=== PATIENT | female | born 1980 | race Caucasian/White ===

== ENCOUNTER → 2016-11-28 | Day surgery (SDC) | payer MEDICARE, MEDICAID ==
[~2016-11-28] VITALS: Ht 165.1 cm; Wt 72.6 kg
[~2016-11-28] MED LIST: /BACL20TA PO; /CARB20TAB PO; /PANT40TA; /PANT40TA PO; ACET500C PO; AMBI12.52 PO; B COTAB3 PO; BACL-67 PO; BUSP10TA78 PO; BUSP30TA PO; BUTA50TA PO; CALCTAB20 PO; CLON0.5T; CLON0.5T PO; COMP1TAB PO; CYCL10TA PO; CYMB60CA3 PO; DEPA500T2 PO; DICL50TA2 PO; DIVA250T PO; DIVA250T7 PO; FE T325T PO; FENT25PA TD; FENT50PA TD; FLEXERIL; FOLI1TAB2 PO; FOLI1TAB86 PO; FOLI5CAP; GABA-283 PO; GABA400C PO; GLYCOPYRROLATE INJ 0.2 MG/ML 2 ML VIAL As Ordered ONE; HYDR-3719 PO; HYDR200T3 PO; HYDR25T PO; HYDROmorphone HCL 2 MG/ML 1ML VIAL (J1170) As Ordered ONE; HYSI1TAB4 PO; IMIT100T PO; IRON65TA PO; KETO10TAB PO; KETOROLAC 30 MG/ML VIAL (J1885) As Ordered ONE; KETOROLAC 30 MG/ML VIAL (J1885) IV PRN; LEVOTAB10 PO; LIDO5DIS; LIDOCAINE 2% INJ 100 MG/5 ML SDV (FOR ANES.) As Ordered ONE; LIDOCAINE 2% W/ EPINEPHRINE 1.7 ML DENTAL INJ As Ordered ONE; LIDOCAINE 2% W/ EPINEPHRINE 1.7 ML DENTAL INJ XX ONE; LR 1,000 ML IV SCH; MAGN500T14 PO; MAXA5TAB10 PO; METH2.5T; METH2.5T PO; METH2.5TA PO; MIDAZOLAM INJ 2 MG/2 ML VIAL (J2250) As Ordered ONE; MIGR4SPR; MONT10TA2 PO; MULT1TAB18 PO; MULTTAB63 PO; NEOSTIGMINE 1MG/ML 5 ML SYRINGE (J2710) As Ordered ONE; NORCOBULK PO; NUCY50TA14 PO; OLAN2.5T PO; ONDA8TAB8 PO; ONDANSETRON 4MG/2ML VIAL (J2405) As Ordered ONE; ONDANSETRON 4MG/2ML VIAL (J2405) IV PRN; OXYC-208 PO; OXYC10TA12; OXYC15TA50; OXYC30TA4 PO; PANT40TA2 PO; PILO5TAB PO; PILO5TAB3 PO; PLAQ200T PO; PROC25SU24 PR; PROPOFOL 200 MG/20 ML VIAL As Ordered ONE; QUET30XR PO; RIZA10TA2 PO; ROBA750T4 PO; ROCURONIUM BROMIDE 50 MG/5 ML VIAL As Ordered ONE; SCOPOLAMINE 1.5 MG TRANSDERMAL As Ordered ONE; SCOPOLAMINE 1.5 MG TRANSDERMAL TOP ONE; SERO400T3 PO; SERT-138 PO; SING10TA31; SING5CHW PO; SUCR1SS PO; SUMA100T2 PO; SUMA5INJ SC; SUMA6INJ16 SC; SUMA6KIT SC; SYMB16INH INH; SYMB80AE; TEMA30CA PO; TIZA6CAP3 PO; TOPA100T PO; TOPA200T PO; TOPI200T4 PO; TOPI50TA4 PO; ULTR50TA PO; VALS40TA; VARE05TA PO; VENTAER; VITA100T PO; VITA100T98 PO; VITA8000 PO; VITAD1000T PO; XOPE1.252; XOPEAER IN; ZANT300T PO; ZOFR20TA PO; ZOFR8TAB PO; ZOLO100T PO; ZOLP12.515 PO; [UNRECOGNIZED DRUG - CODE] PO; [UNRECOGNIZED DRUG - CODE] PO; dexameTHASONE 4 MG/ML 1ML VIAL (J1100) As Ordered ONE; fentaNYL 100 MCG/2 ML INJECTION (J3010) As Ordered ONE; fentaNYL 100 MCG/2 ML INJECTION (J3010) IV PRN; fentaNYL 250 MCG/5 ML INJECTION (J3010) As Ordered ONE; flexeril PO; phenergan PO
[2016-11-28] MEDS: LR 1,000 ML IV SCH ×2 (10:54→12:19)
[2016-11-28] MEDS: fentaNYL 100 MCG/2 ML INJECTION (J3010) IV PRN ×4 (14:20→14:54)
[2016-11-28 16:45] VITALS: BP 140/68
--- NOTE | 2016-12-01 18:56 | RO ---
DATE OF PROCEDURE: 11/28/2016 PREOPERATIVE DIAGNOSIS: Nonrestorable dentition due to caries and periodontal disease of the listed teeth 3, 4, 8, 9, 10, 11, 12, 13, 14, 20, 21, 22, 23, 24, 26, and 27. POSTOPERATIVE DIAGNOSIS: Nonrestorable dentition due to caries and periodontal disease of the listed teeth 3, 4, 8, 9, 10, 11, 12, 13, 14, 20, 21, 22, 23, 24, 26, and 27. PROCEDURE PERFORMED: Surgical removal of the teeth as listed 3, 4, 8, 9, 10, 11, 12, 13, 14, 20, 21, 22, 23, 24, 26, and 27 and alveoloplasty as necessary. SURGEON: Perry Looney DDS DERMATOLOGY SALES REPRESENTATIVE: ANESTHESIA: General endotracheal. INDICATIONS: The patient is an approximately 36-year-old female with multiple medical history including fibromyalgia, back problems, rheumatoid arthritis, lupus, Sjogren's syndrome, past history of gastric bypass, and substance abuse. Patient is on multiple medications and is allergic to multiple medications as well. [place] necessary to have this procedure performed in the operating room under general anesthesia. DESCRIPTION OF PROCEDURE: Narrative summary: Patient was brought to the operating room (OR) per anesthesia and placed supine upon the OR table, wherein general endotracheal anesthesia was undertaken without difficulty. After usual sterile prep and drape for an intraoral procedure was performed, a throat pack was placed. 2% Xylocaine with 1:100,000 epinephrine was injected by way of infiltration fashion along the surgical sites, approximately 6 mL. Attention first turned to the mandible. Full-thickness mucoperiosteal incision carried from the left side to the right side, crossing the midline in the buccal sulcular gingiva. Full-thickness flap was then raised with a periosteal elevator, exposing the broken down and retained teeth (agree). The buccal bone was removed as necessary for access and to mobilize the teeth. Teeth were then elevated and delivered with lower forceps. The buccal alveoloplasty was performed as necessary. These sockets were lightly curetted, irrigated, and then closed #3-0 gut interrupted sutures, multiple. Attention then turned to the maxilla, teeth 3, 4, 8, 9, 10, 11, 12, 13, and 14. Bilateral #15 scalpel blade was used to make full-thickness incisions. With this, the buccal releases forward to the midline. Full-thickness flap was then raised with a periosteal elevator on the left side and in the area of teeth3 and 4 on the right side. Once the bone was exposed, buccal bone support was removed as necessary for access and to mobilize the broken down teeth. The teeth were then elevated and delivered with upper forceps. Buccal alveoloplasty was performed as necessary. The sockets were then lightly curetted. The areas were copiously irrigated with saline and then closed with Gelfoam as well as #3-0 gut continuous interlocking sutures. At the termination of the procedure, the oropharynx was inspected and found to be free of debris. There was no active heme. Throat pack was removed, and patient was awakened per anesthesia. The estimated blood loss (EBL) was approximately 100 mL. Fluids of 1200 mL in crystalloid solution. The teeth were sent for identification only to pathology. DISPOSITION: Patient was extubated in the operating room and taken to recovery room breathing spontaneously in stable condition.
== END | disposition home or self-care (01) ==
LOC: M SDC 10:10
PROVIDERS: ATTEND Dentist Oral and Maxillofacial Surgery
DX: K02.9 Dental caries, unspecified (principal); K06.9 Disorder of gingiva and edentulous alveolar ridge, unspecified; M79.7 Fibromyalgia; M32.10 Systemic lupus erythematosus, organ or system involvement unspecified; M35.00 Sjogren syndrome, unspecified; Z98.84 Bariatric surgery status; F17.210 Nicotine dependence, cigarettes, uncomplicated; K21.9 Gastro-esophageal reflux disease without esophagitis; J45.909 Unspecified asthma, uncomplicated; F41.9 Anxiety disorder, unspecified; F31.9 Bipolar disorder, unspecified
CPT/HCPCS: 88300; D7210; D7311; D9223; J1100; J1885; J2250; J2405; J2710; J3010

== ENCOUNTER 2017-01-19 14:56 | Emergency (ER) | payer MEDICARE, MEDICAID ==
[~2017-01-19] VITALS: Ht 165.1 cm; Wt 66.7 kg
[~2017-01-19 14:56] MED LIST changes: -GLYCOPYRROLATE INJ 0.2 MG/ML 2 ML VIAL As Ordered ONE; -HYDROmorphone HCL 2 MG/ML 1ML VIAL (J1170) As Ordered ONE; -KETOROLAC 30 MG/ML VIAL (J1885) As Ordered ONE; -KETOROLAC 30 MG/ML VIAL (J1885) IV PRN; -LIDOCAINE 2% INJ 100 MG/5 ML SDV (FOR ANES.) As Ordered ONE; -LIDOCAINE 2% W/ EPINEPHRINE 1.7 ML DENTAL INJ As Ordered ONE; -LIDOCAINE 2% W/ EPINEPHRINE 1.7 ML DENTAL INJ XX ONE; -LR 1,000 ML IV SCH; -MIDAZOLAM INJ 2 MG/2 ML VIAL (J2250) As Ordered ONE; -NEOSTIGMINE 1MG/ML 5 ML SYRINGE (J2710) As Ordered ONE; -ONDANSETRON 4MG/2ML VIAL (J2405) As Ordered ONE; -ONDANSETRON 4MG/2ML VIAL (J2405) IV PRN; -PROPOFOL 200 MG/20 ML VIAL As Ordered ONE; -ROCURONIUM BROMIDE 50 MG/5 ML VIAL As Ordered ONE; -SCOPOLAMINE 1.5 MG TRANSDERMAL As Ordered ONE; -SCOPOLAMINE 1.5 MG TRANSDERMAL TOP ONE; -dexameTHASONE 4 MG/ML 1ML VIAL (J1100) As Ordered ONE; -fentaNYL 100 MCG/2 ML INJECTION (J3010) As Ordered ONE; -fentaNYL 100 MCG/2 ML INJECTION (J3010) IV PRN; -fentaNYL 250 MCG/5 ML INJECTION (J3010) As Ordered ONE
[2017-01-19 15:00] VITALS: BP_SYST 121
[2017-01-19] MEDS ORDERED: HYDRO50TAB GT (16:23)
[2017-01-19 17:00] LABS: MEAN CORPUSCULAR HEMOGLOBIN 32.2 pg (27.0-33.0); MEAN CORPUSCULAR HGB CONC 32.8 g/dl (32.0-36.5); MEAN CORPUSCULAR VOLUME 98.1 fl (80.0-96.0); RED CELL DISTRIBUTION WIDTH 14.2 % (11.5-14.5); WHITE BLOOD COUNT 5.8 K/mm3 (4.0-10.0)
[2017-01-19 17:39] LABS: ALBUMIN 2.1 GM/DL (3.2-5.2); ALBUMIN/GLOBULIN RATIO 0.95 (1.00-1.93); ALKALINE PHOSPHATASE 111 U/L (45-117); ALT/SGPT 23 U/L (12-78); ANION GAP 5 MEQ/L (8-16); AST/SGOT 21 U/L (15-37); BILIRUBIN,DIRECT 0.1 MG/DL (0.0-0.2); BILIRUBIN,TOTAL 0.4 MG/DL (0.2-1.0); BLOOD UREA NITROGEN 9 MG/DL (7-18); CALCIUM LEVEL 7.5 MG/DL (8.5-10.1); CARBON DIOXIDE LEVEL 28 MEQ/L (21-32); CHLORIDE LEVEL 108 MEQ/L (98-107); CREATININE FOR GFR 0.78 MG/DL (0.55-1.02); GLOMERULAR FILTRATION RATE > 60.0 (>60); GLUCOSE, FASTING 98 MG/DL (70-105); POTASSIUM SERUM 4.2 MEQ/L (3.5-5.1); SODIUM LEVEL 141 MEQ/L (136-145); TOTAL PROTEIN 4.3 GM/DL (6.4-8.2)
[2017-01-19 18:28] LABS: METHADONE URINE NEGATIVE (NEGATIVE)
== END 2017-01-19 18:27 | disposition home or self-care (01) ==
LOC: M ED 17:51
DX: R44.3 Hallucinations, unspecified (principal); F31.9 Bipolar disorder, unspecified; M32.9 Systemic lupus erythematosus, unspecified; M79.7 Fibromyalgia; M19.90 Unspecified osteoarthritis, unspecified site; Z98.84 Bariatric surgery status; Z79.899 Other long term (current) drug therapy
CPT/HCPCS: 36415; 80048; 80076; 80165; 80183; 80306; 84443; 85027; 99285; G0480

== ENCOUNTER 2017-02-11 17:28 | Inpatient (IN) | payer MEDICARE, MEDICAID ==
[~2017-02-11] VITALS: Ht 165.1 cm; Wt 71.2 kg
[~2017-02-11 17:28] MED LIST changes: +HYDRO50TAB GT
[2017-02-11] MEDS ORDERED: NS 1,000 ML IV ONE (18:15)
[2017-02-11 18:33] LABS: OSMOLALITY SERUM 300 MOSM/KG (275-295)
[2017-02-11 18:41] LABS: MEAN CORPUSCULAR HEMOGLOBIN 31.6 pg (27.0-33.0); MEAN CORPUSCULAR HGB CONC 32.6 g/dl (32.0-36.5); PLATELET COUNT, AUTOMATED 418 k/mm3 (150-450); RED CELL DISTRIBUTION WIDTH 14.4 % (11.5-14.5); WHITE BLOOD COUNT 13.2 K/mm3 (4.0-10.0)
[2017-02-11 18:42] LABS: ALBUMIN 1.7 GM/DL (3.2-5.2); ALBUMIN/GLOBULIN RATIO 0.49 (1.00-1.93); ANION GAP 12 MEQ/L (8-16); BILIRUBIN,DIRECT 0.9 MG/DL (0.0-0.2); BILIRUBIN,TOTAL 1.4 MG/DL (0.2-1.0); BLOOD UREA NITROGEN 17 MG/DL (7-18); CALCIUM LEVEL 7.6 MG/DL (8.5-10.1); CARBON DIOXIDE LEVEL 24 MEQ/L (21-32); CHLORIDE LEVEL 111 MEQ/L (98-107); GLOMERULAR FILTRATION RATE 16.7 (>60); GLUCOSE, FASTING 91 MG/DL (70-105); POTASSIUM SERUM 3.7 MEQ/L (3.5-5.1); SODIUM LEVEL 147 MEQ/L (136-145); TOTAL PROTEIN 5.2 GM/DL (6.4-8.2)
--- NOTE | 2017-02-11 18:44 | REP ---
Clinical: Altered mental status . Comparison: None . Findings: The ventricles, sulci, and cisterns are normal in position and appearance. Gong-white differentiation is maintained. No acute intracranial hemorrhage, mass/mass effect, pathology or trauma/injury. No evidence for acute infarction. No extra-axial fluid collection. Calvarium is intact. Paranasal sinuses and mastoid air cells are clear. Impression: Normal noncontrast head CT. No evidence for acute intracranial pathology or trauma/injury. Signed by Jony Ley MD 02/11/2017 06:36 P
[2017-02-11 18:55] LABS: ALKALINE PHOSPHATASE 301 U/L (45-117); ALT/SGPT 1245 U/L (12-78)
[2017-02-11 18:58] LABS: VENOUS BASE EXCESS -4.2 (-2.0-2.0); VENOUS O2 SATURATION 69.3 % (60.0-80.0); VENOUS PARTIAL PRESSURE CO2 38.2 mmHg (38.0-50.0); VENOUS PARTIAL PRESSURE O2 41.4 mmHg (30.0-50.0); VENOUS STANDARD HCO3 20.5 MEQ/L
[2017-02-11 18:59] LABS: AST/SGOT 2234 U/L (15-37)
--- NOTE | 2017-02-11 19:22 | REP ---
Clinical: Altered mental status . Comparison: None . Findings: The mediastinum and cardiac silhouette are stable and within normal limits for portable technique. The lung rios are clear without acute consolidation, effusion, or pneumothorax. Skeletal structures are intact. Impression: Normal portable chest x-ray Signed by Jony Ley MD 02/11/2017 07:13 P
[2017-02-11 19:29] LABS: EOSINOPHILS 1 % (0-5)
[2017-02-11 19:30] LABS: ANISOCYTOSIS 1+; HYPOCHROMASIA 1+
[2017-02-11 19:31] LABS: TOXIC GRANULATION 1+
[2017-02-11] MEDS ORDERED: LEVOTAB10 PO (23:14)
[2017-02-11] MEDS ORDERED: CYMB60CA3 PO (23:14)
[2017-02-11] MEDS ORDERED: TOPI50TA4 PO (23:14)
[2017-02-11] MEDS ORDERED: NAPR500T2 PO (23:14)
[2017-02-11] MEDS ORDERED: DIVA500T9 PO (23:14)
[2017-02-11] MEDS ORDERED: ONDA1TAB16 PO (23:14)
[2017-02-11] MEDS ORDERED: ZOLP12.515 PO (23:14)
[2017-02-11] MEDS ORDERED: FENT50PA TD (23:14)
[2017-02-11] MEDS ORDERED: PANT40TA2 PO (23:14)
[2017-02-11] MEDS ORDERED: HYDR200T3 PO (23:14)
[2017-02-11] MEDS ORDERED: PROM25TA PO (23:14)
[2017-02-11] MEDS ORDERED: QUET300T49 PO (23:14)
[2017-02-11] MEDS ORDERED: RANI300T PO (23:14)
[2017-02-11] MEDS ORDERED: [UNRECOGNIZED DRUG - CODE] PO (23:14)
[2017-02-11] MEDS ORDERED: MIGR4SPR (23:14)
[2017-02-11] MEDS ORDERED: MONT10TA2 PO (23:14)
[2017-02-11] MEDS ORDERED: METH2.5TA PO (23:14)
[2017-02-11] MEDS ORDERED: GABA-283 PO (23:14)
[2017-02-11] MEDS ORDERED: ROBA750T4 PO (23:14)
[2017-02-11] MEDS ORDERED: HYSI1TAB4 PO (23:14)
[2017-02-11] MEDS ORDERED: HYDROXYZINE PO (23:14)
[2017-02-11] MEDS ORDERED: PILO5TAB3 PO (23:14)
[2017-02-12] VITALS (8 sets, daily range): BP systolic 90–115; BP diastolic 50–66
--- NOTE | 2017-02-12 01:00 | REPUSA ---
CLINICAL HISTORY: Medicare, colic. TECHNIQUE: Multiple axial CT images were obtained through the abdomen and pelvis. Images were obtain ed before and after oral contrast administration. Oral contrast material was not administered COMMENTS: There is diffuse hepatic hypoattenuation compatible with fatty infiltration. The spleen is normal. Status post cholecystectomy. Surgical clips are present in the left upper quadrant and epigastric re gion. The pancreas is of normal contour and attenuation characteristics. There is no evidence of ad renal mass. Both kidneys demonstrate prompt and equal nephrograms. The kidneys are normal in size, shape and con figuration. There is no evidence of renal or ureteral mass. No renal or ureteral calculi are identi fied. There is no hydroureter or hydronephrosis. No evidence for appendicitis. There is circumferential wall thickening noted involving loops of jeju num and the ileum compatible with enteritis. No evidence for small or large bowel obstruction. Ther e is no evidence of abdominal ascites or lymphadenopathy. There is no evidence of intrinsic or extrinsic bladder mass. There is no pelvic ascites or lymphaden opathy. There is patchy ground-glass opacities with mosaic attenuation noted within left and right lower lobe s. This may represent an unspecific pneumonitis versus related to hypersensitivity pneumonitis. Sma ll pericardial effusion is seen. The bony structures are free of lytic or blastic lesions. IMPRESSION: 1. There is diffuse hepatic hypoattenuation compatible with fatty infiltration. 2. Status post cholecystectomy. Surgical clips are present in the left upper quadrant and epigastri c region. 3. There is patchy ground-glass opacities with mosaic attenuation noted within left and right lower lobes. This may represent an unspecific pneumonitis versus related to hypersensitivity pneumonitis. 4. Small pericardial effusion is seen. 5. There is circumferential wall thickening noted involving loops of jejunum and the ileum compatibl e with enteritis. Thank you for your kind referral of this patient. We appreciate the opportunity to participate in th is patient's care.
[2017-02-12] MEDS ORDERED: ALBUTEROL SULFATE 2.5 MG/0.5 ML INH NEB SOLN NEB PRN (02:30)
[2017-02-12] MEDS ORDERED: D5W/0.45% SODIUM CHLORIDE 1,000 ML IV SCH (02:30)
[2017-02-12] MEDS ORDERED: NS 0.45% 1,000 ML IV ONE (02:30)
[2017-02-12] MEDS ORDERED: VANCOMYCIN HCL 750 MG, VIAL MATE ADAPTER 1 EACH in D5W 250 ML IV ONE (02:30)
[2017-02-12] MEDS ORDERED: SALA1TAB PO (02:45)
[2017-02-12] MEDS ORDERED: PROM125TA PO (02:45)
[2017-02-12] MEDS ORDERED: LORA-376 PO (02:45)
[2017-02-12] MEDS ORDERED: SUCR1SS PO (02:45)
[2017-02-12] MEDS ORDERED: NAPR250T2 PO ×2 (02:45)
[2017-02-12] MEDS ORDERED: ZOLP12.515 PO (02:45)
[2017-02-12] MEDS ORDERED: HYDR200T3 PO (02:45)
[2017-02-12] MEDS ORDERED: TOPI50TA4 PO (02:45)
[2017-02-12] MEDS ORDERED: B-2100TA PO (02:45)
[2017-02-12] MEDS ORDERED: PANT40TA2 PO (02:45)
[2017-02-12] MEDS ORDERED: METH75TA PO (02:45)
[2017-02-12] MEDS ORDERED: LEVOTAB10 PO (02:45)
[2017-02-12] MEDS ORDERED: RANI300T PO (02:45)
[2017-02-12] MEDS ORDERED: VITMTA PO (02:45)
[2017-02-12] MEDS ORDERED: HYSI1TAB4 PO (02:45)
[2017-02-12] MEDS ORDERED: QUET300T49 PO (02:45)
[2017-02-12] MEDS ORDERED: GABA-283 PO (02:45)
[2017-02-12] MEDS ORDERED: FOLI1TAB2 PO (02:45)
[2017-02-12] MEDS ORDERED: B-12100T2 PO (02:45)
[2017-02-12] MEDS ORDERED: DULO1CAP3 PO (02:45)
[2017-02-12 03:13] LABS: INR 1.48
--- NOTE | 2017-02-12 03:30 | REPUSA ---
CLINICAL HISTORY: Elevated creatinine. TECHNIQUE: Realtime sonographic images were obtained in multiple projections. COMMENTS: The right kidney measures 11.7x5.5x5.3 cm and the left kidney measures 10.3x5.1x5.5 cm. Both kidneys are free of hydronephrosis. There is no evidence of solid or cystic mass. There is no perinephric flu id. Bilateral tiny non-shadowing echogenic foci in the kidneys. IMPRESSION: Bilateral nonobstructing nephrolithiasis or cysts and calcifications of the renal vessels. No evidence of hydronephrosis. Thank you for your kind referral of this patient.
[2017-02-12 03:45] LABS: ALBUMIN 1.6 GM/DL (3.2-5.2); ALBUMIN/GLOBULIN RATIO 0.59 (1.00-1.93); ALT/SGPT 996 U/L (12-78); ANION GAP 13 MEQ/L (8-16); BILIRUBIN,TOTAL 1.2 MG/DL (0.2-1.0); BLOOD UREA NITROGEN 19 MG/DL (7-18); CARBON DIOXIDE LEVEL 21 MEQ/L (21-32); CHLORIDE LEVEL 115 MEQ/L (98-107); CREATININE FOR GFR 2.68 MG/DL (0.55-1.02); GLOMERULAR FILTRATION RATE 21.2 (>60); GLUCOSE, FASTING 94 MG/DL (70-105); PERCENT SATURATION 96.7 % (13.2-37.4); POTASSIUM SERUM 4.5 MEQ/L (3.5-5.1); SODIUM LEVEL 149 MEQ/L (136-145); TOTAL IRON BINDING CAPACITY 60 UG/DL (250-450); TOTAL PROTEIN 4.3 GM/DL (6.4-8.2)
--- NOTE | 2017-02-12 03:47 | PHACANCOPD ---
PHARMACY VANCOMYCIN DOSING Pt Demographics Demographics Patient Age:36 , Weight:66.670 , Gender: female Adjusted Body Weight Date: 02/12/17, Adjusted Body Weight: [61] Kg Events Past 24 Hours Events Past 24 Hours: NO: Change in CrCl, Dialysis, Diuretic Therapy, Elevation in WBC, Fever, Other, Pending Diagnostics, Pending Procedures Vancomycin Vancomycin Target Ranges: 15-20 mcg/ml Vancomycin Load Y/N: Yes Load Dose Date Time Vancomycin Load Dose: 1000MG Date: 02-12 Time: 0600 Vancomycin Dose Date: 02/12/17. Current Vancomycin Dose: [750MG Q24H] Intermittent Dosing?: No Labs Labs Item Value Date Time White Blood Count 13.2 K/mm3 H 02/11/17 1809 Creatinine 3.30 MG/DL H 02/11/17 1809 Blood Urea Nitrogen 17 MG/DL 02/11/17 1809 Vital Signs Label Value Date Time Patient Temperature 99.1 degrees F 02/12/17 0306 Temperature Source Temporal 02/12/17 0306 Micro Microbiology 02/12/17 Blood Culture, Received Pending 02/12/17 Blood Culture, Received Pending Creatinine Clearance Date:02/12/17. Creatinine Clearance: [22]. Pending Labs Trough 04-01 @0800 Assessment and Plan Maintaining Current Dose?: Yes Reason for dose change: No Dose Change Pharmacist Note Pharmacist Note Date: 02/12/17. Pharmacist note:Patient doses at 750mg q24h with a trough ordered for 04-01 @08. Will continue to monitor and make adjustments as needed. [facility] Feb 12, 2017 03:47
[2017-02-12 03:49] LABS: ALKALINE PHOSPHATASE 260 U/L (45-117); AST/SGOT 1218 U/L (15-37); FERRITIN 1704 NG/ML (8-252)
[2017-02-12] MEDS ORDERED: PIPERACILLIN/TAZOBACTAM SOD 2.25 GM in D5W MINI-BAG PLUS 50 ML IV SCH (04:00)
[2017-02-12] MEDS ORDERED: D5W 1,000 ML IV SCH (05:00)
[2017-02-12 05:25] LABS: INR 1.41
[2017-02-12] MEDS: HEPARIN SOD (PORCINE) 5000 UNITS/ML VIAL SQ SCH ×3 (05:37→21:46)
[2017-02-12 05:38] LABS: ALBUMIN 1.4 GM/DL (3.2-5.2); ALBUMIN/GLOBULIN RATIO 0.41 (1.00-1.93); BILIRUBIN,TOTAL 1.1 MG/DL (0.2-1.0); CALCIUM LEVEL 7.1 MG/DL (8.5-10.1); CREATININE FOR GFR 2.42 MG/DL (0.55-1.02); GLOMERULAR FILTRATION RATE 23.8 (>60); TOTAL PROTEIN 4.8 GM/DL (6.4-8.2)
[2017-02-12] MEDS ORDERED: VANCOMYCIN HCL 1,000 MG, VIAL MATE ADAPTER 1 EACH in D5W 250 ML IV ONE (06:00)
[2017-02-12 06:09] LABS: BASO % 0.2 % (0.0-1.0); EOS # 0.2 K/mm3 (0.0-0.50); EOS % 1.4 % (0.0-3.0); LARGE UNSTAINED CELL # 0.1 K/mm3 (0.0-0.4); LARGE UNSTAINED CELL % 0.9 % (0.0-4.0); LYMPH # 1.7 K/mm3 (1.5-4.5); LYMPH % 10.6 % (24.0-44.0); MEAN CORPUSCULAR HEMOGLOBIN 31.2 pg (27.0-33.0); MEAN CORPUSCULAR HGB CONC 31.7 g/dl (32.0-36.5); MEAN CORPUSCULAR VOLUME 98.3 fl (80.0-96.0); MONO # 0.4 K/mm3 (0.0-0.8); MONO % 2.6 % (0.0-5.0); NEUTROPHILS # 13.3 K/mm3 (1.8-7.7); NEUTROPHILS % 84.3 % (36.0-66.0); PLATELET COUNT, AUTOMATED 337 k/mm3 (150-450); RED CELL DISTRIBUTION WIDTH 14.7 % (11.5-14.5); WHITE BLOOD COUNT 15.8 K/mm3 (4.0-10.0)
--- NOTE | 2017-02-12 07:26 | ECGEPIP ---
Stationary ECG Study [facility] - ED Test Date: 2017-02-11 Pat Name: DESIRAE NAVARRO Department: Room: [place] [address] Gender: F Contact Lens Fitter: NOAH : 1980 Requested By: Ayse Herrera Order Number: [id number] Reading MD: Ayse Herrera Measurements Intervals [place] Rate: 121 P: 62 [place]: 140 QRS: 74 QRSD: 85 T: 57 QT: 338 QTc: 481 Interpretive Statements SINUS TACHYCARDIA NONSPECIFIC ST & T-WAVE ABNORMALITY ABNORMAL RHYTHM ECG NO PRIOR FOR COMPARISON Electronically Signed On 02-12-2017 7:26:09 EDT by Ayse Herrera
[2017-02-12 09:01] LABS: FOLATE 16.6 NG/ML; VITAMIN B12 LEVEL 1562 PG/ML
[2017-02-12] MEDS: MEROPENEM INJ 500 MG in D5W MINI-BAG PLUS 100 ML IV SCH ×2 (09:23→19:31)
--- NOTE | 2017-02-12 09:27 | REP ---
CT NECK WITHOUT CONTRAST: HISTORY: Anterior neck pain. The naso-, kaleigh- and hypopharynx, larynx and subglottic trachea are normal in appearance. The salivary and thyroid glands are normal Small lymph nodes less than 1 cm in size are present in the posterior triangle, submandibular and submental areas. Patchy densities are present in the upper lobes, consistent with atelectasis or infiltrates. The cervical spine is normal in appearance. The visualized sinuses are clear. IMPRESSION: 1. There is no neck mass or adenopathy. 2. There are patchy densities in the upper lobes, consistent with atelectasis or infiltrates. Signed by Alfredo Tamayo MD 02/12/2017 09:33 A
[2017-02-12] MEDS: PANTOPRAZOLE 40MG TAB (PROTONIX) PO SCH ×2 (09:53→21:44)
[2017-02-12 10:38] LABS: BILIRUBIN,DIRECT 0.7 MG/DL (0.0-0.2)
[2017-02-12] MEDS: D5W/0.45% SODIUM CHLORIDE 1,000 ML IV SCH ×2 (14:29→19:31)
--- NOTE | 2017-02-12 19:23 | HPE ---
DATE OF ADMISSION: 02/12/2017 Time patient seen: 2 a.m. PRIMARY CARE PROVIDER: Dr. Luciano Farah, [place]. Orthopedic Rn: [place], telephone [phone]. The patient also sees Dr. Batista at the pain clinic. The patient also sees Dr. Cuello who did the gastric bypass. The patient also saw Dr. Ayala back in 2016 for history of methicillin resistant Staphylococcus aureus (MRSA). CHIEF COMPLAINT: Altered mental status. HISTORY OF PRESENT ILLNESS: 36-year-old female with past medical history of lupus, rheumatoid arthritis, Sjogren's syndrome, asthma, migraine headache, anxiety, depression sees psychiatrist, history of gastric bypass, right hip infection with MRSA, pressure ulcers, fibromyalgia sees the pain clinic, and malnutrition presented with altered mental status. The patient was unable to provide any history due to the patient was very confused and does not follow commands. The patient does; however, know the year and where she is at and her full name. Most of the history was obtained from calling the patient's father. According to the patient's father she was okay until two months ago and she started refusing to eat food and has been more somnolent. She also was talking to an empty room and according to the father the patient slept for the past 3-4 days and she had a similar episode a year ago at [facility]; however, he could not go into details. On questioning the patient was only answering yes to everything. However, the patient was able to state that she has some sore throat and some abdominal pain. ALLERGIES: The patient has multiple allergies including KEFLEX which gives her hives and a rash, ERYTHROMYCIN gives her hives and a rash, BACTRIM hives and a rash, BUPROPION makes her nauseous, uses ESZOPICLONE with no allergy, LATEX gives her hives, VENLAFAXINE gives her hives and a rash, LISINOPRIL gives her a rash and SUMATRIPTAN makes her vomit, so does TRIMETHOPRIM. She also has allergy OMEPRAZOLE and METOCLOPRAMIDE with unknown allergy. HOME MEDICATIONS : - B12 100 mcg by mouth daily - Migranal nasal spray as needed - duloxetine 120 mg by mouth nightly - fentanyl 50 mcg one patch topically every 48 hours as needed - folic acid 2 mg by mouth daily - gabapentin 800 mg by mouth twice a day - hydrocodone 16 mg by mouth nightly - hydroxychloroquine 400 mg by mouth nightly - levocetirizine 5 mg by mouth nightly - lorazepam 0.5 mg by mouth twice a day as needed - methocarbamol 1500 mg by mouth twice a day - methotrexate 2.5 mg three tablets by mouth weekly - misoprostol 100 mcg per tablet by mouth twice a day - montelukast one tablet by mouth daily - multivitamin one tablet by mouth twice a day - Naproxen 250 mg one tablet by mouth daily - Naproxen 500 mg one tablet nightly - pantoprazole sodium 40 mg by mouth twice a day - pilocarpine 5 mg by mouth three times a day - promethazine 12.5 mg one tablet by mouth twice a day - quetiapine 600 mg one tablet by mouth nightly - amantadine one tablet by mouth daily - B2 200 mg one tablet by mouth daily - Carate 10 mL by mouth before meals and after meals - topiramate 50 mg one tablet twice a day - Ambien 12.5 mg by mouth nightly PAST MEDICAL HISTORY: 1. Lupus. 2. Rheumatoid arthritis. 3. Sjogren's syndrome. 4. Asthma. 5. Migraine headaches. 6. Anxiety, depression. 7. History of gastric bypass. 8. History of right hip infection with MRSA. 9. Pressure ulcers. 10. Fibromyalgia. 11. Malnutrition. PAST SURGICAL HISTORY: 1. Gastric bypass in 2011. 2. Tonsillectomy and adenoidectomy when the patient was 9 years old. 3. Hysterectomy 2009. SOCIAL HISTORY: The patient lives at home with her father. According to her father at baseline she was able to ambulate on her own two months ago. However, she has become more somnolent and refuses to eat for the past two months. The patient was unable to answer if she was smoking, drinking or using any recreational drugs. However, according to the chart from [facility], in April 2016 the patient used to be smoking at that time about 11 to 20 cigarettes a day. The patient denies drinking. FAMILY HISTORY: According to the patient's chart from Dr. Ayala's office in April 2016 the patient's father had Grave's disease and thyroid removal. Mother from lung cancer. REVIEW OF SYSTEMS: Could not be done due to the patient was confused and does not answer questions appropriately. PHYSICAL EXAMINATION: VITAL SIGNS: Temperature 99.1, pulse 108, respirations 18, blood pressure 87/53, oxygen saturation 97% on room air. GENERAL: The patient is a cachectic looking young female who looks much older than her age who was confused; however, was awake, alert and oriented to person, place and the year. She was unable to follow commands and was only answering yes to most of the questions. HEENT: Normocephalic atraumatic. Extraocular muscles intact. Moist mucous membranes. NECK: Supple, no lymphadenopathy. The patient does have pain on palpation of the right side of her anterior neck. CARDIOVASCULAR: Regular rate and rhythm, S1,S2, 2/6 systolic heart murmur. LUNGS: Diffuse wheezing bilaterally with some rhonchi. ABDOMEN: Tender to palpation diffusely more in the right lower quadrant; however, no peritoneal signs, no ecchymosis. Positive bowel sounds. EXTREMITIES: No edema, clubbing or cyanosis. SKIN: Warm and dry. NEURO: Cranial nerve II-XII could not be fully assessed due to patient does not follow commands. The rest of the neurological examination could not be performed due to the patient does not follow commands. LAB DATA: WBC 13.2, hemoglobin 9.7, hematocrit 29.7, platelet count of 418, MCV 97, ESR currently pending. Sodium 147, potassium 3.7, chloride 101, bicarbonate 24, anion gap 12, BUN 17, creatinine 3.3, GFR was only 16.7, fasting glucose 91, osmolality of the serum 300 appears to be elevated, lactic acid 1.9, calcium 7.6, phosphorus is pending, magnesium 2. Iron panel, B12 and folate are pending. Total bilirubin 1.4, direct bilirubin 0.9, AST 2,234, ALT 1, 245, alkaline phosphatase 301, ammonia level 24. Total CK elevated at 142, CK MB 12.1, troponin less than 0.02. Total protein 5.2, albumin 1.7 was low, B12 pending, folate pending, TSH 0.877. The patient's toxicology screen shows alcohol less than 0.003. Valproic acid was 4.3, acetaminophen 6.7. The patient had venous blood gas (VBG) in the emergency room shows pH of 7.355, PCO2 38.2, PO2 41.4, oxygen saturation was 69.3% in venous blood with base excess of negative 4.2, appears to be acidotic, PT INR is currently pending. The patient's hepatitis panel is pending. Glucose was 91, blood culture times two is pending. The patient had a CT of the head in the emergency room showing normal noncontrast head CT, no evidence of acute intracranial pathology. The patient also had a portable chest x-ray in the emergency room shows normal portable chest x-ray. The patient also had a CT of the abdomen and pelvis in the emergency department shows diffuse hepatic hypoattentuation compatible with fatty infiltrate, status post cholecystectomy, also patchy ground-glass opacity with mosaic attentuation noted within the left and right lower lobes of the lung may represent as specific pneumonitis versus related to hypersensitivity pneumonitis. Also, the patient has a small pericardial effusion. In addition, there is a circumferential wall thickening noted involving loops of jejunum and also the ileum compatible with enteritis. ASSESSMENT AND PLAN: 36-year-old female with past medical history of lupus, rheumatoid arthritis, Sjogren's syndrome, migraine headaches, asthma, anxiety depression sees a psychiatrist, history of gastric bypass due to obesity, right hip infection with methicillin resistant Staphylococcus aureus (MRSA), pressure ulcers, fibromyalgia follows in the pain clinic, malnutrition, who presented with: 1. Altered mental status, etiology unclear possibly multifactorial. The patient did have a reduced by mouth intake for the past 1-2 months. In addition the patient does appear to be polypharmacy and takes medication for lupus and rheumatoid arthritis including methotrexate and hydroxychloroquine which were both hepatotoxic and nephrotoxic. At this point the patient appears to be having hepatitis of unknown etiology and also acute kidney injury of unknown etiology. Urine toxicology screen has not come back yet. At this point we presume it is secondary to the patient's home medication combined with prerenal azotemia. Will hold the patient's medications for now due to renal and hepatotoxicity and will start the patient on a half normal saline bolus of 1 liter and continue the patient on D5 1/2 normal starting at the rate of 150 mL per hour due to poor by mouth intake for the past two months. At the same time will obtain a renal ultrasound, hepatitis panel and also obtain blood culture. The patient does have a mild leukocytosis with WBC of 13.2. In addition, the patient has mental status change, which gives the patient 2/3 for SOFA score for sepsis. We have started the patient on empiric antibiotics vancomycin and Zosyn which were renally dosed and continue to monitor the patient. Will also obtain an electroencephalogram (EEG) due to altered mental status and the patient was somnolent for 3-4 days straight at home. 2. Hypernatremia with sodium at 147. The patient's osmolality was 300. At this point it is likely secondary to prerenal azotemia. The patient has been given half normal saline 1 liter bolus. Will continue to trend patient's sodium. 3. Acute kidney injury with creatinine of 3.3. The patient's baseline is at 0.7. Therefore, likely represents acute kidney injury. Renal ultrasound has been ordered to rule out obstruction. At this point acute kidney injury is likely secondary to prerenal azotemia due to poor by mouth intake combined with taking her home medications which were renal toxic. At this point will hold all renal toxic agents, continue intravenous (IV) fluid, continue to trend the patient's creatinine and followup with renal ultrasound. 4. Acute hepatitis etiology unclear. The patient's AST is 2234, ALT 1245. Tox screen is currently incomplete; however, the patient does not have elevated alcohol, acetaminophen or valproic acid. At this point will wait for the patient's urine drug screen. Hepatitis panel is also pending. PT INR is also pending. The patient's CT of the abdomen and pelvis however does show fatty infiltrate of the liver. At this point will hold all hepatotoxic agents and continue to monitor, continue empiric antibiotics for sepsis. At this point appears to be possible severe sepsis due to blood pressure has been soft. 5. Abdominal pain. CT of the abdomen and pelvis also shows possible enteritis. At this point will empirically cover the patient with vancomycin and Zosyn due to severe sepsis and continue to monitor patient. 6. Abnormal lung sounds with bilateral wheezing. Also CT finding shows specific pneumonitis versus hypersensitivity pneumonitis. In addition the patient has been coughing. Continue empiric antibiotics. Will also obtain respiratory panel and start the patient on nebulizer due to history of asthma as well and will start oxygen if needed. 7. History of asthma. Continue nebulizer every four hours as needed . 8. History of lupus and rheumatoid arthritis, as well as Sjogren's syndrome. Follows with rheumatology in Dr Itz. Neno. Her phone number is [phone]. Will continue to monitor the patient. The patient's baseline is unclear at this point due to patient is very confused and father cannot provide a complete history. 9. History of migraine headaches. Will continue to hold the patient's medications due to patient is nothing by mouth currently due to altered mental status. 10. Anxiety, depression. Hold home medications due to the patient is nothing by mouth. 11. History of gastric bypass. We will check B12 and folate. Will actually start the patient on supplementation once the patient is able to tolerate by mouth and less confused. 12. History of right hip infection with methicillin resistant Staphylococcus aureus (MRSA). Saw Dr. Ayala back in 2016. At this point will empirically start the patient on vancomycin and Zosyn, also vancomycin was to cover history of MRSA. Continue to monitor the patient, followup with blood culture, respiratory panel, urinalysis and urine culture. 13. History of fibromyalgia. Follows in pain clinic as an outpatient. The patient is nothing by mouth due to altered mental status. Continue to monitor. 14. Malnutrition with a albumin level 1.7. Continue to monitor. Will actually need to start supplementation once the patient is less confused and able to tolerate by mouth. 15. Deep venous thrombosis (DVT): Sequential compression device and thromboembolic deterrent stockings as well as heparin 5000 units subcutaneously every 8 hours. DISPOSITION: The patient has altered mental status with unclear etiology, as well as acute kidney injury and hepatitis. At this point will continue to monitor the patient, start the patient on empiric antibiotics due to severe sepsis. Rule out etiologies for patient's acute kidney injury and acute hepatitis. The patient is likely secondary to patient's home medication methotrexate, as well as hydroxychloroquine. Currently the patient is nothing by mouth, will start the patient on diet once the patient is less confused. The patient has been discussed with attending doctor, Dr. Phillips. My preceptor for this patient encounter was Dr. Gina Phillips. The preceptor was physically present in the building during the encounter and was fully available as needed. All aspects of the patient interview, examination, medical decision making process, and medical care plan development were reviewed and approved by the preceptor. The preceptor is aware and concurs with the plan as stated in the body of this note and will attest to such by his/her co-signature.
[2017-02-12] MEDS: FOLIC ACID 1 MG TAB PO SCH (19:27)
[2017-02-12] MEDS: THIAMINE HCL 200 MG/2 ML VIAL (J3411) IV SCH (19:31)
[2017-02-13] VITALS (7 sets, daily range): BP systolic 80–134; BP diastolic 53–74
[2017-02-13] MEDS: D5W/0.45% SODIUM CHLORIDE 1,000 ML IV SCH ×2 (05:19→11:42)
[2017-02-13 05:22] LABS: BASO % 0.1 % (0.0-1.0); EOS # 0.4 K/mm3 (0.0-0.50); INR 1.15; LARGE UNSTAINED CELL # 0.2 K/mm3 (0.0-0.4); LARGE UNSTAINED CELL % 1.5 % (0.0-4.0); LYMPH # 2.1 K/mm3 (1.5-4.5); MEAN CORPUSCULAR HEMOGLOBIN 31.1 pg (27.0-33.0); MEAN CORPUSCULAR HGB CONC 31.7 g/dl (32.0-36.5); MEAN CORPUSCULAR VOLUME 98.3 fl (80.0-96.0); MONO # 0.4 K/mm3 (0.0-0.8); MONO % 3.5 % (0.0-5.0); NEUTROPHILS % 75.9 % (36.0-66.0); PLATELET COUNT, AUTOMATED 343 k/mm3 (150-450); RED CELL DISTRIBUTION WIDTH 14.5 % (11.5-14.5); WHITE BLOOD COUNT 11.9 K/mm3 (4.0-10.0)
[2017-02-13 05:23] LABS: ALBUMIN 1.5 GM/DL (3.2-5.2); ALBUMIN/GLOBULIN RATIO 0.48 (1.00-1.93); ALKALINE PHOSPHATASE 226 U/L (45-117); ALT/SGPT 576 U/L (12-78); ANION GAP 9 MEQ/L (8-16); AST/SGOT 247 U/L (15-37); BILIRUBIN,TOTAL 0.7 MG/DL (0.2-1.0); BLOOD UREA NITROGEN 13 MG/DL (7-18); CALCIUM LEVEL 7.4 MG/DL (8.5-10.1); CARBON DIOXIDE LEVEL 25 MEQ/L (21-32); CHLORIDE LEVEL 110 MEQ/L (98-107); CREATININE FOR GFR 0.88 MG/DL (0.55-1.02); GLUCOSE, FASTING 107 MG/DL (70-105); POTASSIUM SERUM 3.2 MEQ/L (3.5-5.1); SODIUM LEVEL 144 MEQ/L (136-145); TOTAL PROTEIN 4.6 GM/DL (6.4-8.2)
[2017-02-13 05:37] LABS: GLOMERULAR FILTRATION RATE > 60.0 (>60)
[2017-02-13] MEDS: HEPARIN SOD (PORCINE) 5000 UNITS/ML VIAL SQ SCH ×3 (06:00→21:51)
[2017-02-13] MEDS: MEROPENEM INJ 500 MG in D5W MINI-BAG PLUS 100 ML IV SCH ×2 (08:25→20:10)
--- NOTE | 2017-02-13 08:35 | PHACANCOPD ---
PHARMACY VANCOMYCIN DOSING Pt Demographics Demographics Patient Age:36 , Weight:63.000 , Gender: female Adjusted Body Weight Date: 02/12/17, Adjusted Body Weight: [61] Kg Events Past 24 Hours Events Past 24 Hours: YES: Change in CrCl Vancomycin Vancomycin Target Ranges: 15-20 mcg/ml Vancomycin Load Y/N: Yes Load Dose Date Time Vancomycin Load Dose: 1000MG Date: 02-12 Time: 0600 Vancomycin Dose Date: 02/13/17. Current Vancomycin Dose: [1G Q12H] Date: 02/12/17. Current Vancomycin Dose: [750MG Q24H] Intermittent Dosing?: No Labs Labs Item Value Date Time White Blood Count 15.8 K/mm3 H 02/12/17 0457 White Blood Count 11.9 K/mm3 H 02/13/17 0450 Creatinine 2.68 MG/DL H 02/12/17 0253 Creatinine 2.42 MG/DL H 02/12/17 0457 Creatinine 0.88 MG/DL # 02/13/17 0450 Micro Microbiology 02/12/17 Blood Culture - Preliminary, Resulted No growth after 24 hours . All specim... 02/12/17 Blood Culture - Preliminary, Resulted No growth after 24 hours . All specim... 02/12/17 Group A Streptococcus Screen ([facility]) - Final, Complete 02/12/17 Group A Streptococcus Screen ([facility]) - Final, Complete 02/12/17 MRSA Screen, Received Pending 02/12/17 Respiratory Virus Panel (PCR) ([facility]) - Final, Complete 02/12/17 Urine Culture, Received Pending Creatinine Clearance Date:02/13/17. Creatinine Clearance: [83.5ML/MIN.]. Date:02/12/17. Creatinine Clearance: [22]. Pending Labs Trough 02-14 @0800 Assessment and Plan Maintaining Current Dose?: No Reason for dose change: Change in serum Cr Pharmacist Note Pharmacist Note Date: 02/13/17. Pharmacist note:PT Crcl has improved to 83ml/min which is close to reported baseline. The dose is being changed to 1g q12h to accommodate this and the trough pushed back to 20:00 02/14. We will continue to monitor and adjust dose as needed. Date: 02/12/17. Pharmacist note:Patient doses at 750mg q24h with a trough ordered for 02-14 @08. Will continue to monitor and make adjustments as needed. [facility] Feb 13, 2017 08:35
[2017-02-13] MEDS ORDERED: VANCOMYCIN HCL 750 MG, VIAL MATE ADAPTER 1 EACH in D5W 250 ML IV SCH (09:00)
[2017-02-13] MEDS: FOLIC ACID 1 MG TAB PO SCH (09:00)
[2017-02-13] MEDS: PANTOPRAZOLE 40MG TAB (PROTONIX) PO SCH ×2 (09:00→21:50)
[2017-02-13] MEDS: VANCOMYCIN HCL 1,000 MG, VIAL MATE ADAPTER 1 EACH in D5W 250 ML IV SCH ×2 (10:02→21:51)
[2017-02-13] MEDS: THIAMINE HCL 200 MG/2 ML VIAL (J3411) IV SCH (10:02)
[2017-02-13] MEDS ORDERED: LORazepam 2 MG/ML VIAL (J2060) IV ONE (11:30)
[2017-02-13] MEDS ORDERED: LORazepam 2 MG/ML VIAL (J2060) As Ordered ONE (12:09)
[2017-02-13] MEDS ORDERED: LORazepam 2 MG/ML VIAL (J2060) IV STA (12:22)
[2017-02-13 12:48] LABS: GLUCOSE CSF 65 MG/DL (40-75)
[2017-02-13] MEDS: KCL 40MEQ IN D5/0.45NS 1000ML 1,000 ML IV SCH (13:29)
[2017-02-13 14:06] LABS: RBC CSF AUTO 31 /mm3 (0-0); WBC CSF AUTO 2 /mm3 (0-10)
[2017-02-13 14:07] LABS: RBC CSF AUTO 0 /mm3 (0-0); WBC CSF AUTO 0 /mm3 (0-10)
[2017-02-13 14:08] LABS: APPEARANCE, CSF CLEAR (CLEAR); COLOR, CSF COLORLESS (COLORLESS); CSF TUBE# CELL CNT TUBE 1
[2017-02-13 14:09] LABS: APPEARANCE, CSF CLEAR (CLEAR); COLOR, CSF COLORLESS (COLORLESS); CSF DIFF IF INDICATED? NO (NO); CSF TUBE# CELL CNT TUBE 4
[2017-02-13 14:10] LABS: CSF DILUENT LOT # 6165
[2017-02-13] MEDS ORDERED: FENTANYL REMOVAL DOCUMENTATION MISC XX SCH (14:30)
[2017-02-13] MEDS: fentaNYL 25 MCG/HR PATCH TOP SCH (15:05)
--- NOTE | 2017-02-13 15:46 | IPN ---
DATE: 02/13/2017 Ms. Montalvo is feeling okay this morning. Has no complaints of chest pain. Complaining of headache. No neck pain. No neck stiffness. No nausea. Temperature 99.8, maximal temperature 100.8, pulse 102, respiratory rate 22, blood pressure 107/73, 94% on 2 liters. Intake and output notable for positive fluid balance of 765. No bowel movements. Body mass index 23.1. She is awake, appropriately interactive, somewhat repetitive in her speech. Answering questions, although she is not a fantastic historian. Breathing is symmetrically diminished. Inspiratory to expiratory (I-to-E) ratio is 1:3. No wheezes, rales, or rhonchi. Speaking in complete sentences. No accessory muscle use. Heart is in a regular rate and rhythm. Is borderline tachycardic. Abdomen soft, nontender. No lower extremity edema. White count 11.9, hemoglobin 8.3, and platelets of 343. BUN 13, creatinine 0.8, potassium 3.2. AST 247, trending downward, ALT 576, trending downward, alkaline phosphatase 226, trending downward, albumin 1.5, prealbumin is 5.0. Lumbar puncture was done, which shows no white cell count, no red cell count in tube 4. ASSESSMENT: This is a 36-year-old who presented with altered mental status who now has fever. PLAN: 1. Metabolic encephalopathy. It appears to be somewhat improved, though I do not believe she is back to her baseline. I discussed this case by phone with her father. We did do a lumbar puncture today after receiving informed consent from the father by phone due to the new fever. Will continue with antibiotics at this point. Blood cultures thus far are negative. Respiratory panel negative. Will wait for cerebrospinal fluid (CSF). White cell count is trending downward. 2. Patient had hypernatremia, which is improving. 3. Patient has acute kidney injury, which is improving with intravenous (IV) hydration. Now has hypokalemia. Will be given additional potassium supplement and fluid. 4. Patient has what is most likely protein calorie malnutrition in the setting of previous history of anorexia nervosa status post gastric bypass surgery. Will place a peripherally inserted central catheter (PICC) line today and start the patient on total parenteral nutrition (TPN) given the severity of her malnutrition. She is not currently taking orals and is refusing pills as well. I believe a good portion of her presentation has to due with prolonged period of anorexia. 5. Patient had transaminitis, which is improving, most likely related to low-volume state. 6. Patient has a history of lupus and rheumatoid arthritis. Will attempt to continue some of her oral medications in this regard. 7. Patient has history of migraines. 8. Deep vein thrombosis (DVT) prophylaxis is heparin.
[2017-02-13] MEDS: SODIUM CHLORIDE 0.9% INJ 10 ML SYR IV SCH (17:21)
[2017-02-13] MEDS ORDERED: MULTIVITAMIN -ADULT INJECTION 10 ML, CR/CU/SE/MN/ZN INJ 1 ML in AMINO AC/ELECTROLYTE/DE... IV SCH (18:00)
[2017-02-13] MEDS ORDERED: FAT EMULSION IV 20% 500 ML IV SCH (18:00)
[2017-02-13] MEDS: HumaLOG INSULIN (NovoLOG) PER UNIT SC SCH (18:49)
--- NOTE | 2017-02-13 20:10 | REP ---
Procedure: PICC line insertion with Deandre-Matt The procedure was performed under the direct supervision of Dr. Koch. The risks and benefits of the procedure were explained and informed consent was obtained by the health care proxy. The right basilic vein was localized using ultrasound guidance. The skin was prepped and draped in a sterile fashion. 2% lidocaine was used as a local anesthetic. Using ultrasound guidance the basilic vein was cannulated and a 0.018 guidewire was inserted and advanced to the SVC using fluoroscopic guidance. The needle was removed and a 5.5 Barbadian dilator and peel-away sheath was inserted over the guide wire. A 5.5 Barbadian dual lumen catheter was cut to length of 40 cm. The dilator was removed and the catheter was inserted over the guide wire with the tip ending in the SVC. The peel-away sheath was removed and the catheter was flushed with heparinized saline as per Hospital protocol. The catheter was affixed to the skin and a sterile dressing was applied. The the patient tolerated the procedure well and there were no immediate complications. 0.1 minutes of fluoro time was utilized for this procedure. Reviewed by RACHAEL Aguilar 02/13/2017 04:58 PSigned by Mushtaq Koch MD 02/13/2017 08:01 P
--- NOTE | 2017-02-13 21:25 | RO ---
DATE OF PROCEDURE: 02/13/2017 PREPROCEDURE DIAGNOSIS: Fever and headache. POSTPROCEDURE DIAGNOSIS: Fever and headache. PROCEDURE: Diagnostic lumbar puncture. SURGEON: Dr. Yuki Abdalla AIRCRAFT MAINTENANCE DIRECTOR: Dr. Balwinder Mckeon ANESTHESIA: 1% local lidocaine. ESTIMATED BLOOD LOSS: Minimal. SEDATION: A total of 3 mg of Ativan on three separate occasions was given with about 10 minutes apart IV. DESCRIPTION OF PROCEDURE: The patient was placed in left lateral decubitus position with back arched, chin to the chest and knees to her abdomen. Superior iliac crest was palpated and mid spaces between the spinous process was also palpated as well between L4-L5. 1% local lidocaine was injected first superficially with subcutaneous injection then deep, drawing back to make sure there was no drawback. Subsequently, lumbar puncture needle was inserted, checking for fluid return every 1-2 mm. Fluid return was obtained. Four test tubes of cerebrospinal fluid (CSF) was obtained, clear, yellow, estimated about 8. Needle was removed, dressing was placed. The patient was placed back on her back. Nursing staff instructed to keep the patient on her bed and flat for the next 3-4 hours. The patient tolerated the procedure with no complications. Fluids were sent off for testing.
[2017-02-13] MEDS: HYDROXYCHLOROQUINE 200 MG TAB PO SCH (21:50)
[2017-02-13] MEDS: TOPIRAMATE (TopAMAX) 25 MG TAB PO SCH (21:50)
[2017-02-13] MEDS: GABAPENTIN 400 MG CAP PO SCH (21:50)
[2017-02-13] MEDS: miSOPROStol 200 MCG TAB (S0191) PO SCH (21:50)
[2017-02-14 00:06] LABS: TOPIRAMATE LEVEL 5.2 ug/mL (2.0-25.0)
[2017-02-14] MEDS: KCL 40MEQ IN D5/0.45NS 1000ML 1,000 ML IV SCH ×2 (01:13→13:33)
[2017-02-14] MEDS: HumaLOG INSULIN (NovoLOG) PER UNIT SC SCH ×4 (01:15→17:30)
[2017-02-14 01:23] VITALS: BP 122/77
[2017-02-14] MEDS ORDERED: ACETAMINOPHEN TAB 650MG DOSE (2X325MG) PO PRN (01:30)
[2017-02-14] MEDS: ACETAMINOPHEN 650 MG SUPP PR PRN ×3 (02:26→21:35)
[2017-02-14] MEDS: HEPARIN SOD (PORCINE) 5000 UNITS/ML VIAL SQ SCH ×3 (05:04→22:00)
[2017-02-14] MEDS: SODIUM CHLORIDE 0.9% INJ 10 ML SYR IV SCH ×2 (05:05→17:32)
[2017-02-14 05:27] LABS: INR 1.22
[2017-02-14 05:31] LABS: BASO % 0.2 % (0.0-1.0); EOS # 0.2 K/mm3 (0.0-0.50); EOS % 1.3 % (0.0-3.0); LARGE UNSTAINED CELL # 0.2 K/mm3 (0.0-0.4); LARGE UNSTAINED CELL % 1.9 % (0.0-4.0); LYMPH # 1.6 K/mm3 (1.5-4.5); LYMPH % 13.2 % (24.0-44.0); MEAN CORPUSCULAR HEMOGLOBIN 32.7 pg (27.0-33.0); MEAN CORPUSCULAR HGB CONC 33.9 g/dl (32.0-36.5); MEAN CORPUSCULAR VOLUME 96.2 fl (80.0-96.0); MONO # 0.4 K/mm3 (0.0-0.8); MONO % 3.3 % (0.0-5.0); NEUTROPHILS # 9.5 K/mm3 (1.8-7.7); NEUTROPHILS % 80.1 % (36.0-66.0); PLATELET COUNT, AUTOMATED 261 k/mm3 (150-450); RED CELL DISTRIBUTION WIDTH 14.6 % (11.5-14.5); WHITE BLOOD COUNT 11.9 K/mm3 (4.0-10.0)
[2017-02-14 05:55] LABS: ALBUMIN 1.3 GM/DL (3.2-5.2); ALBUMIN/GLOBULIN RATIO 0.48 (1.00-1.93); ALKALINE PHOSPHATASE 184 U/L (45-117); ALT/SGPT 339 U/L (12-78); ANION GAP 6 MEQ/L (8-16); AST/SGOT 76 U/L (15-37); BILIRUBIN,TOTAL 0.6 MG/DL (0.2-1.0); BLOOD UREA NITROGEN 7 MG/DL (7-18); CALCIUM LEVEL 6.9 MG/DL (8.5-10.1); CARBON DIOXIDE LEVEL 27 MEQ/L (21-32); CHLORIDE LEVEL 113 MEQ/L (98-107); CREATININE FOR GFR 0.49 MG/DL (0.55-1.02); GLOMERULAR FILTRATION RATE > 60.0 (>60); GLUCOSE, FASTING 133 MG/DL (70-105); POTASSIUM SERUM 3.4 MEQ/L (3.5-5.1); SODIUM LEVEL 146 MEQ/L (136-145)
[2017-02-14 06:00] VITALS: BP 114/80
--- NOTE | 2017-02-14 08:57 | REP ---
Clinical: Fever. Comparison: CT of the abdomen dated 02/11/2017. Findings: Marked bilateral ground-glass and alveolar infiltrates are appreciated along with perihilar and basilar atelectasis as well as small right lower lobe consolidation with air bronchograms. Small bilateral pleural effusions are also identified which represents a change from the lung bases on prior CT. Reactive mediastinal and hilar adenopathy noted. Thoracic aorta, heart and pericardium are normal. The surrounding musculoskeletal structures are intact. Impression: Findings suggest diffuse multifocal pneumonia including small bilateral pleural effusions with reactive adenopathy. Signed by Jony Ley MD 02/14/2017 08:48 A
[2017-02-14] MEDS: MEROPENEM INJ 500 MG in D5W MINI-BAG PLUS 100 ML IV SCH ×2 (09:21→19:41)
[2017-02-14] MEDS: miSOPROStol 200 MCG TAB (S0191) PO SCH ×2 (09:22→20:02)
[2017-02-14] MEDS: FOLIC ACID 1 MG TAB PO SCH (09:22)
[2017-02-14] MEDS: PANTOPRAZOLE 40MG TAB (PROTONIX) PO SCH ×2 (09:22→20:02)
[2017-02-14] MEDS: GABAPENTIN 400 MG CAP PO SCH ×2 (09:22→20:01)
[2017-02-14] MEDS: TOPIRAMATE (TopAMAX) 25 MG TAB PO SCH ×2 (09:22→20:02)
[2017-02-14] MEDS: THIAMINE HCL 200 MG/2 ML VIAL (J3411) IV SCH (09:23)
[2017-02-14] MEDS: VANCOMYCIN HCL 1,000 MG, VIAL MATE ADAPTER 1 EACH in D5W 250 ML IV SCH ×2 (10:06→22:00)
[2017-02-14] MEDS ORDERED: KCL 20MEQ IN 100ML SWI (KRUN) 20 MEQ in APPROPRIATE DILUENT 1 EA IV ONE ×2 (11:45)
--- NOTE | 2017-02-14 11:47 | IPN ---
DATE: 02/14/2017 Ms. Montalvo went on to have an elevated temperature last night apparently. Currently she is awake and interactive. She is not complaining of pain, cough or fever, although she is not a fantastic historian. Temperature 92.2, pulse 92, respiratory rate 14, blood pressure 114/80, 94% on 2 liters. Intake and output notable for a negative fluid balance of -305. No bowel movements noted. Weight is 62.3, body mass index (BMI) 22.9. She is awake, following simple commands. In no acute distress. Mucous membranes are tacky. Neck is supple. Breathing is symmetrical. She is not tachypneic. She does have cough with deep breathing. No wheezes. Heart is not tachycardic. Radial pulses are 2+. Capillary refill is less than 2 seconds. Regular rate and rhythm. Abdomen soft, hypoactive, nontender. No significant lower extremity edema. White cell count 11.9, hemoglobin 7.7. BUN 7, creatinine 0.49, sodium 146, potassium 3.4, AST is 76, ALT is 339, alkaline phosphatase is 184, albumin 1.3. Blood cultures are pending. My assessment is as follows: This is a 36-year-old who presented with altered mental status and now has fevers. Plan is as follows: 1. Metabolic encephalopathy. This appears to be waxing and waning, and certainly better than on the first day. Lumbar puncture was unremarkable. The underlying cause of fever is unclear, but repeat blood cultures are pending. Respiratory panel has been negative. Will await for CSF culture results and monitor clinically on broad spectrum antibiotics. Possibility of immunocompromise does occur to me. 2. Patient has hypernatremia. Will need to give some additional free water in the setting of her TPN. 3. The patient has acute kidney injury which is at baseline but does have hypokalemia. 4. The patient has protein calorie malnutrition and history of anorexia nervosa status post gastric bypass surgery. Continuing on TPN for now as her prealbumin is 5. 5. Transaminitis is improving. 6. Patient has a history of lupus and rheumatoid arthritis. May benefit from pulsed steroids, although with elevated temperature I am reticent to consider that at this point. 7. The patient has a history of migraines. 8. The patient has appropriate deep vein thrombosis (DVT) prophylaxis.
[2017-02-14] MEDS: KCL 10MEQ IN STERILE WATER 100ML IV SCH ×2 (12:34→13:32)
[2017-02-14 14:00] VITALS: BP_SYST 115; BP_SYST 116; BP_DIAS 63; BP_DIAS 81
[2017-02-14] MEDS ORDERED: FAT EMULSION IV 20% 500 ML IV SCH ×2 (18:00)
[2017-02-14] MEDS ORDERED: HumaLOG INSULIN (NovoLOG) PER UNIT SC SCH (18:00)
[2017-02-14] MEDS ORDERED: AMINO AC/ELECTROLYTE/DEX/CALC 2,000 ML IV SCH ×2 (18:00)
[2017-02-14] MEDS: HYDROXYCHLOROQUINE 200 MG TAB PO SCH (20:01)
--- NOTE | 2017-02-14 21:36 | PHACANCOPD ---
PHARMACY VANCOMYCIN DOSING Pt Demographics Demographics Patient Age:36 , Weight:62.300 , Gender: female Adjusted Body Weight Date: 02/12/17, Adjusted Body Weight: [61] Kg Events Past 24 Hours Events Past 24 Hours: NO: Change in CrCl, Dialysis, Diuretic Therapy, Elevation in WBC, Fever, Other, Pending Diagnostics, Pending Procedures Vancomycin Vancomycin Target Ranges: 15-20 mcg/ml Vancomycin Load Y/N: Yes Load Dose Date Time Vancomycin Load Dose: 1000MG Date: 02-12 Time: 0600 Vancomycin Dose Date: 02/14/17. Current Vancomycin Dose: 1000MG Q8H Intermittent Dosing?: No Labs Labs Item Value Date Time White Blood Count 11.9 K/mm3 H 02/14/17 0509 Creatinine 0.49 MG/DL L 02/14/17 0509 Vancomycin Level Trough 10.7 UG/ML 02/14/172031 Vital Signs Label Value Date Time Patient Temperature 101.2 degrees F 02/14/17 1400 Temperature Source Core 02/14/17 1400 Micro Microbiology 02/14/17 Blood Culture, Received Pending 02/14/17 Blood Culture, Received Pending 02/12/17 Blood Culture - Preliminary, Resulted No Growth after 48 hours. All Specime... 02/12/17 Blood Culture - Preliminary, Resulted No Growth after 48 hours. All Specime... 02/13/17 Gram Stain - Final, Resulted 02/13/17 CSF Culture, Resulted Pending 02/14/17 Respiratory Virus Panel (PCR) ([facility]) - Final, Complete 02/12/17 Group A Streptococcus Screen ([facility]) - Final, Complete 02/12/17 Group A Streptococcus Screen ([facility]) - Final, Complete 02/12/17 MRSA Screen - Final, Complete 02/12/17 Respiratory Virus Panel (PCR) ([facility]) - Final, Complete 02/12/17 Urine Culture - Final, Complete Creatinine Clearance Date:02/13/17. Creatinine Clearance: [83.5ML/MIN.]. Date:02/12/17. Creatinine Clearance: [22]. Pending Labs Trough 02-15 @1300 Assessment and Plan Maintaining Current Dose?: No Reason for dose change: Trough too low Pharmacist Note Pharmacist Note Date: 02/13/17. Pharmacist note:Trough of 10.7 is below target range. Dose increased to 1000mg q8h with a trough ordered for 02-15 @1300. Will continue to monitor and make adjustments as needed. [facility] Feb 14, 2017 21:36
[2017-02-14 22:00] VITALS: BP 122/66
[2017-02-15] MEDS: HumaLOG INSULIN (NovoLOG) PER UNIT SC SCH ×4 (00:33→18:49)
[2017-02-15] MEDS: KCL 40MEQ IN D5/0.45NS 1000ML 1,000 ML IV SCH ×2 (02:45→15:01)
[2017-02-15] MEDS: ACETAMINOPHEN 650 MG SUPP PR PRN ×3 (03:45→18:48)
[2017-02-15] MEDS: SODIUM CHLORIDE 0.9% INJ 10 ML SYR IV SCH ×2 (05:45→18:00)
[2017-02-15] MEDS: HEPARIN SOD (PORCINE) 5000 UNITS/ML VIAL SQ SCH ×3 (05:45→20:33)
[2017-02-15] MEDS: VANCOMYCIN HCL 1,000 MG, VIAL MATE ADAPTER 1 EACH in D5W 250 ML IV SCH ×3 (05:45→22:16)
[2017-02-15 06:00] VITALS: BP 121/71
[2017-02-15 06:00] LABS: INR 1.2
[2017-02-15 06:01] LABS: BASO % 0.2 % (0.0-1.0); EOS # 0.6 K/mm3 (0.0-0.50); EOS % 3.4 % (0.0-3.0); LARGE UNSTAINED CELL # 0.3 K/mm3 (0.0-0.4); LARGE UNSTAINED CELL % 1.6 % (0.0-4.0); LYMPH # 2.8 K/mm3 (1.5-4.5); LYMPH % 15.3 % (24.0-44.0); MEAN CORPUSCULAR HEMOGLOBIN 31.1 pg (27.0-33.0); MEAN CORPUSCULAR HGB CONC 31.4 g/dl (32.0-36.5); MONO # 0.6 K/mm3 (0.0-0.8); MONO % 3.9 % (0.0-5.0); NEUTROPHILS # 12.3 K/mm3 (1.8-7.7); NEUTROPHILS % 75.6 % (36.0-66.0); PLATELET COUNT, AUTOMATED 219 k/mm3 (150-450); WHITE BLOOD COUNT 16.3 K/mm3 (4.0-10.0)
[2017-02-15 06:24] LABS: ALBUMIN 1.2 GM/DL (3.2-5.2); ALBUMIN/GLOBULIN RATIO 0.44 (1.00-1.93); ALKALINE PHOSPHATASE 165 U/L (45-117); ALT/SGPT 202 U/L (12-78); ANION GAP 6 MEQ/L (8-16); AST/SGOT 66 U/L (15-37); BILIRUBIN,TOTAL 0.5 MG/DL (0.2-1.0); BLOOD UREA NITROGEN 7 MG/DL (7-18); CALCIUM LEVEL 7.2 MG/DL (8.5-10.1); CARBON DIOXIDE LEVEL 26 MEQ/L (21-32); CHLORIDE LEVEL 113 MEQ/L (98-107); CREATININE FOR GFR 0.39 MG/DL (0.55-1.02); GLOMERULAR FILTRATION RATE > 60.0 (>60); GLUCOSE, FASTING 97 MG/DL (70-105); POTASSIUM SERUM 4.1 MEQ/L (3.5-5.1); SODIUM LEVEL 145 MEQ/L (136-145); TOTAL PROTEIN 3.9 GM/DL (6.4-8.2)
[2017-02-15] MEDS: MEROPENEM INJ 500 MG in D5W MINI-BAG PLUS 100 ML IV SCH ×2 (08:56→20:22)
[2017-02-15] MEDS: THIAMINE HCL 200 MG/2 ML VIAL (J3411) IV SCH (08:56)
[2017-02-15] MEDS: TOPIRAMATE (TopAMAX) 25 MG TAB PO SCH ×2 (08:57→20:32)
[2017-02-15] MEDS: FOLIC ACID 1 MG TAB PO SCH (08:57)
[2017-02-15] MEDS: PANTOPRAZOLE 40MG TAB (PROTONIX) PO SCH ×2 (08:57→20:32)
[2017-02-15] MEDS: miSOPROStol 200 MCG TAB (S0191) PO SCH ×2 (08:57→20:32)
[2017-02-15] MEDS: GABAPENTIN 400 MG CAP PO SCH ×2 (08:57→20:32)
--- NOTE | 2017-02-15 09:02 | IPN ---
DATE OF SERVICE: 02/15/2017 Ms. Montalvo is more awake and interactive today. Quite engaged in our conversation. She is not complaining of any pain. She says she is not hungry and would like to go home. Temperature 100.1, maximum temperature (Tmax) yesterday was 101.4, pulse 109, respiratory rate 16, blood pressure 121/71, 95% on 3 liters. Intake and output (I and O) notable for a positive fluid balance of 2814 with two bowel movements noted yesterday. She is awake and appropriately interactive. Appears much more vigorous than the last few days Mucous membranes are tacky. Neck is supple. Breathing is symmetrical. She is taking shallow breaths. She is not coughing. I-to-E ratio is 1:4. Heart is in a regular rate and rhythm. Heart rate is not tachycardic on my examination. Abdomen soft, doughy, nontender. White cell count 16.3, with a hemoglobin of 6.8, and platelets of 219. Potassium is 4.1, AST 66, ALT 202, alkaline phosphatase is 165, which are all improved from previous. My assessment is as follows: This is a 36-year-old who presented with altered mental status and now has fevers. The plan is as follows: 1. Metabolic encephalopathy. This appears to be improving. The patient did have a lumbar puncture during her stay, which was unremarkable. There is concern about a possible underlying infectious etiology at this presentation. Chest CT done yesterday shows diffuse multifocal pneumonia with small bilateral pleural effusions and reactive adenopathy. She is not coughing or producing sputum and appears to be in more reasonable respiratory status. I have added doxycycline for atypical pneumonia, even though respiratory screen has been negative times two. The patient may benefit from a course of steroids if this is related to her underlying autoimmune disorders. C-reactive protein (CRP) at the beginning of her stay was 11.6. Will add on a CRP today. 2. The patient has developing anemia, which appears to be anemia of chronic disease. I have asked for a stool occult blood to be sent. Will transfuse a unit of blood. Informed consent was obtained from her father. Even though her mental status is improving, I do not believe she has a capacity to make that type of decision today. 3. The patient has hypernatremia, which is resolving. 4. The patient has protein-calorie malnutrition. Is on total parenteral nutrition (TPN), which will be continued. 5. The patient's transaminitis is improving. 6. The patient has a history of lupus and rheumatoid arthritis. Again, considering steroids. Will consult pulmonology as infectious etiology seems less likely. 7. The patient has a history of migraines. 8. The patient has deep vein thrombosis (DVT) prophylaxis. [facility]
[2017-02-15] MEDS: DOXYCYCLINE HYCLATE 100 MG in D5W MINI-BAG PLUS 100 ML IV SCH ×2 (09:45→20:18)
[2017-02-15 14:00] VITALS: BP 96/68
[2017-02-15] MEDS ORDERED: FAT EMULSION IV 20% 500 ML IV SCH (18:00)
[2017-02-15] MEDS ORDERED: AMINO AC/ELECTROLYTE/DEX/CALC 2,000 ML IV SCH (18:00)
[2017-02-15] MEDS: HYDROXYCHLOROQUINE 200 MG TAB PO SCH (20:32)
[2017-02-15 22:00] VITALS: BP 132/89
[2017-02-16] MEDS: KCL 40MEQ IN D5/0.45NS 1000ML 1,000 ML IV SCH (03:45)
[2017-02-16 06:00] VITALS: BP 125/89
[2017-02-16] MEDS: SODIUM CHLORIDE 0.9% INJ 10 ML SYR IV SCH ×2 (06:00→17:59)
[2017-02-16] MEDS: HEPARIN SOD (PORCINE) 5000 UNITS/ML VIAL SQ SCH ×3 (06:24→20:56)
[2017-02-16] MEDS: HumaLOG INSULIN (NovoLOG) PER UNIT SC SCH ×4 (06:25→17:59)
[2017-02-16] MEDS: VANCOMYCIN HCL 1,000 MG, VIAL MATE ADAPTER 1 EACH in D5W 250 ML IV SCH ×3 (06:25→22:11)
[2017-02-16 06:53] LABS: INR 1.25
[2017-02-16] MEDS: TOPIRAMATE (TopAMAX) 25 MG TAB PO SCH ×2 (08:28→20:56)
[2017-02-16] MEDS: PANTOPRAZOLE 40MG TAB (PROTONIX) PO SCH ×2 (08:28→20:56)
[2017-02-16] MEDS: miSOPROStol 200 MCG TAB (S0191) PO SCH ×2 (08:28→20:56)
[2017-02-16] MEDS: FOLIC ACID 1 MG TAB PO SCH (08:28)
[2017-02-16] MEDS: GABAPENTIN 400 MG CAP PO SCH ×2 (08:28→20:56)
[2017-02-16] MEDS: MEROPENEM INJ 500 MG in D5W MINI-BAG PLUS 100 ML IV SCH ×2 (08:29→20:55)
--- NOTE | 2017-02-16 09:11 | IPN ---
DATE: 02/16/2017 Ms. Montalvo is much more interactive this morning. She calls me by name when I walk by her room in the hallway. She would really like to go home. She is still not eating very much and she has not really been out of bed moving around. Temperature 99.4, pulse 111, respiratory rate 16, blood pressure 125/89, 95% on room air. Input and output notable for a negative fluid balance of minus 105. She is having multiple bowel movements. She is awake, experiencing some pauses in her speech which could be thought blocking. Patient remains tachy. Neck supple. Breathing is symmetrical, rested. There are no wheezes, rales or rhonchi. Heart: Regular rate and rhythm. Abdomen: Soft, hyperactive bowel sounds. Patient has been incontinent of stool. Labs are still pending this morning. ASSESSMENT: This 36-year-old presented with metabolic encephalopathy with fevers. PLAN: 1. Metabolic encephalopathy. This appears to be improving. Patient had a lumbar puncture during her stay which was unremarkable. Chest CT showed multifocal pneumonia. HIV is negative. Patient has no significant respiratory symptoms. I did add doxycycline. Respiratory sputum has been negative times two. Her presentation would be considered consistent with viral illness given her mental status changes, her change in LFTs and her findings on lung exam. CRP is pending. 2. Patient has worsening anemia, was given a transfusion yesterday, we are awaiting results of repeat CBC today. Hemoccult stool is negative. 3. Patient had hypernatremia. Will continue to follow labs. 4. Patient has protein calorie malnutrition. Has anorexia in the setting of previous gastric bypass surgery. Continue to encourage oral intake. Await nutrition consultation for further input. 5. Patient's transaminase has been improving. Labs are pending. 6. Patient has a history of lupus, rheumatoid arthritis, again may benefit from steroids. 7. Patient is stooling quite a bit which could be antibiotic associated diarrhea. Possibility of Clostridium difficile does occur to me. I will send stool for Clostridium difficile although the patient does not have abdominal discomfort. 8. Patient has a history of migraines. 9. Patient has deep venous thrombosis (DVT) prophylaxis. 10. Based on general debility, patient may require subacute rehabilitation at the time of discharge. [facility]
[2017-02-16 10:02] LABS: MEAN CORPUSCULAR HEMOGLOBIN 30.3 pg (27.0-33.0); MEAN CORPUSCULAR VOLUME 94.7 fl (80.0-96.0); PLATELET COUNT, AUTOMATED 207 k/mm3 (150-450); RED CELL DISTRIBUTION WIDTH 16.8 % (11.5-14.5)
[2017-02-16 10:03] LABS: BASO % 0.6 % (0.0-1.0); EOS % 2.4 % (0.0-3.0); LARGE UNSTAINED CELL % 2.2 % (0.0-4.0); LYMPH # 1.4 K/mm3 (1.5-4.5); LYMPH % 11.2 % (24.0-44.0); MONO % 4.8 % (0.0-5.0); NEUTROPHILS % 78.8 % (36.0-66.0); WHITE BLOOD COUNT 12.5 K/mm3 (4.0-10.0)
[2017-02-16 10:04] LABS: BASO # 0.1 K/mm3 (0.0-0.2); EOS # 0.3 K/mm3 (0.0-0.50); LARGE UNSTAINED CELL # 0.3 K/mm3 (0.0-0.4); MONO # 0.6 K/mm3 (0.0-0.8); NEUTROPHILS # 9.9 K/mm3 (1.8-7.7)
[2017-02-16] MEDS: THIAMINE HCL 200 MG/2 ML VIAL (J3411) IV SCH (10:24)
[2017-02-16] MEDS: DOXYCYCLINE HYCLATE 100 MG in D5W MINI-BAG PLUS 100 ML IV SCH ×2 (10:24→22:11)
[2017-02-16 10:37] LABS: ALBUMIN 1.5 GM/DL (3.2-5.2); ALBUMIN/GLOBULIN RATIO 0.36 (1.00-1.93); ALKALINE PHOSPHATASE 180 U/L (45-117); ALT/SGPT 155 U/L (12-78); ANION GAP 7 MEQ/L (8-16); AST/SGOT 91 U/L (15-37); BILIRUBIN,TOTAL 0.8 MG/DL (0.2-1.0); BLOOD UREA NITROGEN 8 MG/DL (7-18); CALCIUM LEVEL 8.4 MG/DL (8.5-10.1); CARBON DIOXIDE LEVEL 23 MEQ/L (21-32); CHLORIDE LEVEL 110 MEQ/L (98-107); CREATININE FOR GFR 0.45 MG/DL (0.55-1.02); GLOMERULAR FILTRATION RATE > 60.0 (>60); GLUCOSE, FASTING 115 MG/DL (70-105); POTASSIUM SERUM 4.1 MEQ/L (3.5-5.1); SODIUM LEVEL 140 MEQ/L (136-145); TOTAL PROTEIN 5.7 GM/DL (6.4-8.2)
[2017-02-16 11:43] LABS: ERYTHROCYTE SEDIMENTATION RATE 106 mm/hr (0-20)
[2017-02-16] MEDS: HALOPERIDOL 5 MG/ML VIAL (J1630) IV PRN ×2 (12:49→22:14)
[2017-02-16] MEDS: ONDANSETRON 4MG/2ML VIAL (J2405) IV PRN (12:49)
[2017-02-16 13:17] VITALS: BP 105/76
[2017-02-16 14:00] VITALS: BP 123/80
[2017-02-16] MEDS ORDERED: methylPREDNISolone INJ 125 MG/2 ML VIAL (J2930) IV ONE (14:30)
[2017-02-16] MEDS: fentaNYL 25 MCG/HR PATCH TOP SCH (14:30)
[2017-02-16] MEDS: ACETAMINOPHEN TAB 650MG DOSE (2X325MG) PO PRN ×2 (16:02→22:21)
[2017-02-16] MEDS ORDERED: FAT EMULSION IV 20% 500 ML IV SCH (18:00)
[2017-02-16] MEDS ORDERED: MULTIVITAMIN -ADULT INJECTION 10 ML, CR/CU/SE/MN/ZN INJ 1 ML in AMINO AC/ELECTROLYTE/DE... IV SCH (18:00)
[2017-02-16] MEDS: methylPREDNISolone INJ 125 MG/2 ML VIAL (J2930) IV SCH (20:55)
[2017-02-16] MEDS: HYDROXYCHLOROQUINE 200 MG TAB PO SCH (20:56)
[2017-02-16 22:00] VITALS: BP 124/68
[2017-02-17] MEDS: methylPREDNISolone INJ 125 MG/2 ML VIAL (J2930) IV SCH ×4 (02:10→20:00)
[2017-02-17] MEDS: HEPARIN SOD (PORCINE) 5000 UNITS/ML VIAL SQ SCH ×3 (05:45→21:48)
[2017-02-17] MEDS: SODIUM CHLORIDE 0.9% INJ 10 ML SYR IV SCH ×2 (05:45→18:04)
[2017-02-17] MEDS: VANCOMYCIN HCL 1,000 MG, VIAL MATE ADAPTER 1 EACH in D5W 250 ML IV SCH (05:45)
[2017-02-17] MEDS: HumaLOG INSULIN (NovoLOG) PER UNIT SC SCH ×4 (05:54→18:05)
[2017-02-17 06:00] VITALS: BP 119/81
--- NOTE | 2017-02-17 06:39 | EEG ---
DATE OF PROCEDURE: 02/13/2017 REFERRING PHYSICIAN: Dr. Balwinder Mckeon DIAGNOSIS: Altered mental status. EEG NUMBER: [id number]. HISTORY: Patient is a 36-year-old woman who was admitted at [facility] due to altered mental status. She has been refusing to eat food and has been more somnolent. She was also talking to an empty room. She had been sleeping for the last 2 or 3 days. She is currently on vancomycin, meropenem, multivitamin, total parenteral nutrition (TPN), Protonix, folic acid, thiamine, Ativan. TECHNICAL DESCRIPTION: This digital EEG was recorded by 21 scalp, ear and two EKG electrodes and was reviewed in bipolar and referential montages following reformatting in 10-20 international electrode placement system. INTERPRETATION: Patient was noted to be in awake and drowsy states during this EEG. Resting awake background rhythm consisted of 5-6 Hz theta activity measuring 15-50 microvolts in amplitude. Stage I and II sleep were reviewed and were symmetric bilaterally. Hyperventilation could not be performed. Photic stimulation remained unremarkable. EKG revealed normal sinus rhythm. No focal, lateralizing or epileptiform abnormalities were seen. No clinical or electrographic seizures were recorded. CONCLUSION: This EEG in awake, stage I and II sleep is abnormal due to presence of generalized slowing and disorganization of background consistent with nonspecific diffuse cerebral dysfunction such as seen in encephalopathy due to multiple potential causes including toxic, metabolic, medication related, autoimmune, infectious or multifocal structural abnormalities. No epileptiform abnormalities were seen. Clinical correlation is recommended.
[2017-02-17] MEDS: ACETAMINOPHEN TAB 650MG DOSE (2X325MG) PO PRN ×4 (06:41→23:11)
[2017-02-17] MEDS: PANTOPRAZOLE 40MG TAB (PROTONIX) PO SCH ×2 (08:56→21:27)
[2017-02-17] MEDS: THIAMINE HCL 200 MG/2 ML VIAL (J3411) IV SCH (08:57)
[2017-02-17] MEDS: MEROPENEM INJ 500 MG in D5W MINI-BAG PLUS 100 ML IV SCH (08:57)
[2017-02-17] MEDS: TOPIRAMATE (TopAMAX) 25 MG TAB PO SCH ×2 (08:57→21:25)
[2017-02-17] MEDS: GABAPENTIN 400 MG CAP PO SCH ×2 (08:58→21:25)
[2017-02-17] MEDS: miSOPROStol 200 MCG TAB (S0191) PO SCH ×2 (08:58→21:25)
[2017-02-17] MEDS: FOLIC ACID 1 MG TAB PO SCH (08:58)
[2017-02-17] MEDS: SYMBICORT 160/4.5MCG INHALER 6GM INH SCH ×2 (09:00→20:05)
[2017-02-17] MEDS ORDERED: FUROSEMIDE 40 MG/4 ML VIAL (J1940) IV ONE (10:00)
[2017-02-17] MEDS: DOXYCYCLINE HYCLATE 100 MG in D5W MINI-BAG PLUS 100 ML IV SCH ×2 (10:35→21:28)
--- NOTE | 2017-02-17 11:14 | CR ---
DATE OF CONSULTATION: 02/17/2017 ATTENDING PHYSICIAN: Yehuda Pope DO PRIMARY CARE PROVIDER: Dr. Farah HISTORY OF PRESENT ILLNESS: Patient is a 36-year-old female with a past medical history of possible lupus or Sjogren syndrome and rheumatoid arthritis, migraines, reported asthma, anxiety, history of gastric bypass. She presented to the hospital on 02/12/2017 with altered mental status. The patient was unable to provide a history of why she was at the hospital and was not alert and oriented on admission. Today, the patient is alert and oriented to time, place, and person but still has very little memory of coming to the hospital. She complaints consist of some chest tightness on the left side and she describes as feeling different than before. Denies any chest pain or palpitations, shortness of breath or cough. Does report that it does feel tough to breathe in and out, as if the chest was tight. Denies productive cough. Does report having history of migraines that affect her frequently and are affected by light and sound. Denies any migraines today. Has reported a decreased appetite and is not eating or drinking as much as before. She was not eating or drinking much outside of the hospital. Just reports that she does not have an appetite, which is not different than before. She does have a history of gastric bypass and a recent history in the last 4 weeks of dentition removal. ALLERGIES: The patient has reported allergies to KEFLEX, ERYTHROMYCIN, BACTRIM, BUPROPION, LASIX. MEDICATIONS: - acetaminophen - albuterol sulfate inhaler - Symbicort - folic acid - gabapentin - haloperidol - heparin - hydroxychloroquine sulfate - Lispro insulin - Solu-Medrol - misoprostol - Zofran - Protonix - thiamine - Topamax - naproxen - promethazine PAST MEDICAL HISTORY: Reported: 1. Asthma. 2. Migraine headaches. 3. Possible lupus, rheumatoid or Sjogren syndrome. 4. Anxiety and depression. 5. History of gastric bypass. 6. History of right hip infection with methicillin-resistant Staphylococcus aureus (MRSA). PAST SURGICAL HISTORY: 1. Gastric bypass. 2. Tonsillectomy. 3. Hysterectomy. 4. Dental extraction. SOCIAL HISTORY: The patient lives at home with father in [facility]. Former smoker. REVIEW OF SYSTEMS: Were difficult to obtain due to the patient's current mental status and confusion. PHYSICAL EXAMINATION: Vital signs: Temperature 100.9, pulse 111, respiratory rate 18, blood pressure 96/68, pulse oximetry 92% on room air. General appearance: The patient was alert and oriented to person, time, and place. Was unable to remember arriving to the hospital. Was unable to answer some questions on examination. HEENT: Mucous membranes were dry. Extraocular muscles intact. No lymphadenopathy. Pupils dilated 8 mm but reactive Cardiovascular: Regular rate and rhythm. Normal S1 and S2. No murmur, rub, or gallop. No lower extremity edema, no elevated jvp. Lungs: Clear to ausculation anteriorly. Posteriorly there was an expiratory wheeze on the right and bibasilar crackles. Abdomen: Normoactive bowel sounds. Tender to palpation right upper quadrant without rebound or guarding. No mass or hernia. quadrant in epigastric area. No guarding, rebound, or rigidity. Extremities: No edema in upper or lower extremities. No cyanosis or clubbing Skin: Very dry and tight. No rash or juandice. Musculoskeletal: some muscle wasting. no joint effusion or fracture Neuro: no unilateral weakness. no seizure activity. LABORATORY DATA: The patient's C-reactive protein was 10.8, which is up from 9.04. Creatinine was at 0.45 today when it was 3.30 on admission. Albumin was 1.5 and total protein 5.7. Hemoglobin today was 10.7, hematocrit 33.4, platelets 207. White blood cell count 12.5. Erythrocyte sedimentation rate (ESR) was 106. The patient had a negative respiratory virus panel, as well as negative blood cultures after 5 days. Clostridium (C) difficile panel was negative. Stool occult panel negative. Methicillin-resistant Staphylococcus aureus (MRSA) negative. Cerebrospinal fluid (CSF) gram stain was negative, and culture had no growth. IMAGING: Chest CT on 02/14/2017 showed bilateral ground-glass opacities. It showed dependent edema and bilateral pleural effusions. There was a small consolidation in the right lower lobe. ASSESSMENT AND PLAN: At this time, the patient's differential diagnoses includes pulmonary edema secondary to hypoalbuminemia and total parenteral nutrition (TPN ) administration versus an acute inflammatory interstitial lung disease. This is based on the patient's CT of chest on 02/14/2017. Currently, waiting for previous chart from prosecuting attorney to help with acute inflammatory disorder. The current plan is to encourage protein intake orally and not rely on intravenous (IV) fluids. Plan on diuresing the patient one time today with Lasix, as the patient is Lasix naive. While in the hospital, the patient has had an intake total net positive of 6.2 liters. The patient has gained weight from admission. The patient's weight on admission was 66 kg and is now 72 kg. This is all from mostly IV fluids, TPN, and very little oral intake. The patient has a reported history of asthma and will be prescribing the patient Symbicort and a rescue inhaler. Will follow the patient and repeat chest CT in 2 days for resolution of pulmonary edema or interstitial lung disease. Follow the patient as needed. My preceptor for this patient encounter was Yehuda Pope DO. The preceptor was physically present in the room during the encounter and was fully available. As needed, all aspects of the patient interview, examination, medical decision making process, and medical care plan development were reviewed and approved by the preceptor. The preceptor is aware and concurs with the plan as stated in the body of this note and will attest to such by his/her cosignature. I, Yehuda Pope, agree with the assessment and plan as outlined above. The patient has ground glass infiltrate on cxr which could either be ild from her history of connective tissue disease or pulmonary edema from hypoalbuminemia and ivf administration. Plan is to diurese and continue steroids. Patient is not significantly hypoxic at this time. WOuld follow up with repeat imaging and if abnormalities persist may need biopsy. GURJITD
--- NOTE | 2017-02-17 11:24 | IPNPDOC ---
Subjective Date Seen The patient was seen on 02/17/17. Subjective Chief Complaint/HPI The patient is a 36-year-old female admitted with a reason for visit of Ams, Hypotenstion. General: Denies: Chills, Fatigue, Malaise, Night Sweats, Normal Appetite, Other Symptoms, ROS Unobtainable Constitutional: Denies: Chills, Fatigue, Fever, Lethargy, Malaise, Night Sweats , Other, Weakness, Weight Loss Eyes: Denies: Conjunctivae inflammation, Eyelid inflammation, Other, Pain, Redness, Vision change ENT: Denies: Dysphagia, Ear Pain, Epistaxis, Head Aches, Other Symptoms, Post Nasal Drip, Sinus Congestion, Sore Throat Skin: Denies: Breakdown, Bruising, Dry, Itching, Jaundice, Lesions, Nail Changes, Other, Rash Pulmonary: Denies: Cough, Dyspnea, Other Symptoms, Pleuritic Chest Pain Cardiovascular: Denies: Chest Pain, Edema, Lt Headedness, Orthopnea, Other Symptoms, Palpitations, Paroxysmal Noc. Dyspnea Gastrointestinal: Denies: Abdominal Pain, Constipation, Diarrhea, Hematochezia , Melena, Nausea, Other Symptoms, Vomiting Objective Physical Examination General Exam: Positive: Alert, Cooperative, No Acute Distress Eye Exam: Positive: Conjunctiva & lids normal, EOMI, PERRLA (dilated pupils 4- 5mm), Negative: Sclera icteric ENT Exam: Positive: Atraumatic, Mucous membr. moist/pink, Other ENT (edentulous ) Neck Exam: Positive: Supple Chest Exam: Positive: Diminished, Other (bilateral crackles), Negative: Clear to auscultation Heart Exam: Positive: Rate Normal, Regular Rhythm Abdomen Exam: Positive: Normal bowel sounds, Soft, Negative: Tenderness Psych Exam: Positive: Oriented x 3 Assessment /Plan Problems (1) Abnormal CT of the chest Status: Acute Discussed With: Retail Parts Professional, Patient Problem Specific Plan: Consult Specialist, Monitor Clinically, Repeat Labs Problem Text: Appears to be significant amount of pulmonary edema. Will diurese with lasix one time dose today, evaluate response. Likely few more days of lasix. Discussed with pulmo, assistance appreciated. Will de-escalate anti-microbial coverage and follow clinically. Continue doxycycline. (2) Anemia Status: Chronic Discussed With: Patient Problem Specific Plan: Repeat Labs (3) Altered mental state Status: Acute Response to Treatment: Improving Discussed With: Patient Problem Specific Plan: Monitor Clinically Problem Text: Likely TME. EEG noted. (4) Lupus Status: Chronic Discussed With: Patient Problem Text: Continue Plaquenil. (5) Rheumatoid arthritis Status: Chronic Discussed With: Patient Problem Specific Plan: Monitor Clinically Problem Text: MTX on hold. Continue steroids. To obtain records from filter cloth maker. (6) Sjogrens syndrome Status: Chronic Problem Specific Plan: Monitor Clinically (7) Asthma Status: Chronic (8) Migraine Status: Chronic (9) Anxiety and depression Status: Chronic (10) H/O gastric bypass Status: Chronic (11) Fibromyalgia Status: Chronic (12) Hypernatremia Status: Chronic (13) Transaminitis Status: Chronic Response to Treatment: Improving Problem Specific Plan: Repeat Labs (14) Protein calorie malnutrition Status: Chronic Discussed With: Patient Problem Specific Plan: Monitor Clinically, Repeat Labs Problem Text: Receiving TPN. Monitor pre/albumin. (15) Diarrhea Status: Chronic Problem Text: CDiff negative. Diarrhea improving. Likely enteritis. Plan/VTE VTE Prophylaxis Ordered?: Yes (heparin SC) Plan/Urinary Catheter Reason for insertion/continuin: Acute obstruct/retention Plan Diet: Continue Current, Advance Therapy: PT, OT Medications: Taper Antibiotics, Taper Steroids Respiratory: Wean Oxygen Diagnostics: Repeat Labs in AM Anticipated Discharge: Home With Services, Assisted Living Patient persistent regarding discharging home today. States she is able to administer TPN and IV antibiotics at home. VS, I&O, 24H, [facility] Vital Signs/I&O Vital Signs Date Time Temp Pulse Resp B/P Pulse Ox O2 Delivery O2 Flow Rate FiO2 02/17/17 06:00 98.4 102 16 119/81 95 Nasal Cannula 2.0 I&O- Last 24 Hours up to 6 AM 02/17/17 06:00 Intake Total 3470 ml Output Total 2450 ml Balance 1020 ml Laboratory Data 24H LABS Laboratory Tests 2 02/16/17 09:29: Blood Urea Nitrogen 8, Creatinine 0.45L, Sodium Level 140, Potassium Level 4.1, Chloride Level 110H, Carbon Dioxide Level 23, Calcium Level 8.4#L, Aspartate Amino Transf (AST/SGOT) 91H, Alanine Aminotransferase (ALT/SGPT) 155H, Alkaline Phosphatase 180H, Total Bilirubin 0.8#, Total Protein 5.7#L, Albumin 1.5#L, Albumin/Globulin Ratio 0.36L, Anion Gap 7L, White Blood Count 12.5H, Red Blood Count 3.53L, Hemoglobin 10.7#L, Hematocrit 33.4L, Mean Corpuscular Volume 94.7, Mean Corpuscular Hemoglobin 30.3, Mean Corpuscular Hemoglobin Concent 32.0, Red Cell Distribution Width 16.8H, Platelet Count 207, Neutrophils (%) (Auto) 78.8H , Lymphocytes (%) (Auto) 11.2L, Monocytes (%) (Auto) 4.8, Eosinophils (%) (Auto ) 2.4, Basophils (%) (Auto) 0.6, Neutrophils # (Auto) 9.9H, Lymphocytes # (Auto ) 1.4L, Monocytes # (Auto) 0.6, Eosinophils # (Auto) 0.3, Basophils # (Auto) 0.1 , C-Reactive Protein, Quantitative 10.80H, Erythrocyte Sedimentation Rate 106H, Glomerular Filtration Rate > 60.0, Large Unclassified Cells # 0.3, Large Unclassified Cells % 2.2 02/16/17 11:41: Bedside Glucose (Misc Panel) 115H 02/16/17 16:47: Bedside Glucose (Misc Panel) 138H 02/17/17 05:46: Bedside Glucose (Misc Panel) 132H CBC/BMP Laboratory Tests 02/16/17 09:29 Calcium Level 8.4 #L, Aspartate Amino Transf (AST/SGOT) 91 H, Alanine Aminotransferase (ALT/SGPT) 155 H, Alkaline Phosphatase 180 H, Total Bilirubin 0.8 #, Total Protein 5.7 #L, Albumin 1.5 #L, Red Blood Count 3.53 L, Mean Corpuscular Volume 94.7, Mean Corpuscular Hemoglobin 30.3, Mean Corpuscular Hemoglobin Concent 32.0, Red Cell Distribution Width 16.8 H, Neutrophils (%) ( Auto) 78.8 H, Lymphocytes (%) (Auto) 11.2 L, Monocytes (%) (Auto) 4.8, Eosinophils (%) (Auto) 2.4, Basophils (%) (Auto) 0.6, Neutrophils # (Auto) 9.9 H , Lymphocytes # (Auto) 1.4 L, Monocytes # (Auto) 0.6, Eosinophils # (Auto) 0.3, Basophils # (Auto) 0.1 Microbiology Microbiology 02/14/17 Blood Culture - Preliminary, Resulted No Growth after 48 hours. All Specime... 02/14/17 Blood Culture - Preliminary, Resulted No Growth after 72 hours. All specime... 02/12/17 Blood Culture - Final, Complete NO GROWTH AFTER 5 DAYS 02/12/17 Blood Culture - Final, Complete NO GROWTH AFTER 5 DAYS 02/13/17 Gram Stain - Final, Complete 02/13/17 CSF Culture - Final, Complete 02/16/17 Clostridium difficile (PCR) - Final, Complete 02/15/17 Stool Occult Blood (GUNNRE) - Final, Complete 02/14/17 Respiratory Virus Panel (PCR) (GUNNER) - Final, Complete 02/12/17 Group A Streptococcus Screen (GUNNER) - Final, Complete 02/12/17 Group A Streptococcus Screen (GUNNER) - Final, Complete 02/12/17 MRSA Screen - Final, Complete 02/12/17 Respiratory Virus Panel (PCR) (GUNNER) - Final, Complete 02/12/17 Urine Culture - Final, Complete ASTER BALDERRAMA MD Feb 17, 2017 07:43
[2017-02-17 14:00] VITALS: BP 124/87
[2017-02-17] MEDS: SODIUM CHLORIDE 0.9% INJ 10 ML SYR IV PRN (14:01)
[2017-02-17] MEDS ORDERED: FAT EMULSION IV 20% 500 ML IV SCH (18:00)
[2017-02-17] MEDS ORDERED: AMINO AC/ELECTROLYTE/DEX/CALC 2,000 ML IV SCH (18:00)
[2017-02-17] MEDS: HALOPERIDOL 5 MG/ML VIAL (J1630) IV PRN (18:04)
[2017-02-17] MEDS: HYDROXYCHLOROQUINE 200 MG TAB PO SCH (21:26)
[2017-02-17 22:00] VITALS: BP 112/71
[2017-02-18] MEDS: HumaLOG INSULIN (NovoLOG) PER UNIT SC SCH ×2 (00:25→06:30)
[2017-02-18] MEDS: HALOPERIDOL 5 MG/ML VIAL (J1630) IV PRN ×4 (00:26→23:32)
[2017-02-18] MEDS: ALBUTEROL 90 MCG/ACT 8GM HFA INHALER INH PRN ×3 (00:48→23:30)
[2017-02-18] MEDS: methylPREDNISolone INJ 125 MG/2 ML VIAL (J2930) IV SCH (01:11)
[2017-02-18] MEDS: HEPARIN SOD (PORCINE) 5000 UNITS/ML VIAL SQ SCH ×3 (05:02→22:00)
[2017-02-18] MEDS: ACETAMINOPHEN TAB 650MG DOSE (2X325MG) PO PRN ×4 (05:02→21:57)
[2017-02-18 06:00] VITALS: BP 125/97
[2017-02-18] MEDS: SODIUM CHLORIDE 0.9% INJ 10 ML SYR IV SCH ×2 (06:00→16:52)
[2017-02-18 06:03] LABS: MEAN CORPUSCULAR HGB CONC 32.5 g/dl (32.0-36.5); MEAN CORPUSCULAR VOLUME 92.5 fl (80.0-96.0); RED CELL DISTRIBUTION WIDTH 16.4 % (11.5-14.5); WHITE BLOOD COUNT 17.2 K/mm3 (4.0-10.0)
[2017-02-18 06:27] LABS: ALBUMIN 1.6 GM/DL (3.2-5.2); ALBUMIN/GLOBULIN RATIO 0.47 (1.00-1.93); ALKALINE PHOSPHATASE 165 U/L (45-117); ALT/SGPT 150 U/L (12-78); ANION GAP 10 MEQ/L (8-16); AST/SGOT 96 U/L (15-37); BILIRUBIN,TOTAL 0.3 MG/DL (0.2-1.0); CALCIUM LEVEL 7.9 MG/DL (8.5-10.1); CARBON DIOXIDE LEVEL 21 MEQ/L (21-32); CHLORIDE LEVEL 107 MEQ/L (98-107); GLOMERULAR FILTRATION RATE > 60.0 (>60); GLUCOSE, FASTING 112 MG/DL (70-105); SODIUM LEVEL 138 MEQ/L (136-145)
[2017-02-18 06:45] LABS: BLOOD UREA NITROGEN 19 MG/DL (7-18)
[2017-02-18] MEDS: SYMBICORT 160/4.5MCG INHALER 6GM INH SCH ×2 (07:25→20:23)
--- NOTE | 2017-02-18 08:13 | IPNPDOC ---
Subjective Date Seen The patient was seen on 02/18/17. Subjective Chief Complaint/HPI The patient is a 36-year-old female admitted with a reason for visit of Ams, Hypotenstion. General: Denies: Chills, Fatigue, Malaise, Night Sweats, Normal Appetite, Other Symptoms, ROS Unobtainable Constitutional: Denies: Chills, Fatigue, Fever, Lethargy, Malaise, Night Sweats , Other, Weakness, Weight Loss Eyes: Denies: Conjunctivae inflammation, Eyelid inflammation, Other, Pain, Redness, Vision change ENT: Denies: Dysphagia, Ear Pain, Epistaxis, Head Aches, Other Symptoms, Post Nasal Drip, Sinus Congestion, Sore Throat Skin: Denies: Breakdown, Bruising, Dry, Itching, Jaundice, Lesions, Nail Changes, Other, Rash Pulmonary: Reports: Cough, Denies: Dyspnea, Other Symptoms, Pleuritic Chest Pain Cardiovascular: Denies: Chest Pain, Edema, Lt Headedness, Orthopnea, Other Symptoms, Palpitations, Paroxysmal Noc. Dyspnea Gastrointestinal: Denies: Abdominal Pain, Constipation, Diarrhea, Hematochezia , Melena, Nausea, Other Symptoms, Vomiting Genitourinary: Denies: Dysuria, Frequency, Hematuria, Incontinence, Other Symptoms, Retention Hematologic: Denies: Bleeding Excessively, Bruising, Enlarged Lymph Nodes, Other Hematologic, Petecchia, Purpura Endocrine: Denies: Cold Intolerance, Heat Intolerance, Other Endocrine Sx, Polydipsia, Polyphagia, Polyuria Objective Physical Examination General Exam: Positive: Alert, Cooperative, No Acute Distress Eye Exam: Positive: Conjunctiva & lids normal, EOMI, PERRLA, Negative: Sclera icteric ENT Exam: Positive: Atraumatic, Mucous membr. moist/pink, Other ENT (edentulous ) Neck Exam: Positive: Supple Chest Exam: Positive: Diminished, Other (bilateral crackles), Negative: Clear to auscultation Heart Exam: Positive: Rate Normal, Regular Rhythm Abdomen Exam: Positive: Normal bowel sounds, Soft, Negative: Tenderness Psych Exam: Positive: Oriented x 3 Assessment /Plan Problems (1) Abnormal CT of the chest Status: Acute Discussed With: Manager Labor Relations, Patient Problem Specific Plan: Consult Specialist, Monitor Clinically, Repeat Labs Problem Text: Appears to be significant amount of pulmonary edema. Elevated BNP. Started lasix 40IV BID. Discussed with pulmo, assistance appreciated. Continue doxycycline. (2) Anemia Status: Chronic Discussed With: Patient Problem Specific Plan: Repeat Labs (3) Altered mental state Status: Acute Response to Treatment: Improving Discussed With: Patient Problem Specific Plan: Monitor Clinically Problem Text: Likely TME. EEG noted. (4) Lupus Status: Chronic Discussed With: Patient Problem Text: Continue Plaquenil. (5) Rheumatoid arthritis Status: Chronic Discussed With: Patient Problem Specific Plan: Monitor Clinically Problem Text: MTX on hold. Continue steroids. To obtain records from marketing research analyst. (6) Sjogrens syndrome Status: Chronic Problem Specific Plan: Monitor Clinically (7) Asthma Status: Chronic (8) Migraine Status: Chronic (9) Anxiety and depression Status: Chronic (10) H/O gastric bypass Status: Chronic (11) Fibromyalgia Status: Chronic (12) Hypernatremia Status: Chronic (13) Transaminitis Status: Chronic Response to Treatment: Improving Problem Specific Plan: Repeat Labs Problem Text: Improving. (14) Protein calorie malnutrition Status: Chronic Discussed With: Patient Problem Specific Plan: Monitor Clinically, Repeat Labs Problem Text: Receiving TPN. Monitor pre/albumin. (15) Diarrhea Status: Chronic Problem Text: CDiff negative. Diarrhea improving. Likely enteritis. Plan/VTE VTE Prophylaxis Ordered?: Yes (heparin SC) Plan/Urinary Catheter Reason for insertion/continuin: Acute obstruct/retention Plan Diet: Continue Current, Advance Therapy: PT, OT Medications: Taper Antibiotics, Taper Steroids Respiratory: Wean Oxygen Diagnostics: Repeat Labs in AM Anticipated Discharge: Home With Services, Assisted Living Discontinue TPN. Continue doxycycline. IV lasix. PT/OT. PFS. Patient really wants to go home. States she has family for support, and services in place. VS, I&O, 24H, [facility] Vital Signs/I&O Vital Signs Date Time Temp Pulse Resp B/P Pulse Ox O2 Delivery O2 Flow Rate FiO2 02/18/17 06:00 99.0 99 16 125/97 99 Room Air 02/17/17 06:00 2.0 I&O- Last 24 Hours up to 6 AM 02/18/17 06:00 Intake Total 3620 ml Output Total 1300 ml Balance 2320 ml Laboratory Data 24H LABS Laboratory Tests 2 02/17/17 12:01: Bedside Glucose (Misc Panel) 137H 02/17/17 17:05: Bedside Glucose (Misc Panel) 149H 02/18/17 00:18: Bedside Glucose (Misc Panel) 193H 02/18/17 05:52: Blood Urea Nitrogen 19#H, Creatinine 0.40L, Sodium Level 138, Potassium Level 4.0, Chloride Level 107, Carbon Dioxide Level 21, Calcium Level 7.9L, Aspartate Amino Transf (AST/SGOT) 96H, Alanine Aminotransferase (ALT/SGPT) 150H, Alkaline Phosphatase 165H, Total Bilirubin 0.3#, Total Protein 5.0L, Albumin 1.6L, Albumin/Globulin Ratio 0.47L, Anion Gap 10, Glomerular Filtration Rate > 60.0 02/18/17 06:06: Bedside Glucose (Misc Panel) 113H 02/18/17 06:43: B-Type Natriuretic Peptide 2940H CBC/BMP Laboratory Tests 02/18/17 05:52 Calcium Level 7.9 L, Aspartate Amino Transf (AST/SGOT) 96 H, Alanine Aminotransferase (ALT/SGPT) 150 H, Alkaline Phosphatase 165 H, Total Bilirubin 0.3 #, Total Protein 5.0 L, Albumin 1.6 L, Red Blood Count 2.90 L, Mean Corpuscular Volume 92.5, Mean Corpuscular Hemoglobin 30.0, Mean Corpuscular Hemoglobin Concent 32.5, Red Cell Distribution Width 16.4 H Microbiology Microbiology 02/14/17 Blood Culture - Preliminary, Resulted No Growth after 72 hours. All specime... 02/14/17 Blood Culture - Preliminary, Resulted No Growth after 72 hours. All specime... 02/12/17 Blood Culture - Final, Complete NO GROWTH AFTER 5 DAYS 02/12/17 Blood Culture - Final, Complete NO GROWTH AFTER 5 DAYS 02/13/17 Gram Stain - Final, Complete 02/13/17 CSF Culture - Final, Complete 02/16/17 Clostridium difficile (PCR) - Final, Complete 02/15/17 Stool Occult Blood (GUNNER) - Final, Complete 02/14/17 Respiratory Virus Panel (PCR) (GUNNER) - Final, Complete 02/12/17 Group A Streptococcus Screen (GUNNER) - Final, Complete 02/12/17 Group A Streptococcus Screen (GUNNER) - Final, Complete 02/12/17 MRSA Screen - Final, Complete 02/12/17 Respiratory Virus Panel (PCR) (GUNNER) - Final, Complete 02/12/17 Urine Culture - Final, Complete ASTER BALDERRAMA MD Feb 18, 2017 08:13
[2017-02-18] MEDS: THIAMINE HCL 200 MG/2 ML VIAL (J3411) IV SCH (09:00)
[2017-02-18] MEDS: predniSONE 20 MG TAB PO SCH (09:00)
[2017-02-18] MEDS: DOXYCYCLINE HYCLATE 100 MG in D5W MINI-BAG PLUS 100 ML IV SCH ×2 (10:05→22:00)
[2017-02-18] MEDS: FUROSEMIDE 40 MG/4 ML VIAL (J1940) IV SCH ×2 (10:06→17:18)
[2017-02-18] MEDS: FOLIC ACID 1 MG TAB PO SCH (10:07)
[2017-02-18] MEDS: GABAPENTIN 400 MG CAP PO SCH ×2 (10:07→21:56)
[2017-02-18] MEDS: PANTOPRAZOLE 40MG TAB (PROTONIX) PO SCH ×2 (10:07→21:57)
[2017-02-18] MEDS: TOPIRAMATE (TopAMAX) 25 MG TAB PO SCH ×2 (10:07→21:56)
[2017-02-18] MEDS: miSOPROStol 200 MCG TAB (S0191) PO SCH ×2 (10:08→21:57)
[2017-02-18] MEDS: ONDANSETRON 4MG/2ML VIAL (J2405) IV PRN (11:58)
--- NOTE | 2017-02-18 13:45 | REP ---
TWO VIEW CHEST: Two views of the chest are performed and compared to a prior study of 02/11/2017. There is mild left lower lung infiltrate. There is mild right upper lung infiltrate with moderate degree of right lower lung infiltrate. Heart is not enlarged. Right arm PICC line is seen with the tip at the junction of the superior vena cava and right atrium. IMPRESSION: Bilateral infiltrates. Signed by Dawson Gong MD 02/18/2017 05:39 P
[2017-02-18 14:00] VITALS: BP 92/64
[2017-02-18] MEDS: SODIUM CHLORIDE 0.9% INJ 10 ML SYR IV PRN (14:51)
[2017-02-18] MEDS: HYDROXYCHLOROQUINE 200 MG TAB PO SCH (21:56)
[2017-02-18 22:00] VITALS: BP 119/84
[2017-02-19] MEDS: SODIUM CHLORIDE 0.9% INJ 10 ML SYR IV SCH (05:04)
[2017-02-19] MEDS: HEPARIN SOD (PORCINE) 5000 UNITS/ML VIAL SQ SCH (05:04)
[2017-02-19 05:27] LABS: MEAN CORPUSCULAR HEMOGLOBIN 30.3 pg (27.0-33.0); MEAN CORPUSCULAR HGB CONC 32.9 g/dl (32.0-36.5); RED CELL DISTRIBUTION WIDTH 16.4 % (11.5-14.5); WHITE BLOOD COUNT 14.4 K/mm3 (4.0-10.0)
[2017-02-19 05:58] LABS: ALBUMIN 1.6 GM/DL (3.2-5.2); ALKALINE PHOSPHATASE 150 U/L (45-117); ALT/SGPT 138 U/L (12-78); ANION GAP 7 MEQ/L (8-16); AST/SGOT 71 U/L (15-37); BILIRUBIN,TOTAL 0.4 MG/DL (0.2-1.0); BLOOD UREA NITROGEN 19 MG/DL (7-18); CALCIUM LEVEL 7.7 MG/DL (8.5-10.1); CARBON DIOXIDE LEVEL 26 MEQ/L (21-32); CHLORIDE LEVEL 107 MEQ/L (98-107); CREATININE FOR GFR 0.51 MG/DL (0.55-1.02); GLOMERULAR FILTRATION RATE > 60.0 (>60); GLUCOSE, FASTING 65 MG/DL (70-105); POTASSIUM SERUM 3.3 MEQ/L (3.5-5.1); SODIUM LEVEL 140 MEQ/L (136-145); TOTAL PROTEIN 4.8 GM/DL (6.4-8.2)
[2017-02-19 06:00] VITALS: BP 117/74
[2017-02-19] MEDS ORDERED: POTASSIUM CHLORIDE 10 MEQ SR TABLET PO ONE (07:00)
[2017-02-19 07:10] LABS: MAGNESIUM LEVEL 2.1 MG/DL (1.8-2.4)
[2017-02-19] MEDS: SYMBICORT 160/4.5MCG INHALER 6GM INH SCH (07:39)
[2017-02-19] MEDS: DOXYCYCLINE HYCLATE 100 MG in D5W MINI-BAG PLUS 100 ML IV SCH (09:19)
[2017-02-19] MEDS: FUROSEMIDE 40 MG/4 ML VIAL (J1940) IV SCH (09:19)
[2017-02-19] MEDS: THIAMINE HCL 200 MG/2 ML VIAL (J3411) IV SCH (09:19)
[2017-02-19] MEDS: miSOPROStol 200 MCG TAB (S0191) PO SCH (09:20)
[2017-02-19] MEDS: GABAPENTIN 400 MG CAP PO SCH (09:20)
[2017-02-19] MEDS: ACETAMINOPHEN TAB 650MG DOSE (2X325MG) PO PRN (09:20)
[2017-02-19] MEDS: PANTOPRAZOLE 40MG TAB (PROTONIX) PO SCH (09:20)
[2017-02-19] MEDS: predniSONE 20 MG TAB PO SCH (09:20)
[2017-02-19] MEDS: TOPIRAMATE (TopAMAX) 25 MG TAB PO SCH (09:20)
[2017-02-19] MEDS: FOLIC ACID 1 MG TAB PO SCH (09:21)
[2017-02-19] MEDS ORDERED: THIA50CA PO (10:40)
[2017-02-19] MEDS ORDERED: PRED10TA PO (10:40)
[2017-02-19] MEDS ORDERED: PROA1AER INH (10:47)
--- NOTE | 2017-02-20 10:54 | DS.PDOC ---
Discharge Summary General Date of Admission Feb 12, 2017 at 02:14 Date of Discharge Feb 19, 2017 at 13:44 Primary Care Physician: Johnnie Farah Specialist/Consultants Involve: LIBERTAD YOON Specialist/Consultants Involve PCP Dr. Luciano Farah, [place], [place] Discharge Summary PROCEDURES PERFORMED DURING STAY: [None]. DISCHARGE DIAGNOSES: 1. Pulmonary edema 2. Anemia 3. Protein calorie malnutrition 4. AMS - TME 5. Lupus 6. Rheumatoid arthritis 7. Sjogrens 8. Asthma 9. Migraine 10. Anxiety/depression 11. History of gastric bypass 12. Fibromyalgia 13. Hypernatremia - chronic 14. Gastroenteritis COMPLICATIONS/CHIEF COMPLAINT: Ams,Hypotension. HOSPITAL COURSE: 36 yo female with extensive medical history as indicated brought in to hospital by family for altered mental status/lethargy. Patient was admitted for further evaluation and treatment. She was found to be in PARAS with transaminitis on admission. Her PARAS/transaminitis responded well to IV fluids, resolved on discharge. Her AMS also resolved, and was deemed to secondary to toxic metabolic encephalopathy. Her MTX was stopped on admission, resumed on discharge. CT chest showed abnormal findings, initially presumed to be multi-focal pneumonia, and broad spectrum antibiotics were started, and pulmonology was consulted. Her CT chest findings were deemed to be pulmonary edema. As such her antimicrobial therapy was discontinued, and parenteral diuresis was implemented for a short duration. Patient was saturating well on room air. Hospital also significant for protein calorie malnutrition, patient with very poor appetite. TPN was started for a short duration. Patient was encouraged to increase her PO intake. Patient was very eager to return home, stating she does better at home. She did require 2 days of physical therapy for gait dysfunction. Hospital stay was also significant for anemia, requiring PRBC transfusion. Stool for occult blood negative, likely secondary to AOCD. DISCHARGE MEDICATIONS: Please see below. ALLERGIES: Please see below. PHYSICAL EXAMINATION ON DISCHARGE: VITAL SIGNS: Please see below. GENERAL: NAD HEENT: NC/AT, EOMI, PERRL NECK: supple CARDIOVASCULAR EXAMINATION: +S1S2, RRR RESPIRATORY EXAMINATION: minimal bibasilar crackles ABDOMINAL EXAMINATION: soft, NT, +BS EXTREMITIES: no edema PSYCHIATRIC EXAMINATION: AAOx3 LABORATORY DATA: Please see below. IMAGING: EEG CONCLUSION: This EEG in awake, stage I and II sleep is abnormal due to presence of generalized slowing and disorganization of background consistent with nonspecific diffuse cerebral dysfunction such as seen in encephalopathy due to multiple potential causes including toxic, metabolic, medication related, autoimmune, infectious or multifocal structural abnormalities. No epileptiform abnormalities were seen. Clinical correlation is recommended. CT Chest Impression: Findings suggest diffuse multifocal pneumonia including small bilateral pleural effusions with reactive adenopathy. PROGNOSIS: Somewhat guarded given her poor nutritional status and multiple co- morbidities ACTIVITY: [As tolerated]. DIET: Encourage PO intake DISPOSITION: Home Health Service. DISCHARGE INSTRUCTIONS: 1. Follow up PCP as scheduled 2. Follow up pulmonary in 4 weeks. 3. Medications as directed. ITEMS TO FOLLOWUP ON ON OUTPATIENT: 1. Repeat CXR DISCHARGE CONDITION: [Stable]. TIME SPENT ON DISCHARGE: Greater than 30 minutes. Vital Signs/I&Os Vital Signs Date Time Temp Pulse Resp B/P Pulse Ox O2 Delivery O2 Flow Rate FiO2 02/19/17 06:00 98.6 94 18 117/74 92 Room Air 02/17/17 06:00 2.0 I&O- Last 24 Hours up to 6 AM 02/20/17 06:00 Intake Total 600 ml Output Total 200 ml Balance 400 ml Microbiology Microbiology 02/14/17 Blood Culture - Final, Complete NO GROWTH AFTER 5 DAYS 02/14/17 Blood Culture - Final, Complete NO GROWTH AFTER 5 DAYS 02/12/17 Blood Culture - Final, Complete NO GROWTH AFTER 5 DAYS 02/12/17 Blood Culture - Final, Complete NO GROWTH AFTER 5 DAYS 02/13/17 Gram Stain - Final, Complete 02/13/17 CSF Culture - Final, Complete 02/16/17 Clostridium difficile (PCR) - Final, Complete 02/15/17 Stool Occult Blood (GUNNER) - Final, Complete 02/14/17 Respiratory Virus Panel (PCR) (GUNNER) - Final, Complete 02/12/17 Group A Streptococcus Screen (GUNNER) - Final, Complete 02/12/17 Group A Streptococcus Screen (GUNNER) - Final, Complete 02/12/17 MRSA Screen - Final, Complete 02/12/17 Respiratory Virus Panel (PCR) (GUNNER) - Final, Complete 02/12/17 Urine Culture - Final, Complete Discharge Medications Scheduled Cyanocobalamin (B-12) 100 Mcg Tab 100 MCG PO DAILY (Reported) Duloxetine Hcl (Duloxetine HCl) 60 Mg Cap 120 MG PO QHS (Reported) Fentanyl (Fentanyl) 50 Mcg Tdsy 1 PATCH TD Q48HP (Reported) Folic Acid (Folic Acid) 1 Mg Tab 2 MG PO DAILY (Reported) Gabapentin (Gabapentin) 400 Mg Cap 800 MG PO BID (Reported) Hydroxychloroquine Sulfate (Hydroxychloroquine Sulfat) 200 Mg Tab 400 MG PO QHS (Reported) Levocetirizine Hydrochloride (Levocetirizine Dihydrochl) 5 Mg Tab 5 MG PO QHS ( Reported) Methocarbamol (Methocarbamol) 750 Mg Tab 1,500 MG PO BID (Reported) Methotrexate (Methotrexate) 2.5 Mg Tab 3 TAB PO QWEEK (Reported) Misoprostol (Misoprostol) 100 Mcg Tab 2 TABS PO BID (Reported) Montelukast Sodium (Montelukast Sodium) 10 Mg Tab 1 TAB PO DAILY (Reported) Multivitamins *[facility] STOCKED* (Thera M Plus *[facility] STOCKED*) 1 Tab Tab 1 TAB PO BID (Reported) Pantoprazole Sodium (Pantoprazole Sodium) 40 Mg Tab 40 MG PO BID (Reported) Pilocarpine HCl (Salagen) 5 Mg Tab 5 MG PO TID (Reported) Prednisone (Prednisone) 10 Mg Tab 10 MG PO ASDIRECTED Quetiapine Fumarate (Quetiapine Fumarate ER) 300 Mg Tab 600 MG PO QHS (Reported ) Ranitidine HCl (Ranitidine HCl) 300 Mg Tab 1 TAB PO DAILY (Reported) Riboflavin (B-2) 100 Mg Tab 200 MG PO DAILY (Reported) Sucralfate (Carafate) 1 Gm/10 Ml Marlene 10 ML PO ACHS (Reported) 4 times per day on an empty stomach 1 hour before meals and at bedtime Thiamine HCl (Thiamine) 50 Mg Cap 100 MG PO DAILY Topiramate (Topiramate) 50 Mg Tab 50 MG PO BID (Reported) Zolpidem Tartrate (Zolpidem Tartrate ER) 12.5 Mg Tab 12.5 MG PO QHS (Reported) Scheduled PRN Albuterol Sulfate (Proair Hfa) 108 Mcg/Act Aer 1 PUFF INH Q4HP PRN PRN SHORTNESS OF BREATH Dihydroergotamine Mesylate (Migranal) 4 Mg/Ml Spr 1 SPRAY NA ASDIRECTED PRN PRN MIGRAINE (Reported) TAKE ONE SPRAY ONSET OF MIGRANE, CAN REPEAT IN 15 MINUTES, MDD: 4 SPRAYS Lorazepam (Lorazepam) 0.5 Mg Tab 0.5 MG PO BID PRN PRN ANXIETY (Reported) Promethazine HCl (Promethazine HCl) 12.5 Mg Tab 12.5 MG PO BID PRN PRN NAUSEA ( Reported) Allergies Coded Allergies: Cephalexin (Verified Allergy, Intermediate, HIVES AND RASH, 02/11/17) Erythromycin (Verified Allergy, Intermediate, HIVES AND RASH, 02/11/17) Sulfa Drugs (Verified Allergy, Intermediate, RASH AND HIVES, 02/11/17) Sulfamethoxazole w/Trimethoprim (Verified Allergy, Intermediate, RASH AND HIVES, 02/11/17) Bupropion (Verified Allergy, Unknown, nausea, 02/11/17) Eszopiclone (Verified Allergy, Unknown, 02/11/17) Latex (Verified Allergy, Unknown, hives, 02/11/17) Levofloxacin (Verified Allergy, Unknown, HIVES AND RASH, 02/11/17) Lisinopril (Verified Allergy, Unknown, rash, 02/11/17) Metoclopramide (Verified Allergy, Unknown, 02/11/17) Omeprazole (Verified Allergy, Unknown, 02/11/17) Sumatriptan (Verified Allergy, Unknown, vomiting, 02/11/17) Trimethoprim (Verified Allergy, Unknown, vomiting, 02/11/17) ASTER BALDERRAMA MD Feb 20, 2017 10:53
== END 2017-02-19 13:44 | disposition home health service (06) | DRG 545 ==
LOC: M ED 20:47 → M ED INP 02-12 02:14 → M ICU 02-12 03:29 → M MS5PR 02-13 15:10
PROVIDERS: ADMIT Internal Medicine; ATTEND Internal Medicine
PROC: 009U3ZX Drainage of Spinal Canal, Percutaneous Approach, Diagnostic (ICD-10-PCS; principal; 2017-02-13)
PROC: 02HV33Z Insertion of Infusion Device into Superior Vena Cava, Percutaneous Approach (ICD-10-PCS; 2017-02-13)
DX: M32.13 Lung involvement in systemic lupus erythematosus (principal); G93.41 Metabolic encephalopathy; J18.1 Lobar pneumonia, unspecified organism; N17.9 Acute kidney failure, unspecified; B17.9 Acute viral hepatitis, unspecified; E46 Unspecified protein-calorie malnutrition; E87.0 Hyperosmolality and hypernatremia; K52.9 Noninfective gastroenteritis and colitis, unspecified; J45.909 Unspecified asthma, uncomplicated; M79.7 Fibromyalgia; M06.9 Rheumatoid arthritis, unspecified; F41.9 Anxiety disorder, unspecified; F32.9 Major depressive disorder, single episode, unspecified; D64.9 Anemia, unspecified; G43.909 Migraine, unspecified, not intractable, without status migrainosus; R26.89 Other abnormalities of gait and mobility; Z79.899 Other long term (current) drug therapy; Z88.8 Allergy status to other drugs, medicaments and biological substances; Z91.040 Latex allergy status; Z88.2 Allergy status to sulfonamides; E87.6 Hypokalemia; Z88.1 Allergy status to other antibiotic agents

== ENCOUNTER → 2017-03-21 | Outpatient (CLI) | payer MEDICARE, MEDICAID ==
[~2017-03-21] MED LIST changes: +B-12100T2 PO; +B-2100TA PO; +DIVA500T9 PO; +DULO1CAP3 PO; +HYDROXYZINE PO; +LORA-376 PO; +METH75TA PO; +NAPR250T2 PO; +NAPR500T2 PO; +ONDA1TAB16 PO; +PRED10TA PO; +PROA1AER INH; +PROM125TA PO; +PROM25TA PO; +QUET300T49 PO; +QUET50TA PO; +RANI300T PO; +SALA1TAB PO; +THIA50CA PO; +VITMTA PO; +compazine PO
--- NOTE | 2017-03-22 07:37 | REP ---
CHEST, TWO VIEWS: HISTORY: Followup. COMPARISON: 02/18/2017 The PICC line catheter has been removed. The superior mediastinal structures are midline. The cardiac silhouette is unremarkable in size, shape and position. The diaphragmatic surfaces of the lungs are regular and the costophrenic angles are clear. The pulmonary rios are clear. The imaged osseous structures are intact. IMPRESSION: There is no acute cardiopulmonary disease. The abnormal patchy opacities have resolved. Signed by Ishaan Rivera DO 03/22/2017 09:54 A
== END ==
LOC: M LRY 12:36
PROVIDERS: ATTEND Nurse Practitioner Family
DX: R09.89 Other specified symptoms and signs involving the circulatory and respiratory systems (principal)
CPT/HCPCS: 71020; G0463; J2930

== ENCOUNTER 2017-04-20 17:31 | Emergency (ER) | payer MEDICARE, MEDICAID ==
[~2017-04-20] VITALS: Ht 165.1 cm; Wt 50.8 kg
[~2017-04-20 17:31] MED LIST changes: -QUET50TA PO; -compazine PO
[2017-04-20] MEDS ORDERED: compazine PO (18:22)
[2017-04-20] MEDS ORDERED: QUET50TA PO (18:22)
[2017-04-20 20:11] LABS: MEAN CORPUSCULAR HEMOGLOBIN 29.2 pg (27.0-33.0); MEAN CORPUSCULAR HGB CONC 32.4 g/dl (32.0-36.5); MEAN CORPUSCULAR VOLUME 90.2 fl (80.0-96.0); RED CELL DISTRIBUTION WIDTH 16.1 % (11.5-14.5); WHITE BLOOD COUNT 7.4 K/mm3 (4.0-10.0)
[2017-04-20 20:12] LABS: CONTROL LINE HCG INT CTR LINE PRESENT
[2017-04-20 20:27] LABS: ALBUMIN 2.1 GM/DL (3.2-5.2); ALBUMIN/GLOBULIN RATIO 0.75 (1.00-1.93); ALKALINE PHOSPHATASE 186 U/L (45-117); ALT/SGPT 28 U/L (12-78); ANION GAP 7 MEQ/L (8-16); AST/SGOT 51 U/L (15-37); BILIRUBIN,DIRECT 0.3 MG/DL (0.0-0.2); BILIRUBIN,TOTAL 0.7 MG/DL (0.2-1.0); BLOOD UREA NITROGEN 7 MG/DL (7-18); CALCIUM LEVEL 7.5 MG/DL (8.5-10.1); CARBON DIOXIDE LEVEL 25 MEQ/L (21-32); CHLORIDE LEVEL 105 MEQ/L (98-107); CREATININE FOR GFR 0.69 MG/DL (0.55-1.02); GLOMERULAR FILTRATION RATE > 60.0 (>60); GLUCOSE, FASTING 95 MG/DL (70-105); SODIUM LEVEL 137 MEQ/L (136-145); TOTAL PROTEIN 4.9 GM/DL (6.4-8.2)
[2017-04-20 21:51] LABS: METHADONE URINE NEGATIVE (NEGATIVE)
[2017-04-20 22:15] VITALS: BP 108/60
== END 2017-04-20 22:42 | disposition home or self-care (01) ==
LOC: M ED 21:19
DX: F41.9 Anxiety disorder, unspecified (principal); Z71.1 Person with feared health complaint in whom no diagnosis is made; F33.9 Major depressive disorder, recurrent, unspecified; M32.9 Systemic lupus erythematosus, unspecified; M06.9 Rheumatoid arthritis, unspecified; M79.7 Fibromyalgia; G43.909 Migraine, unspecified, not intractable, without status migrainosus; F17.210 Nicotine dependence, cigarettes, uncomplicated; Z88.8 Allergy status to other drugs, medicaments and biological substances; Z88.1 Allergy status to other antibiotic agents; Z88.2 Allergy status to sulfonamides; Z91.040 Latex allergy status; Z79.899 Other long term (current) drug therapy; Z79.52 Long term (current) use of systemic steroids
CPT/HCPCS: 36415; 80048; 80076; 80306; 84443; 84703; 85027; 99284; G0480

== ENCOUNTER 2017-05-12 16:11 | Emergency (ER) | payer MEDICARE, MEDICAID ==
[~2017-05-12] VITALS: Ht 165.1 cm; Wt 52.3 kg
[~2017-05-12 16:11] MED LIST changes: -BACL-67 PO; +BACL1TAB9 PO; -FOLI1TAB2 PO; +FOLI1TAB4 PO; +HYDR-3363 PO; -HYDR25T PO; -LORA-376 PO; +LORA0.5T11 PO; +MISO100T22 PO; -NAPR250T2 PO; +NAPR250T4 PO; -NAPR500T2 PO; +NAPR500T3 PO; -ONDA1TAB16 PO; +ONDA8TAB7 PO; -PRED10TA PO; +PRED10TA2 PO; -PROA1AER INH; +PROAAER10 INH; +PROM12.55 PO; -PROM125TA PO; +QUET50TA PO; -TOPI200T4 PO; +TOPI200T7 PO; -TOPI50TA4 PO; +TOPI50TA9 PO; -VITA8000 PO; +VITA80003 PO; -[UNRECOGNIZED DRUG - CODE] PO; +compazine PO
[2017-05-12] MEDS ORDERED: SODIUM CHLORIDE 0.9% 1000 ML IV ONE (16:30)
[2017-05-12 17:24] LABS: VENOUS BASE EXCESS -3.4 (-2.0-2.0); VENOUS O2 SATURATION 77.1 % (60.0-80.0); VENOUS PARTIAL PRESSURE CO2 44.5 mmHg (38.0-50.0); VENOUS PARTIAL PRESSURE O2 48.2 mmHg (30.0-50.0); VENOUS STANDARD HCO3 21.2 MEQ/L; VENOUS TOTAL CO2 23.9 MEQ/L (24.0-28.0)
[2017-05-12] MEDS ORDERED: ONDANSETRON 4MG/2ML VIAL (J2405) IV ONE (17:30)
[2017-05-12 17:59] LABS: ALBUMIN 1.8 GM/DL (3.2-5.2); ALBUMIN/GLOBULIN RATIO 0.64 (1.00-1.93); ALKALINE PHOSPHATASE 130 U/L (45-117); ALT/SGPT 28 U/L (12-78); ANION GAP 5 MEQ/L (8-16); AST/SGOT 24 U/L (15-37); BILIRUBIN,DIRECT 0.3 MG/DL (0.0-0.2); BILIRUBIN,TOTAL 0.8 MG/DL (0.2-1.0); BLOOD UREA NITROGEN 7 MG/DL (7-18); CALCIUM LEVEL 7.5 MG/DL (8.5-10.1); CARBON DIOXIDE LEVEL 27 MEQ/L (21-32); CHLORIDE LEVEL 107 MEQ/L (98-107); CREATININE FOR GFR 0.62 MG/DL (0.55-1.02); GLOMERULAR FILTRATION RATE > 60.0 (>60); GLUCOSE, FASTING 86 MG/DL (70-105); POTASSIUM SERUM 3.3 MEQ/L (3.5-5.1); SODIUM LEVEL 139 MEQ/L (136-145); TOTAL PROTEIN 4.6 GM/DL (6.4-8.2)
[2017-05-12 18:04] LABS: BASO % 1.2 % (0.0-1.0); EOS % 1.2 % (0.0-3.0); LARGE UNSTAINED CELL # 0.1 K/mm3 (0.0-0.4); LARGE UNSTAINED CELL % 3.2 % (0.0-4.0); LYMPH # 1.8 K/mm3 (1.5-4.5); LYMPH % 46.3 % (24.0-44.0); MEAN CORPUSCULAR HEMOGLOBIN 30.9 pg (27.0-33.0); MEAN CORPUSCULAR HGB CONC 31.6 g/dl (32.0-36.5); MEAN CORPUSCULAR VOLUME 97.8 fl (80.0-96.0); MONO # 0.1 K/mm3 (0.0-0.8); MONO % 2.5 % (0.0-5.0); NEUTROPHILS # 1.8 K/mm3 (1.8-7.7); NEUTROPHILS % 45.5 % (36.0-66.0); PLATELET COUNT, AUTOMATED 267 k/mm3 (150-450); RED CELL DISTRIBUTION WIDTH 18.5 % (11.5-14.5); WHITE BLOOD COUNT 3.9 K/mm3 (4.0-10.0)
[2017-05-12 18:17] LABS: MAGNESIUM LEVEL 2.2 MG/DL (1.8-2.4)
[2017-05-12] MEDS ORDERED: POTASSIUM CHLORIDE 10 MEQ SR TABLET PO ONE (18:30)
[2017-05-12 19:48] VITALS: BP 138/95
--- NOTE | 2017-05-13 07:36 | ECGEPIP ---
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
== END 2017-05-12 20:49 | disposition home or self-care (01) ==
LOC: M ED 16:11
DX: E87.6 Hypokalemia (principal); D64.9 Anemia, unspecified; G43.909 Migraine, unspecified, not intractable, without status migrainosus; M32.9 Systemic lupus erythematosus, unspecified; M35.00 Sjogren syndrome, unspecified; F41.9 Anxiety disorder, unspecified; F33.8 Other recurrent depressive disorders; Z60.2 Problems related to living alone; Z98.84 Bariatric surgery status; Z79.52 Long term (current) use of systemic steroids; Z79.899 Other long term (current) drug therapy; Z88.1 Allergy status to other antibiotic agents; Z88.2 Allergy status to sulfonamides; Z88.8 Allergy status to other drugs, medicaments and biological substances; Z91.040 Latex allergy status
CPT/HCPCS: 36415; 80048; 80076; 82330; 82550; 82553; 82803; 83605; 83735; 83930; 84443; 84484; 85025; 93005; 93041; 96374; 99285; G0480; J2405

== ENCOUNTER 2018-01-03 18:43 | Inpatient (IN) | payer MEDICARE, MEDICAID ==
[2018-01-03] MEDS: NS 1,000 ML IV (20:02)
[2018-01-03 20:21] LABS: BEDSIDE GLUCOSE 245 MG/DL (70-105)
[2018-01-03 20:29] LABS: VENOUS BASE EXCESS -6.9 (-2.0-2.0); VENOUS HCO3 17.4 MEQ/L (23.0-27.0); VENOUS O2 SATURATION 98.4 % (60.0-80.0); VENOUS PARTIAL PRESSURE O2 115.6 mmHg (30.0-50.0); VENOUS PH 7.368 UNITS (7.330-7.430); VENOUS STANDARD HCO3 18.9 MEQ/L; VENOUS TOTAL CO2 18.4 MEQ/L (24.0-28.0)
[2018-01-03 20:30] LABS: HEMATOCRIT 28.9 % (36.0-47.0); MEAN CORPUSCULAR HEMOGLOBIN 30.2 pg (27.0-33.0); MEAN CORPUSCULAR HGB CONC 34.6 g/dl (32.0-36.5); MEAN CORPUSCULAR VOLUME 87.3 fl (80.0-96.0); PLATELET COUNT, AUTOMATED 249 10^3/uL (150-450); RED BLOOD COUNT 3.31 10^6/uL (4.00-5.40); RED CELL DISTRIBUTION WIDTH 16.8 % (11.5-14.5)
[2018-01-03 20:38] LABS: ADD MANUAL DIFFER YES; DIFF SLIDE NUMBER 161; POSITIVE MORPH POS FLAG
[2018-01-03 20:47] LABS: AMMONIA < 10 uMOL/L (<32)
[2018-01-03 20:53] LABS: ACETAMINOPHEN LEVEL 5.7 UG/ML (10.0-30.0); ALBUMIN 2.5 GM/DL (3.2-5.2); ALBUMIN/GLOBULIN RATIO 1.04 (1.00-1.93); ALKALINE PHOSPHATASE 158 U/L (45-117); ALT/SGPT 64 U/L (12-78); ANION GAP 12 MEQ/L (8-16); AST/SGOT 50 U/L (7-37); BILIRUBIN,DIRECT 0.4 MG/DL (0.0-0.2); BILIRUBIN,TOTAL 0.7 MG/DL (0.2-1.0); BLOOD UREA NITROGEN 12 MG/DL (7-18); CALCIUM LEVEL 7.8 MG/DL (8.5-10.1); CARBON DIOXIDE LEVEL 19 MEQ/L (21-32); CHLORIDE LEVEL 110 MEQ/L (98-107); CPK CREATINE PHOSPHOKINASE 243 U/L (26-192); CREATININE FOR GFR 0.99 MG/DL (0.55-1.30); GLOMERULAR FILTRATION RATE > 60.0 (>60); GLUCOSE, FASTING 92 MG/DL (70-100); POTASSIUM SERUM 3.3 MEQ/L (3.5-5.1); SODIUM LEVEL 141 MEQ/L (136-145); TOTAL PROTEIN 4.9 GM/DL (6.4-8.2); TROPONIN I < 0.02 NG/ML (< 0.10)
[2018-01-03 20:56] LABS: ATYPICAL LYMPH 1 % (0-5); EOSINOPHILS 3 % (0-5); LYMPHOCYTES 16 % (16-52); MONOCYTES 5 % (0-8); NEUTROPHILS 75 % (35-75)
[2018-01-03 20:57] LABS: ANISOCYTOSIS 1+; PLATELET ESTIMATE NORMAL (NORMAL)
[2018-01-03 20:59] LABS: CK-MB VALUE MASS 3.7 NG/ML (0.0-3.6); MB/CK RELATIVE INDEX 1.52 (< OR =4); THYROID STIMULATING HORMONE 0.862 uIU/ML (0.358-3.740)
[2018-01-03 21:13] LABS: ETHYL ALCOHOL (ETHANOL) < 0.003 % (0.000-0.010)
[2018-01-03 21:22] LABS: OSMOLALITY SERUM 279 MOSM/KG (275-295)
[2018-01-03 21:29] LABS: CONTROL LINE HCG INT CTR LINE PRESENT; HCG, SERUM QUALITATIVE NEGATIVE (NEGATIVE)
[2018-01-03] MEDS: LORazepam 2 MG/ML VIAL (J2060) IV (22:09)
[2018-01-03] MEDS: LORazepam 2 MG/ML VIAL (J2060) IM (22:33)
[2018-01-03] MEDS: HALOPERIDOL 5 MG/ML VIAL (J1630) IM (22:33)
[2018-01-03] MEDS: diphenhydrAMINE INJ 50MG/ML VIAL (J1200) IM (22:33)
[2018-01-03] MEDS ORDERED: NS 1,000 ML IV (23:05)
[2018-01-03] MEDS: ONDANSETRON 4MG/2ML VIAL (J2405) IV (23:25)
[2018-01-03] MEDS: ATROPINE SULF 0.4 MG/ML 1ML VIAL (J0461) IV (23:25)
[2018-01-03] MEDS: KETAMINE HCL 200 MG/20 ML VIAL IV (23:30)
[2018-01-03] MEDS: PROPOFOL 200 MG/20 ML VIAL IV ×6 (23:32→23:45)
[2018-01-04 00:16] LABS: CSF RBC < 2 10^3/uL (<2)
[2018-01-04 00:17] LABS: CSF RBC < 2 10^3/uL (<2)
[2018-01-04 00:23] LABS: APPEARANCE, CSF CLEAR (CLEAR); COLOR, CSF COLORLESS (COLORLESS); CSF DIFF IF INDICATED? NO (NO); CSF TUBE# CELL CNT TUBE 1; CSF TUBE# CELL CNT TUBE 4; CSF WBC 2 /uL (0-10)
[2018-01-04 00:24] LABS: APPEARANCE, CSF CLEAR (CLEAR); CSF DIFF IF INDICATED? NO (NO)
[2018-01-04 00:30] LABS: KETONE, URINE AUTO RFX NEGATIVE (NEGATIVE); LEUKOCYTE ESTERASE UR AUTO RFX NEGATIVE (NEGATIVE); NITRITE, URINE AUTO RFX NEGATIVE (NEGATIVE); RBC, URINE AUTO RFX 0 /HPF (0-3); SQUAM EPITHELIAL CELL UR AURFX 0 /HPF (0-6); WBC, URINE AUTO RFX 2 /HPF (0-3)
[2018-01-04 01:39] LABS: CSF TUBE# GLU TUBE 3; CSF TUBE# TP TUBE 3; GLUCOSE CSF 61 MG/DL (40-75); TOTAL PROTEIN,CSF 48.1 MG/DL (15-45)
[2018-01-04 01:43] LABS: AMPHETAMINES LEVEL URINE NEGATIVE (NEGATIVE); BARBITURATES URINE NEGATIVE (NEGATIVE); BENZODIAZEPINES URINE NEGATIVE (NEGATIVE); CANNABINOIDS URINE NEGATIVE (NEGATIVE); COCAINE METABOLITE URINE NEGATIVE (NEGATIVE); METHADONE URINE NEGATIVE (NEGATIVE); OPIATES URINE NEGATIVE (NEGATIVE); PHENCYCLIDINE URINE NEGATIVE (NEGATIVE)
[2018-01-04 01:46] LABS: CHLORIDE,RANDOM URINE 21 MEQ/L; CREATININE,RANDOM URINE 62.9 MG/DL; POTASSIUM RANDOM URINE 8.3 MEQ/L; SODIUM,RANDOM URINE 21 MEQ/L
[2018-01-04] MEDS: KCL 10MEQ/100ML SWI (KRUN) 10 MEQ in APPROPRIATE DILUENT 1 EA IV ×2 (02:00→02:59)
[2018-01-04 02:15] LABS: GAMMA GLUTAMYLTRANSPEPTIDASE 223 U/L (5-55)
[2018-01-04] MEDS: NS 1,000 ML IV (02:50)
[2018-01-04 03:05] LABS: CALCIUM,RANDOM URINE < 5.0 MG/DL
[2018-01-04 03:42] LABS: OSMOLALITY URINE 221 MOSM/KG (500-800)
[2018-01-04 05:23] LABS: BASO # 0.1 10^3/uL (0.0-0.2); BASO % 0.6 % (0.0-1.0); HEMATOCRIT 27.1 % (36.0-47.0); HEMOGLOBIN 9.5 g/dl (12.0-16.0); IMMATURE GRANULOCYTE % 0.5 % (0-3.0); LYMPH # 2.1 10^3/uL (1.5-4.5); LYMPH % 14.2 % (24.0-44.0); MEAN CORPUSCULAR HEMOGLOBIN 29.7 pg (27.0-33.0); MEAN CORPUSCULAR HGB CONC 35.1 g/dl (32.0-36.5); MEAN CORPUSCULAR VOLUME 84.7 fl (80.0-96.0); MONO # 0.6 10^3/uL (0.0-0.8); MONO % 4.1 % (0.0-5.0); NEUTROPHILS # 12.1 10^3/uL (1.8-7.7); NEUTROPHILS % 80.6 % (36.0-66.0); PLATELET COUNT, AUTOMATED 281 10^3/uL (150-450); RED CELL DISTRIBUTION WIDTH 16.6 % (11.5-14.5)
[2018-01-04 05:38] LABS: ALBUMIN 2.2 GM/DL (3.2-5.2); ALBUMIN/GLOBULIN RATIO 0.76 (1.00-1.93); ALKALINE PHOSPHATASE 148 U/L (45-117); ALT/SGPT 51 U/L (12-78); ANION GAP 8 MEQ/L (8-16); AST/SGOT 40 U/L (7-37); BILIRUBIN,TOTAL 0.9 MG/DL (0.2-1.0); BLOOD UREA NITROGEN 8 MG/DL (7-18); CALCIUM LEVEL 7.4 MG/DL (8.5-10.1); CARBON DIOXIDE LEVEL 20 MEQ/L (21-32); CHLORIDE LEVEL 119 MEQ/L (98-107); CPK CREATINE PHOSPHOKINASE 171 U/L (26-192); CREATININE FOR GFR 0.75 MG/DL (0.55-1.30); GLOMERULAR FILTRATION RATE > 60.0 (>60); GLUCOSE, FASTING 79 MG/DL (70-100); MAGNESIUM LEVEL 1.9 MG/DL (1.8-2.4); POTASSIUM SERUM 3.1 MEQ/L (3.5-5.1); SODIUM LEVEL 147 MEQ/L (136-145); TOTAL PROTEIN 5.1 GM/DL (6.4-8.2)
[2018-01-04] MEDS: SYMBICORT 160/4.5MCG INHALER 6GM INH ×2 (09:00→22:40)
[2018-01-04] MEDS: MEGESTROL ES SUSP 625 MG/5 ML UDC PO (09:48)
[2018-01-04] MEDS: OLANZapine 2.5MG TABLET PO (09:49)
[2018-01-04] MEDS: METOPROLOL TART 50 MG TAB PO (09:49)
[2018-01-04] MEDS: ENOXAPARIN 40 MG/0.4 ML SYRINGE (J1650) SC (09:49)
[2018-01-04] MEDS: FAMOTIDINE 20 MG TAB PO (09:49)
[2018-01-04] MEDS: MONTELUKAST 10 MG TAB PO (09:49)
[2018-01-04] MEDS: PANTOPRAZOLE 40MG TAB (PROTONIX) PO ×2 (09:49→22:06)
[2018-01-04] MEDS: METHOCARBAMOL 750 MG TAB PO ×2 (09:49→22:07)
[2018-01-04] MEDS: MULTIVITAMINS/MINERALS THERAP 1 TAB PO ×2 (09:49→22:07)
[2018-01-04] MEDS: miSOPROStol 100 MCG TAB (S0191) PO ×2 (09:50→22:07)
[2018-01-04] MEDS: TOPIRAMATE (TopAMAX) 25 MG TAB PO ×2 (09:50→22:08)
[2018-01-04] MEDS: CYCLOBENZAPRINE 5MG TABLET PO ×3 (09:50→22:07)
[2018-01-04] MEDS: POTASSIUM CHLORIDE 10 MEQ SR TABLET PO (09:50)
[2018-01-04] MEDS: GABAPENTIN 400 MG CAP PO ×2 (09:51→22:08)
[2018-01-04] MEDS: NORTRIPTYLINE 10 MG CAP PO ×2 (09:51→22:08)
[2018-01-04] MEDS: FOLIC ACID 1 MG TAB PO (09:51)
[2018-01-04 11:25] LABS: VITAMIN B12 LEVEL 1582 PG/ML
[2018-01-04 11:26] LABS: FOLATE > 24.0 NG/ML
[2018-01-04] MEDS: KCL 20MEQ IN 0.45NS 1000ML 1,000 ML IV (11:40)
[2018-01-04] MEDS: QUEtiapine 300 MG XR TABLET(SEROQUEL XR) PO (22:06)
[2018-01-04] MEDS: HYDROXYCHLOROQUINE 200 MG TAB PO (22:07)
[2018-01-04] MEDS: DULoxetine 30 MG CAP (CYMBALTA) PO (22:08)
[2018-01-04] MEDS: AMITRIPTYLINE 50 MG TAB PO (22:08)
[2018-01-05] MEDS: KCL 20MEQ IN 0.45NS 1000ML 1,000 ML IV ×2 (01:11→13:19)
[2018-01-05 06:15] LABS: BASO # 0.1 10^3/uL (0.0-0.2); BASO % 0.4 % (0.0-1.0); HEMATOCRIT 24.5 % (36.0-47.0); HEMOGLOBIN 8.5 g/dl (12.0-16.0); IMMATURE GRANULOCYTE % 0.6 % (0-3.0); LYMPH # 2.2 10^3/uL (1.5-4.5); LYMPH % 13.1 % (24.0-44.0); MEAN CORPUSCULAR HEMOGLOBIN 30.1 pg (27.0-33.0); MEAN CORPUSCULAR HGB CONC 34.7 g/dl (32.0-36.5); MEAN CORPUSCULAR VOLUME 86.9 fl (80.0-96.0); MONO # 0.6 10^3/uL (0.0-0.8); MONO % 3.9 % (0.0-5.0); NEUTROPHILS # 13.5 10^3/uL (1.8-7.7); PLATELET COUNT, AUTOMATED 264 10^3/uL (150-450); RED BLOOD COUNT 2.82 10^6/uL (4.00-5.40); WHITE BLOOD COUNT 16.5 10^3/uL (4.0-10.0)
[2018-01-05 06:32] LABS: ALBUMIN 1.9 GM/DL (3.2-5.2); ALBUMIN/GLOBULIN RATIO 0.68 (1.00-1.93); ALKALINE PHOSPHATASE 133 U/L (45-117); ALT/SGPT 33 U/L (12-78); ANION GAP 9 MEQ/L (8-16); AST/SGOT 30 U/L (7-37); BILIRUBIN,TOTAL 1.2 MG/DL (0.2-1.0); BLOOD UREA NITROGEN 9 MG/DL (7-18); CALCIUM LEVEL 7.7 MG/DL (8.5-10.1); CARBON DIOXIDE LEVEL 17 MEQ/L (21-32); CHLORIDE LEVEL 119 MEQ/L (98-107); CPK CREATINE PHOSPHOKINASE 75 U/L (26-192); CREATININE FOR GFR 0.78 MG/DL (0.55-1.30); GLOMERULAR FILTRATION RATE > 60.0 (>60); GLUCOSE, FASTING 79 MG/DL (70-100); POTASSIUM SERUM 3.4 MEQ/L (3.5-5.1); SODIUM LEVEL 145 MEQ/L (136-145); TOTAL PROTEIN 4.7 GM/DL (6.4-8.2)
[2018-01-05] MEDS: SYMBICORT 160/4.5MCG INHALER 6GM INH ×2 (07:19→21:00)
[2018-01-05] MEDS: CYCLOBENZAPRINE 5MG TABLET PO ×3 (08:52→21:01)
[2018-01-05] MEDS: MEGESTROL ES SUSP 625 MG/5 ML UDC PO (08:52)
[2018-01-05] MEDS: FAMOTIDINE 20 MG TAB PO (08:52)
[2018-01-05] MEDS: ENOXAPARIN 40 MG/0.4 ML SYRINGE (J1650) SC (08:52)
[2018-01-05] MEDS: miSOPROStol 100 MCG TAB (S0191) PO ×2 (08:53→21:01)
[2018-01-05] MEDS: GABAPENTIN 400 MG CAP PO ×2 (08:53→21:02)
[2018-01-05] MEDS: OLANZapine 2.5MG TABLET PO (08:53)
[2018-01-05] MEDS: POTASSIUM CHLORIDE 10 MEQ SR TABLET PO (08:53)
[2018-01-05] MEDS: METHOCARBAMOL 750 MG TAB PO ×2 (08:54→21:01)
[2018-01-05] MEDS: METOPROLOL TART 50 MG TAB PO (08:54)
[2018-01-05] MEDS: FOLIC ACID 1 MG TAB PO (08:54)
[2018-01-05] MEDS: TOPIRAMATE (TopAMAX) 25 MG TAB PO ×2 (08:55→21:01)
[2018-01-05] MEDS: PANTOPRAZOLE 40MG TAB (PROTONIX) PO ×2 (08:55→21:02)
[2018-01-05] MEDS: MULTIVITAMINS/MINERALS THERAP 1 TAB PO ×2 (08:55→21:01)
[2018-01-05] MEDS: MONTELUKAST 10 MG TAB PO (08:55)
[2018-01-05] MEDS: NORTRIPTYLINE 10 MG CAP PO ×2 (08:55→21:01)
[2018-01-05 11:12] LABS: FERRITIN 511 NG/ML (8-252); GAMMA GLUTAMYLTRANSPEPTIDASE 162 U/L (5-55); IRON (FE) 13 UG/DL (50-170); PERCENT SATURATION 10.7 % (13.2-45.0); TOTAL IRON BINDING CAPACITY 122 UG/DL (250-450)
[2018-01-05 11:19] LABS: RETIC HEMOGLOBIN EQUIVALENT 31.6 pg (24-36); RETICULOCYTE # 61.3 10^9/L (17-77); RETICULOCYTE % 2.2 % (0.5-1.5)
[2018-01-05 14:11] LABS: RNP ANTIBODY 0.2 AI (0.0-0.9); SMITHS ANTIBODY < 0.2 AI (0.0-0.9)
[2018-01-05] MEDS: QUEtiapine 300 MG XR TABLET(SEROQUEL XR) PO (21:00)
[2018-01-05] MEDS: HYDROXYCHLOROQUINE 200 MG TAB PO (21:01)
[2018-01-05] MEDS: DULoxetine 30 MG CAP (CYMBALTA) PO (21:02)
[2018-01-05] MEDS: AMITRIPTYLINE 50 MG TAB PO (21:02)
[2018-01-06] MEDS: KCL 20MEQ IN 0.45NS 1000ML 1,000 ML IV (01:12)
[2018-01-06 06:40] LABS: BASO # 0.1 10^3/uL (0.0-0.2); BASO % 0.3 % (0.0-1.0); HEMATOCRIT 23.4 % (36.0-47.0); HEMOGLOBIN 8.1 g/dl (12.0-16.0); LYMPH # 1.9 10^3/uL (1.5-4.5); LYMPH % 12.2 % (24.0-44.0); MEAN CORPUSCULAR HEMOGLOBIN 30.5 pg (27.0-33.0); MEAN CORPUSCULAR HGB CONC 34.6 g/dl (32.0-36.5); MONO # 0.9 10^3/uL (0.0-0.8); MONO % 6.1 % (0.0-5.0); NEUTROPHILS # 12.4 10^3/uL (1.8-7.7); NEUTROPHILS % 80.4 % (36.0-66.0); PLATELET COUNT, AUTOMATED 245 10^3/uL (150-450); RED BLOOD COUNT 2.66 10^6/uL (4.00-5.40); RED CELL DISTRIBUTION WIDTH 17.2 % (11.5-14.5); WHITE BLOOD COUNT 15.4 10^3/uL (4.0-10.0)
[2018-01-06 07:07] LABS: ALBUMIN 1.9 GM/DL (3.2-5.2); ALBUMIN/GLOBULIN RATIO 0.76 (1.00-1.93); ALKALINE PHOSPHATASE 143 U/L (45-117); ALT/SGPT 29 U/L (12-78); ANION GAP 9 MEQ/L (8-16); AST/SGOT 33 U/L (7-37); BILIRUBIN,TOTAL 1.3 MG/DL (0.2-1.0); BLOOD UREA NITROGEN 8 MG/DL (7-18); CALCIUM LEVEL 7.7 MG/DL (8.5-10.1); CARBON DIOXIDE LEVEL 17 MEQ/L (21-32); CHLORIDE LEVEL 119 MEQ/L (98-107); CPK CREATINE PHOSPHOKINASE 53 U/L (26-192); CREATININE FOR GFR 0.72 MG/DL (0.55-1.30); FERRITIN 587 NG/ML (8-252); GLOMERULAR FILTRATION RATE > 60.0 (>60); GLUCOSE, FASTING 80 MG/DL (70-100); IRON (FE) 10 UG/DL (50-170); PERCENT SATURATION 15.4 % (13.2-45.0); POTASSIUM SERUM 4.3 MEQ/L (3.5-5.1); SODIUM LEVEL 145 MEQ/L (136-145); TOTAL IRON BINDING CAPACITY 65 UG/DL (250-450); TOTAL PROTEIN 4.4 GM/DL (6.4-8.2)
[2018-01-06 08:53] LABS: REASON FOR REVIEW OTHER; SLIDE REVIEW Report; SOURCE PERIPHERAL SMEAR
[2018-01-06] MEDS: ENOXAPARIN 40 MG/0.4 ML SYRINGE (J1650) SC (08:53)
[2018-01-06] MEDS: MONTELUKAST 10 MG TAB PO (08:53)
[2018-01-06] MEDS: MEGESTROL ES SUSP 625 MG/5 ML UDC PO (08:54)
[2018-01-06] MEDS: OLANZapine 2.5MG TABLET PO (08:54)
[2018-01-06] MEDS: FOLIC ACID 1 MG TAB PO (08:54)
[2018-01-06] MEDS: CYCLOBENZAPRINE 5MG TABLET PO ×3 (08:54→21:11)
[2018-01-06] MEDS: TOPIRAMATE (TopAMAX) 25 MG TAB PO ×2 (08:54→21:09)
[2018-01-06] MEDS: NORTRIPTYLINE 10 MG CAP PO ×2 (08:54→21:12)
[2018-01-06] MEDS: FAMOTIDINE 20 MG TAB PO (08:55)
[2018-01-06] MEDS: miSOPROStol 100 MCG TAB (S0191) PO ×2 (08:55→21:11)
[2018-01-06] MEDS: METHOCARBAMOL 750 MG TAB PO ×2 (08:56→21:12)
[2018-01-06] MEDS: GABAPENTIN 400 MG CAP PO ×2 (08:56→21:11)
[2018-01-06] MEDS: PANTOPRAZOLE 40MG TAB (PROTONIX) PO ×2 (08:56→21:11)
[2018-01-06] MEDS: MULTIVITAMINS/MINERALS THERAP 1 TAB PO ×2 (08:56→21:12)
[2018-01-06] MEDS: METOPROLOL TART 50 MG TAB PO (08:56)
[2018-01-06] MEDS: SYMBICORT 160/4.5MCG INHALER 6GM INH ×2 (13:17→21:41)
[2018-01-06] MEDS: LR 1,000 ML IV (15:36)
[2018-01-06 15:45] LABS: LACTIC ACID SEPSIS PROTOCOL 1.2 MMOL/L (0.4-2.0)
[2018-01-06] MEDS ORDERED: ISOVUE-370 76% 100ML VIAL (Q9967) As Ordered (16:04)
[2018-01-06] MEDS: AMITRIPTYLINE 50 MG TAB PO (21:09)
[2018-01-06] MEDS: DULoxetine 30 MG CAP (CYMBALTA) PO (21:10)
[2018-01-06] MEDS: QUEtiapine 300 MG XR TABLET(SEROQUEL XR) PO (21:11)
[2018-01-06] MEDS: HYDROXYCHLOROQUINE 200 MG TAB PO (21:11)
[2018-01-07] MEDS: NS 500 ML IV (02:57)
[2018-01-07] MEDS: LR 1,000 ML IV ×2 (05:41→17:40)
[2018-01-07 06:15] LABS: HEMATOCRIT 22.2 % (36.0-47.0); HEMOGLOBIN 7.8 g/dl (12.0-16.0); MEAN CORPUSCULAR HEMOGLOBIN 30.8 pg (27.0-33.0); MEAN CORPUSCULAR HGB CONC 35.1 g/dl (32.0-36.5); MEAN CORPUSCULAR VOLUME 87.7 fl (80.0-96.0); PLATELET COUNT, AUTOMATED 280 10^3/uL (150-450); RED BLOOD COUNT 2.53 10^6/uL (4.00-5.40); RED CELL DISTRIBUTION WIDTH 16.9 % (11.5-14.5); WHITE BLOOD COUNT 16.9 10^3/uL (4.0-10.0)
[2018-01-07 06:20] LABS: ADD MANUAL DIFFER YES; DIFF SLIDE NUMBER 40; POSITIVE MORPH POS FLAG
[2018-01-07 06:38] LABS: ALBUMIN 1.9 GM/DL (3.2-5.2); ALBUMIN/GLOBULIN RATIO 0.59 (1.00-1.93); ALKALINE PHOSPHATASE 127 U/L (45-117); ALT/SGPT 21 U/L (12-78); ANION GAP 10 MEQ/L (8-16); AST/SGOT 40 U/L (7-37); BILIRUBIN,TOTAL 0.9 MG/DL (0.2-1.0); BLOOD UREA NITROGEN 9 MG/DL (7-18); CARBON DIOXIDE LEVEL 17 MEQ/L (21-32); CHLORIDE LEVEL 118 MEQ/L (98-107); CPK CREATINE PHOSPHOKINASE 39 U/L (26-192); CREATININE FOR GFR 0.77 MG/DL (0.55-1.30); GLOMERULAR FILTRATION RATE > 60.0 (>60); GLUCOSE, FASTING 81 MG/DL (70-100); MAGNESIUM LEVEL 2.2 MG/DL (1.8-2.4); POTASSIUM SERUM 4.1 MEQ/L (3.5-5.1); SODIUM LEVEL 145 MEQ/L (136-145); TOTAL PROTEIN 5.1 GM/DL (6.4-8.2)
[2018-01-07 06:43] LABS: ANISOCYTOSIS 1+; LYMPHOCYTES 14 % (16-52); METAMYELOCYTES 2 % (0-0); MONOCYTES 6 % (0-8); NEUTROPHILS 78 % (35-75); PLATELET ESTIMATE NORMAL (NORMAL)
[2018-01-07 07:39] LABS: HEMATOCRIT 22.9 % (36.0-47.0); HEMOGLOBIN 7.9 g/dl (12.0-16.0)
[2018-01-07] MEDS: SYMBICORT 160/4.5MCG INHALER 6GM INH ×2 (08:02→21:00)
[2018-01-07] MEDS: GABAPENTIN 400 MG CAP PO ×2 (09:12→20:38)
[2018-01-07] MEDS: CYCLOBENZAPRINE 5MG TABLET PO ×3 (09:12→20:39)
[2018-01-07] MEDS: FOLIC ACID 1 MG TAB PO (09:12)
[2018-01-07] MEDS: NORTRIPTYLINE 10 MG CAP PO ×2 (09:12→20:37)
[2018-01-07] MEDS: METHOCARBAMOL 750 MG TAB PO ×2 (09:12→20:38)
[2018-01-07] MEDS: MULTIVITAMINS/MINERALS THERAP 1 TAB PO ×2 (09:12→20:38)
[2018-01-07] MEDS: ENOXAPARIN 40 MG/0.4 ML SYRINGE (J1650) SC (09:12)
[2018-01-07] MEDS: PANTOPRAZOLE 40MG TAB (PROTONIX) PO ×2 (09:12→20:38)
[2018-01-07] MEDS: FAMOTIDINE 20 MG TAB PO (09:12)
[2018-01-07] MEDS: MONTELUKAST 10 MG TAB PO (09:12)
[2018-01-07] MEDS: OLANZapine 2.5MG TABLET PO (09:12)
[2018-01-07] MEDS: TOPIRAMATE (TopAMAX) 25 MG TAB PO ×2 (09:13→20:38)
[2018-01-07] MEDS: miSOPROStol 100 MCG TAB (S0191) PO ×2 (09:13→20:37)
[2018-01-07] MEDS: MEGESTROL ES SUSP 625 MG/5 ML UDC PO (09:13)
[2018-01-07] MEDS: DULoxetine 30 MG CAP (CYMBALTA) PO (20:36)
[2018-01-07] MEDS: QUEtiapine 300 MG XR TABLET(SEROQUEL XR) PO (20:37)
[2018-01-07] MEDS: AMITRIPTYLINE 50 MG TAB PO (20:38)
[2018-01-07] MEDS: HYDROXYCHLOROQUINE 200 MG TAB PO (20:44)
[2018-01-08] MEDS: LR 1,000 ML IV (02:44)
[2018-01-08] MEDS: LORazepam 2 MG/ML VIAL (J2060) IV (03:20)
[2018-01-08 06:33] LABS: BASO # 0.1 10^3/uL (0.0-0.2); BASO % 0.5 % (0.0-1.0); HEMATOCRIT 21.6 % (36.0-47.0); HEMOGLOBIN 7.5 g/dl (12.0-16.0); IMMATURE GRANULOCYTE % 0.8 % (0-3.0); LYMPH # 2.4 10^3/uL (1.5-4.5); LYMPH % 17.7 % (24.0-44.0); MEAN CORPUSCULAR HEMOGLOBIN 29.8 pg (27.0-33.0); MEAN CORPUSCULAR HGB CONC 34.7 g/dl (32.0-36.5); MEAN CORPUSCULAR VOLUME 85.7 fl (80.0-96.0); MONO % 7.7 % (0.0-5.0); NEUTROPHILS # 9.7 10^3/uL (1.8-7.7); NEUTROPHILS % 73.3 % (36.0-66.0); PLATELET COUNT, AUTOMATED 327 10^3/uL (150-450); RED BLOOD COUNT 2.52 10^6/uL (4.00-5.40); RED CELL DISTRIBUTION WIDTH 16.3 % (11.5-14.5); WHITE BLOOD COUNT 13.3 10^3/uL (4.0-10.0)
[2018-01-08 06:45] LABS: ALBUMIN 1.9 GM/DL (3.2-5.2); ALBUMIN/GLOBULIN RATIO 0.54 (1.00-1.93); ALKALINE PHOSPHATASE 123 U/L (45-117); ALT/SGPT 18 U/L (12-78); ANION GAP 9 MEQ/L (8-16); AST/SGOT 44 U/L (7-37); BILIRUBIN,TOTAL 0.8 MG/DL (0.2-1.0); BLOOD UREA NITROGEN 8 MG/DL (7-18); CARBON DIOXIDE LEVEL 20 MEQ/L (21-32); CHLORIDE LEVEL 116 MEQ/L (98-107); CPK CREATINE PHOSPHOKINASE 55 U/L (26-192); CREATININE FOR GFR 0.68 MG/DL (0.55-1.30); GLOMERULAR FILTRATION RATE > 60.0 (>60); GLUCOSE, FASTING 69 MG/DL (70-100); MAGNESIUM LEVEL 1.8 MG/DL (1.8-2.4); POTASSIUM SERUM 3.4 MEQ/L (3.5-5.1); SODIUM LEVEL 145 MEQ/L (136-145); TOTAL PROTEIN 5.4 GM/DL (6.4-8.2)
[2018-01-08] MEDS: SYMBICORT 160/4.5MCG INHALER 6GM INH ×2 (09:03→20:26)
[2018-01-08] MEDS: METHOCARBAMOL 750 MG TAB PO ×2 (09:53→21:58)
[2018-01-08] MEDS: CYCLOBENZAPRINE 5MG TABLET PO ×3 (09:53→21:58)
[2018-01-08] MEDS: FOLIC ACID 1 MG TAB PO (09:54)
[2018-01-08] MEDS: NORTRIPTYLINE 10 MG CAP PO ×2 (09:54→21:58)
[2018-01-08] MEDS: MEGESTROL ES SUSP 625 MG/5 ML UDC PO (09:54)
[2018-01-08] MEDS: MONTELUKAST 10 MG TAB PO (09:54)
[2018-01-08] MEDS: GABAPENTIN 400 MG CAP PO ×2 (09:54→21:58)
[2018-01-08] MEDS: miSOPROStol 100 MCG TAB (S0191) PO ×2 (09:54→21:59)
[2018-01-08] MEDS: PANTOPRAZOLE 40MG TAB (PROTONIX) PO ×2 (09:54→21:59)
[2018-01-08] MEDS: FAMOTIDINE 20 MG TAB PO (09:54)
[2018-01-08] MEDS: OLANZapine 2.5MG TABLET PO (09:54)
[2018-01-08] MEDS: MULTIVITAMINS/MINERALS THERAP 1 TAB PO ×2 (09:54→21:58)
[2018-01-08] MEDS: TOPIRAMATE (TopAMAX) 25 MG TAB PO ×2 (09:54→21:59)
[2018-01-08] MEDS: ENOXAPARIN 40 MG/0.4 ML SYRINGE (J1650) SC (09:55)
[2018-01-08 11:26] LABS: IMMEDIATE SPIN CROSSMATCH 1 2
[2018-01-08 11:35] LABS: COMPLEMENT C3 65.5 MG/DL (90-180); COMPLEMENT C4 25.6 MG/DL (10-40); LDH LACTATE DEHYDROGENASE 689 U/L (84-246)
[2018-01-08 11:37] LABS: ERYTHROCYTE SEDIMENTATION RATE > 140 mm/hr (0-20)
[2018-01-08] MEDS: POTASSIUM CHLORIDE 10 MEQ SR TABLET PO (13:33)
[2018-01-08] MEDS: diphenhydrAMINE 50 MG CAP PO (13:34)
[2018-01-08] MEDS: ACETAMINOPHEN 325 MG TAB PO (13:35)
[2018-01-08] MEDS: predniSONE 20 MG TAB PO (16:52)
[2018-01-08] MEDS: QUEtiapine 300 MG XR TABLET(SEROQUEL XR) PO (21:58)
[2018-01-08] MEDS: DULoxetine 30 MG CAP (CYMBALTA) PO (21:58)
[2018-01-08] MEDS: AMITRIPTYLINE 50 MG TAB PO (21:59)
[2018-01-08] MEDS: HYDROXYCHLOROQUINE 200 MG TAB PO (21:59)
[2018-01-09] MEDS: diphenhydrAMINE INJ 50MG/ML VIAL (J1200) IV (00:22)
[2018-01-09 00:35] LABS: BASO # 0.1 10^3/uL (0.0-0.2); BASO % 0.4 % (0.0-1.0); HEMATOCRIT 32.5 % (36.0-47.0); IMMATURE GRANULOCYTE % 1.2 % (0-3.0); LYMPH # 1.1 10^3/uL (1.5-4.5); LYMPH % 9.4 % (24.0-44.0); MEAN CORPUSCULAR HEMOGLOBIN 29.6 pg (27.0-33.0); MEAN CORPUSCULAR HGB CONC 35.1 g/dl (32.0-36.5); MEAN CORPUSCULAR VOLUME 84.4 fl (80.0-96.0); MONO # 0.3 10^3/uL (0.0-0.8); MONO % 2.8 % (0.0-5.0); NEUTROPHILS # 10.4 10^3/uL (1.8-7.7); NEUTROPHILS % 86.2 % (36.0-66.0); PLATELET COUNT, AUTOMATED 339 10^3/uL (150-450); RED BLOOD COUNT 3.85 10^6/uL (4.00-5.40); RED CELL DISTRIBUTION WIDTH 15.8 % (11.5-14.5); RETIC HEMOGLOBIN EQUIVALENT 29.2 pg (24-36); RETICULOCYTE # 76.2 10^9/L (17-77); WHITE BLOOD COUNT 12.1 10^3/uL (4.0-10.0)
[2018-01-09 00:38] LABS: VENOUS BASE EXCESS -4.9 (-2.0-2.0); VENOUS PARTIAL PRESSURE CO2 25.8 mmHg (38.0-50.0); VENOUS PARTIAL PRESSURE O2 46.5 mmHg (30.0-50.0); VENOUS PH 7.451 UNITS (7.330-7.430); VENOUS TOTAL CO2 18.4 MEQ/L (24.0-28.0)
[2018-01-09 00:39] LABS: VENOUS HCO3 17.6 MEQ/L (23.0-27.0); VENOUS O2 SATURATION 83.3 % (60.0-80.0); VENOUS STANDARD HCO3 20.2 MEQ/L
[2018-01-09 00:42] LABS: HEMOGLOBIN 11.4 g/dl (12.0-16.0)
[2018-01-09 00:54] LABS: LACTIC ACID SEPSIS PROTOCOL 1.4 MMOL/L (0.4-2.0)
[2018-01-09 00:55] LABS: ALBUMIN 2.2 GM/DL (3.2-5.2); ALBUMIN/GLOBULIN RATIO 0.71 (1.00-1.93); ALKALINE PHOSPHATASE 136 U/L (45-117); ALT/SGPT 20 U/L (12-78); ANION GAP 12 MEQ/L (8-16); AST/SGOT 46 U/L (7-37); BILIRUBIN,TOTAL 0.6 MG/DL (0.2-1.0); BLOOD UREA NITROGEN 10 MG/DL (7-18); CALCIUM LEVEL 8.3 MG/DL (8.5-10.1); CARBON DIOXIDE LEVEL 18 MEQ/L (21-32); CHLORIDE LEVEL 114 MEQ/L (98-107); CREATININE FOR GFR 0.76 MG/DL (0.55-1.30); GLOMERULAR FILTRATION RATE > 60.0 (>60); GLUCOSE, FASTING 96 MG/DL (70-100); LDH LACTATE DEHYDROGENASE 828 U/L (84-246); MAGNESIUM LEVEL 2.2 MG/DL (1.8-2.4); POTASSIUM SERUM 4.3 MEQ/L (3.5-5.1); SODIUM LEVEL 144 MEQ/L (136-145); TOTAL PROTEIN 5.3 GM/DL (6.4-8.2)
[2018-01-09 06:29] LABS: HEMATOCRIT 30.3 % (36.0-47.0); HEMOGLOBIN 10.6 g/dl (12.0-16.0); MEAN CORPUSCULAR HEMOGLOBIN 29.8 pg (27.0-33.0); MEAN CORPUSCULAR VOLUME 85.1 fl (80.0-96.0); PLATELET COUNT, AUTOMATED 345 10^3/uL (150-450); RED BLOOD COUNT 3.56 10^6/uL (4.00-5.40); RED CELL DISTRIBUTION WIDTH 15.6 % (11.5-14.5); WHITE BLOOD COUNT 14.6 10^3/uL (4.0-10.0)
[2018-01-09 06:31] LABS: ADD MANUAL DIFFER YES; DIFF SLIDE NUMBER 21; POSITIVE MORPH POS FLAG
[2018-01-09 06:35] LABS: ALBUMIN/GLOBULIN RATIO 0.56 (1.00-1.93); ALKALINE PHOSPHATASE 121 U/L (45-117); ALT/SGPT 18 U/L (12-78); ANION GAP 12 MEQ/L (8-16); AST/SGOT 40 U/L (7-37); BILIRUBIN,TOTAL 0.8 MG/DL (0.2-1.0); BLOOD UREA NITROGEN 10 MG/DL (7-18); CALCIUM LEVEL 8.3 MG/DL (8.5-10.1); CARBON DIOXIDE LEVEL 19 MEQ/L (21-32); CHLORIDE LEVEL 114 MEQ/L (98-107); CREATININE FOR GFR 0.72 MG/DL (0.55-1.30); GLOMERULAR FILTRATION RATE > 60.0 (>60); GLUCOSE, FASTING 69 MG/DL (70-100); MAGNESIUM LEVEL 2.2 MG/DL (1.8-2.4); POTASSIUM SERUM 3.8 MEQ/L (3.5-5.1); SODIUM LEVEL 145 MEQ/L (136-145); TOTAL PROTEIN 5.6 GM/DL (6.4-8.2)
[2018-01-09 07:05] LABS: EOSINOPHILS 1 % (0-5); LYMPHOCYTES 12 % (16-52); MONOCYTES 4 % (0-8); NEUTROPHILS 83 % (35-75)
[2018-01-09 07:06] LABS: PLATELET ESTIMATE NORMAL (NORMAL)
[2018-01-09] MEDS ORDERED: ISOVUE-370 76% 100ML VIAL (Q9967) As Ordered ×2 (07:50→10:12)
[2018-01-09 08:06] LABS: HAPTOGLOBIN 306 mg/dL (34-200)
[2018-01-09] MEDS: SYMBICORT 160/4.5MCG INHALER 6GM INH ×2 (08:16→21:23)
[2018-01-09] MEDS: miSOPROStol 100 MCG TAB (S0191) PO ×2 (10:20→22:13)
[2018-01-09] MEDS: MONTELUKAST 10 MG TAB PO (10:20)
[2018-01-09] MEDS: OLANZapine 2.5MG TABLET PO (10:20)
[2018-01-09] MEDS: TOPIRAMATE (TopAMAX) 25 MG TAB PO ×2 (10:20→22:13)
[2018-01-09] MEDS: MULTIVITAMINS/MINERALS THERAP 1 TAB PO ×2 (10:21→22:14)
[2018-01-09] MEDS: FAMOTIDINE 20 MG TAB PO (10:21)
[2018-01-09] MEDS: PANTOPRAZOLE 40MG TAB (PROTONIX) PO ×2 (10:21→22:14)
[2018-01-09] MEDS: CYCLOBENZAPRINE 5MG TABLET PO ×3 (10:21→22:14)
[2018-01-09] MEDS: predniSONE 20 MG TAB PO (10:21)
[2018-01-09] MEDS: METHOCARBAMOL 750 MG TAB PO ×2 (10:21→22:13)
[2018-01-09] MEDS: GABAPENTIN 400 MG CAP PO ×2 (10:21→22:14)
[2018-01-09] MEDS: NORTRIPTYLINE 10 MG CAP PO ×2 (10:21→22:13)
[2018-01-09] MEDS: FERROUS SULFATE 325MG TAB PO (10:22)
[2018-01-09] MEDS: ENOXAPARIN 40 MG/0.4 ML SYRINGE (J1650) SC (10:22)
[2018-01-09] MEDS: FOLIC ACID 1 MG TAB PO (10:22)
[2018-01-09] MEDS: MEGESTROL ES SUSP 625 MG/5 ML UDC PO (10:23)
[2018-01-09 14:10] LABS: ANTI DOUBLE STRAND-DNA AB 6 IU/mL (0-9)
[2018-01-09] MEDS: NYSTATIN 500,000 U/5 ML SUSP UDC SS ×2 (16:53→22:13)
[2018-01-09] MEDS: HYDROXYCHLOROQUINE 200 MG TAB PO (22:13)
[2018-01-09] MEDS: DULoxetine 30 MG CAP (CYMBALTA) PO (22:14)
[2018-01-09] MEDS: AMITRIPTYLINE 50 MG TAB PO (22:14)
[2018-01-09] MEDS: QUEtiapine 300 MG XR TABLET(SEROQUEL XR) PO (22:14)
[2018-01-10 05:59] LABS: HEMATOCRIT 29.4 % (36.0-47.0); HEMOGLOBIN 10.3 g/dl (12.0-16.0); MEAN CORPUSCULAR HEMOGLOBIN 29.8 pg (27.0-33.0); PLATELET COUNT, AUTOMATED 335 10^3/uL (150-450); RED BLOOD COUNT 3.46 10^6/uL (4.00-5.40); RED CELL DISTRIBUTION WIDTH 15.8 % (11.5-14.5); WHITE BLOOD COUNT 16.3 10^3/uL (4.0-10.0)
[2018-01-10 06:00] LABS: ADD MANUAL DIFFER YES; DIFF SLIDE NUMBER 10; POSITIVE MORPH POS FLAG
[2018-01-10 06:04] LABS: ALBUMIN/GLOBULIN RATIO 0.57 (1.00-1.93); ALKALINE PHOSPHATASE 108 U/L (45-117); ALT/SGPT 20 U/L (12-78); ANION GAP 9 MEQ/L (8-16); AST/SGOT 38 U/L (7-37); BILIRUBIN,TOTAL 0.6 MG/DL (0.2-1.0); BLOOD UREA NITROGEN 12 MG/DL (7-18); CALCIUM LEVEL 7.7 MG/DL (8.5-10.1); CARBON DIOXIDE LEVEL 20 MEQ/L (21-32); CHLORIDE LEVEL 113 MEQ/L (98-107); CREATININE FOR GFR 0.78 MG/DL (0.55-1.30); GLOMERULAR FILTRATION RATE > 60.0 (>60); GLUCOSE, FASTING 71 MG/DL (70-100); MAGNESIUM LEVEL 2.3 MG/DL (1.8-2.4); POTASSIUM SERUM 3.3 MEQ/L (3.5-5.1); SODIUM LEVEL 142 MEQ/L (136-145); TOTAL PROTEIN 5.5 GM/DL (6.4-8.2)
[2018-01-10 06:58] LABS: EOSINOPHILS 8 % (0-5); LYMPHOCYTES 27 % (16-52); MONOCYTES 2 % (0-8); NEUTROPHILS 63 % (35-75)
[2018-01-10 06:59] LABS: PLATELET ESTIMATE NORMAL (NORMAL); TOXIC GRANULATION 1+
[2018-01-10] MEDS: SYMBICORT 160/4.5MCG INHALER 6GM INH ×2 (09:08→20:38)
[2018-01-10 09:47] LABS: HAPTOGLOBIN 378 mg/dL (34-200)
[2018-01-10] MEDS: MEGESTROL ES SUSP 625 MG/5 ML UDC PO (10:07)
[2018-01-10] MEDS: NYSTATIN 500,000 U/5 ML SUSP UDC SS ×3 (10:07→20:58)
[2018-01-10] MEDS: FERROUS SULFATE 325MG TAB PO (10:07)
[2018-01-10] MEDS: METHOCARBAMOL 750 MG TAB PO ×2 (10:08→20:57)
[2018-01-10] MEDS: miSOPROStol 100 MCG TAB (S0191) PO ×2 (10:08→20:58)
[2018-01-10] MEDS: MONTELUKAST 10 MG TAB PO (10:08)
[2018-01-10] MEDS: MULTIVITAMINS/MINERALS THERAP 1 TAB PO ×2 (10:08→20:58)
[2018-01-10] MEDS: GABAPENTIN 400 MG CAP PO ×2 (10:09→20:58)
[2018-01-10] MEDS: predniSONE 20 MG TAB PO (10:10)
[2018-01-10] MEDS: CYCLOBENZAPRINE 5MG TABLET PO ×3 (10:10→20:58)
[2018-01-10] MEDS: FOLIC ACID 1 MG TAB PO (10:10)
[2018-01-10] MEDS: NORTRIPTYLINE 10 MG CAP PO ×2 (10:10→20:57)
[2018-01-10] MEDS: TOPIRAMATE (TopAMAX) 25 MG TAB PO ×2 (10:11→20:59)
[2018-01-10] MEDS: ENOXAPARIN 40 MG/0.4 ML SYRINGE (J1650) SC (10:11)
[2018-01-10] MEDS: FAMOTIDINE 20 MG TAB PO (10:11)
[2018-01-10] MEDS: OLANZapine 2.5MG TABLET PO (10:12)
[2018-01-10] MEDS: PANTOPRAZOLE 40MG TAB (PROTONIX) PO ×2 (10:14→20:57)
[2018-01-10 12:45] LABS: C REACTIVE PROTEIN QUANTITATIV 6.52 MG/DL (0.00-0.30)
[2018-01-10 12:51] LABS: ERYTHROCYTE SEDIMENTATION RATE 65 mm/hr (0-20)
[2018-01-10] MEDS: POTASSIUM CHLORIDE 10 MEQ SR TABLET PO (13:35)
[2018-01-10] MEDS: ONDANSETRON 4 MG ORAL DISINTEGRATING TAB (S0181) PO (13:35)
[2018-01-10] MEDS: AMITRIPTYLINE 50 MG TAB PO (20:57)
[2018-01-10] MEDS: HYDROXYCHLOROQUINE 200 MG TAB PO (20:57)
[2018-01-10] MEDS: QUEtiapine 300 MG XR TABLET(SEROQUEL XR) PO (20:58)
[2018-01-10] MEDS: DULoxetine 30 MG CAP (CYMBALTA) PO (20:58)
[2018-01-11] MEDS: ACETAMINOPHEN TAB 650MG DOSE (2X325MG) PO ×3 (05:18→21:34)
[2018-01-11 06:08] LABS: BASO # 0.1 10^3/uL (0.0-0.2); BASO % 0.5 % (0.0-1.0); HEMATOCRIT 29.4 % (36.0-47.0); HEMOGLOBIN 10.1 g/dl (12.0-16.0); IMMATURE GRANULOCYTE % 0.6 % (0-3.0); LYMPH # 3.8 10^3/uL (1.5-4.5); LYMPH % 21.7 % (24.0-44.0); MEAN CORPUSCULAR HEMOGLOBIN 29.2 pg (27.0-33.0); MEAN CORPUSCULAR HGB CONC 34.4 g/dl (32.0-36.5); MONO # 0.7 10^3/uL (0.0-0.8); NEUTROPHILS % 73.2 % (36.0-66.0); PLATELET COUNT, AUTOMATED 379 10^3/uL (150-450); RED BLOOD COUNT 3.46 10^6/uL (4.00-5.40); RED CELL DISTRIBUTION WIDTH 15.6 % (11.5-14.5); WHITE BLOOD COUNT 17.7 10^3/uL (4.0-10.0)
[2018-01-11 06:34] LABS: ALKALINE PHOSPHATASE 98 U/L (45-117); ALT/SGPT 22 U/L (12-78); ANION GAP 10 MEQ/L (8-16); AST/SGOT 34 U/L (7-37); BILIRUBIN,TOTAL 0.6 MG/DL (0.2-1.0); BLOOD UREA NITROGEN 10 MG/DL (7-18); CALCIUM LEVEL 7.8 MG/DL (8.5-10.1); CARBON DIOXIDE LEVEL 21 MEQ/L (21-32); CHLORIDE LEVEL 113 MEQ/L (98-107); CREATININE FOR GFR 0.78 MG/DL (0.55-1.30); GLOMERULAR FILTRATION RATE > 60.0 (>60); GLUCOSE, FASTING 69 MG/DL (70-100); POTASSIUM SERUM 3.1 MEQ/L (3.5-5.1); SODIUM LEVEL 144 MEQ/L (136-145)
[2018-01-11 06:35] LABS: ALBUMIN 1.9 GM/DL (3.2-5.2); ALBUMIN/GLOBULIN RATIO 0.53 (1.00-1.93); MAGNESIUM LEVEL 2.2 MG/DL (1.8-2.4); TOTAL PROTEIN 5.5 GM/DL (6.4-8.2)
[2018-01-11] MEDS: METHOCARBAMOL 750 MG TAB PO ×2 (09:41→21:33)
[2018-01-11] MEDS: NORTRIPTYLINE 10 MG CAP PO ×2 (09:41→21:32)
[2018-01-11] MEDS: CYCLOBENZAPRINE 5MG TABLET PO ×3 (09:41→21:31)
[2018-01-11] MEDS: FAMOTIDINE 20 MG TAB PO (09:41)
[2018-01-11] MEDS: miSOPROStol 100 MCG TAB (S0191) PO ×2 (09:41→21:33)
[2018-01-11] MEDS: POTASSIUM CHLORIDE 10 MEQ SR TABLET PO (09:41)
[2018-01-11] MEDS: MONTELUKAST 10 MG TAB PO (09:42)
[2018-01-11] MEDS: FERROUS SULFATE 325MG TAB PO (09:42)
[2018-01-11] MEDS: PANTOPRAZOLE 40MG TAB (PROTONIX) PO ×2 (09:42→21:31)
[2018-01-11] MEDS: TOPIRAMATE (TopAMAX) 25 MG TAB PO ×2 (09:42→21:30)
[2018-01-11] MEDS: NYSTATIN 500,000 U/5 ML SUSP UDC SS ×3 (09:42→21:33)
[2018-01-11] MEDS: MULTIVITAMINS/MINERALS THERAP 1 TAB PO ×2 (09:42→21:32)
[2018-01-11] MEDS: MEGESTROL ES SUSP 625 MG/5 ML UDC PO (09:42)
[2018-01-11] MEDS: GABAPENTIN 400 MG CAP PO ×2 (09:42→21:31)
[2018-01-11] MEDS: FOLIC ACID 1 MG TAB PO (09:42)
[2018-01-11] MEDS: ENOXAPARIN 40 MG/0.4 ML SYRINGE (J1650) SC (09:42)
[2018-01-11] MEDS: predniSONE 20 MG TAB PO (09:46)
[2018-01-11] MEDS: OLANZapine 2.5MG TABLET PO (09:47)
[2018-01-11] MEDS: SYMBICORT 160/4.5MCG INHALER 6GM INH ×2 (10:08→21:49)
[2018-01-11] MEDS: LORazepam 1 MG TAB PO ×2 (11:27→21:31)
[2018-01-11] MEDS: IBUPROFEN 400 MG TAB PO (15:53)
[2018-01-11] MEDS: DULoxetine 30 MG CAP (CYMBALTA) PO (21:30)
[2018-01-11] MEDS: AMITRIPTYLINE 50 MG TAB PO (21:31)
[2018-01-11] MEDS: HYDROXYCHLOROQUINE 200 MG TAB PO (21:32)
[2018-01-11] MEDS: QUEtiapine 300 MG XR TABLET(SEROQUEL XR) PO (21:32)
[2018-01-12 07:02] LABS: HEMATOCRIT 31.8 % (36.0-47.0); HEMOGLOBIN 10.7 g/dl (12.0-16.0); MEAN CORPUSCULAR HEMOGLOBIN 29.2 pg (27.0-33.0); MEAN CORPUSCULAR HGB CONC 33.6 g/dl (32.0-36.5); MEAN CORPUSCULAR VOLUME 86.9 fl (80.0-96.0); PLATELET COUNT, AUTOMATED 449 10^3/uL (150-450); RED BLOOD COUNT 3.66 10^6/uL (4.00-5.40); RED CELL DISTRIBUTION WIDTH 15.6 % (11.5-14.5); WHITE BLOOD COUNT 20.9 10^3/uL (4.0-10.0)
[2018-01-12 07:29] LABS: ALBUMIN/GLOBULIN RATIO 0.53 (1.00-1.93); ALKALINE PHOSPHATASE 105 U/L (45-117); ALT/SGPT 23 U/L (12-78); ANION GAP 8 MEQ/L (8-16); AST/SGOT 39 U/L (7-37); BILIRUBIN,TOTAL 0.5 MG/DL (0.2-1.0); BLOOD UREA NITROGEN 11 MG/DL (7-18); CALCIUM LEVEL 8.1 MG/DL (8.5-10.1); CARBON DIOXIDE LEVEL 21 MEQ/L (21-32); CHLORIDE LEVEL 115 MEQ/L (98-107); CREATININE FOR GFR 0.81 MG/DL (0.55-1.30); GLOMERULAR FILTRATION RATE > 60.0 (>60); GLUCOSE, FASTING 69 MG/DL (70-100); POTASSIUM SERUM 3.8 MEQ/L (3.5-5.1); SODIUM LEVEL 144 MEQ/L (136-145); TOTAL PROTEIN 5.8 GM/DL (6.4-8.2)
[2018-01-12] MEDS: MEGESTROL ES SUSP 625 MG/5 ML UDC PO (09:00)
[2018-01-12] MEDS: SYMBICORT 160/4.5MCG INHALER 6GM INH ×2 (09:12→22:16)
[2018-01-12] MEDS: NYSTATIN 500,000 U/5 ML SUSP UDC SS ×3 (09:18→20:24)
[2018-01-12] MEDS: ENOXAPARIN 40 MG/0.4 ML SYRINGE (J1650) SC (09:19)
[2018-01-12] MEDS: OLANZapine 2.5MG TABLET PO (09:19)
[2018-01-12] MEDS: GABAPENTIN 400 MG CAP PO ×2 (09:19→20:27)
[2018-01-12] MEDS: predniSONE 20 MG TAB PO (09:19)
[2018-01-12] MEDS: FERROUS SULFATE 325MG TAB PO (09:20)
[2018-01-12] MEDS: FOLIC ACID 1 MG TAB PO (09:20)
[2018-01-12] MEDS: TOPIRAMATE (TopAMAX) 25 MG TAB PO ×2 (09:20→20:31)
[2018-01-12] MEDS: LORazepam 1 MG TAB PO ×2 (09:20→15:58)
[2018-01-12] MEDS: miSOPROStol 100 MCG TAB (S0191) PO ×2 (09:20→20:30)
[2018-01-12] MEDS: MONTELUKAST 10 MG TAB PO (09:20)
[2018-01-12] MEDS: MULTIVITAMINS/MINERALS THERAP 1 TAB PO ×2 (09:20→20:31)
[2018-01-12] MEDS: FAMOTIDINE 20 MG TAB PO (09:20)
[2018-01-12] MEDS: PANTOPRAZOLE 40MG TAB (PROTONIX) PO ×2 (09:20→20:27)
[2018-01-12] MEDS: NORTRIPTYLINE 10 MG CAP PO ×2 (09:20→20:29)
[2018-01-12] MEDS: CYCLOBENZAPRINE 5MG TABLET PO ×3 (09:20→20:31)
[2018-01-12] MEDS: METHOCARBAMOL 750 MG TAB PO ×2 (09:22→20:31)
[2018-01-12] MEDS: DULoxetine 30 MG CAP (CYMBALTA) PO (20:28)
[2018-01-12] MEDS: AMITRIPTYLINE 50 MG TAB PO (20:29)
[2018-01-12] MEDS: IBUPROFEN 400 MG TAB PO (20:29)
[2018-01-12] MEDS: HYDROXYCHLOROQUINE 200 MG TAB PO (20:30)
[2018-01-12] MEDS: QUEtiapine 300 MG XR TABLET(SEROQUEL XR) PO (20:31)
[2018-01-13 06:57] LABS: HEMATOCRIT 31.9 % (36.0-47.0); HEMOGLOBIN 10.6 g/dl (12.0-16.0); MEAN CORPUSCULAR HEMOGLOBIN 29.3 pg (27.0-33.0); MEAN CORPUSCULAR HGB CONC 33.2 g/dl (32.0-36.5); MEAN CORPUSCULAR VOLUME 88.1 fl (80.0-96.0); PLATELET COUNT, AUTOMATED 480 10^3/uL (150-450); RED BLOOD COUNT 3.62 10^6/uL (4.00-5.40); RED CELL DISTRIBUTION WIDTH 15.5 % (11.5-14.5); WHITE BLOOD COUNT 15.5 10^3/uL (4.0-10.0)
[2018-01-13 07:31] LABS: ALBUMIN 2.2 GM/DL (3.2-5.2); ALBUMIN/GLOBULIN RATIO 0.58 (1.00-1.93); ALKALINE PHOSPHATASE 102 U/L (45-117); ALT/SGPT 17 U/L (12-78); ANION GAP 9 MEQ/L (8-16); AST/SGOT 17 U/L (7-37); BILIRUBIN,TOTAL 0.4 MG/DL (0.2-1.0); BLOOD UREA NITROGEN 15 MG/DL (7-18); C REACTIVE PROTEIN QUANTITATIV 1.82 MG/DL (0.00-0.30); CALCIUM LEVEL 8.3 MG/DL (8.5-10.1); CARBON DIOXIDE LEVEL 21 MEQ/L (21-32); CHLORIDE LEVEL 113 MEQ/L (98-107); CREATININE FOR GFR 0.74 MG/DL (0.55-1.30); GLOMERULAR FILTRATION RATE > 60.0 (>60); GLUCOSE, FASTING 67 MG/DL (70-100); MAGNESIUM LEVEL 2.3 MG/DL (1.8-2.4); POTASSIUM SERUM 3.6 MEQ/L (3.5-5.1); SODIUM LEVEL 143 MEQ/L (136-145)
[2018-01-13 07:58] LABS: ERYTHROCYTE SEDIMENTATION RATE 61 mm/hr (0-20)
[2018-01-13] MEDS: CYCLOBENZAPRINE 5MG TABLET PO ×3 (08:10→20:30)
[2018-01-13] MEDS: predniSONE 20 MG TAB PO (08:10)
[2018-01-13] MEDS: GABAPENTIN 400 MG CAP PO ×2 (08:10→20:29)
[2018-01-13] MEDS: PANTOPRAZOLE 40MG TAB (PROTONIX) PO ×2 (08:10→20:28)
[2018-01-13] MEDS: MULTIVITAMINS/MINERALS THERAP 1 TAB PO ×2 (08:10→20:29)
[2018-01-13] MEDS: MONTELUKAST 10 MG TAB PO (08:10)
[2018-01-13] MEDS: NYSTATIN 500,000 U/5 ML SUSP UDC SS ×3 (08:10→20:30)
[2018-01-13] MEDS: TOPIRAMATE (TopAMAX) 25 MG TAB PO ×2 (08:10→20:30)
[2018-01-13] MEDS: FERROUS SULFATE 325MG TAB PO (08:10)
[2018-01-13] MEDS: FOLIC ACID 1 MG TAB PO (08:10)
[2018-01-13] MEDS: METHOCARBAMOL 750 MG TAB PO ×2 (08:11→20:29)
[2018-01-13] MEDS: LORazepam 1 MG TAB PO ×3 (08:11→22:31)
[2018-01-13] MEDS: FAMOTIDINE 20 MG TAB PO (08:11)
[2018-01-13] MEDS: NORTRIPTYLINE 10 MG CAP PO ×2 (08:11→20:29)
[2018-01-13] MEDS: miSOPROStol 100 MCG TAB (S0191) PO ×2 (08:11→20:30)
[2018-01-13] MEDS: OLANZapine 2.5MG TABLET PO (08:12)
[2018-01-13] MEDS: MEGESTROL ES SUSP 625 MG/5 ML UDC PO (08:12)
[2018-01-13] MEDS: ENOXAPARIN 40 MG/0.4 ML SYRINGE (J1650) SC (08:12)
[2018-01-13] MEDS: SYMBICORT 160/4.5MCG INHALER 6GM INH (09:00)
[2018-01-13] MEDS ORDERED: DIHYDROERGOTAMINE MESYLATE IV (16:00)
[2018-01-13] MEDS ORDERED: [UNRECOGNIZED DRUG - OTHER] IV (16:00)
[2018-01-13 18:31] LABS: TOTAL 25(OH) VITAMIN D 36.4 NG/ML (30.0-100.0)
[2018-01-13 18:32] LABS: VITAMIN B12 LEVEL 775 PG/ML (247-911)
[2018-01-13 18:32] LABS: FOLATE > 24.0 NG/ML (>5.4)
[2018-01-13] MEDS: DULoxetine 30 MG CAP (CYMBALTA) PO (20:28)
[2018-01-13] MEDS: AMITRIPTYLINE 50 MG TAB PO (20:28)
[2018-01-13] MEDS: QUEtiapine 300 MG XR TABLET(SEROQUEL XR) PO (20:28)
[2018-01-13] MEDS: HYDROXYCHLOROQUINE 200 MG TAB PO (20:42)
[2018-01-13] MEDS: [UNRECOGNIZED DRUG - OTHER] IM (20:43)
[2018-01-13] MEDS: DIHYDROERGOTAMINE MESYLATE IM (20:43)
[2018-01-13] MEDS: ONDANSETRON 4 MG ORAL DISINTEGRATING TAB (S0181) PO (22:31)
[2018-01-13] MEDS: IBUPROFEN 400 MG TAB PO (22:31)
[2018-01-14 06:48] LABS: HEMOGLOBIN 11.5 g/dl (12.0-16.0); RED BLOOD COUNT 3.93 10^6/uL (4.00-5.40); WHITE BLOOD COUNT 12.4 10^3/uL (4.0-10.0)
[2018-01-14 06:49] LABS: HEMATOCRIT 34.9 % (36.0-47.0); MEAN CORPUSCULAR HEMOGLOBIN 29.3 pg (27.0-33.0); MEAN CORPUSCULAR VOLUME 88.8 fl (80.0-96.0); PLATELET COUNT, AUTOMATED 567 10^3/uL (150-450); RED CELL DISTRIBUTION WIDTH 15.5 % (11.5-14.5)
[2018-01-14 07:13] LABS: ALBUMIN 2.3 GM/DL (3.2-5.2); ALBUMIN/GLOBULIN RATIO 0.61 (1.00-1.93); ALKALINE PHOSPHATASE 104 U/L (45-117); ALT/SGPT 20 U/L (12-78); ANION GAP 8 MEQ/L (8-16); AST/SGOT 18 U/L (7-37); BILIRUBIN,TOTAL 0.3 MG/DL (0.2-1.0); BLOOD UREA NITROGEN 14 MG/DL (7-18); C REACTIVE PROTEIN QUANTITATIV 1.01 MG/DL (0.00-0.30); CALCIUM LEVEL 8.3 MG/DL (8.5-10.1); CARBON DIOXIDE LEVEL 21 MEQ/L (21-32); CHLORIDE LEVEL 113 MEQ/L (98-107); CREATININE FOR GFR 0.81 MG/DL (0.55-1.30); GLOMERULAR FILTRATION RATE > 60.0 (>60); GLUCOSE, FASTING 73 MG/DL (70-100); MAGNESIUM LEVEL 2.3 MG/DL (1.8-2.4); POTASSIUM SERUM 3.9 MEQ/L (3.5-5.1); SODIUM LEVEL 142 MEQ/L (136-145); TOTAL PROTEIN 6.1 GM/DL (6.4-8.2)
[2018-01-14 07:38] LABS: ERYTHROCYTE SEDIMENTATION RATE 55 mm/hr (0-20)
[2018-01-14] MEDS: SYMBICORT 160/4.5MCG INHALER 6GM INH ×2 (08:32→20:32)
[2018-01-14] MEDS: NYSTATIN 500,000 U/5 ML SUSP UDC SS ×3 (09:34→21:33)
[2018-01-14] MEDS: ENOXAPARIN 40 MG/0.4 ML SYRINGE (J1650) SC (09:34)
[2018-01-14] MEDS: MONTELUKAST 10 MG TAB PO (09:34)
[2018-01-14] MEDS: OLANZapine 2.5MG TABLET PO (09:34)
[2018-01-14] MEDS: predniSONE 20 MG TAB PO (09:34)
[2018-01-14] MEDS: PANTOPRAZOLE 40MG TAB (PROTONIX) PO ×2 (09:34→21:38)
[2018-01-14] MEDS: METHOCARBAMOL 750 MG TAB PO ×2 (09:34→21:33)
[2018-01-14] MEDS: MEGESTROL ES SUSP 625 MG/5 ML UDC PO (09:34)
[2018-01-14] MEDS: NORTRIPTYLINE 10 MG CAP PO ×2 (09:35→21:36)
[2018-01-14] MEDS: FERROUS SULFATE 325MG TAB PO (09:35)
[2018-01-14] MEDS: FOLIC ACID 1 MG TAB PO (09:35)
[2018-01-14] MEDS: FAMOTIDINE 20 MG TAB PO (09:35)
[2018-01-14] MEDS: miSOPROStol 100 MCG TAB (S0191) PO ×2 (09:35→21:34)
[2018-01-14] MEDS: GABAPENTIN 400 MG CAP PO ×2 (09:35→21:37)
[2018-01-14] MEDS: CYCLOBENZAPRINE 5MG TABLET PO ×3 (09:35→21:37)
[2018-01-14] MEDS: TOPIRAMATE (TopAMAX) 25 MG TAB PO ×2 (09:35→21:38)
[2018-01-14] MEDS: MULTIVITAMINS/MINERALS THERAP 1 TAB PO ×2 (09:35→21:34)
[2018-01-14] MEDS: ACETAMINOPHEN TAB 650MG DOSE (2X325MG) PO (09:54)
[2018-01-14] MEDS: oxyCODONE 5MG TAB PO ×2 (12:09→21:40)
[2018-01-14] MEDS: [UNRECOGNIZED DRUG - OTHER] IM ×2 (16:43→23:21)
[2018-01-14] MEDS: DIHYDROERGOTAMINE MESYLATE IM ×2 (16:43→23:21)
[2018-01-14] MEDS: QUEtiapine 300 MG XR TABLET(SEROQUEL XR) PO (21:33)
[2018-01-14] MEDS: HYDROXYCHLOROQUINE 200 MG TAB PO (21:35)
[2018-01-14] MEDS: AMITRIPTYLINE 50 MG TAB PO (21:37)
[2018-01-14] MEDS: DULoxetine 30 MG CAP (CYMBALTA) PO (21:38)
[2018-01-14] MEDS: LORazepam 1 MG TAB PO (21:42)
[2018-01-15] MEDS: oxyCODONE 5MG TAB PO ×2 (03:41→16:31)
[2018-01-15 05:56] LABS: HEMATOCRIT 39.1 % (36.0-47.0); HEMOGLOBIN 12.5 g/dl (12.0-16.0); MEAN CORPUSCULAR HEMOGLOBIN 28.9 pg (27.0-33.0); MEAN CORPUSCULAR VOLUME 90.3 fl (80.0-96.0); PLATELET COUNT, AUTOMATED 583 10^3/uL (150-450); RED BLOOD COUNT 4.33 10^6/uL (4.00-5.40)
[2018-01-15 06:21] LABS: ALBUMIN 2.5 GM/DL (3.2-5.2); ALBUMIN/GLOBULIN RATIO 0.68 (1.00-1.93); ALKALINE PHOSPHATASE 104 U/L (45-117); ALT/SGPT 21 U/L (12-78); ANION GAP 7 MEQ/L (8-16); AST/SGOT 19 U/L (7-37); BILIRUBIN,TOTAL 0.3 MG/DL (0.2-1.0); BLOOD UREA NITROGEN 12 MG/DL (7-18); C REACTIVE PROTEIN QUANTITATIV 0.56 MG/DL (0.00-0.30); CALCIUM LEVEL 8.5 MG/DL (8.5-10.1); CARBON DIOXIDE LEVEL 24 MEQ/L (21-32); CHLORIDE LEVEL 112 MEQ/L (98-107); CREATININE FOR GFR 0.83 MG/DL (0.55-1.30); GLOMERULAR FILTRATION RATE > 60.0 (>60); GLUCOSE, FASTING 73 MG/DL (70-100); MAGNESIUM LEVEL 2.2 MG/DL (1.8-2.4); POTASSIUM SERUM 3.8 MEQ/L (3.5-5.1); SODIUM LEVEL 143 MEQ/L (136-145); TOTAL PROTEIN 6.2 GM/DL (6.4-8.2)
[2018-01-15 06:26] LABS: ERYTHROCYTE SEDIMENTATION RATE 44 mm/hr (0-20)
[2018-01-15] MEDS: SYMBICORT 160/4.5MCG INHALER 6GM INH ×2 (08:06→21:11)
[2018-01-15] MEDS: TOPIRAMATE (TopAMAX) 25 MG TAB PO ×2 (08:43→22:03)
[2018-01-15] MEDS: FOLIC ACID 1 MG TAB PO (08:43)
[2018-01-15] MEDS: OLANZapine 2.5MG TABLET PO (08:43)
[2018-01-15] MEDS: miSOPROStol 100 MCG TAB (S0191) PO ×2 (08:43→22:02)
[2018-01-15] MEDS: predniSONE 50 MG TAB PO (08:43)
[2018-01-15] MEDS: NYSTATIN 500,000 U/5 ML SUSP UDC SS (08:43)
[2018-01-15] MEDS: FERROUS SULFATE 325MG TAB PO (08:43)
[2018-01-15] MEDS: CYCLOBENZAPRINE 5MG TABLET PO ×3 (08:43→22:03)
[2018-01-15] MEDS: METHOCARBAMOL 750 MG TAB PO ×2 (08:44→22:02)
[2018-01-15] MEDS: FAMOTIDINE 20 MG TAB PO (08:44)
[2018-01-15] MEDS: LORazepam 1 MG TAB PO ×3 (08:44→22:17)
[2018-01-15] MEDS: MEGESTROL ES SUSP 625 MG/5 ML UDC PO (08:44)
[2018-01-15] MEDS: NORTRIPTYLINE 10 MG CAP PO ×2 (08:44→22:01)
[2018-01-15] MEDS: GABAPENTIN 400 MG CAP PO ×2 (08:44→22:03)
[2018-01-15] MEDS: PANTOPRAZOLE 40MG TAB (PROTONIX) PO ×2 (08:44→22:03)
[2018-01-15] MEDS: MONTELUKAST 10 MG TAB PO (08:44)
[2018-01-15] MEDS: ENOXAPARIN 40 MG/0.4 ML SYRINGE (J1650) SC (08:45)
[2018-01-15] MEDS: MULTIVITAMINS/MINERALS THERAP 1 TAB PO ×2 (08:47→22:03)
[2018-01-15] MEDS: NICOTINE 14 MG/24 HR TRANSDERMAL TD (17:41)
[2018-01-15] MEDS: HYDROXYCHLOROQUINE 200 MG TAB PO (21:00)
[2018-01-15] MEDS: QUEtiapine 300 MG XR TABLET(SEROQUEL XR) PO (22:02)
[2018-01-15] MEDS: DULoxetine 30 MG CAP (CYMBALTA) PO (22:02)
[2018-01-15] MEDS: AMITRIPTYLINE 50 MG TAB PO (22:04)
[2018-01-15] MEDS: DIHYDROERGOTAMINE MESYLATE IM (22:55)
[2018-01-15] MEDS: [UNRECOGNIZED DRUG - OTHER] IM (22:55)
[2018-01-15] MEDS: PROCHLORPERAZINE 5 MG TAB (S0183) PO (22:55)
[2018-01-16 07:20] LABS: HEMATOCRIT 37.3 % (36.0-47.0); HEMOGLOBIN 12.1 g/dl (12.0-16.0); MEAN CORPUSCULAR HEMOGLOBIN 29.4 pg (27.0-33.0); MEAN CORPUSCULAR HGB CONC 32.4 g/dl (32.0-36.5); MEAN CORPUSCULAR VOLUME 90.8 fl (80.0-96.0); PLATELET COUNT, AUTOMATED 604 10^3/uL (150-450); RED BLOOD COUNT 4.11 10^6/uL (4.00-5.40); RED CELL DISTRIBUTION WIDTH 15.2 % (11.5-14.5); WHITE BLOOD COUNT 12.3 10^3/uL (4.0-10.0)
[2018-01-16 07:45] LABS: ALBUMIN 2.4 GM/DL (3.2-5.2); ALBUMIN/GLOBULIN RATIO 0.67 (1.00-1.93); ALKALINE PHOSPHATASE 112 U/L (45-117); ALT/SGPT 23 U/L (12-78); ANION GAP 9 MEQ/L (8-16); AST/SGOT 16 U/L (7-37); BILIRUBIN,TOTAL 0.3 MG/DL (0.2-1.0); BLOOD UREA NITROGEN 11 MG/DL (7-18); C REACTIVE PROTEIN QUANTITATIV 0.38 MG/DL (0.00-0.30); CALCIUM LEVEL 8.5 MG/DL (8.5-10.1); CARBON DIOXIDE LEVEL 22 MEQ/L (21-32); CHLORIDE LEVEL 111 MEQ/L (98-107); CREATININE FOR GFR 0.79 MG/DL (0.55-1.30); GLOMERULAR FILTRATION RATE > 60.0 (>60); GLUCOSE, FASTING 77 MG/DL (70-100); MAGNESIUM LEVEL 2.1 MG/DL (1.8-2.4); POTASSIUM SERUM 3.5 MEQ/L (3.5-5.1); SODIUM LEVEL 142 MEQ/L (136-145)
[2018-01-16 08:07] LABS: ERYTHROCYTE SEDIMENTATION RATE 46 mm/hr (0-20)
[2018-01-16] MEDS: FAMOTIDINE 20 MG TAB PO ×2 (09:55→16:20)
[2018-01-16] MEDS: MULTIVITAMINS/MINERALS THERAP 1 TAB PO ×2 (09:55→20:52)
[2018-01-16] MEDS: METHOCARBAMOL 750 MG TAB PO ×2 (09:55→20:51)
[2018-01-16] MEDS: CYCLOBENZAPRINE 5MG TABLET PO ×3 (09:55→20:53)
[2018-01-16] MEDS: NORTRIPTYLINE 10 MG CAP PO ×2 (09:56→20:50)
[2018-01-16] MEDS: FERROUS SULFATE 325MG TAB PO (09:56)
[2018-01-16] MEDS: predniSONE 50 MG TAB PO (09:56)
[2018-01-16] MEDS: PANTOPRAZOLE 40MG TAB (PROTONIX) PO ×2 (09:56→20:51)
[2018-01-16] MEDS: miSOPROStol 100 MCG TAB (S0191) PO ×2 (09:56→20:51)
[2018-01-16] MEDS: GABAPENTIN 400 MG CAP PO ×2 (09:56→20:51)
[2018-01-16] MEDS: LORazepam 1 MG TAB PO ×2 (09:56→20:53)
[2018-01-16] MEDS: MONTELUKAST 10 MG TAB PO (09:56)
[2018-01-16] MEDS: TOPIRAMATE (TopAMAX) 25 MG TAB PO ×2 (09:56→20:52)
[2018-01-16] MEDS: FOLIC ACID 1 MG TAB PO (09:57)
[2018-01-16] MEDS: OLANZapine 2.5MG TABLET PO (09:57)
[2018-01-16] MEDS: MEGESTROL ES SUSP 625 MG/5 ML UDC PO (09:57)
[2018-01-16] MEDS: ENOXAPARIN 40 MG/0.4 ML SYRINGE (J1650) SC (09:58)
[2018-01-16] MEDS: SYMBICORT 160/4.5MCG INHALER 6GM INH ×2 (11:52→21:16)
[2018-01-16] MEDS: DIHYDROERGOTAMINE MESYLATE IM (13:05)
[2018-01-16] MEDS: [UNRECOGNIZED DRUG - OTHER] IM (13:05)
[2018-01-16] MEDS: ONDANSETRON 4 MG ORAL DISINTEGRATING TAB (S0181) PO (14:55)
[2018-01-16] MEDS ORDERED: NS 500 ML IV (15:15)
[2018-01-16] MEDS ORDERED: MAG SULF 1GM/100ML (MAG RUN) 1 GM in APPROPRIATE DILUENT 1 EA IV (15:30)
[2018-01-16] MEDS: HYDROXYCHLOROQUINE 200 MG TAB PO (20:50)
[2018-01-16] MEDS: DULoxetine 30 MG CAP (CYMBALTA) PO (20:51)
[2018-01-16] MEDS: AMITRIPTYLINE 50 MG TAB PO (20:51)
[2018-01-16] MEDS: oxyCODONE 5MG TAB PO (20:53)
[2018-01-16] MEDS: QUEtiapine 300 MG XR TABLET(SEROQUEL XR) PO (20:53)
[2018-01-17] MEDS: oxyCODONE 5MG TAB PO ×2 (07:05→18:30)
[2018-01-17 07:19] LABS: HEMATOCRIT 34.8 % (36.0-47.0); HEMOGLOBIN 11.3 g/dl (12.0-16.0); MEAN CORPUSCULAR HEMOGLOBIN 29.4 pg (27.0-33.0); MEAN CORPUSCULAR HGB CONC 32.5 g/dl (32.0-36.5); MEAN CORPUSCULAR VOLUME 90.4 fl (80.0-96.0); PLATELET COUNT, AUTOMATED 611 10^3/uL (150-450); RED BLOOD COUNT 3.85 10^6/uL (4.00-5.40); RED CELL DISTRIBUTION WIDTH 15.1 % (11.5-14.5); WHITE BLOOD COUNT 12.4 10^3/uL (4.0-10.0)
[2018-01-17] MEDS: SYMBICORT 160/4.5MCG INHALER 6GM INH ×2 (07:34→20:51)
[2018-01-17 07:54] LABS: ALBUMIN 2.4 GM/DL (3.2-5.2); ALBUMIN/GLOBULIN RATIO 0.71 (1.00-1.93); ALKALINE PHOSPHATASE 96 U/L (45-117); ALT/SGPT 37 U/L (12-78); ANION GAP 10 MEQ/L (8-16); AST/SGOT 31 U/L (7-37); BILIRUBIN,TOTAL 0.3 MG/DL (0.2-1.0); BLOOD UREA NITROGEN 12 MG/DL (7-18); CALCIUM LEVEL 8.4 MG/DL (8.5-10.1); CARBON DIOXIDE LEVEL 23 MEQ/L (21-32); CHLORIDE LEVEL 109 MEQ/L (98-107); CREATININE FOR GFR 0.81 MG/DL (0.55-1.30); GLOMERULAR FILTRATION RATE > 60.0 (>60); GLUCOSE, FASTING 72 MG/DL (70-100); MAGNESIUM LEVEL 2.2 MG/DL (1.8-2.4); POTASSIUM SERUM 3.8 MEQ/L (3.5-5.1); SODIUM LEVEL 142 MEQ/L (136-145); TOTAL PROTEIN 5.8 GM/DL (6.4-8.2)
[2018-01-17] MEDS: FOLIC ACID 1 MG TAB PO (09:48)
[2018-01-17] MEDS: NORTRIPTYLINE 10 MG CAP PO ×2 (09:48→20:57)
[2018-01-17] MEDS: GABAPENTIN 400 MG CAP PO ×2 (09:48→20:58)
[2018-01-17] MEDS: OLANZapine 2.5MG TABLET PO (09:48)
[2018-01-17] MEDS: PANTOPRAZOLE 40MG TAB (PROTONIX) PO ×2 (09:48→20:59)
[2018-01-17] MEDS: miSOPROStol 100 MCG TAB (S0191) PO ×2 (09:49→20:58)
[2018-01-17] MEDS: MULTIVITAMINS/MINERALS THERAP 1 TAB PO ×2 (09:50→20:58)
[2018-01-17] MEDS: CYCLOBENZAPRINE 5MG TABLET PO ×3 (09:50→20:59)
[2018-01-17] MEDS: predniSONE 50 MG TAB PO (09:51)
[2018-01-17] MEDS: METHOTREXATE 2.5 MG TAB (J8610 PER 2.5MG) PO (09:51)
[2018-01-17] MEDS: FAMOTIDINE 20 MG TAB PO (09:51)
[2018-01-17] MEDS: MONTELUKAST 10 MG TAB PO (09:51)
[2018-01-17] MEDS: TOPIRAMATE (TopAMAX) 25 MG TAB PO ×2 (09:52→20:59)
[2018-01-17] MEDS: METHOCARBAMOL 750 MG TAB PO ×2 (09:52→20:58)
[2018-01-17] MEDS: MEGESTROL ES SUSP 625 MG/5 ML UDC PO (09:52)
[2018-01-17] MEDS: [UNRECOGNIZED DRUG - OTHER] IM (09:53)
[2018-01-17] MEDS: DIHYDROERGOTAMINE MESYLATE IM (09:53)
[2018-01-17] MEDS: NICOTINE 14 MG/24 HR TRANSDERMAL TD (09:53)
[2018-01-17] MEDS: ENOXAPARIN 40 MG/0.4 ML SYRINGE (J1650) SC (09:53)
[2018-01-17] MEDS: LORazepam 1 MG TAB PO ×2 (15:06→20:59)
[2018-01-17] MEDS: EXCEDRIN MIGRAINE TABLET PO (18:29)
[2018-01-17] MEDS: PROCHLORPERAZINE 5 MG TAB (S0183) PO (18:29)
[2018-01-17] MEDS: DULoxetine 30 MG CAP (CYMBALTA) PO (20:57)
[2018-01-17] MEDS: AMITRIPTYLINE 50 MG TAB PO (20:57)
[2018-01-17] MEDS: QUEtiapine 300 MG XR TABLET(SEROQUEL XR) PO (20:58)
[2018-01-17] MEDS: HYDROXYCHLOROQUINE 200 MG TAB PO (21:07)
[2018-01-17] MEDS: ACETAMINOPHEN TAB 650MG DOSE (2X325MG) PO (23:01)
[2018-01-18 00:07] LABS: VITAMIN B1 LEVEL WHOLE BLOOD 230.1 nmol/L (66.5-200.0)
[2018-01-18 05:56] LABS: HEMATOCRIT 35.5 % (36.0-47.0); HEMOGLOBIN 11.4 g/dl (12.0-16.0); MEAN CORPUSCULAR HEMOGLOBIN 29.5 pg (27.0-33.0); MEAN CORPUSCULAR HGB CONC 32.1 g/dl (32.0-36.5); MEAN CORPUSCULAR VOLUME 91.7 fl (80.0-96.0); PLATELET COUNT, AUTOMATED 551 10^3/uL (150-450); RED BLOOD COUNT 3.87 10^6/uL (4.00-5.40); WHITE BLOOD COUNT 13.7 10^3/uL (4.0-10.0)
[2018-01-18 06:10] LABS: ALBUMIN 2.2 GM/DL (3.2-5.2); ALBUMIN/GLOBULIN RATIO 0.69 (1.00-1.93); ALKALINE PHOSPHATASE 82 U/L (45-117); ALT/SGPT 31 U/L (12-78); ANION GAP 7 MEQ/L (8-16); AST/SGOT 12 U/L (7-37); BILIRUBIN,TOTAL 0.2 MG/DL (0.2-1.0); BLOOD UREA NITROGEN 13 MG/DL (7-18); CARBON DIOXIDE LEVEL 22 MEQ/L (21-32); CHLORIDE LEVEL 113 MEQ/L (98-107); CREATININE FOR GFR 0.85 MG/DL (0.55-1.30); GLOMERULAR FILTRATION RATE > 60.0 (>60); GLUCOSE, FASTING 77 MG/DL (70-100); POTASSIUM SERUM 4.2 MEQ/L (3.5-5.1); SODIUM LEVEL 142 MEQ/L (136-145); TOTAL PROTEIN 5.4 GM/DL (6.4-8.2)
[2018-01-18] MEDS: SYMBICORT 160/4.5MCG INHALER 6GM INH (09:01)
[2018-01-18 09:11] LABS: VITAMIN E LEVEL 7.7 mg/L (5.3-16.8)
[2018-01-18] MEDS: GABAPENTIN 400 MG CAP PO ×2 (09:18→21:12)
[2018-01-18] MEDS: TOPIRAMATE (TopAMAX) 25 MG TAB PO ×2 (09:18→21:11)
[2018-01-18] MEDS: miSOPROStol 100 MCG TAB (S0191) PO ×2 (09:18→21:20)
[2018-01-18] MEDS: MEGESTROL ES SUSP 625 MG/5 ML UDC PO (09:18)
[2018-01-18] MEDS: ENOXAPARIN 40 MG/0.4 ML SYRINGE (J1650) SC (09:18)
[2018-01-18] MEDS: NORTRIPTYLINE 10 MG CAP PO ×2 (09:18→21:20)
[2018-01-18] MEDS: MONTELUKAST 10 MG TAB PO (09:18)
[2018-01-18] MEDS: predniSONE 50 MG TAB PO (09:19)
[2018-01-18] MEDS: PANTOPRAZOLE 40MG TAB (PROTONIX) PO ×2 (09:19→21:12)
[2018-01-18] MEDS: OLANZapine 2.5MG TABLET PO (09:19)
[2018-01-18] MEDS: FAMOTIDINE 20 MG TAB PO (09:19)
[2018-01-18] MEDS: FOLIC ACID 1 MG TAB PO (09:19)
[2018-01-18] MEDS: METHOCARBAMOL 750 MG TAB PO ×2 (09:19→21:11)
[2018-01-18] MEDS: MULTIVITAMINS/MINERALS THERAP 1 TAB PO ×2 (09:19→21:12)
[2018-01-18] MEDS: CYCLOBENZAPRINE 5MG TABLET PO ×3 (09:19→21:12)
[2018-01-18] MEDS: PROCHLORPERAZINE 5 MG TAB (S0183) PO (09:34)
[2018-01-18] MEDS: EXCEDRIN MIGRAINE TABLET PO (09:37)
[2018-01-18] MEDS: oxyCODONE 5MG TAB PO ×2 (14:28→22:51)
[2018-01-18] MEDS: AMITRIPTYLINE 50 MG TAB PO (21:11)
[2018-01-18] MEDS: HYDROXYCHLOROQUINE 200 MG TAB PO (21:12)
[2018-01-18] MEDS: QUEtiapine 300 MG XR TABLET(SEROQUEL XR) PO (21:12)
[2018-01-18] MEDS: DULoxetine 30 MG CAP (CYMBALTA) PO (21:12)
[2018-01-18] MEDS: LORazepam 1 MG TAB PO (22:51)
[2018-01-19 06:25] LABS: HEMATOCRIT 36.3 % (36.0-47.0); HEMOGLOBIN 11.8 g/dl (12.0-16.0); MEAN CORPUSCULAR HEMOGLOBIN 29.1 pg (27.0-33.0); MEAN CORPUSCULAR HGB CONC 32.5 g/dl (32.0-36.5); MEAN CORPUSCULAR VOLUME 89.6 fl (80.0-96.0); PLATELET COUNT, AUTOMATED 569 10^3/uL (150-450); RED BLOOD COUNT 4.05 10^6/uL (4.00-5.40); RED CELL DISTRIBUTION WIDTH 14.6 % (11.5-14.5); WHITE BLOOD COUNT 14.6 10^3/uL (4.0-10.0)
[2018-01-19 06:43] LABS: ALBUMIN 2.5 GM/DL (3.2-5.2); ALBUMIN/GLOBULIN RATIO 0.78 (1.00-1.93); ALKALINE PHOSPHATASE 80 U/L (45-117); ALT/SGPT 27 U/L (12-78); ANION GAP 7 MEQ/L (8-16); AST/SGOT 11 U/L (7-37); BILIRUBIN,TOTAL 0.2 MG/DL (0.2-1.0); BLOOD UREA NITROGEN 12 MG/DL (7-18); CALCIUM LEVEL 8.3 MG/DL (8.5-10.1); CARBON DIOXIDE LEVEL 23 MEQ/L (21-32); CHLORIDE LEVEL 111 MEQ/L (98-107); CREATININE FOR GFR 0.75 MG/DL (0.55-1.30); GLOMERULAR FILTRATION RATE > 60.0 (>60); GLUCOSE, FASTING 76 MG/DL (70-100); SODIUM LEVEL 141 MEQ/L (136-145); TOTAL PROTEIN 5.7 GM/DL (6.4-8.2)
[2018-01-19] MEDS: SYMBICORT 160/4.5MCG INHALER 6GM INH ×2 (08:22→21:22)
[2018-01-19] MEDS: MEGESTROL ES SUSP 625 MG/5 ML UDC PO (09:27)
[2018-01-19] MEDS: oxyCODONE 5MG TAB PO ×2 (09:28→21:43)
[2018-01-19] MEDS: ENOXAPARIN 40 MG/0.4 ML SYRINGE (J1650) SC (09:28)
[2018-01-19] MEDS: PANTOPRAZOLE 40MG TAB (PROTONIX) PO ×2 (09:28→21:42)
[2018-01-19] MEDS: FAMOTIDINE 20 MG TAB PO (09:29)
[2018-01-19] MEDS: LORazepam 1 MG TAB PO ×2 (09:29→17:13)
[2018-01-19] MEDS: predniSONE 50 MG TAB PO (09:29)
[2018-01-19] MEDS: MULTIVITAMINS/MINERALS THERAP 1 TAB PO ×2 (09:29→21:43)
[2018-01-19] MEDS: OLANZapine 2.5MG TABLET PO (09:29)
[2018-01-19] MEDS: CYCLOBENZAPRINE 5MG TABLET PO ×3 (09:29→21:42)
[2018-01-19] MEDS: miSOPROStol 100 MCG TAB (S0191) PO ×2 (09:29→21:42)
[2018-01-19] MEDS: METHOCARBAMOL 750 MG TAB PO ×2 (09:30→21:43)
[2018-01-19] MEDS: NORTRIPTYLINE 10 MG CAP PO ×2 (09:30→21:41)
[2018-01-19] MEDS: MONTELUKAST 10 MG TAB PO (09:30)
[2018-01-19] MEDS: TOPIRAMATE (TopAMAX) 25 MG TAB PO ×2 (09:30→21:42)
[2018-01-19] MEDS: FOLIC ACID 1 MG TAB PO (09:31)
[2018-01-19] MEDS: GABAPENTIN 400 MG CAP PO ×2 (09:31→21:43)
[2018-01-19] MEDS: FIORICET TAB PO (12:29)
[2018-01-19] MEDS: EXCEDRIN MIGRAINE TABLET PO (17:13)
[2018-01-19] MEDS: ONDANSETRON 4 MG ORAL DISINTEGRATING TAB (S0181) PO (17:51)
[2018-01-19] MEDS: DULoxetine 30 MG CAP (CYMBALTA) PO (21:41)
[2018-01-19] MEDS: AMITRIPTYLINE 50 MG TAB PO (21:42)
[2018-01-19] MEDS: QUEtiapine 300 MG XR TABLET(SEROQUEL XR) PO (21:42)
[2018-01-19] MEDS: HYDROXYCHLOROQUINE 200 MG TAB PO (21:42)
[2018-01-20 05:53] LABS: HEMATOCRIT 33.2 % (36.0-47.0); HEMOGLOBIN 10.9 g/dl (12.0-16.0); MEAN CORPUSCULAR HEMOGLOBIN 29.3 pg (27.0-33.0); MEAN CORPUSCULAR HGB CONC 32.8 g/dl (32.0-36.5); MEAN CORPUSCULAR VOLUME 89.2 fl (80.0-96.0); PLATELET COUNT, AUTOMATED 531 10^3/uL (150-450); RED BLOOD COUNT 3.72 10^6/uL (4.00-5.40); RED CELL DISTRIBUTION WIDTH 14.4 % (11.5-14.5)
[2018-01-20 06:15] LABS: ALBUMIN 2.5 GM/DL (3.2-5.2); ALBUMIN/GLOBULIN RATIO 0.83 (1.00-1.93); ALKALINE PHOSPHATASE 160 U/L (45-117); ALT/SGPT 279 U/L (12-78); ANION GAP 8 MEQ/L (8-16); AST/SGOT 178 U/L (7-37); BILIRUBIN,TOTAL 0.3 MG/DL (0.2-1.0); BLOOD UREA NITROGEN 12 MG/DL (7-18); CALCIUM LEVEL 8.2 MG/DL (8.5-10.1); CARBON DIOXIDE LEVEL 23 MEQ/L (21-32); CHLORIDE LEVEL 105 MEQ/L (98-107); CREATININE FOR GFR 0.76 MG/DL (0.55-1.30); GLOMERULAR FILTRATION RATE > 60.0 (>60); GLUCOSE, FASTING 75 MG/DL (70-100); POTASSIUM SERUM 3.9 MEQ/L (3.5-5.1); SODIUM LEVEL 136 MEQ/L (136-145); TOTAL PROTEIN 5.5 GM/DL (6.4-8.2)
[2018-01-20] MEDS: MULTIVITAMINS/MINERALS THERAP 1 TAB PO ×2 (09:24→21:49)
[2018-01-20] MEDS: MEGESTROL ES SUSP 625 MG/5 ML UDC PO (09:24)
[2018-01-20] MEDS: ENOXAPARIN 40 MG/0.4 ML SYRINGE (J1650) SC (09:24)
[2018-01-20] MEDS: NORTRIPTYLINE 10 MG CAP PO ×2 (09:24→21:48)
[2018-01-20] MEDS: OLANZapine 2.5MG TABLET PO (09:24)
[2018-01-20] MEDS: METHOCARBAMOL 750 MG TAB PO ×2 (09:25→21:49)
[2018-01-20] MEDS: CYCLOBENZAPRINE 5MG TABLET PO ×3 (09:25→21:49)
[2018-01-20] MEDS: MONTELUKAST 10 MG TAB PO (09:25)
[2018-01-20] MEDS: miSOPROStol 100 MCG TAB (S0191) PO ×2 (09:25→21:48)
[2018-01-20] MEDS: predniSONE 50 MG TAB PO (09:25)
[2018-01-20] MEDS: TOPIRAMATE (TopAMAX) 25 MG TAB PO ×2 (09:25→21:49)
[2018-01-20] MEDS: PANTOPRAZOLE 40MG TAB (PROTONIX) PO ×2 (09:25→21:49)
[2018-01-20] MEDS: FAMOTIDINE 20 MG TAB PO (09:25)
[2018-01-20] MEDS: GABAPENTIN 400 MG CAP PO ×2 (09:25→21:48)
[2018-01-20] MEDS: FOLIC ACID 1 MG TAB PO (09:26)
[2018-01-20] MEDS: SYMBICORT 160/4.5MCG INHALER 6GM INH ×2 (09:38→21:00)
[2018-01-20] MEDS: FIORICET TAB PO (11:06)
[2018-01-20] MEDS: LORazepam 1 MG TAB PO ×2 (15:07→21:50)
[2018-01-20] MEDS: oxyCODONE 5MG TAB PO (17:04)
[2018-01-20] MEDS: SENOKOT S TAB PO (17:49)
[2018-01-20] MEDS: AMITRIPTYLINE 50 MG TAB PO (21:48)
[2018-01-20] MEDS: DULoxetine 30 MG CAP (CYMBALTA) PO (21:49)
[2018-01-20] MEDS: QUEtiapine 300 MG XR TABLET(SEROQUEL XR) PO (21:49)
[2018-01-20] MEDS: HYDROXYCHLOROQUINE 200 MG TAB PO (21:50)
[2018-01-21 07:08] LABS: HEMATOCRIT 34.8 % (36.0-47.0); HEMOGLOBIN 11.4 g/dl (12.0-16.0); MEAN CORPUSCULAR HEMOGLOBIN 28.8 pg (27.0-33.0); MEAN CORPUSCULAR HGB CONC 32.8 g/dl (32.0-36.5); MEAN CORPUSCULAR VOLUME 87.9 fl (80.0-96.0); PLATELET COUNT, AUTOMATED 525 10^3/uL (150-450); RED BLOOD COUNT 3.96 10^6/uL (4.00-5.40); RED CELL DISTRIBUTION WIDTH 14.6 % (11.5-14.5); WHITE BLOOD COUNT 13.7 10^3/uL (4.0-10.0)
[2018-01-21] MEDS: SYMBICORT 160/4.5MCG INHALER 6GM INH ×2 (07:40→21:13)
[2018-01-21] MEDS: OLANZapine 2.5MG TABLET PO (07:48)
[2018-01-21] MEDS: miSOPROStol 100 MCG TAB (S0191) PO ×2 (07:48→20:11)
[2018-01-21] MEDS: METHOCARBAMOL 750 MG TAB PO ×2 (07:48→20:09)
[2018-01-21] MEDS: MULTIVITAMINS/MINERALS THERAP 1 TAB PO ×2 (07:48→20:09)
[2018-01-21] MEDS: GABAPENTIN 400 MG CAP PO ×2 (07:48→20:11)
[2018-01-21] MEDS: CYCLOBENZAPRINE 5MG TABLET PO ×3 (07:49→20:11)
[2018-01-21] MEDS: predniSONE 50 MG TAB PO (07:49)
[2018-01-21] MEDS: FAMOTIDINE 20 MG TAB PO (07:49)
[2018-01-21] MEDS: FOLIC ACID 1 MG TAB PO (07:49)
[2018-01-21] MEDS: LORazepam 1 MG TAB PO ×2 (07:49→16:20)
[2018-01-21] MEDS: MEGESTROL ES SUSP 625 MG/5 ML UDC PO (07:49)
[2018-01-21] MEDS: MONTELUKAST 10 MG TAB PO (07:49)
[2018-01-21] MEDS: PANTOPRAZOLE 40MG TAB (PROTONIX) PO ×2 (07:49→20:11)
[2018-01-21] MEDS: TOPIRAMATE (TopAMAX) 25 MG TAB PO ×2 (07:49→20:09)
[2018-01-21] MEDS: NORTRIPTYLINE 10 MG CAP PO ×2 (07:58→20:10)
[2018-01-21 09:22] LABS: ALBUMIN 2.8 GM/DL (3.2-5.2); ALBUMIN/GLOBULIN RATIO 0.97 (1.00-1.93); ALKALINE PHOSPHATASE 145 U/L (45-117); ALT/SGPT 165 U/L (12-78); ANION GAP 9 MEQ/L (8-16); AST/SGOT 36 U/L (7-37); BILIRUBIN,TOTAL 0.2 MG/DL (0.2-1.0); BLOOD UREA NITROGEN 15 MG/DL (7-18); CALCIUM LEVEL 8.3 MG/DL (8.5-10.1); CARBON DIOXIDE LEVEL 24 MEQ/L (21-32); CHLORIDE LEVEL 107 MEQ/L (98-107); CREATININE FOR GFR 0.83 MG/DL (0.55-1.30); GLOMERULAR FILTRATION RATE > 60.0 (>60); GLUCOSE, FASTING 71 MG/DL (70-100); POTASSIUM SERUM 3.9 MEQ/L (3.5-5.1); SODIUM LEVEL 140 MEQ/L (136-145); TOTAL PROTEIN 5.7 GM/DL (6.4-8.2)
[2018-01-21] MEDS: SENOKOT S TAB PO (09:39)
[2018-01-21] MEDS: FIORICET TAB PO ×2 (10:43→16:20)
[2018-01-21] MEDS: KETOROLAC TROMETHAMINE 10 MG TAB PO (10:43)
[2018-01-21] MEDS: MOM 30ML SUSPENSION UDC PO (18:33)
[2018-01-21] MEDS: DULoxetine 30 MG CAP (CYMBALTA) PO (20:09)
[2018-01-21] MEDS: HYDROXYCHLOROQUINE 200 MG TAB PO (20:09)
[2018-01-21] MEDS: AMITRIPTYLINE 50 MG TAB PO (20:11)
[2018-01-21] MEDS: QUEtiapine 300 MG XR TABLET(SEROQUEL XR) PO (20:11)
[2018-01-22 06:23] LABS: HEMATOCRIT 35.6 % (36.0-47.0); HEMOGLOBIN 11.4 g/dl (12.0-16.0); MEAN CORPUSCULAR VOLUME 90.6 fl (80.0-96.0); PLATELET COUNT, AUTOMATED 456 10^3/uL (150-450); RED BLOOD COUNT 3.93 10^6/uL (4.00-5.40); RED CELL DISTRIBUTION WIDTH 14.7 % (11.5-14.5); WHITE BLOOD COUNT 16.4 10^3/uL (4.0-10.0)
[2018-01-22] MEDS: LORazepam 1 MG TAB PO ×3 (06:31→21:04)
[2018-01-22] MEDS: FIORICET TAB PO (06:31)
[2018-01-22 06:46] LABS: COMPLEMENT C3 88.7 MG/DL (90-180)
[2018-01-22 06:50] LABS: ALBUMIN 2.6 GM/DL (3.2-5.2); ALBUMIN/GLOBULIN RATIO 0.81 (1.00-1.93); ALKALINE PHOSPHATASE 123 U/L (45-117); ALT/SGPT 108 U/L (12-78); ANION GAP 7 MEQ/L (8-16); AST/SGOT 17 U/L (7-37); BILIRUBIN,TOTAL 0.2 MG/DL (0.2-1.0); BLOOD UREA NITROGEN 14 MG/DL (7-18); C REACTIVE PROTEIN QUANTITATIV < 0.30 MG/DL (0.00-0.30); CALCIUM LEVEL 8.3 MG/DL (8.5-10.1); CARBON DIOXIDE LEVEL 25 MEQ/L (21-32); CHLORIDE LEVEL 108 MEQ/L (98-107); GLOMERULAR FILTRATION RATE > 60.0 (>60); GLUCOSE, FASTING 71 MG/DL (70-100); POTASSIUM SERUM 4.3 MEQ/L (3.5-5.1); SODIUM LEVEL 140 MEQ/L (136-145); TOTAL PROTEIN 5.8 GM/DL (6.4-8.2)
[2018-01-22 07:03] LABS: ERYTHROCYTE SEDIMENTATION RATE 16 mm/hr (0-20)
[2018-01-22] MEDS: SYMBICORT 160/4.5MCG INHALER 6GM INH ×2 (08:09→19:31)
[2018-01-22] MEDS: predniSONE 50 MG TAB PO (10:13)
[2018-01-22] MEDS: miSOPROStol 100 MCG TAB (S0191) PO ×2 (10:13→20:52)
[2018-01-22] MEDS: NORTRIPTYLINE 10 MG CAP PO ×2 (10:13→20:51)
[2018-01-22] MEDS: GABAPENTIN 400 MG CAP PO ×2 (10:13→20:51)
[2018-01-22] MEDS: MONTELUKAST 10 MG TAB PO (10:13)
[2018-01-22] MEDS: oxyCODONE 5MG TAB PO (10:13)
[2018-01-22] MEDS: METHOCARBAMOL 750 MG TAB PO ×2 (10:13→20:51)
[2018-01-22] MEDS: FOLIC ACID 1 MG TAB PO (10:13)
[2018-01-22] MEDS: MEGESTROL ES SUSP 625 MG/5 ML UDC PO (10:14)
[2018-01-22] MEDS: MULTIVITAMINS/MINERALS THERAP 1 TAB PO ×2 (10:14→20:51)
[2018-01-22] MEDS: CYCLOBENZAPRINE 5MG TABLET PO ×3 (10:14→20:51)
[2018-01-22] MEDS: OLANZapine 2.5MG TABLET PO (10:14)
[2018-01-22] MEDS: TOPIRAMATE (TopAMAX) 25 MG TAB PO ×2 (10:14→20:52)
[2018-01-22] MEDS: PANTOPRAZOLE 40MG TAB (PROTONIX) PO ×2 (10:14→20:50)
[2018-01-22] MEDS: FAMOTIDINE 20 MG TAB PO (10:14)
[2018-01-22] MEDS: METOCLOPRAMIDE 5 MG TAB PO (14:53)
[2018-01-22] MEDS: NYSTATIN 500,000 U/5 ML SUSP UDC SS (20:49)
[2018-01-22] MEDS: QUEtiapine 300 MG XR TABLET(SEROQUEL XR) PO (20:50)
[2018-01-22] MEDS: DULoxetine 30 MG CAP (CYMBALTA) PO (20:50)
[2018-01-22] MEDS: AMITRIPTYLINE 50 MG TAB PO (20:52)
[2018-01-22] MEDS: HYDROXYCHLOROQUINE 200 MG TAB PO (21:04)
[2018-01-22] MEDS: KETOROLAC TROMETHAMINE 10 MG TAB PO (22:16)
[2018-01-22] MEDS: diphenhydrAMINE 25 MG CAP PO (22:16)
[2018-01-23 05:48] LABS: HEMATOCRIT 31.7 % (36.0-47.0); HEMOGLOBIN 10.5 g/dl (12.0-16.0); MEAN CORPUSCULAR HEMOGLOBIN 29.2 pg (27.0-33.0); MEAN CORPUSCULAR HGB CONC 33.1 g/dl (32.0-36.5); MEAN CORPUSCULAR VOLUME 88.1 fl (80.0-96.0); PLATELET COUNT, AUTOMATED 412 10^3/uL (150-450); RED CELL DISTRIBUTION WIDTH 14.6 % (11.5-14.5); WHITE BLOOD COUNT 16.8 10^3/uL (4.0-10.0)
[2018-01-23 06:08] LABS: ALBUMIN 2.5 GM/DL (3.2-5.2); ALKALINE PHOSPHATASE 96 U/L (45-117); ALT/SGPT 69 U/L (12-78); ANION GAP 6 MEQ/L (8-16); AST/SGOT 10 U/L (7-37); BILIRUBIN,TOTAL 0.2 MG/DL (0.2-1.0); BLOOD UREA NITROGEN 15 MG/DL (7-18); CALCIUM LEVEL 7.7 MG/DL (8.5-10.1); CARBON DIOXIDE LEVEL 24 MEQ/L (21-32); CHLORIDE LEVEL 103 MEQ/L (98-107); CREATININE FOR GFR 0.72 MG/DL (0.55-1.30); GLOMERULAR FILTRATION RATE > 60.0 (>60); GLUCOSE, FASTING 73 MG/DL (70-100); POTASSIUM SERUM 4.3 MEQ/L (3.5-5.1); SODIUM LEVEL 133 MEQ/L (136-145)
[2018-01-23] MEDS: SYMBICORT 160/4.5MCG INHALER 6GM INH ×2 (07:46→18:31)
[2018-01-23] MEDS: PANTOPRAZOLE 40MG TAB (PROTONIX) PO ×2 (08:31→20:50)
[2018-01-23] MEDS: NORTRIPTYLINE 10 MG CAP PO ×2 (08:31→20:52)
[2018-01-23] MEDS: TOPIRAMATE (TopAMAX) 25 MG TAB PO ×2 (08:32→20:51)
[2018-01-23] MEDS: miSOPROStol 100 MCG TAB (S0191) PO ×2 (08:32→20:50)
[2018-01-23] MEDS: FAMOTIDINE 20 MG TAB PO (08:32)
[2018-01-23] MEDS: NYSTATIN 500,000 U/5 ML SUSP UDC SS ×2 (08:32→20:49)
[2018-01-23] MEDS: MULTIVITAMINS/MINERALS THERAP 1 TAB PO ×2 (08:32→20:52)
[2018-01-23] MEDS: CYCLOBENZAPRINE 5MG TABLET PO ×3 (08:32→20:50)
[2018-01-23] MEDS: predniSONE 20 MG TAB PO (08:32)
[2018-01-23] MEDS: GABAPENTIN 400 MG CAP PO ×2 (08:32→20:49)
[2018-01-23] MEDS: METHOCARBAMOL 750 MG TAB PO ×2 (08:32→20:50)
[2018-01-23] MEDS: MONTELUKAST 10 MG TAB PO (08:32)
[2018-01-23] MEDS: FOLIC ACID 1 MG TAB PO (08:32)
[2018-01-23] MEDS: OLANZapine 2.5MG TABLET PO (08:33)
[2018-01-23] MEDS: MEGESTROL ES SUSP 625 MG/5 ML UDC PO (08:33)
[2018-01-23] MEDS: BENZOCAINE 7.5 % LIQ (BABY ORAJEL) MT ×2 (10:58→20:56)
[2018-01-23] MEDS: FIORICET TAB PO ×2 (13:33→20:51)
[2018-01-23] MEDS: ONDANSETRON 4 MG ORAL DISINTEGRATING TAB (S0181) PO (13:33)
[2018-01-23] MEDS: oxyCODONE 5MG TAB PO (15:28)
[2018-01-23] MEDS: HYDROXYCHLOROQUINE 200 MG TAB PO (20:50)
[2018-01-23] MEDS: diphenhydrAMINE 25 MG CAP PO (20:50)
[2018-01-23] MEDS: QUEtiapine 300 MG XR TABLET(SEROQUEL XR) PO (20:50)
[2018-01-23] MEDS: METOCLOPRAMIDE 5 MG TAB PO (20:51)
[2018-01-23] MEDS: DULoxetine 30 MG CAP (CYMBALTA) PO (20:51)
[2018-01-23] MEDS: AMITRIPTYLINE 50 MG TAB PO (20:52)
[2018-01-23] MEDS: SENOKOT S TAB PO (22:11)
[2018-01-23] MEDS: KETOROLAC TROMETHAMINE 10 MG TAB PO (23:12)
[2018-01-24 06:06] LABS: HEMATOCRIT 33.6 % (36.0-47.0); MEAN CORPUSCULAR HEMOGLOBIN 29.2 pg (27.0-33.0); MEAN CORPUSCULAR HGB CONC 32.7 g/dl (32.0-36.5); MEAN CORPUSCULAR VOLUME 89.1 fl (80.0-96.0); PLATELET COUNT, AUTOMATED 366 10^3/uL (150-450); RED BLOOD COUNT 3.77 10^6/uL (4.00-5.40); RED CELL DISTRIBUTION WIDTH 14.6 % (11.5-14.5); WHITE BLOOD COUNT 16.7 10^3/uL (4.0-10.0)
[2018-01-24] MEDS: MOM 30ML SUSPENSION UDC PO (06:27)
[2018-01-24 06:31] LABS: ALBUMIN 2.6 GM/DL (3.2-5.2); ALBUMIN/GLOBULIN RATIO 0.96 (1.00-1.93); ALKALINE PHOSPHATASE 101 U/L (45-117); ALT/SGPT 57 U/L (12-78); ANION GAP 7 MEQ/L (8-16); AST/SGOT 13 U/L (7-37); BILIRUBIN,TOTAL 0.2 MG/DL (0.2-1.0); BLOOD UREA NITROGEN 18 MG/DL (7-18); CALCIUM LEVEL 7.9 MG/DL (8.5-10.1); CARBON DIOXIDE LEVEL 23 MEQ/L (21-32); CHLORIDE LEVEL 103 MEQ/L (98-107); CREATININE FOR GFR 0.79 MG/DL (0.55-1.30); GLOMERULAR FILTRATION RATE > 60.0 (>60); GLUCOSE, FASTING 70 MG/DL (70-100); POTASSIUM SERUM 4.1 MEQ/L (3.5-5.1); SODIUM LEVEL 133 MEQ/L (136-145); TOTAL PROTEIN 5.3 GM/DL (6.4-8.2)
[2018-01-24] MEDS: SYMBICORT 160/4.5MCG INHALER 6GM INH ×2 (07:23→20:23)
[2018-01-24] MEDS: METHOCARBAMOL 750 MG TAB PO ×2 (08:47→20:47)
[2018-01-24] MEDS: NORTRIPTYLINE 10 MG CAP PO ×2 (08:47→20:48)
[2018-01-24] MEDS: CYCLOBENZAPRINE 5MG TABLET PO ×3 (08:47→20:47)
[2018-01-24] MEDS: predniSONE 20 MG TAB PO (08:47)
[2018-01-24] MEDS: NYSTATIN 500,000 U/5 ML SUSP UDC SS ×2 (08:47→20:48)
[2018-01-24] MEDS: MULTIVITAMINS/MINERALS THERAP 1 TAB PO ×2 (08:47→20:48)
[2018-01-24] MEDS: FAMOTIDINE 20 MG TAB PO (08:47)
[2018-01-24] MEDS: PANTOPRAZOLE 40MG TAB (PROTONIX) PO ×2 (08:47→20:46)
[2018-01-24] MEDS: MONTELUKAST 10 MG TAB PO (08:47)
[2018-01-24] MEDS: BENZOCAINE 7.5 % LIQ (BABY ORAJEL) MT ×2 (08:47→20:48)
[2018-01-24] MEDS: TOPIRAMATE (TopAMAX) 25 MG TAB PO ×2 (08:48→20:47)
[2018-01-24] MEDS: OLANZapine 2.5MG TABLET PO (08:48)
[2018-01-24] MEDS: GABAPENTIN 400 MG CAP PO ×2 (08:48→20:48)
[2018-01-24] MEDS: FOLIC ACID 1 MG TAB PO (08:48)
[2018-01-24] MEDS: miSOPROStol 100 MCG TAB (S0191) PO ×2 (08:48→20:47)
[2018-01-24] MEDS: METHOTREXATE 2.5 MG TAB (J8610 PER 2.5MG) PO (08:48)
[2018-01-24] MEDS: MEGESTROL ES SUSP 625 MG/5 ML UDC PO (08:48)
[2018-01-24] MEDS: LORazepam 1 MG TAB PO ×2 (11:02→20:58)
[2018-01-24] MEDS: oxyCODONE 5MG TAB PO (11:02)
[2018-01-24] MEDS: AMITRIPTYLINE 50 MG TAB PO (20:46)
[2018-01-24] MEDS: HYDROXYCHLOROQUINE 200 MG TAB PO (20:46)
[2018-01-24] MEDS: QUEtiapine 300 MG XR TABLET(SEROQUEL XR) PO (20:47)
[2018-01-24] MEDS: DULoxetine 30 MG CAP (CYMBALTA) PO (20:47)
[2018-01-24] MEDS: FIORICET TAB PO (23:04)
[2018-01-25 06:14] LABS: HEMATOCRIT 31.6 % (36.0-47.0); HEMOGLOBIN 10.4 g/dl (12.0-16.0); MEAN CORPUSCULAR HEMOGLOBIN 29.2 pg (27.0-33.0); MEAN CORPUSCULAR HGB CONC 32.9 g/dl (32.0-36.5); MEAN CORPUSCULAR VOLUME 88.8 fl (80.0-96.0); PLATELET COUNT, AUTOMATED 323 10^3/uL (150-450); RED BLOOD COUNT 3.56 10^6/uL (4.00-5.40); RED CELL DISTRIBUTION WIDTH 14.8 % (11.5-14.5); WHITE BLOOD COUNT 16.6 10^3/uL (4.0-10.0)
[2018-01-25 06:34] LABS: ALBUMIN 2.5 GM/DL (3.2-5.2); ALBUMIN/GLOBULIN RATIO 0.96 (1.00-1.93); ALKALINE PHOSPHATASE 95 U/L (45-117); ALT/SGPT 44 U/L (12-78); ANION GAP 8 MEQ/L (8-16); AST/SGOT 13 U/L (7-37); BILIRUBIN,TOTAL 0.2 MG/DL (0.2-1.0); BLOOD UREA NITROGEN 18 MG/DL (7-18); CARBON DIOXIDE LEVEL 24 MEQ/L (21-32); CHLORIDE LEVEL 104 MEQ/L (98-107); CREATININE FOR GFR 0.76 MG/DL (0.55-1.30); GLOMERULAR FILTRATION RATE > 60.0 (>60); GLUCOSE, FASTING 75 MG/DL (70-100); POTASSIUM SERUM 3.9 MEQ/L (3.5-5.1); SODIUM LEVEL 136 MEQ/L (136-145); TOTAL PROTEIN 5.1 GM/DL (6.4-8.2)
[2018-01-25] MEDS: SYMBICORT 160/4.5MCG INHALER 6GM INH ×2 (07:34→19:29)
[2018-01-25] MEDS: GABAPENTIN 400 MG CAP PO ×2 (07:46→20:15)
[2018-01-25] MEDS: FOLIC ACID 1 MG TAB PO (07:46)
[2018-01-25] MEDS: FAMOTIDINE 20 MG TAB PO (07:46)
[2018-01-25] MEDS: predniSONE 20 MG TAB PO (07:46)
[2018-01-25] MEDS: METHOCARBAMOL 750 MG TAB PO ×2 (07:46→20:15)
[2018-01-25] MEDS: TOPIRAMATE (TopAMAX) 25 MG TAB PO ×2 (07:46→20:16)
[2018-01-25] MEDS: NYSTATIN 500,000 U/5 ML SUSP UDC SS ×2 (07:46→20:16)
[2018-01-25] MEDS: NORTRIPTYLINE 10 MG CAP PO ×2 (07:46→20:15)
[2018-01-25] MEDS: OLANZapine 2.5MG TABLET PO (07:46)
[2018-01-25] MEDS: MULTIVITAMINS/MINERALS THERAP 1 TAB PO ×2 (07:47→20:16)
[2018-01-25] MEDS: PANTOPRAZOLE 40MG TAB (PROTONIX) PO ×2 (07:47→20:16)
[2018-01-25] MEDS: MONTELUKAST 10 MG TAB PO (07:47)
[2018-01-25] MEDS: CYCLOBENZAPRINE 5MG TABLET PO ×3 (07:47→20:16)
[2018-01-25] MEDS: miSOPROStol 100 MCG TAB (S0191) PO ×2 (07:47→20:15)
[2018-01-25] MEDS: MEGESTROL ES SUSP 625 MG/5 ML UDC PO (07:47)
[2018-01-25] MEDS: BENZOCAINE 7.5 % LIQ (BABY ORAJEL) MT ×2 (07:47→21:00)
[2018-01-25] MEDS: oxyCODONE 5MG TAB PO ×2 (07:55→18:41)
[2018-01-25] MEDS: METOCLOPRAMIDE 5 MG TAB PO (07:55)
[2018-01-25] MEDS: LORazepam 1 MG TAB PO ×2 (12:47→20:16)
[2018-01-25] MEDS: QUEtiapine 300 MG XR TABLET(SEROQUEL XR) PO (20:15)
[2018-01-25] MEDS: AMITRIPTYLINE 50 MG TAB PO (20:15)
[2018-01-25] MEDS: HYDROXYCHLOROQUINE 200 MG TAB PO (20:16)
[2018-01-25] MEDS: DULoxetine 30 MG CAP (CYMBALTA) PO (20:16)
[2018-01-25] MEDS: diphenhydrAMINE 25 MG CAP PO (22:10)
[2018-01-25] MEDS: FIORICET TAB PO (22:10)
[2018-01-26 06:08] LABS: HEMATOCRIT 33.8 % (36.0-47.0); HEMOGLOBIN 11.1 g/dl (12.0-16.0); MEAN CORPUSCULAR HEMOGLOBIN 29.4 pg (27.0-33.0); MEAN CORPUSCULAR HGB CONC 32.8 g/dl (32.0-36.5); MEAN CORPUSCULAR VOLUME 89.7 fl (80.0-96.0); PLATELET COUNT, AUTOMATED 299 10^3/uL (150-450); RED BLOOD COUNT 3.77 10^6/uL (4.00-5.40); RED CELL DISTRIBUTION WIDTH 14.9 % (11.5-14.5); WHITE BLOOD COUNT 14.3 10^3/uL (4.0-10.0)
[2018-01-26 06:29] LABS: ALBUMIN 2.5 GM/DL (3.2-5.2); ALBUMIN/GLOBULIN RATIO 0.93 (1.00-1.93); ALKALINE PHOSPHATASE 82 U/L (45-117); ALT/SGPT 34 U/L (12-78); ANION GAP 7 MEQ/L (8-16); AST/SGOT 10 U/L (7-37); BILIRUBIN,TOTAL 0.2 MG/DL (0.2-1.0); BLOOD UREA NITROGEN 15 MG/DL (7-18); CALCIUM LEVEL 7.9 MG/DL (8.5-10.1); CARBON DIOXIDE LEVEL 25 MEQ/L (21-32); CHLORIDE LEVEL 105 MEQ/L (98-107); GLOMERULAR FILTRATION RATE > 60.0 (>60); GLUCOSE, FASTING 75 MG/DL (70-100); POTASSIUM SERUM 3.8 MEQ/L (3.5-5.1); SODIUM LEVEL 137 MEQ/L (136-145); TOTAL PROTEIN 5.2 GM/DL (6.4-8.2)
[2018-01-26] MEDS: OLANZapine 2.5MG TABLET PO (08:05)
[2018-01-26] MEDS: PANTOPRAZOLE 40MG TAB (PROTONIX) PO ×2 (08:05→21:38)
[2018-01-26] MEDS: GABAPENTIN 400 MG CAP PO ×3 (08:05→21:39)
[2018-01-26] MEDS: predniSONE 20 MG TAB PO (08:05)
[2018-01-26] MEDS: NYSTATIN 500,000 U/5 ML SUSP UDC SS ×2 (08:05→21:38)
[2018-01-26] MEDS: MEGESTROL ES SUSP 625 MG/5 ML UDC PO (08:05)
[2018-01-26] MEDS: MONTELUKAST 10 MG TAB PO (08:06)
[2018-01-26] MEDS: MULTIVITAMINS/MINERALS THERAP 1 TAB PO ×2 (08:06→21:40)
[2018-01-26] MEDS: TOPIRAMATE (TopAMAX) 25 MG TAB PO ×2 (08:06→21:41)
[2018-01-26] MEDS: FOLIC ACID 1 MG TAB PO (08:06)
[2018-01-26] MEDS: NORTRIPTYLINE 10 MG CAP PO ×2 (08:06→21:40)
[2018-01-26] MEDS: METHOCARBAMOL 750 MG TAB PO ×2 (08:06→21:40)
[2018-01-26] MEDS: CYCLOBENZAPRINE 5MG TABLET PO ×3 (08:06→21:40)
[2018-01-26] MEDS: oxyCODONE 5MG TAB PO ×2 (08:06→21:39)
[2018-01-26] MEDS: miSOPROStol 100 MCG TAB (S0191) PO ×2 (08:06→21:41)
[2018-01-26] MEDS: FAMOTIDINE 20 MG TAB PO (08:06)
[2018-01-26] MEDS: BENZOCAINE 7.5 % LIQ (BABY ORAJEL) MT ×2 (08:07→21:00)
[2018-01-26] MEDS: LORazepam 1 MG TAB PO ×3 (09:18→23:07)
[2018-01-26] MEDS: ALBUTEROL 90 MCG/ACT 8GM HFA INHALER INH ×2 (09:24→20:15)
[2018-01-26] MEDS: SYMBICORT 160/4.5MCG INHALER 6GM INH ×2 (09:24→20:15)
[2018-01-26] MEDS: DIHYDROERGOTAMINE MESYLATE IM (10:56)
[2018-01-26] MEDS: [UNRECOGNIZED DRUG - OTHER] IM (10:56)
[2018-01-26] MEDS: ONDANSETRON 4 MG ORAL DISINTEGRATING TAB (S0181) PO (18:08)
[2018-01-26] MEDS: ACETAMINOPHEN TAB 650MG DOSE (2X325MG) PO (18:46)
[2018-01-26] MEDS: METOCLOPRAMIDE 5 MG TAB PO (18:46)
[2018-01-26] MEDS: HYDROXYCHLOROQUINE 200 MG TAB PO (21:38)
[2018-01-26] MEDS: DULoxetine 30 MG CAP (CYMBALTA) PO (21:39)
[2018-01-26] MEDS: AMITRIPTYLINE 50 MG TAB PO (21:40)
[2018-01-26] MEDS: QUEtiapine 300 MG XR TABLET(SEROQUEL XR) PO (21:41)
[2018-01-26] MEDS: CEPACOL LOZENGE PO (23:07)
[2018-01-26] MEDS: diphenhydrAMINE 25 MG CAP PO (23:07)
[2018-01-27] MEDS: DIHYDROERGOTAMINE ×2 (00:26→22:14)
[2018-01-27] MEDS: METOCLOPRAMIDE 5 MG TAB PO (00:27)
[2018-01-27] MEDS: FIORICET TAB PO (00:27)
[2018-01-27 06:33] LABS: HEMATOCRIT 35.1 % (36.0-47.0); HEMOGLOBIN 11.5 g/dl (12.0-16.0); MEAN CORPUSCULAR HEMOGLOBIN 28.8 pg (27.0-33.0); MEAN CORPUSCULAR HGB CONC 32.8 g/dl (32.0-36.5); MEAN CORPUSCULAR VOLUME 87.8 fl (80.0-96.0); PLATELET COUNT, AUTOMATED 289 10^3/uL (150-450); WHITE BLOOD COUNT 18.2 10^3/uL (4.0-10.0)
[2018-01-27 06:59] LABS: ALBUMIN 2.7 GM/DL (3.2-5.2); ALKALINE PHOSPHATASE 90 U/L (45-117); ALT/SGPT 37 U/L (12-78); ANION GAP 7 MEQ/L (8-16); AST/SGOT 15 U/L (7-37); BILIRUBIN,TOTAL 0.3 MG/DL (0.2-1.0); BLOOD UREA NITROGEN 16 MG/DL (7-18); CALCIUM LEVEL 8.5 MG/DL (8.5-10.1); CARBON DIOXIDE LEVEL 25 MEQ/L (21-32); CHLORIDE LEVEL 107 MEQ/L (98-107); CREATININE FOR GFR 0.83 MG/DL (0.55-1.30); GLOMERULAR FILTRATION RATE > 60.0 (>60); GLUCOSE, FASTING 76 MG/DL (70-100); POTASSIUM SERUM 3.8 MEQ/L (3.5-5.1); SODIUM LEVEL 139 MEQ/L (136-145); TOTAL PROTEIN 5.7 GM/DL (6.4-8.2)
[2018-01-27] MEDS: SYMBICORT 160/4.5MCG INHALER 6GM INH ×2 (07:26→20:30)
[2018-01-27] MEDS: ALBUTEROL 90 MCG/ACT 8GM HFA INHALER INH ×2 (07:29→20:30)
[2018-01-27] MEDS ORDERED: SODIUM CHLORIDE NASAL 0.65% SPRAY BTL (OCEAN) (07:30)
[2018-01-27] MEDS: TOPIRAMATE (TopAMAX) 25 MG TAB PO ×2 (09:50→21:58)
[2018-01-27] MEDS: METHOCARBAMOL 750 MG TAB PO ×2 (09:50→21:58)
[2018-01-27] MEDS: FOLIC ACID 1 MG TAB PO (09:50)
[2018-01-27] MEDS: miSOPROStol 100 MCG TAB (S0191) PO ×2 (09:50→21:57)
[2018-01-27] MEDS: MONTELUKAST 10 MG TAB PO (09:50)
[2018-01-27] MEDS: NORTRIPTYLINE 10 MG CAP PO ×2 (09:50→21:00)
[2018-01-27] MEDS: FAMOTIDINE 20 MG TAB PO (09:51)
[2018-01-27] MEDS: CYCLOBENZAPRINE 5MG TABLET PO ×3 (09:51→21:58)
[2018-01-27] MEDS: predniSONE 10 MG TAB PO (09:51)
[2018-01-27] MEDS: GABAPENTIN 400 MG CAP PO ×3 (09:51→21:58)
[2018-01-27] MEDS: OLANZapine 2.5MG TABLET PO (09:52)
[2018-01-27] MEDS: PANTOPRAZOLE 40MG TAB (PROTONIX) PO ×2 (09:52→21:58)
[2018-01-27] MEDS: NYSTATIN 500,000 U/5 ML SUSP UDC SS ×2 (09:52→21:57)
[2018-01-27] MEDS: MULTIVITAMINS/MINERALS THERAP 1 TAB PO ×2 (09:52→21:57)
[2018-01-27] MEDS: MEGESTROL ES SUSP 625 MG/5 ML UDC PO ×2 (09:52→09:58)
[2018-01-27] MEDS: BENZOCAINE 7.5 % LIQ (BABY ORAJEL) MT ×2 (09:53→21:00)
[2018-01-27] MEDS: LORazepam 1 MG TAB PO ×2 (10:03→14:13)
[2018-01-27] MEDS: oxyCODONE 5MG TAB PO ×2 (10:05→15:54)
[2018-01-27] MEDS: CEPACOL LOZENGE PO (15:54)
[2018-01-27] MEDS: HYDROXYCHLOROQUINE 200 MG TAB PO (21:57)
[2018-01-27] MEDS: DULoxetine 30 MG CAP (CYMBALTA) PO (21:57)
[2018-01-27] MEDS: AMITRIPTYLINE 50 MG TAB PO (21:58)
[2018-01-27] MEDS: QUEtiapine 300 MG XR TABLET(SEROQUEL XR) PO (21:58)
[2018-01-28 06:15] LABS: HEMATOCRIT 32.2 % (36.0-47.0); HEMOGLOBIN 10.4 g/dl (12.0-16.0); MEAN CORPUSCULAR HEMOGLOBIN 29.1 pg (27.0-33.0); MEAN CORPUSCULAR HGB CONC 32.3 g/dl (32.0-36.5); MEAN CORPUSCULAR VOLUME 90.2 fl (80.0-96.0); PLATELET COUNT, AUTOMATED 248 10^3/uL (150-450); RED BLOOD COUNT 3.57 10^6/uL (4.00-5.40); RED CELL DISTRIBUTION WIDTH 15.2 % (11.5-14.5); WHITE BLOOD COUNT 17.4 10^3/uL (4.0-10.0)
[2018-01-28 06:37] LABS: ALBUMIN 2.4 GM/DL (3.2-5.2); ALBUMIN/GLOBULIN RATIO 0.83 (1.00-1.93); ALKALINE PHOSPHATASE 78 U/L (45-117); ALT/SGPT 31 U/L (12-78); ANION GAP 8 MEQ/L (8-16); AST/SGOT 12 U/L (7-37); BILIRUBIN,TOTAL 0.2 MG/DL (0.2-1.0); BLOOD UREA NITROGEN 14 MG/DL (7-18); CALCIUM LEVEL 8.1 MG/DL (8.5-10.1); CARBON DIOXIDE LEVEL 25 MEQ/L (21-32); CHLORIDE LEVEL 109 MEQ/L (98-107); CREATININE FOR GFR 0.71 MG/DL (0.55-1.30); GLOMERULAR FILTRATION RATE > 60.0 (>60); GLUCOSE, FASTING 74 MG/DL (70-100); SODIUM LEVEL 142 MEQ/L (136-145); TOTAL PROTEIN 5.3 GM/DL (6.4-8.2)
[2018-01-28] MEDS: ALBUTEROL 90 MCG/ACT 8GM HFA INHALER INH ×2 (07:49→20:16)
[2018-01-28] MEDS: SYMBICORT 160/4.5MCG INHALER 6GM INH ×2 (07:49→20:16)
[2018-01-28] MEDS: BENZOCAINE 7.5 % LIQ (BABY ORAJEL) MT ×2 (09:00→21:00)
[2018-01-28] MEDS: MEGESTROL ES SUSP 625 MG/5 ML UDC PO ×2 (09:00→09:16)
[2018-01-28] MEDS: OLANZapine 2.5MG TABLET PO (09:14)
[2018-01-28] MEDS: MULTIVITAMINS/MINERALS THERAP 1 TAB PO ×2 (09:14→21:08)
[2018-01-28] MEDS: TOPIRAMATE (TopAMAX) 25 MG TAB PO ×2 (09:14→21:08)
[2018-01-28] MEDS: NORTRIPTYLINE 10 MG CAP PO ×2 (09:14→21:10)
[2018-01-28] MEDS: CYCLOBENZAPRINE 5MG TABLET PO ×3 (09:15→21:09)
[2018-01-28] MEDS: predniSONE 10 MG TAB PO (09:15)
[2018-01-28] MEDS: FAMOTIDINE 20 MG TAB PO (09:15)
[2018-01-28] MEDS: FOLIC ACID 1 MG TAB PO (09:15)
[2018-01-28] MEDS: PANTOPRAZOLE 40MG TAB (PROTONIX) PO ×2 (09:15→21:08)
[2018-01-28] MEDS: GABAPENTIN 400 MG CAP PO ×3 (09:15→21:08)
[2018-01-28] MEDS: MONTELUKAST 10 MG TAB PO (09:15)
[2018-01-28] MEDS: METHOCARBAMOL 750 MG TAB PO ×2 (09:15→21:09)
[2018-01-28] MEDS: NYSTATIN 500,000 U/5 ML SUSP UDC SS ×2 (09:16→21:07)
[2018-01-28] MEDS: LORazepam 1 MG TAB PO ×2 (09:32→21:08)
[2018-01-28] MEDS: CEPACOL LOZENGE PO ×2 (09:32→21:08)
[2018-01-28] MEDS: miSOPROStol 100 MCG TAB (S0191) PO ×2 (09:32→21:08)
[2018-01-28] MEDS: SENOKOT S TAB PO (14:08)
[2018-01-28] MEDS: oxyCODONE 5MG TAB PO (14:09)
[2018-01-28] MEDS: FIORICET TAB PO (15:32)
[2018-01-28] MEDS: DIHYDROERGOTAMINE ×2 (15:33→21:07)
[2018-01-28] MEDS: METOCLOPRAMIDE 5 MG TAB PO (18:12)
[2018-01-28] MEDS: AMITRIPTYLINE 50 MG TAB PO (21:08)
[2018-01-28] MEDS: DULoxetine 30 MG CAP (CYMBALTA) PO (21:08)
[2018-01-28] MEDS: HYDROXYCHLOROQUINE 200 MG TAB PO (21:09)
[2018-01-28] MEDS: diphenhydrAMINE 25 MG CAP PO (21:09)
[2018-01-28] MEDS: QUEtiapine 300 MG XR TABLET(SEROQUEL XR) PO (21:09)
[2018-01-29 06:03] LABS: HEMOGLOBIN 10.8 g/dl (12.0-16.0); MEAN CORPUSCULAR HGB CONC 32.7 g/dl (32.0-36.5); MEAN CORPUSCULAR VOLUME 88.7 fl (80.0-96.0); PLATELET COUNT, AUTOMATED 246 10^3/uL (150-450); RED BLOOD COUNT 3.72 10^6/uL (4.00-5.40); RED CELL DISTRIBUTION WIDTH 15.5 % (11.5-14.5)
[2018-01-29 06:25] LABS: ALBUMIN 2.3 GM/DL (3.2-5.2); ALBUMIN/GLOBULIN RATIO 0.77 (1.00-1.93); ALKALINE PHOSPHATASE 77 U/L (45-117); ALT/SGPT 29 U/L (12-78); ANION GAP 7 MEQ/L (8-16); AST/SGOT 14 U/L (7-37); BILIRUBIN,TOTAL 0.2 MG/DL (0.2-1.0); BLOOD UREA NITROGEN 17 MG/DL (7-18); CALCIUM LEVEL 7.9 MG/DL (8.5-10.1); CARBON DIOXIDE LEVEL 24 MEQ/L (21-32); CHLORIDE LEVEL 110 MEQ/L (98-107); CREATININE FOR GFR 0.68 MG/DL (0.55-1.30); GLOMERULAR FILTRATION RATE > 60.0 (>60); GLUCOSE, FASTING 74 MG/DL (70-100); POTASSIUM SERUM 3.9 MEQ/L (3.5-5.1); SODIUM LEVEL 141 MEQ/L (136-145); TOTAL PROTEIN 5.3 GM/DL (6.4-8.2)
[2018-01-29] MEDS: SYMBICORT 160/4.5MCG INHALER 6GM INH ×2 (08:19→20:25)
[2018-01-29] MEDS: ALBUTEROL 90 MCG/ACT 8GM HFA INHALER INH ×3 (08:19→20:26)
[2018-01-29] MEDS: BENZOCAINE 7.5 % LIQ (BABY ORAJEL) MT ×2 (08:47→20:18)
[2018-01-29] MEDS: NORTRIPTYLINE 10 MG CAP PO ×2 (08:48→20:16)
[2018-01-29] MEDS: CYCLOBENZAPRINE 5MG TABLET PO ×3 (08:48→20:17)
[2018-01-29] MEDS: GABAPENTIN 400 MG CAP PO ×3 (08:48→20:17)
[2018-01-29] MEDS: MONTELUKAST 10 MG TAB PO (08:48)
[2018-01-29] MEDS: OLANZapine 2.5MG TABLET PO (08:48)
[2018-01-29] MEDS: predniSONE 10 MG TAB PO (08:48)
[2018-01-29] MEDS: TOPIRAMATE (TopAMAX) 25 MG TAB PO ×2 (08:48→20:16)
[2018-01-29] MEDS: FAMOTIDINE 20 MG TAB PO (08:48)
[2018-01-29] MEDS: METHOCARBAMOL 750 MG TAB PO ×2 (08:49→20:17)
[2018-01-29] MEDS: MULTIVITAMINS/MINERALS THERAP 1 TAB PO ×2 (08:49→20:16)
[2018-01-29] MEDS: FOLIC ACID 1 MG TAB PO (08:49)
[2018-01-29] MEDS: MEGESTROL ES SUSP 625 MG/5 ML UDC PO (08:49)
[2018-01-29] MEDS: NYSTATIN 500,000 U/5 ML SUSP UDC SS (08:49)
[2018-01-29] MEDS: miSOPROStol 100 MCG TAB (S0191) PO ×2 (08:49→20:16)
[2018-01-29] MEDS: PANTOPRAZOLE 40MG TAB (PROTONIX) PO ×2 (08:49→20:17)
[2018-01-29] MEDS: METOCLOPRAMIDE 5 MG TAB PO (10:40)
[2018-01-29] MEDS: guaiFENesin ER 600 MG TAB PO ×2 (10:40→20:16)
[2018-01-29] MEDS: ACETAMINOPHEN TAB 650MG DOSE (2X325MG) PO ×2 (10:41→18:16)
[2018-01-29] MEDS: LORazepam 1 MG TAB PO (16:07)
[2018-01-29] MEDS: oxyCODONE 5MG TAB PO (16:07)
[2018-01-29] MEDS: AMITRIPTYLINE 50 MG TAB PO (20:16)
[2018-01-29] MEDS: HYDROXYCHLOROQUINE 200 MG TAB PO (20:16)
[2018-01-29] MEDS: DULoxetine 30 MG CAP (CYMBALTA) PO (20:17)
[2018-01-29] MEDS: QUEtiapine 300 MG XR TABLET(SEROQUEL XR) PO (20:17)
[2018-01-30 06:34] LABS: HEMATOCRIT 31.3 % (36.0-47.0); HEMOGLOBIN 10.3 g/dl (12.0-16.0); MEAN CORPUSCULAR HEMOGLOBIN 29.8 pg (27.0-33.0); MEAN CORPUSCULAR HGB CONC 32.9 g/dl (32.0-36.5); MEAN CORPUSCULAR VOLUME 90.5 fl (80.0-96.0); PLATELET COUNT, AUTOMATED 233 10^3/uL (150-450); RED BLOOD COUNT 3.46 10^6/uL (4.00-5.40); RED CELL DISTRIBUTION WIDTH 15.4 % (11.5-14.5)
[2018-01-30] MEDS: CEPACOL LOZENGE PO (06:42)
[2018-01-30] MEDS: oxyCODONE 5MG TAB PO ×2 (06:42→16:12)
[2018-01-30] MEDS: SYMBICORT 160/4.5MCG INHALER 6GM INH ×2 (09:03→21:50)
[2018-01-30] MEDS: ALBUTEROL 90 MCG/ACT 8GM HFA INHALER INH ×2 (09:03→13:54)
[2018-01-30] MEDS: TOPIRAMATE (TopAMAX) 25 MG TAB PO ×2 (09:18→20:19)
[2018-01-30] MEDS: OLANZapine 2.5MG TABLET PO (09:19)
[2018-01-30] MEDS: GABAPENTIN 400 MG CAP PO ×3 (09:19→20:19)
[2018-01-30] MEDS: FOLIC ACID 1 MG TAB PO (09:19)
[2018-01-30] MEDS: FAMOTIDINE 20 MG TAB PO (09:19)
[2018-01-30] MEDS: MONTELUKAST 10 MG TAB PO (09:20)
[2018-01-30] MEDS: METHOCARBAMOL 750 MG TAB PO ×2 (09:20→20:19)
[2018-01-30] MEDS: guaiFENesin ER 600 MG TAB PO ×2 (09:20→20:19)
[2018-01-30] MEDS: predniSONE 20 MG TAB PO (09:20)
[2018-01-30] MEDS: NORTRIPTYLINE 10 MG CAP PO ×2 (09:20→20:20)
[2018-01-30] MEDS: MULTIVITAMINS/MINERALS THERAP 1 TAB PO ×2 (09:20→20:19)
[2018-01-30] MEDS: PANTOPRAZOLE 40MG TAB (PROTONIX) PO ×2 (09:20→20:19)
[2018-01-30] MEDS: miSOPROStol 100 MCG TAB (S0191) PO ×2 (09:20→20:19)
[2018-01-30] MEDS: CYCLOBENZAPRINE 5MG TABLET PO ×3 (09:20→20:19)
[2018-01-30] MEDS: ACETAMINOPHEN TAB 650MG DOSE (2X325MG) PO ×2 (09:21→22:15)
[2018-01-30] MEDS: BENZOCAINE 7.5 % LIQ (BABY ORAJEL) MT ×2 (09:22→20:20)
[2018-01-30] MEDS: DIHYDROERGOTAMINE (13:23)
[2018-01-30] MEDS: LORazepam 1 MG TAB PO ×2 (16:09→22:11)
[2018-01-30] MEDS: METOCLOPRAMIDE 5 MG TAB PO (17:44)
[2018-01-30] MEDS: DULoxetine 30 MG CAP (CYMBALTA) PO (20:19)
[2018-01-30] MEDS: QUEtiapine 300 MG XR TABLET(SEROQUEL XR) PO (20:19)
[2018-01-30] MEDS: AMITRIPTYLINE 50 MG TAB PO (20:19)
[2018-01-30] MEDS: HYDROXYCHLOROQUINE 200 MG TAB PO (20:20)
[2018-01-31] MEDS: PANTOPRAZOLE 40MG TAB (PROTONIX) PO ×2 (08:20→20:09)
[2018-01-31] MEDS: FAMOTIDINE 20 MG TAB PO (08:20)
[2018-01-31] MEDS: NORTRIPTYLINE 10 MG CAP PO ×2 (08:20→20:08)
[2018-01-31] MEDS: METHOTREXATE 2.5 MG TAB (J8610 PER 2.5MG) PO (08:20)
[2018-01-31] MEDS: MULTIVITAMINS/MINERALS THERAP 1 TAB PO ×2 (08:20→20:09)
[2018-01-31] MEDS: MONTELUKAST 10 MG TAB PO (08:20)
[2018-01-31] MEDS: GABAPENTIN 400 MG CAP PO ×3 (08:20→20:09)
[2018-01-31] MEDS: guaiFENesin ER 600 MG TAB PO ×2 (08:20→20:09)
[2018-01-31] MEDS: OLANZapine 2.5MG TABLET PO (08:20)
[2018-01-31] MEDS: METHOCARBAMOL 750 MG TAB PO ×2 (08:20→20:12)
[2018-01-31] MEDS: TOPIRAMATE (TopAMAX) 25 MG TAB PO ×2 (08:20→20:11)
[2018-01-31] MEDS: FOLIC ACID 1 MG TAB PO (08:20)
[2018-01-31] MEDS: predniSONE 20 MG TAB PO (08:20)
[2018-01-31] MEDS: CYCLOBENZAPRINE 5MG TABLET PO ×3 (08:20→20:10)
[2018-01-31] MEDS: miSOPROStol 100 MCG TAB (S0191) PO ×2 (08:20→20:09)
[2018-01-31] MEDS: BENZOCAINE 7.5 % LIQ (BABY ORAJEL) MT ×2 (08:25→17:55)
[2018-01-31] MEDS: SYMBICORT 160/4.5MCG INHALER 6GM INH ×2 (08:50→20:10)
[2018-01-31] MEDS: ALBUTEROL 90 MCG/ACT 8GM HFA INHALER INH (08:50)
[2018-01-31] MEDS: oxyCODONE 5MG TAB PO ×2 (10:53→20:08)
[2018-01-31] MEDS: LORazepam 1 MG TAB PO ×2 (10:53→20:07)
[2018-01-31] MEDS: ACETAMINOPHEN TAB 650MG DOSE (2X325MG) PO (16:49)
[2018-01-31] MEDS: DULoxetine 30 MG CAP (CYMBALTA) PO (20:08)
[2018-01-31] MEDS: QUEtiapine 300 MG XR TABLET(SEROQUEL XR) PO (20:08)
[2018-01-31] MEDS: AMITRIPTYLINE 50 MG TAB PO (20:09)
[2018-01-31] MEDS: HYDROXYCHLOROQUINE 200 MG TAB PO (20:10)
[2018-01-31] MEDS: diphenhydrAMINE 25 MG CAP PO (22:05)
[2018-01-31] MEDS: DIHYDROERGOTAMINE (22:06)
[2018-02-01] MEDS: LORazepam 1 MG TAB PO ×2 (03:49→20:12)
[2018-02-01] MEDS: oxyCODONE 5MG TAB PO ×2 (04:10→20:13)
[2018-02-01] MEDS: SYMBICORT 160/4.5MCG INHALER 6GM INH ×2 (08:29→20:09)
[2018-02-01] MEDS: BENZOCAINE 7.5 % LIQ (BABY ORAJEL) MT ×2 (09:00→20:10)
[2018-02-01] MEDS: FIORICET TAB PO (09:37)
[2018-02-01] MEDS: CYCLOBENZAPRINE 5MG TABLET PO ×3 (09:37→20:12)
[2018-02-01] MEDS: PANTOPRAZOLE 40MG TAB (PROTONIX) PO ×2 (09:37→20:12)
[2018-02-01] MEDS: FOLIC ACID 1 MG TAB PO (09:38)
[2018-02-01] MEDS: MULTIVITAMINS/MINERALS THERAP 1 TAB PO ×2 (09:38→20:12)
[2018-02-01] MEDS: NORTRIPTYLINE 10 MG CAP PO ×2 (09:38→20:11)
[2018-02-01] MEDS: MONTELUKAST 10 MG TAB PO (09:38)
[2018-02-01] MEDS: TOPIRAMATE (TopAMAX) 25 MG TAB PO ×2 (09:38→20:13)
[2018-02-01] MEDS: OLANZapine 2.5MG TABLET PO (09:38)
[2018-02-01] MEDS: guaiFENesin ER 600 MG TAB PO ×2 (09:38→20:11)
[2018-02-01] MEDS: GABAPENTIN 400 MG CAP PO ×3 (09:39→20:11)
[2018-02-01] MEDS: miSOPROStol 100 MCG TAB (S0191) PO ×2 (09:39→20:12)
[2018-02-01] MEDS: FAMOTIDINE 20 MG TAB PO (09:39)
[2018-02-01] MEDS: predniSONE 20 MG TAB PO (09:39)
[2018-02-01] MEDS: METHOCARBAMOL 750 MG TAB PO ×2 (09:40→20:10)
[2018-02-01] MEDS: DIHYDROERGOTAMINE (15:06)
[2018-02-01] MEDS: DULoxetine 30 MG CAP (CYMBALTA) PO (20:10)
[2018-02-01] MEDS: QUEtiapine 300 MG XR TABLET(SEROQUEL XR) PO (20:10)
[2018-02-01] MEDS: HYDROXYCHLOROQUINE 200 MG TAB PO (20:11)
[2018-02-01] MEDS: AMITRIPTYLINE 50 MG TAB PO (20:12)
[2018-02-01] MEDS: diphenhydrAMINE 25 MG CAP PO (22:44)
[2018-02-02] MEDS: LORazepam 1 MG TAB PO ×2 (06:56→20:11)
[2018-02-02] MEDS: oxyCODONE 5MG TAB PO ×2 (06:58→20:12)
[2018-02-02] MEDS: SYMBICORT 160/4.5MCG INHALER 6GM INH ×2 (08:12→19:48)
[2018-02-02] MEDS: miSOPROStol 100 MCG TAB (S0191) PO ×2 (08:20→20:11)
[2018-02-02] MEDS: guaiFENesin ER 600 MG TAB PO ×2 (08:20→20:12)
[2018-02-02] MEDS: GABAPENTIN 400 MG CAP PO ×3 (08:20→20:10)
[2018-02-02] MEDS: TOPIRAMATE (TopAMAX) 25 MG TAB PO ×2 (08:20→20:10)
[2018-02-02] MEDS: FAMOTIDINE 20 MG TAB PO (08:21)
[2018-02-02] MEDS: NORTRIPTYLINE 10 MG CAP PO ×2 (08:21→20:09)
[2018-02-02] MEDS: predniSONE 10 MG TAB PO (08:21)
[2018-02-02] MEDS: CYCLOBENZAPRINE 5MG TABLET PO ×3 (08:21→20:12)
[2018-02-02] MEDS: MULTIVITAMINS/MINERALS THERAP 1 TAB PO ×2 (08:21→20:12)
[2018-02-02] MEDS: FOLIC ACID 1 MG TAB PO (08:21)
[2018-02-02] MEDS: BENZOCAINE 7.5 % LIQ (BABY ORAJEL) MT ×2 (08:22→20:13)
[2018-02-02] MEDS: METHOCARBAMOL 750 MG TAB PO ×2 (08:22→20:10)
[2018-02-02] MEDS: MONTELUKAST 10 MG TAB PO (08:22)
[2018-02-02] MEDS: OLANZapine 2.5MG TABLET PO (08:22)
[2018-02-02] MEDS: PANTOPRAZOLE 40MG TAB (PROTONIX) PO ×2 (08:22→20:12)
[2018-02-02] MEDS: FIORICET TAB PO (18:32)
[2018-02-02] MEDS: DIHYDROERGOTAMINE (18:33)
[2018-02-02] MEDS: diphenhydrAMINE 25 MG CAP PO (18:36)
[2018-02-02] MEDS: METOCLOPRAMIDE 5 MG TAB PO (18:36)
[2018-02-02] MEDS: HYDROXYCHLOROQUINE 200 MG TAB PO (20:09)
[2018-02-02] MEDS: AMITRIPTYLINE 50 MG TAB PO (20:10)
[2018-02-02] MEDS: DULoxetine 30 MG CAP (CYMBALTA) PO (20:10)
[2018-02-02] MEDS: QUEtiapine 300 MG XR TABLET(SEROQUEL XR) PO (20:11)
[2018-02-02] MEDS: ACETAMINOPHEN TAB 650MG DOSE (2X325MG) PO (22:36)
[2018-02-03 07:00] LABS: HEMATOCRIT 33.2 % (36.0-47.0); HEMOGLOBIN 10.7 g/dl (12.0-16.0); MEAN CORPUSCULAR HEMOGLOBIN 29.2 pg (27.0-33.0); MEAN CORPUSCULAR HGB CONC 32.2 g/dl (32.0-36.5); MEAN CORPUSCULAR VOLUME 90.5 fl (80.0-96.0); PLATELET COUNT, AUTOMATED 256 10^3/uL (150-450); RED BLOOD COUNT 3.67 10^6/uL (4.00-5.40); RED CELL DISTRIBUTION WIDTH 15.2 % (11.5-14.5); WHITE BLOOD COUNT 11.5 10^3/uL (4.0-10.0)
[2018-02-03 07:28] LABS: ALBUMIN 2.6 GM/DL (3.2-5.2); ALBUMIN/GLOBULIN RATIO 0.96 (1.00-1.93); ALKALINE PHOSPHATASE 72 U/L (45-117); ALT/SGPT 33 U/L (12-78); ANION GAP 9 MEQ/L (8-16); AST/SGOT 18 U/L (7-37); BILIRUBIN,TOTAL 0.2 MG/DL (0.2-1.0); BLOOD UREA NITROGEN 15 MG/DL (7-18); CALCIUM LEVEL 8.2 MG/DL (8.5-10.1); CARBON DIOXIDE LEVEL 21 MEQ/L (21-32); CHLORIDE LEVEL 111 MEQ/L (98-107); CREATININE FOR GFR 0.74 MG/DL (0.55-1.30); GLOMERULAR FILTRATION RATE > 60.0 (>60); GLUCOSE, FASTING 72 MG/DL (70-100); MAGNESIUM LEVEL 1.9 MG/DL (1.8-2.4); POTASSIUM SERUM 4.4 MEQ/L (3.5-5.1); SODIUM LEVEL 141 MEQ/L (136-145); TOTAL PROTEIN 5.3 GM/DL (6.4-8.2)
[2018-02-03] MEDS: predniSONE 10 MG TAB PO (07:41)
[2018-02-03] MEDS: FAMOTIDINE 20 MG TAB PO (07:41)
[2018-02-03] MEDS: guaiFENesin ER 600 MG TAB PO ×2 (07:41→20:22)
[2018-02-03] MEDS: GABAPENTIN 400 MG CAP PO ×3 (07:41→20:22)
[2018-02-03] MEDS: BENZOCAINE 7.5 % LIQ (BABY ORAJEL) MT ×2 (07:42→20:23)
[2018-02-03] MEDS: SYMBICORT 160/4.5MCG INHALER 6GM INH ×3 (08:36→20:49)
[2018-02-03] MEDS: LORazepam 1 MG TAB PO ×2 (09:51→20:30)
[2018-02-03] MEDS: oxyCODONE 5MG TAB PO ×2 (09:52→19:22)
[2018-02-03] MEDS: CYCLOBENZAPRINE 5MG TABLET PO ×3 (10:24→20:23)
[2018-02-03] MEDS: FOLIC ACID 1 MG TAB PO (10:24)
[2018-02-03] MEDS: MONTELUKAST 10 MG TAB PO (10:24)
[2018-02-03] MEDS: TOPIRAMATE (TopAMAX) 25 MG TAB PO ×2 (10:24→20:22)
[2018-02-03] MEDS: PANTOPRAZOLE 40MG TAB (PROTONIX) PO ×2 (10:24→20:23)
[2018-02-03] MEDS: MULTIVITAMINS/MINERALS THERAP 1 TAB PO ×2 (10:24→20:23)
[2018-02-03] MEDS: OLANZapine 2.5MG TABLET PO (11:49)
[2018-02-03] MEDS: miSOPROStol 100 MCG TAB (S0191) PO ×2 (11:49→20:23)
[2018-02-03] MEDS: NORTRIPTYLINE 10 MG CAP PO ×2 (11:50→20:22)
[2018-02-03] MEDS: METHOCARBAMOL 750 MG TAB PO ×2 (11:50→20:22)
[2018-02-03] MEDS: diphenhydrAMINE 25 MG CAP PO (13:28)
[2018-02-03] MEDS: FIORICET TAB PO (14:08)
[2018-02-03] MEDS: AMITRIPTYLINE 50 MG TAB PO (20:22)
[2018-02-03] MEDS: DULoxetine 30 MG CAP (CYMBALTA) PO (20:22)
[2018-02-03] MEDS: HYDROXYCHLOROQUINE 200 MG TAB PO (20:23)
[2018-02-03] MEDS: QUEtiapine 300 MG XR TABLET(SEROQUEL XR) PO (20:23)
[2018-02-03] MEDS: METOCLOPRAMIDE 5 MG TAB PO (20:56)
[2018-02-04] MEDS: LORazepam 1 MG TAB PO ×2 (08:38→22:22)
[2018-02-04] MEDS: NORTRIPTYLINE 10 MG CAP PO ×2 (08:38→20:11)
[2018-02-04] MEDS: FOLIC ACID 1 MG TAB PO (08:39)
[2018-02-04] MEDS: oxyCODONE 5MG TAB PO ×2 (08:39→22:23)
[2018-02-04] MEDS: OLANZapine 2.5MG TABLET PO (08:39)
[2018-02-04] MEDS: METHOCARBAMOL 750 MG TAB PO (08:39)
[2018-02-04] MEDS: CYCLOBENZAPRINE 5MG TABLET PO ×3 (08:40→20:10)
[2018-02-04] MEDS: TOPIRAMATE (TopAMAX) 25 MG TAB PO ×3 (08:40→20:10)
[2018-02-04] MEDS: PANTOPRAZOLE 40MG TAB (PROTONIX) PO ×2 (08:40→20:10)
[2018-02-04] MEDS: MONTELUKAST 10 MG TAB PO (08:40)
[2018-02-04] MEDS: guaiFENesin ER 600 MG TAB PO ×2 (08:40→20:11)
[2018-02-04] MEDS: predniSONE 10 MG TAB PO (08:40)
[2018-02-04] MEDS: GABAPENTIN 400 MG CAP PO ×2 (08:40→15:24)
[2018-02-04] MEDS: miSOPROStol 100 MCG TAB (S0191) PO ×2 (08:40→20:10)
[2018-02-04] MEDS: FAMOTIDINE 20 MG TAB PO (08:40)
[2018-02-04] MEDS: MULTIVITAMINS/MINERALS THERAP 1 TAB PO ×2 (08:41→20:11)
[2018-02-04] MEDS: BENZOCAINE 7.5 % LIQ (BABY ORAJEL) MT ×2 (08:41→20:12)
[2018-02-04] MEDS: SYMBICORT 160/4.5MCG INHALER 6GM INH ×2 (08:45→20:53)
[2018-02-04] MEDS: OXcarbazepine 150 MG TAB PO (09:00)
[2018-02-04] MEDS: diphenhydrAMINE 25 MG CAP PO (12:50)
[2018-02-04] MEDS: ACETAMINOPHEN TAB 650MG DOSE (2X325MG) PO (15:24)
[2018-02-04] MEDS: AMITRIPTYLINE 25 MG TAB PO (20:10)
[2018-02-04] MEDS: METHOCARBAMOL 500 MG TAB PO (20:10)
[2018-02-04] MEDS: DULoxetine 30 MG CAP (CYMBALTA) PO (20:10)
[2018-02-04] MEDS: GABAPENTIN 300 MG CAP PO (20:10)
[2018-02-04] MEDS: HYDROXYCHLOROQUINE 200 MG TAB PO (20:11)
[2018-02-04] MEDS: QUEtiapine FUMARATE **XR** 200MG TABLET PO (20:11)
[2018-02-04] MEDS: FIORICET TAB PO (22:54)
[2018-02-05] MEDS: SYMBICORT 160/4.5MCG INHALER 6GM INH ×2 (08:25→20:42)
[2018-02-05] MEDS: OLANZapine 2.5MG TABLET PO (09:54)
[2018-02-05] MEDS: GABAPENTIN 300 MG CAP PO ×3 (09:54→20:24)
[2018-02-05] MEDS: FOLIC ACID 1 MG TAB PO (09:55)
[2018-02-05] MEDS: NORTRIPTYLINE 10 MG CAP PO ×2 (09:55→20:22)
[2018-02-05] MEDS: TOPIRAMATE (TopAMAX) 25 MG TAB PO ×3 (09:56→20:23)
[2018-02-05] MEDS: FAMOTIDINE 20 MG TAB PO (09:56)
[2018-02-05] MEDS: PANTOPRAZOLE 40MG TAB (PROTONIX) PO ×2 (09:56→20:24)
[2018-02-05] MEDS: METHOCARBAMOL 500 MG TAB PO ×2 (09:56→20:24)
[2018-02-05] MEDS: MONTELUKAST 10 MG TAB PO (09:56)
[2018-02-05] MEDS: MULTIVITAMINS/MINERALS THERAP 1 TAB PO ×2 (09:56→20:24)
[2018-02-05] MEDS: miSOPROStol 100 MCG TAB (S0191) PO ×2 (09:56→20:23)
[2018-02-05] MEDS: CYCLOBENZAPRINE 5MG TABLET PO ×3 (09:57→20:23)
[2018-02-05] MEDS: guaiFENesin ER 600 MG TAB PO ×2 (09:57→20:23)
[2018-02-05] MEDS: OXcarbazepine 150 MG TAB PO (09:57)
[2018-02-05] MEDS: BENZOCAINE 7.5 % LIQ (BABY ORAJEL) MT ×2 (09:58→21:00)
[2018-02-05] MEDS: LORazepam 1 MG TAB PO ×2 (10:12→20:24)
[2018-02-05] MEDS: oxyCODONE 5MG TAB PO ×2 (11:44→20:25)
[2018-02-05] MEDS: DIHYDROERGOTAMINE (13:52)
[2018-02-05] MEDS: METOCLOPRAMIDE 5 MG TAB PO (16:35)
[2018-02-05] MEDS: HYDROXYCHLOROQUINE 200 MG TAB PO (20:23)
[2018-02-05] MEDS: diphenhydrAMINE 25 MG CAP PO (20:23)
[2018-02-05] MEDS: DULoxetine 30 MG CAP (CYMBALTA) PO (20:23)
[2018-02-05] MEDS: AMITRIPTYLINE 25 MG TAB PO (20:24)
[2018-02-05] MEDS: QUEtiapine FUMARATE **XR** 200MG TABLET PO (20:24)
[2018-02-05] MEDS: MOM 30ML SUSPENSION UDC PO (20:25)
[2018-02-06] MEDS: SYMBICORT 160/4.5MCG INHALER 6GM INH ×2 (08:27→21:04)
[2018-02-06] MEDS: CYCLOBENZAPRINE 5MG TABLET PO ×3 (09:26→21:14)
[2018-02-06] MEDS: MONTELUKAST 10 MG TAB PO (09:26)
[2018-02-06] MEDS: OLANZapine 2.5MG TABLET PO (09:26)
[2018-02-06] MEDS: GABAPENTIN 300 MG CAP PO ×3 (09:26→21:14)
[2018-02-06] MEDS: miSOPROStol 100 MCG TAB (S0191) PO ×2 (09:26→21:15)
[2018-02-06] MEDS: FOLIC ACID 1 MG TAB PO (09:26)
[2018-02-06] MEDS: FAMOTIDINE 20 MG TAB PO (09:27)
[2018-02-06] MEDS: TOPIRAMATE (TopAMAX) 25 MG TAB PO ×3 (09:27→21:16)
[2018-02-06] MEDS: NORTRIPTYLINE 10 MG CAP PO ×2 (09:27→21:16)
[2018-02-06] MEDS: guaiFENesin ER 600 MG TAB PO ×2 (09:27→21:14)
[2018-02-06] MEDS: MULTIVITAMINS/MINERALS THERAP 1 TAB PO ×2 (09:27→21:16)
[2018-02-06] MEDS: OXcarbazepine 150 MG TAB PO (09:28)
[2018-02-06] MEDS: PANTOPRAZOLE 40MG TAB (PROTONIX) PO ×2 (09:28→21:16)
[2018-02-06] MEDS: METHOCARBAMOL 500 MG TAB PO ×2 (09:28→21:16)
[2018-02-06] MEDS: BENZOCAINE 7.5 % LIQ (BABY ORAJEL) MT ×2 (09:36→21:16)
[2018-02-06] MEDS: LORazepam 1 MG TAB PO ×2 (09:46→21:15)
[2018-02-06] MEDS: METOCLOPRAMIDE 5 MG TAB PO ×2 (09:50→18:46)
[2018-02-06] MEDS: DIHYDROERGOTAMINE ×2 (11:26→22:34)
[2018-02-06] MEDS: FIORICET TAB PO ×2 (11:27→18:49)
[2018-02-06] MEDS: oxyCODONE 5MG TAB PO (13:15)
[2018-02-06] MEDS: HYDROXYCHLOROQUINE 200 MG TAB PO (21:14)
[2018-02-06] MEDS: AMITRIPTYLINE 25 MG TAB PO (21:14)
[2018-02-06] MEDS: DULoxetine 30 MG CAP (CYMBALTA) PO (21:15)
[2018-02-06] MEDS: SENOKOT S TAB PO (21:15)
[2018-02-06] MEDS: QUEtiapine FUMARATE **XR** 200MG TABLET PO (21:15)
[2018-02-06] MEDS: diphenhydrAMINE 25 MG CAP PO (21:15)
[2018-02-07] MEDS: SYMBICORT 160/4.5MCG INHALER 6GM INH ×2 (08:02→21:02)
[2018-02-07] MEDS: BENZOCAINE 7.5 % LIQ (BABY ORAJEL) MT ×2 (09:00→21:00)
[2018-02-07] MEDS: OLANZapine 2.5MG TABLET PO (11:02)
[2018-02-07] MEDS: guaiFENesin ER 600 MG TAB PO ×2 (11:02→21:30)
[2018-02-07] MEDS: PANTOPRAZOLE 40MG TAB (PROTONIX) PO ×2 (11:03→21:30)
[2018-02-07] MEDS: CYCLOBENZAPRINE 5MG TABLET PO ×3 (11:03→21:46)
[2018-02-07] MEDS: GABAPENTIN 300 MG CAP PO ×3 (11:03→21:30)
[2018-02-07] MEDS: FAMOTIDINE 20 MG TAB PO (11:03)
[2018-02-07] MEDS: MONTELUKAST 10 MG TAB PO (11:04)
[2018-02-07] MEDS: MULTIVITAMINS/MINERALS THERAP 1 TAB PO ×2 (11:04→21:30)
[2018-02-07] MEDS: METHOTREXATE 2.5 MG TAB (J8610 PER 2.5MG) PO (11:04)
[2018-02-07] MEDS: METHOCARBAMOL 500 MG TAB PO ×2 (11:05→21:30)
[2018-02-07] MEDS: FOLIC ACID 1 MG TAB PO (11:05)
[2018-02-07] MEDS: NORTRIPTYLINE 10 MG CAP PO ×2 (11:05→21:30)
[2018-02-07] MEDS: TOPIRAMATE (TopAMAX) 25 MG TAB PO ×3 (11:05→21:30)
[2018-02-07] MEDS: miSOPROStol 100 MCG TAB (S0191) PO ×2 (11:06→21:31)
[2018-02-07] MEDS: OXcarbazepine 150 MG TAB PO (11:06)
[2018-02-07] MEDS: oxyCODONE 5MG TAB PO ×2 (11:08→21:50)
[2018-02-07] MEDS: diphenhydrAMINE 25 MG CAP PO ×2 (15:18→23:17)
[2018-02-07] MEDS: FIORICET TAB PO (15:55)
[2018-02-07] MEDS: DIHYDROERGOTAMINE (16:07)
[2018-02-07] MEDS: AMITRIPTYLINE 25 MG TAB PO (21:29)
[2018-02-07] MEDS: QUEtiapine FUMARATE **XR** 200MG TABLET PO (21:30)
[2018-02-07] MEDS: DULoxetine 30 MG CAP (CYMBALTA) PO (21:31)
[2018-02-07] MEDS: HYDROXYCHLOROQUINE 200 MG TAB PO (21:46)
[2018-02-07] MEDS: LORazepam 1 MG TAB PO (21:50)
[2018-02-08 07:22] LABS: HEMATOCRIT 33.9 % (36.0-47.0); HEMOGLOBIN 10.8 g/dl (12.0-16.0); MEAN CORPUSCULAR HEMOGLOBIN 29.1 pg (27.0-33.0); MEAN CORPUSCULAR HGB CONC 31.9 g/dl (32.0-36.5); MEAN CORPUSCULAR VOLUME 91.4 fl (80.0-96.0); PLATELET COUNT, AUTOMATED 228 10^3/uL (150-450); RED BLOOD COUNT 3.71 10^6/uL (4.00-5.40); RED CELL DISTRIBUTION WIDTH 15.1 % (11.5-14.5); WHITE BLOOD COUNT 8.6 10^3/uL (4.0-10.0)
[2018-02-08 07:37] LABS: ANION GAP 7 MEQ/L (8-16); BLOOD UREA NITROGEN 15 MG/DL (7-18); CALCIUM LEVEL 8.4 MG/DL (8.5-10.1); CARBON DIOXIDE LEVEL 25 MEQ/L (21-32); CHLORIDE LEVEL 107 MEQ/L (98-107); CREATININE FOR GFR 0.68 MG/DL (0.55-1.30); GLOMERULAR FILTRATION RATE > 60.0 (>60); GLUCOSE, FASTING 76 MG/DL (70-100); MAGNESIUM LEVEL 1.9 MG/DL (1.8-2.4); SODIUM LEVEL 139 MEQ/L (136-145)
[2018-02-08] MEDS: BENZOCAINE 7.5 % LIQ (BABY ORAJEL) MT (07:47)
[2018-02-08] MEDS: SYMBICORT 160/4.5MCG INHALER 6GM INH ×2 (08:32→21:09)
[2018-02-08] MEDS: miSOPROStol 100 MCG TAB (S0191) PO ×2 (09:23→20:25)
[2018-02-08] MEDS: LORazepam 1 MG TAB PO ×2 (09:23→20:27)
[2018-02-08] MEDS: OLANZapine 2.5MG TABLET PO (09:23)
[2018-02-08] MEDS: GABAPENTIN 300 MG CAP PO ×3 (09:23→20:25)
[2018-02-08] MEDS: MULTIVITAMINS/MINERALS THERAP 1 TAB PO ×2 (09:23→20:27)
[2018-02-08] MEDS: TOPIRAMATE (TopAMAX) 25 MG TAB PO ×3 (09:23→20:25)
[2018-02-08] MEDS: OXcarbazepine 150 MG TAB PO (09:24)
[2018-02-08] MEDS: oxyCODONE 5MG TAB PO (09:24)
[2018-02-08] MEDS: FOLIC ACID 1 MG TAB PO (09:24)
[2018-02-08] MEDS: PANTOPRAZOLE 40MG TAB (PROTONIX) PO ×2 (09:25→20:26)
[2018-02-08] MEDS: FAMOTIDINE 20 MG TAB PO (09:25)
[2018-02-08] MEDS: METHOCARBAMOL 500 MG TAB PO (09:25)
[2018-02-08] MEDS: CYCLOBENZAPRINE 5MG TABLET PO ×2 (09:25→15:18)
[2018-02-08] MEDS: guaiFENesin ER 600 MG TAB PO (09:25)
[2018-02-08] MEDS: MONTELUKAST 10 MG TAB PO (09:25)
[2018-02-08] MEDS: NORTRIPTYLINE 10 MG CAP PO ×2 (09:34→20:24)
[2018-02-08] MEDS ORDERED: guaiFENesin ER 600 MG TAB PO (12:00)
[2018-02-08] MEDS: ONDANSETRON 4 MG ORAL DISINTEGRATING TAB (S0181) PO (17:51)
[2018-02-08] MEDS: DULoxetine 30 MG CAP (CYMBALTA) PO (20:24)
[2018-02-08] MEDS: METOCLOPRAMIDE 5 MG TAB PO (20:25)
[2018-02-08] MEDS: HYDROXYCHLOROQUINE 200 MG TAB PO (20:25)
[2018-02-08] MEDS: QUEtiapine FUMARATE **XR** 200MG TABLET PO (20:25)
[2018-02-08] MEDS: diphenhydrAMINE 25 MG CAP PO (20:27)
[2018-02-08] MEDS ORDERED: AMITRIPTYLINE 25 MG TAB PO (21:00)
[2018-02-09] MEDS: SYMBICORT 160/4.5MCG INHALER 6GM INH ×2 (08:30→20:02)
[2018-02-09] MEDS: METHOCARBAMOL 500 MG TAB PO (08:44)
[2018-02-09] MEDS: CYCLOBENZAPRINE 5MG TABLET PO (08:44)
[2018-02-09] MEDS: MULTIVITAMINS/MINERALS THERAP 1 TAB PO ×2 (08:44→20:06)
[2018-02-09] MEDS: TOPIRAMATE (TopAMAX) 25 MG TAB PO ×3 (08:45→20:06)
[2018-02-09] MEDS: OXcarbazepine 150 MG TAB PO (08:45)
[2018-02-09] MEDS: FAMOTIDINE 20 MG TAB PO (08:45)
[2018-02-09] MEDS: PANTOPRAZOLE 40MG TAB (PROTONIX) PO ×2 (08:45→20:05)
[2018-02-09] MEDS: miSOPROStol 100 MCG TAB (S0191) PO ×2 (08:45→20:06)
[2018-02-09] MEDS: FOLIC ACID 1 MG TAB PO (08:45)
[2018-02-09] MEDS: OLANZapine 2.5MG TABLET PO (08:45)
[2018-02-09] MEDS: NORTRIPTYLINE 10 MG CAP PO ×2 (08:45→20:05)
[2018-02-09] MEDS: GABAPENTIN 300 MG CAP PO ×3 (08:45→20:06)
[2018-02-09] MEDS: MONTELUKAST 10 MG TAB PO (08:45)
[2018-02-09] MEDS: ACETAMINOPHEN TAB 650MG DOSE (2X325MG) PO (13:59)
[2018-02-09] MEDS: DIHYDROERGOTAMINE (16:07)
[2018-02-09] MEDS: LORazepam 1 MG TAB PO (20:04)
[2018-02-09] MEDS: FIORICET TAB PO (20:04)
[2018-02-09] MEDS: QUEtiapine FUMARATE **XR** 200MG TABLET PO (20:05)
[2018-02-09] MEDS: HYDROXYCHLOROQUINE 200 MG TAB PO (20:05)
[2018-02-09] MEDS: oxyCODONE 5MG TAB PO (20:05)
[2018-02-09] MEDS: DULoxetine 30 MG CAP (CYMBALTA) PO (20:06)
[2018-02-09] MEDS: diphenhydrAMINE 25 MG CAP PO (20:06)
[2018-02-10] MEDS: SYMBICORT 160/4.5MCG INHALER 6GM INH ×2 (08:20→19:54)
[2018-02-10] MEDS: OXcarbazepine 150 MG TAB PO (10:13)
[2018-02-10] MEDS: METHOCARBAMOL 500 MG TAB PO (10:13)
[2018-02-10] MEDS: TOPIRAMATE (TopAMAX) 25 MG TAB PO ×3 (10:14→20:11)
[2018-02-10] MEDS: CYCLOBENZAPRINE 5MG TABLET PO (10:14)
[2018-02-10] MEDS: GABAPENTIN 300 MG CAP PO ×3 (10:14→20:10)
[2018-02-10] MEDS: OLANZapine 2.5MG TABLET PO (10:15)
[2018-02-10] MEDS: FAMOTIDINE 20 MG TAB PO (10:15)
[2018-02-10] MEDS: MONTELUKAST 10 MG TAB PO (10:15)
[2018-02-10] MEDS: FOLIC ACID 1 MG TAB PO (10:16)
[2018-02-10] MEDS: NORTRIPTYLINE 10 MG CAP PO ×2 (10:16→20:10)
[2018-02-10] MEDS: PANTOPRAZOLE 40MG TAB (PROTONIX) PO ×2 (10:16→20:12)
[2018-02-10] MEDS: miSOPROStol 100 MCG TAB (S0191) PO ×2 (10:16→20:10)
[2018-02-10] MEDS: MULTIVITAMINS/MINERALS THERAP 1 TAB PO ×2 (10:16→20:12)
[2018-02-10] MEDS: LORazepam 1 MG TAB PO ×2 (10:17→20:11)
[2018-02-10] MEDS: oxyCODONE 5MG TAB PO ×2 (10:18→20:12)
[2018-02-10] MEDS: FIORICET TAB PO ×2 (12:44→20:11)
[2018-02-10] MEDS: DIHYDROERGOTAMINE (12:45)
[2018-02-10] MEDS: HYDROXYCHLOROQUINE 200 MG TAB PO (20:10)
[2018-02-10] MEDS: DULoxetine 30 MG CAP (CYMBALTA) PO (20:11)
[2018-02-10] MEDS: diphenhydrAMINE 25 MG CAP PO (20:11)
[2018-02-10] MEDS: QUEtiapine FUMARATE **XR** 200MG TABLET PO (20:12)
[2018-02-10] MEDS: MOM 30ML SUSPENSION UDC PO (21:50)
[2018-02-10] MEDS: SENOKOT S TAB PO (21:50)
[2018-02-11 06:22] LABS: HEMOGLOBIN 11.1 g/dl (12.0-16.0); MEAN CORPUSCULAR HEMOGLOBIN 29.3 pg (27.0-33.0); MEAN CORPUSCULAR HGB CONC 32.6 g/dl (32.0-36.5); MEAN CORPUSCULAR VOLUME 89.7 fl (80.0-96.0); PLATELET COUNT, AUTOMATED 215 10^3/uL (150-450); RED BLOOD COUNT 3.79 10^6/uL (4.00-5.40); RED CELL DISTRIBUTION WIDTH 14.8 % (11.5-14.5); WHITE BLOOD COUNT 6.5 10^3/uL (4.0-10.0)
[2018-02-11 06:36] LABS: ANION GAP 7 MEQ/L (8-16); BLOOD UREA NITROGEN 16 MG/DL (7-18); CALCIUM LEVEL 8.4 MG/DL (8.5-10.1); CARBON DIOXIDE LEVEL 25 MEQ/L (21-32); CHLORIDE LEVEL 109 MEQ/L (98-107); CREATININE FOR GFR 0.75 MG/DL (0.55-1.30); GLOMERULAR FILTRATION RATE > 60.0 (>60); GLUCOSE, FASTING 105 MG/DL (70-100); MAGNESIUM LEVEL 2.5 MG/DL (1.8-2.4); POTASSIUM SERUM 4.1 MEQ/L (3.5-5.1); SODIUM LEVEL 141 MEQ/L (136-145)
[2018-02-11] MEDS: SYMBICORT 160/4.5MCG INHALER 6GM INH ×2 (07:22→19:59)
[2018-02-11] MEDS: oxyCODONE 5MG TAB PO ×2 (08:46→20:22)
[2018-02-11] MEDS: LORazepam 1 MG TAB PO ×2 (08:46→20:22)
[2018-02-11] MEDS: MONTELUKAST 10 MG TAB PO (09:02)
[2018-02-11] MEDS: MULTIVITAMINS/MINERALS THERAP 1 TAB PO ×2 (09:02→20:23)
[2018-02-11] MEDS: GABAPENTIN 300 MG CAP PO ×3 (09:02→20:23)
[2018-02-11] MEDS: NORTRIPTYLINE 10 MG CAP PO ×2 (09:02→20:23)
[2018-02-11] MEDS: OXcarbazepine 150 MG TAB PO (09:03)
[2018-02-11] MEDS: miSOPROStol 100 MCG TAB (S0191) PO ×2 (09:03→20:21)
[2018-02-11] MEDS: CYCLOBENZAPRINE 5MG TABLET PO (09:03)
[2018-02-11] MEDS: FOLIC ACID 1 MG TAB PO (09:03)
[2018-02-11] MEDS: PANTOPRAZOLE 40MG TAB (PROTONIX) PO ×2 (09:03→20:23)
[2018-02-11] MEDS: TOPIRAMATE (TopAMAX) 25 MG TAB PO ×3 (09:03→20:23)
[2018-02-11] MEDS: HYDROCORTISONE 1% CREAM 30 GM TOP ×2 (10:13→20:21)
[2018-02-11] MEDS: OLANZapine 2.5MG TABLET PO (10:13)
[2018-02-11] MEDS: FIORICET TAB PO ×2 (13:44→22:58)
[2018-02-11] MEDS: DIHYDROERGOTAMINE ×2 (13:45→22:08)
[2018-02-11] MEDS: MIRALAX *UNIT DOSE* 17GM PACKET PO (20:21)
[2018-02-11] MEDS: HYDROXYCHLOROQUINE 200 MG TAB PO (20:22)
[2018-02-11] MEDS: DULoxetine 30 MG CAP (CYMBALTA) PO (20:22)
[2018-02-11] MEDS: diphenhydrAMINE 50 MG CAP PO (20:22)
[2018-02-11] MEDS: QUEtiapine FUMARATE **XR** 200MG TABLET PO (20:23)
[2018-02-11] MEDS: SENOKOT S TAB PO (20:23)
[2018-02-11] MEDS: METOCLOPRAMIDE 5 MG TAB PO (20:32)
[2018-02-12] MEDS: SYMBICORT 160/4.5MCG INHALER 6GM INH (07:38)
[2018-02-12] MEDS: HYDROCORTISONE 1% CREAM 30 GM TOP (08:27)
[2018-02-12] MEDS: CYCLOBENZAPRINE 5MG TABLET PO (08:27)
[2018-02-12] MEDS: MULTIVITAMINS/MINERALS THERAP 1 TAB PO (08:27)
[2018-02-12] MEDS: OLANZapine 2.5MG TABLET PO (08:27)
[2018-02-12] MEDS: NORTRIPTYLINE 10 MG CAP PO (08:28)
[2018-02-12] MEDS: miSOPROStol 100 MCG TAB (S0191) PO (08:28)
[2018-02-12] MEDS: OXcarbazepine 150 MG TAB PO (08:28)
[2018-02-12] MEDS: TOPIRAMATE (TopAMAX) 25 MG TAB PO (08:28)
[2018-02-12] MEDS: MONTELUKAST 10 MG TAB PO (08:28)
[2018-02-12] MEDS: LORazepam 1 MG TAB PO (08:28)
[2018-02-12] MEDS: FOLIC ACID 1 MG TAB PO (08:28)
[2018-02-12] MEDS: PANTOPRAZOLE 40MG TAB (PROTONIX) PO (08:28)
[2018-02-12] MEDS: GABAPENTIN 300 MG CAP PO (08:34)
[2018-02-12] MEDS: oxyCODONE 5MG TAB PO (08:46)
[2018-02-12] MEDS: MOM 30ML SUSPENSION UDC PO (09:18)
[2018-02-12] MEDS: FIORICET TAB PO (10:49)
== END 2018-02-12 12:51 | DRG 545 ==
LOC: M ED INP 01-04 01:14 → M MSPAV 01-05 15:26 → M ED 18:43 → M PCU 01-04 02:33
PROVIDERS: Internal Medicine
PROC: 009U3ZX Drainage of Spinal Canal, Percutaneous Approach, Diagnostic (ICD-10-PCS; principal; 2018-01-04)
DX: M32.19 Other organ or system involvement in systemic lupus erythematosus (principal); G93.41 Metabolic encephalopathy; E87.2 Acidosis; E46 Unspecified protein-calorie malnutrition; M06.9 Rheumatoid arthritis, unspecified; M35.00 Sjogren syndrome, unspecified; L89.151 Pressure ulcer of sacral region, stage 1; G04.90 Encephalitis and encephalomyelitis, unspecified; K59.00 Constipation, unspecified; F17.200 Nicotine dependence, unspecified, uncomplicated; K21.9 Gastro-esophageal reflux disease without esophagitis; D72.829 Elevated white blood cell count, unspecified; E87.6 Hypokalemia; F31.9 Bipolar disorder, unspecified; F43.10 Post-traumatic stress disorder, unspecified; J45.909 Unspecified asthma, uncomplicated; G43.909 Migraine, unspecified, not intractable, without status migrainosus; G89.29 Other chronic pain; Z79.899 Other long term (current) drug therapy; Z88.2 Allergy status to sulfonamides; Z88.8 Allergy status to other drugs, medicaments and biological substances; Z88.1 Allergy status to other antibiotic agents; Z91.040 Latex allergy status; M79.7 Fibromyalgia; D50.9 Iron deficiency anemia, unspecified; I95.9 Hypotension, unspecified

== ENCOUNTER 2018-04-18 15:33 | Emergency (ER) | payer MEDICARE, MEDICAID ==
[2018-04-18] MEDS: methylPREDNISolone INJ 125 MG/2 ML VIAL (J2930) IV (16:43)
[2018-04-18] MEDS: METOCLOPRAMIDE INJ 10MG/2ML VIAL (J2765) IV (16:43)
[2018-04-18] MEDS: NS 1,000 ML IV (16:43)
[2018-04-18] MEDS: KETOROLAC 30 MG/ML VIAL (J1885) IV (16:44)
[2018-04-18] MEDS: diphenhydrAMINE INJ 50MG/ML VIAL (J1200) IV (16:44)
[2018-04-18] MEDS: MORPHINE 4 MG/ML 1ML VIAL/SYRINGE (J2270) IV (17:15)
== END 2018-04-18 18:06 | disposition home or self-care (01) ==
LOC: M ED 15:33
DX: M32.9 Systemic lupus erythematosus, unspecified (principal); G43.909 Migraine, unspecified, not intractable, without status migrainosus; K21.9 Gastro-esophageal reflux disease without esophagitis; F31.9 Bipolar disorder, unspecified; Z98.84 Bariatric surgery status; F17.210 Nicotine dependence, cigarettes, uncomplicated; Z88.1 Allergy status to other antibiotic agents; Z88.2 Allergy status to sulfonamides; Z88.8 Allergy status to other drugs, medicaments and biological substances; Z91.040 Latex allergy status; Z79.899 Other long term (current) drug therapy; Z79.51 Long term (current) use of inhaled steroids
CPT/HCPCS: J1200

== ENCOUNTER 2018-04-20 16:26 | Emergency (ER) | payer MEDICARE, MEDICAID | END 2018-04-20 18:37 | disposition home or self-care (01) | LOC: M ED 16:26 | DX: G43.709 Chronic migraine without aura, not intractable, without status migrainosus (principal); J45.909 Unspecified asthma, uncomplicated; E28.2 Polycystic ovarian syndrome; K76.0 Fatty (change of) liver, not elsewhere classified; F17.200 Nicotine dependence, unspecified, uncomplicated; Z98.0 Intestinal bypass and anastomosis status; Z98.890 Other specified postprocedural states; Z88.2 Allergy status to sulfonamides; Z88.8 Allergy status to other drugs, medicaments and biological substances; Z91.040 Latex allergy status; Z88.1 Allergy status to other antibiotic agents; Z79.899 Other long term (current) drug therapy | CPT/HCPCS: 99282 ==

== ENCOUNTER 2018-05-07 14:18 | Emergency (ER) | payer MEDICARE, MEDICAID ==
[2018-05-07] MEDS: METOCLOPRAMIDE INJ 10MG/2ML VIAL (J2765) IV ×2 (15:25)
[2018-05-07] MEDS: diphenhydrAMINE INJ 50MG/ML VIAL (J1200) IV ×2 (15:25)
[2018-05-07] MEDS: KETOROLAC 30 MG/ML VIAL (J1885) IV ×2 (15:25)
[2018-05-07] MEDS: NS 1,000 ML IV ×2 (15:25)
== END 2018-05-07 16:11 | disposition home or self-care (01) ==
LOC: M ED 14:18
DX: G43.909 Migraine, unspecified, not intractable, without status migrainosus (principal); J30.2 Other seasonal allergic rhinitis; Z98.84 Bariatric surgery status; Z72.0 Tobacco use; Z79.899 Other long term (current) drug therapy; Z88.8 Allergy status to other drugs, medicaments and biological substances; Z88.2 Allergy status to sulfonamides; Z88.1 Allergy status to other antibiotic agents; Z91.040 Latex allergy status
CPT/HCPCS: J1200

== ENCOUNTER 2018-05-19 12:44 | Emergency (ER) | payer MEDICARE, MEDICAID ==
[2018-05-19] MEDS: methylPREDNISolone INJ 40 MG/1 ML VIAL (J2920) IM (14:51)
== END 2018-05-19 15:21 | disposition home or self-care (01) ==
LOC: M ED 12:44
DX: M32.9 Systemic lupus erythematosus, unspecified (principal); I10 Essential (primary) hypertension; J45.909 Unspecified asthma, uncomplicated; M06.9 Rheumatoid arthritis, unspecified; M79.7 Fibromyalgia; J44.9 Chronic obstructive pulmonary disease, unspecified; F31.9 Bipolar disorder, unspecified; K76.9 Liver disease, unspecified; G43.909 Migraine, unspecified, not intractable, without status migrainosus; E28.2 Polycystic ovarian syndrome; F17.200 Nicotine dependence, unspecified, uncomplicated; Z88.1 Allergy status to other antibiotic agents; Z88.2 Allergy status to sulfonamides; Z88.8 Allergy status to other drugs, medicaments and biological substances; Z91.040 Latex allergy status; Z79.899 Other long term (current) drug therapy; Z79.51 Long term (current) use of inhaled steroids; Z98.84 Bariatric surgery status
CPT/HCPCS: J2920

== ENCOUNTER 2018-05-21 09:34 | Emergency (ER) | payer MEDICARE, MEDICAID ==
[2018-05-21] MEDS ORDERED: ISOVUE-370 76% 100ML VIAL (Q9967) As Ordered (10:33)
[2018-05-21 10:45] LABS: BASO % 0.3 % (0.0-1.0); EOS % 0.1 % (0.0-3.0); HEMATOCRIT 35.7 % (36.0-47.0); HEMOGLOBIN 12.4 g/dl (12.0-15.5); IMMATURE GRANULOCYTE % 0.5 % (0-3.0); LYMPH # 1.1 10^3/uL (1.5-4.5); LYMPH % 15.2 % (24.0-44.0); MEAN CORPUSCULAR HEMOGLOBIN 29.7 pg (27.0-33.0); MEAN CORPUSCULAR HGB CONC 34.7 g/dl (32.0-36.5); MEAN CORPUSCULAR VOLUME 85.6 fl (80.0-96.0); MONO # 0.2 10^3/uL (0.0-0.8); MONO % 2.1 % (0.0-5.0); NEUTROPHILS % 81.8 % (36.0-66.0); PLATELET COUNT, AUTOMATED 309 10^3/uL (150-450); RED BLOOD COUNT 4.17 10^6/uL (4.00-5.40); RED CELL DISTRIBUTION WIDTH 15.9 % (11.5-14.5); WHITE BLOOD COUNT 7.3 10^3/uL (4.0-10.0)
[2018-05-21] MEDS: ONDANSETRON 4MG/2ML VIAL (J2405) IV (10:58)
[2018-05-21] MEDS: MORPHINE 4 MG/ML 1ML VIAL/SYRINGE (J2270) IV ×2 (10:58→12:20)
[2018-05-21] MEDS: NS 500 ML IV (10:58)
[2018-05-21 11:01] LABS: INR 0.93; PARTIAL THROMBOPLASTIN TIME 25.1 SECONDS (25.4-37.6); PROTHROMBIN TIME 12.6 SECONDS (12.1-14.4)
[2018-05-21 11:13] LABS: LACTIC ACID SEPSIS PROTOCOL 0.9 MMOL/L (0.4-2.0)
[2018-05-21 11:13] LABS: ALBUMIN/GLOBULIN RATIO 1.33 (1.00-1.93); ALKALINE PHOSPHATASE 135 U/L (45-117); ALT/SGPT 21 U/L (12-78); AMYLASE 38 U/L (25-115); ANION GAP 9 MEQ/L (8-16); AST/SGOT 18 U/L (7-37); BILIRUBIN,DIRECT < 0.1 MG/DL (0.0-0.2); BILIRUBIN,TOTAL 0.3 MG/DL (0.2-1.0); BLOOD UREA NITROGEN 6 MG/DL (7-18); CALCIUM LEVEL 8.2 MG/DL (8.5-10.1); CARBON DIOXIDE LEVEL 21 MEQ/L (21-32); CHLORIDE LEVEL 96 MEQ/L (98-107); CK-MB VALUE MASS 3.4 NG/ML (<3.6); CPK CREATINE PHOSPHOKINASE 215 U/L (26-192); ETHYL ALCOHOL (ETHANOL) < 0.003 % (0.000-0.010); GLOMERULAR FILTRATION RATE > 60.0 (>60); GLUCOSE, FASTING 105 MG/DL (70-100); LIPASE 95 U/L (73-393); MB/CK RELATIVE INDEX 1.58 (< OR =4); POTASSIUM SERUM 3.7 MEQ/L (3.5-5.1); SODIUM LEVEL 126 MEQ/L (136-145); TROPONIN I < 0.02 NG/ML (< 0.10)
[2018-05-21 11:17] LABS: BEDSIDE GLUCOSE 111 MG/DL (70-105)
[2018-05-21 13:39] LABS: THYROID STIMULATING HORMONE 0.616 uIU/ML (0.358-3.740)
== END 2018-05-21 14:11 | disposition home or self-care (01) ==
LOC: M ED 09:34
DX: S60.221A Contusion of right hand, initial encounter (principal); S90.31XA Contusion of right foot, initial encounter; S80.02XA Contusion of left knee, initial encounter; E87.1 Hypo-osmolality and hyponatremia; W10.8XXA Fall (on) (from) other stairs and steps, initial encounter; Y92.89 Other specified places as the place of occurrence of the external cause; R42 Dizziness and giddiness; G43.909 Migraine, unspecified, not intractable, without status migrainosus; I10 Essential (primary) hypertension; J45.909 Unspecified asthma, uncomplicated; J44.9 Chronic obstructive pulmonary disease, unspecified; K21.9 Gastro-esophageal reflux disease without esophagitis; K58.9 Irritable bowel syndrome, unspecified; E46 Unspecified protein-calorie malnutrition; M79.7 Fibromyalgia; M32.9 Systemic lupus erythematosus, unspecified; K76.9 Liver disease, unspecified; D64.9 Anemia, unspecified; K75.9 Inflammatory liver disease, unspecified; F31.9 Bipolar disorder, unspecified; F41.9 Anxiety disorder, unspecified; Z79.899 Other long term (current) drug therapy; Z79.51 Long term (current) use of inhaled steroids; Z79.52 Long term (current) use of systemic steroids; Z98.84 Bariatric surgery status
CPT/HCPCS: J2270

== ENCOUNTER 2018-05-30 17:17 | Emergency (ER) | payer MEDICARE, MEDICAID ==
[2018-05-30] MEDS: NORCO, ANEXSIA 5/325MG TABLET (HYDROcodone/ACETAMINOPHEN) PO (18:46)
[2018-05-30 19:00] LABS: HEMATOCRIT 35.7 % (36.0-47.0); MEAN CORPUSCULAR HEMOGLOBIN 29.9 pg (27.0-33.0); MEAN CORPUSCULAR HGB CONC 33.6 g/dl (32.0-36.5); PLATELET COUNT, AUTOMATED 345 10^3/uL (150-450); RED BLOOD COUNT 4.01 10^6/uL (4.00-5.40); RED CELL DISTRIBUTION WIDTH 16.6 % (11.5-14.5); WHITE BLOOD COUNT 12.8 10^3/uL (4.0-10.0)
[2018-05-30 19:19] LABS: ANION GAP 8 MEQ/L (8-16); BLOOD UREA NITROGEN 8 MG/DL (7-18); C REACTIVE PROTEIN QUANTITATIV 0.96 MG/DL (0.00-0.30); CALCIUM LEVEL 8.1 MG/DL (8.5-10.1); CARBON DIOXIDE LEVEL 25 MEQ/L (21-32); CHLORIDE LEVEL 107 MEQ/L (98-107); CREATININE FOR GFR 0.94 MG/DL (0.55-1.30); GLOMERULAR FILTRATION RATE > 60.0 (>60); GLUCOSE, FASTING 104 MG/DL (70-100); POTASSIUM SERUM 4.1 MEQ/L (3.5-5.1); SODIUM LEVEL 140 MEQ/L (136-145)
[2018-05-30] MEDS ORDERED: CEPHALEXIN 500 MG CAP PO (20:30)
[2018-05-30] MEDS: DOXYCYCLINE HYCLATE 100 MG TAB PO (20:42)
== END 2018-05-30 20:48 | disposition home or self-care (01) ==
LOC: M ED 17:17
DX: L03.115 Cellulitis of right lower limb (principal); I10 Essential (primary) hypertension; J45.909 Unspecified asthma, uncomplicated; J44.9 Chronic obstructive pulmonary disease, unspecified; M79.7 Fibromyalgia; M32.9 Systemic lupus erythematosus, unspecified; K76.0 Fatty (change of) liver, not elsewhere classified; G43.909 Migraine, unspecified, not intractable, without status migrainosus; E28.2 Polycystic ovarian syndrome; F17.200 Nicotine dependence, unspecified, uncomplicated; Z88.8 Allergy status to other drugs, medicaments and biological substances; Z88.1 Allergy status to other antibiotic agents; Z88.2 Allergy status to sulfonamides; Z91.040 Latex allergy status; Z79.899 Other long term (current) drug therapy; Z79.51 Long term (current) use of inhaled steroids; Z98.84 Bariatric surgery status
CPT/HCPCS: 93971

== ENCOUNTER 2018-05-31 12:19 | Emergency (ER) | payer MEDICARE, MEDICAID ==
[2018-05-31] MEDS: NORCO, ANEXSIA 5/325MG TABLET (HYDROcodone/ACETAMINOPHEN) PO (14:37)
== END 2018-05-31 14:44 | disposition home or self-care (01) ==
LOC: M ED 12:19
DX: L03.115 Cellulitis of right lower limb (principal); Z76.0 Encounter for issue of repeat prescription; J45.909 Unspecified asthma, uncomplicated; M79.7 Fibromyalgia; M32.9 Systemic lupus erythematosus, unspecified; D64.9 Anemia, unspecified; K58.9 Irritable bowel syndrome, unspecified; F31.9 Bipolar disorder, unspecified; F50.2 Bulimia nervosa; E28.2 Polycystic ovarian syndrome; Z98.84 Bariatric surgery status; Z79.899 Other long term (current) drug therapy; Z88.1 Allergy status to other antibiotic agents; Z88.2 Allergy status to sulfonamides; Z88.8 Allergy status to other drugs, medicaments and biological substances; Z91.040 Latex allergy status; F17.210 Nicotine dependence, cigarettes, uncomplicated
CPT/HCPCS: 99282

== ENCOUNTER 2018-06-03 09:11 | Emergency (ER) | payer MEDICARE, MEDICAID ==
[2018-06-03] MEDS: PERCOCET 5MG/325MG TAB PO (09:50)
[2018-06-03 10:17] LABS: HEMATOCRIT 36.9 % (36.0-47.0); HEMOGLOBIN 12.3 g/dl (12.0-15.5); MEAN CORPUSCULAR HEMOGLOBIN 30.2 pg (27.0-33.0); MEAN CORPUSCULAR HGB CONC 33.3 g/dl (32.0-36.5); MEAN CORPUSCULAR VOLUME 90.7 fl (80.0-96.0); PLATELET COUNT, AUTOMATED 296 10^3/uL (150-450); RED BLOOD COUNT 4.07 10^6/uL (4.00-5.40); RED CELL DISTRIBUTION WIDTH 16.9 % (11.5-14.5); WHITE BLOOD COUNT 8.7 10^3/uL (4.0-10.0)
[2018-06-03 10:19] LABS: ADD MANUAL DIFFER YES; DIFF SLIDE NUMBER 158; POSITIVE MORPH POS FLAG
[2018-06-03 10:41] LABS: ATYPICAL LYMPH 3 % (0-5); EOSINOPHILS 1 % (0-5); LYMPHOCYTES 31 % (16-52); MONOCYTES 1 % (0-8); NEUTROPHILS 64 % (35-75); PLATELET ESTIMATE NORMAL (NORMAL)
[2018-06-03 10:42] LABS: ANISOCYTOSIS 1+
[2018-06-03 10:43] LABS: ERYTHROCYTE SEDIMENTATION RATE 12 mm/hr (0-20)
[2018-06-03 10:52] LABS: LACTIC ACID SEPSIS PROTOCOL 1.2 MMOL/L (0.4-2.0)
[2018-06-03 10:52] LABS: ANION GAP 8 MEQ/L (8-16); BLOOD UREA NITROGEN 10 MG/DL (7-18); CALCIUM LEVEL 8.3 MG/DL (8.5-10.1); CARBON DIOXIDE LEVEL 25 MEQ/L (21-32); CHLORIDE LEVEL 104 MEQ/L (98-107); CREATININE FOR GFR 0.78 MG/DL (0.55-1.30); GLOMERULAR FILTRATION RATE > 60.0 (>60); GLUCOSE, FASTING 79 MG/DL (70-100); POTASSIUM SERUM 4.2 MEQ/L (3.5-5.1); SODIUM LEVEL 137 MEQ/L (136-145)
== END 2018-06-03 11:14 | disposition home or self-care (01) ==
LOC: M ED 09:11
DX: L03.115 Cellulitis of right lower limb (principal); I10 Essential (primary) hypertension; G43.909 Migraine, unspecified, not intractable, without status migrainosus; M32.9 Systemic lupus erythematosus, unspecified; Z98.84 Bariatric surgery status; Z79.899 Other long term (current) drug therapy; Z88.1 Allergy status to other antibiotic agents; Z88.2 Allergy status to sulfonamides; Z88.8 Allergy status to other drugs, medicaments and biological substances; Z91.040 Latex allergy status; F17.210 Nicotine dependence, cigarettes, uncomplicated
CPT/HCPCS: 83605

== ENCOUNTER 2018-06-06 21:12 | Inpatient (IN) | payer MEDICARE, MEDICAID ==
[2018-06-06 21:55] LABS: HEMATOCRIT 36.3 % (36.0-47.0); HEMOGLOBIN 12.2 g/dl (12.0-15.5); MEAN CORPUSCULAR HGB CONC 33.6 g/dl (32.0-36.5); MEAN CORPUSCULAR VOLUME 89.4 fl (80.0-96.0); PLATELET COUNT, AUTOMATED 269 10^3/uL (150-450); RED BLOOD COUNT 4.06 10^6/uL (4.00-5.40); RED CELL DISTRIBUTION WIDTH 16.9 % (11.5-14.5); WHITE BLOOD COUNT 7.7 10^3/uL (4.0-10.0)
[2018-06-06 22:26] LABS: ACETAMINOPHEN LEVEL 11.5 UG/ML (10.0-30.0); ALBUMIN 3.4 GM/DL (3.2-5.2); ALBUMIN/GLOBULIN RATIO 1.21 (1.00-1.93); ALKALINE PHOSPHATASE 171 U/L (45-117); ALT/SGPT 18 U/L (12-78); ANION GAP 8 MEQ/L (8-16); AST/SGOT 9 U/L (7-37); BILIRUBIN,DIRECT < 0.1 MG/DL (0.0-0.2); BILIRUBIN,TOTAL 0.4 MG/DL (0.2-1.0); BLOOD UREA NITROGEN 17 MG/DL (7-18); CALCIUM LEVEL 8.1 MG/DL (8.5-10.1); CARBON DIOXIDE LEVEL 25 MEQ/L (21-32); CHLORIDE LEVEL 110 MEQ/L (98-107); CREATININE FOR GFR 0.84 MG/DL (0.55-1.30); ETHYL ALCOHOL (ETHANOL) < 0.003 % (0.000-0.010); GLOMERULAR FILTRATION RATE > 60.0 (>60); GLUCOSE, FASTING 85 MG/DL (70-100); POTASSIUM SERUM 4.3 MEQ/L (3.5-5.1); SALICYLATE LEVEL 6.2 MG/DL (5.0-30.0); SODIUM LEVEL 143 MEQ/L (136-145); TOTAL PROTEIN 6.2 GM/DL (6.4-8.2)
[2018-06-06 22:50] LABS: AMPHETAMINES LEVEL URINE NEGATIVE (NEGATIVE); BARBITURATES URINE POSITIVE (NEGATIVE); BENZODIAZEPINES URINE NEGATIVE (NEGATIVE); CANNABINOIDS URINE NEGATIVE (NEGATIVE); COCAINE METABOLITE URINE NEGATIVE (NEGATIVE); METHADONE URINE NEGATIVE (NEGATIVE); OPIATES URINE NEGATIVE (NEGATIVE); PHENCYCLIDINE URINE NEGATIVE (NEGATIVE)
[2018-06-07] MEDS ORDERED: MOM 30ML SUSPENSION UDC PO (01:45)
[2018-06-07] MEDS ORDERED: MAALOX 30 ML SUSP *UDC PO (01:45)
[2018-06-07] MEDS: ACETAMINOPHEN TAB 650MG DOSE (2X325MG) PO ×2 (08:41→18:05)
[2018-06-07] MEDS: GABAPENTIN 400 MG CAP PO ×3 (12:52→20:17)
[2018-06-07] MEDS: TOPIRAMATE (TopAMAX) 100 MG TAB PO ×2 (12:52→20:19)
[2018-06-07] MEDS: OXcarbazepine 300 MG TAB PO ×2 (12:52→20:17)
[2018-06-07] MEDS: DULoxetine 30 MG CAP (CYMBALTA) PO ×2 (12:53→20:17)
[2018-06-07] MEDS: NORTRIPTYLINE 10 MG CAP PO (20:17)
[2018-06-07] MEDS: zolPIDEM TARTRATE 5 MG TAB PO (20:17)
[2018-06-07] MEDS: OLANZapine 10 MG TAB PO (20:17)
[2018-06-07] MEDS: diphenhydrAMINE 50 MG CAP PO (21:50)
[2018-06-07] MEDS: NICOTINE 21MG/24HR 1 EA TRANSDERMAL TD (21:51)
[2018-06-08] MEDS: LORazepam 0.5 MG TAB PO ×4 (04:47→20:13)
[2018-06-08] MEDS: ACETAMINOPHEN TAB 650MG DOSE (2X325MG) PO (04:48)
[2018-06-08] MEDS: DULoxetine 30 MG CAP (CYMBALTA) PO ×2 (08:03→20:09)
[2018-06-08] MEDS: TOPIRAMATE (TopAMAX) 100 MG TAB PO ×2 (08:03→20:09)
[2018-06-08] MEDS: OXcarbazepine 300 MG TAB PO ×2 (08:03→20:08)
[2018-06-08] MEDS: GABAPENTIN 400 MG CAP PO ×3 (08:03→20:09)
[2018-06-08] MEDS ORDERED: ALBUTEROL 90 MCG/ACT 8GM HFA INHALER INH (09:30)
[2018-06-08] MEDS ORDERED: LEVALBUTEROL HFA 45MCG/ACT 15 GM INHALER INH (09:30)
[2018-06-08] MEDS: amLODIPine 10 MG TAB PO (10:43)
[2018-06-08] MEDS: PANTOPRAZOLE 40MG TAB (PROTONIX) PO ×2 (10:44→20:09)
[2018-06-08] MEDS: DOXYCYCLINE HYCLATE 100 MG TAB PO ×2 (10:44→20:09)
[2018-06-08] MEDS: MONTELUKAST 10 MG TAB PO (10:44)
[2018-06-08] MEDS: SYMBICORT 160/4.5MCG INHALER 6GM INH ×2 (10:44→20:12)
[2018-06-08] MEDS: PERCOCET 5MG/325MG TAB PO ×2 (11:36→18:09)
[2018-06-08] MEDS: TIOTROPIUM INHALER/CAPSULE (SPIRIVA) INH (12:10)
[2018-06-08] MEDS: diphenhydrAMINE 50 MG CAP PO (20:08)
[2018-06-08] MEDS: NORTRIPTYLINE 10 MG CAP PO (20:08)
[2018-06-08] MEDS: OLANZapine 10 MG TAB PO (20:08)
[2018-06-08] MEDS: zolPIDEM TARTRATE 5 MG TAB PO (20:09)
[2018-06-09] MEDS: traZODone 50 MG TAB PO (00:14)
[2018-06-09] MEDS: LORazepam 0.5 MG TAB PO ×3 (00:14→11:29)
[2018-06-09] MEDS: PERCOCET 5MG/325MG TAB PO ×2 (00:14→06:46)
[2018-06-09] MEDS: ACETAMINOPHEN TAB 650MG DOSE (2X325MG) PO (02:30)
[2018-06-09 08:15] LABS: HEMATOCRIT 37.3 % (36.0-47.0); HEMOGLOBIN 12.2 g/dl (12.0-15.5); MEAN CORPUSCULAR HEMOGLOBIN 29.8 pg (27.0-33.0); MEAN CORPUSCULAR HGB CONC 32.7 g/dl (32.0-36.5); MEAN CORPUSCULAR VOLUME 91.2 fl (80.0-96.0); PLATELET COUNT, AUTOMATED 234 10^3/uL (150-450); RED BLOOD COUNT 4.09 10^6/uL (4.00-5.40); RED CELL DISTRIBUTION WIDTH 16.3 % (11.5-14.5)
[2018-06-09] MEDS: SYMBICORT 160/4.5MCG INHALER 6GM INH (08:16)
[2018-06-09] MEDS: OXcarbazepine 300 MG TAB PO (08:16)
[2018-06-09] MEDS: DULoxetine 30 MG CAP (CYMBALTA) PO (08:16)
[2018-06-09] MEDS: PANTOPRAZOLE 40MG TAB (PROTONIX) PO (08:16)
[2018-06-09] MEDS: GABAPENTIN 400 MG CAP PO (08:16)
[2018-06-09] MEDS: MONTELUKAST 10 MG TAB PO (08:16)
[2018-06-09] MEDS: TOPIRAMATE (TopAMAX) 100 MG TAB PO (08:17)
[2018-06-09] MEDS: PILL CRUSHER/CUTTER 1 EACH XX (08:17)
[2018-06-09] MEDS: TIOTROPIUM INHALER/CAPSULE (SPIRIVA) INH (08:17)
[2018-06-09] MEDS: amLODIPine 10 MG TAB PO (08:17)
[2018-06-09] MEDS: DOXYCYCLINE HYCLATE 100 MG TAB PO (08:17)
[2018-06-09 08:42] LABS: ALBUMIN 3.3 GM/DL (3.2-5.2); ALBUMIN/GLOBULIN RATIO 1.22 (1.00-1.93); ALKALINE PHOSPHATASE 139 U/L (45-117); ALT/SGPT 19 U/L (12-78); ANION GAP 10 MEQ/L (8-16); AST/SGOT 14 U/L (7-37); BILIRUBIN,TOTAL 0.2 MG/DL (0.2-1.0); BLOOD UREA NITROGEN 15 MG/DL (7-18); C REACTIVE PROTEIN QUANTITATIV < 0.30 MG/DL (0.00-0.30); CALCIUM LEVEL 8.3 MG/DL (8.5-10.1); CARBON DIOXIDE LEVEL 22 MEQ/L (21-32); CHLORIDE LEVEL 105 MEQ/L (98-107); GLOMERULAR FILTRATION RATE > 60.0 (>60); GLUCOSE, FASTING 148 MG/DL (70-100); SODIUM LEVEL 137 MEQ/L (136-145)
[2018-06-13] MEDS ORDERED: METHOTREXATE 2.5 MG TAB (J8610 PER 2.5MG) PO (09:00)
== END 2018-06-09 13:02 | disposition home or self-care (01) | DRG 885 ==
LOC: M ED 21:12 → M ED INP 06-07 01:31 → M PSY 06-07 04:33
DX: F31.9 Bipolar disorder, unspecified (principal); F50.2 Bulimia nervosa; R45.851 Suicidal ideations; L03.115 Cellulitis of right lower limb; R41.83 Borderline intellectual functioning; M32.9 Systemic lupus erythematosus, unspecified; M35.00 Sjogren syndrome, unspecified; F17.200 Nicotine dependence, unspecified, uncomplicated; M06.9 Rheumatoid arthritis, unspecified; J45.909 Unspecified asthma, uncomplicated; G43.909 Migraine, unspecified, not intractable, without status migrainosus; M79.7 Fibromyalgia; K21.9 Gastro-esophageal reflux disease without esophagitis; I10 Essential (primary) hypertension; Z79.899 Other long term (current) drug therapy; Z98.84 Bariatric surgery status; Z90.710 Acquired absence of both cervix and uterus; Z91.040 Latex allergy status; Z88.1 Allergy status to other antibiotic agents; Z88.2 Allergy status to sulfonamides; Z88.8 Allergy status to other drugs, medicaments and biological substances

== ENCOUNTER 2018-06-10 00:06 | Emergency (ER) | payer MEDICARE, MEDICAID | END 2018-06-10 02:00 | disposition home or self-care (01) | LOC: M ED 00:06 | DX: F41.9 Anxiety disorder, unspecified (principal); Z76.5 Malingerer [conscious simulation]; F31.9 Bipolar disorder, unspecified; R41.83 Borderline intellectual functioning; I10 Essential (primary) hypertension; K21.9 Gastro-esophageal reflux disease without esophagitis; M06.9 Rheumatoid arthritis, unspecified; M32.9 Systemic lupus erythematosus, unspecified; M35.00 Sjogren syndrome, unspecified; J45.909 Unspecified asthma, uncomplicated; F17.200 Nicotine dependence, unspecified, uncomplicated; Z86.14 Personal history of Methicillin resistant Staphylococcus aureus infection; Z88.1 Allergy status to other antibiotic agents; Z88.2 Allergy status to sulfonamides; Z88.8 Allergy status to other drugs, medicaments and biological substances; Z91.040 Latex allergy status; Z79.899 Other long term (current) drug therapy; Z79.51 Long term (current) use of inhaled steroids; Z79.1 Long term (current) use of non-steroidal anti-inflammatories (NSAID); Z98.84 Bariatric surgery status | CPT/HCPCS: 99284 ==

== ENCOUNTER 2018-07-28 15:35 | Emergency (ER) | payer MEDICARE, MEDICAID ==
[2018-07-28] MEDS: GI COCKTAIL 50ML BTL(HYOSCYAMINE/MAALOX/LIDOCAINE VISCOUS)(1:3:1) PO (17:02)
[2018-07-28] MEDS: GASTROGRAFIN SOLUTION 30ML (Q9963) PO ×4 (17:15→17:45)
[2018-07-28 17:21] LABS: BASO # 0.1 10^3/uL (0.0-0.2); BASO % 0.7 % (0.0-1.0); EOS # 0.3 10^3/uL (0.0-0.50); EOS % 3.3 % (0.0-3.0); HEMATOCRIT 33.7 % (36.0-47.0); HEMOGLOBIN 11.7 g/dl (12.0-15.5); IMMATURE GRANULOCYTE % 0.2 % (0-3.0); LYMPH # 2.7 10^3/uL (1.5-4.5); LYMPH % 33.2 % (24.0-44.0); MEAN CORPUSCULAR HEMOGLOBIN 29.8 pg (27.0-33.0); MEAN CORPUSCULAR HGB CONC 34.7 g/dl (32.0-36.5); MONO # 0.7 10^3/uL (0.0-0.8); MONO % 8.4 % (0.0-5.0); NEUTROPHILS # 4.4 10^3/uL (1.8-7.7); NEUTROPHILS % 54.2 % (36.0-66.0); PLATELET COUNT, AUTOMATED 292 10^3/uL (150-450); RED BLOOD COUNT 3.92 10^6/uL (4.00-5.40); RED CELL DISTRIBUTION WIDTH 14.6 % (11.5-14.5); WHITE BLOOD COUNT 8.1 10^3/uL (4.0-10.0)
[2018-07-28 17:30] LABS: ALBUMIN 3.6 GM/DL (3.2-5.2); ALBUMIN/GLOBULIN RATIO 1.38 (1.00-1.93); ALKALINE PHOSPHATASE 93 U/L (45-117); ALT/SGPT 21 U/L (12-78); ANION GAP 5 MEQ/L (8-16); AST/SGOT 18 U/L (7-37); BILIRUBIN,DIRECT < 0.1 MG/DL (0.0-0.2); BILIRUBIN,TOTAL 0.2 MG/DL (0.2-1.0); BLOOD UREA NITROGEN 7 MG/DL (7-18); CALCIUM LEVEL 8.3 MG/DL (8.5-10.1); CARBON DIOXIDE LEVEL 25 MEQ/L (21-32); CHLORIDE LEVEL 99 MEQ/L (98-107); CPK CREATINE PHOSPHOKINASE 135 U/L (26-192); CREATININE FOR GFR 0.68 MG/DL (0.55-1.30); FREE T4 0.62 NG/DL (0.76-1.46); GLOMERULAR FILTRATION RATE > 60.0 (>58); GLUCOSE, FASTING 76 MG/DL (70-100); LIPASE 175 U/L (73-393); MB/CK RELATIVE INDEX 1.48 (< OR =4); SODIUM LEVEL 129 MEQ/L (136-145); THYROID STIMULATING HORMONE 0.758 uIU/ML (0.358-3.740); TOTAL PROTEIN 6.2 GM/DL (6.4-8.2); TROPONIN I < 0.02 NG/ML (< 0.10)
[2018-07-28 17:35] LABS: INR 0.94; PARTIAL THROMBOPLASTIN TIME 29.1 SECONDS (25.4-37.6); PROTHROMBIN TIME 12.7 SECONDS (12.1-14.4)
[2018-07-28] MEDS ORDERED: ISOVUE-370 76% 100ML VIAL (Q9967) As Ordered (18:21)
[2018-07-28 21:39] LABS: CPK CREATINE PHOSPHOKINASE 125 U/L (26-192); MB/CK RELATIVE INDEX 1.68 (< OR =4); TROPONIN I < 0.02 NG/ML (< 0.10)
== END 2018-07-28 22:52 | disposition home or self-care (01) ==
LOC: M ED 15:35
DX: R10.13 Epigastric pain (principal); I10 Essential (primary) hypertension; K21.9 Gastro-esophageal reflux disease without esophagitis; E28.2 Polycystic ovarian syndrome; M06.9 Rheumatoid arthritis, unspecified; M32.9 Systemic lupus erythematosus, unspecified; M79.7 Fibromyalgia; F31.9 Bipolar disorder, unspecified; F60.3 Borderline personality disorder; K58.9 Irritable bowel syndrome, unspecified; G43.909 Migraine, unspecified, not intractable, without status migrainosus; J45.909 Unspecified asthma, uncomplicated; F79 Unspecified intellectual disabilities; M35.00 Sjogren syndrome, unspecified; Z98.84 Bariatric surgery status; Z72.0 Tobacco use; Z79.899 Other long term (current) drug therapy; Z88.1 Allergy status to other antibiotic agents; Z88.2 Allergy status to sulfonamides; Z88.8 Allergy status to other drugs, medicaments and biological substances; Z91.040 Latex allergy status
CPT/HCPCS: Q9963

== ENCOUNTER 2018-08-03 13:49 | Emergency (ER) | payer MEDICARE, MEDICAID ==
[2018-08-03] MEDS: ONDANSETRON 4MG/2ML VIAL (J2405) IV (16:00)
[2018-08-03] MEDS: GASTROGRAFIN SOLUTION 30ML PO ×2 (16:25→16:44)
[2018-08-03] MEDS: NS 1,000 ML IV (16:43)
[2018-08-03 17:21] LABS: BASO # 0.1 10^3/uL (0.0-0.2); BASO % 1.1 % (0.0-1.0); EOS # 0.2 10^3/uL (0.0-0.50); EOS % 3.7 % (0.0-3.0); HEMOGLOBIN 12.4 g/dl (12.0-15.5); IMMATURE GRANULOCYTE % 0.3 % (0-3.0); LYMPH # 2.7 10^3/uL (1.5-4.5); LYMPH % 40.8 % (24.0-44.0); MEAN CORPUSCULAR HEMOGLOBIN 29.5 pg (27.0-33.0); MEAN CORPUSCULAR HGB CONC 33.5 g/dl (32.0-36.5); MEAN CORPUSCULAR VOLUME 87.9 fl (80.0-96.0); MONO # 0.5 10^3/uL (0.0-0.8); MONO % 7.7 % (0.0-5.0); NEUTROPHILS % 46.4 % (36.0-66.0); PLATELET COUNT, AUTOMATED 259 10^3/uL (150-450); RED BLOOD COUNT 4.21 10^6/uL (4.00-5.40); WHITE BLOOD COUNT 6.5 10^3/uL (4.0-10.0)
[2018-08-03 17:46] LABS: LACTIC ACID SEPSIS PROTOCOL 1.1 MMOL/L (0.4-2.0)
[2018-08-03 17:51] LABS: ALBUMIN 3.9 GM/DL (3.2-5.2); ALKALINE PHOSPHATASE 91 U/L (45-117); ALT/SGPT 20 U/L (12-78); AMYLASE 39 U/L (25-115); ANION GAP 10 MEQ/L (8-16); AST/SGOT 12 U/L (7-37); BILIRUBIN,DIRECT < 0.1 MG/DL (0.0-0.2); BILIRUBIN,TOTAL 0.2 MG/DL (0.2-1.0); BLOOD UREA NITROGEN 13 MG/DL (7-18); CALCIUM LEVEL 8.4 MG/DL (8.5-10.1); CARBON DIOXIDE LEVEL 22 MEQ/L (21-32); CHLORIDE LEVEL 108 MEQ/L (98-107); CPK CREATINE PHOSPHOKINASE 101 U/L (26-192); CREATININE FOR GFR 0.68 MG/DL (0.55-1.30); GLOMERULAR FILTRATION RATE > 60.0 (>58); GLUCOSE, FASTING 80 MG/DL (70-100); LIPASE 130 U/L (73-393); MB/CK RELATIVE INDEX 1.68 (< OR =4); POTASSIUM SERUM 4.4 MEQ/L (3.5-5.1); SODIUM LEVEL 140 MEQ/L (136-145); TOTAL PROTEIN 6.2 GM/DL (6.4-8.2); TROPONIN I < 0.02 NG/ML (< 0.10)
[2018-08-03] MEDS ORDERED: ISOVUE-370 76% 100ML VIAL (Q9967) As Ordered (18:15)
[2018-08-03 18:46] LABS: KETONE, URINE AUTO RFX NEGATIVE (NEGATIVE); MUCUS, URINE RFX SMALL (NEGATIVE); NITRITE, URINE AUTO RFX NEGATIVE (NEGATIVE); RBC, URINE AUTO RFX 1 /HPF (0-3); SPECIFIC GRAVITY UR AUTO RFX 1.015 (1.002-1.035); SQUAM EPITHELIAL CELL UR AURFX 1 /HPF (0-6); WBC, URINE AUTO RFX 3 /HPF (0-3)
[2018-08-03 18:49] LABS: LEUKOCYTE ESTERASE UR AUTO RFX TRACE (NEGATIVE)
== END 2018-08-03 19:24 | disposition home or self-care (01) ==
LOC: M ED 13:49
DX: R10.10 Upper abdominal pain, unspecified (principal); J44.9 Chronic obstructive pulmonary disease, unspecified; F17.200 Nicotine dependence, unspecified, uncomplicated
CPT/HCPCS: Q9963

== ENCOUNTER 2018-08-11 21:28 | Emergency (ER) | payer MEDICARE, MEDICAID ==
[2018-08-11] MEDS: guaiFENesin/CODEINE SYRUP 5 ML UDC PO (23:44)
== END 2018-08-11 23:53 | disposition home or self-care (01) ==
LOC: M ED 21:28
DX: J06.9 Acute upper respiratory infection, unspecified (principal); J44.9 Chronic obstructive pulmonary disease, unspecified; I10 Essential (primary) hypertension; R51 Headache; F17.210 Nicotine dependence, cigarettes, uncomplicated; Z98.84 Bariatric surgery status; Z88.8 Allergy status to other drugs, medicaments and biological substances; Z88.1 Allergy status to other antibiotic agents; Z91.040 Latex allergy status; Z88.2 Allergy status to sulfonamides; Z79.899 Other long term (current) drug therapy; Z79.51 Long term (current) use of inhaled steroids; Z79.1 Long term (current) use of non-steroidal anti-inflammatories (NSAID)
CPT/HCPCS: 99283

== ENCOUNTER → 2018-09-24 | Outpatient (CLI) | payer MEDICARE, MEDICAID ==
[2018-09-24 10:03] LABS: ALBUMIN 3.8 GM/DL (3.2-5.2); ALBUMIN/GLOBULIN RATIO 1.65 (1.00-1.93); ALKALINE PHOSPHATASE 97 U/L (45-117); ALT/SGPT 18 U/L (12-78); ANION GAP 7 MEQ/L (8-16); AST/SGOT 13 U/L (7-37); BILIRUBIN,DIRECT < 0.1 MG/DL (0.0-0.2); BILIRUBIN,TOTAL 0.3 MG/DL (0.2-1.0); CARBON DIOXIDE LEVEL 25 MEQ/L (21-32); CHLORIDE LEVEL 93 MEQ/L (98-107); POTASSIUM SERUM 4.6 MEQ/L (3.5-5.1); SODIUM LEVEL 125 MEQ/L (136-145); TOTAL PROTEIN 6.1 GM/DL (6.4-8.2)
[2018-09-27 00:06] LABS: OXCARBAZEPINE 4 ug/mL (10-35)
== END ==
LOC: M LAB 08:12
DX: F31.9 Bipolar disorder, unspecified (principal)
CPT/HCPCS: 80076

== ENCOUNTER → 2018-09-24 | Outpatient (CLI) | payer MEDICARE, MEDICAID ==
[~2018-09-24] MED LIST changes: -/BACL20TA PO; -/CARB20TAB PO; -/PANT40TA; -/PANT40TA PO; -ACET500C PO; -AMBI12.52 PO; -B COTAB3 PO; -B-12100T2 PO; -B-2100TA PO; -BACL1TAB9 PO; -BUSP10TA78 PO; -BUSP30TA PO; -BUTA50TA PO; -CALCTAB20 PO; -CLON0.5T; -CLON0.5T PO; -COMP1TAB PO; -CYCL10TA PO; -CYMB60CA3 PO; -DEPA500T2 PO; -DICL50TA2 PO; -DIVA250T PO; -DIVA250T7 PO; -DIVA500T9 PO; -DULO1CAP3 PO; +E-Z-GAS II EFFERVESCENT PACKET (SODIUM BICARB./CITRIC ACID/SIMETHICONE) As Ordered; +E-Z-HD 98% w/w 340GM SUSP BTL As Ordered; +E-Z-PAQUE 96% w/w SUSP 176GM BTL As Ordered; -FE T325T PO; -FENT25PA TD; -FENT50PA TD; -FLEXERIL; -FOLI1TAB4 PO; -FOLI1TAB86 PO; -FOLI5CAP; -GABA-283 PO; -GABA400C PO; -HYDR-3363 PO; -HYDR-3719 PO; -HYDR200T3 PO; -HYDRO50TAB GT; -HYDROXYZINE PO; -HYSI1TAB4 PO; -IMIT100T PO; -IRON65TA PO; -KETO10TAB PO; -LEVOTAB10 PO; -LIDO5DIS; -LORA0.5T11 PO; -MAGN500T14 PO; -MAXA5TAB10 PO; -METH2.5T; -METH2.5T PO; -METH2.5TA PO; -METH75TA PO; -MIGR4SPR; -MISO100T22 PO; -MONT10TA2 PO; -MULT1TAB18 PO; -MULTTAB63 PO; -NAPR250T4 PO; -NAPR500T3 PO; -NORCOBULK PO; -NUCY50TA14 PO; -OLAN2.5T PO; -ONDA8TAB7 PO; -ONDA8TAB8 PO; -OXYC-208 PO; -OXYC10TA12; -OXYC15TA50; -OXYC30TA4 PO; -PANT40TA2 PO; -PILO5TAB PO; -PILO5TAB3 PO; -PLAQ200T PO; -PRED10TA2 PO; -PROAAER10 INH; -PROC25SU24 PR; -PROM12.55 PO; -PROM25TA PO; -QUET300T49 PO; -QUET30XR PO; -QUET50TA PO; -RANI300T PO; -RIZA10TA2 PO; -ROBA750T4 PO; -SALA1TAB PO; -SERO400T3 PO; -SERT-138 PO; -SING10TA31; -SING5CHW PO; -SUCR1SS PO; -SUMA100T2 PO; -SUMA5INJ SC; -SUMA6INJ16 SC; -SUMA6KIT SC; -SYMB16INH INH; -SYMB80AE; -TEMA30CA PO; -THIA50CA PO; -TIZA6CAP3 PO; -TOPA100T PO; -TOPA200T PO; -TOPI200T7 PO; -TOPI50TA9 PO; -ULTR50TA PO; -VALS40TA; -VARE05TA PO; -VENTAER; -VITA100T PO; -VITA100T98 PO; -VITA80003 PO; -VITAD1000T PO; -VITMTA PO; -XOPE1.252; -XOPEAER IN; -ZANT300T PO; -ZOFR20TA PO; -ZOFR8TAB PO; -ZOLO100T PO; -ZOLP12.515 PO; -[UNRECOGNIZED DRUG - CODE] PO; -compazine PO; -flexeril PO; -phenergan PO
== END ==
LOC: M RAD 08:15
DX: R10.13 Epigastric pain (principal); Z98.84 Bariatric surgery status; Z53.20 Procedure and treatment not carried out because of patient's decision for unspecified reasons
CPT/HCPCS: 74245

== ENCOUNTER 2018-10-15 08:40 | Day surgery (SDC) | payer MEDICARE, MEDICAID ==
[2018-10-15] MEDS: NS 1,000 ML IV (09:46)
[2018-10-15] MEDS ORDERED: PROPOFOL 200 MG/20 ML VIAL As Ordered ×2 (09:58→12:14)
[2018-10-15] MEDS ORDERED: LIDOCAINE 2% INJ 100 MG/5 ML SDV (FOR ANES.) As Ordered (09:59)
[2018-10-15] MEDS: ALBUTEROL SULFATE 2.5 MG/0.5 ML INH NEB SOLN INH (10:49)
[2018-10-15] MEDS ORDERED: fentaNYL 100 MCG/2 ML INJECTION (J3010) As Ordered (10:55)
[2018-10-15] MEDS ORDERED: MIDAZOLAM INJ 2 MG/2 ML VIAL (J2250) As Ordered (12:00)
== END 2018-10-15 13:08 | disposition home or self-care (01) ==
LOC: M OPP 08:40
DX: K22.8 Other specified diseases of esophagus (principal); K29.70 Gastritis, unspecified, without bleeding; K95.89 Other complications of other bariatric procedure; K31.6 Fistula of stomach and duodenum; J45.909 Unspecified asthma, uncomplicated; J44.9 Chronic obstructive pulmonary disease, unspecified; Z98.0 Intestinal bypass and anastomosis status; I10 Essential (primary) hypertension; M19.90 Unspecified osteoarthritis, unspecified site; M06.00 Rheumatoid arthritis without rheumatoid factor, unspecified site; M79.7 Fibromyalgia; M32.9 Systemic lupus erythematosus, unspecified; M35.00 Sjogren syndrome, unspecified; G93.41 Metabolic encephalopathy; D64.9 Anemia, unspecified; E55.9 Vitamin D deficiency, unspecified; F50.2 Bulimia nervosa; F20.9 Schizophrenia, unspecified; G47.00 Insomnia, unspecified; R25.1 Tremor, unspecified; F41.9 Anxiety disorder, unspecified; F31.9 Bipolar disorder, unspecified; F17.210 Nicotine dependence, cigarettes, uncomplicated; Z98.890 Other specified postprocedural states; Z79.899 Other long term (current) drug therapy; Z88.8 Allergy status to other drugs, medicaments and biological substances; Z88.1 Allergy status to other antibiotic agents; Z91.040 Latex allergy status; Z88.2 Allergy status to sulfonamides
CPT/HCPCS: 43239

== ENCOUNTER → 2018-10-22 | Outpatient (CLI) | payer MEDICARE, MEDICAID ==
[~2018-10-22] MED LIST changes: -E-Z-GAS II EFFERVESCENT PACKET (SODIUM BICARB./CITRIC ACID/SIMETHICONE) As Ordered; -E-Z-HD 98% w/w 340GM SUSP BTL As Ordered; -E-Z-PAQUE 96% w/w SUSP 176GM BTL As Ordered; +GLUCAGON FOR INJ 1 MG VIAL (J1610) As Ordered; +ISOVUE-370 76% 100ML VIAL (Q9967) As Ordered; +VoLumen 0.1% SUSPENSION 450ML BOTTLE As Ordered
== END ==
LOC: M RAD 13:33
DX: K56.1 Intussusception (principal); R11.2 Nausea with vomiting, unspecified; R10.13 Epigastric pain

== ENCOUNTER → 2018-10-28 | Outpatient (CLI) | payer MEDICARE, MEDICAID ==
[~2018-10-28] MED LIST changes: +GASTROGRAFIN SOLUTION 30ML (Q9963) As Ordered; -GLUCAGON FOR INJ 1 MG VIAL (J1610) As Ordered; -VoLumen 0.1% SUSPENSION 450ML BOTTLE As Ordered
== END ==
LOC: M RAD 13:11
DX: R10.9 Unspecified abdominal pain (principal); Z98.84 Bariatric surgery status
CPT/HCPCS: Q9963

== ENCOUNTER → 2019-01-10 | Outpatient (CLI) | payer MEDICARE, MEDICAID ==
[~2019-01-10] MED LIST changes: +/BACL20TA PO; +/CARB20TAB PO; +/PANT40TA; +/PANT40TA PO; +ABIL400I IM; +ACET500C PO; +ACET500T15 PO; +AMBI12.52 PO; +AMBI5TAB PO; +AMIT100TA PO; +AMLO10TA5 PO; +AMLO5TAB6; +ARIP5TA PO; +ATIV1TAB7; +ATIV1TAB7 PO; +B COTAB3 PO; +B-12100T2 PO; +B-2100TA PO; +BACL1TAB9 PO; +BUSP10TA78 PO; +BUSP30TA PO; +BUTA-198 PO; +BUTA1TAB48 PO; +BUTA50TA PO; +CALCTAB20 PO; +CHERSYP3 PO; +CLON0.5T; +CLON0.5T PO; +CLON0.5T8 PO; +COMP1TAB PO; +CYCL10TA PO; +CYCL5TAB PO; +CYMB60CA3 PO; +CYTO100T PO; +DEPA500T2 PO; +DICL50TA2 PO; +DIPH50CA PO; +DIVA250T PO; +DIVA250T7 PO; +DIVA500T9 PO; +DOXE25CA PO; +DOXY100C37 PO; +DULO1CAP3 PO; +DULO30CA PO; +FE T325T PO; +FENT25PA TD; +FENT50PA TD; +FLEXERIL; +FOLI1TAB11 PO; +FOLI1TAB86 PO; +FOLI5CAP; +GABA-843 PO; +GABA-845 PO; +GABA400C PO; -GASTROGRAFIN SOLUTION 30ML (Q9963) As Ordered; +HYDR-3363 PO; +HYDR-3713 PO; +HYDR-3719 PO; +HYDR1CRE TOP; +HYDR200T3; +HYDR200T3 PO; +HYDRO50TAB GT; +HYDROXYZINE PO; +HYSI1TAB4 PO; +IMIT100T PO; +IRON65TA PO; -ISOVUE-370 76% 100ML VIAL (Q9967) As Ordered; +KEFL500C17 PO; +KETO10TAB PO; +LEVAINH INH; +LEVOTAB10 PO; +LIDO5DIS; +LOPR1TAB6 PO; +LORA0.5T11 PO; +LORA1TAB12; +MAGN500T14 PO; +MAXA5TAB10 PO; +MEGE1SUS8 PO; +MELA5TAB20 PO; +METH2.5T; +METH2.5T PO; +METH2.5T48 PO; +METH75TA PO; +METO5TAB2 PO; +MIGR4SPR; +MILK120011 PO; +MISO100T22 PO; +MISO200T56; +MONT10TA2 PO; +MUCI600T37 PO; +MULT1TAB18 PO; +MULTTAB63 PO; +NAPR-885; +NAPR-885 PO; +NAPR250T4 PO; +NICO14PA TD; +NIFE30TA7 PO; +NORC1TAB4 PO; +NORCOBULK PO; +NORCOTAB PO; +NORT10CA2 PO; +NUCY50TA14 PO; +OCEA0.654; +OLAN10TA2 PO; +OLAN2.5T PO; +OLAN20TA14 PO; +OLAN7.5T PO; +ONDA4TAB6 PO; +ONDA8TAB7 PO; +ONDA8TAB8 PO; +OXCA150T21 PO; +OXCA300T14 PO; +OXYC-208 PO; +OXYC10TA12; +OXYC15TA50; +OXYC1TAB23 PO; +OXYC30TA4 PO; +OXYCO5TA PO; +PANT40TA3 PO; +PATIENT COMMENTS; +PEG1POW PO; +PERC5TAB12 PO; +PILO5TAB PO; +PILO5TAB3 PO; +PLAQ200T PO; +POLY33503; +PRED10TA2 PO; +PRED20TA PO; +PROAAER10 INH; +PROC10TA4 PO; +PROC25SU24 PR; +PROM12.56 PO; +PROM25TA12 PO; +QUET300T53 PO; +QUET50TA48 PO; +RANI300T PO; +RIZA10TA2 PO; +ROBA750T4 PO; +SALA1TAB PO; +SENN8.6C PO; +SERO200T43 PO; +SERO300T20 PO; +SERO400T3 PO; +SERT-138 PO; +SING10TA31; +SING5CHW PO; +SUCR1SS PO; +SUMA100T2 PO; +SUMA5INJ SC; +SUMA6INJ16 SC; +SUMA6KIT SC; +SYMB16INH INH; +SYMB80AE; +TEMA30CA PO; +THIA50CA PO; +TIOT18INH INH; +TIZA6CAP PO; +TOPA100T PO; +TOPA1TAB PO; +TOPA200T PO; +TOPI100T9; +TOPI100T9 PO; +TOPI200T7 PO; +TOPI50TA9 PO; +TRAZO50TA PO; +TRIL150T PO; +ULTR50TA PO; +VALS40TA; +VARE05TA PO; +VENTAER; +VENTAER INH; +VITA100T98 PO; +VITA1TAB22 PO; +VITA80003 PO; +VITAD1000T PO; +VITMTA PO; +XOPE1.252; +XOPEAER IN; +ZANT300T9 PO; +ZOFR4TAB14 PO; +ZOFR4TAB16 PO; +ZOFR8TAB PO; +ZOLO100T PO; +ZOLP12.515 PO; +ZYRT10CA5 PO; +[UNRECOGNIZED DRUG - CODE] PO; +compazine PO; +flexeril PO; +phenergan PO
== END ==
LOC: M SLEEP 19:45
PROVIDERS: ATTEND Internal Medicine Pulmonary Disease
DX: G47.30 Sleep apnea, unspecified (principal)

== ENCOUNTER 2019-01-16 17:01 | Emergency (ER) | payer MEDICARE, MEDICAID ==
[~2019-01-16] VITALS: Ht 167.6 cm; Wt 91.8 kg
[~2019-01-16 17:01] MED LIST changes: -HYDR200T3; -LORA1TAB12; +LORA1TAB12 PO
[2019-01-16 17:02] VITALS: BP 152/80
[2019-01-16] MEDS ORDERED: TRAM50TA2 PO (17:12)
[2019-01-16] MEDS ORDERED: SUCR1TAB56 PO (17:12)
[2019-01-16] MEDS ORDERED: NS 1,000 ML IV ONE (17:45)
[2019-01-16] MEDS ORDERED: METOCLOPRAMIDE INJ 10MG/2ML VIAL (J2765) IV ONE (17:45)
[2019-01-16] MEDS ORDERED: PANTOPRAZOLE 40MG INJ (PROTONIX) (C9113) IV ONE (17:45)
--- NOTE | 2019-01-16 18:10 | REP ---
Clinical: Epigastric and abdominal pain. Technique: Upright view of the chest with supine and upright views of the abdomen and pelvis. Findings: Frontal upright view of the chest demonstrates no acute cardiopulmonary process or free air below the diaphragm to suspect pneumoperitoneum. Supine and upright views of the abdomen and pelvis demonstrate nonspecific bowel gas pattern without obstruction or perforation. No organomegaly. No abnormal calcifications. Skeletal structures normal for age. Contrast identified consistent with the given history of prior upper GI examination. Impression: Nonspecific bowel gas pattern. Electronically Signed by Jony Ley MD 01/16/2019 06:01 P
[2019-01-16 18:22] LABS: BASO # 0.1 10^3/uL (0.0-0.2); BASO % 0.8 % (0.0-1.0); EOS # 0.2 10^3/uL (0.0-0.50); EOS % 2.2 % (0.0-3.0); HEMATOCRIT 33.8 % (36.0-47.0); HEMOGLOBIN 11.2 g/dl (12.0-15.5); LYMPH # 2.9 10^3/uL (1.5-4.5); LYMPH % 32.5 % (24.0-44.0); MEAN CORPUSCULAR HEMOGLOBIN 30.3 pg (27.0-33.0); MEAN CORPUSCULAR HGB CONC 33.1 g/dl (32.0-36.5); MEAN CORPUSCULAR VOLUME 91.4 fl (80.0-96.0); MONO # 0.5 10^3/uL (0.0-0.8); MONO % 5.1 % (0.0-5.0); NEUTROPHILS # 5.4 10^3/uL (1.8-7.7); NEUTROPHILS % 59.1 % (36.0-66.0); PLATELET COUNT, AUTOMATED 257 10^3/uL (150-450); WHITE BLOOD COUNT 9.1 10^3/uL (4.0-10.0)
[2019-01-16] MEDS ORDERED: SIMETHICONE 80 MG CHEW TAB PO ONE (18:45)
[2019-01-16 18:57] LABS: ALBUMIN 3.2 GM/DL (3.2-5.2); ALT/SGPT 18 U/L (12-78); AMYLASE 38 U/L (25-115); BILIRUBIN,DIRECT < 0.1 MG/DL (0.0-0.2); BILIRUBIN,TOTAL 0.2 MG/DL (0.2-1.0); BLOOD UREA NITROGEN 9 MG/DL (7-18); CALCIUM LEVEL 8.1 MG/DL (8.5-10.1); CARBON DIOXIDE LEVEL 23 MEQ/L (21-32); CHLORIDE LEVEL 109 MEQ/L (98-107); CREATININE FOR GFR 1.03 MG/DL (0.55-1.30); GLOMERULAR FILTRATION RATE > 60.0 (>58); GLUCOSE, FASTING 82 MG/DL (70-100); LIPASE 139 U/L (73-393); POTASSIUM SERUM 3.6 MEQ/L (3.5-5.1); SODIUM LEVEL 141 MEQ/L (136-145); TOTAL PROTEIN 5.7 GM/DL (6.4-8.2)
[2019-01-16] MEDS ORDERED: ACETAMINOPHEN 325 MG TAB PO ONE (19:00)
[2019-01-16] MEDS ORDERED: GI COCKTAIL 50ML BTL(HYOSCYAMINE/MAALOX/LIDOCAINE VISCOUS)(1:3:1) PO ONE (20:00)
--- NOTE | 2019-01-16 20:03 | REP ---
Clinical: Lower back pain. Technique: AP, lateral, bilateral oblique and coned-down views of the lumbosacral spine. Findings: Alignment and lordosis maintained. Age-related changes are appreciated. No acute fracture / compression injury or subluxation. Impression: Age-related changes are suggested. No obvious acute fracture or subluxation. Electronically Signed by Jony Ley MD 01/16/2019 07:55 P
== END 2019-01-16 20:03 | disposition home or self-care (01) ==
LOC: M ED 17:01
DX: G89.29 Other chronic pain (principal); R10.9 Unspecified abdominal pain; K31.6 Fistula of stomach and duodenum; K27.9 Peptic ulcer, site unspecified, unspecified as acute or chronic, without hemorrhage or perforation; Z79.899 Other long term (current) drug therapy; Z88.1 Allergy status to other antibiotic agents; Z88.2 Allergy status to sulfonamides; Z88.8 Allergy status to other drugs, medicaments and biological substances; Z91.040 Latex allergy status

== ENCOUNTER 2019-02-15 12:48 | Emergency (ER) | payer MEDICARE, MEDICAID ==
[~2019-02-15] VITALS: Ht 165.1 cm; Wt 90.9 kg
[~2019-02-15 12:48] MED LIST changes: -/BACL20TA PO; -/CARB20TAB PO; -/PANT40TA; -/PANT40TA PO; +ARIP1TAB6 PO; -ARIP5TA PO; +CARB1TAB20 PO; -DULO30CA PO; +DULO30CA9 PO; +FENT25DI33 TD; -FENT25PA TD; +FENT50DI33 TD; -FENT50PA TD; +HYDR-3715 PO; -NORC1TAB4 PO; +NORC1TAB7 PO; -NORCOTAB PO; -NUCY50TA14 PO; -OLAN2.5T PO; +OLAN2.5T25 PO; +ONDA-227 PO; +PROT1TAB2; +PROT1TAB2 PO; +SERO300T PO; -SERO300T20 PO; +SUCR1TAB56 PO; +TAPE50TA3 PO; +TRAM50TA2 PO; -ZOFR8TAB PO
[2019-02-15] MEDS ORDERED: NS 1,000 ML IV ONE (13:30)
[2019-02-15] MEDS ORDERED: diphenhydrAMINE INJ 50MG/ML VIAL (J1200) IV ONE (13:30)
[2019-02-15] MEDS ORDERED: ONDANSETRON 4MG/2ML VIAL (J2405) IV ONE (13:30)
[2019-02-15 14:01] LABS: BASO % 0.7 % (0.0-1.0); EOS # 0.1 10^3/uL (0.0-0.50); EOS % 1.6 % (0.0-3.0); HEMATOCRIT 42.7 % (36.0-47.0); HEMOGLOBIN 13.9 g/dl (12.0-15.5); LYMPH # 2.2 10^3/uL (1.5-4.5); LYMPH % 37.8 % (24.0-44.0); MEAN CORPUSCULAR HEMOGLOBIN 30.5 pg (27.0-33.0); MEAN CORPUSCULAR HGB CONC 32.6 g/dl (32.0-36.5); MEAN CORPUSCULAR VOLUME 93.8 fl (80.0-96.0); MONO # 0.4 10^3/uL (0.0-0.8); MONO % 6.1 % (0.0-5.0); NEUTROPHILS # 3.1 10^3/uL (1.8-7.7); NEUTROPHILS % 53.6 % (36.0-66.0); PLATELET COUNT, AUTOMATED 248 10^3/uL (150-450); RED BLOOD COUNT 4.55 10^6/uL (4.00-5.40); WHITE BLOOD COUNT 5.8 10^3/uL (4.0-10.0)
[2019-02-15] MEDS ORDERED: KETOROLAC 30 MG/ML VIAL (J1885) IV ONE (14:15)
[2019-02-15 14:31] LABS: ALBUMIN 3.6 GM/DL (3.2-5.2); ALT/SGPT 17 U/L (12-78); AMYLASE 35 U/L (25-115); BILIRUBIN,TOTAL 0.2 MG/DL (0.2-1.0); BLOOD UREA NITROGEN 7 MG/DL (7-18); CALCIUM LEVEL 8.6 MG/DL (8.5-10.1); CARBON DIOXIDE LEVEL 23 MEQ/L (21-32); CHLORIDE LEVEL 110 MEQ/L (98-107); CREATININE FOR GFR 0.99 MG/DL (0.55-1.30); GLOMERULAR FILTRATION RATE > 60.0 (>58); GLUCOSE, FASTING 91 MG/DL (70-100); LIPASE 150 U/L (73-393); POTASSIUM SERUM 3.9 MEQ/L (3.5-5.1); SODIUM LEVEL 140 MEQ/L (136-145); TOTAL PROTEIN 6.5 GM/DL (6.4-8.2)
[2019-02-15] MEDS ORDERED: METOCLOPRAMIDE INJ 10MG/2ML VIAL (J2765) IV ONE (15:00)
[2019-02-15] MEDS ORDERED: PERCOCET 5MG/325MG TAB PO ONE (16:30)
[2019-02-15] MEDS ORDERED: PERC5TAB12 PO (16:30)
[2019-02-15] MEDS ORDERED: METOCLOPRAMIDE 10 MG TAB PO ONE (16:30)
[2019-02-15 16:39] VITALS: BP 142/83
== END 2019-02-15 16:51 | disposition home or self-care (01) ==
LOC: M ED 12:48
DX: R11.2 Nausea with vomiting, unspecified (principal); R19.7 Diarrhea, unspecified; R51 Headache; Z87.891 Personal history of nicotine dependence; Z98.84 Bariatric surgery status; I10 Essential (primary) hypertension; J45.909 Unspecified asthma, uncomplicated; J44.9 Chronic obstructive pulmonary disease, unspecified; K21.9 Gastro-esophageal reflux disease without esophagitis; K76.0 Fatty (change of) liver, not elsewhere classified; M54.9 Dorsalgia, unspecified; F31.9 Bipolar disorder, unspecified; F41.9 Anxiety disorder, unspecified; F32.9 Major depressive disorder, single episode, unspecified; F20.9 Schizophrenia, unspecified; Z86.14 Personal history of Methicillin resistant Staphylococcus aureus infection; Z79.899 Other long term (current) drug therapy; Z88.2 Allergy status to sulfonamides; Z88.8 Allergy status to other drugs, medicaments and biological substances; Z88.1 Allergy status to other antibiotic agents; Z91.040 Latex allergy status
CPT/HCPCS: 80053; 82150; 83690; 85025; 96374; 96375; 99284; J1200; J1885; J2405; J2765

== ENCOUNTER → 2019-03-07 | Outpatient (REF) | payer MEDICARE, MEDICAID ==
[2019-03-07 17:35] LABS: APPEARANCE, URINE TURBID (CLEAR); BACTERIA, URINE AUTO 2+ (NEGATIVE); BILIRUBIN, URINE AUTO 1+ (NEGATIVE); BLOOD, URINE BLOOD NEGATIVE (NEGATIVE); COLOR, URINE AMBER (YELLOW); GLUCOSE, URINE (UA) AUTO NEGATIVE (NEGATIVE); KETONE, URINE AUTO TRACE mg/dL (NEGATIVE); LEUKOCYTE ESTERASE, URINE AUTO NEGATIVE (NEGATIVE); MUCUS, URINE MODERATE (NEGATIVE); NITRITE, URINE AUTO NEGATIVE (NEGATIVE); PROTEIN, URINE AUTO NEGATIVE (NEGATIVE); RBC, URINE AUTO 1 /HPF (0-3); SPECIFIC GRAVITY URINE AUTO 1.021 (1.002-1.035); SQUAMOUS EPITHELIAL CELL UR AU 4 /HPF (0-6); UROBILINOGEN, URINE AUTO 0.2 mg/dL (0.0-2.0); WBC, URINE AUTO 7 /HPF (0-3)
[2019-03-07 17:46] LABS: BASO # 0.1 10^3/uL (0.0-0.2); BASO % 1.5 % (0.0-1.0); EOS # 0.1 10^3/uL (0.0-0.50); EOS % 2.2 % (0.0-3.0); HEMATOCRIT 41.1 % (36.0-47.0); HEMOGLOBIN 13.7 g/dl (12.0-15.5); LYMPH # 1.8 10^3/uL (1.5-4.5); LYMPH % 33.9 % (24.0-44.0); MEAN CORPUSCULAR HGB CONC 33.3 g/dl (32.0-36.5); MEAN CORPUSCULAR VOLUME 90.1 fl (80.0-96.0); MONO # 0.3 10^3/uL (0.0-0.8); MONO % 5.9 % (0.0-5.0); NEUTROPHILS # 3.1 10^3/uL (1.8-7.7); NEUTROPHILS % 56.3 % (36.0-66.0); PLATELET COUNT, AUTOMATED 247 10^3/uL (150-450); RED BLOOD COUNT 4.56 10^6/uL (4.00-5.40); WHITE BLOOD COUNT 5.4 10^3/uL (4.0-10.0)
[2019-03-07 17:48] LABS: ALBUMIN 3.7 GM/DL (3.2-5.2); ALT/SGPT 13 U/L (12-78); BILIRUBIN,TOTAL 0.3 MG/DL (0.2-1.0); BLOOD UREA NITROGEN 8 MG/DL (7-18); CALCIUM LEVEL 8.5 MG/DL (8.5-10.1); CARBON DIOXIDE LEVEL 23 MEQ/L (21-32); CHLORIDE LEVEL 110 MEQ/L (98-107); GLOMERULAR FILTRATION RATE > 60.0 (>58); GLUCOSE, FASTING 103 MG/DL (70-100); POTASSIUM SERUM 3.7 MEQ/L (3.5-5.1); SODIUM LEVEL 140 MEQ/L (136-145); TOTAL PROTEIN 6.2 GM/DL (6.4-8.2)
== END ==
LOC: M LAB REF 16:41
PROVIDERS: ATTEND Nurse Practitioner Family
DX: Z13.9 Encounter for screening, unspecified (principal)

== ENCOUNTER 2019-04-29 18:17 | Emergency (ER) | payer MEDICARE, MEDICAID ==
[~2019-04-29] VITALS: Ht 170.2 cm; Wt 80.9 kg
[~2019-04-29 18:17] MED LIST changes: +CYAN100T5 PO; +TRAZ1TAB10 PO; -TRAZO50TA PO; -VITA1TAB22 PO
[2019-04-29] MEDS ORDERED: LIDOCAINE 2% 5ML JELLY UROJET TOP ONE (19:30)
[2019-04-29] MEDS ORDERED: NS 1,000 ML IV ONE (19:30)
[2019-04-29 20:10] LABS: BASO # 0.1 10^3/uL (0.0-0.2); BASO % 0.8 % (0.0-1.0); EOS # 0.1 10^3/uL (0.0-0.50); EOS % 1.4 % (0.0-3.0); HEMATOCRIT 36.2 % (36.0-47.0); HEMOGLOBIN 11.9 g/dl (12.0-15.5); LYMPH # 2.9 10^3/uL (1.5-4.5); LYMPH % 30.8 % (24.0-44.0); MEAN CORPUSCULAR HEMOGLOBIN 30.6 pg (27.0-33.0); MEAN CORPUSCULAR HGB CONC 32.9 g/dl (32.0-36.5); MEAN CORPUSCULAR VOLUME 93.1 fl (80.0-96.0); MONO # 0.5 10^3/uL (0.0-0.8); MONO % 5.7 % (0.0-5.0); NEUTROPHILS # 5.8 10^3/uL (1.8-7.7); PLATELET COUNT, AUTOMATED 361 10^3/uL (150-450); RED BLOOD COUNT 3.89 10^6/uL (4.00-5.40); WHITE BLOOD COUNT 9.5 10^3/uL (4.0-10.0)
[2019-04-29 20:40] LABS: BLOOD UREA NITROGEN 7 MG/DL (7-18); CALCIUM LEVEL 7.9 MG/DL (8.5-10.1); CARBON DIOXIDE LEVEL 25 MEQ/L (21-32); CHLORIDE LEVEL 107 MEQ/L (98-107); CREATININE FOR GFR 0.87 MG/DL (0.55-1.30); GLOMERULAR FILTRATION RATE > 60.0 (>58); GLUCOSE, FASTING 101 MG/DL (70-100); POTASSIUM SERUM 4.5 MEQ/L (3.5-5.1); SODIUM LEVEL 137 MEQ/L (136-145)
--- NOTE | 2019-04-29 20:47 | REPVR ---
EXAM: CT Abdomen and Pelvis Without Contrast EXAM DATE/TIME: 04/29/2019 7:36 PM CLINICAL HISTORY: 38 years old, female; Abdominal pain; Generalized; Additional info: Abd pain, unable to urinate TECHNIQUE: Imaging protocol: Axial computed tomography images of the abdomen and pelvis without contrast. Coronal and sagittal reformatted images were created and reviewed. Radiation optimization: All CT scans at this facility use at least one of these dose optimization techniques: automated exposure control; mA and/or kV adjustment per patient size (includes targeted exams where dose is matched to clinical indication); or iterative reconstruction. COMPARISON: CT ABD PELVIS W/O CONTRAST 10/28/2018 2:37 PM FINDINGS: Heart: Small pericardial effusion. Mediastinum: Small hiatal hernia. ABDOMEN: Liver: Mild hepatomegaly. 8 mm fat density lesion in the hepatic dome, likely a lipoma. Gallbladder and bile ducts: Status post cholecystectomy. No biliary ductal dilatation. Pancreas: Unremarkable. Spleen: Unremarkable. Adrenals: Unremarkable. Kidneys and ureters: No mass. No radiodense calculi. No hydronephrosis. Stomach and bowel: Status post gastric bypass surgery. No obstruction. No bowel wall thickening. No pneumatosis. Appendix: Normal. PELVIS: Bladder: Unremarkable. Reproductive: Status post hysterectomy. ABDOMEN and PELVIS: Intraperitoneal space: No free fluid. No organized fluid collection. No free air. Bones/joints: No acute osseous abnormality. Osteopenia. Mild degenerative changes. Soft tissues: Evidence of prior right inguinal herniorrhaphy. Small, fat-containing left inguinal hernia. Vasculature: Unremarkable. No aneurysm. Lymph nodes: No pathologically enlarged lymph nodes. IMPRESSION: 1. Limited noncontrast examination without CT evidence of acute intra-abdominal or pelvic pathology. 2. Additional findings, as above. Electronically signed by: Alex Kay On 04/29/2019 20:46:57 PM
[2019-04-29 21:11] VITALS: BP 137/85
== END 2019-04-29 21:12 | disposition home or self-care (01) ==
LOC: M ED 18:17
DX: R30.0 Dysuria (principal); K44.9 Diaphragmatic hernia without obstruction or gangrene; I10 Essential (primary) hypertension; R51 Headache; J45.909 Unspecified asthma, uncomplicated; J44.9 Chronic obstructive pulmonary disease, unspecified; K21.9 Gastro-esophageal reflux disease without esophagitis; M54.9 Dorsalgia, unspecified; F31.9 Bipolar disorder, unspecified; F41.9 Anxiety disorder, unspecified; Z86.14 Personal history of Methicillin resistant Staphylococcus aureus infection; Z98.84 Bariatric surgery status; Z72.0 Tobacco use; Z79.899 Other long term (current) drug therapy; Z88.2 Allergy status to sulfonamides; Z88.8 Allergy status to other drugs, medicaments and biological substances; Z88.1 Allergy status to other antibiotic agents; Z91.040 Latex allergy status

== ENCOUNTER 2019-05-12 15:50 | Emergency (ER) | payer MEDICARE, MEDICAID ==
[~2019-05-12] VITALS: Ht 165.1 cm; Wt 81.4 kg
[~2019-05-12 15:50] MED LIST changes: -DULO1CAP3 PO; +DULO1CAP6 PO; +METH750T2 PO; -METH75TA PO
[2019-05-12] MEDS ORDERED: MISO200T56 PO (16:18)
[2019-05-12] MEDS ORDERED: REGL10TA6 PO (16:18)
[2019-05-12] MEDS ORDERED: CYCL5TAB PO (16:18)
[2019-05-12] MEDS ORDERED: FIOR1CAP PO (16:18)
[2019-05-12] MEDS ORDERED: diphenhydrAMINE INJ 50MG/ML VIAL (J1200) IV ONE (17:00)
[2019-05-12] MEDS ORDERED: METOCLOPRAMIDE INJ 10MG/2ML VIAL (J2765) IV ONE (17:00)
[2019-05-12] MEDS ORDERED: NS 1,000 ML IV ONE (17:00)
[2019-05-12] MEDS: ACETAMINOPHEN 500 MG TAB PO ONE ×2 (17:01→17:29)
--- NOTE | 2019-05-12 17:08 | REP ---
Clinical: Migraine headaches . Comparison: 05/21/2018 . Findings: The ventricles, sulci, and cisterns are normal in position and appearance. Gong-white differentiation is maintained. No acute intracranial hemorrhage, mass/mass effect, pathology or trauma/injury. No evidence for acute infarction. No extra-axial fluid collection. Calvarium is intact. Paranasal sinuses and mastoid air cells are clear. Impression: Normal noncontrast head CT. No evidence for acute intracranial pathology or trauma/injury. Electronically Signed by Jony Ley MD 05/12/2019 04:59 P
[2019-05-12] MEDS ORDERED: KETOROLAC 30 MG/ML VIAL (J1885) IV ONE (17:30)
[2019-05-12 18:42] VITALS: BP 135/83
== END 2019-05-12 18:47 | disposition home or self-care (01) ==
LOC: M ED 15:50
DX: G43.909 Migraine, unspecified, not intractable, without status migrainosus (principal); I10 Essential (primary) hypertension; J44.9 Chronic obstructive pulmonary disease, unspecified; J45.909 Unspecified asthma, uncomplicated; M06.9 Rheumatoid arthritis, unspecified; M32.9 Systemic lupus erythematosus, unspecified; F33.9 Major depressive disorder, recurrent, unspecified; F41.9 Anxiety disorder, unspecified; M35.00 Sjogren syndrome, unspecified; Z79.899 Other long term (current) drug therapy; Z88.1 Allergy status to other antibiotic agents; Z88.2 Allergy status to sulfonamides; Z88.8 Allergy status to other drugs, medicaments and biological substances; Z91.040 Latex allergy status; F17.210 Nicotine dependence, cigarettes, uncomplicated
CPT/HCPCS: 70450; 96374; 96375; 99284; J1200; J1885; J2765

== ENCOUNTER 2019-06-04 12:47 | Emergency (ER) | payer MEDICARE, MEDICAID ==
[~2019-06-04] VITALS: Ht 167.6 cm; Wt 79.1 kg
[~2019-06-04 12:47] MED LIST changes: +FIOR1CAP PO; +MISO200T56 PO; +REGL10TA6 PO
[2019-06-04 14:49] LABS: BASO # 0.1 10^3/uL (0.0-0.2); BASO % 1.1 % (0.0-1.0); EOS # 0.1 10^3/uL (0.0-0.50); EOS % 1.5 % (0.0-3.0); HEMOGLOBIN 11.5 g/dl (12.0-15.5); LYMPH # 2.3 10^3/uL (1.5-4.5); LYMPH % 42.2 % (24.0-44.0); MEAN CORPUSCULAR HEMOGLOBIN 31.5 pg (27.0-33.0); MEAN CORPUSCULAR HGB CONC 31.9 g/dl (32.0-36.5); MEAN CORPUSCULAR VOLUME 98.6 fl (80.0-96.0); MONO # 0.4 10^3/uL (0.0-0.8); MONO % 6.4 % (0.0-5.0); NEUTROPHILS # 2.7 10^3/uL (1.8-7.7); NEUTROPHILS % 48.6 % (36.0-66.0); PLATELET COUNT, AUTOMATED 200 10^3/uL (150-450); RED BLOOD COUNT 3.65 10^6/uL (4.00-5.40); WHITE BLOOD COUNT 5.5 10^3/uL (4.0-10.0)
[2019-06-04 15:10] LABS: ALBUMIN 2.5 GM/DL (3.2-5.2); ALT/SGPT 22 U/L (12-78); BILIRUBIN,DIRECT < 0.1 MG/DL (0.0-0.2); BILIRUBIN,TOTAL 0.2 MG/DL (0.2-1.0); BLOOD UREA NITROGEN 5 MG/DL (7-18); CALCIUM LEVEL 7.7 MG/DL (8.5-10.1); CARBON DIOXIDE LEVEL 18 MEQ/L (21-32); CHLORIDE LEVEL 111 MEQ/L (98-107); CREATININE FOR GFR 0.94 MG/DL (0.55-1.30); GLOMERULAR FILTRATION RATE > 60.0 (>58); GLUCOSE, FASTING 103 MG/DL (70-100); LIPASE 74 U/L (73-393); POTASSIUM SERUM 3.2 MEQ/L (3.5-5.1); SODIUM LEVEL 142 MEQ/L (136-145); TOTAL PROTEIN 4.9 GM/DL (6.4-8.2)
[2019-06-04] MEDS ORDERED: LIDOCAINE 2% 5ML JELLY UROJET TOP ONE (15:30)
[2019-06-04 17:07] VITALS: BP 149/76
== END 2019-06-04 17:10 | disposition home or self-care (01) ==
LOC: M ED 12:47
DX: R33.9 Retention of urine, unspecified (principal); D53.9 Nutritional anemia, unspecified; G89.29 Other chronic pain; M62.81 Muscle weakness (generalized); G43.909 Migraine, unspecified, not intractable, without status migrainosus; J45.909 Unspecified asthma, uncomplicated; J44.9 Chronic obstructive pulmonary disease, unspecified; K76.0 Fatty (change of) liver, not elsewhere classified; K21.9 Gastro-esophageal reflux disease without esophagitis; M54.9 Dorsalgia, unspecified; D64.9 Anemia, unspecified; F31.9 Bipolar disorder, unspecified; Z98.84 Bariatric surgery status; Z72.0 Tobacco use; Z79.899 Other long term (current) drug therapy; Z88.2 Allergy status to sulfonamides; Z88.8 Allergy status to other drugs, medicaments and biological substances; Z88.1 Allergy status to other antibiotic agents; Z91.040 Latex allergy status

== ENCOUNTER 2019-06-05 12:54 | Emergency (ER) | payer MEDICARE, MEDICAID ==
[~2019-06-05] VITALS: Ht 165.1 cm; Wt 66.8 kg
[2019-06-05] MEDS ORDERED: ACETAMINOPHEN TAB 650MG DOSE (2X325MG) PO ONE (13:30)
[2019-06-05] MEDS ORDERED: METOCLOPRAMIDE 10 MG TAB PO ONE (13:30)
[2019-06-05] MEDS ORDERED: KETOROLAC 30 MG/ML VIAL (J1885) IM ONE (14:30)
[2019-06-05 14:36] VITALS: BP 128/91
== END 2019-06-05 14:44 | disposition home or self-care (01) ==
LOC: M ED 12:54 → EDBD 12:54 → M ED 14:44
DX: R33.9 Retention of urine, unspecified (principal); R51 Headache; J45.909 Unspecified asthma, uncomplicated; J44.9 Chronic obstructive pulmonary disease, unspecified; F17.200 Nicotine dependence, unspecified, uncomplicated
CPT/HCPCS: 51702; 81001; 87088; 87186; 96372; 99284; J1885

== ENCOUNTER 2019-06-29 18:24 | Emergency (ER) | payer MEDICARE, MEDICAID ==
[~2019-06-29 18:24] MED LIST changes: +CLON0.5T2 PO; -CLON0.5T8 PO; +HYDR1TAB33 GT; -HYDRO50TAB GT; -LORA0.5T11 PO; +LORA0.5T5 PO; -LORA1TAB12 PO; +LORA1TAB4 PO; +NIFE1TAB52 PO; -NIFE30TA7 PO; +ONDA8TAB10 PO; -ONDA8TAB7 PO
[2019-06-29 19:36] VITALS: BP 134/90
[2019-06-29] MEDS ORDERED: LORazepam 0.5 MG TAB PO STA (20:36)
[2019-06-29] MEDS ORDERED: traZODone 50 MG TAB PO ONE (20:45)
[2019-08-26] MEDS ORDERED: LORA1TAB4 (12:50)
[2019-08-26] MEDS ORDERED: ONDA-83 (12:50)
[2019-08-26] MEDS ORDERED: TRAZ-257 (12:50)
== END 2019-06-29 21:22 | disposition home or self-care (01) ==
LOC: M ED 18:24
DX: F60.9 Personality disorder, unspecified (principal); F17.210 Nicotine dependence, cigarettes, uncomplicated; F41.9 Anxiety disorder, unspecified; F32.9 Major depressive disorder, single episode, unspecified; Z90.710 Acquired absence of both cervix and uterus; Z79.51 Long term (current) use of inhaled steroids; Z79.899 Other long term (current) drug therapy; Z98.84 Bariatric surgery status

== ENCOUNTER 2019-06-30 23:18 | Emergency (ER) | payer MEDICARE, MEDICAID ==
[~2019-06-30 23:18] MED LIST changes: -CLON0.5T2 PO; +CLON0.5T8 PO; +LORA0.5T11 PO; -LORA0.5T5 PO; +LORA1TAB12 PO; -LORA1TAB4 PO; -NIFE1TAB52 PO; +NIFE30TA7 PO; -ONDA8TAB10 PO; +ONDA8TAB7 PO
[2019-07-01 01:23] VITALS: BP 129/91
== END 2019-07-01 01:25 | disposition home or self-care (01) ==
LOC: M ED 23:18
DX: R44.1 Visual hallucinations (principal); F17.210 Nicotine dependence, cigarettes, uncomplicated; Z79.51 Long term (current) use of inhaled steroids; Z79.899 Other long term (current) drug therapy; Z88.1 Allergy status to other antibiotic agents; Z88.2 Allergy status to sulfonamides; Z88.8 Allergy status to other drugs, medicaments and biological substances; Z91.040 Latex allergy status

== ENCOUNTER → 2019-07-19 | Outpatient (CLI) | payer MEDICARE, MEDICAID ==
[~2019-07-19] MED LIST changes: +METH4PACK; +PROM25TA12; +SUMA50TA2
--- NOTE | 2019-07-19 16:36 | REP ---
MRI brain without contrast: History: The migraine without aura. Dizziness and giddiness. . Comparison study: Comparison study January 04, 2018. Comparison CT exam is from May 12, 2019. Technique: Axial and sagittal imaging planes are utilized for T1 and T2-weighted scans. Sequences include spin-echo, fast spin echo, FLAIR, and diffusion weighted sequences. MRI findings: No bony calvarial lesion is seen. Craniocervical junction and upper cervical cord are normal in appearance. There is no MR evidence of significant paranasal sinus disease. No intraorbital abnormality is seen. The lateral, third, and fourth ventricles are normal in size and position. Gong-white differentiation pattern is intact above and below the tentorium. There is no evidence of intracranial hemorrhage. No mass, infarction, extra-axial fluid collection or midline shift is seen. No abnormal white matter lesion is seen. Impression: Negative noncontrast brain MRI study. Electronically Signed by Cy Hinojosa MD 07/19/2019 04:28 P
== END ==
LOC: M RAD 15:41
PROVIDERS: ATTEND Nurse Practitioner Family
DX: G43.009 Migraine without aura, not intractable, without status migrainosus (principal); R42 Dizziness and giddiness

== ENCOUNTER 2019-07-23 17:03 | Emergency (ER) | payer MEDICARE, MEDICAID ==
[~2019-07-23] VITALS: Ht 167.6 cm; Wt 68.2 kg
[~2019-07-23 17:03] MED LIST changes: +CLON0.5T2 PO; -CLON0.5T8 PO; -LORA0.5T11 PO; +LORA0.5T5 PO; -LORA1TAB12 PO; +LORA1TAB4 PO; -METH4PACK; +NIFE1TAB52 PO; -NIFE30TA7 PO; +ONDA8TAB10 PO; -ONDA8TAB7 PO; -PROM25TA12; -SUMA50TA2
[2019-07-23 17:12] VITALS: BP 148/91
[2019-07-23] MEDS ORDERED: PROM25TA12 (17:29)
[2019-07-23] MEDS ORDERED: METH4PACK (17:29)
[2019-07-23] MEDS ORDERED: SUMA50TA2 (17:29)
[2019-07-23] MEDS ORDERED: KETOROLAC 30 MG/ML VIAL (J1885) IV ONE (19:30)
[2019-07-23] MEDS ORDERED: METOCLOPRAMIDE INJ 10MG/2ML VIAL (J2765) IV ONE (19:30)
[2019-07-23] MEDS ORDERED: NS 500 ML IV ONE (19:30)
--- NOTE | 2019-07-23 19:40 | ECGEPIP ---
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
[2019-08-26] MEDS ORDERED: LORA1TAB4 (12:50)
[2019-08-26] MEDS ORDERED: TRAZ-257 (12:50)
[2019-08-26] MEDS ORDERED: ONDA-83 (12:50)
== END 2019-07-23 21:54 | disposition home or self-care (01) ==
LOC: EDBD 17:03 → M ED 17:03
DX: G43.009 Migraine without aura, not intractable, without status migrainosus (principal); F31.9 Bipolar disorder, unspecified; M32.9 Systemic lupus erythematosus, unspecified; Z98.84 Bariatric surgery status; F17.200 Nicotine dependence, unspecified, uncomplicated; Z88.2 Allergy status to sulfonamides; Z88.1 Allergy status to other antibiotic agents; Z88.8 Allergy status to other drugs, medicaments and biological substances; Z91.040 Latex allergy status; Z79.899 Other long term (current) drug therapy; Z79.51 Long term (current) use of inhaled steroids
CPT/HCPCS: 93005; 93041; 96361; 96374; 96375; 99285; J1885; J2765

== ENCOUNTER 2019-08-12 14:31 | Emergency (ER) | payer MEDICARE, MEDICAID ==
[~2019-08-12] VITALS: Ht 167.6 cm; Wt 72.7 kg
[~2019-08-12 14:31] MED LIST changes: +METH4PACK; +PROM25TA12; +SUMA50TA2
[2019-08-12] MEDS ORDERED: NS 1,000 ML IV SCH (15:46)
[2019-08-12] MEDS ORDERED: KETOROLAC 30 MG/ML VIAL (J1885) IV ONE (16:00)
[2019-08-12] MEDS ORDERED: METOCLOPRAMIDE INJ 10MG/2ML VIAL (J2765) IV ONE (16:00)
[2019-08-12 16:28] LABS: BASO # 0.1 10^3/uL (0.0-0.2); BASO % 1.1 % (0.0-1.0); EOS % 0.6 % (0.0-3.0); HEMATOCRIT 34.9 % (36.0-47.0); HEMOGLOBIN 11.8 g/dl (12.0-15.5); LYMPH # 2.6 10^3/uL (1.5-5.0); LYMPH % 48.5 % (24.0-44.0); MEAN CORPUSCULAR HEMOGLOBIN 29.7 pg (27.0-33.0); MEAN CORPUSCULAR HGB CONC 33.8 g/dl (32.0-36.5); MEAN CORPUSCULAR VOLUME 87.9 fl (80.0-96.0); MONO # 0.4 10^3/uL (0.0-0.8); MONO % 6.5 % (0.0-5.0); NEUTROPHILS # 2.3 10^3/uL (1.5-8.5); NEUTROPHILS % 43.1 % (36.0-66.0); PLATELET COUNT, AUTOMATED 250 10^3/uL (150-450); RED BLOOD COUNT 3.97 10^6/uL (4.00-5.40); WHITE BLOOD COUNT 5.4 10^3/uL (4.0-10.0)
[2019-08-12 16:53] LABS: BLOOD UREA NITROGEN 3 MG/DL (7-18); CALCIUM LEVEL 8.1 MG/DL (8.5-10.1); CARBON DIOXIDE LEVEL 21 MEQ/L (21-32); CHLORIDE LEVEL 105 MEQ/L (98-107); CREATININE FOR GFR 0.79 MG/DL (0.55-1.30); GLOMERULAR FILTRATION RATE > 60.0 (>58); GLUCOSE, FASTING 81 MG/DL (70-100); POTASSIUM SERUM 4.7 MEQ/L (3.5-5.1); SODIUM LEVEL 134 MEQ/L (136-145)
[2019-08-12 18:45] VITALS: BP 128/84
[2019-08-26] MEDS ORDERED: LORA1TAB4 (12:50)
[2019-08-26] MEDS ORDERED: TRAZ-257 (12:50)
[2019-08-26] MEDS ORDERED: ONDA-83 (12:50)
== END 2019-08-12 19:03 | disposition home or self-care (01) ==
LOC: EDBD 14:31 → M ED 14:31
DX: G43.909 Migraine, unspecified, not intractable, without status migrainosus (principal); F79 Unspecified intellectual disabilities; K21.9 Gastro-esophageal reflux disease without esophagitis; I10 Essential (primary) hypertension; F41.9 Anxiety disorder, unspecified; F32.9 Major depressive disorder, single episode, unspecified; Z87.19 Personal history of other diseases of the digestive system; E28.2 Polycystic ovarian syndrome; M32.9 Systemic lupus erythematosus, unspecified; Z90.79 Acquired absence of other genital organ(s); Z98.84 Bariatric surgery status; F17.210 Nicotine dependence, cigarettes, uncomplicated; Z88.2 Allergy status to sulfonamides; Z88.1 Allergy status to other antibiotic agents; Z88.8 Allergy status to other drugs, medicaments and biological substances; Z79.1 Long term (current) use of non-steroidal anti-inflammatories (NSAID); Z79.899 Other long term (current) drug therapy
CPT/HCPCS: 80048; 85025; 93041; 96374; 99284; J2765

== ENCOUNTER 2019-08-26 12:24 | Emergency (ER) | payer MEDICARE, MEDICAID ==
[~2019-08-26] VITALS: Ht 170.2 cm; Wt 69.8 kg
[~2019-08-26 12:24] MED LIST changes: -CLON0.5T2 PO; +CLON0.5T8 PO; +LORA0.5T11 PO; -LORA0.5T5 PO; +LORA1TAB12 PO; -LORA1TAB4 PO; -NIFE1TAB52 PO; +NIFE30TA7 PO; -ONDA8TAB10 PO; +ONDA8TAB7 PO
[2019-08-26] MEDS ORDERED: PANT40TA3 (12:50)
[2019-08-26] MEDS ORDERED: TRAZ-163 (12:50)
[2019-08-26] MEDS ORDERED: DULO1CAP6 PO (12:50)
[2019-08-26] MEDS ORDERED: ONDA4TAB5 (12:50)
[2019-08-26] MEDS ORDERED: LORA1TAB12 (12:50)
[2019-08-26] MEDS ORDERED: NS 1,000 ML IV ONE (13:00)
[2019-08-26 14:09] LABS: BASO # 0.1 10^3/uL (0.0-0.2); BASO % 1.2 % (0.0-1.0); EOS # 0.1 10^3/uL (0.0-0.5); EOS % 1.6 % (0.0-3.0); HEMATOCRIT 34.4 % (36.0-47.0); HEMOGLOBIN 11.7 g/dl (12.0-15.5); LYMPH # 1.9 10^3/uL (1.5-5.0); LYMPH % 38.3 % (24.0-44.0); MEAN CORPUSCULAR HEMOGLOBIN 30.8 pg (27.0-33.0); MEAN CORPUSCULAR VOLUME 90.5 fl (80.0-96.0); MONO # 0.4 10^3/uL (0.0-0.8); MONO % 8.1 % (0.0-5.0); NEUTROPHILS # 2.6 10^3/uL (1.5-8.5); NEUTROPHILS % 50.6 % (36.0-66.0); PLATELET COUNT, AUTOMATED 271 10^3/uL (150-450); WHITE BLOOD COUNT 5.1 10^3/uL (4.0-10.0)
[2019-08-26 15:38] LABS: ALBUMIN 2.2 GM/DL (3.2-5.2); ALT/SGPT 52 U/L (12-78); BILIRUBIN,DIRECT 0.2 MG/DL (0.0-0.2); BILIRUBIN,TOTAL 0.5 MG/DL (0.2-1.0); BLOOD UREA NITROGEN 2 MG/DL (7-18); CALCIUM LEVEL 8.1 MG/DL (8.5-10.1); CARBON DIOXIDE LEVEL 23 MEQ/L (21-32); CHLORIDE LEVEL 106 MEQ/L (98-107); CK-MB VALUE MASS 4.5 NG/ML (<3.6); CPK CREATINE PHOSPHOKINASE 362 U/L (26-192); CREATININE FOR GFR 0.76 MG/DL (0.55-1.30); GLOMERULAR FILTRATION RATE > 60.0 (>58); GLUCOSE, FASTING 86 MG/DL (70-100); LIPASE 63 U/L (73-393); MAGNESIUM LEVEL 1.7 MG/DL (1.8-2.4); MB/CK RELATIVE INDEX 1.24 (< OR =4); POTASSIUM SERUM 3.1 MEQ/L (3.5-5.1); SODIUM LEVEL 139 MEQ/L (136-145); TOTAL PROTEIN 4.5 GM/DL (6.4-8.2); TROPONIN I < 0.02 NG/ML (< 0.10)
--- NOTE | 2019-08-26 19:03 | ECGEPIP ---
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
[2019-08-26] MEDS ORDERED: ISOVUE-370 76% 100ML VIAL (Q9967) As Ordered ONE (19:31)
[2019-08-26] MEDS ORDERED: ONDANSETRON 4MG/2ML VIAL (J2405) IV ONE (20:00)
--- NOTE | 2019-08-26 20:35 | REPVR ---
PROCEDURE INFORMATION: Exam: CT Abdomen And Pelvis With Contrast Exam date and time: 08/26/2019 7:47 PM Clinical history: 39 years old, female; Abdominal pain; Generalized; Additional info: Vomiting TECHNIQUE: Imaging protocol: Computed tomography of the abdomen and pelvis with intravenous contrast. Radiation optimization: All CT scans at this facility use at least one of these dose optimization techniques: automated exposure control; mA and/or kV adjustment per patient size (includes targeted exams where dose is matched to clinical indication); or iterative reconstruction. Contrast material: ISOVUE 370; Contrast volume: 100 ml; Contrast route: IV; COMPARISON: CT ABD PELVIS W/O CONTRAST 04/29/2019 7:28 PM FINDINGS: Lungs: No suspicious mass or airspace process in the visualized lung bases. Liver: Liver appears normal with no focal abnormality. Gallbladder and bile ducts: Gallbladder is either contracted or surgically absent. Pancreas: Pancreas appears normal. No focal mass or peripancreatic inflammation. Spleen: Spleen appears homogeneous without focal mass. Adrenals: Adrenal glands are normal in appearance. Kidneys and ureters: Kidneys appear normal, with no stone, solid mass or hydronephrosis. Stomach and bowel: Gastric diversion procedure changes are present without obstruction or dehiscence. No evidence of small bowel obstruction. No evidence of acute diverticulitis. Mobile cecum lies in the anterior left lower quadrant. Appendix: Normal caliber appendix is identified, with no adjacent inflammation. Intraperitoneal space: No pneumoperitoneum. Vasculature: Main portal and splenic veins enhance normally. No aortic aneurysm. Lymph nodes: No enlarged lymph nodes. Bladder: Urinary bladder appears normal. Reproductive: Uterus is surgically absent. Bones/joints: Bony structures show no acute fracture or destructive process. Soft tissues: Unremarkable. IMPRESSION: No acute surgical or inflammatory intra-abdominal or pelvic process. No explanation for vomiting and abdominal pain Electronically signed by: Shamar Kemp On 08/26/2019 20:34:57 PM
[2019-08-26 20:45] VITALS: BP 136/89
[2019-08-26] MEDS ORDERED: SUCR1SS PO (20:46)
--- NOTE | 2019-08-27 05:38 | ECGEPIP ---
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
--- NOTE | 2019-08-27 09:22 | REP ---
REASON: Abdominal pain . AP and lateral views of the chest were obtained. COMPARISON: The latest prior 01/16/2019, also a frontal view. Comparison supine and upright view of the chest, the same day. FINDINGS: The superior mediastinal structures are midline. The cardiac silhouette is unremarkable in size, shape, and position. The diaphragmatic surfaces of the lungs are regular, and the costophrenic angles are clear. The pulmonary rios are clear. The imaged osseous structures are intact. IMPRESSION: There is no acute cardiopulmonary disease. There has been no significant change compared to the prior exam. Electronically Signed by Ishaan Rivera DO 08/27/2019 09:42 A
== END 2019-08-26 21:14 | disposition home or self-care (01) ==
LOC: M ED 12:24
DX: R10.9 Unspecified abdominal pain (principal); R11.2 Nausea with vomiting, unspecified; F31.9 Bipolar disorder, unspecified; Z98.84 Bariatric surgery status; F17.218 Nicotine dependence, cigarettes, with other nicotine-induced disorders; Z88.2 Allergy status to sulfonamides; Z88.1 Allergy status to other antibiotic agents; Z88.8 Allergy status to other drugs, medicaments and biological substances
CPT/HCPCS: 36415; 71046; 74177; 80048; 80076; 82550; 82553; 83605; 83690; 83735; 84484; 85025; 87040; 93005; 96361; 96374; 99285; J2405; Q9967

== ENCOUNTER 2020-10-18 12:12 | Inpatient (IN) | payer MEDICARE, MEDICAID ==
[~2020-10-18] VITALS: Ht 170.2 cm; Wt 85.0 kg
[~2020-10-18 12:12] MED LIST changes: -AMLO10TA5 PO; +AMLO1TAB24; +AMLO1TAB25 PO; -AMLO5TAB6; +CLON0.5T2 PO; -CLON0.5T8 PO; +CYAN100T4 PO; -CYAN100T5 PO; +CYCL-707 PO; -CYCL10TA PO; -CYTO100T PO; +CYTO1TAB2 PO; -LORA0.5T11 PO; +LORA0.5T5 PO; -LORA1TAB12 PO; +LORA1TAB4; +LORA1TAB4 PO; -MONT10TA2 PO; +MONT5TAB2 PO; +NIFE1TAB52 PO; -NIFE30TA7 PO; +ONDA-83; +ONDA8TAB10 PO; -ONDA8TAB7 PO; +PANT40TA29; +PANT40TA29 PO; -PANT40TA3 PO; +TRAZ-257; -ZOLP12.515 PO; +ZOLP12.518 PO
[2020-10-18 14:57] LABS: HEMATOCRIT 40.6 % (36.0-47.0); HEMOGLOBIN 13.2 g/dl (12.0-15.5); MEAN CORPUSCULAR HEMOGLOBIN 29.9 pg (27.0-33.0); MEAN CORPUSCULAR HGB CONC 32.5 g/dl (32.0-36.5); MEAN CORPUSCULAR VOLUME 91.9 fl (80.0-96.0); PLATELET COUNT, AUTOMATED 282 10^3/uL (150-450); RED BLOOD COUNT 4.42 10^6/uL (4.00-5.40); WHITE BLOOD COUNT 9.7 10^3/uL (4.0-10.0)
[2020-10-18 16:09] LABS: AMPHETAMINES LEVEL URINE NEGATIVE (NEGATIVE); BARBITURATES URINE NEGATIVE (NEGATIVE); BENZODIAZEPINES URINE NEGATIVE (NEGATIVE); CANNABINOIDS URINE NEGATIVE (NEGATIVE); COCAINE METABOLITE URINE NEGATIVE (NEGATIVE); METHADONE URINE NEGATIVE (NEGATIVE); OPIATES URINE NEGATIVE (NEGATIVE); PHENCYCLIDINE URINE NEGATIVE (NEGATIVE)
[2020-10-18 16:28] LABS: ACETAMINOPHEN LEVEL < 2.0 UG/ML (10.0-30.0); ALBUMIN 3.7 GM/DL (3.2-5.2); ALT/SGPT 30 U/L (12-78); BILIRUBIN,DIRECT 0.1 MG/DL (0.0-0.2); BILIRUBIN,TOTAL 0.5 MG/DL (0.2-1.0); BLOOD UREA NITROGEN 10 MG/DL (7-18); CALCIUM LEVEL 8.7 MG/DL (8.5-10.1); CARBON DIOXIDE LEVEL 24 MEQ/L (21-32); CHLORIDE LEVEL 106 MEQ/L (98-107); ETHYL ALCOHOL (ETHANOL) < 0.003 % (0.000-0.010); GLOMERULAR FILTRATION RATE > 60.0 (>58); GLUCOSE, FASTING 100 MG/DL (70-100); POTASSIUM SERUM 4.5 MEQ/L (3.5-5.1); SALICYLATE LEVEL 1.9 MG/DL (5.0-30.0); SODIUM LEVEL 137 MEQ/L (136-145); TOTAL PROTEIN 6.4 GM/DL (6.4-8.2)
[2020-10-18] MEDS ORDERED: MOM 30ML SUSPENSION UDC PO PRN (18:15)
[2020-10-18] MEDS ORDERED: MAALOX 30 ML SUSP *UDC PO PRN (18:15)
--- NOTE | 2020-10-18 18:32 | HPEPDOC ---
[facility] Medical History & Physical Date of Admission Oct 18, 2020 Date of Service: Oct 18, 2020 History and Physical CHIEF COMPLAINT: Homelessness HISTORY OF PRESENT ILLNESS: 40-year-old female presents to the hospital for homelessness. She was a resident at [facility] assisted living for the past 1 year but yesterday she left because she didn't like it there. She went to [facility] who referred her to victims assistance who referred her to the hospital. The hospital geriatric social worker attempted to work with her Renay stephen however she was unable to assist her with placement from the ED. Patient has no active medical problems and is being admitted for homelessness and inability to care for self. This includes cooking at home and finances per patient. Patient has no complaints feels well and just wants help for her homelessness. PAST MEDICAL HISTORY: From chart review as well as from patient: Homelessness Intellectual disability Anxiety and depression History of suicidal ideation Bipolar disorder Bulimia disorder Fibromyalgia Migraine headaches Sjogren syndrome SLE Rheumatoid arthritis Hypertension Allergic rhinitis GERD Fatty liver from CT January 2017 PAST SURGICAL HISTORY: Tonsillectomy Hysterectomy Gastric bypass surgery SOCIAL HISTORY: Denies alcohol use Denies tobacco use over the past 1 year while living at [facility] however endorsed that she has resumed smoking since yesterday 3-4 cigarettes. Denies illicit drug use FAMILY HISTORY: Mother lung cancer 2 brothers alive Father alive she doesn't know much of his healthy lives in [place] ALLERGIES: Please see below. REVIEW OF SYSTEMS: 10 point review of systems complete all negative otherwise stated in HPI HOME MEDICATIONS: Please see below. PHYSICAL EXAMINATION: Constitutional: Awake and alert, in no apparent distress ENT: Sclera are clear. Mucosa is moist. Respiratory: Lungs CTA bilaterally. No respiratory distress. No use of accesso ry muscles. Cardiovascular: RRR S1 and S2 are normal, no murmur Gastrointestinal: Abdomen is soft, non distended, non tender, BS present. Obese Musculoskeletal: No edema. Neurologic: No focal neurological deficit. Mental Status: A&O x3, normal affect answering all questions appropriately Skin: Warm, dry, LABORATORY DATA: See below. IMAGING: None MICROBIOLOGY: Please see below. Assessment 40-year-old female presents to the hospital for homelessness. Social work for placement. No active medical problems. Plan Social work was consulted to help with homelessness. Patient has no active me dical problems and is in ALC status. Psychiatry was consulted to evaluate and manage her psychiatric problems and resume her meds as appropriate. Lovenox will be used for prophylaxis. Blood work on admission reviewed. Daily blood work not necessary. Home meds will be resumed for chronic medical problems. Patient is a recent smoker and I advised her to quit smoking and offered a nicotine patch which she refused. A [facility] Hospitalist Vital Signs Vital Signs Date Time Temp Pulse Resp B/P (MAP) Pulse Ox O2 Delivery O2 Flow Rate FiO2 10/18/20 14:47 Automatic Cuff (NIBP) 10/18/20 12:12 97.1 113 22 99 Room Air Laboratory Data Labs 24H Laboratory Tests 2 10/18/20 12:59: Nucleated Red Blood Cells % (auto) 0.0, Anion Gap 7L, Glomerular Filtration Rate > 60.0, Calcium Level 8.7, Total Bilirubin 0.5, Direct Bilirubin 0.1, Aspartate Amino Transf (AST/SGOT) 21, Alanine Aminotransferase (ALT/SGPT) 30, Alkaline Phosphatase 64, Total Protein 6.4, Albumin 3.7, Albumin/Globulin Ratio 1.4, Thyroid Stimulating Hormone (TSH) 1.060, Salicylates Level 1.9L, Acetaminophen Level < 2.0L, Ethyl Alcohol Level < 0.003 10/18/20 14:34: Urine Opiates Screen NEGATIVE, Urine Methadone Screen NEGATIVE, Urine Barbiturates Screen NEGATIVE, Urine Phencyclidine Screen NEGATIVE, Urine Amphetamines Screen NEGATIVE, Urine Benzodiazepines Screen NEGATIVE, Urine Cocaine Metabolite Screen NEGATIVE, Urine Cannabinoids Screen NEGATIVE CBC/BMP Laboratory Tests 10/18/20 12:59 Home Medications No Active Prescriptions or Reported Meds Allergies Coded Allergies: Sulfa (Sulfonamide Antibiotics) (Verified Allergy, Intermediate, RASH AND HIVES, 10/18/20) cephalexin (Verified Allergy, Intermediate, hives, 10/18/20) erythromycin base (Verified Allergy, Intermediate, hives/rash, 10/18/20) latex (Verified Allergy, Intermediate, hives, 10/18/20) levofloxacin (Verified Allergy, Intermediate, hives/rash, 10/18/20) lisinopril (Verified Allergy, Intermediate, hives/rash, 10/18/20) sulfamethoxazole (Verified Allergy, Intermediate, hives/rash, 10/18/20) eszopiclone (Verified Allergy, Mild, rash, 10/18/20) metoclopramide (Verified Allergy, Unknown, 10/18/20) omeprazole (Verified Allergy, Unknown, 10/18/20) bupropion (Verified Adverse Reaction, Mild, nausea, 10/18/20) trimethoprim (Verified Adverse Reaction, Mild, nausea/vomitting, 10/18/20) A-FIB/CHADSVASC A-FIB History Current/History of A-Fib/PAF?: No YOUSEFCHAPO MD Oct 18, 2020 18:32
[2020-10-18] MEDS: ACETAMINOPHEN TAB 650MG DOSE (2X325MG) PO PRN (20:57)
[2020-10-19 03:13] VITALS: BP 143/91
[2020-10-19 06:00] VITALS: BP 144/91
[2020-10-19] MEDS ORDERED: LEVOTHYROXINE 25MCG TABLET (0.025MG) PO SCH (06:00)
[2020-10-19] MEDS ORDERED: TIOTROPIUM INHALER/CAPSULE (SPIRIVA) INH SCH (08:00)
[2020-10-19] MEDS ORDERED: BACLOFEN 10 MG TAB PO SCH (09:00)
[2020-10-19] MEDS ORDERED: ENOXAPARIN 40MG/0.4ML SYRINGE (J1650 PER 10MG) SC SCH (09:00)
[2020-10-19] MEDS ORDERED: HYDROXYCHLOROQUINE 200 MG TAB PO SCH (09:00)
[2020-10-19] MEDS ORDERED: GABAPENTIN 400 MG CAP PO SCH (09:00)
[2020-10-19] MEDS ORDERED: predniSONE 5 MG TAB PO SCH (09:00)
[2020-10-19] MEDS ORDERED: MULTIVITAMINS/MINERALS THERAP 1 TAB PO SCH (09:00)
[2020-10-19] MEDS ORDERED: SENNA 8.6 MG TAB (SENOKOT) PO SCH (09:00)
[2020-10-19] MEDS ORDERED: levETIRAcetam 250MG TABLET (KEPPRA) PO SCH (09:00)
[2020-10-19] MEDS ORDERED: METOPROLOL TART 50 MG TAB PO SCH (09:00)
[2020-10-19] MEDS: ACETAMINOPHEN TAB 650MG DOSE (2X325MG) PO PRN (09:22)
[2020-10-19] MEDS ORDERED: KEPP1TAB PO (09:46)
[2020-10-19] MEDS ORDERED: DOXE25CA PO (09:46)
[2020-10-19] MEDS ORDERED: MED REC COMMENT (09:46)
[2020-10-19] MEDS ORDERED: CALC1CAP31 PO (09:46)
[2020-10-19] MEDS ORDERED: PENT400T23 PO (09:46)
[2020-10-19] MEDS ORDERED: METO50TA7 PO (09:46)
[2020-10-19] MEDS ORDERED: TRAZ-257 PO (09:46)
[2020-10-19] MEDS ORDERED: DULO30CA9 PO (09:46)
[2020-10-19] MEDS ORDERED: PRED5TA PO (09:46)
[2020-10-19] MEDS ORDERED: GABA-845 PO (09:46)
[2020-10-19] MEDS ORDERED: BUSP10TA PO (09:46)
[2020-10-19] MEDS ORDERED: METH2.5T48 PO (09:46)
[2020-10-19] MEDS ORDERED: LEVO25TA5 PO (09:46)
[2020-10-19] MEDS ORDERED: BACL1TAB8 PO (09:46)
[2020-10-19] MEDS ORDERED: SALA1TAB PO (09:46)
[2020-10-19] MEDS ORDERED: HYDR200T3 PO (09:46)
--- NOTE | 2020-10-19 09:47 | MHCRPDOC ---
[facility] Consultation Consultation DATE OF CONSULTATION: 10/19/20 CONSULTATION REQUESTED BY: Internal medicine REASON FOR CONSULTATION: Medication consult RELEVANT HISTORY: The patient is a 40-year-old woman with a history of reported depression and anxiety was admitted to the medical floor on a social admission as she was homeless after leaving an assisted living facility, she reportedly did not like living there and had presented to the hospital not having anywhere to go. DSS would not help her and she subsequently was admitted as she is not able to care for herself, she requires some assistance. She reports having history of depression anxiety with admissions to inpatient mental health last year, she reports that she is on a combination that are quite helpful for her, in the form of doxepin Cymbalta BuSpar and others. PAST PSYCHIATRIC HISTORY: Reports an admission last year, no suicide attempts, been tried on multiple different medications "cannot remember them all, reports current medications helpful for diagnosis of depression and anxiety PAST MEDICAL HISTORY: COPD and other age-related comorbidities FAMILY HISTORY: Global depression anxiety PERSONAL AND SOCIAL HISTORY: The patient was born and raised in [place]. Recently was living in assisted living facility Resides in: [place] Marital Status: S Single Children: Reports some adult children Employment: Unemployed, disabled SUBSTANCE ABUSE HISTORY: Smoking: Reports daily tobacco smoking ETOH: Denies Illicit Drugs: Denies LEGAL HISTORY: Denies. MENTAL STATUS EXAMINATION: Patient is a 40-year old female, who is fair hygiene Speech is fluid. Language skills are intact. Thought processes including: Linear. Thought content: Logical. Abstract reasoning, and computation: Intact. Description of associations: Intact. Description of abnormal or psychotic thoughts: Denies any suicidal or homicidal ideation. Judgment: Fair. Insight: Fair. Orientation to person place and time. Recent and remote memory: Grossly intact. Attention span and concentration: Grossly intact. Language: Intact. Fund of knowledge: Intact. Mood: "Okay". Affect: Euthymic. DIAGNOSIS: 1. Unspecified depressive disorder PLAN: 1. Recommend continue to home medications for psychiatry 2. Low risk for suicide, no current ideation recent admission last year, but no history of attempts. Does not meet criteria for inpatient psychiatry at this time with no ideation and stable on psychiatric medications at this time. Vital Signs Vital Signs Date Time Temp Pulse Resp B/P (MAP) Pulse Ox O2 Delivery O2 Flow Rate FiO2 10/19/20 06:00 98.6 78 18 144/91 (108) 99 Room Air Laboratory Data 24H Labs Laboratory Tests 2 10/18/20 12:59: Nucleated Red Blood Cells % (auto) 0.0, Anion Gap 7L, Glomerular Filtration Rate > 60.0, Calcium Level 8.7, Total Bilirubin 0.5, Direct Bilirubin 0.1, Aspartate Amino Transf (AST/SGOT) 21, Alanine Aminotransferase (ALT/SGPT) 30, Alkaline Phosphatase 64, Total Protein 6.4, Albumin 3.7, Albumin/Globulin Ratio 1.4, Thyroid Stimulating Hormone (TSH) 1.060, Salicylates Level 1.9L, Acetaminophen Level < 2.0L, Ethyl Alcohol Level < 0.003 10/18/20 14:34: Urine Opiates Screen NEGATIVE, Urine Methadone Screen NEGATIVE, Urine Barbiturates Screen NEGATIVE, Urine Phencyclidine Screen NEGATIVE, Urine Amphetamines Screen NEGATIVE, Urine Benzodiazepines Screen NEGATIVE, Urine Cocaine Metabolite Screen NEGATIVE, Urine Cannabinoids Screen NEGATIVE 10/18/20 21:50: Coronavirus (COVID-19)(PCR) NEGATIVE Home Medications Current Medications Current Medications Medications (Trade) Dose Ordered Sig/Ninfa Route PRN Reason Start Time Stop Time Status Last Admin Dose Admin Acetaminophen (Tylenol Tab) 650 mg Q4H PRN PO PAIN OR FEVER 10/18/20 18:15 10/19/20 09:22 Al Hydrox/Mg Hydrox/Simethicone (Mylanta) 30 ml DAILY PRN PO DYSPEPSIA 10/18/20 18:15 Enoxaparin Sodium (Lovenox) 40 mg DAILY SC 10/19/20 09:00 10/19/20 09:22 Home Med (Med Rec Complete!) ASDIRECTED XX 10/18/20 17:30 10/18/20 17:30 DC Magnesium Hydroxide (Milk Of Magnesia) 30 ml DAILY PRN PO CONSTIPATION 10/18/20 18:15 Scheduled Baclofen (Baclofen) 10 Mg Tablet, 10 MG PO BID, (Reported) Buspirone HCl (Buspirone HCl) 10 Mg Tablet, 10 MG PO BID, (Reported) Calcitriol (Calcitriol) 0.25 Mcg Capsule, 0.25 MCG PO DAILY, (Reported) Cyanocobalamin (Vitamin B-12) (Vitamin B-12) 1,000 Mcg Tablet, 1,000 MCG PO TID, (Reported) Doxepin HCl (Doxepin HCl) 25 Mg Capsule, 25 MG PO BID, (Reported) Duloxetine Hcl (Duloxetine HCl) 30 Mg Capsule.dr, 30 MG PO DAILY, (Reported) Folic Acid (Folic Acid) 1 Mg Tablet, 1 MG PO DAILY, (Reported) Gabapentin (Gabapentin) 400 Mg Capsule, 400 MG PO TID, (Reported) Hydroxychloroquine Sulfate (Hydroxychloroquine Sulfate) 200 Mg Tablet, 200 MG PO BID, (Reported) Levetiracetam (Keppra) 500 Mg Tablet, 500 MG PO BID, (Reported) Levothyroxine Sodium (Levothyroxine Sodium) 25 Mcg Tablet, 12.5 MCG PO DAILY, (Reported) Magnesium Oxide (Magnesium Oxide) 400 Mg Tablet, 400 MG PO DAILY, (Reported) Methotrexate Sodium (Methotrexate) 2.5 Mg Tablet, 7.5 MG PO QWEEK, (Reported) MONDAYS Metoprolol Tartrate (Metoprolol Tartrate) 50 Mg Tablet, 50 MG PO BID, (Reported) Multivitamins (Thera M Plus Tablet) 1 Each Tablet, 1 TAB PO DAILY, (Reported) Pentoxifylline (Pentoxifylline) 400 Mg Tablet.er, 400 MG PO BID, (Reported) Pilocarpine HCl (Salagen) 5 Mg Tablet, 5 MG PO TID, (Reported) Prednisone (Prednisone) 5 Mg Tablet, 5 MG PO DAILY, (Reported) Saccharomyces Boulardii (Florastor) 250 Mg Capsule, 250 MG PO BID, (Reported) Senna (Senna Lax) 8.6 Mg Tablet, 1 TAB PO DAILY, (Reported) Thiamine HCl (Thiamine HCl) 100 Mg Tablet, 100 MG PO DAILY, (Reported) Tiotropium [place] Monohydrate (Spiriva) 18 Mcg Cap.w.dev, 18 MCG INH DAILY, (Reported) Trazodone HCl (Trazodone HCl) 100 Mg Tablet, 100 MG PO QHS, (Reported) Scheduled PRN Acetaminophen (Acetaminophen) 325 Mg Tablet, 650 MG PO Q4H PRN for PAIN, (Reported) Albuterol Sulfate (Ventolin Hfa) 18 Gm Hfa.aer.ad, 2 PUFF INH Q4H PRN for SHORTNESS OF BREATH, (Reported) Bisacodyl (Bisacodyl) 10 Mg Supp.rect, 10 MG NM DAILY PRN for CONSTIPATION, (Reported) Nicotine (Nicotrol) 10 Mg Cartridge, 1 PUFF INH Q2H PRN for NICOTINE WITHDRAWAL, (Reported) Sorbitol Solution (Sorbitol 70%) 1 Ml Solution, 30 ML PO DAILY PRN for CONSTIPATION, (Reported) Sumatriptan Succinate (Sumatriptan Succinate) 25 Mg Tablet, 25 MG PO Q12H PRN for MIGRAINE, (Reported) Allergies Coded Allergies: Sulfa (Sulfonamide Antibiotics) (Verified Allergy, Intermediate, RASH AND HIVES, 10/18/20) cephalexin (Verified Allergy, Intermediate, hives, 10/18/20) erythromycin base (Verified Allergy, Intermediate, hives/rash, 10/18/20) latex (Verified Allergy, Intermediate, hives, 10/18/20) levofloxacin (Verified Allergy, Intermediate, hives/rash, 10/18/20) lisinopril (Verified Allergy, Intermediate, hives/rash, 10/18/20) sulfamethoxazole (Verified Allergy, Intermediate, hives/rash, 10/18/20) eszopiclone (Verified Allergy, Mild, rash, 10/18/20) metoclopramide (Verified Allergy, Unknown, 10/18/20) omeprazole (Verified Allergy, Unknown, 10/18/20) bupropion (Verified Adverse Reaction, Mild, nausea, 10/18/20) trimethoprim (Verified Adverse Reaction, Mild, nausea/vomitting, 10/18/20) NATE ROBLEDO DO Oct 19, 2020 09:47
[2020-10-19] MEDS ORDERED: ONDANSETRON 4 MG TAB PO ONE (10:00)
[2020-10-19 10:54] VITALS: BP 157/98
[2020-10-19] MEDS ORDERED: FLOR250C PO (11:59)
[2020-10-19] MEDS ORDERED: MAGN400T3 PO (11:59)
[2020-10-19] MEDS ORDERED: SUMA25TA3 PO (11:59)
[2020-10-19] MEDS ORDERED: TIOT18INH INH (11:59)
[2020-10-19] MEDS ORDERED: VITMTA PO (11:59)
[2020-10-19] MEDS ORDERED: THIA100T7 PO (11:59)
[2020-10-19] MEDS ORDERED: FOLI1TAB11 PO (11:59)
[2020-10-19] MEDS ORDERED: ACET-908 PO (11:59)
[2020-10-19] MEDS ORDERED: NICOINH INH (11:59)
[2020-10-19] MEDS ORDERED: SORB70SO36 PO (11:59)
[2020-10-19] MEDS ORDERED: VENTAER INH (11:59)
[2020-10-19] MEDS ORDERED: SENN18TA PO (11:59)
[2020-10-19] MEDS ORDERED: BISA10SU4 PR (11:59)
[2020-10-19] MEDS ORDERED: CYAN100050 PO (11:59)
[2020-10-19] MEDS ORDERED: ALBUTEROL 90 MCG/ACT 8GM HFA INHALER INH PRN (12:15)
[2020-10-19] MEDS ORDERED: SUMAtriptan SUCCINATE 25 MG TAB PO PRN (12:15)
--- NOTE | 2020-10-19 13:13 | DS.PDOC ---
Discharge Summary General Date of Admission Oct 18, 2020 at 18:09 Date of Discharge 10/19/2020 Discharge Summary PROCEDURES PERFORMED DURING STAY: [None]. ADMITTING DIAGNOSES: 1. Homelessness DISCHARGE DIAGNOSES: 1. Homelessness COMPLICATIONS/CHIEF COMPLAINT: Homelessness. HISTORY OF PRESENT ILLNESS: From H&P:40-year-old female presents to the hospital for homelessness. She was a resident at [facility] assisted living for the past 1 year but yesterday she left because she didn't like it there. She went to [facility] who referred her to victims assistance who referred her to the hospital. The hospital social media marketer attempted to work with her Renay stephen however she was unable to assist her with placement from the ED. Patient has no active medical problems and is being admitted for homelessness and inability to care for self. This includes cooking at home and finances per patient. Patient has no complaints feels well and just wants help for her homelessness. HOSPITAL COURSE: 40-year-old female presents to the hospital for homelessness. Social work for placement. No active medical problems. Social work was consulted to help with homelessness. Patient has no active medical problems and is in ALC status. Psychiatry was consulted to evaluate and manage her psychiatric problems and resume her meds as appropriate. Daily blood work not necessary. Home meds will be resumed for chronic medical problems. DISCHARGE MEDICATIONS: Please see below. ALLERGIES: Please see below. PHYSICAL EXAMINATION ON DISCHARGE: Constitutional: Awake and alert, in no apparent distress ENT: Sclera are clear. Mucosa is moist. Respiratory: Lungs CTA bilaterally. No respiratory distress. No use of acce ssory muscles. Cardiovascular: RRR S1 and S2 are normal, no murmur Gastrointestinal: Abdomen is soft, non distended, non tender, BS present. Obese Musculoskeletal: No edema. Neurologic: No focal neurological deficit. Mental Status: A&O x3, normal affect answering all questions appropriately Skin: Warm, dry, LABORATORY DATA: Please see below. IMAGING: None PROGNOSIS: Fair ACTIVITY: [As tolerated]. DIET: Low-fat low-cholesterol diet DISCHARGE PLAN: New residence DISCHARGE INSTRUCTIONS: Please follow up with your primary care physician within 1 week from discharge. If you do not have one, please follow up with us to schedule an appointment. Please keep all of your follow up appointments. Please call central to book your appointments with hospital specialists. Please take all your medications as prescribed. Please call/come to Clinic or go to the Emergency Department if - Temp >101, intractable Nausea/Vomiting, Diarrhea, Mouth sores, Headaches, Altered mental status, Seizures, sudden onset of swelling, bleeding, shortness of breath or chest pain. ITEMS TO FOLLOWUP ON ON OUTPATIENT: See her primary care doctor within 1-3 days of discharge DISCHARGE CONDITION: [Stable]. TIME SPENT ON DISCHARGE: 20 minutes. Vital Signs/I&Os Vital Signs Date Time Temp Pulse Resp B/P (MAP) Pulse Ox O2 Delivery O2 Flow Rate FiO2 10/19/20 10:54 97 157/98 10/19/20 06:00 98.6 18 99 Room Air I&O- Last 24 Hours up to 6 AM 10/19/20 06:00 Intake Total 0 ml Output Total 200 ml Balance -200 ml Laboratory Data Labs 24H Laboratory Tests 2 10/18/20 14:34: Urine Opiates Screen NEGATIVE, Urine Methadone Screen NEGATIVE, Urine Bar biturates Screen NEGATIVE, Urine Phencyclidine Screen NEGATIVE, Urine Amphetamines Screen NEGATIVE, Urine Benzodiazepines Screen NEGATIVE, Urine Cocaine Metabolite Screen NEGATIVE, Urine Cannabinoids Screen NEGATIVE 10/18/20 21:50: Coronavirus (COVID-19)(PCR) NEGATIVE 10/19/20 11:34: Discharge Medications Scheduled Baclofen (Baclofen) 10 Mg Tablet, 10 MG PO BID, (Reported) Buspirone HCl (Buspirone HCl) 10 Mg Tablet, 10 MG PO BID, (Reported) Calcitriol (Calcitriol) 0.25 Mcg Capsule, 0.25 MCG PO DAILY, (Reported) Cyanocobalamin (Vitamin B-12) (Vitamin B-12) 1,000 Mcg Tablet, 1,000 MCG PO TID, (Reported) Doxepin HCl (Doxepin HCl) 25 Mg Capsule, 25 MG PO BID, (Reported) Duloxetine Hcl (Duloxetine HCl) 30 Mg Capsule.dr, 30 MG PO DAILY, (Reported) Folic Acid (Folic Acid) 1 Mg Tablet, 1 MG PO DAILY, (Reported) Gabapentin (Gabapentin) 400 Mg Capsule, 400 MG PO TID, (Reported) Hydroxychloroquine Sulfate (Hydroxychloroquine Sulfate) 200 Mg Tablet, 200 MG PO BID, (Reported) Levetiracetam (Keppra) 500 Mg Tablet, 500 MG PO BID, (Reported) Levothyroxine Sodium (Levothyroxine Sodium) 25 Mcg Tablet, 12.5 MCG PO DAILY, (Reported) Magnesium Oxide (Magnesium Oxide) 400 Mg Tablet, 400 MG PO DAILY, (Reported) Methotrexate Sodium (Methotrexate) 2.5 Mg Tablet, 7.5 MG PO QWEEK, (Reported) MONDAYS Metoprolol Tartrate (Metoprolol Tartrate) 50 Mg Tablet, 50 MG PO BID, (Reported) Multivitamins (Thera M Plus Tablet) 1 Each Tablet, 1 TAB PO DAILY, (Reported) Pentoxifylline (Pentoxifylline) 400 Mg Tablet.er, 400 MG PO BID, (Reported) Pilocarpine HCl (Salagen) 5 Mg Tablet, 5 MG PO TID, (Reported) Prednisone (Prednisone) 5 Mg Tablet, 5 MG PO DAILY, (Reported) Saccharomyces Boulardii (Florastor) 250 Mg Capsule, 250 MG PO BID, (Reported) Senna (Senna Lax) 8.6 Mg Tablet, 1 TAB PO DAILY, (Reported) Thiamine HCl (Thiamine HCl) 100 Mg Tablet, 100 MG PO DAILY, (Reported) Tiotropium [place] Monohydrate (Spiriva) 18 Mcg Cap.w.dev, 18 MCG INH DAILY, (Reported) Trazodone HCl (Trazodone HCl) 100 Mg Tablet, 100 MG PO QHS, (Reported) Scheduled PRN Acetaminophen (Acetaminophen) 325 Mg Tablet, 650 MG PO Q4H PRN for PAIN, (Reported) Albuterol Sulfate (Ventolin Hfa) 18 Gm Hfa.aer.ad, 2 PUFF INH Q4H PRN for SHORTNESS OF BREATH, (Reported) Bisacodyl (Bisacodyl) 10 Mg Supp.rect, 10 MG RI DAILY PRN for CONSTIPATION, (Reported) Nicotine (Nicotrol) 10 Mg Cartridge, 1 PUFF INH Q2H PRN for NICOTINE WITHDRAWAL, (Reported) Sorbitol Solution (Sorbitol 70%) 1 Ml Solution, 30 ML PO DAILY PRN for CONSTIPATION, (Reported) Sumatriptan Succinate (Sumatriptan Succinate) 25 Mg Tablet, 25 MG PO Q12H PRN for MIGRAINE, (Reported) Allergies Coded Allergies: Sulfa (Sulfonamide Antibiotics) (Verified Allergy, Intermediate, RASH AND HIVES, 10/18/20) cephalexin (Verified Allergy, Intermediate, hives, 10/18/20) erythromycin base (Verified Allergy, Intermediate, hives/rash, 10/18/20) latex (Verified Allergy, Intermediate, hives, 10/18/20) levofloxacin (Verified Allergy, Intermediate, hives/rash, 10/18/20) lisinopril (Verified Allergy, Intermediate, hives/rash, 10/18/20) sulfamethoxazole (Verified Allergy, Intermediate, hives/rash, 10/18/20) eszopiclone (Verified Allergy, Mild, rash, 10/18/20) metoclopramide (Verified Allergy, Unknown, 10/18/20) omeprazole (Verified Allergy, Unknown, 10/18/20) bupropion (Verified Adverse Reaction, Mild, nausea, 10/18/20) trimethoprim (Verified Adverse Reaction, Mild, nausea/vomitting, 10/18/20) CHAPO ALCALA MD Oct 19, 2020 13:13
[2020-10-19] MEDS ORDERED: SORBITOL 70% 30ML UNIT DOSE CUP PO PRN (13:15)
[2020-10-19] MEDS ORDERED: ACETAMINOPHEN TAB 650MG DOSE (2X325MG) PO PRN (13:15)
[2020-10-19] MEDS ORDERED: BISACODYL 10 MG SUPP PR PRN (13:15)
[2020-10-19 14:00] VITALS: BP 137/87
[2020-10-19] MEDS ORDERED: ALPRAZolam 0.5 MG TAB PO ONE (14:30)
[2020-10-19] MEDS ORDERED: DOXEPIN 25 MG CAP PO SCH (21:00)
[2020-10-19] MEDS ORDERED: PENTOXIFYLLINE 400 MG TAB PO SCH (21:00)
[2020-10-19] MEDS ORDERED: traZODone 100 MG TAB PO SCH (21:00)
[2020-10-19] MEDS ORDERED: busPIRone 10 MG TAB PO SCH (21:00)
[2020-10-20] MEDS ORDERED: LEVOTHYROXINE 12.5MCG PER 1/2 TAB (0.0125MG) PO SCH (06:00)
[2020-10-20] MEDS ORDERED: CALCITRIOL 0.25 MCG CAP (S0169) PO SCH (09:00)
[2020-10-20] MEDS ORDERED: FOLIC ACID 1 MG TAB PO SCH (09:00)
[2020-10-20] MEDS ORDERED: THIAMINE 100 MG TAB PO SCH (09:00)
[2020-10-20] MEDS ORDERED: MAGNESIUM OXIDE 400 MG TAB (MAG-OX) PO SCH (09:00)
[2020-10-23] MEDS ORDERED: METHOTREXATE 2.5 MG TAB (J8610 PER 2.5MG) PO SCH (09:00)
== END 2020-10-19 16:25 | DRG 951 ==
LOC: M ED 12:12 → M ED INP 18:09 → ENRESERV 10-19 00:20 → M MSPAV 10-19 03:13
PROVIDERS: ADMIT Family Medicine; ATTEND Family Medicine
DX: Z59.0 Homelessness (principal); Z79.899 Other long term (current) drug therapy; Z88.2 Allergy status to sulfonamides; Z88.8 Allergy status to other drugs, medicaments and biological substances; Z91.040 Latex allergy status; F79 Unspecified intellectual disabilities; F41.9 Anxiety disorder, unspecified; M79.7 Fibromyalgia; G43.909 Migraine, unspecified, not intractable, without status migrainosus; I10 Essential (primary) hypertension; K21.9 Gastro-esophageal reflux disease without esophagitis; M06.9 Rheumatoid arthritis, unspecified; F31.9 Bipolar disorder, unspecified; M35.00 Sjogren syndrome, unspecified

== ENCOUNTER 2020-12-01 05:08 | Emergency (ER) | payer MEDICARE, MEDICAID ==
[~2020-12-01] VITALS: Ht 170.2 cm; Wt 90.9 kg
[~2020-12-01 05:08] MED LIST changes: +ACET-908 PO; +BACL1TAB8 PO; +BISA10SU4 PR; +BUSP10TA PO; +CALC1CAP31 PO; +CYAN100050 PO; +FLOR250C PO; +GABA-282 PO; -GABA-843 PO; +KEPP1TAB PO; +LEVO25TA5 PO; +MAGN400T3 PO; +MED REC COMMENT; +METH-1165 PO; -METH750T2 PO; +METO50TA7 PO; +MONT10TA10 PO; -MONT5TAB2 PO; +NICOINH INH; +PENT400T23 PO; +PRED5TA PO; +SENN18TA PO; +SORB70SO36 PO; +SUMA25TA3 PO; +THIA100T7 PO; +TRAZ-257 PO
--- OUTSIDE RECORDS SUMMARY | 2020-12-01 05:14 | CCD ---
Author Author Madhavi Rasmussen Organization Unknown Address [address] Phone Unavailable Care Team Providers Care Sales And Leasing Agent Name Role Phone Dr. Bunny Fernandez Unavailable Unavailable Advance directives Directive Description Status Other Directive Refer to [facility] Current and Verified Allergies Type Substance Reaction Status drug intolerance Bupropion Nausea Active drug allergy Erythromycin Active drug allergy Levofloxacin Active drug allergy Lisinopril Active drug allergy Azithromycin Active drug allergy Cephalexin Active propensity to adverse reactions Latex Active drug intolerance Lunesta Active drug allergy Metoclopramide Active drug allergy Omeprazole Active drug allergy Sulfa Antibiotics Active Problems Problem Effective Dates Problem Status Wernicke's disease (disorder) 10/05/2019 Active K58.8 OTHER IRRITABLE BOWEL SYNDROME 10/05/2019 Act adelia F33.9 MAJOR DEPRESSIVE DISORDER, RECURRENT, UNSPECIFIED 09/17 Active 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 10/05/2019 Active N30.90 CYSTITIS, UNSPECIFIED WITHOUT HEMATURIA 04/02/2020 Active I10 ESSENTIAL (PRIMARY) HYPERTENSION 10/05/2019 Act adelia 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 M62.81 MUSCLE WEAKNESS (GENERALIZED) 10/06/2019 Act adelia M79.7 FIBROMYALGIA 10/05/2019 Active M35.00 SICCA SYNDROME, UNSPECIFIED 04/02/2020 Activ e N39.0 URINARY TRACT INFECTION, SITE NOT SPECIFIED 04/02/2020 Active R41.841 COGNITIVE COMMUNICATION DEFICIT 10/07/2019 Active G40.89 OTHER SEIZURES 10/05/2019 Active Anorexia nervosa (disorder) 10/05/2019 Active N13.9 OBSTRUCTIVE AND REFLUX UROPATHY, UNSPECIFIED 0 Active I69.828 OTHER SPEECH AND LANGUAGE DEFICI TS FOLLOWING OTHER CEREBROVASCULAR DISEASE 10/07/2019 Active D64.9 ANEMIA, UNSPECIFIED 10/05/2019 Active J45.998 OTHER ASTHMA 10/05/2019 Active F41.9 ANXIETY DISORDER, UNSPECIFIED 04/02/2020 Acti ve M62.59 MUSCLE WASTING AND ATROPHY, NOT ELSEWHERE CLASS IFIED, MULTIPLE SITES 10/06/2019 Active R26.89 OTHER ABNORMALITIES OF GAIT AND MOBILITY 12/05/2019 Active Procedures No Known Procedures Medications Medication Dose Form Route Sig Text Dates Status Albuterol Sulfate HFA Aerosol Solution 108 (90 Base) MCG/ACT 2 puff Aerosol Solution Inhalation 2 PUFF INHALE ORALLY NEED ED FOR SHORTNESS OF BREATH/ WHEEZING 4 TIMES A DAY 06/12/2020 17:15:00 Zinc-220 Capsule 220 mg Capsule Oral GIVE 1 CAPS ULE BY MOUTH IN THE EVENING FOR SUPPLEMENT 06/13/2020 16:00:00 09/26/2020 12:51:00 Aborted Baclofen Tablet 10 MG 10 mg Tablet Oral GIVE 1 TABLET BY MOUTH TWICE DAILY FOR MUSCLE SPASM 06/13/2020 7:00:00 Keppra Tablet 500 MG 500 mg Tablet Oral GIVE 1 TABLET BY MOUTH TWICE DAILY FOR SEIZURES 06/13/2020 7:00:00 Symbicort Aerosol 160-4.5 MCG/ACT 2 puff Aerosol Inhalat ion INHALE 2 PUFFS BY MOUTH TWICE DAILY FOR COPD 06/13/2020 7:00:00 08/27/2020 11:22:00 Aborted Folic Acid Tablet 1 MG 1 mg Tablet Oral GIVE 1 TABLET BY MOUTH IN THE MORNING FOR SUPPLEMENT 06/13/2020 7:00:00 Thiamine HCl Tablet 100 MG 100 mg Tablet Oral G ADELIA 1 TABLET BY MOUTH IN THE MORNING FOR SUPPLEMENT 06/13/2020 7:00:00 Florastor Capsule 250 MG 250 mg Capsule Oral GIV E 1 CAPSULE BY MOUTH TWICE DAILY FOR PROPHYLAXIS 06/13/2020 7:00:00 Plaquenil Tablet 200 MG 200 mg Tablet Oral GIVE 1 TABLET BY MOUTH ONE TIME A DAY FOR ARTHRITIS 06/13/2020 8:00:00 07/26/2020 14:40:00 Aborted Pentoxifylline ER Tablet Extended Release 400 MG 1 tablet Tablet Extended Release Oral GIVE 1 TABLET BY MOUTH TWICE DAILY FOR BLOOD CIRCULATION 06/13/2020 7:00:00 Lopressor Tablet 50 MG 50 mg Tablet Oral GIVE 1 TABLET BY MOUTH EVERY 12 HOURS FOR HTN 06/12/2020 20:00:00 Calcitriol Capsule 0.25 MCG 0.25 mcg Capsule Oral GIVE 1 CAPSULE BY MOUTH AT BEDTIME FOR SUPPLEMENT 06/12/2020 20:00:00 Spiriva HandiHaler Capsule 18 MCG 1 dose Capsule Inhalat ion INHALE CONTENTS OF 1 CAPSULE BY MOUTH IN THE MORNING FOR COPD 06/13/2020 7:00:00 busPIRone HCl Tablet 10 MG 10 mg Tablet Oral G ADELIA 1 TABLET BY MOUTH TWICE DAILY FOR ANXIETY 06/13/2020 7:00:00 Acetaminophen Tablet 325 MG Tablet Oral Give 650 mg by mouth every 4 hours as needed for Elevated Temperature Do not dispense more than 3 grams in 24 hour AND Give 650 mg by mouth every 4 hours as needed for Pain not to exceed 3 grams with in 24 hours 06/12/2020 16:17:00 traZODone HCl Tablet 100 MG 100 mg Tablet Oral GIVE 1 TABLET BY MOUTH AT BEDTIME FOR DEPRESSION 06/12/2020 20:00:00 Magnesium Oxide Tablet 400 mg Tablet Oral GIVE 1 TABLET BY MOUTH IN THE AFTERNOON FOR SUPPLEMENT 06/13/2020 12:00:00 Sorbitol Solution 70 % 30 cc Solution Oral Give 30 cc by mouth every 24 hours as needed for Constipation 06/12/2020 16:17:00 Cyanocobalamin Tablet 500 MCG 1000 mcg Tablet Oral GIVE 2 TABLETS (1000MCG) BY MOUTH THREE TIMES A DAY FOR SUPPLEMENT 06/12/2020 20:00:00 Doxepin HCl Capsule 25 MG 25 mg Capsule Oral GI VE 1 CAPSULE BY MOUTH TWICE DAILY FOR DEPRESSION 06/13/2020 7:00:00 Multi-Day Plus Minerals Tablet 1 tablet Tablet Oral GIVE 1 TABLET BY MOUTH IN THE MORNING FOR SUPPLEMENT 06/13/2020 7:00:00 Biscolax Suppository 10 MG 10 mg Suppository Rectal I NSERT 10 MG RECTALLY EVERY 24 HOURS NEEDED FOR GIVE IF NO RESULTS FROM SORBITOL 06/19/2020 13:45:00 predniSONE Tablet 5 MG 5 mg Tablet Oral GIVE 1 TABLET BY MOUTH ONE TIME A DAY FOR LUPUS, SJOGRENS 06/27/2020 8:00:00 Nicotine Inhaler 10 MG 2 puff Inhaler Inhalation 2 PUF F INHALE ORALLY EVERY 2 HOURS NEEDED FOR SMOKING CESSATION 06/26/2020 16:15:00 Ondansetron HCl Solution 4 MG/2ML 2 ml Solution Injecti on INJECT 2 ML INTRAMUSCULARLY EVERY 6 HOURS NEEDED FOR NAUSEA/VOMITING 06/28/2020 19:00:00 Levothyroxine Sodium Tablet 12.5 mcg Tablet Oral GIVE ONE HALF TABLET (12.5 MCG) BY MOUTH ONE TIME A DAY FOR HYPOTHYROIDISM 07/17/2020 8:00:00 Pilocarpine HCl Tablet 5 MG 1 tablet Tablet Oral GIVE 1 TABLET BY MOUTH THREE TIMES A DAY FOR PREVENTATIVE 07/26/2020 20:00:00 SUMAtriptan Succinate Tablet 25 mg Tablet Oral GIVE 1 TABLET BY MOUTH EVERY 12 HOURS NEEDED FOR NEEDED HEADACHE 07/26/2020 16:15:00 Methotrexate Sodium Tablet 2.5 MG 3 tablet Tablet Oral GIVE 3 TABLETS BY MOUTH ONE TIME A DAY EVERY MON FOR RHEUMATOID ARTHRITIS 07/30/2020 8:00:00 Gabapentin Capsule 400 MG 1 capsule Capsule Oral GI VE 1 CAPSULE BY MOUTH THREE TIMES A DAY FOR PAIN 07/26/2020 20:00:00 Plaquenil Tablet 200 MG 200 mg Tablet Oral GIVE 1 TABLET BY MOUTH TWICE DAILY FOR ARTHRITIS 07/27/2020 7:00:00 SennaCon Tablet 8.6 mg Tablet Oral GIVE 1 TABLE T BY MOUTH ONE TIME A DAY FOR CONSTIPATION 08/10/2020 8:00:00 DULoxetine HCl Capsule Delayed Release Sprinkle 30 MG 1 caps ule Capsule Delayed Release Sprinkle Oral GIVE 1 CAPSULE BY MOUTH IN THE MORNING F OR DEPRESSION 09/13/2020 7:00:00 Results No Known Results Vital signs Description Observation Date RESPIRATION RATE 18.0 /min 07/19/2020 21:50:53 INTRAVASCULAR SYSTOLIC 116.0 mm[Hg] 07/19/2020 21:50: 53 INTRAVASCULAR DIASTOLIC 66.0 mm[Hg] 07/19/2020 21:50 :53 BODY TEMPERATURE 98.0 [degF] 07/19/2020 21:50:53 HEART BEAT 68.0 {beats}/min 07/19/2020 21:50:53 OXYGEN SATURATION 98.0 % 07/19/2020 21:50:53 BODY TEMPERATURE 99.1 [degF] 07/20/2020 6:24:00 BODY TEMPERATURE 98.2 [degF] 07/20/2020 6:41:00 PAIN LEVEL 2.0 {score} 07/20/2020 7:33:14 PAIN LEVEL 0.0 {score} 07/20/2020 9:39:29 BODY TEMPERATURE 97.8 [degF] 07/20/2020 16:10:00 RESPIRATION RATE 18.0 /min 07/20/2020 16:42:51 INTRAVASCULAR SYSTOLIC 109.0 mm[Hg] 07/20/2020 16:42: 51 INTRAVASCULAR DIASTOLIC 74.0 mm[Hg] 07/20/2020 16:42 :51 BODY TEMPERATURE 97.8 [degF] 07/20/2020 16:42:51 HEART BEAT 72.0 {beats}/min 07/20/2020 16:42:51 OXYGEN SATURATION 98.0 % 07/20/2020 16:42:51 PAIN LEVEL 1.0 {score} 07/20/2020 16:43:57 PAIN LEVEL 0.0 {score} 07/20/2020 20:20:29 BODY TEMPERATURE 98.0 [degF] 07/20/2020 23:54:00 BODY TEMPERATURE 98.7 [degF] 07/21/2020 18:29:00 RESPIRATION RATE 16.0 /min 07/21/2020 19:11:13 INTRAVASCULAR SYSTOLIC 120.0 mm[Hg] 07/21/2020 19:11: 13 INTRAVASCULAR DIASTOLIC 80.0 mm[Hg] 07/21/2020 19:11 :13 BODY TEMPERATURE 98.7 [degF] 07/21/2020 19:11:13 HEART BEAT 66.0 {beats}/min 07/21/2020 19:11:13 OXYGEN SATURATION 99.0 % 07/21/2020 19:11:13 BODY TEMPERATURE 97.0 [degF] 07/22/2020 4:39:00 RESPIRATION RATE 18.0 /min 07/22/2020 17:59:06 INTRAVASCULAR SYSTOLIC 101.0 mm[Hg] 07/22/2020 17:59: 06 INTRAVASCULAR DIASTOLIC 66.0 mm[Hg] 07/22/2020 17:59 :06 BODY TEMPERATURE 98.4 [degF] 07/22/2020 17:59:06 HEART BEAT 62.0 {beats}/min 07/22/2020 17:59:06 OXYGEN SATURATION 97.0 % 07/22/2020 17:59:06 BODY TEMPERATURE 98.4 [degF] 07/22/2020 18:17:00 BODY TEMPERATURE 98.1 [degF] 07/23/2020 2:56:00 BODY WEIGHT (MEASURED) 167.0 [lb_av] 07/23/2020 10:19: 00 BODY TEMPERATURE 98.4 [degF] 07/23/2020 13:34:00 BODY TEMPERATURE 98.6 [degF] 07/23/2020 16:29:00 RESPIRATION RATE 18.0 /min 07/23/2020 16:32:03 INTRAVASCULAR SYSTOLIC 117.0 mm[Hg] 07/23/2020 16:32: 03 INTRAVASCULAR DIASTOLIC 71.0 mm[Hg] 07/23/2020 16:32 :03 BODY TEMPERATURE 98.6 [degF] 07/23/2020 16:32:03 HEART BEAT 71.0 {beats}/min 07/23/2020 16:32:03 OXYGEN SATURATION 98.0 % 07/23/2020 16:32:03 PAIN LEVEL 1.0 {score} 07/23/2020 16:33:48 PAIN LEVEL 1.0 {score} 07/23/2020 19:21:07 BODY TEMPERATURE 98.6 [degF] 07/24/2020 4:44:00 BODY TEMPERATURE 99.2 [degF] 07/24/2020 7:27:00 PAIN LEVEL 2.0 {score} 07/24/2020 9:48:43 PAIN LEVEL 0.0 {score} 07/24/2020 10:25:15 PAIN LEVEL 1.0 {score} 07/24/2020 16:00:15 BODY TEMPERATURE 98.9 [degF] 07/24/2020 16:30:00 RESPIRATION RATE 18.0 /min 07/24/2020 16:46:15 INTRAVASCULAR SYSTOLIC 105.0 mm[Hg] 07/24/2020 16:46: 15 INTRAVASCULAR DIASTOLIC 66.0 mm[Hg] 07/24/2020 16:46 :15 BODY TEMPERATURE 98.9 [degF] 07/24/2020 16:46:15 HEART BEAT 61.0 {beats}/min 07/24/2020 16:46:15 OXYGEN SATURATION 98.0 % 07/24/2020 16:46:15 PAIN LEVEL 1.0 {score} 07/24/2020 20:51:50 BODY TEMPERATURE 98.3 [degF] 07/25/2020 1:08:00 BODY TEMPERATURE 98.8 [degF] 07/25/2020 7:29:00 RESPIRATION RATE 18.0 /min 07/25/2020 14:09:53 INTRAVASCULAR SYSTOLIC 110.0 mm[Hg] 07/25/2020 14:09: 53 INTRAVASCULAR DIASTOLIC 60.0 mm[Hg] 07/25/2020 14:09 :53 BODY TEMPERATURE 98.1 [degF] 07/25/2020 14:09:53 HEART BEAT 60.0 {beats}/min 07/25/2020 14:09:53 OXYGEN SATURATION 97.0 % 07/25/2020 14:09:53 PAIN LEVEL 6.0 {score} 07/25/2020 19:45:48 PAIN LEVEL 2.0 {score} 07/25/2020 22:09:17 BODY TEMPERATURE 98.6 [degF] 07/26/2020 3:34:00 BODY TEMPERATURE 98.4 [degF] 07/26/2020 9:37:00 BODY TEMPERATURE 98.3 [degF] 07/26/2020 16:01:00 PAIN LEVEL 1.0 {score} 07/26/2020 16:11:46 RESPIRATION RATE 18.0 /min 07/26/2020 16:16:42 INTRAVASCULAR SYSTOLIC 115.0 mm[Hg] 07/26/2020 16:16: 42 INTRAVASCULAR DIASTOLIC 73.0 mm[Hg] 07/26/2020 16:16 :42 BODY TEMPERATURE 98.3 [degF] 07/26/2020 16:16:42 HEART BEAT 62.0 {beats}/min 07/26/2020 16:16:42 OXYGEN SATURATION 97.0 % 07/26/2020 16:16:42 PAIN LEVEL 2.0 {score} 07/26/2020 20:19:20 BODY TEMPERATURE 98.8 [degF] 07/27/2020 16:08:00 RESPIRATION RATE 18.0 /min 07/27/2020 16:50:43 INTRAVASCULAR SYSTOLIC 99.0 mm[Hg] 07/27/2020 16:50: 43 INTRAVASCULAR DIASTOLIC 62.0 mm[Hg] 07/27/2020 16:50 :43 BODY TEMPERATURE 98.8 [degF] 07/27/2020 16:50:43 HEART BEAT 72.0 {beats}/min 07/27/2020 16:50:43 OXYGEN SATURATION 97.0 % 07/27/2020 16:50:43 BODY TEMPERATURE 98.8 [degF] 07/28/2020 2:27:00 PAIN LEVEL 3.0 {score} 07/28/2020 6:32:55 PAIN LEVEL 0.0 {score} 07/28/2020 7:00:53 BODY TEMPERATURE 98.8 [degF] 07/28/2020 10:30:00 RESPIRATION RATE 18.0 /min 07/28/2020 14:06:24 INTRAVASCULAR SYSTOLIC 110.0 mm[Hg] 07/28/2020 14:06: 24 INTRAVASCULAR DIASTOLIC 60.0 mm[Hg] 07/28/2020 14:06 :24 BODY TEMPERATURE 98.0 [degF] 07/28/2020 14:06:24 HEART BEAT 60.0 {beats}/min 07/28/2020 14:06:24 OXYGEN SATURATION 97.0 % 07/28/2020 14:06:24 BODY TEMPERATURE 97.6 [degF] 07/29/2020 3:05:00 PAIN LEVEL 2.0 {score} 07/29/2020 7:01:23 PAIN LEVEL 0.0 {score} 07/29/2020 10:06:33 BODY TEMPERATURE 97.9 [degF] 07/29/2020 10:47:00 RESPIRATION RATE 16.0 /min 07/29/2020 17:48:20 INTRAVASCULAR SYSTOLIC 98.0 mm[Hg] 07/29/2020 17:48: 20 INTRAVASCULAR DIASTOLIC 56.0 mm[Hg] 07/29/2020 17:48 :20 BODY TEMPERATURE 98.4 [degF] 07/29/2020 17:48:20 HEART BEAT 83.0 {beats}/min 07/29/2020 17:48:20 OXYGEN SATURATION 99.0 % 07/29/2020 17:48:20 BODY TEMPERATURE 98.4 [degF] 07/29/2020 17:51:00 BODY TEMPERATURE 98.7 [degF] 07/30/2020 0:13:00 PAIN LEVEL 0.0 {score} 07/30/2020 0:29:45 BODY TEMPERATURE 98.1 [degF] 07/30/2020 7:22:00 RESPIRATION RATE 16.0 /min 07/30/2020 14:38:31 INTRAVASCULAR SYSTOLIC 110.0 mm[Hg] 07/30/2020 14:38: 31 INTRAVASCULAR DIASTOLIC 60.0 mm[Hg] 07/30/2020 14:38 :31 HEART BEAT 84.0 {beats}/min 07/30/2020 14:38:31 OXYGEN SATURATION 99.0 % 07/30/2020 14:38:31 BODY TEMPERATURE 98.3 [degF] 07/30/2020 23:58:00 BODY TEMPERATURE 98.6 [degF] 07/31/2020 7:36:00 BODY TEMPERATURE 98.3 [degF] 07/31/2020 15:06:00 RESPIRATION RATE 18.0 /min 07/31/2020 16:13:33 INTRAVASCULAR SYSTOLIC 101.0 mm[Hg] 07/31/2020 16:13: 33 INTRAVASCULAR DIASTOLIC 71.0 mm[Hg] 07/31/2020 16:13 :33 HEART BEAT 81.0 {beats}/min 07/31/2020 16:13:33 OXYGEN SATURATION 98.0 % 07/31/2020 16:13:33 BODY TEMPERATURE 98.3 [degF] 08/01/2020 3:00:00 BODY TEMPERATURE 98.6 [degF] 08/01/2020 4:04:00 BODY TEMPERATURE 98.4 [degF] 08/01/2020 9:45:00 RESPIRATION RATE 18.0 /min 08/01/2020 15:48:16 INTRAVASCULAR SYSTOLIC 112.0 mm[Hg] 08/01/2020 15:48: 16 INTRAVASCULAR DIASTOLIC 71.0 mm[Hg] 08/01/2020 15:48 :16 HEART BEAT 75.0 {beats}/min 08/01/2020 15:48:16 OXYGEN SATURATION 99.0 % 08/01/2020 15:48:16 PAIN LEVEL 10.0 {score} 08/01/2020 20:48:34 PAIN LEVEL 0.0 {score} 08/01/2020 23:12:28 BODY TEMPERATURE 98.6 [degF] 08/02/2020 7:33:00 RESPIRATION RATE 18.0 /min 08/02/2020 14:44:28 INTRAVASCULAR SYSTOLIC 114.0 mm[Hg] 08/02/2020 14:44: 28 INTRAVASCULAR DIASTOLIC 70.0 mm[Hg] 08/02/2020 14:44 :28 HEART BEAT 76.0 {beats}/min 08/02/2020 14:44:28 OXYGEN SATURATION 99.0 % 08/02/2020 14:44:28 PAIN LEVEL 10.0 {score} 08/02/2020 19:37:12 PAIN LEVEL 0.0 {score} 08/02/2020 21:46:45 BODY TEMPERATURE 98.4 [degF] 08/03/2020 1:20:00 BODY TEMPERATURE 98.6 [degF] 08/03/2020 7:29:00 BODY TEMPERATURE 98.6 [degF] 08/03/2020 16:04:00 RESPIRATION RATE 18.0 /min 08/03/2020 16:55:01 INTRAVASCULAR SYSTOLIC 99.0 mm[Hg] 08/03/2020 16:55: 01 INTRAVASCULAR DIASTOLIC 67.0 mm[Hg] 08/03/2020 16:55 :01 HEART BEAT 62.0 {beats}/min 08/03/2020 16:55:01 OXYGEN SATURATION 98.0 % 08/03/2020 16:55:01 BODY TEMPERATURE 98.6 [degF] 08/04/2020 1:50:00 RESPIRATION RATE 16.0 /min 08/04/2020 19:55:41 INTRAVASCULAR SYSTOLIC 103.0 mm[Hg] 08/04/2020 19:55: 41 INTRAVASCULAR DIASTOLIC 67.0 mm[Hg] 08/04/2020 19:55 :41 BODY TEMPERATURE 98.3 [degF] 08/04/2020 19:55:41 HEART BEAT 66.0 {beats}/min 08/04/2020 19:55:41 OXYGEN SATURATION 98.0 % 08/04/2020 19:55:41 PAIN LEVEL 10.0 {score} 08/05/2020 12:15:08 PAIN LEVEL 2.0 {score} 08/05/2020 13:04:50 RESPIRATION RATE 16.0 /min 08/05/2020 15:59:23 INTRAVASCULAR SYSTOLIC 106.0 mm[Hg] 08/05/2020 15:59: 23 INTRAVASCULAR DIASTOLIC 65.0 mm[Hg] 08/05/2020 15:59 :23 BODY TEMPERATURE 97.9 [degF] 08/05/2020 15:59:23 HEART BEAT 68.0 {beats}/min 08/05/2020 15:59:23 OXYGEN SATURATION 98.0 % 08/05/2020 15:59:23 PAIN LEVEL 7.0 {score} 08/05/2020 19:32:43 PAIN LEVEL 0.0 {score} 08/05/2020 23:47:53 BODY TEMPERATURE 98.6 [degF] 08/06/2020 2:04:00 BODY TEMPERATURE 98.2 [degF] 08/06/2020 6:41:00 BODY TEMPERATURE 98.3 [degF] 08/06/2020 7:00:00 BODY TEMPERATURE 98.7 [degF] 08/06/2020 16:00:00 RESPIRATION RATE 18.0 /min 08/06/2020 17:22:44 INTRAVASCULAR SYSTOLIC 107.0 mm[Hg] 08/06/2020 17:22: 44 INTRAVASCULAR DIASTOLIC 73.0 mm[Hg] 08/06/2020 17:22 :44 HEART BEAT 80.0 {beats}/min 08/06/2020 17:22:44 OXYGEN SATURATION 97.0 % 08/06/2020 17:22:44 BODY TEMPERATURE 98.0 [degF] 08/07/2020 3:31:00 PAIN LEVEL 10.0 {score} 08/07/2020 4:50:21 PAIN LEVEL 0.0 {score} 08/07/2020 5:27:54 BODY TEMPERATURE 98.4 [degF] 08/07/2020 6:26:00 BODY TEMPERATURE 98.4 [degF] 08/07/2020 6:28:00 RESPIRATION RATE 16.0 /min 08/07/2020 15:52:11 INTRAVASCULAR SYSTOLIC 112.0 mm[Hg] 08/07/2020 15:52: 11 INTRAVASCULAR DIASTOLIC 70.0 mm[Hg] 08/07/2020 15:52 :11 BODY TEMPERATURE 98.3 [degF] 08/07/2020 15:52:11 HEART BEAT 76.0 {beats}/min 08/07/2020 15:52:11 OXYGEN SATURATION 97.0 % 08/07/2020 15:52:11 BODY TEMPERATURE 97.9 [degF] 08/07/2020 21:20:00 BODY TEMPERATURE 97.9 [degF] 08/08/2020 0:07:00 BODY TEMPERATURE 98.8 [degF] 08/08/2020 6:23:00 PAIN LEVEL 10.0 {score} 08/08/2020 7:55:12 PAIN LEVEL 6.0 {score} 08/08/2020 12:01:46 RESPIRATION RATE 18.0 /min 08/08/2020 19:20:30 INTRAVASCULAR SYSTOLIC 114.0 mm[Hg] 08/08/2020 19:20: 30 INTRAVASCULAR DIASTOLIC 73.0 mm[Hg] 08/08/2020 19:20 :30 BODY TEMPERATURE 98.3 [degF] 08/08/2020 19:20:30 HEART BEAT 78.0 {beats}/min 08/08/2020 19:20:30 OXYGEN SATURATION 99.0 % 08/08/2020 19:20:30 BODY TEMPERATURE 98.3 [degF] 08/08/2020 21:36:00 BODY TEMPERATURE 98.5 [degF] 08/08/2020 23:39:00 BODY TEMPERATURE 97.9 [degF] 08/09/2020 6:36:00 PAIN LEVEL 5.0 {score} 08/09/2020 15:58:30 RESPIRATION RATE 16.0 /min 08/09/2020 18:12:05 INTRAVASCULAR SYSTOLIC 96.0 mm[Hg] 08/09/2020 18:12: 05 INTRAVASCULAR DIASTOLIC 57.0 mm[Hg] 08/09/2020 18:12 :05 BODY TEMPERATURE 97.2 [degF] 08/09/2020 18:12:05 HEART BEAT 76.0 {beats}/min 08/09/2020 18:12:05 OXYGEN SATURATION 100.0 % 08/09/2020 18:12:05 PAIN LEVEL 4.0 {score} 08/09/2020 19:22:02 BODY TEMPERATURE 98.3 [degF] 08/10/2020 4:27:00 BODY TEMPERATURE 98.4 [degF] 08/10/2020 6:34:00 BODY TEMPERATURE 98.4 [degF] 08/10/2020 7:00:00 INTRAVASCULAR SYSTOLIC 107.0 mm[Hg] 08/10/2020 16:45: 58 INTRAVASCULAR DIASTOLIC 69.0 mm[Hg] 08/10/2020 16:45 :58 BODY TEMPERATURE 98.3 [degF] 08/10/2020 16:45:58 HEART BEAT 71.0 {beats}/min 08/10/2020 16:45:58 OXYGEN SATURATION 98.0 % 08/10/2020 16:45:58 BODY TEMPERATURE 98.4 [degF] 08/11/2020 7:00:00 RESPIRATION RATE 15.0 /min 08/11/2020 17:10:50 INTRAVASCULAR SYSTOLIC 92.0 mm[Hg] 08/11/2020 17:10: 50 INTRAVASCULAR DIASTOLIC 55.0 mm[Hg] 08/11/2020 17:10 :50 BODY TEMPERATURE 98.8 [degF] 08/11/2020 17:10:50 HEART BEAT 77.0 {beats}/min 08/11/2020 17:10:50 OXYGEN SATURATION 98.0 % 08/11/2020 17:10:50 BODY TEMPERATURE 98.4 [degF] 08/11/2020 17:15:00 RESPIRATION RATE 16.0 /min 08/12/2020 22:52:17 INTRAVASCULAR SYSTOLIC 102.0 mm[Hg] 08/12/2020 22:52: 17 INTRAVASCULAR DIASTOLIC 58.0 mm[Hg] 08/12/2020 22:52 :17 BODY TEMPERATURE 98.5 [degF] 08/12/2020 22:52:17 HEART BEAT 76.0 {beats}/min 08/12/2020 22:52:17 OXYGEN SATURATION 98.0 % 08/12/2020 22:52:17 BODY TEMPERATURE 98.3 [degF] 08/13/2020 6:30:00 BODY TEMPERATURE 98.6 [degF] 08/13/2020 13:33:00 RESPIRATION RATE 18.0 /min 08/13/2020 18:11:37 INTRAVASCULAR SYSTOLIC 105.0 mm[Hg] 08/13/2020 18:11: 37 INTRAVASCULAR DIASTOLIC 80.0 mm[Hg] 08/13/2020 18:11 :37 BODY TEMPERATURE 98.3 [degF] 08/13/2020 18:11:37 HEART BEAT 78.0 {beats}/min 08/13/2020 18:11:37 OXYGEN SATURATION 96.0 % 08/13/2020 18:11:37 PAIN LEVEL 6.0 {score} 08/13/2020 20:44:41 PAIN LEVEL 1.0 {score} 08/13/2020 23:03:07 BODY TEMPERATURE 97.9 [degF] 08/14/2020 2:27:00 BODY TEMPERATURE 97.4 [degF] 08/14/2020 7:20:00 RESPIRATION RATE 18.0 /min 08/14/2020 22:02:27 INTRAVASCULAR SYSTOLIC 110.0 mm[Hg] 08/14/2020 22:02: 27 INTRAVASCULAR DIASTOLIC 74.0 mm[Hg] 08/14/2020 22:02 :27 BODY TEMPERATURE 97.2 [degF] 08/14/2020 22:02:27 HEART BEAT 82.0 {beats}/min 08/14/2020 22:02:27 OXYGEN SATURATION 95.0 % 08/14/2020 22:02:27 BODY TEMPERATURE 97.4 [degF] 08/14/2020 23:42:00 BODY TEMPERATURE 97.9 [degF] 08/15/2020 6:49:00 RESPIRATION RATE 18.0 /min 08/15/2020 22:32:09 INTRAVASCULAR SYSTOLIC 122.0 mm[Hg] 08/15/2020 22:32: 09 INTRAVASCULAR DIASTOLIC 70.0 mm[Hg] 08/15/2020 22:32 :09 BODY TEMPERATURE 98.1 [degF] 08/15/2020 22:32:09 HEART BEAT 80.0 {beats}/min 08/15/2020 22:32:09 OXYGEN SATURATION 96.0 % 08/15/2020 22:32:09 BODY TEMPERATURE 98.6 [degF] 08/16/2020 2:39:00 BODY TEMPERATURE 98.8 [degF] 08/16/2020 7:25:00 BODY TEMPERATURE 98.8 [degF] 08/16/2020 10:15:00 BODY WEIGHT (MEASURED) 179.6 [lb_av] 08/16/2020 10:51: 00 PAIN LEVEL 5.0 {score} 08/16/2020 15:38:22 RESPIRATION RATE 18.0 /min 08/17/2020 1:12:55 INTRAVASCULAR SYSTOLIC 118.0 mm[Hg] 08/17/2020 1:12:5 5 INTRAVASCULAR DIASTOLIC 70.0 mm[Hg] 08/17/2020 1:12: 55 BODY TEMPERATURE 98.7 [degF] 08/17/2020 1:12:55 HEART BEAT 76.0 {beats}/min 08/17/2020 1:12:55 OXYGEN SATURATION 96.0 % 08/17/2020 1:12:55 PAIN LEVEL 0.0 {score} 08/17/2020 1:19:50 BODY TEMPERATURE 98.7 [degF] 08/17/2020 4:24:00 BODY TEMPERATURE 98.3 [degF] 08/17/2020 7:30:00 PAIN LEVEL 1.0 {score} 08/17/2020 11:52:23 PAIN LEVEL 0.0 {score} 08/17/2020 13:58:22 BODY TEMPERATURE 98.3 [degF] 08/17/2020 14:00:00 BODY TEMPERATURE 98.3 [degF] 08/17/2020 14:03:00 RESPIRATION RATE 20.0 /min 08/17/2020 16:29:31 INTRAVASCULAR SYSTOLIC 110.0 mm[Hg] 08/17/2020 16:29: 31 INTRAVASCULAR DIASTOLIC 71.0 mm[Hg] 08/17/2020 16:29 :31 HEART BEAT 72.0 {beats}/min 08/17/2020 16:29:31 OXYGEN SATURATION 98.0 % 08/17/2020 16:29:31 PAIN LEVEL 6.0 {score} 08/17/2020 20:36:11 BODY TEMPERATURE 98.3 [degF] 08/17/2020 21:49:00 PAIN LEVEL 0.0 {score} 08/17/2020 23:19:41 BODY TEMPERATURE 97.9 [degF] 08/18/2020 2:13:00 BODY TEMPERATURE 98.1 [degF] 08/18/2020 20:42:00 RESPIRATION RATE 16.0 /min 08/18/2020 23:40:28 INTRAVASCULAR SYSTOLIC 130.0 mm[Hg] 08/18/2020 23:40: 28 INTRAVASCULAR DIASTOLIC 70.0 mm[Hg] 08/18/2020 23:40 :28 BODY TEMPERATURE 98.1 [degF] 08/18/2020 23:40:28 HEART BEAT 72.0 {beats}/min 08/18/2020 23:40:28 OXYGEN SATURATION 98.0 % 08/18/2020 23:40:28 BODY TEMPERATURE 98.6 [degF] 08/19/2020 2:10:00 RESPIRATION RATE 16.0 /min 08/19/2020 22:44:43 INTRAVASCULAR SYSTOLIC 143.0 mm[Hg] 08/19/2020 22:44: 43 INTRAVASCULAR DIASTOLIC 69.0 mm[Hg] 08/19/2020 22:44 :43 BODY TEMPERATURE 98.4 [degF] 08/19/2020 22:44:43 HEART BEAT 74.0 {beats}/min 08/19/2020 22:44:43 OXYGEN SATURATION 95.0 % 08/19/2020 22:44:43 BODY TEMPERATURE 98.4 [degF] 08/19/2020 23:41:00 BODY TEMPERATURE 98.0 [degF] 08/20/2020 4:40:00 RESPIRATION RATE 18.0 /min 08/20/2020 16:23:40 INTRAVASCULAR SYSTOLIC 104.0 mm[Hg] 08/20/2020 16:23: 40 INTRAVASCULAR DIASTOLIC 69.0 mm[Hg] 08/20/2020 16:23 :40 HEART BEAT 77.0 {beats}/min 08/20/2020 16:23:40 OXYGEN SATURATION 97.0 % 08/20/2020 16:23:40 BODY TEMPERATURE 98.3 [degF] 08/20/2020 21:56:00 BODY TEMPERATURE 98.5 [degF] 08/21/2020 2:17:00 BODY TEMPERATURE 98.1 [degF] 08/21/2020 10:39:00 BODY TEMPERATURE 98.1 [degF] 08/21/2020 11:09:00 RESPIRATION RATE 16.0 /min 08/21/2020 19:14:39 INTRAVASCULAR SYSTOLIC 119.0 mm[Hg] 08/21/2020 19:14: 39 INTRAVASCULAR DIASTOLIC 81.0 mm[Hg] 08/21/2020 19:14 :39 BODY TEMPERATURE 98.3 [degF] 08/21/2020 19:14:39 HEART BEAT 79.0 {beats}/min 08/21/2020 19:14:39 OXYGEN SATURATION 98.0 % 08/21/2020 19:14:39 BODY TEMPERATURE 98.3 [degF] 08/21/2020 22:25:00 BODY TEMPERATURE 98.5 [degF] 08/22/2020 2:07:00 BODY TEMPERATURE 98.8 [degF] 08/22/2020 7:12:00 RESPIRATION RATE 18.0 /min 08/22/2020 20:31:54 INTRAVASCULAR SYSTOLIC 124.0 mm[Hg] 08/22/2020 20:31: 54 INTRAVASCULAR DIASTOLIC 74.0 mm[Hg] 08/22/2020 20:31 :54 BODY TEMPERATURE 98.8 [degF] 08/22/2020 20:31:54 HEART BEAT 70.0 {beats}/min 08/22/2020 20:31:54 OXYGEN SATURATION 91.0 % 08/22/2020 20:31:54 PAIN LEVEL 5.0 {score} 08/22/2020 20:35:10 PAIN LEVEL 1.0 {score} 08/22/2020 22:54:35 BODY TEMPERATURE 98.1 [degF] 08/23/2020 1:28:00 BODY TEMPERATURE 99.0 [degF] 08/23/2020 10:02:00 BODY TEMPERATURE 97.9 [degF] 08/23/2020 16:18:00 PAIN LEVEL 1.0 {score} 08/23/2020 16:30:11 RESPIRATION RATE 18.0 /min 08/23/2020 16:36:25 INTRAVASCULAR SYSTOLIC 124.0 mm[Hg] 08/23/2020 16:36: 25 INTRAVASCULAR DIASTOLIC 88.0 mm[Hg] 08/23/2020 16:36 :25 HEART BEAT 76.0 {beats}/min 08/23/2020 16:36:25 OXYGEN SATURATION 95.0 % 08/23/2020 16:36:25 PAIN LEVEL 6.0 {score} 08/23/2020 19:45:07 BODY TEMPERATURE 98.5 [degF] 08/24/2020 2:25:00 BODY TEMPERATURE 98.1 [degF] 08/24/2020 7:07:00 BODY TEMPERATURE 98.1 [degF] 08/24/2020 8:45:00 PAIN LEVEL 10.0 {score} 08/24/2020 15:53:44 BODY TEMPERATURE 97.9 [degF] 08/24/2020 17:47:00 RESPIRATION RATE 16.0 /min 08/24/2020 19:50:35 INTRAVASCULAR SYSTOLIC 103.0 mm[Hg] 08/24/2020 19:50: 35 INTRAVASCULAR DIASTOLIC 68.0 mm[Hg] 08/24/2020 19:50 :35 BODY TEMPERATURE 97.9 [degF] 08/24/2020 19:50:35 HEART BEAT 84.0 {beats}/min 08/24/2020 19:50:35 OXYGEN SATURATION 98.0 % 08/24/2020 19:50:35 PAIN LEVEL 0.0 {score} 08/24/2020 19:53:25 BODY TEMPERATURE 98.3 [degF] 08/25/2020 1:13:00 BODY TEMPERATURE 97.9 [degF] 08/25/2020 7:39:00 RESPIRATION RATE 16.0 /min 08/25/2020 16:18:37 INTRAVASCULAR SYSTOLIC 92.0 mm[Hg] 08/25/2020 16:18: 37 INTRAVASCULAR DIASTOLIC 54.0 mm[Hg] 08/25/2020 16:18 :37 HEART BEAT 78.0 {beats}/min 08/25/2020 16:18:37 OXYGEN SATURATION 98.0 % 08/25/2020 16:18:37 BODY TEMPERATURE 97.9 [degF] 08/25/2020 16:32:00 BODY TEMPERATURE 97.9 [degF] 08/26/2020 0:10:00 BODY TEMPERATURE 98.4 [degF] 08/26/2020 7:33:00 RESPIRATION RATE 16.0 /min 08/26/2020 17:08:20 INTRAVASCULAR SYSTOLIC 94.0 mm[Hg] 08/26/2020 17:08: 20 INTRAVASCULAR DIASTOLIC 54.0 mm[Hg] 08/26/2020 17:08 :20 BODY TEMPERATURE 98.4 [degF] 08/26/2020 17:08:20 HEART BEAT 91.0 {beats}/min 08/26/2020 17:08:20 OXYGEN SATURATION 98.0 % 08/26/2020 17:08:20 BODY TEMPERATURE 98.4 [degF] 08/26/2020 21:02:00 BODY TEMPERATURE 98.7 [degF] 08/27/2020 2:25:00 BODY TEMPERATURE 98.8 [degF] 08/27/2020 7:15:00 RESPIRATION RATE 16.0 /min 08/27/2020 17:40:22 INTRAVASCULAR SYSTOLIC 104.0 mm[Hg] 08/27/2020 17:40: 22 INTRAVASCULAR DIASTOLIC 72.0 mm[Hg] 08/27/2020 17:40 :22 BODY TEMPERATURE 98.3 [degF] 08/27/2020 17:40:22 HEART BEAT 69.0 {beats}/min 08/27/2020 17:40:22 OXYGEN SATURATION 98.0 % 08/27/2020 17:40:22 BODY TEMPERATURE 98.3 [degF] 08/27/2020 20:37:00 BODY TEMPERATURE 98.6 [degF] 08/28/2020 BODY TEMPERATURE 98.6 [degF] 08/28/2020 7:29:00 BODY TEMPERATURE 98.6 [degF] 08/28/2020 7:55:00 BODY TEMPERATURE 98.4 [degF] 08/28/2020 15:36:00 RESPIRATION RATE 16.0 /min 08/28/2020 20:27:00 INTRAVASCULAR SYSTOLIC 95.0 mm[Hg] 08/28/2020 20:27: 00 INTRAVASCULAR DIASTOLIC 53.0 mm[Hg] 08/28/2020 20:27 :00 BODY TEMPERATURE 98.4 [degF] 08/28/2020 20:27:00 HEART BEAT 66.0 {beats}/min 08/28/2020 20:27:00 OXYGEN SATURATION 98.0 % 08/28/2020 20:27:00 BODY TEMPERATURE 98.6 [degF] 08/29/2020 1:40:00 BODY TEMPERATURE 97.9 [degF] 08/29/2020 7:22:00 BODY TEMPERATURE 97.9 [degF] 08/29/2020 7:30:00 RESPIRATION RATE 16.0 /min 08/29/2020 22:22:13 INTRAVASCULAR SYSTOLIC 100.0 mm[Hg] 08/29/2020 22:22: 13 INTRAVASCULAR DIASTOLIC 62.0 mm[Hg] 08/29/2020 22:22 :13 BODY TEMPERATURE 98.3 [degF] 08/29/2020 22:22:13 HEART BEAT 62.0 {beats}/min 08/29/2020 22:22:13 OXYGEN SATURATION 98.0 % 08/29/2020 22:22:13 BODY TEMPERATURE 98.0 [degF] 08/30/2020 2:44:00 BODY TEMPERATURE 97.9 [degF] 08/30/2020 7:15:00 PAIN LEVEL 10.0 {score} 08/30/2020 20:01:11 RESPIRATION RATE 16.0 /min 08/30/2020 20:04:02 INTRAVASCULAR SYSTOLIC 102.0 mm[Hg] 08/30/2020 20:04: 02 INTRAVASCULAR DIASTOLIC 66.0 mm[Hg] 08/30/2020 20:04 :02 BODY TEMPERATURE 98.0 [degF] 08/30/2020 20:04:02 HEART BEAT 65.0 {beats}/min 08/30/2020 20:04:02 OXYGEN SATURATION 97.0 % 08/30/2020 20:04:02 PAIN LEVEL 5.0 {score} 08/30/2020 22:28:51 BODY TEMPERATURE 97.1 [degF] 08/31/2020 3:42:00 BODY TEMPERATURE 97.5 [degF] 08/31/2020 7:11:00 BODY TEMPERATURE 98.3 [degF] 08/31/2020 14:11:00 PAIN LEVEL 2.0 {score} 08/31/2020 15:07:07 RESPIRATION RATE 20.0 /min 08/31/2020 15:10:22 INTRAVASCULAR SYSTOLIC 121.0 mm[Hg] 08/31/2020 15:10: 22 INTRAVASCULAR DIASTOLIC 98.0 mm[Hg] 08/31/2020 15:10 :22 HEART BEAT 73.0 {beats}/min 08/31/2020 15:10:22 OXYGEN SATURATION 97.0 % 08/31/2020 15:10:22 PAIN LEVEL 0.0 {score} 08/31/2020 21:36:44 BODY TEMPERATURE 99.0 [degF] 08/31/2020 23:18:00 RESPIRATION RATE 16.0 /min 09/01/2020 22:45:47 INTRAVASCULAR SYSTOLIC 110.0 mm[Hg] 09/01/2020 22:45: 47 INTRAVASCULAR DIASTOLIC 63.0 mm[Hg] 09/01/2020 22:45 :47 BODY TEMPERATURE 98.8 [degF] 09/01/2020 22:45:47 HEART BEAT 62.0 {beats}/min 09/01/2020 22:45:47 OXYGEN SATURATION 98.0 % 09/01/2020 22:45:47 BODY TEMPERATURE 98.8 [degF] 09/02/2020 1:00:00 BODY TEMPERATURE 98.4 [degF] 09/02/2020 2:00:00 BODY TEMPERATURE 98.6 [degF] 09/02/2020 14:44:00 PAIN LEVEL 5.0 {score} 09/02/2020 19:30:35 INTRAVASCULAR SYSTOLIC 114.0 mm[Hg] 09/02/2020 23:44: 16 INTRAVASCULAR DIASTOLIC 72.0 mm[Hg] 09/02/2020 23:44 :16 BODY TEMPERATURE 97.9 [degF] 09/02/2020 23:44:16 HEART BEAT 68.0 {beats}/min 09/02/2020 23:44:16 PAIN LEVEL 0.0 {score} 09/02/2020 23:45:09 BODY TEMPERATURE 97.9 [degF] 09/03/2020 0:10:00 BODY TEMPERATURE 97.9 [degF] 09/03/2020 2:09:00 BODY TEMPERATURE 98.8 [degF] 09/03/2020 7:28:00 PAIN LEVEL 2.0 {score} 09/03/2020 9:12:30 PAIN LEVEL 1.0 {score} 09/03/2020 12:26:42 RESPIRATION RATE 18.0 /min 09/03/2020 17:32:39 INTRAVASCULAR SYSTOLIC 102.0 mm[Hg] 09/03/2020 17:32: 39 INTRAVASCULAR DIASTOLIC 68.0 mm[Hg] 09/03/2020 17:32 :39 BODY TEMPERATURE 98.4 [degF] 09/03/2020 17:32:39 HEART BEAT 61.0 {beats}/min 09/03/2020 17:32:39 OXYGEN SATURATION 98.0 % 09/03/2020 17:32:39 BODY TEMPERATURE 98.4 [degF] 09/03/2020 17:41:00 BODY TEMPERATURE 98.1 [degF] 09/04/2020 5:16:00 BODY TEMPERATURE 96.9 [degF] 09/04/2020 7:16:00 PAIN LEVEL 1.0 {score} 09/04/2020 15:31:50 RESPIRATION RATE 16.0 /min 09/04/2020 15:32:26 INTRAVASCULAR SYSTOLIC 120.0 mm[Hg] 09/04/2020 15:32: 26 INTRAVASCULAR DIASTOLIC 60.0 mm[Hg] 09/04/2020 15:32 :26 HEART BEAT 62.0 {beats}/min 09/04/2020 15:32:26 OXYGEN SATURATION 99.0 % 09/04/2020 15:32:26 BODY TEMPERATURE 97.5 [degF] 09/04/2020 16:14:00 PAIN LEVEL 0.0 {score} 09/04/2020 20:05:29 BODY TEMPERATURE 98.6 [degF] 09/05/2020 2:00:00 BODY TEMPERATURE 98.0 [degF] 09/05/2020 4:02:00 BODY TEMPERATURE 98.4 [degF] 09/05/2020 12:55:00 RESPIRATION RATE 18.0 /min 09/05/2020 14:32:48 INTRAVASCULAR SYSTOLIC 102.0 mm[Hg] 09/05/2020 14:32: 48 INTRAVASCULAR DIASTOLIC 68.0 mm[Hg] 09/05/2020 14:32 :48 HEART BEAT 60.0 {beats}/min 09/05/2020 14:32:48 OXYGEN SATURATION 97.0 % 09/05/2020 14:32:48 PAIN LEVEL 10.0 {score} 09/05/2020 20:46:13 PAIN LEVEL 0.0 {score} 09/05/2020 22:16:50 BODY TEMPERATURE 98.3 [degF] 09/06/2020 5:46:00 BODY TEMPERATURE 98.4 [degF] 09/06/2020 7:12:00 RESPIRATION RATE 18.0 /min 09/06/2020 16:37:21 INTRAVASCULAR SYSTOLIC 110.0 mm[Hg] 09/06/2020 16:37: 21 INTRAVASCULAR DIASTOLIC 72.0 mm[Hg] 09/06/2020 16:37 :21 BODY TEMPERATURE 98.5 [degF] 09/06/2020 16:37:21 HEART BEAT 68.0 {beats}/min 09/06/2020 16:37:21 OXYGEN SATURATION 97.0 % 09/06/2020 16:37:21 PAIN LEVEL 8.0 {score} 09/06/2020 19:34:45 PAIN LEVEL 2.0 {score} 09/06/2020 20:49:31 BODY TEMPERATURE 98.0 [degF] 09/07/2020 2:58:00 BODY TEMPERATURE 97.9 [degF] 09/07/2020 7:34:00 RESPIRATION RATE 16.0 /min 09/07/2020 15:45:25 INTRAVASCULAR SYSTOLIC 102.0 mm[Hg] 09/07/2020 15:45: 25 INTRAVASCULAR DIASTOLIC 68.0 mm[Hg] 09/07/2020 15:45 :25 BODY TEMPERATURE 98.6 [degF] 09/07/2020 15:45:25 HEART BEAT 63.0 {beats}/min 09/07/2020 15:45:25 OXYGEN SATURATION 98.0 % 09/07/2020 15:45:25 BODY TEMPERATURE 98.6 [degF] 09/07/2020 18:04:00 PAIN LEVEL 10.0 {score} 09/07/2020 19:34:11 PAIN LEVEL 2.0 {score} 09/07/2020 22:56:24 BODY TEMPERATURE 98.3 [degF] 09/08/2020 0:19:00 BODY TEMPERATURE 98.3 [degF] 09/08/2020 7:04:00 PAIN LEVEL 1.0 {score} 09/08/2020 7:56:46 PAIN LEVEL 1.0 {score} 09/08/2020 12:15:36 PAIN LEVEL 2.0 {score} 09/08/2020 15:34:33 RESPIRATION RATE 18.0 /min 09/08/2020 15:37:36 INTRAVASCULAR SYSTOLIC 96.0 mm[Hg] 09/08/2020 15:37: 36 INTRAVASCULAR DIASTOLIC 63.0 mm[Hg] 09/08/2020 15:37 :36 HEART BEAT 62.0 {beats}/min 09/08/2020 15:37:36 OXYGEN SATURATION 98.0 % 09/08/2020 15:37:36 PAIN LEVEL 2.0 {score} 09/08/2020 17:42:21 PAIN LEVEL 7.0 {score} 09/08/2020 19:46:32 PAIN LEVEL 2.0 {score} 09/08/2020 21:39:27 BODY TEMPERATURE 98.4 [degF] 09/09/2020 1:51:00 BODY TEMPERATURE 97.9 [degF] 09/09/2020 7:00:00 BODY TEMPERATURE 97.9 [degF] 09/09/2020 9:25:00 RESPIRATION RATE 18.0 /min 09/10/2020 1:22:37 INTRAVASCULAR SYSTOLIC 102.0 mm[Hg] 09/10/2020 1:22:3 7 INTRAVASCULAR DIASTOLIC 58.0 mm[Hg] 09/10/2020 1:22: 37 BODY TEMPERATURE 97.9 [degF] 09/10/2020 1:22:37 HEART BEAT 72.0 {beats}/min 09/10/2020 1:22:37 OXYGEN SATURATION 98.0 % 09/10/2020 1:22:37 BODY TEMPERATURE 97.6 [degF] 09/10/2020 2:00:00 BODY TEMPERATURE 97.9 [degF] 09/10/2020 3:43:00 RESPIRATION RATE 16.0 /min 09/10/2020 19:28:10 INTRAVASCULAR SYSTOLIC 104.0 mm[Hg] 09/10/2020 19:28: 10 INTRAVASCULAR DIASTOLIC 60.0 mm[Hg] 09/10/2020 19:28 :10 BODY TEMPERATURE 98.0 [degF] 09/10/2020 19:28:10 HEART BEAT 74.0 {beats}/min 09/10/2020 19:28:10 OXYGEN SATURATION 98.0 % 09/10/2020 19:28:10 PAIN LEVEL 9.0 {score} 09/10/2020 19:28:52 PAIN LEVEL 2.0 {score} 09/10/2020 21:43:04 BODY TEMPERATURE 98.1 [degF] 09/11/2020 1:21:00 BODY TEMPERATURE 97.9 [degF] 09/11/2020 7:31:00 BODY TEMPERATURE 97.9 [degF] 09/11/2020 23:24:00 RESPIRATION RATE 16.0 /min 09/11/2020 23:30:32 INTRAVASCULAR SYSTOLIC 116.0 mm[Hg] 09/11/2020 23:30: 32 INTRAVASCULAR DIASTOLIC 58.0 mm[Hg] 09/11/2020 23:30 :32 BODY TEMPERATURE 97.8 [degF] 09/11/2020 23:30:32 HEART BEAT 70.0 {beats}/min 09/11/2020 23:30:32 OXYGEN SATURATION 97.0 % 09/11/2020 23:30:32 BODY TEMPERATURE 98.6 [degF] 09/12/2020 8:22:00 RESPIRATION RATE 18.0 /min 09/12/2020 15:46:00 INTRAVASCULAR SYSTOLIC 118.0 mm[Hg] 09/12/2020 15:46: 00 INTRAVASCULAR DIASTOLIC 69.0 mm[Hg] 09/12/2020 15:46 :00 HEART BEAT 70.0 {beats}/min 09/12/2020 15:46:00 OXYGEN SATURATION 99.0 % 09/12/2020 15:46:00 BODY TEMPERATURE 98.1 [degF] 09/12/2020 19:00:00 BODY TEMPERATURE 98.4 [degF] 09/13/2020 3:07:00 BODY TEMPERATURE 98.4 [degF] 09/13/2020 7:33:00 PAIN LEVEL 8.0 {score} 09/13/2020 8:46:06 PAIN LEVEL 7.0 {score} 09/13/2020 9:44:20 BODY TEMPERATURE 98.4 [degF] 09/13/2020 10:33:00 PAIN LEVEL 5.0 {score} 09/13/2020 21:04:21 RESPIRATION RATE 18.0 /min 09/13/2020 23:22:07 INTRAVASCULAR SYSTOLIC 124.0 mm[Hg] 09/13/2020 23:22: 07 INTRAVASCULAR DIASTOLIC 72.0 mm[Hg] 09/13/2020 23:22 :07 BODY TEMPERATURE 98.4 [degF] 09/13/2020 23:22:07 HEART BEAT 76.0 {beats}/min 09/13/2020 23:22:07 OXYGEN SATURATION 98.0 % 09/13/2020 23:22:07 PAIN LEVEL 0.0 {score} 09/13/2020 23:23:44 BODY TEMPERATURE 98.0 [degF] 09/14/2020 1:55:00 BODY TEMPERATURE 98.4 [degF] 09/14/2020 7:31:00 RESPIRATION RATE 18.0 /min 09/14/2020 15:54:50 INTRAVASCULAR SYSTOLIC 118.0 mm[Hg] 09/14/2020 15:54: 50 INTRAVASCULAR DIASTOLIC 72.0 mm[Hg] 09/14/2020 15:54 :50 HEART BEAT 77.0 {beats}/min 09/14/2020 15:54:50 OXYGEN SATURATION 95.0 % 09/14/2020 15:54:50 BODY TEMPERATURE 98.6 [degF] 09/14/2020 16:00:00 BODY TEMPERATURE 98.4 [degF] 09/15/2020 0:54:00 PAIN LEVEL 6.0 {score} 09/15/2020 12:30:23 PAIN LEVEL 0.0 {score} 09/15/2020 14:22:05 INTRAVASCULAR SYSTOLIC 118.0 mm[Hg] 09/15/2020 19:29: 58 INTRAVASCULAR DIASTOLIC 66.0 mm[Hg] 09/15/2020 19:29 :58 BODY TEMPERATURE 98.0 [degF] 09/15/2020 19:29:58 HEART BEAT 72.0 {beats}/min 09/15/2020 19:29:58 OXYGEN SATURATION 97.0 % 09/15/2020 19:29:58 BODY TEMPERATURE 98.1 [degF] 09/16/2020 0:10:00 BODY TEMPERATURE 97.9 [degF] 09/16/2020 17:14:00 INTRAVASCULAR SYSTOLIC 110.0 mm[Hg] 09/16/2020 17:20: 31 INTRAVASCULAR DIASTOLIC 60.0 mm[Hg] 09/16/2020 17:20 :31 BODY TEMPERATURE 97.9 [degF] 09/16/2020 17:20:31 HEART BEAT 71.0 {beats}/min 09/16/2020 17:20:31 OXYGEN SATURATION 100.0 % 09/16/2020 17:20:31 PAIN LEVEL 6.0 {score} 09/16/2020 19:42:29 PAIN LEVEL 0.0 {score} 09/16/2020 22:20:08 BODY TEMPERATURE 97.9 [degF] 09/17/2020 0:29:00 BODY TEMPERATURE 98.4 [degF] 09/17/2020 7:06:00 RESPIRATION RATE 18.0 /min 09/18/2020 1:02:01 INTRAVASCULAR SYSTOLIC 124.0 mm[Hg] 09/18/2020 1:02:0 1 INTRAVASCULAR DIASTOLIC 66.0 mm[Hg] 09/18/2020 1:02: 01 BODY TEMPERATURE 98.4 [degF] 09/18/2020 1:02:01 HEART BEAT 74.0 {beats}/min 09/18/2020 1:02:01 OXYGEN SATURATION 97.0 % 09/18/2020 1:02:01 BODY TEMPERATURE 98.1 [degF] 09/18/2020 9:43:00 RESPIRATION RATE 18.0 /min 09/18/2020 15:09:30 INTRAVASCULAR SYSTOLIC 116.0 mm[Hg] 09/18/2020 15:09: 30 INTRAVASCULAR DIASTOLIC 78.0 mm[Hg] 09/18/2020 15:09 :30 HEART BEAT 60.0 {beats}/min 09/18/2020 15:09:30 OXYGEN SATURATION 98.0 % 09/18/2020 15:09:30 BODY TEMPERATURE 98.3 [degF] 09/18/2020 19:25:00 BODY TEMPERATURE 98.5 [degF] 09/18/2020 23:48:00 BODY TEMPERATURE 97.9 [degF] 09/19/2020 7:20:00 PAIN LEVEL 6.0 {score} 09/19/2020 15:35:47 RESPIRATION RATE 18.0 /min 09/19/2020 17:25:29 INTRAVASCULAR SYSTOLIC 114.0 mm[Hg] 09/19/2020 17:25: 29 INTRAVASCULAR DIASTOLIC 74.0 mm[Hg] 09/19/2020 17:25 :29 BODY TEMPERATURE 98.3 [degF] 09/19/2020 17:25:29 HEART BEAT 64.0 {beats}/min 09/19/2020 17:25:29 OXYGEN SATURATION 98.0 % 09/19/2020 17:25:29 PAIN LEVEL 1.0 {score} 09/19/2020 17:26:24 BODY TEMPERATURE 98.6 [degF] 09/19/2020 18:30:00 BODY TEMPERATURE 98.6 [degF] 09/20/2020 1:18:00 BODY TEMPERATURE 98.4 [degF] 09/20/2020 9:08:00 INTRAVASCULAR SYSTOLIC 118.0 mm[Hg] 09/20/2020 17:55: 43 INTRAVASCULAR DIASTOLIC 76.0 mm[Hg] 09/20/2020 17:55 :43 BODY TEMPERATURE 98.6 [degF] 09/20/2020 17:55:43 HEART BEAT 66.0 {beats}/min 09/20/2020 17:55:43 BODY TEMPERATURE 98.8 [degF] 09/20/2020 23:34:00 BODY TEMPERATURE 98.4 [degF] 09/21/2020 7:14:00 INTRAVASCULAR SYSTOLIC 116.0 mm[Hg] 09/21/2020 15:36: 00 INTRAVASCULAR DIASTOLIC 78.0 mm[Hg] 09/21/2020 15:36 :00 BODY TEMPERATURE 98.2 [degF] 09/21/2020 15:36:00 HEART BEAT 62.0 {beats}/min 09/21/2020 15:36:00 PAIN LEVEL 6.0 {score} 09/21/2020 19:37:47 PAIN LEVEL 2.0 {score} 09/21/2020 21:10:56 BODY TEMPERATURE 98.0 [degF] 09/21/2020 23:57:00 BODY TEMPERATURE 98.8 [degF] 09/22/2020 8:12:00 INTRAVASCULAR SYSTOLIC 114.0 mm[Hg] 09/22/2020 18:29: 53 INTRAVASCULAR DIASTOLIC 72.0 mm[Hg] 09/22/2020 18:29 :53 BODY TEMPERATURE 98.4 [degF] 09/22/2020 18:29:53 HEART BEAT 68.0 {beats}/min 09/22/2020 18:29:53 BODY TEMPERATURE 98.2 [degF] 09/22/2020 23:00:00 BODY TEMPERATURE 98.3 [degF] 09/23/2020 1:51:00 BODY TEMPERATURE 98.3 [degF] 09/23/2020 8:00:00 BODY TEMPERATURE 98.1 [degF] 09/23/2020 14:12:00 RESPIRATION RATE 20.0 /min 09/23/2020 15:29:47 INTRAVASCULAR SYSTOLIC 120.0 mm[Hg] 09/23/2020 15:29: 47 INTRAVASCULAR DIASTOLIC 74.0 mm[Hg] 09/23/2020 15:29 :47 HEART BEAT 68.0 {beats}/min 09/23/2020 15:29:47 OXYGEN SATURATION 98.0 % 09/23/2020 15:29:47 PAIN LEVEL 2.0 {score} 09/23/2020 15:30:29 PAIN LEVEL 0.0 {score} 09/23/2020 18:06:14 BODY TEMPERATURE 98.2 [degF] 09/24/2020 0:22:00 BODY TEMPERATURE 98.8 [degF] 09/24/2020 7:08:00 BODY WEIGHT (MEASURED) 182.2 [lb_av] 09/24/2020 10:53: 00 PAIN LEVEL 10.0 {score} 09/24/2020 15:47:59 PAIN LEVEL 0.0 {score} 09/24/2020 17:30:47 RESPIRATION RATE 20.0 /min 09/24/2020 18:07:50 INTRAVASCULAR SYSTOLIC 107.0 mm[Hg] 09/24/2020 18:07: 50 INTRAVASCULAR DIASTOLIC 63.0 mm[Hg] 09/24/2020 18:07 :50 BODY TEMPERATURE 98.4 [degF] 09/24/2020 18:07:50 HEART BEAT 70.0 {beats}/min 09/24/2020 18:07:50 OXYGEN SATURATION 97.0 % 09/24/2020 18:07:50 BODY TEMPERATURE 98.4 [degF] 09/24/2020 18:14:00 PAIN LEVEL 10.0 {score} 09/24/2020 19:48:24 PAIN LEVEL 0.0 {score} 09/24/2020 20:37:17 BODY TEMPERATURE 98.5 [degF] 09/25/2020 2:37:00 BODY TEMPERATURE 98.4 [degF] 09/25/2020 7:06:00 BODY TEMPERATURE 99.0 [degF] 09/25/2020 14:03:00 PAIN LEVEL 1.0 {score} 09/25/2020 14:57:36 RESPIRATION RATE 20.0 /min 09/25/2020 15:02:52 INTRAVASCULAR SYSTOLIC 118.0 mm[Hg] 09/25/2020 15:02: 52 INTRAVASCULAR DIASTOLIC 68.0 mm[Hg] 09/25/2020 15:02 :52 HEART BEAT 76.0 {beats}/min 09/25/2020 15:02:52 OXYGEN SATURATION 98.0 % 09/25/2020 15:02:52 PAIN LEVEL 1.0 {score} 09/25/2020 17:08:39 PAIN LEVEL 6.0 {score} 09/25/2020 19:32:08 PAIN LEVEL 2.0 {score} 09/25/2020 21:08:57 BODY TEMPERATURE 98.7 [degF] 09/26/2020 1:48:00 BODY TEMPERATURE 98.6 [degF] 09/26/2020 7:03:00 RESPIRATION RATE 16.0 /min 09/26/2020 17:54:10 INTRAVASCULAR SYSTOLIC 100.0 mm[Hg] 09/26/2020 17:54: 10 INTRAVASCULAR DIASTOLIC 67.0 mm[Hg] 09/26/2020 17:54 :10 BODY TEMPERATURE 98.5 [degF] 09/26/2020 17:54:10 HEART BEAT 58.0 {beats}/min 09/26/2020 17:54:10 OXYGEN SATURATION 99.0 % 09/26/2020 17:54:10 BODY TEMPERATURE 98.5 [degF] 09/26/2020 18:00:00 BODY TEMPERATURE 98.0 [degF] 09/26/2020 18:51:00 PAIN LEVEL 10.0 {score} 09/26/2020 20:02:46 PAIN LEVEL 0.0 {score} 09/26/2020 22:33:17 BODY TEMPERATURE 98.6 [degF] 09/26/2020 23:23:00 BODY TEMPERATURE 98.9 [degF] 09/27/2020 8:00:00 RESPIRATION RATE 16.0 /min 09/27/2020 16:27:08 INTRAVASCULAR SYSTOLIC 94.0 mm[Hg] 09/27/2020 16:27: 08 INTRAVASCULAR DIASTOLIC 62.0 mm[Hg] 09/27/2020 16:27 :08 BODY TEMPERATURE 98.7 [degF] 09/27/2020 16:27:08 HEART BEAT 67.0 {beats}/min 09/27/2020 16:27:08 OXYGEN SATURATION 98.0 % 09/27/2020 16:27:08 BODY TEMPERATURE 98.4 [degF] 09/28/2020 1:51:00 BODY TEMPERATURE 98.4 [degF] 09/28/2020 7:00:00 BODY TEMPERATURE 98.6 [degF] 09/28/2020 14:31:00 INTRAVASCULAR SYSTOLIC 106.0 mm[Hg] 09/28/2020 22:40: 00 INTRAVASCULAR DIASTOLIC 68.0 mm[Hg] 09/28/2020 22:40 :00 HEART BEAT 70.0 {beats}/min 09/28/2020 22:41:00 RESPIRATION RATE 18.0 /min 09/28/2020 22:43:00 OXYGEN SATURATION 98.0 % 09/28/2020 22:46:00 BODY TEMPERATURE 98.6 [degF] 09/28/2020 23:49:00 BODY TEMPERATURE 98.6 [degF] 09/29/2020 20:07:00 RESPIRATION RATE 16.0 /min 09/30/2020 0:03:12 INTRAVASCULAR SYSTOLIC 89.0 mm[Hg] 09/30/2020 0:03:1 2 INTRAVASCULAR DIASTOLIC 62.0 mm[Hg] 09/30/2020 0:03: 12 BODY TEMPERATURE 98.6 [degF] 09/30/2020 0:03:12 HEART BEAT 72.0 {beats}/min 09/30/2020 0:03:12 OXYGEN SATURATION 99.0 % 09/30/2020 0:03:12 BODY TEMPERATURE 98.6 [degF] 09/30/2020 1:17:00 BODY TEMPERATURE 97.9 [degF] 09/30/2020 13:25:00 PAIN LEVEL 10.0 {score} 09/30/2020 15:42:48 BODY TEMPERATURE 97.9 [degF] 09/30/2020 17:45:00 RESPIRATION RATE 16.0 /min 09/30/2020 18:21:54 INTRAVASCULAR SYSTOLIC 106.0 mm[Hg] 09/30/2020 18:21: 54 INTRAVASCULAR DIASTOLIC 63.0 mm[Hg] 09/30/2020 18:21 :54 BODY TEMPERATURE 97.9 [degF] 09/30/2020 18:21:54 HEART BEAT 88.0 {beats}/min 09/30/2020 18:21:54 OXYGEN SATURATION 98.0 % 09/30/2020 18:21:54 PAIN LEVEL 0.0 {score} 09/30/2020 18:22:44 PAIN LEVEL 10.0 {score} 09/30/2020 19:51:10 PAIN LEVEL 0.0 {score} 09/30/2020 21:51:54 BODY TEMPERATURE 97.9 [degF] 10/01/2020 2:12:00 BODY TEMPERATURE 98.1 [degF] 10/01/2020 7:10:00 PAIN LEVEL 1.0 {score} 10/01/2020 8:23:25 PAIN LEVEL 0.0 {score} 10/01/2020 12:08:34 PAIN LEVEL 10.0 {score} 10/01/2020 16:25:55 RESPIRATION RATE 20.0 /min 10/01/2020 16:28:25 INTRAVASCULAR SYSTOLIC 118.0 mm[Hg] 10/01/2020 16:28: 25 INTRAVASCULAR DIASTOLIC 70.0 mm[Hg] 10/01/2020 16:28 :25 BODY TEMPERATURE 98.1 [degF] 10/01/2020 16:28:25 HEART BEAT 61.0 {beats}/min 10/01/2020 16:28:25 OXYGEN SATURATION 99.0 % 10/01/2020 16:28:25 PAIN LEVEL 0.0 {score} 10/01/2020 17:50:02 BODY TEMPERATURE 98.1 [degF] 10/01/2020 17:52:00 BODY TEMPERATURE 98.0 [degF] 10/02/2020 0:01:00 BODY TEMPERATURE 98.8 [degF] 10/02/2020 7:12:00 RESPIRATION RATE 12.0 /min 10/02/2020 17:08:58 INTRAVASCULAR SYSTOLIC 112.0 mm[Hg] 10/02/2020 17:08: 58 INTRAVASCULAR DIASTOLIC 67.0 mm[Hg] 10/02/2020 17:08 :58 BODY TEMPERATURE 98.5 [degF] 10/02/2020 17:08:58 HEART BEAT 66.0 {beats}/min 10/02/2020 17:08:58 OXYGEN SATURATION 100.0 % 10/02/2020 17:08:58 BODY TEMPERATURE 98.1 [degF] 10/03/2020 3:08:00 BODY TEMPERATURE 98.4 [degF] 10/03/2020 7:00:00 RESPIRATION RATE 16.0 /min 10/03/2020 16:08:50 INTRAVASCULAR SYSTOLIC 115.0 mm[Hg] 10/03/2020 16:08: 50 INTRAVASCULAR DIASTOLIC 63.0 mm[Hg] 10/03/2020 16:08 :50 BODY TEMPERATURE 98.8 [degF] 10/03/2020 16:08:50 HEART BEAT 78.0 {beats}/min 10/03/2020 16:08:50 OXYGEN SATURATION 98.0 % 10/03/2020 16:08:50 PAIN LEVEL 10.0 {score} 10/03/2020 16:09:47 PAIN LEVEL 0.0 {score} 10/03/2020 17:51:02 BODY TEMPERATURE 98.8 [degF] 10/03/2020 19:47:00 BODY TEMPERATURE 98.6 [degF] 10/04/2020 0:06:00 BODY TEMPERATURE 98.3 [degF] 10/04/2020 6:59:00 BODY TEMPERATURE 98.4 [degF] 10/04/2020 16:19:00 RESPIRATION RATE 18.0 /min 10/04/2020 16:22:20 INTRAVASCULAR SYSTOLIC 122.0 mm[Hg] 10/04/2020 16:22: 20 INTRAVASCULAR DIASTOLIC 64.0 mm[Hg] 10/04/2020 16:22 :20 HEART BEAT 76.0 {beats}/min 10/04/2020 16:22:20 OXYGEN SATURATION 97.0 % 10/04/2020 16:22:20 BODY TEMPERATURE 98.5 [degF] 10/05/2020 0:56:00 BODY TEMPERATURE 97.9 [degF] 10/05/2020 7:21:00 PAIN LEVEL 9.0 {score} 10/05/2020 8:46:54 PAIN LEVEL 1.0 {score} 10/05/2020 12:12:37 PAIN LEVEL 10.0 {score} 10/05/2020 19:55:19 RESPIRATION RATE 16.0 /min 10/05/2020 19:59:17 INTRAVASCULAR SYSTOLIC 114.0 mm[Hg] 10/05/2020 19:59: 17 INTRAVASCULAR DIASTOLIC 72.0 mm[Hg] 10/05/2020 19:59 :17 BODY TEMPERATURE 98.4 [degF] 10/05/2020 19:59:17 HEART BEAT 61.0 {beats}/min 10/05/2020 19:59:17 OXYGEN SATURATION 100.0 % 10/05/2020 19:59:17 BODY TEMPERATURE 98.4 [degF] 10/05/2020 22:17:00 PAIN LEVEL 0.0 {score} 10/05/2020 22:20:16 BODY TEMPERATURE 98.2 [degF] 10/05/2020 23:13:00 BODY TEMPERATURE 98.6 [degF] 10/06/2020 8:00:00 BODY TEMPERATURE 98.5 [degF] 10/06/2020 17:34:00 PAIN LEVEL 6.0 {score} 10/06/2020 19:33:25 RESPIRATION RATE 18.0 /min 10/06/2020 21:39:42 INTRAVASCULAR SYSTOLIC 110.0 mm[Hg] 10/06/2020 21:39: 42 INTRAVASCULAR DIASTOLIC 66.0 mm[Hg] 10/06/2020 21:39 :42 BODY TEMPERATURE 98.5 [degF] 10/06/2020 21:39:42 HEART BEAT 72.0 {beats}/min 10/06/2020 21:39:42 OXYGEN SATURATION 99.0 % 10/06/2020 21:39:42 PAIN LEVEL 0.0 {score} 10/06/2020 21:41:42 PAIN LEVEL 2.0 {score} 10/07/2020 8:41:50 PAIN LEVEL 0.0 {score} 10/07/2020 11:46:18 BODY TEMPERATURE 98.9 [degF] 10/07/2020 13:19:00 BODY TEMPERATURE 98.2 [degF] 10/07/2020 15:17:00 PAIN LEVEL 10.0 {score} 10/07/2020 16:23:49 RESPIRATION RATE 16.0 /min 10/07/2020 16:24:41 INTRAVASCULAR SYSTOLIC 83.0 mm[Hg] 10/07/2020 16:24: 41 INTRAVASCULAR DIASTOLIC 55.0 mm[Hg] 10/07/2020 16:24 :41 BODY TEMPERATURE 98.2 [degF] 10/07/2020 16:24:41 HEART BEAT 80.0 {beats}/min 10/07/2020 16:24:41 OXYGEN SATURATION 97.0 % 10/07/2020 16:24:41 PAIN LEVEL 0.0 {score} 10/07/2020 17:51:44 BODY TEMPERATURE 98.0 [degF] 10/07/2020 23:58:00 BODY TEMPERATURE 98.7 [degF] 10/08/2020 10:15:00 PAIN LEVEL 9.0 {score} 10/08/2020 15:22:21 RESPIRATION RATE 16.0 /min 10/08/2020 17:30:09 INTRAVASCULAR SYSTOLIC 102.0 mm[Hg] 10/08/2020 17:30: 09 INTRAVASCULAR DIASTOLIC 60.0 mm[Hg] 10/08/2020 17:30 :09 HEART BEAT 80.0 {beats}/min 10/08/2020 17:30:09 OXYGEN SATURATION 97.0 % 10/08/2020 17:30:09 PAIN LEVEL 8.0 {score} 10/08/2020 17:30:55 BODY TEMPERATURE 98.6 [degF] 10/09/2020 7:22:00 RESPIRATION RATE 18.0 /min 10/09/2020 18:26:43 INTRAVASCULAR SYSTOLIC 102.0 mm[Hg] 10/09/2020 18:26: 43 INTRAVASCULAR DIASTOLIC 64.0 mm[Hg] 10/09/2020 18:26 :43 HEART BEAT 73.0 {beats}/min 10/09/2020 18:26:43 OXYGEN SATURATION 96.0 % 10/09/2020 18:26:43 BODY TEMPERATURE 98.5 [degF] 10/09/2020 22:17:00 BODY TEMPERATURE 98.9 [degF] 10/10/2020 1:46:00 BODY TEMPERATURE 97.9 [degF] 10/10/2020 7:34:00 RESPIRATION RATE 18.0 /min 10/10/2020 15:29:20 INTRAVASCULAR SYSTOLIC 96.0 mm[Hg] 10/10/2020 15:29: 20 INTRAVASCULAR DIASTOLIC 66.0 mm[Hg] 10/10/2020 15:29 :20 HEART BEAT 67.0 {beats}/min 10/10/2020 15:29:20 OXYGEN SATURATION 96.0 % 10/10/2020 15:29:20 BODY TEMPERATURE 98.2 [degF] 10/10/2020 15:53:00 BODY TEMPERATURE 98.3 [degF] 10/10/2020 23:16:00 BODY TEMPERATURE 99.1 [degF] 10/11/2020 7:00:00 PAIN LEVEL 2.0 {score} 10/11/2020 15:27:27 RESPIRATION RATE 18.0 /min 10/11/2020 15:32:16 INTRAVASCULAR SYSTOLIC 110.0 mm[Hg] 10/11/2020 15:32: 16 INTRAVASCULAR DIASTOLIC 64.0 mm[Hg] 10/11/2020 15:32 :16 HEART BEAT 68.0 {beats}/min 10/11/2020 15:32:16 OXYGEN SATURATION 96.0 % 10/11/2020 15:32:16 PAIN LEVEL 0.0 {score} 10/11/2020 18:00:26 PAIN LEVEL 6.0 {score} 10/11/2020 19:32:39 PAIN LEVEL 0.0 {score} 10/11/2020 21:46:34 BODY TEMPERATURE 98.0 [degF] 10/12/2020 0:44:00 BODY TEMPERATURE 98.7 [degF] 10/12/2020 7:04:00 PAIN LEVEL 5.0 {score} 10/12/2020 8:25:36 PAIN LEVEL 0.0 {score} 10/12/2020 11:32:09 BODY TEMPERATURE 98.7 [degF] 10/12/2020 17:35:00 RESPIRATION RATE 18.0 /min 10/12/2020 19:35:58 INTRAVASCULAR SYSTOLIC 116.0 mm[Hg] 10/12/2020 19:35: 58 INTRAVASCULAR DIASTOLIC 62.0 mm[Hg] 10/12/2020 19:35 :58 HEART BEAT 68.0 {beats}/min 10/12/2020 19:35:58 OXYGEN SATURATION 97.0 % 10/12/2020 19:35:58 BODY TEMPERATURE 98.3 [degF] 10/13/2020 0:33:00 BODY TEMPERATURE 98.5 [degF] 10/13/2020 14:17:00 BODY TEMPERATURE 98.4 [degF] 10/13/2020 17:49:00 RESPIRATION RATE 16.0 /min 10/13/2020 19:35:56 INTRAVASCULAR SYSTOLIC 107.0 mm[Hg] 10/13/2020 19:35: 56 INTRAVASCULAR DIASTOLIC 73.0 mm[Hg] 10/13/2020 19:35 :56 HEART BEAT 69.0 {beats}/min 10/13/2020 19:35:56 OXYGEN SATURATION 97.0 % 10/13/2020 19:35:56 BODY TEMPERATURE 98.5 [degF] 10/14/2020 0:10:00 BODY TEMPERATURE 98.9 [degF] 10/14/2020 12:57:00 BODY TEMPERATURE 98.9 [degF] 10/14/2020 15:17:00 RESPIRATION RATE 16.0 /min 10/14/2020 23:18:49 INTRAVASCULAR SYSTOLIC 110.0 mm[Hg] 10/14/2020 23:18: 49 INTRAVASCULAR DIASTOLIC 66.0 mm[Hg] 10/14/2020 23:18 :49 BODY TEMPERATURE 98.9 [degF] 10/14/2020 23:18:49 HEART BEAT 68.0 {beats}/min 10/14/2020 23:18:49 OXYGEN SATURATION 97.0 % 10/14/2020 23:18:49 BODY TEMPERATURE 98.9 [degF] 10/15/2020 0:20:00 BODY TEMPERATURE 98.6 [degF] 10/15/2020 7:34:00 BODY TEMPERATURE 98.8 [degF] 10/15/2020 16:00:00 RESPIRATION RATE 18.0 /min 10/15/2020 19:51:41 INTRAVASCULAR SYSTOLIC 118.0 mm[Hg] 10/15/2020 19:51: 41 INTRAVASCULAR DIASTOLIC 72.0 mm[Hg] 10/15/2020 19:51 :41 HEART BEAT 68.0 {beats}/min 10/15/2020 19:51:41 OXYGEN SATURATION 98.0 % 10/15/2020 19:51:41 BODY TEMPERATURE 98.8 [degF] 10/15/2020 22:38:00 BODY TEMPERATURE 98.4 [degF] 10/16/2020 6:11:00 RESPIRATION RATE 18.0 /min 10/16/2020 15:35:01 INTRAVASCULAR SYSTOLIC 112.0 mm[Hg] 10/16/2020 15:35: 01 INTRAVASCULAR DIASTOLIC 70.0 mm[Hg] 10/16/2020 15:35 :01 BODY TEMPERATURE 98.4 [degF] 10/16/2020 15:35:01 HEART BEAT 70.0 {beats}/min 10/16/2020 15:35:01 OXYGEN SATURATION 98.0 % 10/16/2020 15:35:01 BODY TEMPERATURE 98.4 [degF] 10/16/2020 17:19:00 BODY TEMPERATURE 98.1 [degF] 10/16/2020 23:08:00 BODY TEMPERATURE 98.4 [degF] 10/17/2020 11:26:00 Immunizations Vaccine Date Status Reason influenza, high dose seasonal, preservative-free 08/15/2020 Refused Resident Refused Social History Smoking Status Start Date End Date Unknown if ever smoked 10/17/2020 13:26:18
--- OUTSIDE RECORDS SUMMARY | 2020-12-01 05:15 | CCD ---
Author Author [facility] Organization [facility] Address [address], [place] [address] Care Team Providers Care Inspection And Testing Supervisor Name Role Phone Jim PEARSON, Bunny Unavailable Felecia Aguilar NP Unavailable Gita Tompkins MA Unavailable ENCOUNTERS Encounter Performer Loca tion Date Insomnia [SNOMED-CT: 605713498] [facility] 10-08-2020 Fibromyalgia [SNOMED-CT: 457752873] Dr[facility] 10-08-2020 Chronic obstructive pulmonary disease [SNOMED-CT: 1364 5005] [facility] 10-08-2020 Sjogren's disease [SNOMED-CT: 02287190] Dr[facility] 10-08-2020 Headache [ICD10: R51.] [facility] 09-27-2020 Chronic pain [SNOMED-CT: 52882242] Radha [facility] 09-27-2020 Insomnia [SNOMED-CT: 269659136] [facility] 09-27-2020 Bipolar disorder [SNOMED-CT: 95714446] Dr[facility] 09-27-2020 Bipolar disorder [SNOMED-CT: 49157764] [facility] 09-12-2020 Chronic obstructive pulmonary disease [SNOMED-CT: 1364 5005] [facility] 09-12-2020 Hypertension [SNOMED-CT: 18596656] Rad[facility] 09-12-2020 Anemia [SNOMED-CT: 744864967] Dr[facility] Patti [facility] 09-12-2020 Bipolar disorder [SNOMED-CT: 37256251] [facility] 09-03-2020 Rhinitis [SNOMED-CT: 49904380] Dr[facility] Aubrey [facility] 09-03-2020 Sjogren's disease [SNOMED-CT: 15512347] Dr[facility] 09-03-2020 Fibromyalgia [SNOMED-CT: 140405735] [facility] 09-03-2020 Chronic kidney disease [SNOMED-CT: 302425522] [facility] 08-23-2020 Hypertension [SNOMED-CT: 64518256] Rad[facility] 08-23-2020 Depression [SNOMED-CT: 56374573] Dr[facility] 08-23-2020 Bipolar disorder [SNOMED-CT: 22302557] Dr[facility] 08-23-2020 Chronic obstructive pulmonary disease [SNOMED-CT: 1364 5005] Dr[facility] B[facility] 08-13-2020 Chronic kidney disease [SNOMED-CT: 982909750] [facility] 08-13-2020 Hypertension [SNOMED-CT: 05910632] [facility] 08-13-2020 Anemia [SNOMED-CT: 608760428] Dr[facility] Patti [facility] 08-13-2020 Dyspepsia [SNOMED-CT: 130665807] Dr[facility] 08-09-2020 Bipolar disorder [SNOMED-CT: 42628606] [facility] 08-09-2020 Hypothyroidism [SNOMED-CT: 77851125] Dr[facility] Bunyn [facility] 08-09-2020 Fibromyalgia [SNOMED-CT: 940825932] [facility] 08-09-2020 Lupus [SNOMED-CT: 391082605] Dr[facility] Dominik [facility] 07-26-2020 Chronic pain [SNOMED-CT: 86582476] [facility] 07-26-2020 Migraine [SNOMED-CT: 34368428] Dr[facility] Aubrey [facility] 07-26-2020 Bipolar disorder [SNOMED-CT: 18049938] Dr[facility] 07-26-2020 Bipolar disorder [SNOMED-CT: 84189738] Dr[facility] 07-18-2020 Hypertension [SNOMED-CT: 00723694] [facility] 07-18-2020 Chronic obstructive pulmonary disease [SNOMED-CT: 1364 5005] [facility] 07-18-2020 Chronic kidney disease [SNOMED-CT: 367458438] Dr[facility] B[facility] 07-18-2020 Chronic pain [SNOMED-CT: 31286321] [facility] 2020 Bipolar disorder [SNOMED-CT: 50243980] [facility] 2020 Hypothyroidism [SNOMED-CT: 85079440] Dr[facility] B[facility] 2020 Hypertension [SNOMED-CT: 41955993] [facility] 2020 Fibromyalgia [SNOMED-CT: 637218438] Dr[facility] 06-21-2020 Lupus [SNOMED-CT: 973876903] Dr[facility] Dominik [facility] 06-21-2020 Bipolar disorder [SNOMED-CT: 94909817] Dr[facility] 06-21-2020 Frailty [SNOMED-CT: 059688307] Dr[facility] Aubrey [facility] 06-21-2020 Chronic pain [SNOMED-CT: 55459260] [facility] 06-18-2020 Hypothyroidism [SNOMED-CT: 55025609] Dr[facility] Bunny [facility] 06-18-2020 Klebsiella cystitis [SNOMED-CT: 74293850] Dr[facility] 06-18-2020 Sjogren's disease [SNOMED-CT: 02679833] Dr[facility] B[facility] 06-18-2020 Suicidal behavior [SNOMED-CT: 930514174] Dr[facility] B[facility] 06-14-2020 Hypertension [SNOMED-CT: 70966649] [facility] 06-14-2020 Chronic kidney disease [SNOMED-CT: 345823563] Dr[facility] B[facility] 06-14-2020 Chronic obstructive pulmonary disease [SNOMED-CT: 1364 5005] Dr[facility] B[facility] 06-14-2020 Chronic pain [SNOMED-CT: 22456248] [facility] 05-31-2020 Chronic obstructive pulmonary disease [SNOMED-CT: 1364 5005] [facility] 05-31-2020 Chronic kidney disease [SNOMED-CT: 936274859] Dr[facility] B[facility] 05-31-2020 Fibromyalgia [SNOMED-CT: 471223841] Dr[facility] B[facility] 05-31-2020 Chronic pain [SNOMED-CT: 35643500] [facility] 05-28-2020 Bipolar disorder [SNOMED-CT: 48593486] Dr[facility] 05-28-2020 Hypertension [SNOMED-CT: 78938393] [facility] 05-28-2020 Sjogren's disease [SNOMED-CT: 58835667] Dr[facility] Bnuny [facility] 05-28-2020 Sjogren's disease [SNOMED-CT: 48427490] Dr[facility] 05-24-2020 Bipolar disorder [SNOMED-CT: 07746342] Dr[facility] B[facility] 05-24-2020 Sjogren's disease [SNOMED-CT: 87133394] Dr[facility] 05-21-2020 Hypertension [SNOMED-CT: 71665494] [facility] 05-21-2020 Migraine [SNOMED-CT: 77557056] Dr[facility] Aubrey [facility] 05-10-2020 Sjogren's disease [SNOMED-CT: 12907328] Dr[facility] Bunny [facility] 05-10-2020 Hypertension [SNOMED-CT: 76640281] [facility] 05-10-2020 Sjogren's disease [SNOMED-CT: 94104433] Dr[facility] 04-30-2020 Hypertension [SNOMED-CT: 59971157] [facility] 04-30-2020 Anemia [SNOMED-CT: 881007239] Dr[facility] Patti [facility] 04-30-2020 Sjogren's disease [SNOMED-CT: 30883688] Dr[facility] 04-18-2020 Hypertension [SNOMED-CT: 91122756] [facility] 04-18-2020 Obstructive uropathy [SNOMED-CT: 5726598] Dr[facility] B[facility] 04-18-2020 Chronic obstructive pulmonary disease [SNOMED-CT: 1364 5005] Dr[facility] B[facility] 04-18-2020 Klebsiella cystitis [SNOMED-CT: 91086846] Dr[facility] B[facility] 04-04-2020 Migraine [SNOMED-CT: 85893570] Dr[facility] Aubrey [facility] 04-04-2020 Sjogren's disease [SNOMED-CT: 39253232] Dr[facility] Bunny [facility] 04-04-2020 Hypertension [SNOMED-CT: 14000457] [facility] 04-04-2020 Depression [SNOMED-CT: 16513892] Dr[facility] B[facility] 03-21-2020 Obstructive uropathy [SNOMED-CT: 9308783] Dr[facility] Bunny [facility] 03-21-2020 Obstructive uropathy [SNOMED-CT: 3978895] Dr[facility] B[facility] 03-19-2020 Depression [SNOMED-CT: 26566405] [facility] B[facility] 03-19-2020 Obstructive uropathy [SNOMED-CT: 1943156] Dr[facility] B[facility] 03-14-2020 Hypertension [SNOMED-CT: 96885084] Radha [facility] 03-14-2020 Hypertension [SNOMED-CT: 33567097] [facility] 03-07-2020 Obstructive uropathy [SNOMED-CT: 0111078] Dr[facility] Bunny [facility] 03-07-2020 Chronic obstructive pulmonary disease [SNOMED-CT: 1364 5005] [facility] B[facility] 02-29-2020 Hypertension [SNOMED-CT: 03792047] [facility] 02-29-2020 Hypertension [SNOMED-CT: 78791061] [facility] 02-27-2020 Chronic obstructive pulmonary disease [SNOMED-CT: 1364 5005] [facility] 02-27-2020 Anemia [SNOMED-CT: 252393985] Dr[facility] Patti [facility] 02-27-2020 Sjogren's disease [SNOMED-CT: 25823874] Dr[facility] Bunny [facility] 02-27-2020 Obstructive uropathy [SNOMED-CT: 3327092] Dr[facility] Bunny [facility] 02-08-2020 Hypertension [SNOMED-CT: 90658191] Rad[facility] 02-08-2020 Obstructive uropathy [SNOMED-CT: 4617100] Dr[facility] Bunny [facility] 01-30-2020 Hypertension [SNOMED-CT: 96719132] [facility]ha [facility] 01-30-2020 Depression [SNOMED-CT: 27537676] Dr[facility] Bunny [facility] 01-23-2020 Obstructive uropathy [SNOMED-CT: 7607639] Dr[facility] B[facility] 01-23-2020 Hypokalemia [SNOMED-CT: 90722047] Dr Pako [facility] 01-23-2020 Hypertension [SNOMED-CT: 24058471] [facility] 01-23-2020 Lupus erythematosus [SNOMED-CT: 859987119] Dr[facility] Bunny [facility] 01-18-2020 Depression [SNOMED-CT: 42377545] Dr[facility] B[facility] 01-18-2020 Lupus erythematosus [SNOMED-CT: 723437279] Dr[facility] B[facility] 01-16-2020 Chronic obstructive pulmonary disease [SNOMED-CT: 1364 5005] Dr[facility] B[facility] 01-16-2020 Lupus erythematosus [SNOMED-CT: 801573775] Dr[facility] B[facility] 01-12-2020 Chronic obstructive pulmonary disease [SNOMED-CT: 1364 5005] Dr[facility] B[facility] 01-12-2020 Folic acid deficiency [SNOMED-CT: 288542157] Fe[facility]cia [facility] 01-12-2020 Hypertension [SNOMED-CT: 09228391] Rad[facility] 01-02-2020 Lupus erythematosus [SNOMED-CT: 490573831] Dr[facility] Bunny [facility] 01-02-2020 Chronic obstructive pulmonary disease [SNOMED-CT: 1364 5005] Dr[facility] Bunny [facility] 01-02-2020 Depression [SNOMED-CT: 81640268] Dr[facility] Bunny [facility] 12-26-2019 Migraine [SNOMED-CT: 66230646] Dr[facility] Aubrey [facility] 12-26-2019 Fibromyalgia [SNOMED-CT: 509140421] Dr[facility] Bunny [facility] 12-26-2019 Hypertension [SNOMED-CT: 50140951] Radha [facility] 12-26-2019 Lupus erythematosus [SNOMED-CT: 188098966] Dr[facility] Bunny [facility] 12-15-2019 Lupus erythematosus [SNOMED-CT: 740401825] Dr[facility] Bunny [facility] 12-05-2019 Chronic obstructive pulmonary disease [SNOMED-CT: 1364 5005] Dr[facility] Bunny [facility] 12-05-2019 Hypertension [SNOMED-CT: 03505102] Radha [facility] 12-05-2019 Anemia [SNOMED-CT: 707164402] Dr[facility] Patti [facility] 12-05-2019 Hypertension [SNOMED-CT: 46062206] Rad[facility] 11-07-2019 Chronic obstructive pulmonary disease [SNOMED-CT: 1364 5005] Dr[facility] Bunny [facility] 11-07-2019 Sepsis [SNOMED-CT: 99246877] Dr[facility] Dominik [facility] 11-03-2019 Sepsis [SNOMED-CT: 78168889] Dr[facility] Dominik [facility] 10-12-2019 Sepsis [SNOMED-CT: 30707085] Dr[facility] Dominik [facility] 10-10-2019 Acute respiratory failure [SNOMED-CT: 67809410] Dr[facility] Bunny [facility] 10-06-2019 Encephalopathy [SNOMED-CT: 62763222] Dr[facility] Bunny [facility] 10-06-2019 Sepsis [SNOMED-CT: 73943883] Dr[facility] Dominik [facility] 10-06-2019 Acute kidney injury [SNOMED-CT: 39653186662736069] Dr[facility] Bunny [facility] 10-06-2019 ALLERGIES AND ADVERSE REACTIONS Substance Reaction Sever ity Status Latex (RxNorm: 4091535) -- -- Active Lunesta (RxNorm: Unknown) -- -- Active sulfa drug (RxNorm: 68683) -- -- Active omeprazole (RxNorm: 7646) -- -- Active metoclopramide (RxNorm: 6915) -- -- Active lisinopril (RxNorm: 44695) -- -- Active erythromycin (RxNorm: 4053) -- -- Active levofloxacin (RxNorm: 07660) -- -- Active cephalexin (RxNorm: 2231) -- -- Active buPROPion (RxNorm: 89298) -- -- Active azithromycin (RxNorm: 82559) -- -- Active FUNCTIONAL STATUS There is no cognitive and functional status saved for this patient. IMMUNIZATIONS No known immunization history MEDICAL EQUIPMENT Patient has no history of implanted devices. MEDICATIONS Medication Generic Name Instructions Dosage Start Date Status senna 8.6 mg oral tablet, [RxNorm: 147131] senna 1 tab PO QD 0 08/10/2020 Active methotrexate 2.5 mg oral tablet, [RxNorm: 827742] methotrexate 3 tabs PO QD on Thursday 0 07/30/2020 Active Plaquenil 200 mg oral tablet, [RxNorm: 282973] hydroxychloroquine 1 tab PO BID 0 07/27/2020 Active gabapentin 400 mg oral capsule, [RxNorm: 921771] gabapentin 1 cap PO TID 0 0 Active pilocarpine 5 mg oral tablet, [RxNorm: 7511613] pilocarpine 1 tab PO TID 0 0 Active SUMAtriptan 25 mg oral tablet, [RxNorm: 918097] SUMAtriptan 1 tab PO Q12H PRN 0 07/26/2020 Active levothyroxine 25 mcg (0.025 mg) oral tablet, [RxNorm: 044096] levothyroxine 1/2 tab PO QD 0 07/17/2020 Active ondansetron 4 mg/5 mL oral solution, [RxNorm: 885689] ondansetron Inject 2 mL IM Q6H PRN 0 06/28/2020 Active Nicotine Inhaler 10 mg Unknown Inhale 2 puffs PO Q2H PRN 0 06/26/2020 Active bisacodyl 10 mg rectal suppository, [RxNorm: 298150] bisacodyl Insert 1 MO QD PRN 0 06/19/2020 Active predniSONE 5 mg oral tablet, [RxNorm: 983309] predniSONE 1 tab PO QD 0 06/19/2020 Active baclofen 10 mg oral tablet, [RxNorm: 378842] baclofen 1 tab PO BID 0 0 Active doxepin 25 mg oral capsule, [RxNorm: 9513965] doxepin 1 tab PO BID 0 0 Active Florastor 250 mg oral capsule, [RxNorm: 319185] saccharomyces boulardii lyo 1 cap PO BID 0 06/13/2020 Active magnesium oxide 400 mg (240 mg elemental magnesium) oral tablet, [RxNorm: 099261] magnesium oxide 1 tab PO QPM 0 06/13/2020 Active pentoxifylline 400 mg oral tablet, exten ded release, [RxNorm: 981309] pentoxifylline 1 tab PO BID 0 06/13/2020 Active Spiriva HandiHaler 18 mcg inhalation cap raquel, [RxNorm: 490359] tiotropium Inhale 1 dose PO QAM 0 06/13/2020 Active calcitriol 0.25 mcg oral capsule, [RxNorm: 031059] calcitriol 1 tab PO QHS 0 0 Active cyanocobalamin 1000 mcg oral tablet, ext ended release, [RxNorm: 107444] cyanocobalamin 1 tab PO TID 0 06/12/2020 Active Lopressor 50 mg oral tablet, [RxNorm: 738570] metoprolol 1 tab PO Q12H 0 06/12/20 20 Active traZODone 100 mg oral tablet, [RxNorm: 426250] traZODone 1 tab PO QHS 0 0 Active folic acid 1 mg oral tablet, [RxNorm: 614647] folic acid 1 tab PO QD 0 04/03/2020 Active Multiple Vitamins oral tablet multivitamin 1 tab PO QAM 0 04/03/2020 Active thiamine 100 mg oral tablet, [RxNorm: 186052] thiamine 1 tab PO QAM 0 0 Active acetaminophen 325 mg oral tablet, [RxNorm: 956856] acetaminophen 2 tabs PO Q4H PRN 0 04/02/2020 Active albuterol 90 mcg/inh inhalation aerosol albuterol Inhale 2 puffs PO QID PRN 0 04/02/2020 Active busPIRone 10 mg oral tablet, [RxNorm: 070934] busPIRone 1 tab PO BID 0 0 Active Keppra 500 mg oral tablet, [RxNorm: 378362] levETIRAcetam 1 tab PO QAM and QHS 0 04/02/2020 Active sorbitol 70% oral liquid, [RxNorm: 715004] sorbitol 30 cc PO QD PRN 0 2019 Active INSURANCE PROVIDERS Payer Name Policy Type P olicy ID Covered Green Party ID Policy [employer] [place] [facility] - J13 Health Insurance [id number] [facility] [place] [employer] [place] /[facility]. [id number] DESIRAE Cummings [facility] ASSESSMENTS # Fibromyalgia (M79.7):# Insomnia (G47.00):# Chronic obstructive pulmonary disease (J44.9):# Sjogren's disease (M35.00): Insomnia: Counseled and advised on sleep hygiene. On Trazodone (for bipolar d/o). As she stated that she was on 300mg of Trazodone in the past, will increase it to 150mgQHS and monitor accordingly. Monitor for any adverse drug effects. Fibromyalgia, Chronic pain, DJD : Remains fairly controlled on APAP, Baclofen and Gabapentin. Advised and encouraged to increase activity and range of motion exercises as tolerated. Monitor for worsening pain and adjust treatment accordingly. On Calcium/Vit DCOPD: Remains controlled on inhaled regimen of Spiriva and PRN Albuterol. Continue pulmonary toilet. Monitor for exacerbation and adjust treatment accordinglySjogren's disease, SLE : Remains controlled on Plaquenil, Pilocarpine, Methotrexate and Gabapentin. Advised and encouraged to increase activity and range of motion exercises as tolerated. Monitor for worsening signs and symptoms and adjust treatment plan accordingly. Continue surveillance. Followed by Rheumatology.Frailty: Advised and encouraged to increase oral intake and increased activity and exercise as tolerated. Continue current supportive care and symptomatic treatment. We will closely monitor and adjust care plan and treatment plan accordingly. PROBLEMS Problem Problem Status D ate Started Date Resolved Date Inactivated Lupus [SNOMED-CT: 653940511] Active 07-26-2020 NA NA Hypothyroidism [SNOMED-CT: 84610777] Activ e 06-18-2020 NA NA Klebsiella cystitis [SNOMED-CT: 48891473] Active 04-04-2020 NA NA Headache [ICD10: R51.] Active 09-27-2020 NA NA Insomnia [SNOMED-CT: 121560994] Active 09-27-2020 NA NA Lupus [SNOMED-CT: 133037995] Active 06-21-2020 NA NA Frailty [SNOMED-CT: 733547368] Active 06-21-2020 NA NA Obstructive uropathy [SNOMED-CT: 8365669] Active 01-23-2020 NA NA Hypokalemia [SNOMED-CT: 28207839] Active 01-23-2020 NA NA Chronic kidney disease [SNOMED-CT: 905780710] Active 05-31-2020 NA NA Sjogren's disease [SNOMED-CT: 87953978] Active 02-27-2020 NA NA Dyspepsia [SNOMED-CT: 062688641] Active 08-09-2020 NA NA Flatulent dyspepsia [SNOMED-CT: 210330157] Active 08-09-2020 NA NA Suicidal behavior [SNOMED-CT: 802067359] Active 06-14-2020 NA NA Acute respiratory failure [SNOMED-CT: 30674984] Active 10-06-2019 NA NA Encephalopathy [SNOMED-CT: 48628897] Activ e 10-06-2019 NA NA Rhinitis [SNOMED-CT: 67604586] Active 09-03-2020 NA NA Sepsis [SNOMED-CT: 63026764] Active 10-06-2019 NA NA Folic acid deficiency [SNOMED-CT: 237498371] Active 01-12-2020 NA NA Acute kidney injury [SNOMED-CT: 76120017133981971] Active 10-06-2019 NA NA Depression [SNOMED-CT: 78844244] Active 12-26-2019 NA NA Migraine [SNOMED-CT: 73539936] Active 12-26-2019 NA NA Fibromyalgia [SNOMED-CT: 817694742] Active 12-26-2019 NA NA Lupus erythematosus [SNOMED-CT: 530744775] Active 12-05-2019 NA NA Chronic obstructive pulmonary disease [SNOMED-CT: 1364 5005] Active 12-05-2019 NA NA Hypertension [SNOMED-CT: 58194926] Active 12-05-2019 NA NA Anemia [SNOMED-CT: 309680284] Active 12-05-2019 NA NA Chronic pain [SNOMED-CT: 75046555] Active 05-24-2020 NA NA Bipolar disorder [SNOMED-CT: 14878007] Active 05-24-2020 NA NA PROCEDURES Procedure Date CPT Code Procedure 10/08/2020 11:55:59 [id number] Subsequent nursing facility care, per day, for the evaluation and management of a patient, which requires at least 2 of these 3 perry components: An expanded problem focused interval history; An expanded problem focused examination; Medical decision making 09/27/2020 13:11:09 02459 Subsequent nursing facility care, per day, for the evaluation and management of a patient, which requires at least 2 of these 3 perry components: A detailed interval history; A detailed examination; Medical decision making of moderate complexity. Counseling 09/12/2020 07:57:11 23924 Subsequent nursing facility care, per day, for the evaluation and management of a patient, which requires at least 2 of these 3 perry components: A detailed interval history; A detailed examination; Medical decision making of moderate complexity. Counseling 09/03/2020 21:24:08 17003 Subsequent nursing facility care, per day, for the evaluation and management of a patient, which requires at least 2 of these 3 perry components: An expanded problem focused interval history; An expanded problem focused examination; Medical decision making 08/23/2020 08:02:15 21917 Subsequent nursing facility care, per day, for the evaluation and management of a patient, which requires at least 2 of these 3 perry components: An expanded problem focused interval history; An expanded problem focused examination; Medical decision making 08/13/2020 15:14:00 95847 Subsequent nursing facility care, per day, for the evaluation and management of a patient, which requires at least 2 of these 3 perry components: A detailed interval history; A detailed examination; Medical decision making of moderate complexity. Counseling 08/09/2020 11:45:03 08626 Subsequent nursing facility care, per day, for the evaluation and management of a patient, which requires at least 2 of these 3 perry components: A detailed interval history; A detailed examination; Medical decision making of moderate complexity. Counseling 07/26/2020 15:58:23 [id number] Subsequent nursing facility care, per day, for the evaluation and management of a patient, which requires at least 2 of these 3 perry components: A detailed interval history; A detailed examination; Medical decision making of moderate complexity. Counseling 07/18/2020 07:39:11 [id number] Subsequent nursing facility care, per day, for the evaluation and management of a patient, which requires at least 2 of these 3 perry components: A detailed interval history; A detailed examination; Medical decision making of moderate complexity. Counseling 2020 11:41:50 [id number] Subsequent nursing facility care, per day, for the evaluation and management of a patient, which requires at least 2 of these 3 perry components: A detailed interval history; A detailed examination; Medical decision making of moderate complexity. Counseling 06/21/2020 15:35:51 [id number] Subsequent nursing facility care, per day, for the evaluation and management of a patient, which requires at least 2 of these 3 perry components: A detailed interval history; A detailed examination; Medical decision making of moderate complexity. Counseling 06/18/2020 12:04:28 [id number] Subsequent nursing facility care, per day, for the evaluation and management of a patient, which requires at least 2 of these 3 perry components: A detailed interval history; A detailed examination; Medical decision making of moderate complexity. Counseling 06/14/2020 22:45:35 [id number] Initial nursing facility care, per day, for the evaluation and management of a patient, which requires these 3 perry components: A comprehensive history; A comprehensive examination; and Medical decision making of high complexity. Counseling and/or coordina 06/14/2020 22:45:35 [id number] Advance care planning including the explanation and discussion of advance directives such as standard forms (with completion of such forms, when performed), by the physician or other qualified health emergency care tech; first 30 minutes, [id number] with the patient, family member(s), and/or surrogate 05/31/2020 22:15:00 [id number] Subsequent nursing facility care, per day, for the evaluation and management of a patient, which requires at least 2 of these 3 perry components: An expanded problem focused interval history; An expanded problem focused examination; Medical decision making 05/28/2020 16:07:10 [id number] Subsequent nursing facility care, per day, for the evaluation and management of a patient, which requires at least 2 of these 3 perry components: A detailed interval history; A detailed examination; Medical decision making of moderate complexity. Counseling 05/24/2020 13:58:32 [id number] Subsequent nursing facility care, per day, for the evaluation and management of a patient, which requires at least 2 of these 3 perry components: An expanded problem focused interval history; An expanded problem focused examination; Medical decision making 05/21/2020 11:28:00 [id number] Subsequent nursing facility care, per day, for the evaluation and management of a patient, which requires at least 2 of these 3 perry components: A detailed interval history; A detailed examination; Medical decision making of moderate complexity. Counseling 05/10/2020 12:20:39 [id number] Subsequent nursing facility care, per day, for the evaluation and management of a patient, which requires at least 2 of these 3 perry components: A detailed interval history; A detailed examination; Medical decision making of moderate complexity. Counseling 04/30/2020 08:05:15 [id number] Subsequent nursing facility care, per day, for the evaluation and management of a patient, which requires at least 2 of these 3 perry components: A detailed interval history; A detailed examination; Medical decision making of moderate complexity. Counseling 04/18/2020 08:11:29 [id number] Subsequent nursing facility care, per day, for the evaluation and management of a patient, which requires at least 2 of these 3 perry components: An expanded problem focused interval history; An expanded problem focused examination; Medical decision making 04/04/2020 21:57:28 [id number] Initial nursing facility care, per day, for the evaluation and management of a patient, which requires these 3 perry components: A comprehensive history; A comprehensive examination; and Medical decision making of high complexity. Counseling and/or coordina 04/04/2020 21:57:28 [id number] Advance care planning including the explanation and discussion of advance directives such as standard forms (with completion of such forms, when performed), by the physician or other qualified health emergency care tech; first 30 minutes, [id number] with the patient, family member(s), and/or surrogate 03/21/2020 15:33:19 [id number] Subsequent nursing facility care, per day, for the evaluation and management of a patient, which requires at least 2 of these 3 perry components: An expanded problem focused interval history; An expanded problem focused examination; Medical decision making 03/19/2020 13:37:38 [id number] Subsequent nursing facility care, per day, for the evaluation and management of a patient, which requires at least 2 of these 3 perry components: A detailed interval history; A detailed examination; Medical decision making of moderate complexity. Counseling 03/14/2020 10:32:08 [id number] Subsequent nursing facility care, per day, for the evaluation and management of a patient, which requires at least 2 of these 3 perry components: An expanded problem focused interval history; An expanded problem focused examination; Medical decision making 03/07/2020 13:03:22 [id number] Subsequent nursing facility care, per day, for the evaluation and management of a patient, which requires at least 2 of these 3 perry components: An expanded problem focused interval history; An expanded problem focused examination; Medical decision making 02/29/2020 15:10:12 [id number] Subsequent nursing facility care, per day, for the evaluation and management of a patient, which requires at least 2 of these 3 perry components: An expanded problem focused interval history; An expanded problem focused examination; Medical decision making 02/27/2020 09:49:26 [id number] Subsequent nursing facility care, per day, for the evaluation and management of a patient, which requires at least 2 of these 3 perry components: A detailed interval history; A detailed examination; Medical decision making of moderate complexity. Counseling 02/08/2020 14:00:33 01546 Subsequent nursing facility care, per day, for the evaluation and management of a patient, which requires at least 2 of these 3 perry components: An expanded problem focused interval history; An expanded problem focused examination; Medical decision making 01/30/2020 10:26:15 53593 Subsequent nursing facility care, per day, for the evaluation and management of a patient, which requires at least 2 of these 3 perry components: An expanded problem focused interval history; An expanded problem focused examination; Medical decision making 01/23/2020 14:46:01 [id number] Subsequent nursing facility care, per day, for the evaluation and management of a patient, which requires at least 2 of these 3 perry components: A detailed interval history; A detailed examination; Medical decision making of moderate complexity. Counseling 01/18/2020 10:46:05 [id number] Subsequent nursing facility care, per day, for the evaluation and management of a patient, which requires at least 2 of these 3 perry components: An expanded problem focused interval history; An expanded problem focused examination; Medical decision making 01/16/2020 11:04:02 52856 Subsequent nursing facility care, per day, for the evaluation and management of a patient, which requires at least 2 of these 3 perry components: An expanded problem focused interval history; An expanded problem focused examination; Medical decision making 01/12/2020 10:04:10 [id number] Subsequent nursing facility care, per day, for the evaluation and management of a patient, which requires at least 2 of these 3 perry components: An expanded problem focused interval history; An expanded problem focused examination; Medical decision making 01/02/2020 09:46:14 [id number] Subsequent nursing facility care, per day, for the evaluation and management of a patient, which requires at least 2 of these 3 perry components: A detailed interval history; A detailed examination; Medical decision making of moderate complexity. Counseling 12/26/2019 11:47:04 [id number] Subsequent nursing facility care, per day, for the evaluation and management of a patient, which requires at least 2 of these 3 perry components: An expanded problem focused interval history; An expanded problem focused examination; Medical decision making 12/15/2019 11:29:15 [id number] Subsequent nursing facility care, per day, for the evaluation and management of a patient, which requires at least 2 of these 3 perry components: An expanded problem focused interval history; An expanded problem focused examination; Medical decision making 12/08/2019 18:08:20 [id number] Brief emotional/behavioral assessment (eg, depression inventory, attention- deficit/hyperactivity disorder [ADHD] scale), with scoring and documentation, per standardized instrument 12/08/2019 18:08:20 [id number] Test Administration and Scoring 12/08/2019 18:08:20 [id number] Post Test Interpretation and Integration of Results 12/05/2019 10:06:18 [id number] Subsequent nursing facility care, per day, for the evaluation and management of a patient, which requires at least 2 of these 3 perry components: A detailed interval history; A detailed examination; Medical decision making of moderate complexity. Counseling 11/07/2019 09:40:44 [id number] Subsequent nursing facility care, per day, for the evaluation and management of a patient, which requires at least 2 of these 3 perry components: A detailed interval history; A detailed examination; Medical decision making of moderate complexity. Counseling 11/03/2019 10:51:44 14100 Subsequent nursing facility care, per day, for the evaluation and management of a patient, which requires at least 2 of these 3 perry components: An expanded problem focused interval history; An expanded problem focused examination; Medical decision making 10/12/2019 09:22:34 [id number] Subsequent nursing facility care, per day, for the evaluation and management of a patient, which requires at least 2 of these 3 perry components: An expanded problem focused interval history; An expanded problem focused examination; Medical decision making 10/10/2019 15:04:34 [id number] Subsequent nursing facility care, per day, for the evaluation and management of a patient, which requires at least 2 of these 3 perry components: An expanded problem focused interval history; An expanded problem focused examination; Medical decision making 10/07/2019 16:28:38 [id number] Prolonged evaluation and management service before and/or after direct patient care; first hour 10/06/2019 19:20:45 [id number] Initial nursing facility care, per day, for the evaluation and management of a patient, which requires these 3 perry components: A comprehensive history; A comprehensive examination; and Medical decision making of high complexity. Counseling and/or coordina REASON FOR REFERRAL No Reason for Referral information available. RESULTS Result Type Result Value Relevant Reference Range Interpretation Date COVID 19 Not Detected N ot Detected No Flag 10/06/2020 22:39:10 COVID 19 Not Detected N ot Detected No Flag 10/01/2020 08:00:57 COVID 19 Not Detected N ot Detected No Flag 09/22/2020 22:12:00 COVID 19 Not Detected N ot Detected No Flag 09/16/2020 20:19:34 COVID 19 Not Detected N ot Detected No Flag 09/13/2020 10:20:00 FREE T4 (FREE THYROXINE) 1.21 NG/DL NG/DL 0.76-1.78 N 08/15/2020 08:46:47 TSH 2.848 uIU/ML uIU/ML 0.470-4.200 N 08/15/2020 08:46:47 FREE T4 (FREE THYROXINE) 0.84 NG/DL NG/DL 0.76-1.78 N 07/31/2020 07:50:03 T3FREE 2.6 PG/ML PG/ML 2 .3-4.2 N 07/31/2020 07:50:03 TSH 0.905 uIU/ML uIU/ML 0.470-4.200 N 07/31/2020 07:50:03 GFR > 90.0 ML/MIN ML/MIN -- No Flag 06/18/2020 08:23:40 SODIUM 136 MEQ/L MEQ/L 1 35-145 N 06/18/2020 08:23:40 POTASSIUM 4.4 MEQ/L MEQ/L 3.5-5.3 N 06/18/2020 08:23:40 CHLORIDE 101 MEQ/L MEQ/L 94-110 N 06/18/2020 08:23:40 CARBON DIOXIDE 25 MEQ/L MEQ/L 22-33 N 06/18/2020 08:23:40 ANION GAP 14 5-16 N 06/18/2020 08:23:40 BLOOD UREA NITRO 9 MG/DL MG/DL 7-25 N 06/18/2020 08:23:40 CREATININE 0.6 MG/DL MG/DL 0.6-1.4 N 06/18/2020 08:23:40 BUN/CREAT RATIO 15 8-36 N 06/18/2020 08:23:40 GLUCOSE 79 MG/DL MG/DL 7 0-100 N 06/18/2020 08:23:40 CA 8.9 MG/DL MG/DL 8.7-1 0.5 N 06/18/2020 08:23:40 BILIRUBIN,TOTAL 0.3 MG/DL MG/DL 0.1-1.3 N 06/18/2020 08:23:40 AST 24 U/L U/L 5-40 N 06/18/2020 08:23:40 ALT 37 U/L U/L 5-48 N 06/18/2020 08:23:40 ALKALINE PHOSPHATASE 86 U/L U/L 40-140 N 06/18/2020 08:23:40 TOTAL PROTEIN 5.2 G/DL G/DL 5.9-8.3 L 06/18/2020 08:23:40 ALBUMIN 3.6 G/DL G/DL 3. 0-5.1 N 06/18/2020 08:23:40 GLOBULIN 1.6 G/DL G/DL 1 .5-3.5 N 06/18/2020 08:23:40 ALB/GLOB RATIO 2.3 G/DL G/DL 1.0-3.0 N 06/18/2020 08:23:40 MAGNESIUM 1.7 mg/dl mg/dl 1.8-2.4 L 06/18/2020 08:23:40 FREE T4 (FREE THYROXINE) 1.02 NG/DL NG/DL 0.76-1.78 N 06/18/2020 08:23:40 T3FREE 3.4 PG/ML PG/ML 2 .3-4.2 N 06/18/2020 08:23:40 TSH 0.843 uIU/ML uIU/ML 0.470-4.200 N 06/18/2020 08:23:40 WHITE BLOOD COUNT 5.31 10 3/uL 10 4.00-10.50 N 06/18/2020 07:55:18 RED BLOOD COUNT 3.87 10 6/uL 10 3.90-5.20 L 06/18/2020 07:55:18 HEMOGLOBIN 11.2 G/DL G/DL 11.5-15.6 L 06/18/2020 07:55:18 HEMATOCRIT 33.0 % % 35.0 -46.0 L 06/18/2020 07:55:18 MCV 85.3 FL FL 80.0-100.0 N 06/18/2020 07:55:18 MCH 28.9 PG PG 27.0-34.0 N 06/18/2020 07:55:18 MCHC 33.9 G/DL G/DL 32-36 N 06/18/2020 07:55:18 RDW 14.4 % % 11.5-14.5 N 06/18/2020 07:55:18 PLATELET COUNT 212 10 3/uL 10 130-400 N 06/18/2020 07:55:18 MPV 11.8 FL FL 8.7-13.2 N 06/18/2020 07:55:18 GRAN % (AUTO) 48.2 % % 4 2.0-75.0 N 06/18/2020 07:55:18 LYMPH % (AUTO) 40.5 % % 20.0-51.0 N 06/18/2020 07:55:18 MONO % (AUTO) 6.8 % % 2. 0-15.0 N 06/18/2020 07:55:18 EOS % (AUTO) 3.0 % % 0.0 -11.0 N 06/18/2020 07:55:18 WHITE BLOOD COUNT 5.31 10^3/uL 10\^3/u 4.00- 10.50 N 06/18/2020 07:55:18 RED BLOOD COUNT 3.87 10^6/uL 10\^6/u 3.90- 5.20 L 06/18/2020 07:55:18 HEMOGLOBIN 11.2 G/DL G/DL 11.5-15.6 L 06/18/2020 07:55:18 HEMATOCRIT 33.0 % % 35.0 -46.0 L 06/18/2020 07:55:18 MCV 85.3 FL FL 80.0-100.0 N 06/18/2020 07:55:18 MCH 28.9 PG PG 27.0-34.0 N 06/18/2020 07:55:18 MCHC 33.9 G/DL G/DL 32-36 N 06/18/2020 07:55:18 RDW 14.4 % % 11.5-14.5 N 06/18/2020 07:55:18 BASO % (AUTO) 1.3 % % 0. 0-2.0 N 06/18/2020 07:55:18 IG % (AUTO) 0.2 % % 1.00 -5.00 No Flag 06/18/2020 07:55:18 IG # (AUTO) 0.0 10 3/uL 10 <0.5 No Flag 06/18/2020 07:55:18 GRAN # (AUTO) 2.56 10 3/uL 10 1.50-6.50 N 06/18/2020 07:55:18 LYMPH # (AUTO) 2.2 k/uL k/uL 1.0-5.0 N 06/18/2020 07:55:18 MONO # (AUTO) 0.36 k/uL k/uL 0.20-1.50 N 06/18/2020 07:55:18 EOS # (AUTO) 0.16 10 3/uL 10 0.00-1.10 N 06/18/2020 07:55:18 BASO # (AUTO) 0.07 10 3/uL 10 0.00-0.20 N 06/18/2020 07:55:18 PLATELET COUNT 212 10^3/uL 10\^3/u 130-400 N 06/18/2020 07:55:18 MPV 11.8 FL FL 8.7-13.2 N 06/18/2020 07:55:18 GRAN % (AUTO) 48.2 % % 4 2.0-75.0 N 06/18/2020 07:55:18 LYMPH % (AUTO) 40.5 % % 20.0-51.0 N 06/18/2020 07:55:18 MONO % (AUTO) 6.8 % % 2. 0-15.0 N 06/18/2020 07:55:18 EOS % (AUTO) 3.0 % % 0.0 -11.0 N 06/18/2020 07:55:18 BASO % (AUTO) 1.3 % % 0. 0-2.0 N 06/18/2020 07:55:18 IG % (AUTO) 0.2 % % 1.00 -5.00 No Flag 06/18/2020 07:55:18 IG # (AUTO) 0.0 10^3/uL 10\^3/u <0.5 No Flag 06/18/2020 07:55:18 GRAN # (AUTO) 2.56 10^3/uL 10\^3/u 1.50-6.50 N 06/18/2020 07:55:18 LYMPH # (AUTO) 2.2 k/uL k/uL 1.0-5.0 N 06/18/2020 07:55:18 MONO # (AUTO) 0.36 k/uL k/uL 0.20-1.50 N 06/18/2020 07:55:18 EOS # (AUTO) 0.16 10^3/uL 10\^3/u 0.00-1.10 N 06/18/2020 07:55:18 BASO # (AUTO) 0.07 10^3/uL 10\^3/u 0.00-0.20 N 06/18/2020 07:55:18 GFR > 90.0 ML/MIN ML/MIN -- No Flag 06/13/2020 07:36:13 SODIUM 135 MEQ/L MEQ/L 1 35-145 N 06/13/2020 07:36:13 POTASSIUM 4.2 MEQ/L MEQ/L 3.5-5.3 N 06/13/2020 07:36:13 CHLORIDE 102 MEQ/L MEQ/L 94-110 N 06/13/2020 07:36:13 CARBON DIOXIDE 27 MEQ/L MEQ/L 22-33 N 06/13/2020 07:36:13 ANION GAP 10 5-16 N 06/13/2020 07:36:13 BLOOD UREA NITRO 14 MG/DL MG/DL 7-25 N 06/13/2020 07:36:13 CREATININE 0.7 MG/DL MG/DL 0.6-1.4 N 06/13/2020 07:36:13 BUN/CREAT RATIO 20 8-36 N 06/13/2020 07:36:13 GLUCOSE 74 MG/DL MG/DL 7 0-100 N 06/13/2020 07:36:13 CA 8.7 MG/DL MG/DL 8.7-1 0.5 N 06/13/2020 07:36:13 BILIRUBIN,TOTAL 0.2 MG/DL MG/DL 0.1-1.3 N 06/13/2020 07:36:13 AST 17 U/L U/L 5-40 N 06/13/2020 07:36:13 ALT 27 U/L U/L 5-48 N 06/13/2020 07:36:13 ALKALINE PHOSPHATASE 89 U/L U/L 40-140 N 06/13/2020 07:36:13 TOTAL PROTEIN 4.9 G/DL G/DL 5.9-8.3 L 06/13/2020 07:36:13 ALBUMIN 3.6 G/DL G/DL 3. 0-5.1 N 06/13/2020 07:36:13 GLOBULIN 1.3 G/DL G/DL 1 .5-3.5 L 06/13/2020 07:36:13 ALB/GLOB RATIO 2.8 G/DL G/DL 1.0-3.0 N 06/13/2020 07:36:13 LYMPH % (AUTO) 43.6 % % 20.0-51.0 N 06/13/2020 07:26:59 MONO % (AUTO) 8.6 % % 2. 0-15.0 N 06/13/2020 07:26:59 EOS % (AUTO) 3.7 % % 0.0 -11.0 N 06/13/2020 07:26:59 BASO % (AUTO) 1.1 % % 0. 0-2.0 N 06/13/2020 07:26:59 IG % (AUTO) 0.3 % % 1.00 -5.00 No Flag 06/13/2020 07:26:59 IG # (AUTO) 0.0 10^3/uL 10\^3/u <0.5 No Flag 06/13/2020 07:26:59 GRAN # (AUTO) 2.67 10^3/uL 10\^3/u 1.50-6.50 N 06/13/2020 07:26:59 LYMPH # (AUTO) 2.7 k/uL k/uL 1.0-5.0 N 06/13/2020 07:26:59 MONO # (AUTO) 0.54 k/uL k/uL 0.20-1.50 N 06/13/2020 07:26:59 EOS # (AUTO) 0.23 10^3/uL 10\^3/u 0.00-1.10 N 06/13/2020 07:26:59 BASO # (AUTO) 0.07 10^3/uL 10\^3/u 0.00-0.20 N 06/13/2020 07:26:59 WHITE BLOOD COUNT 6.26 10 3/uL 10 4.00-10.50 N 06/13/2020 07:26:59 RED BLOOD COUNT 3.53 10 6/uL 10 3.90-5.20 L 06/13/2020 07:26:59 HEMOGLOBIN 10.2 G/DL G/DL 11.5-15.6 L 06/13/2020 07:26:59 HEMATOCRIT 30.1 % % 35.0 -46.0 L 06/13/2020 07:26:59 MCV 85.3 FL FL 80.0-100.0 N 06/13/2020 07:26:59 MCH 28.9 PG PG 27.0-34.0 N 06/13/2020 07:26:59 MCHC 33.9 G/DL G/DL 32-36 N 06/13/2020 07:26:59 RDW 14.4 % % 11.5-14.5 N 06/13/2020 07:26:59 PLATELET COUNT 259 10 3/uL 10 130-400 N 06/13/2020 07:26:59 MPV 11.6 FL FL 8.7-13.2 N 06/13/2020 07:26:59 GRAN % (AUTO) 42.7 % % 4 2.0-75.0 N 06/13/2020 07:26:59 LYMPH % (AUTO) 43.6 % % 20.0-51.0 N 06/13/2020 07:26:59 MONO % (AUTO) 8.6 % % 2. 0-15.0 N 06/13/2020 07:26:59 EOS % (AUTO) 3.7 % % 0.0 -11.0 N 06/13/2020 07:26:59 BASO % (AUTO) 1.1 % % 0. 0-2.0 N 06/13/2020 07:26:59 IG % (AUTO) 0.3 % % 1.00 -5.00 No Flag 06/13/2020 07:26:59 IG # (AUTO) 0.0 10 3/uL 10 <0.5 No Flag 06/13/2020 07:26:59 GRAN # (AUTO) 2.67 10 3/uL 10 1.50-6.50 N 06/13/2020 07:26:59 LYMPH # (AUTO) 2.7 k/uL k/uL 1.0-5.0 N 06/13/2020 07:26:59 MONO # (AUTO) 0.54 k/uL k/uL 0.20-1.50 N 06/13/2020 07:26:59 EOS # (AUTO) 0.23 10 3/uL 10 0.00-1.10 N 06/13/2020 07:26:59 BASO # (AUTO) 0.07 10 3/uL 10 0.00-0.20 N 06/13/2020 07:26:59 WHITE BLOOD COUNT 6.26 10^3/uL 10\^3/u 4.00- 10.50 N 06/13/2020 07:26:59 RED BLOOD COUNT 3.53 10^6/uL 10\^6/u 3.90- 5.20 L 06/13/2020 07:26:59 HEMOGLOBIN 10.2 G/DL G/DL 11.5-15.6 L 06/13/2020 07:26:59 HEMATOCRIT 30.1 % % 35.0 -46.0 L 06/13/2020 07:26:59 MCV 85.3 FL FL 80.0-100.0 N 06/13/2020 07:26:59 MCH 28.9 PG PG 27.0-34.0 N 06/13/2020 07:26:59 MCHC 33.9 G/DL G/DL 32-36 N 06/13/2020 07:26:59 RDW 14.4 % % 11.5-14.5 N 06/13/2020 07:26:59 PLATELET COUNT 259 10^3/uL 10\^3/u 130-400 N 06/13/2020 07:26:59 MPV 11.6 FL FL 8.7-13.2 N 06/13/2020 07:26:59 GRAN % (AUTO) 42.7 % % 4 2.0-75.0 N 06/13/2020 07:26:59 GFR > 90.0 ML/MIN ML/MIN -- No Flag 04/05/2020 08:23:19 SODIUM 145 MEQ/L MEQ/L 1 35-145 N 04/05/2020 08:23:19 POTASSIUM 4.0 MEQ/L MEQ/L 3.5-5.3 N 04/05/2020 08:23:19 CHLORIDE 111 MEQ/L MEQ/L 94-110 H 04/05/2020 08:23:19 CARBON DIOXIDE 27 MEQ/L MEQ/L 22-33 N 04/05/2020 08:23:19 ANION GAP 11 5-16 N 04/05/2020 08:23:19 BLOOD UREA NITRO < 5 MG/DL MG/DL 7-25 L 04/05/2020 08:23:19 CREATININE 0.7 MG/DL MG/DL 0.6-1.4 N 04/05/2020 08:23:19 BUN/CREAT RATIO 7 8-36 L 04/05/2020 08:23:19 GLUCOSE 81 MG/DL MG/DL 7 0-100 N 04/05/2020 08:23:19 CA 8.9 MG/DL MG/DL 8.7-1 0.5 N 04/05/2020 08:23:19 BILIRUBIN,TOTAL 0.2 MG/DL MG/DL 0.1-1.3 N 04/05/2020 08:23:19 AST 14 U/L U/L 5-40 N 04/05/2020 08:23:19 ALT 19 U/L U/L 5-48 N 04/05/2020 08:23:19 ALKALINE PHOSPHATASE 60 U/L U/L 40-140 N 04/05/2020 08:23:19 TOTAL PROTEIN 5.0 G/DL G/DL 5.9-8.3 L 04/05/2020 08:23:19 ALBUMIN 3.5 G/DL G/DL 3. 0-5.1 N 04/05/2020 08:23:19 GLOBULIN 1.5 G/DL G/DL 1 .5-3.5 N 04/05/2020 08:23:19 ALB/GLOB RATIO 2.3 G/DL G/DL 1.0-3.0 N 04/05/2020 08:23:19 WHITE BLOOD COUNT 6.63 10 3/uL 10 4.00-10.50 N 04/05/2020 08:15:36 RED BLOOD COUNT 3.91 10 6/uL 10 3.90-5.20 N 04/05/2020 08:15:36 HEMOGLOBIN 11.4 G/DL G/DL 11.5-15.6 L 04/05/2020 08:15:36 HEMATOCRIT 33.7 % % 35.0 -46.0 L 04/05/2020 08:15:36 MCV 86.2 FL FL 80.0-100.0 N 04/05/2020 08:15:36 MCH 29.2 PG PG 27.0-34.0 N 04/05/2020 08:15:36 MCHC 33.8 G/DL G/DL 32-36 N 04/05/2020 08:15:36 RDW 13.0 % % 11.5-14.5 N 04/05/2020 08:15:36 PLATELET COUNT 213 10 3/uL 10 130-400 No Flag 04/05/2020 08:15:36 MPV 11.0 FL FL 8.7-13.2 N 04/05/2020 08:15:36 GRAN % (AUTO) 35.9 % % 4 2.0-75.0 L 04/05/2020 08:15:36 LYMPH % (AUTO) 53.1 % % 20.0-51.0 H 04/05/2020 08:15:36 MONO % (AUTO) 6.9 % % 2. 0-15.0 N 04/05/2020 08:15:36 EOS % (AUTO) 2.6 % % 0.0 -11.0 N 04/05/2020 08:15:36 BASO % (AUTO) 1.2 % % 0. 0-2.0 N 04/05/2020 08:15:36 IG % (AUTO) 0.3 % % 1.00 -5.00 No Flag 04/05/2020 08:15:36 IG # (AUTO) 0.0 10 3/uL 10 <0.5 No Flag 04/05/2020 08:15:36 GRAN # (AUTO) 2.38 10 3/uL 10 1.50-6.50 N 04/05/2020 08:15:36 LYMPH # (AUTO) 3.5 k/uL k/uL 1.0-5.0 N 04/05/2020 08:15:36 MONO # (AUTO) 0.46 k/uL k/uL 0.20-1.50 N 04/05/2020 08:15:36 EOS # (AUTO) 0.17 10 3/uL 10 0.00-1.10 N 04/05/2020 08:15:36 BASO # (AUTO) 0.08 10 3/uL 10 0.00-0.20 N 04/05/2020 08:15:36 GFR > 90.0 ML/MIN ML/MIN -- No Flag 04/03/2020 08:20:27 SODIUM 144 MEQ/L MEQ/L 1 35-145 N 04/03/2020 08:20:27 POTASSIUM 4.0 MEQ/L MEQ/L 3.5-5.3 N 04/03/2020 08:20:27 CHLORIDE 111 MEQ/L MEQ/L 94-110 H 04/03/2020 08:20:27 CARBON DIOXIDE 26 MEQ/L MEQ/L 22-33 N 04/03/2020 08:20:27 ANION GAP 11 5-16 N 04/03/2020 08:20:27 BLOOD UREA NITRO < 5 MG/DL MG/DL 7-25 L 04/03/2020 08:20:27 CREATININE 0.7 MG/DL MG/DL 0.6-1.4 N 04/03/2020 08:20:27 BUN/CREAT RATIO 7 8-36 L 04/03/2020 08:20:27 GLUCOSE 86 MG/DL MG/DL 7 0-100 N 04/03/2020 08:20:27 CA 8.3 MG/DL MG/DL 8.7-1 0.5 L 04/03/2020 08:20:27 BILIRUBIN,TOTAL 0.2 MG/DL MG/DL 0.1-1.3 N 04/03/2020 08:20:27 AST 17 U/L U/L 5-40 N 04/03/2020 08:20:27 ALT 23 U/L U/L 5-48 N 04/03/2020 08:20:27 ALKALINE PHOSPHATASE 56 U/L U/L 40-140 N 04/03/2020 08:20:27 TOTAL PROTEIN 4.6 G/DL G/DL 5.9-8.3 L 04/03/2020 08:20:27 ALBUMIN 3.1 G/DL G/DL 3. 0-5.1 N 04/03/2020 08:20:27 GLOBULIN 1.5 G/DL G/DL 1 .5-3.5 N 04/03/2020 08:20:27 ALB/GLOB RATIO 2.1 G/DL G/DL 1.0-3.0 N 04/03/2020 08:20:27 WHITE BLOOD COUNT 6.58 10 3/uL 10 4.00-10.50 N 04/03/2020 07:53:22 RED BLOOD COUNT 3.61 10 6/uL 10 3.90-5.20 L 04/03/2020 07:53:22 HEMOGLOBIN 10.7 G/DL G/DL 11.5-15.6 L 04/03/2020 07:53:22 HEMATOCRIT 31.6 % % 35.0 -46.0 L 04/03/2020 07:53:22 MCV 87.5 FL FL 80.0-100.0 N 04/03/2020 07:53:22 MCH 29.6 PG PG 27.0-34.0 N 04/03/2020 07:53:22 MCHC 33.9 G/DL G/DL 32-36 N 04/03/2020 07:53:22 RDW 13.0 % % 11.5-14.5 N 04/03/2020 07:53:22 PLATELET COUNT 181 10 3/uL 10 130-400 N 04/03/2020 07:53:22 MPV 11.2 FL FL 8.7-13.2 N 04/03/2020 07:53:22 GRAN % (AUTO) 44.0 % % 4 2.0-75.0 N 04/03/2020 07:53:22 LYMPH % (AUTO) 44.1 % % 20.0-51.0 N 04/03/2020 07:53:22 MONO % (AUTO) 8.2 % % 2. 0-15.0 N 04/03/2020 07:53:22 EOS % (AUTO) 2.6 % % 0.0 -11.0 N 04/03/2020 07:53:22 WHITE BLOOD COUNT 6.58 10^3/uL 10\^3/u 4.00- 10.50 N 04/03/2020 07:53:22 RED BLOOD COUNT 3.61 10^6/uL 10\^6/u 3.90- 5.20 L 04/03/2020 07:53:22 HEMOGLOBIN 10.7 G/DL G/DL 11.5-15.6 L 04/03/2020 07:53:22 HEMATOCRIT 31.6 % % 35.0 -46.0 L 04/03/2020 07:53:22 MCV 87.5 FL FL 80.0-100.0 N 04/03/2020 07:53:22 MCH 29.6 PG PG 27.0-34.0 N 04/03/2020 07:53:22 MCHC 33.9 G/DL G/DL 32-36 N 04/03/2020 07:53:22 RDW 13.0 % % 11.5-14.5 N 04/03/2020 07:53:22 BASO % (AUTO) 0.9 % % 0. 0-2.0 N 04/03/2020 07:53:22 IG % (AUTO) 0.2 % % 1.00 -5.00 No Flag 04/03/2020 07:53:22 IG # (AUTO) 0.0 10 3/uL 10 <0.5 No Flag 04/03/2020 07:53:22 GRAN # (AUTO) 2.90 10 3/uL 10 1.50-6.50 N 04/03/2020 07:53:22 LYMPH # (AUTO) 2.9 k/uL k/uL 1.0-5.0 N 04/03/2020 07:53:22 MONO # (AUTO) 0.54 k/uL k/uL 0.20-1.50 N 04/03/2020 07:53:22 EOS # (AUTO) 0.17 10 3/uL 10 0.00-1.10 N 04/03/2020 07:53:22 BASO # (AUTO) 0.06 10 3/uL 10 0.00-0.20 N 04/03/2020 07:53:22 PLATELET COUNT 181 10^3/uL 10\^3/u 130-400 N 04/03/2020 07:53:22 MPV 11.2 FL FL 8.7-13.2 N 04/03/2020 07:53:22 GRAN % (AUTO) 44.0 % % 4 2.0-75.0 N 04/03/2020 07:53:22 LYMPH % (AUTO) 44.1 % % 20.0-51.0 N 04/03/2020 07:53:22 MONO % (AUTO) 8.2 % % 2. 0-15.0 N 04/03/2020 07:53:22 EOS % (AUTO) 2.6 % % 0.0 -11.0 N 04/03/2020 07:53:22 BASO % (AUTO) 0.9 % % 0. 0-2.0 N 04/03/2020 07:53:22 IG % (AUTO) 0.2 % % 1.00 -5.00 No Flag 04/03/2020 07:53:22 IG # (AUTO) 0.0 10^3/uL 10\^3/u <0.5 No Flag 04/03/2020 07:53:22 GRAN # (AUTO) 2.90 10^3/uL 10\^3/u 1.50-6.50 N 04/03/2020 07:53:22 LYMPH # (AUTO) 2.9 k/uL k/uL 1.0-5.0 N 04/03/2020 07:53:22 MONO # (AUTO) 0.54 k/uL k/uL 0.20-1.50 N 04/03/2020 07:53:22 EOS # (AUTO) 0.17 10^3/uL 10\^3/u 0.00-1.10 N 04/03/2020 07:53:22 BASO # (AUTO) 0.06 10^3/uL 10\^3/u 0.00-0.20 N 04/03/2020 07:53:22 GFR > 90.0 ML/MIN ML/MIN -- No Flag 03/26/2020 07:52:55 SODIUM 143 MEQ/L MEQ/L 1 35-145 N 03/26/2020 07:52:55 POTASSIUM 4.4 MEQ/L MEQ/L 3.5-5.3 N 03/26/2020 07:52:55 CHLORIDE 108 MEQ/L MEQ/L 94-110 N 03/26/2020 07:52:55 CARBON DIOXIDE 28 MEQ/L MEQ/L 22-33 N 03/26/2020 07:52:55 ANION GAP 11 5-16 N 03/26/2020 07:52:55 BLOOD UREA NITRO 6 MG/DL MG/DL 7-25 L 03/26/2020 07:52:55 CREATININE 0.6 MG/DL MG/DL 0.6-1.4 N 03/26/2020 07:52:55 BUN/CREAT RATIO 10 8-36 N 03/26/2020 07:52:55 GLUCOSE 72 MG/DL MG/DL 7 0-100 N 03/26/2020 07:52:55 CA 9.1 MG/DL MG/DL 8.7-1 0.5 N 03/26/2020 07:52:55 VITAMIN B12 304 PG/ML PG/ML 211-1999 N 01/12/2020 07:42:00 FOLATE > 24.00 NG/ML NG/ML 3.40-24.00 H 01/12/2020 07:42:00 GFR > 90.0 ML/MIN ML/MIN -- No Flag 12/07/2019 07:48:45 SODIUM 143 MEQ/L MEQ/L 1 35-145 N 12/07/2019 07:48:45 POTASSIUM 4.6 MEQ/L MEQ/L 3.5-5.3 N 12/07/2019 07:48:45 CHLORIDE 109 MEQ/L MEQ/L 94-110 N 12/07/2019 07:48:45 CARBON DIOXIDE 29 MEQ/L MEQ/L 22-33 N 12/07/2019 07:48:45 ANION GAP 10 5-16 N 12/07/2019 07:48:45 BLOOD UREA NITRO 15 MG/DL MG/DL 7-25 N 12/07/2019 07:48:45 CREATININE 0.6 MG/DL MG/DL 0.6-1.4 N 12/07/2019 07:48:45 BUN/CREAT RATIO 25 8-36 N 12/07/2019 07:48:45 GLUCOSE 87 MG/DL MG/DL 7 0-100 N 12/07/2019 07:48:45 CA 9.5 MG/DL MG/DL 8.7-1 0.5 N 12/07/2019 07:48:45 TSH 1.627 uIU/ML uIU/ML 0.470-4.200 N 12/07/2019 07:48:45 WHITE BLOOD COUNT 5.31 10^3/uL 10\^3/u 4.00- 10.50 N 12/07/2019 07:33:50 RED BLOOD COUNT 4.05 10^6/uL 10\^6/u 3.90- 5.20 N 12/07/2019 07:33:50 HEMOGLOBIN 11.9 G/DL G/DL 11.5-15.6 N 12/07/2019 07:33:50 HEMATOCRIT 35.6 % % 35.0 -46.0 N 12/07/2019 07:33:50 MCV 87.9 FL FL 80.0-100.0 N 12/07/2019 07:33:50 MCH 29.4 PG PG 27.0-34.0 N 12/07/2019 07:33:50 WHITE BLOOD COUNT 5.31 10^3/uL 10\^3/u 4.00- 10.50 N 12/07/2019 07:33:50 RED BLOOD COUNT 4.05 10^6/uL 10\^6/u 3.90- 5.20 N 12/07/2019 07:33:50 HEMOGLOBIN 11.9 G/DL G/DL 11.5-15.6 N 12/07/2019 07:33:50 HEMATOCRIT 35.6 % % 35.0 -46.0 N 12/07/2019 07:33:50 MCHC 33.4 G/DL G/DL 32-36 N 12/07/2019 07:33:50 RDW 14.2 % % 11.5-14.5 N 12/07/2019 07:33:50 PLATELET COUNT 207 10^3/uL 10\^3/u 130-400 N 12/07/2019 07:33:50 MPV 11.5 FL FL 8.7-13.2 N 12/07/2019 07:33:50 MCV 87.9 FL FL 80.0-100.0 N 12/07/2019 07:33:50 MCH 29.4 PG PG 27.0-34.0 N 12/07/2019 07:33:50 MCHC 33.4 G/DL G/DL 32-36 N 12/07/2019 07:33:50 RDW 14.2 % % 11.5-14.5 N 12/07/2019 07:33:50 PLATELET COUNT 207 10^3/uL 10\^3/u 130-400 N 12/07/2019 07:33:50 MPV 11.5 FL FL 8.7-13.2 N 12/07/2019 07:33:50 GFR > 90.0 ML/MIN ML/MIN -- No Flag 11/07/2019 09:00:32 SODIUM 145 MEQ/L MEQ/L 1 35-145 N 11/07/2019 09:00:32 POTASSIUM 4.5 MEQ/L MEQ/L 3.5-5.3 N 11/07/2019 09:00:32 CHLORIDE 108 MEQ/L MEQ/L 94-110 N 11/07/2019 09:00:32 CARBON DIOXIDE 29 MEQ/L MEQ/L 22-33 N 11/07/2019 09:00:32 ANION GAP 13 5-16 N 11/07/2019 09:00:32 BLOOD UREA NITRO 17 MG/DL MG/DL 7-25 N 11/07/2019 09:00:32 CREATININE 0.7 MG/DL MG/DL 0.6-1.4 N 11/07/2019 09:00:32 BUN/CREAT RATIO 24 8-36 N 11/07/2019 09:00:32 GLUCOSE 81 MG/DL MG/DL 7 0-100 N 11/07/2019 09:00:32 CA 9.9 MG/DL MG/DL 8.7-1 0.5 N 11/07/2019 09:00:32 GFR > 60.0 ML/MIN ML/MIN -- No Flag 10/17/2019 08:24:00 SODIUM 144 MEQ/L MEQ/L 1 35-145 N 10/17/2019 08:24:00 POTASSIUM 5.0 MEQ/L MEQ/L 3.5-5.3 N 10/17/2019 08:24:00 CHLORIDE 109 MEQ/L MEQ/L 94-110 N 10/17/2019 08:24:00 CARBON DIOXIDE 27 MEQ/L MEQ/L 22-33 N 10/17/2019 08:24:00 ANION GAP 13 5-16 N 10/17/2019 08:24:00 BLOOD UREA NITRO 14 MG/DL MG/DL 7-25 N 10/17/2019 08:24:00 CREATININE 0.8 MG/DL MG/DL 0.6-1.4 N 10/17/2019 08:24:00 BUN/CREAT RATIO 17 8-36 N 10/17/2019 08:24:00 GLUCOSE 75 MG/DL MG/DL 7 0-100 N 10/17/2019 08:24:00 CA 9.6 MG/DL MG/DL 8.7-1 0.5 N 10/17/2019 08:24:00 GFR > 60.0 ML/MIN ML/MIN -- No Flag 10/12/2019 07:47:22 SODIUM 148 MEQ/L MEQ/L 1 35-145 H 10/12/2019 07:47:22 POTASSIUM 3.4 MEQ/L MEQ/L 3.5-5.3 L 10/12/2019 07:47:22 CHLORIDE 108 MEQ/L MEQ/L 94-110 N 10/12/2019 07:47:22 CARBON DIOXIDE 31 MEQ/L MEQ/L 22-33 N 10/12/2019 07:47:22 ANION GAP 12 5-16 N 10/12/2019 07:47:22 BLOOD UREA NITRO 11 MG/DL MG/DL 7-25 N 10/12/2019 07:47:22 CREATININE 0.8 MG/DL MG/DL 0.6-1.4 N 10/12/2019 07:47:22 BUN/CREAT RATIO 13 8-36 N 10/12/2019 07:47:22 GLUCOSE 93 MG/DL MG/DL 7 0-100 N 10/12/2019 07:47:22 CA 9.4 MG/DL MG/DL 8.7-1 0.5 N 10/12/2019 07:47:22 MAGNESIUM 1.9 mg/dl mg/dl 1.8-2.4 N 10/12/2019 07:47:22 CHLORIDE 104 MEQ/L MEQ/L 94-110 N 10/10/2019 08:18:24 CARBON DIOXIDE 30 MEQ/L MEQ/L 22-33 N 10/10/2019 08:18:24 ANION GAP 15 5-16 N 10/10/2019 08:18:24 BLOOD UREA NITRO 12 MG/DL MG/DL 7-25 N 10/10/2019 08:18:24 CREATININE 0.7 MG/DL MG/DL 0.6-1.4 N 10/10/2019 08:18:24 BUN/CREAT RATIO 17 8-36 N 10/10/2019 08:18:24 GFR > 60.0 ML/MIN ML/MIN -- No Flag 10/10/2019 08:18:24 SODIUM 146 MEQ/L MEQ/L 1 35-145 H 10/10/2019 08:18:24 POTASSIUM 3.0 MEQ/L MEQ/L 3.5-5.3 L 10/10/2019 08:18:24 GLUCOSE 76 MG/DL MG/DL 7 0-100 N 10/10/2019 08:18:24 CA 9.4 MG/DL MG/DL 8.7-1 0.5 N 10/10/2019 08:18:24 GFR > 60.0 ML/MIN ML/MIN -- No Flag 10/07/2019 07:51:28 SODIUM 150 MEQ/L MEQ/L 1 35-145 H 10/07/2019 07:51:28 POTASSIUM 3.1 MEQ/L MEQ/L 3.5-5.3 L 10/07/2019 07:51:28 CHLORIDE 106 MEQ/L MEQ/L 94-110 N 10/07/2019 07:51:28 CARBON DIOXIDE 30 MEQ/L MEQ/L 22-33 N 10/07/2019 07:51:28 ANION GAP 17 5-16 H 10/07/2019 07:51:28 BLOOD UREA NITRO 16 MG/DL MG/DL 7-25 N 10/07/2019 07:51:28 CREATININE 0.9 MG/DL MG/DL 0.6-1.4 N 10/07/2019 07:51:28 BUN/CREAT RATIO 17 8-36 N 10/07/2019 07:51:28 GLUCOSE 78 MG/DL MG/DL 7 0-100 N 10/07/2019 07:51:28 CA 9.7 MG/DL MG/DL 8.7-1 0.5 N 10/07/2019 07:51:28 BILIRUBIN,TOTAL 0.3 MG/DL MG/DL 0.1-1.3 N 10/07/2019 07:51:28 AST 14 U/L U/L 5-40 N 10/07/2019 07:51:28 ALT 14 U/L U/L 5-48 N 10/07/2019 07:51:28 ALKALINE PHOSPHATASE 83 U/L U/L 40-140 N 10/07/2019 07:51:28 TOTAL PROTEIN 6.3 G/DL G/DL 5.9-8.3 N 10/07/2019 07:51:28 ALBUMIN 4.0 G/DL G/DL 3. 0-5.1 N 10/07/2019 07:51:28 GLOBULIN 2.3 G/DL G/DL 1 .5-3.5 N 10/07/2019 07:51:28 ALB/GLOB RATIO 1.7 G/DL G/DL 1.0-2.7 N 10/07/2019 07:51:28 WHITE BLOOD COUNT 10.12 10^3/uL 10\^3/u 4.00-10.50 N 10/07/2019 07:18:44 RED BLOOD COUNT 3.38 10^6/uL 10\^6/u 3.90- 5.20 L 10/07/2019 07:18:44 HEMOGLOBIN 9.8 G/DL G/DL 11.5-15.6 L 10/07/2019 07:18:44 HEMATOCRIT 31.0 % % 35.0 -46.0 L 10/07/2019 07:18:44 MCV 91.7 FL FL 80.0-100.0 N 10/07/2019 07:18:44 MCH 29.0 PG PG 27.0-34.0 N 10/07/2019 07:18:44 MCHC 31.6 G/DL G/DL 32-36 L 10/07/2019 07:18:44 RDW 14.4 % % 11.5-14.5 N 10/07/2019 07:18:44 PLATELET COUNT 429 10^3/uL 10\^3/u 130-400 H 10/07/2019 07:18:44 MPV 11.2 FL FL 8.7-13.2 N 10/07/2019 07:18:44 GRAN % (AUTO) 64.1 % % 4 2.0-75.0 N 10/07/2019 07:18:44 LYMPH % (AUTO) 24.1 % % 20.0-51.0 N 10/07/2019 07:18:44 MONO % (AUTO) 7.4 % % 2. 0-15.0 N 10/07/2019 07:18:44 EOS % (AUTO) 2.6 % % 0.0 -11.0 N 10/07/2019 07:18:44 BASO % (AUTO) 1.4 % % 0. 0-2.0 N 10/07/2019 07:18:44 IG % (AUTO) 0.4 % % 1.00 -5.00 No Flag 10/07/2019 07:18:44 IG # (AUTO) 0.0 10^3/uL 10\^3/u <0.5 No Flag 10/07/2019 07:18:44 GRAN # (AUTO) 6.49 10^3/uL 10\^3/u 1.50-6.50 N 10/07/2019 07:18:44 LYMPH # (AUTO) 2.4 k/uL k/uL 1.0-5.0 N 10/07/2019 07:18:44 MONO # (AUTO) 0.75 k/uL k/uL 0.20-1.50 N 10/07/2019 07:18:44 EOS # (AUTO) 0.26 10^3/uL 10\^3/u 0.00-1.10 N 10/07/2019 07:18:44 BASO # (AUTO) 0.14 10^3/uL 10\^3/u 0.00-0.20 N 10/07/2019 07:18:44 WHITE BLOOD COUNT 10.12 10^3/uL 10\^3/u 4.00-10.50 N 10/07/2019 07:18:44 RED BLOOD COUNT 3.38 10^6/uL 10\^6/u 3.90- 5.20 L 10/07/2019 07:18:44 HEMOGLOBIN 9.8 G/DL G/DL 11.5-15.6 L 10/07/2019 07:18:44 HEMATOCRIT 31.0 % % 35.0 -46.0 L 10/07/2019 07:18:44 MCV 91.7 FL FL 80.0-100.0 N 10/07/2019 07:18:44 MCH 29.0 PG PG 27.0-34.0 N 10/07/2019 07:18:44 MCHC 31.6 G/DL G/DL 32-36 L 10/07/2019 07:18:44 RDW 14.4 % % 11.5-14.5 N 10/07/2019 07:18:44 PLATELET COUNT 429 10^3/uL 10\^3/u 130-400 H 10/07/2019 07:18:44 MPV 11.2 FL FL 8.7-13.2 N 10/07/2019 07:18:44 GRAN % (AUTO) 64.1 % % 4 2.0-75.0 N 10/07/2019 07:18:44 LYMPH % (AUTO) 24.1 % % 20.0-51.0 N 10/07/2019 07:18:44 MONO % (AUTO) 7.4 % % 2. 0-15.0 N 10/07/2019 07:18:44 EOS % (AUTO) 2.6 % % 0.0 -11.0 N 10/07/2019 07:18:44 BASO % (AUTO) 1.4 % % 0. 0-2.0 N 10/07/2019 07:18:44 IG % (AUTO) 0.4 % % 1.00 -5.00 No Flag 10/07/2019 07:18:44 IG # (AUTO) 0.0 10^3/uL 10\^3/u <0.5 No Flag 10/07/2019 07:18:44 GRAN # (AUTO) 6.49 10^3/uL 10\^3/u 1.50-6.50 N 10/07/2019 07:18:44 LYMPH # (AUTO) 2.4 k/uL k/uL 1.0-5.0 N 10/07/2019 07:18:44 MONO # (AUTO) 0.75 k/uL k/uL 0.20-1.50 N 10/07/2019 07:18:44 EOS # (AUTO) 0.26 10^3/uL 10\^3/u 0.00-1.10 N 10/07/2019 07:18:44 BASO # (AUTO) 0.14 10^3/uL 10\^3/u 0.00-0.20 N 10/07/2019 07:18:44 SOCIAL HISTORY Social History Observation Description Dates Observed Smoking Status Current every day sid davies, [SNOMED-CT: [id number]], 7.50 packs per day 10/06/2019 TREATMENT PLAN Encounter Date Planned Care 10/08/2020 11:55:59 PROVIDED: Patient Education (10/08/2020) 10/08/2020 11:55:59 PROVIDED: Patient Education (10/08/2020) 10/08/2020 11:55:59 PROVIDED: Patient Education (10/08/2020) 09/27/2020 13:11:09 PROVIDED: Patient Education (09/27/2020) 09/27/2020 10:09:52 PROVIDED: Patient Education (09/27/2020) 09/12/2020 07:57:11 PROVIDED: Patient Education (09/12/2020) Physical examination, Chart review, Medication review, Discussion of current condition and plan of care with patient and completion of this note took 50 minutes. Signed by: Felecia Aguilar NP {Reviewed by Bunny Fernandez MD. Signed on 09/12/20 4:00 PM. } 09/03/2020 21:24:08 PROVIDED: Patient Education (09/03/2020) Medication list to be updated next visit. 09/03/2020 21:24:08 PROVIDED: Patient Education (09/03/2020) Medication list to be updated next visit. 09/03/2020 21:24:08 PROVIDED: Patient Education (09/03/20) Medication list to be updated next visit. 08/23/2020 08:02:15 PROVIDED: Patient Education (08/23/2020) Signed by: Felecia Aguilar NP {Reviewed by Bunny Fernandez MD. Signed on 08/23/20 7:12 PM. } 08/13/2020 15:14:00 PROVIDED: Patient Education (08/13/2020) 08/13/2020 07:13:07 rx havs 08/13/2020 07:13:07 rx havs PROVIDED: Patient Education (08/13/2020) 08/13/2020 07:13:07 rx havs PROVIDED: Patient Education (08/13/2020) 08/13/2020 07:13:07 rx havs PROVIDED: Patient Education (08/13/2020) 08/13/2020 07:13:07 rx havs PROVIDED: Patient Education (08/13/2020) 08/09/2020 11:45:03 PROVIDED: Patient Education (08/09/2020) 08/09/2020 10:52:07 PROVIDED: Patient Education (08/09/2020) 07/26/2020 15:58:23 PROVIDED: Patient Education (07/26/2020) 07/26/2020 15:04:58 PROVIDED: Patient Education (07/26/2020) 07/18/2020 07:39:11 PROVIDED: Patient Education (07/18/2020) Physical examination, Chart review, Medication review, Discussion of current condition and plan of care with patient and completion of this note took 50 minutes. Signed by: Felecia Aguilar NP {Reviewed by Bunny Fernandez MD. Signed on 07/18/20 1:28 PM. } 2020 11:41:50 PROVIDED: Patient Education (2020) 06/21/2020 15:35:51 PROVIDED: Patient Education (06/21/2020) Due to current COVID19 pandemic, resident was seen via telemedicine with their consent and with assistance of nursing staff. 06/21/2020 10:55:16 PROVIDED: Patient Education (06/21/2020) 06/18/2020 12:04:28 PROVIDED: Patient Education (06/18/2020) Physical examination, Chart review, Medication review, Discussion of current condition and plan of care with her and the RN and completion of this note took 31 minutes. 06/18/2020 12:04:28 PROVIDED: Patient Education (06/18/2020) 06/14/2020 22:45:35 PROVIDED: Patient Education (06/14/2020) Physical examination,Chart review, Medication review, Discussion of current condition and plan of care with her , the RN and the staff and completion of this note took 58 minutes. Advance Care Planning: Discussed current condition, prognosis and options of treatment with her , in the presence of the CLINICAL EDITOR. She fully understood our discussion and has decision making capacity. She expressed her preferences and wishes and has been documented accordingly. New MOLST Form completed and signed. (such decision making capacity assessment, advance directive discussion and documentation lasted for 17 minutes) 06/14/2020 22:45:35 PROVIDED: Patient Education (06/14/2020) d im Physical examination,Chart review, Medication review, Discussion of current condition and plan of care with her , the RN and the staff and completion of this note took 58 minutes. Advance Care Planning: Discussed current condition, prognosis and options of treatment with her , in the presence of the CLINICAL EDITOR. She fully understood our discussion and has decision making capacity. She expressed her preferences and wishes and has been documented accordingly. New MOLST Form completed and signed. (such decision making capacity assessment, advance directive discussion and documentation lasted for 17 minutes) 06/14/2020 22:45:35 PROVIDED: Patient Education (06/14/2020) d im Physical examination,Chart review, Medication review, Discussion of current condition and plan of care with her , the RN and the staff and completion of this note took 58 minutes. Advance Care Planning: Discussed current condition, prognosis and options of treatment with her , in the presence of the CLINICAL EDITOR. She fully understood our discussion and has decision making capacity. She expressed her preferences and wishes and has been documented accordingly. New MOLST Form completed and signed. (such decision making capacity assessment, advance directive discussion and documentation lasted for 17 minutes) 06/14/2020 09:17:24 PROVIDED: Patient Education (06/14/2020) 06/14/2020 09:17:24 PROVIDED: Patient Education (06/14/2020) 05/31/2020 22:15:00 PROVIDED: Patient Education (05/31/2020) 05/28/2020 16:07:10 PROVIDED: Patient Education (05/28/2020) (Medication list to be updated next visit) 05/24/2020 13:58:32 PROVIDED: Patient Education (05/24/2020) Signed by: Felecia Aguilar NP {Reviewed by Bunny Fernandez MD. Signed on 05/24/20 6:30 PM. } 05/24/2020 08:47:37 PROVIDED: Patient Education (05/24/2020) rx havs 05/24/2020 08:47:37 PROVIDED: Patient Education (05/24/2020) velez 05/24/2020 08:47:37 d 05/24/2020 08:47:37 PROVIDED: Patient Education (05/24/2020) rx havs 05/24/2020 08:47:37 PROVIDED: Patient Education (05/24/2020) velez 05/21/2020 11:28:00 PROVIDED: Patient Education (05/21/2020) Signed by: Felecia Aguilar NP {Reviewed by Bunny Fernandez MD. Signed on 05/21/20 3:39 PM. } 05/10/2020 12:20:39 PROVIDED: Patient Education (05/09/2020) Signed by: Felecia Aguilar NP {Reviewed by Bunny Fernandez MD. Signed on 05/10/20 1:45 PM. } 04/30/2020 08:05:15 PROVIDED: Patient Education (04/30/2020) Due to current COVID19 pandemic, resident was seen via telemedicine with their consent and with assistance of nursing staff. Physical examination, Chart review, Medication review, Discussion of current condition and plan of care with patient and completion of this note took 50 minutes. Signed by: Felecia Aguilar NP {Reviewed by Bunny Fernandez MD. Signed on 04/30/20 1:06 PM. } 04/18/2020 08:11:29 PROVIDED: Patient Education (04/18/2020) Signed by: Felecia Aguilar NP {Reviewed by Bunny Fernandez MD. Signed on 04/18/20 1:46 PM. } 04/04/2020 21:57:28 PROVIDED: Patient Education (04/04/2020) Physical examination, Medication review, Discussion of current condition and plan of care with her and the staff and completion of this note took 58 minutes. Advance Care Planning: Discussed current condition, prognosis and options of treatment with her , in the presence of the RN. She fully understood our discussion and has decision making capacity. She expressed and reiterated her prev known preferences and wishes and has been documented accordingly. MOLST Form reviewed and signed. (such decision making capacity assessment, advance directive discussion and documentation lasted for 16 minutes) 04/04/2020 08:26:50 PROVIDED: Patient Education (04/04/2020) 04/04/2020 08:26:50 PROVIDED: Patient Education (04/04/2020) rx havs Physical examination, Medication review, Discussion of current condition and plan of care with her and the staff and completion of this note took 58 minutes. Advance Care Planning: Discussed current condition, prognosis and options of treatment with her , in the presence of the RN. She fully understood our discussion and has decision making capacity. She expressed and reiterated her prev known preferences and wishes and has been documented accordingly. MOLST Form reviewed and signed. (such decision making capacity assessment, advance directive discussion and documentation lasted for 16 minutes) 04/04/2020 08:26:50 PROVIDED: Patient Education (04/04/2020) 03/21/2020 15:33:19 PROVIDED: Patient Education (03/21/2020) Due to current COVID19 pandemic, resident was seen via telemedicine with their consent and with assistance of nursing staff. Signed by: Felecia Aguilar NP {Reviewed by Bunny Fernandez MD. Signed on 03/21/20 4:27 PM. } 03/19/2020 13:37:38 PROVIDED: Patient Education (03/19/2020) Signed by: Felecia Aguilar NP {Reviewed by Bunny Fernandez MD. Signed on 03/19/20 4:24 PM. } 03/14/2020 10:32:08 PROVIDED: Patient Education (03/14/2020) Due to current Covid 19 pandemic, resident was seen via telemedicine with their consent and with assistance of nursing staff Signed by: Felecia Aguilar NP {Reviewed by Bunny Fernandez MD. Signed on 03/14/20 4:26 PM. } 03/07/2020 13:03:22 Due to current Covid 19 pandemic, resident was seen via telemedicine with their consent and with assistance of nursing staff PROVIDED: Patient Education (03/07/2020) Signed by: Felecia Aguilar NP {Reviewed by Bunny Fernandez MD. Signed on 03/07/20 1:46 PM. } 02/29/2020 15:10:12 PROVIDED: Patient Education (02/29/2020) Due to current Covid 19 pandemic, resident was seen via telemedicine with their consent and with assistance of nursing staff Signed by: Felecia Aguilar NP {Reviewed by Bunny Fernandez MD. Signed on 02/29/20 3:51 PM. } 02/27/2020 09:49:26 PROVIDED: Patient Education (02/27/2020) 02/27/2020 09:49:26 PROVIDED: Patient Education (02/27/2020) havs 02/27/2020 09:49:26 PROVIDED: Patient Education (02/27/2020) 02/27/2020 09:49:26 PROVIDED: Patient Education (02/27/2020) havs 02/27/2020 09:49:26 PROVIDED: Patient Education (02/27/2020) havs 02/27/2020 09:49:26 PROVIDED: Patient Education (02/27/2020) havs 02/08/2020 14:00:33 PROVIDED: Patient Education (02/08/2020) Signed by: Felecia Aguilar NP {Reviewed by Bunny Fernandez MD. Signed on 02/08/20 4:09 PM. } 01/30/2020 10:26:15 PROVIDED: Patient Education (01/30/2020) Signed by: Felecia Aguilar NP {Reviewed by Bunny Fernandez MD. Signed on 01/30/20 3:15 PM. } 01/23/2020 14:46:01 PROVIDED: Patient Education (01/23/2020) 01/23/2020 14:46:01 PROVIDED: Patient Education (01/23/2020) rx havs 01/23/2020 14:46:01 PROVIDED: Patient Education (01/23/2020) rx havs 01/18/2020 10:46:05 PROVIDED: Patient Education (01/18/2020) Signed by: Felecia Aguilar NP {Reviewed by Bunny Fernandez MD. Signed on 01/18/20 1:12 PM. } 01/16/2020 11:04:02 PROVIDED: Patient Education (01/16/2020) Signed by: Felecia Aguilar NP {Reviewed by Bunny Fernandez MD. Signed on 01/16/20 1:27 PM. } 01/12/2020 10:04:10 PROVIDED: Patient Education (01/12/2020) Signed by: Felecia Aguilar NP {Reviewed by Bunny Fernandez MD. Signed on 01/12/20 1:30 PM. } 01/02/2020 09:46:14 PROVIDED: Patient Education (01/02/2020) Physical examination, Chart review, Medication review, Discussion of current condition and plan of care with patient and completion of this note took 50 minutes. Signed by: Felecia Aguilar NP {Reviewed by Bunny Fernandez MD. Signed on 01/02/20 4:14 PM. } 12/26/2019 11:47:04 PROVIDED: Patient Education (12/26/2019) 12/26/2019 11:47:04 PROVIDED: Patient Education (12/26/2019) 12/26/2019 11:47:04 PROVIDED: Patient Education (12/26/2019) 12/26/2019 11:47:04 PROVIDED: Patient Education (12/26/2019) 12/15/2019 11:29:15 PROVIDED: Patient Education (12/15/2019) CLINICAL SUMMARY: Deferred (12/15/2019) Signed by: Felecia Aguilar NP {Reviewed by Bunny Fernandez MD. Signed on 12/15/19 11:36 PM. } 12/05/2019 10:06:18 PROVIDED: Patient Education (12/05/2019) CLINICAL SUMMARY: Deferred (12/05/2019) 12/05/2019 10:06:18 PROVIDED: Patient Education (12/05/2019) rx havs CLINICAL SUMMARY: Deferred (12/05/2019) 12/05/2019 10:06:18 PROVIDED: Patient Education (12/05/2019) rx havs CLINICAL SUMMARY: Deferred (12/05/2019) CLINICAL SUMMARY: Declined by Patient (12/05/2019) 11/07/2019 09:40:44 PROVIDED: Patient Education (11/07/2019) CLINICAL SUMMARY: Deferred (11/07/2019) Physical examination, Chart review, Medication review, Discussion of current condition and plan of care with patient and completion of this note took 50 minutes. Signed by: Felecia Aguilar NP {Reviewed by Bunny Fernandez MD. Signed on 11/07/19 1:57 PM. } 11/03/2019 10:51:44 PROVIDED: Patient Education (11/03/2019) CLINICAL SUMMARY: Deferred (11/03/2019) Signed by: Felecia Aguilar NP {Reviewed by Bunny Fernandez MD. Signed on 11/03/19 1:47 PM. } 10/12/2019 09:22:34 PROVIDED: Patient Education (10/12/2019) CLINICAL SUMMARY: Deferred (10/12/2019) Signed by: Felecia Aguilar NP {Reviewed by Bunny Fernandez MD. Signed on 10/12/19 2:13 PM. } 10/10/2019 15:04:34 PROVIDED: Patient Education (10/10/2019) CLINICAL SUMMARY: Deferred (10/10/2019) Signed by: Felecia Aguilar NP {Reviewed by Bunny Fernandez MD. Signed on 10/10/19 5:01 PM. } 10/06/2019 19:20:45 PROVIDED: Patient Education (10/06/2019) @ CLINICAL SUMMARY: Deferred (10/06/2019) Physical examination, Medication review, Discussion of current condition and plan of care with her and the staff and completion of this note took 71 minutes. Advance Care Planning: Discussed current condition, prognosis and options of treatment with her. She was not able to understand our discussion and lacks decision making capacity. Attempted to contact her daughter but not available. MOLST Form reviewed and signed. 10/06/2019 09:53:56 PROVIDED: Patient Education (10/06/2019) CLINICAL SUMMARY: Deferred (10/06/2019) 10/06/2019 09:53:56 PROVIDED: Patient Education (10/06/2019) CLINICAL SUMMARY: Deferred (10/06/2019) CLINICAL SUMMARY: Declined by Patient (10/06/2019) 10/06/2019 09:53:56 PROVIDED: Patient Education (10/06/2019) CLINICAL SUMMARY: Deferred (10/06/2019) 10/06/2019 09:53:56 PROVIDED: Patient Education (10/06/2019) @d CLINICAL SUMMARY: Deferred (10/06/2019) Physical examination, Medication review, Discussion of current condition and plan of care with her and the staff and completion of this note took 71 minutes. Advance Care Planning: Discussed current condition, prognosis and options of treatment with her. She was not able to understand our discussion and lacks decision making capacity. Attempted to contact her daughter but not available. MOLST Form reviewed and signed. VITAL SIGNS Encounter Height (in) We ight (lb) BMI (kg/m2) BP Sys (mmHg) BP [place] (mmHg) Heart Rate (/min) O2 % BldC Oximetry O2 % BldC Oximetry (on O2) Body Temp erature Respiratory Rate (/min) Head Circumf OFC by Tape measure 10/08/2020 11:55:59 67 1 82.2 28.5 -- -- 80 97 -- 98.7 F 16 -- 09/27/2020 13:11:09 67 1 82.2 28.5 100 67 58 99 -- 98.9 F 16 -- 09/12/2020 07:57:11 67 1 79.6 28.1 116 58 70 97 -- 97.8 F 16 -- 09/03/2020 21:24:08 67 1 79.6 28.1 -- -- 73 -- -- -- 1 7 -- 08/23/2020 08:02:15 67 1 79.6 28.1 124 74 70 91 -- 98.1 F -- 08/13/2020 15:14:00 67 1 67 26.2 102 58 76 98 -- 98.3 F -- 08/09/2020 11:45:03 67 1 67 26.2 114 73 78 99 -- 97.9 F -- 07/26/2020 15:58:23 67 1 67 26.2 110 60 60 97 -- 98.4 F -- 07/18/2020 07:39:11 67 1 66.3 26.0 90 59 60 98 -- 98.2 F -- 2020 11:41:50 67 -- -- 112 66 66 98 -- 97.8 F -- 06/21/2020 15:35:51 67 1 53.6 24.1 136 78 64 93 -- 97.8 F 18 -- 06/18/2020 12:04:28 67 1 53.6 24.1 116 66 72 99 -- 99.1 F -- 06/14/2020 22:45:35 67 1 68.4 26.4 118 76 60 98 -- 98.5 F -- 05/31/2020 22:15:00 67 -- -- -- -- 77 -- -- -- 1 6 -- 05/28/2020 16:07:10 67 1 53.6 24.1 -- -- 71 96 -- 98.5 F 18 -- 05/24/2020 13:58:32 67 1 53.6 24.1 137 64 72 96 -- 98.5 F -- 05/21/2020 11:28:00 67 1 53.6 24.1 137 64 72 96 -- 98.3 F -- 05/10/2020 12:20:39 67 1 50.6 23.6 137 64 72 96 -- 97.8 F 17 -- 04/30/2020 08:05:15 67 1 50.6 23.6 137 64 72 96 -- 97 F 17 -- 04/18/2020 08:11:29 67 1 50.6 23.6 137 64 72 96 -- 98.5 F 17 -- 04/04/2020 21:57:28 67 1 56.6 24.5 137 64 72 96 -- 98.5 F 17 -- 03/21/2020 15:33:19 67 1 55.6 24.4 128 64 62 97 -- 97.2 F 17 -- 03/19/2020 13:37:38 67 1 55.6 24.4 128 64 62 -- -- 97.1 F 17 -- 03/14/2020 10:32:08 67 1 49 23.3 120 62 62 -- -- 97.3 F 18 -- 03/07/2020 13:03:22 67 1 49 23.3 110 68 63 -- -- -- 2 0 -- 02/29/2020 15:10:12 67 1 49 23.3 126 80 90 -- -- -- 1 8 -- 02/27/2020 09:49:26 67 1 49 23.3 109 67 67 -- -- 98.0 F 17 -- 02/08/2020 14:00:33 67 1 53.8 24.1 111 60 68 -- -- -- 6 -- 01/30/2020 10:26:15 67 1 53.8 24.1 108 64 79 -- -- -- 1 8 -- 01/23/2020 14:46:01 67 1 53.8 24.1 110 68 79 -- -- -- 1 8 -- 01/18/2020 10:46:05 67 1 53.8 24.1 111 60 68 -- -- -- 1 6 -- 01/16/2020 11:04:02 67 1 46.7 23.0 111 60 67 -- -- -- 8 -- 01/12/2020 10:04:10 67 1 46.7 23.0 110 66 67 -- -- -- 1 8 -- 01/02/2020 09:46:14 67 1 46.7 23.0 110 66 -- -- -- 97.8 F 18 -- 12/26/2019 11:47:04 67 1 46.7 23.0 110 66 67 -- -- -- 1 8 -- 12/15/2019 11:29:15 67 1 46.4 22.9 116 68 78 -- -- 98.1 18 -- 12/05/2019 10:06:18 67 1 46.4 22.9 116 68 79 95 -- -- 18 -- 11/07/2019 09:40:44 2,637.8 142.4 0.0 126 70 74 -- -- 98.1 -- 11/03/2019 10:51:44 -- 1 43 -- 126 70 74 -- -- 98.1 -- 10/12/2019 09:22:34 -- 1 43 -- 126 70 74 -- -- 98.1 -- 10/10/2019 15:04:34 -- -- -- 130 78 88 -- -- -- 1 8 -- 10/06/2019 19:20:45 -- -- -- 150 78 88 -- -- -- 1 8 -- GOALS No Goals Information. HEALTH CONCERNS No health concerns information is available. MENTAL STATUS No Mental Status information.
--- OUTSIDE RECORDS SUMMARY | 2020-12-01 05:15 | CCD ---
Author Author [facility] Organization [facility] Address [address], [place] [address] Care Team Providers Care Game Moderator Name Role Phone Bunny Fernandez MD Unavailable Felecia Aguilar NP Unavailable Gita Tompkins MA Unavailable ENCOUNTERS Encounter Performer Loca tion Date Headache [ICD10: R51.] [facility] 09-27-2020 Chronic pain [SNOMED-CT: 22283347] Radha [facility] 09-27-2020 Insomnia [SNOMED-CT: 375776249] Dr[facility] B[facility] 09-27-2020 Bipolar disorder [SNOMED-CT: 76342274] Dr[facility] B[facility] 09-27-2020 Bipolar disorder [SNOMED-CT: 25879832] Dr[facility] 09-12-2020 Chronic obstructive pulmonary disease [SNOMED-CT: 1364 5005] Dr[facility] B[facility] 09-12-2020 Hypertension [SNOMED-CT: 82054124] Radha [facility] 09-12-2020 Anemia [SNOMED-CT: 623494472] Dr[facility] Patti [facility] 09-12-2020 Bipolar disorder [SNOMED-CT: 03196164] Dr[facility] B[facility] 09-03-2020 Rhinitis [SNOMED-CT: 06848153] Dr[facility] Aubrey [facility] 09-03-2020 Sjogren's disease [SNOMED-CT: 73992054] Dr[facility] B[facility] 09-03-2020 Fibromyalgia [SNOMED-CT: 702026214] Dr[facility] B[facility] 09-03-2020 Chronic kidney disease [SNOMED-CT: 145795201] Dr[facility] B[facility] 08-23-2020 Hypertension [SNOMED-CT: 18281526] Radha [facility] 08-23-2020 Depression [SNOMED-CT: 30587114] Dr[facility] B[facility] 08-23-2020 Bipolar disorder [SNOMED-CT: 74060608] Dr[facility] B[facility] 08-23-2020 Chronic obstructive pulmonary disease [SNOMED-CT: 1364 5005] Dr[facility] B[facility] 08-13-2020 Chronic kidney disease [SNOMED-CT: 260106078] Dr[facility] B[facility] 08-13-2020 Hypertension [SNOMED-CT: 27742647] Radha [facility] 08-13-2020 Anemia [SNOMED-CT: 785553451] Dr[facility] Patti [facility] 08-13-2020 Dyspepsia [SNOMED-CT: 245266216] Dr[facility] 08-09-2020 Bipolar disorder [SNOMED-CT: 27545554] Dr[facility] B[facility] 08-09-2020 Hypothyroidism [SNOMED-CT: 47318262] Dr[facility] B[facility] 08-09-2020 Fibromyalgia [SNOMED-CT: 931733062] Dr[facility] 08-09-2020 Lupus [SNOMED-CT: 780705648] Dr[facility] Dominik [facility] 07-26-2020 Chronic pain [SNOMED-CT: 16590426] Rad[facility] 07-26-2020 Migraine [SNOMED-CT: 16987860] Dr[facility] Aubrey [facility] 07-26-2020 Bipolar disorder [SNOMED-CT: 83144059] Dr[facility] B[facility] 07-26-2020 Bipolar disorder [SNOMED-CT: 61726722] Dr[facility] B[facility] 07-18-2020 Hypertension [SNOMED-CT: 45211100] Radha [facility] 07-18-2020 Chronic obstructive pulmonary disease [SNOMED-CT: 1364 5005] Dr[facility] 07-18-2020 Chronic kidney disease [SNOMED-CT: 591085405] Dr[facility] B[facility] 07-18-2020 Chronic pain [SNOMED-CT: 39499753] [facility] 2020 Bipolar disorder [SNOMED-CT: 10132411] Dr[facility] 2020 Hypothyroidism [SNOMED-CT: 97363288] Dr[facility] 2020 Hypertension [SNOMED-CT: 34916931] Rad[facility] 2020 Fibromyalgia [SNOMED-CT: 380559864] Dr[facility] 06-21-2020 Lupus [SNOMED-CT: 516583756] Dr[facility] Dominik [facility] 06-21-2020 Bipolar disorder [SNOMED-CT: 31377690] Dr[facility] B[facility] 06-21-2020 Frailty [SNOMED-CT: 119668372] Dr[facility] Aubrey [facility] 06-21-2020 Chronic pain [SNOMED-CT: 93800013] Radha [facility] 06-18-2020 Hypothyroidism [SNOMED-CT: 91108836] Dr[facility] B[facility] 06-18-2020 Klebsiella cystitis [SNOMED-CT: 48838597] Dr[facility] B[facility] 06-18-2020 Sjogren's disease [SNOMED-CT: 12806824] Dr[facility] B[facility] 06-18-2020 Suicidal behavior [SNOMED-CT: 365608317] Dr[facility] B[facility] 06-14-2020 Hypertension [SNOMED-CT: 79074010] Radha [facility] 06-14-2020 Chronic kidney disease [SNOMED-CT: 265274754] Dr[facility] B[facility] 06-14-2020 Chronic obstructive pulmonary disease [SNOMED-CT: 1364 5005] Dr[facility] 06-14-2020 Chronic pain [SNOMED-CT: 07493770] Radha [facility] 05-31-2020 Chronic obstructive pulmonary disease [SNOMED-CT: 1364 5005] Dr[facility] B[facility] 05-31-2020 Chronic kidney disease [SNOMED-CT: 966280538] Dr[facility] B[facility] 05-31-2020 Fibromyalgia [SNOMED-CT: 700851241] Dr[facility] B[facility] 05-31-2020 Chronic pain [SNOMED-CT: 56509953] Rad[facility] 05-28-2020 Bipolar disorder [SNOMED-CT: 61925601] Dr[facility] 05-28-2020 Hypertension [SNOMED-CT: 26359235] Radha [facility] 05-28-2020 Sjogren's disease [SNOMED-CT: 59365201] Dr[facility] B[facility] 05-28-2020 Sjogren's disease [SNOMED-CT: 53298661] Dr[facility] B[facility] 05-24-2020 Bipolar disorder [SNOMED-CT: 39192713] Dr[facility] B[facility] 05-24-2020 Sjogren's disease [SNOMED-CT: 21181928] Dr[facility] B[facility] 05-21-2020 Hypertension [SNOMED-CT: 58809388] Radha [facility] 05-21-2020 Migraine [SNOMED-CT: 88568105] Dr[facility] Aubrey [facility] 05-10-2020 Sjogren's disease [SNOMED-CT: 41041327] Dr[facility] 05-10-2020 Hypertension [SNOMED-CT: 79931533] Radha [facility] 05-10-2020 Sjogren's disease [SNOMED-CT: 62419623] Dr[facility] 04-30-2020 Hypertension [SNOMED-CT: 51310259] Rad[facility] 04-30-2020 Anemia [SNOMED-CT: 500297967] Dr[facility] Patti [facility] 04-30-2020 Sjogren's disease [SNOMED-CT: 27016672] Dr[facility] B[facility] 04-18-2020 Hypertension [SNOMED-CT: 13715160] Rad[facility] 04-18-2020 Obstructive uropathy [SNOMED-CT: 9761472] Dr[facility] B[facility] 04-18-2020 Chronic obstructive pulmonary disease [SNOMED-CT: 1364 5005] Dr[facility] B[facility] 04-18-2020 Klebsiella cystitis [SNOMED-CT: 84827810] Dr[facility] B[facility] 04-04-2020 Migraine [SNOMED-CT: 32442334] Dr[facility] Aubrey [facility] 04-04-2020 Sjogren's disease [SNOMED-CT: 72545852] Dr[facility] 04-04-2020 Hypertension [SNOMED-CT: 88174349] Rad[facility] 04-04-2020 Depression [SNOMED-CT: 10389458] Dr[facility] B[facility] 03-21-2020 Obstructive uropathy [SNOMED-CT: 5398469] Dr[facility] B[facility] 03-21-2020 Obstructive uropathy [SNOMED-CT: 7905832] Dr[facility] B[facility] 03-19-2020 Depression [SNOMED-CT: 10839374] Dr[facility] B[facility] 03-19-2020 Obstructive uropathy [SNOMED-CT: 7579710] Dr[facility] B[facility] 03-14-2020 Hypertension [SNOMED-CT: 20707794] Radha [facility] 03-14-2020 Hypertension [SNOMED-CT: 29529588] Radha [facility] 03-07-2020 Obstructive uropathy [SNOMED-CT: 0378793] Dr[facility] 03-07-2020 Chronic obstructive pulmonary disease [SNOMED-CT: 1364 5005] Dr[facility] B[facility] 02-29-2020 Hypertension [SNOMED-CT: 75466522] Radha [facility] 02-29-2020 Hypertension [SNOMED-CT: 96981130] Radha [facility] 02-27-2020 Chronic obstructive pulmonary disease [SNOMED-CT: 1364 5005] Dr[facility] 02-27-2020 Anemia [SNOMED-CT: 842864940] Dr[facility] Patti [facility] 02-27-2020 Sjogren's disease [SNOMED-CT: 38665241] Dr[facility] Bunny [facility] 02-27-2020 Obstructive uropathy [SNOMED-CT: 6821772] Dr[facility] B[facility] 02-08-2020 Hypertension [SNOMED-CT: 47532371] Radha [facility] 02-08-2020 Obstructive uropathy [SNOMED-CT: 4257882] Dr[facility] Bunny [facility] 01-30-2020 Hypertension [SNOMED-CT: 12801033] Radha [facility] 01-30-2020 Depression [SNOMED-CT: 54005824] Dr[facility] B[facility] 01-23-2020 Obstructive uropathy [SNOMED-CT: 7236351] Dr[facility] B[facility] 01-23-2020 Hypokalemia [SNOMED-CT: 77208041] Dr Pako [facility] 01-23-2020 Hypertension [SNOMED-CT: 87147733] Rad[facility] 01-23-2020 Lupus erythematosus [SNOMED-CT: 767424909] Dr[facility] B[facility] 01-18-2020 Depression [SNOMED-CT: 94526961] Dr[facility] B[facility] 01-18-2020 Lupus erythematosus [SNOMED-CT: 899551880] Dr[facility] Bunny [facility] 01-16-2020 Chronic obstructive pulmonary disease [SNOMED-CT: 1364 5005] Dr[facility] B[facility] 01-16-2020 Lupus erythematosus [SNOMED-CT: 618068863] Dr[facility] B[facility] 01-12-2020 Chronic obstructive pulmonary disease [SNOMED-CT: 1364 5005] Dr[facility] B[facility] 01-12-2020 Folic acid deficiency [SNOMED-CT: 732225455] Felecia Aguilar [facility] 01-12-2020 Hypertension [SNOMED-CT: 19172010] Radha [facility] 01-02-2020 Lupus erythematosus [SNOMED-CT: 485979061] Dr[facility] Bunny [facility] 01-02-2020 Chronic obstructive pulmonary disease [SNOMED-CT: 1364 5005] Dr[facility] B[facility] 01-02-2020 Depression [SNOMED-CT: 84866814] Dr[facility] B[facility] 12-26-2019 Migraine [SNOMED-CT: 27144738] Dr[facility] Aubrey [facility] 12-26-2019 Fibromyalgia [SNOMED-CT: 004665880] Dr[facility] Bunny [facility] 12-26-2019 Hypertension [SNOMED-CT: 58547927] Radha [facility] 12-26-2019 Lupus erythematosus [SNOMED-CT: 532346241] Dr[facility] Bunny [facility] 12-15-2019 Lupus erythematosus [SNOMED-CT: 194454674] Dr[facility] B[facility] 12-05-2019 Chronic obstructive pulmonary disease [SNOMED-CT: 1364 5005] Dr[facility] Bunny [facility] 12-05-2019 Hypertension [SNOMED-CT: 86636997] Radha [facility] 12-05-2019 Anemia [SNOMED-CT: 173075210] Dr[facility] Patti [facility] 12-05-2019 Hypertension [SNOMED-CT: 64998236] Radha [facility] 11-07-2019 Chronic obstructive pulmonary disease [SNOMED-CT: 1364 5005] Dr[facility] Bunny [facility] 11-07-2019 Sepsis [SNOMED-CT: 58020241] Dr[facility] Dominik [facility] 11-03-2019 Sepsis [SNOMED-CT: 36348845] Dr[facility] Dominik [facility] 10-12-2019 Sepsis [SNOMED-CT: 58221266] Dr[facility] Dominik [facility] 10-10-2019 Acute respiratory failure [SNOMED-CT: 44035268] Dr[facility] Bunny [facility] 10-06-2019 Encephalopathy [SNOMED-CT: 38970557] Dr[facility] Bunny [facility] 10-06-2019 Sepsis [SNOMED-CT: 03382027] Dr[facility] Dominik [facility] 10-06-2019 Acute kidney injury [SNOMED-CT: 23174163776678875] Dr[facility] Bunny [facility] 10-06-2019 ALLERGIES AND ADVERSE REACTIONS Substance Reaction Sever ity Status Latex (RxNorm: 3886736) -- -- Active Lunesta (RxNorm: Unknown) -- -- Active sulfa drug (RxNorm: 25309) -- -- Active omeprazole (RxNorm: 7646) -- -- Active metoclopramide (RxNorm: 6915) -- -- Active lisinopril (RxNorm: 65604) -- -- Active erythromycin (RxNorm: 4053) -- -- Active levofloxacin (RxNorm: 22375) -- -- Active cephalexin (RxNorm: 2231) -- -- Active buPROPion (RxNorm: 40031) -- -- Active azithromycin (RxNorm: 76539) -- -- Active FUNCTIONAL STATUS There is no cognitive and functional status saved for this patient. IMMUNIZATIONS No known immunization history MEDICAL EQUIPMENT Patient has no history of implanted devices. MEDICATIONS Medication Generic Name Instructions Dosage Start Date Status senna 8.6 mg oral tablet, [RxNorm: 703774] senna 2 tabs PO QD 0 0 Active methotrexate 2.5 mg oral tablet, [RxNorm: 167609] methotrexate 3 tabs PO QD on Thursday 0 07/30/2020 Active Plaquenil 200 mg oral tablet, [RxNorm: 962447] hydroxychloroquine 1 tab PO BID 0 07/27/2020 Active gabapentin 400 mg oral capsule, [RxNorm: 843533] gabapentin 1 cap PO TID 0 0 Active pilocarpine 5 mg oral tablet, [RxNorm: 9877565] pilocarpine 1 tab PO TID 0 0 Active SUMAtriptan 25 mg oral tablet, [RxNorm: 175280] SUMAtriptan 1 tab PO Q12H PRN 0 07/26/2020 Active levothyroxine 25 mcg (0.025 mg) oral tablet, [RxNorm: 861755] levothyroxine 1/2 tab PO QD 0 07/17/2020 Active ondansetron 4 mg/5 mL oral solution, [RxNorm: 663774] ondansetron Inject 2 mL IM Q6H PRN 0 06/28/2020 Active Nicotine Inhaler 10 mg Unknown Inhale 2 puffs PO Q2H PRN 0 06/26/2020 Active bisacodyl 10 mg rectal suppository, [RxNorm: 096300] bisacodyl Insert 1 RI QD PRN 0 06/19/2020 Active predniSONE 5 mg oral tablet, [RxNorm: 470482] predniSONE 1 tab PO QD 0 06/19/2020 Active baclofen 10 mg oral tablet, [RxNorm: 577181] baclofen 1 tab PO BID 0 0 Active doxepin 25 mg oral capsule, [RxNorm: 2143744] doxepin 1 tab PO BID 0 0 Active Florastor 250 mg oral capsule, [RxNorm: 809609] saccharomyces boulardii lyo 1 cap PO BID 0 06/13/2020 Active magnesium oxide 400 mg (240 mg elemental magnesium) oral tablet, [RxNorm: 259153] magnesium oxide 1 tab PO QPM 0 06/13/2020 Active pentoxifylline 400 mg oral tablet, exten ded release, [RxNorm: 028114] pentoxifylline 1 tab PO BID 0 06/13/2020 Active Spiriva HandiHaler 18 mcg inhalation cap raquel, [RxNorm: 393536] tiotropium Inhale 1 dose PO QAM 0 06/13/2020 Active calcitriol 0.25 mcg oral capsule, [RxNorm: 921545] calcitriol 1 tab PO QHS 0 0 Active cyanocobalamin 1000 mcg oral tablet, ext ended release, [RxNorm: 139501] cyanocobalamin 1 tab PO TID 0 06/12/2020 Active Lopressor 50 mg oral tablet, [RxNorm: 918372] metoprolol 1 tab PO Q12H 0 06/12/20 20 Active traZODone 100 mg oral tablet, [RxNorm: 732064] traZODone 1 tab PO QHS 0 0 Active folic acid 1 mg oral tablet, [RxNorm: 284996] folic acid 1 tab PO QD 0 04/03/2020 Active Multiple Vitamins oral tablet multivitamin 1 tab PO QAM 0 04/03/2020 Active thiamine 100 mg oral tablet, [RxNorm: 028319] thiamine 1 tab PO QAM 0 0 Active acetaminophen 325 mg oral tablet, [RxNorm: 198617] acetaminophen 2 tabs PO Q4H PRN 0 04/02/2020 Active albuterol 90 mcg/inh inhalation aerosol albuterol Inhale 2 puffs PO QID PRN 0 04/02/2020 Active busPIRone 10 mg oral tablet, [RxNorm: 722251] busPIRone 1 tab PO BID 0 0 Active Keppra 500 mg oral tablet, [RxNorm: 856534] levETIRAcetam 1 tab PO QAM and QHS 0 04/02/2020 Active sorbitol 70% oral liquid, [RxNorm: 349152] sorbitol 30 cc PO QD PRN 0 2019 Active INSURANCE PROVIDERS Payer Name Policy Type P olicy ID Covered [employer] ID Policy [employer] [place] [facility] - J13 Health Insurance [id number] HUNTERALEXANDREA Benita SAVAGE [employer] of [place] /[facility] [id number] DESIRAE Emiliano JAEGER ASSESSMENTS # Headache (R51.):# Chronic pain (R52): # Insomnia (G47.00):# Bipolar disorder (F31.9): Migraine Headache : Remains controlled on Keppra and PRN Sumatriptan. . Monitor for worsening signs and symptoms and adjust treatment accordingly. Continue surveillance. Chronic pain, Fibromyalgia, DJD : Remains fairly controlled on APAP and Baclofen. Advised and encouraged to increase activity and range of motion exercises as tolerated. Monitor for worsening pain and adjust treatment accordingly. On Calcium/Vit DInsomnia: Counseled and advised on sleep hygiene. On Trazodone (for bipolar d/o). Consider PRN Ambien if worsening.Bipolar disorder : Remains controlled on Duloxetine (did not do well after attempted GDR) , Trazodone, Doxepin and Buspirone. Consider simplifying regimen if later possible. Monitor for worsening signs and symptoms and adjust treatment plan accordingly. Continue supportive care and reassurance and adjust treatment accordingly. Followed by Psychiatry. Continue surveillance. Frailty: Advised and encouraged to increase oral intake and increased activity and exercise as tolerated. Continue current supportive care and symptomatic treatment. We will closely monitor and adjust care plan and treatment plan accordingly. Polypharmacy: Aim to decrease medications as much as possible and monitor for any adverse drug effects. PROBLEMS Problem Problem Status D ate Started Date Resolved Date Inactivated Lupus [SNOMED-CT: 021419030] Active 07-26-2020 NA NA Hypothyroidism [SNOMED-CT: 51392417] Activ e 06-18-2020 NA NA Klebsiella cystitis [SNOMED-CT: 41014824] Active 04-04-2020 NA NA Headache [ICD10: R51.] Active 09-27-2020 NA NA Insomnia [SNOMED-CT: 081027692] Active 09-27-2020 NA NA Lupus [SNOMED-CT: 835969166] Active 06-21-2020 NA NA Frailty [SNOMED-CT: 793007273] Active 06-21-2020 NA NA Obstructive uropathy [SNOMED-CT: 4767074] Active 01-23-2020 NA NA Hypokalemia [SNOMED-CT: 93707285] Active 01-23-2020 NA NA Chronic kidney disease [SNOMED-CT: 145449235] Active 05-31-2020 NA NA Sjogren's disease [SNOMED-CT: 99304075] Active 02-27-2020 NA NA Dyspepsia [SNOMED-CT: 221429625] Active 08-09-2020 NA NA Flatulent dyspepsia [SNOMED-CT: 591666071] Active 08-09-2020 NA NA Suicidal behavior [SNOMED-CT: 994148135] Active 06-14-2020 NA NA Acute respiratory failure [SNOMED-CT: 53547517] Active 10-06-2019 NA NA Encephalopathy [SNOMED-CT: 00067331] Activ e 10-06-2019 NA NA Rhinitis [SNOMED-CT: 97960295] Active 09-03-2020 NA NA Sepsis [SNOMED-CT: 80203561] Active 10-06-2019 NA NA Folic acid deficiency [SNOMED-CT: 090299979] Active 01-12-2020 NA NA Acute kidney injury [SNOMED-CT: 23989221687836455] Active 10-06-2019 NA NA Depression [SNOMED-CT: 01904197] Active 12-26-2019 NA NA Migraine [SNOMED-CT: 40782818] Active 12-26-2019 NA NA Fibromyalgia [SNOMED-CT: 506521140] Active 12-26-2019 NA NA Lupus erythematosus [SNOMED-CT: 919005678] Active 12-05-2019 NA NA Chronic obstructive pulmonary disease [SNOMED-CT: 1364 5005] Active 12-05-2019 NA NA Hypertension [SNOMED-CT: 34936388] Active 12-05-2019 NA NA Anemia [SNOMED-CT: 525187606] Active 12-05-2019 NA NA Chronic pain [SNOMED-CT: 04748171] Active 05-24-2020 NA NA Bipolar disorder [SNOMED-CT: 99462735] Active 05-24-2020 NA NA PROCEDURES Procedure Date CPT Code Procedure 09/27/2020 13:11:09 [id number] Subsequent nursing facility care, per day, for the evaluation and management of a patient, which requires at least 2 of these 3 perry components: A detailed interval history; A detailed examination; Medical decision making of moderate complexity. Counseling 09/12/2020 07:57:11 85918 Subsequent nursing facility care, per day, for the evaluation and management of a patient, which requires at least 2 of these 3 perry components: A detailed interval history; A detailed examination; Medical decision making of moderate complexity. Counseling 09/03/2020 21:24:08 19979 Subsequent nursing facility care, per day, for the evaluation and management of a patient, which requires at least 2 of these 3 perry components: An expanded problem focused interval history; An expanded problem focused examination; Medical decision making 08/23/2020 08:02:15 66512 Subsequent nursing facility care, per day, for the evaluation and management of a patient, which requires at least 2 of these 3 perry components: An expanded problem focused interval history; An expanded problem focused examination; Medical decision making 08/13/2020 15:14:00 99005 Subsequent nursing facility care, per day, for the evaluation and management of a patient, which requires at least 2 of these 3 perry components: A detailed interval history; A detailed examination; Medical decision making of moderate complexity. Counseling 08/09/2020 11:45:03 38080 Subsequent nursing facility care, per day, for the evaluation and management of a patient, which requires at least 2 of these 3 perry components: A detailed interval history; A detailed examination; Medical decision making of moderate complexity. Counseling 07/26/2020 15:58:23 85728 Subsequent nursing facility care, per day, for the evaluation and management of a patient, which requires at least 2 of these 3 perry components: A detailed interval history; A detailed examination; Medical decision making of moderate complexity. Counseling 07/18/2020 07:39:11 43859 Subsequent nursing facility care, per day, for the evaluation and management of a patient, which requires at least 2 of these 3 perry components: A detailed interval history; A detailed examination; Medical decision making of moderate complexity. Counseling 2020 11:41:50 10519 Subsequent nursing facility care, per day, for the evaluation and management of a patient, which requires at least 2 of these 3 perry components: A detailed interval history; A detailed examination; Medical decision making of moderate complexity. Counseling 06/21/2020 15:35:51 26499 Subsequent nursing facility care, per day, for the evaluation and management of a patient, which requires at least 2 of these 3 perry components: A detailed interval history; A detailed examination; Medical decision making of moderate complexity. Counseling 06/18/2020 12:04:28 [id number] Subsequent nursing facility care, per day, for the evaluation and management of a patient, which requires at least 2 of these 3 perry components: A detailed interval history; A detailed examination; Medical decision making of moderate complexity. Counseling 06/14/2020 22:45:35 [id number] Initial nursing facility care, per day, for the evaluation and management of a patient, which requires these 3 perry components: A comprehensive history; A comprehensive examination; and Medical decision making of high complexity. Counseling and/or coordina 06/14/2020 22:45:35 [id number] Advance care planning including the explanation and discussion of advance directives such as standard forms (with completion of such forms, when performed), by the physician or other qualified health acute care nurse; first 30 minutes, [id number] with the patient, family member(s), and/or surrogate 05/31/2020 22:15:00 [id number] Subsequent nursing facility care, per day, for the evaluation and management of a patient, which requires at least 2 of these 3 perry components: An expanded problem focused interval history; An expanded problem focused examination; Medical decision making 05/28/2020 16:07:10 [id number] Subsequent nursing facility care, per day, for the evaluation and management of a patient, which requires at least 2 of these 3 perry components: A detailed interval history; A detailed examination; Medical decision making of moderate complexity. Counseling 05/24/2020 13:58:32 [id number] Subsequent nursing facility care, per day, for the evaluation and management of a patient, which requires at least 2 of these 3 perry components: An expanded problem focused interval history; An expanded problem focused examination; Medical decision making 05/21/2020 11:28:00 [id number] Subsequent nursing facility care, per day, for the evaluation and management of a patient, which requires at least 2 of these 3 perry components: A detailed interval history; A detailed examination; Medical decision making of moderate complexity. Counseling 05/10/2020 12:20:39 [id number] Subsequent nursing facility care, per day, for the evaluation and management of a patient, which requires at least 2 of these 3 perry components: A detailed interval history; A detailed examination; Medical decision making of moderate complexity. Counseling 04/30/2020 08:05:15 [id number] Subsequent nursing facility care, per day, for the evaluation and management of a patient, which requires at least 2 of these 3 perry components: A detailed interval history; A detailed examination; Medical decision making of moderate complexity. Counseling 04/18/2020 08:11:29 [id number] Subsequent nursing facility care, per day, for the evaluation and management of a patient, which requires at least 2 of these 3 perry components: An expanded problem focused interval history; An expanded problem focused examination; Medical decision making 04/04/2020 21:57:28 [id number] Initial nursing facility care, per day, for the evaluation and management of a patient, which requires these 3 perry components: A comprehensive history; A comprehensive examination; and Medical decision making of high complexity. Counseling and/or coordina 04/04/2020 21:57:28 [id number] Advance care planning including the explanation and discussion of advance directives such as standard forms (with completion of such forms, when performed), by the physician or other qualified health acute care nurse; first 30 minutes, [id number] with the patient, family member(s), and/or surrogate 03/21/2020 15:33:19 [id number] Subsequent nursing facility care, per day, for the evaluation and management of a patient, which requires at least 2 of these 3 perry components: An expanded problem focused interval history; An expanded problem focused examination; Medical decision making 03/19/2020 13:37:38 [id number] Subsequent nursing facility care, per day, for the evaluation and management of a patient, which requires at least 2 of these 3 perry components: A detailed interval history; A detailed examination; Medical decision making of moderate complexity. Counseling 03/14/2020 10:32:08 [id number] Subsequent nursing facility care, per day, for the evaluation and management of a patient, which requires at least 2 of these 3 perry components: An expanded problem focused interval history; An expanded problem focused examination; Medical decision making 03/07/2020 13:03:22 [id number] Subsequent nursing facility care, per day, for the evaluation and management of a patient, which requires at least 2 of these 3 perry components: An expanded problem focused interval history; An expanded problem focused examination; Medical decision making 02/29/2020 15:10:12 [id number] Subsequent nursing facility care, per day, for the evaluation and management of a patient, which requires at least 2 of these 3 perry components: An expanded problem focused interval history; An expanded problem focused examination; Medical decision making 02/27/2020 09:49:26 [id number] Subsequent nursing facility care, per day, for the evaluation and management of a patient, which requires at least 2 of these 3 perry components: A detailed interval history; A detailed examination; Medical decision making of moderate complexity. Counseling 02/08/2020 14:00:33 [id number] Subsequent nursing facility care, per day, for the evaluation and management of a patient, which requires at least 2 of these 3 perry components: An expanded problem focused interval history; An expanded problem focused examination; Medical decision making 01/30/2020 10:26:15 [id number] Subsequent nursing facility care, per day, for the evaluation and management of a patient, which requires at least 2 of these 3 perry components: An expanded problem focused interval history; An expanded problem focused examination; Medical decision making 01/23/2020 14:46:01 [id number] Subsequent nursing facility care, per day, for the evaluation and management of a patient, which requires at least 2 of these 3 perry components: A detailed interval history; A detailed examination; Medical decision making of moderate complexity. Counseling 01/18/2020 10:46:05 [id number] Subsequent nursing facility care, per day, for the evaluation and management of a patient, which requires at least 2 of these 3 perry components: An expanded problem focused interval history; An expanded problem focused examination; Medical decision making 01/16/2020 11:04:02 [id number] Subsequent nursing facility care, per day, for the evaluation and management of a patient, which requires at least 2 of these 3 perry components: An expanded problem focused interval history; An expanded problem focused examination; Medical decision making 01/12/2020 10:04:10 [id number] Subsequent nursing facility care, per day, for the evaluation and management of a patient, which requires at least 2 of these 3 perry components: An expanded problem focused interval history; An expanded problem focused examination; Medical decision making 01/02/2020 09:46:14 [id number] Subsequent nursing facility care, per day, for the evaluation and management of a patient, which requires at least 2 of these 3 perry components: A detailed interval history; A detailed examination; Medical decision making of moderate complexity. Counseling 12/26/2019 11:47:04 [id number] Subsequent nursing facility care, per day, for the evaluation and management of a patient, which requires at least 2 of these 3 perry components: An expanded problem focused interval history; An expanded problem focused examination; Medical decision making 12/15/2019 11:29:15 [id number] Subsequent nursing facility care, per day, for the evaluation and management of a patient, which requires at least 2 of these 3 perry components: An expanded problem focused interval history; An expanded problem focused examination; Medical decision making 12/08/2019 18:08:20 [id number] Brief emotional/behavioral assessment (eg, depression inventory, attention- deficit/hyperactivity disorder [ADHD] scale), with scoring and documentation, per standardized instrument 12/08/2019 18:08:20 13379 Test Administration and Scoring 12/08/2019 18:08:20 [id number] Post Test Interpretation and Integration of Results 12/05/2019 10:06:18 [id number] Subsequent nursing facility care, per day, for the evaluation and management of a patient, which requires at least 2 of these 3 perry components: A detailed interval history; A detailed examination; Medical decision making of moderate complexity. Counseling 11/07/2019 09:40:44 [id number] Subsequent nursing facility care, per day, for the evaluation and management of a patient, which requires at least 2 of these 3 perry components: A detailed interval history; A detailed examination; Medical decision making of moderate complexity. Counseling 11/03/2019 10:51:44 [id number] Subsequent nursing facility care, per day, for the evaluation and management of a patient, which requires at least 2 of these 3 perry components: An expanded problem focused interval history; An expanded problem focused examination; Medical decision making 10/12/2019 09:22:34 [id number] Subsequent nursing facility care, per day, for the evaluation and management of a patient, which requires at least 2 of these 3 perry components: An expanded problem focused interval history; An expanded problem focused examination; Medical decision making 10/10/2019 15:04:34 [id number] Subsequent nursing facility care, per day, for the evaluation and management of a patient, which requires at least 2 of these 3 perry components: An expanded problem focused interval history; An expanded problem focused examination; Medical decision making 10/07/2019 16:28:38 [id number] Prolonged evaluation and management service before and/or after direct patient care; first hour 10/06/2019 19:20:45 [id number] Initial nursing facility care, per day, for [...] 03/26/2020 07:52:55 VITAMIN B12 304 PG/ML PG/ML -1999 N 01/12/2020 07:42:00 FOLATE > 24.00 NG/ML [...] Status Current every day sid davies, [SNOMED-CT: [id number]], 7.50 packs per day 10/06/2019 TREATMENT PLAN Encounter Date Planned Care 09/27/2020 13:11:09 PROVIDED: Patient Education (09/27/2020) 09/27/2020 [...] her , in the presence of the MOTOR VEHICLE TECHNICIAN. She fully understood our discussion and has [...] her , in the presence of the MOTOR VEHICLE TECHNICIAN. She fully understood our discussion and has [...] her , in the presence of the MOTOR VEHICLE TECHNICIAN. She fully understood our discussion and has [...] (/min) Head Circumf OFC by Tape measure 09/27/2020 13:11:09 67 1 82.2 28.5 100 67 58 99 -- 98.9 F -- 09/12/2020 07:57:11 67 1 79.6 28.1 116 58 70 97 -- 97.8 F -- 09/03/2020 21:24:08 67 1 79.6 28.1 -- -- 73 -- -- -- 1 08/23/2020 08:02:15 67 1 79.6 28.1 124 74 70 91 -- 98.1 F 08/13/2020 15:14:00 67 1 67 26.2 102 58 76 98 -- 98.3 F 08/09/2020 11:45:03 67 1 67 26.2 114 73 78 99 -- 97.9 F -- 07/26/2020 15:58:23 67 1 67 26.2 110 60 60 97 -- 98.4 F 07/18/2020 07:39:11 67 1 66.3 26.0 90 59 60 98 -- 98.2 F - 2020 11:41:50 67 -- -- 112 66 66 98 -- 97.8 F - 06/21/2020 15:35:51 67 1 53.6 24.1 136 78 64 93 -- 97.8 F -- 06/18/2020 12:04:28 67 1 53.6 24.1 116 66 72 99 -- 99.1 F - 06/14/2020 22:45:35 67 1 68.4 26.4 118 76 60 98 -- 98.5 F 18 -- 05/31/2020 22:15:00 67 -- -- -- [...] 137 64 72 96 -- 97.8 F -- 04/30/2020 08:05:15 67 1 50.6 23.6 137 64 72 96 -- 97 F -- 04/18/2020 08:11:29 67 1 50.6 23.6 137 64 72 96 -- 98.5 -- 04/04/2020 21:57:28 67 1 56.6 24.5 137 64 72 96 -- 98.5 -- 03/21/2020 15:33:19 67 1 55.6 24.4 128 64 62 97 -- 97.2 -- 03/19/2020 13:37:38 67 1 55.6 24.4 128 64 62 -- -- 97.1 -- 03/14/2020 10:32:08 67 1 49 23.3 120 62 62 -- -- 97.3 -- 03/07/2020 13:03:22 67 1 49 23.3 110 68 63 -- -- -- 2 0 -- 02/29/2020 15:10:12 67 1 49 23.3 126 80 90 -- -- -- 1 8 -- 02/27/2020 09:49:26 67 1 49 23.3 109 67 67 -- -- 98.0 F -- 02/08/2020 14:00:33 67 1 53.8 24.1 111 60 68 -- -- -- 1 6 -- 01/30/2020 10:26:15 67 1 53.8 24.1 108 64 79 -- -- -- 1 8 -- 01/23/2020 14:46:01 67 1 53.8 24.1 110 68 79 -- -- -- 1 8 -- 01/18/2020 10:46:05 67 1 53.8 24.1 111 60 68 -- -- -- 6 -- 01/16/2020 11:04:02 67 1 46.7 23.0 111 60 67 -- -- -- 1 8 -- 01/12/2020 10:04:10 67 1 46.7 23.0 110 66 67 -- -- -- 8 -- 01/02/2020 09:46:14 67 1 46.7 [...] 0.0 126 70 74 -- -- 98.1 18 -- 11/03/2019 10:51:44 -- 1 43 -- 126 70 74 -- -- 98.1 18 -- 10/12/2019 09:22:34 -- 1 43 -- [...]
--- OUTSIDE RECORDS SUMMARY | 2020-12-01 05:16 | CCD ---
Author Author [facility] Organization [facility] Address [address], [place] [address] Care Team Providers Care Lath Tier Name Role Phone Jim PEARSON, Bunny Unavailable Felecia Aguilar NP Unavailable Gita Tompkins MA Unavailable ENCOUNTERS Encounter Performer Loca tion Date Bipolar disorder [SNOMED-CT: 71469508] [facility] 09-12-2020 Chronic obstructive pulmonary disease [SNOMED-CT: 1364 5005] [facility] 09-12-2020 Hypertension [SNOMED-CT: 19241367] [facility] 09-12-2020 Anemia [SNOMED-CT: 212976574] Dr[facility] Patti [facility] 09-12-2020 Bipolar disorder [SNOMED-CT: 51385554] [facility] 09-03-2020 Rhinitis [SNOMED-CT: 17116471] Dr[facility] Aubrey [facility] 09-03-2020 Sjogren's disease [SNOMED-CT: 06032525] Dr[facility] 09-03-2020 Fibromyalgia [SNOMED-CT: 473221039] [facility] 09-03-2020 Chronic kidney disease [SNOMED-CT: 865704994] [facility] 08-23-2020 Hypertension [SNOMED-CT: 98693355] [facility] 08-23-2020 Depression [SNOMED-CT: 66006012] Dr[facility] 08-23-2020 Bipolar disorder [SNOMED-CT: 40558593] Dr[facility] 08-23-2020 Chronic obstructive pulmonary disease [SNOMED-CT: 1364 5005] [facility] 08-13-2020 Chronic kidney disease [SNOMED-CT: 480536244] [facility] 08-13-2020 Hypertension [SNOMED-CT: 53191074] [facility] 08-13-2020 Anemia [SNOMED-CT: 165465124] Dr[facility] Patti [facility] 08-13-2020 Dyspepsia [SNOMED-CT: 964988204] Dr[facility] 08-09-2020 Bipolar disorder [SNOMED-CT: 23119241] [facility] 08-09-2020 Hypothyroidism [SNOMED-CT: 14942162] [facility] 08-09-2020 Fibromyalgia [SNOMED-CT: 626768985] [facility] 08-09-2020 Lupus [SNOMED-CT: 995282897] Dr[facility] Dominik [facility] 07-26-2020 Chronic pain [SNOMED-CT: 23943691] [facility] 07-26-2020 Migraine [SNOMED-CT: 29696806] Dr[facility] Aubrey [facility] 07-26-2020 Bipolar disorder [SNOMED-CT: 44477646] [facility] 07-26-2020 Bipolar disorder [SNOMED-CT: 85905253] Dr[facility] 07-18-2020 Hypertension [SNOMED-CT: 37070892] [facility] 07-18-2020 Chronic obstructive pulmonary disease [SNOMED-CT: 1364 5005] [facility] 07-18-2020 Chronic kidney disease [SNOMED-CT: 169194811] [facility] B[facility] 07-18-2020 Chronic pain [SNOMED-CT: 49587860] [facility] 2020 Bipolar disorder [SNOMED-CT: 10929793] Dr[facility] 2020 Hypothyroidism [SNOMED-CT: 32251581] Dr[facility] 2020 Hypertension [SNOMED-CT: 42031601] [facility] 2020 Fibromyalgia [SNOMED-CT: 416377913] Dr[facility] 06-21-2020 Lupus [SNOMED-CT: 062917925] Dr[facility] Dominik [facility] 06-21-2020 Bipolar disorder [SNOMED-CT: 54907760] Dr[facility] 06-21-2020 Frailty [SNOMED-CT: 287673234] Dr[facility] Aubrey [facility] 06-21-2020 Chronic pain [SNOMED-CT: 57073184] [facility] 06-18-2020 Hypothyroidism [SNOMED-CT: 43602048] Dr[facility] B[facility] 06-18-2020 Klebsiella cystitis [SNOMED-CT: 58344138] Dr[facility] B[facility] 06-18-2020 Sjogren's disease [SNOMED-CT: 98021304] Dr[facility] B[facility] 06-18-2020 Suicidal behavior [SNOMED-CT: 173576635] Dr[facility] B[facility] 06-14-2020 Hypertension [SNOMED-CT: 22548247] [facility] 06-14-2020 Chronic kidney disease [SNOMED-CT: 538483991] [facility] B[facility] 06-14-2020 Chronic obstructive pulmonary disease [SNOMED-CT: 1364 5005] [facility] 06-14-2020 Chronic pain [SNOMED-CT: 26834027] [facility] 05-31-2020 Chronic obstructive pulmonary disease [SNOMED-CT: 1364 5005] [facility] 05-31-2020 Chronic kidney disease [SNOMED-CT: 402962282] Dr[facility] B[facility] 05-31-2020 Fibromyalgia [SNOMED-CT: 761229688] [facility] 05-31-2020 Chronic pain [SNOMED-CT: 85511130] [facility] 05-28-2020 Bipolar disorder [SNOMED-CT: 70828887] [facility] 05-28-2020 Hypertension [SNOMED-CT: 55233521] [facility] 05-28-2020 Sjogren's disease [SNOMED-CT: 50444850] Dr[facility] 05-28-2020 Sjogren's disease [SNOMED-CT: 63409892] Dr[facility] B[facility] 05-24-2020 Bipolar disorder [SNOMED-CT: 76779070] Dr[facility] B[facility] 05-24-2020 Sjogren's disease [SNOMED-CT: 09150102] Dr[facility] B[facility] 05-21-2020 Hypertension [SNOMED-CT: 80284546] [facility] 05-21-2020 Migraine [SNOMED-CT: 42434016] Dr[facility]rey [facility] 05-10-2020 Sjogren's disease [SNOMED-CT: 73268768] Dr[facility] 05-10-2020 Hypertension [SNOMED-CT: 03085975] [facility] 05-10-2020 Sjogren's disease [SNOMED-CT: 29283476] Dr[facility] 04-30-2020 Hypertension [SNOMED-CT: 25747892] [facility] 04-30-2020 Anemia [SNOMED-CT: 032233914] Dr[facility] Patti [facility] 04-30-2020 Sjogren's disease [SNOMED-CT: 86676071] Dr[facility] 04-18-2020 Hypertension [SNOMED-CT: 55001694] [facility] 04-18-2020 Obstructive uropathy [SNOMED-CT: 0201521] Dr[facility] 04-18-2020 Chronic obstructive pulmonary disease [SNOMED-CT: 1364 5005] [facility] B[facility] 04-18-2020 Klebsiella cystitis [SNOMED-CT: 21263450] Dr[facility] B[facility] 04-04-2020 Migraine [SNOMED-CT: 67436207] Dr[facility] Aubrey [facility] 04-04-2020 Sjogren's disease [SNOMED-CT: 13893621] Dr[facility] B[facility] 04-04-2020 Hypertension [SNOMED-CT: 14040009] [facility] 04-04-2020 Depression [SNOMED-CT: 15455887] [facility] 03-21-2020 Obstructive uropathy [SNOMED-CT: 6186137] Dr[facility] B[facility] 03-21-2020 Obstructive uropathy [SNOMED-CT: 5273545] Dr[facility] B[facility] 03-19-2020 Depression [SNOMED-CT: 62339320] [facility] B[facility] 03-19-2020 Obstructive uropathy [SNOMED-CT: 2673555] Dr[facility] B[facility] 03-14-2020 Hypertension [SNOMED-CT: 69082169] [facility] 03-14-2020 Hypertension [SNOMED-CT: 24521687] [facility] 03-07-2020 Obstructive uropathy [SNOMED-CT: 8340645] Dr[facility] B[facility] 03-07-2020 Chronic obstructive pulmonary disease [SNOMED-CT: 1364 5005] [facility] B[facility] 02-29-2020 Hypertension [SNOMED-CT: 92622278] [facility] 02-29-2020 Hypertension [SNOMED-CT: 27176800] [facility] 02-27-2020 Chronic obstructive pulmonary disease [SNOMED-CT: 1364 5005] [facility] 02-27-2020 Anemia [SNOMED-CT: 518176451] Dr[facility] Patti [facility] 02-27-2020 Sjogren's disease [SNOMED-CT: 95087632] Dr[facility] Bunny [facility] 02-27-2020 Obstructive uropathy [SNOMED-CT: 7267529] Dr[facility] B[facility] 02-08-2020 Hypertension [SNOMED-CT: 44986348] [facility] 02-08-2020 Obstructive uropathy [SNOMED-CT: 6329790] Dr[facility] B[facility] 01-30-2020 Hypertension [SNOMED-CT: 85596563] [facility] 01-30-2020 Depression [SNOMED-CT: 58546854] [facility] B[facility] 01-23-2020 Obstructive uropathy [SNOMED-CT: 7897391] Dr[facility] B[facility] 01-23-2020 Hypokalemia [SNOMED-CT: 21526176] Dr Pako [facility] 01-23-2020 Hypertension [SNOMED-CT: 55245206] [facility] 01-23-2020 Lupus erythematosus [SNOMED-CT: 321382635] Dr[facility] 01-18-2020 Depression [SNOMED-CT: 49084067] [facility] B[facility] 01-18-2020 Lupus erythematosus [SNOMED-CT: 317182697] Dr[facility] B[facility] 01-16-2020 Chronic obstructive pulmonary disease [SNOMED-CT: 1364 5005] [facility] B[facility] 01-16-2020 Lupus erythematosus [SNOMED-CT: 420006560] Dr[facility] B[facility] 01-12-2020 Chronic obstructive pulmonary disease [SNOMED-CT: 1364 5005] [facility] B[facility] 01-12-2020 Folic acid deficiency [SNOMED-CT: 623283003] Fe[facility]cia [facility] 01-12-2020 Hypertension [SNOMED-CT: 10269632] [facility] 01-02-2020 Lupus erythematosus [SNOMED-CT: 177345704] Dr[facility] Bunny [facility] 01-02-2020 Chronic obstructive pulmonary disease [SNOMED-CT: 1364 5005] [facility] B[facility] 01-02-2020 Depression [SNOMED-CT: 42024503] [facility] B[facility] 12-26-2019 Migraine [SNOMED-CT: 38289045] Dr[facility] Aubrey [facility] 12-26-2019 Fibromyalgia [SNOMED-CT: 557183343] [facility] B[facility] 12-26-2019 Hypertension [SNOMED-CT: 73587598] Rad[facility] 12-26-2019 Lupus erythematosus [SNOMED-CT: 815917489] Dr[facility] Bunny [facility] 12-15-2019 Lupus erythematosus [SNOMED-CT: 890305909] [facility] B[facility] 12-05-2019 Chronic obstructive pulmonary disease [SNOMED-CT: 1364 5005] [facility] B[facility] 12-05-2019 Hypertension [SNOMED-CT: 41148959] [facility] 12-05-2019 Anemia [SNOMED-CT: 028996561] Dr[facility] Patti [facility] 12-05-2019 Hypertension [SNOMED-CT: 25969806] [facility] 11-07-2019 Chronic obstructive pulmonary disease [SNOMED-CT: 1364 5005] [facility] B[facility] 11-07-2019 Sepsis [SNOMED-CT: 97694138] Dr[facility] Dominik [facility] 11-03-2019 Sepsis [SNOMED-CT: 44419660] Dr[facility] Dominik [facility] 10-12-2019 Sepsis [SNOMED-CT: 17426611] Dr[facility] Dominik [facility] 10-10-2019 Acute respiratory failure [SNOMED-CT: 09073408] [facility] Bunny [facility] 10-06-2019 Encephalopathy [SNOMED-CT: 54883728] Dr[facility] B[facility] 10-06-2019 Sepsis [SNOMED-CT: 04689544] Dr[facility] Dominki [facility] 10-06-2019 Acute kidney injury [SNOMED-CT: 03476232242609649] Dr[facility] B[facility] 10-06-2019 ALLERGIES AND ADVERSE REACTIONS Substance Reaction Sever ity Status Latex (RxNorm: 8051953) -- -- Active Lunesta (RxNorm: Unknown) -- -- Active sulfa drug (RxNorm: 41925) -- -- Active omeprazole (RxNorm: 7646) -- -- Active metoclopramide (RxNorm: 6915) -- -- Active lisinopril (RxNorm: 02067) -- -- Active erythromycin (RxNorm: 4053) -- -- Active levofloxacin (RxNorm: 41415) -- -- Active cephalexin (RxNorm: 2231) -- -- Active buPROPion (RxNorm: 08581) -- -- Active azithromycin (RxNorm: 32542) -- -- Active FUNCTIONAL STATUS There is no cognitive and functional status saved for this patient. IMMUNIZATIONS No known immunization history MEDICAL EQUIPMENT Patient has no history of implanted devices. MEDICATIONS Medication Generic Name Instructions Dosage Start Date Status senna 8.6 mg oral tablet, [RxNorm: 422316] senna 2 tabs PO QD 0 0 Active methotrexate 2.5 mg oral tablet, [RxNorm: 022377] methotrexate 3 tabs PO QD on Thursday 0 07/30/2020 Active Plaquenil 200 mg oral tablet, [RxNorm: 776111] hydroxychloroquine 1 tab PO BID 0 07/27/2020 Active gabapentin 400 mg oral capsule, [RxNorm: 835601] gabapentin 1 cap PO TID 0 0 Active pilocarpine 5 mg oral tablet, [RxNorm: 0051360] pilocarpine 1 tab PO TID 0 0 Active SUMAtriptan 25 mg oral tablet, [RxNorm: 390992] SUMAtriptan 1 tab PO Q12H PRN 0 07/26/2020 Active levothyroxine 25 mcg (0.025 mg) oral tablet, [RxNorm: 782969] levothyroxine 1/2 tab PO QD 0 07/17/2020 Active ondansetron 4 mg/5 mL oral solution, [RxNorm: 527534] ondansetron Inject 2 mL IM Q6H PRN 0 06/28/2020 Active Nicotine Inhaler 10 mg Unknown Inhale 2 puffs PO Q2H PRN 0 06/26/2020 Active bisacodyl 10 mg rectal suppository, [RxNorm: 709763] bisacodyl Insert [address] QD PRN 0 06/19/2020 Active predniSONE 5 mg oral tablet, [RxNorm: 488809] predniSONE 1 tab PO QD 0 06/19/2020 Active baclofen 10 mg oral tablet, [RxNorm: 708517] baclofen 1 tab PO BID 0 0 Active doxepin 25 mg oral capsule, [RxNorm: 6219160] doxepin 1 tab PO BID 0 0 Active Florastor 250 mg oral capsule, [RxNorm: 231617] saccharomyces boulardii lyo 1 cap PO BID 0 06/13/2020 Active magnesium oxide 400 mg (240 mg elemental magnesium) oral tablet, [RxNorm: 086363] magnesium oxide 1 tab PO QPM 0 06/13/2020 Active pentoxifylline 400 mg oral tablet, exten ded release, [RxNorm: 509811] pentoxifylline 1 tab PO BID 0 06/13/2020 Active Spiriva HandiHaler 18 mcg inhalation cap raquel, [RxNorm: 339011] tiotropium Inhale 1 dose PO QAM 0 06/13/2020 Active Zinc-220 oral capsule, [RxNorm: 001333] zinc sulfate 1 tab PO QPM 0 0 Active calcitriol 0.25 mcg oral capsule, [RxNorm: 770536] calcitriol 1 tab PO QHS 0 0 Active cyanocobalamin 1000 mcg oral tablet, ext ended release, [RxNorm: 021029] cyanocobalamin 1 tab PO TID 0 06/12/2020 Active Lopressor 50 mg oral tablet, [RxNorm: 949237] metoprolol 1 tab PO Q12H 0 06/12/20 20 Active traZODone 100 mg oral tablet, [RxNorm: 291692] traZODone 1 tab PO QHS 0 0 Active folic acid 1 mg oral tablet, [RxNorm: 102490] folic acid 1 tab PO QD 0 04/03/2020 Active Multiple Vitamins oral tablet multivitamin 1 tab PO QAM 0 04/03/2020 Active thiamine 100 mg oral tablet, [RxNorm: 857539] thiamine 1 tab PO QAM 0 0 Active acetaminophen 325 mg oral tablet, [RxNorm: 294434] acetaminophen 2 tabs PO Q4H PRN 0 04/02/2020 Active albuterol 90 mcg/inh inhalation aerosol albuterol Inhale 2 puffs PO QID PRN 0 04/02/2020 Active busPIRone 10 mg oral tablet, [RxNorm: 561956] busPIRone 1 tab PO BID 0 0 Active Keppra 500 mg oral tablet, [RxNorm: 858789] levETIRAcetam 1 tab PO QAM and QHS 0 04/02/2020 Active sorbitol 70% oral liquid, [RxNorm: 301804] sorbitol 30 cc PO QD PRN 0 2019 Active Symbicort 160 mcg-4.5 mcg/inh inhalation aerosol, [RxNorm: 6087245] budesonide-formoterol Inhale 2 puffs PO BID 0 04/02/2020 Active INSURANCE PROVIDERS Payer Name Policy Type P olicy ID Covered Republican ID Policy [employer] [place] ([facility]) - J13 Health Insurance [id number] NEERU NAVARRO [employer] [place] /[employer]. [id number] DESIRAE Cummings MIL ASSESSMENTS # Bipolar Disorder (F31.9):# Chronic obstructive pulmonary disease (J44.9): # Hypertension (I10): # Anemia (D64.9):Bipolar disorder : Remains controlled on Trazodone, Doxepin and Buspirone. Denies further suicidal ideation. Will restart Duloxetine at 30mg daily as resident is c/o increased depression. Was previously on 60mg daily. Monitor for worsening signs and symptoms and adjust treatment plan accordingly. Continue supportive care and reassurance and adjust treatment accordingly. Followed by Psychiatry. Continue surveillance. COPD: Remains controlled on inhaled regimen of Spiriva, Symbicort and PRN Albuterol. Continue pulmonary toilet. Monitor for exacerbation and adjust treatment accordinglyHypertension: Remains controlled on Metoprolol . Monitor blood pressure and adjust treatment accordingly. Anemia : Currently asymptomatic. Monitor hemogram and consider further workup if there is any any worsening signs or symptoms. Hypothyroidism: Remains clinically euthyroid on both Levothyroxine. Follow TFT's and adjust treatment accordingly. Sjogren's disease, SLE : Remains controlled on Plaquenil, Methotrexate and Gabapentin. Advised and encouraged to increase activity and range of motion exercises as tolerated. Monitor for worsening signs and symptoms and adjust treatment plan accordingly. Continue surveillanc e.Fibromyalgia, Chronic pain, DJD : Remains fairly controlled on APAP and Bacl ofen. Advised and encouraged to increase activity and range of motion exerc ises as tolerated. Monitor for worsening pain and adjust treatment accordin gly. On Calcium/Vit D.Migraine Headache : Remains controlled on Keppra. Monito r for worsening signs and symptoms and adjust treatment accordingly. Continue zuniga rveillance. Neurogenic Bladder (failed trial of ang catheter removal) : Kayla nues to require Ang catheterization. Continue catheter care. Monitor for wors ening signs and symptoms and adjust treatment plan accordingly. Continue survei llance. Hypomagnasemia: most likely iatrogenic. Currently asymptomatic. Continue s to be on Magnesium oxide supplement. Frailty: Advised and encouraged to incr ease oral intake and increased activity and exercise as tolerated. Continue c urrent supportive care and symptomatic treatment. We will closely monitor and ad just care plan and treatment plan accordingly. Polypharmacy: Aim to decrease medications as much as possible and monitor for any adverse drug effects.Vitami n B12 deficiency: Continues to be on Vitamin B12 supplement. GERD: Currently asymptomatic on proton pump inhibitor use. Consider weaning off proton pump in hibitor if at all possible to prevent long- term adverse effects.Constipation: Advised to increase fiber and fluid intake. Will continue to monitor and adj ust laxative dose accordingly. PROBLEMS Problem Problem Status D ate Started Date Resolved Date Inactivated Lupus [SNOMED-CT: 659567331] Active 07-26-2020 NA NA Hypothyroidism [SNOMED-CT: 60289944] Activ e 06-18-2020 NA NA Klebsiella cystitis [SNOMED-CT: 38444717] Active 04-04-2020 NA NA Lupus [SNOMED-CT: 201135028] Active 06-21-2020 NA NA Frailty [SNOMED-CT: 965984721] Active 06-21-2020 NA NA Obstructive uropathy [SNOMED-CT: 7412456] Active 01-23-2020 NA NA Hypokalemia [SNOMED-CT: 72133379] Active 01-23-2020 NA NA Chronic kidney disease [SNOMED-CT: 730765383] Active 05-31-2020 NA NA Sjogren's disease [SNOMED-CT: 65265162] Active 02-27-2020 NA NA Dyspepsia [SNOMED-CT: 034059398] Active 08-09-2020 NA NA Flatulent dyspepsia [SNOMED-CT: 860675013] Active 08-09-2020 NA NA Suicidal behavior [SNOMED-CT: 642688063] Active 06-14-2020 NA NA Acute respiratory failure [SNOMED-CT: 84787835] Active 10-06-2019 NA NA Encephalopathy [SNOMED-CT: 20068881] Activ e 10-06-2019 NA NA Rhinitis [SNOMED-CT: 06317221] Active 09-03-2020 NA NA Sepsis [SNOMED-CT: 61810409] Active 10-06-2019 NA NA Folic acid deficiency [SNOMED-CT: 823759940] Active 01-12-2020 NA NA Acute kidney injury [SNOMED-CT: 67799485380667854] Active 10-06-2019 NA NA Depression [SNOMED-CT: 82323371] Active 12-26-2019 NA NA Migraine [SNOMED-CT: 91424041] Active 12-26-2019 NA NA Fibromyalgia [SNOMED-CT: 838107989] Active 12-26-2019 NA NA Lupus erythematosus [SNOMED-CT: 462132445] Active 12-05-2019 NA NA Chronic obstructive pulmonary disease [SNOMED-CT: 1364 5005] Active 12-05-2019 NA NA Hypertension [SNOMED-CT: 63210313] Active 12-05-2019 NA NA Anemia [SNOMED-CT: 378033359] Active 12-05-2019 NA NA Chronic pain [SNOMED-CT: 63924351] Active 05-24-2020 NA NA Bipolar disorder [SNOMED-CT: 88623752] Active 05-24-2020 NA NA PROCEDURES Procedure Date CPT Code Procedure 09/12/2020 07:57:11 [id number] Subsequent nursing facility care, per day, for the evaluation and management of a patient, which requires at least 2 of these 3 perry components: A detailed interval history; A detailed examination; Medical decision making of moderate complexity. Counseling 09/03/2020 21:24:08 [id number] Subsequent nursing facility care, per day, for the evaluation and management of a patient, which requires at least 2 of these 3 perry components: An expanded problem focused interval history; An expanded problem focused examination; Medical decision making 08/23/2020 08:02:15 [id number] Subsequent nursing facility care, per day, for the evaluation and management of a patient, which requires at least 2 of these 3 perry components: An expanded problem focused interval history; An expanded problem focused examination; Medical decision making 08/13/2020 15:14:00 [id number] Subsequent nursing facility care, per day, for the evaluation and management of a patient, which requires at least 2 of these 3 perry components: A detailed interval history; A detailed examination; Medical decision making of moderate complexity. Counseling 08/09/2020 11:45:03 [id number] Subsequent nursing facility care, per day, for the evaluation and management of a patient, which requires at least 2 of these 3 perry components: A detailed interval history; A detailed examination; Medical decision making of moderate complexity. Counseling 07/26/2020 15:58:23 [id number] Subsequent nursing facility care, per day, for the evaluation and management of a patient, which requires at least 2 of these 3 perry components: A detailed interval history; A detailed examination; Medical decision making of moderate complexity. Counseling 07/18/2020 07:39:11 [id number] Subsequent nursing facility care, per day, for the evaluation and management of a patient, which requires at least 2 of these 3 perry components: A detailed interval history; A detailed examination; Medical decision making of moderate complexity. Counseling 2020 11:41:50 [id number] Subsequent nursing facility care, per day, for the evaluation and management of a patient, which requires at least 2 of these 3 perry components: A detailed interval history; A detailed examination; Medical decision making of moderate complexity. Counseling 06/21/2020 15:35:51 [id number] Subsequent nursing facility care, per day, for the evaluation and management of a patient, which requires at least 2 of these 3 perry components: A detailed interval history; A detailed examination; Medical decision making of moderate complexity. Counseling 06/18/2020 12:04:28 [id number] Subsequent nursing facility care, per day, for the evaluation and management of a patient, which requires at least 2 of these 3 perry components: A detailed interval history; A detailed examination; Medical decision making of moderate complexity. Counseling 06/14/2020 22:45:35 [id number] Initial nursing facility care, per day, for the evaluation and management of a patient, which requires these 3 perry components: A comprehensive history; A comprehensive examination; and Medical decision making of high complexity. Counseling and/or coordina 06/14/2020 22:45:35 [id number] Advance care planning including the explanation and discussion of advance directives such as standard forms (with completion of such forms, when performed), by the physician or other qualified health manager intensive care; first 30 minutes, [id number] with the patient, family member(s), and/or surrogate 05/31/2020 22:15:00 [id number] Subsequent nursing facility care, per day, for the evaluation and management of a patient, which requires at least 2 of these 3 perry components: An expanded problem focused interval history; An expanded problem focused examination; Medical decision making 05/28/2020 16:07:10 [id number] Subsequent nursing facility care, per day, for the evaluation and management of a patient, which requires at least 2 of these 3 perry components: A detailed interval history; A detailed examination; Medical decision making of moderate complexity. Counseling 05/24/2020 13:58:32 [id number] Subsequent nursing facility care, per day, for the evaluation and management of a patient, which requires at least 2 of these 3 perry components: An expanded problem focused interval history; An expanded problem focused examination; Medical decision making 05/21/2020 11:28:00 [id number] Subsequent nursing facility care, per day, for the evaluation and management of a patient, which requires at least 2 of these 3 perry components: A detailed interval history; A detailed examination; Medical decision making of moderate complexity. Counseling 05/10/2020 12:20:39 [id number] Subsequent nursing facility care, per day, for the evaluation and management of a patient, which requires at least 2 of these 3 perry components: A detailed interval history; A detailed examination; Medical decision making of moderate complexity. Counseling 04/30/2020 08:05:15 [id number] Subsequent nursing facility care, per day, for the evaluation and management of a patient, which requires at least 2 of these 3 perry components: A detailed interval history; A detailed examination; Medical decision making of moderate complexity. Counseling 04/18/2020 08:11:29 [id number] Subsequent nursing facility care, per day, for the evaluation and management of a patient, which requires at least 2 of these 3 perry components: An expanded problem focused interval history; An expanded problem focused examination; Medical decision making 04/04/2020 21:57:28 [id number] Initial nursing facility care, per day, for the evaluation and management of a patient, which requires these 3 perry components: A comprehensive history; A comprehensive examination; and Medical decision making of high complexity. Counseling and/or coordina 04/04/2020 21:57:28 [id number] Advance care planning including the explanation and discussion of advance directives such as standard forms (with completion of such forms, when performed), by the physician or other qualified health manager intensive care; first 30 minutes, [id number] with the patient, family member(s), and/or surrogate 03/21/2020 15:33:19 [id number] Subsequent nursing facility care, per day, for the evaluation and management of a patient, which requires at least 2 of these 3 perry components: An expanded problem focused interval history; An expanded problem focused examination; Medical decision making 03/19/2020 13:37:38 [id number] Subsequent nursing facility care, per day, for the evaluation and management of a patient, which requires at least 2 of these 3 perry components: A detailed interval history; A detailed examination; Medical decision making of moderate complexity. Counseling 03/14/2020 10:32:08 [id number] Subsequent nursing facility care, per day, for the evaluation and management of a patient, which requires at least 2 of these 3 perry components: An expanded problem focused interval history; An expanded problem focused examination; Medical decision making 03/07/2020 13:03:22 [id number] Subsequent nursing facility care, per day, for the evaluation and management of a patient, which requires at least 2 of these 3 perry components: An expanded problem focused interval history; An expanded problem focused examination; Medical decision making 02/29/2020 15:10:12 [id number] Subsequent nursing facility care, per day, for the evaluation and management of a patient, which requires at least 2 of these 3 perry components: An expanded problem focused interval history; An expanded problem focused examination; Medical decision making 02/27/2020 09:49:26 [id number] Subsequent nursing facility care, per day, for the evaluation and management of a patient, which requires at least 2 of these 3 perry components: A detailed interval history; A detailed examination; Medical decision making of moderate complexity. Counseling 02/08/2020 14:00:33 [id number] Subsequent nursing facility care, per day, for the evaluation and management of a patient, which requires at least 2 of these 3 perry components: An expanded problem focused interval history; An expanded problem focused examination; Medical decision making 01/30/2020 10:26:15 [id number] Subsequent nursing facility care, per day, for the evaluation and management of a patient, which requires at least 2 of these 3 perry components: An expanded problem focused interval history; An expanded problem focused examination; Medical decision making 01/23/2020 14:46:01 [id number] Subsequent nursing facility care, per day, for the evaluation and management of a patient, which requires at least 2 of these 3 perry components: A detailed interval history; A detailed examination; Medical decision making of moderate complexity. Counseling 01/18/2020 10:46:05 [id number] Subsequent nursing facility care, per day, for the evaluation and management of a patient, which requires at least 2 of these 3 perry components: An expanded problem focused interval history; An expanded problem focused examination; Medical decision making 01/16/2020 11:04:02 [id number] Subsequent nursing facility care, per day, for the evaluation and management of a patient, which requires at least 2 of these 3 perry components: An expanded problem focused interval history; An expanded problem focused examination; Medical decision making 01/12/2020 10:04:10 [id number] Subsequent nursing facility care, per day, for the evaluation and management of a patient, which requires at least 2 of these 3 perry components: An expanded problem focused interval history; An expanded problem focused examination; Medical decision making 01/02/2020 09:46:14 [id number] Subsequent nursing facility care, per day, for the evaluation and management of a patient, which requires at least 2 of these 3 perry components: A detailed interval history; A detailed examination; Medical decision making of moderate complexity. Counseling 12/26/2019 11:47:04 [id number] Subsequent nursing facility care, per day, for the evaluation and management of a patient, which requires at least 2 of these 3 perry components: An expanded problem focused interval history; An expanded problem focused examination; Medical decision making 12/15/2019 11:29:15 [id number] Subsequent nursing facility care, per day, for the evaluation and management of a patient, which requires at least 2 of these 3 perry components: An expanded problem focused interval history; An expanded problem focused examination; Medical decision making 12/08/2019 18:08:20 [id number] Brief emotional/behavioral assessment (eg, depression inventory, attention- deficit/hyperactivity disorder [ADHD] scale), with scoring and documentation, per standardized instrument 12/08/2019 18:08:20 [id number] Test Administration and Scoring 12/08/2019 18:08:20 [id number] Post Test Interpretation and Integration of Results 12/05/2019 10:06:18 [id number] Subsequent nursing facility care, per day, for the evaluation and management of a patient, which requires at least 2 of these 3 perry components: A detailed interval history; A detailed examination; Medical decision making of moderate complexity. Counseling 11/07/2019 09:40:44 [id number] Subsequent nursing facility care, per day, for the evaluation and management of a patient, which requires at least 2 of these 3 perry components: A detailed interval history; A detailed examination; Medical decision making of moderate complexity. Counseling 11/03/2019 10:51:44 [id number] Subsequent nursing facility care, per day, for the evaluation and management of a patient, which requires at least 2 of these 3 perry components: An expanded problem focused interval history; An expanded problem focused examination; Medical decision making 10/12/2019 09:22:34 [id number] Subsequent nursing facility care, per day, for the evaluation and management of a patient, which requires at least 2 of these 3 perry components: An expanded problem focused interval history; An expanded problem focused examination; Medical decision making 10/10/2019 15:04:34 [id number] Subsequent nursing facility care, per day, for the evaluation and management of a patient, which requires at least 2 of these 3 perry components: An expanded problem focused interval history; An expanded problem focused examination; Medical decision making 10/07/2019 16:28:38 [id number] Prolonged evaluation and management service before and/or after direct patient care; first hour 10/06/2019 19:20:45 [id number] Initial nursing facility care, per day, for the evaluation and management of a patient, which requires these 3 perry components: A comprehensive history; A comprehensive examination; and Medical decision making of high complexity. Counseling and/or coordina REASON FOR REFERRAL No Reason for Referral information available. RESULTS Result Type Result Value Relevant Reference Range Interpretation Date FREE T4 (FREE THYROXINE) 1.21 NG/DL NG/DL [...] 07:47:22 BLOOD UREA NITRO 11 MG/DL MG/DL 7- N 10/12/2019 07:47:22 CREATININE 0.8 MG/DL MG/DL [...] Status Current every day sid davies, [SNOMED-CT: [id number]], 7.50 packs per day 10/06/2019 TREATMENT PLAN Encounter Date Planned Care 09/12/2020 07:57:11 PROVIDED: Patient Education (09/12/2020) Physical examination, Chart review, Medication review, Discussion of current condition and plan of care with patient and completion of this note took 50 minutes. Signed by: Felecia Aguilar NP 09/12/2020 07:57:11 PROVIDED: Patient Education (09/12/2020) 09/03/2020 21:24:08 PROVIDED: Patient Education (09/03/2020) Medication list to be updated next visit. 09/03/2020 21:24:08 PROVIDED: Patient Education (09/03/2020) Medication list to be updated next visit. 09/03/2020 21:24:08 PROVIDED: Patient Education (09/03/20) Medication list to be updated next visit. 08/23/2020 08:02:15 PROVIDED: Patient Education (08/23/2020) Signed by: Felecia Aguilar NP {Reviewed by Bunny Fernandez MD. Signed on 08/23/20 7:12 PM. } 08/23/2020 08:02:15 PROVIDED: Patient Education (08/23/2020) 08/13/2020 15:14:00 PROVIDED: Patient Education (08/13/2020) 08/13/2020 [...] her , in the presence of the MATERIAL PLANNING ANALYST. She fully understood our discussion and has [...] her , in the presence of the MATERIAL PLANNING ANALYST. She fully understood our discussion and has [...] her , in the presence of the MATERIAL PLANNING ANALYST. She fully understood our discussion and has [...] (/min) Head Circumf OFC by Tape measure 09/12/2020 07:57:11 67 1 79.6 28.1 116 58 70 97 -- 97.8 F 16 -- 09/03/2020 21:24:08 67 1 79.6 28.1 -- -- 73 -- -- -- 1 7 -08/23/2020 08:02:15 67 1 79.6 28.1 124 74 [...] 90 59 60 98 -- 98.2 F 20 -- 2020 11:41:50 67 -- -- 112 66 66 98 -- 97.8 F -- 06/21/2020 15:35:51 67 1 53.6 24.1 136 78 64 93 -- 97.8 F -- 06/18/2020 12:04:28 67 1 53.6 24.1 116 66 72 99 -- 99.1 F 16 -- 06/14/2020 22:45:35 67 1 68.4 26.4 118 76 60 98 -- 98.5 F 18 -- 05/31/2020 22:15:00 67 -- -- -- -- 77 -- -- -- 1 6 -- 05/28/2020 16:07:10 67 1 53.6 24.1 -- -- 71 96 -- 98.5 F -- 05/24/2020 13:58:32 67 1 53.6 24.1 [...] 64 72 96 -- 98.5 F -- 04/04/2020 21:57:28 67 1 56.6 24.5 137 64 72 96 -- 98.5 F -- 03/21/2020 15:33:19 67 1 55.6 24.4 128 64 62 97 -- 97.2 -- 03/19/2020 13:37:38 67 1 55.6 24.4 128 64 62 -- -- 97.1 -- 03/14/2020 10:32:08 67 1 49 23.3 120 62 62 -- -- 97.3 F -- 03/07/2020 13:03:22 67 1 49 23.3 [...] 23.0 110 66 -- -- -- 97.8 18 -- 12/26/2019 11:47:04 67 1 46.7 [...]
--- OUTSIDE RECORDS SUMMARY | 2020-12-01 05:17 | CCD ---
Author Author [facility] Organization [facility] Address [address] [place], [place] [address] Care Team Providers Care Industrial Accountant Name Role Phone Jim PEARSON, Bunny Unavailable Felecia Aguilar NP Unavailable Gita Tompkins MA Unavailable ENCOUNTERS Encounter Performer Loca tion Date Bipolar disorder [SNOMED-CT: 51936800] [facility] 09-03-2020 Rhinitis [SNOMED-CT: 38065845] Dr[facility] Aubrey [facility] 09-03-2020 Sjogren's disease [SNOMED-CT: 09182294] Dr[facility] 09-03-2020 Fibromyalgia [SNOMED-CT: 836872978] Dr[facility] 09-03-2020 Chronic kidney disease [SNOMED-CT: 400946972] [facility] 08-23-2020 Hypertension [SNOMED-CT: 83390098] Rad[facility] 08-23-2020 Depression [SNOMED-CT: 88863186] Dr[facility] 08-23-2020 Bipolar disorder [SNOMED-CT: 89847633] [facility] 08-23-2020 Chronic obstructive pulmonary disease [SNOMED-CT: 1364 5005] [facility] 08-13-2020 Chronic kidney disease [SNOMED-CT: 330203511] [facility] 08-13-2020 Hypertension [SNOMED-CT: 59354610] [facility] 08-13-2020 Anemia [SNOMED-CT: 988095936] Dr[facility] Patti [facility] 08-13-2020 Dyspepsia [SNOMED-CT: 998142680] Dr[facility] 08-09-2020 Bipolar disorder [SNOMED-CT: 20518167] [facility] B[facility] 08-09-2020 Hypothyroidism [SNOMED-CT: 13386848] [facility] 08-09-2020 Fibromyalgia [SNOMED-CT: 188526402] [facility] 08-09-2020 Lupus [SNOMED-CT: 142369246] Dr[facility] Dominik [facility] 07-26-2020 Chronic pain [SNOMED-CT: 61716553] [facility] 07-26-2020 Migraine [SNOMED-CT: 90410301] Dr[facility] Aubrey [facility] 07-26-2020 Bipolar disorder [SNOMED-CT: 49765659] [facility] 07-26-2020 Bipolar disorder [SNOMED-CT: 61726725] Dr[facility] B[facility] 07-18-2020 Hypertension [SNOMED-CT: 65699823] Rad[facility] 07-18-2020 Chronic obstructive pulmonary disease [SNOMED-CT: 1364 5005] Dr[facility] 07-18-2020 Chronic kidney disease [SNOMED-CT: 561471473] Dr[facility] B[facility] 07-18-2020 Chronic pain [SNOMED-CT: 19652434] [facility] 2020 Bipolar disorder [SNOMED-CT: 09194917] [facility] 2020 Hypothyroidism [SNOMED-CT: 61580812] [facility] 2020 Hypertension [SNOMED-CT: 62817458] Rad[facility] 2020 Fibromyalgia [SNOMED-CT: 184156159] [facility] 06-21-2020 Lupus [SNOMED-CT: 929479901] Dr[facility] Dominik [facility] 06-21-2020 Bipolar disorder [SNOMED-CT: 48777772] [facility] 06-21-2020 Frailty [SNOMED-CT: 837961899] Dr[facility] Aubrey [facility] 06-21-2020 Chronic pain [SNOMED-CT: 88315976] [facility] 06-18-2020 Hypothyroidism [SNOMED-CT: 33839248] [facility] 06-18-2020 Klebsiella cystitis [SNOMED-CT: 50279222] Dr[facility] 06-18-2020 Sjogren's disease [SNOMED-CT: 42048849] Dr[facility] 06-18-2020 Suicidal behavior [SNOMED-CT: 266765624] Dr[facility] 06-14-2020 Hypertension [SNOMED-CT: 97046029] [facility] 06-14-2020 Chronic kidney disease [SNOMED-CT: 375679635] [facility] 06-14-2020 Chronic obstructive pulmonary disease [SNOMED-CT: 1364 5005] Dr[facility] B[facility] 06-14-2020 Chronic pain [SNOMED-CT: 38969391] Rad[facility] 05-31-2020 Chronic obstructive pulmonary disease [SNOMED-CT: 1364 5005] [facility] 05-31-2020 Chronic kidney disease [SNOMED-CT: 951746755] [facility] B[facility] 05-31-2020 Fibromyalgia [SNOMED-CT: 830893194] [facility] 05-31-2020 Chronic pain [SNOMED-CT: 51157329] [facility] 05-28-2020 Bipolar disorder [SNOMED-CT: 92887798] Dr[facility] 05-28-2020 Hypertension [SNOMED-CT: 81799157] [facility] 05-28-2020 Sjogren's disease [SNOMED-CT: 48460660] [facility] 05-28-2020 Sjogren's disease [SNOMED-CT: 99731366] Dr[facility] 05-24-2020 Bipolar disorder [SNOMED-CT: 75273034] [facility] 05-24-2020 Sjogren's disease [SNOMED-CT: 93759029] Dr[facility] 05-21-2020 Hypertension [SNOMED-CT: 78264865] [facility] 05-21-2020 Migraine [SNOMED-CT: 22988449] Dr[facility]rey [facility] 05-10-2020 Sjogren's disease [SNOMED-CT: 35007427] Dr[facility] 05-10-2020 Hypertension [SNOMED-CT: 85129354] [facility] 05-10-2020 Sjogren's disease [SNOMED-CT: 08238064] Dr[facility] 04-30-2020 Hypertension [SNOMED-CT: 75322805] [facility] 04-30-2020 Anemia [SNOMED-CT: 904754557] Dr[facility] Patti [facility] 04-30-2020 Sjogren's disease [SNOMED-CT: 66994569] Dr[facility] 04-18-2020 Hypertension [SNOMED-CT: 12636969] [facility] 04-18-2020 Obstructive uropathy [SNOMED-CT: 5615872] [facility] 04-18-2020 Chronic obstructive pulmonary disease [SNOMED-CT: 1364 5005] [facility] 04-18-2020 Klebsiella cystitis [SNOMED-CT: 86196969] [facility] 04-04-2020 Migraine [SNOMED-CT: 65635502] [facility] 04-04-2020 Sjogren's disease [SNOMED-CT: 62352369] Dr[facility] 04-04-2020 Hypertension [SNOMED-CT: 01985319] [facility] 04-04-2020 Depression [SNOMED-CT: 14050813] [facility] 03-21-2020 Obstructive uropathy [SNOMED-CT: 2172453] [facility] 03-21-2020 Obstructive uropathy [SNOMED-CT: 8519018] Dr[facility] B[facility] 03-19-2020 Depression [SNOMED-CT: 94945301] [facility] 03-19-2020 Obstructive uropathy [SNOMED-CT: 4045347] [facility] 03-14-2020 Hypertension [SNOMED-CT: 80628485] [facility] 03-14-2020 Hypertension [SNOMED-CT: 36380036] [facility] 03-07-2020 Obstructive uropathy [SNOMED-CT: 8587116] [facility] 03-07-2020 Chronic obstructive pulmonary disease [SNOMED-CT: 1364 5005] [facility] 02-29-2020 Hypertension [SNOMED-CT: 56861824] [facility] 02-29-2020 Hypertension [SNOMED-CT: 51907817] [facility] 02-27-2020 Chronic obstructive pulmonary disease [SNOMED-CT: 1364 5005] [facility] 02-27-2020 Anemia [SNOMED-CT: 257776935] Dr[facility] Patti [facility] 02-27-2020 Sjogren's disease [SNOMED-CT: 16712496] Dr[facility] Bunny [facility] 02-27-2020 Obstructive uropathy [SNOMED-CT: 0868058] Dr[facility] B[facility] 02-08-2020 Hypertension [SNOMED-CT: 92036758] [facility] 02-08-2020 Obstructive uropathy [SNOMED-CT: 2312887] Dr[facility] B[facility] 01-30-2020 Hypertension [SNOMED-CT: 93970476] [facility] 01-30-2020 Depression [SNOMED-CT: 20123530] [facility] B[facility] 01-23-2020 Obstructive uropathy [SNOMED-CT: 3525515] Dr[facility] Bunyn [facility] 01-23-2020 Hypokalemia [SNOMED-CT: 16547542] Dr Pako [facility] 01-23-2020 Hypertension [SNOMED-CT: 41020963] [facility] 01-23-2020 Lupus erythematosus [SNOMED-CT: 902721951] Dr[facility] 01-18-2020 Depression [SNOMED-CT: 61695043] Dr[facility] B[facility] 01-18-2020 Lupus erythematosus [SNOMED-CT: 515203827] Dr[facility] B[facility] 01-16-2020 Chronic obstructive pulmonary disease [SNOMED-CT: 1364 5005] [facility] B[facility] 01-16-2020 Lupus erythematosus [SNOMED-CT: 799191985] [facility] B[facility] 01-12-2020 Chronic obstructive pulmonary disease [SNOMED-CT: 1364 5005] [facility] B[facility] 01-12-2020 Folic acid deficiency [SNOMED-CT: 071252353] Fe[facility]cia [facility] 01-12-2020 Hypertension [SNOMED-CT: 54214542] [facility] 01-02-2020 Lupus erythematosus [SNOMED-CT: 640103886] Dr[facility] Bunny [facility] 01-02-2020 Chronic obstructive pulmonary disease [SNOMED-CT: 1364 5005] [facility] B[facility] 01-02-2020 Depression [SNOMED-CT: 46208277] [facility] B[facility] 12-26-2019 Migraine [SNOMED-CT: 04299979] Dr[facility] Aubrey [facility] 12-26-2019 Fibromyalgia [SNOMED-CT: 184773195] [facility] B[facility] 12-26-2019 Hypertension [SNOMED-CT: 61019087] Radha [facility] 12-26-2019 Lupus erythematosus [SNOMED-CT: 242659470] Dr[facility] Bunny [facility] 12-15-2019 Lupus erythematosus [SNOMED-CT: 113544674] [facility] B[facility] 12-05-2019 Chronic obstructive pulmonary disease [SNOMED-CT: 1364 5005] [facility] B[facility] 12-05-2019 Hypertension [SNOMED-CT: 86924621] [facility] 12-05-2019 Anemia [SNOMED-CT: 575323278] Dr[facility] Patti [facility] 12-05-2019 Hypertension [SNOMED-CT: 50159145] Radha [facility] 11-07-2019 Chronic obstructive pulmonary disease [SNOMED-CT: 1364 5005] [facility] Bunny [facility] 11-07-2019 Sepsis [SNOMED-CT: 53663423] Dr[facility] Dominik [facility] 11-03-2019 Sepsis [SNOMED-CT: 91469030] Dr[facility] Dominik [facility] 10-12-2019 Sepsis [SNOMED-CT: 47793822] Dr[facility] Dominik [facility] 10-10-2019 Acute respiratory failure [SNOMED-CT: 27188444] [facility] Bunny [facility] 10-06-2019 Encephalopathy [SNOMED-CT: 62341877] [facility] B[facility] 10-06-2019 Sepsis [SNOMED-CT: 94777209] Dr[facility] Dominik [facility] 10-06-2019 Acute kidney injury [SNOMED-CT: 03706030818386719] Dr[facility] B[facility] 10-06-2019 ALLERGIES AND ADVERSE REACTIONS Substance Reaction Sever ity Status Latex (RxNorm: 7645808) -- -- Active Lunesta (RxNorm: Unknown) -- -- Active sulfa drug (RxNorm: 96842) -- -- Active omeprazole (RxNorm: 7646) -- -- Active metoclopramide (RxNorm: 6915) -- -- Active lisinopril (RxNorm: 78148) -- -- Active erythromycin (RxNorm: 4053) -- -- Active levofloxacin (RxNorm: 68070) -- -- Active cephalexin (RxNorm: 2231) -- -- Active buPROPion (RxNorm: 10326) -- -- Active azithromycin (RxNorm: 13732) -- -- Active FUNCTIONAL STATUS There is no cognitive and functional status saved for this patient. IMMUNIZATIONS No known immunization history MEDICAL EQUIPMENT Patient has no history of implanted devices. MEDICATIONS Medication Generic Name Instructions Dosage Start Date Status senna 8.6 mg oral tablet, [RxNorm: 923529] senna 2 tabs PO QD 0 0 Active methotrexate 2.5 mg oral tablet, [RxNorm: 161209] methotrexate 3 tabs PO QD on Thursday 0 07/30/2020 Active Plaquenil 200 mg oral tablet, [RxNorm: 436946] hydroxychloroquine 1 tab PO BID 0 07/27/2020 Active gabapentin 400 mg oral capsule, [RxNorm: 050656] gabapentin 1 cap PO TID 0 0 Active pilocarpine 5 mg oral tablet, [RxNorm: 6162983] pilocarpine 1 tab PO TID 0 0 Active SUMAtriptan 25 mg oral tablet, [RxNorm: 276157] SUMAtriptan 1 tab PO Q12H PRN 0 07/26/2020 Active levothyroxine 25 mcg (0.025 mg) oral tablet, [RxNorm: 821160] levothyroxine 1/2 tab PO QD 0 07/17/2020 Active ondansetron 4 mg/5 mL oral solution, [RxNorm: 490693] ondansetron Inject 2 mL IM Q6H PRN 0 06/28/2020 Active Nicotine Inhaler 10 mg Unknown Inhale 2 puffs PO Q2H PRN 0 06/26/2020 Active bisacodyl 10 mg rectal suppository, [RxNorm: 577762] bisacodyl Insert 1 MT QD PRN 0 06/19/2020 Active predniSONE 5 mg oral tablet, [RxNorm: 916766] predniSONE 1 tab PO QD 0 06/19/2020 Active baclofen 10 mg oral tablet, [RxNorm: 739819] baclofen 1 tab PO BID 0 0 Active doxepin 25 mg oral capsule, [RxNorm: 1680089] doxepin 1 tab PO BID 0 0 Active Florastor 250 mg oral capsule, [RxNorm: 181280] saccharomyces boulardii lyo 1 cap PO BID 0 06/13/2020 Active magnesium oxide 400 mg (240 mg elemental magnesium) oral tablet, [RxNorm: 587761] magnesium oxide 1 tab PO QPM 0 06/13/2020 Active pentoxifylline 400 mg oral tablet, exten ded release, [RxNorm: 807949] pentoxifylline 1 tab PO BID 0 06/13/2020 Active Spiriva HandiHaler 18 mcg inhalation cap raquel, [RxNorm: 922315] tiotropium Inhale 1 dose PO QAM 0 06/13/2020 Active Zinc-220 oral capsule, [RxNorm: 320089] zinc sulfate 1 tab PO QPM 0 0 Active calcitriol 0.25 mcg oral capsule, [RxNorm: 107381] calcitriol 1 tab PO QHS 0 0 Active cyanocobalamin 1000 mcg oral tablet, ext ended release, [RxNorm: 030029] cyanocobalamin 1 tab PO TID 0 06/12/2020 Active Lopressor 50 mg oral tablet, [RxNorm: 106995] metoprolol 1 tab PO Q12H 0 06/12/20 20 Active traZODone 100 mg oral tablet, [RxNorm: 660176] traZODone 1 tab PO QHS 0 0 Active folic acid 1 mg oral tablet, [RxNorm: 605339] folic acid 1 tab PO QD 0 04/03/2020 Active Multiple Vitamins oral tablet multivitamin 1 tab PO QAM 0 04/03/2020 Active thiamine 100 mg oral tablet, [RxNorm: 914023] thiamine 1 tab PO QAM 0 0 Active acetaminophen 325 mg oral tablet, [RxNorm: 127878] acetaminophen 2 tabs PO Q4H PRN 0 04/02/2020 Active albuterol 90 mcg/inh inhalation aerosol albuterol Inhale 2 puffs PO QID PRN 0 04/02/2020 Active busPIRone 10 mg oral tablet, [RxNorm: 149832] busPIRone 1 tab PO BID 0 0 Active Keppra 500 mg oral tablet, [RxNorm: 551879] levETIRAcetam 1 tab PO QAM and QHS 0 04/02/2020 Active sorbitol 70% oral liquid, [RxNorm: 109004] sorbitol 30 cc PO QD PRN 0 2019 Active Symbicort 160 mcg-4.5 mcg/inh inhalation aerosol, [RxNorm: 0721356] budesonide-formoterol Inhale 2 puffs PO BID 0 04/02/2020 Active INSURANCE PROVIDERS Payer Name Policy Type P olicy ID Covered Libertarian ID Policy [employer] [place] ([facility]) - J13 Health Insurance [id number] NEERU EUBANKSAGE [employer] [place] /[employer]. [id number] DESIRAE JAEGER ASSESSMENTS # Rhinitis (J31.0):# Sjogren's disease (M35.00): # Fibromyalgia (M79.7): # Bipolar disorder (F31.9): Rhinitis: Most likely secondary to humidity. Advised and encouraged increased fluid intake. Monitor for worsening signs and symptoms and consider further work-up if any further worsening. Continue surveillance. Sjogren's disease, SLE : Remains controlled on Plaquenil, Methotrexate and Gabapentin. Advised and encouraged to increase activity and range of motion exercises as tolerated. Monitor for worsening signs and symptoms and adjust treatment accordingly. Continue surveillance.Fibromyalgia, Chronic pain, DJD : Remains fairly controlled on APAP and Baclofen. Advised and encouraged to increase activity and range of motion exercises as tolerated. Monitor for worsening pain and adjust treatment accordingly. On Calcium/Vit D.Bipolar disorder: Remains controlled on Trazodone, Doxepin and Buspirone. Monitor for any signs and symptoms and adjust treatment accordingly. Continue current supportive care, reassurance, and redirection.Hypertension: Remains controlled on beta emelia. Monitor BP and adjust treatment accordingly. PROBLEMS Problem Problem Status D ate Started Date Resolved Date Inactivated Lupus [SNOMED-CT: 956922683] Active 07-26-2020 NA NA Hypothyroidism [SNOMED-CT: 33746004] Activ e 06-18-2020 NA NA Klebsiella cystitis [SNOMED-CT: 71087548] Active 04-04-2020 NA NA Lupus [SNOMED-CT: 791199926] Active 06-21-2020 NA NA Frailty [SNOMED-CT: 473404885] Active 06-21-2020 NA NA Obstructive uropathy [SNOMED-CT: 7674503] Active 01-23-2020 NA NA Hypokalemia [SNOMED-CT: 20511004] Active 01-23-2020 NA NA Chronic kidney disease [SNOMED-CT: 166729006] Active 05-31-2020 NA NA Sjogren's disease [SNOMED-CT: 57764631] Active 02-27-2020 NA NA Dyspepsia [SNOMED-CT: 272385027] Active 08-09-2020 NA NA Flatulent dyspepsia [SNOMED-CT: 320090713] Active 08-09-2020 NA NA Suicidal behavior [SNOMED-CT: 686258483] Active 06-14-2020 NA NA Acute respiratory failure [SNOMED-CT: 36157461] Active 10-06-2019 NA NA Encephalopathy [SNOMED-CT: 33642753] Activ e 10-06-2019 NA NA Rhinitis [SNOMED-CT: 12075948] Active 09-03-2020 NA NA Sepsis [SNOMED-CT: 56870737] Active 10-06-2019 NA NA Folic acid deficiency [SNOMED-CT: 025327598] Active 01-12-2020 NA NA Acute kidney injury [SNOMED-CT: 64971611379393800] Active 10-06-2019 NA NA Depression [SNOMED-CT: 26442222] Active 12-26-2019 NA NA Migraine [SNOMED-CT: 70381481] Active 12-26-2019 NA NA Fibromyalgia [SNOMED-CT: 800945955] Active 12-26-2019 NA NA Lupus erythematosus [SNOMED-CT: 157294459] Active 12-05-2019 NA NA Chronic obstructive pulmonary disease [SNOMED-CT: 1364 5005] Active 12-05-2019 NA NA Hypertension [SNOMED-CT: 96258155] Active 12-05-2019 NA NA Anemia [SNOMED-CT: 131995452] Active 12-05-2019 NA NA Chronic pain [SNOMED-CT: 49472098] Active 05-24-2020 NA NA Bipolar disorder [SNOMED-CT: 68682967] Active 05-24-2020 NA NA PROCEDURES Procedure Date CPT Code Procedure 09/03/2020 21:24:08 [id number] Subsequent nursing facility care, per day, for the evaluation and management of a patient, which requires at least 2 of these 3 perry components: An expanded problem focused interval history; An expanded problem focused examination; Medical decision making 08/23/2020 08:02:15 [id number] Subsequent nursing facility care, per day, for the evaluation and management of a patient, which requires at least 2 of these 3 perry components: An expanded problem focused interval history; An expanded problem focused examination; Medical decision making 08/13/2020 15:14:00 [id number] Subsequent nursing facility care, per day, for the evaluation and management of a patient, which requires at least 2 of these 3 perry components: A detailed interval history; A detailed examination; Medical decision making of moderate complexity. Counseling 08/09/2020 11:45:03 00787 Subsequent nursing facility care, per day, for the evaluation and management of a patient, which requires at least 2 of these 3 perry components: A detailed interval history; A detailed examination; Medical decision making of moderate complexity. Counseling 07/26/2020 15:58:23 55352 Subsequent nursing facility care, per day, for the evaluation and management of a patient, which requires at least 2 of these 3 perry components: A detailed interval history; A detailed examination; Medical decision making of moderate complexity. Counseling 07/18/2020 07:39:11 48363 Subsequent nursing facility care, per day, for the evaluation and management of a patient, which requires at least 2 of these 3 perry components: A detailed interval history; A detailed examination; Medical decision making of moderate complexity. Counseling 2020 11:41:50 18097 Subsequent nursing facility care, per day, for the evaluation and management of a patient, which requires at least 2 of these 3 perry components: A detailed interval history; A detailed examination; Medical decision making of moderate complexity. Counseling 06/21/2020 15:35:51 85251 Subsequent nursing facility care, per day, for the evaluation and management of a patient, which requires at least 2 of these 3 perry components: A detailed interval history; A detailed examination; Medical decision making of moderate complexity. Counseling 06/18/2020 12:04:28 07881 Subsequent nursing facility care, per day, for the evaluation and management of a patient, which requires at least 2 of these 3 perry components: A detailed interval history; A detailed examination; Medical decision making of moderate complexity. Counseling 06/14/2020 22:45:35 [id number] Initial nursing facility care, per day, for the evaluation and management of a patient, which requires these 3 perry components: A comprehensive history; A comprehensive examination; and Medical decision making of high complexity. Counseling and/or coordina 06/14/2020 22:45:35 42148 Advance care planning including the explanation and discussion of advance directives such as standard forms (with completion of such forms, when performed), by the physician or other qualified health day care attendant; first 30 minutes, [id number] with the patient, family member(s), and/or surrogate 05/31/2020 22:15:00 [id number] Subsequent nursing facility care, per day, for the evaluation and management of a patient, which requires at least 2 of these 3 perry components: An expanded problem focused interval history; An expanded problem focused examination; Medical decision making 05/28/2020 16:07:10 45158 Subsequent nursing facility care, per day, for the evaluation and management of a patient, which requires at least 2 of these 3 perry components: A detailed interval history; A detailed examination; Medical decision making of moderate complexity. Counseling 05/24/2020 13:58:32 [id number] Subsequent nursing facility care, per day, for the evaluation and management of a patient, which requires at least 2 of these 3 perry components: An expanded problem focused interval history; An expanded problem focused examination; Medical decision making 05/21/2020 11:28:00 [id number] Subsequent nursing facility care, per day, for the evaluation and management of a patient, which requires at least 2 of these 3 perry components: A detailed interval history; A detailed examination; Medical decision making of moderate complexity. Counseling 05/10/2020 12:20:39 [id number] Subsequent nursing facility care, per day, for the evaluation and management of a patient, which requires at least 2 of these 3 perry components: A detailed interval history; A detailed examination; Medical decision making of moderate complexity. Counseling 04/30/2020 08:05:15 [id number] Subsequent nursing facility care, per day, for the evaluation and management of a patient, which requires at least 2 of these 3 perry components: A detailed interval history; A detailed examination; Medical decision making of moderate complexity. Counseling 04/18/2020 08:11:29 [id number] Subsequent nursing facility care, per day, for the evaluation and management of a patient, which requires at least 2 of these 3 perry components: An expanded problem focused interval history; An expanded problem focused examination; Medical decision making 04/04/2020 21:57:28 [id number] Initial nursing facility care, per day, for the evaluation and management of a patient, which requires these 3 perry components: A comprehensive history; A comprehensive examination; and Medical decision making of high complexity. Counseling and/or coordina 04/04/2020 21:57:28 [id number] Advance care planning including the explanation and discussion of advance directives such as standard forms (with completion of such forms, when performed), by the physician or other qualified health day care attendant; first 30 minutes, [id number] with the patient, family member(s), and/or surrogate 03/21/2020 15:33:19 [id number] Subsequent nursing facility care, per day, for the evaluation and management of a patient, which requires at least 2 of these 3 perry components: An expanded problem focused interval history; An expanded problem focused examination; Medical decision making 03/19/2020 13:37:38 [id number] Subsequent nursing facility care, per day, for the evaluation and management of a patient, which requires at least 2 of these 3 perry components: A detailed interval history; A detailed examination; Medical decision making of moderate complexity. Counseling 03/14/2020 10:32:08 [id number] Subsequent nursing facility care, per day, for the evaluation and management of a patient, which requires at least 2 of these 3 perry components: An expanded problem focused interval history; An expanded problem focused examination; Medical decision making 03/07/2020 13:03:22 [id number] Subsequent nursing facility care, per day, for the evaluation and management of a patient, which requires at least 2 of these 3 perry components: An expanded problem focused interval history; An expanded problem focused examination; Medical decision making 02/29/2020 15:10:12 [id number] Subsequent nursing facility care, per day, for the evaluation and management of a patient, which requires at least 2 of these 3 peryr components: An expanded problem focused interval history; An expanded problem focused examination; Medical decision making 02/27/2020 09:49:26 [id number] Subsequent nursing facility care, per day, for the evaluation and management of a patient, which requires at least 2 of these 3 perry components: A detailed interval history; A detailed examination; Medical decision making of moderate complexity. Counseling 02/08/2020 14:00:33 [id number] Subsequent nursing facility care, per day, for the evaluation and management of a patient, which requires at least 2 of these 3 perry components: An expanded problem focused interval history; An expanded problem focused examination; Medical decision making 01/30/2020 10:26:15 [id number] Subsequent nursing facility care, per day, for the evaluation and management of a patient, which requires at least 2 of these 3 perry components: An expanded problem focused interval history; An expanded problem focused examination; Medical decision making 01/23/2020 14:46:01 [id number] Subsequent nursing facility care, per day, for the evaluation and management of a patient, which requires at least 2 of these 3 perry components: A detailed interval history; A detailed examination; Medical decision making of moderate complexity. Counseling 01/18/2020 10:46:05 [id number] Subsequent nursing facility care, per day, for the evaluation and management of a patient, which requires at least 2 of these 3 perry components: An expanded problem focused interval history; An expanded problem focused examination; Medical decision making 01/16/2020 11:04:02 [id number] Subsequent nursing facility care, per day, for the evaluation and management of a patient, which requires at least 2 of these 3 perry components: An expanded problem focused interval history; An expanded problem focused examination; Medical decision making 01/12/2020 10:04:10 [id number] Subsequent nursing facility care, per day, for the evaluation and management of a patient, which requires at least 2 of these 3 perry components: An expanded problem focused interval history; An expanded problem focused examination; Medical decision making 01/02/2020 09:46:14 [id number] Subsequent nursing facility care, per day, for the evaluation and management of a patient, which requires at least 2 of these 3 perry components: A detailed interval history; A detailed examination; Medical decision making of moderate complexity. Counseling 12/26/2019 11:47:04 [id number] Subsequent nursing facility care, per day, for the evaluation and management of a patient, which requires at least 2 of these 3 perry components: An expanded problem focused interval history; An expanded problem focused examination; Medical decision making 12/15/2019 11:29:15 [id number] Subsequent nursing facility care, per day, for the evaluation and management of a patient, which requires at least 2 of these 3 perry components: An expanded problem focused interval history; An expanded problem focused examination; Medical decision making 12/08/2019 18:08:20 [id number] Brief emotional/behavioral assessment (eg, depression inventory, attention- deficit/hyperactivity disorder [ADHD] scale), with scoring and documentation, per standardized instrument 12/08/2019 18:08:20 [id number] Test Administration and Scoring 12/08/2019 18:08:20 [id number] Post Test Interpretation and Integration of Results 12/05/2019 10:06:18 [id number] Subsequent nursing facility care, per day, for the evaluation and management of a patient, which requires at least 2 of these 3 perry components: A detailed interval history; A detailed examination; Medical decision making of moderate complexity. Counseling 11/07/2019 09:40:44 [id number] Subsequent nursing facility care, per day, for the evaluation and management of a patient, which requires at least 2 of these 3 perry components: A detailed interval history; A detailed examination; Medical decision making of moderate complexity. Counseling 11/03/2019 10:51:44 [id number] Subsequent nursing facility care, per day, for the evaluation and management of a patient, which requires at least 2 of these 3 perry components: An expanded problem focused interval history; An expanded problem focused examination; Medical decision making 10/12/2019 09:22:34 [id number] Subsequent nursing facility care, per day, for the evaluation and management of a patient, which requires at least 2 of these 3 perry components: An expanded problem focused interval history; An expanded problem focused examination; Medical decision making 10/10/2019 15:04:34 [id number] Subsequent nursing facility care, per day, for the evaluation and management of a patient, which requires at least 2 of these 3 perry components: An expanded problem focused interval history; An expanded problem focused examination; Medical decision making 10/07/2019 16:28:38 [id number] Prolonged evaluation and management service before and/or after direct patient care; first hour 10/06/2019 19:20:45 [id number] Initial nursing facility care, per day, for [...] 03/26/2020 07:52:55 VITAMIN B12 304 PG/ML PG/ML 211-2000 N 01/12/2020 07:42:00 FOLATE > 24.00 NG/ML [...] Dates Observed Smoking Status Current every day smo ker, [SNOMED-CT: [id number]], 7.50 packs per day 10/06/2019 TREATMENT PLAN Encounter Date Planned Care 09/03/2020 21:24:08 PROVIDED: Patient Education (09/03/2020) Medication [...] her , 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 She fully understood our discussion and has [...] PROVIDED: Patient Education (05/24/2020) velez 05/24/2020 08:47:37 PROVIDED: Patient Education (05/24/2020) rx havs 05/24/2020 08:47:37 PROVIDED: Patient Education (05/24/2020) velez 05/24/2020 08:47:37 d 05/21/2020 11:28:00 PROVIDED: Patient Education (05/21/2020) Signed [...] (/min) Head Circumf OFC by Tape measure 09/03/2020 21:24:08 67 1 79.6 28.1 -- -- 73 -- -- -- 1 7 -- 08/23/2020 08:02:15 67 1 79.6 28.1 124 74 70 91 -- 98.1 F 18 -- 08/13/2020 15:14:00 67 1 67 26.2 102 58 76 98 -- 98.3 F 16 -- 08/09/2020 11:45:03 67 1 67 26.2 114 73 78 99 -- 97.9 F 18 -- 07/26/2020 15:58:23 67 1 67 26.2 110 60 60 97 -- 98.4 F 18 -- 07/18/2020 07:39:11 67 1 66.3 26.0 90 59 60 98 -- 98.2 F 20 -- 2020 11:41:50 67 -- -- 112 66 66 98 -- 97.8 F 18 -- 06/21/2020 15:35:51 67 1 53.6 24.1 [...] 72 96 -- 98.5 F 17 -- 05/21/2020 11:28:00 67 1 53.6 24.1 137 64 72 96 -- 98.3 F 17 -- 05/10/2020 12:20:39 67 1 50.6 23.6 [...] 24.4 128 64 62 97 -- 97.2 17 -- 03/19/2020 13:37:38 67 1 55.6 [...]
--- OUTSIDE RECORDS SUMMARY | 2020-12-01 05:19 | CCD ---
Author Author [facility] Address Unknown Phone Unavailable Support Name Relationship Address Phone CONTACT, UNKNOWN Next Of Kin Unknown Sadie [place] [address] Sadie Niño (Cousin/Healt Next Of Kin Unknown U [facility] Carmen Tirado Next Of Kin [address] [place] [address] UN Next Of Kin Unknown Unavailable KATIE NIÑO Next Of Kin Unknown D Next Of Kin Unknown Unavailable Shaniqua George Next Of Kin [address] [place] [address] FIDELIA ROMAN Next Of Kin [address] [place] [address] [place] [address] SADIE NIÑO Next Of Kin Unknown Elaine Arnold Next Of Kin [address] [place] [address] SADIE MATTSON Next Of Kin Unknown SADIE [place] [address] Osiris Ceja Next Of Kin [address] [place] [phone] Benita [place] [address] CELL UE Next Of Kin Unknown Unavailable ALEXANDRO DE ANDA Next Of Kin [place], [place] ALEXANDRO EWING Next Of Kin [place], [place] SRINIVAS MONTALVO Next Of Kin Unknown DISABLED Next Of Kin Unknown Unavailable LES MONTALVO Next Of Kin [phone] [place], [place] [id number] PORFIRIO MEHTA Next Of Kin [id number] [place] [address] FIDELIA ROMAN ECON [address] [place] [address] Unavailable Constantin Niño ECON Unknown NIÑOSADIE LANDIN ECON [address] [place] [address] [phone] Care Team 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 Name Role Phone SUSANA K MT PEARSON Unavailable Unavailable GANGIREDDY, K MT PEARSON Unavailable Unavailable GANGIREDDY, K MT PEARSON Unavailable Unavailable GANGIREDDY, K MT PEARSON Unavailable Unavailable GANGIREDDY, K MT PEARSON Unavailable Unavailable GANGIREDDY, K MT PEARSON Unavailable Unavailable GANGIREDDY, K MT PEARSON Unavailable Unavailable GANGIREDDY, K MT PEARSON Unavailable Unavailable GANGIREDDY, K MT PEARSON Unavailable Unavailable GANGIREDDY, K MT PEARSON Unavailable Unavailable GANGIREDDY, K MT PEARSON Unavailable Unavailable GANGIREDDY, K MT PEARSON Unavailable Unavailable GANGIREDDY, K MT PEARSON Unavailable Unavailable GANGIREDDY, K MT PEARSON Unavailable Unavailable GANGIREDDY, K MT PEARSON Unavailable Unavailable GANGIREDDY, K MT PEARSON Unavailable Unavailable GANGIREDDY, K MT PEARSON Unavailable Unavailable GANGIREDDY, K MT PEARSON Unavailable Unavailable GANGIREDDY, K MT PEARSON Unavailable Unavailable GANGIREDDY, K MT PEARSON Unavailable Unavailable GANGIREDDY, K MT PEARSON Unavailable Unavailable GANGIREDDY, K MT PEARSON Unavailable Unavailable GANGIREDDY, K MT PEARSON Unavailable Unavailable IAN, JOSUE PA Unavailable Unavailable IAN, JOSUE PA Unavailable Unavailable IAN, JOSUE PA Unavailable Unavailable IAN, JOSUE PA Unavailable Unavailable IAN, JOSUE PA Unavailable Unavailable IAN, JOSUE PA Unavailable Unavailable IAN, JOSUE PA Unavailable Unavailable IAN, JOSUE PA Unavailable Unavailable IAN, JOSUE PA Unavailable Unavailable IAN, JOSUE PA Unavailable Unavailable IAN, JOSUE PA Unavailable Unavailable IAN, JOSUE PA Unavailable Unavailable IAN, JOSUE PA Unavailable Unavailable IAN, JOSUE PA Unavailable Unavailable IAN, JOSUE PA Unavailable Unavailable Ioana Roland MD Unavailable Unavailable Ioana Roland MD Unavailable Unavailable Ioana Roland MD Unavailable Unavailable Ioana Roland MD Unavailable Unavailable Ioana Roland MD Unavailable Unavailable Ioana Roland MD Unavailable Unavailable Ioana Roland MD Unavailable Unavailable Ioana Roland MD Unavailable Unavailable Ioana Roland MD Unavailable Unavailable Ioana Roland MD Unavailable Unavailable Ioana Roland MD Unavailable Unavailable Ioana Roland MD Unavailable Unavailable Ioana Roland MD Unavailable Unavailable Ioana Roland MD Unavailable Unavailable Ioana Roland MD Unavailable Unavailable Ioana Roland MD Unavailable Unavailable Ioana Roland MD Unavailable Unavailable Ioana Roland MD Unavailable Unavailable Ioana Roland MD Unavailable Unavailable Ioana Roland MD Unavailable Unavailable Ioana Roland MD Unavailable Unavailable Ioana Roland MD Unavailable Unavailable Ioana Roland MD Unavailable Unavailable Ioana Roland MD Unavailable Unavailable Ioana Roland MD Unavailable Unavailable Ioana Roland MD Unavailable Unavailable Ioana Roland MD Unavailable Unavailable Ioana Roland MD Unavailable Unavailable Ioana Roland MD Unavailable Unavailable Ioana Roland MD Unavailable Unavailable Ioana Roland MD Unavailable Unavailable Ioana Roland MD Unavailable Unavailable Ioana Roland MD Unavailable Unavailable Ioana Roland MD Unavailable Unavailable Ioana Roland MD Unavailable Unavailable Benita CUETO MD Unavailable Unavailable Benita CUETO MD Unavailable Unavailable Benita CUETO MD Unavailable Unavailable Benita CUETO MD Unavailable Unavailable Benita CUETO MD Unavailable Unavailable Benita CUETO MD Unavailable Unavailable Benita CUETO MD Unavailable Unavailable Benita CUETO MD Unavailable Unavailable Benita CUETO MD Unavailable Unavailable Benita CUETO MD Unavailable Unavailable Benita CUETO MD Unavailable Unavailable Benita CUETO MD Unavailable Unavailable Benita CUETO MD Unavailable Unavailable Benita CUETO MD Unavailable Unavailable Benita CUETO MD Unavailable Unavailable Benita CUETO MD Unavailable Unavailable Benita CUETO MD Unavailable Unavailable Benita CUETO MD Unavailable Unavailable Benita CUETO MD Unavailable Unavailable Benita CUETO MD Unavailable Unavailable DARNELL, EMILY PEARSON Unavailable Unavailable SUNGLJ DO Unavailable Unavailable Dator SR, Sonia Anderson MD Unavailable Unavailable Dator SR, Sonia Anderson MD Unavailable Unavailable Dator SR, Sonia Anderson MD Unavailable Unavailable Dator SR, Sonia Anderson MD Unavailable Unavailable Dator SR, Sonia Anderson MD Unavailable Unavailable Dator SR, Sonia Anderson MD Unavailable Unavailable Dator SR, Sonia Anderson MD Unavailable Unavailable Dator SR, Sonai Anderson MD Unavailable Unavailable Dator SR, Sonia Anderson MD Unavailable Unavailable Dator SR, Sonia Anderson MD Unavailable Unavailable Dator SR, Sonia Anderson MD Unavailable Unavailable Dator SR, Sonia Anderson MD Unavailable Unavailable Dator SR, Sonia Anderson MD Unavailable Unavailable Dator SR, Sonia Anderson MD Unavailable Unavailable Dator SR, Sonia Anderson MD Unavailable Unavailable Dator SR, Sonia Anderson MD Unavailable Unavailable Dator SR, Sonia Anderson MD Unavailable Unavailable Dator SR, Sonia Anderson MD Unavailable Unavailable Dator SR, Sonia Anderson MD Unavailable Unavailable Dator SR, Sonia Anderson MD Unavailable Unavailable Dator SR, Sonia Anderson MD Unavailable Unavailable Dator SR, Sonia Anderson MD Unavailable Unavailable Dator SR, Sonia Anderson MD Unavailable Unavailable Dator SR, Sonia Anderson MD Unavailable Unavailable Dator SR, Sonia Anderson MD Unavailable Unavailable Dator SR, Sonia Anderson MD Unavailable Unavailable Dator SR, Sonia Anderson MD Unavailable Unavailable Dator SR, Sonia Anderson MD Unavailable Unavailable Dator SR, Sonia Anderson MD Unavailable Unavailable Dator SR, Sonia Anderson MD Unavailable Unavailable Dator SR, Sonia Anderson MD Unavailable Unavailable Dator SR, Sonia Anderson MD Unavailable Unavailable Dator SR, Sonia Anderson MD Unavailable Unavailable Dator SR, Sonia Anderson MD Unavailable Unavailable Dator SR, Sonia Anderson MD Unavailable Unavailable Dator SR, Sonia Anderson MD Unavailable Unavailable Dator SR, Sonia Anderson MD Unavailable Unavailable Dator SR, Sonia Anderson MD Unavailable Unavailable Dator SR, Sonia Anderson MD Unavailable Unavailable Dator SR, Sonia Anderson MD Unavailable Unavailable Dator SR, Sonia Anderson MD Unavailable Unavailable Dator SR, Sonia Anderson MD Unavailable Unavailable Dator SR, Sonia Anderson MD Unavailable Unavailable Dator SR, Sonia Anderson MD Unavailable Unavailable Dator SR, Sonia Anderson MD Unavailable Unavailable Dator SR, Sonia Anderson MD Unavailable Unavailable Dator SR, Sonia Anderson MD Unavailable Unavailable Dator SR, Sonia Anderson MD Unavailable Unavailable Dator SR, Sonia Anderson MD Unavailable Unavailable Dator SR, Sonia Anderson MD Unavailable Unavailable Dator SR, Sonia Anderson MD Unavailable Unavailable Dator SR, Sonia Anderson MD Unavailable Unavailable Dator SR, Sonia Anderson MD Unavailable Unavailable Dator SR, Sonia Anderson MD Unavailable Unavailable Res. CC COVID 19, Morningstr null Unavailable Unava ilable OLIVER, SALVADOR MARYA PA Unavailable Unavailable OLIVER, SALVADOR MARYA PA Unavailable Unavailable OLIVER, SALVADOR MARYA PA Unavailable Unavailable OLIVER, SALVADOR MARYA PA Unavailable Unavailable OLIVER, SALVADOR MARYA PA Unavailable Unavailable OLIVER, SALVADOR MARYA PA Unavailable Unavailable OLIVER, SALVADOR MARYA PA Unavailable Unavailable OLIVER, SALVADOR MARYA PA Unavailable Unavailable OLIVER, SALVADOR MARYA PA Unavailable Unavailable OLIVER, SALVADOR MARYA PA Unavailable Unavailable OLIVER, SALVADOR MARYA PA Unavailable Unavailable OLIVER, SALVADOR MARYA PA Unavailable Unavailable OLIVER, SALVADOR MARYA PA Unavailable Unavailable OLIVER, SALVADOR MARYA PA Unavailable Unavailable OLIVER, SALVADOR MARYA PA Unavailable Unavailable OLIVER, SALVADOR MARYA PA Unavailable Unavailable OLIVER, SALVADOR MARYA PA Unavailable Unavailable OLIVER, SALVADOR MARYA PA Unavailable Unavailable OLIVER, SALVADOR MARYA PA Unavailable Unavailable OLIVER, SALVADOR MARYA PA Unavailable Unavailable OLIVER, SALVADOR MARYA PA Unavailable Unavailable VIOLA SUAREZ MD Unavailable Unavailable VIOLA SUAREZ MD Unavailable Unavailable VIOLA SUAREZ MD Unavailable Unavailable VIOLA SUAREZ MD Unavailable Unavailable VIOLA SUAREZ MD Unavailable Unavailable VIOLA SUAREZ MD Unavailable Unavailable VIOLA SUAREZ MD Unavailable Unavailable VIOLA SUAREZ MD Unavailable Unavailable VIOLA SUAREZ MD Unavailable Unavailable VIOLA SUAREZ MD Unavailable Unavailable Ian, A Elaine TRAINING AND DEVELOPMENT MANAGER Unavailable Unavailable Ian, A Elaine TRAINING AND DEVELOPMENT MANAGER Unavailable Unavailable Ian, A Elaine TRAINING AND DEVELOPMENT MANAGER Unavailable Unavailable Ian, A Elaine TRAINING AND DEVELOPMENT MANAGER Unavailable Unavailable Ian, A Elaine TRAINING AND DEVELOPMENT MANAGER Unavailable Unavailable Ian, A Elaine TRAINING AND DEVELOPMENT MANAGER Unavailable Unavailable Ian, A Elaine TRAINING AND DEVELOPMENT MANAGER Unavailable Unavailable Ian, A Elaine TRAINING AND DEVELOPMENT MANAGER Unavailable Unavailable Ian, A Elaine TRAINING AND DEVELOPMENT MANAGER Unavailable Unavailable Ian, A Elaine TRAINING AND DEVELOPMENT MANAGER Unavailable Unavailable Ian, A Elaine TRAINING AND DEVELOPMENT MANAGER Unavailable Unavailable Ian, A Elaine TRAINING AND DEVELOPMENT MANAGER Unavailable Unavailable Ian, A Elaine TRAINING AND DEVELOPMENT MANAGER Unavailable Unavailable Ian, A Elaine TRAINING AND DEVELOPMENT MANAGER Unavailable Unavailable Ian, A Elaine TRAINING AND DEVELOPMENT MANAGER Unavailable Unavailable Ian, A Elaine TRAINING AND DEVELOPMENT MANAGER Unavailable Unavailable Ian, A Elaine TRAINING AND DEVELOPMENT MANAGER Unavailable Unavailable Ian, A Elaine TRAINING AND DEVELOPMENT MANAGER Unavailable Unavailable Ian, A Elaine TRAINING AND DEVELOPMENT MANAGER Unavailable Unavailable Ian, A Elaine TRAINING AND DEVELOPMENT MANAGER Unavailable Unavailable Ian, A Elaine TRAINING AND DEVELOPMENT MANAGER Unavailable Unavailable Ian, A Elaine TRAINING AND DEVELOPMENT MANAGER Unavailable Unavailable Ian, A Elaine TRAINING AND DEVELOPMENT MANAGER Unavailable Unavailable Ian, A Elaine TRAINING AND DEVELOPMENT MANAGER Unavailable Unavailable Ian, A Elaine TRAINING AND DEVELOPMENT MANAGER Unavailable Unavailable Ian, A Elaine TRAINING AND DEVELOPMENT MANAGER Unavailable Unavailable Ian, A Elaine TRAINING AND DEVELOPMENT MANAGER Unavailable Unavailable GANGIREDDY, K MT PEARSON Unavailable Unavailable GANGIREDDY, K MT PEARSON Unavailable Unavailable GANGIREDDY, K MT PEARSON Unavailable Unavailable GANGIREDDY, K MT PEARSON Unavailable Unavailable GANGIREDDY, Tera AMOR MD Unavailable Unavailable GANGIREDDY, K MT PEARSON Unavailable Unavailable GANGIREDDY, K MT PEARSON Unavailable Unavailable GANGIREDDY, Tera AMOR MD Unavailable Unavailable GANGIREDDY, K MT PEARSON Unavailable Unavailable GANGIREDDY, K MT PEARSON Unavailable Unavailable GANGIREDDY, K MT PEARSON Unavailable Unavailable GANGIREDDY, K MT PEARSON Unavailable Unavailable GANGIREDDY, K MT PEARSON Unavailable Unavailable GANGIREDDY, Tera AMOR MD Unavailable Unavailable GANGIREDDY, K MT PEARSON Unavailable Unavailable GANGIREDDY, K MT PEARSON Unavailable Unavailable GANGIREDDY, K MT PEARSON Unavailable Unavailable GANGIREDDY, K MT PEARSON Unavailable Unavailable GANGIREDDY, K MT PEARSON Unavailable Unavailable GANGIREDDY, K MT PEARSON Unavailable Unavailable GANGIREDDY, K MT PEARSON Unavailable Unavailable GANGIREDDY, Tera AMOR MD Unavailable Unavailable GANGIREDDY, K MT PEARSON Unavailable Unavailable VIOLA SUAREZ MD Unavailable Unavailable VIOLA SUAREZ MD Unavailable Unavailable VIOLA SUAREZ MD Unavailable Unavailable VIOLA SUAREZ MD Unavailable Unavailable VIOLA SUAREZ MD Unavailable Unavailable VIOLA SUAREZ MD Unavailable Unavailable VIOLA SUAREZ MD Unavailable Unavailable VIOLA SUAREZ MD Unavailable Unavailable VIOLA SUAREZ MD Unavailable Unavailable VIOLA SUAREZ MD Unavailable Unavailable Dominic PEARSON, Dylan Yañez Unavailable [phone] SAADA, Benita FAMARY MD Unavailable Unavailable SAADA, Benita FAHED MD Unavailable Unavailable SAADA, A FAHED MD Unavailable Unavailable SAADA, A FAHED MD Unavailable Unavailable SAADA, A FAHED MD Unavailable Unavailable SAADA, A BECKAHED MD Unavailable Unavailable SAADA, Benita JOVELHED MD Unavailable Unavailable SAADA, Benita JOVELHED MD Unavailable Unavailable SAADA, Benita CHENG MD Unavailable Unavailable SAADA, A BECKAHED MD Unavailable Unavailable SAADA, Benita JOVELHED MD Unavailable Unavailable SAADA, Benita JOVELHED MD Unavailable Unavailable SAADA, Benita CHENG MD Unavailable Unavailable SAADA, Benita CHENG MD Unavailable Unavailable SAADA, Benita CHENG MD Unavailable Unavailable SAADA, Benita CHENG MD Unavailable Unavailable SAADA, A BECKAHED MD Unavailable Unavailable SAADA, Benita JOVELHED MD Unavailable Unavailable SAADA, A BECKAHED MD Unavailable Unavailable SAADA, A BECKAHED MD Unavailable Unavailable Mitchel, Benita Ignacio MD Unavailable Unavailable Mitchel, Benita Ignacio MD Unavailable Unavailable Mitchel, Benita Ignacio MD Unavailable Unavailable Mitchel, Benita Ignacio MD Unavailable Unavailable Mitchel, Benita Ignacio MD Unavailable Unavailable Mitchel, Benita Ignacio MD Unavailable Unavailable Mitchel, Benita Ignacio MD Unavailable Unavailable Mitchel, Benita Ignacio MD Unavailable Unavailable Mitchel, Benita Ignacio MD Unavailable Unavailable Mitchel, Benita Ignacio MD Unavailable Unavailable Mitchel, Benita Ignacio MD Unavailable Unavailable Mitchel, Benita Ignacio MD Unavailable Unavailable Mitchel, Benita Ignacio MD Unavailable Unavailable Mitchel, Benita Ignacio MD Unavailable Unavailable Mitchel, Benita Ignacio MD Unavailable Unavailable Mitchel, Benita Ignacio MD Unavailable Unavailable Mitchel, Benita Ignacio MD Unavailable Unavailable Mitchel, Benita Ignacio MD Unavailable Unavailable Mitchel, Benita Ignacio MD Unavailable Unavailable Mitchel, Benita Ignacio MD Unavailable Unavailable Mitchel, Benita Ignacio MD Unavailable Unavailable Mitchel, Benita Ignacio MD Unavailable Unavailable SHARI RAMOS MD Unavailable Unavailable SHARI RAMOS MD Unavailable Unavailable SHARI RAMOS MD Unavailable Unavailable SHARI RAMOS MD Unavailable Unavailable SHARI RAMOS MD Unavailable Unavailable PANTSHARI MD Unavailable Unavailable SHARI RAMOS MD Unavailable Unavailable SHARI RAMOS MD Unavailable Unavailable Dmitriy PATRICK MD Unavailable Unavailable Dmitriy PATRICK MD Unavailable Unavailable Dmitriy PATRICK MD Unavailable Unavailable Key Scott MD Unavailable Unavailable Key Scott MD Unavailable Unavailable Key Scott MD Unavailable Unavailable Key Scott MD Unavailable Unavailable Key Scott MD Unavailable Unavailable Key Scott MD Unavailable Unavailable Key Scott MD Unavailable Unavailable Key Scott MD Unavailable Unavailable Key Scott MD Unavailable Unavailable Key Scott MD Unavailable Unavailable Key Scott MD Unavailable Unavailable Key Scott MD Unavailable Unavailable Key Scott MD Unavailable Unavailable Key Scott MD Unavailable Unavailable Key Scott MD Unavailable Unavailable Key Scott MD Unavailable Unavailable Key Scott MD Unavailable Unavailable Key Scott MD Unavailable Unavailable Key Scott MD Unavailable Unavailable Key Scott MD Unavailable Unavailable Key Scott MD Unavailable Unavailable Key Scott MD Unavailable Unavailable Key Scott MD Unavailable Unavailable Key Scott MD Unavailable Unavailable Key Scott MD Unavailable Unavailable Key Scott MD Unavailable Unavailable Key Scott MD Unavailable Unavailable Key Scott MD Unavailable Unavailable Key Scott MD Unavailable Unavailable Key Scott MD Unavailable Unavailable Key Scott MD Unavailable Unavailable Key Scott MD Unavailable Unavailable Key Scott MD Unavailable Unavailable Key Scott MD Unavailable Unavailable Key Scott MD Unavailable Unavailable Key Scott MD Unavailable Unavailable Key Scott MD Unavailable Unavailable Key Scott MD Unavailable Unavailable Key Scott MD Unavailable Unavailable Key Scott MD Unavailable Unavailable Key Scott MD Unavailable Unavailable Key Scott MD Unavailable Unavailable Key Scott MD Unavailable Unavailable Key Scott MD Unavailable Unavailable Key Scott MD Unavailable Unavailable Key Scott MD Unavailable Unavailable Key Scott MD Unavailable Unavailable Key Scott MD Unavailable Unavailable Key Scott MD Unavailable Unavailable Key Scott MD Unavailable Unavailable Key Scott MD Unavailable Unavailable Zack, M Samina ADMINISTRATIVE SUPPORT TECHNICIAN Unavailable Unavailable Zack, M Samina ADMINISTRATIVE SUPPORT TECHNICIAN Unavailable Unavailable Zack, M Samina ADMINISTRATIVE SUPPORT TECHNICIAN Unavailable Unavailable Zack, M Samina ADMINISTRATIVE SUPPORT TECHNICIAN Unavailable Unavailable Zack, M Samina ADMINISTRATIVE SUPPORT TECHNICIAN Unavailable Unavailable Zack, M Samina ADMINISTRATIVE SUPPORT TECHNICIAN Unavailable Unavailable Zack, M Samina ADMINISTRATIVE SUPPORT TECHNICIAN Unavailable Unavailable Zack, M Samina ADMINISTRATIVE SUPPORT TECHNICIAN Unavailable Unavailable Zack, M Samina ADMINISTRATIVE SUPPORT TECHNICIAN Unavailable Unavailable Zack, M Samina ADMINISTRATIVE SUPPORT TECHNICIAN Unavailable Unavailable Zack, M Samina ADMINISTRATIVE SUPPORT TECHNICIAN Unavailable Unavailable Zack, M Samina ADMINISTRATIVE SUPPORT TECHNICIAN Unavailable Unavailable Zack, M Samina ADMINISTRATIVE SUPPORT TECHNICIAN Unavailable Unavailable Kostas PRAJAPATI Unavailable Unavailable KATHERINE REAVES MD Unavailable Unavailable KATHERINE REAVES MD Unavailable Unavailable KATHERINE REAVES MD Unavailable Unavailable JEAN PAULKATHERINE NEVES MD Unavailable Unavailable JEAN PAULKATHERINE NEVES MD Unavailable Unavailable JEAN PAULKATHERINE NEVES MD Unavailable Unavailable JEAN PAULKATHERINE NEVES MD Unavailable Unavailable JEAN PAULKATHERINE NEVES MD Unavailable Unavailable JEAN PAULKATHERINE NEVES MD Unavailable Unavailable KATHERINE REAVES MD Unavailable Unavailable JEAN PAULKATHERINE NEVES MD Unavailable Unavailable JEAN PAULKATHERINE NEVES MD Unavailable Unavailable JEAN PAULKATHERINE NEVES MD Unavailable Unavailable JEAN PAULKATHERINE NEVES MD Unavailable Unavailable JEAN PAULKATHERINE NEVES MD Unavailable Unavailable JEAN PAULKATHERINE NEVES MD Unavailable Unavailable JEAN PAULKATHERINE NEVES MD Unavailable Unavailable JEAN PAULKATHERINE NEVES MD Unavailable Unavailable JEAN PAULKATHERINE NEVES MD Unavailable Unavailable JEAN PAULKATHERINE Joy MD Unavailable Unavailable JEAN PAULKATHERINE Joy MD Unavailable Unavailable JEAN PAULKATHERINE Joy MD Unavailable Unavailable JEAN PAULKATHERINE NEVES MD Unavailable Unavailable JEAN PAULKATHERINE Joy MD Unavailable Unavailable JEAN PAUL, KATHERINE MD Unavailable Unavailable JEAN PAUL, KATHERINE MD Unavailable Unavailable JEAN PAUL, KATHERINE MD Unavailable Unavailable JEAN PAUL, KATHERINE MD Unavailable Unavailable JEAN PAUL, KATHERINE MD Unavailable Unavailable JEAN PAUL, KATHERINE MD Unavailable Unavailable JEAN PAUL, KATHERINE MD Unavailable Unavailable JEAN PAUL, KATHERINE MD Unavailable Unavailable JEAN PAUL, KATHERINE MD Unavailable Unavailable JEAN PAUL, KATHERINE MD Unavailable Unavailable JEAN PAUL, KATHERINE MD Unavailable Unavailable JEAN PAUL, KATHERINE MD Unavailable Unavailable JEAN PAUL, KATHERINE MD Unavailable Unavailable JEAN PAUL, KATHERINE MD Unavailable Unavailable JEAN PAUL, KATHERINE MD Unavailable Unavailable JEAN PAUL, KATHERINE MD Unavailable Unavailable JEAN PAUL, KATHERINE MD Unavailable Unavailable JEAN PAUL, KATHERINE MD Unavailable Unavailable JEAN PAUL, KATHERINE MD Unavailable Unavailable JEAN PAUL, KATHERINE MD Unavailable Unavailable JEAN PAUL, KATHERINE MD Unavailable Unavailable JEAN PAUL, KATHERINE MD Unavailable Unavailable JEAN PAUL, KATHERINE MD Unavailable Unavailable JEAN PAUL, KATHERINE MD Unavailable Unavailable JEAN PAUL, KATHERINE MD Unavailable Unavailable JEAN PAUL, AKTHERINE MD Unavailable Unavailable CLAYTON PARSONS MD Unavailable Unavailable CLAYTON PARSONS MD Unavailable Unavailable CLAYTON PARSONS MD Unavailable Unavailable CLAYTON PARSONS MD Unavailable Unavailable CLAYTON PARSONS MD Unavailable Unavailable CLAYTON PARSONS MD Unavailable Unavailable CLAYTON PARSONS MD Unavailable Unavailable CLAYTON PARSONS MD Unavailable Unavailable CLAYTON PARSONS MD Unavailable Unavailable CLAYTON PARSONS MD Unavailable Unavailable CLAYTON PARSONS MD Unavailable Unavailable CLAYTON PARSONS MD Unavailable Unavailable CLAYTON PARSONS MD Unavailable Unavailable CLAYTON PARSONS MD Unavailable Unavailable CLAYTON PARSONS MD Unavailable Unavailable Soto, M Yen ADMINISTRATIVE SUPPORT TECHNICIAN Unavailable Unavailable Soto, M Yen ADMINISTRATIVE SUPPORT TECHNICIAN Unavailable Unavailable Soto, M Yen ADMINISTRATIVE SUPPORT TECHNICIAN Unavailable Unavailable Soto, M Yen ADMINISTRATIVE SUPPORT TECHNICIAN Unavailable Unavailable Soto, M Yen ADMINISTRATIVE SUPPORT TECHNICIAN Unavailable Unavailable Soto, M Yen ADMINISTRATIVE SUPPORT TECHNICIAN Unavailable Unavailable Soto, M Yen ADMINISTRATIVE SUPPORT TECHNICIAN Unavailable Unavailable Soto, M Yen ADMINISTRATIVE SUPPORT TECHNICIAN Unavailable Unavailable Soto, M Yen ADMINISTRATIVE SUPPORT TECHNICIAN Unavailable Unavailable Soto, M Yen ADMINISTRATIVE SUPPORT TECHNICIAN Unavailable Unavailable Soto, M Yen ADMINISTRATIVE SUPPORT TECHNICIAN Unavailable Unavailable Soto, M Yen ADMINISTRATIVE SUPPORT TECHNICIAN Unavailable Unavailable Soto, M Yen ADMINISTRATIVE SUPPORT TECHNICIAN Unavailable Unavailable Soto, M Yen ADMINISTRATIVE SUPPORT TECHNICIAN Unavailable Unavailable Soto, M Yen ADMINISTRATIVE SUPPORT TECHNICIAN Unavailable Unavailable Soto, M Yen ADMINISTRATIVE SUPPORT TECHNICIAN Unavailable Unavailable Soto, M Yen ADMINISTRATIVE SUPPORT TECHNICIAN Unavailable Unavailable Soto, M Yen ADMINISTRATIVE SUPPORT TECHNICIAN Unavailable Unavailable Soto, M Yen ADMINISTRATIVE SUPPORT TECHNICIAN Unavailable Unavailable Soto, M Yen ADMINISTRATIVE SUPPORT TECHNICIAN Unavailable Unavailable Soto, M Yen ADMINISTRATIVE SUPPORT TECHNICIAN Unavailable Unavailable Soto, M Yen ADMINISTRATIVE SUPPORT TECHNICIAN Unavailable Unavailable Soto, M Yen ADMINISTRATIVE SUPPORT TECHNICIAN Unavailable Unavailable Soto, M Yen ADMINISTRATIVE SUPPORT TECHNICIAN Unavailable Unavailable Soto, M Yen ADMINISTRATIVE SUPPORT TECHNICIAN Unavailable Unavailable Soto, M Yen ADMINISTRATIVE SUPPORT TECHNICIAN Unavailable Unavailable Soto, M Yen ADMINISTRATIVE SUPPORT TECHNICIAN Unavailable Unavailable Soto, M Yen ADMINISTRATIVE SUPPORT TECHNICIAN Unavailable Unavailable Soto, M Yen ADMINISTRATIVE SUPPORT TECHNICIAN Unavailable Unavailable Soto, M Yen ADMINISTRATIVE SUPPORT TECHNICIAN Unavailable Unavailable Soto, M Yen ADMINISTRATIVE SUPPORT TECHNICIAN Unavailable Unavailable Soto, M Yen ADMINISTRATIVE SUPPORT TECHNICIAN Unavailable Unavailable Soto, M Yen ADMINISTRATIVE SUPPORT TECHNICIAN Unavailable Unavailable Soto, M Yen ADMINISTRATIVE SUPPORT TECHNICIAN Unavailable Unavailable Soto, M Yen ADMINISTRATIVE SUPPORT TECHNICIAN Unavailable Unavailable Soto, M Yen ADMINISTRATIVE SUPPORT TECHNICIAN Unavailable Unavailable Soto, M Yen ADMINISTRATIVE SUPPORT TECHNICIAN Unavailable Unavailable Soto, M Yen ADMINISTRATIVE SUPPORT TECHNICIAN Unavailable Unavailable Jose Shukla MD Unavailable Unavailable Catalina, Larry Unavailable Unavailable Catalina, Larry Unavailable Unavailable Catalina, Larry Unavailable Unavailable Catalina, Larry Unavailable Unavailable Catalina, Larry Unavailable Unavailable Ian, A Elaine TRAINING AND DEVELOPMENT MANAGER Unavailable Unavailable Ian, A Elaine TRAINING AND DEVELOPMENT MANAGER Unavailable Unavailable Ian, A Elaine TRAINING AND DEVELOPMENT MANAGER Unavailable Unavailable Ian, A Elaine TRAINING AND DEVELOPMENT MANAGER Unavailable Unavailable Ian, A Elaine TRAINING AND DEVELOPMENT MANAGER Unavailable Unavailable Ian, A Elaine TRAINING AND DEVELOPMENT MANAGER Unavailable Unavailable Ian, A Elaine TRAINING AND DEVELOPMENT MANAGER Unavailable Unavailable Ian, A Elaine TRAINING AND DEVELOPMENT MANAGER Unavailable Unavailable Ian, A Elaine TRAINING AND DEVELOPMENT MANAGER Unavailable Unavailable Ian, A Elaine TRAINING AND DEVELOPMENT MANAGER Unavailable Unavailable Ian, A Elaine TRAINING AND DEVELOPMENT MANAGER Unavailable Unavailable Ian, A Elaine TRAINING AND DEVELOPMENT MANAGER Unavailable Unavailable Ian, A Elaine TRAINING AND DEVELOPMENT MANAGER Unavailable Unavailable Ian, A Elaine TRAINING AND DEVELOPMENT MANAGER Unavailable Unavailable Ian, A Elaine TRAINING AND DEVELOPMENT MANAGER Unavailable Unavailable Ian, A Elaine TRAINING AND DEVELOPMENT MANAGER Unavailable Unavailable Ian, A Elaine TRAINING AND DEVELOPMENT MANAGER Unavailable Unavailable Ian, A Elaine TRAINING AND DEVELOPMENT MANAGER Unavailable Unavailable Ian, A Elaine TRAINING AND DEVELOPMENT MANAGER Unavailable Unavailable Ian, A Elaine TRAINING AND DEVELOPMENT MANAGER Unavailable Unavailable Ian, A Elaine TRAINING AND DEVELOPMENT MANAGER Unavailable Unavailable Ian, A Elaine TRAINING AND DEVELOPMENT MANAGER Unavailable Unavailable Ian, A Elaine TRAINING AND DEVELOPMENT MANAGER Unavailable Unavailable Ian, A Elaine TRAINING AND DEVELOPMENT MANAGER Unavailable Unavailable Ian, A Elaine TRAINING AND DEVELOPMENT MANAGER Unavailable Unavailable Ian, A Elaine TRAINING AND DEVELOPMENT MANAGER Unavailable Unavailable Ian, A Elaine TRAINING AND DEVELOPMENT MANAGER Unavailable Unavailable MOCK, L VON ADMINISTRATIVE SUPPORT TECHNICIAN Unavailable Unavailable MOCK, L VON ADMINISTRATIVE SUPPORT TECHNICIAN Unavailable Unavailable MOCK, L VON ADMINISTRATIVE SUPPORT TECHNICIAN Unavailable Unavailable MOCK, L VON ADMINISTRATIVE SUPPORT TECHNICIAN Unavailable Unavailable MOCK, L VON ADMINISTRATIVE SUPPORT TECHNICIAN Unavailable Unavailable MOCK, L VON ADMINISTRATIVE SUPPORT TECHNICIAN Unavailable Unavailable AMIDON, D TRIPP DO Unavailable Unavailable AMIDON, D TRIPP DO Unavailable Unavailable AMIDON, D TRIPP DO Unavailable Unavailable AMIDON, D TRIPP DO Unavailable Unavailable AMIDON, D TRIPP DO Unavailable Unavailable AMIDON, D TRIPP DO Unavailable Unavailable AMIDON, D TRIPP DO Unavailable Unavailable AMIDON, D TRIPP DO Unavailable Unavailable AMIDON, D TRIPP DO Unavailable Unavailable AMIDON, D TRIPP DO Unavailable Unavailable AMIDON, D TRIPP DO Unavailable Unavailable AMIDON, D TRIPP DO Unavailable Unavailable AMIDON, D TRIPP DO Unavailable Unavailable AMIDON, D TRIPP DO Unavailable Unavailable AMIDON, D TRIPP DO Unavailable Unavailable AMIDON, D TRIPP DO Unavailable Unavailable AMIDON, D TRIPP DO Unavailable Unavailable AMIDON, D TRIPP DO Unavailable Unavailable AMIDON, D TRIPP DO Unavailable Unavailable AMIDON, D TRIPP DO Unavailable Unavailable AMIDON, D TRIPP DO Unavailable Unavailable AMIDON, D TRIPP DO Unavailable Unavailable AMIDON, D TRIPP DO Unavailable Unavailable AMIDON, D TRIPP DO Unavailable Unavailable AMIDON, D TRIPP DO Unavailable Unavailable AMIDON, D TRIPP DO Unavailable Unavailable AMIDON, D TRIPP DO Unavailable Unavailable AMIDON, D TRIPP DO Unavailable Unavailable AMIDON, D TRIPP DO Unavailable Unavailable AMIDON, D TRIPP DO Unavailable Unavailable AMIDON, D TRIPP DO Unavailable Unavailable AMIDON, D TRIPP DO Unavailable Unavailable AMIDON, D TRIPP DO Unavailable Unavailable AMIDON, D TRIPP DO Unavailable Unavailable AMIDON, D TRIPP DO Unavailable Unavailable AMIDON, D TRIPP DO Unavailable Unavailable AMIDON, D TRIPP DO Unavailable Unavailable AMIDON, D TRIPP DO Unavailable Unavailable AMIDON, D TRIPP DO Unavailable Unavailable AMIDON, D TRIPP DO Unavailable Unavailable AMIDON, D TRIPP DO Unavailable Unavailable AMIDON, D TRIPP DO Unavailable Unavailable AMIDON, D TRIPP DO Unavailable Unavailable AMIDON, D TRIPP DO Unavailable Unavailable AMIDON, D TRIPP DO Unavailable Unavailable AMIDON, D TRIPP DO Unavailable Unavailable AMIDON, D TRIPP DO Unavailable Unavailable AMIDON, D TRIPP DO Unavailable Unavailable AMIDON, D TRIPP DO Unavailable Unavailable AMIDON, D TRIPP DO Unavailable Unavailable AMIDON, D TRIPP DO Unavailable Unavailable AMIDON, D TRIPP DO Unavailable Unavailable AMIDON, D TRIPP DO Unavailable Unavailable AMIDON, D TRIPP DO Unavailable Unavailable AMIDON, D TRIPP DO Unavailable Unavailable AMIDON, D TRIPP DO Unavailable Unavailable AMIDON, D TRIPP DO Unavailable Unavailable AMIDON, D TRIPP DO Unavailable Unavailable AMIDON, D TRIPP DO Unavailable Unavailable AMIDON, D TRIPP DO Unavailable Unavailable AMIDON, D TRIPP DO Unavailable Unavailable AMIDON, D TRIPP DO Unavailable Unavailable AMIDON, D TRIPP DO Unavailable Unavailable AMIDON, D TRIPP DO Unavailable Unavailable AMIDON, D TRIPP DO Unavailable Unavailable AMIDON, D TRIPP DO Unavailable Unavailable AMIDON, D TRIPP DO Unavailable Unavailable SUNG, CALHOUN DO Unavailable +011 SUNG, CALHOUN DO Unavailable +011 SUNG, CALHOUN DO Unavailable +011 SUNG, CALHOUN DO Unavailable +011 SUNG, CALHOUN DO Unavailable +011 SUNG, CALHOUN DO Unavailable +011 SUNG, CALHOUN DO Unavailable +011 SUNG, CALHOUN DO Unavailable +011 SUNG, CALHOUN DO Unavailable +011 SUNG, CALHOUN DO Unavailable +011 SUNG, CALHOUN DO Unavailable +011 SUNG, CALHOUN DO Unavailable +011 SUNG, CALHOUN DO Unavailable +011 Bunny Fernandez MD Unavailable Unavailable Bunny Fernandez MD Unavailable Unavailable Bunny Fernandez MD Unavailable Unavailable Bunny Fernandez MD Unavailable Unavailable Bunny Fernandez MD Unavailable Unavailable Bunny Fernandez MD Unavailable Unavailable Bunny Fernandez MD Unavailable Unavailable Bunny Fernandez MD Unavailable Unavailable Bunny Fernandez MD Unavailable Unavailable Bunny Fernandez MD Unavailable Unavailable Bunny Fernandez MD Unavailable Unavailable Bunny Fernandez MD Unavailable Unavailable Don, Renante MD Unavailable Unavailable Don, Renante MD Unavailable Unavailable Don, Renante MD Unavailable Unavailable Don, Renante MD Unavailable Unavailable Don, Renante MD Unavailable Unavailable Don, Renante MD Unavailable Unavailable Don, Renante MD Unavailable Unavailable Don, Renante MD Unavailable Unavailable Don, Renante MD Unavailable Unavailable Don, Renante MD Unavailable Unavailable Don, Renante MD Unavailable Unavailable Don, Renante MD Unavailable Unavailable Don, Renante MD Unavailable Unavailable Don, Renante MD Unavailable Unavailable Don, Renante MD Unavailable Unavailable Don, Renante MD Unavailable Unavailable Don, Renante MD Unavailable Unavailable Hamad, Dyllan MD Unavailable Unavailable Hamjordan Dyllan MD Unavailable Unavailable Hamjordan Dyllan MD Unavailable Unavailable Hamad Dyllan MD Unavailable Unavailable Hamad, Dyllan MD Unavailable Unavailable Hamad, Dyllan MD Unavailable Unavailable Hamad, Dyllan MD Unavailable Unavailable Hamad Dyllan MD Unavailable Unavailable Hamad Dyllan MD Unavailable Unavailable Hamad Dyllan MD Unavailable Unavailable Hamad Dyllan MD Unavailable Unavailable Hamad, Dyllan MD Unavailable Unavailable Hamad Dyllan MD Unavailable Unavailable Eron Zhong MD Unavailable Unavailable Eron Zhong MD Unavailable Unavailable Eron Zhong MD Unavailable Unavailable Eron Zhong MD Unavailable Unavailable Eron Zhong MD Unavailable Unavailable Eron Zhong MD Unavailable Unavailable Eron Zhogn MD Unavailable Unavailable Eron Zhong MD Unavailable Unavailable Eron Zhong MD Unavailable Unavailable Gil Kiser MD Unavailable Unavailable Tan Pulido MD Unavailable Unavailable Tan Pulido MD Unavailable Unavailable Tan Pulido MD Unavailable Unavailable Tan Pulido MD Unavailable Unavailable Tan Pulido MD Unavailable Unavailable Tan Pulido MD Unavailable Unavailable Tan Pulido MD Unavailable Unavailable Tan Pulido MD Unavailable Unavailable Tan Pulido MD Unavailable Unavailable Tan Pulido MD Unavailable Unavailable Tan Pulido MD Unavailable Unavailable Tan Pulido MD Unavailable Unavailable Tan Pulido MD Unavailable Unavailable Tan Pulido MD Unavailable Unavailable Tan Pulido MD Unavailable Unavailable Tan Pulido MD Unavailable Unavailable Tan Pulido MD Unavailable Unavailable Tan Pulido MD Unavailable Unavailable Tan Pulido MD Unavailable Unavailable Tan Pulido MD Unavailable Unavailable Tan Pulido MD Unavailable Unavailable Tan Pulido MD Unavailable Unavailable Tan Pulido MD Unavailable Unavailable Tan Pulido MD Unavailable Unavailable Elaine, Wajeeh MD Unavailable Unavailable Elaine, Wajeeh MD Unavailable Unavailable Elaine, Wajeeh MD Unavailable Unavailable Elaine, Wajeeh MD Unavailable Unavailable Elaine, Wajeeh MD Unavailable Unavailable Elaine, Wajeeh MD Unavailable Unavailable Elaine, Wajeeh MD Unavailable Unavailable Elaine, Wajeeh MD Unavailable Unavailable Elaine, Wajeeh MD Unavailable Unavailable Elaine, Wajeeh MD Unavailable Unavailable Elaine, Wajeeh MD Unavailable Unavailable Elaine, Wajeeh MD Unavailable Unavailable Elaine, Wajeeh MD Unavailable Unavailable Elaine, Wajeeh MD Unavailable Unavailable Elaine, Wajeeh MD Unavailable Unavailable Elaine, Wajeeh MD Unavailable Unavailable Elaine, Wajeeh MD Unavailable Unavailable Elaine, Wajeeh MD Unavailable Unavailable Elaine, Wajeeh MD Unavailable Unavailable Elaine Sosa TRAINING AND DEVELOPMENT MANAGER TRAINING AND DEVELOPMENT MANAGER Unavailable Unavailable Re-disclosure Warning The records that you are about to access may contain information from federally-assisted alcohol or drug abuse programs. If such information is present, then the following federally mandated warning applies: This information has been disclosed to you from records protected by federal confidentiality rules (42 CFR part 2). The federal rules prohibit you from making any further disclosure of this information unless further disclosure is expressly permitted by the written consent of the person to whom it pertains or as otherwise permitted by 42 CFR part 2. A general authorization for the release of medical or other information is NOT sufficient for this purpose. The Federal rules restrict any use of the information to criminally investigate or prosecute any alcohol or drug abuse patient.The records that you are about to access may contain highly sensitive health information, the redisclosure of which is protected by Article 27-F of the [facility] Public Health law. If you continue you may have access to information: Regarding HIV / AIDS; Provided by facilities licensed or operated by the [facility] Office of Mental Health; or Provided by the [facility] Office for People With Developmental Disabilities. If such information is present, then the following [facility] mandated warning applies: This information has been disclosed to you from confidential records which are protected by state law. State law prohibits you from making any further disclosure of this information without the specific written consent of the person to whom it pertains, or as otherwise permitted by law. Any unauthorized further disclosure in violation of state law may result in a fine or custodial sentence or both. A general authorization for the release of medical or other information is NOT sufficient authorization for further disc losure. Allergies and Adverse Reactions Type Description Substance Reaction Status Data Source(s ) SYSTEMIC NO ALLERGIES ON FILE NO ALLERGIES ON FILE [facility] Drug allergy ESCITALOPRAM OXALATE ESCITALOPRAM OXALATE [facility] oranges oranges [facility] Drug allergy [facility]ion [facility] cephalexin [facility]exin [facility] l[facility] Latex, Natural Rubber Latex, Natural Rubber [facility] Drug allergy Fish Containing Products Fish Containing Products [facility] Drug allergy Sulfa (Sulfonamide Antibiotics) Sulfa (Sulfonamide Ant ibiotics) [facility] Drug allergy NSAIDS (Non-Steroidal Anti-Inflamma NSAI DS (Non-Steroidal Anti-Inflamma [facility] Miscellaneous allergy Latex Latex [facility] ([facility]) Drug allergy Sulfa Antibiotics Sulfa Antibiotics [facility] ([facility]) Drug allergy Lunesta Lunesta [facility] Drug allergy Omeprazole Omeprazole [facility]) Drug allergy Metoclopramide Metoclopramide [facility] ([facility]) Drug allergy Lisinopril Lisinopril [facility] ([facility]) Drug allergy Levofloxacin Levofloxacin [facility] Drug allergy Erythromycin Erythromycin [facility] ([facility]) Drug allergy Cephalexin Cephalexin [facility] ([facility]) Drug allergy Bupropion Bupropion [facility] ([facility]) Drug allergy Azithromycin Azithromycin [facility] ([facility]) To Be Determined To Be Determined PC C ([facility]) Family History Family Member Name Family Member Gender Family Member Status Date o f Status Description Data Source(s) Unknown Condition [facility] Unknown Condition [facility] Unknown [facility] Unknown Condition [facility] Unknown Condition [facility] Encounters Encounter Providers Location Date Indications Data Source(s ) Outpatient Attender: Yen Soto NP 12/26/2020 12:00:00 A M [facility] SPECIMEN Attender: TRIPP NGUYENeferrer: TRIPP MILES DO [id number] 11/21/2020 05:06:00 PM EST - 11/21/2020 11:59:00 PM [facility] Patient discharged. SPECIMEN Attender: TRIPP Mauroerrer: TRIPP MILES DO [id number] 11/14/2020 06:11:00 PM EST - 11/14/2020 11:59:00 PM [facility] Patient discharged. SPECIMEN Attender: TRIPP NGUYENeferrer: TRIPP MILES [id number] 11/07/2020 05:16:00 AM EST - 11/07/2020 11:59:00 PM [facility] Patient discharged. SPECIMEN Attender: VON MOCK NPReferrer: VON FIGUEROA ADMINISTRATIVE SUPPORT TECHNICIAN 2E-EEH 10/26/2020 10:53:00 AM EST - 10/26/2020 11:59:00 PM [facility] Patient discharged. SPECIMEN Attender: TRIPP Mauroerrer: TRIPP EDY MILES 2E-HL 10/24/2020 05:17:00 PM EST - 10/24/2020 11:59:00 PM [facility] Patient discharged. Outpatient Attender: Bunny Fernandez MD 11/2019 08:25:00 AM EST - 11/15/2020 11:59:00 PM EST [facility] covid Patient discharged. Outpatient Attender: Bunny Fernandez MD 10/09/2020 11:42:0 0 AM EST [facility] covid Outpatient Attender: Bunny Fernandez MD 10/05/2020 12:00:0 0 AM EST [facility] covid Outpatient Attender: Bunny Fernandez MD 09/28/2020 12:00:0 0 AM EST [facility] COVID Outpatient Attender: Bunny Fernandez MD 09/21/2020 02:36:0 0 PM EST [facility] covid Outpatient Attender: Bunny Fernandez MD 09/14/2020 12:00:0 0 AM EDT [facility] covid Outpatient Attender: Bunny Fernandez MD 09/10/2020 11:25:0 0 AM EDT [facility] covid Outpatient Attender: Bunny Fernandez MD 07:00:00 AM EDT - 08/15/2020 11:59:00 PM EDT [facility] Patient discharged. Recurring Patient Referrer: Yen Soto NP 08/02/2020 08: 52:44 AM EDT [facility] Recurring Patient Referrer: Yen Soto NP 08/02/2020 08: 52:18 AM EDT [facility] Outpatient Attender: Yen Soto NP [id number] 07/26/2020 12:0 0:00 AM EDT Other organ or system involvement in systemic lupus erythematosus [facility] Other organ or system involvement in sys temic lupus erythematosus Outpatient Attender: Eron Zhong MDReferrer: [facility] COVID 19 null 07/17/2020 03:21:00 PM EDT resident covid screen /[facility] resident covid screen /[facility] Attender: Larry Arnold 0 07:50:00 PM EDT - 06/21/2020 12:34:00 AM EDT [facility] Patient discharged. Outpatient Attender: Bunny Fernandez MD 01/2020 12:00:00 AM EDT - 2020 11:59:00 PM EDT [facility] Patient discharged. Outpatient Attender: Bunny Fernandez MD 07:35:00 AM EDT - 06/15/2020 11:59:00 PM EDT [facility] Patient discharged. Inpatient Attender: Bunny Fernandez MD 04:00:00 PM EDT - 10/17/2020 12:00:00 PM EST [facility] ([facility]) Patient discharged. Outpatient Attender: Justin Bone SR 06/07/2020 11:10:00 P M EDT Mh Eval [facility] Mh Eval Outpatient Attender: Brendan Meneses mitter: Brendan Kiser MDConsultant: Brendan Kiser MD 06/07/2020 09:10:00 PM EDT Depression, Suicidal Ideation [facility] Depression, Suicidal Ideation Outpatient Attender: Brendan Meneses mitter: Brendan Kiser MDConsultant: Brendan Kiser MD 06/07/2020 09:10:00 PM EDT Depression, Suicidal Ideation [facility] Depression, Suicidal Ideation Outpatient Attender: Brendan Meneses mitter: Brendan Kiser MDConsultant: Brendan Kiser MD 06/07/2020 09:10:00 PM EDT Depression, Suicidal Ideation [facility] Depression, Suicidal Ideation Inpatient Attender: Brendan Flores tender: Larry ArnoldAdmitter: Brendan Kiser MD 06/07/2020 09:10:00 PM EDT - 06/12/2020 03:20:00 PM EDT Depression, Suicidal Ideation [facility] Depression, Suicidal Ideation Patient discharged. Outpatient Attender: Brendan Meneses mitter: Brendan Kiser MDConsultant: Brendan Kiser MD 06/07/2020 09:10:00 PM EDT Depression, Suicidal Ideation [facility] Depression, Suicidal Ideation Outpatient Attender: Jose Marte ter: Brendan Kiser MDConsultant: Brendan Kiser MD 06/07/2020 09:10:00 PM EDT Depression, Suicidal Ideation [facility] Depression, Suicidal Ideation Outpatient Attender: Jose Marte ter: Brendan Kiser MDConsultant: Brendan Kiser MD 06/07/2020 09:10:00 PM EDT Depression, Suicidal Ideation [facility] Depression, Suicidal Ideation Outpatient Attender: RADHA JIN 05/23/2020 04:33:00 P M EDT [facility] Emergency Attender: Larry Arnold 0 02:21:00 AM EDT - 05/09/2020 08:45:00 AM EDT Pain Managment [facility] Pain Managment Patient discharged. 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 Outpatient Attender: Elaine GARCIA FP 04/03/2020 09:0 1:01 AM EDT [facility] Inpatient Attender: Bunny Fernandez MD 03:10:00 PM EDT - 06/07/2020 08:00:00 PM EDT [facility] ([facility]) Patient discharged. Outpatient Attender: Tan Meneses mitter: Tan Pulido MDConsultant: Tan Pulido MD 03/28/2020 03:07:00 PM EDT Intractable Headache , R/O COVID [facility] Intractable Headache, R/O COVID Inpatient Attender: Samina Dixon NPSkip tender: Sandee Grullon MDAttender: Tan Pulido MDAttender: Mirtha Henry MDAdmitter: Tan Pulido MD 03/28/2020 02:08:00 PM EDT - 04/02/2020 02:55:00 PM EDT Intractable Headache, R/O COVID [facility] Intractable Headache, R/O COVID Patient discharged. Outpatient Attender: Sandee Meneses mitter: Tan Pulido MDConsultant: Samina Dixon NP 03/28/2020 02:08:00 PM EDT Intractable Headache , R/O COVID [facility] Intractable Headache, R/O COVID Outpatient Attender: Samina Chaney mitter: Tan Pulido MDConsultant: Samina Dixon NP 03/28/2020 02:08:00 PM EDT Intractable Headache , R/O COVID [facility] Intractable Headache, R/O COVID Outpatient Attender: Samina Chaney mitter: Tan Pulido MDConsultant: Samina Dixon NP 03/28/2020 02:08:00 PM EDT Intractable Headache , R/O COVID [facility] Intractable Headache, R/O COVID Outpatient Attender: Samina Chaney mitter: Tanelder Pulido MDConsultant: Samina Dixon NP 03/28/2020 02:08:00 PM EDT Intractable Headache , R/O COVID [facility] Intractable Headache, R/O COVID Outpatient Attender: Bunny Fernandez MD 09/2020 12:00:00 AM EDT - 04/15/2020 11:59:00 PM EDT [facility] Patient discharged. [facility] [address] [address] 03/22/2020 12:00:00 AM EDT [id number] ([facility]) Outpatient Attender: Bunny Fernandez MD 12:00:00 AM EST - 01/14/2020 11:59:00 PM EST lab [facility] Patient discharged. Outpatient Attender: RADHA JIN 12/13/2019 03:40:00 P M [facility] Outpatient Attender: Bunny Fernandez MD 12:00:00 AM EST - 12/16/2019 11:59:00 PM EST [facility] Patient discharged. Outpatient Attender: RADHA JIN 11/14/2019 09:01:14 P M [facility] Outpatient Attender: Bunny Fernandez MD 08:40:00 AM EST - 11/15/2019 11:59:00 PM EST lab [facility] Patient discharged. Outpatient Attender: RADHA JIN 11/04/2019 08:03:34 P M [facility] Outpatient Attender: Elaine JIN 10/28/2019 10:0 3:00 AM [facility] Outpatient Attender: Yen Soto NP 10/24/2019 12:00:00 A M [facility] Outpatient Attender: Elaine JIN 10/15/2019 03:1 4:59 PM [facility] Outpatient Attender: Bunny Fernandez MD 06:43:00 AM EST - 10/15/2019 11:59:00 PM EST [facility] Patient discharged. Inpatient Attender: Bunny Fernandez MD 03:10:00 PM EST - 03/28/2020 01:51:00 PM EDT [facility] ([facility]) Patient discharged. Inpatient Attender: VIOLA Triplett DAdmitter: MT ROSENBAUM MDConsultant: SKYLAR CUETO MD 10/04/2019 10:20:57 AM EST [facility] Inpatient Attender: VIOLA Triplett DAdmitter: MT ROSENBAUM MDConsultant: SKYLAR CUETO MD 10/04/2019 10:20:52 AM EST [facility] Inpatient Attender: VIOLA Triplett DAdmitter: MT ROSENBAUM MDConsultant: SKYLAR CUETO MD 10/04/2019 08:49:44 AM EST [facility] Inpatient Attender: VIOLA Triplett DAdmitter: MT ROSENBAUM MDConsultant: SKYLAR CUETO MD 10/04/2019 06:53:38 AM EST [facility] Inpatient Attender: VIOLA Triplett DAdmitter: MT ROSENBAUM MDConsultant: SKYLAR CUETO MD 10/04/2019 04:46:59 AM EST [facility] Inpatient Attender: VIOLA Triplett DAdmitter: KATHERINE REAVES MDConsultant: SKYLAR CUETO MD 10/04/2019 03:52:28 AM EST [facility] Inpatient Attender: VIOLA Triplett DAdmitter: KATHERINE REAVES MDConsultant: SKYLAR CUETO MD 10/03/2019 08:24:30 PM EST Lab [facility] [facility] Attender: VIOLA Duquemitter: KATHERINE REAVES MDConsultant: SKYLAR CUETO MD 10/03/2019 05:25:15 PM EST [facility]: VIOLA Triplett DAdmitter: KATHERINE REAVES MDConsultant: SKYLAR CUETO MD 10/03/2019 12:57:06 PM EST [facility]ender: VIOLA Triplett DAdmitter: KATHERINE REAVES MDConsultant: SKYLAR CUETO MD 10/03/2019 07:56:01 AM EST [facility]: VIOLA Triplett DAdmitter: KATHERINE REAVES MDConsultant: SKYLAR CUETO MD 10/03/2019 06:56:40 AM EST [facility]: VIOLA Triplett DAdmitter: KATHERINE REAVES MDConsultant: SKYLAR CUETO MD 10/03/2019 06:30:12 AM EST [facility]: VIOLA Triplett DAdmitter: KATHERINE REAVES MDConsultant: SKYLAR CUETO MD 10/03/2019 04:24:26 AM EST [facility]: VIOLA Triplett DAdmitter: KATHERINE REAVES MDConsultant: SKYLAR CUETO MD 10/02/2019 11:59:51 PM EST [facility]: VIOLA Triplett DAdmitter: KATHERINE REAVES MDConsultant: SKYLAR CUETO MD 10/02/2019 07:55:06 PM EST [facility]: VIOLA Triplett DAdmitter: KATHERINE REAVES MDConsultant: SKYLAR CUETO MD 10/02/2019 04:43:32 PM EST [facility]: VIOLA Triplett DAdmitter: KATHERINE REAVES MDConsultant: SKYLAR CUETO MD 10/02/2019 11:48:32 AM EST [facility]: VIOLA Triplett DAdmitter: KATHERINE REAVES MDConsultant: SKYLAR CUETO MD 10/02/2019 10:36:33 AM EST [facility]: VIOLA Triplett DAdmitter: KATHERINE REAVES MDConsultant: SKYLAR CUETO MD 10/02/2019 08:18:53 AM EST [facility]: VIOLA Triplett DAdmitter: KATHERINE REAVES MDConsultant: SKYLAR CUETO MD 10/02/2019 06:25:35 AM EST [facility]: VIOLA DANIELA Triplett DAdmitter: KATHERINE REAVES MDConsultant: SKYLAR CUETO MD 10/02/2019 05:26:08 AM EST [facility] Attender: Dyllan Moorejordan MDAtt live: MT ROSENBAUM MDAttender: KATHERINE REAVES MDAttender: Teodoro Roland MDAttender: SULMA PRAJAPATIAttender: VIOLA SUAREZ MDAttender: Pari Alfaro MDAdmitter: VIOLA SUAREZ MDConsultant: SKYLAR CUETO MD [id number] 09/23/2019 01:50:35 PM EST - 10/05/2019 02:39:[address] [facility] Patient discharged. Outpatient 09/23/2019 10:09:00 AM EST severe ma lnutrition, intubated [facility] severe malnutrition, intubated Inpatient Attender: LJ RODRIGUEZ DOAttender : LJ RODRIGUEZ DOAttender: SHARI RAMOS MDAttender: EMILY PATRICK MDAttender: EMIYL PATRICK MDAdmitter: EMILY PATRICK MD ER-ICU 09/08/2019 11:21:00 PM EDT - 09/23/2019 12:30:00 PM EST [facility] Patient discharged. Emergency Attender: JOSUE Harriserrer: Shira Sosa [facility] EMERGENCY ROOM-ER 09/08/2019 05:20:00 PM EDT - 09/08/2019 10:36:00 PM [facility] Patient discharged. Emergency Attender: MARYA Harriserrer: Elaine Sosa [facility] 08/29/2019 04:30:00 PM EDT - 08/29/2019 06:21:00 PM [facility] Patient discharged. Outpatient Attender: CLAYTON PARSONS MD [email or web address] 12/03/2016 12:52:0 0 PM EST [facility]. Functional Status Medications Medication Brand Name Start Date Product Form Dose Route Admi nistrative Instructions Pharmacy Instructions Status Indications Reaction Description Data Source(s) Hydroxychloroquine Sulfate 200 MG Oral T ablet Hydroxychloroquine Sulfate 200 MG Oral Tablet (PLAQUENIL) Hydroxychloroquine Sulfate 200 MG Oral T ablet (PLAQUENIL) 07/26/2020 12:00:00 AM EDT 200 mg Oral a ctive Long-term use of PlaquenilOther systemic lupus erythematosus with other organ involvementSjogren's syndrome with keratoconjunctivitis sicca Take 1 tablet by mouth Two Times Daily [facility] Long-term use of Plaquenil Other systemic lupus erythematosus with other organ involvement Sjogren's syndrome with keratoconjunctiv itis sicca Naproxen 500 MG Oral Tablet Naproxen 500 MG Oral Table t (NAPROSYN) Naproxen 500 MG Oral Tablet (NAPROSYN) 07/26/2020 12:00:00 AM EDT 500 mg Oral active Polyarthralgia Take 1 tablet by mouth Two times daily w ith meals [facility] Polyarthralgia Pilocarpine Hydrochloride 5 MG Oral Tabl et Pilocarpine HCl 5 MG Oral Tablet (SALAGEN) Pilocarpine HCl 5 MG Oral Tablet (SALAGEN) 07/26/2020 12:00: 00 AM EDT 5 mg Oral active High risk medication use Take 1 tablet by mouth Three times daily [facility] High risk medication use Folic Acid 1 MG Oral Tablet Folic Acid 1 MG Oral Table t (FOLVITE) Folic Acid 1 MG Oral Tablet (FOLVITE) 07/26/2020 12:00:00 AM EDT active High risk medication use TAKE TWO TABLETS BY MOUTH @8AM [facility] High risk medication use Methotrexate 2.5 MG Oral Tablet Methotrexate 2.5 MG Oral Tab let 07/26/2020 12:00:00 AM EDT 7.5 mg Oral active Take 3 tablets by mouth every 7 (seven) days [facility] gabapentin 400 MG Oral Capsule Gabapentin 400 MG Oral Capsule (NEURONTIN) Gabapentin 400 MG Oral Capsule (NEURONTIN) 07/26/2020 12:00:00 AM EDT 400 mg Oral active Take 1 capsule by mo ut Three times daily [facility] Doxycycline Monohydrate 100 MG Oral Tablet Doxycycline Monoh ydrate 04/29/2020 12:00:00 AM EDT ORAL active M EDERIN ([employer] [facility] [place]) Saccharomyces boulardii 250 MG Oral Capsule Saccharomy bjorn Boulardii Saccharomyces Boulardii 04/02/2020 12:17:03 PM EDT CAPSULE 250 MG ORAL active [facility] Saccharomyces boulardii 250 MG Oral Capsule Saccharomy bjorn Boulardii Saccharomyces Boulardii 04/02/2020 12:17:03 PM EDT CAPSULE 250 MG ORAL active [facility] Saccharomyces boulardii 250 MG Oral Capsule Saccharomy bjorn Boulardii Saccharomyces Boulardii 04/02/2020 12:17:03 PM EDT CAPSULE 250 MG ORAL active [facility] Acetaminophen 325 MG / Hydrocodone Enrike trate 5 MG Oral Tablet Hydrocodone-Acetaminophen Hydrocodone-Acetaminophen 04/02/2020 12:17:03 PM EDT TABLET 1 TAB ORAL active [facility] Amoxicillin 875 MG / Clavulanate 125 MG Oral Tablet Am oxicillin-Pot Clavulanate Amoxicillin-Pot Clavulanate 04/02/2020 12:17:03 PM EDT TABLET 1 TAB ORAL active [facility] Acetaminophen 325 MG / Hydrocodone Enrike trate 5 MG Oral Tablet Hydrocodone-Acetaminophen Hydrocodone-Acetaminophen 04/02/2020 12:17:03 PM EDT TABLET 1 TAB ORAL active [facility] Amoxicillin 875 MG / Clavulanate 125 MG Oral Tablet Am oxicillin-Pot Clavulanate Amoxicillin-Pot Clavulanate 04/02/2020 12:17:03 PM EDT TABLET 1 TAB ORAL active [facility] Saccharomyces boulardii 250 MG Oral Capsule Saccharomy bjorn Boulardii Saccharomyces Boulardii 04/02/2020 12:17:03 PM EDT CAPSULE 250 MG ORAL active [facility] Acetaminophen 325 MG / Hydrocodone Enrike trate 5 MG Oral Tablet Hydrocodone-Acetaminophen Hydrocodone-Acetaminophen 04/02/2020 12:17:03 PM EDT TABLET 1 TAB ORAL active [facility] Amoxicillin 875 MG / Clavulanate 125 MG Oral Tablet Am oxicillin-Pot Clavulanate Amoxicillin-Pot Clavulanate 04/02/2020 12:17:03 PM EDT TABLET 1 TAB ORAL active [facility] Amoxicillin 875 MG / Clavulanate 125 MG Oral Tablet Am oxicillin-Pot Clavulanate Amoxicillin-Pot Clavulanate 04/02/2020 12:17:03 PM EDT TABLET 1 TAB ORAL active [facility] Acetaminophen 325 MG / Hydrocodone Enrike trate 5 MG Oral Tablet Hydrocodone-Acetaminophen Hydrocodone-Acetaminophen 04/02/2020 12:17:03 PM EDT TABLET 1 TAB ORAL active [facility] pantoprazole 40 MG Delayed Release Oral Tablet [Proton ix] Pantoprazole Pantoprazole 03/28/2020 10:02:59 AM EDT UNASSIGNED 40 MG ORAL activ e [facility] 120 ACTUAT Budesonide 0.16 MG/ACTUAT / f ormoterol fumarate 0.0045 MG/ACTUAT Metered Dose Inhaler Budesonide-Formoterol Budesonide-Formoterol 03/28/2020 10:02:59 AM EDT UNASSIGNED 2 PUFF INHALATION active [facility] Ecrgwztgkdsy-Xds-Qejg-Fa-Vit K 03/28/2020 10:02:59 AM EDT TABLET 1 TAB ORAL active [facility] gabapentin 100 MG Oral Capsule [Neurontin] Gabapentin Gabape ntin 03/28/2020 10:02:59 AM EDT CAPSULE 200 MG ORAL active [facility] Methotrexate 7.5 MG Oral Tablet Methotrexate Sodium Methotre xate Sodium 03/28/2020 10:02:59 AM EDT TABLET 7.5 MG ORAL active [facility] Bisacodyl 10 MG Rectal Suppository Bisacodyl 03/28/2020 10 :02:59 AM EDT UNASSIGNED 10 MG RECTAL [facility] Sumatriptan 50 MG Oral Tablet [Imitrex] Sumatriptan Lind ccinate Sumatriptan Succinate 03/28/2020 10:02:59 AM EDT TABLET 0 Route active [facility] duloxetine 60 MG Delayed Release Oral Capsule Duloxetine Dul oxetine 03/28/2020 10:02:59 AM EDT UNASSIGNED 60 MG ORAL active [facility] Tmpxemhqfcyx-Qpf-Dhdr-Fa-Vit K 03/28/2020 10:02:59 AM EDT TABLET 1 TAB ORAL active [facility] sennosides, HALF-WAY 8.6 MG Oral Tablet Sennosides Sennosides 03/28/2020 10:02:59 AM EDT TABLET 17.2 MG ORAL [facility] Budesonide 0.16 MG/ACTUAT / f ormoterol fumarate 0.0045 MG/ACTUAT Metered Dose Inhaler Budesonide-Formoterol Budesonide-Formoterol 03/28/2020 10:02:59 AM EDT UNASSIGNED 2 PUFF INHALATION [facility] Levetiracetam 500 MG Oral Tablet [Keppra] Levetiracetam 03/28/2020 10:02:59 AM EDT TABLET 500 MG ORAL active [facility] Hydroxychloroquine Sulfate 200 MG Oral Tablet Hydroxychloroq uine 03/28/2020 10:02:59 AM EDT TABLET 200 MG ORAL active [facility] buspirone hydrochloride 10 MG Oral Tablet Buspirone Buspiron e 03/28/2020 10:02:59 AM EDT TABLET 10 MG ORAL active [facility] Hydroxychloroquine Sulfate 200 MG Oral Tablet Hydroxychloroq uine 03/28/2020 10:02:59 AM EDT TABLET 200 MG ORAL active [facility] Docusate Sodium 100 MG Oral Capsule Docusate Sodium 03/28/2020 1 0:02:59 AM EDT CAPSULE 100 MG ORAL active [facility] Calcium Carbonate 1250 MG / Cholecalcife rol 0.01 MG Oral Tablet Calcium Carbonate-Vitamin D3 Calcium Carbonate-Vitamin D3 03/28/2020 10:02:59 AM EDT TABLET 1 TAB ORAL active [facility] Calcium Carbonate 1250 MG / Cholecalcife rol 0.01 MG Oral Tablet Calcium Carbonate-Vitamin D3 Calcium Carbonate-Vitamin D3 03/28/2020 10:02:59 AM EDT TABLET 1 TAB ORAL active [facility] Sumatriptan 50 MG Oral Tablet [Imitrex] Sumatriptan Lind ccinate Sumatriptan Succinate 03/28/2020 10:02:59 AM EDT TABLET 0 Route active [facility] Levetiracetam 500 MG Oral Tablet [Keppra] Levetiracetam 03/28/2020 10:02:59 AM EDT TABLET 500 MG ORAL active [facility] Trazodone Hydrochloride 50 MG Oral Tablet Trazodone 2019 10:02:59 AM EDT TABLET 50 MG ORAL active [facility] duloxetine 60 MG Delayed Release Oral Capsule Duloxetine Dul oxetine 03/28/2020 10:02:59 AM EDT UNASSIGNED 60 MG ORAL [facility] Escitalopram 5 MG Oral Tablet Escitalopram Oxalate Escitalop [place] Oxalate 03/28/2020 10:02:59 AM EDT TABLET 5 MG ORAL active [facility] sennosides, HALF-WAY 8.6 MG Oral Tablet Sennosides Sennosides 03/28/2020 10:02:59 AM EDT TABLET 17.2 MG ORAL [facility] Docusate Sodium 100 MG Oral Capsule Docusate Sodium 03/28/2020 1 0:02:59 AM EDT CAPSULE 100 MG ORAL active [facility] Hydroxychloroquine Sulfate 200 MG Oral Tablet Hydroxychloroq uine 03/28/2020 10:02:59 AM EDT TABLET 200 MG ORAL active [facility] Docusate Sodium 100 MG Oral Capsule Docusate Sodium 03/28/2020 1 0:02:59 AM EDT CAPSULE 100 MG ORAL active [facility] Sumatriptan 50 MG Oral Tablet [Imitrex] Sumatriptan Lind ccinate Sumatriptan Succinate 03/28/2020 10:02:59 AM EDT TABLET 0 Route active [facility] tiotropium 0.018 MG/ACTUAT Inhalant Powder Tiotropium [place] Tiotropium [place] 03/28/2020 10:02:59 AM EDT UNASSIGNED 1 CAP INHALATION active [facility] Bisacodyl 10 MG Rectal Suppository Bisacodyl 03/28/2020 10 :02:59 AM EDT UNASSIGNED 10 MG RECTAL active [facility] buspirone hydrochloride 10 MG Oral Tablet Buspirone Buspiron e 03/28/2020 10:02:59 AM EDT TABLET 10 MG ORAL active [facility] Trazodone Hydrochloride 50 MG Oral Tablet Trazodone 2019 10:02:59 AM EDT TABLET 50 MG ORAL active [facility] duloxetine 60 MG Delayed Release Oral Capsule Duloxetine Dul oxetine 03/28/2020 10:02:59 AM EDT UNASSIGNED 60 MG ORAL active [facility] Trazodone Hydrochloride 50 MG Oral Tablet Trazodone 2019 10:02:59 AM EDT TABLET 50 MG ORAL active [facility] Escitalopram 5 MG Oral Tablet Escitalopram Oxalate Escitalop [place] Oxalate 03/28/2020 10:02:59 AM EDT TABLET 5 MG ORAL active [facility] Metoprolol Tartrate 50 MG Oral Tablet Metoprolol Tartrate 10:02:59 AM EDT TABLET 50 MG ORAL active [facility] tiotropium 0.018 MG/ACTUAT Inhalant Powder Tiotropium [place] Tiotropium [place] 03/28/2020 10:02:59 AM EDT UNASSIGNED 1 CAP INHALATION active [facility] buspirone hydrochloride 10 MG Oral Tablet Buspirone Buspiron e 03/28/2020 10:02:59 AM EDT TABLET 10 MG ORAL active [facility] [employer] [facility] Folic Acid 1 MG Oral Tablet Folic Acid 03/28/2020 10:02:59 AM EDT TAB LET 1 MG ORAL [facility] Bisacodyl 10 MG Rectal Suppository Bisacodyl 03/28/2020 10 :02:59 AM EDT UNASSIGNED 10 MG RECTAL active [facility] Cerebrex Docusate Sodium 100 MG Oral Capsule Docusate Sodium 03/28/2020 1 0:02:59 AM EDT CAPSULE 100 MG ORAL active [facility] Folic Acid 1 MG Oral Tablet Folic Acid 03/28/2020 10:02:59 AM EDT TAB LET 1 MG ORAL [facility] Levetiracetam 500 MG Oral Tablet [Keppra] Levetiracetam 03/28/2020 10:02:59 AM EDT TABLET 500 MG ORAL active [facility] Sumatriptan 50 MG Oral Tablet [Imitrex] Sumatriptan Lind ccinate Sumatriptan Succinate 03/28/2020 10:02:59 AM EDT TABLET 0 Route active [facility] Hydroxychloroquine Sulfate 200 MG Oral Tablet Hydroxychloroq uine 03/28/2020 10:02:59 AM EDT TABLET 200 MG ORAL active [facility] [employer] [facility] Docusate Sodium 100 MG Oral Capsule Docusate Sodium 03/28/2020 1 0:02:59 AM EDT CAPSULE 100 MG ORAL active [facility] Bisacodyl 10 MG Rectal Suppository Bisacodyl 03/28/2020 10 :02:59 AM EDT UNASSIGNED 10 MG RECTAL active [facility] Metoprolol Tartrate 50 MG Oral Tablet Metoprolol Tartrate 10:02:59 AM EDT TABLET 50 MG ORAL active [facility] 120 ACTUAT Budesonide 0.16 MG/ACTUAT / f ormoterol fumarate 0.0045 MG/ACTUAT Metered Dose Inhaler Budesonide-Formoterol Budesonide-Formoterol 03/28/2020 10:02:59 AM EDT UNASSIGNED 2 PUFF INHALATION active [facility] Sorbitol 700 MG/ML Rectal Solution Sorbitol 03/28/2020 10:02:59 AM EDT SOLUTION 30 ML ORAL active [facility] Sumatriptan 50 MG Oral Tablet [Imitrex] Sumatriptan Lind ccinate Sumatriptan Succinate 03/28/2020 10:02:59 AM EDT TABLET 0 Route active [facility] Calcium Carbonate 1250 MG / Cholecalcife rol 0.01 MG Oral Tablet Calcium Carbonate-Vitamin D3 Calcium Carbonate-Vitamin D3 03/28/2020 10:02:59 AM EDT TABLET 1 TAB ORAL active [facility] pantoprazole 40 MG Delayed Release Oral Tablet [Proton ix] Pantoprazole Pantoprazole 03/28/2020 10:02:59 AM EDT UNASSIGNED 40 MG ORAL activ e [facility] Coqbhasckujg-Lys-Cmmo-Fa-Vit K 03/28/2020 10:02:59 AM EDT TABLET 1 TAB ORAL active [facility] Escitalopram 5 MG Oral Tablet Escitalopram Oxalate Escitalop [place] Oxalate 03/28/2020 10:02:59 AM EDT TABLET 5 MG ORAL active [facility] gabapentin 100 MG Oral Capsule [Neurontin] Gabapentin Gabape ntin 03/28/2020 10:02:59 AM EDT CAPSULE 200 MG ORAL active [facility] sennosides, HALF-WAY 8.6 MG Oral Tablet Sennosides Sennosides 03/28/2020 10:02:59 AM EDT TABLET 17.2 MG ORAL active [facility] duloxetine 60 MG Delayed Release Oral Capsule Duloxetine Dul oxetine 03/28/2020 10:02:59 AM EDT UNASSIGNED 60 MG ORAL active [employer] sennosides, HALF-WAY 8.6 MG Oral Tablet Sennosides Sennosides 03/28/2020 10:02:59 AM EDT TABLET 17.2 MG ORAL active [facility] gabapentin 100 MG Oral Capsule [Neurontin] Gabapentin Gabape ntin 03/28/2020 10:02:59 AM EDT CAPSULE 200 MG ORAL active [facility] Levetiracetam 500 MG Oral Tablet [Keppra] Levetiracetam 03/28/2020 10:02:59 AM EDT TABLET 500 MG ORAL active [facility] Trazodone Hydrochloride 50 MG Oral Tablet Trazodone 2019 10:02:59 AM EDT TABLET 50 MG ORAL active [facility] tiotropium 0.018 MG/ACTUAT Inhalant Powder Tiotropium [place] Tiotropium [place] 03/28/2020 10:02:59 AM EDT UNASSIGNED 1 CAP INHALATION active [facility] Calcium Carbonate 1250 MG / Cholecalcife rol 0.01 MG Oral Tablet Calcium Carbonate-Vitamin D3 Calcium Carbonate-Vitamin D3 03/28/2020 10:02:59 AM EDT TABLET 1 TAB ORAL active [facility] duloxetine 60 MG Delayed Release Oral Capsule Duloxetine Dul oxetine 03/28/2020 10:02:59 AM EDT UNASSIGNED 60 MG ORAL active [facility] Trazodone Hydrochloride 50 MG Oral Tablet Trazodone 2019 10:02:59 AM EDT TABLET 50 MG ORAL active [facility] 120 ACTUAT Budesonide 0.16 MG/ACTUAT / f ormoterol fumarate 0.0045 MG/ACTUAT Metered Dose Inhaler Budesonide-Formoterol Budesonide-Formoterol 03/28/2020 10:02:59 AM EDT UNASSIGNED 2 PUFF INHALATION active [facility] Thiamine 100 MG Oral Tablet Thiamine Hcl (Vitamin B1) Thiami ne Hcl (Vitamin B1) 03/28/2020 10:02:59 AM EDT TABLET 100 MG ORAL active [facility] Sorbitol 700 MG/ML Rectal Solution Sorbitol 03/28/2020 10:02:59 AM EDT SOLUTION 30 ML ORAL active [facility] pantoprazole 40 MG Delayed Release Oral Tablet [Proton ix] Pantoprazole Pantoprazole 03/28/2020 10:02:59 AM EDT UNASSIGNED 40 MG ORAL activ e [facility] tiotropium 0.018 MG/ACTUAT Inhalant Powder Tiotropium [place] Tiotropium [place] 03/28/2020 10:02:59 AM EDT UNASSIGNED 1 CAP INHALATION active [facility] Methotrexate 7.5 MG Oral Tablet Methotrexate Sodium Methotre xate Sodium 03/28/2020 10:02:59 AM EDT TABLET 7.5 MG ORAL active [facility] Metoprolol Tartrate 50 MG Oral Tablet Metoprolol Tartrate 10:02:59 AM EDT TABLET 50 MG ORAL active [facility] tiotropium 0.018 MG/ACTUAT Inhalant Powder Tiotropium [place] Tiotropium [place] 03/28/2020 10:02:59 AM EDT UNASSIGNED 1 CAP INHALATION active [facility] Folic Acid 1 MG Oral Tablet Folic Acid 03/28/2020 10:02:59 AM EDT TAB LET 1 MG ORAL active [facility] Thiamine 100 MG Oral Tablet Thiamine Hcl (Vitamin B1) Thiami ne Hcl (Vitamin B1) 03/28/2020 10:02:59 AM EDT TABLET 100 MG ORAL active [facility] Methotrexate 7.5 MG Oral Tablet Methotrexate Sodium Methotre xate Sodium 03/28/2020 10:02:59 AM EDT TABLET 7.5 MG ORAL active [facility] buspirone hydrochloride 10 MG Oral Tablet Buspirone Buspiron e 03/28/2020 10:02:59 AM EDT TABLET 10 MG ORAL active [facility] Thiamine 100 MG Oral Tablet Thiamine Hcl (Vitamin B1) Thiami ne Hcl (Vitamin B1) 03/28/2020 10:02:59 AM EDT TABLET 100 MG ORAL active [facility] Sorbitol 700 MG/ML Rectal Solution Sorbitol 03/28/2020 10:02:59 AM EDT SOLUTION 30 ML ORAL active [facility] buspirone hydrochloride 10 MG Oral Tablet Buspirone Buspiron e 03/28/2020 10:02:59 AM EDT TABLET 10 MG ORAL active [facility] Thiamine 100 MG Oral Tablet Thiamine Hcl (Vitamin B1) Thiami ne Hcl (Vitamin B1) 03/28/2020 10:02:59 AM EDT TABLET 100 MG ORAL active [facility] Escitalopram 5 MG Oral Tablet Escitalopram Oxalate Escitalop [place] Oxalate 03/28/2020 10:02:59 AM EDT TABLET 5 MG ORAL active [facility] Folic Acid 1 MG Oral Tablet Folic Acid 03/28/2020 10:02:59 AM EDT TAB LET 1 MG ORAL active [facility] Folic Acid 1 MG Oral Tablet Folic Acid 03/28/2020 10:02:59 AM EDT TAB LET 1 MG ORAL active [facility] pantoprazole 40 MG Delayed Release Oral Tablet [Proton ix] Pantoprazole Pantoprazole 03/28/2020 10:02:59 AM EDT UNASSIGNED 40 MG ORAL activ e [facility] gabapentin 100 MG Oral Capsule [Neurontin] Gabapentin Gabape ntin 03/28/2020 10:02:59 AM EDT CAPSULE 200 MG ORAL active [facility] Sorbitol 700 MG/ML Rectal Solution Sorbitol 03/28/2020 10:02:59 AM EDT SOLUTION 30 ML ORAL active [facility] Vafzajfzqxqj-Fyk-Xvvp-Fa-Vit K 03/28/2020 10:02:59 AM EDT TABLET 1 TAB ORAL active [facility] 120 ACTUAT Budesonide 0.16 MG/ACTUAT / f ormoterol fumarate 0.0045 MG/ACTUAT Metered Dose Inhaler Budesonide-Formoterol Budesonide-Formoterol 03/28/2020 10:02:59 AM EDT UNASSIGNED 2 PUFF INHALATION active [facility] gabapentin 100 MG Oral Capsule [Neurontin] Gabapentin Gabape ntin 03/28/2020 10:02:59 AM EDT CAPSULE 200 MG ORAL active [facility] Dfjpbgwrhjxe-Gje-Jwsk-Fa-Vit K 03/28/2020 10:02:59 AM EDT TABLET 1 TAB ORAL active [facility] Methotrexate 7.5 MG Oral Tablet Methotrexate Sodium Methotre xate Sodium 03/28/2020 10:02:59 AM EDT TABLET 7.5 MG ORAL active [facility] Metoprolol Tartrate 50 MG Oral Tablet Metoprolol Tartrate 10:02:59 AM EDT TABLET 50 MG ORAL active [facility] Sorbitol 700 MG/ML Rectal Solution Sorbitol 03/28/2020 10:02:59 AM EDT SOLUTION 30 ML ORAL active [facility] sennosides, HALF-WAY 8.6 MG Oral Tablet Sennosides Sennosides 03/28/2020 10:02:59 AM EDT TABLET 17.2 MG ORAL active [facility] Methotrexate 7.5 MG Oral Tablet Methotrexate Sodium Methotre xate Sodium 03/28/2020 10:02:59 AM EDT TABLET 7.5 MG ORAL active [facility] Escitalopram 5 MG Oral Tablet Escitalopram Oxalate Escitalop [place] Oxalate 03/28/2020 10:02:59 AM EDT TABLET 5 MG ORAL active [facility] pantoprazole 40 MG Delayed Release Oral Tablet [Proton ix] Pantoprazole Pantoprazole 03/28/2020 10:02:59 AM EDT UNASSIGNED 40 MG ORAL activ e [facility] Levetiracetam 500 MG Oral Tablet [Keppra] Levetiracetam 03/28/2020 10:02:59 AM EDT TABLET 500 MG ORAL active [facility] Hydroxychloroquine Sulfate 200 MG Oral Tablet Hydroxychloroq uine 03/28/2020 10:02:59 AM EDT TABLET 200 MG ORAL active [facility] Calcium Carbonate 1250 MG / Cholecalcife rol 0.01 MG Oral Tablet Calcium Carbonate-Vitamin D3 Calcium Carbonate-Vitamin D3 03/28/2020 10:02:59 AM EDT TABLET 1 TAB ORAL active [facility] Metoprolol Tartrate 50 MG Oral Tablet Metoprolol Tartrate 10:02:59 AM EDT TABLET 50 MG [facility]AL [facility] Bis[facility] MG Rectal Suppository Bisacodyl 03/28/2020 10 :02:59 AM EDT UNASSIGNED 10 MG RECTAL [facility] Thiamine 100 MG Oral Tablet Thiamine Hcl (Vitamin B1) Thiami ne Hcl (Vitamin B1) 03/28/2020 10:02:59 AM EDT TABLET 100 MG ORAL active [facility] Baclofen 5 MG Oral Tablet Baclofen 03/28/2020 10:01:16 AM EDT TABLET 5 MG ORAL active [facility] Baclofen 5 MG Oral Tablet Baclofen 03/28/2020 10:01:16 AM EDT TABLET 5 MG ORAL active [facility] Baclofen 5 MG Oral Tablet Baclofen 03/28/2020 10:01:16 AM EDT TABLET 5 MG ORAL active [facility] Baclofen 5 MG Oral Tablet Baclofen 03/28/2020 10:01:16 AM EDT TABLET 5 MG ORAL active [facility] Baclofen 5 MG Oral Tablet Baclofen 03/28/2020 10:01:16 AM EDT TABLET 5 MG ORAL active [facility] Albuterol Sulfate 03/28/2020 09:56:32 AM EDT UNASSIGNED 2 PUFF INHALATION active [facility] Albuterol Sulfate 03/28/2020 09:56:32 AM EDT UNASSIGNED 2 PUFF INHALATION active [facility] Albuterol Sulfate 03/28/2020 09:56:32 AM EDT UNASSIGNED 2 PUFF INHALATION active [facility] Albuterol Sulfate 03/28/2020 09:56:32 AM EDT UNASSIGNED 2 PUFF INHALATION active [facility] Albuterol Sulfate 03/28/2020 09:56:32 AM EDT UNASSIGNED 2 PUFF INHALATION active [facility] Acetaminophen 325 MG Oral Tablet Acetaminophen 03/28/2020 09:5 0:19 AM EDT TABLET 325 MG ORAL completed [facility] Acetaminophen 325 MG Oral Tablet Acetaminophen 03/28/2020 09:5 0:19 AM EDT TABLET 325 MG ORAL completed [facility] Acetaminophen 325 MG Oral Tablet Acetaminophen 03/28/2020 09:5 0:19 AM EDT TABLET 325 MG ORAL completed [facility] Acetaminophen 325 MG Oral Tablet Acetaminophen 03/28/2020 09:5 0:19 AM EDT TABLET 325 MG ORAL completed [facility] Acetaminophen 325 MG Oral Tablet Acetaminophen 03/28/2020 09:5 0:19 AM EDT TABLET 325 MG ORAL completed [facility] Acetaminophen 325 MG Oral Tablet [Tylenol] Acetaminophen 03/28/2020 09:42:28 AM EDT TABLET 650 MG ORAL active [facility] Acetaminophen 325 MG Oral Tablet [Tylenol] Acetaminophen 03/28/2020 09:42:28 AM EDT TABLET 650 MG ORAL active [facility] Acetaminophen 325 MG Oral Tablet [Tylenol] Acetaminophen 03/28/2020 09:42:28 AM EDT TABLET 650 MG ORAL active [facility] Acetaminophen 325 MG Oral Tablet [Tylenol] Acetaminophen 03/28/2020 09:42:28 AM EDT TABLET 650 MG ORAL active [facility] Acetaminophen 325 MG Oral Tablet [Tylenol] Acetaminophen 03/28/2020 09:42:28 AM EDT TABLET 650 MG [facility] Thiamine 100 MG Oral Tablet thiamine 100 MG tablet thiamine 100 MG tablet 10/06/2019 12:00:00 AM EST 100 mg Oral active Take 1 tablet (100 mg total) by mouth daily [facility] Levetiracetam 100 MG/ML Oral Solution le vETIRAcetam (KEPPRA) 100 MG/ML solution 500 mg levETIRAcetam (KEPPRA) 100 MG/ML solution 500 mg 10/05 12:00:00 AM EST 500 mg Oral active 500 mg, Oral, 2 times daily, First dose on Thu10/05/[address] [facility] Medication administered onsite Docusate Sodium 10 MG/ML Oral Suspension docusate (COL REAGAN) 50 MG/5ML liquid docusate (COLACE) 50 MG/5ML liquid 10/05/2019 12:00:00 AM EST 100 mg active 10 mL (100 mg total) by Per G Tu be route 2 (two) times a day [facility] Metoprolol Tartrate 50 MG Oral Tablet me toprolol tartrate (LOPRESSOR) 50 MG tablet metoprolol tartrate (LOPRESSOR) 50 MG tablet 10/05/2019 12:0 0:00 AM EST 50 mg Oral active Take 1 tablet (5 0 mg total) by mouth 2 (two) times a day [facility] Levetiracetam 100 MG/ML Oral Solution levETIRAcetam (K EPPRA) 100 MG/ML solution levETIRAcetam (KEPPRA) 100 MG/ML solution 10/05/2019 12:00:00 AM EST 500 mg Oral active Take 5 mL (500 mg to forest) by mouth 2 (two) times a day [facility] Bisacodyl 10 MG Rectal Suppository bisacodyl (DULCOLAX ) 10 MG suppository bisacodyl (DULCOLAX) 10 MG suppository 10/05/2019 12:00:00 AM EST 10 mg Rectal active Insert 1 suppo sitory (10 mg total) into the rectum daily as needed [facility] gabapentin 100 MG Oral Capsule gabapentin (NEURONTIN) 100 MG capsule gabapentin (NEURONTIN) 100 MG capsule 10/05/2019 12:00:00 AM EST 200 mg Oral active Take 2 capsules (200 mg total) by mouth 3 (three) times a day [facility] Metoprolol Tartrate 50 MG Oral Tablet me toprolol tartrate (LOPRESSOR) tablet 50 mg metoprolol tartrate (LOPRESSOR) tablet 50 mg 10/02/2019 10:00:00 AM EST 50 mg active 50 mg, Per NG tube, 2 times daily, First dose on 10/02/[address] [facility] Medication administered onsite Thiamine 100 MG Oral Tablet thiamine tablet 100 mg thiamine tablet 100 mg 10/02/2019 09:00:00 AM EST 100 mg Oral active 100 mg, Oral, Daily, First dose on 10/02/[address] [facility] Medication administered onsite dextrose 10 % infusion [id number] 10/01/2019 10:27:43 AM EST Intravenous aborted 1-150 mL/hr, In travenous, at 1-150 mL/hr, Continuous PRN, For interruption of enteral feeding, Starting 10/01/19 at 1027
Nutrition Interrupted Orders1. Notify provider and start D10W at tube feeding infusion rate2. Check bedside blood glucose every hour for three hours once [id number] begins:a. If any glucose is under 70, follow hypoglycemia protocol, increase D10W infusion rate by 50%, and call providerb. If any glucose is under 80, increase D10W infusion rate by 50% and call providerc. If any glucose is over 200, decrease D10W infusion rate by 50% and call providerd. If three consecutive Q1 hour bedside glucoseare:i. between 80- 200, reduce bedside blood glucose frequency to every 6 hoursii. not within 80-200, defer to Provider for insulin/bedside blood glucose/IV orders
[facility] Medication administered onsite Metoprolol Tartrate 1 MG/ML Injectable S olution metoprolol tartrate (LOPRESSOR) injection 5 mg metoprolol tartrate (LOPRESSOR) injection 5 mg 019 12:00:00 PM EST 5 mg Intravenous aborted 5 mg, Intravenous, Every 6 hours (scheduled), First dose on Thu09/30/19 at 1200
infuse over 1 hour via infusion pump.Mix in 100 mLs normal saline for IVMB on non-ICU unitsHold for HR <80bpm
[facility] Medication administered onsite dextrose 5 % infusion [id number] 09/30/2019 11:00:00 AM EST Intravenous aborted at 75 mL/hr, Int ravenous, Continuous, Starting Thu09/30/[address] [facility] Medication administered onsite levETIRAcetam (KEPPRA) 500 mg in sodium chloride (NS) 0.9 % 100 mL IVPB pigtail 09/23/2019 09:00:00 PM EST 500 mg Intravenous aborte d 500 mg, Intravenous, Administer over 15 Minutes, Every 12 hours (relative), First dose on Thu09/23/[address] [facility] Medication administered onsite olanzapine 20 MG Oral Tablet [Zyprexa] Zyprexa 08/31/2019 12:0 0:00 AM EDT 20 mg by mouth completed [id number] Zyprexa by mouth [id number] 08/31/2019 10/30/2019 at bedtime 30 20 mg tablet [id number] Corrine luiz Solomon [id number] Psychiatric/Mental Health [facility] Methotrexate 2.5 MG Oral Tablet methotrexate 2.5 MG ta blet methotrexate 2.5 MG tablet 08/30/2019 12:00:00 AM EDT aborted TAKE THREE TABLETS BY MOUTH Every Thursday @8AM [facility] Pilocarpine Hydrochloride 5 MG Oral Tablet pilocarpine (SALAGEN) 5 MG tablet pilocarpine (SALAGEN) 5 MG tablet 08/30/2019 12:00:00 AM EDT aborted High risk medication use TAKE ONE TABLET BY MOUTH @8A M and TAKE ONE TABLET @12PM and TAKE ONE TABLET @8PM [facility] High risk medication use Folic Acid 1 MG Oral Tablet folic acid (FOLVITE) 1 MG tablet folic acid (FOLVITE) 1 MG tablet 06/24/2019 12:00:00 AM EDT aborted High risk medication use TAKE TWO TABLETS BY MOUTH @8AM [facility] High risk medication use gabapentin 400 MG Oral Capsule gabapentin (NEURONTIN) 400 MG capsule gabapentin (NEURONTIN) 400 MG capsule 06/24/2019 12:00:00 AM EDT 400 mg Oral aborted Take 1 capsule by mouth Three times gustavo [facility] Hydroxychloroquine Sulfate 200 MG Oral T ablet hydroxychloroquine (PLAQUENIL) 200 MG tablet hydroxychloroquine (PLAQUENIL) 200 MG tablet 9 12:00:00 AM EDT 200 mg Oral aborted Long-term use of PlaquenilOther systemic lupus erythematosus with other organ involvementSjogren's syndrome with keratoconjunctivitis sicca Take 1 tablet by mouth Two Times Daily [facility] Long-term use of Plaquenil Other systemic lupus erythematosus with other organ involvement Sjogren's syndrome with keratoconjunctiv itis sicca Cyclobenzaprine hydrochloride 5 MG Oral Tablet cyclobenzaprine (FLEXERIL) 5 MG tablet cyclobenzaprine (FLEXERIL) 5 MG tablet 09/03/2017 12:00:00 AM EDT 5 mg Oral aborted Take 5 mg by m outh 3 (three) times a day as needed for muscle spasms [facility] Sucralfate 1000 MG Oral Tablet sucralfate (CARAFATE) 1 g tablet sucralfate (CARAFATE) 1 g tablet 1 g Oral aborted Take 1 g by mouth 4 (four) times a day [facility] Trazodone Hydrochloride 100 MG Oral Tablet traZODone ( DESYREL) 100 MG tablet traZODone (DESYREL) 100 MG tablet 200 mg Oral abor teresa Take 200 mg by mouth nightly [facility] topiramate 100 MG Oral Tablet topiramate (TOPAMAX) 100 MG tablet topiramate (TOPAMAX) 100 MG tablet 150 mg Oral aborted Take 150 mg by mouth 2 (two) times a day [facility] Metoclopramide 10 MG Oral Tablet metoclopramide (JOSE ROBERTO N) 10 MG tablet metoclopramide (REGLAN) 10 MG tablet 10 mg Oral a borted Take 10 mg by mouth 3 (three) times a day [facility] Lorazepam 1 MG Oral Tablet LORazepam (ATIVAN) 1 MG tab let LORazepam (ATIVAN) 1 MG tablet 1.5 mg Oral aborted Take 1.5 mg b y mouth nightly [facility] Acetaminophen 325 MG / butalbital 50 MG / Caffeine 40 MG Oral Tablet khkzwnorxi-lwviyhmlvgsue-fnmqdamn (FIORICET, ESGIC) 50-325-40 MG per tablet usbyzcuqhq-cpgjtgfxlwsfv-juwliboc (FIORICET, ESGIC) 50-325-40 MG per tablet Oral aborted Take 1-2 t ablets by mouth every 8 (eight) hours as needed for pain or headaches [facility] olanzapine 20 MG Oral Tablet OLANZapine (ZYPREXA) 20 M G tablet OLANZapine (ZYPREXA) 20 MG tablet 20 mg Oral aborted Take 20 mg by mouth nightly [facility] 24 HR Nifedipine 60 MG Extended Release Oral Tablet NIFEdipine ER (ADALAT CC) 60 MG 24 hr tablet NIFEdipine ER (ADALAT CC) 60 MG 24 hr tablet 60 mg Oral aborted Take 60 mg by mouth daily [facility] Naproxen 500 MG Oral Tablet naproxen (NAPROSYN) 500 MG tablet naproxen (NAPROSYN) 500 MG tablet 500 mg Oral aborted Take 500 mg by mouth Two times daily as needed [facility] Pilocarpine Hydrochloride 5 MG Oral Tablet pilocarpine (SALAGEN) 5 MG tablet pilocarpine (SALAGEN) 5 MG tablet 5 mg Oral abor teresa Take 5 mg by mouth 3 (three) times a day [facility] gabapentin 400 MG Oral Capsule gabapentin (NEURONTIN) 400 MG capsule gabapentin (NEURONTIN) 400 MG capsule 400 mg Oral aborted Take 400 mg by mouth 3 (three) times a day [facility] Diphenhydramine Hydrochloride 25 MG Oral Tablet diphenhydrAMINE (BENADRYL) 25 MG tablet diphenhydrAMINE (BENADRYL) 25 MG tablet 100 mg Oral aborted Take 100 mg by mouth nightly [facility] Misoprostol 0.2 MG Oral Tablet misoprostol (CYTOTEC) 2 00 MCG tablet misoprostol (CYTOTEC) 200 MCG tablet 200 ug Oral aborted Take 200 mcg by mouth 4 (four) times a day [facility] Ondansetron 4 MG Disintegrating Oral Tab let ondansetron (ZOFRAN-ODT) 4 MG disintegrating tablet ondansetron (ZOFRAN-ODT) 4 MG disintegrating tablet 8 mg Oral aborted Take 8 mg by mouth 4 (four) times a day as needed for nausea [facility] Hydroxyzine Pamoate 50 MG Oral Capsule hydrOXYzine ( STARIL) 50 MG capsule hydrOXYzine (VISTARIL) 50 MG capsule 100 mg Oral a borted Take 100 mg by mouth nightly [facility] Insurance Providers Payer name Policy type / Coverage type Policy ID Covered alliance party ID Covered alliance party's relationship to baer Policy Baer Plan Information EMEDNY [id number] SP [id number] MEDICARE [id number] SP [id number] [place] [id number] MEDICARE Medicare [id number] [place] [id number] Self [id number] MEDICARE Med [id number] Self [id number] D95 SELF PAY MEDICAID [facility] [id number] SP BG [id number] MEDICARE [id number] SP [id number] D95 SELF PAY MEDICAID [facility] [id number] SP BG [id number] MEDICARE [id number] SP [id number] D95 SELF PAY MEDICAID [facility] [id number] SP BG [id number] MEDICARE [id number] SP [id number] D95 SELF PAY MEDICAID [facility] [id number] SP BG [id number] MEDICARE [id number] SP [id number] D95 SELF PAY MEDICAID [facility] [id number] SP BG [id number] MEDICARE [id number] SP [id number] D95 SELF PAY MEDICAID [facility] [id number] SP BG [id number] MEDICARE [id number] SP [id number] D95 SELF PAY MEDICAID [facility] [id number] SP BG [id number] MEDICARE [id number] SP [id number] D95 MEDICARE A [id number] Self [id number] D95 MEDICAID [id number] Self [id number] SELF PAY MEDICAID [facility] [id number] SP BG [id number] MEDICARE [id number] SP [id number] D95 SELF PAY MEDICAID [facility] [id number] SP BG [id number] MEDICARE [id number] SP [id number] D95 SELF PAY MEDICARE [id number] SP [id number] D95 MEDICAID [facility] [id number] SP BG [id number] SELF PAY SELF PAY SELF PAY MEDICAID [facility] [id number] SP BG [id number] MEDICARE [id number] SP [id number] D95 MEDICAID [facility] [id number] SP BG [id number] MEDICARE [id number] SP [id number] D95 MEDICAID [facility] [id number] SP BG [id number] MEDICARE [id number] SP [id number] D95 "" PRV None Medicaid CHELLE [id number] None [id number] Medicare MDA [id number] Self [id number] D95 Medicare MDB None Medicaid S [id number] S [id number] Medicare P [id number] S [id number] D95 SELF PAY MEDICAID [facility] [id number] SP BG [id number] MEDICARE [id number] SP [id number] D95 SELF PAY SELF PAY MEDICAID [facility] [id number] SP BG [id number] MEDICARE [id number] SP [id number] D95 SELF PAY MEDICAID [facility] [id number] SP BG [id number] MEDICARE [id number] SP [id number] D95 MEDICAID [facility] [id number] SP BG [id number] MEDICARE [id number] SP [id number] D95 SELF PAY MEDICAID [facility] [id number] SP BG [id number] MEDICARE [id number] SP [id number] D95 MCRB [id number] S [id number] D95 MEDICARE [id number] S [id number] D95 MEDICAID PROF FEES [id number] MEDICAID [id number] S [id number] MEDICAID [facility] SCIENCE RADHA. 2 [id number] 1 [id number] MEDICARE [facility] ([facility]) - [id number] 1 [id number] SELF PAY SELF PAY MEDICAID [id number] S [id number] [facility] MEDICARE DIVISION [id number] S [id number] [place]IC[place] [id number] S [id number] SELF PAY MEDICARE [id number] Sandra [id number] D95 MEDICAID [id number] Sandra [id number] SELF PAY MEDICAID [facility] [id number] SP BG [id number] MEDICARE [id number] SP [id number] D95 MEDICAID [id number] MEDICARE [id number] MEDICAID [id number] SP [id number] MEDICARE C [id number] S [id number] D95 MEDICAID M [id number] S [id number] NORIDIAN PART B C [id number] S [id number] MCRB [id number] S [id number] MEDICARE [id number] S [id number] 095 MEDICAID [id number] S [id number] BCBS EXCELLUS [id number] SPO DCI [id number] MEDICAID [id number] S [id number] MEDICAID [id number] S [id number] [place] [id number] S [id number] [place]IC[place] [id number] S [id number] DME Jurisdiction A NHIC C [id number] SELF [id number] Medicare C [id number] SELF [id number] D95 DME Jurisdiction A NHIC C [id number] SELF [id number] Medicare C [id number] SELF [id number] D95 Medicaid [facility] S D [id number] SELF [id number] MEDICARE A [id number] Self [id number] A ANSI-Medicaid [id number] ANSI-Medicare Part B [id number] ANSI-Medicaid [id number] ANSI-Medicare Part B [id number] ANSI-Medicare Part B [id number] ANSI-Medicaid [id number] MEDICAID [id number] SP [id number] MEDICARE [id number] SP [id number] D95 ANSI-Medicaid [id number] ANSI-Medicare Part B [id number] ANSI-Medicaid [id number] ANSI-Medicare Part B [id number] ANSI-Medicaid [id number] ANSI-Medicare Part B [id number] ANSI-Medicare Part B [id number] ANSI-Medicaid [id number] ANSI-Medicaid [id number] ANSI-Medicare Part B [id number] ANSI-Medicare Part B [id number] ANSI-Medicaid [id number] ANSI-Medicare Part B [id number] ANSI-Medicaid [id number] ANSI-Medicaid [id number] ANSI-Medicare Part B [id number] ANSI-Medicaid [id number] ANSI-Medicare Part B [id number] MEDICAID [id number] S [id number] MEDICAID PI PI MEDICARE PI PI MEDICARE [id number] Sandra [id number] A Medicaid [place] Medigap Part B [id number] Self [id number] Medicare [place] Medicare Primary [id number] Self [id number] MEDICAID [id number] SP [id number] [facility] MEDICARE DIVISION [id number] S [id number] [place]ICARE [place] [id number] S [id number] [facility] MEDICARE DIVISION [id number] S [id number] [place]ICARE [place] [id number] S [id number] MEDICAID [id number] SP [id number] MEDICARE [id number] SP [id number] A Medicaid S [id number] S [id number] ASSIGNED MEDICARE (81) [id number] 1 [id number] MEDICAID (101) [id number] Medicaid [place] Medigap Part B [id number] Self [id number] Medicare [place] Medicare Primary [id number] Self [id number] MEDICARE [id number] SP [id number] A MEDICAID [id number] S [id number] MEDICARE C [id number] S [id number] A Medicare S [id number] S [id number] A Medicare P [id number] S [id number] MEDICAID -O/P [id number] MEDICARE PART A -O/P [id number] [place] MEDICARE PART B C [id number] S [id number] [facility] MEDICAID [id number] SP [id number] S MEDICARE B [place] [id number] SP [id number] MEDICARE/NATIONAL GOVT SVCS [id number] SP [id number] [facility]CS MEDICAID [id number] SP [id number] S MEDICARE B [place] [id number] SP [id number] MEDICARE/NATIONAL GOVT SV[place] [id number] SP [id number] MEDICAID [id number] SP [id number] Medicare Part B [facility] [id number] MEDICAID [place] [id number] MEDICAID - CLINIC [id number] BG [id number] MEDICARE PART A-CLINIC [id number] SELF PAY UNAVAILABLE [place] BLE Medicare C [id number] SELF [id number] A MEDICARE [id number] S [id number] A MCRB [id number] S [id number] A BLUE CROSS BLUE SHIELD-CLINIC [id number] SELF PAY SP UNAVAILABLE S UNA[place] BLE BC BLUE CARD 1 [id number] MEDICAID W [id number] S [id number] MEDICARE OUTPATIENT M [id number] S [id number] SELF PAY 2 UNAVAILABLE 1 [place] 3 [id number] S [employer] [place] 010/510 [id number] [facility]/MEDICAID [id number] Medicare Part B [facility] [id number] [place] [id number] DCI [id number] MEDICAID S UNAVAILABLE P [place] BLE BC BS [place] O [id number] [employer] 12 [id number] [place] O [id number] MEDICARE PART A-CLINIC [id number] Problems, Conditions, and Diagnoses Code Display Name Description Problem Type Effective Dates Data Source(s) 961461786 Retention of urine Retention of urine Problem 11/2019 12:00:00 AM EDT [facility] ([facility] [place]) 37017019 Acute cystitis Acute cystitis Problem 04/16/2020 12:00: 00 AM EDT [facility] ([facility] [place]) Z87.898 History of seizure History of seizure [id number] 12:00:00 AM [facility] Z11.59 Encounter for screening for other viral diseases Z11.59 - Encounter for screening for other viral diseases Diagnosis 10/09/2020 11:42:00 AM ES T [facility] U07.1 U07.1 - COVID-19 U07.1 - COVID-19 Diagnosis 10/05/2020 10 :44:00 AM EST [facility] Z20.828 Contact with and (suspected) exposure to other viral communicable diseases Z20.828 - Contact with and (suspected) e xposure to other viral communicable diseases Diagnosis 09/21/2020 02:36:00 PM EST [facility] th Z01.84 Encounter for antibody response examinat ion Z01.84 - Encounter for antibody response examination Diagnosis 09/10/2020 11:25:00 AM EDT [facility] R94.6 Abnormal results of thyroid function kristan dies R94.6 - Abnormal results of thyroid function studies Diagnosis 08/15/2020 07:00:00 AM EDT [facility] ealt M25.50 Pain in unspecified joint Pain in unspecified joint Di agnosis 07/26/2020 09:28:45 AM [facility] G89.29 Other chronic pain Other chronic pain Diagnosis 08/2020 09:28:45 AM [facility] M79.10 M79.10 - Myalgia, unspecified site M79.10 - Myal devon, unspecified site Diagnosis 06/20/2020 07:50:00 PM EDT [facility] D64.9 Anemia, unspecified D64.9 - Anemia, unspecified Diagno sis 06/18/2020 10:52:00 AM EDT [facility] M32.10 Systemic lupus erythematosus, organ or s ystem involvement unspecified M32.10 - Systemic lupus erythematosus, organ or system involvement unspecified Diagnosis 06/07/2020 09:10:00 PM EDT [facility] G93.1 Anoxic brain damage, not elsewhere class ified G93.1 - Anoxic brain damage, not elsewhere classified Diagnosis 06/07/2020 09:10:00 PM EDT [facility] 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 I69.914 - Frontal lobe and executive fun ction deficit following unspecified cerebrovascular disease Diagnosis 06/07/20 20 09:10:00 PM EDT [facility] J41.0 Simple chronic bronchitis J41.0 - Simple chronic bronc hitis Diagnosis 06/07/2020 09:10:00 PM EDT [facility] I10 Essential (primary) hypertension I10 - Essential (primary) hypertension Diagnosis 06/07/2020 09:10:00 PM EDT [facility] 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 F32.9 Major depressive disorder, single episod e, unspecified F32.9 - Major depressive disorder, single episode, unspecified Diagnosis 06/07 09:10:00 PM EDT [facility] H53.149 Visual discomfort, unspecified H53.149 - Visual discomfort, unspecified Diagnosis 05/09/2020 02:21:00 AM EDT [facility] R11.0 Nausea R11.0 - Nausea Diagnosis 05/09/2020 02:21:00 A M [facility] R51 Headache R51 - Headache Diagnosis 05/09/2020 02:21:00 A M EDT [facility] N30.00 Acute cystitis without hematuria N30.00 - Acute cystitis without hematuria Diagnosis 04/16/2020 11:00:00 PM EDT [facility] R41.81 Age-related cognitive decline R41.81 - Age-relat ed cognitive decline Diagnosis 04/05/2020 07:40:00 [facility] F41.9 Anxiety disorder, unspecified ANXIETY DISORDER, UNSPEC IFIED Diagnosis 04/02/2020 12:00:00 AM EDT [facility] ([facility] ) N39.0 Urinary tract infection, site not specif ied URINARY TRACT INFECTION, SITE NOT SPECIFIED Diagnosis 04/02/2020 12:00:00 AM EDT [facility] ([facility]) N30.90 Cystitis, unspecified without hematuria CYSTITIS, UNSPECIFIED WITHOUT HEMATURIA Diagnosis 04/02/2020 12:00:00 AM EDT P[facility] ([facility]) M35.00 Sicca syndrome, unspecified SICCA SYNDROME, UNSPECIFIE D Diagnosis 04/02/2020 12:00:00 AM EDT [facility] ([facility] ) T50.905A Adverse effect of unspecifie d drugs, medicaments and biological substances, initial encounter T50.905A - Adverse effect of unspecified drugs, medicaments and biological substances, initial encounter Diagnosis 03/28/2020 02:08:00 PM EDT [facility] K58.0 Irritable bowel syndrome with diarrhea K 58.0 - Irritable bowel syndrome with diarrhea Diagnosis 03/28/2020 02:08:00 PM EDT [facility] R00.1 Bradycardia, unspecified R00.1 - Bradycardia, unspecif ied Diagnosis 03/28/2020 02:08:00 PM EDT [facility] E51.2 Wernicke's encephalopathy E51.2 - Wernicke's encephalo jonny Diagnosis 03/28/2020 02:08:00 PM EDT [facility] J45.909 Unspecified asthma, uncomplicated J45.90 9 - Unspecified asthma, uncomplicated Diagnosis 03/28/2020 02:08:00 PM EDT [facility] R63.0 Anorexia R63.0 - Anorexia Diagnosis 03/28/2020 02:08:00 PM EDT [facility] R06.02 Shortness of breath R06.02 - Shortness of breath Diagn osis 03/28/2020 02:08:00 PM EDT [facility] K58.9 Irritable bowel syndrome without diarrhe a K58.9 - Irritable bowel syndrome without diarrhea Diagnosis 03/28/2020 02:08:00 PM EDT [facility] N13.9 Obstructive and reflux uropathy, unspeci fied N13.9 - Obstructive and reflux uropathy, unspecified Diagnosis 03/28/2020 02:08:00 PM EDT [facility] R26.89 Other abnormalities of gait and mobility R26.89 - Other abnormalities of gait and mobility Diagnosis 03/28/2020 02:08:00 PM EDT [facility] M62.81 Muscle weakness (generalized) M62.81 - Muscle we akness (generalized) Diagnosis 03/28/2020 02:08:00 PM EDT [facility] M79.7 Fibromyalgia M79.7 - Fibromyalgia Diagnosis 03/28/2020 02 :08:00 PM EDT [facility] Z96.0 Presence of urogenital implants Z96.0 - Presence of urogenital implants Diagnosis 03/28/2020 02:08:00 PM EDT [facility] Z98.84 Bariatric surgery status Z98.84 - Bariatric surgery st atus Diagnosis 03/28/2020 02:08:00 PM EDT [facility] N13.9 Obstructive and reflux uropathy, unspeci fied OBSTRUCTIVE AND REFLUX UROPATHY, UNSPECIFIED Diagnosis 01/12/2020 12:00:00 AM EST [facility] ([facility]) R26.89 Other abnormalities of gait and mobility OTHER ABNORMALITIES OF GAIT AND MOBILITY Diagnosis 12/05/2019 12:00:00 AM EST [facility] ([facility]) R41.841 Cognitive communication deficit COGNITIVE COMMUN ICATION DEFICIT Diagnosis 10/07/2019 12:00:00 AM EST [facility] ([facility]) I69.828 Other speech and language de ficits following other cerebrovascular disease OTHER SPEECH AND LANGUAGE DEFICITS FOLLO WING OTHER CEREBROVASCULAR DISEASE Diagnosis 10/07/2019 12:00:00 AM EST [facility] ([facility]) 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 DYSPHAGIA FOLLOWING OTHER CEREBROVASCULAR DISEASE Diagnosis 10/07/2019 12:00:00 AM EST [facility] ([facility]) M62.81 Muscle weakness (generalized) MUSCLE WEAKNESS (GENERAL IZED) Diagnosis 10/06/2019 12:00:00 AM EST [facility] ([facility] ) M62.59 Muscle wasting and atrophy, not elsewher e classified, multiple sites MUSCLE WASTING AND ATROPHY, NOT ELSEWHERE CLASSIFIED, MULTIPLE SITES Diagnosis 10/06/2019 12:00:00 AM EST [facility] ([facility] ) E46 Unspecified protein-calorie malnutrition UNSPECIFIED PROTEIN-CALORIE MALNUTRITION Diagnosis 10/05/2019 12:00:00 AM EST [facility] ([facility]) M79.7 Fibromyalgia FIBROMYALGIA Diagnosis 10/05/2019 12:00:00 A M EST [facility] ([facility]) I10 Essential (primary) hypertension ESSENTIAL (PRIMARY) H YPERTENSION Diagnosis 10/05/2019 12:00:00 AM EST [facility] ([facility] ) E51.2 Wernicke's encephalopathy WERNICKE'S ENCEPHALOPATHY Di agnosis 10/05/2019 12:00:00 AM EST [facility] ([facility] ) N31.8 Other neuromuscular dysfunction of bladd er OTHER NEUROMUSCULAR DYSFUNCTION OF BLADDER Diagnosis 10/05/2019 12:00:00 AM EST [facility] ([facility]) M32.8 Other forms of systemic lupus erythemato angel OTHER FORMS OF SYSTEMIC LUPUS ERYTHEMATOSUS Diagnosis 10/05/2019 12:00:00 AM EST [facility] ([facility]) G40.89 Other seizures OTHER SEIZURES Diagnosis 10/05/2019 12:00: 00 AM EST [facility] ([facility]) K58.8 Other irritable bowel syndrome OTHER IRRITABLE BOWEL S YNDROME Diagnosis 10/05/2019 12:00:00 AM EST [facility] ([facility] ) F33.9 Major depressive disorder, recurrent, un specified MAJOR DEPRESSIVE DISORDER, RECURRENT, UNSPECIFIED Diagnosis 10/05/2019 12:00:00 AM EST [facility] ([facility]) F50.00 Anorexia nervosa, unspecified ANOREXIA NERVOSA, UNSPEC IFIED Diagnosis 10/05/2019 12:00:00 AM EST [facility] ([facility] ) D64.9 Anemia, unspecified ANEMIA, UNSPECIFIED Diagnosis 1 12/05/2018 12:00:00 AM EST [facility] ([facility] ) J45.998 Other asthma OTHER ASTHMA Diagnosis 10/05/2019 12:00:00 A M EST [facility] ([facility]) J96.00 Acute respiratory failure, u nspecified whether with hypoxia or hypercapnia ACUTE RESPIRATORY FAILURE, UNSPECIFIED W HETHER WITH HYPOXIA OR HYPERCAPNIA Diagnosis 10/05/2019 12:00:00 AM EST [facility] ([facility]) Surgeries/Procedures Procedure Description Date Indications Data Source(s) CBC AND DIFFERENTIAL CBC AND DIFFERENTIAL Routine 10/24/2020 9:40 AM EST 10/24/2020 09:40:00 AM [facility] THYROID STIMULATING HORMONE TSH TSH Routine 10/24/2020 9:40 AM EST 10/24/2020 09:40:00 AM [facility] FOLIC ACID SERUM FOLATE Routine 10/24/2020 9:40 AM EST 10/24/2020 09:40:00 AM EST [facility] CYANOCOBALAMIN VITAMIN B-12 VITAMIN B12 Routine 10/24/2020 9:40 AM EST 10/24/2020 09:40:00 AM EST [facility] COMPREHENSIVE METABOLIC PANEL COMPREHENSIVE METABOLIC PANEL Rou ruthann 10/24/2020 9:40 AM EST 10/24/2020 09:40:00 AM [facility] Urine culture (procedure) 04/16/2020 12:00:00 AM EDT [facility] Monocyte percent differential count (procedure) 2019 12:00:00 AM EDT [facility] MR SPINE CERVICAL WO CONT 03/31/2020 02:44:00 PM EDT [facility] MR SPINE CERVICAL WO CONT 03/31/2020 02:44:00 PM EDT [facility] MR SPINE CERVICAL WO CONT 03/31/2020 02:44:00 PM EDT [facility] MR BRAIN WO CONTRAST 03/31/2020 08:27:00 AM EDT [facility] MR BRAIN WO CONTRAST 03/31/2020 08:27:00 AM EDT [facility] MR BRAIN WO CONTRAST 03/31/2020 08:27:00 AM EDT [facility] Urine culture (procedure) 03/30/2020 12:00:00 AM EDT [facility] Monocyte percent differential count (procedure) 2019 12:00:00 AM EDT [facility] Urine culture (procedure) 03/30/2020 12:00:00 AM EDT [facility] Monocyte percent differential count (procedure) 2019 12:00:00 AM EDT [facility] Urine culture (procedure) 03/30/2020 12:00:00 AM EDT [facility] Monocyte percent differential count (procedure) 2019 12:00:00 AM EDT [facility] Plain chest X-ray (procedure) 03/28/2020 09:49:00 AM E DT [facility] CT BRAIN HEAD WO CONTRAST 03/28/2020 09:49:00 AM EDT [facility] Plain chest X-ray (procedure) 03/28/2020 09:49:00 AM E [facility] CT BRAIN HEAD WO CONTRAST 03/28/2020 09:49:00 AM EDT [facility] Plain chest X-ray (procedure) 03/28/2020 09:49:00 AM E DT [facility] BRAIN HEAD WO CONTRAST 03/28/2020 09:49:00 AM EDT [facility] Plain chest X-ray (procedure) 03/28/2020 09:49:00 AM E DT [facility] CT BRAIN HEAD WO CONTRAST 03/28/2020 09:49:00 AM EDT [facility] Blood culture for bacteria, including anaerobic screen (proc edure) 03/28/2020 12:00:00 AM EDT [facility] Blood culture for bacteria, including anaerobic screen (proc edure) 03/28/2020 12:00:00 AM EDT [facility] Blood culture for bacteria, including anaerobic screen (proc edure) 03/28/2020 12:00:00 AM EDT [facility] Blood Culture 03/28/2020 12:00:00 AM EDT [facility] Urine Culture 03/28/2020 12:00:00 AM EDT [facility] [place] Count 03/28/2020 12:00:00 AM EDT [facility] GLUC BLD GLUC MNTR DEV CLEARED FDA SPEC HOME USE POCT GLUCOSE Routine 10/04/2019 8:48 AM EST 10/04/2019 01:48:00 PM [facility] GLUC BLD GLUC MNTR DEV CLEARED FDA SPEC HOME USE POCT GLUCOSE Routine 10/04/2019 6:51 AM EST 10/04/2019 11:51:00 AM [facility] GLUC BLD GLUC MNTR DEV CLEARED FDA SPEC HOME USE POCT GLUCOSE Routine 10/04/2019 4:45 AM EST 10/04/2019 09:45:00 AM [facility] GLUC BLD GLUC MNTR DEV CLEARED FDA SPEC HOME USE POCT GLUCOSE Routine 10/04/2019 3:50 AM EST 10/04/2019 08:50:00 AM [facility] GLUC BLD GLUC MNTR DEV CLEARED FDA SPEC HOME USE POCT GLUCOSE Routine 10/03/2019 8:21 PM EST 10/04/2019 01:21:00 AM [facility] GLUC BLD GLUC MNTR DEV CLEARED FDA SPEC HOME USE POCT GLUCOSE Routine 10/03/2019 5:22 PM EST 10/03/2019 10:22:00 PM [facility] GLUC BLD GLUC MNTR DEV CLEARED FDA SPEC HOME USE POCT GLUCOSE Routine 10/03/2019 12:51 PM EST 10/03/2019 05:51:00 PM [facility] GLUC BLD GLUC MNTR DEV CLEARED FDA SPEC HOME USE POCT GLUCOSE Routine 10/03/2019 7:52 AM EST 10/03/2019 12:52:00 PM [facility] BLOOD COUNT COMPLETE AUTOMATED CBC STAT 10/03/2019 6:06 A M EST 10/03/2019 11:06:00 AM [facility] BASIC METABOLIC PANEL CALCIUM TOTAL BASIC METABOLIC PANEL STAT 10/03/2019 6:06 AM EST 10/03/2019 11:06:00 AM [facility] GLUC BLD GLUC MNTR DEV CLEARED FDA SPEC HOME USE POCT GLUCOSE Routine 10/03/2019 4:21 AM EST 10/03/2019 09:21:00 AM [facility] GLUC BLD GLUC MNTR DEV CLEARED FDA SPEC HOME USE POCT GLUCOSE Routine 10/02/2019 11:57 PM EST 10/03/2019 04:57:00 AM [facility] GLUC BLD GLUC MNTR DEV CLEARED FDA SPEC HOME USE POCT GLUCOSE Routine 10/02/2019 7:52 PM EST 10/03/2019 12:52:00 AM [facility] GLUC BLD GLUC MNTR DEV CLEARED FDA SPEC HOME USE POCT GLUCOSE Routine 10/02/2019 4:39 PM EST 10/02/2019 09:39:00 PM [facility] GLUC BLD GLUC MNTR DEV CLEARED FDA SPEC HOME USE POCT GLUCOSE Routine 10/02/2019 11:44 AM EST 10/02/2019 04:44:00 PM [facility] GLUC BLD GLUC MNTR DEV CLEARED FDA SPEC HOME USE POCT GLUCOSE Routine 10/02/2019 8:15 AM EST 10/02/2019 01:15:00 PM [facility] BLOOD COUNT COMPLETE AUTOMATED CBC Timed 10/02/2019 5:12 A M EST 10/02/2019 10:12:00 AM [facility] MAGNESIUM MAGNESIUM Add-On 10/02/2019 5:12 AM EST 10/02/2019 10:12:[address] [facility] BASIC METABOLIC PANEL CALCIUM TOTAL BASIC METABOLIC PANEL Timed 10/02/2019 5:12 AM EST 10/02/2019 10:12:00 AM EST [facility] GLUC BLD GLUC MNTR DEV CLEARED FDA SPEC HOME USE POCT GLUCOSE Routine 10/02/2019 4:01 AM EST 10/02/2019 09:01:[address] [facility] Results ID Date Data Source [id number] 11/25/2020 03:26:00 AM EST [facility] Name Value Range Interpretation Code Description Data Elizabeth rce(s) Supporting Document(s) SARS-CoV-2 & Flu A/B Specimen Source: Nasopharynx [facility] Patient Ethnicity: Unknown [facility] ADDITIONAL INFORMATIO N This PCR test is performed using the tremaine SARS-CoV-2 andInfluenza A/B assay ([employer] on [employer] / [employer], and it has received EmergencyUse Authorization (EUA) by the U.S. Food and DrugAdministration.Fact sheets for this Emergency Use Authorization (EUA)assay can be found at the following links:https://www.fda.gov/media/339266/download for HealthcareProvidershttps://www.fda.gov/media/701437/download for PatientsTest Performed by:[facility] [place] [facility] [place] [place] [id number] Director: Salvador Owens M.D. Ph.D.; CLIA# [id number] Patient Race: Unknown [facility] SARS CoV-2 RNA PCR Undetected Undetected Normal (appli es to non-numeric results) [facility] SARS-CoV-2 RNA absent. This result does not rule outCOVID-19 in the patient, as the sensitivity of the testdepends on the timing of the specimen collection and thequality of the specimen. Result should be correlated withpatient's history and clinical presentation. Influenza A RNA PCR Undetected Undetected Normal (appl ies to non-numeric results) [facility] Influenza A RNA absent. Influenza B RNA PCR Undetected Undetected Normal (appl ies to non-numeric results) [facility] Influenza B RNA absent.The above 6 shahbaz luigi were performed by [facility] ([id number]) ID Date Data Source [id number] 11/16/2020 07:53:00 PM EST [facility] Name Value Range Interpretation Code Description Data Elizabeth rce(s) Supporting Document(s) SARS coronavirus 2 RNA [facility] This lab was ordered by [facility] (ER) and reported by [facility]. ID Date Data Source [id number] 11/14/2020 09:40:00 AM EST [facility] Name Value Range Interpretation Code Description Data Elizabeth rce(s) Supporting Document(s) :PrThr:Pt:Respiratory:Ord:Probe.amp.tar [facility] This lab was ordered by [facility] in Lab Site and reported by [facility]. ID Date Data Source [id number] 11/15/2020 03:11:00 PM EST [facility] Name Value Range Interpretation Code Description Data Elizabeth rce(s) Supporting Document(s) [facility] SARS-CoV-2 (RT)-PCR Assay Negative Negative N ormal (applies to non-numeric results) [facility] The [place] (U.S[place] FDA has made th is test available under anemergency access mechanism called Emergency Use Authorization (EUA). TheEUA is supported by the gyn of Health and Human Services (HHSs)declaration that circumstances exist to justify the emergency use of invitro diagnostics (IVDs) for the detection and/or diagnosis of the virusthat causes COVID-19.Test performed at [facility] located at [facility], [address] [place] [address]. First Test No [facility] Employed in healthcare No [facility] Symptomatic as defined by CDC No [facility] Hospitalized No [facility] Resident in a congregate care setting Yes [facility] No [facility] Intensive Care No [facility] The above 8 [place] [address] ID Date Data Source [id number] 11/07/2020 12:00:00 PM EST [facility] Name Value Range Interpretation Code Description Data Elizabeth rce(s) Supporting Document(s) :PrThr:Pt:Respiratory:Ord:Probe.amp.tar [facility] This lab was ordered by [facility] in [facility] and reported by [facility]. ID Date Data Source [id number] 11/12/2020 12:31:00 PM EST [facility] Name Value Range Interpretation Code Description Data Elizabeth rce(s) Supporting Document(s) CRSP SARS-CoV-2 (RT)-PCR Assay Negative Negative N ormal (applies to non-numeric results) [facility] The [place] ([place] FDA has made th is test available under anemergency access mechanism called Emergency Use Authorization (EUA). TheEUA is supported by the gyn of Health and Human Services (HHSs)declaration that circumstances exist to justify the emergency use of invitro diagnostics (IVDs) for the detection and/or diagnosis of the virusthat causes COVID-19.Test performed at [facility] [place] [address]. First Test No [facility] Employed in healthcare No [facility] Symptomatic as defined by CDC No [facility] Hospitalized No [facility] Resident in a congregate care setting Yes [facility] No [facility] Intensive Care No [facility] The above 8 [place] [address] ID Date Data Source [id number] 10/26/2020 07:00:00 AM EST [facility] Name Value Range Interpretation Code Description Data Elizabeth rce(s) Supporting Document(s) :PrThr:Pt:Respiratory:Ord:Probe.amp.tar [facility] This lab was ordered by [facility] in [facility] and reported by [facility]. ID Date Data Source [id number] 10/29/2020 05:51:00 PM EST [facility] Name Value Range Interpretation Code Description Data Elizabeth rce(s) Supporting Document(s) [facility] SARS-CoV-2 (RT)-PCR Assay Negative Negative N ormal (applies to non-numeric results) [facility] The [place] (U.S[place] FDA has made th is test available under anemergency access mechanism called Emergency Use Authorization (EUA). TheEUA is supported by the gyn of Health and Human Services (HHSs)declaration that circumstances exist to justify the emergency use of invitro diagnostics (IVDs) for the detection and/or diagnosis of the virusthat causes COVID-19.Test performed at [facility] [place] [address]. First Test No [facility] Employed in healthcare No [facility] Symptomatic as defined by CDC Yes [facility] Resident in a congregate care setting Yes [facility] No [facility] Intensive Care No [facility] System The above 8 [place] [address] ID Date Data Source [id number] 10/27/2020 10:50:00 AM EST [facility] Name Value Range Interpretation Code Description Data Elizabeth rce(s) Supporting Document(s) Levetiracetam, S 9.7 mcg/mL 12.0 - 46.0 Below low normal [facility] ADDITIONAL INFORMATIO N This test was developed and its performance characteristicsdetermined by [facility] in a manner consistent with CLIArequirements. This test has not been cleared or approved bythe U.S. Food and Drug Administration.Test Performed by:[facility] [place] [id number] Director: Salvador Owens M.D. Ph.D.; CLIA# [id number] above 1 analytes were performed by [facility] ([id number]) ID Date Data Source [id number] 10/24/2020 06:45:00 PM [facility] Name Value Range Interpretation Code Description Data Elizabeth rce(s) Supporting Document(s) Folate 21.61 ng/ml 5.39-9999.00 Normal (applies to non-numeric re sults) [facility] -----Interpretive Information-----Folate Deficiency: 0.35-3.37 ng/mL.Intermediate: 3.35-5.38 ng/mLNormal: >5.38 ng/mLPatients routinely receiving high-dose biotin therapy may show falselyelevated results. Additional information may be required for diagonsis.The above 1 analytes were performed by [facility] [id number] [place] [address], ,[place] [address] ID Date Data Source [id number] 10/24/2020 06:45:00 PM [facility] Name Value Range Interpretation Code Description Data Elizabeth rce(s) Supporting Document(s) Vitamin B12 >2000 pg/ml 211-911 Above high normal [facility] The above 1 analytes were performed by [facility] [id number] [place] [address], ,[place] [address] ID Date Data Source [id number] 10/24/2020 06:41:00 PM [facility] Name Value Range Interpretation Code Description Data Elizabeth rce(s) Supporting Document(s) AST 13 IU/L 15-37 Below low normal [facility] Sulfasalazine and sulfapyridine have the potential to falsely depressAspartate Aminotransferase results. Baseline values before medication administration are recommended. ALT 21 IU/L 13-56 Normal (applies to non-numeric resul ts) [facility] Sulfasalazine and sulfapyridine have the potential to falsely depressAlanine Aminotransferase results. Baseline values before medication administration are recommended. Alkaline Phosphatase 54 mIU/ml 50-136 Normal (applies to non-num marya results) [facility] Total Bilirubin 0.30 mg/dl 0.20-1.00 Normal (applies to non-numeric results) [facility] Blood Urea Nitrogen 9 mg/dl 7-18 Normal (applies to non-nume deepti results) [facility] Creatinine 0.78 mg/dl 0.51-0.95 Normal (applies to non-numeric resul ts) [facility] N-Acetylcysteine (NAC) and Metamizole velez ve the potential to falselydepress Creatinine results. Baseline values before medication adminstration are recommended. Patients undergoing treatment with phenindione will have falselydepressed results. Patients on phenindione therapy should be tested with an alternativeCREA method.Toxic levels of acetaminophen may lead to falsely depressed results forpatient samples. Glomerular Filtration Rate 81.00 mL/min/1.73m2 [facility] GFR Reference Ranges:Normal Function or Mild Renal Disease,if clinically at risk:>or= 60Moderately decreased:30 - 59Severely decreased:15 - 29Renal Failure:<15 Please note that the MDRD equation requires an additional adjustment forAfrican-Americans (multiply the GFR result by 1.210).Glomarular Filtration Rate (GFR) is estimated based on the MDRDequation, which assumes a steady state for creatinine ([place] Int Med 139/2 137-149, 2003), as recommended by the NationalKidney Disease Education Program in conjunction with the National Institutes of Health and the National KidneyFoundation. The [place] method used in calculating this result is traceable to IDMS standards. Glucose 74 mg/dl 70-110 Normal (applies to non-numeric resul ts) [facility] Sulfasalazine has the potential to false ly depress Glucose results. Sulfapyridine has the potential to falsely elevate Glucose results. Baseline values before medication administration are recommended. Calcium 8.5 mg/dl 8.5-10.1 Normal (applies to non-numeric resul ts) [facility] Total Protein 5.3 g/dl 6.4-8.2 Below low normal [facility] Albumin 3.0 g/dl 3.4-5.0 Below low normal [facility] Sodium 141 mEq/L 136-145 Normal (applies to non-numeric resul ts) [facility] Potassium 4.6 mEq/L 3.5-5.1 Normal (applies to non-numeric resul ts) [facility] Chloride 110.0 mEq/L 98.0-107.0 Above high normal [facility] Carbon Dioxide 25.4 mMol/L 21.0-32.0 Normal (applies to non-numeric results) [facility] Anion Gap 10.2 7.0-15.0 Normal (applies to non-numeric resul ts) [facility] The above 16 analytes were performed by [facility] [id number] [facility], ,[place] [address] ID Date Data Source [id number] 10/24/2020 06:41:00 PM EST [facility] Name Value Range Interpretation Code Description Data Elizabeth rce(s) Supporting Document(s) TSH 0.10 uIU/ml 0.36-3.74 Below low normal [facility] Concentrations of Biotin above 100 ng/mL can potentially result ininterference.The above 1 analytes were performed by [facility] [id number] [facility], ,[place] [address] ID Date Data Source [id number] 10/24/2020 05:42:00 PM [facility] Name Value Range Interpretation Code Description Data Elizabeth rce(s) Supporting Document(s) WBC 4.69 x1000/ul 4.80-10.00 Below low normal [facility] RBC 3.74 x1Mil/ul 4.20-5.40 Below low normal [facility] Hemoglobin 11.5 g/dl 12.0-16.0 Below low normal [facility] Hematocrit 35.3 % 37.0-47.0 Below low normal [facility] MCV 94.4 fL 81.0-99.0 Normal (applies to non-numeric resul ts) [facility] MCH 30.7 pg 27.0-31.0 Normal (applies to non-numeric resul ts) [facility] MCHC 32.6 g/dl 32.2-37.0 Normal (applies to non-numeric resul ts) [facility] RDW 13.4 % 11.5-14.5 Normal (applies to non-numeric resul ts) [facility] Platelet Count 259 x1000/ul 130-400 Normal (applies to non-numeric results) [facility] MPV 11.1 fL 9.4-12.4 Normal (applies to non-numeric resul ts) [facility] Neutrophils 40.7 % 40.0-74.0 Normal (applies to non-numeric resu lts) [facility] Lymphocytes 48.0 % 19.0-48.0 Normal (applies to non-numeric resu lts) [facility] Monocytes 6.8 % 3.4-9.0 Normal (applies to non-numeric resul ts) [facility] Eosinophils 3.0 % 0.0-7.0 Normal (applies to non-numeric resu lts) [facility] Basophils 1.3 % 0.0-2.0 Normal (applies to non-numeric resul ts) [facility] Immature Granulocytes 0.2 % 0.0-0.5 Normal (applies to non-nu meric results) [facility] Nucleated RBCs 0.00 % 0.00-0.20 Normal (applies to non-numeric r esults) [facility] Abs. Neutrophils 1.91 x1000/ul 1.92-8.31 Below low normal [facility] Abs. Lymphocyte 2.25 x1000/ul 1.20-3.70 Normal (applies to non-n umeric results) [facility] Abs. Monocytes 0.32 x1000/ul 0.14-0.97 Normal (applies to non-nu meric results) [facility] Abs. Eosinophils 0.14 x1000/ul 0.00-0.76 Normal (applie s to non-numeric results) [facility] Abs. Basophils 0.06 x1000/ul 0.00-0.22 Normal (applies to non-n umeric results) [facility] Abs. Immature Gran. 0.01 x1000/ul 0.00-0.02 Normal (appl ies to non-numeric results) [facility] Abs. Nucleated RBCs 0.00 x1000/ul 0.00-0.02 Normal (appl ies to non-numeric results) [facility] The above 24 analytes were performed by [facility] [id number] [place] [address], ,[place] [address] ID Date Data Source [id number] 10/18/2020 09:50:00 PM EST [facility] Name Value Range Interpretation Code Description Data Elizabeth rce(s) Supporting Document(s) SARS coronavirus 2 RNA [Presence] in Res piratory specimen by MARIAN with probe detection [facility] This lab was ordered by [facility] a nd reported by [facility]. ID Date Data Source [id number] 10/16/2020 06:05:00 PM EST [facility] Name Value Range Interpretation Code Description Data Elizabeth rce(s) Supporting Document(s) SARS coronavirus 2 RNA [facility] This lab was ordered by [facility] and reported by [facility]. ID Date Data Source [id number] 10/19/2020 08:41:00 AM EST [facility] Name Value Range Interpretation Code Description Data Elizabeth rce(s) Supporting Document(s) COVID 19 Not Detected Not Detected [facility] This nucleic acid amplification test wa s developed and its performance characteristics determined by [employer]. Nucleic acid amplification tests include PCR and TMA. This test has not been FDA cleared or approved. This test has been authorized by FDA under an Emergency Use Authorization (EUA). This test is only authorized for the duration of time the declaration that circumstances exist justifying the authorization of the emergency use of in vitro diagnostic tests for detection of SARS-CoV-2 virus and/or diagnosis of COVID-19 infection under section 564(b)(1) of the Act, 21 U.S.C. 360bbb-3(b) (1), unless the authorization is terminated or revoked sooner. When diagnostic testing is negative, the possibility of a false negative result should be considered in the context of a patient's recent exposures and the presence of clinical signs and symptoms consistent with COVID-19. An individual without symptoms of COVID-19 and who is not shedding SARS-CoV-2 virus would expect to have a negative (not detected) result in this assay. Performed at: [place] [id number] Distribution Driver: Gabriela Mckinley PhD, Phone: [phone] ID Date Data Source [id number] 10/09/2020 12:19:00 PM EST [facility] Name Value Range Interpretation Code Description Data Elizabeth rce(s) Supporting Document(s) SARS coronavirus 2 RNA [facility] This lab was ordered by [facility] and reported by [facility]. ID Date Data Source [id number] 10/12/2020 06:57:00 AM EST [facility] Name Value Range Interpretation Code Description Data Elizabeth rce(s) Supporting Document(s) COVID 19 Not Detected Not Detected [facility] This nucleic acid amplification test wa s developed and its performance characteristics determined by [facility]. Nucleic acid amplification tests include PCR and TMA. This test has not been FDA cleared or approved. This test has been authorized by FDA under an Emergency Use Authorization (EUA). This test is only authorized for the duration of time the declaration that circumstances exist justifying the authorization of the emergency use of in vitro diagnostic tests for detection of SARS-CoV-2 virus and/or diagnosis of COVID-19 infection under section 564(b)(1) of the Act, 21 U.S.C. 360bbb-3(b) (1), unless the authorization is terminated or revoked sooner. When diagnostic testing is negative, the possibility of a false negative result should be considered in the context of a patient's recent exposures and the presence of clinical signs and symptoms consistent with COVID-19. An individual without symptoms of COVID-19 and who is not shedding SARS-CoV-2 virus would expect to have a negative (not detected) result in this assay. Performed at: [facility] [place], [place] [id number] Distribution Driver: Gabriela Mckinley PhD, Phone: [phone] ID Date Data Source [id number] 10/05/2020 02:00:00 PM EST [facility] Name Value Range Interpretation Code Description Data Elizabeth rce(s) Supporting Document(s) SARS coronavirus 2 RNA [facility] This lab was ordered by [facility] and reported by [facility]. ID Date Data Source [id number] 10/06/2020 10:39:00 PM EST [facility] Name Value Range Interpretation Code Description Data Elizabeth rce(s) Supporting Document(s) COVID 19 Not Detected Not Detected [facility] This nucleic acid amplification test wa s developed and its performance characteristics determined by [facility]. Nucleic acid amplification tests include PCR and TMA. This test has not been FDA cleared or approved. This test has been authorized by FDA under an Emergency Use Authorization (EUA). This test is only authorized for the duration of time the declaration that circumstances exist justifying the authorization of the emergency use of in vitro diagnostic tests for detection of SARS-CoV-2 virus and/or diagnosis of COVID-19 infection under section 564(b)(1) of the Act, 21 U.S.C. 360bbb-3(b) (1), unless the authorization is terminated or revoked sooner. When diagnostic testing is negative, the possibility of a false negative result should be considered in the context of a patient's recent exposures and the presence of clinical signs and symptoms consistent with COVID-19. An individual without symptoms of COVID-19 and who is not shedding SARS-CoV-2 virus would expect to have a negative (not detected) result in this assay. Performed at: [facility] [address] [facility], [place], [place] [id number] Distribution Driver: Gabriela Mckinley PhD, Phone: [phone] ID Date Data Source [id number] 09/28/2020 12:00:00 AM EST [facility] Name Value Range Interpretation Code Description Data Elizabeth rce(s) Supporting Document(s) SARS coronavirus 2 RNA [facility] This lab was ordered by [facility] and reported by [facility]. ID Date Data Source [id number] 10/01/2020 08:00:00 AM EST [facility] Name Value Range Interpretation Code Description Data Elizabeth rce(s) Supporting Document(s) COVID 19 Not Detected Not Detected [facility] This nucleic acid amplification test wa s developed and its performance characteristics determined by [facility]. Nucleic acid amplification tests include PCR and TMA. This test has not been FDA cleared or approved. This test has been authorized by FDA under an Emergency Use Authorization (EUA). This test is only authorized for the duration of time the declaration that circumstances exist justifying the authorization of the emergency use of in vitro diagnostic tests for detection of SARS-CoV-2 virus and/or diagnosis of COVID-19 infection under section 564(b)(1) of the Act, 21 U.S.C. 360bbb-3(b) (1), unless the authorization is terminated or revoked sooner. When diagnostic testing is negative, the possibility of a false negative result should be considered in the context of a patient's recent exposures and the presence of clinical signs and symptoms consistent with COVID-19. An individual without symptoms of COVID-19 and who is not shedding SARS-CoV-2 virus would expect to have a negative (not detected) result in this assay. Performed at: [facility] [address], [place], [place] [id number] Distribution Driver: Gabriela Mckinley PhD, Phone: [phone] ID Date Data Source [id number] 09/21/2020 12:35:00 PM EST [facility] Name Value Range Interpretation Code Description Data Elizabeth rce(s) Supporting Document(s) SARS coronavirus 2 RNA [facility] This lab was ordered by [facility] and reported by [facility]. ID Date Data Source [id number] 09/22/2020 10:11:00 PM EST [facility] Name Value Range Interpretation Code Description Data Elizabeth rce(s) Supporting Document(s) COVID 19 Not Detected Not Detected [facility] This nucleic acid amplification test wa s developed and its performance characteristics determined by [facility]. Nucleic acid amplification tests include PCR and TMA. This test has not been FDA cleared or approved. This test has been authorized by FDA under an Emergency Use Authorization (EUA). This test is only authorized for the duration of time the declaration that circumstances exist justifying the authorization of the emergency use of in vitro diagnostic tests for detection of SARS-CoV-2 virus and/or diagnosis of COVID-19 infection under section 564(b)(1) of the Act, 21 U.S.C. 360bbb-3(b) (1), unless the authorization is terminated or revoked sooner. When diagnostic testing is negative, the possibility of a false negative result should be considered in the context of a patient's recent exposures and the presence of clinical signs and symptoms consistent with COVID-19. An individual without symptoms of COVID-19 and who is not shedding SARS-CoV-2 virus would expect to have a negative (not detected) result in this assay. Performed at: [facility] [address] [id number] Distribution Driver: Criss Gil MD, Phone: [phone] ID Date Data Source [id number] 09/14/2020 12:17:00 PM EDT [facility] Name Value Range Interpretation Code Description Data Elizabeth rce(s) Supporting Document(s) SARS coronavirus 2 RNA [facility] This lab was ordered by [facility] and reported by [facility]. ID Date Data Source [id number] 09/16/2020 08:19:00 PM EST [facility] Name Value Range Interpretation Code Description Data Elizabeth rce(s) Supporting Document(s) COVID 19 Not Detected Not Detected [facility] Testing was performed using the tremaine(R ) SARS-CoV-2 test. This nucleic acid amplification test was developed and its performance characteristics determined by [facility]. Nucleic acid amplification tests include PCR and TMA. This test has not been FDA cleared or approved. This test has been authorized by FDA under an Emergency Use Authorization (EUA). This test is only authorized for the duration of time the declaration that circumstances exist justifying the authorization of the emergency use of in vitro diagnostic tests for detection of SARS-CoV-2 virus and/or diagnosis of COVID-19 infection under section 564(b)(1) of the Act, 21 U.S.C. 360bbb-3(b) (1), unless the authorization is terminated or revoked sooner. When diagnostic testing is negative, the possibility of a false negative result should be considered in the context of a patient's recent exposures and the presence of clinical signs and symptoms consistent with COVID-19. An individual without symptoms of COVID-19 and who is not shedding SARS-CoV-2 virus would expect to have a negative (not detected) result in this assay. Performed at: [address] [id number] Distribution Driver: Criss Gil MD, Phone: [phone] ID Date Data Source [id number] 09/10/2020 07:50:00 AM EDT [facility] Name Value Range Interpretation Code Description Data Elizabeth rce(s) Supporting Document(s) SARS coronavirus 2 RNA [facility] This lab was ordered by [facility] and reported by [facility]. ID Date Data Source [id number] 09/13/2020 10:19:00 AM EDT [facility] Name Value Range Interpretation Code Description Data Elizabeth rce(s) Supporting Document(s) COVID 19 Not Detected Not Detected [facility] Testing was performed using the tremaine(R ) SARS-CoV-2 test. This nucleic acid amplification test was developed and its performance characteristics determined by [employer] [facility]. Nucleic acid amplification tests include PCR and TMA. This test has not been FDA cleared or approved. This test has been authorized by FDA under an Emergency Use Authorization (EUA). This test is only authorized for the duration of time the declaration that circumstances exist justifying the authorization of the emergency use of in vitro diagnostic tests for detection of SARS-CoV-2 virus and/or diagnosis of COVID-19 infection under section 564(b)(1) of the Act, 21 U.S.C. 360bbb-3(b) (1), unless the authorization is terminated or revoked sooner. When diagnostic testing is negative, the possibility of a false negative result should be considered in the context of a patient's recent exposures and the presence of clinical signs and symptoms consistent with COVID-19. An individual without symptoms of COVID-19 and who is not shedding SARS-CoV-2 virus would expect to have a negative (not detected) result in this assay. Performed at: [address] [id number] Distribution Driver: Criss Gil MD, Phone: [phone] ID Date Data Source [id number] 08/15/2020 08:46:00 AM EDT [facility] Name Value Range Interpretation Code Description Data Elizabeth rce(s) Supporting Document(s) FREE T4 (FREE THYROXINE) 1.21 NG/DL 0.76-1.78 [facility] ID Date Data Source [id number] 08/15/2020 08:46:00 AM EDT [facility] Name Value Range Interpretation Code Description Data Elizabeth rce(s) Supporting Document(s) TSH 2.848 uIU/ML 0.470-4.200 N [facility] Patients should not be tested for 72 ho urs post fluorescein dye angiography. A false depression of result may occur. ID Date Data Source [id number] 07/31/2020 07:49:00 AM EDT [facility] Name Value Range Interpretation Code Description Data Elizabeth rce(s) Supporting Document(s) FREE T4 (FREE THYROXINE) 0.84 NG/DL 0.76-1.78 [facility] ID Date Data Source [id number] 07/31/2020 07:49:00 AM T [facility] Value Range Interpretation Code Description Data Elizabeth rce(s) Supporting Document(s) T3FREE 2.6 PG/ML 2.3-4.2 N [facility] ID Date Data Source [id number] 07/31/2020 07:49:00 AM EDT [facility] Value Range Interpretation Code Description Data Elizabeth rce(s) Supporting Document(s) TSH 0.905 uIU/ML 0.470-4.200 [facility] Patients should not be tested for 72 ho urs post fluorescein dye angiography. A false depression of result may occur. ID Date Data Source [id number] 07/26/2020 10:25:38 AM EDT [facility] Name Value Range Interpretation Code Description Data Elizabeth rce(s) Supporting Document(s) Progress Note [facility] GYXVQu3lOzRTYlEx04/BHUcfCVBsm0ZtETonXSf2XWnzUOBhA4GdIMJ1uJ4aTYZ5KIhOEoUyZhBcKOIw [facility] [file] AgICAgICAgICAgICAgICAgICAgICAgICAgICAgICAg GOMbZWWdOHSoETNqKJZyAHLaMSBkXHOiRBUpXXQnYQQaUQErWFMfPDTeXVMsIUPwQTYmJKLuVE9DDBDw ICAgICAgICAgICAgICAgICAgICAgICAgICAgICAgICAgICAgICAgICAgICAgICAgICAgICAgICAgICAg ICAgICAgICAgICAgICAgICAgICAgICAgICAgICAgIC TzBEVaPV2NQHQvFNQpPBTcZUElKXCbXMUwORFtPZSqGNWiVDMbHCJdSVNlNYWuYPPoWRGyZCGgZFWbGA VgJAPsENNvDFDvYYWdCSObZNIdFJPpQTXlRUUyYLEjCUPmWTLqBSPuRIWlWIPlIK9AHHQzQCRwZVOoNG AgICAgICAgICAgICAgICAgICAgICAgICAgICAgICAg CVBbTXOsNTUqBNMsYXRkPEQbVKYmJBZnRGMiJQUlPQMqQZMxMUEjSCIvSLXwOTJdQUAfODUoRZPsIM4A ICAgICAgICAgICAgICAgICAgICAgICAgICAgICAgICAgICAgICAgICAgICAgICAgICAgICAgICAgICAg ICAgICAgICAgICAgICAgICAgICAgICAgICAgICAgIC DwBBWaNCOcPB2IDAVaKFQoGXNmQOYqZQSsJCMzKJQgAXVnKTPqHHLuGKShBQIpPNYxBOVdQCAjXDLsBZ DvQQGtEFLvDJJmZQWyWDOcCXGmRUPcUTCrRRIdNUFyHSEhZHSeHGUzLDZzZKSiTDKuOR3NEZJbBCWcGH AgICAgICAgICAgICAgICAgICAgICAgICAgICAgICAg ICAgICAgICAgICAgICAgICAgICAgICAgICAgICAgICAgICAgICAgICAgICAgICAgICAgICAgICAgICAg SM7YGVCcOSKwGRJhDJMpKETrORDfJPCjAXJfFJWxKORjSWGaLAYcNEFmSOBcDRQbQYIaVENjCTVmNZPo ICAgICAgICAgICAgICAgICAgICAgICAgICAgICAgIC CuYEPdVTAbOQAgBY5PEHMaRRGjQHWhQUMyDKGhHMUbTEDhXOSvGVHwSBHwXFTrEZKzKAHwOXEwPLOaRH AvRRMmWYNrJATdODWmBSNmTUSoYVSxUJJvGRWoGKYfZPThYKQlYLKxALHkJZVfMBAqTEYsHU1BPX42aQ Col8M5ZIBhJP8sein/Jb8GZYqutoBpfQQuPF8FFoHd UE1iap4BRdRnDB7jrt0KAFiPWnNvQ7U3nMKzFEGsOCYKFeOwE99yZBrcFf83MVhsLATtSnXtFPp6Mh9F PbWcO8zeLPJcRoW5XBJnMxK3IUChYkP1JRWnCqBcKBDbYFQvLJJtKQXBZWJ8FMStHkEyDjKrSSDpWKub CTCBLHQbRYYlOuWiJfItKLCfWjImRBFHCA9PMxSrL1 UznJ49TIOyYXb+Lf4WJP0xk9WnTXw2KmLeZC1hco4IFJjCRxUfK0IcohX0KBJtNMXcIr4KGAVyJZXogP C8VqIsFDGWTjXqY4EruV54EKDUQx9+SVjeruUqYhcOTxLbUPGyl0TaUUa7TP4FKKOxNQq0bIWjRHCxU2 Qkn9QrOb19FIItVvraOjReeiVjRULOa0UqqRVnSG5V UEW1LRuvQVHdOfPlKYSiMUpeZNOASVcECcQdA1Rax3CrNoH3HIVaYgLlJTlpUCWySsK1CL37nRniQK5A HOYzGROgNF82RBBgLGZcYs8LTc1RIrWyVU2wnj8JETLpJQJsKhnSZqs2IPfwPO9BhIZrP2EcjVPod1aE QoRvZ2XIPJUwLDEhMw7OFGRuPbHpKTHxQEcfFL2dVO CuYJDHyJcisxR2RD6AXA5xplMsCW3MZvOzLu4fJe2RQaLpV1JiS3ClARSwNQNFNFthRY9ADDipGN8mVE 4Np0GNhVYwhZ6ein6VLKAgEKMqClxjvg8WTtifO0M5kJnyRKLxMRTuLZFKUVilCP3BYTDbSYU6VYR6SC VsKDUBOzSwR85hQH2JK3Ndy81oDtZ1DGFuWeGuOSbr KI44iXirvsMevFZvcSdmAP4WXg6+FUssddDvLzvYUbvhPHUZYuRtQNZPSoUoHOPoDLHcLDGmBvH7EqUt Um3MXZFpTXSrOWQmMlKwTSPgHCOhSHarYUHhQWB6TdO6HHTwWCSsAO7SClFbTSBwRRxdJDYfPZPoHZLn cx5PSHHxLNFbCPG2NhHaMGEwVJFoDIjsEETwIWT4IH Y5QUEmKKSrDM6OCcVhJMMqPGM8HLklVOTdURZbto1QKBJjCONlFyM6TIMsNLDjWUAbAIdnPSYzTXN4Vu q2JMXsPOBaEV2PBlDzJGLxGKV8GNCqNSWiSGQjqc5CHZEfSCFoTOA2TMXpGDUeSEXrGThtOGZhFBO3Vg B6GHZqWRLbHG2ABzIcMDNgEKL4YPDkSXSmSLGpxx1K HJSqURLiDkD7QQQpIWXcAXMjAGjqAXDdPEA1XUH0RXEdLASmXY8CAnXrPWClVDd3WKzkLLJkJVWksc2P NJHgNKAqGVQqYeRjOSPpXSYtPThvYOHhIALiFwZ9EHWuOFKlPM8PTaWhXPZsWwN0VwHeZLMiYEKfra6V LWGfNNWeIcygMKIjLUQcPLIoYZlcVUOcWGF5SZW8WE PzZNWeZL1OMtBsWLAuSymnNkZwWACgQKTxlm4IZENpTLUdQbRsSNBgHFPoSCHnJGmqDSHiPLU8Izh2TE HaBRNcVH4WHjAbBVCgFgz8RODdYYBwYHNakw9KNGDnUNOpGRh6VHGxIQKmBFOyZFazRVWpDNQpBWt3IX VcHKLzDR3ZIjPwYVTwBmW2SzYtGGFzLGWryf8YZZUq XQOzFeZhDnYbTJKnJBDwBVkpVRCeAHVsMgA4DYNuHZLpGZ4WUqHfJPQzOqUkTrRaXUWiYTVrwr2AMMKa MYHpExZ8DtYyKXZtEHTtHEbeBGQyOSPeFfZ6IRQkEOAcMB4DLzWrFOUnRQKcVHJmLXRdHMErvt3GEWNy TXI4KGVjIRHyEEJvSNDaEMjoBHIvRWD4BnU1SBLpKW UoBK8PAeWgCATfHKM4UpthCCJcFLYsae3JNMNbRSW0OyNuFWXePBVdHAImLFvnPGFfREZ4WRX6PSYrWR PuNW4AHzJmVRWsHVayLCjjQYHtUNNsvp8FZWDdGSP0KcIlTYSuLNVgFHBjKBydQUCdATO9JhGoJCWcHF PiTC3VJbLnAQJtQLvdEBmkTSFwQFBxpc9SQIBlSGK7 OBGkBLMoTYBzSNAsGQqfUJIyAKZ6YGh4MBRrBOIuMX5LEoWkUWmqCYUDSts6GTdsI5y8UUW0UZ3JI3Wp r7HvIOTqJKIOXAbdRY1csqPdJFYvRb7UN7fKJsykQZAdPqkfAUX4EFX5WGQ9DBWtDgCkClLuOnX6PROv Ji5wGCX4EJHwPKU3WZEzOllzCUV3DQRdKSHeZvBuQy mrDKTfYsFjND2GGh7UPuD9CWH3gBXwMp8UBGy1RoDHMiRuLC7ZUQf= ID Date Data Source [id number] 07/17/2020 06:24:00 PM EDT [facility] Name Value Range Interpretation Code Description Data Elizabeth rce(s) Supporting Document(s) SARS coronavirus 2 RNA [facility] This lab was ordered by [facility] and reported by [facility]. ID Date Data Source [id number] 07/19/2020 06:11:00 PM EDT [facility] Name Value Range Interpretation Code Description Data Elizabeth rce(s) Supporting Document(s) COVID 19 Not Detected Not Detected [facility] This nucleic acid amplification test wa s developed and its performance characteristics determined by [facility]. Nucleic acid amplification tests include PCR and TMA. This test has not been FDA cleared or approved. This test has been authorized by FDA under an Emergency Use Authorization (EUA). This test is only authorized for the duration of time the declaration that circumstances exist justifying the authorization of the emergency use of in vitro diagnostic tests for detection of SARS-CoV-2 virus and/or diagnosis of COVID-19 infection under section 564(b)(1) of the Act, 21 U.S.C. 360bbb-3(b) (1), unless the authorization is terminated or revoked sooner. When diagnostic testing is negative, the possibility of a false negative result should be considered in the context of a patient's recent exposures and the presence of clinical signs and symptoms consistent with COVID-19. An individual without symptoms of COVID-19 and who is not shedding SARS-CoV-2 virus would expect to have a negative (not detected) result in this assay. Performed at: RN [facility] [address] [id number] Distribution Driver: Criss Gil MD, Phone: [phone] ID Date Data Source [id number] 06/20/2020 11:38:00 [place] [address] HEALTH INFORMATION MANAGEMENT ED/UC Physician Report : [id number] Signed Patient: Madhavi Montalvo Acct:[id number] Unit: [id number] : 1980 Arrival Date: 06/20/20 Age/Sex: 39 / F Arrival Time: 1951 Copies to: PCP,No General Adult HPI/ROS General Chief Complaint: Physical Examination Stated Complaint: All Over Body Pain Stated Complaint: All Over Body Pain Source: Patient, EMS, Old records reviewed, RN/, RN notes reviewed and I have reviewed available A ncillary/nursing staff documentation Mode of arrival: Ambulatory Limitations: Reports No limitations History of Present Illness Initial Comments: 39-year-old female here complaining of entire body pain. She he is requesting narcotics for her pain patient has a longstanding history of narcotic abuse. Time interval: Unknown Location: Reports Other (Generalized body pain) Radiation: Reports Non-radiation Quality: Reports Aching Consistency: Reports Constant Improves with: Reports None Worsens with: Reports None Associated symptoms: Reports Denies other symptoms Related Data LMP (females 10-50): Unknown Home Medications Medication Instructions Recorded Multi-Day Plus Minerals 1 tab PO DAILY 03/28/20 Spiriva with HandiHaler 1 cap INHALATION DAILY 03/28/20 albuterol sulfate 2 puff INHALATION QID PRN 03/28/20 budesonide-formoterol [Symbicort] 2 puff INHALATION BID 03/28/20 buspirone 10 mg PO BID 03/28/20 folic acid 1 mg PO DAILY 03/28/20 hydroxychloroquine [Plaquenil] 200 mg PO DAILY 03/28/20 levetiracetam [Keppra] 500 mg PO BID 03/28/20 metoprolol tartrate [Lopressor] 50 mg PO Q12H 03/28/20 thiamine HCl (vitamin B1) 100 mg PO DAILY 03/28/20 Saccharomyces boulardii [Florastor] 250 mg PO BID #20 cap 04/02/20 baclofen 10 mg PO BID 30 Days #60 tab 06/12/20 calcitriol 0.25 mcg PO HS 30 Days #30 cap 06/12/20 cyanocobalamin (vitamin B-12) 1,000 mcg PO TID 30 Days #180 tab 06/12/20 [Vitamin B-12] doxepin 25 mg PO BID 30 Days #60 cap 06/12/20 levothyroxine 25 mcg PO HS 30 Days #30 tab 06/12/20 liothyronine 5 mcg PO HS 30 Days #30 tab 06/12/20 magnesium oxide 400 mg PO PC LUNCH 30 Days #30 tab 06/12/20 pentoxifylline 400 mg PO PC BREAKFAST SUPPER 30 06/12/20 Days #60 tab trazodone 100 mg PO HS 30 Days #30 tab 06/12/20 zinc sulfate [Zinc-220] 220 mg PO PC SUPPER 30 Days #30 cap 06/12/20 Allergies azithromycin Allergy (Verified 06/20/20 20:08) bupropion Allergy (Verified 06/20/20 20:08) cephalexin Allergy (Verified 06/20/20 20:08) erythromycin base Allergy (Verified 06/20/20 20:08) eszopiclone [From Lunesta] Allergy (Verified 06/20/20 20:08) Fish Containing Products Allergy (Verified 06/20/20 20:08) Latex, Natural Rubber Allergy (Verified 06/20/20 20:08) levofloxacin Allergy (Verified 06/20/20 20:08) lisinopril Allergy (Verified 06/20/20 20:08) metoclopramide Allergy (Verified 06/20/20 20:08) omeprazole Allergy (Verified 06/20/20 20:08) Sulfa (Sulfonamide Antibiotics) Allergy (Verified 06/20/20 20:08) NSAIDS (Non-Steroidal Anti-Inflamma Adverse Reaction (Verified 06/20/20 20:08) history gastric bypass oranges Adverse Reaction (Uncoded 06/20/20 20:08) Review of Systems Review of Systems All systems: Reviewed and negative except as stated in HPI. Immunizations Tetanus Status: Unknown Social History Social History Other: currently living at a fdc following 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, Marijuana and Methamphetamine Occupation: disabled Lives with: Reports Half-Way PMH/PSH PMH/PSH Medical History Acute respiratory failure with hypoxia Adverse reaction to drug Anemia Anorexia Asthma Chronic headaches Chronic indwelling Martínez catheter Fibromyalgia HTN (hypertension) IBS (irritable bowel syndrome) Major depressive disorder Muscle wasting Muscle weakness Obstructive and reflux uropathy Other abnormalities of gait and mobility Pseudoseizures Speech and language deficits Systemic lupus Wernicke encephalopathy Surgical History Gastric bypass status for obesity (Surgical) Family History Other Unknown family medical history Physical Exam Physical Exam General appearance: Alert and In no apparent distress Head Head Exam: Atraumatic and Normcephalic Eye Eye Exam: Conjunctiva normal and Sclera normal ENT ENT Exam: External ear normal and Nose normal Mouth/Throat Exam: Normal inspection Dental Exam: Normal inspection Cardiac Cardiac: Present: Regular rate and rhythm Murmur: Present: None Lung/Chest Lung/Chest Exam: Clear and Normal Exchange Abdomen Abdominal Exam: Bowel sounds normal, Soft and Nondistended Back Back Exam: No Deformity and Skin Normal Upper Extremity Shoulder Exam: normal inspection (bilat) ARM Exam: normal inspection (bilat) Lower Extremity Lower Extremity Location: Ankle, Femur, Hip and Knee Lower Extermity Normal: Full ROM (bilat) Neuro Neuro Normal: Alert, Oriented x 3 and Gait normal Psych Psych Normal: Normal Affect Skin Skin exam: Dry, Intact and Warm Distribution: generalized Course Course Course Narrative: Exam. Long discussion with patient regarding pain management. Advised will not prescribe narcotics. Will give short course of steroids to see if that helps her pain. Advised cricket discussed with her PCP perhaps seen pain management if her symptoms persist. Vital Signs Vital Signs status: Stable Vital signs: Vital Signs 06/20/20 20:02 06/20/20 22:45 Temperature 98.4 F Pulse Rate 85 68 Respiratory Rate 18 16 Blood Pressure 135/88 111/72 O2 Sat by Pulse Oximetry 95 98 Medical Decision Making/CCT EKG Interpretation Complete If EKG was done has it been read?: N/A Lab Data Lab Data Labs reviewed: No Hyperglycemia Identified Hyperglycemia identified in patient?: No Medication/Allergies Review Medication/Allergies Review Home Medication and Allergy review: I reviewed patients allergies, home medications, and new prescriptions Blood Pressure Blo od pressure: Pt BP not elevated Critical Care Time Critical Care Time: No Discharge Plan Disposition Clinical Impression: Chronic pain disorder Provider stated Dispo: Discharged Condition: Stable Instructions: Chronic Pain (ED) Activity Restrictions/Additional Instructions: You will need to see pain management for further evaluation and management of your chronic pain. Prescriptions: No Action albuterol sulfate 90 mcg/actuation Hfa Aerosol Inhaler 2 puff INHALATION QID PRN (Reason: Wheezing) RF: 0 levetiracetam [Keppra] 500 mg Tablet 500 mg PO BID RF: 0 thiamine HCl (vitamin B1) 100 mg Tablet 100 mg PO DAILY RF: 0 buspirone 10 mg Tablet 10 mg PO BID RF: 0 metoprolol tartrate [Lopressor] 50 mg Tablet 50 mg PO Q12H RF: 0 folic acid 1 mg Tablet 1 mg PO DAILY RF: 0 hydroxychloroquine [Plaquenil] 200 mg Tablet 200 mg PO DAILY RF: 0 Spiriva with HandiHaler 18 mcg Capsule, W/Inhalation Device 1 cap INHALATIO N DAILY RF: 0 budesonide-formoterol [Symbicort] 160-4.5 mcg/actuation Hfa Aerosol Inhaler 2 puff INHALATION BID RF: 0 Multi-Day Plus Minerals 18 mg iron-400 mcg-25 mcg Tablet 1 tab PO DAILY RF: 0 Saccharomyces boulardii [Florastor] 250 mg Capsule 250 mg PO BID Qty: 20 RF: 0 doxepin 25 mg Capsule 25 mg PO BID 30 Days Qty: 60 RF: 0 liothyronine 5 mcg Tablet 5 mcg PO HS 30 Days Qty: 30 RF: 0 pentoxifylline 400 mg Tablet Extended Release 400 mg PO PC BREAKFAST SUPPER 30 Days Qty: 60 RF: 0 levothyroxine 25 mcg Tablet 25 mcg PO HS 30 Days Qty: 30 RF: 0 magnesium oxide 400 mg (241.3 mg magnesium) Tablet 400 mg PO PC LUNCH 30 Days Qty: 30 RF: 0 cyanocobalamin (vitamin B-12) [Vitamin B-12] 500 mcg Tablet 1,000 mcg PO TID 30 Days Qty: 180 RF: 0 trazodone 100 mg Tablet 100 mg PO HS 30 Days Qty: 30 RF: 0 baclofen 10 mg Tablet 10 mg PO BID 30 Days Qty: 60 RF: 0 calcitriol 0.25 mcg Capsule 0.25 mcg PO HS 30 Days Qty: 30 RF: 0 zinc sulfate [Zinc-220] 220 (50) mg Capsule 220 mg PO PC SUPPER 30 Days Qty: 30 RF: 0 Referrals: PCP,No [Primary Care Provider] - Patient agreeable to discharge: Patient/Guardian understands and is agreeable to discharge plan Provider in triage note Vital Signs Vital Signs: I O (Last 24 Hours) 06/18/20 06/19/20 06/20/20 23:59 23:59 23:59 Other: Weight 75 kg Vital Signs (Last 8 Hours) Temp Pulse Resp BP Pulse Ox 06/20/20 22:45 68 16 111/72 98 06/20/20 20:02 98.4 F 85 18 135/88 95 Date/Time <<Signature on File>> Initializing User: Radha Malin NP 06/20/20 5913 Signed by: Radha Malin NP 06/26/20 2763 Larry Arnold MD 06/26/20 8108 Name Value Range Interpretation Code Description Data Elizabeth rce(s) Supporting Document(s) ID Date Data Source [id number] 06/18/2020 07:55:00 AM [facility] Name Value Range Interpretation Code Description Data Elizabeth rce(s) Supporting Document(s) WHITE BLOOD COUNT 5.31 10^3/uL 4.00-10.50 N [facility] RED BLOOD COUNT 3.87 10^6/uL 3.90-5.20 L [facility] HEMOGLOBIN 11.2 G/DL 11.5-15.6 L [facility] HEMATOCRIT 33.0 % 35.0-46.0 L [facility] MCV 85.3 FL 80.0-100.0 N [facility] MCH 28.9 PG 27.0-34.0 N [facility] MCHC 33.9 G/DL 32-36 N [facility] RDW 14.4 % 11.5-14.5 N [facility] PLATELET COUNT 212 10^3/uL 130-400 N [facility] MPV 11.8 FL 8.7-13.2 N [facility] GRAN % (AUTO) 48.2 % 42.0-75.0 N [facility] LYMPH % (AUTO) 40.5 % 20.0-51.0 N [facility] MONO % (AUTO) 6.8 % 2.0-15.0 N [facility] EOS % (AUTO) 3.0 % 0.0-11.0 N [facility] BASO % (AUTO) 1.3 % 0.0-2.0 N [facility] IG % (AUTO) 0.2 % 1.00-5.00 [facility] IG # (AUTO) 0.0 10^3/uL <0.5 [facility] GRAN # (AUTO) 2.56 10^3/uL 1.50-6.50 N [facility] LYMPH # (AUTO) 2.2 k/uL 1.0-5.0 N [facility] MONO # (AUTO) 0.36 k/uL 0.20-1.50 N [facility] EOS # (AUTO) 0.16 10^3/uL 0.00-1.10 N [facility] BASO # (AUTO) 0.07 10^3/uL 0.00-0.20 N [facility] ID Date Data Source [id number] 06/18/2020 08:23:00 AM EDT [facility] Name Value Range Interpretation Code Description Data Elizabeth rce(s) Supporting Document(s) SODIUM 136 MEQ/L 135-145 N [facility] POTASSIUM 4.4 MEQ/L 3.5-5.3 N [facility] CHLORIDE 101 MEQ/L 94-110 N [facility] CARBON DIOXIDE 25 MEQ/L 22-33 N [facility] ANION GAP 14 5-16 [facility] BLOOD UREA NITRO 9 MG/DL 7-25 N [facility] CREATININE 0.6 MG/DL 0.6-1.4 [facility] GFR > 90.0 ML/MIN [facility] Stage G1 - Normal or high kidney functi on The GFR is an estimate of the Glomerular Filtration Rate. It is an aid to assess a patient's renal function. It is not a conclusive diagnosis of kidney disease. GFR normal is >=90 The MDRD GFR calculation is considered valid between the ages of 18 and 75 years only. BUN/CREAT RATIO 15 8-36 N [facility] GLUCOSE 79 MG/DL 70-100 [facility] CA 8.9 MG/DL 8.7-10.5 [facility] BILIRUBIN,TOTAL 0.3 MG/DL 0.1-1.3 [facility] AST 24 U/L 5-40 [facility] ALT 37 U/L 5-48 [facility] ALKALINE PHOSPHATASE 86 U/L 40-140 [facility] alth TOTAL PROTEIN 5.2 G/DL 5.9-8.3 L [facility] ALBUMIN 3.6 G/DL 3.0-5.1 [facility] GLOBULIN 1.6 G/DL 1.5-3.5 [facility] ALB/GLOB RATIO 2.3 G/DL 1.0-3.0 [facility] ID Date Data Source [id number] 06/18/2020 08:23:00 AM [facility] Name Value Range Interpretation Code Description Data Elizabeth rce(s) Supporting Document(s) MAGNESIUM 1.7 mg/dl 1.8-2.4 L [facility] ID Date Data Source [id number] 06/18/2020 08:23:00 AM [facility] Name Value Range Interpretation Code Description Data Elizabeth rce(s) Supporting Document(s) FREE T4 (FREE THYROXINE) 1.02 NG/DL 0.76-1.78 N [facility] ID Date Data Source [id number] 06/18/2020 08:23:00 AM [facility] Name Value Range Interpretation Code Description Data Elizabeth rce(s) Supporting Document(s) T3FREE 3.4 PG/ML 2.3-4.2 N [facility] ID Date Data Source [id number] 06/18/2020 08:23:00 AM EDT [facility] Name Value Range Interpretation Code Description Data Elizabeth rce(s) Supporting Document(s) TSH 0.843 uIU/ML 0.470-4.200 N [facility] Patients should not be tested for 72 ho urs post fluorescein dye angiography. A false depression of result may occur. ID Date Data Source [id number] 06/13/2020 07:26:00 AM EDT [facility] Name Value Range Interpretation Code Description Data Elizabeth rce(s) Supporting Document(s) WHITE BLOOD COUNT 6.26 10^3/uL 4.00-10.50 N [facility] ealth RED BLOOD COUNT 3.53 10^6/uL 3.90-5.20 L [facility] th HEMOGLOBIN 10.2 G/DL 11.5-15.6 L [facility] HEMATOCRIT 30.1 % 35.0-46.0 L [facility] MCV 85.3 FL 80.0-100.0 N [facility] MCH 28.9 PG 27.0-34.0 N [facility] MCHC 33.9 G/DL 32-36 N [facility] RDW 14.4 % 11.5-14.5 N [facility] PLATELET COUNT 259 10^3/uL 130-400 N [facility] MPV 11.6 FL 8.7-13.2 N [facility] GRAN % (AUTO) 42.7 % 42.0-75.0 N [facility] LYMPH % (AUTO) 43.6 % 20.0-51.0 N [facility] MONO % (AUTO) 8.6 % 2.0-15.0 N [facility] EOS % (AUTO) 3.7 % 0.0-11.0 N [facility] BASO % (AUTO) 1.1 % 0.0-2.0 N [facility] IG % (AUTO) 0.3 % 1.00-5.00 [facility] IG # (AUTO) 0.0 10^3/uL <0.5 [facility] GRAN # (AUTO) 2.67 10^3/uL 1.50-6.50 N [facility] LYMPH # (AUTO) 2.7 k/uL 1.0-5.0 N [facility] MONO # (AUTO) 0.54 k/uL 0.20-1.50 N [facility] EOS # (AUTO) 0.23 10^3/uL 0.00-1.10 N [facility] BASO # (AUTO) 0.07 10^3/uL 0.00-0.20 N [facility] ID Date Data Source [id number] 06/13/2020 07:36:00 AM EDT [facility] Name Value Range Interpretation Code Description Data Elizabeth rce(s) Supporting Document(s) SODIUM 135 MEQ/L 135-145 N [facility] POTASSIUM 4.2 MEQ/L 3.5-5.3 N [facility] CHLORIDE 102 MEQ/L 94-110 N [facility] CARBON DIOXIDE 27 MEQ/L 22-33 N [facility] ANION GAP 10 5-16 N [facility] BLOOD UREA NITRO 14 MG/DL 7-25 N [facility] CREATININE 0.7 MG/DL 0.6-1.4 [facility] GFR > 90.0 ML/MIN [facility] Stage G1 - Normal or high kidney functi on The GFR is an estimate of the Glomerular Filtration Rate. It is an aid to assess a patient's renal function. It is not a conclusive diagnosis of kidney disease. GFR normal is >=90 The MDRD GFR calculation is considered valid between the ages of 18 and 75 years only. BUN/CREAT RATIO 20 8-36 N [facility] GLUCOSE 74 MG/DL 70-100 [facility] CA 8.7 MG/DL 8.7-10.5 [facility] BILIRUBIN,TOTAL 0.2 MG/DL 0.1-1.3 N [facility] AST 17 U/L 5-40 N [facility] ALT 27 U/L 5-48 N [facility] ALKALINE PHOSPHATASE 89 U/L 40-140 [facility] alth TOTAL PROTEIN 4.9 G/DL 5.9-8.3 L [facility] ALBUMIN 3.6 G/DL 3.0-5.1 N [facility] GLOBULIN 1.3 G/DL 1.5-3.5 L [facility] ALB/GLOB RATIO 2.8 G/DL 1.0-3.0 N [facility] ID Date Data Source [id number] 06/07/2020 11:19:00 PM EDT [facility] Name Value Range Interpretation Code Description Data Elizabeth rce(s) Supporting Document(s) SARS-CoV-2 (COVID-19) N gene [Presence] in Nasopharynx by MARIAN with probe detection [facility] This lab was ordered by [facility] and reported by [facility]. ID Date Data Source [id number] 06/08/2020 02:24:00 PM EDT [facility] COVID Reason [place] Admission Priority #4 Name Value Range Interpretation Code Description Data Elizabeth rce(s) Supporting Document(s) COVID 19 (RHEONIX) NOT-DETECTED NOTDETECTED [facility] The COVID testing using the Rheonix manuel lyzer was developed for the purpose of diagnostic testing during a declared public health emergency and has Emergency Use Authorization (EUA) from the FDA. The possibility of a false negative result should be considered if the patient's recent exposures or clinical presentation indicate that COVID-19 is likely, and diagnostic tests for other causes of illness (e.g., other respiratory illness) are negative. If COVID-19 is still suspected based on exposure history together with other clinical findings, re-testing should be considered by healthcare providers in consultation with public health authorities. ID Date Data Source [id number] 06/07/2020 11:10:00 [place] [address] HEALTH INFORMATION MANAGEMENT Consultation : [phone] Signed Patient: Madhavi Montalvo Acct:[id number] it: [id number] : 1980 Loc: ED Room/Bed: Age/Sex: 39 / F ADM Date: 06/07/20 cc: Justin Bone Jr, MD PCM Consult Date of Consult: 06/07/20 Reason for Consult: Inpatient behavioral health H P /medical clearance Attending requesting consult: Colon Hospitalist attending in charge: Smitha Lino History of Present Illness: 39-year-old female past medical history of asthma, chronic headache, lupus, IBS, fibromyalgia, anoxic brain injury here for psych eval. Please refer to ED provider notes for full details of HPI. Hospital Service called for consult for transition to inpatient Behavioral Health for further management. Allergies azithromycin Allergy (Verified 05/09/20 02:34) bupropion Allergy (Verified 05/09/20 02:34) cephalexin Allergy (Verified 05/09/20 02:34) erythromycin base Allergy (Verified 05/09/20 02:34) eszopiclone [From Lunesta] Allergy (Verified 05/09/20 02:34) Fish Containing Products Allergy (Verified 05/09/20 02:34) Latex, Natural Rubber Allergy (Verified 05/09/20 02:34) levofloxacin Allergy (Verified 05/09/20 02:34) lisinopril Allergy (Verified 05/09/20 02:34) metoclopramide Allergy (Verified 05/09/20 02:34) omeprazole Allergy (Verified 05/09/20 02:34) Sulfa (Sulfonamide Antibiotics) Allergy (Verified 05/09/20 02:34) NSAIDS (Non-Steroidal Anti-Inflamma Adverse Reaction (Verified 05/09/20 02:34) history gastric bypass oranges Adverse Reaction (Uncoded 05/09/20 02:34) Home Medications Medication Instructions Recorded Multi-Day Plus Minerals 1 tab PO DAILY 03/28/20 Spiriva with HandiHaler 1 cap INHALATION DAILY 03/28/20 Trexall 7.5 mg PO Q7DAYS 03/28/20 acetaminophen [Tylenol] 650 mg PO Q6H PRN MDD 3 Grams 03/28/20 albuterol sulfate 2 puff INHALATION QID PRN 03/28/20 baclofen 5 mg PO BID PRN 03/28/20 bisacodyl 10 mg PA DAILY PRN 03/28/20 budesonide-formoterol [Symbicort] 2 puff INHALATION BID 03/28/20 buspirone 10 mg PO BID 03/28/20 calcium carbonate-vitamin D3 1 tab PO DAILY 03/28/20 [Calcium 500 With D] docusate sodium [Docusil] 100 mg PO DAILY 03/28/20 duloxetine [Cymbalta] 60 mg PO DAILY 03/28/20 escitalopram oxalate [Lexapro] 5 mg PO DAILY 03/28/20 folic acid 1 mg PO DAILY 03/28/20 gabapentin [Neurontin] 200 mg PO TID 03/28/20 hydroxychloroquine [Plaquenil] 200 mg PO DAILY 03/28/20 levetiracetam [Keppra] 500 mg PO BID 03/28/20 metoprolol tartrate [Lopressor] 50 mg PO Q12H 03/28/20 pantoprazole [Protonix] 40 mg PO DAILY 03/28/20 sennosides [Senna Lax] 17.2 mg PO BID 03/28/20 sorbitol 30 ml PO ONCE 03/28/20 sumatriptan succinate [Imitrex] See Rx Instructions .ROUTE 03/28/20 .COMPLEX PRN thiamine HCl (vitamin B1) 100 mg PO DAILY 03/28/20 trazodone 50 mg PO HS 03/28/20 Saccharomyces boulardii [Florastor] 250 mg PO BID #20 cap 04/02/20 amoxicillin-pot clavulanate 1 tab PO BID #12 tab 04/02/20 hydrocodone- acetaminophen 1 tab PO Q6HPRN PRN #1 tab MDD 4 04/02/20 Social History Other: currently living at a fdc following 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 Occupation: disabled Lives with: Reports Half-Way PMH/PSH PMH/PSH Medical History Acute respiratory failure with hypoxia Adverse reaction to drug Anemia Anorexia Asthma Chronic headaches Chronic indwelling Martínez catheter Fibromyalgia HTN (hypertension) IBS (irritable bowel syndrome) Major depressive disorder Muscle wasting Muscle weakness Obstructive and reflux uropathy Other abnormalities of gait and mobility Pseudoseizures Speech and language deficits Systemic lupus Wernicke encephalopathy Surgical History Gastric bypass status for obesity (Surgical) Family History Other Unknown family medical history Subjective-consult Review of Systems: All other review of systems were negative except for those mentioned in above HPI. Objective Vitals and I O: I O (Last 24 Hours) 06/05/20 06/06/20 06/07/20 23:59 23:59 23:59 Other: Weight 71 kg Vital Signs (Last 8 Hours) Temp Pulse Resp BP Pulse Ox 06/07/20 20:22 98.1 F 65 18 106/66 98 General: Alert, Cooperative and Oriented x3 HEENT: Atraumatic, EOMI, Normocephalic and MARIO Neck: Supple; negative Stiffness, JVD, Thyromegaly and Adenopathy Lungs: Clear to auscultation and Normal Air Movement; negative Crackles, Rhonchi and Wheezing Cardiovascular: Capillary refill<2 second, Normal Rate, Normal S1, Normal S2 and Regular rhythm; negative Lower extremity edema and Murmurs Abdomen: Normal Active Bowel Sound and Soft; negative Distended, Tenderness, Guarding and Rebound CVA tenderness Extremities: negative Edema and Tenderness Extremities: negative Edema and Tenderness Skin: gas meter mechanic reviewed and agreed with; negative Lesions and Rashes Neurological: Awake/Oriented, Cranial nerves 3-12 NL, Sensation intact and Strength at 5/5 X4 ext; negative Drowsy, Lethargic and Romberg Psych/Mental Status: Alert, Oriented x 3 and Depressed; negative Agitation Result Diagrams: 06/07/20 20:29 06/07/20 20:29 Lab Results: Laboratory (Last 12 hours Results) 06/07/20 06/07/20 06/07/20 20:42 20:42 20:42 WBC RBC Hgb Hct MCV MCH MCHC RDW Plt Count MPV Gran % (Auto) Lymph % (Auto) [place] % (Auto) Eos % (Auto) Baso % (Auto) Nucleat RBC Rel Count Gran # Lymph # (Auto) [place] # (Auto) Eos # (Auto) Baso # (Auto) Immature Gran # (Auto) Absolute Nucleated RBC Immature Gran % Sodium Potassium Chloride Carbon Dioxide Anion Gap BUN Creatinine Estimated GFR (MDRD) BUN/Creatinine Ratio Glucose Calcium Total Bilirubin AST ALT Alkaline Phosphatase Total Protein Albumin Globulin Albumin/Globulin Ratio Beta HCG Screen NEGATIVE Urine Color YELLOW Urine Appearance CLEAR Urine pH 6.0 Specific [place] (Man) 1.004 Urine Protein NEGATIVE Urine Glucose (UA) NEGATIVE Urine Ketones NEGATIVE Urine Occult Blood NEGATIVE Urine Nitrate NEGATIVE Urine Bilirubin NEGATIVE Urine Urobilinogen 0.2-1.0 Ur Leukocyte Esterase NEGATIVE Salicylates Urine Opiates Screen POS Ur Heroin Screen NEG Acetaminophen Ur Barbiturates Screen NEG Ur Phencyclidine Scrn NEG Ur Amphetamines Screen NEG U Benzodiazepines Scrn NEG Urine Cocaine Screen NEG U Marijuana (THC) Screen NEG Plasma/Serum Alcohol Type SERUM 06/07/20 06/07/20 20:29 20:29 WBC 6.54 RBC 3.52 L Hgb 10.2 L Hct 30.1 L MCV 85.5 MCH 29.0 MCHC 33.9 RDW 14.4 Plt Count 287 MPV 10.8 Gran % (Auto) 46.6 Lymph % (Auto) 43.3 [place] % (Auto) 5.8 Eos % (Auto) 2.9 Baso % (Auto) 1.2 Nucleat RBC Rel Count N ot Reportable Gran # 3.05 Lymph # (Auto) 2.8 [place] # (Auto) 0.38 Eos # (Auto) 0.19 Baso # (Auto) 0.08 Immature Gran # (Auto) 0.0 Absolute Nucleated RBC Not Reportable Immature Gran % 0.2 Sodium 135 Potassium 4.5 Chloride 104 Carbon Dioxide 25 Anion Gap 11 BUN 12 Creatinine 0.7 Estimated GFR (MDRD) > 90.0 BUN/Creatinine Ratio 17 Glucose 89 Calcium 8.4 L Total Bilirubin < 0.2 AST 20 ALT 28 Alkaline Phosphatase 95 Total Protein 5.0 L Albumin 3.4 Globulin 1.6 Albumin/Globulin Ratio 2.1 Beta HCG Screen Urine Color Urine Appearance Urine pH Specific [place] (Man) Urine Protein Urine Glucose (UA) Urine Ketones Urine Occult Blood Urine Nitrate Urine Bilirubin Urine Urobilinogen Ur Leukocyte Esterase Salicylates < 3.0 Urine Opiates Screen Ur Heroin Screen Acetaminophen 5.2 L Ur Barbiturates Screen Ur Phencyclidine Scrn Ur Amphetamines Screen U Benzodiazepines Scrn Urine Cocaine Screen U Marijuana (THC) Screen Plasma/Serum Alcohol 0.00 Type Consult Assessment/Plan (1) Depression with suicidal ideation: Code(s): F32.9 - Major depressive disorder, single episode, unspecified; R45.851 - Suicidal ideations Status: Acute Present on Admission: Yes Plan: Plan as per psych. Neuro exam is benign including cranial nerves 2-12 grossly intact. No focal deficits. Cerebellar testing within normal limits. Patient deemed medically cleared to transfer for inpatient management of above problems. 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 b.i.d. (5) COPD (chronic obstructive pulmonary disease): Code(s): J44.9 - Chronic obstructive pulmonary disease, unspecified Qualifiers: COPD type: chronic bronchitis Chronic bronchitis type: simple Qualified Code(s): J41.0 - Simple chronic bronchitis Status: Chronic Present on Admission: Yes Plan: chronic, stable No signs of acute exacerbation Recommend continue patient's home dose Symbicort, albuterol p.r.n., Spiriva MIPS MIPS REVIEWED Did you review MIPS this visit?: Yes Tobacco Use:Preventative Care/Screening Performance Met:: 1036F: P t screened for tobacco use, identified as non-user of tobacco Current Medications in Medical Record Performance Met:: G8427: Current Medications Documented Care Plan Performance Met:: 1123F:Adv Care plan discussed and surrogate decision maker documented. Hospitalist Charges Worksheet Subject to change for billing criteria Did you complete your Hospitalist charges for this visit?: Yes Inpt Consult [id number] Cons Level 4: Yes Signed By:Justin Bone Jr, MD <<Signature on File>> Signed Date/Time: 06/07/202317 Co-Signer: Co-Signed Date/Time: Initializing User: Justin Bone Jr, MD 0 06/07/202309 09 09 Name Value Range Interpretation Code Description Data Elizabeth rce(s) Supporting Document(s) ID Date Data Source [id number] 06/07/2020 09:24:00 PM EDT [facility] Name Value Range Interpretation Code Description Data Elizabeth rce(s) Supporting Document(s) COLOR,UR YELLOW YELLOW [facility] APPEARANCE,UR CLEAR CLEAR [facility] PH,UR 6.0 5.0-8.0 [facility] SPECIFIC GRAVITY,UR 1.004 1.002-1.035 N [facility] PROTEIN,UR NEGATIVE MG/DL NEGATIVE [facility] GLUCOSE, UR NEGATIVE MG/DL NEGATIVE [facility] KETONES,UR NEGATIVE MG/DL NEGATIVE [facility] OCCULT BLOOD,UR NEGATIVE NEGATIVE [facility] NITRATE,UR NEGATIVE NEGATIVE [facility] LEUKOCYTE ESTERASE ,UR NEGATIVE NEGATIVE [facility] BILIRUBIN,UR NEGATIVE NEGATIVE [facility] UROBILINOGEN,UR 0.2-1.0 EU MG/DL NEG-0-1.0 [facility] ID Date Data Source [id number] 06/07/2020 09:30:00 PM EDT [facility] Name Value Range Interpretation Code Description Data Elizabeth rce(s) Supporting Document(s) OPIATE SCREEN POS NEGATIVE [facility] Minimum Detectable Limit is 300 ng/mL. BARBITURATE SCREEN NEG NEGATIVE [facility] Minimum Detectable Limit is 300 ng/mL. PHENCYCLIDINE SCREEN NEG NEGATIVE [facility] Minimum Detectable Limit is 25 ng/mL. AMPHETAMINE SCREEN NEG NEGATIVE [facility] Minimum Detectable Limit is 1000 mg/mL. BENZODIAZEPINE SCREEN NEG NEGATIVE [facility] Mininum Detectable Limit is 300 ng/mL. COCAINE SCREEN NEG NEGATIVE [facility] Minimum Detectable Limit is 300 ng/mL. CANNABINOID SCREEN NEG NEGATIVE [facility] Minimum Detectable limit is 50 ng/dL. HEROIN SCREEN NEG NEGATIVE [facility] Minimum Detectable limit is 10 ng/dL. A ll POSITIVE or BORDER results are unconfirmed. Please contact the laboratory if a reference testing confirmation is needed. ID Date Data Source [id number] 06/07/2020 09:32:00 PM EDT [facility] Has Patient Fasted For The Past 12 Hour s? N Has Patient Fasted For The Past 12 Hour s? N Has Patient Fasted For The Past 12 Hour s? N Has Patient Fasted For The Past 12 Hour s? N Has Patient Fasted For The Past 12 Hour s? N Has Patient Fasted For The Past 12 Hour s? N Has Patient Fasted For The Past 12 Hour s? N Has Patient Fasted For The Past 12 Hour s? N Has Patient Fasted For The Past 12 Hour s? N Name Value Range Interpretation Code Description Data Elizabeth rce(s) Supporting Document(s) HCG QUALITATIVE SPECIMEN SERUM [facility] ID Date Data Source [id number] 06/07/2020 09:32:00 PM [facility] Has Patient Fasted For The Past 12 Hour s? N Has Patient Fasted For The Past 12 Hour s? N Has Patient Fasted For The Past 12 Hour s? N Has Patient Fasted For The Past 12 Hour s? N Has Patient Fasted For The Past 12 Hour s? N Has Patient Fasted For The Past 12 Hour s? N Has Patient Fasted For The Past 12 Hour s? N Has Patient Fasted For The Past 12 Hour s? N Has Patient Fasted For The Past 12 Hour s? N Name Value Range Interpretation Code Description Data Elizabeth rce(s) Supporting Document(s) HCG RESULT,S NEGATIVE [facility] Reference range is Negative "Extreme" early may have low levels of HCG present. If is suspected, repeat testing with a new specimen in 48-72 hours ID Date Data Source [id number] 06/07/2020 09:19:00 PM T [facility] Has Patient Fasted For The Past 12 Hour s? N Has Patient Fasted For The Past 12 Hour s? N Has Patient Fasted For The Past 12 Hour s? N Has Patient Fasted For The Past 12 Hour s? N Has Patient Fasted For The Past 12 Hour s? N Has Patient Fasted For The Past 12 Hour s? N Has Patient Fasted For The Past 12 Hour s? N Has Patient Fasted For The Past 12 Hour s? N Has Patient Fasted For The Past 12 Hour s? N Name Value Range Interpretation Code Description Data Elizabeth rce(s) Supporting Document(s) WHITE BLOOD COUNT 6.54 10^3/uL 4.00-10.50 N [facility] ealt RED BLOOD COUNT 3.52 10^6/uL 3.90-5.20 L [facility] th HEMOGLOBIN 10.2 G/DL 11.5-15.6 L [facility] HEMATOCRIT 30.1 % 35.0-46.0 L [facility] MCV 85.5 FL 80.0-100.0 N [facility] MCH 29.0 PG 27.0-34.0 N [facility] MCHC 33.9 G/DL 32-36 N [facility] RDW 14.4 % 11.5-14.5 [facility] PLATELET COUNT 287 10^3/uL 130-400 N [facility] MPV 10.8 FL 8.7-13.2 N [facility] GRAN % (AUTO) 46.6 % 42.0-75.0 N [facility] LYMPH % (AUTO) 43.3 % 20.0-51.0 N [facility] MONO % (AUTO) 5.8 % 2.0-15.0 N [facility] EOS % (AUTO) 2.9 % 0.0-11.0 N [facility] BASO % (AUTO) 1.2 % 0.0-2.0 N [facility] IG % (AUTO) 0.2 % 1.00-5.00 [facility] IG # (AUTO) 0.0 10^3/uL <0.5 [facility] GRAN # (AUTO) 3.05 10^3/uL 1.50-6.50 N [facility] LYMPH # (AUTO) 2.8 k/uL 1.0-5.0 N [facility] MONO # (AUTO) 0.38 k/uL 0.20-1.50 N [facility] EOS # (AUTO) 0.19 10^3/uL 0.00-1.10 N [facility] BASO # (AUTO) 0.08 10^3/uL 0.00-0.20 N [facility] ID Date Data Source [id number] 06/08/2020 09:14:00 AM EDT [facility] Has Patient Fasted For The Past 12 Hour s? N Has Patient Fasted For The Past 12 Hour s? N Has Patient Fasted For The Past 12 Hour s? N Has Patient Fasted For The Past 12 Hour s? N Has Patient Fasted For The Past 12 Hour s? N Has Patient Fasted For The Past 12 Hour s? N Has Patient Fasted For The Past 12 Hour s? N Has Patient Fasted For The Past 12 Hour s? N Has Patient Fasted For The Past 12 Hour s? N Name Value Range Interpretation Code Description Data Elizabeth rce(s) Supporting Document(s) SODIUM 135 MEQ/L 135-145 N [facility] POTASSIUM 4.5 MEQ/L 3.5-5.3 N [facility] CHLORIDE 104 MEQ/L 94-110 N [facility] CARBON DIOXIDE 25 MEQ/L 22-33 N [facility] ANION GAP 11 5-16 N [facility] BLOOD UREA NITRO 12 MG/DL 7-25 N [facility] CREATININE 0.7 MG/DL 0.6-1.4 N [facility] GFR > 90.0 ML/MIN [facility] Stage G1 - Normal or high kidney functi on The GFR is an estimate of the Glomerular Filtration Rate. It is an aid to assess a patient's renal function. It is not a conclusive diagnosis of kidney disease. GFR normal is >=90 The MDRD GFR calculation is considered valid between the ages of 18 and 75 years only. BUN/CREAT RATIO 17 8-36 N [facility] GLUCOSE 89 MG/DL 70-100 N [facility] CA 8.4 MG/DL 8.7-10.5 L [facility] BILIRUBIN,TOTAL < 0.2 MG/DL 0.1-1.3 N [facility] h AST 20 U/L 5-40 N [facility] ALT 28 U/L 5-48 [facility] ALKALINE PHOSPHATASE 95 U/L 40-140 [facility] alth TOTAL PROTEIN 5.0 G/DL 5.9-8.3 L [facility] ALBUMIN 3.4 G/DL 3.0-5.1 [facility] GLOBULIN 1.6 G/DL 1.5-3.5 [facility] ALB/GLOB RATIO 2.1 G/DL 1.0-3.0 [facility] ID Date Data Source [id number] 06/08/2020 09:14:00 AM EDT [facility] Has Patient Fasted For The Past 12 Hour s? N Has Patient Fasted For The Past 12 Hour s? N Has Patient Fasted For The Past 12 Hour s? N Has Patient Fasted For The Past 12 Hour s? N Has Patient Fasted For The Past 12 Hour s? N Has Patient Fasted For The Past 12 Hour s? N Has Patient Fasted For The Past 12 Hour s? N Has Patient Fasted For The Past 12 Hour s? N Has Patient Fasted For The Past 12 Hour s? N Name Value Range Interpretation Code Description Data Elizabeth rce(s) Supporting Document(s) IRON 72 UG/DL 35-150 N [facility] TIBC 262 UG/DL 260-400 [facility] % IRON SATURATION 27.0 % 20-50 N [facility] ID Date Data Source [id number] 06/08/2020 09:14:00 AM [facility] Has Patient Fasted For The Past 12 Hour s? N Has Patient Fasted For The Past 12 Hour s? N Has Patient Fasted For The Past 12 Hour s? N Has Patient Fasted For The Past 12 Hour s? N Has Patient Fasted For The Past 12 Hour s? N Has Patient Fasted For The Past 12 Hour s? N Has Patient Fasted For The Past 12 Hour s? N Has Patient Fasted For The Past 12 Hour s? N Has Patient Fasted For The Past 12 Hour s? N Name Value Range Interpretation Code Description Data Elizabeth rce(s) Supporting Document(s) Vitamin D,25-HYDROXY 27.9 ng/ml 30-100 L [facility] Vitamin D Status Range De ficiency <20 ng/ml Insufficiency 20-29.9 ng/ml Sufficiency 30-100 ng/ml Toxicity >100 ng/ml Patients should not be tested for 72 hours post fluorescein dye angiography. A false elevation of result may occur. ID Date Data Source [id number] 06/08/2020 09:14:00 AM [facility] Has Patient Fasted For The Past 12 Hour s? N Has Patient Fasted For The Past 12 Hour s? N Has Patient Fasted For The Past 12 Hour s? N Has Patient Fasted For The Past 12 Hour s? N Has Patient Fasted For The Past 12 Hour s? N Has Patient Fasted For The Past 12 Hour s? N Has Patient Fasted For The Past 12 Hour s? N Has Patient Fasted For The Past 12 Hour s? N Has Patient Fasted For The Past 12 Hour s? N Name Value Range Interpretation Code Description Data Elizabeth rce(s) Supporting Document(s) FREE T4 (FREE THYROXINE) 0.75 NG/DL 0.76-1.78 L [facility] ID Date Data Source [id number] 06/08/2020 09:14:00 AM [facility] Has Patient Fasted For The Past 12 Hour s? N Has Patient Fasted For The Past 12 Hour s? N Has Patient Fasted For The Past 12 Hour s? N Has Patient Fasted For The Past 12 Hour s? N Has Patient Fasted For The Past 12 Hour s? N Has Patient Fasted For The Past 12 Hour s? N Has Patient Fasted For The Past 12 Hour s? N Has Patient Fasted For The Past 12 Hour s? N Has Patient Fasted For The Past 12 Hour s? N Name Value Range Interpretation Code Description Data Elizabeth rce(s) Supporting Document(s) T3FREE 2.1 PG/ML 2.3-4.2 L [facility] ID Date Data Source [id number] 06/08/2020 09:14:00 AM T [facility] Has Patient Fasted For The Past 12 Hour s? N Has Patient Fasted For The Past 12 Hour s? N Has Patient Fasted For The Past 12 Hour s? N Has Patient Fasted For The Past 12 Hour s? N Has Patient Fasted For The Past 12 Hour s? N Has Patient Fasted For The Past 12 Hour s? N Has Patient Fasted For The Past 12 Hour s? N Has Patient Fasted For The Past 12 Hour s? N Has Patient Fasted For The Past 12 Hour s? N Name Value Range Interpretation Code Description Data Elizabeth rce(s) Supporting Document(s) TSH 2.950 uIU/ML 0.470-4.200 N [facility] Patients should not be tested for 72 ho urs post fluorescein dye angiography. A false depression of result may occur. ID Date Data Source [id number] 06/08/2020 09:14:00 AM [facility] Has Patient Fasted For The Past 12 Hour s? N Has Patient Fasted For The Past 12 Hour s? N Has Patient Fasted For The Past 12 Hour s? N Has Patient Fasted For The Past 12 Hour s? N Has Patient Fasted For The Past 12 Hour s? N Has Patient Fasted For The Past 12 Hour s? N Has Patient Fasted For The Past 12 Hour s? N Has Patient Fasted For The Past 12 Hour s? N Has Patient Fasted For The Past 12 Hour s? N Name Value Range Interpretation Code Description Data Elizabeth rce(s) Supporting Document(s) SALICYLATE < 3.0 MG/DL 2.8-20.0 N [facility] ID Date Data Source [id number] 06/08/2020 09:14:00 AM [facility] Has Patient Fasted For The Past 12 Hour s? N Has Patient Fasted For The Past 12 Hour s? N Has Patient Fasted For The Past 12 Hour s? N Has Patient Fasted For The Past 12 Hour s? N Has Patient Fasted For The Past 12 Hour s? N Has Patient Fasted For The Past 12 Hour s? N Has Patient Fasted For The Past 12 Hour s? N Has Patient Fasted For The Past 12 Hour s? N Has Patient Fasted For The Past 12 Hour s? N Name Value Range Interpretation Code Description Data Elizabeth rce(s) Supporting Document(s) ACETAMINOPHEN 5.2 UG/ML 10-30 L [facility] High levels of N-acetylcysteine (used t o treat Acetaminophen overdose) may cause interference and cause a negative bias in the Acetaminophen result. ID Date Data Source [id number] 06/08/2020 09:14:00 AM EDT [facility] Has Patient Fasted For The Past 12 Hour s? N Has Patient Fasted For The Past 12 Hour s? N Has Patient Fasted For The Past 12 Hour s? N Has Patient Fasted For The Past 12 Hour s? N Has Patient Fasted For The Past 12 Hour s? N Has Patient Fasted For The Past 12 Hour s? N Has Patient Fasted For The Past 12 Hour s? N Has Patient Fasted For The Past 12 Hour s? N Has Patient Fasted For The Past 12 Hour s? N Name Value Range Interpretation Code Description Data Elizabeth rce(s) Supporting Document(s) BLOOD ALCOHOL 0.00 % <0.03 [facility] ID Date Data Source [id number] 05/09/2020 03:34:00 [place] [address] HEALTH INFORMATION MANAGEMENT ED/ Physician Report : [id number] Signed Patient: Madhavi Montalvo Acct:[id number] Unit: [id number] : 1980 Arrival Date: 05/09/20 Age/Sex: 39 / F Arrival Time: 220 Copies to: PCP,No Headache HPI/ROS General Chief Complaint: Headache Stated Complaint: Pain Managment Stated Complaint: Pain Managment Source: Patient and I have reviewed available Ancillary/nursing staff documentation Mode of arrival: EMS Limitations: Reports No limitations History of Present Illness Initial Comments: This 39-year-old female patient with history of lupus, fibromyalgia, gastric bypass surgery and irritable bowel syndrome has a history of 2 months of intermittent global like pressure headaches that can last many hours per day. She gets a little bit nauseated with this headache and also notes photophobia. This headache started 4 hours ago. She has history of migraineheadaches but she says this headache is little bit different. She has not been vomiting and she denies fever and stiff neck. She was admitted here to the hospital March 28 through April 02 and had MRI of brain and neck with that was normal and she also had brain CT that was normal. [facility] the headache continued so she was brought to the ER. She is not weak or numb in her arms legs. Severity scale (1-10): 9 Quality: Reports Aching, Constant and Similar to previous headaches Consistency: Reports Constant Improves With: Reports Nothing Related Data Home Medications Medication Instructions Recorded Multi-Day Plus Minerals 1 tab PO DAILY 03/28/20 Spiriva with HandiHaler 1 cap INHALATION DAILY 03/28/20 Trexall 7.5 mg PO Q7DAYS 03/28/20 acetaminophen [Tylenol] 650 mg PO Q6H PRN MDD 3 Grams 03/28/20 albuterol sulfate 2 puff INHALATION QID PRN 03/28/20 baclofen 5 mg PO BID PRN 03/28/20 bisacodyl 10 mg PA DAILY PRN 03/28/20 budesonide-formoterol [Symbicort] 2 puff INHALATION BID 03/28/20 buspirone 10 mg PO BID 03/28/20 calcium carbonate-vitamin D3 1 tab PO DAILY 03/28/20 [Calcium 500 With D] docusate sodium [Docusil] 100 mg PO DAILY 03/28/20 duloxetine [Cymbalta] 60 mg PO DAILY 03/28/20 escitalopram oxalate [Claudio apro] 5 mg PO DAILY 03/28/20 folic acid 1 mg PO DAILY 03/28/20 gabapentin [Neurontin] 200 mg PO TID 03/28/20 hydroxychloroquine [Plaquenil] 200 mg PO DAILY 03/28/20 levetiracetam [Keppra] 500 mg PO BID 03/28/20 metoprolol tartrate [Lopressor] 50 mg PO Q12H 03/28/20 pantoprazole [Protonix] 40 mg PO DAILY 03/28/20 sennosides [Senna Lax] 17.2 mg PO BID 03/28/20 sorbitol 30 ml PO ONCE 03/28/20 sumatriptan succinate [Imitrex] See Rx Instructions .ROUTE 03/28/20 .COMPLEX PRN thiamine HCl (vitamin B1) 100 mg PO DAILY 03/28/20 trazodone 50 mg PO HS 03/28/20 Saccharomyces boulardii [Florastor] 250 mg PO BID #20 cap 04/02/20 amoxicillin-pot clavulanate 1 tab PO BID #12 tab 04/02/20 hydrocodone- acetaminophen 1 tab PO Q6HPRN PRN #1 tab MDD 4 04/02/20 Allergies azithromycin Allergy (Verified 05/09/20 02:34) bupropion Allergy (Verified 05/09/20 02:34) cephalexin Allergy (Verified 05/09/20 02:34) erythromycin base Allergy (Verified 05/09/20 02:34) eszopiclone [From Lunesta] Allergy (Verified 05/09/20 02:34) Fish Containing Products Allergy (Verified 05/09/20 02:34) Latex, Natural Rubber Allergy (Verified 05/09/20 02:34) levofloxacin Allergy (Verified 05/09/20 02:34) lisinopril Allergy (Verified 05/09/20 02:34) metoclopramide Allergy (Verified 05/09/20 02:34) omeprazole Allergy (Verified 05/09/20 02:34) Sulfa (Sulfonamide Antibiotics) Allergy (Verified 05/09/20 02:34) NSAIDS (Non-Steroidal Anti-Inflamma Adverse Reaction (Verified 05/09/20 02:34) history gastric bypass oranges Adverse Reaction (Uncoded 05/09/20 02:34) Social History Social History Other: currently living at a fdc following 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 Waiting for placement current History of Smoking/Tobacco Use: Former Smoker Alcohol use: Reports History of use Drug use: Reports History of use Occupation: disabled Lives with: Reports Half-Way PMH/PSH PMH/PSH Medical History Acute respiratory failure with hypoxia (Acute) Adverse reaction to drug (Resolved) Anemia (Acute) Anorexia (Acute) Asthma (Chronic) Chronic headaches (Acute) Chronic indwelling Martínez catheter (Chronic) Fibromyalgia (Chronic) HTN (hypertension) (Chronic) IBS (irritable bowel syndrome) (Chronic) Major depressive disorder (Chronic) Muscle wasting (Acute) Muscle weakness (Acute) Obstructive and reflux uropathy (Acute) Other abnormalities of gait and mobility (Acute) Pseudoseizures (Acute) Speech and language deficits (Acute) Systemic lupus (Chronic) Wernicke encephalopathy (Acute) Surgical History Gastric bypass status for obesity (Acute Surgical) Family History Other Unknown family medical history Physical Exam Physical Exam General appearance: Alert and In distress moderate Head Head Exam: Atraumatic and Normcephalic Eye Eye Exam: EOMI, Conjunctiva normal and GWYN Neck Neck Exam: Full ROM and Supple Cardiac Cardiac: Present: Regular rate and rhythm Murmur: Present: None Heart Sounds: Present: S1 and S2; Absent: Gallops and Rubs Lung/Chest Lung/Chest Exam: Clear and Normal Exchange Abdomen Abdominal Exam: Soft, Nondistended and Nontender Neuro Neuro Normal: Alert, Oriented x 3, Sensory normal and Strength 5/5 all extremities Psych Psych Normal: Normal Affect Skin Skin exam: Dry, Intact, [place] and Warm Course Course Course Narrative: For this headache which sounds like a tension migraine, we will give her [id number] mg added to 1 bag of saline and run that over 1 hour by IV. 0551 says she feels better in the headache is slightly improved. Will give her some Toradol. She is not actually allergic to stress that she had a gastric bypass and can not take oral anti- inflammatories because of her gastric pouch 0640 patient says her headache is gone after receiving the Thorazine and Toradol It is felt that she experienced a tension migraine type headache. Vital Signs Vital signs: Vital Signs 05/09/20 02:25 Temperature 98 F Pulse Rate 84 Respiratory Rate 16 Blood Pressure 138/84 O2 Sat by Pulse Oximetry 98 Discharge Plan Disposition Clinical Impression: Headache Qualifiers: Headache type: other headache syndrome Qualified Code(s): G44.89 - Other headache syndrome Provider stated Dispo: Discharged Condition: Stable Instructions: Acute Headache (ED) Activity Restrictions/Additional Instructions: You received IV Thorazine and a 1L bag of saline + Toradol for your headache Prescriptions: No Action acetaminophen [Tylenol] 325 mg Tablet 650 mg PO Q6H MDD 3 Grams PRN (Reason: Fever) RF: 0 albuterol sulfate 90 mcg/actuation Hfa Aerosol Inhaler 2 puff INHALATION QID PRN (Reason: Wheezing) RF: 0 baclofen 5 mg Tablet 5 mg PO BID PRN (Reason: Muscle Spasm) RF: 0 sennosides [Senna Lax] 8.6 mg Tablet 17.2 mg PO BID RF: 0 trazodone 50 mg Tablet 50 mg PO HS RF: 0 levetiracetam [Keppra] 500 mg Tablet 500 mg PO BID RF: 0 sumatriptan succinate [Imitrex] 50 mg Tablet See Rx Instructions .ROUTE .COMPLEX PRN (Reason: Migraine Headache) RF: 0 thiamine HCl (vitamin B1) 100 mg Tablet 100 mg PO DAILY RF: 0 bisacodyl 10 mg Suppository 10 mg PA DAILY PRN (Reason: Constipation) RF: 0 pantoprazole [Protonix] 40 mg Tablet,Delayed Release (Dr/Ec) 40 mg PO DAILY RF: 0 buspirone 10 mg Tablet 10 mg PO BID RF: 0 Trexall 7.5 mg Tablet 7.5 mg PO Q7DAYS RF: 0 metoprolol tartrate [Lopressor] 50 mg Tablet 50 mg PO Q12H RF: 0 docusate sodium [Docusil] 100 mg Capsule 100 mg PO DAILY RF: 0 folic acid 1 mg Tablet 1 mg PO DAILY RF: 0 gabapentin [Neurontin] 100 mg Capsule 200 mg PO T ID RF: 0 hydroxychloroquine [Plaquenil] 200 mg Tablet 200 mg PO DAILY RF: 0 sorbitol 70 % Solution 30 ml PO ONCE RF: 0 escitalopram oxalate [Lexapro] 5 mg Tablet 5 mg PO DAILY RF: 0 Spiriva with HandiHaler 18 mcg Capsule, W/Inhalation Device 1 cap INHALATION DAILY RF: 0 duloxetine [Cymbalta] 60 mg Capsule,Delayed Release(Dr/Ec) 60 mg PO DAILY RF: 0 calcium carbonate-vitamin D3 [Calcium 500 With D] 500 mg(1,250mg) -400 unit Tablet 1 tab PO DAILY RF: 0 budesonide-formoterol [Symbicort] 160-4.5 mcg/actuation Hfa Aerosol Inhaler 2 puff INHALATION BID RF: 0 Multi-Day Plus Minerals 18 mg iron-400 mcg-25 mcg Tablet 1 tab PO DAILY RF: 0 hydrocodone-acetaminophen 5-325 mg Tablet 1 tab PO Q6HPRN MDD 4 PRN (Reason: Unbearable Pain Level 10) Qty: 1 RF: 0 amoxicillin-pot clavulanate 875-125 mg Tablet 1 tab PO BID Qty: 12 RF: 0 Saccharomyces boulardii [Florastor] 250 mg Capsule 250 mg PO BID Qty: 20 RF: 0 Referrals: P CP,No [Primary Care Provider] - Patient agreeable to discharge: Patient/Guardian understands and is agreeable to discharge plan Provider in triage note Vital Signs Vital Signs: I O (Last 24 Hours) 05/07/20 05/08/20 05/09/20 23:59 23:59 23:59 Other: Weight 70 kg Vital Signs (Last 8 Hours) Temp Pulse Resp BP Pulse Ox 05/09/20 02:25 98 F 84 16 138/84 98 Date/Time <<Signature on File>> Initializing User: Larry Arnold MD 05/09/20 0334 Signed by: Larry Arnold MD 05/09/20 2347 Name Value Range Interpretation Code Description Data Elizabeth rce(s) Supporting Document(s) ID Date Data Source [id number] 04/18/2020 10:31:00 AM [facility] Run: 04/18/20 1031 INTERFACED REPORT Name: Madhavi Montalvo Age/Sex: 39/F Location: [facility] Acct: [id number] Unit: [id number] Status: REG REF Room/Bed: Re04/16/20 Disch: Att Dr: Key Scott MD Specimen #: [id number] Ordered : 04/16/2012/05/2053 Collected : 04/16/2012/05/2053 By: OFFICE Received: 04/16/2012/05/2053 By: ALBERTO Source: URINE CATH Specimen Description: Comments: UCATH Has been collected UCC Procedure Result COLONY COUNT Final COLONY COUNT GREATER THAN 100,000 CFU/ML URINE CULTURE Final COLIFORMS MANY Organism 1 ENTEROBACTER AEROGENES 1. ENTEROBACTER AEROGENES GUNNER Int --------- --- AMIKACIN <=16 S AMPICILLIN >16 R AMPICILLIN/SULBACTAM 16/8 R AZTREONAM <=4 S CEFAZOLIN >16 R CEFEPIME <=2 S CEFTAZIDIME <=1 S CEFTRIAXONE <=1 S CIPROFLOXACIN <=1 S GENTAMICIN <=4 S IMIPENEM <=1 S LEVOFLOXACIN <=2 S MEROPENEM <=1 S NITROFURANTOIN 64 I TETRACYCLINE <=4 S TOBRAMYCIN <=4 S TRIMETHOPRIM/SULFAMETHOXAZOLE <=2/38 S PIPERACILLIN/TAZOBACTAM <=16 S S = Susceptible MS = Moderately Susceptible I = Intermediate R = Resistant SOBEIDA = Beta Lactamase Positive GUNNER = MCG/mL BLANK = Not Tested or Advisable URINE CULTURE Preliminary (Corrected) COLIFORMS MANY END OF REPORT Name Value Range Interpretation Code Description Data Elizabeth rce(s) Supporting Document(s) ID Date Data Source [id number] 04/16/2020 03:33:00 PM EDT [facility] Name Value Range Interpretation Code Description Data Elizabeth rce(s) Supporting Document(s) Bacteria identified in Urine by Culture Laboratory test result [facility] ([facility]) <content> --------</content>
<content>Run: 04/18/20 1031 INTERFACED REPORT</content>
<content> </content>
<content>Name: Madhavi Montalvo Age/Sex: 39/F Location: [facility]</content>
<content>Acct: [id number] Unit: [id number] Status: REG REF Room/Bed:</content>
<content>Re04/16/20 Disch: Glenn Dr: Key Scott MD</content>
<content> </content>
<content></content>
<content>Specimen #: [id number] Ordered : 04/16/2012/05/2053</content>
<content>Collected : 04/16/2012/05/2053 By: STEPHANIE Received: 04/16/2012/05/2053 By: ALBERTO</content>
<content>Source: URINE CATH Specimen Description:</content>
<content>Comments: UCATH</content>
<content>Has been collected</content>
<content>UCC</content>
<content></content>
<content> </content>
<content>Procedure Result</content>
<content> </content>
<content>COLONY COUNT Final</content>
<content>COLONY COUNT GREATER THAN 100,000 CFU/ML</content>
<content></content>
<content>URINE CULTURE Final</content>
<content>COLIFORMS MANY</content>
<content></content>
<content></content>
<content> Organism 1 ENTEROBACTER AEROGENES</content>
<content></content>
<content>1. ENTEROBACTER AEROGENES</content>
<content>GUNNER Int</content>
<content>--------- ---</content>
<content>AMIKACIN <=16 S</content>
<content>AMPICILLIN >16 R</content>
<content>AMPICILLIN/SULBACTAM 16/8 R</content>
<content>AZTREONAM <=4 S</content>
<content>CEFAZOLIN >16 R</content>
<content>CEFEPIME <=2 S</content>
<content>CEFTAZIDIME <=1 S</content>
<content>CEFTRIAXONE <=1 S</content>
<content>CIPROFLOXACIN <=1 S</content>
<content>GENTAMICIN <=4 S</content>
<content>IMIPENEM <=1 S</content>
<content>LEVOFLOXACIN <=2 S</content>
<content>MEROPENEM <=1 S</content>
<content>NITROFURANTOIN 64 I</content>
<content>TETRACYCLINE <=4 S</content>
<content>TOBRAMYCIN <=4 S</content>
<content>TRIMETHOPRIM/SULFAMETHOXAZOLE <=2/38 S</content>
<content>PIPERACILLIN/TAZOBACTAM <=16 S</content>
<content></content>
<content>S = Susceptible</content>
<content>MS = Moderately Susceptible</content>
<content>I = Intermediate</content>
<content>R = Resistant</content>
<content>SOBEIDA = Beta Lactamase Positive</content>
<content>GUNNER = MCG/mL</content>
<content>BLANK = Not Tested or Advisable</content>
<content></content>
<content>URINE CULTURE Preliminary (Corrected)</content>
<content>COLIFORMS MANY</content>
<content> </content>
<content></content>
<content> </content>
<cont ent></content>
<content> END OF REPORT </content>
<content></content> ID Date Data Source [id number] 04/16/2020 02:13:00 PM EDT [facility] ([facility] [place] Name Value Range Interpretation Code Description Data Elizabeth rce(s) Supporting Document(s) Glucose [Presence] in Urine Laboratory test result [facility] ([facility] [place]) Protein [Presence] in Urine by Test strip Laboratory test result [facility] ([facility] [place]) Ua Nitrite Laboratory test result [facility] ([facility] [place]) Ua Leuko Laboratory test result [facility] ([facility] [place]) Ketones [Presence] in Urine by Test strip Laboratory test result [facility] ([facility] [place]) Color of Urine Laboratory test result [facility] ([facility] [place]) Blood [Presence] in Urine by Visual Laboratory test result [facility] ([facility] [place]) Clarity of Urine Laboratory test result [facility] ([facility] [place]) pH of Urine by Test strip 6.0 5.0-7.5 [facility] ([facility] [place]) Ua Specific [place] 1.010 1.003-1.030 [facility] NT ([facility] [place]) Urobilinogen [Mass/volume] in Urine by Test strip 0.2 E.U./dL 0.0-1.0 [facility] ([facility] [place]) Bilirubin.total [Presence] in Urine by Test strip Laboratory test res ult [facility] ([facility] [place]) ID Date Data Source [id number] 04/08/2020 09:00:00 AM EDT [facility] Name Value Range Interpretation Code Description Data Elizabeth rce(s) Supporting Document(s) SARS-CoV-2 RNA Resp Ql MARIAN+probe [facility] This lab was ordered by [facility] and reported by MARICEL. ID Date Data Source [id number] 04/05/2020 08:15:00 AM EDT [facility] Name Value Range Interpretation Code Description Data Elizabeth rce(s) Supporting Document(s) WHITE BLOOD COUNT 6.63 10^3/uL 4.00-10.50 [facility] RED BLOOD COUNT 3.91 10^6/uL 3.90-5.20 [facility] HEMOGLOBIN 11.4 G/DL 11.5-15.6 L [facility] HEMATOCRIT 33.7 % 35.0-46.0 L [facility] MCV 86.2 FL 80.0-100.0 N [facility] MCH 29.2 PG 27.0-34.0 N [facility] MCHC 33.8 G/DL 32-36 N [facility] RDW 13.0 % 11.5-14.5 N [facility] PLATELET COUNT 213 10^3/uL 130-400 [facility] MPV 11.0 FL 8.7-13.2 N [facility] GRAN % (AUTO) 35.9 % 42.0-75.0 L [facility] LYMPH % (AUTO) 53.1 % 20.0-51.0 H [facility] MONO % (AUTO) 6.9 % 2.0-15.0 N [facility] EOS % (AUTO) 2.6 % 0.0-11.0 N [facility] BASO % (AUTO) 1.2 % 0.0-2.0 [facility] IG % (AUTO) 0.3 % 1.00-5.00 [facility] IG # (AUTO) 0.0 10^3/uL <0.5 [facility] GRAN # (AUTO) 2.38 10^3/uL 1.50-6.50 N [facility] LYMPH # (AUTO) 3.5 k/uL 1.0-5.0 N [facility] MONO # (AUTO) 0.46 k/uL 0.20-1.50 N [facility] EOS # (AUTO) 0.17 10^3/uL 0.00-1.10 N [facility] BASO # (AUTO) 0.08 10^3/uL 0.00-0.20 N [facility] ID Date Data Source [id number] 04/05/2020 08:23:00 AM EDT [facility] Name Value Range Interpretation Code Description Data Elizabeth rce(s) Supporting Document(s) SODIUM 145 MEQ/L 135-145 N [facility] POTASSIUM 4.0 MEQ/L 3.5-5.3 N [facility] CHLORIDE 111 MEQ/L 94-110 H [facility] CARBON DIOXIDE 27 MEQ/L 22-33 N [facility] ANION GAP 11 5-16 N [facility] BLOOD UREA NITRO < 5 MG/DL 7-25 L [facility] CREATININE 0.7 MG/DL 0.6-1.4 N [facility] GFR > 90.0 ML/MIN [facility] Stage G1 - Normal or high kidney functi on The GFR is an estimate of the Glomerular Filtration Rate. It is an aid to assess a patient's renal function. It is not a conclusive diagnosis of kidney disease. GFR normal is >=90 The MDRD GFR calculation is considered valid between the ages of 18 and 75 years only. BUN/CREAT RATIO 7 8-36 L [facility] GLUCOSE 81 MG/DL 70-100 N [facility] CA 8.9 MG/DL 8.7-10.5 N [facility] BILIRUBIN,TOTAL 0.2 MG/DL 0.1-1.3 N [facility] AST 14 U/L 5-40 N [facility] ALT 19 U/L 5-48 N [facility] ALKALINE PHOSPHATASE 60 U/L 40-140 [facility] alth TOTAL PROTEIN 5.0 G/DL 5.9-8.3 L [facility] ALBUMIN 3.5 G/DL 3.0-5.1 N [facility] GLOBULIN 1.5 G/DL 1.5-3.5 N [facility] ALB/GLOB RATIO 2.3 G/DL 1.0-3.0 [facility] ID Date Data Source [id number] 04/03/2020 07:53:00 AM EDT [facility] Name Value Range Interpretation Code Description Data Elizabeth rce(s) Supporting Document(s) WHITE BLOOD COUNT 6.58 10^3/uL 4.00-10.50 N [facility] ealth RED BLOOD COUNT 3.61 10^6/uL 3.90-5.20 L [facility] HEMOGLOBIN 10.7 G/DL 11.5-15.6 L [facility] HEMATOCRIT 31.6 % 35.0-46.0 L [facility] MCV 87.5 FL 80.0-100.0 N [facility] MCH 29.6 PG 27.0-34.0 [facility] MCHC 33.9 G/DL 32-36 N [facility] RDW 13.0 % 11.5-14.5 [facility] PLATELET COUNT 181 10^3/uL 130-400 N [facility] MPV 11.2 FL 8.7-13.2 [facility] GRAN % (AUTO) 44.0 % 42.0-75.0 [facility] LYMPH % (AUTO) 44.1 % 20.0-51.0 [facility] MONO % (AUTO) 8.2 % 2.0-15.0 N [facility] EOS % (AUTO) 2.6 % 0.0-11.0 N [facility] BASO % (AUTO) 0.9 % 0.0-2.0 N [facility] IG % (AUTO) 0.2 % 1.00-5.00 [facility] IG # (AUTO) 0.0 10^3/uL <0.5 [facility] GRAN # (AUTO) 2.90 10^3/uL 1.50-6.50 N [facility] LYMPH # (AUTO) 2.9 k/uL 1.0-5.0 N [facility] MONO # (AUTO) 0.54 k/uL 0.20-1.50 N [facility] EOS # (AUTO) 0.17 10^3/uL 0.00-1.10 N [facility] BASO # (AUTO) 0.06 10^3/uL 0.00-0.20 N [facility] ID Date Data Source [id number] 04/03/2020 08:20:00 AM EDT [facility] Name Value Range Interpretation Code Description Data Elizabeth rce(s) Supporting Document(s) SODIUM 144 MEQ/L 135-145 N [facility] POTASSIUM 4.0 MEQ/L 3.5-5.3 N [facility] CHLORIDE 111 MEQ/L 94-110 [facility] CARBON DIOXIDE 26 MEQ/L 22-33 N [facility] ANION GAP 11 5-16 N [facility] BLOOD UREA NITRO < 5 MG/DL 7-25 L [facility] CREATININE 0.7 MG/DL 0.6-1.4 N [facility] GFR > 90.0 ML/MIN [facility] Stage G1 - Normal or high kidney functi on The GFR is an estimate of the Glomerular Filtration Rate. It is an aid to assess a patient's renal function. It is not a conclusive diagnosis of kidney disease. GFR normal is >=90 The MDRD GFR calculation is considered valid between the ages of 18 and 75 years only. BUN/CREAT RATIO 7 8-36 L [facility] GLUCOSE 86 MG/DL 70-100 N [facility] CA 8.3 MG/DL 8.7-10.5 L [facility] BILIRUBIN,TOTAL 0.2 MG/DL 0.1-1.3 N [facility] AST 17 U/L 5-40 N [facility] ALT 23 U/L 5-48 N [facility] ALKALINE PHOSPHATASE 56 U/L 40-140 N [facility] alth TOTAL PROTEIN 4.6 G/DL 5.9-8.3 L [facility] ALBUMIN 3.1 G/DL 3.0-5.1 N [facility] GLOBULIN 1.5 G/DL 1.5-3.5 [facility] ALB/GLOB RATIO 2.1 G/DL 1.0-3.0 [facility] ID Date Data Source [id number] 04/02/2020 12:24:00 PM EDT [address] [address] HEALTH INFORMATION MANAGEMENT Discharge Summary : [id number] Signed Patient: Madhavi Montalvo Acct:[id number] it: [id number] : 1980 Loc: [facility] Room/Bed: 311-A Age/Sex: 39 / F ADM Date: 03/28/20 cc: *[facility] PCP,No Discharge Summary/Exam Discharge Date: 04/02/20 Discharge/Final Diagnosis: Intractable acute on chronic headache Rule out COVID-19 History of lupus History of fibromyalgia Chronic indwelling martínez catheter History of asthma History IBS History of depression Discharge Summary: Ms Montalvo is a 39 year old female with significant past medical history for asthma, chronic headaches, lupus, irritable bowel syndrome, fibromyalgia, and history of anoxic brain injury sent to the emergency room for acute on chronic headache on March 28, 2020. Patient reported that over a week's time she has been suffering from a worsening headache from baseline. Patient states he came on suddenly. She rates the headache anywhere from 10-14/10. The headache isdiffuse and preventing her from sleeping at night. Headaches seem to worse from loud noises and bright lights. She denied any vision or neurological deficits. She was able to tolerate oral intake.She denied any fever or chills. Facility was reporting change in personality from baseline as well. In the emergency room she had received acetaminophen, diphenhydramine, ketorolac, prochlorperazine, and one liter normal saline bolus. Head CT was unremarkable for any acute pathology. Chest x-ray was negative. Urinalysis was obtained from an existing Martínez catheter. Prior to discharge from [facility] she had complained of cough and shortness of breath. The facility was requesting COVID-19 testing prior to patient arrival back to the facility. She was referred to the hospitalist service for further evaluation. She had no cough or shortness of breath noted. She has a longstanding history of irritable bowel syndrome and diarrhea that is unchanged. She has had no fever. Myalgias at her baseline. No change in sense of smell or taste. Hospital Course: (1) Adverse reaction to drug: Code(s): T50.905A - Adverse effect of unspecified drugs, medicaments and biological substances, initial encounter Qualifiers: Encounter type: initial encounter Qualified Code(s): T50.905A - Adverse effect of unspecified drugs, medicaments and biological substances, initial encounter Status: Resolved Present on Admission: No Plan: Patient reported swelling of the lips with use of Primaxin Reports that this is the usual reaction with other antibiotics No respiratory compromise noted Quickly resolved after antibiotics discontinued Patient refused any further dosing Resolved Discontinued Primaxin Continue Augmentin as patient has tolerated this in the past (2) Head ache: Code(s): R51 - Headache Qualifiers: Headache chronicity pattern: chronic headache Headache type: unspecified Intractability: not intractable Qualified Code(s): R51 - Headache Status: Acute Present on Admission: Yes Plan: Acute on chronic headache of unclear etiology No nuchal rigidity, neck pain, recent trauma, recent change in medications CT the brain unremarkable No significant leukocytosis Suffers from chronic headaches/worse than baseline/ associated with light sensitivity and noise sensitivity Patient was trialed on multiple medication regimens including Toradol, Phenergan, Imitrex Headaches did not respond any conservative management/ trialed on hydrocodone with moderate relief Continue current regimen including sumatriptan as needed/ Continue hydrocodone 5/325 1 tablet every 6 hours for unbearable pain. Patient encouraged to try the other regimens prior to hydrocodone administration. MRI of the brain and cervical spine within normal limits Outpatient follow-up with Neurology advised (3) Suspected 2019 novel coronavirus infection: Code(s): Z20.828 - Contact with and (suspected) exposure to other viral communicable diseases Status: Acute Present on Admission: Yes Plan: Patient considered low suspicion Screening completed per [facility] [employer] care request prior to return Negative 03/30/2020 (4) Systemic lupus: Code(s): M32.9 - Systemic lupus erythematosus, unspecified Qualifiers: Systemic lupus erythematosus type: unspecified Systemic lupus erythematosus organ involvement: unspecified Qualified Code(s): M32.9 - Systemic lupus erythematosus, unspecified Status: Chronic Present on Admission: Yes Plan: Chronic. Stable. Continued home medications (5) Fibromyalgia: Code(s): M79.7 - Fibromyalgia Status: Chronic Present on Admission: Yes Plan: Chronic. Stable. Continued current home medications (6) Chronic indwelling Martínez catheter: Code(s): Z96.0 - Presence of urogenital implants Status: Chronic Present on Admission: Yes Plan: Chronic. Most likely secondary to neurogenic bladder in the setting of anoxic brain injury. Denies any urinary symptoms Initial urinalysis contaminated Repeat urinalysis suggestive of urinary tract infection No significant leukocytosis Multiple drug allergies Urine colony count >100,000 coliforms/ Ecoli Catheter changed on March 30, 2020 Discontinued Primaxin due to swelling of the lips Continue Augmentin as patient has tolerated in past. Will need 6 days treatment (7) IBS (irritable bowel syndrome): Code(s): K58.9 - Irritable bowel syndrome without diarrhea Qualifiers: Irritable bowel syndrome type: with diarrhea Qualified Code(s): K58.0 - Irritable bowel syndrome with diarrhea Status: Chronic Present on Admission: Yes Plan: Patient with chronic irritable bowel syndrome. Mostly diarrhea. Stable. No exacerbation. Kayla nue probiotics due to initiation of antibiotics (8) Major depressive disorder: Code(s): F32.9 - Major depressive disorder, single episode, unspecified Qualifiers: Major depression recurrence: unspecified whether recurrent Active/Remission status: remission status unspecified Qualified Code(s): F32.9 - Major depressive disorder, single episode, unspecified Status: Chronic Present on Admission: Yes Plan: Chronic. Stable. No signs of acute decompensation Continued home medications (9) Asthma: Code(s): J45.909 - Unspecified asthma, uncomp licated Qualifiers: Asthma severity: unspecified severity Asthma persistence: unspecified Asthma complication type: unspecified Qualified Code(s): J45.909 - Unspecified asthma, uncomplicated Status: Chronic Present on Admission: Yes Plan: Chronic. Stable. No signs of acute decompensation Continued home medications Physical Exam: General: Alert, Cooperative (answer questions appropriately but will not elaborate) and Oriented x3 HEENT: Atraumatic and Normocephalic Neck: Supple; negative JVD Lungs: Clear to auscultation, Normal Air Movement and Chest rises and falls symmetrically; negative Crackles and Wheezing Cardiovascular: Lower extremity pulse 2+, Normal Rate, Normal S1, Normal S2 and Regular rhythm Abdomen: Normal Active Bowel Sound, Soft and Other (indwelling martínez catheter with dark, cloudy urine); negative Distended and Tenderness Extremities: negative Clubbing and Edema Skin: [place] and Warm Neurological: Awake/Oriented, Cranial nerves 3-12 NL and Sensation intact; negative Strength at 5/5 X4 ext Psych/Mental Status: Alert, Oriented x 3 and Blunt Affect Vital Signs: Temp Pulse Resp BP Pulse Ox 98.4 F 60 16 125/74 100 04/02/20 07:50 04/02/20 09:18 04/02/20 07:50 04/02/20 09:18 04/02/20 07:50 Result Diagrams: 04/02/20 06:41 04/02/20 06:41 Discharge Plan Reason For Visit: Intractable Headache, R/O COVID Discharge Diagnosis: Intractable acute on chronic headache Rule out COVID-19 History of lupus History of fibromyalgia Chronic indwelling martínez catheter History of asthma History IBS History of depression Condition at Discharge: Stable Health Concerns: Patient with chronic headaches. Reports that the facility does not discuss medication changes with her. I have asked at the facility please discuss medication changes with her or her family. She needs to follow-up with her neurologist. I was unable to find any reason for the acute headaches. I am concerned that this may be withdrawal from Fioricet however I am not able to confirm with the Fioricet was discontinued. Cognitive/Behavioral Status at Discharge: Alert and oriented times 3 Mood variable Functional Status at discharge: Independent ambulation Prescriptions: New hydrocodone- acetaminophen 5-325 mg Tablet 1 tab PO Q6HPRN MDD 4 PRN (Reason: Unbearable Pain Level 10) Qty: 1 RF: 0 amoxicillin-pot clavulanate 875-125 mg Tablet 1 tab PO BID Qty: 12 RF: 0 Saccharomyces boulardii [Florastor] 250 mg Capsule 250 mg PO BID Qty: 20 RF: 0 Continued acetaminophen [Tylenol] 325 mg Tablet 650 mg PO Q6H MDD 3 Grams PRN (Reason: Fever) RF: 0 albuterol sulfate 90 mcg/actuation Hfa Aerosol Inhaler 2 puff INHALATION QID PRN (Reason: Wheezing) RF: 0 baclofen 5 mg Tablet 5 mg PO BID PRN (Reason: Muscle Spasm) RF: 0 sennosides [Senna Lax] 8.6 mg Tablet 17.2 mg PO BID RF: 0 trazodone 50 mg Tablet 50 mg PO HS RF: 0 levetiracetam [Keppra] 500 mg Tablet 500 mg PO BID RF: 0 sumatriptan succinate [Imitrex] 50 mg Tablet See Rx Instructions .ROUTE .COMPLEX PRN (Reason: Migraine Headache) RF: 0 thiamine HCl (vitamin B1) 100 mg Tablet 100 mg PO DAILY RF: 0 bisacodyl 10 mg Suppository 10 mg PA DAILY PRN (Reason: Constipation) RF: 0 pantoprazole [Protonix] 40 mg Tablet,Delayed Release (Dr/Ec) 40 mg PO DAILY RF: 0 buspirone 10 mg Tablet 10 mg PO BID RF: 0 Trexall 7.5 mg Tablet 7.5 mg PO Q7DAYS RF: 0 metoprolol tartrate [Lopressor] 50 mg Tablet 50 mg PO Q12H RF: 0 docusate sodium [Docusil] 100 mg Capsule 100 mg PO DAILY RF: 0 folic acid 1 mg Tablet 1 mg PO DAILY RF: 0 gabapentin [Neurontin] 100 mg Capsule 200 mg PO TID RF: 0 hydroxychloroquine [Plaquenil] 200 mg Tablet 200 mg PO DAILY RF: 0 sorbitol 70 % Solution 30 ml PO ONCE RF: 0 escitalopram oxalate [Lexapro] 5 mg Tablet 5 mg PO DAILY RF: 0 Spiriva with HandiHaler 18 mcg Capsule, W/Inhalation Device 1 cap INHALATION DAILY RF: 0 duloxetine [Cymbalta] 60 mg Capsule,Delayed Release(Dr/Ec) 60 mg PO DAILY RF: 0 calcium carbonate-vitamin D3 [Calcium 500 With D] 500 mg(1,250mg) -400 unit Tablet 1 tab PO DAILY RF: 0 budesonide-formoterol [Symbicort] 160-4.5 mcg/actuation Hfa Aerosol Inhaler 2 puff INHALATION BID RF: 0 Multi-Day Plus Minerals 18 mg iron-400 mcg-25 mcg Tablet 1 tab PO DAILY RF: 0 Did you check I-Stop?: No Referrals: Bunny Fernandez MD [Active Staff] - Patient Education to Print: Hydrocodone/Acetaminophen (By mouth), Amoxicillin/Clavulanate Potassium(By mouth), Acute Headache (DC) Additional Instruction/Plan of Treatment: Half-Way Transfer Facility Name Transferring to: [facility] Date of Admission: 03/28/20 Date of Discharge: 04-02-2020 Advanced Directives: FULL code Risk for readmission: Date of Last Pneumonia Vaccine: Influenza Vaccine: Physical Examination: General: Alert, Cooperative (answer questions appropriately but will not elaborate) and Oriented x3 HEENT: Atraumatic and Normocephalic Neck: Supple; negative JVD Lungs: Clear to auscultation, Normal Air Movement and Chest rises and falls symmetrically; negative Crackles and Wheezing Cardiovascular: Lower extremity pulse 2+, Normal Rate, Normal S1, Normal S2 and Regular rhythm Abdomen: Normal Active Bowel Sound, Soft and Other (indwelling martínez catheter with dark, cloudy urine); negative Distended and Tenderness Extremities: negative Clubbing and Edema Skin: [place] and Warm Neurological: Awake/Oriented, Cranial nerves 3-12 NL and Sensation intact; negative Strength at 5/5 X4 ext Psych/Mental Status: Alert, Oriented x 3 and Blunt Affect Employment Related: [ ]Yes [x ]No MD Orders: Diet: Regular diet Consistency: Regular with thin liquids Activity: Activity as tolerated Please encourage social activities Swallowing Difficulties: [x ]No [ ]Yes Tube Fed: [x]No [ ]Yes Type of Formula/Amount: O2: [x ]No [ ]Yes Method/L: Respiratory/Nebulizer tx: [x ]No [ ]Yes Skin Dressing: None Other: 1. Please continue Augmentin for additional 6 days 2. Martínez catheter changed on 03/30/2020 3. Please discuss all medication changes with patient and/or family member Follow Up MD Appointments: 1. Please have facility provided see the patient upon admission 2. Advise outpatient follow up with her neurologist. Normal MRI of head and neck. Home Care/Rehab Options: LTC Return Discussed discharge and the following provider is in agreement to plan of care:: Dr Nichols Time spent with Patient on Discharge: More than 30 minutes Discharge Orders: Discharge Patient (Routine); Ordered 04/02/20 Ordered By: Samina Dixon [facility] MIPS REVIEWED Did you review MIPS this visit?: Yes Tobacco Use:Preventative Care/Screening Performance Met:: 1036F: Pt screened for tobacco use, identified as non-user of tobacco Current Medications in Medical Record Performance Met:: G8427: Current Medications Documented Care Plan Performance Met:: 1123F:Adv Care plan discussed and surrogate decision maker documented. Heart Failure: REAGAN or ARB Therapy- LVSD LVEF less than 40% or moderate/severely depressed left ventricular systolic function?: No Heart Failure:Beta-Terrell Therapy- LVSD LVEF less than 40% or moderate/severely depressed left ventricular systolic function?: No Discharge Lab Section Lab Data Lab - All tests, entire visit: Microbiology Entire visit 03/28/20 09:59 Blood - Left Antecubital Vein Blood Culture - Final NO GROWTH AFTER 24 HOURS NO GROWTH AFTER 48 HOURS NO GROWTH AFTER 5 DAYS 03/28/20 09:47 Blood - Right Antecubital Vein Blood Culture - Final NO GROWTH AFTER 24 HOURS NO GROWTH AFTER 48 HOURS NO GROWTH AFTER 5 DAYS 03/30/20 09:00 Urine,Catheterized [place] Count - Final 03/30/20 09:00 Urine,Catheterized Urine Culture - Final Escherichia Coli Klebsiella Pneumoniae 03/28/20 09:47 Urine,Clean Catch [place] Count - Final 03/28/20 09:47 Urine,Clean Catch Urine Culture - Final Lab Results Entire visit 04/02/20 04/02/20 04/01/20 06:41 06:41 07:15 WBC 6.04 RBC 3.49 L Hgb 10.5 L Hct 31.2 L MCV 89.4 MCH 30.1 MCHC 33.7 RDW 13.2 Plt Count 185 MPV 10.9 Gran % (Auto) 41.7 L Lymph % (Auto) 47.0 [place] % (Auto) 7.1 Eos % (Auto) 3.0 Baso % (Auto) 1.0 Nucleat RBC Rel Count Not Reportable Gran # 2.52 Lymph # (Auto) 2.8 [place] # (Auto) 0.43 Eos # (Auto) 0.18 Baso # (Auto) 0.06 Immature Gran # (Auto) 0.0 Absolute Nucleated RBC Not Reportable Immature Gran % 0.2 PT INR APTT Sodium 143 143 Potassium 3.9 4.0 Chloride 110 112 H Carbon Dioxide 27 26 Anion Gap 10 9 BUN 6 L 7 Creatinine 0.7 0.6 Estimated GFR (MDRD) > 90.0 > 90.0 BUN/Creatinine Ratio 8 11 Glucose 88 94 Lactic Acid Calcium 8.4 L 8.5 L Total Bilirubin AST ALT Alkaline Phosphatase Troponin I Total Protein Albumin Globulin Albumin/Globulin Ratio Urine Color Urine Appearance Urine pH Specific [place] (Man) Urine Protein Urine Glucose (UA) Urine Ketones Urine Occult Blood Urine Nitrate Urine Bilirubin Urine Urobilinogen Ur Leukocyte Esterase Urine WBC (Auto) Urine RBC (Auto) Urine Bacteria (Auto) Ur Epithelial Cells Urine Mucus COVID-19 PCR 04/01/20 03/31/20 03/31/20 07:15 06:27 06:27 WBC 5.50 5.66 RBC 3.58 L 3.69 L Hgb 10.6 L 10.8 L Hct 31.5 L 31.6 L MCV 88.0 85.6 MCH 29.6 29.3 MCHC 33.7 34.2 RDW 13.2 13.2 Plt Count 180 165 MPV 10.9 11.3 Gran % (Auto) 41.6 L 37.1 L Lymph % (Auto) 47.1 52.1 H [place] % (Auto) 7.3 7.4 Eos % (Auto) 3.1 2.3 Baso % (Auto) 0.5 0.9 Nucleat RBC Rel Count Not Reportable Not Reportable Gran # 2.29 2.10 Lymph # (Auto) 2.6 3.0 [place] # (Auto) 0.40 0.42 Eos # (Auto) 0.17 0.13 Baso # (Auto) 0.03 0.05 Immature Gran # (Auto) 0.0 0.0 Absolute Nucleated RBC Not Reportable Not Reportable Immature Gran % 0.4 0.2 PT INR APTT Sodium 143 Potassium 4.3 Chloride 111 H Carbon Dioxide 25 Anion Gap 11 BUN 7 Creatinine 0.7 Estimated GFR (MDRD) > 90.0 BUN/Creatinine Ratio 10 Glucose 79 Lactic Acid Calcium 8.6 L Total Bilirubin AST ALT Alkaline Phosphatase Troponin I Total Protein Albumin Globulin Albumin/Globulin Ratio Urine Color Urine Appearance Urine pH Specific [place] (Man) Urine Protein Urine Glucose (UA) Urine Ketones Urine Occult Blood Urine Nitrate Urine Bilirubin Urine Urobilinogen Ur Leukocyte Esterase Urine WBC (Auto) Urine RBC (Auto) Urine Bacteria (Auto) Ur Epithelial Cells Urine Mucus COVID-19 PCR 03/30/20 03/29/20 03/29/20 09:00 06:56 06:56 WBC 5.34 RBC 3.97 Hgb 11.7 D Hct 34.4 L MCV 86.6 MCH 29.5 MCHC 34.0 RDW 13.2 Plt Count 193 D MPV 10.6 Gran % (Auto) 36.7 L Lymph % (Auto) 51.7 H [place] % (Auto) 7.5 Eos % (Auto) 2.4 Baso % (Auto) 1.5 Nucleat RBC Rel Count Not Reportable Gran # 1.96 Lymph # (Auto) 2.8 [place] # (Auto) 0.40 Eos # (Auto) 0.13 Baso # (Auto) 0.08 Immature Gran # (Auto) 0.0 Absolute Nucleated RBC Not Reportable Immature Gran % 0.2 PT INR APTT Sodium 143 Potassium 4.1 Chloride 111 H Carbon Dioxide 26 Anion Gap 10 BUN 9 Creatinine 0.7 Estimated GFR (MDRD) > 90.0 BUN/Creatinine Ratio 12 Glucose 86 Lactic Acid Calcium 8.5 L Total Bilirubin AST ALT Alkaline Phosphatase Troponin I Total Protein Albumin Globulin Albumin/Globulin Ratio Urine Color STRAW Urine Appearance CLEAR Urine pH 6.5 Specific [place] (Man) 1.005 Urine Protein NEGATIVE Urine Glucose (UA) NEGATIVE Urine Ketones NEGATIVE Urine Occult Blood TRACE H Urine Nitrate POSITIVE H Urine Bilirubin NEGATIVE Urine Urobilinogen 0.2-1.0 Ur Leukocyte Esterase MODERATE H Urine WBC (Auto) 5-9 H Urine RBC (Auto) 1-2 Urine Bacteria (Auto) FEW Ur Epithelial Cells RARE Urine Mucus COVID-19 PCR 03/28/20 03/28/20 03/28/20 09:47 09:47 09:47 WBC RBC Hgb Hct MCV MCH MCHC RDW Plt Count MPV Gran % (Auto) Lymph % (Auto) [place] % (Auto) Eos % (Auto) Baso % (Auto) Nucleat RBC Rel Count Gran # Lymph # (Auto) [place] # (Auto) Eos # (Auto) Baso # (Auto) Immature Gran # (Auto) Absolute Nucleated RBC Immature Gran % PT INR APTT Sodium Potassium Chloride Carbon Dioxide Anion Gap BUN Creatinine Estimated GFR (MDRD) BUN/Creatinine Ratio Glucose Lactic Acid 0.8 Calcium Total Bilirubin AST ALT Alkaline Phosphatase Troponin I Total Protein Albumin Globulin Albumin/Globulin Ratio Urine Color AARON H Urine Appearance CLOUDY H Urine pH 6.0 Specific [place] (Man) 1.006 Urine Protein NEGATIVE Urine Glucose (UA) NEGATIVE Urine Ketones NEGATIVE Urine Occult Blood NEGATIVE Urine Nitrate NEGATIVE Urine Bilirubin NEGATIVE Urine Urobilinogen 0.2-1.0 Ur Leukocyte Esterase SMALL H Urine WBC (Auto) 25- 49 H Urine RBC (Auto) 1-2 Urine Bacteria (Auto) MODERATE H Ur Epithelial Cells MODERATE Urine Mucus RARE COVID-19 PCR 03/28/20 03/28/20 03/28/20 09:47 09:47 09:47 WBC 6.76 RBC 4.54 Hgb 13.4 Hct 40.0 MCV 88.1 MCH 29.5 MCHC 33.5 RDW 13.2 Plt Count 231 MPV 10.9 Gran % (Auto) 50.4 Lymph % (Auto) 38.6 [place] % (Auto) 7.8 Eos % (Auto) 1.9 Baso % (Auto) 1.0 Nucleat RBC Rel Count Not Reportable Gran # 3.40 Lymph # (Auto) 2.6 [place] # (Auto) 0.53 Eos # (Auto) 0.13 Baso # (Auto) 0.07 Immature Gran # (Auto) 0.0 Absolute Nucleated RBC Not Reportable Immature Gran % 0.3 PT 10.7 INR 1.0 APTT 32.3 Sodium 141 Potassium 4.7 Chloride 108 Carbon Dioxide 27 Anion Gap 11 BUN 6 L Creatinine 0.8 Estimated GFR (MDRD) 79.0 BUN/Creatinine Ratio 7 L Glucose 85 Lactic Acid Calcium 9.2 Total Bilirubin 0.4 AST 35 ALT 30 Alkaline Phosphatase 67 Troponin I < 0.006 Total Protein 5.9 Albumin 4.1 Globulin 1.8 Albumin/Globulin Ratio 2.3 Urine Color Urine Appearance Urine pH Specific [place] (Man) Urine Protein Urine Glucose (UA) Urine Ketones Urine Occult Blood Urine Nitrate Urine Bilirubin Urine Urobilinogen Ur Leukocyte Esterase Urine WBC (Auto) Urine RBC (Auto) Urine Bacteria (Auto) Ur Epithelial Cells Urine Mucus COVID-19 PCR Hospitalist Charges Worksheet Subject to change for billing criteria Did you complete your Hospitalist charges for this visit?: Yes Inpatient [address] Hosp Discharge Day-greater than 30 minutes: Yes Signed By:Samina GARCIA <<Signature on File>> Signed Date/Time: 04/02/20 1254 Co-Signer: Marlon Nichols MD Co-Signed Date/Time: 04/02/20 8452 Initializing User: Samina GARCIA 04/02/20 1224 1224 1224 Name Value Range Interpretation Code Description Data Elizabeth rce(s) Supporting Document(s) ID Date Data Source [id number] 04/02/2020 12:24:00 PM EDT [address] [address] HEALTH INFORMATION MANAGEMENT Discharge Plan : [id number] Signed Patient: Madhavi Montalvo Acct:[id number] Un it: [id number] : 1980 Loc: [facility] Room/Bed: 311-A Age/Sex: 39 / F ADM Date: 03/28/20 cc: Discharge Plan Reason For Visit: Intractable Headache, R/O COVID Discharge Diagnosis: Intractable acute on chronic headache Rule out COVID-19 History of lupus History of fibromyalgia Chronic indwelling martínez catheter History of asthma History IBS History of depression Condition at Discharge: Stable Health Concerns: Patient with chronic headaches. Reports that the facility does not discuss medication changes with her. I have asked at the facility please discuss medication changes with her or her family. She needs to follow-up with her neurologist. I was unable to find any reason for the acute headaches. I am concerned that this may be withdrawal from Fioricet however I am not able to confirm with the Fioricet was discontinued. Cognitive/Behavioral Status at Discharge: Alert and oriented times 3 Mood variable Functional Status at discharge: Independent ambulation Prescriptions: New hydrocodone-acetaminophen 5-325 mg Tablet 1 tab PO Q6HPRN MDD 4 PRN (Reason: Unbearable Pain Level 10) Qty: 1 RF: 0 amoxicillin-pot clavulanate 875-125 mg Tablet 1 tab PO BID Qty: 12 RF: 0 Saccharomyces boulardii [Florastor] 250 mg Capsule 250 mg PO BID Qty: 20 RF: 0 Continued acetaminophen [Tylenol] 325 mg Tablet 650 mg PO Q6H MDD 3 Grams PRN (Reason: Fever) RF: 0 albuterol sulfate 90 mcg/actuation Hfa Aerosol Inhaler 2 puff INHALATION QID PRN (Reason: Wheezing) RF: 0 baclofen 5 mg Tablet 5 mg PO BID PRN (Reason: Muscle Spasm) RF: 0 sennosides [Senna Lax] 8.6 mg Tablet 17.2 mg PO BID RF: 0 trazodone 50 mg Tablet 50 mg PO HS RF: 0 levetiracetam [Keppra] 500 mg Tablet 5 00 mg PO BID RF: 0 sumatriptan succinate [Imitrex] 50 mg Tablet See Rx Instructions .ROUTE .COMPLEX PRN (Reason: Migraine Headache) RF: 0 thiamine HCl (vitamin B1) 100 mg Tablet 100 mg PO DAILY RF: 0 bisacodyl 10 mg Suppository 10 mg PA DAILY PRN (Reason: Constipation) RF: 0 pantoprazole [Protonix] 40 mg Tablet,Delayed Release (Dr/Ec) 40 mg PO DAILY RF: 0 buspirone 10 mg Tablet 10 mg PO BID RF: 0 Trexall 7.5 mg Tablet 7.5 mg PO Q7DAYS RF: 0 metoprolol tartrate [Lopressor] 50 mg Tablet 50 mg PO Q12H RF: 0 docusate sodium [Docusil] 100 mg Capsule 100 mg PO DAILY RF: 0 folic acid 1 mg Tablet 1 mg PO DAILY RF: 0 gabapentin [Neurontin] 100 mg Capsule 200 mg PO TID RF: 0 hydroxychloroquine [Plaquenil] 200 mg Tablet 200 mg PO DAILY RF: 0 sorbitol 70 % Solution 30 ml PO ONCE RF: 0 escitalopram oxalate [Lexapro] 5 mg Tablet 5 mg PO DAILY RF: 0 Spiriva with HandiHaler 18 mcg Capsule, W/Inhalation Device 1 cap INHALATION DAILY RF: 0 duloxetine [Cymbalta] 60 mg Capsule,Delayed Release(Dr/Ec) 60 mg PO DAILY RF: 0 calcium carbonate-vitamin D3 [Calcium 500 With D] 500 mg(1,250mg) -400 unit Tablet 1 tab PO DAILY RF: 0 budesonide-formoterol [Symbicort] 160-4.5 mcg/actuation Hfa Aerosol Inhaler 2 puff INHALATION BID RF: 0 Multi-Day Plus Minerals 18 mg iron-400 mcg-25 mcg Tablet 1 tab PO DAILY RF: 0 Did you check I-Stop?: No Referrals: Bunny Fernandez MD [Active Staff] - Patient Education to Print: Acute Headache (DC) Additional Instruction/Plan of Treatment: Half-Way Transfer Facility Name Transferring to: [facility] Date of Admission: 03/28/20 Date of Discharge: 04-02-2020 Advanced Directives: FULL code Risk for readmission: Date of Last Pneumonia Vaccine: Influenza Vaccine: Physical Examination: General: Alert, Cooperative (answer questions appropriately but will not elaborate) and Oriented x3 HEENT: Atraumatic and Normocephalic Neck: Supple; negative JVD Lungs: Clear to auscultation, Normal Air Movement and Chest rises and falls symmetrically; negative Crackles and Wheezing Cardiovascular: Lower extremity pulse 2+, Normal Rate, Normal S1, Normal S2 and Regular rhythm Abdomen: Normal Active Bowel Sound, Soft and Other (indwelling martínez catheter with dark, cloudy urine); negative Distended and Tenderness Extremities: negative Clubbing and Edema Skin: [place] and Warm Neurological: Awake/Oriented, Cranial nerves 3-12 NL and Sensation intact; negative Strength at 5/5 X4 ext Psych/Mental Status: Alert, Oriented x 3 and Blunt Affect Employment Related: [ ]Yes [x ]No MD Orders: Diet: Regular diet Consistency: Regular with thin liquids Activity: Activity as tolerated Please encourage social activities Swallowing Difficulties: [x ]No [ ]Yes Tube Fed: [x]No [ ]Yes Type of Formula/Amount: O2: [x ]No [ ]Yes Method/L: Respiratory/Nebulizer tx: [x ]No [ ]Yes Skin Dressing: None Other: 1. Please continue Augmentin for additional 6 days 2. Martínez catheter changed on 03/30/2020 3. Please discuss all medication changes with patient and/or family member Follow Up MD Appointments: 1. Please have facility provided see the patient upon admission 2. Advise outpatient follow up with her neurologist. Normal MRI of head and neck. Home Care/Rehab Options: LTC Return Discussed discharge and the following provider is in agreement to plan of care:: Dr Nichols Time spent with Patient on Discharge: More than 30 minutes Discharge Orders: Discharge Patient (Routine); Ordered 04/02/20 Ordered By: Samina Dixon Signed By:Samina GARCIA <<Signature on File>> Signed Date/Time: 04/02/20 1249 Co-Signer: Co-Signed Date/Time: Initializing User: Samina GARCIA 04/02/20 1224 1224 1224 Name Value Range Interpretation Code Description Data Elizabeth rce(s) Supporting Document(s) ID Date Data Source [id number] 04/02/2020 07:33:00 AM EDT [facility] Name Value Range Interpretation Code Description Data Elizabeth rce(s) Supporting Document(s) WHITE BLOOD COUNT 6.04 10^3/uL 4.00-10.50 [facility] RED BLOOD COUNT 3.49 10^6/uL 3.90-5.20 [facility]IN 10.5 G/DL 11.5-15.6 [facility] HEMATOCRIT 31.2 % 35.0-46.0 L [facility] MCV 89.4 FL 80.0-100.0 [facility] M[facility] 30.1 PG 27.0-34.0 [facility] MCHC 33.7 G/DL 32-36 [facility] RDW 13.2 % 11.5-14.5 N [facility] PLATELET COUNT 185 10^3/uL 130-400 [facility] MPV 10.9 FL 8.7-13.2 [facility] GRAN % (AUTO) 41.7 % 42.0-75.0 L [facility] LYMPH % (AUTO) 47.0 % 20.0-51.0 [facility] MONO % (AUTO) 7.1 % 2.0-15.0 [facility] EOS % (AUTO) 3.0 % 0.0-11.0 [facility] BASO % (AUTO) 1.0 % 0.0-2.0 [facility] IG % (AUTO) 0.2 % 1.00-5.00 [facility] IG # (AUTO) 0.0 10^3/uL <0.5 [facility] GRAN # (AUTO) 2.52 10^3/uL 1.50-6.50 [facility] LYMPH # (AUTO) 2.8 k/uL 1.0-5.0 [facility] [facility] MONO # (AUTO) 0.43 k/uL 0.20-1.50 [facility] EOS # (AUTO) 0.18 10^3/uL 0.00-1.10 [facility] [place] [facility] BASO # (AUTO) 0.06 10^3/uL 0.00-0.20 [facility] ID Date Data Source [id number] 04/02/2020 07:58:00 AM EDT [facility] Name Value Range Interpretation Code Description Data Elizabeth rce(s) Supporting Document(s) SODIUM 143 MEQ/L 135-145 [facility] POTASSIUM 3.9 MEQ/L 3.5-5.3 N [facility] CHLORIDE 110 MEQ/L 94-110 N [facility] CARBON DIOXIDE 27 MEQ/L 22-33 N [facility] ANION GAP 10 5-16 N [facility] BLOOD UREA NITRO 6 MG/DL 7-25 L [facility] CREATININE 0.7 MG/DL 0.6-1.4 N [facility] GFR > 90.0 ML/MIN [facility] Stage G1 - Normal or high kidney functi on The GFR is an estimate of the Glomerular Filtration Rate. It is an aid to assess a patient's renal function. It is not a conclusive diagnosis of kidney disease. GFR normal is >=90 The MDRD GFR calculation is considered valid between the ages of 18 and 75 years only. BUN/CREAT RATIO 8 8-36 N [facility] GLUCOSE 88 MG/DL 70-100 N [facility] CA 8.4 MG/DL 8.7-10.5 L [facility] ID Date Data Source [id number] 04/01/2020 10:12:00 [place] [address] HEALTH INFORMATION MANAGEMENT PCM-Progress Note : [id number] Signed Patient: Madhavi Montalvo Acct:[id number] it: [id number] : 1980 Loc: [facility] Room/Bed: 311-A Age/Sex: 39 / F ADM Date: 03/28/20 cc: Subjective Date of Service: 04/01/20 Subjective: Ms Montalvo is a 39 year old female with significant past medical history for asthma, chronic headaches, lupus, irritable bowel syndrome, fibromyalgia, and history of anoxic brain injurysent to the emergency room for acute on chronic headache on March 28, 2020. Patient reported that overa week's time she has been suffering from a worsening headache from baseline. Patient states he came on suddenly. She rates the headache anywhere from 10-14/10. The headache is diffuse and preventing her from sleeping at night. Headaches seem to worse from loud noises and bright lights. She denied any vision or neurological deficits. She was able to tolerate oral intake. She denied anyfever or chills. Facility was reporting change in personality from baseline as well. In the emergency room she had received acetaminophen, diphenhydramine, ketorolac, prochlorperazine, and one liter normal saline bolus. Head CT was unremarkable for any acute pathology. Chest x-ray was negative. Urinalysis was obtained from an existing Martínez catheter. Prior to discharge from [facility] she had complained of cough and shortness of breath. The facility was requesting COVID-19 testing prior to patient arrival back to the facility. She was referred to the hospitalist service for further evaluation. She had no cough or shortness of breath noted. She has a longstanding history of irritable bowel syndrome and diarrhea that is unchanged. She has had no fever. Myalgias at her baseline. No change in sense of smell or taste. Reason for Visit: Follow up on Intractable acute on chronic headache Rule out COVID-19 History of lupus History of fibromyalgia Chronic indwelling martínez catheter History of asthma History IBS History of depression Interval History: Patient admitted to hospitalist service. Chart, nurses notes, laboratory Interval History: Patient admitted to hospitalist service. Chart, nurses notes, laboratory findings, and radiology reports reviewed. VS noted. Patient was seen and examined at bedside. She is sleeping upon entering the room. She will answer questions appropriately but does not elaborate. Sumatriptan was added for better management for headaches. However patient states that they are the same. She did have an episode of nausea yesterday but this has resolved. She was able to tolerate her breakfast. COVID testing is negative at this time. However urinalysis showed presence of 3 or more organisms suggesting contamination. The initial urine was taken off an existing Martínez catheter. Because the patient continues to have symptoms of headache and malaise, I asked for the catheter to be changed. Repeat urinalysis does show probable UTI. Case was discussed with pharmacydue to multiple drug allergies. Will start the patient on Primaxin 500 mg every 6 hours and follow- up on urinary cultures prior to discharge from the hospital to ensure patient is treated accordingly. Blood cultures preliminary show no growth after 48 hours. No leukocytosis, nuchal rigidity, or other signs of meningitis. 03/31/2020: Patient seen and examined at bedside this morning. She continues to complain of head pain which is different from her chronic migraines. She received Toradol and Phenergan overnight with some relief. Patient does have a history gastric bypass and oral NSAIDs are contraindicated for this patient. Therefore ibuprofen is not an option for this patient. I discussed with her the option oftramadol and/or hydrocodone in small doses to help try to control her pain at this time. She reports that she used tramadol in the past with no significant relief. She was trialed on hydrocodone which did help control her pain better. She would like to have an MRI as was discussed with the overnight doctor as she feels there is something causing these headaches. Patient reports lip swelling with the Primaxin and continued to refuse IV antibiotics. She reports that she was Augmentin the past and she was transitioned to this. She remains afebrile. Urine cultures reveal colony count >100,000 coliforms. 04/01/2020: Headache is persistent. Improved with hydrocodone. Only required one dose overnight. Urine culture shows e-coli. Tolerating Augmentin without adverse effects. Plan for MRI head and cervical spine tomorrow. If unremarkable, plan to discharge back to [facility] anticipated. Review of Systems: General: Positive Fatigue and Malaise; Denies Chills HEENT: Positive Headache and Other (bright lights bother her); Denies Dysphagia Pulmonary: Denies Chest Pain, Cough and Shortness of Breath Cardiovascular: Denies Chest Pain and Dyspnea on Exertion Gastrointestinal: Positive Diarrhea (chronic/intermittent); Denies Abdominal Pain, Constipation, Melena and Nausea Genitourinary: Positive Retention and Other (chronic indwelling catheter); Denies Hesitancy Musculoskeletal: Positive Joint stiffness/swelling and Other ("pain all over") Neurological: Positive Headaches and Weakness; Denies Change in Mental Status, Change in Speech and Confusion Skin Problem: Denies Rash Objective Vitals and I O: I O (Last 24 Hours) 03/30/20 03/31/20 04/01/20 23:59 23:59 23:59 Intake Total 2260 / 2260 1680 / 1680 480 / 480 Output Total 2200 / 2200 2650 / 2650 1250 / 1250 Balance 60 / 60 -970 / -970 -770 / -770 Intake: IV 300 / 300 100 / 100 Imipenem/Cilastatin 500 mg In 300 / 300 100 / 100 Sodium Chloride 0.9% 100 ml @ 200 mls/hr IV Q6H [facility] Rx#: [id number] Oral [birth year] 1580 / 1580 480 / 480 Output: Output, Indwelling Catheter 2200 / 2200 2650 / 2650 1250 / 1250 Amount Other: Total, Intake Amount 100 500 480 Date of Last Bowel Movement 03/30/20 03/30/20 Bowel Movement Amount Medium Total, Output Amount [id number] Voiding Method Indwelling Catheter Indwelling Catheter # Bowel Movements 1 Vital Signs (Last 8 Hours) Temp Pulse Res p BP Pulse Ox 04/01/20 09:24 73 129/81 04/01/20 09:22 99.1 F 79 16 129/81 99 04/01/20 07:34 68 16 99 Exam: General: Alert, Cooperative (answer questions appropriately but will not elaborate) and Oriented x3 HEENT: Atraumatic and Normocephalic Neck: Supple; negative JVD Lungs: Clear to auscultation, Normal Air Movement and Chest rises and falls symmetrically; negative Crackles and Wheezing Cardiovascular: Lower extremity pulse 2+, Normal Rate, Normal S1, Normal S2 and Regular rhythm Abdomen: Normal Active Bowel Sound, Soft and Other (indwelling martínez catheter with dark, cloudy urine); negative Distended and Tenderness Extremities: negative Clubbing and Edema Skin: [place] and Warm Neurological: Awake/Oriented, Cranial nerves 3-12 NL and Sensation intact; negative Strength at 5/5 X4 ext Psych/Mental Status: Alert, Oriented x 3 and Blunt Affect Active Medications: Active Medications Acetaminophen (Tylenol Suppository) 650 mg RECTAL Q4HPRN PRN PRN Reason: HEADACHE Acetaminophen (Tylenol Tablet) 650 mg PO Q4HPRN PRN PRN Reason: HEADACHE Last Admin: 03/30/20 11:33 Dose: 650 mg Documented by: Hydrocodone Bitart/Acetaminophen (Lortab 5/325 Tablet (Vicodin, [place])) 1 tab PO Q6HPRN PRN PRN Reason: UNBEARABLE PAIN LEVEL 10 Last Admin: 04/01/20 09:20 Dose: 1 tab Documented by: Al Hydroxide/Mg [place] xide (Maalox Plus Susp (Liquid Antacid)) 15 ml PO Q4HPRN PRN PRN Reason: Indigestion Albuterol Sulfate (Ventolin Aerosol) 2.5 mg INHALATION QIDPRN PRN PRN Reason: Wheezing Amoxicillin/Clavulanate Potassium (Augmentin 875 Mg Tablet) 1 tab PO BID PATY; Protocol Last Admin: 04/01/20 09:29 Dose: 1 tab Documented by: Bisacodyl (Dulcolax Suppository) 10 mg RECTAL BIDPRN PRN PRN Reason: constipation Last Admin: 04/01/20 09:23 Dose: 10 mg Documented by: Buspirone HCl (Buspar Tablet) 10 mg PO BID [facility] Last Admin: 04/01/20 09:20 Dose: 10 mg Documented by: Duloxetine HCl (Cymbalta Capsule) 60 mg PO DAILY [facility] Last Admin: 04/01/20 09:20 Dose: 60 mg Documented by: Enoxaparin Sodium (Lovenox Inj) 40 mg SUBCUTAN Q24H [facility] Last Admin: 03/31/20 18:51 Dose: 40 mg Documented by: Escitalopram Oxalate (Lexapro Tablet) 5 mg PO DAILY [facility] Last Admin: 04/01/20 09:22 Dose: 5 mg Documented by: Folic Acid (Folic Acid Tablet) 1 mg PO DAILY [facility] Last Admin: 04/01/20 09:22 Dose: 1 mg Documented by: Gabapentin (Neurontin Capsule) 200 mg PO TID [facility] Last Admin: 04/01/20 09:19 Dose: 200 mg Documented by: Guaifenesin (Robitussin Plain Syrup Ud Cup) 200 mg PO Q4HPRN PRN PRN Reason: COUGH Hydroxychloroquine Sulfate (Plaquenil Tablet) 200 mg PO DAILY [facility] Last Admin: 04/01/20 09:20 Dose: 200 mg Documented by: Ketorolac Tromethamine (Toradol Injection) 30 mg IV Q6H PRN PRN Reason: MODERATE PAIN LEVEL 4-6 Stop: 04/05/20 14:48 Levetiracetam (Keppra Tablet) 500 mg PO BID [facility] Last Admin: 04/01/20 09:21 Dose: 500 mg Documented by: Loperamide HCl (Imodium Capsule) 2 mg PO Q6HPRN PRN PRN Reason: DIARRHEA Magnesium Hydroxide (Milk Of Magnesia Susp Ud-Cup) 30 ml PO DAILYPRN PRN PRN Reason: CONSTIPATION Metoprolol Tartrate (Lopressor Tablet) 50 mg PO BID [facility] Last Admin: 04/01/20 09:24 Dose: 50 mg Documented by: Ondansetron HCl (Zofran Injection) 4 mg IV PUSH Q4HPRN PRN PRN Reason: NAUSEA / VOMITING Pantoprazole Sodium (Protonix Tablet) 40 mg PO DAILY@0600-EMPTYSTOM [facility] Last Admin: 04/01/20 05:46 Dose: 40 mg Documented by: Promethazine HCl (Phenergan Injection) 25 mg IM Q6HPRN PRN PRN Reason: HEADACHE Last Admin: 03/31/20 02:43 Dose: 25 mg Documented by: Saccharomyces Boulardii (Florastor Cap) 250 mg PO BID [facility] Last Admin: 04/01/20 09:21 Dose: 250 mg Documented by: Senna (Senokot (Senna) 8.6 Mg Tablet) 2 tab PO BID [facility] Last Admin: 04/01/20 09:23 Dose: 2 tab Documented by: Sodium Chloride (Saline Lock Flush Protocol) 1 each IV FLUSH QSHIFT [facility] Last Admin: 04/01/20 09:29 Dose: 1 each Documented by: Sumatriptan Succinate (Imitrex Tablet) 50 mg PO Q2HPRN PRN PRN Reason: Migraine Headache Last Admin: 03/31/20 01:49 Dose: 50 mg Documented by: Thiamine HCl (Vitamin B-1 Tablet) 100 mg PO DAILY [facility] Last Admin: 04/01/20 09:20 Dose: 100 mg Documented by: Throat Lozenges (Chloraseptic Throat [place]) 1 applic MUC MEMB Q2HPRN PRN PRN Reason: SORE THROAT Tiotropium [place] (Spiriva Inhaler) 1 inhalation INHALATION RT-DAILY [facility] Last Admin: 04/01/20 07:36 Dose: Not Given Documented by: Trazodone HCl (Desyrel Tablet) 50 mg PO HS [facility] Last Admin: 03/31/20 21:24 Dose: 50 mg Documented by: Result Diagrams: 04/01/20 07:15 04/01/20 07:15 Lab Results: Microbiology (Last 12 Hour Results- Final) 03/30/20 09:00 Urine,Catheterized [place] Count - Final Laboratory (Last 12 hours Results) 04/01/20 04/01/20 07:15 07:15 WBC 5.50 RBC 3.58 L Hgb 10.6 L Hct 31.5 L MCV 88.0 MCH 29.6 MCHC 33.7 RDW 13.2 Plt Count 180 MPV 10.9 Gran % (Auto) 41.6 L Lymph % (Auto) 47.1 [place] % (Auto) 7.3 Eos % (Auto) 3.1 Baso % (Auto) 0.5 Nucleat RBC Rel Count Not Reportable Gran # 2.29 Lymph # (Auto) 2.6 [place] # (Au to) 0.40 Eos # (Auto) 0.17 Baso # (Auto) 0.03 Immature Gran # (Auto) 0.0 Absolute Nucleated RBC Not Reportable Immature Gran % 0.4 Sodium 143 Potassium 4.0 Chloride 112 H Carbon Dioxide 26 Anion Gap 9 BUN 7 Creatinine 0.6 Estimated GFR (MDRD) > 90.0 BUN/Creatinine Ratio 11 Glucose 94 Calcium 8.5 L Assessment/Plan Assessment/Plan DVT Prophylaxis Pharmacologic: Lovenox (1) Adverse reaction to drug: Code(s): T50.905A - Adverse effect of unspecified drugs, medicaments and biological substances, initial encounter Qualifiers: Encounter type: initial encounter Qualified Code(s): T50.905A - Adverse effect of unspecified drugs, medicaments and biological substances, initial encounter Status: Resolved Present on Admission: No Plan: Patient reported swelling of the lips with use of Primaxin Reports that this is the usual reaction with other antibiotics No respiratory compromise noted Quickly resolved after antibiotics discontinued Patient refused any further dosing Resolved Discontinued Primaxin Continue Augmentin as patient has tolerated this in the past (2) Head ache: Code(s): R51 - Headache Qualifiers: Headache chronicity pattern: chronic headache Headache type: unspecified Intractability: not intractable Qualified Code(s): R51 - Headache Status: Acute Present on Admission: Yes Plan: Acute on chronic headache of unclear etiology No nuchal rigidity, neck pain, recent trauma, recent change in medications CT the brain unremarkable No significant leukocytosis Suffers from chronic headaches/worse than baseline/ associated with light sensitivity and noise sensitivity Continue current regimen including sumatriptan as needed Treat underlying UTI Continue Toradol for now Continue hydrocodone 5/325 1 tablet every 6 hours for unbearable pain. Patient encouraged to try the other regimens prior to hydrocodone administration. Continue antiemetics MRI of the brain and cervical spine on Thursday (3) Suspected 2019 novel coronavirus infection: Code(s): Z20.828 - Contact with and (suspected) exposure to other viral communicable diseases Status: Acute Present on Admission: Yes Plan: Patient considered low suspicion Screening completed per [employer] driver care request prior to return Negative 03/30/2020 (4) Systemic lupus: Code(s): M32.9 - Systemic lupus erythematosus, unspecified Qualifiers: Systemic lupus erythematosus type: unspecified Systemic lupus erythematosus organ involvement: unspecified Qualified Code(s): M32.9 - Systemic lupus erythematosus, unspecified Status: Chronic Present on Admission: Yes Plan: Chronic. Stable. Continue home medications (5) Fibromyalgia: Code(s): M79.7 - Fibromyalgia Status: Chronic Present on Admission: Yes Plan: Chronic. Stable. Continue current home medications (6) Chronic indwelling Martínez catheter: Code(s): Z96.0 - Presence of urogenital implants Status: Chronic Present on Admission: Yes Plan: Chronic. Most likely secondary to neurogenic bladder in the setting of anoxic brain injury. Denies any urinary symptoms Initial urinalysis contaminated Repeat urinalysis suggestive of urinary tract infection No significant leukocytosis Multiple drug allergies Urine colony count >100,000 coliforms/ Ecoli Discontinued Primaxin due to swelling of the lips Continue Augmentin as patient has tolerated in past (7) IBS (irritable bowel syndrome): Code(s): K58.9 - Irritable bowel syndrome without diarrhea Qualifiers: Irritable bowel syndrome type: with d iarrhea Qualified Code(s): K58.0 - Irritable bowel syndrome with diarrhea Status: Chronic Present on Admission: Yes Plan: Patient with chronic irritable bowel syndrome. Mostly diarrhea. Stable. No exacerbation. Monitor for now Continue probiotics due to initiation of antibiotics (8) Major depressive disorder: Code(s): F32.9 - Major depressive disorder, single episode, unspecified Qualifiers: Major depression recurrence: unspecified whether recurrent Active/Remission status: remission status unspecified Qualified Code(s): F32.9 - Major depressive disorder, single episode, unspecified Status: Chronic Present on Admission: Yes Plan: Chronic. Stable. No signs of acute decompensation Continue home medications (9) Asthma: Code(s): J45.909 - Unspecified asthma, uncomplicated Qualifiers: Asthma severity: unspecified severity Asthma persistence: unspecified Asthma complication type: unspecified Qualified Code(s): J45.909 - Unspecified asthma, uncomplicated Status: Chronic Present on Admission: Yes Plan: Chronic. Stable. No signs of acute decompensation Continue home medications Code Status Resuscitation Status (Nurse/Provider Doc-Not Order): Full Code MIPS MIPS REVIEWED Did you review MIPS this visit?: Yes Tobacco Use:Preventative Care/Screening Performance Met:: 1036F: Pt screened for tobacco use, identified as non-user of tobacco Current Medications in Medical Record Performance Met:: G8427: Current Medications Documented Care Plan Performance Met:: 1123F:Adv Care plan discussed and surrogate decision maker documented. Heart Failure: REAGAN or ARB Therapy- LVSD LVEF less than 40% or moderate/severely depressed left ventricular systolic function?: No Heart Failure:Beta-Terrell Therapy- LVSD LVEF less than 40% or moderate/severely depressed left ventricular systolic function?: No Hospitalist Charges Worksheet Subject to change for billing criteria Did you complete your Hospitalist charges for this visit?: Yes Inpatient 46125 Subsequent INpt-Mod (less than/equal 25 minutes): Yes Signed By:Samina GARCIA <<Signature on File>> Signed Date/Time: 04/01/20 1021 Co-Signer: Co-Signed Date/Time: Initializing User: Samina GARCIA 04/01/20 1012 1012 1012 Name Value Range Interpretation Code Description Data Elizabeth rce(s) Supporting Document(s) ID Date Data Source [id number] 04/01/2020 07:58:00 AM EDT [facility] Name Value Range Interpretation Code Description Data Elizabeth rce(s) Supporting Document(s) WHITE BLOOD COUNT 5.50 10^3/uL 4.00-10.50 N [facility] ealth RED BLOOD COUNT 3.58 10^6/uL 3.90-5.20 L [facility] th HEMOGLOBIN 10.6 G/DL 11.5-15.6 L [facility] HEMATOCRIT 31.5 % 35.0-46.0 L [facility] MCV 88.0 FL 80.0-100.0 N [facility] MCH 29.6 PG 27.0-34.0 N [facility] MCHC 33.7 G/DL 32-36 N [facility] RDW 13.2 % 11.5-14.5 [facility] PLATELET COUNT 180 10^3/uL 130-400 N [facility] MPV 10.9 FL 8.7-13.2 N [facility] GRAN % (AUTO) 41.6 % 42.0-75.0 L [facility] LYMPH % (AUTO) 47.1 % 20.0-51.0 N [facility] MONO % (AUTO) 7.3 % 2.0-15.0 N [facility] EOS % (AUTO) 3.1 % 0.0-11.0 N [facility] BASO % (AUTO) 0.5 % 0.0-2.0 N [facility] IG % (AUTO) 0.4 % 1.00-5.00 [facility] IG # (AUTO) 0.0 10^3/uL <0.5 [facility] GRAN # (AUTO) 2.29 10^3/uL 1.50-6.50 N [facility] LYMPH # (AUTO) 2.6 k/uL 1.0-5.0 N [facility] MONO # (AUTO) 0.40 k/uL 0.20-1.50 N [facility] EOS # (AUTO) 0.17 10^3/uL 0.00-1.10 N [facility] BASO # (AUTO) 0.03 10^3/uL 0.00-0.20 N [facility] ID Date Data Source [id number] 04/01/2020 08:20:00 AM EDT [facility] Name Value Range Interpretation Code Description Data Elizabeth rce(s) Supporting Document(s) SODIUM 143 MEQ/L 135-145 N [facility] POTASSIUM 4.0 MEQ/L 3.5-5.3 N [facility] CHLORIDE 112 MEQ/L 94-110 H [facility] CARBON DIOXIDE 26 MEQ/L 22-33 N [facility] ANION GAP 9 5-16 N [facility] BLOOD UREA NITRO 7 MG/DL 7-25 N [facility] CREATININE 0.6 MG/DL 0.6-1.4 N [facility] GFR > 90.0 ML/MIN [facility] Stage G1 - Normal or high kidney functi on The GFR is an estimate of the Glomerular Filtration Rate. It is an aid to assess a patient's renal function. It is not a conclusive diagnosis of kidney disease. GFR normal is >=90 The MDRD GFR calculation is considered valid between the ages of 18 and 75 years only. BUN/CREAT RATIO 11 8-36 N [facility] GLUCOSE 94 MG/DL 70-100 N [facility] CA 8.5 MG/DL 8.7-10.5 L [facility] ID Date Data Source [id number] 03/31/2020 02:35:00 PM EDT [facility] [address] [address] HEALTH INFORMATION MANAGEMENT PCM-Progress Note : [id number] Signed Patient: Madhavi Montalvo Acct:[id number] it: [id number] : 1980 Loc: [facility] Room/Bed: 311-A Age/Sex: 39 / F ADM Date: 03/28/20 cc: Subjective Date of Service: 03/31/20 Subjective: Ms Montalvo is a 39 year old female with significant past medical history for asthma, chronic headaches, lupus, irritable bowel syndrome, fibromyalgia, and history of anoxic brain injurysent to the emergency room for acute on chronic headache on March 28, 2020. Patient reported that overa week's time she has been suffering from a worsening headache from baseline. Patient states he came on suddenly. She rates the headache anywhere from 10-14/10. The headache is diffuse and preventing her from sleeping at night. Headaches seem to worse from loud noises and bright lights. She denied any vision or neurological deficits. She was able to tolerate oral intake. She denied anyfever or chills. Facility was reporting change in personality from baseline as well. In the emergency room she had received acetaminophen, diphenhydramine, ketorolac, prochlorperazine, and one liter normal saline bolus. Head CT was unremarkable for any acute pathology. Chest x-ray was negative. Urinalysis was obtained from an existing Martínez catheter. Prior to discharge from [facility] she had complained of cough and shortness of breath. The facility was requesting COVID-19 testing prior to patient arrival back to the facility. She was referred to the hospitalist service for further evaluation. She had no cough or shortness of breath noted. She has a longstanding history of irritable bowel syndrome and diarrhea that is unchanged. She has had no fever. Myalgias at her baseline. No change in sense of smell or taste. Reason for Visit: Follow up on Intractable acute on chronic headache Rule out COVID-19 History of lupus History of fibromyalgia Chronic indwelling martínez catheter History of asthma History IBS History of depression Interval History: Patient admitted to hospitalist service. Chart, nurses notes, laboratory Interval History: Patient admitted to hospitalist service. Chart, nurses notes, laboratory findings, and radiology reports reviewed. VS noted. Patient was seen and examined at bedside. She is sleeping upon entering the room. She will answer questions appropriately but does not elaborate. Sumatriptan was added for better management for headaches. However patient states that they are the same. She did have an episode of nausea yesterday but this has resolved. She was able to tolerate her breakfast. COVID testing is negative at this time. However urinalysis showed presence of 3 or more organisms suggesting contamination. The initial urine was taken off an existing Martínez catheter. Because the patient continues to have symptoms of headache and malaise, I asked for the catheter to be changed. Repeat urinalysis does show probable UTI. Case was discussed with pharmacydue to multiple drug allergies. Will start the patient on Primaxin 500 mg every 6 hours and follow- up on urinary cultures prior to discharge from the hospital to ensure patient is treated accordingly. Blood cultures preliminary show no growth after 48 hours. No leukocytosis, nuchal rigidity, or other signs of meningitis. 03/31/2020: Patient seen and examined at bedside this morning. She continues to complain of head pain which is different from her chronic migraines. She received Toradol and Phenergan overnight with some relief. Patient does have a history gastric bypass and oral NSAIDs are contraindicated for this patient. Therefore ibuprofen is not an option for this patient. I discussed with her the option o ftramadol and/or hydrocodone in small doses to help try to control her pain at this time. She reports that she used tramadol in the past with no significant relief. She was trialed on hydrocodone which did help control her pain better. She would like to have an MRI as was discussed with theovernight doctor as she feels there is something causing these headaches. Patient reports lip swelling with the Primaxin and continued to refuse IV antibiotics. She reports that she was Augmentin the past and she was transitioned to this. She remains afebrile. Urine cultures reveal colony count >100,000 coliforms. Review of Systems: General: Positive Fatigue and Malaise; Denies Chills HEENT: Positive Headache and Other (bright lights bother her); Denies Dysphagia Pulmonary: Denies Chest Pain, Cough and Shortness of Breath Cardiovascular: Denies Chest Pain and Dyspnea on Exertion Gastrointestinal: Positive Diarrhea (chronic/intermittent); Denies Abdominal Pain, Constipation, Melena and Nausea Genitourinary: Positive Retention and Other (chronic indwelling catheter); Denies Hesitancy Musculoskeletal: Positive Joint stiffness/swelling and Other ("pain all over") Neurological: Positive Headaches and Weakness; Denies Change in Mental Status, Change in Speech and Confusion Skin Problem: Denies Rash Objective Vitals and I O: I O (Last 24 Hours) 03/29/20 03/30/20 03/31/20 23:59 23:59 23:59 Intake Total 600 / 600 2260 / 2260 580 / 580 Output Total 900 / 900 2200 / 2200 1200 / 1200 Balance -300 / -300 60 / 60 -620 / -620 Intake: IV 300 / 300 100 / 100 Imipenem/Cilastatin 500 mg In 300 / 300 100 / 100 Sodium Chloride 0.9% 100 ml @ 200 mls/hr IV Q6H [facility] Rx#: [id number] Oral 600 / 600 1960 / 1960 480 / 480 Output: Urine 750 / 750 Output, Indwelling Catheter 150 / 150 2200 / 2200 1200 / 1200 Amount Other: Total, Intake Amount 480 100 100 Date of Last Bowel Movement 03/27/20 03/30/20 03/30/20 Bowel Movement Amount Medium Total, Output Amount 150 1150 1200 Voiding Method Indwelling Catheter Indw elling Catheter Indwelling Catheter # Bowel Movements 1 Vital Signs (Last 8 Hours) Temp Pulse Resp BP Pulse Ox 03/31/20 09:29 71 128/73 03/31/20 08:15 98.5 F 71 19 128/83 98 Exam: General: Alert, Cooperative (answer questions appropriately but will not elaborate) and Oriented x3 HEENT: Atraumatic and Normocephalic Neck: Supple; negative JVD Lungs: Clear to auscultation, Normal Air Movement and Chest rises and falls symmetrically; negative Crackles and Wheezing Cardiovascular: Lower extremity pulse 2+, Normal Rate, Normal S1, Normal S2 and Regular rhythm Abdomen: Normal Active Bowel Sound, Soft and Other (indwelling martínez catheter with dark, cloudy urine); negative Distended and Tenderness Extremities: negative Clubbing and Edema Skin: [place] and Warm Neurological: Awake/Oriented, Cranial nerves 3-12 NL and Sensation intact; negative Strength at 5/5 X4 ext Psych/Mental Status: Alert, Oriented x 3 and Bl unt Affect Active Medications: Active Medications Acetaminophen (Tylenol Suppository) 650 mg RECTAL Q4HPRN PRN PRN Reason: HEADACHE Acetaminophen (Tylenol Tablet) 650 mg PO Q4HPRN PRN PRN Reason: HEADACHE Last Admin: 03/30/20 11:33 Dose: 650 mg Documented by: Hydrocodone Bitart/Acetaminophen (Lortab 5/325 Tablet (Vicodin, [place])) 1 tab PO Q6HPRN PRN PRN Reason: UNBEARABLE PAIN LEVEL 10 Last Admin: 03/31/20 09:52 Dose: 1 tab Documented by: Al Hydroxide/Mg Hydroxide (Maalox Plus Susp (Liquid Antacid)) 15 ml PO Q4HPRN PRN PRN Reason: Indigestion Albuterol Sulfate (Ventolin Aerosol) 2.5 mg INHALATION QIDPRN PRN PRN Reason: Wheezing Amoxicillin/Clavulanate Potassium (Augmentin 875 Mg Tablet) 1 tab PO BID [facility]; Protocol Last Admin: 03/31/20 09:47 Dose: 1 tab Documented by: Buspirone HCl (Buspar Tablet) 10 mg PO BID [facility] Last Admin: 03/31/20 09:28 Dose: 10 mg Documented by: Duloxetine HCl (Cymbalta Capsu le) 60 mg PO DAILY [facility] Last Admin: 03/31/20 09:48 Dose: 60 mg Documented by: Enoxaparin Sodium (Lovenox Inj) 40 mg SUBCUTAN Q24H [facility] Last Admin: 03/30/20 18:05 Dose: 40 mg Documented by: Escitalopram Oxalate (Lexapro Tablet) 5 mg PO DAILY [facility] Last Admin: 03/31/20 09:30 Dose: 5 mg Documented by: Folic Acid (Folic Acid Tablet) 1 mg PO DAILY [facility] Last Admin: 03/31/20 09:29 Dose: 1 mg Documented by: Gabapentin (Neurontin Capsule) 200 mg PO TID [facility] Last Admin: 03/31/20 09:30 Dose: 200 mg Documented by: Guaifenesin (Robitussin Plain Syrup Ud Cup) 200 mg PO Q4HPRN PRN PRN Reason: COUGH Hydroxychloroquine Sulfate (Plaquenil Tablet) 200 mg PO DAILY [facility] Last Admin: 03/31/20 09:47 Dose: 200 mg Documented by: Levetiracetam (Keppra Tablet) 500 mg PO BID [facility] Last Admin: 03/31/20 09:28 Dose: 500 mg Documented by: Loperamide HCl (Imodium Capsule) 2 mg PO Q6HPRN PRN PRN Reason: DIARRHEA Magnesium Hydroxide (Milk Of Magnesia Susp Ud-Cup) 30 ml PO DAILYPRN PRN PRN Reason: CONSTIPATION Metoprolol Tartrate (Lopressor Tablet) 50 mg PO BID [facility] Last Admin: 03/31/20 09:29 Dose: 50 mg Documented by: Ondansetron HCl (Zofran Injection) 4 mg IV PUSH Q4HPRN PRN PRN Reason: NAUSEA / VOMITING Pantoprazole Sodium (Protonix Tablet) 40 mg PO DAILY@0600-EMPTYSTOM [facility] Last Admin: 03/31/20 05:38 Dose: 40 mg Documented by: Promethazine HCl (Phenergan Injection) 25 mg IM Q6HPRN PRN PRN Reason: HEADACHE Last Admin: 03/31/20 02:43 Dose: 25 mg Documented by: Saccharomyces Boulardii (Florastor Cap) 250 mg PO BID [facility] Last Admin: 03/31/20 09:31 Dose: 250 mg Documented by: Senna (Senokot (Senna) 8.6 Mg Tablet) 2 tab PO BID [facility] Last Admin: 03/31/20 09:27 Dose: 2 tab Documented by: Sodium Chloride (Saline Lock Flush Protocol) 1 each IV FLUSH QSHIFT [facility] Last Admin: 03/31/20 09:48 Dose: 1 each Documented by: Sumatriptan Succinate (Imitrex Tablet) 50 mg PO Q2HPRN PRN PRN Reason: Migraine Headache Last Admin: 03/31/20 01:49 Dose: 50 mg Documented by: Thiamine HCl (Vitamin B-1 Tablet) 100 mg PO DAILY [facility] Last Admin: 03/31/20 09:27 Dose: 100 mg Documented by: Throat Lozenges (Chloraseptic Throat [place]) 1 applic MUC MEMB Q2HPRN PRN PRN Reason: SORE THROAT Tiotropium [place] (Spiriva Inhaler) 1 inhalation INHALATION RT-DAILY [facility] Last Admin: 03/31/20 09:33 Dose: Not Given Documented by: Trazodone HCl (Desyrel Tablet) 50 mg PO HS [facility] Last Admin: 03/30/20 20:35 Dose: 50 mg Documented by: Result Diagrams: 03/31/20 06:27 03/31/20 06:27 Lab Results: Microbiology (Last 12 Hour Results- Final) 03/30/20 09:00 Urine,Catheterized [place] Count - Final Laboratory (Last 12 hours Results) 03/31/20 03/31/20 06:27 06:27 WBC 5.66 RBC 3.69 L Hgb 10.8 L Hct 31.6 L MCV 85.6 MCH 29.3 MCHC 34.2 RDW 13.2 Plt Count 165 MPV 11.3 Gran % (Auto) 37.1 L Lymph % (Auto) 52.1 H [place] % (Auto) 7.4 Eos % (Auto) 2.3 Baso % (Auto) 0.9 Nucleat RBC Rel Count Not Reportable Gran # 2.10 Lymph # (Auto) 3.0 [place] # (Auto) 0.42 Eos # (Auto) 0.13 Baso # (Auto) 0.05 Immature Gran # (Auto) 0.0 Absolute Nucleated RBC Not Reportable Immature Gran % 0.2 Sodium 143 Potassium 4.3 Chloride 111 H Carbon Dioxide 25 Anion Gap 11 BUN 7 Creatinine 0.7 Estimated GFR (MDRD) > 90.0 BUN/Creatinine Ratio 10 Glucose 79 Calcium 8.6 L Assessment/Plan Assessment/Plan DVT Prophylaxis Pharmacologic: Lovenox (1) Adverse reaction to drug: Code(s): T50.905A - Adverse effect of unspecified drugs, medicaments and biological substances, initial encounter Qualifiers: Encounter type: initial encounter Qualified Code(s): T50.905A - Adverse effect of unspecified drugs, medicaments and biological substances, initial encounter Status: Acute Present on Admission: No Plan: Patient reported swelling of the lips with use of Primaxin Reports that this is the usual reaction with other antibiotics No respiratory compromise noted Quickly resolved after antibiotics discontinued Patient refused any further dosing Discontinue Primaxin Start Augmentin as patient has tolerated this in the past (2) Head ache: Code(s): R51 - Headache Qualifiers: Headache chronicity pattern: chronic heada stephen Headache type: unspecified Intractability: not intractable Qualified Code(s): R51 - Headache Status: Acute Present on Admission: Yes Plan: Acute on chronic headache of unclear etiology No nuchal rigidity, neck pain, recent trauma, recent change in medications CT the brain unremarkable No significant leukocytosis Suffers from chronic headaches/worse than baseline/ associated with light sensitivity and noise sensitivity Continue current regimen including sumatriptan as needed Treat underlying UTI Continue Toradol for now Start hydrocodone 5/325 1 tablet every 6 hours for unbearable pain. Patient encouraged to try the other regimens prior to hydrocodone administration. Continue antiemetics MRI of the brain and cervical spine on Thursday (3) Suspected 2019 novel coronavirus infection: Code(s): Z20.828 - Contact with and (suspected) exposure to other viral communicable diseases Status: Acute Present on Admission: Yes Plan: Patient considered low suspicion Screening completed per assisted care request prior to return Negative 03/30/2020 (4) Systemic lupus: Code(s): M32.9 - Systemic lupus erythematosus, unspecified Qualifiers: Systemic lupus erythematosus organ involvement: unspecified Systemic lupus erythematosus type: unspecified Qualified Code(s): M32.9 - Systemic lupus erythematosus, unspecified Status: Chronic Present on Admission: Yes Plan: Chronic. Stable. Continue home medications (5) Fibromyalgia: Code(s): M79.7 - Fibromyalgia Status: Chronic Present on Admission: Yes Plan: Chronic. Stable. Continue current home medications (6) Chronic indwelling Martínez catheter: Code(s): Z96.0 - Presence of urogenital implants Status: Chronic Present on Admission: Yes Plan: Chronic. Most likely secondary to neurogenic bladder in the setting of anoxic brain injury. Denies any urinary symptoms Initial urinalysis contaminated Repeat urinalysis suggestive of urinary tract infection No significant leukocytosis Multiple drug allergies Urine colony count >100,000 coliforms Discontinue Primaxin due to swelling of the lips Start Augmentin as patient has tolerated in past Follow-up on urinary cultures and adjust therapy accordingly (7) IBS (irritable bowel syndrome): Code(s): K58.9 - Irritable bowel syndrome without diarrhea Qualifiers: Irritable bowel syndrome type: with diarrhea Qualified Code(s): K58.0 - Irritable bowel syndrome with diarrhea Status: Chronic Present on Admission: Yes Plan: Patient with chronic irritable bowel syndrome. Mostly diarrhea. Stable. No exacerbation. Monitor for now Continue probiotics due to initiation of antibiotics (8) Major depressive disorder: Code(s): F32.9 - Major depressive disorder, single episode, unspecified Qualifiers: Active/Remission status: remission status unspecified Major depression recurrence: unspecified whether recurrent Qualified Code(s): F32.9 - Major depressive disorder, single episode,unspecified Status: Chronic Present on Admission: Yes Plan: Chronic. Stable. No signs of acute decompensation Continue home medications (9) Asthma: Code(s): J45.909 - Unspecified asthma, uncomplicated Qualifiers: Asthma complication type: unspecified Asthma persistence: unspecified Asthma severity: unspecified severity Qualified Code(s): J45.909 - Unspecified asthma, uncomplicated Status: Chronic Present on Admission: Yes Plan: Chronic. Stable. No signs of acute decompensation Continue home medications Code Status Resuscitation Status (Nurse/Provider Doc-Not Order): Full Code MIPS MIPS REVIEWED Did you review MIPS this visit?: Yes Tobacco Use:Preventative Care/Screening Performance Met:: 1036F: Pt screened for tobacco use, identified as non-user of tobacco Current Medications in Medical Record Performance Met:: G8427: Current Medications Documented Care Plan Performance Met:: 1123F:Adv Care plan discussed and surrogate decision maker documented. Heart Failure: REAGAN or ARB Therapy- LVSD LVEF less than 40% or moderate/severely depressed left ventricular systolic function?: No Heart Failure:Beta-Terrell Therapy- LVSD LVEF less than 40% or moderate/severely depressed left ventricular systolic function?: No Hospitalist Charges Worksheet Subject to change for billing criteria Did you complete your Hospitalist charges for this visit?: Yes Inpatient 02599 Subsequent INpt-Mod (less than/equal 25 minutes): Yes Signed By:Samina GARCIA <<Signature on File>> Signed Date/Time: 03/31/20 1454 Co-Signer: Co-Signed Date/Time: Initializing User: Samina GARCIA [id number] 143 Name Value Range Interpretation Code Description Data Eilzabeth rce(s) Supporting Document(s) ID Date Data Source [id number] 03/31/2020 11:59:00 [place] [address] Patient Name: Madhavi Montalvo Exam Date: 03/31/20 : 1980 Ordering Doctor: Samina GARCIA Attending Doctor: Samina GARCIA CC: [facility] MRI CERVICAL SPINE WITHOUT CONTRAST CLINICAL STATEMENT: Neck pain. TECHNIQUE: MRI of the cervical spine was obtained without contrast, utilizing multiplanar sequences. COMPARISON: None. FINDINGS: There is normal cervical lordosis. The cervical spine demonstrates normal marrow signal. Normal vertebral body heights and alignment are maintained. There is no epidural or paravertebral disease. The spinal cord is normal in signal, size and morphology. There is no significant disc herniation, spinal canal stenosis or neural foraminal narrowing. IMPRESSION: Normal cervical spine MRI. Professional interpretation performed at [facility] . End of diagnostic report: [id number] Signed: Callum Jackson MD 04/02/20 1203 Interpreted by: Denice Jacksonranscribed by: Callum Jackson Name Value Range Interpretation Code Description Data Elizabeth rce(s) Supporting Document(s) ID Date Data Source [id number] 03/31/2020 11:59:00 [place] [address] Patient Name: Madhavi Montalvo Exam Date: 03/31/20 : 1980 Ordering Doctor: Samina GARCIA Attending Doctor: Samina GARCIA CC: [facility] MRI BRAIN WITHOUT CONTRAST CLINICAL STATEMENT: Headaches. TECHNIQUE: MRI of the brain was performed without gadolinium. The following pulse sequences were performed: Sagittal T1 and axial T2, FLAIR, GRE, axial and coronal DWI. COMPARISON: None. FINDINGS: There is no acute parenchymal hemorrhage, extra-axial fluid collection, mass, mass-effect or midline shift. There is no evidence of restricted diffusion to suggest acute infarction. The ventricles are normal in size and configuration. Normal intracranial arterial flow-voids are present. The visualized paranasal sinuses and orbits appear unremarkable. IMPRESSION: Normal brain MRI. Professional interpretation performed at [facility] . End of diagnostic report: [id number] Signed: Callum Jackson MD 04/02/20 1202 Interpreted by: Delores Jacksonribed by: Callum Jackson Name Value Range Interpretation Code Description Data Elizabeth rce(s) Supporting Document(s) ID Date Data Source [id number] 03/31/2020 07:35:00 AM [facility] Name Value Range Interpretation Code Description Data Elizabeth rce(s) Supporting Document(s) WHITE BLOOD COUNT 5.66 10^3/uL 4.00-10.50 [facility] RED BLOOD COUNT 3.69 10^6/uL 3.90-5.20 [facility] HEMOGLOBIN 10.8 G/DL 11.5-15.6 L [facility] HEMATOCRIT 31.6 % 35.0-46.0 L [facility] MCV 85.6 FL 80.0-100.0 N [facility] MCH 29.3 PG 27.0-34.0 N [facility] MCHC 34.2 G/DL 32-36 N [facility] RDW 13.2 % 11.5-14.5 N [facility] PLATELET COUNT 165 10^3/uL 130-400 N [facility] MPV 11.3 FL 8.7-13.2 N [facility] GRAN % (AUTO) 37.1 % 42.0-75.0 L [facility] LYMPH % (AUTO) 52.1 % 20.0-51.0 H [facility] MONO % (AUTO) 7.4 % 2.0-15.0 N [facility] EOS % (AUTO) 2.3 % 0.0-11.0 N [facility] BASO % (AUTO) 0.9 % 0.0-2.0 N [facility] IG % (AUTO) 0.2 % 1.00-5.00 [facility] IG # (AUTO) 0.0 10^3/uL <0.5 [facility] GRAN # (AUTO) 2.10 10^3/uL 1.50-6.50 N [facility] LYMPH # (AUTO) 3.0 k/uL 1.0-5.0 N [facility] MONO # (AUTO) 0.42 k/uL 0.20-1.50 N [facility] EOS # (AUTO) 0.13 10^3/uL 0.00-1.10 N [facility] BASO # (AUTO) 0.05 10^3/uL 0.00-0.20 N [facility] ID Date Data Source [id number] 03/31/2020 07:59:00 AM EDT [facility] Name Value Range Interpretation Code Description Data Elizabeth rce(s) Supporting Document(s) SODIUM 143 MEQ/L 135-145 N [facility] POTASSIUM 4.3 MEQ/L 3.5-5.3 N [facility] CHLORIDE 111 MEQ/L 94-110 H [facility] CARBON DIOXIDE 25 MEQ/L 22-33 N [facility] ANION GAP 11 5-16 N [facility] BLOOD UREA NITRO 7 MG/DL 7-25 N [facility] CREATININE 0.7 MG/DL 0.6-1.4 [facility] GFR > 90.0 ML/MIN [facility] Stage G1 - Normal or high kidney functi on The GFR is an estimate of the Glomerular Filtration Rate. It is an aid to assess a patient's renal function. It is not a conclusive diagnosis of kidney disease. GFR normal is >=90 The MDRD GFR calculation is considered valid between the ages of 18 and 75 years only. BUN/CREAT RATIO 10 8-36 N [facility] GLUCOSE 79 MG/DL 70-100 N [facility] CA 8.6 MG/DL 8.7-10.5 L [facility] ID Date Data Source [id number] 03/30/2020 12:54:00 [place] [address] HEALTH INFORMATION MANAGEMENT PCM-Progress Note : [id number] Signed Patient: Madhavi Montalvo Acct:[id number] Un it: [id number] : 1980 Loc: ICU Room/Bed: ICU7-A Age/Sex: 39 / F ADM Date: 03/28/20 cc: Subjective Date of Service: 03/30/20 Subjective: Ms Montalvo is a 39 year old female with significant past medical history for asthma, chronic headaches, lupus, irritable bowel syndrome, fibromyalgia, and history of anoxic brain injurysent to the emergency room for acute on chronic headache on March 28, 2020. Patient reported that overa week's time she has been suffering from a worsening headache from baseline. Patient states he came on suddenly. She rates the headache anywhere from 10-14/10. The headache is diffuse and preventing her from sleeping at night. Headaches seem to worse from loud noises and bright lights. She denied any vision or neurological deficits. She was able to tolerate oral intake. She denied anyfever or chills. Facility was reporting change in personality from baseline as well. In the emergency room she had received acetaminophen, diphenhydramine, ketorolac, prochlorperazine, and one liter normal saline bolus. Head CT was unremarkable for any acute pathology. Chest x-ray was negative. Urinalysis was obtained from an existing Martínez catheter. Prior to discharge from [facility] she had complained of cough and shortness of breath. The facility was requesting COVID-19 testing prior to patient arrival back to the facility. She was referred to the hospitalist service for further evaluation. She had no cough or shortness of breath noted. She has a longstanding history of irritable bowel syndrome and diarrhea that is unchanged. She has had no fever. Myalgias at her baseline. No change in sense of smell or taste. Reason for Visit: Follow up on Intractable acute on chronic headache Rule out COVID-19 History of lupus History of fibromyalgia Chronic indwelling martínez catheter History of asthma History IBS History of depression Interval History: Patient admitted to hospitalist service. Chart, nurses notes, laboratory Interval History: Patient admitted to hospitalist service. Chart, nurses notes, laboratory findings, and radiology reports reviewed. VS noted. Patient was seen and examined at bedside. She is sleeping upon entering the room. She will answer questions appropriately but does not elaborate. Sumatriptan was added for better management for headaches. However patient states that they are the same. She did have an episode of nausea yesterday but this has resolved. She was able to tolerate her breakfast. COVID testing is negative at this time. However urinalysis showed presence of 3 or more organisms suggesting contamination. The initial urine was taken off an existing Martínez catheter. Because the patient continues to have symptoms of headache and malaise, I asked for the catheter to be changed. Repeat urinalysis does show probable UTI. Case was discussed with bethany to multiple drug allergies. Will start the patient on Primaxin 500 mg every 6 hours and follow- up on urinary cultures prior to discharge from the hospital to ensure patient is treated accordingly. Blood cultures preliminary show no growth after 48 hours. No leukocytosis, nuchal rigidity, or other signs of meningitis. General: Positive Fatigue and Malaise; Denies Chills HEENT: Positive Headache and Other (bright lights bother her); Denies Dysphagia Pulmonary: Denies Chest Pain, Cough and Shortness of Breath Cardiovascular: Denies Chest Pain and Dyspnea on Exertion Gastrointestinal: Positive Diarrhea (chronic/intermittent); Denies Abdominal Pain, Constipation, Melena and Nausea Genitourinary: Positive Rete ntion and Other (chronic indwelling catheter); Denies Hesitancy Musculoskeletal: Positive Joint stiffness/swelling and Other ("pain all over") Neurological: Positive Headaches and Weakness; Denies Change in Mental Status, Change in Speech and Confusion Skin Problem: Denies Rash Objective Vitals and I O: I O (Last 24 Hours) 03/28/20 03/29/20 03/30/20 23:59 23:59 23:59 Intake Total 1220 / 1220 600 / 600 880 / 880 Output Total 850 / 850 900 / 900 1050 / 1050 Balance 370 / 370 -300 / - 300 -170 / -170 Intake: IV 1100 / 1100 Acetaminophen Inj 1,000 mg In 100 / 100 100 ml @ 400 mls/hr IV ONCE ONE Rx#:[id number] Sodium Chloride 0.9% Infusion 1 1000 / 1000 ,000 ml @ 999 mls/hr IV ONCE ONE Rx#:[id number] Oral 120 / 120 600 / 600 880 / 880 Output: Urine 750 / 750 Output, Indwelling Catheter 850 / 850 150 / 150 1050 / 1050 Amount Other: Total, Intake Amount 120 480 400 Date of Last Bowel Movement 03/27/20 03/27/20 Total, Output Amount 058 384 5711 Voiding Method Indwelling Catheter Indwelling Catheter Weight 71.2 kg Vital Signs (Last 8 Hours) Temp Pulse BP Pulse Ox 03/30/20 11:33 98.6 F 03/30/20 08:54 75 98 03/30/20 08 :53 103/68 03/30/20 08:00 103/62 03/30/20 07:00 110/57 03/30/20 06:41 85 99 03/30/20 06:40 83 97 03/30/20 06:00 119/70 03/30/20 05:00 115/74 General: Alert, Cooperative (answer questions appropriately but will not elaborate) and Oriented x3 HEENT: Atraumatic and Normocephalic Neck: Supple; negative JVD Lungs: Clear to auscultation, Normal Air Movement and Chest rises and falls symmetrically; negative Crackles and Wheezing Cardiovascular: Lower extremity pulse 2+, Normal Rate, Normal S1, Normal S2 and Regular rhythm Abdomen: Normal Active Bowel Sound, Soft and Other (indwelling martínez catheter with dark, cloudy urine); negative Distended and Tenderness Extremities: negative Clubbing and Edema Skin: [place] and Warm Neurological: Awake/Oriented, Cranial nerves 3-12 NL and Sensation intact; negative Strength at 5/5 X4 ext Psych/Mental Status: Alert, Oriented x 3 and Blunt Affect Active Medications: Active Medications Acetaminophen (Tylenol Suppository) 650 mg RECTAL Q4HPRN PRN PRN Reason: HEADACHE Acetaminophen (Tylenol Tablet) 650 mg PO Q4HPRN PRN PRN Reason: HEADACHE Last Admin: 03/30/20 11:33 Dose: 650 mg Documented by: Al Hydroxide/Mg Hydroxide (Maalox Plus Susp (Liquid Antacid)) 15 ml PO Q4HPRN PRN PRN Reason: Indigestion Albuterol Sulfate (Ventolin Aerosol) 2.5 mg INHALATION QIDPRN PRN PRN Reason: Wheezing Buspirone HCl (Buspar Tablet) 10 mg PO BID [facility] Last Admin: 03/30/20 08:49 Dose: 10 mg Documented by: Duloxetine HCl (Cymbalta Capsule) 60 mg PO DAILY [facility] Last Admin: 03/30/20 08:49 Dose: 60 mg Documented by: Enoxaparin Sodium (Lovenox Inj) 40 mg SUBCUTAN Q24H [facility] Last Admin: 03/29/20 17:32 Dose: 40 mg Documented by: Escitalopram Oxalate (Lexapro Tablet) 5 mg PO DAILY [facility] Last Admin: 03/30/20 08:50 Dose: 5 mg Documented by: Folic Acid (Folic Acid Tablet) 1 mg PO DAILY [facility] Last Admin: 03/30/20 08:51 Dose: 1 mg Documented by: Gabapentin (Neurontin Capsule) 200 mg PO TID [facility] Last Admin: 03/30/20 08:48 Dose: 200 mg Documented by: Guaifenesin (Robitussin Plain Syrup Ud Cup) 200 mg PO Q4HPRN PRN PRN Reason: COUGH Hydroxychloroquine Sulfate (Plaquenil Tablet) 200 mg PO DAILY [facility] Last Admin: 03/30/20 08:48 Dose: 200 mg Documented by: Imipenem/Cilastatin Sodium 500 (mg/ Sodium Chloride) 100 mls @ 200 mls/hr IV Q6H [facility] Last Admin: 03/30/20 12:15 Dose: 200 mls/hr Documented by: Ketorolac Tromethamine (Toradol Injection) 30 mg IV Q6H PRN PRN Reason: SEVERE PAIN LEVEL 7-9 Stop: 04/03/20 13:37 Last Admin: 03/30/20 06:37 Dose: 30 mg Documented by: Levetiracetam (Keppra Tablet) 500 mg PO BID [facility] Last Admin: 03/30/20 08:49 Dose: 500 mg Documented by: Loperamide HCl (Imodium Capsule) 2 mg PO Q6HPRN PRN PRN Reason: DIARRHEA Magnesium Hydroxide (Milk Of Magnesia Susp Ud-Cup) 30 ml PO DAILYPRN PRN PRN Reason: CONSTIPATION M etoprolol Tartrate (Lopressor Tablet) 50 mg PO BID [facility] Miscellaneous Medication (Methotrexate Sodium [Trexall]) 7.5 mg PO Q7DAYS [facility] Ondansetron HCl (Zofran Injection) 4 mg IV PUSH Q4HPRN PRN PRN Reason: NAUSEA / VOMITING Pantoprazole Sodium (Protonix Tablet) 40 mg PO DAILY@0600-EMPTYSTOM [facility] Last Admin: 03/30/20 06:37 Dose: 40 mg Documented by: Senna (Senokot (Senna) 8.6 Mg Tablet) 2 tab PO BID [facility] Last Admin: 03/30/20 08:50 Dose: 2 tab Documented by: Sodium Chloride (Saline Lock Flush Protocol) 1 each IV FLUSH QSHIFT [facility] Last Admin: 03/30/20 08:51 Dose: 1 each Documented by: Sumatriptan Succinate (Imitrex Tablet) 50 mg PO Q2HPRN PRN PRN Reason: Migraine Headache Last Admin: 03/30/20 12:14 Dose: 50 mg Documented by: Thiamine HCl (Vitamin B-1 Tablet) 100 mg PO DAILY [facility] Last Admin: 03/30/20 08:50 Dose: 100 mg Documented by: Throat Lozenges (Chloraseptic Throat [place]) 1 applic MUC MEMB Q2HPRN PRN PRN Reason: SORE THROAT Tiotropium [place] (Spiriva Inhaler) 1 inhalation INHALATION RT-DAILY [facility] Last Admin: 03/30/20 07:05 Dose: Not Given Documented by: Trazodone HCl (Desyrel Tablet) 50 mg PO HS [facility] Result Diagrams: 03/29/20 06:56 03/29/20 06:56 Lab Results: Laboratory (Last 12 hours Results) 03/30/20 09:00 Urine Color STRAW Urine Appearance CLEAR Urine pH 6.5 Specific [place] (Man) 1.005 Urine Protein NEGATIVE Urine Glucose (UA) NEGATIVE Urine Ketones NEGATIVE Urine Occult Blood TRACE H Urine Nitrate POSITIVE H Urine Bilirubin NEGATIVE Urine Urobilinogen 0.2-1.0 Ur Leukocyte Esterase MODERATE H Urine WBC (Auto) 5-9 H Urine RBC (Auto) 1-2 Urine Bacteria (Auto) FEW Ur Epithelial Cells RARE Severe Sepsis Re-eval for PCM Severe Sepsis Re-evaluation Lungs: Present: Clear to auscultation, Normal Air Movement and Chest rises and falls symmetrically; Absent: Crackles and Wheezing Cardiovascular: Present: Lower extremity pulse 2+, Normal Rate, Normal S1, Normal S2 and Regular rhythm Assessment/Plan Assessment/Plan DVT Prophylaxis Pharmacologic: Lovenox (1) Head ache: Code(s): R51 - Headache Qualifiers: Headache chronicity pattern: chronic headache Headache type: unspecified Intractability: not intractable Qualified Code(s): R51 - Headache Status: Acute Present on Admission: Yes Plan: Acute on chronic headache of unclear etiology No nuchal rigidity, neck pain, recent trauma, recent change in medications CT the brain unremarkable No significant leukocytosis Suffers from chronic headaches/worse than baseline/ associated with light sensitivity and noise sensitivity Continue current regimen including sumatriptan as needed Treat underlying UTI Continue Toradol 30 mg IV every 6 hours as needed for severe pain Continue antiemetics (2) Suspected 2019 novel coronavirus infection: Code(s): Z20.828 - Contact with and (suspected) exposure to other viral communicable diseases Status: Acute Present on Admission: Yes Plan: Patient considered low suspicion Screening completed per [employer] driver care request prior to return Negative 03/30/2020 (3) Systemic lupus: Code(s): M32.9 - Systemic lupus erythematosus, unspecified Qualifiers: Systemic lupus erythematosus type: unspecified Systemic lupus erythematosus organ involvement: unspecified Qualified Code(s): M32.9 - Systemic lupus erythematosus, unspecified Status: Chronic Present on Admission: Yes Plan: Chronic. Stable. Continue home medications (4) Fibromyalgia: Code(s): M79.7 - Fibromyalgia Status: Chronic Present on Admission: Yes Plan: Chronic. Stable. Continue current home medications (5) Chronic indwelling Martínez catheter: Code(s): Z96.0 - Presence of urogenital implants Status: Chronic Present on Admission: Yes Plan: Chronic. Most likely secondary to neurogenic bladder in the setting of anoxic brain injury. Denies any urinary symptoms Initial urinalysis contaminated Repeat urinalysis suggestive of urinary tract infection No significant leukocytosis Multiple drug allergies Start Primaxin 500 mg every 6 hours Follow-up on urinary cultures and adjust therapy accordingly (6) IBS (irritable bowel syndrome): Code(s): K58.9 - Irritable bowel syndrome without diarrhea Qualifiers: Irritable bowel syndrome type: with diarrhea Qualified Code(s): K58.0 - Irritable bowel syndrome with diarrhea Status: Chronic Present on Admission: Yes Plan: Patient with chronic irritable bowel syndrome. Mostly diarrhea. Stable. No exacerbation. Monitor for now Start probiotics due to initiation of antibiotics (7) Major depressive disorder: Code(s): F32.9 - Major depressive disorder, single episode, unspecified Qualifiers: Major depression recurrence: unspecified whether recurrent Active/Remission status: remission status unspecified Qualified Code(s): F32.9 - Major depressive disorder, single episode, unspecified Status: Chronic Present on Admission: Yes Plan: Chronic. Stable. No signs of acute decompensation Continue home medications (8) Asthma: Code(s): J45.909 - Unspecified asthma, uncomplicated Qualifiers: Asthma severity: unspecified severity Asthma persistence: unspecified Asthma complication type: unspecified Qualified Code(s): J45.909 - Unspecified asthma, uncomplicated Status: Chronic Present on Admission: Yes Plan: Chronic. Stable. No signs of acute decompensation Continue home medications Code Status Resuscitation Status (Nurse/Provider Doc-Not Order): Full Code MIPS MIPS REVIEWED Did you review MIPS this visit?: Yes Tobacco Use:Preventative Care/Screening Performance Met:: 1036F: Pt screened for tobacco use, identified as non-user of tobacco Current Medications in Medical Record Performance Met:: G8427: Current Medications Documented Care Plan Performance Met:: 1123F:Adv Care plan discussed and surrogate decision maker documented. Heart Failure: REAGAN or ARB Therapy- LVSD LVEF less than 40% or moderate/severely depressed left ventricular systolic function?: No Heart Failure:Beta-Terrell Therapy- LVSD LVEF less than 40% or moderate/severely depressed left ventricular systolic function?: No Hospitalist Charges Worksheet Subject to change for billing criteria Did you complete your Hospitalist charges for this visit?: Yes Inpatient 79941 Subsequent INpt-Mod (less than/equal 25 minutes): Yes Signed By:Samnia GARCIA <<Signature on File>> Signed Date/Time: 03/30/20 1326 Co-Signer: Co-Signed Date/Time: Initializing User: Samina GARCIA 03/30/20 1254 1254 1254 Name Value Range Interpretation Code Description Data Elizabeth rce(s) Supporting Document(s) ID Date Data Source [id number] 03/30/2020 12:14:00 [place] [address] HEALTH INFORMATION MANAGEMENT Nutritional Care Progress Note : [id number] Signed Patient: Madhavi Montalvo Acct:[id number] Un it: [id number] : 1980 Loc: ICU Room/Bed: [facility] Age/Sex: 39 / F ADM Date: 03/28/20 cc: Nutrition Considerations - Considerations Assessment/PMH: Chief Complaint:[Headache with shortness of breath ] PMH:[Asthma, Chronic headache, Lupus, IBS, Fibromyalgia, and anoxic brain injury] Skin Status: Intact: Yes Eating Difficulties: No Problem Other Nu tritionally Related Considerations: Nausea Blood Pressure WNL: WNL 90/50- 139/89mmHg Herbal Supplement: No Catholic or Cultural Food Restrictions: No - Initial Average Food Intake Diet Before Admission: Regular Average Intake Before Admission: 75% - Labs/Meds Reviewed Current Labs: 03/29/20 06:56 03/29/20 06:56 Labs Reviewed: Yes Current Medications: Generic Name Dose Route Start Last Admin Trade Name Freq PRN Reason Stop Dose Admin Acetaminophen 650 mg 03/28/20 15:23 Tylenol Suppository RECTAL Q4HPRN PRN HEADACHE Acetaminophen 650 mg 03/28/20 15:23 03/30/20 11:33 Tylenol Tablet PO 650 mg Q4HPRN PRN Administration HEADACHE Al Hydroxide/Mg Hydroxide 15 ml 03/28/20 15:23 Maalox Plus Susp (Liquid Antacid) PO Q4HPRN PRN Indigestion Albuterol Sulfate 2.5 mg 03/28/20 15:23 Ventolin Aerosol INHALATION QIDPRN PRN Wheezing Buspirone HCl 10 mg 03/28/20 21:00 03/30/20 08:49 Buspar Tablet PO 10 mg BID [facility] Administration Duloxetine HCl 60 mg 03/29/20 09:00 03/30/20 08:49 Cymbalta Capsule PO 60 mg DAILY [facility] Administration Enoxaparin Sodium 40 mg 03/28/20 18:00 03/29/20 17:32 Lovenox Inj SUBCUTAN 40 mg Q24H [facility] Administration Escitalopram Oxalate 5 mg 03/29/20 09:00 03/30/20 08:50 Lexapro Tablet PO 5 mg DAILY [facility] Administration Folic Acid 1 mg 03/29/20 09:00 03/30/20 08:51 Folic Acid Tablet PO 1 mg DAILY [facility] Administration Gabapentin 200 mg 03/28/20 21:00 03/30/20 08:48 Neurontin Capsule PO 200 mg TID [facility] Administration Guaifenesin 200 mg 03/28/20 15:23 Robitussin Plain Syrup Ud Cup PO Q4HPRN PRN COUGH Hydroxychloroquine Sulfate 200 mg 03/29/20 09:00 03/30/20 08:48 Plaquenil Tablet PO 200 mg DAILY [facility] Administration Imipenem/Cilastatin Sodium 500 100 mls @ 200 mls/hr 03/30/20 12:00 mg/ Sodium Chloride IV Q6H [facility] Ketorolac Tromethamine 30 mg 03/29/20 13:40 03/30/20 06:37 Toradol Injection IV 04/03/20 13:37 30 mg Q6H PRN Administration SEVERE PAIN LEVEL 7-9 Levetiracetam 500 mg 03/28/20 21:00 03/30/20 08:49 Keppra Tablet PO 500 mg BID [facility] Administration Loperamide HCl 2 mg 03/28/20 15:23 Imodium Capsule PO Q6HPRN PRN DIARRHEA Magnesium Hydroxide 30 ml 03/28/20 15:23 Milk Of Magnesia Susp Ud-Cup PO DAILYPRN PRN CONSTIPATION Metoprolol Tartrate 50 mg 03/28/20 21:00 Lopressor Tablet PO BID [facility] Miscellaneous Medication 7.5 mg 04/04/20 09:00 Methotrexate Sodium [Trexall] PO Q7DAYS PATY Ondansetron HCl 4 mg 03/28/20 15:23 Zofran Injection IV PUSH Q4HPRN PRN NAUSEA / VOMITING Pantoprazole Sodium 40 mg 03/29/20 06:00 03/30/20 06:37 Protonix Tablet PO 40 mg DAILY@0600-EMPTYSTOM PATY Administration Senna 2 tab 03/28/20 21:00 03/30/20 08:50 Senokot (Senna) 8.6 Mg Tablet PO 2 tab BID [facility] Administration Sodium Chloride 1 each 03/28/20 16:00 03/30/20 08:51 Saline Lock Flush Protocol IV FLUSH 1 each QSHIFT PATY Administration Sumatriptan Succinate 50 mg 03/28/20 15:23 03/30/20 00:37 Imitrex Tablet PO 50 mg Q2HPRN PRN Administration Migraine Headache Thiamine HCl 100 mg 03/29/20 09:00 03/30/20 08:50 Vitamin B-1 Tablet PO 100 mg DAILY PATY Administration Throat Lozenges 1 applic 03/28/20 15:23 Chloras eptic Throat [place] MUC MEMB Q2HPRN PRN SORE THROAT Tiotropium [place] 1 inhalation 03/29/20 07:00 03/30/20 07:05 Spiriva Inhaler INHALATION Not Given RT-DAILY PATY Trazodone HCl 50 mg 03/30/20 21:00 Desyrel Tablet PO HS PATY Discontinued Medications Generic Name Dose Route Start Last Admin Trade Name Freq PRN Reason Stop Dose Admin Diphenhydramine HCl 50 mg 03/28/20 09:48 03/28/20 10:22 Benadryl Injection IV PUSH 03/28/20 09:49 50 mg ONCE ONE Administration Sodium Chloride 1,000 mls @ 999 mls/hr 03/28/20 09:48 03/28/20 11:10 Sodium Chloride 0.9% Plain IV 03/28/20 10:48 Infused ONCE ONE Infusion Acetaminophen 1,000 mg in 100 mls @ 400 mls/hr 03/28/20 09:51 03/28/20 10:30 Ofirmev 1000 Mg In 100 Ml IV 03/28/20 10:05 Infused ONCE ONE Infusion Ketorolac Tromethamine 30 mg 03/28/20 09:48 03/28/20 10:22 Toradol Injection IV 03/28/20 09:49 30 mg ONCE ONE Administration Ketorolac Tromethamine 30 mg 03/29/20 13:35 Toradol Injection IV 04/03/20 13:37 Q6H PRN MODERATE PAIN LEVEL 4-6 Prochlorperazine Edisylate 5 mg 03/28/20 09:48 03/28/20 10:22 Compazine Injection IV PUSH 03/28/20 09:49 5 mg ONCE ONE Administration Trazodone HCl 50 mg 03/29/20 09:00 03/29/20 08:29 Desyrel Tablet PO 03/30/20 00:02 Not Given DAILY PATY Trazodone HCl 50 mg 03/29/20 23:59 03/30/20 00:24 Desyrel Tablet PO 03/30/20 00:00 50 mg NOW ONE Administration Medications Reviewed: Yes Basic Energy Expenditure - Height/Weight Current Weight:: 71.2 kg Height: 1.65 m - BEE Basal Energy Expenditure (BEE): 1377.25 Total Energy Needs:: 1500 kcals Protein Needs:: 50-60 gms Fluid Needs:: 1800 cc - IBW Calculated [place] Body Weight (IBW): 124.80 Adjusted Body Weight (ABW): 132.84 % [place] Body Weight (%IBW): 126 Body Mass Index (BMI): 26.1 Recent Weight Change: None Reported Nutritional Care Priority Stat - - Malnutrition Nutritional Status: Not Malnurished - - Weight Loss ASPEN/Academy Consensus Statement:: Although malnutrition can occur at any BMI. Individuals at either extreme of BMI. May be at increased risk of poor nutritional status. Priority Points: 0: BMI 18.6-39.9 - - Diagnosis/Condition ASPEN/[place] Consensus Statement:: History and Clinical Diagnosis: The Chief Complaint and Past Medical History. Can be Helpful in Raising Suspicion for. Increased Risk of Malnutrition and. The Presence or Absence of Inflammation. Priority Points: 3: Anorexia/Bulimia - Total Points Total Points: 3 Interventions/Recommendations Interventions/Recommendations: no nutrition related interventions suggested at this time Monitor and Evaluation Comment: weights and labs as available Nutrition Level of Care - Status Classifications No Nutritional Risk Level: Follow up PRN Signed By:Brendan Prieto <<Signature on File>> Signed Date/Time: 03/30/201216 Co-Signer: Co-Signed Date/Time: Initializing User: Brendan Prieto 03/16 13 13 Name Value Range Interpretation Code Description Data Elizabeth rce(s) Supporting Document(s) ID Date Data Source [id number] 03/30/2020 10:45:00 AM EDT [facility] Run: 04/02/20 0811 INTERFACED REPORT Name: Madhavi Montalvo Age/Sex: 39/F Location: [facility] Acct: [id number] Unit: [id number] Status: ADM IN Room/Bed: 311-A Re03/28/20 Disch: Att Dr: Samina GARCIA Specimen #: [id number] Ordered : 03/30/20 Collected : 03/30/20 By: CHANDNI Received: 03/30/20 By: ALICJA Source: URINE CATH Specimen Description: Comments: Recent Antibiotic Therapy N Procedure Result COLONY COUNT Final COLONY COUNT GREATER THAN 100,000 CFU/ML URINE CULTURE Final COLIFORMS MANY Organism 1 ESCHERICHIA COLI Organism 2 KLEBSIELLA PNEUMONIAE ESCHERICHIA COLI KLEBSIELLA PNEUMONIAE GUNNER Int GUNNER Int ------ --- ------ --- AMIKACIN <=16 S <=16 S AMPICILLIN >16 R >16 R AMPICILLIN/SULBACTAM 16/8 I <=8/4 S AZTREONAM 16 I <=4 S CEFAZOLIN >16 R <=2 S CEFEPIME <=2 S <=2 S CEFTAZIDIME 4 S <=1 S CEFTRIAXONE <=1 S <=1 S CIPROFLOXACIN <=1 S <=1 S GENTAMICIN <=4 S <=4 S IMIPENEM <=1 S <=1 S LEVOFLOXACIN <=2 S <=2 S MEROPENEM <=1 S <=1 S NITROFURANTOIN 64 I <=32 S TETRACYCLINE <=4 S <=4 S TOBRAMYCIN <=4 S <=4 S TRIMETHOPRIM/SULFAMETHOXAZOLE <=2/38 S <=2/38 S PIPERACILLIN/TAZOBACTAM <=16 S <=16 S 1. ESCHERICHIA COLI GUNNER Int --------- --- AMIKACIN <=16 S AMPICILLIN >16 R AMPICILLIN/SULBACTAM 16/8 I AZTREONAM 16 I CEFAZOLIN >16 R CEFEPIME <=2 S CEFTAZIDIME 4 S CEFTRIAXONE <=1 S CIPROFLOXACIN <=1 S GENTAMICIN <=4 S Run: 04/02/20 0811 INTERFACED REPORT ------- ----- Specimen #: [id number] (Continued) Ordered : 03/30/20 Collected : 03/30/20 By: CHANDNI Received: 03/30/20 By: KHOPPER Procedure Result URINE CULTURE Final (continued) 1. ESCHERICHIA COLI (continued) GUNNER Int --------- --- IMIPENEM <=1 S LEVOFLOXACIN <=2 S MEROPENEM <=1 S NITROFURANTOIN 64 I TETRACYCLINE <=4 S TOBRAMYCIN <=4 S TRIMETHOPRIM/SULFAMETHOXAZOLE <=2/38 S PIPERACILLIN/TAZOBACTAM <=16 S 2. KLEBSIELLA PNEUMONIAE GUNNER Int --------- --- AMIKACIN <=16 S AMPICILLIN >16 R AMPICILLIN/SULBACTAM <=8/4 S AZTREONAM <=4 S CEFAZOLIN <=2 S CEFEPIME <=2 S CEFTAZIDIME <=1 S CEFTRIAXONE <=1 S CIPROFLOXACIN <=1 S GENTAMICIN <=4 S IMIPENEM <=1 S LEVOFLOXACIN <=2 S MEROPENEM <=1 S NITROFURANTOIN <=32 S TETRACYCLINE <=4 S TOBRAMYCIN <=4 S TRIMETHOPRIM/SULFAMETHOXAZOLE <=2/38 S PIPERACILLIN/TAZOBACTAM <=16 S S = Susceptible MS = Moderately Susceptible I = Intermediate R = Resistant SOBEIDA = Beta Lactamase Positive GUNNER = MCG/mL BLANK = Not Tested or Advisable URINE CULTURE Preliminary (Corrected) COLIFORMS MANY Organism 1 ESCHERICHIA COLI Run: 04/02/20810 INTERFACED REPORT Specimen #: [id number] (Continued) Ordered : 03/30/20 Collected : 03/30/20 By: CHANDNI Received: 03/30/20 By: ALICJA Procedure Result URINE CULTURE Preliminary (Corrected) (continued) 1. ESCHERICHIA COLI GUNNER Int --------- --- AMIKACIN <=16 S AMPICILLIN >16 R AMPICILLIN/SULBACTAM 16/8 I AZTREONAM 16 I CEFAZOLIN >16 R CEFEPIME <=2 S CEFTAZIDIME 4 S CEFTRIAXONE <=1 S CIPROFLOXACIN <=1 S GENTAMICIN <=4 S IMIPENEM <=1 S LEVOFLOXACIN <=2 S MEROPENEM <=1 S NITROFURANTOIN 64 I TETRACYCLINE <=4 S TOBRAMYCIN <=4 S TRIMETHOPRIM/SULFAMETHOXAZOLE <=2/38 S PIPERACILLIN/TAZOBACTAM <=16 S S = Susceptible MS = Moderately Susceptible I = Intermediate R = Resistant SOBEIDA = Beta Lactamase Positive GUNNER = MCG/mL BLANK = Not Tested or Advisable URINE CULTURE Preliminary (Corrected) COLIFORMS MANY END OF REPORT Name Value Range Interpretation Code Description Data Elizabeth rce(s) Supporting Document(s) COLOR,UR STRAW YELLOW [facility] APPEARANCE,UR CLEAR CLEAR [facility] PH,UR 6.5 5.0-8.0 [facility] SPECIFIC GRAVITY,UR 1.005 1.002-1.035 N [facility] PROTEIN,UR NEGATIVE MG/DL NEGATIVE [facility] GLUCOSE, UR NEGATIVE MG/DL NEGATIVE [facility] KETONES,UR NEGATIVE MG/DL NEGATIVE [facility] OCCULT BLOOD,UR TRACE NEGATIVE A [facility] NITRATE,UR POSITIVE NEGATIVE A [facility] LEUKOCYTE ESTERASE ,UR MODERATE NEGATIVE A [facility] BILIRUBIN,UR NEGATIVE NEGATIVE [facility] UROBILINOGEN,UR 0.2-1.0 EU MG/DL NEG-0-1.0 [facility] RBC,UR 1-2 PER HPF 0-2 [facility] WBC,UR 5-9 PER HPF <5 A [facility] URINE EPITH RARE PER/LPF FEW-MOD [facility] BACTERIA,UR FEW PER HPF NONE [facility] ID Date Data Source [id number] 04/02/2020 08:10:00 AM EDT [facility] Run: 04/02/20 0811 INTERFACED REPORT Name: Madhavi Montalvo Age/Sex: 39/F Location: [facility] Acct: [id number] Unit: [id number] Status: ADM IN Room/Bed: 311-A Re03/28/20 Disch: Glenn Dr: Samina GARCIA Specimen #: [id number] Ordered : 03/30/20 Collected : 03/30/20 By: CHANDNI Received: 03/30/20 By: ALICJA Source: URINE CATH Specimen Description: Comments: Recent Antibiotic Therapy N Procedure Result COLONY COUNT Final COLONY COUNT GREATER THAN 100,000 CFU/ML URINE CULTURE Final COLIFORMS MANY Organism 1 ESCHERICHIA COLI Organism 2 KLEBSIELLA PNEUMONIAE ESCHERICHIA COLI KLEBSIELLA PNEUMONIAE GUNNER Int GUNNER Int ------ --- ------ --- AMIKACIN <=16 S <=16 S AMPICILLIN >16 R >16 R AMPICILLIN/SULBACTAM 16/8 I <=8/4 S AZTREONAM 16 I <=4 S CEFAZOLIN >16 R <=2 S CEFEPIME <=2 S <=2 S CEFTAZIDIME 4 S <=1 S CEFTRIAXONE <=1 S <=1 S CIPROFLOXACIN <=1 S <=1 S GENTAMICIN <=4 S <=4 S IMIPENEM <=1 S <=1 S LEVOFLOXACIN <=2 S <=2 S MEROPENEM <=1 S <=1 S NITROFURANTOIN 64 I <=32 S TETRACYCLINE <=4 S <=4 S TOBRAMYCIN <=4 S <=4 S TRIMETHOPRIM/SULFAMETHOXAZOLE <=2/38 S <=2/38 S PIPERACILLIN/TAZOBACTAM <=16 S <=16 S 1. ESCHERICHIA COLI GUNNER Int --------- --- AMIKACIN <=16 S AMPICILLIN >16 R AMPICILLIN/SULBACTAM 16/8 I AZTREONAM 16 I CEFAZOLIN >16 R CEFEPIME <=2 S CEFTAZIDIME 4 S CEFTRIAXONE <=1 S CIPROFLOXACIN <=1 S GENTAMICIN <=4 S Run: 04/02/20 0811 INTERFACED REPORT ------- ----- Specimen #: [id number] (Continued) Ordered : 03/30/20 Collected : 03/30/20 By: CHANDNI Received: 03/30/20 By: ALICJA Procedure Result URINE CULTURE Final (continued) 1. ESCHERICHIA COLI (continued) GUNNER Int --------- --- IMIPENEM <=1 S LEVOFLOXACIN <=2 S MEROPENEM <=1 S NITROFURANTOIN 64 I TETRACYCLINE <=4 S TOBRAMYCIN <=4 S TRIMETHOPRIM/SULFAMETHOXAZOLE <=2/38 S PIPERACILLIN/TAZOBACTAM <=16 S 2. KLEBSIELLA PNEUMONIAE GUNNER Int --------- --- AMIKACIN <=16 S AMPICILLIN >16 R AMPICILLIN/SULBACTAM <=8/4 S AZTREONAM <=4 S CEFAZOLIN <=2 S CEFEPIME <=2 S CEFTAZIDIME <=1 S CEFTRIAXONE <=1 S CIPROFLOXACIN <=1 S GENTAMICIN <=4 S IMIPENEM <=1 S LEVOFLOXACIN <=2 S MEROPENEM <=1 S NITROFURANTOIN <=32 S TETRACYCLINE <=4 S TOBRAMYCIN <=4 S TRIMETHOPRIM/SULFAMETHOXAZOLE <=2/38 S PIPERACILLIN/TAZOBACTAM <=16 S S = Susceptible MS = Moderately Susceptible I = Intermediate R = Resistant SOBEIDA = Beta Lactamase Positive GUNNER = MCG/mL BLANK = Not Tested or Advisable URINE CULTURE Preliminary (Corrected) COLIFORMS MANY Organism 1 ESCHERICHIA COLI Run: 04/02/20810 INTERFACED REPORT Specimen #: [id number] (Continued) Ordered : 03/30/20 Collected : 03/30/20 By: CHANDNI Received: 03/30/20 By: ALICJA Procedure Result URINE CULTURE Preliminary (Corrected) (continued) 1. ESCHERICHIA COLI GUNNER Int --------- --- AMIKACIN <=16 S AMPICILLIN >16 R AMPICILLIN/SULBACTAM 16/8 I AZTREONAM 16 I CEFAZOLIN >16 R CEFEPIME <=2 S CEFTAZIDIME 4 S CEFTRIAXONE <=1 S CIPROFLOXACIN <=1 S GENTAMICIN <=4 S IMIPENEM <=1 S LEVOFLOXACIN <=2 S MEROPENEM <=1 S NITROFURANTOIN 64 I TETRACYCLINE <=4 S TOBRAMYCIN <=4 S TRIMETHOPRIM/SULFAMETHOXAZOLE <=2/38 S PIPERACILLIN/TAZOBACTAM <=16 S S = Susceptible MS = Moderately Susceptible I = Intermediate R = Resistant SOBEIDA = Beta Lactamase Positive GUNNER = MCG/mL BLANK = Not Tested or Advisable URINE CULTURE Preliminary (Corrected) COLIFORMS MANY END OF REPORT Name Value Range Interpretation Code Description Data Elizabeth rce(s) Supporting Document(s) ID Date Data Source [id number] 03/29/2020 01:13:00 PM EDT [address] [address] HEALTH INFORMATION MANAGEMENT PCM-Progress Note : [id number] Signed Patient: Madhavi Montalvo Acct:[id number] it: [id number] : 1980 Loc: [facility] Room/Bed: 412-A Age/Sex: 39 / F ADM Date: 03/28/20 cc: Subjective Date of Service: 03/29/20 Subjective: This patient is a 39 yo F with a past medical history of Asthma, Chronic headache, Lupus, IBS, Fibromyalgia, and anoxic brain injury that was sent to the ER this morning from her [place] ([place]) for complaints of a headache. She states she has had the headache for over a week. Came on suddenly. She rates the headache anywhere between a 10/10 to a 14/10. She has nausea with vomiting, but states this is no different from her usual symptoms from Bulimia. The headache is diffuse. Prevents her from sleeping at night. Worsened by loud sounds and bright lights. She says sometimes it improves but there is nothing she can do to make it b cecilia. She denies visual changes or other focal deficits. She has a history of chronic headache and migraines but states this is more painful. Still tolerating PO. Denies fever orchills. Denies changes in medicines. In the ED she received tylenol, dyphenhydramine, ketorolac, prochlorperazine, and a 1L NS bolus. Head CT was negative for acute disease and Chest Xray was negative for acute pathology. Before discharge she complained for shortness of breath and cough at the [place]. Because of this they tested for COVID before the patient could return. When evaluated by hospitalist staff in the ED she was on RA. Not coughing, and not currently complaining of any SOB. She says she doesn't know when it started but it had been a while. She has long standing history of IBS and diarrhea that is unchanged. Denies fever. Myalgias are at her baseline and unchanged. No change in sense of smell or taste Interval History: Patient did receive 1 dose of ketorolac 30 mg IV in ER. Sumatriptan also been added on. This morning she states that her headache is just about the same. It is not really much better. She states that she still is slightly nauseated but she is tolerating p.o. Without any issues. She has been up walking around. Currently waiting on COVID-19 test to come back. This morning she is denying any shortness of breath, or cough. She has a Martínez in. She denies any current dizziness or weakness. General: Denies Chills and Fatigue HEENT: Positive Headache; Denies Lightheaded/Dizziness Pulmonary: Denies Chest Pain, Cough and Shortness of Breath Cardiovascular: Denies Chest Pain and Leg Swelling Gastrointestinal: Positive Nausea; Denies Abdominal Pain and Vomiting Musculoskeletal: Denies Neck Pain and Back Pain Neurological: Positive Headaches; Denies Change in Mental Status, Change in Speech, Confusion, Numbness and Weakness Skin Problem: Denies Rash Objective Vitals and I O: I O (Last 24 Hours) 03/27/20 03/28/20 03/29/20 23:59 23:59 23:59 Intake Total 1220 / 1220 120 / 120 Output Total 850 / 850 750 / 750 Balance 370 / 370 -630 / -630 Intake: IV 1100 / 1100 Acetaminophen Inj 1,000 mg In 100 / 100 100 ml @ 400 mls/hr IV ONCE ONE Rx#:[id number] Sodium Chloride 0.9% Infusion 1 1000 / 1000 ,000 ml @ 999 mls/hr IV ONCE ONE Rx#:[id number] Oral 120 / 120 120 / 120 Output: Urine 750 / 750 Output, Indwelling Catheter 850 / 850 Amount Other: Total, Intake Amount 120 120 Date of Last Bowel Movement 03/27/20 03/27/20 Total, Output Amount 850 750 Voiding Method Indwelling Catheter Indwelling Catheter Weight 71.2 kg Vital Signs (Last 8 Hours) Temp Pulse Resp BP Pulse Ox 03/29/20 09:18 98.4 F 03/29/20 08:20 70 16 98 03/29/20 08:16 70 16 98 03/29/20 08:01 99.0 F 64 18 113/66 97 General: Alert and Cooperative HEENT: Atraumatic, EOMI and Normocephalic Neck: Supple; negative JVD Lungs: Clear to auscultation, Normal Air Movement and Chest rises and falls symmetrically Cardiovascular: Lower extremity pulse 2+, Normal Rate, Normal S1, Normal S2 and Regular rhythm; negative Lower extremity edema and Murmurs Abdomen: Normal Active Bowel Sound, Soft and Flat; negative Distended, Rigid, Tenderness, Guarding and Masses Extremities: negative Edema Skin: negative Lesions Neurological: Awake/Oriented and Drowsy Psych/Mental Status: Alert and Proper Affect; negative Agitation and Blunt Affect Active Medications: Active Medications Acetaminophen (Tylenol Suppository) 650 mg RECTAL Q4HPRN PRN PRN Reason: HEADACHE Acetaminophen (Tylenol Tablet) 650 mg PO Q4HPRN PRN PRN Reason: HEADACHE Last Admin: 03/29/20 09:18 Dose: 650 mg Documented by: Al Hydroxide/Mg Hydroxide (Maalox Plus Susp (Liquid Antacid)) 15 ml PO Q4HPRN PRN PRN Reason: Indigestion Albuterol Sulfate (Ventolin Aerosol) 2.5 mg INHALATION QIDPRN PRN PRN Reason: Wheezing Buspirone HCl (Buspar Tablet) 10 mg PO BID [facility] Last Admin: 03/29/20 08:22 Dose: 10 mg Documented by: Duloxetine HCl (Cymbalta Capsule) 60 mg PO DAILY [facility] Last Admin: 03/29/20 08:22 Dose: 60 mg Documented by: Enoxaparin Sodium (Lovenox Inj) 40 mg SUBCUTAN Q24H [facility] Last Admin: 03/28/20 18:05 Dose: 40 mg Documented by: Escitalopram Oxalate (Lexapro Tablet) 5 mg PO DAILY [facility] Last Admin: 03/29/20 08:23 Dose: 5 mg Documented by: Folic Acid (Folic Acid Tablet) 1 mg PO DAILY [facility] Last Admin: 03/29/20 08:24 Dose: 1 mg Documented by: Gabapentin (Neurontin Capsule) 200 mg PO TID [facility] Last Admin: 03/29/20 08:22 Dose: 200 mg Documented by: Guaifenesin (Robitussin Plain Syrup Ud Cup) 200 mg PO Q4HPRN PRN PRN Reason: COUGH Hydroxychloroquine Sulfate (Plaquenil Tablet) 200 mg PO DAILY [facility] Last Admin: 03/29/20 09:19 Dose: 200 mg Documented by: Levetiracetam (Keppra Tablet) 500 mg PO BID [facility] Last Admin: 03/29/20 08:24 Dose: 500 mg Documented by: Loperamide HCl (Imodium Capsule) 2 mg PO Q6HPRN PRN PRN Reason: DIARRHEA Magnesium Hydroxide (Milk Of Magnesia Susp Ud-Cup) 30 ml PO DAILYPRN PRN PRN Reason: CONSTIPATION Metoprolol Tartrate (Lopressor Tablet) 50 mg PO BID [facility] Miscellaneous Medication (Methotrexate Sodium [Trexall]) 7.5 mg PO Q7DAYS [facility] Ondansetron HCl (Zofran Injection) 4 mg IV PUSH Q4HPRN PRN PRN Reason: NAUSEA / VOMITING Pantoprazole Sodium (Protonix Tablet) 40 mg PO DAILY@0600- EMPTYSTOM [facility] Last Admin: 03/29/20 05:09 Dose: 40 mg Documented by: Senna (Senokot (Senna) 8.6 Mg Tablet) 2 tab PO BID [facility] Last Admin: 03/29/20 08:25 Dose: Not Given Documented by: Sodium Chloride (Saline Lock Flush Protocol) 1 each IV FLUSH QSHIFT [facility] Last Admin: 03/29/20 08:29 Dose: 1 each Documented by: Sumatriptan Succinate (Imitrex Tablet) 50 mg PO Q2HPRN PRN PRN Reason: Migraine Headache Last Admin: 03/29/20 08:23 Dose: 50 mg Documented by: Thiamine HCl (Vitamin B-1 Tablet) 100 mg PO DAILY [facility] Last Admin: 03/29/20 08:25 Dose: 100 mg Documented by: Throat Lozenges (Chloraseptic Throat [place]) 1 applic MUC MEMB Q2HPRN PRN PRN Reason: SORE THROAT Tiotropium [place] (Spiriva Inhaler) 1 inhalation INHALATION RT-DAILY [facility] Last Admin: 03/29/20 08:20 Dose: 1 inhalation Documented by: Trazodone HCl (Desyrel Tablet) 50 mg PO DAILY [facility] Last Admin: 03/29/20 08:29 Dose: Not Given Documented by: Result Diagrams: 03/29/20 06:56 03/29/20 06:56 Lab Results: Microbiology (Last 12 Hour Results- Final) 03/28/20 09:47 Urine,Clean Catch [place] Count - Final 03/28/20 09:47 Urine,Clean Catch Urine Culture - Final Laboratory (Last 12 hours Results) 03/29/20 03/29/20 06:56 06:56 WBC 5.34 RBC 3.97 Hgb 11.7 D Hct 34.4 L MCV 86.6 MCH 29.5 MCHC 34.0 RDW 13.2 Plt Count 193 D MPV 10.6 Gran % (Auto) 36.7 L Lymph % (Auto) 51.7 H [place] % (Auto) 7.5 Eos % (Auto) 2.4 Baso % (Auto) 1.5 Nucleat RBC Rel Count Not Reportable Gran # 1.96 Lymph # (Auto) 2.8 [place] # (Auto) 0.40 Eos # (Auto) 0.13 Baso # (Auto) 0.08 Immature Gran # (Auto) 0.0 Absolute Nucleated RBC Not Reportable Immature Gran % 0.2 Sodium 143 Potassium 4.1 Chloride 111 H Carbon Dioxide 26 Anion Gap 10 BUN 9 Creatinine 0.7 Estimated GFR (MDRD) > 90.0 BUN/Creatinine Ratio 12 Glucose 86 Calcium 8.5 L Severe Sepsis Re-eval for PCM Severe Sepsis Re-evaluation Lungs: Present: Clear to auscultation, Normal Air Movement and Chest rises and falls symmetrically Cardiovascular: Present: Lower extremity pulse 2+, Normal Rate, Normal S1, Normal S2 and Regular rhythm; Absent: Lower extremity edema and Murmurs Assessment/Plan Assessment/Plan Assessment/Plan: 1. Headache CT scan negative Chronic VELEZ that is worse than normal. No focal deficits. Toraldol not helping much, per pt VELEZ is still the same as on admit Received 30 mg IV on admit, added on PRN for severe pain Not able to tolerate reglan, on zofran for nausea dihydroergotamine has drug reactions with current medication Sumatriptan added on at admit 2. Rule out COVID Low suspicion but will need to be negative before returning to [facility] -not back yet 3. Lupus Continue home meds 4. Fibromyalgia - home medication 5. Indwelling martínez -currently not having any urinary symptoms, dirty urine, afebrile and no elevated WBC 6. Chronic VELEZ 7. Asthma Home meds 8. IBS - Stable 9. Major depression - continue home meds. DVT Prophylaxis Pharmacologic: Lovenox (1) Head ache: Code(s): R51 - Headache Qualifiers: Headache chronicity pattern: chronic headache Headache type: unspecified Intractability: not intractable Qualified Code(s): R51 - Headache Status: Acute (2) Suspected 2019 novel coronavirus infection: Code(s): Z20.828 - Contact with and (suspected) exposure to other viral communicable diseases Status: Acute (3) Gastric bypass status for obesity: Code(s): Z98.84 - Bariatric surgery status Status: Acute (4) Chronic headaches: Code(s): R51 - Headache Status: Acute (5) Chronic indwelling Martínez catheter: Code(s): Z96.0 - Presence of urogenital implants Status: Acute (6) Fibromyalgia: Code(s): M79.7 - Fi bromyalgia Status: Acute (7) HTN (hypertension): Code(s): I10 - Essential (primary) hypertension Status: Chronic (8) Muscle weakness: Code(s): M62.81 - Muscle weakness (generalized) Status: Acute (9) Other abnormalities of gait and mobility: Code(s): R26.89 - Other abnormalities of gait and mobility Status: Acute (10) Obstructive and reflux uropathy: Code(s): N13.9 - Obstructive and reflux uropathy, unspecified Status: Acute (11) Systemic lupus: Code(s): M32.9 - Systemic lupus erythematosus, unspecified Status: Acute (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 Status: Acute (13) IBS (irritable bowel syndrome): Code(s): K58.9 - Irritable bowel syndrome without diarrhea Status: Acute (14) Major depressive disorder: Code(s): F32.9 - Major depressive disorder, single episode, unspecified Status: Acute (15) Anorexia: Code(s): R63.0 - Anorexia Status: Acute (16) Asthma: Code(s): J45.909 - Unspecified asthma, uncomplicated Status: Acute (17) Wernicke encephalopathy: Code(s): E51.2 - Wernicke's encephalopathy Status: Acute (18) Bradycardia: Code(s): R00.1 - Bradycardia, unspecified Status: Acute MIPS MIPS REVIEWED Did you review MIPS this visit?: Yes Tobacco Use:Preventative Care/Screening Performance Met:: 1036F: Pt screened for tobacco use, identified as non-user of tobacco Current Medications in Medical Record Performance Met:: G8427: Current Medications Documented Care Plan Performance Met:: 1123F:Adv Care plan discussed and surrogate decision maker documented. Heart Failure: REAGAN or ARB Therapy- LVSD LVEF less than 40% or moderate/severely depressed left ventricular systolic function?: No Heart Failure:Beta-Terrell Therapy- LVSD LVEF less than 40% or moderate/severely depressed left ventricular systolic function?: No Hosp italist Charges Worksheet Subject to change for billing criteria Did you complete your Hospitalist charges for this visit?: Yes Inpatient 70541 Subsequent INpt-Complex (less than/equal 35 minutes): Yes Signed By:Sandee Grullon MD <<Signature on File>> Signed Date/Time: 03/29/20 1357 Co-Signer: Isidro Sun MD Co-Signed Date/Time: 03/29/20 9376 Initializing User: Sandee Grullon MD 0 03/29/20 1313 1313 1313 Name Value Range Interpretation Code Description Data Elizabeth rce(s) Supporting Document(s) ID Date Data Source [id number] 03/29/2020 07:28:00 AM [facility] Name Value Range Interpretation Code Description Data Elizabeth rce(s) Supporting Document(s) SODIUM 143 MEQ/L 135-145 N [facility] POTASSIUM 4.1 MEQ/L 3.5-5.3 [facility] CHLORIDE 111 MEQ/L 94-110 H [facility] CARBON DIOXIDE 26 MEQ/L 22-33 N [facility] ANION GAP 10 5-16 N [facility] BLOOD UREA NITRO 9 MG/DL 7-25 N [facility] CREATININE 0.7 MG/DL 0.6-1.4 N [facility] GFR > 90.0 ML/MIN [facility] Stage G1 - Normal or high kidney functi on The GFR is an estimate of the Glomerular Filtration Rate. It is an aid to assess a patient's renal function. It is not a conclusive diagnosis of kidney disease. GFR normal is >=90 The MDRD GFR calculation is considered valid between the ages of 18 and 75 years only. BUN/CREAT RATIO 12 8-36 N [facility] GLUCOSE 86 MG/DL 70-100 N [facility] CA 8.5 MG/DL 8.7-10.5 L [facility] ID Date Data Source [id number] 03/29/2020 07:23:00 AM [facility] [place] [facility] Name Value Range Interpretation Code Description Data Elizabeth rce(s) Supporting Document(s) WHITE BLOOD COUNT 5.34 10^3/uL 4.00-10.50 N [facility] ealth RED BLOOD COUNT 3.97 10^6/uL 3.90-5.20 N [facility] th HEMOGLOBIN 11.7 G/DL 11.5-15.6 [facility] HEMATOCRIT 34.4 % 35.0-46.0 L [facility] MCV 86.6 FL 80.0-100.0 [facility] MCH 29.5 PG 27.0-34.0 [facility] MCHC 34.0 G/DL 32-36 [facility] RDW 13.2 % 11.5-14.5 [facility] PLATELET COUNT 193 10^3/uL 130-400 [facility] MPV 10.6 FL 8.7-13.2 N [facility] GRAN % (AUTO) 36.7 % 42.0-75.0 L [facility] LYMPH % (AUTO) 51.7 % 20.0-51.0 H [facility] MONO % (AUTO) 7.5 % 2.0-15.0 N [facility] EOS % (AUTO) 2.4 % 0.0-11.0 N [facility] BASO % (AUTO) 1.5 % 0.0-2.0 N [facility] IG % (AUTO) 0.2 % 1.00-5.00 [facility] IG # (AUTO) 0.0 10^3/uL <0.5 [facility] GRAN # (AUTO) 1.96 10^3/uL 1.50-6.50 N [facility] LYMPH # (AUTO) 2.8 k/uL 1.0-5.0 N [facility] MONO # (AUTO) 0.40 k/uL 0.20-1.50 N [facility] EOS # (AUTO) 0.13 10^3/uL 0.00-1.10 N [facility] BASO # (AUTO) 0.08 10^3/uL 0.00-0.20 N [facility] ID Date Data Source [id number] 03/28/2020 02:36:00 [place] [address] HEALTH INFORMATION MANAGEMENT History and Physical Report : [id number] Signed Patient: Madhavi Montalvo Acct:[id number] Un it: [id number] : 1980 Loc: [facility] Age[facility]Sex: 39 / F ADM Date: 03/28/20 cc: History Physical Date of Service (Initial Exam): 03/28/20 Chief Complaint: Headache with shortness of breath History of Present Illness: This patient is a 39 yo F with a past medical history of Asthma, Chronicheadache, Lupus, IBS, Fibromyalgia, and anoxic brain injury that was sent to the ER this morning from her [place] ([place]) for complaints of a headache. She states she has had the headache for over a week. Came on suddenly. She rates the headache anywhere between a 10/10 to a 14/10. She has nausea with vomiting, but states this is no different from her usual symptoms from Bulimia. The headache is diffuse. Prevents her from sleeping at night. Worsened by loud s ounds and bright lights. She says sometimes it improves but there is nothing she clint to make it better. She denies visual changes or other focal deficits. She has a history of chronic headache and migraines but states this is more painful. Still tolerating PO. Denies fever or chills. Denies changes in medicines. In the ED she received tylenol, dyphenhydramine, ketorolac, prochlorperazine, and a 1L NS bolus. Head CT was negative for acute disease and Chest Xray was negative for acute pathology. Before discharge she complained for shortness of breath and cough at the [place]. Because of this they tested for COVID before the patient could return. When evaluated by hospitalist staff in the ED she was on RA. Not coughing, and not currently complaining of any SOB. She says she doesn't know when it started but it had been a while. She has long standing history of IBS and diarrhea that is unchanged. Denies fever. Myalgias are at her baseline and unchanged. No change in sense of smell or taste Primary Care Physician: DON Allergies azithromycin Allergy (Verified 03/28/20 18:22) bupropion Allergy (Verified 03/28/20 18:22) cephalexin Allergy (Verified 03/28/20 18:22) erythromycin base Allergy (Verified 03/28/20 18:22) eszopiclone [From Lunesta] Allergy (Verified 03/28/20 18:22) Fish Containing Products Allergy (Verified 03/28/20 18:12) Latex, Natural Rubber Allergy (Verified 03/28/20 18:10) levofloxacin Allergy (Verified 03/28/20 18:22) lisinopril Allergy (Verified 03/28/20 18:22) m etoclopramide Allergy (Verified 03/28/20 17:32) omeprazole Allergy (Verified 03/28/20 18:22) Sulfa (Sulfonamide Antibiotics) Allergy (Verified 03/28/20 18:22) NSAIDS (Non-Steroidal Anti-Inflamma Adverse Reaction (Verified 03/28/20 17:32) history gastric bypass oranges Adverse Reaction (Uncoded 03/28/20 18:12) Home Medications Medication Instructions Recorded acetaminophen [Tylenol] 650 mg PO Q6H PRN MDD 3 Grams 03/28/20 albuterol sulfate 2 puff INHALATION QID PRN 03/28/20 baclofen 5 mg PO BID PRN 03/28/20 bisacodyl 10 mg PA DAILY PRN 03/28/20 budesonide-formoterol [Symbicort] 2 puff INHALATION BID 03/28/20 buspirone 10 mg PO BID 03/28/20 calcium carbonate-vitamin D3 1 tab PO DAILY 03/28/20 [Calcium 500 With D] docusate sodium [Docusil] 100 mg PO DAILY 03/28/20 duloxetine [Cymbalta] 60 mg PO DAILY 03/28/20 escitalopram oxalate [Lexapro] 5 mg PO DAILY 03/28/20 folic acid 1 mg PO DAILY 03/28/20 gabapentin [Neurontin] 200 mg PO TID 03/28/20 hydroxychloroquine [Plaquenil] 200 mg PO DAILY 03/28/20 levetiracetam [Keppra] 500 mg PO BID 03/28/20 methotrexate sodium [Trexall] 7.5 mg PO Q7DAYS 03/28/20 metoprolol tartrate [Lopressor] 50 mg PO Q12H 03/28/20 hnottzssrffr-mwq-bcwx-FA-vit K 1 tab PO DAILY 03/28/20 [Multi- Day Plus Minerals] pantoprazole [Protonix] 40 mg PO DAILY 03/28/20 sennosides [Senna Lax] 17.2 mg PO BID 03/28/20 sorbitol 30 ml PO ONCE 03/28/20 sumatriptan succinate [Imitrex] See Rx Instructions .ROUTE 03/28/20 .COMPLEX PRN thiamine HCl (vitamin B1) 100 mg PO DAILY 03/28/20 tiotropium bromide [Spiriva with 1 cap INHALATION DAILY 03/28/20 HandiHaler] trazodone 50 mg PO DAILY 03/28/20 Social History History of Smoking/Tobacco Use: Former Smoker Alcohol use: Reports History of use Drug use: Reports History of use Occupation: disabled Lives with: Reports Half-Way PMH/PSH PMH/PSH Surgical History Gastric bypass status for obesity (Acute Surgical) Family History Other Unknown family medical history Review of Systems Constitutional: Reports Weakness (At baseline ); Denies Chills, Fever, Malaise and Sweats Eyes: Reports Other (photophobia ); Denies Conjunctivae Inflammation, Eyelid Inflammation, Pain, Redness and Vision Change ENT: Denies Ear Discharge, Ear Pain, Mouth Swelling, Nose Congestion, Sinus Pain, Throat Swelling and Trouble Swallowing Respiratory: Reports Cough, Dry and Shortness of Breath; Denies Hemoptysis, Pleuritic Pain, SOB withExcertion, Sputum and Wheezing Cardiovascular: Denies Chest Pain, Dyspnea on Exertion, Leg Swelling and Orthopnea Gastrointestinal: Reports Last Bowel movement (yesterday ), Diarrhea (at baseline ), Nausea and Vomiting (at baseline ); Denies Abdominal Pain, Hematemesis and Stool Changes Musculoskeletal: Denies Neck Pain, Arm Pain, Back Pain and Leg Pain Skin: Denies Bruising and Rash Neurological: Reports Headaches and Weakness (baseline unchanged ); Denies Change in Mental Status, Change in Speech, Confusion, Numbness and Seizures Hematology: Reports Hx of Anemia Endocrine: Denies Excessive Thirst and Polyuria Exam Vital Signs: Temp Pulse Resp BP Pulse Ox 99.7 F H 46 L 12 166/75 H 100 03/28/20 09:19 03/28/20 11:51 03/28/20 11:51 03/28/20 11:51 03/28/20 11:51 General: Present: Alert, Cooperative and Oriented x3 HEENT: Present: Atraumatic, EOMI, Normocephalic, MARIO and Sclera anicteric; Absent: Conjuctival Palor Neck: Present: Supple; Absent: Stiffness and Thyromegaly Lungs: Present: Clear to auscultation, Normal Air Movement and Chest rises and falls symmetrically; Absent: Crackles, Rhonchi and Wheezing Cardiovascular: Present: Normal Rate, Normal S1, Normal S2 and Regular rhythm; Absent: Bradycardia and Lower extremity edema Abdomen: Present: Normal Active Bowel Sound and Soft; Absent: Distended, Tenderness, Guarding and Hepatospenomegaly Breast: Present: Not Indicated Genital/Rectal: Present: Other (Chronic indwelling martínez ) Extremities: Absent: Clubbing, Cyanosis and Edema Skin: Absent: Lesions Neurological: Present: Awake/Oriented, Reflexes 2+/symmetric, Sensation intact, Strength at 5/5 X4 ext and Other (CN normal as tested. No focal deficits observed ); Absent: Drowsy and Lethargic Psych/Mental Status: Present: Alert, Oriented x 3 and Proper Affect Psych/Mental Status: Pr esent: Alert, Oriented x 3 and Proper Affect Current Lab Values Reviewed: Yes Result Diagrams: 03/28/20 09:47 03/28/20 09:47 Laboratory Data: Laboratory-Results Last 24 hours 03/28/20 03/28/20 03/28/20 09:47 09:47 09:47 WBC RBC Hgb Hct MCV MCH MCHC RDW Plt Count MPV Gran % (Auto) Lymph % (Auto) [place] % (Auto) Eos % (Auto) Baso % (Auto) Nucleat RBC Rel Count Gran # Lymph # (Auto) [place] # (Auto) Eos # (Auto) Baso # (Auto) Immature Gran # (Auto) Absolute Nucleated RBC Immature Gran % PT INR APTT Sodium 141 Potassium 4.7 Chloride 108 Carbon Dioxide 27 Anion Gap 11 BUN 6 L Creatinine 0.8 Estimated GFR (MDRD) 79.0 BUN/Creatinine Ratio 7 L Glucose 85 Lactic Acid 0.8 Calcium 9.2 Total Bilirubin 0.4 AST 35 ALT 30 Alkaline Phosphatase 67 Troponin I < 0.006 Total Protein 5.9 Albumin 4.1 Globulin 1.8 Albumin/Globulin Ratio 2.3 Urine Color AARON H Urine Appearance CLOUDY H Urine pH 6.0 Specific [place] (Man) 1.006 Urine Protein NEGATIVE Urine Glucose (UA) NEGATIVE Urine Ketones NEGATIVE Urine Occult Blood NEGATIVE Urine Nitrate NEGATIVE Urine Bilirubin NEGATIVE Urine Urobilinogen 0.2-1.0 Ur Leukocyte Esterase SMALL H Urine WBC (Auto) 25-49 H Urine RBC (Auto) 1-2 Urine Bacteria (Auto) MODERATE H Ur Epithelial Cells MODERATE Urine Mucus RARE 03/28/20 03/28/20 09:47 09:47 WBC 6.76 RBC 4.54 Hgb 13.4 Hct 40.0 MCV 88.1 MCH 29.5 MCHC 33.5 RDW 13.2 Plt Count 231 MPV 10.9 Gran % (Auto) 50.4 Lymph % (Auto) 38.6 [place] % (Auto) 7.8 Eos % (Auto) 1.9 Baso % (Auto) 1.0 Nucleat RBC Rel Count Not Reportable Gran # 3.40 Lymph # (Auto) 2.6 [place] # (Auto) 0.53 Eos # (Auto) 0.13 Baso # (Auto) 0.07 Immature Gran # (Auto) 0.0 Absolute Nucleated RBC Not Reportable Immature Gran % 0.3 PT 10.7 INR 1.0 APTT 32.3 Sodium Potassium Chloride Carbon Dioxide Anion Gap BUN Creatinine Estimated GFR (MDRD) BUN/Creatinine Ratio Glucose Lactic Acid Calcium Total Bilirubin AST ALT Alkaline Phosphatase Troponin I Total Protein Albumin Globulin Albumin/Globulin Ratio Urine Color Urine Appearance Urine pH Specific [place] (Man) Urine Protein Urine Glucose (UA) Urine Ketones Urine Occult Blood Urine Nitrate Urine Bilirubin Urine Urobilinogen Ur Leukocyte Esterase Urine WBC (Auto) Urine RBC (Auto) Urine Bacteria (Auto) Ur Epithelial Cells Urine Mucus Assessment/Plan Assessment: 1. Headache CT scan negative Chronic VELEZ that is worse than normal. No focal deficits. Will monitor response from toradol. We can put her on PRN toradol. Allergic to reglan which would have been helpful With all her behavioural health meds I think we should avoid dihydroergotamine Sumatriptan can be used as well. 2. Rule out COVID Low suspicion but will need to be negative before returning to [facility] 3. Lupus Continue home meds 4. Fibromyalgia 5. Indwelling martínez 6. Chronic VELEZ 7. Asthma Home meds 8. IBS 9. Major depression - continue home meds. Resuscitation Status (Nurse/Provider Doc-Not Order): Full Code Does the Patient have a MOLST form completed?: Yes Does the Patient have a MOLST form completed?: Yes MOLST form reviewed and updated?: Yes Health Care proxy Phone Number:: Sadie Tirado [phone] DVT Prophylaxis Pharmacologic: Lovenox Problems (1) Head ache: Code(s): R51 - Headache Qualifiers: Headache chronicity pattern: chronic headache Headache type: unspecified Intractability: not intractable Qualified Code(s): R51 - Headache Status: Acute (2) Suspected 2019 novel coronavirus infection: Code(s): Z20.828 - Contact with and (suspected) exposure to other viral communicable diseases Status: Acute (3) Gastric bypass status for obesity: Code(s): Z98.84 - Bariatric surgery status Status: Acute (4) Chronic headaches: Code(s): R51 - Headache Status: Acute (5) Chronic indwelling Martínez catheter: Code(s): Z96.0 - Presence of urogenital implants Status: Acute (6) Fibromyalgia: Code(s): M79.7 - Fibromyalgia Status: Acute (7) HTN (hypertension): Code(s): I10 - Essential (primary) hypertension Status: Chronic (8) Muscle weakness: Code(s): M62.81 - Muscle weakness (generalized) Status: Acute (9) Other abnormalities of gait and mobility: Code(s): R26.89 - Other abnormalities of gait and mobility Status: Acute (10) Obstructive and reflux uropathy: Code(s): N13.9 - Obstructive and reflux uropathy, unspecified Status: Acute (11) Systemic lupus: Code(s): M32.9 - Systemic lupus erythematosus, unspecified Status: Acute (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 Status: Acute (13) IBS (irritable bowel syndrome): Code(s): K58.9 - Irritable bowel syndrome without diarrhea Status: Acute (14) Major depressive disorder: Code(s): F32.9 - Major depressive disorder, single episode, unspecified Status: Acute (15) Anorexia: Code(s): R63.0 - Anorexia Status: Acute (16) Asthma: Code(s): J45.909 - Unspecified asthma, uncomplicated Status: Acute (17) Wernicke encephalopathy: Code(s): E51.2 - Wernicke's encephalopathy Status: Acute (18) Bradycardia: Code(s): R00.1 - Bradycardia, unspecified Status: Acute MIPS MIPS REVIEWED Did you review MIPS this visit?: Yes Tobacco Use:Preventative Care/Screening Performance Met:: 1036F: Pt screened for tobacco use, identified as non-user of tobacco Current Medications in Medical Record Performance Met:: G8427: Current Medications Documented Care Plan Performance Met:: 1123F:Adv Care plan discussed and surrogate decision maker documented. Heart Failure: REAGAN or ARB Therapy- LVSD LVEF less than 40% or moderate/severely depressed left ventricular systolic function?: No Heart Failure:Beta-Terrell Therapy- LVSD LVEF less than 40% or moderate/severely depressed left ventricular systolic function?: No Hospitalist Charges Worksheet Subject to change for billing criteria Did you complete your Hospitalist charges for this visit?: Yes Total time spent w/pt/family was more than 50% counseling:: Yes Inpatient 54945 Initial INpt-Mod (less than/equal 50 minutes): Yes Signed By:Tan Pulido MD <<Signature on File>> Signed Date/Time: 03/28/201852 Co-Signer: Isidro Sun MD Co-Signed Date/Time: 03/28/201852 Initializing User: Tan Pulido MD 143 [id number] Name Value Range Interpretation Code Description Data Elizabeth rce(s) Supporting Document(s) ID Date Data Source [id number] 03/28/2020 10:32:00 [place] [address] Patient Name: Madhavi Montalvo Exam Date: 03/28/20 : 1980 Ordering Doctor: Julito Cameron NP Attending Doctor: Mirtha Henry MD CC: EXAM: CT Head without contrast INDICATION: Severe headache TECHNIQUE: 5mm Multidetector axial slices were obtained from the skull base to the vertex without contrast. COMPARISON: None available. FINDINGS: No intracranial hemorrhage is identified. There is no mass, mass- effect or shift of the midline structures. The ventricles, cerebral sulci and cisterns are age appropriate. No fracture of the calvarium is identified. The visualized paranasal sinuses and the mastoid air cells are clear. IMPRESSION: No evidence for acute intracranial disease. Professional interpretation performed at [facility] . End of diagnostic report: [id number] Signed: Savanah Smith MD 03/28/20 1039 Interpreted by: Savanah Smithnscribed by: Savanah Smith Name Value Range Interpretation Code Description Data Elizabeth rce(s) Supporting Document(s) ID Date Data Source [id number] 03/28/2020 10:08:00 [place] [address] Patient Name: Madhavi Montalvo Exam Date: 03/28/20 : 1980 Ordering Doctor: Julito Cameron NP Attending Doctor: Mirtha Henry MD CC: AP CHEST INDICATION: Cough and shortness of breath. COMPARISON: None TECHNIQUE: A single AP film of the chest was obtained. FINDINGS: No significant soft tissue or bony abnormalities are noted. The cardiac and mediastinal contours appear normal. The lungs are clear without evidence of pneumonia or failure. IMPRESSION: Negative chest. Professional interpretation performed at [facility] Id[facility] . End of diagnostic report: [id number] Signed: Red Hamilton MD 03/28/20 1014 Interpreted by: Red HamiltonTranscribed by: Red Hamilton Name Value Range Interpretation Code Description Data Elizabeth rce(s) Supporting Document(s) ID Date Data Source [id number] 04/02/2020 11:12:00 AM EDT [facility] Run: 04/02/20 1112 INTERFACED REPORT Name: Madhavi Montalvo Age/Sex: 39/F Location: [facility] Acct: [id number] Unit: [id number] Status: ADM IN Room/Bed: 311-A Re03/28/20 Disch: Att Dr: Samina GARCIA Specimen #: [id number] Ordered : 03/28/20 Collected : 03/28/20 By: [email or web address] Received: 03/28/20 By: ALICJA Source: BLOOD Specimen Description: LAURA Comments: Recent Antibiotic Therapy N Procedure Result BLOOD CULTURE Final NO GROWTH AFTER 24 HOURS NO GROWTH AFTER 48 HOURS NO GROWTH AFTER 5 DAYS BLOOD CULTURE Preliminary (Corrected) NO GROWTH AFTER 24 HOURS AND NO GROWTH AFTER 48 HOURS BLOOD CULTURE Preliminary (Corrected) NO GROWTH AFTER 24 HOURS END OF REPORT Name Value Range Interpretation Code Description Data Elizabeth rce(s) Supporting Document(s) ID Date Data Source [id number] 03/28/2020 10:04:00 AM EDT [facility] Run: 04/02/20 1112 INTERFACED REPORT Name: Madhavi Montalvo Age/Sex: 39/F Location: [facility] Acct: [id number] Unit: [id number] Status: ADM IN Room/Bed: 311-A Re03/28/20 Disch: Att Dr: Samina GONZALEZP Specimen #: [id number] Ordered : 03/28/20 Collected : 03/28/20 By: [id number] Received: 03/28/20 By: ALICJA Source: BLOOD Specimen Description: LAURA Comments: Recent Antibiotic Therapy N Procedure Result BLOOD CULTURE Final NO GROWTH AFTER 24 HOURS NO GROWTH AFTER 48 HOURS NO GROWTH AFTER 5 DAYS BLOOD CULTURE Preliminary (Corrected) NO GROWTH AFTER 24 HOURS AND NO GROWTH AFTER 48 HOURS BLOOD CULTURE Preliminary (Corrected) NO GROWTH AFTER 24 HOURS END OF REPORT Name Value Range Interpretation Code Description Data Elizabeth rce(s) Supporting Document(s) WHITE BLOOD COUNT 6.76 10^3/uL 4.00-10.50 N [facility] RED BLOOD COUNT 4.54 10^6/uL 3.90-5.20 N [facility] HEMOGLOBIN 13.4 G/DL 11.5-15.6 N [facility] HEMATOCRIT 40.0 % 35.0-46.0 N [facility] MCV 88.1 FL 80.0-100.0 N [facility] MCH 29.5 PG 27.0-34.0 N [facility] MCHC 33.5 G/DL 32-36 N [facility] RDW 13.2 % 11.5-14.5 N [facility] PLATELET COUNT 231 10^3/uL 130-400 N [facility] MPV 10.9 FL 8.7-13.2 N [facility] GRAN % (AUTO) 50.4 % 42.0-75.0 N [facility] LYMPH % (AUTO) 38.6 % 20.0-51.0 N [facility] MONO % (AUTO) 7.8 % 2.0-15.0 N [facility] EOS % (AUTO) 1.9 % 0.0-11.0 N [facility] BASO % (AUTO) 1.0 % 0.0-2.0 N [facility] IG % (AUTO) 0.3 % 1.00-5.00 [facility] IG # (AUTO) 0.0 10^3/uL <0.5 [facility] GRAN # (AUTO) 3.40 10^3/uL 1.50-6.50 N [facility] LYMPH # (AUTO) 2.6 k/uL 1.0-5.0 N [facility] MONO # (AUTO) 0.53 k/uL 0.20-1.50 N [facility] EOS # (AUTO) 0.13 10^3/uL 0.00-1.10 N [facility] BASO # (AUTO) 0.07 10^3/uL 0.00-0.20 N [facility] ID Date Data Source [id number] 03/28/2020 10:13:00 AM EDT [facility] Run: 04/02/20 1112 INTERFACED REPORT Name: Madhavi Montalvo Age/Sex: 39/F Location: [facility] Acct: [id number] Unit: [id number] Status: ADM IN Room/Bed: 311-A Re03/28/20 Disch: Att Dr: Samina Dixon TRAINING AND DEVELOPMENT MANAGER Specimen #: [id number] Ordered : 03/28/20 Collected : 03/28/20 By: [id number] Received: 03/28/20 By: ALICJA Source: BLOOD Specimen Description: LAC Comments: Recent Antibiotic Therapy N Procedure Result BLOOD CULTURE Final NO GROWTH AFTER 24 HOURS NO GROWTH AFTER 48 HOURS NO GROWTH AFTER 5 DAYS BLOOD CULTURE Preliminary (Corrected) NO GROWTH AFTER 24 HOURS AND NO GROWTH AFTER 48 HOURS BLOOD CULTURE Preliminary (Corrected) NO GROWTH AFTER 24 HOURS END OF REPORT Name Value Range Interpretation Code Description Data Elizabeth rce(s) Supporting Document(s) PROTHROMBIN TIME 10.7 SEC 8.9-13.3 N [facility] INR 1.0 0.0-3.6 N [facility] Therapeutic Values of INR are generally between 2.0-3.0 except for Prosthetic Valves (High Risk 2.5-3.5) The use of INR is restricted to patient on stable oral anticoagulant therapy. ID Date Data Source [id number] 03/28/2020 10:23:00 AM EDT [facility] Run: 04/02/20 1112 INTERFACED REPORT Name: Madhavi Montalvo Age/Sex: 39/F Location: [facility] Acct: [id number] Unit: [id number] Status: ADM IN Room/Bed: 311-A Re03/28/20 Disch: Glenn Dr: Samina GARCIA Specimen #: [id number] Ordered : 03/28/20 Collected : 03/28/20 By: [id number] Received: 03/28/20 By: ALICJA Source: BLOOD Specimen Description: LAC Comments: Recent Antibiotic Therapy N Procedure Result BLOOD CULTURE Final NO GROWTH AFTER 24 HOURS NO GROWTH AFTER 48 HOURS NO GROWTH AFTER 5 DAYS BLOOD CULTURE Preliminary (Corrected) NO GROWTH AFTER 24 HOURS AND NO GROWTH AFTER 48 HOURS BLOOD CULTURE Preliminary (Corrected) NO GROWTH AFTER 24 HOURS END OF REPORT Name Value Range Interpretation Code Description Data Elizabeth rce(s) Supporting Document(s) SODIUM 141 MEQ/L 135-145 N [facility] POTASSIUM 4.7 MEQ/L 3.5-5.3 N [facility] CHLORIDE 108 MEQ/L 94-110 N [facility] CARBON DIOXIDE 27 MEQ/L 22-33 N [facility] ANION GAP 11 5-16 N [facility] BLOOD UREA NITRO 6 MG/DL 7-25 [facility] CREATININE 0.8 MG/DL 0.6-1.4 N [facility] GFR 79.0 ML/MIN [facility] Stage G2 - Mildly decreased kidney func tion The GFR is an estimate of the Glomerular Filtration Rate. It is an aid to assess a patient's renal function. It is not a conclusive diagnosis of kidney disease. GFR normal is >=90 The MDRD GFR calculation is considered valid between the ages of 18 and 75 years only. BUN/CREAT RATIO 7 8-36 L [facility] GLUCOSE 85 MG/DL 70-100 N [facility] CA 9.2 MG/DL 8.7-10.5 N [facility] BILIRUBIN,TOTAL 0.4 MG/DL 0.1-1.3 N [facility] AST 35 U/L 5-40 N [facility] ALT 30 U/L 5-48 N [facility] ALKALINE PHOSPHATASE 67 U/L 40-140 N [facility] TOTAL PROTEIN 5.9 G/DL 5.9-8.3 N [facility] ALBUMIN 4.1 G/DL 3.0-5.1 N [facility] GLOBULIN 1.8 G/DL 1.5-3.5 N [facility] ALB/GLOB RATIO 2.3 G/DL 1.0-3.0 N [facility] ID Date Data Source [id number] 03/28/2020 10:13:00 AM EDT [facility] Run: 04/02/20 1112 INTERFACED REPORT Name: Madhavi Montalvo Age/Sex: 39/F Location: [facility] Acct: [id number] Unit: [id number] Status: ADM IN Room/Bed: 311-A Re03/28/20 Disch: Att Dr: Samina Dixon TRAINING AND DEVELOPMENT MANAGER Specimen #: [id number] Ordered : 03/28/20 Collected : 03/28/20 By: [id number] Received: 03/28/20 By: ALICJA Source: BLOOD Specimen Description: LAC Comments: Recent Antibiotic Therapy N Procedure Result BLOOD CULTURE Final NO GROWTH AFTER 24 HOURS NO GROWTH AFTER 48 HOURS NO GROWTH AFTER 5 DAYS BLOOD CULTURE Preliminary (Corrected) NO GROWTH AFTER 24 HOURS AND NO GROWTH AFTER 48 HOURS BLOOD CULTURE Preliminary (Corrected) NO GROWTH AFTER 24 HOURS END OF REPORT Name Value Range Interpretation Code Description Data Elizabeth rce(s) Supporting Document(s) PTT 32.3 SEC 22.2-34.9 N [facility] ID Date Data Source [id number] 03/28/2020 10:23:00 AM EDT [facility] Run: 04/02/20 1112 INTERFACED REPORT Name: Madhavi Montalvo Age/Sex: 39/F Location: [facility] Acct: [id number] Unit: [id number] Status: ADM IN Room/Bed: 311-A Re03/28/20 Disch: Att Dr: Samina GARCIA Specimen #: [id number] Ordered : 03/28/20 Collected : 03/28/20 By: [id number] Received: 03/28/20 By: ALICJA Source: BLOOD Specimen Description: LAURA Comments: Recent Antibiotic Therapy N Procedure Result BLOOD CULTURE Final NO GROWTH AFTER 24 HOURS NO GROWTH AFTER 48 HOURS NO GROWTH AFTER 5 DAYS BLOOD CULTURE Preliminary (Corrected) NO GROWTH AFTER 24 HOURS AND NO GROWTH AFTER 48 HOURS BLOOD CULTURE Preliminary (Corrected) NO GROWTH AFTER 24 HOURS END OF REPORT Name Value Range Interpretation Code Description Data Elizabeth rce(s) Supporting Document(s) TROPONIN I < 0.006 NG/ML 0.000-0.040 N [facility] 0.000 - 0.040 Normal. 0.041 - 0.779 S uspect myocardial injury. Repeat testing recommended. >= 0.780 Meets WHO criteria cutoff for AMI. ID Date Data Source [id number] 03/28/2020 09:52:00 [place] [address] HEALTH INFORMATION MANAGEMENT ED/ Physician Report : [id number] Signed Patient: Madhavi Montalvo Acct:[id number] Unit: [id number] : 1980 Arrival Date: 03/28/20 Age/Sex: 39 / F Arrival Time: 918 Copies to: PCP,No General Adult HPI/ROS General Chief Complaint: Complex/Multi-System Present Stated Complaint: Headache Stated Complaint: Headache Source: Patient, RN notes reviewed and I have reviewed available Ancillary/nursing staff documentation ( fdc) Mode of arrival: EMS Limitations: Reports No limitations History of Present Illness Initial Comments: 39-year-old female presents today with complaints a with and shortness of breath. Patient reports that the headache started about 1 week previously. Patient reports the headache has been increasing in severity since onset. Patient reports a past history of migraines with a similar presentation. Patient rates her current pain is a 14/10 throbbing all over. Patient reports movement and light increases the pain. Patient reports that she has been skin sparing seen associated photophobia and nausea. Patient denies any interventions have improved the pain. Patient denies any new numbness or weakness to any of her extremities. the patient reports that shehas been experiencing chills denies any documented fevers. Patient reports that the nonproductive cough has been present for a couple weeks. She reports however that the increased shortness of breath has been also over the past week. Patient denies any known exposures however she is a fdc resident. Patient denies any other associated symptoms at this time. Related Data Home Medications Medication Instructions Recorded acetaminophen [Tylenol] 650 mg PO Q6H PRN MDD 3 Grams 03/28/20 albuterol sulfate 2 puff INHALATION QID PRN 03/28/20 baclofen 5 mg PO BID PRN 03/28/20 bisacodyl 10 mg PA DAILY PRN 03/28/20 budesonide-formoterol [Symbicort] 2 puff INHALATION BID 03/28/20 buspirone 10 mg PO BID 03/28/20 calcium carbonate-vitamin D3 1 tab PO DAILY 03/28/20 [Calcium 500 With D] docusate sodium [Docusil] 100 mg PO DAILY 03/28/20 duloxetine [Cymbalta] 60 mg PO DAILY 03/28/20 escitalopram oxalate [Lexapro] 5 mg PO DAILY 03/28/20 folic acid 1 mg PO DAILY 03/28/20 gabapentin [Neurontin] 200 mg PO TID 03/28/20 hydroxychloroquine [Plaquenil] 200 mg PO DAILY 03/28/20 levetiracetam [Keppra] 500 mg PO BID 03/28/20 methotrexate sodium [Trexall] 7.5 mg PO Q7DAYS 03/28/20 metoprolol tartrate [Lopressor] 50 mg PO Q12H 03/28/20 rjfwomhhjdow-equ-wxbc-FA-vit K 1 tab PO DAILY 03/28/20 [Multi-Day Plus Minerals] pantoprazole [Protonix] 40 mg PO DAILY 03/28/20 sennosides [Senna Lax] 17.2 mg PO BID 03/28/20 sorbitol 30 ml PO ONCE 03/28/20 sumatriptan succinate [Imitrex] See Rx Instructions .ROUTE 03/28/20 .COMPLEX PRN thiamine HCl (vitamin B1) 100 mg PO DAILY 03/28/20 tiotropium bromide [Spiriva with 1 cap INHALATION DAILY 03/28/20 HandiHaler] trazodone 50 mg PO DAILY 03/28/20 Allergies metoclopramide Allergy (Verified 03/28/20 09:48) NSAIDS (Non-Steroidal Anti-Inflamma Adverse Reaction (Verified 03/28/20 09:49) history gastric bypass Review of Systems General: Reports Chills and Significant weight change; Denies Fever Eye: Reports Other ( photophobia) ENT: Denies Ear ache, Nasal congestion, Sinus congestion and Sore throat Cardiac: Reports Chest pain; Denies Palpitations Respiratory: Reports Cough, Shortness of Breath and Dyspnea on exertion; Denies Orthopnea GI: Reports Nausea and Diarrhea; Denies Pain, Vomiting, Hematemesis, Hematochezia and Melena : Reports Other ( chronic Martínez catheter) Neuro: Reports Headache, Tingling ( chronic) and Weakness ( baseline); Denies Dizziness and Numbness Musculoskeletal: Reports Neck Pain ( chronic) and Back Pain ( chronic) Skin: Denies Bruising and Rash Social History Social History Other: currently living at a fdc following 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 Waiting for placement current History of Smoking/Tobacco Use: Former Smoker Alcohol use: Reports History of use Drug use: Reports History of use Occupation: disabled Lives with: Reports Half-Way PMH/PSH PMH/PSH Surgical History Gastric bypass status for obesity (Acute Surgical) Family History Other Unknown family medical history Physical Exam Physical Exam General appearance: Alert and In distress moderate due to: Pain Head Head Exam: Atraumatic, Normcephalic and Abnormal Findings: negative Hematoma, Deformity, Tenderness,Laceration, Abrasion, Contusion, [place] eyes, Calvert's sign, Tenderness of temporal artery, CSF rhinorrhea and CSF otorrhea Eye Eye Exam: EOMI, Conjunctiva normal, Sclera normal and GWYN Neck Neck Exam: Full ROM, Supple, Trachea Midline and Abnormal Paraspinal tenderness; negative Lymphadenopathy, Meningismus, Stepoff, Tenderness and Midline tenderness Cardiac Cardiac: Present: Regular rate and rhythm, Dorsalis pulses normal equal and Radial pulses normal equal Cardiac Abnormal: Present: Bradycardia; Absent: Peripheral edema Murmur: Present: None Heart Sounds: Present: S1 and S2 Lung/Chest Lung/Chest Exam: Normal Exchange, No chest wall tenderness and Abnormal Findings: negative Reproducible Chest Wall Pain; negative Clear Lung Sounds: Wheezes: Bilateral Abdomen Abdominal Exam: Bowel sounds normal, Soft, Nondistended, Nontender, No guarding and No hepatosplenomegaly Back Back Exam: Full ROM, No Deformity and Skin Normal Location of Back Tenderness: CVA: Neg Upper Extremity Upper Extremity Exam: Full range of motion equal strength and sensation bilaterally. Lower Extremity Lower Extremity: full range of motion equal strength and sensation bilaterally. Patient's right foot with foot drop noted. Neuro Neuro Normal: Alert, Oriented x 3, CN 2-12 normal, Fluent speech, Sensory normal and Strength 5/5 all extremities; negative Gait normal ( unable to assess) Psych Psych Normal: Normal Affect Skin Skin exam: Dry, Intact and Warm; negative [place] ( pale) Course Reevaluation(s) Reevaluation #1: patient does reports some improvement after medications. patient remains without any focal neurological deficits. Patient is alert and oriented x3. Patient is in agreement with discharge back to the fdc. Did discuss extensively with patient the need to find differentplacement as this does not appear appropriate for her. Patient is in agreement with this. Patient is in no acute distress in agreement with discharge. Time: 11:29 Reevaluation #2: Adilene bedside RN Attempted to give report to the fdc. Patient unable toreturn until her COVID testing has resulted. Time: 11:52 Consultations Consultation #1: Spoke with admitting hospitalist he will be down to see the patient for admission. Time: 11:59 Medical Decision Making/CCT EKG Interpretation Complete If EKG was done has it been read?: Yes Lab Data Result diagrams: 03/28/20 09:47 03/28/20 09:47 Labs reviewed: No Hyperglycemia Identified Hyperglycemia identified in patient?: No Medication/Allergies Review Medication/Allergies Review Home Medication and Allergy review: I reviewed patients allergies, home medications, and new prescriptions Blood Pressure Blood pressure: Pt's blood pressure is elevated but pt has history of hypertension. Radiology Data Radiology Data Radiology results: report reviewed and image reviewed Radiology impressions: AP CHESTINDICATION: Cough and shortness of breath.COMPARISON: None TECHNIQUE: A single AP film of the chest was obtained. FINDINGS: No significant soft tissue or bony abnormalities are noted. The cardiac and mediastinal contours appear normal. The lungs are clear without evidence of pneumonia or failure. IMPRESSION: Negative chest. Medical Decision Making Medical Decision Making: Patient presents with a week-long headache. Patient reports past historyof migraines. Patient reports that her upper Imitrex at the fdc which was not working. Patient is also complaining of cough shortness of breath and chills. Patient is currently a [facility] resident. COVID precautions were initiated a order was placed as patient presented with symptoms. Patient did have a head CT which showed no acute abnormalities. Patient was medicated and did have relief of symptoms. Patient is in agreement with discharge. Discharge Plan Disposition Clinical Impression: Suspected 2019 novel coronavirus infection Head ache Qualifiers: Headache type: unspecified Headache chronicity pattern: chronic headache Intractability: not intractable Qualified Code(s): R51 - Headache Provider stated Dispo: Admitted Condition: Stable Patient agreeable to discharge: Patient/Guardian understands and is agreeable to discharge plan Date/Time <<Signature on File>> Initializing User: Julito Cameron NP 03/28/20 0952 Signed by: Julito Cameron NP 03/28/20 1535 Mirtha Henry MD 03/28/20 1729 Name Value Range Interpretation Code Description Data Elizabeth rce(s) Supporting Document(s) ID Date Data Source [id number] 03/28/2020 09:47:00 AM EDT [facility] Name Value Range Interpretation Code Description Data Elizabeth rce(s) Supporting Document(s) 2019-nCoV N XXX Ql MARIAN N2 [facility] [place] This lab was ordered by [facility] and reported by MARICEL. ID Date Data Source [id number] 03/30/2020 01:20:00 PM EDT [facility] Name Value Range Interpretation Code Description Data Elizabeth rce(s) Supporting Document(s) COVID 19 See Notes [facility] Virology Laboratory Phone: Testing performed at [facility]# [id number] Specimen Id: [id number] Specimen Type: Nasopharyngeal Swab 2019 nCoV Real-Time RT-PCR: Not Detected 03/30/2020 NOTE: The [facility] is approved by the Centers for Disease Control and Prevention (CDC) to test for 2019 novel coronavirus (2019_nCoV). The real-time RT-PCR assay for 2019_nCoV was developed by the [facility] for the purpose of diagnostic testing to allow for rapid response during a declared public health emergency and has Emergency Use Authorization (EUA) from the FDA. Negative 2019_nCoV RT-PCR results do not preclude 2019_nCoV infection and should not be used as the sole basis for patient management decisions. Additional information is available on the following FDA websites for health care providers and patients. https://www.fda.gov/media/531549/download https://www.fda.gov/media/506583/download This reportable disease test result has been posted on [employer], the [facility] Electronic Clinical Laboratory Reporting System, in accordance with [facility] Public Health Law, and is available to local and/or state health officials [place] [address] CLIA# [id number] [address] [address] CLIA# [id number] [place] [address] CLIA# [id number] ID Date Data Source [id number] 03/28/2020 11:12:00 AM EDT [facility] Run: 03/29/20 0822 INTERFACED REPORT Name: Madhavi Montalvo Age/Sex: 39/F Location: [facility] Acct: [id number] Unit: [id number] Status: ADM IN Room/Bed: 412-A Re03/28/20 Disch: Att Dr: Sandee Grullon MD Specimen #: [id number] Ordered : 03/28/20 Collected : 03/28/20 By: LAURO Received: 03/28/20 By: BERONICA Source: URINE CC Specimen Description: Procedure Result - COLONY COUNT Final COLONY COUNT GREATER THAN 100,000 CFU/ML URINE CULTURE Final PRESENCE OF 3 OR MORE ORGANISMS-SPECIMEN MAY BE CONTAMINATED SUGGEST REPEAT END OF REPORT Name Value Range Interpretation Code Description Data Elizabeth rce(s) Supporting Document(s) COLOR,UR AARON YELLOW A [facility] APPEARANCE,UR CLOUDY CLEAR A [facility] PH,UR 6.0 5.0-8.0 [facility] SPECIFIC GRAVITY,UR 1.006 1.002-1.035 N [facility] PROTEIN,UR NEGATIVE MG/DL NEGATIVE [facility] GLUCOSE, UR NEGATIVE MG/DL NEGATIVE [facility] KETONES,UR NEGATIVE MG/DL NEGATIVE [facility] OCCULT BLOOD,UR NEGATIVE NEGATIVE [facility] NITRATE,UR NEGATIVE NEGATIVE [facility] LEUKOCYTE ESTERASE ,UR SMALL NEGATIVE A [facility] BILIRUBIN,UR NEGATIVE NEGATIVE [facility] UROBILINOGEN,UR 0.2-1.0 EU MG/DL NEG-0-1.0 [facility] RBC,UR 1-2 PER HPF 0-2 [facility] WBC,UR 25-49 PER HPF <5 A [facility] URINE EPITH MODERATE PER/LPF FEW-MOD [facility] BACTERIA,UR MODERATE PER HPF NONE A [facility] MUCUS,UR RARE PER HPF NONE SEEN [facility] ID Date Data Source [id number] 03/29/2020 08:22:00 AM EDT [facility] Run: 03/29/20 0822 INTERFACED REPORT Name: Madhavi Montalvo Age/Sex: 39/F Location: [facility] Acct: [id number] Unit: [id number] Status: ADM IN Room/Bed: 412-A Re03/28/20 Disch: Glenn Dr: Sandee Grullon MD Specimen #: [id number] Ordered : 03/28/20 Collected : 03/28/20 By: LAUOR Received: 03/28/20 By: BERONICA Source: URINE CC Specimen Description: Procedure Result - COLONY COUNT Final COLONY COUNT GREATER THAN 100,000 CFU/ML URINE CULTURE Final PRESENCE OF 3 OR MORE ORGANISMS-SPECIMEN MAY BE CONTAMINATED SUGGEST REPEAT END OF REPORT Name Value Range Interpretation Code Description Data Elizabeth rce(s) Supporting Document(s) ID Date Data Source [id number] 03/28/2020 10:08:00 AM EDT [facility] Name Value Range Interpretation Code Description Data Elizabeth rce(s) Supporting Document(s) Lactic Acid,P 0.8 mmol/L 0.5-2.0 N [facility] ID Date Data Source [id number] 03/28/2020 09:37:27 AM T [facility] Name Value Range Interpretation Code Description Data Elizabeth rce(s) Supporting Document(s) EKG/ECG IN ED [facility] [file] [id number]IJYTCUTLPLBMMHNLLKRUlE/D/XQpA7VehUj3ZqCowXoPu ytIsiI5+8yRtHHsBPHlrndiuurxDQv+Eh/4SDTPM/4 WL/cc9iZ1i1t1j7Nle64+04/s7kU3mlk06wuaVDx31CHJKOJQVTPx/8Axd//AKkb/tHt49sknl4rKiKn FbBgiwtJJhwLR26BhnisSqUFJ4uVmGRC1PeLRuG4893StGywO49V+Lb+2bHC4FrMqGM3lvt7fYrbpQZz uKeZUXMSXN6rqLQP3r/8IjY/2p9u+8ozWg1hdsyAt+ Y3k+fs18fd0y7qmPxv6WiEXMTJTHBFUWPNLgpiZhZwqY4t7d1dqzbeMwKaGkYxqVWaA5B9J1+Hep+Jose Alberto [file] n9QUsU78z22lv14oVMXpJW+V+2oNH04pe044CSV6n6 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 Apprentice/Pfau8Mxk6PF7IDCVkb4LuUHUtH/PPStwxM1lSkiu11crQ7AO+e02csqBEh58+0VG4pW3CBRj9plRE [file] ooqDEKKKKACiiigAooooAKKKKACiiigAooooAKKKKACiiigAooooAKKKKACiiigAooooAKKKKACiiigA ooooAKKKKACiiigDm/E/37b/AIF/XrJzntWldirt8oVtytcBbhst09/6nRfrN/2JBJVq5Nr/8NnjtLRR NT2nJoWEKt9H0Gt7i8Se+vYf+wJfe7AA8mtsrm/gQU UUVRuFeTfG/wD1Oi/Wb/5NppbmhQ8/9rNXsJCCmXYDtwxyO0E0Qg9KRn5X/r2H/rWx3iofaC7Ra9a0WH GNDOgwLa0wz/1Oi/Wb/wBkooqZbGNf+Wjg0jpzjW8bLIbqbV0U2Vf2p2Rq+vYf+xJxf1CA2bmhci/gQU UUVRuFeTfG/wD1Oi/Wb/9WupjwxN3/4bPHaWiiszyw pKKKAPUPgp/yHdR/69h/2SO5zqgbMYw0yL+ONAFDRH9O3R4g/iBB0R5Iq/ZKKKmWxjX/AIbPHaWiiszz ApKKKBHqHwU/5Duo/bJKqR6P5MK2EKCRkcn82U1BEpsgvusbQ6y+N/8AqdF+s3/slFFTLYxr/wANnjtF LXRbbbYWSJZ7z8NB+Q7qP/XsP/ZgRpcXWdJ2AMa/wI QSDWr5Mgnd1/yEn/65H+YooqXsY1/4cjrKKKKzPKCiiigAooooAKKKKACiiigAooooAKKKKACiiigAoo ooAKKKKACiiigAooooAKKKKACiiigAooooAKKKKACiiigD/6dRXhXvTBD7wlOscZ3NSE3xr5SsIFzwAr OpCV9xtm8LHIibPGwtLW4CEviCaV9hGtL7Q1HhqeQ6 UDX8L9YpuXFlgx8UfRX9BUZpU44tGK0MXA7osZmzKVvyJd9DNkL8wqZjwF3ZyDpxgAQZsuCBsTxV/3Bj M3XVWdsU3FBYNeuuvACWkbWFpJLqo3+VZoX3H9B03166DjwgMExbBiPITndBtvoFuKfjKONitmqdnNhE uuEsvBWXAhfPyZlkivDXGWe6irwjgJ2CUAw/gGOyzP e+L9GDvXSZufRQaLvWcIxsDTFMQC3/paBQJssszNYkwUGv3LLCultkLO9Epk4hGT0HaGbxb+IZ9ObheY uziEmgFF8ifUG7E7a5L/Qy5PBH778BPJ4XMSatxgZxsWOcCC1CKhYfOA1gvz0KJXrbHJAmPvwWDjp4R5 Bkq5A9B9HjGP9/PJ9TtGBoAUKOpwNlAC0CVuS8WP2V WGLNQNUZCoSoDFOCUMLrBXnIzkLqUIIUKCCxQVOPOPL3HO6GrtYfdM3zKG5/WX1YeJGtCWOZscMfTA5R SmX5BR8JRQSOQYTAKkQbPMFZCUMeVLmZujHeAIQABABuYAJXLDK3KI4OilZkxGyxxvSdbCCuXAlhUKHo RUBfBwDtQlv8XqlaH95oLNPwkVSbJAzzJIZxEIKaTt ZnMqm7InowKl6CNfOjVE4rbp6VJScwIIVsWafAPtiiJuDxLOWPAfDvMF9bmo1GHqGaPXAgXsvGLpnqYv UeEOXHSvQzBY3bgh9SWpBmLNHoOidUVpt9J6M8tCAeDFPcVl6XgIjvNFEhN1wsVGXbUFOtUYKsUu4kgM McXFMrPw4NxzYzXCV4VNGmQi5WPDc7FAH1MQO8MSG2 LsB0Fkk7KPnUR7VKINU4ZYvkKCJ6IFA+PGMGDESvIGVoCaDvZTB5YGV3F8BKOaETJVP1NTO7UjLkKa7n Z0ZqgMXwzc9KtEO3NUDvI41pBH0BAE4edBpcELo+Vz2Lo9ItCUGlCKu7sKMtKJJ//zwTmTJBZ0nruTMo iOHjYUGIlK4FFP7UKeiPCGeQJ5dwyTXqgNoKGNisKF aADwXGQECRvgCRwLQNJKALMfAjAJ2YszZGDTMurxWGMUo3QDBIEqPoXWF8seEetS8XZF2qu3LcTWn0vs JmBXjqPNAoYSguZLQrIGLtSYKsAGF7UYJ9WDFDEbEyKCOtZVMxFSiaOARtGHHxha5AIVAkDXYmDTNwOU IzZSTkVLIeBNhkOBTlIRGkTDuqNARkPPVkZN0AEcCu GVJaRHM0OAHtKBUcXUHttr0XREQyKDHkQTyxXSOwRDYeLFVsLQqlJDTlAGZfQFOqRDDrALXqMF1CBuBa NSBqZJJqXEHbKEUoDPCxez7WFZNlIQEgYQOsHiRcQDKtAVCzDWjrXEAnPYGlVOP6OLDhTGNyLZ9SHqKd ENZgEWRsYVPgBbP7XpGcRz0LDHXxDMDrCJDxPkB9QO SqYODjYMbhMGMzIHLrEMNfNFU6OSW9ZMSTPyEoQRSoZPYkVRFfGpL2ShTuWg0FAQMiHKOuXPQhGMK0EH XwFXIdIFiuQJPxLNPqLFU7WED8HZC9HOMIFsLpEKOsAHPkLJkrAaE9VrTmPr3RVBAtUHOgBRIlQUP7VW ZwSTYmHSdeAUSgNiOfNUP7VVVtABQmNK8EUwRaIGSr SUClJxDbSJTqKRTbtc1RBRRjUUBuZqA8MSQcGNItDDXrONvqEVQfDzYcZcU6SHZlAPAdKX8OEtTaOQau TGUNQgw5N6YyjiCuGkWiDr7stPLvTMCzVw1XocGyWNJ6XRWcCa0GYBw0POC8OWR0XFD8TlE7Win3LIiD P1RUKCT0SHezYMU3IRK+WVVKHUHhYYNjCgOjUEX1VB U1A5RFWdVEAWC1DTB2JdJhSu1uEh3BHeR7NOL2tXOkMm8EUuHkRvUjWGboOLEFMj7SpUUoTj8EVKEdCH u8etHznMOjRBu3YS2SqQhlSSUwL4Jxw0AnXHKgLSLmEC0yiwHsSDIpBBCtYCBgHWBCVTVlTTHzVyDdEE V2ARU3U0CIDpADTUM0YBS1MpEnPwm5LZH6MGQWSAd4 JqIiLyZpYEBELbK8DZvOSSPOTCW2FR4rYF8AtkQ4JZFcUtIeHa6XSaKrS3GaAKQhQuWpNm5+DQpzdGFy zOheGKMHUaKfEhYlYJ5HGGBCU4T= ID Date Data Source [id number] 03/26/2020 07:52:00 AM EDT [facility] Name Value Range Interpretation Code Description Data Elizabeth rce(s) Supporting Document(s) SODIUM 143 MEQ/L 135-145 N [facility] POTASSIUM 4.4 MEQ/L 3.5-5.3 N [facility] CHLORIDE 108 MEQ/L 94-110 N [facility] CARBON DIOXIDE 28 MEQ/L 22-33 N [facility] ANION GAP 11 5-16 N [facility] BLOOD UREA NITRO 6 MG/DL 7-25 L [facility] CREATININE 0.6 MG/DL 0.6-1.4 N [facility] GFR > 90.0 ML/MIN [facility] Stage G1 - Normal or high kidney functi on The GFR is an estimate of the Glomerular Filtration Rate. It is an aid to assess a patient's renal function. It is not a conclusive diagnosis of kidney disease. GFR normal is >=90 The MDRD GFR calculation is considered valid between the ages of 18 and 75 years only. BUN/CREAT RATIO 10 8-36 N [facility] GLUCOSE 72 MG/DL 70-100 N [facility] CA 9.1 MG/DL 8.7-10.5 N [facility] ID Date Data Source [id number] 02/29/2020 11:07:26 AM EDT [employer] HISTORY: 2 view chest for shortness of b reathComparison studies: NoneFINDINGS: There is normal size and configuration of thecardiomediastinal silhouette and pulmonary vascular shadows. The lungsare clear.IMPRESSION: No intrathoracic abnormality.THIS IS AN ELECTRONICALLY SIGNED REPORT IN [employer] BY:Mathieu Patel M.D. 02/29/2020 11:04The results were provided by [facility], to the facility. Name Value Range Interpretation Code Description Data Elizabeth rce(s) Supporting Document(s) ID Date Data Source [id number] 02/25/2020 06:03:11 PM EDT [employer] [employer] [facility], [facility] Exam: Abdominal radiographsHISTORY: pain , nauseaCOMPARISON: 01/16/2020TECHNIQUE: Supine and upright images of the abdomen and pelvis.FINDINGS:The bowel gas pattern is non-obstructive.There is no evidence of intraabdominal free air.There is a small amount of fecal material.The lung bases are unremarkable.The osseous structures and soft tissues are unremarkable.IMPRESSION: Non-obstructive bowel gas pattern. Small amount of fecalmaterial.THIS IS AN ELECTRONICALLY SIGNED REPORT IN [employer] BY:Karan Dinh M.D. 02/25/2020 18:00The results were provided by [facility], to the facility. Name Value Range Interpretation Code Description Data Elizabeth rce(s) Supporting Document(s) ID Date Data Source [id number] 01/16/2020 05:00:14 PM EST [employer] HISTORY: Abdominal painTechnique: 2 imag es of the abdomen are submitted.COMPARISON: NoneFINDINGS: Moderate gas throughout the large and small bowel in anonobstructive pattern. Gas and stool in the descending colon. Minimalstool in the rectum.No free intraperitoneal air.There are no diagnostic calcifications, organomegaly, nor masses seen.The bony structure is intact.IMPRESSION: Radiographic features suggest generalized ileus.THIS IS AN ELECTRONICALLY SIGNED REPORT IN [employer] BY:Augie Ny M.D. 01/16/2020 16:57The results were provided by [facility], to the facility. Name Value Range Interpretation Code Description Data Elizabeth rce(s) Supporting Document(s) ID Date Data Source [id number] 01/12/2020 07:41:00 AM [facility] Name Value Range Interpretation Code Description Data Elizabeth rce(s) Supporting Document(s) VITAMIN B12 304 PG/ML 211-2000 N [facility] ID Date Data Source [id number] 01/12/2020 07:41:00 AM [facility] Name Value Range Interpretation Code Description Data Elizabeth rce(s) Supporting Document(s) FOLATE > 24.00 NG/ML 3.40-24.00 H [facility] ID Date Data Source [id number] 12/07/2019 07:33:00 AM [facility] Name Value Range Interpretation Code Description Data Elizabeth rce(s) Supporting Document(s) WHITE BLOOD COUNT 5.31 10^3/uL 4.00-10.50 N [facility] ealth RED BLOOD COUNT 4.05 10^6/uL 3.90-5.20 N [facility] th HEMOGLOBIN 11.9 G/DL 11.5-15.6 N [facility] HEMATOCRIT 35.6 % 35.0-46.0 N [facility] MCV 87.9 FL 80.0-100.0 N [facility] MCH 29.4 PG 27.0-34.0 N [facility] MCHC 33.4 G/DL 32-36 N [facility] RDW 14.2 % 11.5-14.5 N [facility] PLATELET COUNT 207 10^3/uL 130-400 N [facility] MPV 11.5 FL 8.7-13.2 N [facility] ID Date Data Source [id number] 12/07/2019 07:48:00 AM [facility] Name Value Range Interpretation Code Description Data Elizabeth rce(s) Supporting Document(s) SODIUM 143 MEQ/L 135-145 N [facility] POTASSIUM 4.6 MEQ/L 3.5-5.3 N [facility] CHLORIDE 109 MEQ/L 94-110 N [facility] CARBON DIOXIDE 29 MEQ/L 22-33 N [facility] ANION GAP 10 5-16 N [facility] BLOOD UREA NITRO 15 MG/DL 7-25 N [facility] CREATININE 0.6 MG/DL 0.6-1.4 N [facility] GFR > 90.0 ML/MIN [facility] Stage G1 - Normal or high kidney functi on GFR normal is >=90 The MDRD GFR calculation is considered valid between the ages of 18 and 75 years only. The GFR is an estimate of the Glomerular Filtration Rate. It is considered accurate in evaluating patients with Chronic Kidney Disease,but may underestimate kidney function in Healthy Patients. BUN/CREAT RATIO 25 8-36 N [facility] [facility] GLUCOSE 87 MG/DL 70-100 [facility] [place] [facility] CA 9.5 MG/DL 8.7-10.5 N [facility] ID Date Data Source [id number] 12/07/2019 07:48:00 AM [facility] Name Value Range Interpretation Code Description Data Elizabeth rce(s) Supporting Document(s) TSH 1.627 uIU/ML 0.470-4.200 N [facility] Patients should not be tested for 70 ho urs post fluorescein dye angiography. A false depression of result may occur. ID Date Data Source [id number] 11/07/2019 09:00:00 AM [facility] Name Value Range Interpretation Code Description Data Elizabeth rce(s) Supporting Document(s) SODIUM 145 MEQ/L 135-145 [facility] POTASSIUM 4.5 MEQ/L 3.5-5.3 [facility] CHLORIDE 108 MEQ/L 94-110 [facility] CARBON DIOXIDE 29 MEQ/L 22-33 [facility] [place] [facility] ANION GAP 13 5-16 N [facility] BLOOD UREA NITRO 17 MG/DL 7-25 N [facility] CREATININE 0.7 MG/DL 0.6-1.4 [facility] GFR > 90.0 ML/MIN [facility] Stage G1 - Normal or high kidney functi on GFR normal is >=90 The MDRD GFR calculation is considered valid between the ages of 18 and 75 years only. The GFR is an estimate of the Glomerular Filtration Rate. It is considered accurate in evaluating patients with Chronic Kidney Disease,but may underestimate kidney function in Healthy Patients. BUN/CREAT RATIO 24 8-36 [facility] [place] [facility] GLUCOSE 81 MG/DL 70-100 N [facility] CA 9.9 MG/DL 8.7-10.5 [facility] ID Date Data Source [id number] 10/17/2019 08:23:00 AM [facility] Name Value Range Interpretation Code Description Data Elizabeth rce(s) Supporting Document(s) SODIUM 144 MEQ/L 135-145 [facility] POTASSIUM 5.0 MEQ/L 3.5-5.3 [facility] CHLORIDE 109 MEQ/L 94-110 [facility] CARBON DIOXIDE 27 MEQ/L 22-33 [facility] ANION GAP 13 5-16 [facility] BLOOD UREA NITRO 14 MG/DL 7-25 [facility] CREATININE 0.8 MG/DL 0.6-1.4 [facility] GFR > 60.0 ML/MIN [place] [facility] GFR normal is >60 The MDRD GFR calculat ion is considered valid between the ages of 18 and 75 years only. The GFR is an estimate of the Glomerular Filtration Rate. It is considered accurate in evaluating patients with Chronic Kidney Disease,but may underestimate kidney function in Healthy Patients. BUN/CREAT RATIO 17 8-36 [facility] GLUCOSE 75 MG/DL 70-100 N [facility] CA 9.6 MG/DL 8.7-10.5 [facility] ID Date Data Source [id number] 10/12/2019 07:47:00 AM [facility] Name Value Range Interpretation Code Description Data Elizabeth rce(s) Supporting Document(s) SODIUM 148 MEQ/L 135-145 [facility] POTASSIUM 3.4 MEQ/L 3.5-5.3 L [facility] CHLORIDE 108 MEQ/L 94-110 [facility] CARBON DIOXIDE 31 MEQ/L 22-33 N [facility] ANION GAP 12 5-16 N [facility] BLOOD UREA NITRO 11 MG/DL 7-25 [facility] CREATININE 0.8 MG/DL 0.6-1.4 [facility] GFR > 60.0 ML/MIN [facility] GFR normal is >60 The MDRD GFR calculat ion is considered valid between the ages of 18 and 75 years only. The GFR is an estimate of the Glomerular Filtration Rate. It is considered accurate in evaluating patients with Chronic Kidney Disease,but may underestimate kidney function in Healthy Patients. BUN/CREAT RATIO 13 8-36 [facility] GLUCOSE 93 MG/DL 70-100 [facility] CA 9.4 MG/DL 8.7-10.5 [facility] ID Date Data Source [id number] 10/12/2019 07:47:00 AM EST [facility] Name Value Range Interpretation Code Description Data Elizabeth rce(s) Supporting Document(s) MAGNESIUM 1.9 mg/dl 1.8-2.4 N [facility] ID Date Data Source [id number] 10/10/2019 11:30:02 AM EST [facility] ClinicPATIE NT INFORMATIONPatient MRN Name Date of Age Gend*PT [id number] Madhavi Montalvo Nany 1980 39 years F IPPT Location Admission Date/Time Visit ID Attending [id number] 09/23/19 1350 --- --- EPI ID CSN Admitting Provider [id number] Viola Suarez MD([id number]) Attestation signed by Mt Rosenbaum MD at 10/10/2019 11:30 AMPatient seen and examined independently, I agree with plan outlined by ARIANE Alexandre. [facility] DISCHARGE SUMMARYPatient Name: Madhavi Montalvo of : 1980 Age 39 yearsPrimary Physician: RADHA Romeo PCP Khzjbawsx Date: 09/23/2019 Discharge Date: 10/05/2019Antonia will be discharged from [facility] to STR/SNF.Discharge Diagnoses:Principal Problem: Wernicke's encephalopathyActive Problems: Asthma Hypertension Fibromyalgia Altered mental status Anemia History of seizure Anxiety and depression Anorexia nervosa with bulimiaResolved Problems: Acute respiratory failure with hypoxia PARAS (acute kidney injury) Hypokalemia E. coli UTI (urinary tract infection) HypernatremiaDischarge Medications:Current Discharge Medication ListSTART taking these medications Detailsbisacodyl (DULCOLAX) 10 MG suppository Insert 1 suppository (10 mg total) intothe rectum daily as neededdocusate (COLACE) 50 MG/5ML liquid 10 mL (100 mg total) by Per G Tube route 2(two) times a daylevETIRAcetam (KEPPRA) 100 MG/ML solution Take 5 mL (500 mg total) by mouth 2(two) times a daymetoprolol tartrate (LOPRESSOR) 50 MG tablet Take 1 tablet (50 mg total) bymouth 2 (two) times a daythiamine 100 MG tablet Take 1 tablet (100 mg total) by mouth dailyCONTINUE these medications which have CHANGED Detailsgabapentin (NEURONTIN) 100 MG capsule Take 2 capsules (200 mg total) by mouth 3(three) times a dayCONTINUE these medications which have NOT CHANGED Detailsacetaminophen (TYLENOL) 325 MG tablet Take 650 mg by mouth 2 (two) times a dayalbuterol (PROVENTIL HFA;VENTOLIN HFA) 108 (90 Base) MC G/ACT inhaler Inhale 2puffs every 4 (four) hours as needed for wheezingbudesonide-formoterol (SYMBICORT) 160-4.5 MCG/ACT inhaler Inhale 2 puffs 2 (two)times a dayDULoxetine (CYMBALTA) 60 MG capsule Take 60 mg by mouth dailyfolic acid (FOLVITE) 1 MG tablet Take 2 mg by mouth dailyhydroxychloroquine (PLAQUENIL) 200 MG tablet Take 1 tablet (200 mg total) bymouth nightlymethotrexate 2.5 MG tablet Take 3 tablets (7.5 mg total) by mouth once a week OnSundayQty: 12 tablet, Refills: 0montelukast (SINGULAIR) 10 MG tablet Take 10 mg by mouth nightlypantoprazole (PROTONIX) 40 MG tablet Take 40 mg by mouth dailySUMAtriptan (IMITREX) 50 MG tablet Take 50 mg by mouth every 6 (six) hours asneeded for migraine Take one by mouth at onset of headache. May repeat onceafter 2 hours if needed.tiotropium (SPIRIVA HANDIHALER) [address] 1 capsule intoinhaler and inhale dailySTOP taking these medications drdfelbxhw-afaokyqhupszc-gmffrzvk (FIORICET, ESGIC) 50-325-40 MG per tablet cyclobenzaprine (FLEXERIL) 5 MG tablet diphenhydrAMINE (BENADRYL) 25 MG tablet hydrOXYzine (VISTARIL) 50 MG capsule LORazepam (ATIVAN) 1 MG tablet metoclopramide (REGLAN) 10 MG tablet misoprostol (CYTOTEC) 200 MCG tablet NIFEdipine ER (ADALAT CC) 60 MG 24 hr tablet OLANZapine (ZYPREXA) 20 MG tablet ondansetron (ZOFRAN-ODT) 4 MG disintegrating tablet pilocarpine (SALAGEN) 5 MG tablet sucralfate (CARAFATE) 1 g tablet topiramate (TOPAMAX) 100 MG tablet traZODone (DESYREL) 100 MG tabletFollow Up Instructions:The patient was given an after visit summary.Follow up with MD/ADMINISTRATIVE SUPPORT TECHNICIAN/PA at [facility]/STR.Repeat BMP/CBC weekly for the first 2 weeks.Brief Hospital Course: This is a 39-year-old white female with a past medical historysignificant for Sjogren's disease, hypertension, PCOS, lupus, fibromyalgia,anxiety/depression, migraines, IBS, and a status post gastric bypass withmarginal ulcer who initially presented [facility] ER after her son foundher unresponsive on unknown date and was then transferred to [facility] on 09/08/2019. At [facility], her U tox is positive for metabolites ofamphetamines, cannabinoids, and tricyclic antidepressants. She was alsodetected to have a UTI and was treated with ant ibiotics. Labs there alsorevealed an acute kidney injury, metabolic acidosis, and abnormal electrolytes.Echocardiogram 09/13/2019 revealed LVEF 66%, mild TR, and mild PAH. CT head09/18/2019 and 09/23/2019 revealed no evidence of intracranial pathology. CTchest without contrast on 09/23/2019 demonstrated volume loss of entire rightlower lobe with opacification of bronchus intermedius may be secondary toendobronchial tumor or aspiration. Diffuse alveolar parenchymal diseaseinvolving the anterior aspect of both lobes suspicious for pulmonary edema wassuspected. She underwent an EEG on 09/12/2019 which was abnormal due to grosslydisorganized slow activity indicating diffuse cerebral dysfunction. A KUB on09/21/2019 demonstrated moderately distended loops of bowel suspicious for SBO.On 09/20/2019 and EEG was repeated and was abnormal due to grossly disorganized,slow activity indicating diffuse cerebral dysfunction. There were visibleportions of the record, suggesting seizure activity predominantly in the leftcerebral hemisphere. She was started on IV Keppra. She was evaluated byneurology at [facility] and they opined that her presentation was mostly related totoxic exposure to substances including amphetamine, cannabinoids, andanticholinergic agents. Ultimate working diagnosis at [facility] was that the patienthad toxic-metabolic encephalopathy. She was started on IV thiamine on09/13/2019. While at [facility], from 09/22/2019 to 09/23/2019 she was noted to haveprogressive deterioration in sensorium with acute hypoxic respiratory failurenecessitating intubation following which she was transferred to [facility] on 09/23/2019 for higher level of care. On 09/23/2019, a chest x- rayconfirmed right middle lobe and right lower lobe collapse. Labs revealedleukocytosis, normocytic anemia, acute kidney injury, hyponatremia, hypokalemia,hyperphosphatemia, and had an elevated procalcitonin of 6.56. Mechanicalventilation was continued upon transfer and patient was managed with empiric IVantibiotics, appropriate fluid therapy and supportive measures. Bronchoscopywas performed in ICU on 09/23/2019 which revealed evidence of mucous pluggingcausing the collapse of right middle and lower lobes. MRI brain on 11/23/2018report no acute intracranial changes. Neurology consultation was obtained hereon 09/23/2019, who opined that on clinical grounds, and based on the clinicalprogression, the diagnosis here is likely a severe case of Wernicke'sencephalopathy in a patient with malnourishment, neuropathy, and nearly comatosestate. She has shown some stability after IV thiamine was started 1 week ago.Recommendations included were to continue high-dose IV thiamine, continueKeppra, continue supportive care. Her acute kidney injury subsequentlyimproved, she was extubated on 09/29/2019 and she was subsequently wastransferred out to the PCU on 09/30/2019. She was evaluated by psychiatry on09/30/2019 who opined that the current clinical scenario was neurologic innature, Wernicke's encephalopathy, as outlined by neurology and recommendedcontinuation of thiamine and supportive measures. Post extubation she wasdetected to have profound oral pharyngeal dysphasia. An NG tube was placed atbedside on 10/01/2019 and tube feeding was initiated. Since then, she removedher own NG tube. On 10/04/2019, she was seen by MATERIAL STRESS TESTER, a bedside swallowevaluation was completed and her diet has been advanced to pur ed solids honeythickened liquids, medications crushed in applesauce. Wernicke's encephalopathy--Continue thiamine supplementation. Continue supportive care measures.Re-orient as needed. Avoid deleriogenic medications. OP dysphagia--Status post MATERIAL STRESS TESTER bedside evaluation, diet advance to pur ed solids with honeythickened liquids. Crush medications in pur e. Encourage PO intake, she is atotal feed. Anxiety/depression/fibromyalgia--Continue Cymbalta and Neurontin. History of seizures--Continue Keppra. Hypertension--Continue Metoprolol. Will d/c lasix as she appears euvolemic.PT evaluation recommended STR. She is medically ready for discharge today.Family is in agreement. No further concerns.Discharge Exam:Blood Pressure: BP: (!) 162/99 Pulse: Heart Rate: 97Temperature: Temp: 97.9 F Respirations: Resp: 14Admission Weight: Weight: 76.5 kg (168 lb 10.4 oz) O2 Saturation: SpO2: 97 %Discharge Weight: Weight: 85 kg (187 lb 6.3 oz) BMI: Body mass index is 31.18kg/m .Physical Exam General in no apparent distress HEENT Normal Lungs normal and clear to auscultation Heart regular rate and rhythm Abdomen soft, non-tender, non-distended, no organomegaly or masses Musculoskeletal negative Neuro MARIO and reflexes normal and symmetricDiagnostics:Imaging:Mri Brain Without ContrastResult Date: 09/25/2019[place] [address] Patient Name: RIKY MONTALVO : 1980 Sex: F Ordering Provider: JUANJO VERDUGO AuthorizingProv: JUANJO VERDUGO Referring Provider: Procedure Performed: MRI BRAIN WOCONTRAST Exam Date: 09/23/2019 19:25 Patient Class: Inpatient Reason for Exam:Altered mental status, coma. Found unresponsive 09/08 with little improvementsince. ? seizure activity since. ? Hypoxic event Technique: MRI images obtainedon a 1.5 phyllis scanner. Comparison: None Findings: Motion noted on multiplesequences. There is no extra-axial collection, mass, acute intracranialhemorrhage or large vessel infarction seen. Ventricles and other CSF spaces havean unremarkable appearance. The zendejas-white junction is maintained. The cervicalmedullary junction demonstrates no significant abnormality. Visualized orbits,paranasal sinuses and mastoid air cells are normal. Partially visualizedendotracheal tube and ET tube with mucous secretions noted in the nasopharyngealand oropharyngeal region.IMPRESSION: No acute intracranial changes are seen. The above findings werereported on a stat basis with a preliminary report typed and fax at the time ofthe examination by Dr. Yuki Xiong. Report electronically signed by:BRANDI GODOY On 09/25/2019 8:10 AM Workstation ID: [id number] Chest PortableResult Date: 10/01/2019[place] [address] Patient Name: RIKY MONTALVO : 1980 Sex: F Ordering Provider: KATHERINE REAVES AuthorizingProv: KATHERINE REAVES Referring Provider: Procedure Performed: XR CHESTPORTABLE Exam Date: 10/01/2019 10:57 Patient Class: Inpatient Reason for Exam:confirm NGT placement Technique: AP portable view obtained. Comparison:09/28/2019. Findings: The ET tube has been removed. The distal NG tube is in thestomach. There is mild interstitial pulmonary edema. There is a probable smallright pleural effusion. There is no pneumothorax. The cardiomediastinalsilhouette is unremarkable.IMPRESSION: 1. NG tube in stomach. 2. Mild interstitial pulmonary edema andprobable small right pleural effusion. Report electronically signed by: VIVIANA On 10/01/2019 11:02 AM Workstation ID: [id number] Chest PortableResult Date: 09/28/2019[place] [address] Patient Name: RIKY MONTALVO : 1980 Sex: F Ordering Provider: TEODORO ROLAND AuthorizingProv: TEODORO ROLAND Referring Provider: Procedure Performed: XR CHESTPORTABLE Exam Date: 09/28/2019 13:03 Patient Class: Inpatient Reason for Exam:Respiratory Failure. ? pneumonia Technique: AP portable view obtained.Comparison: 09/17/2019 09/23/2019. Findings: The cardiac mediastinal silhouette isunchanged. Trach tube, NG tube and right-sided PICC catheter unchanged. Smalleffusions and bibasilar atelectasis/pneumonia unchanged.IMPRESSION: No change small effusions and bibasilar atelectasis/pneumonia.Report electronically signed by: BRANDI GODOY On 09/28/2019 1:15 PM WorkstationID: [id number] Chest PortableResult Date: 09/25/2019[place] [address] Patient Name: RIKY MONTALVO : 1980 Sex: F Ordering Provider: SULMA PRAJAPATI AuthorizingProv: SULMA PRAJAPATI Referring Provider: Procedure Pe rformed: XR CHESTPORTABLE Exam Date: 09/25/2019 14:23 Patient Class: Inpatient Reason for Exam:increased respiratory secretions/fever Technique: AP portable view obtained.Comparison: September 23, 2019. Findings: The heart is large. There is muchimproved aeration in the right middle and right lower lobe but there ispersistent bilateral diffuse increased lung markings and bronchial wallthickening. The minor fissure is thicker. The right peripherally insertedcentral venous catheter terminates in the superior vena cava. Endotracheal tubeand the nasogastric tube are in good position.IMPRESSION: Cardiomegaly and congestive heart failure. Much better aerationright middle lobe and right lower lobe. Pneumonia not excluded. Follow-up isrecommended after treatment. Report electronically signed by: ASTER MATUTE On09/25/2019 2:35 PM Workstation ID: [id number] Chest PortableResult Date: 09/23/2019[place] [address] Patient Name: RIKY MONTALVO : 1980 Sex: F Ordering Provider: JUANJO VERDUGO AuthorizingProv: JUANJO VERDUGO Referring Provider: Procedure Performed: XR CHESTPORTABLE Exam Date: 09/23/2019 17:08 Patient Class: Inpatient Reason for Exam:post-bronchoscopy, OGT advanced Technique: AP portable view obtaine d.Comparison: 09/23/2019 Findings: Endotracheal tube is 3 to 4 cm from the karime.Central line tip is in the cavoatrial junction. Gastric tube tip is in thestomach. There is a small left pleural effusion. Right lower lobe atelectasis isseen. Opacities in the right lower lung are seen. Coronary vasculature may becephalized.IMPRESSION: Gastric tube tip is in the stomach. Lungs and mediastinum appearstable. Report electronically signed by: MATTHIAS FLEMING On 09/23/2019 5:29 PMWorkstation ID: [id number] Chest PortableResult Date: 09/23/2019[place] [address] Patient Name: RIKY MONTALVO : 1980 Sex: F Ordering Provider: JUANJO VERDUGO AuthorizingProv: JUANJO VERDUGO Referring Provider: Procedure Performed: XR CHESTPORTABLE Exam Date: 09/23/2019 14:40 Patient Class: Inpatient Reason for Exam: ETTand OGT placement Technique: AP portable view obtained. Comparison: January Findings: There is collapse of the right middle and right lower lobe.Endotracheal tube is in satisfactory position. The nasogastric tube terminatesat the esophagogastric junction and should be advanced about 8 to 10 cm. Theright internal jugular central venous catheter is in satisfactory position.Increased interstitial density is seen in the lung fieldsIMPRESSION: Right middle and right lower lobe collapse. Endotracheal tube tip isin the distal esophagus and should be advanced approximately 8 to 10 cm. Suspectmild pulmonary edema. Small left pleural effusion. Report electronically signedby: CALLUM LOIS On 09/23/2019 2:50 PM Workstation ID: [id number] Lower Extremity Venous Doppler BilateralResult Date: 09/23/2019[place] [address] Patient Name: RIKY MONTALVO : 1980 Sex: F Ordering Provider: JUANJO VERDUGO AuthorizingProv: JUANJO VERDUGO Referring Provider: Procedure Performed: US LOWEREXTREMITY VENOUS BILATERAL Exam Date: 09/23/2019 20:20 AccessionNumber: [id number] Patient Class: Inpatient Reason forExam: hypoxia Technique: Duplex sonography was performed. Comparison: NoneFindings: Bilateral common femoral, superficial femoral, and popliteal veins arecompressible. Flow was documented with color and spectral Doppler.IMPRESSION: No evidence of deep venous thrombosis. Report electronically signedby: MATTHIAS FLEMING On 09/23/2019 8:56 PM Workstation ID: [id number] REPORT Name: Madhavi MontalvoMRN: [id number]: September 23, 2019 EEG # [id number] SEX: female [facility]: [facility] REF: [place] Medications: Levetiracetam, fentanyl, Propofol Date of tracing: September 23, 2019 Time of tracin:09-15:30 Indication: Madhavi Montalvois a 39-year-old female who was found unresponsiveand has been hospitalized in critical condition for almost two weeks. This EEGwas requested to evaluate for epileptiform abnormalities. Clinical state: coma The EEG background was characterized by continuous, diffuse, low amplitude 2- 5Hz theta and delta range slowing. There was no discernible backgroundorganization or voltage and frequency gradients. There was no posteriordominant rhythm. With tactile or noise stimulation, there was no change in theEEG background Response to hyperventilation: not performedResponse to photic stimulation: u nremarkable Single electrode EKG: NSR Throughout the recording, there were no epileptiform discharges. IMPRESSION:This is an abnormal EEG due to the presence of persistent, diffuse mixedfrequency slowing of the background rhythm and loss of the usual organizationand gradients. There are no epileptiform abnormalities or electrographicseizures. These findings are suggestive of a moderate-severe, diffuse, nonspecificencephalopathy which can be seen in the setting of sedation. Signature: Skylar Cueto, MDDate: September 23, 2019Time: 5:24 PMSwallow Treatment Patient Name:Madhavi Montalvo Date of : 1980 Length of MATERIAL STRESS TESTER TreatmentLength of Treatment: 30 ImpressionsImpressions: Oral Dysphagia, Pharyngeal DysphagiaDiet Solids R ecommendation: PureedDiet Liquids Recommendations: Honey thick onlyDiet Liquids Delivery Recommendations: Cup, No strawsPosition : 90 degreesRecommended Form of Medications: With puree, Crushed Patient HistoryReviewed: PMHx, PSHx, Social Hx, Hospital CourseComplaints: NoneAgreeable: WillingCurrent Intake DataSolids: NPOPain EvaluationPain Evaluation: No/denies pain Baseline AssessmentRespiratory Status: Room airBehavior/Cognition: AlertPatient Positioning: Upright in bed Consistencies AssessedConsistencies Assessed: YesThinPresentation: CupOral: Suspected Decrease Bolus ControlPharyngeal: Decreased control coordinated swallow, Cough - afterHoneyPresentation: CupOral: Within functional limitsPharyngeal: Within Functional LimitsPureePresentation: Self FedOral: Within functional limitsPharyngeal: Within Functional Limits NG tube removed. Overt coughing with thin liquids. Pt clinically appeared to tolerating puree,honey thick liquids.Will initiate diet of puree, honey thick liquids. Will monitor diet tolerance.Educated pt/family with results and recommendations. PrognosisPrognosis : FairIndividuals ConsultedConsulted and Agree with Results and Recommendations: Patient, PA, Family member Treatment RecommendationsTherapy: IndicatedGoalsGoals: Least restrictive diet as tolerated, Patient will tolerate recommendeddiet without observed clinical signs of aspiration, Patient/family educationRehabilitation AssessmentRehab Potential: FairRehabilitation Assessment: PerformedRehabilitation Assessment: Seen by Speech and Language Therapy SafetyPatient Location Upon Arrival: In bedPatient Location After Tx: In bedSafety Measures: Maintained Signature: ASHLEY CONROYDate: October 04, 2019Time: 11:08 AMConsultants:Psych: Dr. JeanNeurology: Dr. Peacock Labs:BMP:Lab ResultsComponent Value Date NA 145 10/03/2019 K 3.7 10/03/2019 CL 106 10/03/2019 CO2 32 (H) 10/03/2019 ANIONGAP 7 10/03/2019 CALCIUM 8.8 10/03/2019 GLU 104 (H) 10/03/2019 BUN 14 10/03/2019 CREATININE 0.99 10/03/2019 CREATININE 0.9 02/04/2019 GFRAA >60 10/03/2019 GFRNONAA >60 10/03/2019CBC without Diff:Lab ResultsComponent Value Date WBC 8.9 10/03/2019 RBC 3.22 (L) 10/03/2019 HGB 9.4 (L) 10/03/2019 HCT 29.0 (L) 10/03/2019 MCV 90.0 10/03/2019 MCH 29.1 10/03/2019 MCHC 32.4 10/03/2019 RDW 15.4 (H) 10/03/2019 PLT 305 10/03/2019 MPV 8.8 10/03/2019Allan Ardon, NP10:49 AMTotal time spent for discharge on date of discharge: 40 minutes Name Value Range Interpretation Code Description Data Elizabeth rce(s) Supporting Document(s) ID Date Data Source [id number] 10/10/2019 08:18:00 AM [facility] Name Value Range Interpretation Code Description Data Elizabeth rce(s) Supporting Document(s) SODIUM 146 MEQ/L 135-145 [facility] POTASSIUM 3.0 MEQ/L 3.5-5.3 L [facility] CHL[facility] 104 MEQ/L 94-110 [facility] [facility] DIOXIDE 30 MEQ/L 22-33 [facility] ANION GAP 15 5-16 [facility] BLOOD UREA NITRO 12 MG/DL 7-25 [facility] CREATININE 0.7 MG/DL 0.6-1.4 [facility] GFR > 60.0 ML[facility] GFR normal is >60 The MDRD GFR calculat ion is considered valid between the ages of 18 and 75 years only. The GFR is an estimate of the Glomerular Filtration Rate. It is considered accurate in evaluating patients with Chronic Kidney Disease,but may underestimate kidney function in Healthy Patients. BUN/CREAT RATIO 17 8-36 [facility] [place] GLUCOSE 76 MG/DL 70-100 [facility] [place] [facility] CA 9.4 MG/DL 8.7-10.5 N [facility] ID Date Data Source [id number] 10/07/2019 07:18:00 AM EST [facility] Name Value Range Interpretation Code Description Data Elizabeth rce(s) Supporting Document(s) WHITE BLOOD COUNT 10.12 10^3/uL 4.00-10.50 N [facility] RED BLOOD COUNT 3.38 10^6/uL 3.90-5.20 L [facility] th HEMOGLOBIN 9.8 G/DL 11.5-15.6 L [place] HEMATOCRIT 31.0 % 35.0-46.0 [facility] MCV 91.7 FL 80.0-100.0 N [facility] MCH 29.0 PG 27.0-34.0 [facility] MCHC 31.6 G/DL 32-36 [facility] RDW 14.4 % 11.5-14.5 N [facility] PLATELET COUNT 429 10^3/uL 130-400 H [place] [facility] MPV 11.2 FL 8.7-13.2 N [facility] GRAN % (AUTO) 64.1 % 42.0-75.0 N [place] [facility] LYMPH % (AUTO) 24.1 % 20.0-51.0 N [place] [facility] MONO % (AUTO) 7.4 % 2.0-15.0 N [place] [facility] EOS % (AUTO) 2.6 % 0.0-11.0 N [place] [facility] BASO % (AUTO) 1.4 % 0.0-2.0 N [place] [facility] IG % (AUTO) 0.4 % 1.00-5.00 [facility] IG # (AUTO) 0.0 10^3/uL <0.5 [facility] GRAN # (AUTO) 6.49 10^3/uL 1.50-6.50 [facility] LYMPH # (AUTO) 2.4 k/uL 1.0-5.0 [facility] MONO # (AUTO) 0.75 k/uL 0.20-1.50 N [facility] EOS # (AUTO) 0.26 10^3/uL 0.00-1.10 [facility] BASO # (AUTO) 0.14 10^3/uL 0.00-0.20 [facility] ID Date Data Source [id number] 10/07/2019 07:51:00 AM EST [facility] Name Value Range Interpretation Code Description Data Elizabeth rce(s) Supporting Document(s) SODIUM 150 MEQ/L 135-145 [facility] POTASSIUM 3.1 MEQ/L 3.5-5.3 L [facility] CHLORIDE 106 MEQ/L 94-110 [facility] CARBON DIOXIDE 30 MEQ/L 22-33 [facility] ANION GAP 17 5-16 H [facility] BLOOD UREA NITRO 16 MG/DL 7-25 N [facility] CREATININE 0.9 MG/DL 0.6-1.4 N [facility] GFR > 60.0 ML/MIN [facility] GFR normal is >60 The MDRD GFR calculat ion is considered valid between the ages of 18 and 75 years only. The GFR is an estimate of the Glomerular Filtration Rate. It is considered accurate in evaluating patients with Chronic Kidney Disease,but may underestimate kidney function in Healthy Patients. BUN/CREAT RATIO 17 8-36 N [facility] GLUCOSE 78 MG/DL 70-100 [facility] CA 9.7 MG/DL 8.7-10.5 [facility] BILIRUBIN,TOTAL 0.3 MG/DL 0.1-1.3 N [facility] AST 14 U/L 5-40 N [facility] ALT 14 U/L 5-48 [facility] ALKALINE PHOSPHATASE 83 U/L 40-140 N [facility]th TOTAL PROTEIN 6.3 G/DL 5.9-8.3 N [facility] ALBUMIN 4.0 G/DL 3.0-5.1 [facility] GLOBULIN 2.3 G/DL 1.5-3.5 [facility] ALB/GLOB RATIO 1.7 G/DL 1.0-2.7 [facility] ID Date Data Source [id number] 10/04/2019 08:49:43 AM EST [facility] Name Value Range Interpretation Code Description Data Elizabeth rce(s) Supporting Document(s) POC NOVA GLU 100 mg/dL (70-99) H [facility] STA[facility] ID Date Data Source [id number] 10/04/2019 06:53:38 AM EST [facility] Name Value Range Interpretation Code Description Data Elizabeth rce(s) Supporting Document(s) POC NOVA GLU 100 mg/dL (70-99) H [facility] ID Date Data Source [id number] 10/04/2019 04:46:59 AM EST [facility] Name Value Range Interpretation Code Description Data Elizabeth rce(s) Supporting Document(s) POC NOVA GLU 96 mg/dL (70-99) [facility] ID Date Data Source [id number] 10/04/2019 03:52:27 AM EST [facility] Name Value Range Interpretation Code Description Data Elizabeth rce(s) Supporting Document(s) POC NOVA GLU 98 mg/dL (70-99) [facility] ID Date Data Source [id number] 10/03/2019 08:24:29 PM EST [facility] Name Value Range Interpretation Code Description Data Elizabeth rce(s) Supporting Document(s) POC NOVA GLU 108 mg/dL (70-99) H [facility] ID Date Data Source [id number] 10/03/2019 05:25:15 PM EST [facility] Name Value Range Interpretation Code Description Data Elizabeth rce(s) Supporting Document(s) POC NOVA GLU 92 mg/dL (70-99) [facility] ID Date Data Source [id number] 10/03/2019 03:27:37 PM EST [employer] [facility] ClinicPATIE NT INFORMATIONPatient MRN Name Date of Age Gend*PT [id number] Madhavi Montalvo 1980 39 years F IPPT Location Admission Date/Time Visit ID Attending [id number] 09/23/19 1060 --- Katherine Reaves MD([id number]) EPI ID CSN Admitting Provider [id number] Viola Suarez MD([id number])ConsultsPatient seen briefly this morning in follow-up. She has continued relativelyunchanged. Swallow evaluation reveals rather extensive dysphagia.On MSE, the patient was reasonably alert. She was fairly withdrawn, offering nospontaneous speech. When asked if she had met the interviewer before, she saidno. When asked if she has used a lot of drugs, she replied affirmatively. Whenasked why she had done so, she looked somewhat distraught, but said nothing.Impressions:1 I agree that the patient will need a correction facility, and hopefullywill have rehabilitative services as part of her care plan. In the meantime, Iencourage continuation of treatment with high dose, parenteral thiamine. 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 Even if she is beyond the window of complete reversibility, shemight have the potential for partial improvement. Because she may well havemalabsorption of thiamine as a result of gastric bypass surgery or otherfactors, including possible alcohol use, the parenteral route for administrationof thiamine is preferable. Name Value Range Interpretation Code Description Data Elizabeth rce(s) Supporting Document(s) ID Date Data Source [id number] 10/03/2019 12:57:05 PM EST [facility] Name Value Range Interpretation Code Description Data Elizabeth rce(s) Supporting Document(s) POC NOVA GLU 110 mg/dL (70-99) H [facility] ID Date Data Source [id number] 10/03/2019 07:56:01 AM EST [facility] Name Value Range Interpretation Code Description Data Elizabeth rce(s) Supporting Document(s) POC NOVA GLU 100 mg/dL (70-99) [facility] ID Date Data Source [id number] 10/03/2019 06:56:39 AM EST [facility] Name Value Range Interpretation Code Description Data Elizabeth rce(s) Supporting Document(s) SODIUM 145 mmol/L (136-145) [facility] POTASSIUM 3.7 mmol/L (3.6-5.2) [facility] CHLORIDE 106 mmol/L (100-108) [facility] CO2 32 mmol/L (22-31) H [facility] ANION GAP 7 mmol/L (7-16) [facility] UREA NITROGEN 14 mg/dL (7-24) [facility] CREATININE 0.99 mg/dL (0.60-1.00) [facility] BUN/CREAT RATIO 14.1 RATIO (10.0-20.0) [facility] GLUCOSE 104 mg/dL (70-99) H [facility] CALCIUM 8.8 mg/dL (8.4-10.2) [facility] GFR >60 ml/min/1.73m2 (>59) [facility] GFR ( AMER) >60 ml/min/1.73m2 (>59) [facility] GFR INTERPRETATION [facility] --NORMAL KIDNEY FUNCTION OR MILD DISEASE - GFR >OR= 60CHRONIC KIDNEY DISEASE - GFR 15 - 59RENAL FAILURE - GFR <15 Est. GFR calculation based on the MDRDstudy equation, which assumes a steadystate for creatinine. Est. GFR should notbe used for medication dosing. ID Date Data Source [id number] 10/03/2019 06:30:11 AM EST [facility] Name Value Range Interpretation Code Description Data Elizabeth rce(s) Supporting Document(s) WBC 8.9 10*3/uL (4.1-11.0) [facility] RBC 3.22 10*6/uL (4.00-5.40) L [facility] HGB 9.4 g/dL (12.0-16.0) L [facility] HCT 29.0 % (36.0-47.0) L [facility] MCV 90.0 fL (80.0-95.0) [facility] MCH 29.1 pg (27.0-32.0) [facility] MCHC 32.4 g/dL (32.0-36.0) [facility] RDW 15.4 % (10.5-14.5) H [facility] PLT 305 10*3/uL (150-450) [facility] MPV 8.8 fL (7.1-10.7) [facility] ID Date Data Source [id number] 10/03/2019 04:24:25 AM EST [facility] Name Value Range Interpretation Code Description Data Elizabeth rce(s) Supporting Document(s) POC NOVA GLU 102 mg/dL (70-99) H [facility] ID Date Data Source [id number] 10/02/2019 11:59:51 PM EST [facility] Name Value Range Interpretation Code Description Data Elizabeth rce(s) Supporting Document(s) POC NOVA GLU 94 mg/dL (70-99) [facility] ID Date Data Source [id number] 10/02/2019 07:55:05 PM EST [facility] Name Value Range Interpretation Code Description Data Elizabeth rce(s) Supporting Document(s) POC NOVA GLU 103 mg/dL (70-99) H [facility] ID Date Data Source [id number] 10/02/2019 04:43:30 PM EST [facility] Name Value Range Interpretation Code Description Data Elizabeth rce(s) Supporting Document(s) POC NOVA GLU 108 mg/dL (70-99) H [facility] ID Date Data Source [id number] 10/02/2019 11:48:32 AM EST [facility] Name Value Range Interpretation Code Description Data Elizabeth rce(s) Supporting Document(s) POC NOVA GLU 125 mg/dL (70-99) H [facility] ID Date Data Source [id number] 10/02/2019 08:18:51 AM EST [facility] Name Value Range Interpretation Code Description Data Elizabeth rce(s) Supporting Document(s) POC NOVA GLU 118 mg/dL (70-99) H [facility] ID Date Data Source [id number] 10/02/2019 10:36:33 AM EST [facility] Name Value Range Interpretation Code Description Data Elizabeth rce(s) Supporting Document(s) MAGNESIUM 2.2 mg/dL (1.7-2.4) [facility] ID Date Data Source [id number] 10/02/2019 06:25:34 AM EST [facility] Name Value Range Interpretation Code Description Data Elizabeth rce(s) Supporting Document(s) SODIUM 143 mmol/L (136-145) [facility] POTASSIUM 3.7 mmol/L (3.6-5.2) [facility] CHLORIDE 105 mmol/L (100-108) [facility] CO2 28 mmol/L (22-31) [facility] ANION GAP 10 mmol/L (7-16) [facility] UREA NITROGEN 10 mg/dL (7-24) [facility] CREATININE 1.08 mg/dL (0.60-1.00) H [facility] BUN/CREAT RATIO 9.3 RATIO (10.0-20.0) L [facility] GLUCOSE 109 mg/dL (70-99) H [facility] CALCIUM 8.6 mg/dL (8.4-10.2) [facility] GFR 56 ml/min/1.73m2 (>59) L [facility] GFR ( AMER) >60 ml/min/1.73m2 (>59) [facility] GFR INTERPRETATION [facility] --NORMAL KIDNEY FUNCTION OR MILD DISEASE - GFR >OR= 60CHRONIC KIDNEY DISEASE - GFR 15 - 59RENAL FAILURE - GFR <15 Est. GFR calculation based on the MDRDstudy equation, which assumes a steadystate for creatinine. Est. GFR should notbe used for medication dosing. ID Date Data Source [id number] 10/02/2019 05:26:07 AM EST [facility] Name Value Range Interpretation Code Description Data Elizabeth rce(s) Supporting Document(s) WBC 9.7 10*3/uL (4.1-11.0) [facility] RBC 3.27 10*6/uL (4.00-5.40) L [facility] HGB 9.7 g/dL (12.0-16.0) L [facility] HCT 29.4 % (36.0-47.0) L [facility] MCV 90.0 fL (80.0-95.0) [facility] MCH 29.7 pg (27.0-32.0) [facility] MCHC 33.0 g/dL (32.0-36.0) [facility] RDW 15.7 % (10.5-14.5) H [facility] PLT 320 10*3/uL (150-450) [facility] MPV 8.6 fL (7.1-10.7) [facility] Procedure Social History Code Duration Value Status Description Data Source(s ) 05/09/2020 03:54:00 AM EDT Former Smoker completed Former Smoker [employer] Smoking 05/09/2020 03:54:00 AM EDT Ex-smoker (finding) complet ed Ex-smoker (finding) [facility] 04/16/2020 12:00:00 AM EDT Current Cigarette Smoker 1 Pack Daily completed Current Cigarette Smoker 1 Pack Daily [facility] ([facility] [place]) 03/28/2020 05:53:00 PM EDT Former Smoker completed Former Smoker [facility] Smoking 03/28/2020 05:53:00 PM EDT Ex-smoker (finding) complet ed Ex-smoker (finding) [facility] 03/28/2020 05:53:00 PM EDT Former Smoker completed Former Smoker [facility] Smoking 03/28/2020 05:53:00 PM EDT Ex-smoker (finding) complet ed Ex-smoker (finding) [facility] 03/28/2020 05:53:00 PM EDT Former Smoker completed Former Smoker [facility] Smoking 03/28/2020 05:53:00 PM EDT Ex-smoker (finding) complet ed Ex-smoker (finding) [facility] 03/28/2020 02:41:29 PM EDT Former Smoker completed Former Smoker [facility] Smoking 03/28/2020 02:41:00 PM EDT Ex-smoker (finding) complet ed Ex-smoker (finding) [facility] Vital Signs ID Date Data Source UNK Name Value Range Interpretation Code Description Data Source(s) Diastolic blood pressure 77 mm[Hg] 77 mm[Hg] [facility] Systolic blood pressure 112 mm[Hg] 112 mm[Hg] [facility] Oxygen saturation in Arterial blood by Pulse oximetry 98 % 98 % [facility] Respiratory rate 16 /min 16 /min [facility] Heart rate 68 /min 68 /min [facility] Body temperature 98.3 [degF] 98.3 [degF] [facility] Body weight 70.00 kg 70.00 kg [facility] Body mass index (BMI) [Ratio] 25.1 kg/m2 25.1 k g/m2 [facility] ([facility] [place] Body weight 70.478 kg 70.478 kg [facility] ([facility] [place] Body weight 155.38 [lb_av] 155.38 [lb_av] [facility] ([facility] [place]) Body height 66 [in_i] 66 [in_i] [facility] ([facility] [place]) 5'6" Diastolic blood pressure 74 mm[Hg] 74 mm[Hg] [facility] Systolic blood pressure 125 mm[Hg] 125 mm[Hg] [facility] Heart rate 60 /min 60 /min [facility] Diastolic blood pressure 74 mm[Hg] 74 mm[Hg] [facility] Systolic blood pressure 125 mm[Hg] 125 mm[Hg] [facility] Heart rate 60 /min 60 /min [facility] Diastolic blood pressure 74 mm[Hg] 74 mm[Hg] [facility] Systolic blood pressure 125 mm[Hg] 125 mm[Hg] [facility] Heart rate 60 /min 60 /min [facility] Oxygen saturation in Arterial blood by Pulse oximetry 100 % 100 % [facility] Respiratory rate 16 /min 16 /min [facility] Body temperature 98.4 [degF] 98.4 [degF] [facility] Oxygen saturation in Arterial blood by Pulse oximetry 100 % 100 % [facility] Respiratory rate 16 /min 16 /min [facility] Body temperature 98.4 [degF] 98.4 [degF] [facility] Oxygen saturation in Arterial blood by Pulse oximetry 100 % 100 % [facility] Respiratory rate 16 /min 16 /min [facility] Body temperature 98.4 [degF] 98.4 [degF] [facility] Body mass index (BMI) [Ratio] 26.1 kg/m2 26.1 k g/m2 [facility] Body height 165.00 cm 165.00 cm [facility] Body mass index (BMI) [Ratio] 26.1 kg/m2 26.1 k g/m2 [facility] Body height 165.00 cm 165.00 cm [facility] Body mass index (BMI) [Ratio] 26.1 kg/m2 26.1 k g/m2 [facility] Body height 165.00 cm 165.00 cm [facility] Body weight 71.20 kg 71.20 kg [facility] Body weight 71.20 kg 71.20 kg [facility] Body weight 71.20 kg 71.20 kg [facility] Diastolic blood pressure 75 mm[Hg] 75 mm[Hg] [facility] Systolic blood pressure 130 mm[Hg] 130 mm[Hg] [facility] Oxygen saturation in Arterial blood by Pulse oximetry 100 % 100 % [facility] Respiratory rate 18 /min 18 /min [facility] Heart rate 53 /min 53 /min [facility] Body temperature 98.2 [degF] 98.2 [degF] [facility] Body weight 70.00 kg 70.00 kg [facility] Body height 165.1 cm 165.1 cm [facility] Heart rate 79 /min 79 /min [facility] Diastolic blood pressure 86 mm[Hg] 86 mm[Hg] [facility] Systolic blood pressure 147 mm[Hg] 147 mm[Hg] [facility] Body temperature 36.61 Karri 36.61 Karri [facility] Oxygen saturation in Arterial blood by Pulse oximetry 97 % 97 % [facility] Respiratory rate 14 /min 14 /min [facility] ID Date Data Source [id number] 03/06/2020 02:08:00 PM EDT [facility] Name Value Range Interpretation Code Description Data Source(s) WEIGHT 81.5 kilos 81.5 kilos [facility] HEIGHT 167.64 centimeters 167.64 centimeter s [facility] WEIGHT 85 kilos 85 kilos [facility] HEIGHT 167.64 centimeters 167.64 centimeter s [facility] WEIGHT 83 kilos [facility] kilos [facility] HEIGHT 167.64 centimeters 167.64 centimeter s [facility] WEIGHT 86 kilos [facility] kilos [facility] HEIGHT 167.64 centimeters 167.64 centimeter s [facility] WEIGHT 84.9 kilos 84.9 kilos [facility] HEIGHT 167.64 centimeters 167.64 centimeter s [facility] WEIGHT 88 kilos 88 kilos [facility] HEIGHT 167.64 centimeters 167.64 centimeter s [facility] WEIGHT 84 kilos 84 kilos [facility] HEIGHT 167.64 centimeters 167.64 centimeter s [facility] WEIGHT 79.4 kilos 79.4 kilos [facility] HEIGHT 167.64 centimeters 167.64 centimeter s [facility] WEIGHT 75.6 kilos 75.6 kilos [facility] HEIGHT 167.64 centimeters 167.64 centimeter s [facility] WEIGHT 75.3 kilos 75.3 kilos [facility] HEIGHT 167.64 centimeters 167.64 centimeter s [facility] WEIGHT 67.7 kilos 67.7 kilos [facility] HEIGHT 167.64 centimeters 167.64 centimeter s [facility] Patient Treatment Plan of Care Planned Activity Planned Date Details Description Data Source (s) Naproxen 500 MG Oral Tablet 07/26/2020 12:00:00 AM [facility] Folic Acid 1 MG Oral Tablet 07/26/2020 12:00:00 AM [facility] Pilocarpine Hydrochloride 5 MG Oral Tablet 07/26/2020 12:00:00 AM E [facility] Hydroxychloroquine Sulfate 200 MG Oral Tablet 07/26/2020 12:00:00 A M [facility] Methotrexate 2.5 MG Oral Tablet 07/26/2020 12:00:00 AM [facility] gabapentin 400 MG Oral Capsule 07/26/2020 12:00:00 AM [facility] Thiamine 100 MG Oral Tablet 10/06/2019 12:00:00 AM [facility] Docusate Sodium 10 MG/ML Oral Suspension 10/05/2019 12:00:00 AM [facility] Metoprolol Tartrate 50 MG Oral Tablet 10/05/2019 12:00:00 AM [facility] Levetiracetam 100 MG/ML Oral Solution 10/05/2019 12:00:00 AM [facility] Bisacodyl 10 MG Rectal Suppository 10/05/2019 12:00:00 AM [facility] gabapentin 100 MG Oral Capsule 10/05/2019 12:00:00 AM [facility] [place] Hydrochloride 5 MG Oral Tablet 08/30/2019 12:00:00 AM [facility] Methotrexate 2.5 MG Oral Tablet 08/30/2019 12:00:00 AM [facility] Hydroxychloroquine Sulfate 200 MG Oral Tablet 06/24/2019 12:00:00 A M [facility] Folic Acid 1 MG Oral Tablet 06/24/2019 12:00:00 AM [facility] gabapentin 400 MG Oral Capsule 06/24/2019 12:00:00 AM [facility] Cyclobenzaprine hydrochloride 5 MG Oral Tablet 09/03/2017 12:00:00 AM [facility] Trazodone Hydrochloride [address] [facility] topiramate [address] [facility] Sucralfate [address] [facility] Hydroxyzine Pamoate [address] [facility] Metoclopramide [address] [facility] Lorazepam 1 MG Oral Tablet [facility] 24 HR Nifedipine 60 MG Extended Release Oral Tablet [facility] olanzapine [address] [facility] Acetaminophen 325 MG / butalbital 50 MG / Caffeine 40 MG Oral Table t [facility] Diphenhydramine Hydrochloride [address] [facility] Ondansetron 4 MG Disintegrating Oral Tablet [facility] Misoprostol 0.[address] [facility] [place] Hydrochloride [address] [facility] gabapentin [address] [facility] Naproxen 500 MG Oral Tablet [facility]
[2020-12-01] MEDS ORDERED: KETOROLAC 30 MG/ML 1ML VIAL IM ONE (05:30)
[2020-12-01] MEDS ORDERED: PERCOCET 5MG/325MG TAB PO ONE (05:30)
[2020-12-01] MEDS ORDERED: ZYPR5TAB2 PO (05:30)
--- OUTSIDE RECORDS SUMMARY | 2020-12-01 06:12 | CCD ---
Author Author [facility] Organization [facility] Address Unknown Phone Unavailable Support Name Relationship Address Phone CONTACT, UNKNOWN Next Of Kin Unknown Sadie [place] [address] Sadie Niño (Cousin/Healt Next Of Kin Unknown U [facility] [place] [facility] [place] [facility] Carmen Tirado Next Of Kin [address] [place] [address] [place] Next Of Kin Unknown Unavailable KATIE NIÑO Next Of Kin Unknown D Next Of Kin Unknown Unavailable Shaniqua George Next Of Kin [address] [place] [address] FIDELIA ROMAN Next Of Kin [address] [place] [address] [place] [address] SADIE NIÑO Next Of Kin Unknown Elaine Arnold Next Of Kin [address] [place] [address] SADIE MATTSON Next Of Kin Unknown SADIE [place] [address] Osiris Ceja Next Of Kin [address] [place] [id number] [place] [address] CELL UE Next Of Kin Unknown Unavailable ALEXANDRO DE ANDA Next Of Kin [place], [place] ALEXANDRO EWING Next Of Kin [place], [place] SRINIVAS MONTALVO Next Of Kin Unknown DISABLED Next Of Kin Unknown Unavailable LES MONTALVO Next Of Kin [phone] [place], [place] [id number] PORFIRIO MEHTA Next Of Kin [id number] [place] [address] FIDELIA ROMAN ECON [address] [place] [address] Unavailable Constantin Niño ECON Unknown NIÑOSADIE LANDIN ECON [address] [place] [address] [phone] Care Team Providers Care Framing 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 Operator Name Role Phone SUSANA K MT [...] Unavailable Ioana Roland MD Unavailable Unavailable Ioana Roladn MD Unavailable Unavailable Ioana Roland MD Unavailable Unavailable Ioana Roland MD Unavailable Unavailable Ioana Roland MD Unavailable Unavailable Ioana Roland MD Unavailable Unavailable Ioana Roland MD Unavailable Unavailable Ioana Roland MD Unavailable Unavailable Ioana Roland MD Unavailable Unavailable Ioana Roland MD Unavailable Unavailable Ioana Roland MD Unavailable Unavailable Ioana Rolnad MD Unavailable Unavailable Ioana Roland MD Unavailable [...] SUAREZ MD Unavailable Unavailable Ian, A Elaine CASE AIDE Unavailable Unavailable Ian, A Elaine CASE AIDE Unavailable Unavailable Ian, A Elaine CASE AIDE Unavailable Unavailable Ian, A Elaine CASE AIDE Unavailable Unavailable Ian, A Elaine CASE AIDE Unavailable Unavailable Ian, A Elaine CASE AIDE Unavailable Unavailable Ian, A Elaine CASE AIDE Unavailable Unavailable Ian, A Elaine CASE AIDE Unavailable Unavailable Ian, A Elaine CASE AIDE Unavailable Unavailable Ian, A Elaine CASE AIDE Unavailable Unavailable Ian, A Elaine CASE AIDE Unavailable Unavailable Ian, A Elaine CASE AIDE Unavailable Unavailable Ian, A Elaine CASE AIDE Unavailable Unavailable Ian, A Elaine CASE AIDE Unavailable Unavailable Ian, A Elaine CASE AIDE Unavailable Unavailable Ian, A Elaine CASE AIDE Unavailable Unavailable Ian, A Elaine CASE AIDE Unavailable Unavailable Ian, A Elaine CASE AIDE Unavailable Unavailable Ian, A Elaine CASE AIDE Unavailable Unavailable Ian, A Elaine CASE AIDE Unavailable Unavailable Ian, A Elaine CASE AIDE Unavailable Unavailable Ian, A Elaine CASE AIDE Unavailable Unavailable Ian, A Elaine CASE AIDE Unavailable Unavailable Ian, A Elaine CASE AIDE Unavailable Unavailable Ian, A Elaine CASE AIDE Unavailable Unavailable Ian, A Elaine CASE AIDE Unavailable Unavailable Ian, A Elaine CASE AIDE Unavailable Unavailable GANGIREDDY, K MT PEARSON Unavailable [...] Unavailable Unavailable Dominic PEARSON, Dylan Yañez Unavailable [phone] SAADA, Benita FAMARY MD Unavailable Unavailable [...] Unavailable Mitchel, Benita Ignacio MD Unavailable Unavailable Mtichel, Benita Ignacio MD Unavailable Unavailable Mitchel, Benita [...] Unavailable Unavailable PANTSHARI MD Unavailable Unavailable SHARI ARMOS MD Unavailable Unavailable SHARI RAMOS MD Unavailable [...] Scott MD Unavailable Unavailable Zack, M Samina DECK CADET Unavailable Unavailable Zack, M Samina DECK CADET Unavailable Unavailable Zack, M Samina DECK CADET Unavailable Unavailable Zack, M Samina DECK CADET Unavailable Unavailable Zack, M Samina DECK CADET Unavailable Unavailable Zack, M Samina DECK CADET Unavailable Unavailable Zack, M Samina DECK CADET Unavailable Unavailable Zack, M Samina DECK CADET Unavailable Unavailable Zack, M Samina DECK CADET Unavailable Unavailable Zack, M Samina DECK CADET Unavailable Unavailable Zack, M Samina DECK CADET Unavailable Unavailable Zack, M Samina DECK CADET Unavailable Unavailable Zack, M Samina DECK CADET Unavailable Unavailable Kostas PRAJAPATI Unavailable Unavailable KATHERINE [...] Unavailable JEAN PAUL, KATHERINE MD Unavailable Unavailable CLAYTON PARSONS MD Unavailable [...] PARSONS MD Unavailable Unavailable Soto, M Yen DECK CADET Unavailable Unavailable Soto, M Yen DECK CADET Unavailable Unavailable Soto, M Yen DECK CADET Unavailable Unavailable Soto, M Yen DECK CADET Unavailable Unavailable Soto, M Yen DECK CADET Unavailable Unavailable Soto, M Yen DECK CADET Unavailable Unavailable Soto, M Yen DECK CADET Unavailable Unavailable Soto, M Yen DECK CADET Unavailable Unavailable Soto, M Yen DECK CADET Unavailable Unavailable Soto, M Yen DECK CADET Unavailable Unavailable Soto, M Yen DECK CADET Unavailable Unavailable Soto, M Yen DECK CADET Unavailable Unavailable Soto, M Yen DECK CADET Unavailable Unavailable Soto, M Yen DECK CADET Unavailable Unavailable Soto, M Yen DECK CADET Unavailable Unavailable Soto, M Yen DECK CADET Unavailable Unavailable Soto, M Yen DECK CADET Unavailable Unavailable Soto, M Yen DECK CADET Unavailable Unavailable Soto, M Yen DECK CADET Unavailable Unavailable Soto, M Yen DECK CADET Unavailable Unavailable Soto, M Yen DECK CADET Unavailable Unavailable Soto, M Yen DECK CADET Unavailable Unavailable Soto, M Yen DECK CADET Unavailable Unavailable Soto, M Yen DECK CADET Unavailable Unavailable Soto, M Yen DECK CADET Unavailable Unavailable Soto, M Yen DECK CADET Unavailable Unavailable Soto, M Yen DECK CADET Unavailable Unavailable Soto, M Yen DECK CADET Unavailable Unavailable Soto, M Yen DECK CADET Unavailable Unavailable Soto, M Yen DECK CADET Unavailable Unavailable Soto, M Yen DECK CADET Unavailable Unavailable Soto, M Yen DECK CADET Unavailable Unavailable Soto, M Yen DECK CADET Unavailable Unavailable Soto, M Yen DECK CADET Unavailable Unavailable Soto, M Yen DECK CADET Unavailable Unavailable Soto, M Yen DECK CADET Unavailable Unavailable Soto, M Yen DECK CADET Unavailable Unavailable Soto, M Yen DECK CADET Unavailable Unavailable Jose Shukla MD Unavailable Unavailable Catalina, Larry Unavailable Unavailable Catalina, Larry Unavailable Unavailable Catalina, Larry Unavailable Unavailable Catalina, Larry Unavailable Unavailable Catalina, Larry Unavailable Unavailable Ian, A Elaine CASE AIDE Unavailable Unavailable Ian, A Elaine CASE AIDE Unavailable Unavailable Ian, A Elaine CASE AIDE Unavailable Unavailable Ian, A Elaine CASE AIDE Unavailable Unavailable Ian, A Elaine CASE AIDE Unavailable Unavailable Ian, A Elaine CASE AIDE Unavailable Unavailable Ian, A Elaine CASE AIDE Unavailable Unavailable Ian, A Elaine CASE AIDE Unavailable Unavailable Ian, A Elaine CASE AIDE Unavailable Unavailable Ian, A Elaine CASE AIDE Unavailable Unavailable Ian, A Elaine CASE AIDE Unavailable Unavailable Ian, A Elaine CASE AIDE Unavailable Unavailable Ian, A Elaine CASE AIDE Unavailable Unavailable Ian, A Elaine CASE AIDE Unavailable Unavailable Ian, A Elaine CASE AIDE Unavailable Unavailable Ian, A Elaine CASE AIDE Unavailable Unavailable Ian, A Elaine CASE AIDE Unavailable Unavailable Ian, A Elaine CASE AIDE Unavailable Unavailable Ian, A Elaine CASE AIDE Unavailable Unavailable Ian, A Elaine CASE AIDE Unavailable Unavailable Ian, A Elaine CASE AIDE Unavailable Unavailable Ian, A Elaine CASE AIDE Unavailable Unavailable Ian, A Elaine CASE AIDE Unavailable Unavailable Ian, A Elaine CASE AIDE Unavailable Unavailable Ian, A Elaine CASE AIDE Unavailable Unavailable Ian, A Elaine CASE AIDE Unavailable Unavailable Ian, A Elaine CASE AIDE Unavailable Unavailable MOCK, L VON DECK CADET Unavailable Unavailable MOCK, L VON DECK CADET Unavailable Unavailable MOCK, L VON DECK CADET Unavailable Unavailable MOCK, L VON DECK CADET Unavailable Unavailable MOCK, L VON DECK CADET Unavailable Unavailable MOCK, L VON DECK CADET Unavailable Unavailable AMIDON, D TRIPP DO Unavailable [...] Unavailable Unavailable Elaine, Wajeeh MD Unavailable Unavailable Leaine, Wajeeh MD Unavailable Unavailable Elaine, Wajeeh MD Unavailable Unavailable Elaine, Wajeeh MD Unavailable Unavailable Elaine, Wajeeh MD Unavailable Unavailable Elaine, Wajeeh MD Unavailable Unavailable Elaine, Wajeeh MD Unavailable Unavailable Elaine, Wajeeh MD Unavailable Unavailable Elaine Sosa CASE AIDE CASE AIDE Unavailable Unavailable Re-disclosure Warning The records that [...] is protected by Article 27-F of the [facility] Public Health law. If you continue you may have access to information: Regarding HIV / AIDS; Provided by facilities licensed or operated by the [facility] Office of Mental Health; or Provided by the [facility] Office for People With Developmental Disabilities. If such information is present, then the following [facility] mandated warning applies: This information has been [...] law may result in a fine or half-way sentence or both. A general authorization for the release of medical or other information is NOT sufficient authorization for further disc losure. Allergies and Adverse Reactions Type Description Substance Reaction Status Data Source(s ) SYSTEMIC NO ALLERGIES ON FILE NO ALLERGIES ON FILE [facility] Drug allergy ESCITALOPRAM OXALATE ESCITALOPRAM OXALATE [facility] oranges oranges [facility] Drug allergy [facility] Drug allergy [facility]ofl[facility]ofl[facility] allergy azithromycin Azithromycin [facility] Drug allergy erythromycin base erythromycin base [facility] Drug allergy cephalexin cephalexin [facility] Drug allergy lisinopril Lisinopril [facility] Drug allergy Latex, Natural Rubber Latex, Natural Rubber [facility] Drug allergy Fish Containing Products Fish Containing Products [facility] Drug allergy Sulfa (Sulfonamide Antibiotics) Sulfa (Sulfonamide Ant ibiotics) [facility] Drug allergy NSAIDS (Non-Steroidal Anti-Inflamma NSAI DS (Non-Steroidal Anti-Inflamma [facility] Miscellaneous allergy Latex Latex [facility] ([facility]) Drug allergy Sulfa Antibiotics Sulfa Antibiotics [facility] ([facility]) Drug allergy Lunesta Lunesta [facility] ([facility]) Drug allergy Omeprazole Omeprazole [facility] ([facility]) Drug allergy Metoclopramide Metoclopramide [facility] ([facility]) Drug allergy Lisinopril Lisinopril [facility] ([facility]) Drug allergy Levofloxacin Levofloxacin [facility] ([facility]) Drug allergy Erythromycin Erythromycin [facility] ([facility]) Drug allergy Cephalexin Cephalexin [facility] ([facility]) Drug allergy Bupropion Bupropion [facility] ([facility]) Drug allergy Azithromycin Azithromycin [facility] ([facility]) To Be Determined To Be Determined PC C ([facility]) Family History Family Member Name Family Member Gender Family Member Status Date o f Status Description Data Source(s) Unknown Condition [facility] Unknown Condition [facility] Unknown Condition [facility] Unknown Condition [facility] Unknown Condition [facility] Encounters Encounter Providers Location Date Indications Data Source(s ) Outpatient Attender: Yen Soto NP 12/26/2020 12:00:00 A M [facility] SPECIMEN Attender: TRIPP NGUYENeferrer: TRIPP MILES DO [id number] 11/21/2020 05:06:00 PM EST - 11/21/2020 11:59:00 PM [facility] Patient discharged. SPECIMEN Attender: TRIPP Mauroerrer: TRIPP MILES DO [id number]-S53 11/14/2020 06:11:00 PM EST - 11/14/2020 11:59:00 PM [facility] Patient discharged. SPECIMEN Attender: TRIPP NGUYENeferrer: TRIPP MILES [id number]-[id number] 11/07/2020 05:16:00 AM EST - 11/07/2020 11:59:00 PM [facility] Patient discharged. SPECIMEN Attender: VON MOCK NPReferrer: VON FIGUEROA DECK CADET 2E-EEH 10/26/2020 10:53:00 AM EST - 10/26/2020 11:59:00 PM [facility] Patient discharged. SPECIMEN Attender: TRIPP Mauroerrer: TRIPP EDY MILES 2E-HL 10/24/2020 05:17:00 PM EST - 10/24/2020 11:59:00 PM [facility] Patient discharged. Outpatient Attender: Bunny Fernandez MD 11/2019 08:25:00 AM EST - 11/15/2020 11:59:00 PM EST [facility] covid Patient discharged. Outpatient Attender: Bunny Fernandez MD 10/09/2020 11:42:0 0 AM EST [facility] covid Outpatient Attender: Bunny Fernandez MD 10/05/2020 12:00:0 0 AM EST [facility] covid Outpatient Attender: Bunny Fernandez MD 09/28/2020 12:00:0 0 AM EST [facility] COVID Outpatient Attender: Bunny Fernandez MD 09/21/2020 02:36:0 0 PM EST [facility] covid Outpatient Attender: Bunny Fernandez MD 09/14/2020 12:00:0 0 AM EDT [facility] covid Outpatient Attender: Bunny Fernandez MD 09/10/2020 11:25:0 0 AM EDT [facility] covid Outpatient Attender: Bunny Fernandez MD 07:00:00 AM EDT - 08/15/2020 11:59:00 PM EDT [facility] Patient discharged. Recurring Patient Referrer: Yen Soto NP 08/02/2020 08: 52:44 AM EDT [facility] Recurring Patient Referrer: Yen Soto NP 08/02/2020 08: 52:18 AM EDT [facility] Outpatient Attender: Yen Soto NP [id number] 07/26/2020 12:0 0:00 AM EDT Other organ or system involvement in systemic lupus erythematosus [facility] Other organ or system involvement in sys temic lupus erythematosus Outpatient Attender: Eron Zhong MDReferrer: Morningstr Res. CC COVID 19 null 07/17/2020 03:21:00 PM EDT resident covid screen /[facility] resident covid screen /[facility] Emergency Attender: Larry Arnold 0 07:50:00 PM EDT - 06/21/2020 12:34:00 AM EDT [facility] Patient discharged. Outpatient Attender: Bunny Fernandez MD 01/2020 12:00:00 AM EDT - 2020 11:59:00 PM EDT [facility] Patient discharged. Outpatient Attender: Bunny Fernandez MD 07:35:00 AM EDT - 06/15/2020 11:59:00 PM EDT [facility] Patient discharged. Inpatient Attender: Bunny Fernandez MD 04:00:00 PM EDT - 10/17/2020 12:00:00 PM EST [facility] ([facility]) Patient discharged. Outpatient Attender: Justin Bone SR 06/07/2020 11:10:00 P M EDT Mh Eval [facility] Mh Eval Outpatient Attender: Brendan Meneses mitter: Brendan Kiser MDConsultant: Brendan Kiser MD 06/07/2020 09:10:00 PM EDT Depression, Suicidal Ideation [facility] Depression, Suicidal Ideation Outpatient Attender: Brendan Meneses mitter: Brendan Kiser MDConsultant: Brendan Kiser MD 06/07/2020 09:10:00 PM EDT Depression, Suicidal Ideation [facility] Depression, Suicidal Ideation Outpatient Attender: Brendan Meneses mitter: Brendan Kiser MDConsultant: Brendan Kiser MD 06/07/2020 09:10:00 PM EDT Depression, Suicidal Ideation [facility] Depression, Suicidal Ideation Inpatient Attender: Brendan Flores tender: Larry ArnoldAdmitter: Brendan Kiser MD 06/07/2020 09:10:00 PM EDT - 06/12/2020 03:20:00 PM EDT Depression, Suicidal Ideation [facility] Depression, Suicidal Ideation Patient discharged. Outpatient Attender: Brendan Meneses mitter: Brendan Kiser MDConsultant: Brendan Kiser MD 06/07/2020 09:10:00 PM EDT Depression, Suicidal Ideation [facility] Depression, Suicidal Ideation Outpatient Attender: Jose Marte ter: Brendan Kiser MDConsultant: Brendan Kiser MD 06/07/2020 09:10:00 PM EDT Depression, Suicidal Ideation [facility] Depression, Suicidal Ideation Outpatient Attender: Jose Marte ter: Brendan Kiser MDConsultant: Brendan Kiser MD 06/07/2020 09:10:00 PM EDT Depression, Suicidal Ideation [facility] Depression, Suicidal Ideation Outpatient Attender: RADHA JIN 05/23/2020 04:33:00 P M EDT [facility] Emergency Attender: Larry Arnold 0 02:21:00 AM EDT - 05/09/2020 08:45:00 AM EDT Pain Managment [facility] Pain Managment Patient discharged. Outpatient Attender: Key Scott MD 04/16/2020 11:00:00 PM EDT Replenishment Analyst [facility] Replenishment Analyst Outpatient Attender: Key Zepeda/ Derrell Wang ology 04/16/2020 01:45:00 PM EDT [facility] ([facility]) Outpatient Attender: Elaine GARCIA FP 04/11/2020 11:0 4:03 AM EDT [facility] Outpatient Attender: Bunny Fernandez MD 07:40:00 AM EDT - 04/15/2020 11:59:00 PM EDT [facility] Patient discharged. Outpatient Attender: Elaine GARCIA FP 04/03/2020 09:0 1:01 AM EDT [facility] Inpatient Attender: Bunny Fernandez MD 03:10:00 PM EDT - 06/07/2020 08:00:00 PM EDT PCC ([facility]) Patient discharged. Outpatient Attender: Tan Meneses mitter: Tan Pulido MDConsultant: Tan Pulido MD 03/28/2020 03:07:00 PM EDT Intractable Headache , R/O COVID [facility] Intractable Headache, R/O COVID Inpatient Attender: Samina Dixon NPSkip tender: Sandee Grullon MDAttender: Tan Pulido MDAttender: Mirtha Henry MDAdmitter: Tan Pulido MD 03/28/2020 02:08:00 PM EDT - 04/02/2020 02:55:00 PM EDT Intractable Headache, R/O COVID [facility] Intractable Headache, R/O COVID Patient discharged. Outpatient Attender: Sandee Meneses mitter: Tan Pulido MDConsultant: Samina Dixon NP 03/28/2020 02:08:00 PM EDT Intractable Headache , R/O COVID [facility] Intractable Headache, R/O COVID Outpatient Attender: Samina Chaney mitter: Tan Pulido MDConsultant: Samina Dixon NP 03/28/2020 02:08:00 PM EDT Intractable Headache , R/O COVID [facility] Intractable Headache, R/O COVID Outpatient Attender: Samina Chaney mitter: Tan Pulido MDConsultant: Samina Dixon NP 03/28/2020 02:08:00 PM EDT Intractable Headache , R/O COVID [facility] Intractable Headache, R/O COVID Outpatient Attender: Samina Chaney mitter: Tanelder Pulido MDConsultant: Samina Dixon NP 03/28/2020 02:08:00 PM EDT Intractable Headache , R/O COVID [facility] Intractable Headache, R/O COVID Outpatient Attender: Bunny Fernandez MD 09/2020 12:00:00 AM EDT - 04/15/2020 11:59:00 PM EDT [facility] Patient discharged. [facility] [address] [address] 03/22/2020 12:00:00 AM EDT eCW1 ([facility]) Outpatient Attender: Bunny Fernandez MD 12:00:00 AM EST - 01/14/2020 11:59:00 PM EST lab [facility] lab Patient discharged. Outpatient Attender: RADHA JIN 12/13/2019 03:40:00 P M [facility] Outpatient Attender: Bunny Fernandez MD 12:00:00 AM EST - 12/16/2019 11:59:00 PM EST [facility] Patient discharged. Outpatient Attender: RADHA JIN 11/14/2019 09:01:14 P M [facility] Outpatient Attender: Bunny Fernandez MD 08:40:00 AM EST - 11/15/2019 11:59:00 PM EST lab [facility] lab Patient discharged. Outpatient Attender: RADHA JIN 11/04/2019 08:03:34 P M [facility] Outpatient Attender: Elaine JIN 10/28/2019 10:0 3:00 AM [facility] Outpatient Attender: Yen Soto NP 10/24/2019 12:00:00 A M [facility] Outpatient Attender: Elaine JIN 10/15/2019 03:1 4:59 PM [facility] Outpatient Attender: Bunny Fernandez MD 06:43:00 AM EST - 10/15/2019 11:59:00 PM EST [facility] Patient discharged. Inpatient Attender: Bunny Fernandez MD 03:10:00 PM EST - 03/28/2020 01:51:00 PM EDT [facility] ([facility]) Patient discharged. Inpatient Attender: VIOLA Triplett DAdmitter: [...] Attender: VIOLA Triplett DAdmitter: KATHERINE REAVES MDConsultant: SYKLAR CUETO MD 10/02/2019 11:59:51 PM EST Lab [...] [facility] Inpatient Attender: Dyllan Cavazos MDAtt live: [place] CRAVENSHERDOREEN MDAttender: KATHERINE REAVES MDAttender: Teodoro Roland MDAttender: SULMA PRAJAPATIAttender: VIOLA SUAREZ MDAttender: Pari Alfaro MDAdmitter: VIOLA SUAREZ MDConsultant: SKYLAR UCETO MD [id number] 09/23/2019 01:50:35 PM EST - 10/05/2019 02:39:00 PM EST [facility] Patient discharged. Outpatient 09/23/2019 10:09:00 AM EST severe ma lnutrition, intubated [facility] severe malnutrition, intubated Inpatient Attender: LJ RODRIGUEZ DOAttender : LJ RODRIGUEZ DOAttender: SHARI RAMOS MDAttender: EMILY PATRICK MDAttender: EMILY PATRICK MDAdmitter: EMILY PATRICK MD ER-ICU 09/08/2019 11:21:00 PM EDT - 09/23/2019 12:[facility] Emergency Attender: JOSUE Harriser: Shira Sosa [facility] EMERGENCY [facility]-ER 09/08/2019 05:20:00 PM EDT - 09/08/2019 10:36:00 PM [facility] Patient discharged. Emergency Attender: MARYA Harriserrer: Elaine Sosa [facility] 08/29/2019 04:30:00 PM EDT - 08/29/2019 06:21:00 PM [facility] Patient discharged. Outpatient Attender: CLAYTON PARSONS MD [facility] 12/03/2016 12:52:0 0 PM EST [facility]. Functional Status Medications Medication Brand Name Start [...] 1 tablet by mouth Two Times Daily [facility] Long-term use of Plaquenil Other systemic lupus erythematosus with other organ involvement Sjogren's syndrome with keratoconjunctiv itis sicca Naproxen 500 MG Oral Tablet Naproxen 500 MG Oral Table t (NAPROSYN) Naproxen 500 MG Oral Tablet (NAPROSYN) 07/26/2020 12:00:00 AM EDT 500 mg Oral active Polyarthralgia Take 1 tablet by mouth Two times daily w ith meals [facility] Polyarthralgia Pilocarpine Hydrochloride 5 MG Oral Tabl et Pilocarpine HCl 5 MG Oral Tablet (SALAGEN) Pilocarpine HCl 5 MG Oral Tablet (SALAGEN) 07/26/2020 12:00: 00 AM EDT 5 mg Oral active High risk medication use Take 1 tablet by mouth Three times daily [facility] High risk medication use Folic Acid 1 MG Oral Tablet Folic Acid 1 MG Oral Table t (FOLVITE) Folic Acid 1 MG Oral Tablet (FOLVITE) 07/26/2020 12:00:00 AM EDT active High risk medication use TAKE TWO TABLETS BY MOUTH @8AM [facility] High risk medication use Methotrexate 2.5 MG Oral Tablet Methotrexate 2.5 MG Oral Tab let 07/26/2020 12:00:00 AM EDT 7.5 mg Oral active Take 3 tablets by mouth every 7 (seven) days [facility] gabapentin 400 MG Oral Capsule Gabapentin 400 MG Oral Capsule (NEURONTIN) Gabapentin 400 MG Oral Capsule (NEURONTIN) 07/26/2020 12:00:00 AM EDT 400 mg Oral active Take 1 capsule by mo uth Three times daily [facility] Doxycycline Monohydrate 100 MG Oral Tablet Doxycycline Monoh ydrate 04/29/2020 12:00:00 AM EDT ORAL active M J[facility] ([employer] [place]) Saccharomyces boulardii 250 MG Oral Capsule Saccharomy bjorn Boulardii Saccharomyces Boulardii 04/02/2020 12:17:03 PM EDT CAPSULE 250 MG ORAL active [facility] Saccharomyces boulardii 250 MG Oral Capsule Saccharomy bjorn Boulardii Saccharomyces Boulardii 04/02/2020 12:17:03 PM EDT CAPSULE 250 MG ORAL active [facility] Saccharomyces boulardii 250 MG Oral Capsule Saccharomy bjorn Boulardii Saccharomyces Boulardii 04/02/2020 12:17:03 PM EDT CAPSULE 250 MG ORAL active [facility] Acetaminophen 325 MG / Hydrocodone Enrike trate 5 MG Oral Tablet Hydrocodone-Acetaminophen Hydrocodone-Acetaminophen 04/02/2020 12:17:03 PM EDT TABLET 1 TAB ORAL active [facility] Amoxicillin 875 MG / Clavulanate 125 MG Oral Tablet Am oxicillin-Pot Clavulanate Amoxicillin-Pot Clavulanate 04/02/2020 12:17:03 PM EDT TABLET 1 TAB ORAL active [facility] Acetaminophen 325 MG / Hydrocodone Enrike trate 5 MG Oral Tablet Hydrocodone-Acetaminophen Hydrocodone-Acetaminophen 04/02/2020 12:17:03 PM EDT TABLET 1 TAB ORAL active [facility] Amoxicillin 875 MG / Clavulanate 125 MG Oral Tablet Am oxicillin-Pot Clavulanate Amoxicillin-Pot Clavulanate 04/02/2020 12:17:03 PM EDT TABLET 1 TAB ORAL active [facility] Saccharomyces boulardii 250 MG Oral Capsule Saccharomy bjorn Boulardii Saccharomyces Boulardii 04/02/2020 12:17:03 PM EDT CAPSULE 250 MG ORAL active [facility] Acetaminophen 325 MG / Hydrocodone Enrike trate 5 MG Oral Tablet Hydrocodone-Acetaminophen Hydrocodone-Acetaminophen 04/02/2020 12:17:03 PM EDT TABLET 1 TAB ORAL active [facility] Amoxicillin 875 MG / Clavulanate 125 MG Oral Tablet Am oxicillin-Pot Clavulanate Amoxicillin-Pot Clavulanate 04/02/2020 12:17:03 PM EDT TABLET 1 TAB ORAL active [facility] Amoxicillin 875 MG / Clavulanate 125 MG Oral Tablet Am oxicillin-Pot Clavulanate Amoxicillin-Pot Clavulanate 04/02/2020 12:17:03 PM EDT TABLET 1 TAB ORAL active [facility] Acetaminophen 325 MG / Hydrocodone Enrike trate 5 MG Oral Tablet Hydrocodone-Acetaminophen Hydrocodone-Acetaminophen 04/02/2020 12:17:03 PM EDT TABLET 1 TAB ORAL active [facility] pantoprazole 40 MG Delayed Release Oral Tablet [Proton ix] Pantoprazole Pantoprazole 03/28/2020 10:02:59 AM EDT UNASSIGNED 40 MG ORAL activ e [facility] 120 ACTUAT Budesonide 0.16 MG/ACTUAT / f ormoterol fumarate 0.0045 MG/ACTUAT Metered Dose Inhaler Budesonide-Formoterol Budesonide-Formoterol 03/28/2020 10:02:59 AM EDT UNASSIGNED 2 PUFF INHALATION [facility] Kwgpaopvmdql-Dnh-Ezng-Fa-Vit K 03/28/2020 10:02:59 AM EDT TABLET 1 TAB ORAL [facility] gabap[facility] 100 MG Oral Capsule [Neurontin] Gabapentin Gabape ntin 03/28/2020 10:02:59 AM EDT CAPSULE 200 MG ORAL active [facility] Methotrexate 7.5 MG Oral Tablet Methotrexate Sodium Methotre xate Sodium 03/28/2020 10:02:59 AM EDT TABLET 7.5 MG ORAL active [facility] Bisacodyl 10 MG Rectal Suppository Bisacodyl 03/28/2020 10 :02:59 AM EDT UNASSIGNED 10 MG RECTAL active [facility] Sumatriptan 50 MG Oral Tablet [Imitrex] Sumatriptan Lind ccinate Sumatriptan Succinate 03/28/2020 10:02:59 AM EDT TABLET 0 Route active [facility] duloxetine 60 MG Delayed Release Oral Capsule Duloxetine Dul oxetine 03/28/2020 10:02:59 AM EDT UNASSIGNED 60 MG ORAL active [facility] Eyncboulnyei-Kbe-Ysti-Fa-Vit K 03/28/2020 10:02:59 AM EDT TABLET 1 TAB ORAL active [facility] sennosides, SHELTER 8.6 MG Oral Tablet Sennosides Sennosides 03/28/2020 10:02:59 AM EDT TABLET 17.2 MG [facility] Budesonide 0.16 MG/ACTUAT / f ormoterol fumarate 0.0045 MG/ACTUAT Metered Dose Inhaler Budesonide-Formoterol Budesonide-Formoterol 03/28/2020 10:02:59 AM EDT UNASSIGNED 2 PUFF INHALATION active [facility] Levetiracetam 500 MG Oral Tablet [Keppra] Levetiracetam 03/28/2020 10:02:59 AM EDT TABLET 500 MG ORAL active [facility] Hydroxychloroquine Sulfate 200 MG Oral Tablet Hydroxychloroq uine 03/28/2020 10:02:59 AM EDT TABLET 200 MG ORAL active [facility] buspirone hydrochloride 10 MG Oral Tablet Buspirone Buspiron e 03/28/2020 10:02:59 AM EDT TABLET 10 MG ORAL active [facility] Hydroxychloroquine Sulfate 200 MG Oral Tablet Hydroxychloroq uine 03/28/2020 10:02:59 AM EDT TABLET 200 MG ORAL active [facility] Docusate Sodium 100 MG Oral Capsule Docusate Sodium 03/28/2020 1 0:02:59 AM EDT CAPSULE 100 MG ORAL active [facility] Calcium Carbonate 1250 MG / Cholecalcife rol 0.01 MG Oral Tablet Calcium Carbonate-Vitamin D3 Calcium Carbonate-Vitamin D3 03/28/2020 10:02:59 AM EDT TABLET 1 TAB ORAL active [facility] Calcium Carbonate 1250 MG / Cholecalcife rol 0.01 MG Oral Tablet Calcium Carbonate-Vitamin D3 Calcium Carbonate-Vitamin D3 03/28/2020 10:02:59 AM EDT TABLET 1 TAB ORAL active [facility] Sumatriptan 50 MG Oral Tablet [Imitrex] Sumatriptan Lind ccinate Sumatriptan Succinate 03/28/2020 10:02:59 AM EDT TABLET 0 Route active [facility] Levetiracetam 500 MG Oral Tablet [Keppra] Levetiracetam 03/28/2020 10:02:59 AM EDT TABLET 500 MG ORAL active [facility] Trazodone Hydrochloride 50 MG Oral Tablet Trazodone 2019 10:02:59 AM EDT TABLET 50 MG ORAL active [facility] duloxetine 60 MG Delayed Release Oral Capsule Duloxetine Dul oxetine 03/28/2020 10:02:59 AM EDT UNASSIGNED 60 MG ORAL active [facility] Escitalopram 5 MG Oral Tablet Escitalopram Oxalate Escitalop [place] Oxalate 03/28/2020 10:02:59 AM EDT TABLET 5 MG ORAL active [facility] sennosides, SHELTER 8.6 MG Oral Tablet Sennosides Sennosides 03/28/2020 10:02:59 AM EDT TABLET 17.2 MG ORAL [facility] Docus[facility] Sodium 100 MG Oral Capsule Docusate Sodium 03/28/2020 1 0:02:59 AM EDT CAPSULE 100 MG ORAL active [facility] Hydroxychloroquine Sulfate 200 MG Oral Tablet Hydroxychloroq uine 03/28/2020 10:02:59 AM EDT TABLET 200 MG ORAL active [facility] Docusate Sodium 100 MG Oral Capsule Docusate Sodium 03/28/2020 1 0:02:59 AM EDT CAPSULE 100 MG ORAL active [facility] Sumatriptan 50 MG Oral Tablet [Imitrex] Sumatriptan Lind ccinate Sumatriptan Succinate 03/28/2020 10:02:59 AM EDT TABLET 0 Route active [facility] tiotropium 0.018 MG/ACTUAT Inhalant Powder Tiotropium Luning Tiotropium Luning 03/28/2020 10:02:59 AM EDT UNASSIGNED 1 CAP INHALATION active [facility] Bisacodyl 10 MG Rectal Suppository Bisacodyl 03/28/2020 10 :02:59 AM EDT UNASSIGNED 10 MG RECTAL active [facility] buspirone hydrochloride 10 MG Oral Tablet Buspirone Buspiron e 03/28/2020 10:02:59 AM EDT TABLET 10 MG ORAL active [facility] Trazodone Hydrochloride 50 MG Oral Tablet Trazodone 2019 10:02:59 AM EDT TABLET 50 MG ORAL active [facility] duloxetine 60 MG Delayed Release Oral Capsule Duloxetine Dul oxetine 03/28/2020 10:02:59 AM EDT UNASSIGNED 60 MG ORAL active [facility] Trazodone Hydrochloride 50 MG Oral Tablet Trazodone 2019 10:02:59 AM EDT TABLET 50 MG ORAL active [facility] Escitalopram 5 MG Oral Tablet Escitalopram Oxalate Escitalop [place] Oxalate 03/28/2020 10:02:59 AM EDT TABLET 5 MG ORAL active [facility] Metoprolol Tartrate 50 MG Oral Tablet Metoprolol Tartrate 10:02:59 AM EDT TABLET 50 MG [facility] tiotrop[facility] 0.018 MG/ACTUAT Inhalant Powder Tiotropium [place] Tiotropium Luning 03/28/2020 10:02:59 AM EDT UNASSIGNED 1 CAP INHALATION active [facility] buspirone hydrochloride 10 MG Oral Tablet Buspirone Buspiron e 03/28/2020 10:02:59 AM EDT TABLET 10 MG [facility] Folic Acid 1 MG Oral Tablet Folic Acid 03/28/2020 10:02:59 AM EDT TAB LET 1 MG [facility] Bis[facility] MG Rectal Suppository Bisacodyl 03/28/2020 10 :02:59 AM EDT UNASSIGNED 10 MG RECTAL active [facility] Docusate Sodium 100 MG Oral Capsule Docusate Sodium 03/28/2020 1 0:02:59 AM EDT CAPSULE 100 MG ORAL active [facility] Folic Acid 1 MG Oral Tablet Folic Acid 03/28/2020 10:02:59 AM EDT TAB LET 1 MG [facility] Levetiracetam 500 MG Oral Tablet [Keppra] Levetiracetam 03/28/2020 10:02:59 AM EDT TABLET 500 MG ORAL active [facility] Sumatriptan 50 MG Oral Tablet [Imitrex] Sumatriptan Lind ccinate Sumatriptan Succinate 03/28/2020 10:02:59 AM EDT TABLET 0 Route active [facility] Hydroxychloroquine Sulfate 200 MG Oral Tablet Hydroxychloroq uine 03/28/2020 10:02:59 AM EDT TABLET 200 MG ORAL [facility] Docusate Sodium 100 MG Oral Capsule Docusate Sodium 03/28/2020 1 0:02:59 AM EDT CAPSULE 100 MG ORAL active [facility] Bisacodyl 10 MG Rectal Suppository Bisacodyl 03/28/2020 10 :02:59 AM EDT UNASSIGNED 10 MG RECTAL active [facility] Metoprolol Tartrate 50 MG Oral Tablet Metoprolol Tartrate 10:02:59 AM EDT TABLET 50 MG ORAL active [facility] 120 ACTUAT Budesonide 0.16 MG/ACTUAT / f ormoterol fumarate 0.0045 MG/ACTUAT Metered Dose Inhaler Budesonide-Formoterol Budesonide-Formoterol 03/28/2020 10:02:59 AM EDT UNASSIGNED 2 PUFF INHALATION active [facility] Sorbitol 700 MG/ML Rectal Solution Sorbitol 03/28/2020 10:02:59 AM EDT SOLUTION 30 ML ORAL active [facility] Sumatriptan 50 MG Oral Tablet [Imitrex] Sumatriptan Lind ccinate Sumatriptan Succinate 03/28/2020 10:02:59 AM EDT TABLET 0 Route active [facility] Calcium Carbonate 1250 MG / Cholecalcife rol 0.01 MG Oral Tablet Calcium Carbonate-Vitamin D3 Calcium Carbonate-Vitamin D3 03/28/2020 10:02:59 AM EDT TABLET 1 TAB ORAL active [facility] pantoprazole 40 MG Delayed Release Oral Tablet [Proton ix] Pantoprazole Pantoprazole 03/28/2020 10:02:59 AM EDT UNASSIGNED 40 MG ORAL activ e [facility] Fpumzzemdxnf-Mge-Kewm-Fa-Vit K 03/28/2020 10:02:59 AM EDT TABLET 1 [facility] Escital[facility] 5 MG Oral Tablet Escitalopram Oxalate Escitalop [place] Oxalate 03/28/2020 10:02:59 AM EDT TABLET 5 MG ORAL active [facility] gabapentin 100 MG Oral Capsule [Neurontin] Gabapentin Gabape ntin 03/28/2020 10:02:59 AM EDT CAPSULE 200 MG ORAL active [facility] sennosides, SHELTER 8.6 MG Oral Tablet Sennosides Sennosides 03/28/2020 10:02:59 AM EDT TABLET 17.2 MG ORAL active [facility] duloxetine 60 MG Delayed Release Oral Capsule Duloxetine Dul oxetine 03/28/2020 10:02:59 AM EDT UNASSIGNED 60 MG ORAL active [facility] sennosides, SHELTER 8.6 MG Oral Tablet Sennosides Sennosides 03/28/2020 10:02:59 AM EDT TABLET 17.2 MG ORAL active [facility] gabapentin 100 MG Oral Capsule [Neurontin] Gabapentin Gabape ntin 03/28/2020 10:02:59 AM EDT CAPSULE 200 MG ORAL active [facility] Levetiracetam 500 MG Oral Tablet [Keppra] Levetiracetam 03/28/2020 10:02:59 AM EDT TABLET 500 MG ORAL active [facility] Trazodone Hydrochloride 50 MG Oral Tablet Trazodone 2019 10:02:59 AM EDT TABLET 50 MG ORAL active [facility] tiotropium 0.018 MG/ACTUAT Inhalant Powder Tiotropium [place] Tiotropium Luning 03/28/2020 10:02:59 AM EDT UNASSIGNED 1 CAP INHALATION active [facility] Calcium Carbonate 1250 MG / Cholecalcife rol 0.01 MG Oral Tablet Calcium Carbonate-Vitamin D3 Calcium Carbonate-Vitamin D3 03/28/2020 10:02:59 AM EDT TABLET 1 TAB ORAL active [facility] duloxetine 60 MG Delayed Release Oral Capsule Duloxetine Dul oxetine 03/28/2020 10:02:59 AM EDT UNASSIGNED 60 MG ORAL active [facility] Trazodone Hydrochloride 50 MG Oral Tablet Trazodone 2019 10:02:59 AM EDT TABLET 50 MG ORAL active [facility] 120 ACTUAT Budesonide 0.16 MG/ACTUAT / f ormoterol fumarate 0.0045 MG/ACTUAT Metered Dose Inhaler Budesonide-Formoterol Budesonide-Formoterol 03/28/2020 10:02:59 AM EDT UNASSIGNED 2 PUFF INHALATION active [facility] Thiamine 100 MG Oral Tablet Thiamine Hcl (Vitamin B1) Thiami ne Hcl (Vitamin B1) 03/28/2020 10:02:59 AM EDT TABLET 100 MG ORAL active [facility] Sorbitol 700 MG/ML Rectal Solution Sorbitol 03/28/2020 10:02:59 AM EDT SOLUTION 30 ML ORAL active [facility] pantoprazole 40 MG Delayed Release Oral Tablet [Proton ix] Pantoprazole Pantoprazole 03/28/2020 10:02:59 AM EDT UNASSIGNED 40 MG ORAL activ e [facility] tiotropium 0.018 MG/ACTUAT Inhalant Powder Tiotropium [place] Tiotropium Luning 03/28/2020 10:02:59 AM EDT UNASSIGNED 1 CAP INHALATION active [facility] Methotrexate 7.5 MG Oral Tablet Methotrexate Sodium Methotre xate Sodium 03/28/2020 10:02:59 AM EDT TABLET 7.5 MG ORAL active [facility] Metoprolol Tartrate 50 MG Oral Tablet Metoprolol Tartrate 10:02:59 AM EDT TABLET 50 MG ORAL active [facility] tiotropium 0.018 MG/ACTUAT Inhalant Powder Tiotropium [place] Tiotropium [place]uning 03/28/2020 10:02:59 AM EDT UNASSIGNED 1 CAP INHALATION active [facility] Folic Acid 1 MG Oral Tablet Folic Acid 03/28/2020 10:02:59 AM EDT TAB LET 1 [facility] Th[facility] MG Oral Tablet Thiamine Hcl (Vitamin B1) Thiami ne Hcl (Vitamin B1) 03/28/2020 10:02:59 AM EDT TABLET 100 MG ORAL active [facility] Methotrexate 7.5 MG Oral Tablet Methotrexate Sodium Methotre xate Sodium 03/28/2020 10:02:59 AM EDT TABLET 7.5 MG ORAL active [facility] buspirone hydrochloride 10 MG Oral Tablet Buspirone Buspiron e 03/28/2020 10:02:59 AM EDT TABLET 10 MG ORAL active [facility] Thiamine 100 MG Oral Tablet Thiamine Hcl (Vitamin B1) Thiami ne Hcl (Vitamin B1) 03/28/2020 10:02:59 AM EDT TABLET 100 MG ORAL active [facility] Sorbitol 700 MG/ML Rectal Solution Sorbitol 03/28/2020 10:02:59 AM EDT SOLUTION 30 ML ORAL active [facility] buspirone hydrochloride 10 MG Oral Tablet Buspirone Buspiron e 03/28/2020 10:02:59 AM EDT TABLET 10 MG ORAL active [facility] Thiamine 100 MG Oral Tablet Thiamine Hcl (Vitamin B1) Thiami ne Hcl (Vitamin B1) 03/28/2020 10:02:59 AM EDT TABLET 100 MG ORAL active [facility] Escitalopram 5 MG Oral Tablet Escitalopram Oxalate Escitalop [place] Oxalate 03/28/2020 10:02:59 AM EDT TABLET 5 MG ORAL active [facility] Folic Acid 1 MG Oral Tablet Folic Acid 03/28/2020 10:02:59 AM EDT TAB LET 1 MG [facility] Folic Acid 1 MG Oral Tablet Folic Acid 03/28/2020 10:02:59 AM EDT TAB LET 1 MG ORAL active [facility] pantoprazole 40 MG Delayed Release Oral Tablet [Proton ix] Pantoprazole Pantoprazole 03/28/2020 10:02:59 AM EDT UNASSIGNED 40 MG ORAL activ e [facility] gabapentin 100 MG Oral Capsule [Neurontin] Gabapentin Gabape ntin 03/28/2020 10:02:59 AM EDT CAPSULE 200 MG ORAL active [facility] Sorbitol 700 MG/ML Rectal Solution Sorbitol 03/28/2020 10:02:59 AM EDT SOLUTION 30 ML ORAL active [facility] Xdbszbizvjer-Bxp-Cdoa-Fa-Vit K 03/28/2020 10:02:59 AM EDT TABLET 1 TAB ORAL active [facility] 120 ACTUAT Budesonide 0.16 MG/ACTUAT / f ormoterol fumarate 0.0045 MG/ACTUAT Metered Dose Inhaler Budesonide-Formoterol Budesonide-Formoterol 03/28/2020 10:02:59 AM EDT UNASSIGNED 2 PUFF INHALATION active [facility] gabapentin 100 MG Oral Capsule [Neurontin] Gabapentin Gabape ntin 03/28/2020 10:02:59 AM EDT CAPSULE 200 MG ORAL active [facility] Uhzyriwyoruq-Tuu-Gspg-Fa-Vit K 03/28/2020 10:02:59 AM EDT TABLET 1 TAB ORAL active [facility] Methotrexate 7.5 MG Oral Tablet Methotrexate Sodium Methotre xate Sodium 03/28/2020 10:02:59 AM EDT TABLET 7.5 MG ORAL active [facility] Metoprolol Tartrate 50 MG Oral Tablet Metoprolol Tartrate 10:02:59 AM EDT TABLET 50 MG ORAL active [facility] Sorbitol 700 MG/ML Rectal Solution Sorbitol 03/28/2020 10:02:59 AM EDT SOLUTION 30 ML ORAL active [facility] sennosides, SHELTER 8.6 MG Oral Tablet Sennosides Sennosides 03/28/2020 10:02:59 AM EDT TABLET 17.2 MG ORAL active [facility] Methotrexate 7.5 MG Oral Tablet Methotrexate Sodium Methotre xate Sodium 03/28/2020 10:02:59 AM EDT TABLET 7.5 MG ORAL active [facility] Escitalopram 5 MG Oral Tablet Escitalopram Oxalate Escitalop [place] Oxalate 03/28/2020 10:02:59 AM EDT TABLET 5 [facility] pant[facility] 40 MG Delayed Release Oral Tablet [Proton ix] Pantoprazole Pantoprazole 03/28/2020 10:02:59 AM EDT UNASSIGNED 40 MG ORAL activ e [facility] Levetiracetam 500 MG Oral Tablet [Keppra] Levetiracetam 03/28/2020 10:02:59 AM EDT TABLET 500 MG ORAL active [facility] Hydroxychloroquine Sulfate 200 MG Oral Tablet Hydroxychloroq uine 03/28/2020 10:02:59 AM EDT TABLET 200 MG ORAL active [facility] Calcium Carbonate 1250 MG / Cholecalcife rol 0.01 MG Oral Tablet Calcium Carbonate-Vitamin D3 Calcium Carbonate-Vitamin D3 03/28/2020 10:02:59 AM EDT TABLET 1 TAB ORAL active [facility] Metoprolol Tartrate 50 MG Oral Tablet Metoprolol Tartrate 10:02:59 AM EDT TABLET 50 MG [facility] Bisacodyl 10 MG Rectal Suppository Bisacodyl 03/28/2020 10 :02:59 AM EDT UNASSIGNED 10 MG RECTAL active [facility] Thiamine 100 MG Oral Tablet Thiamine Hcl (Vitamin B1) Thiami ne Hcl (Vitamin B1) 03/28/2020 10:02:59 AM EDT TABLET 100 MG ORAL active [facility] Baclofen 5 MG Oral Tablet Baclofen 03/28/2020 10:01:16 AM EDT TABLET 5 MG ORAL active [facility] Baclofen 5 MG Oral Tablet Baclofen 03/28/2020 10:01:16 AM EDT TABLET 5 MG ORAL active [facility] Baclofen 5 MG Oral Tablet Baclofen 03/28/2020 10:01:16 AM EDT TABLET 5 MG ORAL active [facility] Baclofen 5 MG Oral Tablet Baclofen 03/28/2020 10:01:16 AM EDT TABLET 5 MG ORAL active [facility] Baclofen 5 MG Oral Tablet Baclofen 03/28/2020 10:01:16 AM EDT TABLET 5 MG ORAL active [facility] Albuterol Sulfate 03/28/2020 09:56:32 AM EDT UNASSIGNED 2 PUFF INHALATION active [facility] Albuterol Sulfate 03/28/2020 09:56:32 AM EDT UNASSIGNED 2 PUFF INHALATION active [facility] Albuterol Sulfate 03/28/2020 09:56:32 AM EDT UNASSIGNED 2 PUFF INHALATION active [facility] Albuterol Sulfate 03/28/2020 09:56:32 AM EDT UNASSIGNED 2 PUFF INHALATION active [facility] Albuterol Sulfate 03/28/2020 09:56:32 AM EDT UNASSIGNED 2 PUFF INHALATION active [facility] Acetaminophen 325 MG Oral Tablet Acetaminophen 03/28/2020 09:5 0:19 AM EDT TABLET 325 MG ORAL completed [facility] Acetaminophen 325 MG Oral Tablet Acetaminophen 03/28/2020 09:5 0:19 AM EDT TABLET 325 MG ORAL completed [facility] Acetaminophen 325 MG Oral Tablet Acetaminophen 03/28/2020 09:5 0:19 AM EDT TABLET 325 MG ORAL completed [facility] Acetaminophen 325 MG Oral Tablet Acetaminophen 03/28/2020 09:5 0:19 AM EDT TABLET 325 MG ORAL completed [facility] Acetaminophen 325 MG Oral Tablet Acetaminophen 03/28/2020 09:5 0:19 AM EDT TABLET 325 MG ORAL completed [facility] Acetaminophen 325 MG Oral Tablet [Tylenol] Acetaminophen 03/28/2020 09:42:28 AM EDT TABLET 650 MG ORAL active [facility] Acetaminophen 325 MG Oral Tablet [Tylenol] Acetaminophen 03/28/2020 09:42:28 AM EDT TABLET 650 MG ORAL active [facility] Acetaminophen 325 MG Oral Tablet [Tylenol] Acetaminophen 03/28/2020 09:42:28 AM EDT TABLET 650 MG ORAL active [facility] Acetaminophen 325 MG Oral Tablet [Tylenol] Acetaminophen 03/28/2020 09:42:28 AM EDT TABLET 650 MG ORAL active [facility] Acetaminophen 325 MG Oral Tablet [Tylenol] Acetaminophen 03/28/2020 09:42:28 AM EDT TABLET 650 MG [facility]AL [facility] Thiamine 100 MG Oral Tablet thiamine 100 MG tablet thiamine 100 MG tablet 10/06/2019 12:00:00 AM EST 100 mg Oral active Take 1 tablet (100 mg total) by mouth daily [facility] Levetiracetam 100 MG/ML Oral Solution le vETIRAcetam (KEPPRA) 100 MG/ML solution 500 mg levETIRAcetam (KEPPRA) 100 MG/ML solution 500 mg 10/05 12:00:00 AM EST 500 mg Oral active 500 mg, Oral, 2 times daily, First dose on Thu10/05/19 at 0000 [facility] Medication administered onsite Docusate Sodium 10 MG/ML Oral Suspension docusate (COL REAGAN) 50 MG/5ML liquid docusate (COLACE) 50 MG/5ML liquid 10/05/2019 12:00:00 AM EST 100 mg active 10 mL (100 mg total) by Per G Tu be route 2 (two) times a day [facility] Metoprolol Tartrate 50 MG Oral Tablet me toprolol tartrate (LOPRESSOR) 50 MG tablet metoprolol tartrate (LOPRESSOR) 50 MG tablet 10/05/2019 12:0 0:00 AM EST 50 mg Oral active Take 1 tablet (5 0 mg total) by mouth 2 (two) times a day [facility] Levetiracetam 100 MG/ML Oral Solution levETIRAcetam (K EPPRA) 100 MG/ML solution levETIRAcetam (KEPPRA) 100 MG/ML solution 10/05/2019 12:00:00 AM EST 500 mg Oral active Take 5 mL (500 mg to forest) by mouth 2 (two) times a day [facility] Bisacodyl 10 MG Rectal Suppository bisacodyl (DULCOLAX ) 10 MG suppository bisacodyl (DULCOLAX) 10 MG suppository 10/05/2019 12:00:00 AM EST 10 mg Rectal active Insert 1 suppo sitory (10 mg total) into the rectum daily as needed [facility] gabapentin 100 MG Oral Capsule gabapentin (NEURONTIN) 100 MG capsule gabapentin (NEURONTIN) 100 MG capsule 10/05/2019 12:00:00 AM EST 200 mg Oral active Take 2 capsules (200 mg total) by mouth 3 (three) times a day [facility] Metoprolol Tartrate 50 MG Oral Tablet me toprolol tartrate (LOPRESSOR) tablet 50 mg metoprolol tartrate (LOPRESSOR) tablet 50 mg 10/02/2019 10:00:00 AM EST 50 mg active 50 mg, Per NG tube, 2 times daily, First dose on Thu10/02/19 at 1000 [facility] Medication administered onsite Thiamine 100 MG Oral Tablet thiamine tablet 100 mg thiamine tablet 100 mg 10/02/2019 09:00:00 AM EST 100 mg Oral active 100 mg, Oral, Daily, First dose on Thu10/02/19 at 0900 [facility] Medication administered onsite dextrose 10 % infusion [id number] 10/01/2019 10:27:43 AM EST Intravenous aborted 1-150 mL/hr, In travenous, at 1-150 mL/hr, Continuous PRN, For interruption of enteral feeding, Starting 10/01/19 at 1027
Nutrition Interrupted Orders1. Notify provider and start D10W at tube feeding infusion rate2. Check bedside blood glucose every hour for three hours once [id number] begins:a. If any glucose is under 70, [...] to Provider for insulin/bedside blood glucose/IV orders
[facility] Medication administered onsite Metoprolol Tartrate 1 MG/ML Injectable S olution metoprolol tartrate (LOPRESSOR) injection 5 mg metoprolol tartrate (LOPRESSOR) injection 5 mg 019 12:00:00 PM EST 5 mg Intravenous aborted 5 mg, Intravenous, Every 6 hours (scheduled), First dose on Thu09/30/19 at 1200
infuse over 1 hour via infusion pump.Mix in 100 mLs normal saline for IVMB on non-ICU unitsHold for HR <80bpm
[facility] Medication administered onsite dextrose 5 % infusion [id number] 09/30/2019 11:00:00 AM EST Intravenous aborted at 75 mL/hr, Int ravenous, Continuous, Starting Thu09/30/19 at 1100 [facility] Medication administered onsite levETIRAcetam (KEPPRA) 500 mg in sodium chloride (NS) 0.9 % 100 mL IVPB pigtail 09/23/2019 09:00:00 PM EST 500 mg Intravenous aborte d 500 mg, Intravenous, Administer over 15 Minutes, Every 12 hours (relative), First dose on Thu09/23/19 at 2100 [facility] Medication administered onsite olanzapine 20 MG Oral Tablet [Zyprexa] Zyprexa 08/31/2019 12:0 0:00 AM EDT 20 mg by mouth completed [id number] Zyprexa by mouth [id number] 08/31/2019 10/30/2019 at bedtime 30 20 mg tablet [id number] Corrine Solomon [id number] [facility] Methotrexate 2.5 MG Oral Tablet methotrexate 2.5 MG ta blet methotrexate 2.5 MG tablet 08/30/2019 12:00:00 AM EDT aborted TAKE THREE TABLETS BY MOUTH Every Thursday @8AM [facility] Pilocarpine Hydrochloride 5 MG Oral Tablet pilocarpine (SALAGEN) 5 MG tablet pilocarpine (SALAGEN) 5 MG tablet 08/30/2019 12:00:00 AM EDT aborted High risk medication use TAKE ONE TABLET BY MOUTH @8A M and TAKE ONE TABLET @12PM and TAKE ONE TABLET @8PM [facility] High risk medication use Folic Acid 1 MG Oral Tablet folic acid (FOLVITE) 1 MG tablet folic acid (FOLVITE) 1 MG tablet 06/24/2019 12:00:00 AM EDT aborted High risk medication use TAKE TWO TABLETS BY MOUTH @8AM [facility] High risk medication use gabapentin 400 MG Oral Capsule gabapentin (NEURONTIN) 400 MG capsule gabapentin (NEURONTIN) 400 MG capsule 06/24/2019 12:00:00 AM EDT 400 mg Oral aborted Take 1 capsule by mouth Three times [facility] Hydroxychloroquine Sulfate 200 MG Oral T ablet hydroxychloroquine (PLAQUENIL) 200 MG tablet hydroxychloroquine (PLAQUENIL) 200 MG tablet 08/09/201 9 12:00:00 AM EDT 200 mg Oral aborted Long-term use of PlaquenilOther systemic lupus erythematosus with other organ involvementSjogren's syndrome with keratoconjunctivitis sicca Take 1 tablet by mouth Two Times Daily [facility] Long-term use of Plaquenil Other systemic lupus erythematosus with other organ involvement Sjogren's syndrome with keratoconjunctiv itis sicca Cyclobenzaprine hydrochloride 5 MG Oral Tablet cyclobenzaprine (FLEXERIL) 5 MG tablet cyclobenzaprine (FLEXERIL) 5 MG tablet 09/03/2017 12:00:00 AM EDT 5 mg Oral aborted Take 5 mg by m outh 3 (three) times a day as needed for muscle spasms [facility] Sucralfate 1000 MG Oral Tablet sucralfate (CARAFATE) 1 g tablet sucralfate (CARAFATE) 1 g tablet 1 g Oral aborted Take 1 g by mouth 4 (four) times a day [facility] Trazodone Hydrochloride 100 MG Oral Tablet traZODone ( DESYREL) 100 MG tablet traZODone (DESYREL) 100 MG tablet 200 mg Oral abor teresa Take 200 mg by mouth nightly [facility] topiramate 100 MG Oral Tablet topiramate (TOPAMAX) 100 MG tablet topiramate (TOPAMAX) 100 MG tablet 150 mg Oral aborted Take 150 mg by mouth 2 (two) times a day [facility] Metoclopramide 10 MG Oral Tablet metoclopramide (JOSE ROBERTO N) 10 MG tablet metoclopramide (REGLAN) 10 MG tablet 10 mg Oral a borted Take 10 mg by mouth 3 (three) times a day [facility] Lorazepam 1 MG Oral Tablet LORazepam (ATIVAN) 1 MG tab let LORazepam (ATIVAN) 1 MG tablet 1.5 mg Oral aborted Take 1.5 mg b y mouth nightly [facility] Acetaminophen 325 MG / butalbital 50 MG / Caffeine 40 MG Oral Tablet tgzhgzthhs-jypmolboiuqwi-xhcuqhwz (FIORICET, ESGIC) 50-325-40 MG per tablet tiwdmtjurf-ahrnqzjqhqzlm-jhwpzgwr (FIORICET, ESGIC) 50-325-40 MG per tablet Oral aborted Take 1-2 t ablets by mouth every 8 (eight) hours as needed for pain or headaches [facility] olanzapine 20 MG Oral Tablet OLANZapine (ZYPREXA) 20 M G tablet OLANZapine (ZYPREXA) 20 MG tablet 20 mg Oral aborted Take 20 mg by mouth nightly [facility] 24 HR Nifedipine 60 MG Extended Release Oral Tablet NIFEdipine ER (ADALAT CC) 60 MG 24 hr tablet NIFEdipine ER (ADALAT CC) 60 MG 24 hr tablet 60 mg Oral aborted Take 60 mg by mouth daily [facility] Naproxen 500 MG Oral Tablet naproxen (NAPROSYN) 500 MG tablet naproxen (NAPROSYN) 500 MG tablet 500 mg Oral aborted Take 500 mg by mouth Two times daily as needed [facility] Pilocarpine Hydrochloride 5 MG Oral Tablet pilocarpine (SALAGEN) 5 MG tablet pilocarpine (SALAGEN) 5 MG tablet 5 mg Oral abor teresa Take 5 mg by mouth 3 (three) times a day [facility] gabapentin 400 MG Oral Capsule gabapentin (NEURONTIN) 400 MG capsule gabapentin (NEURONTIN) 400 MG capsule 400 mg Oral aborted Take 400 mg by mouth 3 (three) times a day [facility] Diphenhydramine Hydrochloride 25 MG Oral Tablet diphenhydrAMINE (BENADRYL) 25 MG tablet diphenhydrAMINE (BENADRYL) 25 MG tablet 100 mg Oral aborted Take 100 mg by mouth nightly [facility] Misoprostol 0.2 MG Oral Tablet misoprostol (CYTOTEC) 2 00 MCG tablet misoprostol (CYTOTEC) 200 MCG tablet 200 ug Oral aborted Take 200 mcg by mouth 4 (four) times a day [facility] Ondansetron 4 MG Disintegrating Oral Tab let ondansetron (ZOFRAN-ODT) 4 MG disintegrating tablet ondansetron (ZOFRAN-ODT) 4 MG disintegrating tablet 8 mg Oral aborted Take 8 mg by mouth 4 (four) times a day as needed for nausea [facility] Hydroxyzine Pamoate 50 MG Oral Capsule hydrOXYzine ( STARIL) 50 MG capsule hydrOXYzine (VISTARIL) 50 MG capsule 100 mg Oral a borted Take 100 mg by mouth nightly [facility] Insurance Providers Payer name Policy type / Coverage type Policy ID Covered libertarian ID Covered libertarian's relationship to baer Policy Baer Plan Information JAMSHID [id number] SP [id number] MEDICARE [id number] SP [id number] [place] [id number] MEDICARE Medicare [id number] [place] [id number] Self [id number] MEDICARE Med [id number] Self [id number] D95 SELF PAY MEDICAID [facility] [id number] SP [id number] MEDICARE [id number] SP [id number] SELF PAY MEDICAID [facility] [id number] SP [id number] MEDICARE [id number] SP [id number] D95 SELF PAY MEDICAID [facility] [id number] SP [id number] MEDICARE [id number] SP [id number] D95 SELF PAY MEDICAID [facility] [id number] SP [id number] MEDICARE [id number] SP [id number] D95 SELF PAY MEDICAID [facility] [id number] SP [id number] MEDICARE [id number] SP [id number] D95 SELF PAY MEDICAID [facility] [id number] SP [id number] MEDICARE [id number] SP [id number] D95 SELF PAY MEDICAID [facility] [id number] SP [id number] MEDICARE [id number] SP [id number] D95 MEDICARE A [id number] Self [id number] D95 MEDICAID M [id number] Self [id number] SELF PAY MEDICAID [facility] [id number] SP [id number] MEDICARE [id number] SP [id number] D95 SELF PAY MEDICAID [facility] [id number] SP [id number] MEDICARE [id number] SP [id number] D95 SELF PAY MEDICARE [id number] SP [id number] D95 MEDICAID [facility] [id number] SP [id number] SELF PAY SELF PAY SELF PAY MEDICAID [facility] [id number] SP BG [id number] MEDICARE [id number] SP [id number] D95 MEDICAID [facility] [id number] SP BG [id number] MEDICARE [id number] SP [id number] D95 MEDICAID [facility] [id number] SP BG [id number] MEDICARE [id number] SP [id number] D95 "" PRV None Medicaid CHELLE [id number] None [id number] Medicare MDA [id number] Self [id number] D95 Medicare MDB None Medicaid S [id number] S [id number] Medicare P [id number] S [id number] D95 SELF PAY MEDICAID [facility] [id number] SP [id number] MEDICARE [id number] SP [id number] D95 SELF PAY SELF PAY MEDICAID [facility] [id number] SP BG [id number] MEDICARE [id number] SP [id number] D95 SELF PAY MEDICAID [facility] [id number] SP BG [id number] MEDICARE [id number] SP [id number] D95 MEDICAID [facility] [id number] SP [id number] MEDICARE [id number] SP [id number] D95 SELF PAY MEDICAID [facility] [id number] SP BG [id number] MEDICARE [id number] SP [id number] D95 MCRB [id number] S [id number] D95 MEDICARE [id number] S [id number] D95 MEDICAID PROF FEES [id number] MEDICAID [id number] S [id number] MEDICAID [id number] RADHA. 2 [id number] 1 [id number] [place] ([facility]) - [id number] 1 [id number] SELF PAY SELF PAY MEDICAID [id number] S [id number] [facility] MEDICARE DIVISION [id number] S [id number] [place]IC[place] [id number] S [id number] SELF PAY MEDICARE [id number] Sandra [id number] D95 MEDICAID [id number] Sandra [id number] SELF PAY MEDICAID [facility] [id number] SP [id number] MEDICARE [id number] SP [id number] D95 MEDICAID [id number] MEDICARE [id number] MEDICAID [id number] SP [id number] MEDICARE C [id number] S [id number] D95 MEDICAID M [id number] S [id number] NORIDIAN JE PART B C [id number] S [id number] MCRB [id number] S [id number] MEDICARE [id number] S [id number] MEDICAID [id number] S [id number] BCBS EXCELLUS [id number] SPO DCI [id number] MEDICAID [id number] S [id number] MEDICA[place] [id number] S [id number] [id number] S [id number] [place]IC[place] [id number] S [id number] DME Jurisdiction A NHIC C [id number] SELF [id number] Medicare C [id number] SELF [id number] D95 DME Jurisdiction A MOIC C [id number] SELF [id number] Medicare C [id number] SELF [id number] D95 Medicaid [facility] S D [id number] SELF [id number] MEDICARE A [id number] Self [id number] A ANSI-Medicaid [id number] ANSI-Medicare Part B [id number] ANSI-Medicaid [id number] ANSI-Medicare Part B [id number] ANSI-Medicare Part B [id number] ANSI-Medicaid [id number] MEDICAID [id number] SP [id number] MEDICARE [id number] SP [id number] D95 ANSI-Medicaid [id number] ANSI-Medicare Part B [id number] ANSI-Medicaid [id number] ANSI-Medicare Part B [id number] ANSI-Medicaid [id number] ANSI-Medicare Part B [id number] ANSI-Medicare Part B [id number] ANSI-Medicaid [id number] ANSI-Medicaid [id number] ANSI-Medicare Part B [id number] ANSI-Medicare Part B [id number] ANSI-Medicaid [id number] ANSI-Medicare Part B [id number] ANSI-Medicaid [id number] ANSI-Medicaid [id number] ANSI-Medicare Part B [id number] ANSI-Medicaid [id number] ANSI-Medicare Part B [id number] MEDICAID [id number] S [id number] MEDICAID PI PI MEDICARE PI PI MEDICARE [id number] Sandra [id number] Medicaid [place] Medigap Part B [id number] Self [id number] Medicare [place] Medicare Primary [id number] Self [id number] MEDICAID [id number] SP [id number] [facility] MEDICARE DIVISION [id number] S [id number] [place]ICARE [place] [id number] S [id number] [facility] MEDICARE DIVISION [id number] S [id number] [place]ICARE [place] [id number] S [id number] MEDICAID [id number] SP [id number] MEDICARE [id number] SP [id number] A Medicaid S [id number] S [id number] ASSIGNED MEDICARE (81) [id number] 1 [id number] MEDICAID (101) [id number] Medicaid [place] Medigap Part B [id number] Self [id number] Medicare [place] Medicare Primary [id number] Self [id number] MEDICARE [id number] SP [id number] MEDICAID [id number] S [id number] MEDICARE C [id number] S [id number] Medicare S [id number] S [id number] Medicare P [id number] S [id number] MEDICAID -O/P [id number] MEDICARE PART A -O/P [id number] 18 [id number] [facility] B C [id number] S [id number] [facility] MEDICAID [id number] SP [id number] [facility]IC[facility] B [facility] [id number] SP [id number] MEDICARE/NATIONAL GOVT SVCS [id number] SP [id number] CCS MEDICAID [id number] SP [id number] S MEDICARE B [facility] [id number] SP [id number] MEDICARE/NATIONAL GOVT [facility]CS [id number] SP [id number] MEDICAID [id number] SP [id number] Medicare Part B [facility] [id number] MEDICAID [facility] [place] [id number] MEDICAID - CLINIC [id number] MEDICARE PART A-CLINIC [id number] 18 [id number] SELF PAY UNAVAILABLE UNA[place]A BLE Medicare C [id number] SELF [id number] A MEDICARE [id number] S [id number] A MCRB [id number] S [id number] A BLUE CROSS BLUE [facility] [id number] SELF PAY SP UNAVAILABLE S UNA[place]ILA BLE BC BLUE CARD 1 [id number] MEDICAID W [id number] S [id number] MEDICARE OUTPATIENT M [id number] S [id number] SELF PAY 2 UNAVAILABLE 1 [place] 3 [id number] [place] 010/510 [id number] POTOMAC/MEDICAID [id number] Medicare Part B [facility] [id number] BCBS OF [place] [id number] DCI [id number] MEDICAID S UNAVAILABLE P [place] BLE BC BS [place] O 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 [id number] [place] O [id number] MEDICARE PART A-CLINIC [id number] Problems, Conditions, and Diagnoses Code Display Name Description Problem Type Effective Dates Data Source(s) 200273385 Retention of urine Retention of urine Problem 11/2019 12:00:00 AM EDT [facility] ([facility] [place]) 49363537 Acute cystitis Acute cystitis Problem 04/16/2020 12:00: 00 AM EDT [facility] ([facility] [place]) Z87.898 History of seizure History of seizure [id number] 12:00:00 AM [facility] Z11.59 Encounter for screening for other viral diseases Z11.59 - Encounter for screening for other viral diseases Diagnosis 10/09/2020 11:42:00 AM [employer] U07.1 U07.1 - COVID-19 U07.1 - COVID-19 Diagnosis 10/05/2020 10 :44:[address] [facility] Z20.828 Contact with and (suspected) exposure to other viral communicable diseases Z20.828 - Contact with and (suspected) e xposure to other viral communicable diseases Diagnosis 09/21/2020 02:36:[address] [facility] th Z01.84 Encounter for antibody response examinat ion Z01.84 - Encounter for antibody response examination Diagnosis 09/10/2020 11:25:00 AM EDT [facility] R94.6 Abnormal results of thyroid function kristan dies R94.6 - Abnormal results of thyroid function studies Diagnosis 08/15/2020 07:00:00 AM EDT [facility]alth M25.50 Pain in unspecified joint Pain in unspecified joint Di agnosis 07/26/2020 09:28:45 AM T [facility] G89.29 Other chronic pain Other chronic pain Diagnosis 08/2020 09:28:45 AM [facility] M79.10 M79.10 - Myalgia, unspecified site M79.10 - Myal devon, unspecified site Diagnosis 06/20/2020 07:50:[facility] D64.9 Anemia, unspecified D64.9 - Anemia, unspecified Diagno sis 06/18/2020 10:52:00 [facility] M32.10 Systemic lupus erythematosus, organ or s ystem involvement unspecified M32.10 - Systemic lupus erythematosus, organ or system involvement unspecified Diagnosis 06/07/2020 09:10:00 PM EDT [facility] G93.1 Anoxic brain damage, not elsewhere class ified G93.1 - Anoxic brain damage, not elsewhere classified Diagnosis 06/07/2020 09:10:00 PM [facility] 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 I69.914 - Frontal lobe and executive fun ction deficit following unspecified cerebrovascular disease Diagnosis 06/07/20 20 09:10:00 PM EDT [facility] J41.0 Simple chronic bronchitis J41.0 - Simple chronic bronc hitis Diagnosis 06/07/2020 09:10:00 [facility] I10 Essential (primary) hypertension I10 - Essential (primary) hypertension Diagnosis 06/07/2020 09:10:00 [facility] 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 F44.5 - Conversion disorder with seizures or convulsions Diagnosis 06/07/2020 09:10:00 PM EDT [facility] M32.9 Systemic lupus erythematosus, unspecifie d M32.9 - Systemic lupus erythematosus, unspecified Diagnosis 06/07/2020 09:10:00 PM EDT [facility] R45.851 Suicidal ideations R45.851 - Suicidal ideations Diagno sis 06/07/2020 09:10:00 PM EDT [facility] F32.9 Major depressive disorder, single episod e, unspecified F32.9 - Major depressive disorder, single episode, unspecified Diagnosis 06/07 09:10:00 PM EDT [facility] H53.149 Visual discomfort, unspecified H53.149 - Visual discomfort, unspecified Diagnosis 05/09/2020 02:21:00 AM EDT [facility] R11.0 Nausea R11.0 - Nausea Diagnosis 05/09/2020 02:21:00 A M EDT [facility] R51 Headache R51 - Headache Diagnosis 05/09/2020 02:21:00 A M EDT [facility] N30.00 Acute cystitis without hematuria N30.00 - Acute cystitis without hematuria Diagnosis 04/16/2020 11:00:00 PM EDT [facility] R41.81 Age-related cognitive decline R41.81 - Age-relat ed cognitive decline Diagnosis 04/05/2020 07:40:00 AM EDT [facility] F41.9 Anxiety disorder, unspecified ANXIETY DISORDER, UNSPEC IFIED Diagnosis 04/02/2020 12:00:00 AM EDT [facility] ([facility] ) N39.0 Urinary tract infection, site not specif ied URINARY TRACT INFECTION, SITE NOT SPECIFIED Diagnosis 04/02/2020 12:00:00 AM EDT [facility] ([facility]) N30.90 Cystitis, unspecified without hematuria CYSTITIS, UNSPECIFIED WITHOUT HEMATURIA Diagnosis 04/02/2020 12:00:00 AM EDT [facility] ([facility]) M35.00 Sicca syndrome, unspecified SICCA SYNDROME, UNSPECIFIE D Diagnosis 04/02/2020 12:00:00 AM EDT [facility] ([facility] ) T50.905A Adverse effect of unspecifie d drugs, medicaments and biological substances, initial encounter T50.905A - Adverse effect of unspecified drugs, medicaments and biological substances, initial encounter Diagnosis 03/28/2020 02:08:00 PM EDT [facility] K58.0 Irritable bowel syndrome with diarrhea K 58.0 - Irritable bowel syndrome with diarrhea Diagnosis 03/28/2020 02:08:00 PM EDT [facility] R00.1 Bradycardia, unspecified R00.1 - Bradycardia, unspecif ied Diagnosis 03/28/2020 02:08:00 PM EDT [facility] E51.2 Wernicke's encephalopathy E51.2 - Wernicke's encephalo jonny Diagnosis 03/28/2020 02:08:00 PM EDT [facility] J45.909 Unspecified asthma, uncomplicated J45.90 9 - Unspecified asthma, uncomplicated Diagnosis 03/28/2020 02:08:00 PM EDT [facility] R63.0 Anorexia R63.0 - Anorexia Diagnosis 03/28/2020 02:08:00 PM EDT [facility] R06.02 Shortness of breath R06.02 - Shortness of breath Diagn osis 03/28/2020 02:08:00 PM EDT [facility] K58.9 Irritable bowel syndrome without diarrhe a K58.9 - Irritable bowel syndrome without diarrhea Diagnosis 03/28/2020 02:08:00 PM EDT [facility] N13.9 Obstructive and reflux uropathy, unspeci fied N13.9 - Obstructive and reflux uropathy, unspecified Diagnosis 03/28/2020 02:08:[address] [facility] R26.89 Other abnormalities of gait and mobility R26.89 - Other abnormalities of gait and mobility Diagnosis 03/28/2020 02:08:00 PM EDT [facility] M62.81 Muscle weakness (generalized) M62.81 - Muscle we akness (generalized) Diagnosis 03/28/2020 02:08:00 PM EDT [facility] M79.7 Fibromyalgia M79.7 - Fibromyalgia Diagnosis 03/28/2020 02 :08:00 PM EDT [facility] Z96.0 Presence of urogenital implants Z96.0 - Presence of urogenital implants Diagnosis 03/28/2020 02:08:00 PM EDT [facility] Z98.84 Bariatric surgery status Z98.84 - Bariatric surgery [facility] Diagnosis 03/28/2020 02:08:00 PM EDT [facility] N13.9 Obstructive and reflux uropathy, unspeci fied OBSTRUCTIVE AND REFLUX UROPATHY, UNSPECIFIED Diagnosis 01/12/2020 12:00:00 AM EST [facility] ([facility]) R26.89 Other abnormalities of gait and mobility OTHER ABNORMALITIES OF GAIT AND MOBILITY Diagnosis 12/05/2019 12:00:00 AM EST [facility] ([facility]) R41.841 Cognitive communication deficit COGNITIVE COMMUN ICATION DEFICIT Diagnosis 10/07/2019 12:00:00 AM EST [facility] ([facility]) I69.828 Other speech and language de ficits following other cerebrovascular disease OTHER SPEECH AND LANGUAGE DEFICITS FOLLO WING OTHER CEREBROVASCULAR DISEASE Diagnosis 10/07/2019 12:00:00 AM EST [facility] ([facility]) 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 DYSPHAGIA FOLLOWING OTHER CEREBROVASCULAR DISEASE Diagnosis 10/07/2019 12:00:00 AM EST [facility] ([facility]) M62.81 Muscle weakness (generalized) MUSCLE WEAKNESS (GENERAL IZED) Diagnosis 10/06/2019 12:00:00 AM EST [facility] ([facility] ) M62.59 Muscle wasting and atrophy, not elsewher e classified, multiple sites MUSCLE WASTING AND ATROPHY, NOT ELSEWHERE CLASSIFIED, MULTIPLE SITES Diagnosis 10/06/2019 12:00:00 AM EST [facility] ([facility] ) E46 Unspecified protein-calorie malnutrition UNSPECIFIED PROTEIN-CALORIE MALNUTRITION Diagnosis 10/05/2019 12:00:00 AM EST [facility] ([facility]) M79.7 Fibromyalgia FIBROMYALGIA Diagnosis 10/05/2019 12:00:00 A M EST [facility] ([facility]) I10 Essential (primary) hypertension ESSENTIAL (PRIMARY) H YPERTENSION Diagnosis 10/05/2019 12:00:00 AM EST [facility] ([facility] ) E51.2 Wernicke's encephalopathy WERNICKE'S ENCEPHALOPATHY Di agnosis 10/05/2019 12:00:00 AM EST [facility] ([facility] ) N31.8 Other neuromuscular dysfunction of bladd er OTHER NEUROMUSCULAR DYSFUNCTION OF BLADDER Diagnosis 10/05/2019 12:00:00 AM EST [facility] ([facility]) M32.8 Other forms of systemic lupus erythemato angel OTHER FORMS OF SYSTEMIC LUPUS ERYTHEMATOSUS Diagnosis 10/05/2019 12:00:00 AM [facility] ([facility]) G40.89 Other seizures OTHER SEIZURES Diagnosis 10/05/2019 12:00: 00 AM [facility] ([facility]) K58.8 Other irritable bowel syndrome OTHER IRRITABLE BOWEL S YNDROME Diagnosis 10/05/2019 12:00:00 AM [facility] ([facility] ) F33.9 Major depressive disorder, recurrent, un specified MAJOR DEPRESSIVE DISORDER, RECURRENT, UNSPECIFIED Diagnosis 10/05/2019 12:00:00 AM [facility] ([facility]) F50.00 Anorexia nervosa, unspecified ANOREXIA NERVOSA, UNSPEC IFIED Diagnosis 10/05/2019 12:00:00 AM [facility] ([facility] ) D64.9 Anemia, unspecified ANEMIA, UNSPECIFIED Diagnosis 1 12/05/2018 12:00:00 AM [facility] ([facility] ) J45.998 Other asthma OTHER ASTHMA Diagnosis 10/05/2019 12:00:00 A M [facility] ([facility]) J96.00 Acute respiratory failure, u nspecified whether with hypoxia or hypercapnia ACUTE RESPIRATORY FAILURE, UNSPECIFIED W HETHER WITH HYPOXIA OR HYPERCAPNIA Diagnosis 10/05/2019 12:00:00 AM [facility] ([facility]) Surgeries/Procedures Procedure Description Date Indications Data Source(s) CBC AND DIFFERENTIAL CBC AND DIFFERENTIAL Routine 10/24/2020 9:40 AM EST 10/24/2020 09:40:00 AM [facility] THYROID STIMULATING HORMONE TSH TSH Routine 10/24/2020 9:40 AM EST 10/24/2020 09:40:00 AM [facility] FOLIC ACID SERUM FOLATE Routine 10/24/2020 9:40 AM EST 10/24/2020 09:40:00 AM [facility] CYANOCOBALAMIN VITAMIN B-12 VITAMIN B12 Routine 10/24/2020 9:40 AM EST 10/24/2020 09:40:00 AM [facility] COMPREHENSIVE METABOLIC PANEL COMPREHENSIVE METABOLIC PANEL Rou ruthann 10/24/2020 9:40 AM EST 10/24/2020 09:40:00 AM SHAUN good [facility] Urine culture (procedure) 04/16/2020 12:00:00 AM [facility] (procedure) 2019 12:00:00 AM EDT [facility] SPINE CERVICAL WO CONT 03/31/2020 02:44:[facility] 03/31/2020 02:44[facility] CONT 03/31/2020 02:44:00 PM [facility] BRAIN WO CONTRAST 03/31/2020 08:27:00 AM EDT [facility] BRAIN [facility] CONTRAST 03/31/2020 08:27:[facility] 03/31/2020 08:27:00 AM EDT [facility] Urine culture (procedure) 03/30/2020 12:00:00 AM [facility] Mon[facility] percent [facility] count (procedure) 2019 [facility]:00:[facility] 03/30/2020 12:00:00 AM EDT [facility] Monocyte percent differential count (procedure) 2019 12:00:00 AM [facility] 03/30/2020 12:00:[facility] (procedure[facility] 2019 12:00:[facility] chest [facility] (procedure) 03/28/2020 09:49:00 AM E [facility] B[facility]IN HEAD WO CONTRAST 03/28/2020 09:49:00 AM EDT [facility] [place] chest [facility] (procedure) 03/28/2020 09:49:00 AM E [facility] WO CONTRAST 03/28/2020 09:49:[facility] 03/28/2020 09:49:00 AM E [facility] WO CONTRAST 03/28/2020 09:49:00 AM ED[facility] [place] [facility] (procedure) 03/28/2020 09:49:00 AM E [facility] WO CONTRAST 03/28/2020 09:49:00 AM EDT [facility] Blood culture for bacteria, including anaerobic screen (proc edure) 03/28/2020 12:00:00 AM EDT [facility] Blood culture for bacteria, including anaerobic screen (proc edure) 03/28/2020 12:00:00 AM EDT [facility] Blood culture for bacteria, including anaerobic screen (proc edure) 03/28/2020 12:00:00 AM EDT [facility] Blood Culture 03/28/2020 12:00:00 AM EDT [facility] Urine Culture 03/28/2020 12:00:00 AM ED[facility] [place] Count 03/28/2020 12:00:00 AM EDT [facility] GLUC BLD GLUC MNTR DEV CLEARED FDA [...] 10/03/2019 6:06 AM EST 10/03/2019 11:06:00 AM [facility] GLUC BLD GLUC MNTR DEV CLEARED [...] 10/02/2019 5:12 AM EST 10/02/2019 10:12:00 AM [facility] BASIC METABOLIC PANEL CALCIUM TOTAL BASIC METABOLIC PANEL Timed 10/02/2019 5:12 AM EST 10/02/2019 10:12:00 AM EST [facility] GLUC BLD GLUC MNTR DEV CLEARED FDA SPEC HOME USE POCT GLUCOSE Routine 10/02/2019 4:01 AM EST 10/02/2019 09:01:00 AM EST [facility] Results ID Date Data Source [id number] 11/25/2020 03:26:00 AM [facility] Name Value Range Interpretation Code Description Data Elizabeth rce(s) Supporting Document(s) SARS-CoV-2 & Flu A/B Specimen Source: Nasopharynx [facility] Patient Ethnicity: Unknown [facility] ADDITIONAL INFORMATIO N This PCR test is performed using the tremaine SARS-CoV-2 andInfluenza A/B assay ([employer] on [employer] / [address] [employer], and it has received EmergencyUse Authorization (EUA) by the U.S. Food and DrugAdministration.Fact sheets for this Emergency Use Authorization (EUA)assay can be found at the following links:https://www.fda.gov/media/200072/download for HealthcareProvidershttps://www.fda.gov/media/682217/download for PatientsTest Performed by:[address] [id number] Director: Salvador Owens M.D. Ph.D.; CLIA# [id number] Patient Race: Unknown [facility] SARS CoV-2 RNA PCR Undetected Undetected Normal (appli es to non-numeric results) [facility] SARS-CoV-2 RNA absent. This result does not rule outCOVID-19 in the patient, as the sensitivity of the testdepends on the timing of the specimen collection and thequality of the specimen. Result should be correlated withpatient's history and clinical presentation. Influenza A RNA PCR Undetected Undetected Normal (appl ies to non-numeric results) [facility] Influenza A RNA absent. Influenza B RNA PCR Undetected Undetected Normal (appl ies to non-numeric results) [facility] Influenza B RNA absent.The above 6 shahbaz luigi were performed by [employer] [facility] ([id number]) ID Date Data Source [id number] 11/16/2020 07:53:00 PM EST [facility] Name Value Range Interpretation Code Description Data Elizabeth rce(s) Supporting Document(s) SARS coronavirus 2 RNA [facility] This lab was ordered by [facility] (ER) and reported by [facility]. ID Date Data Source [id number] 11/14/2020 09:40:00 AM EST [facility] Name Value Range Interpretation Code Description Data Elizabeth rce(s) Supporting Document(s) :PrThr:Pt:Respiratory:Ord:Probe.amp.tar [facility] This lab was ordered by [facility] Lab [facility] and reported by [facility]. ID Date Data Source [id number] 11/15/2020 03:11:00 PM EST [facility] Name Value Range Interpretation Code Description Data Elizabeth rce(s) Supporting Document(s) CRSP SARS-CoV-2 (RT)-PCR Assay Negative Negative N ormal (applies to non-numeric results) [facility] The [place] (U.S[place] FDA has made th is test available under anemergency access mechanism called Emergency Use Authorization (EUA). TheEUA is supported by the field secretary of Health and Human Services (HHSs)declaration that circumstances exist to justify the emergency use of invitro diagnostics (IVDs) for the detection and/or diagnosis of the virusthat causes COVID-19.Test performed at [facility] located at [facility], [address] [place] [address]. First Test No [facility] System Employed in healthcare No [facility] Symptomatic as defined by CDC No [facility] Hospitalized [facility] Resident in a congregate care setting Yes [facility] No [facility] Intensive Care No [facility] ealt System The above 8 analytes were [place] [address] ID Date Data Source [id number] 11/07/2020 12:00:00 PM EST [facility] Name Value Range Interpretation Code Description Data Elizabeth rce(s) Supporting Document(s) :PrThr:Pt:Respiratory:Ord:Probe.amp.tar [facility] This lab was ordered by [facility] and reported by [facility]. ID Date Data Source [id number] 11/12/2020 12:31:00 PM EST [facility] Name Value Range Interpretation Code Description Data Elizabeth rce(s) Supporting Document(s) CRSP SARS-CoV-2 (RT)-PCR Assay Negative Negative N ormal (applies to non-numeric results) [facility] The [place] (U.S[place] FDA has made th is test available under anemergency access mechanism called Emergency Use Authorization (EUA). TheEUA is supported by the field secretary of Health and Human Services (HHSs)declaration that circumstances exist to justify the emergency use of invitro diagnostics (IVDs) for the detection and/or diagnosis of the virusthat causes COVID-19.Test performed at [facility] [place] [address]. First Test No [facility] System Employed in healthcare No [facility] Symptomatic as defined by CDC No [facility] Hospitalized No [facility] lt System Resident in a congregate care setting Yes [facility] No [facility] Intensive Care No [facility] ealt System The above 8 analytes were [place] [address] ID Date Data Source [id number] 10/26/2020 07:00:00 AM EST [facility] Name Value Range Interpretation Code Description Data Elizabeth rce(s) Supporting Document(s) :PrThr:Pt:Respiratory:Ord:Probe.amp.tar [facility] This lab was ordered by [facility] and reported by [facility]. ID Date Data Source [id number] 10/29/2020 05:51:00 PM EST [facility] Name Value Range Interpretation Code Description Data Elizabeth rce(s) Supporting Document(s) CRSP SARS-CoV-2 (RT)-PCR Assay Negative Negative N ormal (applies to non-numeric results) [facility] The [place] (U.S[place] FDA has made th is test available under anemergency access mechanism called Emergency Use Authorization (EUA). TheEUA is supported by the field secretary of Health and Human Services (HHSs)declaration that circumstances exist to justify the emergency use of invitro diagnostics (IVDs) for the detection and/or diagnosis of the virusthat causes COVID-19.Test performed at [facility] located at [facility], [address] [place] [address]. First Test No [facility] System Employed in healthcare No [facility] Symptomatic as defined by CDC Yes [facility] Hospitalized No [facility] Resident in a congregate care setting Yes [facility] No [facility] Intensive Care No [facility] ealth System The above 8 analytes were performed by [facility] [place] [address] ID Date Data Source [id number] 10/27/2020 10:50:00 AM [facility] Name Value Range Interpretation Code Description Data Elizabeth rce(s) Supporting Document(s) Levetiracetam, S 9.7 mcg/mL 12.0 - 46.0 Below low normal [facility] ADDITIONAL INFORMATIO N This test was developed and its performance characteristicsdetermined by [facility] in a manner consistent with CLIArequirements. This test has not been cleared or approved bythe U.S. Food and Drug Administration.Test Performed by:[facility] [place] [id number] Director: Salvador Owens M.D. Ph.D.; CLIA# [id number] above 1 analytes were performed by [employer] [facility] ([id number]) ID Date Data Source [id number] 10/24/2020 06:45:00 PM EST [facility] Name Value Range Interpretation Code Description Data Elizabeth rce(s) Supporting Document(s) Folate 21.61 ng/ml 5.39-9999.00 Normal (applies to non-numeric re sults) [facility] -----Interpretive Information-----Folate Deficiency: 0.35-3.37 ng/mL.Intermediate: 3.35-5.38 ng/mLNormal: >5.38 ng/mLPatients routinely receiving high-dose biotin therapy may show falselyelevated results. Additional information may be required for diagonsis.The above 1 analytes were performed by [place] [facility] [address] [place] [address], ,[place] [address] ID Date Data Source [id number] 10/24/2020 06:45:00 PM [facility] Name Value Range Interpretation Code Description Data [facility] rce(s) Supporting Document(s) Vitamin B12 >2000 pg/ml 211-911 Above high normal [facility] The above 1 analytes were performed by [facility] [address] [place] [address], ,[place] [address] ID Date Data Source [id number] 10/24/2020 06:41:00 PM [facility] Name Value Range Interpretation Code Description Data [facility] rce(s) Supporting Document(s) AST 13 IU/L 15-37 Below low normal [facility] Sulfasalazine and sulfapyridine have the potential to falsely depressAspartate Aminotransferase results. Baseline values before medication administration are recommended. ALT 21 IU/L 13-56 Normal (applies to non-numeric resul ts) [facility] Sulfasalazine and sulfapyridine have the potential to falsely depressAlanine Aminotransferase results. Baseline values before medication administration are recommended. Alkaline Phosphatase 54 mIU/ml 50-136 Normal (applies to non-num marya results) [facility] Total Bilirubin 0.30 mg/dl 0.20-1.00 Normal (applies to non-numeric results) [facility] Blood Urea Nitrogen 9 mg/dl 7-18 Normal (applies to non-nume deepti results) [facility] Creatinine 0.78 mg/dl 0.51-0.95 Normal (applies to non-numeric resul ts) [facility] N-Acetylcysteine (NAC) and Metamizole velez ve the potential to falselydepress Creatinine results. Baseline values before medication adminstration are recommended. Patients undergoing treatment with phenindione will have falselydepressed results. Patients on phenindione therapy should be tested with an alternativeCREA method.Toxic levels of acetaminophen may lead to falsely depressed results forpatient samples. Glomerular Filtration Rate 81.00 mL/min/1.73m2 [facility] GFR Reference Ranges:Normal Function or Mild Renal [...] of Health and the National KidneyFoundation. The [place] method used in calculating this result is traceable to IDMS standards. Glucose 74 mg/dl 70-110 Normal (applies to non-numeric resul ts) [facility] Sulfasalazine has the potential to false ly depress Glucose results. Sulfapyridine has the potential to falsely elevate Glucose results. Baseline values before medication administration are recommended. Calcium 8.5 mg/dl 8.5-10.1 Normal (applies to non-numeric resul ts) [facility] Total Protein 5.3 g/dl 6.4-8.2 Below low normal [facility] Albumin 3.0 g/dl 3.4-5.0 Below low normal [facility] Sodium 141 mEq/L 136-145 Normal (applies to non-numeric resul ts) [facility] Potassium 4.6 mEq/L 3.5-5.1 Normal (applies to non-numeric resul ts) [facility] Chloride 110.0 mEq/L 98.0-107.0 Above high normal [facility] Carbon Dioxide 25.4 mMol/L 21.0-32.0 Normal (applies to non-numeric results) [facility] Anion Gap 10.2 7.0-15.0 Normal (applies to non-numeric resul ts) [facility] The above 16 analytes were performed by [facility] [address] [place] [address],[facility] [id number],[place] [address] ID Date Data Source [id number] 10/24/2020 06:41:00 PM EST [facility] Name Value Range Interpretation Code Description Data Elizabeth rce(s) Supporting Document(s) TSH 0.10 uIU/ml 0.36-3.74 Below low normal [facility] Concentrations of Biotin above 100 ng/mL can potentially result ininterference.The above 1 analytes were performed by [facility] [address] [place] [address],[facility] [id number],[place] [address] ID Date Data Source [id number] 10/24/2020 05:42:00 PM EST [facility] Name Value Range Interpretation Code Description Data Elizabeth rce(s) Supporting Document(s) WBC 4.69 x1000/ul 4.80-10.00 Below low normal [facility] RBC 3.74 x1Mil/ul 4.20-5.40 Below low normal [facility] Hemoglobin 11.5 g/dl 12.0-16.0 Below low normal [facility] Hematocrit 35.3 % 37.0-47.0 Below low normal [facility] MCV 94.4 fL 81.0-99.0 Normal (applies to non-numeric resul ts) [facility] MCH 30.7 pg 27.0-31.0 Normal (applies to non-numeric resul ts) [facility] MCHC 32.6 g/dl 32.2-37.0 Normal (applies to non-numeric resul ts) [facility] RDW 13.4 % 11.5-14.5 Normal (applies to non-numeric resul ts) [facility] Platelet Count 259 x1000/ul 130-400 Normal (applies to non-numeric results) [facility] MPV 11.1 fL 9.4-12.4 Normal (applies to non-numeric resul ts) [facility] Neutrophils 40.7 % 40.0-74.0 Normal (applies to non-numeric resu lts) [facility] Lymphocytes 48.0 % 19.0-48.0 Normal (applies to non-numeric resu lts) [facility] Monocytes 6.8 % 3.4-9.0 Normal (applies to non-numeric resul ts) [facility] Eosinophils 3.0 % 0.0-7.0 Normal (applies to non-numeric resu lts) [facility] Basophils 1.3 % 0.0-2.0 Normal (applies to non-numeric resul ts) [facility] Immature Granulocytes 0.2 % 0.0-0.5 Normal (applies to non-nu meric results) [facility] Nucleated RBCs 0.00 % 0.00-0.20 Normal (applies to non-numeric r esults) [facility] Abs. Neutrophils 1.91 x1000/ul 1.92-8.31 Below low normal [facility] Abs. Lymphocyte 2.25 x1000/ul 1.20-3.70 Normal (applies to non-n umeric results) [facility] Abs. Monocytes 0.32 x1000/ul 0.14-0.97 Normal (applies to non-nu meric results) [facility] Abs. Eosinophils 0.14 x1000/ul 0.00-0.76 Normal (applie s to non-numeric results) [facility] Abs. Basophils 0.06 x1000/ul 0.00-0.22 Normal (applies to non-n umeric results) [facility] Abs. Immature Gran. 0.01 x1000/ul 0.00-0.02 Normal (appl ies to non-numeric results) [facility] Abs. Nucleated RBCs 0.00 x1000/ul 0.00-0.02 Normal (appl ies to non-numeric results) [facility] The above 24 analytes were performed by [facility] [id number] [facility] [id number],[place] [address] ID Date Data Source [id number] 10/18/2020 09:50:00 PM EST [facility] Name Value Range Interpretation Code Description Data Elizabeth rce(s) Supporting Document(s) SARS coronavirus 2 RNA [Presence] in Res piratory specimen by MARIAN with probe detection [facility] This lab was ordered by [facility] a nd reported by [facility]. ID Date Data Source [id number] 10/16/2020 06:05:00 PM EST [facility] Name Value Range Interpretation Code Description Data Elizabeth rce(s) Supporting Document(s) SARS [facility] This lab was ordered by [facility] and reported by [facility]. ID Date Data Source [id number] 10/19/2020 08:41:00 AM EST [facility] Name Value Range Interpretation Code Description Data Elizabeth rce(s) Supporting Document(s) COVID 19 Not Detected Not Detected [facility] This nucleic acid amplification test wa s developed and its performance characteristics determined by [facility]. Nucleic acid amplification tests include PCR [...] detected) result in this assay. Performed at: [facility] [place], [place] [id number] Brim Molder: Gabriela Mckinley PhD, Phone: [phone] ID Date Data Source [id number] 10/09/2020 12:19:00 PM EST [facility] Name Value Range Interpretation Code Description Data Elizabeth rce(s) Supporting Document(s) SARS coronavirus 2 RNA [facility] This lab was ordered by [facility] and reported by [facility]. ID Date Data Source [id number] 10/12/2020 06:57:00 AM EST [facility] Name Value Range Interpretation Code Description Data Elizabeth rce(s) Supporting Document(s) COVID 19 Not Detected Not Detected [facility] This nucleic acid amplification test wa s developed and its performance characteristics determined by [employer]. Nucleic acid amplification tests include PCR and [...] detected) result in this assay. Performed at: [facility] [place], [place] [id number] Brim Molder: Gabriela Mckinley PhD, Phone: [phone] ID Date Data Source [id number] 10/05/2020 02:00:00 PM EST [facility] Name Value Range Interpretation Code Description Data Elizabeth rce(s) Supporting Document(s) SARS coronavirus 2 RNA [facility] This lab was ordered by [facility] and reported by [facility]. ID Date Data Source [id number] 10/06/2020 10:39:00 PM EST [facility] Name Value Range Interpretation Code Description Data Elizabeth rce(s) Supporting Document(s) COVID 19 Not Detected Not Detected [facility] This nucleic acid amplification test wa s developed and its performance characteristics determined by [facility]. Nucleic acid amplification tests include PCR [...] detected) result in this assay. Performed at: [facility] [address] [facility], [place], [place] [id number] Brim Molder: Gabriela Mckinley PhD, Phone: [phone] ID Date Data Source [id number] 09/28/2020 12:00:00 AM EST [facility] Name Value Range Interpretation Code Description Data Elizabeth rce(s) Supporting Document(s) SARS coronavirus 2 RNA [facility] This lab was ordered by [facility] and reported by [facility]. ID Date Data Source [id number] 10/01/2020 08:00:00 AM EST [facility] Name Value Range Interpretation Code Description Data Elizabeth rce(s) Supporting Document(s) COVID 19 Not Detected Not Detected [facility] This nucleic acid amplification test wa s developed and its performance characteristics determined by [employer]. Nucleic acid amplification tests include PCR and [...] detected) result in this assay. Performed at: [facility], [place], [place] [id number] Brim Molder: Gabriela Mckinley PhD, Phone: [phone] ID Date Data Source [id number] 09/21/2020 12:35:00 PM EST [facility] Name Value Range Interpretation Code Description Data Elizabeth rce(s) Supporting Document(s) SARS coronavirus 2 RNA [facility] This lab was ordered by [facility] and reported by [facility]. ID Date Data Source [id number] 09/22/2020 10:11:00 PM EST [facility] Name Value Range Interpretation Code Description Data Elizabeth rce(s) Supporting Document(s) COVID 19 Not Detected Not Detected [facility] This nucleic acid amplification test wa s developed and its performance characteristics determined by [employer]. Nucleic acid amplification tests include PCR and [...] detected) result in this assay. Performed at: [address] [id number] Brim Molder: Criss Gil MD, Phone: [phone] ID Date Data Source [id number] 09/14/2020 12:17:00 PM EDT [facility] Name Value Range Interpretation Code Description Data Elizabeth rce(s) Supporting Document(s) SARS coronavirus 2 RNA [facility] This lab was ordered by [facility] and reported by [facility]. ID Date Data Source [id number] 09/16/2020 08:19:00 PM EST [facility] Name Value Range Interpretation Code Description Data Elizabeth rce(s) Supporting Document(s) COVID 19 Not Detected Not Detected [facility] Testing was performed using the tremaine(R ) SARS-CoV-2 test. This nucleic acid amplification test was developed and its performance characteristics determined by [employer]. Nucleic acid amplification tests include PCR and [...] detected) result in this assay. Performed at: [address] [id number] Brim Molder: Criss Gil MD, Phone: [phone] ID Date Data Source [id number] 09/10/2020 07:50:00 AM EDT [facility] Name Value Range Interpretation Code Description Data Elizabeth rce(s) Supporting Document(s) SARS coronavirus 2 RNA [facility] This lab was ordered by [facility] and reported by [facility]. ID Date Data Source [id number] 09/13/2020 10:19:00 AM EDT [facility] Name Value Range Interpretation Code Description Data Elizabeth rce(s) Supporting Document(s) COVID 19 Not Detected Not Detected [facility] Testing was performed using the tremaine(R ) SARS-CoV-2 test. This nucleic acid amplification test was developed and its performance characteristics determined by [facility]. Nucleic acid amplification tests include PCR and [...] detected) result in this assay. Performed at: [address] [id number] Brim Molder: Criss Gil MD, Phone: [phone] ID Date Data Source [id number] 08/15/2020 08:46:00 AM EDT [facility] Name Value Range Interpretation Code Description Data Elizabeth rce(s) Supporting Document(s) FREE T4 (FREE THYROXINE) 1.21 NG/DL 0.76-1.78 [facility] ID Date Data Source [id number] 08/15/2020 08:46:00 AM EDT [facility] Name Value Range Interpretation Code Description Data Elizabeth rce(s) Supporting Document(s) TSH 2.848 uIU/ML 0.470-4.200 [facility] Patients should not be tested for 70 ho urs post fluorescein dye angiography. A false depression of result may occur. ID Date Data Source [id number] 07/31/2020 07:49:00 AM EDT [facility] Name Value Range Interpretation Code Description Data Elizabeth rce(s) Supporting Document(s) FREE T4 (FREE THYROXINE) 0.84 NG/DL 0.76-1.[address] [facility] ID Date Data Source [id number] 07/31/2020 07:49:00 AM EDT [facility] Name Value Range Interpretation Code Description Data Elizabeth rce(s) Supporting Document(s) T3FREE 2.6 PG/ML 2.3-4.2 [facility] ID Date Data Source [id number] 07/31/2020 07:49:00 AM EDT [facility] Name Value Range Interpretation Code Description Data Elizabeth rce(s) Supporting Document(s) TSH 0.905 uIU/ML 0.470-4.200 [facility] Patients should not be tested for 72 ho urs post fluorescein dye angiography. A false depression of result may occur. ID Date Data Source [id number] 07/26/2020 10:25:38 AM EDT [facility] Name Value Range Interpretation Code Description Data Elizabeth rce(s) Supporting Document(s) Progress Note [facility] JDMUPk4gZzJSFoWk67/USPmeAFMzn1CcNJvsWUe4SQcfCECaL3NgTCJ0kP9cXRF9MAgWUaJlGmYwRUE[facility] [file] senior care+nVznJOHyBMXAf49AsgfZFTR2bINBrnFqCM3AV2 [file] AgICAgICAgICAgICAgICAgICAgICAgICAgICAgICAg WIDaHBDxDIVeVIFnCBAjEKXsGYFeBHZmPBOwJVHrLFJtYBRdCYKzJKQqFCExQWEgCISgKJVqHX3TMSXp ICAgICAgICAgICAgICAgICAgICAgICAgICAgICAgICAgICAgICAgICAgICAgICAgICAgICAgICAgICAg ICAgICAgICAgICAgICAgICAgICAgICAgICAgICAgIC ZyJRGhLN3YEKQbKEYvPMAyFINsYXRvTRKcZQVhLPXxIWUwMILpVXDxFSMkILGkKAYyUZIfFVEwHDIdVM SxNIYlSZDtSSCcBWSlUVBvEXZgVNMfUGYoTEPaBZSuXOAqQPAjXSBnHQFkSJClBD9REUCaNILaQNRnRZ AgICAgICAgICAgICAgICAgICAgICAgICAgICAgICAg OPFnCGTnYBHrUAYlVWDmYRFmWLDeNKZiZEQvCRGtFQIeNMJgCPSnDRZhKUXvAFRdLPDrMJXlZJIsCS2B ICAgICAgICAgICAgICAgICAgICAgICAgICAgICAgICAgICAgICAgICAgICAgICAgICAgICAgICAgICAg ICAgICAgICAgICAgICAgICAgICAgICAgICAgICAgIC BsQXFbTLLrBN1PTKSpGYDyRRSvYWTaWVFqTWOjOSYhQSWuGKDeCJXqNIExULXiCFXzZRYeJJGgASXwNT PtYYVrOPGfZNQxNALlSUGfLQKqCIZiQCHcOIGtMRBtWVHeEYGqTDSfESLzPMZvLZYcQB0WSBLqBXSbRW AgICAgICAgICAgICAgICAgICAgICAgICAgICAgICAg ICAgICAgICAgICAgICAgICAgICAgICAgICAgICAgICAgICAgICAgICAgICAgICAgICAgICAgICAgICAg PU1QTESqZXHuBKVlMANlBWDcLVJsRZXgJSOyGNElQMMsAHPfOYXoWHPlTJZfULKwWKZmIPQbXYCbGMHz ICAgICAgICAgICAgICAgICAgICAgICAgICAgICAgIC QkFKEtTUNwWMVwAW4BLVLgABIuKEEbYCIlXKVsAZDtQPAcWJDaIITzNKLhCMDhJBLpKFVzOPKuXOXdUG JrVVEcMLXsPGLdWQXmCCSzZTCrMBCbPREzUZNpERZrIWNxMRRaJOPlJXDmOVTdVDOeHTFgUV6FLN28tK Rvd5J1BQPpKC9zatn/It8WPOpuqhPukWUgTN8GZqKt PJ0rpt8NLrPwFH3yjt3BCBiYCaXvV5K7aMYdKWYiKVLJFvXjY84rEVbyOb95GBsnSJHfLdZoIYu5Us8S McBtD4ntRNBfXpL6AQRmJlX1PKBgShH5NIHrYkLwWVVsRPNeHUUjNSKWPPG7GXIiPhQlOsJjYZJeTWta UERAJNZnOPDqCvTpXcEhJCZsIqZkSOBOHP6YTwCjE3 RxsV17TWSlSAo+Mp3PNP7dz0TvALz2JsZfHQ3uie0BKQoWFrKdC9XaazB1CVUkMJTxKq4UVYOcHESfhO Z2MbPoPDHGMdQhA7GncT34XZFFTu0+ERqoucMcIwjPOiFvQWMrj0FyDJx0OY6ZABKlTFh7eMInYDEpT3 Xum6DvOh40EWGcLijcMeSfkqWcSGAHm9CmrDDpTY7Y EXW6TVxfDMQeOaIvKFVsSEinRKNMXXhAEtTjH1Yuu6MoPaZ4TRXiDcGvQUxyBBFgYcK5TV15lRxoOG4I BOCdNQWgVG32YQXgQPCwDx1YKs7KOrNgEZ4yrn0NQAKqVAYmSyhERwh8ETotJP0NwPPgA5IupNJsj3jJ PgDpS3SSBFJxVIYrNz5GXWCsOeOnFGIaCUdtYC4bAN SnCAGBpRgowxP9KD2MEV6oxuJsZL8VOnCrTs8qSs2UNsSaZ4IgX5OoWXXjNIPDMGylRO8DXWapKH4pFS 7Wz0WHxTLcjU5rvw5FVNQpDEFxDygkzm6UIollZ6E6uCceXBIfKTFeMFCZSOsvUZ4HWXEyZWT8THC7DH MmFTHIGiYyT43xGM2TB6Bdh21fPuC7LJQeKaBrLDnp EB71hOqekkRwxNRfhAfhDY6NGw1+BVmtbyUwUflLUeybVSOCJoQcHNWIEiPgAUIlTGCiFDNvPgE6PzEg Ss1SZGHmCUEdUBDuUsWsJDDaYLCzPYjlYHFfQMF9KrU7IJJoUNWmQE0LIaReLUHnJXyoXCIcZFDvGSZe cs0ZXENtCOPnJNX5QmMhTCLcBQJvIWmzTNKeVWF4DH Y8TYObBZHgMQ4DWpNpQRBqFPI4RLlkEOMeNYGvca2XEAEyMOKdGpU6WCAkYYNiCQBbKVniIWXiMKV9Ds j0TGHoYMEfPZ6QApMsKZWxTCR5JEDpLRBkEQDecl8BZLEhOFVzRFH0MGVyKOOqUHGiBVbxNAQyAJE2Cy T4QVXuRJSlOV0MYmIeMCUqFOK7AVFwANAyMAJlhb0Z IFQrIQAgJlK9AHNpIQFaREJkYCabAJEuGZF8NVC3SODnUXKlHB0UDtWkMJUjKOa0FLciGHWlZAZcau2L YCTxVSKbKUFcSoSgREToYMMnVPueLNJlGHZdPpI1ISGeZRWwKT9NXoNeNFGtOlX0RmLyNBXxNPTpch5I RWEhQTDgXmarJCWsLYGlGLRkQOawHVCdVDJ2AMS1OQ YiHGZnLI4LWhJlONMpTydjKeKpFLNlVHKhlq5NWNUfMYOxSfMsLMAoBCAmSIVtTFvtSSRzSCD2Rhi6WQ SvJQXxGU6BNaAfSBDnNuu9BTDsRQWzNEKsyb7FRJQzOHTqSPf7ZOAmPEZiJEFiWYjqPPFyRUWyHHr9TV WqMAUlUB1LGcJnBMYmHwZ6AzGzNYDlEAVbhq5AYZRl ERLxFnBtWwJlWLIkONYnTOogBUZlVFMzVhH7UBChRFLgQJ4EJwJdXSOvGsUoEeVlZVDoTOSxyd0OMNFq ISXlViI2PdEcONJaWNDcSGksWWMcHZGuXkX3JKLkECXwTO7BFhCySDIzHERfEZAtBSEcAEBtrv1YGFPf CGF9LWYuZAImXRBfUUVmTDguNHUmIBF1UwN7ZVXwVI OvKG8YHnEiTPZgXBR8DwyaZPSzJPMnmj4XWGEtDNH3OaUoCADqVIGeCHCxIBspZNGnMNP6QTI0QVXxSQ CiAZ2KNqKrQSJzKDeqCPzbHTXeDRBdeh9EYJHdOSX9ArOaGLVlKQAfNQXhKWjzTNOfWBU8GoKvVJIbPB LbIE3ZMlQkFSAgAAswSQtkFWWpHYMsfp1FXTCkUPE5 UAKrCWWsGJAiMLXjMUumFNEkEJZ3GEz3XKGeFEPxMD8THpPeWUivDSFSMbm9QUcwJ0x5GMY2DL0WY6Tk b7GuUHStRHLAXZjcOS2icpZgECWgXt6DH8vHObbxKPKmNtudEWM0VWY8VUM9WCYbMcFkCpLeJcN0AJKt Yg5uEBT1LWMeGTT3ZURjSxfvYTI2UAZhAQPrMnZzKi egWZOqMkFtNZ3FJt1NVmB5QKC6mAWpTf7VUEx3TaUYUgIhLO3QNFn= ID Date Data Source [id number] 07/17/2020 06:24:00 PM EDT [facility] Name Value Range Interpretation Code Description Data Elizabeth rce(s) Supporting Document(s) SARS coronavirus 2 RNA [facility] This lab was ordered by [facility] and reported by [facility]. ID Date Data Source [id number] 07/19/2020 06:11:00 PM EDT [facility] Name Value Range Interpretation Code Description Data Elizabeth rce(s) Supporting Document(s) COVID 19 Not Detected Not Detected [facility] This nucleic acid amplification test wa s developed and its performance characteristics determined by [facility]. Nucleic acid amplification tests include PCR [...] this assay. 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 Advised shemust discussed with her PCP perhaps seen pain [...] File>> Initializing User: Radha Malin NP 06/20/20 8710 Signed by: Radha Malin NP 06/26/20 1996 Larry Arnold MD 06/26/20 7112 Name Value Range Interpretation Code Description Data Elizabeth rce(s) Supporting Document(s) ID Date Data Source [id number] 06/18/2020 07:55:00 AM EDT [facility] Name Value Range Interpretation Code Description Data Eilzabeth rce(s) Supporting Document(s) WHITE BLOOD COUNT 5.31 10^3/uL 4.00-10.50 N [facility] RED BLOOD COUNT 3.87 10^6/uL 3.90-5.20 [facility] HEMOGLOBIN 11.2 G/DL 11.5-15.6 [facility] HEMAT[facility]IT 33.0 % 35.0-46.0 [facility] MCV 85.3 FL 80.0-100.0 N [facility] MCH 28.9 PG 27.0-34.0 N [facility] MCHC 33.9 G/DL 32-36 N [facility] RDW 14.4 % 11.5-14.5 N [facility] PLATELET COUNT 212 10^3/uL 130-400 N [facility] MPV 11.8 FL 8.7-13.2 N [facility] GRAN % (AUTO) 48.2 % 42.0-75.0 N [facility] LYMPH % (AUTO) 40.5 % 20.0-51.0 N [facility] MONO % (AUTO) 6.8 % 2.0-15.0 N [facility] EOS % (AUTO) 3.0 % 0.0-11.0 N [facility] BASO % (AUTO) 1.3 % 0.0-2.0 N [facility] IG % (AUTO) 0.2 % 1.00-5.00 [facility] IG # (AUTO) 0.0 10^3/uL <0.5 [facility] GRAN # (AUTO) 2.56 10^3/uL 1.50-6.50 N [facility] LYMPH # (AUTO) 2.2 k/uL 1.0-5.0 N [facility] MONO # (AUTO) 0.36 k/uL 0.20-1.50 N [facility] EOS # (AUTO) 0.16 10^3/uL 0.00-1.10 N [facility] BASO # (AUTO) 0.07 10^3/uL 0.00-0.20 N [facility] ID Date Data Source [id number] 06/18/2020 08:23:00 AM EDT [facility] Name Value Range Interpretation Code Description Data Elizabeth rce(s) Supporting Document(s) SODIUM 136 MEQ/L 135-145 N [facility] POTASSIUM 4.4 MEQ/L 3.5-5.3 N [facility] CHLORIDE 101 MEQ/L 94-110 N [facility] CARBON DIOXIDE 25 MEQ/L 22-33 N [facility] ANION GAP 14 5-16 N [facility] BLOOD UREA NITRO 9 MG/DL 7-25 N [facility] CREATININE 0.6 MG/DL 0.6-1.4 N [facility] GFR > 90.0 ML/MIN [facility] Stage G1 - Normal or high kidney functi on The GFR is an estimate of the Glomerular Filtration Rate. It is an aid to assess a patient's renal function. It is not a conclusive diagnosis of kidney disease. GFR normal is >=90 The MDRD GFR calculation is considered valid between the ages of 18 and 75 years only. BUN/CREAT RATIO 15 8-36 N [facility] GLUCOSE 79 MG/DL 70-100 N [facility] CA 8.9 MG/DL 8.7-10.5 N [facility] BILIRUBIN,TOTAL 0.3 MG/DL 0.1-1.3 N [facility] AST 24 U/L 5-40 N [facility] ALT 37 U/L 5-48 [facility] ALKALINE PHOSPHATASE 86 U/L 40-140 [facility] alth TOTAL PROTEIN 5.2 G/DL 5.9-8.3 L [facility] ALBUMIN 3.6 G/DL 3.0-5.1 N [facility] GLOBULIN 1.6 G/DL 1.5-3.5 [facility] ALB/GLOB RATIO 2.3 G/DL 1.0-3.0 N [facility] ID Date Data Source [id number]/18/2020 08:23:00 AM [facility] Name Value Range Interpretation Code Description Data Elizabeth rce(s) Supporting Document(s) MAGNESIUM 1.7 mg/dl 1.8-2.4 L [facility] ID Date Data Source [id number]/18/2020 08:23:00 AM [facility] Value Range Interpretation Code Description Data Elizabeth rce(s) Supporting Document(s) FREE T4 (FREE THYROXINE) 1.02 NG/DL 0.76-1.[address] [facility] ID Date Data Source [id number]/18/2020 08:23:00 AM [facility] Value Range Interpretation Code Description Data Elizabeth rce(s) Supporting Document(s) T3FREE 3.4 PG/ML 2.3-4.2 N [facility] ID Date Data Source [id number]/18/2020 08:23:00 AM [facility] Value Range Interpretation Code Description Data Elizabeth rce(s) Supporting Document(s) TSH 0.843 uIU/ML 0.470-4.200 N [facility] Patients should not be tested for 72 ho urs post fluorescein dye angiography. A false depression of result may occur. ID Date Data Source [id number] 06/13/2020 07:26:00 AM EDT [facility] Name Value Range Interpretation Code Description Data Elizabeth rce(s) Supporting Document(s) WHITE BLOOD COUNT 6.26 10^3/uL 4.00-10.50 [facility] RED BLOOD COUNT 3.53 10^6/uL 3.90-5.20 [facility] HEMOGLOBIN 10.2 G/DL 11.5-15.6 [facility] HEMATOCRIT 30.1 % 35.0-46.0 [facility] MCV 85.3 FL 80.0-100.0 N [facility] MCH 28.9 PG 27.0-34.0 N [facility] MCHC 33.9 G/DL 32-36 N [facility] RDW 14.4 % 11.5-14.5 [facility] PLATELET COUNT 259 10^3/uL 130-400 N [facility] MPV 11.6 FL 8.7-13.2 N [facility] GRAN % (AUTO) 42.7 % 42.0-75.0 [facility] LYMPH % (AUTO) 43.6 % 20.0-51.0 [facility] MONO % (AUTO) 8.6 % 2.0-15.0 [facility] EOS % (AUTO) 3.7 % 0.0-11.0 [facility] BASO % (AUTO) 1.1 % 0.0-2.0 [facility] IG % (AUTO) 0.3 % 1.00-5.00 [facility] IG # (AUTO) 0.0 10^3/uL <0.5 [facility] GRAN # (AUTO) 2.67 10^3/uL 1.50-6.50 [facility] LYMPH # (AUTO) 2.7 k/uL 1.0-5.0 [facility] MONO # (AUTO) 0.54 k/uL 0.20-1.50 N [facility] EOS # (AUTO) 0.23 10^3/uL 0.00-1.10 N [facility] BASO # (AUTO) 0.07 10^3/uL 0.00-0.20 N [facility] ID Date Data Source [id number] 06/13/2020 07:36:00 AM EDT [facility] Name Value Range Interpretation Code Description Data Elizabeth rce(s) Supporting Document(s) SODIUM 135 MEQ/L 135-145 N [facility] POTASSIUM 4.2 MEQ/L 3.5-5.3 N [facility] CHLORIDE 102 MEQ/L 94-110 N [facility] CARBON DIOXIDE 27 MEQ/L 22-33 N [facility] ANION GAP 10 5-16 N [facility] BLOOD UREA NITRO 14 MG/DL 7-25 N [facility] CREATININE 0.7 MG/DL 0.6-1.4 N [facility] GFR > 90.0 ML/MIN [facility] Stage G1 - Normal or high kidney functi on The GFR is an estimate of the Glomerular Filtration Rate. It is an aid to assess a patient's renal function. It is not a conclusive diagnosis of kidney disease. GFR normal is >=90 The MDRD GFR calculation is considered valid between the ages of 18 and 75 years only. BUN/CREAT RATIO 20 8-36 N [facility] GLUCOSE 74 MG/DL 70-100 N [facility] CA 8.7 MG/DL 8.7-10.5 N [facility] BILIRUBIN,TOTAL 0.2 MG/DL 0.1-1.3 N [facility] AST 17 U/L 5-40 N [facility] ALT 27 U/L 5-48 N [facility] ALKALINE PHOSPHATASE 89 U/L 40-140 N [facility] alth TOTAL PROTEIN 4.9 G/DL 5.9-8.3 L [facility] ALBUMIN 3.6 G/DL 3.0-5.1 N [facility] GLOBULIN 1.3 G/DL 1.5-3.5 L [facility] ALB/GLOB RATIO 2.8 G/DL 1.0-3.0 N [facility] ID Date Data Source [id number] 06/07/2020 11:19:00 PM EDT [facility] Name Value Range Interpretation Code Description Data Elizabeth rce(s) Supporting Document(s) SARS-CoV-2 (COVID-19) N gene [Presence] in Nasopharynx by MARIAN with probe detection [facility] This lab was ordered by [facility] and reported by [facility]. ID Date Data Source [id number] 06/08/2020 02:24:00 PM EDT [facility] COVID Reason [place] Admission Priority #4 Name Value Range Interpretation Code Description Data Elizabeth rce(s) Supporting Document(s) COVID 19 (RHEONIX) NOT-DETECTED NOTDETECTED [facility] The COVID testing using the Rheonix manuel [...] public health authorities. 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 Occupation: disabled Lives with: Reports [facility] PMH/PSH PMH/PSH Medical History Acute respiratory failure [...] Tenderness Extremities: negative Edema and Tenderness Skin: crime laboratory analyst reviewed and agreed with; negative Lesions and [...] MPV Gran % (Auto) Lymph % (Auto) [place] % (Auto) Eos % (Auto) Baso % (Auto) Nucleat RBC Rel Count Gran # Lymph # (Auto) [place] # (Auto) Eos # (Auto) Baso # (Auto) Immature Gran # (Auto) Absolute Nucleated RBC Immature Gran % Sodium Potassium Chloride Carbon Dioxide Anion Gap BUN Creatinine Estimated GFR (MDRD) BUN/Creatinine Ratio Glucose Calcium Total Bilirubin AST ALT Alkaline Phosphatase Total Protein Albumin Globulin Albumin/Globulin Ratio Beta HCG Screen NEGATIVE Urine Color YELLOW Urine Appearance CLEAR Urine pH 6.0 Specific [place] (Man) 1.004 Urine Protein NEGATIVE Urine Glucose [...] % (Auto) 46.6 Lymph % (Auto) 43.3 [place] % (Auto) 5.8 Eos % (Auto) 2.9 Baso % (Auto) 1.2 Nucleat RBC Rel Count N ot Reportable Gran # 3.05 Lymph # (Auto) 2.8 [place] # (Auto) 0.38 Eos # (Auto) 0.19 [...] Urine Color Urine Appearance Urine pH Specific [place] (Man) Urine Protein Urine Glucose (UA) Urine [...] charges for this visit?: Yes Inpt Consult [id number] Cons Level 4: Yes Signed By:Justin Bone Jr, MD <<Signature on File>> Signed Date/Time: 06/07/202317 Co-Signer: Co-Signed Date/Time: Initializing User: Justin Bone Jr, MD 0 06/07/202309 09 09 Name Value Range Interpretation Code Description Data Elizabeth rce(s) Supporting Document(s) ID Date Data Source [id number] 06/07/2020 09:24:00 PM [facility]T [facility] Name Value Range Interpretation Code Description Data Elizabeth rce(s) Supporting Document(s) COLOR,UR YELLOW YELLOW [facility] APPEARANCE,UR CLEAR CLEAR [facility] PH,UR 6.0 5.0-8.0 [facility] SPECIFIC GRAVITY,UR 1.004 1.002-1.035 [facility] PROTEIN,UR NEGATIVE MG/DL NEGATIVE [facility] GLUCOSE, UR NEGATIVE MG/DL NEGATIVE [facility] KETONES,UR NEGATIVE MG/DL NEGATIVE [facility] OCCULT BLOOD,UR NEGATIVE NEGATIVE [facility] NITRATE,UR NEGATIVE NEGATIVE [facility] LEUKOCYTE ESTERASE ,UR NEGATIVE NEGATIVE [facility] BILIRUBIN,UR NEGATIVE NEGATIVE [facility] UROBILINOGEN,UR 0.2-1.0 EU MG/DL NEG-0-1.0 [facility] ID Date Data Source [id number] 06/07/2020 09:30:00 PM EDT [facility] Name Value Range Interpretation Code Description Data Elizabeth rce(s) Supporting Document(s) OPIATE SCREEN POS NEGATIVE [facility] Minimum Detectable Limit is 300 ng/mL. BARBITURATE SCREEN NEG NEGATIVE [facility] Minimum Detectable Limit is 300 ng/mL. PHENCYCLIDINE SCREEN NEG NEGATIVE [facility] Minimum Detectable Limit is 25 ng/mL. AMPHETAMINE SCREEN NEG NEGATIVE [facility] Minimum Detectable Limit is 1000 mg/mL. BENZODIAZEPINE SCREEN NEG NEGATIVE [facility] Mininum Detectable Limit is 300 ng/mL. COCAINE SCREEN NEG NEGATIVE [facility] Minimum Detectable Limit is 300 ng/mL. CANNABINOID SCREEN NEG NEGATIVE [facility] Minimum Detectable limit is 50 ng/dL. HEROIN SCREEN NEG NEGATIVE [facility] Minimum Detectable limit is 10 ng/dL. A ll POSITIVE or BORDER results are unconfirmed. Please contact the laboratory if a reference testing confirmation is needed. ID Date Data Source [id number] 06/07/2020 09:32:00 PM EDT [facility] Has Patient Fasted For The Past [...] rce(s) Supporting Document(s) HCG QUALITATIVE SPECIMEN [facility] ID Date Data Source [id number] 06/07/2020 09:32:00 PM [facility]T [facility] The Past [...] Elizabeth rce(s) Supporting Document(s) HCG RESULT,S NEGATIVE [facility] Reference range is Negative "Extreme" early may have low levels of HCG present. If is suspected, repeat testing with a new specimen in 48-72 hours ID Date Data Source [id number] 06/07/2020 09:19:00 PM [facility] Has Patient Fasted For The Past [...] WHITE BLOOD COUNT 6.54 10^3/uL 4.00-10.50 N [facility] ealt RED BLOOD COUNT 3.52 10^6/uL 3.90-5.20 L [facility] th HEMOGLOBIN 10.2 G/DL 11.5-15.6 L [facility] HEMATOCRIT 30.1 % 35.0-46.0 L [facility] MCV 85.5 FL 80.0-100.0 N [facility] MCH 29.0 PG 27.0-34.0 [facility] MCHC 33.9 G/DL 32-36 N [facility] RDW 14.4 % 11.5-14.5 [facility] PLATELET COUNT 287 10^3/uL 130-400 N [facility] MPV 10.8 FL 8.7-13.2 [facility] GRAN % (AUTO) 46.6 % 42.0-75.0 N [facility] LYMPH % (AUTO) 43.3 % 20.0-51.0 N [facility] MONO % (AUTO) 5.8 % 2.0-15.0 N [facility] EOS % (AUTO) 2.9 % 0.0-11.0 N [facility] BASO % (AUTO) 1.2 % 0.0-2.0 N [facility] IG % (AUTO) 0.2 % 1.00-5.00 [facility] IG # (AUTO) 0.0 10^3/uL <0.5 [facility] GRAN # (AUTO) 3.05 10^3/uL 1.50-6.50 N [facility] LYMPH # (AUTO) 2.8 k/uL 1.0-5.0 N [facility] MONO # (AUTO) 0.38 k/uL 0.20-1.50 N [facility] EOS # (AUTO) 0.19 10^3/uL 0.00-1.10 N [facility] BASO # (AUTO) 0.08 10^3/uL 0.00-0.20 N [facility] ID Date Data Source [id number] 06/08/2020 09:14:00 AM EDT [facility] Has Patient Fasted For The Past 12 [...] Supporting Document(s) SODIUM 135 MEQ/L 135-145 N [facility] POTASSIUM 4.5 MEQ/L 3.5-5.3 N [facility] CHLORIDE 104 MEQ/L 94-110 N [facility] CARBON DIOXIDE 25 MEQ/L 22-33 N [facility] ANION GAP 11 5-16 N [facility] BLOOD UREA NITRO 12 MG/DL 7-25 N [facility] CREATININE 0.7 MG/DL 0.6-1.4 N [facility] GFR > 90.0 ML/MIN [facility] Stage G1 - Normal or high kidney functi on The GFR is an estimate of the Glomerular Filtration Rate. It is an aid to assess a patient's renal function. It is not a conclusive diagnosis of kidney disease. GFR normal is >=90 The MDRD GFR calculation is considered valid between the ages of 18 and 75 years only. BUN/CREAT RATIO 17 8-36 N [facility] GLUCOSE 89 MG/DL 70-100 N [facility] CA 8.4 MG/DL 8.7-10.5 L [facility] BILIRUBIN,TOTAL < 0.2 MG/DL 0.1-1.3 N [facility] AST 20 U/L 5-40 N [facility] ALT 28 U/L 5-48 [facility] ALKALINE PHOSPHATASE 95 U/L 40-140 [facility]th TOTAL PROTEIN 5.0 G/DL 5.9-8.3 L [facility] ALBUMIN 3.4 G/DL 3.0-5.1 N [facility] GLOBULIN 1.6 G/DL 1.5-3.5 N [facility] ALB/GLOB RATIO 2.1 G/DL 1.0-3.0 N [facility] ID Date Data Source [id number] 06/08/2020 09:14:00 AM [facility] Has Patient Fasted For The Past [...] Supporting Document(s) IRON 72 UG/DL 35-150 N [facility] TIBC 262 UG/DL 260-400 [facility] % IRON SATURATION 27.0 % 20-50 N [facility] ID Date Data Source [id number] 06/08/2020 09:14:00 AM [facility] Has Patient Fasted For The Past [...] Document(s) Vitamin D,25-HYDROXY 27.9 ng/ml 30-100 L [facility] Vitamin D Status Range De ficiency <20 ng/ml Insufficiency 20-29.9 ng/ml Sufficiency 30-100 ng/ml Toxicity >100 ng/ml Patients should not be tested for 72 hours post fluorescein dye angiography. A false elevation of result may occur. ID Date Data Source [id number] 06/08/2020 09:14:00 AM [facility] Has Patient Fasted For The Past [...] T4 (FREE THYROXINE) 0.75 NG/DL 0.76-1.[address] [facility] ID Date Data Source [id number] 06/08/2020 09:14:00 AM [facility] Has Patient Fasted For The Past [...] Supporting Document(s) T3FREE 2.1 PG/ML 2.3-4.2 L [facility] ID Date Data Source [id number] 06/08/2020 09:14:00 AM [facility] Has Patient Fasted For The Past [...] Supporting Document(s) TSH 2.950 uIU/ML 0.470-4.200 [facility] Patients should not be tested for 72 ho urs post fluorescein dye angiography. A false depression of result may occur. ID Date Data Source [id number] 06/08/2020 09:14:00 AM [facility] Has Patient Fasted For The Past [...] Document(s) SALICYLATE < 3.0 MG/DL 2.8-20.0 N [facility] ID Date Data Source [id number] 06/08/2020 09:14:00 AM [facility] Has Patient Fasted For The Past [...] Supporting Document(s) ACETAMINOPHEN 5.2 UG/ML 10-30 L [facility] High levels of N-acetylcysteine (used t o treat Acetaminophen overdose) may cause interference and cause a negative bias in the Acetaminophen result. ID Date Data Source [id number] 06/08/2020 09:14:00 AM EDT [facility] Has Patient Fasted For The Past 12 [...] Supporting Document(s) BLOOD ALCOHOL 0.00 % <0.03 [facility] ID Date Data Source [id number] 05/09/2020 03:34:00 [place] [address] HEALTH INFORMATION MANAGEMENT ED/UC Physician Report : [id number] Signed Patient: Madhavi Montalvo Acct:[id number] Unit: [id number] : 1980 Arrival Date: 05/09/20 Age/Sex: 39 [...] CT that was normal. 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 Waiting for placement current History of Smoking/Tobacco Use: Former Smoker Alcohol use: Reports History of use Drug use: Reports History of use Occupation: disabled Lives with: Reports [facility] PMH/PSH PMH/PSH Medical History Acute respiratory failure [...] Normal Affect Skin Skin exam: Dry, Intact, [place] and Warm Course Course Course Narrative: For this headache which sounds like a tension migraine, we will give her [id number] mg added to 1 bag of saline [...] 0 bisacodyl 10 mg Suppository 10 mg [place] DAILY PRN (Reason: Constipation) RF: 0 pantoprazole [...] rce(s) Supporting Document(s) ID Date Data Source [id number] 04/18/2020 10:31:00 AM EDT [facility] Run: 04/18/20 1031 INTERFACED REPORT Name: Madhavi Montalvo Age/Sex: 39/F Location: [facility] Acct: [id number] Unit: [id number] Status: REG REF Room/Bed: Re04/16/20 Disch: Att Dr: Key Scott MD Specimen #: [id number] Ordered : 04/16/2012/05/2053 Collected : 04/16/2012/05/2053 By: [...] rce(s) Supporting Document(s) ID Date Data Source [id number] 04/16/2020 03:33:00 PM EDT [facility] Name Value Range Interpretation Code Description Data Elizabeth rce(s) Supporting Document(s) Bacteria identified in Urine by Culture Laboratory test result [facility]) <content> --------</content>
<content>Run: 04/18/20 1031 INTERFACED REPORT</content>
<content> </content>
<content>Name: Madhavi Montalvo Age/Sex: 39/F Location: [facility]</content>
<content>Acct: [id number] Unit: [id number] Status: REG REF Room/Bed:</content>
<content>Re04/16/20 Disch: Att Dr: Key Scott MD</content>
<content> </content>
<content></content>
<content>Specimen #: [id number] Ordered : 04/16/2012/05/2053</content>
<content>Collected : 04/16/2012/05/2053 By: STEPHANIE Received: 04/16/2012/05/2053 By: ALBERTO</content>
<content>Source: URINE CATH Specimen Description:</content>
<content>Comments: DARENATH</content>
<content>Has been collected</content>
<content>UCC</content>
<content></content>
<content> </content>
[...] REPORT </content>
<content></content> ID Date Data Source [id number] 04/16/2020 02:13:00 PM EDT [facility] [place] Name Value Range Interpretation Code Description Data Elizabeth rce(s) Supporting Document(s) Glucose [Presence] in Urine Laboratory test result [facility] ([facility] [place]) Protein [Presence] in Urine by Test strip Laboratory test result [facility] [employer] [facility] [place]) Ua Nitrite Laboratory test result [facility] ([facility]) Ua Leuko Laboratory test result [facility] ([facility] [employer] [employer] [place]) Ketones [Presence] in Urine by Test strip Laboratory test result [facility] ([facility] [employer] [employer] [place]) Color of Urine Laboratory test result [facility] ([facility] [employer] [facility] [employer] [place]) Blood [Presence] in Urine by Visual Laboratory test result [facility] ([facility] [employer] [employer] [place]) Clarity of Urine Laboratory test result [facility] ([facility] [employer] [employer] [place]) pH of Urine by Test strip 6.0 5.0-7.5 [facility] ([facility] [place]) Ua Specific [place] 1.010 1.003-1.030 [facility] ([facility] [place]) Urobilinogen [Mass/volume] in Urine by Test strip 0.2 E.U./dL 0.0-1.0 [facility] ([facility] [employer] [facility] [employer] [place]) Bilirubin.total [Presence] in Urine by Test strip Laboratory test res ult [facility] ([facility] [place]) ID Date Data Source [id number] 04/08/2020 09:00:00 AM EDT [facility] Name Value Range Interpretation Code Description Data Elizabeth rce(s) Supporting Document(s) SARS-CoV-2 RNA Resp Ql MARIAN+probe [facility] This lab was ordered by [facility] and reported by MARICEL. ID Date Data Source [id number] 04/05/2020 08:15:00 AM EDT [facility] Name Value Range Interpretation Code Description Data Elizabeth rce(s) Supporting Document(s) WHITE BLOOD COUNT 6.63 10^3/uL 4.00-10.50 [facility] RED BLOOD COUNT 3.91 10^6/uL 3.90-5.20 N [facility] th HEMOGLOBIN 11.4 G/DL 11.5-15.6 L [facility] HEMATOCRIT 33.7 % 35.0-46.0 L [facility] MCV 86.2 FL 80.0-100.0 N [facility] MCH 29.2 PG 27.0-34.0 N [facility] MCHC 33.8 G/DL 32-36 N [facility] RDW 13.0 % 11.5-14.5 N [facility] PLATELET COUNT 213 10^3/uL 130-400 [facility] MPV 11.0 FL 8.7-13.2 N [facility] GRAN % (AUTO) 35.9 % 42.0-75.0 L [facility] LYMPH % (AUTO) 53.1 % 20.0-51.0 H [facility] MONO % (AUTO) 6.9 % 2.0-15.0 N [facility] EOS % (AUTO) 2.6 % 0.0-11.0 N [facility] BASO % (AUTO) 1.2 % 0.0-2.0 N [facility] IG % (AUTO) 0.3 % 1.00-5.00 [facility] IG # (AUTO) 0.0 10^3/uL <0.5 [facility] GRAN # (AUTO) 2.38 10^3/uL 1.50-6.50 N [facility] LYMPH # (AUTO) 3.5 k/uL 1.0-5.0 N [facility] MONO # (AUTO) 0.46 k/uL 0.20-1.50 N [facility] EOS # (AUTO) 0.17 10^3/uL 0.00-1.10 N [facility] BASO # (AUTO) 0.08 10^3/uL 0.00-0.20 N [facility] ID Date Data Source [id number] 04/05/2020 08:23:00 AM EDT [facility] Name Value Range Interpretation Code Description Data Elizabeth rce(s) Supporting Document(s) SODIUM 145 MEQ/L 135-145 N [facility] POTASSIUM 4.0 MEQ/L 3.5-5.3 N [facility] CHLORIDE 111 MEQ/L 94-110 [facility] CARBON DIOXIDE 27 MEQ/L 22-33 N [facility] ANION GAP 11 5-16 N [facility] BLOOD UREA NITRO < 5 MG/DL 7-25 L [facility] CREATININE 0.7 MG/DL 0.6-1.4 N [facility] GFR > 90.0 ML/MIN [facility] Stage G1 - Normal or high kidney functi on The GFR is an estimate of the Glomerular Filtration Rate. It is an aid to assess a patient's renal function. It is not a conclusive diagnosis of kidney disease. GFR normal is >=90 The MDRD GFR calculation is considered valid between the ages of 18 and 75 years only. BUN/CREAT RATIO 7 8-36 L [facility] GLUCOSE 81 MG/DL 70-100 N [facility] CA 8.9 MG/DL 8.7-10.5 N [facility] BILIRUBIN,TOTAL 0.2 MG/DL 0.1-1.3 N [facility] AST 14 U/L 5-40 N [facility] ALT 19 U/L 5-48 N [facility] ALKALINE PHOSPHATASE 60 U/L 40-140 N [facility] alth TOTAL PROTEIN 5.0 G/DL 5.9-8.3 [facility] ALBUMIN 3.5 G/DL 3.0-5.1 [facility] GLOBULIN 1.5 G/DL 1.5-3.5 N [facility] ALB/GLOB RATIO 2.3 G/DL 1.0-3.0 [facility] ID Date Data Source [id number] 04/03/2020 07:53:00 AM EDT [facility] Name Value Range Interpretation Code Description Data Elizabeth rce(s) Supporting Document(s) WHITE BLOOD COUNT 6.58 10^3/uL 4.00-10.50 [facility] RED BLOOD COUNT 3.61 10^6/uL 3.90-5.20 L [facility] th HEMOGLOBIN 10.7 G/DL 11.5-15.6 [facility] HEMATOCRIT 31.6 % 35.0-46.0 [facility] MCV 87.5 FL 80.0-100.0 N [facility] MCH 29.6 PG 27.0-34.0 N [facility] MCHC 33.9 G/DL 32-36 N [facility] RDW 13.0 % 11.5-14.5 [facility] PLATELET COUNT 181 10^3/uL 130-400 N [facility] MPV 11.2 FL 8.7-13.2 N [facility] GRAN % (AUTO) 44.0 % 42.0-75.0 [facility] LYMPH % (AUTO) 44.1 % 20.0-51.0 N [facility] MONO % (AUTO) 8.2 % 2.0-15.0 [facility] EOS % (AUTO) 2.6 % 0.0-11.0 [facility] BASO % (AUTO) 0.9 % 0.0-2.0 [facility] IG % (AUTO) 0.2 % 1.00-5.00 [facility] IG # (AUTO) 0.0 10^3/uL <0.5 [facility] GRAN # (AUTO) 2.90 10^3/uL 1.50-6.50 [facility] LYMPH # (AUTO) 2.9 k/uL 1.0-5.0 N [facility] MONO # (AUTO) 0.54 k/uL 0.20-1.50 N [facility] EOS # (AUTO) 0.17 10^3/uL 0.00-1.10 N [facility] BASO # (AUTO) 0.06 10^3/uL 0.00-0.20 N [facility] ID Date Data Source [id number] 04/03/2020 08:20:00 AM EDT [facility] Name Value Range Interpretation Code Description Data Elizabeth rce(s) Supporting Document(s) SODIUM 144 MEQ/L 135-145 N [facility] POTASSIUM 4.0 MEQ/L 3.5-5.3 N [facility] CHLORIDE 111 MEQ/L 94-110 H [facility] CARBON DIOXIDE 26 MEQ/L 22-33 N [facility] ANION GAP 11 5-16 N [facility] BLOOD UREA NITRO < 5 MG/DL 7-25 L [facility] CREATININE 0.7 MG/DL 0.6-1.4 N [facility] GFR > 90.0 ML/MIN [facility] Stage G1 - Normal or high kidney functi on The GFR is an estimate of the Glomerular Filtration Rate. It is an aid to assess a patient's renal function. It is not a conclusive diagnosis of kidney disease. GFR normal is >=90 The MDRD GFR calculation is considered valid between the ages of 18 and 75 years only. BUN/CREAT RATIO 7 8-36 L [facility] GLUCOSE 86 MG/DL 70-100 N [facility] CA 8.3 MG/DL 8.7-10.5 L [facility] BILIRUBIN,TOTAL 0.2 MG/DL 0.1-1.3 N [facility] AST 17 U/L 5-40 N [facility] ALT 23 U/L 5-48 N [facility] ALKALINE PHOSPHATASE 56 U/L 40-140 N [facility] alth TOTAL PROTEIN 4.6 G/DL 5.9-8.3 L [facility] ALBUMIN 3.1 G/DL 3.0-5.1 N [facility] GLOBULIN 1.5 G/DL 1.5-3.5 N [facility] ALB/GLOB RATIO 2.1 G/DL 1.0-3.0 N [facility] ID Date Data Source [id number] 04/02/2020 12:24:00 PM EDT [facility] [address] [place] [address] HEALTH INFORMATION MANAGEMENT Discharge Summary : [id number] Signed Patient: Madhavi Montalvo Acct:[id number] Un it: [id number] : 1980 Loc: [facility] Room/Bed: 311-A Age/Sex: 39 / F ADM Date: 03/28/20 cc: *[facility] PCP,No Discharge Summary/Exam Discharge Date: [...] existing Martínez catheter. [facility] to [facility] from [facility] she had complained of cough and shortness [...] Patient considered low suspicion Screening completed per terminal carman care request prior to return Negative 03/30/2020 [...] Tenderness Extremities: negative Clubbing and Edema Skin: [place] and Warm Neurological: Awake/Oriented, Cranial nerves 3-12 [...] 0 bisacodyl 10 mg Suppository 10 mg [place] DAILY PRN (Reason: Constipation) RF: 0 pantoprazole [...] Acute Headache (DC) Additional Instruction/Plan of Treatment: [facility] Transfer Facility Name Transferring to: [facility] Date of Admission: 03/28/20 Date of Discharge: [...] Tenderness Extremities: negative Clubbing and Edema Skin: [place] and Warm Neurological: Awake/Oriented, Cranial nerves 3-12 [...] (Routine); Ordered 04/02/20 Ordered By: Samina Dixon [facility] REVIEWED Did you review [facility] this visit?: Yes Tobacco Use:Preventative Care/Screening Performance [...] GROWTH AFTER 5 DAYS 03/30/20 09:00 Urine,Catheterized [place] Count - Final 03/30/20 09:00 Urine,Catheterized Urine Culture - Final Escherichia Coli Klebsiella Pneumoniae 03/28/20 09:47 Urine,Clean Catch [place] Count - Final 03/28/20 09:47 Urine,Clean Catch Urine Culture - Final Lab Results Entire visit 04/02/20 04/02/20 04/01/20 06:41 06:41 07:15 WBC 6.04 RBC 3.49 L Hgb 10.5 L Hct 31.2 L MCV 89.4 MCH 30.1 MCHC 33.7 RDW 13.2 Plt Count 185 MPV 10.9 Gran % (Auto) 41.7 L Lymph % (Auto) 47.0 [place] % (Auto) 7.1 Eos % (Auto) 3.0 Baso % (Auto) 1.0 Nucleat RBC Rel Count Not Reportable Gran # 2.52 Lymph # (Auto) 2.8 [place] # (Auto) 0.43 Eos # (Auto) 0.18 [...] Urine Color Urine Appearance Urine pH Specific [place] (Man) Urine Protein Urine Glucose (UA) Urine [...] L Lymph % (Auto) 47.1 52.1 H [place] % (Auto) 7.3 7.4 Eos % (Auto) 3.1 2.3 Baso % (Auto) 0.5 0.9 Nucleat RBC Rel Count Not Reportable Not Reportable Gran # 2.29 2.10 Lymph # (Auto) 2.6 3.0 [place] # (Auto) 0.40 0.42 Eos # (Auto) [...] Urine Color Urine Appearance Urine pH Specific [place] (Man) Urine Protein Urine Glucose (UA) Urine [...] 36.7 L Lymph % (Auto) 51.7 H [place] % (Auto) 7.5 Eos % (Auto) 2.4 Baso % (Auto) 1.5 Nucleat RBC Rel Count Not Reportable Gran # 1.96 Lymph # (Auto) 2.8 [place] # (Auto) 0.40 Eos # (Auto) 0.13 [...] Urine Appearance CLEAR Urine pH 6.5 Specific [place] (Man) 1.005 Urine Protein NEGATIVE Urine Glucose (UA) NEGATIVE Urine Ketones NEGATIVE Urine Occult Blood TRACE H Urine Nitrate POSITIVE H Urine Bilirubin NEGATIVE Urine Urobilinogen 0.2-1.0 Ur Leukocyte Esterase MODERATE H Urine WBC (Auto) 5-9 H Urine RBC (Auto) 1-2 Urine Bacteria (Auto) FEW Ur Epithelial Cells RARE Urine Mucus COVID-03/28/20 03/28/20 03/28/20 09:47 09:47 09:47 WBC RBC Hgb Hct MCV MCH MCHC RDW Plt Count MPV Gran % (Auto) Lymph % (Auto) [place] % (Auto) Eos % (Auto) Baso % (Auto) Nucleat RBC Rel Count Gran # Lymph # (Auto) [place] # (Auto) Eos # (Auto) Baso # [...] Appearance CLOUDY H Urine pH 6.0 Specific [place] (Man) 1.006 Urine Protein NEGATIVE Urine Glucose (UA) NEGATIVE Urine Ketones NEGATIVE Urine Occult Blood NEGATIVE Urine Nitrate NEGATIVE Urine Bilirubin NEGATIVE Urine Urobilinogen 0.2-1.0 Ur Leukocyte Esterase SMALL H Urine WBC (Auto) 25- 49 H Urine RBC (Auto) 1-2 Urine Bacteria (Auto) MODERATE H Ur Epithelial Cells MODERATE Urine Mucus RARE COVID-03/28/20 03/28/20 03/28/20 09:47 09:47 09:47 WBC 6.76 RBC 4.54 Hgb 13.4 Hct 40.0 MCV 88.1 MCH 29.5 MCHC 33.5 RDW 13.2 Plt Count 231 MPV 10.9 Gran % (Auto) 50.4 Lymph % (Auto) 38.6 [place] % (Auto) 7.8 Eos % (Auto) 1.9 Baso % (Auto) 1.0 Nucleat RBC Rel Count Not Reportable Gran # 3.40 Lymph # (Auto) 2.6 [place] # (Auto) 0.53 Eos # (Auto) 0.13 [...] Urine Color Urine Appearance Urine pH Specific [place] (Man) Urine Protein Urine Glucose (UA) Urine Ketones Urine Occult Blood Urine Nitrate Urine Bilirubin Urine Urobilinogen Ur Leukocyte Esterase Urine WBC (Auto) Urine RBC (Auto) Urine Bacteria (Auto) Ur Epithelial Cells Urine Mucus COVID-19 PCR Hospitalist Charges Worksheet Subject to change for billing criteria Did you complete your Hospitalist charges for this visit?: Yes Inpatient [address] Hosp Discharge Day-greater than 30 minutes: Yes Signed By:Samina GARCIA <<Signature on File>> Signed Date/Time: 04/02/20 1254 Co-Signer: Marlon Nichols MD Co-Signed Date/Time: 04/02/20 1542 Initializing User: Samina GARCIA 04/02/20 1224 1224 1224 Name Value Range Interpretation Code Description Data Elizabeth rce(s) Supporting Document(s) ID Date Data Source [id number] 04/02/2020 12:24:00 [place] [address] HEALTH INFORMATION MANAGEMENT Discharge Plan : [id number] Signed Patient: Madhavi Montalvo Acct:[id number] Un it: [id number] : 1980 Loc: [facility] Room/Bed: 311-A Age/Sex: 39 / F ADM [...] 0 bisacodyl 10 mg Suppository 10 mg [place] DAILY PRN (Reason: Constipation) RF: 0 pantoprazole [...] Acute Headache (DC) Additional Instruction/Plan of Treatment: [facility] Transfer Facility Name Transferring to: [facility] Date of Admission: 03/28/20 Date of Discharge: [...] Tenderness Extremities: negative Clubbing and Edema Skin: [place] and Warm Neurological: Awake/Oriented, Cranial nerves 3-12 [...] rce(s) Supporting Document(s) ID Date Data Source [id number] 04/02/2020 07:33:00 AM EDT [facility] Name Value Range Interpretation Code Description Data Elizabeth rce(s) Supporting Document(s) WHITE BLOOD COUNT 6.04 10^3/uL 4.00-10.50 N [facility] RED BLOOD COUNT 3.49 10^6/uL 3.90-5.20 L [facility] HEMOGLOBIN 10.5 G/DL 11.5-15.6 [facility] HEMATOCRIT 31.2 % 35.0-46.0 L [facility] MCV 89.4 FL 80.0-100.0 N [facility] MCH 30.1 PG 27.0-34.0 N [facility] MCHC 33.7 G/DL 32-36 [facility] RDW 13.2 % 11.5-14.5 [facility] PLATELET COUNT 185 10^3/uL 130-400 [facility] MPV 10.9 FL 8.7-13.2 N [facility] GRAN % (AUTO) 41.7 % 42.0-75.0 L [facility] LYMPH % (AUTO) 47.0 % 20.0-51.0 N [facility] MONO % (AUTO) 7.1 % 2.0-15.0 [facility] EOS % (AUTO) 3.0 % 0.0-11.0 N [facility] BASO % (AUTO) 1.0 % 0.0-2.0 [facility] IG % (AUTO) 0.2 % 1.00-5.00 [facility] IG # (AUTO) 0.0 10^3/uL <0.5 [facility] GRAN # (AUTO) 2.52 10^3/uL 1.50-6.50 N [facility] LYMPH # (AUTO) 2.8 k/uL 1.0-5.0 N [facility] MONO # (AUTO) 0.43 k/uL 0.20-1.50 N [facility] EOS # (AUTO) 0.18 10^3/uL 0.00-1.10 N [facility] BASO # (AUTO) 0.06 10^3/uL 0.00-0.20 N [facility] ID Date Data Source [id number] 04/02/2020 07:58:00 AM EDT [facility] Name Value Range Interpretation Code Description Data Elizabeth rce(s) Supporting Document(s) SODIUM 143 MEQ/L 135-145 N [facility] POTASSIUM 3.9 MEQ/L 3.5-5.3 [facility] CHLORIDE 110 MEQ/L 94-110 [facility] CARBON DIOXIDE 27 MEQ/L 22-33 N [facility] ANION GAP 10 5-16 [facility] BLOOD UREA NITRO 6 MG/DL 7-25 L [facility] CREATININE 0.7 MG/DL 0.6-1.4 N [facility] GFR > 90.0 ML/MIN [facility] Stage G1 - Normal or high kidney functi on The GFR is an estimate of the Glomerular Filtration Rate. It is an aid to assess a patient's renal function. It is not a conclusive diagnosis of kidney disease. GFR normal is >=90 The MDRD GFR calculation is considered valid between the ages of 18 and 75 years only. BUN/CREAT RATIO 8 8-36 N [facility] GLUCOSE 88 MG/DL 70-100 N [facility] CA 8.4 MG/DL 8.7-10.5 L [facility] ID Date Data Source [id number] 04/01/2020 10:12:00 AM EDT [address] [address] HEALTH INFORMATION MANAGEMENT PCM-Progress Note : [id number] Signed Patient: Madhavi Montalvo Acct:[id number] it: [id number] : 1980 Loc: [facility] Room/Bed: 311-A Age/Sex: 39 / F ADM [...] existing Martínez catheter. Prior to discharge from [facility] she had complained of cough and shortness [...] If unremarkable, plan to discharge back to [facility] anticipated. Review of Systems: General: Positive Fatigue [...] 100 ml @ 200 mls/hr IV Q6H [facility] Rx#: [id number] Oral [birth year] 1580 / 1580 480 / 480 Output: Output, Indwelling Catheter 2200 / 2200 2650 / 2650 1250 / 1250 Amount Other: Total, Intake Amount 100 500 480 Date of Last Bowel Movement 03/30/20 03/30/20 Bowel Movement Amount Medium Total, Output Amount [id number] Voiding Method Indwelling Catheter Indwelling Catheter # [...] Tenderness Extremities: negative Clubbing and Edema Skin: [place] and Warm Neurological: Awake/Oriented, Cranial nerves 3-12 [...] by: Hydrocodone Bitart/Acetaminophen (Lortab 5/325 Tablet (Vicodin, Gerber)) 1 tab PO Q6HPRN PRN PRN Reason: UNBEARABLE PAIN LEVEL 10 Last Admin: 04/01/20 09:20 Dose: 1 tab Documented by: Al Hydroxide/Mg [place] xide (Maalox Plus Susp (Liquid Antacid)) 15 [...] HCl (Buspar Tablet) 10 mg PO BID [facility] Last Admin: 04/01/20 09:20 Dose: 10 mg Documented by: Duloxetine HCl (Cymbalta Capsule) 60 mg PO DAILY [facility] Last Admin: 04/01/20 09:20 Dose: 60 mg Documented by: Enoxaparin Sodium (Lovenox Inj) 40 mg SUBCUTAN Q24H [facility] Last Admin: 03/31/20 18:51 Dose: 40 mg Documented by: Escitalopram Oxalate (Lexapro Tablet) 5 mg PO DAILY [facility] Last Admin: 04/01/20 09:22 Dose: 5 mg Documented by: Folic Acid (Folic Acid Tablet) 1 mg PO DAILY [facility] Last Admin: 04/01/20 09:22 Dose: 1 mg Documented by: Gabapentin (Neurontin Capsule) 200 mg PO TID [facility] Last Admin: 04/01/20 09:19 Dose: 200 mg Documented by: Guaifenesin (Robitussin Plain Syrup Ud Cup) 200 mg PO Q4HPRN PRN PRN Reason: COUGH Hydroxychloroquine Sulfate (Plaquenil Tablet) 200 mg PO DAILY [facility] Last Admin: 04/01/20 09:20 Dose: 200 mg Documented by: Ketorolac Tromethamine (Toradol Injection) 30 mg IV Q6H PRN PRN Reason: MODERATE PAIN LEVEL 4-6 Stop: 04/05/20 14:48 Levetiracetam (Keppra Tablet) 500 mg PO BID [facility] Last Admin: 04/01/20 09:21 Dose: 500 mg Documented by: Loperamide HCl (Imodium Capsule) 2 mg PO Q6HPRN PRN PRN Reason: DIARRHEA Magnesium Hydroxide (Milk Of Magnesia Susp Ud-Cup) 30 ml PO DAILYPRN PRN PRN Reason: CONSTIPATION Metoprolol Tartrate (Lopressor Tablet) 50 mg PO BID [facility] Last Admin: 04/01/20 09:24 Dose: 50 mg Documented by: Ondansetron HCl (Zofran Injection) 4 mg IV PUSH Q4HPRN PRN PRN Reason: NAUSEA / VOMITING Pantoprazole Sodium (Protonix Tablet) 40 mg PO DAILY@0600-EMPTYSTOM [facility] Last Admin: 04/01/20 05:46 Dose: 40 mg Documented by: Promethazine HCl (Phenergan Injection) 25 mg IM Q6HPRN PRN PRN Reason: HEADACHE Last Admin: 03/31/20 02:43 Dose: 25 mg Documented by: Saccharomyces Boulardii (Florastor Cap) 250 mg PO BID [facility] Last Admin: 04/01/20 09:21 Dose: 250 mg Documented by: Senna (Senokot (Senna) 8.6 Mg Tablet) 2 tab PO BID [facility] Last Admin: 04/01/20 09:23 Dose: 2 tab Documented by: Sodium Chloride (Saline Lock Flush Protocol) 1 each IV FLUSH QSHIFT [facility] Last Admin: 04/01/20 09:29 Dose: 1 each Documented by: Sumatriptan Succinate (Imitrex Tablet) 50 mg PO Q2HPRN PRN PRN Reason: Migraine Headache Last Admin: 03/31/20 01:49 Dose: 50 mg Documented by: Thiamine HCl (Vitamin B-1 Tablet) 100 mg PO DAILY [facility] Last Admin: 04/01/20 09:20 Dose: 100 mg Documented by: Throat Lozenges (Chloraseptic Throat Pierson) 1 applic MUC MEMB Q2HPRN PRN PRN Reason: SORE THROAT Tiotropium [place] (Spiriva Inhaler) 1 inhalation INHALATION RT-DAILY [facility] Last Admin: 04/01/20 07:36 Dose: Not Given Documented by: Trazodone HCl (Desyrel Tablet) 50 mg PO HS [facility] Last Admin: 03/31/20 21:24 Dose: 50 mg Documented by: Result Diagrams: 04/01/20 07:15 04/01/20 07:15 Lab Results: Microbiology (Last 12 Hour Results- Final) 03/30/20 09:00 Urine,Catheterized [place] Count - Final Laboratory (Last 12 hours Results) 04/01/20 04/01/20 07:15 07:15 WBC 5.50 RBC 3.58 L Hgb 10.6 L Hct 31.5 L MCV 88.0 MCH 29.6 MCHC 33.7 RDW 13.2 Plt Count 180 MPV 10.9 Gran % (Auto) 41.6 L Lymph % (Auto) 47.1 [place] % (Auto) 7.3 Eos % (Auto) 3.1 Baso % (Auto) 0.5 Nucleat RBC Rel Count Not Reportable Gran # 2.29 Lymph # (Auto) 2.6 [place] # (Au to) 0.40 Eos # (Auto) [...] Patient considered low suspicion Screening completed per senior care care request prior to return Negative 03/30/2020 [...] Hospitalist charges for this visit?: Yes Inpatient [id number] Subsequent INpt-Mod (less than/equal 25 minutes): Yes Signed By:Samina GARCIA <<Signature on File>> Signed Date/Time: 04/01/20 1021 Co-Signer: Co-Signed Date/Time: Initializing User: Samina GARCIA 04/01/20 1012 1012 1012 Name Value Range Interpretation Code Description Data Elizabeth rce(s) Supporting Document(s) ID Date Data Source [id number] 04/01/2020 07:58:00 AM EDT [facility] Name Value Range Interpretation Code Description Data Elizabeth rce(s) Supporting Document(s) WHITE BLOOD COUNT 5.50 10^3/uL 4.00-10.50 N [facility] RED BLOOD COUNT 3.58 10^6/uL 3.90-5.20 L [facility] th HEMOGLOBIN 10.6 G/DL 11.5-15.6 L [facility] HEMATOCRIT 31.5 % 35.0-46.0 L [facility] MCV 88.0 FL 80.0-100.0 [facility] MCH 29.6 PG 27.0-34.0 [facility] MCHC 33.7 G/DL 32-36 N [facility] RDW 13.2 % 11.5-14.5 N [facility] PLATELET COUNT 180 10^3/uL 130-400 N [facility] MPV 10.9 FL 8.7-13.2 N [facility] GRAN % (AUTO) 41.6 % 42.0-75.0 L [facility] LYMPH % (AUTO) 47.1 % 20.0-51.0 N [facility] MONO % (AUTO) 7.3 % 2.0-15.0 N [facility] EOS % (AUTO) 3.1 % 0.0-11.0 N [facility] BASO % (AUTO) 0.5 % 0.0-2.0 N [facility] IG % (AUTO) 0.4 % 1.00-5.00 [facility] IG # (AUTO) 0.0 10^3/uL <0.5 [facility] GRAN # (AUTO) 2.29 10^3/uL 1.50-6.50 N [facility] LYMPH # (AUTO) 2.6 k/uL 1.0-5.0 N [facility] MONO # (AUTO) 0.40 k/uL 0.20-1.50 N [facility] EOS # (AUTO) 0.17 10^3/uL 0.00-1.10 N [facility] BASO # (AUTO) 0.03 10^3/uL 0.00-0.20 N [facility] ID Date Data Source [id number] 04/01/2020 08:20:00 AM EDT [facility] Name Value Range Interpretation Code Description Data Elizabeth rce(s) Supporting Document(s) SODIUM 143 MEQ/L 135-145 N [facility] POTASSIUM 4.0 MEQ/L 3.5-5.3 N [facility] CHLORIDE 112 MEQ/L 94-110 H [facility] CARBON DIOXIDE 26 MEQ/L 22-33 N [facility] ANION GAP 9 5-16 N [facility] BLOOD UREA NITRO 7 MG/DL 7-25 N [facility] CREATININE 0.6 MG/DL 0.6-1.4 N [facility] GFR > 90.0 ML/MIN [facility] Stage G1 - Normal or high kidney functi on The GFR is an estimate of the Glomerular Filtration Rate. It is an aid to assess a patient's renal function. It is not a conclusive diagnosis of kidney disease. GFR normal is >=90 The MDRD GFR calculation is considered valid between the ages of 18 and 75 years only. BUN/CREAT RATIO 11 8-36 N [facility] GLUCOSE 94 MG/DL 70-100 N [facility] CA 8.5 MG/DL 8.7-10.5 L [facility] ID Date Data Source [id number] 03/31/2020 02:35:00 PM EDT [facility] [address] [address] HEALTH INFORMATION MANAGEMENT PCM-Progress Note : [id number] Signed Patient: Madhavi Montalvo Acct:[id number] Un it: [id number] : 1980 Loc: [facility] Room/Bed: 311-A Age/Sex: 39 / F ADM [...] existing Martínez catheter. [facility] had complained of cough and shortness [...] 100 ml @ 200 mls/hr IV Q6H [facility] Rx#: [id number] Oral 600 / 600 1960 / 1962 [...] Tenderness Extremities: negative Clubbing and Edema Skin: [place] and Warm Neurological: Awake/Oriented, Cranial nerves 3-12 [...] by: Hydrocodone Bitart/Acetaminophen (Lortab 5/325 Tablet (Vicodin, Gerber)) 1 tab PO Q6HPRN PRN PRN Reason: UNBEARABLE PAIN LEVEL 10 Last Admin: 03/31/20 09:52 Dose: 1 tab Documented by: Al Hydroxide/Mg Hydroxide (Maalox Plus Susp (Liquid Antacid)) 15 ml PO Q4HPRN PRN PRN Reason: Indigestion Albuterol Sulfate (Ventolin Aerosol) 2.5 mg INHALATION QIDPRN PRN PRN Reason: Wheezing Amoxicillin/Clavulanate Potassium (Augmentin 875 Mg Tablet) 1 tab PO BID [facility]; Protocol Last Admin: 03/31/20 09:47 Dose: 1 tab Documented by: Buspirone HCl (Buspar Tablet) 10 mg PO BID [facility] Last Admin: 03/31/20 09:28 Dose: 10 mg Documented by: Duloxetine HCl (Cymbalta Capsu le) 60 mg PO DAILY [facility] Last Admin: 03/31/20 09:48 Dose: 60 mg Documented by: Enoxaparin Sodium (Lovenox Inj) 40 mg SUBCUTAN Q24H [facility] Last Admin: 03/30/20 18:05 Dose: 40 mg Documented by: Escitalopram Oxalate (Lexapro Tablet) 5 mg PO DAILY [facility] Last Admin: 03/31/20 09:30 Dose: 5 mg Documented by: Folic Acid (Folic Acid Tablet) 1 mg PO DAILY [facility] Last Admin: 03/31/20 09:29 Dose: 1 mg Documented by: Gabapentin (Neurontin Capsule) 200 mg PO TID [facility] Last Admin: 03/31/20 09:30 Dose: 200 mg Documented by: Guaifenesin (Robitussin Plain Syrup Ud Cup) 200 mg PO Q4HPRN PRN PRN Reason: COUGH Hydroxychloroquine Sulfate (Plaquenil Tablet) 200 mg PO DAILY [facility] Last Admin: 03/31/20 09:47 Dose: 200 mg Documented by: Levetiracetam (Keppra Tablet) 500 mg PO BID [facility] Last Admin: 03/31/20 09:28 Dose: 500 mg Documented by: Loperamide HCl (Imodium Capsule) 2 mg PO Q6HPRN PRN PRN Reason: DIARRHEA Magnesium Hydroxide (Milk Of Magnesia Susp Ud-Cup) 30 ml PO DAILYPRN PRN PRN Reason: CONSTIPATION Metoprolol Tartrate (Lopressor Tablet) 50 mg PO BID [facility] Last Admin: 03/31/20 09:29 Dose: 50 mg Documented by: Ondansetron HCl (Zofran Injection) 4 mg IV PUSH Q4HPRN PRN PRN Reason: NAUSEA / VOMITING Pantoprazole Sodium (Protonix Tablet) 40 mg PO DAILY@0600-EMPTYSTOM [facility] Last Admin: 03/31/20 05:38 Dose: 40 mg Documented by: Promethazine HCl (Phenergan Injection) 25 mg IM Q6HPRN PRN PRN Reason: HEADACHE Last Admin: 03/31/20 02:43 Dose: 25 mg Documented by: Saccharomyces Boulardii (Florastor Cap) 250 mg PO BID [facility] Last Admin: 03/31/20 09:31 Dose: 250 mg Documented by: Senna (Senokot (Senna) 8.6 Mg Tablet) 2 tab PO BID [facility] Last Admin: 03/31/20 09:27 Dose: 2 tab Documented by: Sodium Chloride (Saline Lock Flush Protocol) 1 each IV FLUSH QSHIFT [facility] Last Admin: 03/31/20 09:48 Dose: 1 each Documented by: Sumatriptan Succinate (Imitrex Tablet) 50 mg PO Q2HPRN PRN PRN Reason: Migraine Headache Last Admin: 03/31/20 01:49 Dose: 50 mg Documented by: Thiamine HCl (Vitamin B-1 Tablet) 100 mg PO DAILY [facility] Last Admin: 03/31/20 09:27 Dose: 100 mg Documented by: Throat Lozenges (Chloraseptic Throat Pierson) 1 applic MUC MEMB Q2HPRN PRN PRN Reason: SORE THROAT Tiotropium Luning (Spiriva Inhaler) 1 inhalation INHALATION RT-DAILY [facility] Last Admin: 03/31/20 09:33 Dose: Not Given Documented by: Trazodone HCl (Desyrel Tablet) 50 mg PO HS [facility] Last Admin: 03/30/20 20:35 Dose: 50 mg Documented by: Result Diagrams: 03/31/20 06:27 05/16/20 06:27 Lab Results: Microbiology (Last 12 Hour Results- Final) 03/30/20 09:00 Urine,Catheterized [place] Count - Final Laboratory (Last 12 hours Results) 03/31/20 03/31/20 06:27 06:27 WBC 5.66 RBC 3.69 L Hgb 10.8 L Hct 31.6 L MCV 85.6 MCH 29.3 MCHC 34.2 RDW 13.2 Plt Count 165 MPV 11.3 Gran % (Auto) 37.1 L Lymph % (Auto) 52.1 H [place] % (Auto) 7.4 Eos % (Auto) 2.3 Baso % (Auto) 0.9 Nucleat RBC Rel Count Not Reportable Gran # 2.10 Lymph # (Auto) 3.0 [place] # (Auto) 0.42 Eos # (Auto) 0.13 [...] and cervical spine on Thursday (3) Suspected 2018 novel coronavirus infection: Code(s): Z20.828 - Contact with and (suspected) exposure to other viral communicable diseases Status: Acute Present on Admission: Yes Plan: Patient considered low suspicion Screening completed per terminal carman care request prior to return Negative 03/30/2020 [...] Hospitalist charges for this visit?: Yes Inpatient 46730 Subsequent INpt-Mod (less than/equal 25 minutes): Yes Signed By:Samina GARCIA <<Signature on File>> Signed Date/Time: 03/31/20 1454 Co-Signer: Co-Signed Date/Time: Initializing User: Samina GARCIA [id number] 143 Name Value Range Interpretation Code Description Data Elizabeth rce(s) Supporting Document(s) ID Date Data Source [id number] 03/31/2020 11:59:00 AM EDT [address] [address] Patient Name: Madhavi Montalvo Exam Date: 03/31/20 : 1980 Ordering Doctor: Samina GARCIA Attending Doctor: Samina GARCIA CC[facility] CERVICAL SPINE WITHOUT CONTRAST CLINICAL [...] cervical spine MRI. Professional interpretation performed at [facility] . End of diagnostic report: [id number] Signed: Callum Jackson MD 04/02/20 1203 Interpreted by: Marilyn Jacksonbed by: Callum Jackson Name Value Range Interpretation Code Description Data Elizabeth rce(s) Supporting Document(s) ID Date Data Source [id number] 03/31/2020 11:59:00 [place] [address] Patient Name: Madhavi Montalvo Exam Date: 03/31/20 : 1980 Ordering Doctor: Samina GARCIA Attending Doctor: Samina GARCIA CC: [facility] BRAIN WITHOUT CONTRAST CLINICAL STATEMENT: [...] Normal brain MRI. Professional interpretation performed at [facility] . End of diagnostic report: [id number] Signed: Callum Jackson MD 04/02/20 1202 Interpreted by: Dez Jackson by: Renetta, Callum Name Value Range Interpretation Code Description Data Elizabeth rce(s) Supporting Document(s) ID Date Data Source [id number] 03/31/2020 07:35:00 AM EDT [facility] Name Value Range Interpretation Code Description Data Elizabteh rce(s) Supporting Document(s) WHITE BLOOD COUNT 5.66 10^3/uL 4.00-10.50 N [facility] RED BLOOD COUNT 3.69 10^6/uL 3.90-5.20 [facility] HEMOGLOBIN 10.8 G/DL 11.5-15.6 L [facility] HEMATOCRIT 31.6 % 35.0-46.0 L [facility] MCV 85.6 FL 80.0-100.0 N [facility] MCH 29.3 PG 27.0-34.0 N [facility] MCHC 34.2 G/DL 32-36 N [facility] RDW 13.2 % 11.5-14.5 N [facility] PLATELET COUNT 165 10^3/uL 130-400 N [facility] MPV 11.3 FL 8.7-13.2 N [facility] GRAN % (AUTO) 37.1 % 42.0-75.0 L [facility] LYMPH % (AUTO) 52.1 % 20.0-51.0 H [facility] MONO % (AUTO) 7.4 % 2.0-15.0 N [facility] EOS % (AUTO) 2.3 % 0.0-11.0 N [facility] BASO % (AUTO) 0.9 % 0.0-2.0 N [facility] IG % (AUTO) 0.2 % 1.00-5.00 [facility] IG # (AUTO) 0.0 10^3/uL <0.5 [facility] GRAN # (AUTO) 2.10 10^3/uL 1.50-6.50 N [facility] LYMPH # (AUTO) 3.0 k/uL 1.0-5.0 N [facility] MONO # (AUTO) 0.42 k/uL 0.20-1.50 N [facility] EOS # (AUTO) 0.13 10^3/uL 0.00-1.10 N [facility] BASO # (AUTO) 0.05 10^3/uL 0.00-0.20 N [facility] ID Date Data Source [id number] 03/31/2020 07:59:00 AM EDT [facility] Name Value Range Interpretation Code Description Data Elizabeth rce(s) Supporting Document(s) SODIUM 143 MEQ/L 135-145 N [facility] POTASSIUM 4.3 MEQ/L 3.5-5.3 N [facility] CHLORIDE 111 MEQ/L 94-110 [facility] CARBON DIOXIDE 25 MEQ/L 22-33 N [facility] ANION GAP 11 5-16 N [facility] BLOOD UREA NITRO 7 MG/DL 7-25 N [facility] CREATININE 0.7 MG/DL 0.6-1.4 N [facility] GFR > 90.0 ML/MIN [facility] Stage G1 - Normal or high kidney functi on The GFR is an estimate of the Glomerular Filtration Rate. It is an aid to assess a patient's renal function. It is not a conclusive diagnosis of kidney disease. GFR normal is >=90 The MDRD GFR calculation is considered valid between the ages of 18 and 75 years only. BUN/CREAT RATIO 10 8-36 N [facility] GLUCOSE 79 MG/DL 70-100 N [facility] CA 8.6 MG/DL 8.7-10.5 L [facility] ID Date Data Source [id number] 03/30/2020 12:54:00 PM EDT [address] [address] HEALTH INFORMATION MANAGEMENT PCM-Progress Note : [id number] Signed Patient: Madhavi Montalvo Acct:[id number] it: [id number] : 1980 Loc: ICU Room/Bed: ICU7-A Age/Sex: [...] existing Martínez catheter. Prior to discharge from [facility] she had complained of cough and shortness [...] ml @ 400 mls/hr IV ONCE ONE Rx#:[id number] Sodium Chloride 0.9% Infusion 1 1000 / 1000 ,000 ml @ 999 mls/hr IV ONCE ONE Rx#:[id number] Oral 120 / 120 600 / 600 880 / 880 Output: Urine 750 / 750 Output, Indwelling Catheter 850 / 850 150 / 150 1050 / 1050 Amount Other: Total, Intake Amount 120 480 400 Date of Last Bowel Movement 03/27/20 03/27/20 Total, Output Amount [phone] Voiding Method Indwelling Catheter Indwelling Catheter Weight [...] Tenderness Extremities: negative Clubbing and Edema Skin: [place] and Warm Neurological: Awake/Oriented, Cranial nerves 3-12 [...] HCl (Buspar Tablet) 10 mg PO BID [facility] Last Admin: 03/30/20 08:49 Dose: 10 mg Documented by: Duloxetine HCl (Cymbalta Capsule) 60 mg PO DAILY [facility] Last Admin: 03/30/20 08:49 Dose: 60 mg Documented by: Enoxaparin Sodium (Lovenox Inj) 40 mg SUBCUTAN Q24H [facility] Last Admin: 03/29/20 17:32 Dose: 40 mg Documented by: Escitalopram Oxalate (Lexapro Tablet) 5 mg PO DAILY [facility] Last Admin: 03/30/20 08:50 Dose: 5 mg Documented by: Folic Acid (Folic Acid Tablet) 1 mg PO DAILY [facility] Last Admin: 03/30/20 08:51 Dose: 1 mg Documented by: Gabapentin (Neurontin Capsule) 200 mg PO TID [facility] Last Admin: 03/30/20 08:48 Dose: 200 mg Documented by: Guaifenesin (Robitussin Plain Syrup Ud Cup) 200 mg PO Q4HPRN PRN PRN Reason: COUGH Hydroxychloroquine Sulfate (Plaquenil Tablet) 200 mg PO DAILY [facility] Last Admin: 03/30/20 08:48 Dose: 200 mg Documented by: Imipenem/Cilastatin Sodium 500 (mg/ Sodium Chloride) 100 mls @ 200 mls/hr IV Q6H [facility] Last Admin: 03/30/20 12:15 Dose: 200 mls/hr Documented by: Ketorolac Tromethamine (Toradol Injection) 30 mg IV Q6H PRN PRN Reason: SEVERE PAIN LEVEL 7-9 Stop: 04/03/20 13:37 Last Admin: 03/30/20 06:37 Dose: 30 mg Documented by: Levetiracetam (Keppra Tablet) 500 mg PO BID [facility] Last Admin: 03/30/20 08:49 Dose: 500 mg Documented by: Loperamide HCl (Imodium Capsule) 2 mg PO Q6HPRN PRN PRN Reason: DIARRHEA Magnesium Hydroxide (Milk Of Magnesia Susp Ud-Cup) 30 ml PO DAILYPRN PRN PRN Reason: CONSTIPATION M etoprolol Tartrate (Lopressor Tablet) 50 mg PO BID [facility] Miscellaneous Medication (Methotrexate Sodium [Trexall]) 7.5 mg PO Q7DAYS [facility] Ondansetron HCl (Zofran Injection) 4 mg IV PUSH Q4HPRN PRN PRN Reason: NAUSEA / VOMITING Pantoprazole Sodium (Protonix Tablet) 40 mg PO DAILY@0600-EMPTYSTOM [facility] Last Admin: 03/30/20 06:37 Dose: 40 mg Documented by: Senna (Senokot (Senna) 8.6 Mg Tablet) 2 tab PO BID [facility] Last Admin: 03/30/20 08:50 Dose: 2 tab Documented by: Sodium Chloride (Saline Lock Flush Protocol) 1 each IV FLUSH QSHIFT [facility] Last Admin: 03/30/20 08:51 Dose: 1 each Documented by: Sumatriptan Succinate (Imitrex Tablet) 50 mg PO Q2HPRN PRN PRN Reason: Migraine Headache Last Admin: 03/30/20 12:14 Dose: 50 mg Documented by: Thiamine HCl (Vitamin B-1 Tablet) 100 mg PO DAILY [facility] Last Admin: 03/30/20 08:50 Dose: 100 mg Documented by: Throat Lozenges (Chloraseptic Throat Pierson) 1 applic MUC MEMB Q2HPRN PRN PRN Reason: SORE THROAT Tiotropium [place] (Spiriva Inhaler) 1 inhalation INHALATION RT-DAILY [facility] Last Admin: 03/30/20 07:05 Dose: Not Given Documented by: Trazodone HCl (Desyrel Tablet) 50 mg PO HS [facility] Result Diagrams: 03/29/20 06:56 03/29/20 06:56 Lab Results: Laboratory (Last 12 hours Results) 03/30/20 09:00 Urine Color STRAW Urine Appearance CLEAR Urine pH 6.5 Specific [place] (Man) 1.005 Urine Protein NEGATIVE Urine Glucose [...] Patient considered low suspicion Screening completed per senior care care request prior to return Negative 03/30/2020 [...] Hospitalist charges for this visit?: Yes Inpatient 58051 Subsequent INpt-Mod (less than/equal 25 minutes): Yes Signed By:Samina GARCIA <<Signature on File>> Signed Date/Time: 03/30/20 1326 Co-Signer: Co-Signed Date/Time: Initializing User: Samina GARCIA 03/30/20 1254 1254 53 Name Value Range Interpretation Code Description Data Elizabeth rce(s) Supporting Document(s) ID Date Data Source [id number] 03/30/2020 12:14:00 [place] [address] HEALTH INFORMATION MANAGEMENT Nutritional Care Progress Note : [id number] Signed Patient: Madhavi Montalvo Acct:[id number] Un it: [id number] : 1980 Loc: ICU Room/Bed: [facility] Age/Sex: 39 / F ADM [...] 08:49 Buspar Tablet PO 10 mg BID [facility] Administration Duloxetine HCl 60 mg 03/29/20 09:00 03/30/20 08:49 Cymbalta Capsule PO 60 mg DAILY [facility] Administration Enoxaparin Sodium 40 mg 03/28/20 18:00 03/29/20 17:32 Lovenox Inj SUBCUTAN 40 mg Q24H [facility] Administration Escitalopram Oxalate 5 mg 03/29/20 09:00 03/30/20 08:50 Lexapro Tablet PO 5 mg DAILY [facility] Administration Folic Acid 1 mg 03/29/20 09:00 03/30/20 08:51 Folic Acid Tablet PO 1 mg DAILY [facility] Administration Gabapentin 200 mg 03/28/20 21:00 03/30/20 08:48 Neurontin Capsule PO 200 mg TID [facility] Administration Guaifenesin 200 mg 03/28/20 15:23 Robitussin Plain Syrup Ud Cup PO Q4HPRN PRN COUGH Hydroxychloroquine Sulfate 200 mg 03/29/20 09:00 03/30/20 08:48 Plaquenil Tablet PO 200 mg DAILY [facility] Administration Imipenem/Cilastatin Sodium 500 100 mls @ 200 mls/hr 03/30/20 12:00 mg/ Sodium Chloride IV Q6H [facility] Ketorolac Tromethamine 30 mg 03/29/20 13:40 03/30/20 06:37 Toradol Injection IV 04/03/20 13:37 30 mg Q6H PRN Administration SEVERE PAIN LEVEL 7-9 Levetiracetam 500 mg 03/28/20 21:00 03/30/20 08:49 Keppra Tablet PO 500 mg BID [facility] Administration Loperamide HCl 2 mg 03/28/20 15:23 [...] 8.6 Mg Tablet PO 2 tab BID [facility] Administration Sodium Chloride 1 each 03/28/20 16:00 03/30/20 08:51 Saline Lock Flush Protocol IV FLUSH 1 each QSHIFT [facility] Administration Sumatriptan Succinate 50 mg 03/28/20 15:23 03/30/20 00:37 Imitrex Tablet PO 50 mg Q2HPRN PRN Administration Migraine Headache Thiamine HCl 100 mg 03/29/20 09:00 03/30/20 08:50 Vitamin B-1 Tablet PO 100 mg DAILY [facility] Administration Throat Lozenges 1 applic 03/28/20 15:23 Chloras eptic Throat Pierson MUC MEMB Q2HPRN PRN SORE THROAT Tiotropium Luning 1 inhalation 03/29/20 07:00 03/30/20 07:05 Spiriva Inhaler INHALATION Not Given RT-DAILY [facility] Trazodone HCl 50 mg 03/30/20 21:00 Desyrel [...] Fluid Needs:: 1800 cc - IBW Calculated [place] Body Weight (IBW): 124.80 Adjusted Body Weight (ABW): 132.84 % [place] Body Weight (%IBW): 126 Body Mass Index (BMI): 26.1 Recent Weight Change: None Reported Nutritional Care Priority Stat - - Malnutrition Nutritional Status: Not Malnurished - - Weight Loss ASPEN/Academy Consensus Statement:: Although malnutrition can occur at any BMI. Individuals at either extreme of BMI. May be at increased risk of poor nutritional status. Priority Points: 0: BMI 18.6-39.9 - - Diagnosis/Condition ASPEN/[employer] Consensus Statement:: History and Clinical Diagnosis: The [...] rce(s) Supporting Document(s) ID Date Data Source [id number] 03/30/2020 10:45:00 AM EDT [facility] Run: 04/02/20 0811 INTERFACED REPORT Name: Madhavi Montalvo Nnay Age/Sex: 39/F Location: [facility] Acct: [id number] Unit: [id number] Status: ADM IN Room/Bed: 311-A Re03/28/20 Disch: Att Dr: Samina Dixon CASE AIDE Specimen #: [id number] Ordered : 03/30/20 Collected : 03/30/20 By: [...] 0811 INTERFACED REPORT ------- ----- Specimen #: [id number] (Continued) Ordered : 03/30/20 Collected : 03/30/20 [...] COLI Run: 04/02/20810 INTERFACED REPORT Specimen #: [id number] (Continued) Ordered : 03/30/20 Collected : 03/30/20 [...] Elizabeth rce(s) Supporting Document(s) COLOR,UR STRAW YELLOW [facility] APPEARANCE,UR CLEAR CLEAR [facility] PH,UR 6.5 5.0-8.0 [facility] SPECIFIC GRAVITY,UR 1.005 1.002-1.035 N [facility] PROTEIN,UR NEGATIVE MG/DL NEGATIVE [facility] GLUCOSE, UR NEGATIVE MG/DL NEGATIVE [facility] KETONES,UR NEGATIVE MG/DL NEGATIVE [facility] OCCULT BLOOD,UR TRACE NEGATIVE A [facility] NITRATE,UR POSITIVE NEGATIVE A [facility] LEUKOCYTE ESTERASE ,UR MODERATE NEGATIVE A [facility] BILIRUBIN,UR NEGATIVE NEGATIVE [facility] UROBILINOGEN,UR 0.2-1.0 EU MG/DL NEG-0-1.0 [facility] RBC,UR 1-2 PER HPF 0-2 [facility] WBC,UR 5-9 PER HPF <5 A [facility] URINE EPITH RARE PER/LPF FEW-MOD [facility] BACTERIA,UR FEW PER HPF NONE [facility] ID Date Data Source [id number] 04/02/2020 08:10:00 AM EDT [facility] Run: 04/02/20 0811 INTERFACED REPORT Name: MontalvoMadhavi farris Age/Sex: 39/F Location: [facility] Acct: [id number] Unit: [id number] Status: ADM IN Room/Bed: 311-A Re03/28/20 Disch: Glenn Dr: Samina Dixon CASE AIDE Specimen #: [id number] Ordered : 03/30/20 Collected : 03/30/20 By: [...] 0811 INTERFACED REPORT ------- ----- Specimen #: [id number] (Continued) Ordered : 03/30/20 Collected : 03/30/20 [...] COLIFORMS MANY Organism 1 ESCHERICHIA COLI Run: 04/02/20 0811 INTERFACED REPORT Specimen #: [id number] (Continued) Ordered : 03/30/20 Collected : 03/30/20 [...] rce(s) Supporting Document(s) ID Date Data Source [id number] 03/29/2020 01:13:00 [place] [address] HEALTH INFORMATION MANAGEMENT PCM-Progress Note : [id number] Signed Patient: Madhavi Montalvo Acct:[id number] Un it: [id number] : 1980 [facility]Sex[facility] 39 / F ADM Date: 03/28/20 cc: Subjective Date of Service: 03/29/20 Subjective: This patient is a 39 yo F with a past medical history of Asthma, Chronic headache, Lupus, IBS, Fibromyalgia, and anoxic brain injury that was sent to the ER this morning from her [place] ([facility]) for complaints of a headache. She states [...] shortness of breath and cough at the [place]. Because of this they tested for COVID [...] ml @ 400 mls/hr IV ONCE ONE Rx#:[id number] Sodium Chloride 0.9% Infusion 1 1000 / 1000 ,000 ml @ 999 mls/hr IV ONCE ONE Rx#:[id number] Oral 120 / 120 120 / 120 [...] HCl (Buspar Tablet) 10 mg PO BID [facility] Last Admin: 03/29/20 08:22 Dose: 10 mg Documented by: Duloxetine HCl (Cymbalta Capsule) 60 mg PO DAILY [facility] Last Admin: 03/29/20 08:22 Dose: 60 mg Documented by: Enoxaparin Sodium (Lovenox Inj) 40 mg SUBCUTAN Q24H [facility] Last Admin: 03/28/20 18:05 Dose: 40 mg Documented by: Escitalopram Oxalate (Lexapro Tablet) 5 mg PO DAILY [facility] Last Admin: 03/29/20 08:23 Dose: 5 mg Documented by: Folic Acid (Folic Acid Tablet) 1 mg PO DAILY [facility] Last Admin: 03/29/20 08:24 Dose: 1 mg Documented by: Gabapentin (Neurontin Capsule) 200 mg PO TID [facility] Last Admin: 03/29/20 08:22 Dose: 200 mg Documented by: Guaifenesin (Robitussin Plain Syrup Ud Cup) 200 mg PO Q4HPRN PRN PRN Reason: COUGH Hydroxychloroquine Sulfate (Plaquenil Tablet) 200 mg PO DAILY [facility] Last Admin: 03/29/20 09:19 Dose: 200 mg Documented by: Levetiracetam (Keppra Tablet) 500 mg PO BID [facility] Last Admin: 03/29/20 08:24 Dose: 500 mg Documented by: Loperamide HCl (Imodium Capsule) 2 mg PO Q6HPRN PRN PRN Reason: DIARRHEA Magnesium Hydroxide (Milk Of Magnesia Susp Ud-Cup) 30 ml PO DAILYPRN PRN PRN Reason: CONSTIPATION Metoprolol Tartrate (Lopressor Tablet) 50 mg PO BID [facility] Miscellaneous Medication (Methotrexate Sodium [Trexall]) 7.5 mg PO Q7DAYS [facility] Ondansetron HCl (Zofran Injection) 4 mg IV PUSH Q4HPRN PRN PRN Reason: NAUSEA / VOMITING Pantoprazole Sodium (Protonix Tablet) 40 mg PO DAILY@0600- EMPTYSTOM [facility] Last Admin: 03/29/20 05:09 Dose: 40 mg Documented by: Senna (Senokot (Senna) 8.6 Mg Tablet) 2 tab PO BID [facility] Last Admin: 03/29/20 08:25 Dose: Not Given Documented by: Sodium Chloride (Saline Lock Flush Protocol) 1 each IV FLUSH QSHIFT [facility] Last Admin: 03/29/20 08:29 Dose: 1 each Documented by: Sumatriptan Succinate (Imitrex Tablet) 50 mg PO Q2HPRN PRN PRN Reason: Migraine Headache Last Admin: 03/29/20 08:23 Dose: 50 mg Documented by: Thiamine HCl (Vitamin B-1 Tablet) 100 mg PO DAILY [facility] Last Admin: 03/29/20 08:25 Dose: 100 mg Documented by: Throat Lozenges (Chloraseptic Throat Pierson) 1 applic MUC MEMB Q2HPRN PRN PRN Reason: SORE THROAT Tiotropium Luning (Spiriva Inhaler) 1 inhalation INHALATION RT-DAILY [facility] Last Admin: 03/29/20 08:20 Dose: 1 inhalation Documented by: Trazodone HCl (Desyrel Tablet) 50 mg PO DAILY [facility] Last Admin: 03/29/20 08:29 Dose: Not Given Documented by: Result Diagrams: 03/29/20 06:56 03/29/20 06:56 Lab Results: Microbiology (Last 12 Hour Results- Final) 03/28/20 09:47 Urine,Clean Catch [place] Count - Final 03/28/20 09:47 Urine,Clean Catch Urine Culture - Final Laboratory (Last 12 hours Results) 03/29/20 03/29/20 06:56 06:56 WBC 5.34 RBC 3.97 Hgb 11.7 D Hct 34.4 L MCV 86.6 MCH 29.5 MCHC 34.0 RDW 13.2 Plt Count 193 D MPV 10.6 Gran % (Auto) 36.7 L Lymph % (Auto) 51.7 H [place] % (Auto) 7.5 Eos % (Auto) 2.4 Baso % (Auto) 1.5 Nucleat RBC Rel Count Not Reportable Gran # 1.96 Lymph # (Auto) 2.8 [place] # (Auto) 0.40 Eos # (Auto) 0.13 [...] need to be negative before returning to [facility] -not back yet 3. Lupus Continue [...] Hospitalist charges for this visit?: Yes Inpatient 30814 Subsequent INpt-Complex (less than/equal 35 minutes): Yes Signed By:Sandee Grullon MD <<Signature on File>> Signed Date/Time: 03/29/20 1357 Co-Signer: Isidro Sun MD Co-Signed Date/Time: 03/29/20 1424 Initializing User: Sandee Grullno MD 0 03/29/20 1313 1313 1313 Name Value Range Interpretation Code Description Data Elizabeth rce(s) Supporting Document(s) ID Date Data Source [id number] 03/29/2020 07:28:00 AM [facility]T [facility] Name Value Range Interpretation Code Description Data Elizabeth rce(s) Supporting Document(s) SODIUM 143 MEQ/L 135-145 [facility] POTASSIUM 4.1 MEQ/L 3.5-5.3 N [facility] CHLORIDE 111 MEQ/L 94-110 H [facility] CARBON DIOXIDE 26 MEQ/L 22-33 N [facility] ANION GAP 10 5-16 N [facility] BLOOD UREA NITRO 9 MG/DL 7-25 N [facility] CREATININE 0.7 MG/DL 0.6-1.4 N [facility] GFR > 90.0 ML/MIN [facility] Stage G1 - Normal or high kidney functi on The GFR is an estimate of the Glomerular Filtration Rate. It is an aid to assess a patient's renal function. It is not a conclusive diagnosis of kidney disease. GFR normal is >=90 The MDRD GFR calculation is considered valid between the ages of 18 and 75 years only. BUN/CREAT RATIO 12 8-36 N [facility] GLUCOSE 86 MG/DL 70-100 N [facility] CA 8.5 MG/DL 8.7-10.5 L [facility] ID Date Data Source [id number] 03/29/2020 07:23:00 AM EDT [facility] Name Value Range Interpretation Code Description Data Elizabeth rce(s) Supporting Document(s) WHITE BLOOD COUNT 5.34 10^3/uL 4.00-10.50 N [facility]alth RED BLOOD COUNT 3.97 10^6/uL 3.90-5.20 N [facility] th HEMOGLOBIN 11.7 G/DL 11.5-15.6 [facility] HEMATOCRIT 34.4 % 35.0-46.0 L [facility] MCV 86.6 FL 80.0-100.0 N [facility] MCH 29.5 PG 27.0-34.0 N [facility] MCHC 34.0 G/DL 32-36 N [facility] RDW 13.2 % 11.5-14.5 N [facility] PLATELET COUNT 193 10^3/uL 130-400 [facility] MPV 10.6 FL 8.7-13.2 N [facility] GRAN % (AUTO) 36.7 % 42.0-75.0 L [facility] LYMPH % (AUTO) 51.7 % 20.0-51.0 H [facility] MONO % (AUTO) 7.5 % 2.0-15.0 N [facility] EOS % (AUTO) 2.4 % 0.0-11.0 N [facility] BASO % (AUTO) 1.5 % 0.0-2.0 N [facility] IG % (AUTO) 0.2 % 1.00-5.00 [facility] IG # (AUTO) 0.0 10^3/uL <0.5 [facility] GRAN # (AUTO) 1.96 10^3/uL 1.50-6.50 N [facility] LYMPH # (AUTO) 2.8 k/uL 1.0-5.0 N [facility] MONO # (AUTO) 0.40 k/uL 0.20-1.50 N [facility] EOS # (AUTO) 0.13 10^3/uL 0.00-1.10 N [facility] BASO # (AUTO) 0.08 10^3/uL 0.00-0.20 N [facility] ID Date Data Source [id number] 03/28/2020 02:36:00 [place] [address] HEALTH INFORMATION MANAGEMENT History and Physical Report : [id number] Signed Patient: Madhavi Montalvo Acct:[id number] it: [id number] : 1980 Loc: [facility] Room/Bed: [facility]-A Age/Sex: 39 / F ADM Date: 03/28/20 cc: History Physical Date of Service (Initial Exam): 03/28/20 Chief Complaint: Headache with shortness of breath History of Present Illness: This patient is a 39 yo F with a past medical history of Asthma, Chronicheadache, Lupus, IBS, Fibromyalgia, and anoxic brain injury that was sent to the ER this morning from her [place] ([facility]) for complaints of a headache. She states [...] shortness of breath and cough at the [place]. Because of this they tested for COVID [...] PO BID PRN 03/28/20 bisacodyl 10 mg [place] DAILY PRN 03/28/20 budesonide-formoterol [Symbicort] 2 puff [...] tartrate [Lopressor] 50 mg PO Q12H 03/28/20 fgedrwnyhgoq-ycd-ssbo-FA-vit K 1 tab PO DAILY 03/28/20 [Multi- [...] of use Occupation: disabled Lives with: Reports [facility] PMH/PSH PMH/PS Surgical History Gastric bypass status for obesity [...] MPV Gran % (Auto) Lymph % (Auto) [place] % (Auto) Eos % (Auto) Baso % (Auto) Nucleat RBC Rel Count Gran # Lymph # (Auto) [place] # (Auto) Eos # (Auto) Baso # [...] Appearance CLOUDY H Urine pH 6.0 Specific [place] (Man) 1.006 Urine Protein NEGATIVE Urine Glucose [...] % (Auto) 50.4 Lymph % (Auto) 38.6 [place] % (Auto) 7.8 Eos % (Auto) 1.9 Baso % (Auto) 1.0 Nucleat RBC Rel Count Not Reportable Gran # 3.40 Lymph # (Auto) 2.6 [place] # (Auto) 0.53 Eos # (Auto) 0.13 [...] Urine Color Urine Appearance Urine pH Specific [place] (Man) Urine Protein Urine Glucose (UA) Urine [...] need to be negative before returning to [facility] 3. Lupus Continue home meds 4. [...] Health Care proxy Phone Number:: Sadie Tirado [phone] DVT Prophylaxis Pharmacologic: Lovenox Problems (1) Head [...] was more than 50% counseling:: Yes Inpatient 51284 Initial INpt-Mod (less than/equal 50 minutes): Yes Signed By:Tan Pulido MD <<Signature on File>> Signed Date/Time: 03/28/201852 Co-Signer: Isidro Sun MD Co-Signed Date/Time: 03/28/201852 Initializing User: Tan Pulido MD 143 35 35 Name Value Range Interpretation Code Description Data Elizabeth rce(s) Supporting Document(s) ID Date Data Source [id number] 03/28/2020 10:32:00 [place] [address] Patient Name: Madhavi Montalvo Exam Date: 03/28/20 [...] acute intracranial disease. Professional interpretation performed at [facility] . End of diagnostic report: [id number] Signed: Savanah Smith MD 03/28/20 1039 Interpreted by: Savanah Smithnscribed by: Savanah Smith Name Value Range Interpretation Code Description Data Elizabeth rce(s) Supporting Document(s) ID Date Data Source [id number] 03/28/2020 10:08:00 [place] [address] Patient Name: Madhavi Montalvo Exam Date: 03/28/20 [...] chest. Professional interpretation performed at Dr. Idris Lebron [facility] . End of diagnostic report: [id number] Signed: Red Hamilton MD 03/28/20 1014 Interpreted by: Red HamiltonTranscribed by: Red Hamilton Name Value Range Interpretation Code Description Data Elizabeth rce(s) Supporting Document(s) ID Date Data Source [id number] 04/02/2020 11:12:00 AM EDT [facility]: 04/02/20 1112 INTERFACED REPORT Name: Madhavi Montalvo Age/Sex: 39/F Location: [facility] Acct: [id number] Unit: [id number] Status: ADM IN Room/Bed: 311-A Re03/28/20 Disch: Att Dr: Samina GARCIA Specimen #: [id number] Ordered : 03/28/20 Collected : 03/28/20 By: [...] rce(s) Supporting Document(s) ID Date Data Source [id number] 03/28/2020 10:04:00 AM EDT [facility]: 04/02/20 1112 INTERFACED REPORT Name: Madhavi Montalvo Nany Age/Sex: 39/F Location: [facility] Acct: [id number] Unit: [id number] Status: ADM IN Room/Bed: 311-A Re03/28/20 Disch: Glenn Dr: Samina GONZALEZP Specimen #: [id number] Ordered : 03/28/20 Collected : 03/28/20 By: [...] WHITE BLOOD COUNT 6.76 10^3/uL 4.00-10.50 N [facility] RED BLOOD COUNT 4.54 10^6/uL 3.90-5.20 N [facility] HEMOGLOBIN 13.4 G/DL 11.5-15.6 N [facility] HEMATOCRIT 40.0 % 35.0-46.0 N [facility] MCV 88.1 FL 80.0-100.0 N [facility] MCH 29.5 PG 27.0-34.0 N [facility] MCHC 33.5 G/DL 32-36 N [facility] RDW 13.2 % 11.5-14.5 N [facility] PLATELET COUNT 231 10^3/uL 130-400 [facility] MPV 10.9 FL 8.7-13.2 N [facility] GRAN % (AUTO) 50.4 % 42.0-75.0 N [facility] LYMPH % (AUTO) 38.6 % 20.0-51.0 N [facility] MONO % (AUTO) 7.8 % 2.0-15.0 N [facility] EOS % (AUTO) 1.9 % 0.0-11.0 N [facility] BASO % (AUTO) 1.0 % 0.0-2.0 N [facility] IG % (AUTO) 0.3 % 1.00-5.00 [facility] IG # (AUTO) 0.0 10^3/uL <0.5 [facility] GRAN # (AUTO) 3.40 10^3/uL 1.50-6.50 N [facility] LYMPH # (AUTO) 2.6 k/uL 1.0-5.0 N [facility] MONO # (AUTO) 0.53 k/uL 0.20-1.50 N [facility] EOS # (AUTO) 0.13 10^3/uL 0.00-1.10 N [facility] BASO # (AUTO) 0.07 10^3/uL 0.00-0.20 N [facility] ID Date Data Source [id number] 03/28/2020 10:13:00 AM EDT [facility] Run: 04/02/20 1112 INTERFACED REPORT Name: Madhavi Montalvo Age/Sex: 39/F Location: [facility] Acct: [id number] Unit: [id number] Status: ADM IN Room/Bed: 311-A Re03/28/20 Disch: Glenn Dr: Samina Dixon CASE AIDE Specimen #: [id number] Ordered : 03/28/20 Collected : 03/28/20 By: [...] Document(s) PROTHROMBIN TIME 10.7 SEC 8.9-13.3 N [facility] INR 1.0 0.0-3.6 N [facility] Therapeutic Values of INR are generally between 2.0-3.0 except for Prosthetic Valves (High Risk 2.5-3.5) The use of INR is restricted to patient on stable oral anticoagulant therapy. ID Date Data Source [id number] 03/28/2020 10:23:00 AM EDT [facility] Run: 04/02/20 1112 INTERFACED REPORT Name: Madhavi Montalvo Age/Sex: 39/F Location: [facility] Acct: [id number] Unit: [id number] Status: ADM IN Room/Bed: 311-A Re03/28/20 Disch: Glenn Dr: Samina GARCIA Specimen #: [id number] Ordered : 03/28/20 Collected : 03/28/20 By: [...] Supporting Document(s) SODIUM 141 MEQ/L 135-145 N [facility] POTASSIUM 4.7 MEQ/L 3.5-5.3 N [facility] CHLORIDE 108 MEQ/L 94-110 N [facility] CARBON DIOXIDE 27 MEQ/L 22-33 N [facility] ANION GAP 11 5-16 N [facility] BLOOD UREA NITRO 6 MG/DL 7-25 L [facility] CREATININE 0.8 MG/DL 0.6-1.4 N [facility] GFR 79.0 ML/MIN [facility] Stage G2 - Mildly decreased kidney func tion The GFR is an estimate of the Glomerular Filtration Rate. It is an aid to assess a patient's renal function. It is not a conclusive diagnosis of kidney disease. GFR normal is >=90 The MDRD GFR calculation is considered valid between the ages of 18 and 75 years only. BUN/CREAT RATIO 7 8-36 L [facility] GLUCOSE 85 MG/DL 70-100 N [facility] CA 9.2 MG/DL 8.7-10.5 N [facility] BILIRUBIN,TOTAL 0.4 MG/DL 0.1-1.3 [facility] AST 35 U/L 5-40 N [facility] ALT 30 U/L 5-48 [facility] ALKALINE PHOSPHATASE 67 U/L 40-[address] [facility] TOTAL PROTEIN 5.9 G/DL 5.9-8.3 [facility] ALBUMIN 4.1 G/DL 3.0-5.1 [facility] GLOBULIN 1.8 G/DL 1.5-3.5 [facility] ALB/GLOB RATIO 2.3 G/DL 1.0-3.0 [facility] ID Date Data Source [id number] 03/28/2020 10:13:00 AM EDT [facility] Run: 04/02/20 1112 INTERFACED REPORT Name: Madhavi Montalvo Age/Sex: 39/F Location: [facility] Acct: [id number] Unit: [id number] Status: ADM IN Room/Bed: 311-A Re03/28/20 Disch: Glenn Dr: Samina GARCIA Specimen #: [id number] Ordered : 03/28/20 Collected : 03/28/20 By: [...] Supporting Document(s) PTT 32.3 SEC 22.2-34.9 N [facility] ID Date Data Source [id number] 03/28/2020 10:23:00 AM EDT [facility] Run: 04/02/20 1112 INTERFACED REPORT Name: MontalvoMadhavi farris Age/Sex: 39/F Location: [facility] Acct: [id number] Unit: [id number] Status: ADM IN Room/Bed: 311-A Re03/28/20 Disch: Glenn Dr: Samina GONZALEZP Specimen #: [id number] Ordered : 03/28/20 Collected : 03/28/20 By: [...] TROPONIN I < 0.006 NG/ML 0.000-0.040 N [facility] 0.000 - 0.040 Normal. 0.041 - 0.779 S uspect myocardial injury. Repeat testing recommended. >= 0.780 Meets WHO criteria cutoff for AMI. ID Date Data Source [id number] 03/28/2020 09:52:00 [place] [address] HEALTH INFORMATION MANAGEMENT ED/ Physician Report : [id number] Signed Patient: Madhavi Montalov Acct:[id number] Unit: [id number] : 1980 Arrival Date: 03/28/20 Age/Sex: 39 / F Arrival Time: 918 Copies to: PCP,No General Adult HPI/ROS General Chief Complaint: Complex/Multi-System Present Stated Complaint: Headache Stated Complaint: Headache Source: Patient, RN notes reviewed and I have reviewed available Ancillary/nursing staff documentation ( [facility]p) Mode of arrival: EMS Limitations: Reports No [...] any known exposures however she is a [facility]p resident. Patient denies any other associated symptoms at this time. Related Data Home Medications Medication Instructions Recorded acetaminophen [Tylenol] 650 mg PO Q6H PRN MDD 3 Grams 03/28/20 albuterol sulfate 2 puff INHALATION QID PRN 03/28/20 baclofen 5 mg PO BID PRN 03/28/20 bisacodyl 10 mg [place] DAILY PRN 03/28/20 budesonide-formoterol [Symbicort] 2 puff [...] tartrate [Lopressor] 50 mg PO Q12H 03/28/20 pahuilbmpqqz-iwb-kyai-FA-vit K 1 tab PO DAILY 03/28/20 [Multi-Day [...] Social History Other: currently living at a [facility] following 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 Waiting for placement current History of Smoking/Tobacco Use: Former Smoker Alcohol use: Reports History of use Drug use: Reports History of use Occupation: disabled Lives with: Reports [facility] PMH/PSH PMH/PSH Surgical History Gastric bypass status [...] Skin exam: Dry, Intact and Warm; negative [place] ( pale) Course Reevaluation(s) Reevaluation #1: patient does reports some improvement after medications. patient remains without any focal neurological deficits. Patient is alert and oriented x3. Patient is in agreement with discharge back to the usp. Did discuss extensively with patient the need to find differentplacement as this does not appear appropriate for her. Patient is in agreement with this. Patient is in no acute distress in agreement with discharge. Time: 11:29 Reevaluation #2: Adilene bedside RN Attempted to give report to the usp. Patient unable toreturn until her COVID testing [...] reports that her upper Imitrex at the [facility]p which was not working. Patient is also complaining of cough shortness of breath and chills. Patient is [facility]. COVID precautions were initiated a order [...] rce(s) Supporting Document(s) ID Date Data Source [id number] 03/28/2020 09:47:00 AM EDT [facility] Name Value Range Interpretation Code Description Data Elizabeth rce(s) Supporting Document(s) 2019-nCoV N XXX Ql MARIAN N2 [facility] [place] This lab was ordered by [facility] and reported by MARICEL. ID Date Data Source [id number] 03/30/2020 01:20:00 PM EDT [facility] Name Value Range Interpretation Code Description Data Elizabeth rce(s) Supporting Document(s) COVID 19 See Notes [facility] Virology Laboratory Phone: Testing performed at [facility]# [id number] Specimen Id: [id number] Specimen Type: Nasopharyngeal Swab 2019 nCoV Real-Time RT-PCR: Not Detected 03/30/2020 NOTE: The [facility] is approved by the Centers for Disease Control and Prevention (CDC) to test for 2019 novel coronavirus (2019_nCoV). The real-time RT-PCR assay for 2019_nCoV was developed by the [facility] for the purpose of diagnostic testing to allow for rapid response during a declared public health emergency and has Emergency Use Authorization (EUA) from the FDA. Negative 2019_nCoV RT-PCR results do not preclude 2019_nCoV infection and should not be used as the sole basis for patient management decisions. Additional information is available on the following FDA websites for health care providers and patients. https://www.fda.gov/media/266284/download https://www.fda.gov/media/688555/download This reportable disease test result has been posted on [employer], the [facility] Electronic Clinical Laboratory Reporting System, in accordance with [facility] Public Health Law, and is available to local and/or state health officials as [place]. [place] [address] CLIA# [id number] [address] [address] CLIA# [id number] [address] [address] CLIA# [id number] ID Date Data Source [id number] 03/28/2020 11:12:00 AM [facility] Run: 03/29/20 0822 INTERFACED REPORT Name: Madhavi Montalvo Age/Sex: 39/F Location: [facility] Acct: [id number] Unit: [id number] Status: ADM IN Room/Bed: 412-A Re03/28/20 Disch: Glenn Dr: Sandee Grullon MD Specimen #: [id number] Ordered : 03/28/20 Collected : 03/28/20 By: LAURO Received: 03/28/20 By: BERONICA Source: URINE CC Specimen Description: Procedure Result - COLONY COUNT Final COLONY COUNT GREATER THAN 100,000 CFU/ML URINE CULTURE Final PRESENCE OF 3 OR MORE ORGANISMS-SPECIMEN MAY BE CONTAMINATED SUGGEST REPEAT END OF REPORT Name Value Range Interpretation Code Description Data Elizabeth rce(s) Supporting Document(s) COLOR,UR AARON YELLOW A [facility] APPEARANCE,UR CLOUDY CLEAR A [facility] PH,UR 6.0 5.0-8.0 [facility] SPECIFIC GRAVITY,UR 1.006 1.002-1.035 N [facility] PROTEIN,UR NEGATIVE MG/DL NEGATIVE [facility] GLUCOSE, UR NEGATIVE MG/DL NEGATIVE [facility] KETONES,UR NEGATIVE MG/DL NEGATIVE [facility] OCCULT BLOOD,UR NEGATIVE NEGATIVE [facility] NITRATE,UR NEGATIVE NEGATIVE [facility] LEUKOCYTE ESTERASE ,UR SMALL NEGATIVE A [facility] BILIRUBIN,UR NEGATIVE NEGATIVE [facility] UROBILINOGEN,UR 0.2-1.0 EU MG/DL NEG-0-1.0 [facility] RBC,UR 1-2 PER HPF 0-2 [facility] WBC,UR 25-49 PER HPF <5 A [facility] URINE EPITH MODERATE PER/LPF FEW-MOD [facility] BACTERIA,UR MODERATE PER HPF NONE [facility] MUCUS,UR RARE PER HPF NONE SEEN [facility] ID Date Data Source [id number] 03/29/2020 08:22:00 AM EDT [facility] Run: 03/29/20 0822 INTERFACED REPORT Name: Madhavi Montalvo Age/Sex: 39/F Location: [facility] Acct: [id number] Unit: [id number] Status: ADM IN Room/Bed: 412-A Re03/28/20 Disch: Att Dr: Sandee Grullon MD Specimen #: [id number] Ordered : 03/28/20 Collected : 03/28/20 By: LAURO Received: 03/28/20 By: BERONICA Source: URINE CC Specimen Description: Procedure Result - COLONY COUNT Final COLONY COUNT GREATER THAN 100,000 CFU/ML URINE CULTURE Final PRESENCE OF 3 OR MORE ORGANISMS-SPECIMEN MAY BE CONTAMINATED SUGGEST REPEAT END OF REPORT Name Value Range Interpretation Code Description Data Elizabeth rce(s) Supporting Document(s) ID Date Data Source [id number] 03/28/2020 10:08:00 AM EDT [facility] Name Value Range Interpretation Code Description Data Elizabeth rce(s) Supporting Document(s) Lactic Acid,P 0.8 mmol/L 0.5-2.0 N [facility] ID Date Data Source [id number] 03/28/2020 09:37:27 AM EDT [facility] Name Value Range Interpretation Code Description Data Elizabeth rce(s) Supporting Document(s) EKG/ECG IN ED [facility] [file] VlIc78MY2qwHLvTQUGGIVCTQYZMETWHTKNVLTVYAWVVRBQJOJVEFIDTgA/D/MHyW4QpvUy6AiOxtXySa ytIsiI5+8yRtHHsBPHlrndiuurxDQv+Eh/4SDTPM/4 WL/cs0cM6i1w0s8Mou37+04/f0mF8cal42grjYTk41KSIWMKTDDVu/8Axd//AKkb/vZp70bkbi5pXoLr QbHstldQWtzKN90QqqvcPmCBJ0mDaKVL5NeLZuU3615MdEipJ05B+Lb+4jQF2PxXbBY5dsj6lMrvkFUc cJrRDIBLZA3pwECY1i/8IjY/2p9u+9jnLt8lkufLz+ Y3k+za53qc0n4eqSkp6CsVQRXCLFMJJGEFTaokXuOqmP4q3w6prhffNrHxMjLqpPQsF4N8M1+Hep+Jose Alberto [file] m1JEgT65t73gj49pYUFqJI+V+1oHE50py024HSC1o6 [employer] Coach/Gcdb3Vrb0YL9CSQBbk5VdTNYeV/IDHkixQ5sYydc09llU9TD+y55qvqPTh67+2GR0eV8ORKv8guCD [file] ooqDEKKKKACiiigAooooAKKKKACiiigAooooAKKKKACiiigAooooAKKKKACiiigAooooAKKKKACiiigA ooooAKKKKACiiigDm/E/37b/AIF/MiVcxkLbqltt0iJxfyzCiurv56/6nRfrN/8JQZOp4Jl/8NnjtLRR RV9rHmJGLu6Z9Sv1e5Nz+vYf+mKtn5QA3lfmmf/gQU UUVRuFeTfG/wD1Oi/Wb/0XathcbX4/9uSNwQCDcCFNrxhlK1D1Vu4QRo6X/r2H/bUf7ysauD6Kq9o6YE VNWFhxAf0lr/1Oi/Wb/wBkooqZbGNf+Qct4sctyC9cZIwlpD8E1Uz9a6Rw+vYf+wDnn6ET8ljiyu/gQU UUVRuFeTfG/wD1Oi/Wb/4TdorooV4/4bPHaWiiszyw pKKKAPUPgp/yHdR/69h/0FV0aclzIQs1iQ+SEVPSUB4P3F3z/nHA7S6Et/ZKKKmWxjX/AIbPHaWiiszz ApKKKBHqHwU/5Duo/kSSqA5T7IT5ALODyut40O3ADjeowehfP0b+N/8AqdF+s3/slFFTLYxr/wANnjtF IRIprtZLYOW0u7JZ+Q7qP/XsP/PkOyoDLpG3MKc/wI JTLCa1Sccl6/yEn/65H+YooqXsY1/4cjrKKKKzPKCiiigAooooAKKKKACiiigAooooAKKKKACiiigAoo ooAKKKKACiiigAooooAKKKKACiiigAooooAKKKKACiiigD/9oNTlPlSNZ9qwCpfJ1EQG9dw1UsUMxbJs MaJT1umz6ODCasHJviAZ0RZaxPqD4wUuK0N8MvdqN2 JAH4M2WufBBxhc4AwUO7IBTiJ63aQQ8HSC6xbLtmRWxcTc3BZwE5ybSvbO2CbPjczDMOdmLHnAiN/3Bj F1CHOipF9BFIKqthvYEWdcZBdRNcq2+EHzW3R3C80734DhlhFBlxOyOCGmzNrzyHyLldFIGtkufzzMhN vmKykRIZXxsEbMgeinTRDXu5luufmG5GVTh/gGOyzP e+B0EOdNKNmsYBbSkYwMvjFALAZM6/htVTPekryTBdfQWl7SRWwuunJS1Wrh1nCJ6InCrep+WL6HekiY tnnHxwVK5klOE1W2b0V/Bg6QGG770JSW0LGRccadQuzTYrJA8JSsXtCP0mjr4EPNiiSZYrUrvPTuk4E4 Cvy8P6Y9PiWU0/ML5FkXMyVHKIvfNyAZ3AHfC7LP3S WTWNTIHXUqWfQNCKZFZbMBkNwoHcYCGJQZXnXOZHMGD3PA0NneGluX0vYI8/JT0KnIClLHORnqUiOR3D BcD9SY0GPJCJVWAFWmYtHEPMXYVnYTmVxiJxUFZMHAAnQCKBNJI5RW9QkiQcuIpxmuOcyLJhKPyiSUTk TWFdBjXgGsw1ZcbcS09uYJUppHJzRSgxLUBkVGMiZx IbFpl5QrxhZg9WCuAnLA7mdi3GXKdmKHRpAvqUBsxeXbOjRZVHGrHeBL1jmz7YLaTzUTHtHrxYVjyuQo FoKTEBQuLnTL6zbk5LYlTlDBOrFijHFpm4N7E6lPYpCZKvUj3PnOtrINApF4jtSVYlWJXmYNXkUw6adC XbZNHgZu4LdfXqSVG4KTFcWy7BYPz0ZOT2WKD6KPP7 ItT6Nan4RFcYN9EZJKQ6QInqYVJ1XHW+EZZLFTHiZPZjLeRdULE5LVF7T6ULAtAPWAQ9RWB7OsWbCz7v H1RfrCPyeb3XcSW5PEUnJ47bGL2MOP3rnUowCUt+Vb5Iw7CdIBNbYRo5iUAkDJX//waBqSOKB3iuhWIh uDDrBXOSuI7RCE7RVqeIAZjBD3arvKTivTmNBVlnBC gQSjQPHVJTqmRRiJUMOBNUTjOwOM7WveMSDSImzqVRPFp4IPVQPyFkTLV2txVzwR4DLI0jd7DqVOa9xw EyUJrmCENyGVkfUGVuKXBvPBNmSRS6WUG1GDXBRcVeWQYhXZRzGWqfEOXvWJQejm7ILCDzBCEyALAwVU XkMAXzQDXpWPocBRGoQWKkAFjySZRtXDCtBU3UQuDn FXGyTDY9XCTtBXOxHVAssq2POKAdIXWoDClwNKJjLPYrUJSlLKkvTAAuPLJkOFTaMXOqEIDeFZ6UXlPe EHZvHKOjAQAxMGZlAIDwsv2JMJLaTKHsFYDeQuYzQBSsNDUpWWbdAIAlDHCrHJC9XHQmHTGsNM0MLdCh QGBdQCEtXJMmKdL1IgFjCx0BYYXmWKJmXRKzBaK2DI VyOJIhBCqtMFFqDQEkUQMsOSH5EVC7LAQLKoReXVDpHXJrLLJpMoN3WdUdEi8PDEVwLUHzUGHqOTG7RP DnLFZyQEsgULVtFIQrAYE7IRP1GCG7UFIFBiXdFFVrXVJmLObwLuF3LwVuJq0BCYTgZYBdWTTtHIA4SZ ZpTUPrFLvfUCTiZcSvFHA8OLGeLHRxWC4OQjDrBRNo DQNuVvIrGGSoXRJiwx7LDEWnGOLlNzP8SEUtDNDbLUHlHBlnXDLfCqBeScX3WKWlJKGfKW4IUuZtNAxw WOQQSdm0E2UfdiPzYzQvBl4ekHLtIJCqXa3FfnEtRPN1WBAhTj6REHb2IRJ1WYK5RXV8IxP8Ety1QLlV I6WLPLN2LBbiBJH5FHW+MQFZMYLlZXIkWkXeOBP5BZ J9K2ZAIqVGDDD3XGI1IwAaJi8zYo6EDlW6SPS7kSJlFy7IGsVlMgIhPHueXKGYKu1SaQUqHf3ZEJYoGV q4tsHlsXSyNVc2TN9YiOzzRWVuS7Gde4MaXHClDMLxNS9wtdPjJSSmEHZqHBTyANVFMBNiAMQdDxFhEU M4CMF3Q7ANFoXFNQK1JWU8PwAcHmm5PCI5HHQMMMq4 UdDnEtGxHDNYDeN9BHwTCDXHSJJ4MS7pXO7JnbO9HFVgGqMzZq4JOtDoM8RnLUKdWjGsNb2+DQpzdGFy oHdtJQJULzAmOeQpPU3WXTVLH4T= ID Date Data Source [id number] 03/26/2020 07:52:00 AM EDT [facility] Name Value Range Interpretation Code Description Data Elizabeth rce(s) Supporting Document(s) SODIUM 143 MEQ/L 135-145 N [facility] POTASSIUM 4.4 MEQ/L 3.5-5.3 N [facility] CHLORIDE 108 MEQ/L 94-110 N [facility] CARBON DIOXIDE 28 MEQ/L 22-33 N [facility] ANION GAP 11 5-16 N [facility] BLOOD UREA NITRO 6 MG/DL 7-25 L [facility] CREATININE 0.6 MG/DL 0.6-1.4 N [facility] GFR > 90.0 ML/MIN [facility] Stage G1 - Normal or high kidney functi on The GFR is an estimate of the Glomerular Filtration Rate. It is an aid to assess a patient's renal function. It is not a conclusive diagnosis of kidney disease. GFR normal is >=90 The MDRD GFR calculation is considered valid between the ages of 18 and 75 years only. BUN/CREAT RATIO 10 8-36 N [facility] GLUCOSE 72 MG/DL 70-100 N [facility] CA 9.1 MG/DL 8.7-10.5 N [facility] ID Date Data Source [id number] 02/29/2020 11:07:26 AM EDT [facility] [employer] HISTORY: 2 view chest for shortness of b reathComparison studies: NoneFINDINGS: There is normal size and configuration of thecardiomediastinal silhouette and pulmonary vascular shadows. The lungsare clear.IMPRESSION: No intrathoracic abnormality.THIS IS AN ELECTRONICALLY SIGNED REPORT IN etaskr BY:Mathieu Patel M.D. 02/29/2020 11:04The results were provided by [facility], to the facility. Name Value Range Interpretation Code Description Data Elizabeth rce(s) Supporting Document(s) ID Date Data Source [id number] 02/25/2020 06:03:11 PM EDT [facility] [employer] [facility] [employer] Exam: Abdominal radiographsHISTORY: pain , nauseaCOMPARISON: 01/16/2020TECHNIQUE: Supine and upright images of the abdomen and pelvis.FINDINGS:The bowel gas pattern is non-obstructive.There is no evidence of intraabdominal free air.There is a small amount of fecal material.The lung bases are unremarkable.The osseous structures and soft tissues are unremarkable.IMPRESSION: Non-obstructive bowel gas pattern. Small amount of fecalmaterial.THIS IS AN ELECTRONICALLY SIGNED REPORT IN etaskr BY:Karan Dinh M.D. 02/25/2020 18:00The results were provided by [facility], to the facility. Name Value Range Interpretation Code Description Data Elizabeth rce(s) Supporting Document(s) ID Date Data Source [id number] 01/16/2020 05:00:14 PM EST [facility] [employer] [facility] [employer] HISTORY: Abdominal painTechnique: 2 imag es of the abdomen are submitted.COMPARISON: NoneFINDINGS: Moderate gas throughout the large and small bowel in anonobstructive pattern. Gas and stool in the descending colon. Minimalstool in the rectum.No free intraperitoneal air.There are no diagnostic calcifications, organomegaly, nor masses seen.The bony structure is intact.IMPRESSION: Radiographic features suggest generalized ileus.THIS IS AN ELECTRONICALLY SIGNED REPORT IN [id number] BY:Augie Ny M.D. 01/16/2020 16:57The results were provided by [facility], to the facility. Name Value Range Interpretation Code Description Data Elizabeth rce(s) Supporting Document(s) ID Date Data Source [id number] 01/12/2020 07:41:[address] [facility] Name Value Range Interpretation Code Description Data Elizabeth rce(s) Supporting Document(s) VITAMIN B12 304 PG/ML 211-2000 N [facility] ID Date Data Source [id number] 01/12/2020 07:41:[address] [facility] Name Value Range Interpretation Code Description Data Elizabeth rce(s) Supporting Document(s) FOLATE > 24.00 NG/ML 3.40-24.00 H [facility] ID Date Data Source [id number] 12/07/2019 07:33:[address] [facility] Name Value Range Interpretation Code Description Data Elizabeth rce(s) Supporting Document(s) WHITE BLOOD COUNT 5.31 10^3/uL 4.00-10.50 N [facility] RED BLOOD COUNT 4.05 10^6/uL 3.90-5.20 N [facility] th HEMOGLOBIN 11.9 G/DL 11.5-15.6 N [facility] HEMATOCRIT 35.6 % 35.0-46.0 [facility] MCV 87.9 FL 80.0-100.0 N [facility] MCH 29.4 PG 27.0-34.0 [facility] MCHC 33.4 G/DL 32-36 N [facility] RDW 14.2 % 11.5-14.5 [facility] PLATELET COUNT 207 10^3/uL 130-400 N [facility] MPV 11.5 FL 8.7-13.2 N [facility] ID Date Data Source [id number] 12/07/2019 07:48:[address] [facility] Name Value Range Interpretation Code Description Data Elizabeth rce(s) Supporting Document(s) SODIUM 143 MEQ/L 135-145 N [facility] POTASSIUM 4.6 MEQ/L 3.5-5.3 N [facility] CHLORIDE 109 MEQ/L 94-110 [facility] CARBON DIOXIDE 29 MEQ/L 22-33 N [facility] ANION GAP 10 5-16 N [facility] BLOOD UREA NITRO 15 MG/DL 7-25 N [facility] CREATININE 0.6 MG/DL 0.6-1.4 N [facility] GFR > 90.0 ML/MIN [facility] Stage G1 - Normal or high kidney functi on GFR normal is >=90 The MDRD GFR calculation is considered valid between the ages of 18 and 75 years only. The GFR is an estimate of the Glomerular Filtration Rate. It is considered accurate in evaluating patients with Chronic Kidney Disease,but may underestimate kidney function in Healthy Patients. BUN/CREAT RATIO 25 8-36 N [facility] GLUCOSE 87 MG/DL 70-100 N [facility] CA 9.5 MG/DL 8.7-10.5 N [facility] ID Date Data Source [id number] 12/07/2019 07:48:00 AM [facility] Name Value Range Interpretation Code Description Data Elizabeth rce(s) Supporting Document(s) TSH 1.627 uIU/ML 0.470-4.200 N [facility] Patients should not be tested for 70 ho urs post fluorescein dye angiography. A false depression of result may occur. ID Date Data Source [id number] 11/07/2019 09:00:00 AM [facility] Name Value Range Interpretation Code Description Data Elizabeth rce(s) Supporting Document(s) SODIUM 145 MEQ/L 135-145 N [facility] POTASSIUM 4.5 MEQ/L 3.5-5.3 N [facility] CHLORIDE 108 MEQ/L 94-110 N [facility] CARBON DIOXIDE 29 MEQ/L 22-33 N [facility] ANION GAP 13 5-16 N [facility] BLOOD UREA NITRO 17 MG/DL 7-25 N [facility] CREATININE 0.7 MG/DL 0.6-1.4 N [facility] GFR > 90.0 ML/MIN [facility] Stage G1 - Normal or high kidney functi on GFR normal is >=90 The MDRD GFR calculation is considered valid between the ages of 18 and 75 years only. The GFR is an estimate of the Glomerular Filtration Rate. It is considered accurate in evaluating patients with Chronic Kidney Disease,but may underestimate kidney function in Healthy Patients. BUN/CREAT RATIO 24 8-36 N [facility] GLUCOSE 81 MG/DL 70-100 N [facility] CA 9.9 MG/DL 8.7-10.5 N [facility] ID Date Data Source [id number] 10/17/2019 08:23:00 AM [facility] Name Value Range Interpretation Code Description Data Elizabeth rce(s) Supporting Document(s) SODIUM 144 MEQ/L 135-145 N [facility] POTASSIUM 5.0 MEQ/L 3.5-5.3 N [facility] CHLORIDE 109 MEQ/L 94-110 N [facility] CARBON DIOXIDE 27 MEQ/L 22-33 N [facility] ANION GAP 13 5-16 N [facility] BLOOD UREA NITRO 14 MG/DL 7-25 N [facility] CREATININE 0.8 MG/DL 0.6-1.4 N [facility] GFR > 60.0 ML/MIN [facility] GFR normal is >60 The MDRD GFR calculat ion is considered valid between the ages of 18 and 75 years only. The GFR is an estimate of the Glomerular Filtration Rate. It is considered accurate in evaluating patients with Chronic Kidney Disease,but may underestimate kidney function in Healthy Patients. BUN/CREAT RATIO 17 8-36 N [facility] GLUCOSE 75 MG/DL 70-100 N [facility] CA 9.6 MG/DL 8.7-10.5 N [place] ID Date Data Source [id number] 10/12/2019 07:47:00 AM [employer] Name Value Range Interpretation Code Description Data Elizabeth rce(s) Supporting Document(s) SODIUM 148 MEQ/L 135-145 H [facility] POTASSIUM 3.4 MEQ/L 3.5-5.3 L [facility] CHLORIDE 108 MEQ/L 94-110 N [facility] CARBON DIOXIDE 31 MEQ/L 22-33 N [facility] ANION GAP 12 5-16 N [facility] BLOOD UREA NITRO 11 MG/DL 7-25 N [facility] CREATININE 0.8 MG/DL 0.6-1.4 N [facility] GFR > 60.0 ML/MIN [facility] GFR normal is >60 The MDRD GFR calculat ion is considered valid between the ages of 18 and 75 years only. The GFR is an estimate of the Glomerular Filtration Rate. It is considered accurate in evaluating patients with Chronic Kidney Disease,but may underestimate kidney function in Healthy Patients. BUN/CREAT RATIO 13 8-36 N [place] GLUCOSE 93 MG/DL 70-100 N [facility] CA 9.4 MG/DL 8.7-10.5 N [place] ID Date Data Source [id number] 10/12/2019 07:47:00 AM EST [facility] Name Value Range Interpretation Code Description Data Elizabeth rce(s) Supporting Document(s) MAGNESIUM 1.9 mg/dl 1.8-2.4 N [facility] ID Date Data Source [id number] 10/10/2019 11:30:02 AM EST [facility] NT INFORMATIONPatient MRN Name Date of Age Gend*PT [id number] Madhavi Montalvo 1980 39 years F IPPT Location Admission Date/Time Visit ID Attending [id number] 09/23/19 1350 --- --- EPI ID CSN Admitting Provider [id number] Viola Suarez MD([id number]) Attestation signed by Mt Rosenbaum MD at 10/10/2019 11:30 AMPatient seen and examined independently, I agree with plan outlined by ARIANE Alexandre. [facility] DISCHARGE SUMMARYPatient Name: Madhavi Montalvo of : 1980 Age 39 yearsPrimary Physician: RADHA Romeo PCP Fjmurkisz Date: 09/23/2019 Discharge Date: 10/05/2019She will be discharged from [facility] to STR/SNF.Discharge Diagnoses:Principal Problem: Wernicke's encephalopathyActive Problems: [...] intoinhaler and inhale dailySTOP taking these medications xwjnernqtr-adphiuirfjcjr-invuerrd (FIORICET, ESGIC) 50-325-40 MG per tablet cyclobenzaprine [...] given an after visit summary.Follow up with MD/DECK CADET/PA at SNF/STR.Repeat BMP/CBC weekly for the first 2 weeks.Brief Hospital Course: This is a 39-year-old white female with a past medical historysignificant for Sjogren's disease, hypertension, PCOS, lupus, fibromyalgia,anxiety/depression, migraines, IBS, and a status post gastric bypass withmarginal ulcer who initially presented to [facility] ER after her son foundher unresponsive on unknown date and was then transferred to [facility] on 09/08/2019. At [facility], her U tox is positive for metabolites [...] IV Keppra. She was evaluated byneurology at [facility] and they opined that her presentation was mostly related totoxic exposure to substances including amphetamine, cannabinoids, andanticholinergic agents. Ultimate working diagnosis at [facility] was that the patienthad toxic-metabolic encephalopathy. She was started on IV thiamine on09/13/2019. While at [facility], from 09/22/2019 to 09/23/2019 she was noted to haveprogressive deterioration in sensorium with acute hypoxic respiratory failurenecessitating intubation following which she was transferred to [facility] on 09/23/2019 for higher level of care. [...] tube. On 10/04/2019, she was seen by [facility]SE [facility], a bedside swallowevaluation was completed and her diet has been advanced to pur ed solids honeythickened liquids, medications crushed in applesauce. Wernicke's encephalopathy--Continue thiamine supplementation. Continue supportive care measures.Re-orient as needed. Avoid deleriogenic medications. OP dysphagia--Status post [facility]PER bedside evaluation, diet advance to pur ed [...] normal and symmetricDiagnostics:Imaging:Mri Brain Without ContrastResult Date: 09/25/2019. [place] [address] Patient Name: RIKY MONTALVO : 1980 Sex: [...] GODOY On 09/25/2019 8:10 AM Workstation ID: [id number] - [id number] Chest PortableResult Date: 10/01/2019[place] [address] Patient Name: RIKY MONTALVO : 1980 Sex: [...] VIVIANA On 10/01/2019 11:02 AM Workstation ID: [id number] - [id number] Chest PortableResult Date: 09/28/2019[place] [address] Patient Name: RIKY MONTALVO : 1980 Sex: [...] BRANDI GODOY On 09/28/2019 1:15 PM WorkstationID: [id number] - [id number] Chest PortableResult Date: 09/25/2019[place] [address] Patient Name: RIKY MONTALVO : 1980 Sex: [...] ASTER MATUTE On09/25/2019 2:35 PM Workstation ID: [id number] - [id number] Chest PortableResult Date: 09/23/2019[place] [address] Patient Name: RIKY MONTALVO : 1980 Sex: [...] MATTHIAS FLEMING On 09/23/2019 5:29 PMWorkstation ID: [id number] - [id number] Chest PortableResult Date: 09/23/2019[place] [address] Patient Name: RIKY MONTALVO : 1980 Sex: [...] left pleural effusion. Report electronically signedby: CALLUM ABREU On 09/23/2019 2:50 PM Workstation ID: [id number] - [id number] Lower Extremity Venous Doppler BilateralResult Date: 09/23/2019[place] [address] Patient Name: RIKY MONTALVO : 1980 Sex: F Ordering Provider: JUANJO VERDUGO AuthorizingProv: JUANJO VERDUGO Referring Provider: Procedure Performed: US LOWEREXTREMITY VENOUS BILATERAL Exam Date: 09/23/2019 20:20 AccessionNumber: [id number] Patient Class: Inpatient Reason forExam: hypoxia Technique: Duplex sonography was performed. Comparison: NoneFindings: Bilateral common femoral, superficial femoral, and popliteal veins arecompressible. Flow was documented with color and spectral Doppler.IMPRESSION: No evidence of deep venous thrombosis. Report electronically signedby: MATTHIAS FLEMING On 09/23/2019 8:56 PM Workstation ID: [id number]:EEG REPORT Name: Madhavi MontalvoMRN: [id number]: September 23, 2019 EEG # [id number] SEX: female ROOM: [place] [address] REF: [place] Medications: Levetiracetam, fentanyl, Propofol Date [...] in the setting of sedation. Signature: Skylar Cueto MDDate: September 23, 2019Time: 5:24 PMSwallow Treatment Patient Name:Madhavi Montalvo Date of : 1980 Length of POWERHOUSE HELPER TreatmentLength of Treatment: 30 ImpressionsImpressions: Oral Dysphagia, [...] (H) 10/03/2019 PLT 305 10/03/2019 MPV 8.8 10/03/2019Joeusebia Ardon, NP10:49 AMTotal time spent for discharge on date of discharge: 40 minutes Name Value Range Interpretation Code Description Data Elizabeth rce(s) Supporting Document(s) ID Date Data Source [id number] 10/10/2019 08:18:00 AM EST [facility] Name Value Range Interpretation Code Description Data Elizabeth rce(s) Supporting Document(s) SODIUM 146 MEQ/L 135-145 [facility] POTASSIUM 3.0 MEQ/L 3.5-5.3 L [facility] CHLORIDE 104 MEQ/L 94-110 [facility] CARBON DIOXIDE 30 [facility]Q/L 22-[facility] 15 5-[facility] BLOOD UREA NITRO 12 MG/DL 7-25 [facility] CREATININE 0.7 MG/DL 0.6-1.4 [facility] GFR > 60.0 ML/MIN [facility] GFR normal is >60 The MDRD GFR calculat ion is considered valid between the ages of 18 and 75 years only. The GFR is an estimate of the Glomerular Filtration Rate. It is considered accurate in evaluating patients with Chronic Kidney Disease,but may underestimate kidney function in Healthy Patients. BUN/CREAT RATIO 17 8-36 N [facility] GLUCOSE 76 MG/DL 70-[facility] CA 9.4 MG/DL 8.7-10.5 N [facility] ID Date Data Source [id number] 10/07/2019 07:18:00 AM [facility] Name Value Range Interpretation Code Description Data Elizabeth rce(s) Supporting Document(s) WHITE BLOOD COUNT 10.12 10^3/uL 4.00-10.50 [facility] RED BLOOD COUNT 3.38 10^6/uL 3.90-5.20 [facility] HEMOGLOBIN 9.8 G/DL 11.5-15.6 L [facility] HEMATOCRIT 31.0 % 35.0-46.0 [facility] MCV 91.7 FL 80.0-100.0 N [facility] MCH 29.0 PG 27.0-34.0 N [facility] MCHC 31.6 G/DL 32-36 [facility] RDW 14.4 % 11.5-14.5 [facility] PLATELET COUNT 429 10^3/uL 130-400 H [facility] MPV 11.2 FL 8.7-13.2 N [facility] GRAN % (AUTO) 64.1 % 42.0-75.0 N [facility] LYMPH % (AUTO) 24.1 % 20.0-51.0 N [facility] MONO % (AUTO) 7.4 % 2.0-15.0 N [facility] EOS % (AUTO) 2.6 % 0.0-11.0 N [facility] BASO % (AUTO) 1.4 % 0.0-2.0 N [facility] IG % (AUTO) 0.4 % 1.00-5.00 [facility] IG # (AUTO) 0.0 10^3/uL <0.5 [facility] GRAN # (AUTO) 6.49 10^3/uL 1.50-6.50 [facility] LYMPH # (AUTO) 2.4 k/uL 1.0-5.0 N [facility] MONO # (AUTO) 0.75 k/uL 0.20-1.50 [facility] EOS # (AUTO) 0.26 10^3/uL 0.00-1.10 [facility] BASO # (AUTO) 0.14 10^3/uL 0.00-0.20 [facility] ID Date Data Source [id number] 10/07/2019 07:51:00 AM EST [facility] Name Value Range Interpretation Code Description Data Elizabeth rce(s) Supporting Document(s) SODIUM 150 MEQ/L 135-145 [facility] POTASSIUM 3.1 MEQ/L 3.5-5.3 L [facility] CHLORIDE 106 MEQ/L 94-110 [facility] CARBON DIOXIDE 30 MEQ/L 22-33 [facility] ANION GAP 17 5-16 [facility] BLOOD UREA NITRO 16 MG/DL 7-25 [facility] CREATININE 0.9 MG/DL 0.6-1.4 [facility] GFR > 60.0 ML/MIN [facility] GFR normal is >60 The MDRD GFR calculat ion is considered valid between the ages of 18 and 75 years only. The GFR is an estimate of the Glomerular Filtration Rate. It is considered accurate in evaluating patients with Chronic Kidney Disease,but may underestimate kidney function in Healthy Patients. BUN/CREAT RATIO 17 8-36 N [facility] GLUCOSE 78 MG/DL 70-100 N [facility] CA 9.7 MG/DL 8.7-10.5 N [facility] BILIRUBIN,TOTAL 0.3 MG/DL 0.1-1.3 N [facility] AST 14 U/L 5-40 [facility] ALT 14 U/L 5-48 [facility] ALKALINE PHOSPHATASE 83 U/L 40-140 N [facility] alth TOTAL PROTEIN 6.3 G/DL 5.9-8.3 N [facility] ALBUMIN 4.0 G/DL 3.0-5.1 [facility] GLOBULIN 2.3 G/DL 1.5-3.5 [facility] ALB/GLOB RATIO 1.7 G/DL 1.0-2.7 N [facility] ID Date Data Source [id number] 10/04/2019 08:49:43 AM EST [facility] Name Value Range Interpretation Code Description Data Elizabeth rce(s) Supporting Document(s) POC NOVA GLU 100 mg/dL (70-99) H [facility] [place] [facility] CLINICAL STAFF ID Date Data Source [id number] 10/04/2019 06:53:38 AM EST [facility] Name Value Range Interpretation Code Description Data Elizabeth rce(s) Supporting Document(s) POC NOVA GLU 100 mg/dL (70-99) [facility] [place] [facility] ID Date Data Source [id number] 10/04/2019 04:46:59 AM EST [facility] Name Value Range Interpretation Code Description Data Elizabeth rce(s) Supporting Document(s) POC NOVA GLU 96 mg/dL (70-99) [facility] [place] [facility] ID Date Data Source [id number] 10/04/2019 03:52:27 AM EST [facility] Name Value Range Interpretation Code Description Data Elizabeth rce(s) Supporting Document(s) POC NOVA GLU 98 mg/dL (70-99) [facility] [place] [facility] ID Date Data Source [id number] 10/03/2019 08:24:29 PM EST [facility] Name Value Range Interpretation Code Description Data Elizabeth rce(s) Supporting Document(s) POC NOVA GLU 108 mg/dL (70-99) [facility] [place] [facility] ID Date Data Source [id number] 10/03/2019 05:25:15 PM EST [facility] Name Value Range Interpretation Code Description Data Elizabeth rce(s) Supporting Document(s) POC NOVA GLU 92 mg/dL (70-99) [facility] [place] [facility]IN[facility] STA[facility] ID Date Data Source [id number] 10/03/2019 03:27:37 PM EST [facility] INFORMATIONPatient MRN Name Date of Age Gend*PT [id number] Madhavi Montalvo 1980 39 years F IPPT Location Admission Date/Time Visit ID Attending [id number] 09/23/19 1350 --- Katherine Reaves MD([id number]) EPI ID CSN Admitting Provider [id number] Viola Suarez MD([id number])ConsultsPatient seen briefly this morning in follow-up. She [...] agree that the patient will need a half-way facility, and hopefullywill have rehabilitative services as [...] rce(s) Supporting Document(s) ID Date Data Source [id number] 10/03/2019 12:57:05 PM EST [facility] Name Value Range Interpretation Code Description Data Elizabeth rce(s) Supporting Document(s) POC NOVA GLU 110 mg/dL (70-99) [facility] [place] [facility] ID Date Data Source [id number] 10/03/2019 07:56:01 AM EST [facility] Name Value Range Interpretation Code Description Data Elizabeth rce(s) Supporting Document(s) POC NOVA GLU 100 mg/dL (70-99) [facility] [place] [facility] ID Date Data Source [id number] 10/03/2019 06:56:39 AM EST [facility] Name Value Range Interpretation Code Description Data Elizabeth rce(s) Supporting Document(s) SODIUM 145 mmol/L (136-145) [facility] POTASSIUM 3.7 mmol/L (3.6-5.2) [facility] CHLORIDE 106 mmol/L (100-108) [facility] CO2 32 mmol/L (22-31) [facility] ANION GAP 7 mmol/L (7-16) [facility] UREA NITROGEN 14 mg/dL (7-24) [facility] CREATININE 0.99 mg/dL (0.60-1.00) [facility] BUN/CREAT RATIO 14.1 RATIO (10.0-20.0) [facility] GLUCOSE 104 mg/dL (70-99) [facility] CALCIUM 8.8 mg/dL (8.4-10.2) [facility] GFR >60 ml/min/1.73m2 (>59) [facility] GFR ( AM) >60 ml/min/1.73m2 (>59) [facility] GFR INTERPRETATION [facility] --NORMAL KIDNEY FUNCTION OR MILD DISEASE - GFR >OR= 60CHRONIC KIDNEY DISEASE - GFR 15 - 59RENAL FAILURE - GFR <15 Est. GFR calculation based on the MDRDstudy equation, which assumes a steadystate for creatinine. Est. GFR should notbe used for medication dosing. ID Date Data Source [id number] 10/03/2019 06:30:11 AM EST [facility] Name Value Range Interpretation Code Description Data Elizabeth rce(s) Supporting Document(s) WBC 8.9 10*3/uL (4.1-11.0) [facility] [place] RBC 3.22 10*6/uL (4.00-5.40) L [facility] HGB 9.4 g/dL (12.0-16.0) [facility] HCT 29.0 % (36.0-47.0) [facility] MCV 90.0 fL (80.0-95.0) [facility] MCH 29.1 pg (27.0-32.0) [facility] MCHC 32.4 g/dL (32.0-36.0) [facility] RDW 15.4 % (10.5-14.5) [facility] PLT 305 10*3/uL (150-450) [facility] MPV 8.8 fL (7.1-10.7) Lab [facility] ID Date Data Source [id number] 10/03/2019 04:24:25 AM EST [facility] Name Value Range Interpretation Code Description Data Elizabeth rce(s) Supporting Document(s) POC NOVA GLU 102 mg/dL (70-99) H [facility]FOR[facility] ID Date Data Source [id number] 10/02/2019 11:59:51 PM EST [facility] Name Value Range Interpretation Code Description Data Elizabeth rce(s) Supporting Document(s) POC NOVA GLU 94 mg/dL (70-99) [facility] ID Date Data Source [id number] 10/02/2019 07:55:05 PM EST [facility] Name Value Range Interpretation Code Description Data Elizabeth rce(s) Supporting Document(s) POC NOVA GLU 103 mg/dL (70-99) [facility] ID Date Data Source [id number] 10/02/2019 04:43:30 PM EST [facility] Name Value Range Interpretation Code Description Data Elizabeth rce(s) Supporting Document(s) POC NOVA GLU 108 mg/dL (70-99) [facility] ID Date Data Source [id number] 10/02/2019 11:48:32 AM EST [facility] Name Value Range Interpretation Code Description Data Elizabeth rce(s) Supporting Document(s) POC NOVA GLU 125 mg/dL (70-99) [facility] ID Date Data Source [id number] 10/02/2019 08:18:51 AM EST [facility] Name Value Range Interpretation Code Description Data Elizabeth rce(s) Supporting Document(s) POC NOVA GLU 118 mg/dL (70-99) H [facility] Procedure Social History Code Duration Value Status Description Data Source(s ) 05/09/2020 03:54:00 AM EDT Former Smoker completed Former Smoker [facility] Smoking 05/09/2020 03:54:00 AM EDT Ex-smoker (finding) complet ed Ex-smoker (finding) [facility] 04/16/2020 12:00:00 AM EDT Current Cigarette Smoker 1 Pack Daily completed Current Cigarette Smoker 1 Pack Daily [facility] [employer] [facility] [place] 03/28/2020 05:53:00 PM EDT Former Smoker completed Former Smoker [facility] 03/28/2020 05:53:00 PM EDT Ex-smoker (finding) complet ed Ex-smoker (finding) [facility] 03/28/2020 05:53:00 PM EDT Former Smoker completed Former Smoker [facility] Smoking 03/28/2020 05:53:00 PM EDT Ex-smoker (finding) complet ed Ex-smoker (finding) [facility] 03/28/2020 05:53:00 PM EDT Former Smoker completed Former Smoker [facility] Smoking 03/28/2020 05:53:00 PM EDT Ex-smoker (finding) complet ed Ex-smoker (finding) [facility] 03/28/2020 02:41:29 PM EDT Former Smoker completed Former Smoker [facility] Smoking 03/28/2020 02:41:00 PM EDT Ex-smoker (finding) complet ed Ex-smoker (finding) [facility] Vital Signs ID Date Data Source UNK Name Value Range Interpretation Code Description Data Source(s) Diastolic blood pressure 77 mm[Hg] 77 mm[Hg] [facility] Systolic blood pressure 112 mm[Hg] 112 mm[Hg] [facility] [employer] Oxygen saturation in Arterial blood by Pulse oximetry 98 % 98 % [facility] Respiratory rate 16 /min 16 /min [facility] Heart rate 68 /min 68 /min [facility] Body temperature 98.3 [degF] 98.3 [degF] [facility] Body weight 70.00 kg 70.00 kg [facility] Body mass index (BMI) [Ratio] 25.1 kg/m2 25.1 k g/m2 [facility] ([facility] [employer] [place] Body weight 70.478 kg 70.478 kg [facility] ([facility] [employer] [facility] [place] Body weight 155.38 [lb_av] 155.38 [lb_av] [facility] ([employer] [place]) Body height 66 [in_i] 66 [in_i] [facility] ([facility] [employer] [facility] [place]) 5'6" Diastolic blood pressure 74 mm[Hg] 74 mm[Hg] [facility] Systolic blood pressure 125 mm[Hg] 125 mm[Hg] [facility] Heart rate 60 /min 60 /min [facility] Diastolic blood pressure 74 mm[Hg] 74 mm[Hg] [facility] Systolic blood pressure 125 mm[Hg] 125 mm[Hg] [facility] Heart rate 60 /min 60 /min [facility] Diastolic blood pressure 74 mm[Hg] 74 mm[Hg] [facility] Systolic blood pressure 125 mm[Hg] 125 mm[Hg] [facility] Heart rate 60 /min 60 /min [facility] Oxygen saturation in Arterial blood by Pulse oximetry 100 % 100 % [facility] 16 /min 16 /[facility] Body temperature 98.4 [degF] 98.4 [degF] [facility] Oxygen saturation in Arterial blood by Pulse oximetry 100 % 100 % [facility] Respiratory rate 16 /min 16 /min [facility] Body temperature 98.4 [degF] 98.4 [degF] [facility] Oxygen saturation in Arterial blood by Pulse oximetry 100 % 100 % [facility] Respiratory rate 16 /min 16 /min [facility] Body temperature 98.4 [degF] 98.4 [degF] [facility] Body mass index (BMI) [Ratio] 26.1 kg/m2 26.1 k g/m2 [facility] Body height 165.00 cm 165.00 cm [facility] Body mass index (BMI) [Ratio] 26.1 kg/m2 26.1 k g/m2 [facility] Body height 165.00 cm 165.00 cm [facility] Body mass index (BMI) [Ratio] 26.1 kg/m2 26.1 k g/m2 [facility] Body height 165.00 cm 165.00 cm [facility] Body weight 71.20 kg 71.20 kg [facility] Body weight 71.20 kg 71.20 kg [facility] Body weight 71.20 kg 71.20 kg [facility] Diastolic blood pressure 75 mm[Hg] 75 mm[Hg] [facility] Systolic blood pressure 130 mm[Hg] 130 mm[Hg] [facility] Oxygen saturation in Arterial blood by Pulse oximetry 100 % 100 % [facility] Respiratory rate 18 /min 18 /min [facility] Heart rate 53 /min 53 /min [facility] Body temperature 98.2 [degF] 98.2 [degF] [facility] Body weight 70.00 kg 70.00 kg [facility] Body height 165.1 cm 165.1 cm [facility] Heart rate 79 /min 79 /min [facility] Diastolic blood pressure 86 mm[Hg] 86 mm[Hg] [facility] Systolic blood pressure 147 mm[Hg] 147 mm[Hg] [facility] Body temperature 36.61 Karri 36.61 Karri [facility] Oxygen saturation in Arterial blood by Pulse oximetry 97 % 97 % [facility] Respiratory rate 14 /min 14 /min [facility] ID Date Data Source [id number] 03/06/2020 02:08:00 PM EDT [facility] Name Value Range Interpretation Code Description Data Source(s) WEIGHT 81.5 kilos 81.5 kilos [facility] HEIGHT 167.64 centimeters 167.64 centimeter s [facility] WEIGHT 85 kilos 85 kilos [facility] HEIGHT 167.64 centimeters 167.64 centimeter s [facility] WEIGHT 83 kilos 83 kilos [facility] HEIGHT 167.64 centimeters 167.64 centimeter s [facility] WEIGHT 86 kilos 86 kilos [facility] HEIGHT 167.64 centimeters 167.64 centimeter s [facility] WEIGHT 84.9 kilos 84.9 kilos [facility] HEIGHT 167.64 centimeters 167.64 centimeter s [facility] WEIGHT 88 kilos 88 kilos [facility] HEIGHT 167.64 centimeters 167.64 centimeter s [facility] WEIGHT 84 kilos 84 kilos [facility] HEIGHT 167.64 centimeters 167.64 centimeter s [facility] WEIGHT 79.4 kilos 79.4 kilos [facility] HEIGHT 167.64 centimeters 167.64 centimeter [facility] WEIGHT 75.6 kilos 75.6 kilos [facility] HEIGHT 167.64 centimeters 167.64 centimeter [facility] WEIGHT 75.3 kilos 75.3 kilos [facility] HEIGHT 167.64 centimeters 167.64 centimeter [facility] WEIGHT 67.7 kilos 67.7 kilos [facility] HEIGHT 167.64 centimeters 167.64 centimeter [facility] Patient Treatment Plan of Care Planned Activity Planned Date Details Description Data Source (s) Naproxen 500 MG Oral Tablet 07/26/2020 12:00:00 AM [facility] Folic Acid 1 MG Oral Tablet 07/26/2020 12:00:00 AM [facility] [place]ine Hydrochloride 5 MG Oral Tablet 07/26/2020 12:00:00 AM [facility] Hydroxychloroquine Sulfate 200 MG Oral Tablet 07/26/2020 12:00:00 A M [facility] Methotrexate 2.5 MG Oral Tablet 07/26/2020 12:00:00 AM [facility] gabapentin 400 MG Oral Capsule 07/26/2020 12:00:00 AM [facility] Thiamine 100 MG Oral Tablet 10/06/2019 12:00:00 [...] 5 MG Oral Tablet 08/30/2019 12:00:00 AM [facility] Methotrexate 2.5 MG Oral Tablet 08/30/2019 12:00:00 AM [facility] Hydroxychloroquine Sulfate 200 MG Oral Tablet 06/24/2019 12:00:00 A M EDT [facility] Folic Acid 1 MG Oral Tablet 06/24/2019 12:00:00 AM [facility] gabapentin 400 MG Oral Capsule 06/24/2019 12:00:00 AM [facility] Cyclobenzaprine hydrochloride 5 MG Oral Tablet 09/03/2017 12:00:00 AM EDT [facility] Trazodone Hydrochloride 100 MG Oral Tablet [facility] topiramate 100 MG Oral Tablet [facility] Sucralfate 1000 MG Oral Tablet [facility] Hydroxyzine Pamoate 50 MG Oral Capsule [facility] Metoclopramide 10 MG Oral Tablet [facility] Lorazepam 1 MG Oral Tablet S [facility] 24 HR Nifedipine 60 MG Extended Release Oral Tablet [facility] olanzapine 20 MG Oral Tablet [facility] Acetaminophen 325 MG / butalbital 50 MG / Caffeine 40 MG Oral Table t [facility] Diphenhydramine Hydrochloride 25 MG Oral Tablet [facility] Ondansetron 4 MG Disintegrating Oral Tablet [facility] Misoprostol 0.2 MG Oral Tablet [facility] Pilocarpine Hydrochloride 5 MG Oral Tablet [facility] gabapentin 400 MG Oral Capsule [facility] Naproxen 500 MG Oral Tablet [facility]
[2020-12-01 06:31] VITALS: BP 120/78
== END 2020-12-01 06:45 | disposition home or self-care (01) ==
LOC: M ED 05:08
DX: G89.29 Other chronic pain (principal); Z79.899 Other long term (current) drug therapy; Z79.890 Hormone replacement therapy; Z88.1 Allergy status to other antibiotic agents; Z88.2 Allergy status to sulfonamides; Z88.8 Allergy status to other drugs, medicaments and biological substances; Z91.040 Latex allergy status
CPT/HCPCS: 96372; 99284; J1885

== ENCOUNTER 2020-12-08 05:14 | Emergency (ER) | payer MEDICARE, MEDICAID ==
[~2020-12-08] VITALS: Ht 170.2 cm; Wt 90.9 kg
[~2020-12-08 05:14] MED LIST changes: +ZYPR5TAB2 PO
[2020-12-08 05:27] VITALS: BP 147/75
[2020-12-08] MEDS ORDERED: KETOROLAC 30 MG/ML 1ML VIAL IM ONE (05:30)
== END 2020-12-08 05:54 | disposition home or self-care (01) ==
LOC: M ED 05:14
DX: G89.29 Other chronic pain (principal); M54.6 Pain in thoracic spine; Z88.1 Allergy status to other antibiotic agents; Z88.2 Allergy status to sulfonamides; Z88.6 Allergy status to analgesic agent; Z88.8 Allergy status to other drugs, medicaments and biological substances; Z79.899 Other long term (current) drug therapy
CPT/HCPCS: 96372; 99283; J1885

== ENCOUNTER 2020-12-09 11:51 | Emergency (ER) | payer MEDICARE, MEDICAID ==
[~2020-12-09] VITALS: Ht 170.2 cm; Wt 92.7 kg
[2020-12-09 12:55] LABS: HEMATOCRIT 38.2 % (36.0-47.0); HEMOGLOBIN 12.1 g/dl (12.0-15.5); MEAN CORPUSCULAR HEMOGLOBIN 30.3 pg (27.0-33.0); MEAN CORPUSCULAR HGB CONC 31.7 g/dl (32.0-36.5); MEAN CORPUSCULAR VOLUME 95.5 fl (80.0-96.0); PLATELET COUNT, AUTOMATED 296 10^3/uL (150-450); WHITE BLOOD COUNT 12.1 10^3/uL (4.0-10.0)
[2020-12-09 13:11] VITALS: BP 161/100
[2020-12-09 13:15] LABS: AMPHETAMINES LEVEL URINE NEGATIVE (NEGATIVE); BARBITURATES URINE POSITIVE (NEGATIVE); BENZODIAZEPINES URINE NEGATIVE (NEGATIVE); CANNABINOIDS URINE NEGATIVE (NEGATIVE); COCAINE METABOLITE URINE NEGATIVE (NEGATIVE); METHADONE URINE NEGATIVE (NEGATIVE); OPIATES URINE NEGATIVE (NEGATIVE); PHENCYCLIDINE URINE NEGATIVE (NEGATIVE)
[2020-12-09 13:23] LABS: ACETAMINOPHEN LEVEL < 2.0 UG/ML (10.0-30.0); ALBUMIN 3.1 GM/DL (3.2-5.2); ALT/SGPT 15 U/L (12-78); BILIRUBIN,DIRECT < 0.1 MG/DL (0.0-0.2); BILIRUBIN,TOTAL 0.2 MG/DL (0.2-1.0); BLOOD UREA NITROGEN 7 MG/DL (7-18); CARBON DIOXIDE LEVEL 27 MEQ/L (21-32); CHLORIDE LEVEL 107 MEQ/L (98-107); CREATININE FOR GFR 0.85 MG/DL (0.55-1.30); ETHYL ALCOHOL (ETHANOL) < 0.003 % (0.000-0.010); GLOMERULAR FILTRATION RATE > 60.0 (>58); GLUCOSE, FASTING 55 MG/DL (70-100); POTASSIUM SERUM 4.2 MEQ/L (3.5-5.1); SALICYLATE LEVEL 5.1 MG/DL (5.0-30.0); SODIUM LEVEL 139 MEQ/L (136-145); TOTAL PROTEIN 5.5 GM/DL (6.4-8.2)
== END 2020-12-09 13:56 | disposition home or self-care (01) ==
LOC: M ED 11:51
DX: F33.9 Major depressive disorder, recurrent, unspecified (principal); R45.851 Suicidal ideations; I10 Essential (primary) hypertension; J44.9 Chronic obstructive pulmonary disease, unspecified; M79.7 Fibromyalgia; F79 Unspecified intellectual disabilities; Z98.84 Bariatric surgery status; F17.200 Nicotine dependence, unspecified, uncomplicated; Z88.2 Allergy status to sulfonamides; Z88.8 Allergy status to other drugs, medicaments and biological substances; Z91.040 Latex allergy status; Z79.899 Other long term (current) drug therapy
CPT/HCPCS: 36415; 80048; 80076; 80307; 84443; 85027; 99284; G0480

== ENCOUNTER → 2020-12-17 | Outpatient (REF) | payer MEDICARE, MEDICAID ==
[~2020-12-17] MED LIST changes: -METH-1165 PO; +METH750T2 PO; -MONT10TA10 PO; +MONT5TAB2 PO
[2020-12-17 17:55] LABS: ALBUMIN 3.6 GM/DL (3.2-5.2); ALT/SGPT 13 U/L (12-78); BILIRUBIN,TOTAL 0.2 MG/DL (0.2-1.0); BLOOD UREA NITROGEN 13 MG/DL (7-18); CALCIUM LEVEL 9.3 MG/DL (8.5-10.1); CARBON DIOXIDE LEVEL 23 MEQ/L (21-32); CHLORIDE LEVEL 106 MEQ/L (98-107); CREATININE FOR GFR 1.04 MG/DL (0.55-1.30); GLOMERULAR FILTRATION RATE > 60.0 (>58); GLUCOSE, FASTING 61 MG/DL (70-100); SODIUM LEVEL 137 MEQ/L (136-145)
== END ==
LOC: M LAB REF 16:30
PROVIDERS: ATTEND Physician Assistant
DX: K76.0 Fatty (change of) liver, not elsewhere classified (principal); E03.9 Hypothyroidism, unspecified

== ENCOUNTER 2020-12-25 11:40 | Emergency (ER) | payer MEDICARE, MEDICAID ==
[~2020-12-25] VITALS: Ht 170.2 cm; Wt 91.0 kg
[~2020-12-25 11:40] MED LIST changes: +METH-1165 PO; -METH750T2 PO; +MONT10TA10 PO; -MONT5TAB2 PO
[2020-12-25] MEDS ORDERED: HYDR-3363 PO (14:11)
[2020-12-25 14:21] VITALS: BP 135/77
== END 2020-12-25 14:28 | disposition home or self-care (01) ==
LOC: M ED 11:40
DX: F41.1 Generalized anxiety disorder (principal); I10 Essential (primary) hypertension; K21.9 Gastro-esophageal reflux disease without esophagitis; F31.9 Bipolar disorder, unspecified; F50.2 Bulimia nervosa; F71 Moderate intellectual disabilities; M32.9 Systemic lupus erythematosus, unspecified; Z98.84 Bariatric surgery status; Z79.899 Other long term (current) drug therapy; Z88.1 Allergy status to other antibiotic agents; Z88.2 Allergy status to sulfonamides; Z88.8 Allergy status to other drugs, medicaments and biological substances; Z91.040 Latex allergy status

== ENCOUNTER 2021-01-02 13:33 | Emergency (ER) | payer MEDICARE, MEDICAID ==
[~2021-01-02] VITALS: Ht 170.2 cm; Wt 89.1 kg
[2021-01-02 14:22] LABS: HEMATOCRIT 39.9 % (36.0-47.0); HEMOGLOBIN 12.9 g/dl (12.0-15.5); MEAN CORPUSCULAR HEMOGLOBIN 30.1 pg (27.0-33.0); MEAN CORPUSCULAR HGB CONC 32.3 g/dl (32.0-36.5); PLATELET COUNT, AUTOMATED 261 10^3/uL (150-450); RED BLOOD COUNT 4.29 10^6/uL (4.00-5.40); WHITE BLOOD COUNT 4.9 10^3/uL (4.0-10.0)
--- OUTSIDE RECORDS SUMMARY | 2021-01-02 14:29 | CCD ---
Author Organization Unknown Address [address] [place] [address] Phone [phone] Care Team Providers Care [facility] [employer] Name Role Phone [facility] 3 [phone] PATI RIVERA [facility] 3 [phone] Allergies Code Code System Name Reaction Severity Status Onset 28790 RxNorm Bupropion Hives Moderate to Severe Active 2231 RxNorm Cephalexin Hives Moderate to Severe Active 4053 RxNorm Erythromycin Base Hives Moderate to Severe Active 6605528 RxNorm Latex Hives Moderate to Severe Active 10747 RxNorm Levofloxacin Hives Moderate to Severe Active 507352 RxNorm Lexapro Hives Moderate to Severe Active 15395 RxNorm Lisinopril Hives Moderate to Severe Active 7646 RxNorm Omeprazole Hives Moderate to Severe Active [id number] RxNorm Sulfur Dioxide Hives Moderate to Severe Active 96039 RxNorm Trimethoprim Hives Moderate to Severe Active Notes: patient states all her allergies are the same reaction she gets hives and her tongue will swell and she has a hard time breating. Medications Name Status Start Date Stop Date acetaminophen 500 mg tablet TAKE TWO TABLETS BY MOUTH EVERY 6 HOURS NEEDED FOR PAIN FOR UP TO 10 DAYS, DO NOT EXCEED SIX TABLETS IN a 24 HOUR PERIOD Active Not available albuterol sulfate HFA 90 mcg/actuation aerosol inhaler Active Not available alprazolam 0.25 mg tablet Completed 2020 baclofen 10 mg tablet three times daily Active Not available baclofen 5 mg tablet Completed 12/18/2020 budesonide-formoterol HFA 160 mcg-4.5 mc g/actuation aerosol inhaler as directed Active Not available buspirone 10 mg tablet Completed buspirone 15 mg tablet Completed buspirone 5 mg tablet Completed 12/18/2020 [id number] 50 mg- 300 mg-40 mg capsule onset of migraines Active Not available calcitriol 0.25 mcg capsule once daily Active Not available cyclobenzaprine 10 mg tablet TAKE ONE TABLET BY MOUTH THREE TIMES DAILY NEEDED FOR MUSCLE SPASMS FOR UP TO 10 DAYS Active Not available doxepin 25 mg capsule oce daily Active Not available duloxetine 30 mg capsule,delayed release three times daily Active Not available duloxetine 60 mg capsule,delayed release Completed 12/18/2020 escitalopram 5 mg tablet Completed gabapentin 100 mg capsule Completed 2020 gabapentin 300 mg capsule Completed 2020 gabapentin 400 mg capsule Completed 2020 gabapentin 600 mg tablet three times daily Active Not available hydrocodone 5 mg-acetaminophen 325 mg tablet Completed 12/18/2020 hydroxychloroquine 200 mg tablet TAKE ONE TABLET BY MOUTH TWICE DAILY Active 12/18/2020 No t available Incruse Ellipta 62.5 mcg/actuation powder for inhalation Complet ed 12/18/2020 levetiracetam 500 mg tablet as directed Active Not available levothyroxine 25 mcg tablet once daily Active Not available methotrexate sodium 2.5 mg tablet once weekly Active Not available metoprolol tartrate 50 mg tablet once daily Active Not available montelukast 10 mg tablet TAKE ONE TABLET BY MOUTH @8PM Active Not avail able naproxen 500 mg tablet TAKE ONE TABLET BY MOUTH TWICE DAILY with meals Active Not available olanzapine 5 mg tablet one daily Active Not available ondansetron 4 mg disintegrating tablet Completed 12/18/2020 pantoprazole 40 mg tablet,delayed releas e once daily Active Not available pentoxifylline ER 400 mg tablet,extended release Active Not available pilocarpine 5 mg tablet Active Not avai lable potassium chloride ER 20 mEq tablet,extended release(part/cryst) Active Not available prednisone 5 mg tablet Completed Spiriva with HandiHaler 18 mcg and inhalation capsules Completed 12/18/2020 sumatriptan 25 mg tablet Completed sumatriptan 50 mg tablet TAKE ONE TABLET BY MOUTH NEEDED Active Not available topiramate 25 mg tablet TAKE ONE TABLET BY MOUTH TWICE DAILY Active No t available tramadol 50 mg tablet Take 1 tablet by mouth every eight hours as needed for pain MDD 150 mg Completed 12/18/2020 trazodone 100 mg tablet Active Not avai lable trazodone 50 mg tablet Completed zolpidem ER 6.25 mg tablet,extended rele ase,multiphase TAKE ONE TABLET BY MOUTH EVERY EVENING NEEDED FOR SLEEP FOR UP TO SEVEN DAYS, MAX DAILY DOSE ONE TABLET Active Not avai lable Problems None recorded. Procedures Date Name Performed by 03/15/2012 Gastric Bypass for Obesity Information n ot available Cholecystectomy Information not avai lable Remove Tonsils and Adenoids Information not available Hysterectomy Information not avai lable Notes: D&C x 10 before hysterectomy Results Lab Results None recorded. Past Encounters 12/18/2020 Lumbar Radiculopathy; Cervical Radiculopathy; Spondylosis without Myelopathy; Cervical Spondylosis without Myelopathy Demarcus Monsivais MD: [id number] [facility] [address], [place] [address], Ph. Social History Tobacco Smoking Status Heavy Tobacco Smoker (1 PPD) Vaccine List None recorded. Plan of Care Reminders Provider Appointments None recorded. Lab None recorded. Referral None recorded. Procedures None recorded. Surgeries None recorded. Imaging None recorded. Vitals Height Weight BMI Blood Pressure 5 ft 7 in 198 lbs 31 kg/m2 107/74 mm[Hg]
--- OUTSIDE RECORDS SUMMARY | 2021-01-02 14:29 | CCD ---
Author Organization Unknown Address [address] [place] [address] Phone [phone] Care Team Providers Care Bulk Pallet Builder Name Role Phone PATI SOSA WOOD HEEL ATTACHER 3 [phone] [facility] 113 [phone] MARÍA CUELLO 2 [phone] CRISTINA JOSUE 2 [phone] Allergies Code Code System Name Reaction Severity Status Onset Bupropion Active 04/13/2018 2231 RxNorm Cephalexin Active 04/13/2018 Erythromycin Active 04/13/2018 9168033 RxNorm Latex Active 04/13/2018 41229 RxNorm Levofloxacin Active 04/13/20 18 77240 RxNorm Lisinopril Active 04/13/2018 7646 RxNorm Omeprazole Active 04/13/2018 1827 RxNorm Buspirone Active 141954 RxNorm Lexapro Active Sulfa (Sulfonamide Antibiotics) Active 50494 RxNorm Trimethoprim Active Medications Name Status Start Date Stop Date albuterol sulfate HFA 90 mcg/actuation a erosol inhaler Inhale 2 puffs 4 times a day by inhalation route. Active Not available baclofen 10 mg tablet Active Not availa ble baclofen 5 mg tablet Completed 11/30/2020 buspirone 10 mg tablet Completed buspirone 15 mg tablet Completed buspirone 5 mg tablet Completed 11/30/2020 [id number]-[id number] 50 mg-300 mg-40 mg capsule Act ibrahima Not available calcitriol 0.25 mcg capsule Active Not available cyclobenzaprine 10 mg tablet TAKE ONE TABLET BY MOUTH THREE TIMES DAILY NEEDED FOR MUSCLE SPASMS FOR UP TO 10 DAYS Active Not available Daily Multivitamin-Minerals tablet Take 1 tablet by oral route. Active Not availa ble doxepin 25 mg capsule Active Not availa ble duloxetine 30 mg capsule,delayed release Active Not available duloxetine 60 mg capsule,delayed release Completed 11/30/2020 escitalopram 5 mg tablet Completed folic acid 1 mg tablet Take 1 tablet every day by oral route. Active Not available gabapentin 100 mg capsule Completed 2020 gabapentin 300 mg capsule Completed 2020 gabapentin 400 mg capsule Completed 2020 gabapentin 600 mg tablet Active Not corinne ilable hydroxychloroquine 200 mg tablet Active Not available Incruse Ellipta 62.5 mcg/actuation powder for inhalation Complet ed 12/17/2020 levetiracetam 500 mg tablet Active Not available levothyroxine 25 mcg tablet Active Not available methotrexate sodium 2.5 mg tablet Active Not available metoprolol tartrate 50 mg tablet Active Not available montelukast 10 mg tablet TAKE ONE TABLET BY MOUTH @8PM Active Not avail able naproxen 500 mg tablet TAKE ONE TABLET BY MOUTH TWICE DAILY with meals Active Not available olanzapine 5 mg tablet Take 1 tablet by oral route in the morning. Active Not available pantoprazole 40 mg tablet,delayed release Completed 11/30/2020 pentoxifylline ER 400 mg tablet,extended release Active Not available pilocarpine 5 mg tablet Active Not avai lable prednisone 5 mg tablet Completed sumatriptan 25 mg tablet Active Not corinne ilable sumatriptan 50 mg tablet TAKE ONE TABLET BY MOUTH NEEDED Active Not available Symbicort 160 mcg-4.5 mcg/actuation HFA aerosol inhaler Inhale 2 puffs twice a day by inhalation route. Active Not available topiramate 25 mg tablet TAKE ONE TABLET BY MOUTH TWICE DAILY Active No t available tramadol 50 mg tablet Take 1 tablet by mouth every eight hours as needed for pain MDD 150 mg Active Not available trazodone 100 mg tablet Take 1 tablet by oral route at bedtime. Active Not available trazodone 50 mg tablet Completed Xiidra 5 % eye drops in a dropperette INSTILL 1 DROP INTO BOTH EYES BY OPHTHALMIC ROUTE 2 TIMES PER DAY APPROXIMATELY 12 HOURS APART Active Not available Notes: Pt states she is allergic to busp iron and need it taken off her list. Pt states levetriacetam makes her angry and gives her insomnia. Pt does not know current dosage of sumatriptan. Problems Name Status Onset Date Source Overweight Unknown 04/13/2018 History Body Mass Index 25-29 - Overweight Active 04/13/2018 History Mental Disorder Unknown 04/13/2018 History Opioid Dependence in Remission Active 04/13/2018 H istory Chronic Pain Syndrome Active 04/13/2018 History Migraine Active 04/13/2018 History Rheumatoid Arthritis Active 04/13/2018 History Hypertensive Disorder Unknown 04/19/2018 History Systemic Lupus Erythematosus Active 04/19/2018 His tory Finding Related to Sleep Unknown 04/27/2018 History Chronic Gastric Ulcer without Hemorrhage and without Perfora tion Active 05/10/2018 History Foreign Body Unknown 05/10/2018 History Chronic Obstructive Lung Disease Active 05/18/2018 History Polyalgia Unknown 05/18/2018 History Tobacco Dependence Caused by Cigarettes Active 05/20/20 History Finding of Defecation Unknown 08/02/2018 History Tobacco Use and Exposure - Finding Unknown 09/13/2018 History Disorder of Skin Unknown 09/13/2018 History Hypersomnia Unknown 09/17/2018 History Pain Unknown 02/02/2019 History Bulimia Nervosa Active 02/15/2019 History Gastric Fistula Active 03/07/2019 History Clinical Finding Unknown 03/07/2019 History Breast Neoplasm Screening Status Unknown 03/30/2019 History Lower Urinary Tract Finding Unknown 05/26/2019 Hist ory Emotional State Finding Unknown 07/06/2019 History Abnormal Weight Loss Unknown 08/26/2019 History Nausea and Vomiting Unknown 08/26/2019 History Eating Disorder Unknown 08/26/2019 History Toxic Metabolic Encephalopathy Active 09/16/2019 Mixed Anxiety and Depressive Disorder Active 12/04/2020 Essential Hypertension Active 12/14/2020 Steatosis of Liver Active 12/14/2020 Hypothyroidism Active 12/17/2020 Wernicke's Disease Active 12/17/2020 Borderline Personality Disorder Active 12/17/2020 Oropharyngeal Dysphagia Active 12/17/2020 Drug Overdose Active 12/17/2020 Drug Seeking Behavior Active 12/17/2020 Procedures Date Name Performed by 11/16/2013 Cholecystectomy Information not avai lable Revision of Gastric Anastomosis with Jej unal Interposition Information not available Gastric Bypass Information not avai lable Total Hysterectomy Information not avai lable Notes: hysterectomy 2009, gall bladder r emoved 2013- , gastric bypass 2012-Dr. Cuello's office, Ulcer Sx , , Results Lab Results None recorded. Past Encounters 12/17/2020 Wernicke's Disease; SjGren's Syndrome; Mixed Anxiety and Depressive Disorder; Rheumatoid Arthritis; Chronic Obstructive Lung Disease; Tobacco Dependence Caused by Cigarettes; Essential Hypertension; Moderate Persistent Asthma; Steatosis of Liver; Hypothyroidism Kalani Agrawal MD: [address] [place] [address], Ph. 12/04/2020 Migraine; Mixed Anxiety and Depressive Disorder; Chronic Pain Pati Sosa [facility]: [address] [place] [address], Ph. 11/30/2020 Nicotine Dependence with Current Use; Mixed Anxiety and Depressive Disorder Pati Sosa [facility]: [address] [place] [address], Ph. Social History Tobacco Smoking Status Heavy Tobacco Smoker (1/2 PPD) Vaccine List Vaccine Type COVID-19 vaccine, vector-nr, rS-ChAdOx1, PF, 0.5 mL 11/23/2020 Plan of Care Patient Goals Improved mental status. Patient Instructions Referral made to psychiatry and behavior al health for you. Your psych meds will be adjusted by your mental health specialist. Please keep appointment with neurologist as scheduled. Referral made to pain management for you today. Please try to maintain good nutrition, adequate rest and adequate fluid intake. Please continue medications as prescribed. Please return to clinic with all medicat ions that you are presently taking. We have made a referral for you today, We will contact you to set this up. Please continue to monitor report and avoid triggers causing increased anxiety and or depression. Please let us know if you need additional assistance. If increased symptoms of anxiety or depression. Please go to the hospital for eval. Reminders Provider Appointments None recorded. Lab None recorded. Referral None recorded. Procedures None recorded. Surgeries None recorded. Imaging None recorded. Vitals 12/17/2020 01:00PM ESTABLISHED [id number] Height Weight BMI Blood Pressure 67 in 198 lbs 11.2 oz 31.1 kg/m2 125/91 mm[H g] 12/04/2020 01:20PM ESTABLISHED [id number] Height Weight BMI Blood Pressure 67 in 208 lbs 6 oz 32.6 kg/m2 141/83 mm[Hg] 11/30/2020 05:00PM ESTABLISHED [id number] Height Weight BMI Blood Pressure 67 in 202 lbs 3.2 oz 31.7 kg/m2 114/77 mm[Hg ] 08/26/2019 Height Weight Blood Pressure 65 in 151 lbs 6.4 oz 119/82 mm[Hg] 07/06/2019 Height Weight Blood Pressure 65 in 160 lbs 2.08 oz 135/100 mm[Hg] 05/26/2019 Height Weight Blood Pressure 65 in 178 lbs 4 oz 106/73 mm[Hg] 05/12/2019 Height Weight Blood Pressure 65 in 179 lbs 109/81 mm[Hg] 03/30/2019 Height Weight Blood Pressure 65 in 186 lbs 4 oz 115/83 mm[Hg] 03/07/2019 Height Weight Blood Pressure 65 in 196 lbs 6.08 oz 124/88 mm[Hg] 02/15/2019 Weight Blood Pressure 200 lbs 120/78 mm[Hg] 02/02/2019 Height Weight Blood Pressure 65 in 182 lbs 106/79 mm[Hg] 12/14/2018 Height Weight Blood Pressure 65 in 198 lbs 93/68 mm[Hg]
--- OUTSIDE RECORDS SUMMARY | 2021-01-02 14:29 | CCD ---
Author Organization Unknown Address [address] [place] [address] Phone [phone] Care Team Providers Care Physical Medicine Teacher Name Role Phone Elaine Sosa Unavailable Unavailable Allergies Code Code System Name Reaction Severity Status Onset Bupropion Active 04/13/2018 2231 RxNorm Cephalexin Active 8 Erythromycin Active 531 [id number] RxNorm Latex Active 04/13/2018 05656 RxNorm Levofloxacin Active 018 89228 RxNorm Lisinopril Active 8 7646 RxNorm Omeprazole Active 8 953728 RxNorm Lexapro Active Sulfa (Sulfonamide Antibiotics) Active 81675 RxNorm Trimethoprim Active Medications Name Status Start Date Stop Date albuterol sulfate HFA 90 mcg/actuation aerosol inhaler Active Not available baclofen 10 mg tablet Active Not availa ble baclofen 5 mg tablet Completed 11/30/2020 budesonide-formoterol HFA 160 mcg-4.5 mcg/actuation aerosol inha ler Completed 12/04/2020 buspirone 10 mg tablet Completed buspirone 15 mg tablet Active Not avail able buspirone 5 mg tablet Completed 11/30/2020 [id number]-mltqzkvzzygjt-wzypxhpr 50 mg-300 mg-40 mg capsule Act ibrahima Not available calcitriol 0.25 mcg capsule Active Not available doxepin 25 mg capsule Active Not availa ble duloxetine 30 mg capsule,delayed release Active Not available duloxetine 60 mg capsule,delayed release Completed 11/30/2020 escitalopram 5 mg tablet Completed 021 gabapentin 100 mg capsule Completed 2020 gabapentin 300 mg capsule Completed 2020 gabapentin 400 mg capsule Completed 2020 gabapentin 600 mg tablet Active Not corinne ilable hydroxychloroquine 200 mg tablet Active Not available Incruse Ellipta 62.5 mcg/actuation powder for inhalation Active Not available levetiracetam 500 mg tablet Active Not available [...] Active Not available olanzapine 5 mg tablet Active Not avail able pantoprazole 40 mg tablet,delayed release Completed 11/30/2020 pentoxifylline ER 400 mg tablet,extended release Active Not available pilocarpine 5 mg tablet Active Not avai lable prednisone 5 mg tablet Active Not avail able sumatriptan 25 mg tablet Active Not corinne ilable sumatriptan 50 mg tablet Take 1 tablet as needed by oral route as directed. Take one tablet by mouth as needed on onset of headache. May repeat in two hours x 1 if ineffective. Active Not available tramadol 50 mg tablet Take 1 tablet by mouth every eight hours as needed for pain MDD 150 mg Active Not available trazodone 100 mg tablet Active Not avai lable trazodone 50 mg tablet Completed Problems Name Status Onset Date Source Overweight Active 04/13/2018 History Body Mass Index 25-29 - Overweight Active 04/13/2018 History Mental Disorder Active 04/13/2018 History Opioid Dependence in Remission Active 04/13/2018 H istory Chronic Pain Syndrome Active 04/13/2018 History Migraine Active 04/13/2018 History Clinical Finding Active 04/13/2018 History Hypertensive Disorder Active 04/19/2018 History Systemic Lupus Erythematosus Active 04/19/2018 His tory Finding Related to Sleep Active 04/27/2018 History Chronic Gastric Ulcer without Hemorrhage and without Perfora tion Active 05/10/2018 History Foreign Body Active 05/10/2018 History Chronic Obstructive Lung Disease Active 05/18/2018 History Polyalgia Active 05/18/2018 History Tobacco Dependence Caused by Cigarettes Active 05/20/20 18 History Finding of Defecation Active 08/02/2018 History Tobacco Use and Exposure - Finding Active 09/13/2018 History Disorder of Skin Active 09/13/2018 History Hypersomnia Active 09/17/2018 History Pain Active 02/02/2019 History Bulimia Nervosa Active 02/15/2019 History Gastric Fistula Active 03/07/2019 History Clinical Finding Active 03/07/2019 History Breast Neoplasm Screening Status Active 03/30/2019 History Lower Urinary Tract Finding Active 05/26/2019 Hist ory Emotional State Finding Active 07/06/2019 History Abnormal Weight Loss Active 08/26/2019 History Nausea and Vomiting Active 08/26/2019 History Eating Disorder Active 08/26/2019 History Mixed Anxiety and Depressive Disorder Active 12/04/2020 Procedures Notes: hysterectomy 2009, gall bladder r emoved 2013- , gastric bypass 2012-Dr. Cuello's office, Ulcer Sx , , Results Lab Results None recorded. Past Encounters 12/04/2020 Migraine; Mixed Anxiety and Depressive Disorder; Chronic Pain [facility]: [address] [place] [address], Ph. 11/30/2020 Nicotine Dependence with Current Use; Mixed Anxiety and Depressive Disorder [facility] Allred-: [address] [place] [address], Ph. Social History Tobacco Smoking Status Heavy [...] Surgeries None recorded. Imaging None recorded. Vitals 12/04/2020 01:20PM ESTABLISHED [id number] Height Weight BMI Blood Pressure 67 in 208 lbs 6 oz 32.6 kg/m2 141/83 mm[Hg] 11/30/2020 05:00PM ESTABLISHED [id number] Height Weight BMI Blood Pressure 67 in [...]
--- OUTSIDE RECORDS SUMMARY | 2021-01-02 14:29 | CCD | Summary of Care ---
Author Author [facility] Address Unknown Phone Unavailable Care Team Providers Care Binder Folder Operator Name Role Phone Osiris Melton SURVEY PARTY CHIEF PCP Reason for Visit * Reason Comments Follow-up Encounter Details Care Team Description Date Type Department Yen Soto SURVEY PARTY CHIEF [address] [facility] 2nd Floor [address] [place] [id number] Other systemic lupus erythematosus with other organ involvement (Primary Dx); High risk medication use; Sjogren's syndrome with keratoconjunctivitis sicca; Fibromyalgia; Vitamin D deficiency; Long-term use of Plaquenil; Muscle spasm; Insomnia, unspecified type 01/01/2021 Telemedicine [facility] Rheumatolog at [facility] [address] [facility] 2nd Floor, [address] [place] [phone] Allergies Comments Active Allergy Reactions Severity Noted Date Amoxicillin 04/11/2016 Azithromycin 05/23/2013 Bactrim Hives 06/04/2012 Cefuroxime Axetil Hives 06/04/2012 Reaction: HIVES Cephalexin 11/30/2015 Erythromycin Hives 11/30/2015 Face swells Eszopiclone Swelling 11/30/2015 Sumatriptan 03/25/2017 Lamotrigine Swelling 11/30/2015 Latex Hives 06/04/2012 Levofloxacin Hives 06/04/2012 Thoughts of suicide Escitalopram Oxalate 07/26/2020 Lisinopril Hives 06/04/2012 Skin rash and diffuse edema Metoclopramide 11/30/2015 Omeprazole Hives 08/08/2016 Sulfa Antibiotics Hives 03/31/2012 Reaction: HIVES Sulfamethoxazole-Trimetho 11/30/2015 prim documented as of this encounter (statuses as of 01/01/2021) Medications End Date Status Medication Sig Dispensed Refills Start Date Active montelukast (SINGULAIR) Take 10 mg by 0 10 MG tablet mouth nightly. Active Budesonide-Formoterol Inhale 2 0 Fumarate (SYMBICORT IN) puffs into the lungs 2 (two) times daily. Active topiramate (TOPAMAX) 50 Take 50 mg by 0 MG tablet mouth Two Times Daily. Active pantoprazole (PROTONIX) Take 40 mg by 0 40 MG tablet mouth Two 3 Times Daily. Active methocarbamol (ROBAXIN) Take 750 mg 0 750 MG tablet by mouth Four times daily Active ARIPiprazole ER (ABILIFY Inject 400 mg 0 MAINTENA) into the extended-release muscle every injectable suspension 30 (thirty) days Active amlodipine (NORVASC) 5 MG Take 5 mg by 0 tablet mouth Active albuterol (PROVENTIL Inhale 1 puff 0 HFA;VENTOLIN HFA) 108 (90 into the Base) MCG/ACT inhaler lungs every 4 (four) hours as needed for Wheezing Active OLANZapine (ZYPREXA) 10 Take 10 mg by 0 MG tablet mouth nightly Active diphenhydrAMINE Take 100 mg 0 (BENADRYL) 25 mg capsule by mouth nightly as needed for Itching1-2 tabs Three times a day Active Sennosides (SENNA) 8.6 MG Take 2 0 TABS tablet tablets by mouth Two Times Daily Active butalbital-acetaminophen- Take 1 tablet 0 caffeine (FIORICET, by mouth ESGIC) 50-325-40 MG per every 4 tablet (four) hours as needed for Pain4 x a day . 1-2 tabs every 4-6 hours Active trazodone (DESYREL) 50 MG Take 50 mg by 0 tablet mouth nightly Active doxycycline (VIBRAMYCIN) Take 100 mg 0 100 MG capsule by mouth Two Times Daily Active levalbuterol (XOPENEX Inhale 1-2 0 HFA) 45 MCG/ACT inhaler puffs into the lungs every 4 (four) hours as needed for Wheezing Active Multiple Take by mouth 0 Vitamins-Minerals (MULTIVITAMIN PO) Active NIFEdipine (PROCARDIA XL) Take 60 mg by 0 30 MG 24 hr tablet mouth daily Active oxcarbazepine (TRILEPTAL) Take 600 mg 0 600 MG tablet by mouth nightly Active oxycodone-acetaminophen Take 1 tablet 0 (PERCOCET) 5-325 MG per by mouth tablet every 4 (four) hours as needed for Pain Active prochlorperazine Take 10 mg by 0 (COMPAZINE) 10 MG tablet mouth every 6 (six) hours as needed Active tiotropium (SPIRIVA Inhale 2 0 RESPIMAT) 2.5 MCG/ACT puffs into AERS inhalation spray the lungs daily Active doxepin (SINEQUAN) 25 MG Take 25 mg by 0 capsule mouth nightly Active methocarbamol (ROBAXIN) Take 750 mg 0 750 MG tablet by mouth 4 Active cetirizine (ZYRTEC) 10 MG TAKE ONE 0 04/17 tablet TABLET (10MG) 8 BY MOUTH ONCE DAILY Active olanzapine (ZYPREXA) 20 TAKE ONE 2 MG tablet TABLET BY 8 MOUTH ONCE DAILY AT BEDTIME Active hydrOXYzine (VISTARIL) 50 Take 100 mg 0 MG capsule by mouth Active LORazepam (ATIVAN) 1 MG Take 1.5 mg 0 tablet by mouth Active ondansetron (ZOFRAN-ODT) DISSOLVE ONE 0 05/20 8 MG disintegrating TABLET ON 9 tablet TONGUE EVERY 6 HOURS NEEDED FOR NAUSEA Active triamcinolone (KENALOG) Apply 30 g 0 0.025 % topically 9 ointmentIndications: Three times Dermatitis daily Active Naproxen 500 MG Oral Take 1 tablet 30 tablet 1 Tablet by mouth Two 0 (NAPROSYN)Indications: times daily Polyarthralgia with meals Active Gabapentin 400 MG Oral Take 1 90 capsule 5 Capsule capsule by 1 (NEURONTIN)Indications: mouth Three Fibromyalgia times daily 01/31/2021 Active Methotrexate 2.5 MG Oral Take 3 12 tablet 3 0 TabletIndications: tablets by 1 Sjogren's syndrome with mouth every 7 keratoconjunctivitis (seven) days sicca, Other systemic lupus erythematosus with other organ involvement 01/31/2021 Active Folic Acid 1 MG Oral Take 1 tablet 30 tablet 3 Tablet by mouth 1 (FOLVITE)Indications: daily High risk medication use Active Pilocarpine HCl 5 MG Oral Take 1 tablet 90 tablet 5 02/16/202 Tablet by mouth 1 (SALAGEN)Indications: Three times High risk medication use daily 01/31/2021 Active DULoxetine HCl 60 MG Oral Take 2 60 capsule 1 Capsule Delayed Release capsules by 1 Particles mouth nightly (CYMBALTA)Indications: Fibromyalgia Active Hydroxychloroquine Take 1 tablet 60 tablet 5 01/01 Sulfate 200 MG Oral by mouth Two 1 Tablet Times Daily (PLAQUENIL)Indications: Sjogren's syndrome with keratoconjunctivitis sicca, Other systemic lupus erythematosus with other organ involvement, Long-term use of Plaquenil 12/31/2021 Active tiZANidine HCl 4 MG Oral Take 1 90 capsule 3 0 Capsule capsule by 1 (ZANAFLEX)Indications: mouth Three Muscle spasm times daily as needed for Muscle spasms 01/08/2021 Active Zolpidem Tartrate 10 MG Take 1 tablet 7 tablet 0 Oral Tablet by mouth 1 (AMBIEN)Indications: nightly as Insomnia, unspecified needed for type Sleep for up to 7 days, Max Daily Dose: 10 mg 01/01/2021 Discontinued (Reorder) duloxetine (CYMBALTA) 60 Take 120 mg 0 MG capsule by mouth nightly. 01/01/2021 Discontinued (Reorder) methotrexate 2.5 MG Take 3 12 tablet 0 tabletIndications: tablets by 9 Sjogren's syndrome with mouth every 7 keratoconjunctivitis (seven) days sicca, Other systemic lupus erythematosus with other organ involvement 01/01/2021 Discontinued (Reorder) Gabapentin 400 MG Oral Take 1 90 capsule 5 Capsule (NEURONTIN) capsule by 0 mouth Three times daily 01/01/2021 Discontinued (Reorder) Pilocarpine HCl 5 MG Oral Take 1 tablet 90 tablet 5 Tablet by mouth 0 (SALAGEN)Indications: Three times High risk medication use daily 01/01/2021 Discontinued (Reorder) Folic Acid 1 MG Oral TAKE TWO 60 tablet 5 07/26 Tablet TABLETS BY 0 (FOLVITE)Indications: MOUTH @8AM High risk medication use 01/01/2021 Discontinued (Reorder) Hydroxychloroquine Take 1 tablet 60 tablet 5 12/02 Sulfate 200 MG Oral by mouth Two 1 Tablet Times Daily (PLAQUENIL)Indications: Sjogren's syndrome with keratoconjunctivitis sicca, Other systemic lupus erythematosus with other organ involvement, Long-term use of Plaquenil 01/01/2021 Discontinued Cyclobenzaprine HCl 5 MG Take 1 tablet 30 tablet 2 Oral Tablet by mouth 1 (FLEXERIL)Indications: Three times Fibromyalgia daily as needed for Muscle spasms for up to 10 days documented as of this encounter (statuses as of 01/01/2021) Active Problems Problem Noted Date Sjogren's syndrome with keratoconjunctivitis sicca 0 06/07/2012 High risk medication use 06/07/2012 Lupus (systemic lupus erythematosus) 06/07/2012 Fibromyalgia 03/31/2012 Depression 03/31/2012 Asthma 03/31/2012 documented as of this encounter (statuses as of 01/01/2021) Resolved Problems Problem Noted Date Resolved Date Sjogren's syndrome 03/31/2012 06/07/2012 Overview: ICD10 Replacement code documented as of this encounter (statuses as of 01/01/2021) Social History Date Tobacco Use Types Packs/Day Years Used Current Every Day Smoker Cigarettes 0.5 9 Smokeless Tobacco: Never Used Drinks/Week oz/Week Comments Alcohol Use 0 Standard drinks or equivalent 0.0 No Sex Assigned at Date Recorded Not on file Date Recorded COVID-19 Exposure Response 12/31/2020 3:49 PM EST In the last month, have you been in contact with No / Unsure someone who was confirmed or suspected to have Coronavirus / COVID-19? documented as of this encounter Last Filed Vital Signs Not on filedocumented in this encounter Progress Notes * Yen Soto NP - 01/01/2021 1:30 PM EST No chief complaint on file. PCP: Osiris Melton NP History of Present Illness Ms. Madhavi Montalvo is a 40 y.o. female with a past medical history as mentione d below and most significant for Sjogren syndrome, systemic lupus erythematosus, fibromyalgia, and depression. She has been admitted in to the hospital in the [facility] for psychiatric breakdown. She presents today for follow up. Patient of Dr. Lazcano. 06/24/2019 Office visit: She ran out of Methotrexate and Plaquenil 3 weeks ago. Iza can is here for follow up and refill. She was previously taking methotrexate 7.5 m g weekly, folic acid 1 mg once daily, and Plaquenil 200 mg twice a day. She also takes Gabapentin 400 mg 3 times a day. She takes prednisone as needed. She needs refill of Gabapentin as well. She reports generalized joint pain since running out of Methotrexate and Plaquenil. Morning stiffness normally lasts all day with no improvement with activity. She takes tylenol as needed with good effect. She can't take NSAIDs as she has history of gastric bypass. History photosensitivi ty, dry mouth, raynaud's and recent rash to right lower extremity with itching. Denies oral/nasal ulcers, alopecia, dry eyes, skin psoriasis, gout, stroke, DVT/ PE. 07/26/2020 Telemedicine follow up visit: "This is a tele-medical visit. The patie nt was informed of the risks including security breech, technological failure, i nability to perform a comprehensive physical exam which could delay or prevent a n accurate diagnosis, and potential complications from treatment decisions komal christianson over a telemedical platform. The patient understands and consented to the e of tele-health services." Patient tells me her psychiatrist took her off all of her medications approximat kleber one month ago including Methotrexate 7.5 mg once weekly, folic acid 1 mg on ce daily, Plaquenil 200 mg twice a day, Pilocarpine and Gabapentin 400 mg 3 time s a day. She has also been without prednisone as needed. Patient currently in [facility] for rehab as patient stopped eating for 3 month period due to symptom s of increased depression. Patient has been in Rehabilitation since September of 2019. Patient tells me approximately one month ago she had thoughts of suicide w ithout plan. No attempts of suicide. At time of thoughts of suicide the patient was taking Lexapro which worsened symptoms. Patient not taking any medications a t this time for depression. Patient tells me she is not seeing psychiatry or cou nselor at rehab center. Patient tells me she has been cleared for discharge; how ever needs to find housing first. Patient is at [facility] in [facility]. Patient requesting to restart Pilocarpine, Methotrexate, and Plaqu enil due symptom of increased joint pain, stiffness, and swelling to hands witho ut disease modifying agents. 01/01/2021 Telemedicine follow up visit: "This is a tele-medical visit. The brendan ent was informed of the risks including security breech, technological failure, inability to perform a comprehensive physical exam which could delay or prevent an accurate diagnosis, and potential complications from treatment decisions rend ered over a telemedical platform. The patient understands and consented to the u se of tele-health services." On last visit patient restarted on Methotrexate 7.5 mg once weekly, folic acid 1 mg once daily, Neurontin 400 mg TID, and Pilocarpine 5 mg TID. Patient has been without Plaquenil since last visit. Patient has been without Neurontin for past 2 weeks as she requires refills. Patient living in hotel in [facility] as she has been without a home for past month. Patient working with social services coordinator to obtain housing. Patient is currently located at [place] [address] [address] [facility] [address] in [place] [address]. Patient with joint pain and stiffness with aggravation in symptoms with cold weather. Morning stiffness gradually imp roves with activity. Patient last received Cymbalta 120 mg by provider in [facility]. Patient no longer in [facility] and unable to receive from that provider any galen kimberly. Patient has also been without Flexeril 5 mg TID. Patient feels Flexeril is not as effective as it once was. Past Medical History reviewed including ADR and meds. ALLERGIES: Allergies Allergen Reactions Amoxicillin Azithromycin Bactrim Hives Cefuroxime Axetil Hives Cephalexin Reaction: HIVES Erythromycin Hives Eszopiclone Swelling Face swells Imitrex [Sumatriptan] Lamotrigine Swelling Latex Hives Levofloxacin Hives Lexapro [Escitalopram Oxalate] Thoughts of suicide Lisinopril Hives Metoclopramide Skin rash and diffuse edema Omeprazole Hives Sulfa Antibiotics Hives Sulfamethoxazole-Trimethoprim Reaction: HIVES Patient Active Problem List Diagnosis Fibromyalgia Depression Asthma Sjogren's syndrome with keratoconjunctivitis sicca High risk medication use Lupus (systemic lupus erythematosus) MEDICATIONS: Current Outpatient Medications on File Prior to Visit Medication Sig Dispense Refill albuterol (PROVENTIL HFA;VENTOLIN HFA) 108 (90 Base) MCG/ACT inhaler Inha le 1 puff into the lungs every 4 (four) hours as needed for Wheezing amlodipine (NORVASC) 5 MG tablet Take 5 mg by mouth ARIPiprazole ER (ABILIFDeirdre MAINTENA) extended-release injectable suspension Inject 400 mg into the muscle every 30 (thirty) days Budesonide-Formoterol Fumarate (SYMBICORT IN) Inhale 2 puffs into the milvia gs 2 (two) times daily. rngudtglho-aonyzsuuhrpdz-rvcnxpyq (FIORICET, ESGIC) 50-325-40 MG per tabl et Take 1 tablet by mouth every 4 (four) hours as needed for Pain4 x a day . 1- 2 tabs every 4-6 hours cetirizine (ZYRTEC) 10 MG tablet TAKE ONE TABLET (10MG) BY MOUTH ONCE RADHA LY 0 diphenhydrAMINE (BENADRYL) 25 mg capsule Take 100 mg by mouth nightly as needed for Itching1-2 tabs Three times a day doxepin (SINEQUAN) 25 MG capsule Take 25 mg by mouth nightly doxycycline (VIBRAMYCIN) 100 MG capsule Take 100 mg by mouth Two Times Da mima duloxetine (CYMBALTA) 60 MG capsule Take 120 mg by mouth nightly. Folic Acid 1 MG Oral Tablet (FOLVITE) TAKE TWO TABLETS BY MOUTH @8AM 60 t ablet 5 Gabapentin 400 MG Oral Capsule (NEURONTIN) Take 1 capsule by mouth Three times daily 90 capsule 5 Hydroxychloroquine Sulfate 200 MG Oral Tablet (PLAQUENIL) Take 1 tablet b y mouth Two Times Daily 60 tablet 5 hydrOXYzine (VISTARIL) 50 MG capsule Take 100 mg by mouth levalbuterol (XOPENEX HFA) 45 MCG/ACT inhaler Inhale 1-2 puffs into the l ungs every 4 (four) hours as needed for Wheezing LORazepam (ATIVAN) 1 MG tablet Take 1.5 mg by mouth methocarbamol (ROBAXIN) 750 MG tablet Take 750 mg by mouth Four times radha ly methocarbamol (ROBAXIN) 750 MG tablet Take 750 mg by mouth methotrexate 2.5 MG tablet Take 3 tablets by mouth every 7 (seven) days 1 2 tablet 0 montelukast (SINGULAIR) 10 MG tablet Take 10 mg by mouth nightly. Multiple Vitamins-Minerals (MULTIVITAMIN PO) Take by mouth Naproxen 500 MG Oral Tablet (NAPROSYN) Take 1 tablet by mouth Two times d aily with meals 30 tablet 1 NIFEdipine (PROCARDIA XL) 30 MG 24 hr tablet Take 60 mg by mouth daily OLANZapine (ZYPREXA) 10 MG tablet Take 10 mg by mouth nightly olanzapine (ZYPREXA) 20 MG tablet TAKE ONE TABLET BY MOUTH ONCE DAILY AT BEDTIME 2 ondansetron (ZOFRAN-ODT) 8 MG disintegrating tablet DISSOLVE ONE TABLET O N TONGUE EVERY 6 HOURS NEEDED FOR NAUSEA 0 oxcarbazepine (TRILEPTAL) 600 MG tablet Take 600 mg by mouth nightly oxycodone-acetaminophen (PERCOCET) 5-325 MG per tablet Take 1 tablet by m outh every 4 (four) hours as needed for Pain pantoprazole (PROTONIX) 40 MG tablet Take 40 mg by mouth Two Times Daily. Pilocarpine HCl 5 MG Oral Tablet (SALAGEN) Take 1 tablet by mouth Three t imes daily 90 tablet 5 prochlorperazine (COMPAZINE) 10 MG tablet Take 10 mg by mouth every 6 (si x) hours as needed Sennosides (SENNA) 8.6 MG TABS tablet Take 2 tablets by mouth Two Times D aily tiotropium (SPIRIVA RESPIMAT) 2.5 MCG/ACT AERS inhalation spray Inhale 2 puffs into the lungs daily topiramate (TOPAMAX) 50 MG tablet Take 50 mg by mouth Two Times Daily. trazodone (DESYREL) 50 MG tablet Take 50 mg by mouth nightly triamcinolone (KENALOG) 0.025 % ointment Apply topically Three times gustavo y 30 g 0 No current facility-administered medications on file prior to visit. PMH: Past Medical History: Diagnosis Date Anxiety Arthritis Asthma Depression Anila Gonsalez virus positive mononucleosis syndrome 1991 Headache(784.0) Low back pain Past Surgical History: Procedure Laterality Date HERNIA REPAIR HYSTERECTOMY TONJA-EN-Y PROCEDURE SOCIAL AND FAMILY HISTORY: Social History Socioeconomic History Marital status: Spouse name: Not on file Number of children: Not on file Years of education: Not on file Highest education level: Not on file Occupational History Not on file Social Needs Financial resource strain: Not on file Food insecurity Worry: Not on file Inability: Not on file Transportation needs Medical: Not on file Non-medical: Not on file Tobacco Use Smoking status: Current Every Day Smoker Packs/day: 0.50 Years: 9.00 Pack years: 4.50 Types: Cigarettes Smokeless tobacco: Never Used Substance and Sexual Activity Alcohol use: No Alcohol/week: 0.0 standard drinks Drug use: No Sexual activity: Yes Lifestyle Physical activity Days per week: Not on file Minutes per session: Not on file Stress: Not on file Relationships Social connections Talks on phone: Not on file Gets together: Not on file Attends yarsanism service: Not on file Active member of club or organization: Not on file Attends meetings of clubs or organizations: Not on file Relationship status: Not on file Intimate partner violence Fear of current or ex partner: Not on file Emotionally abused: Not on file Physically abused: Not on file Forced sexual activity: Not on file Other Topics Concern Not on file Social History Narrative Disabled due to lupus, back pain and fibromyalgia. She lives with her dad and s on. family history includes Cancer in her father and mother. ROS: The following systems were reviewed: Review of Systems Constitutional: Positive for malaise/fatigue. Negative for chills and fever. HENT: Negative for congestion, sinus pain and sore throat. Eyes: Negative for blurred vision, double vision, photophobia and pain. Respiratory: Negative for cough and shortness of breath. Cardiovascular: Negative for chest pain and palpitations. Gastrointestinal: Negative for abdominal pain, constipation, diarrhea, nausea an d vomiting. Genitourinary: Negative for dysuria. Musculoskeletal: Positive for joint pain. Skin: Negative for itching and rash. Neurological: Negative for dizziness and headaches. Physical Exam: The following systems were examined: PHYSICAL EXAM (visual only) The patient is not in acute distress. Constitutional: The patient is oriented to person, place, and time. The patient appears well-developed and well-nourished. No acute distress. HENT: The patient is not cushingoid. No facial redness. The patient is not in acute distress. No facial droop. Head: Normal looking, no alopecia. Right Ear: External ear normal. Left Ear: External ear normal. Nose: Nose normal. Mouth: no obvious swelling, can open normally. Eyes: The patient can close normally. Right eye exhibits no discharge. Left eye exhibits no discharge Neck: Normal range of motion. Neck supple. Cardiovascular: no cyanosis, not in distress while lying down. Pulmonary/Chest: Effort is not labored. Abdominal: The patient exhibits no distension. Musculoskeletal: The patient exhibits no swelling in upper and lower extremity j oints. Neurological: The patient is alert and oriented to person, place, and time. No facial droop. Exhibits normal muscle bulk. Coordination normal. Skin: No rash noted. No erythema. Psychiatric: The patient is anxious. Judgment and thought content normal. There were no vitals filed for this visit. Unable to obtain vital signs in offic e. Data review: Chart review Assessment and Plan: Ms. Madhavi Montalvo is a 38 y.o. female with a past medical history of Sjogren syndrome, systemic lupus erythematosus, fibromyalgia, and depression, seen today for follow up visit. She has been admitted in to the hospital in the past for p sychiatric breakdown. Diagnoses and all orders for this visit: Other systemic lupus erythematosus with other organ involvement - ALT; Future - AST; Future - C3 complement; Future - C4 complement; Future - CBC and Differential; Future - Creatinine with GFR; Future - Sedimentation rate, automated; Future - Urinalysis with microscopic; Future - Urine Random Total Protein Creatinine Ratio; Future - Methotrexate 2.5 MG Oral Tablet; Take 3 tablets by mouth every 7 (seven) d ays - Hydroxychloroquine Sulfate 200 MG Oral Tablet (PLAQUENIL); Take 1 tablet b y mouth Two Times Daily High risk medication use - ALT; Future - AST; Future - C3 complement; Future - C4 complement; Future - CBC and Differential; Future - Creatinine with GFR; Future - Sedimentation rate, automated; Future - Urinalysis with microscopic; Future - Urine Random Total Protein Creatinine Ratio; Future - Folic Acid 1 MG Oral Tablet (FOLVITE); Take 1 tablet by mouth daily - Pilocarpine HCl 5 MG Oral Tablet (SALAGEN); Take 1 tablet by mouth Three t imes daily Sjogren's syndrome with keratoconjunctivitis sicca - ALT; Future - AST; Future - C3 complement; Future - C4 complement; Future - CBC and Differential; Future - Creatinine with GFR; Future - Sedimentation rate, automated; Future - Urinalysis with microscopic; Future - Urine Random Total Protein Creatinine Ratio; Future - Methotrexate 2.5 MG Oral Tablet; Take 3 tablets by mouth every 7 (seven) d ays - Hydroxychloroquine Sulfate 200 MG Oral Tablet (PLAQUENIL); Take 1 tablet b y mouth Two Times Daily Fibromyalgia - Gabapentin 400 MG Oral Capsule (NEURONTIN); Take 1 capsule by mouth Three times daily - DULoxetine HCl 60 MG Oral Capsule Delayed Release Particles (CYMBALTA); Ta ke 2 capsules by mouth nightly - Discontinue: Cyclobenzaprine HCl 5 MG Oral Tablet (FLEXERIL); Take 1 table t by mouth Three times daily as needed for Muscle spasms for up to 10 days Vitamin D deficiency - Vitamin D 25 Hydroxy, Total; Future Long-term use of Plaquenil - Hydroxychloroquine Sulfate 200 MG Oral Tablet (PLAQUENIL); Take 1 tablet b y mouth Two Times Daily Muscle spasm - tiZANidine HCl 4 MG Oral Capsule (ZANAFLEX); Take 1 capsule by mouth Three times daily as needed for Muscle spasms #Fibromyalgia, active. #Systemic lupus erythematosus, intermittent flare without Methotrexate and Plaqu enil. #Sjogren's syndrome with keratoconjunctivitis sicca. #Difficult sleeping, no improvement with Trazodone, Benadryl, and Tylenol PM. Telemedicine [employer] follow up - 25 minutes. Plan: 1. Routine labs today. 2. E-prescribed Ambien 10 mg once nightly as needed for insomnia. Dispensed 7 ta blets. Patient understands medication is controlled substance and to not take an d operate motorized vehicle while taking. 3. Continue Methotrexate 7.5 mg once weekly and folic acid 1 mg once daily. Refi lled today. 4. Continue Plaquenil 200 mg twice daily and yearly ophthalmology exam. Refilled today. 5. Continue Neurontin 400 mg 3 times a day. Refilled. 6. Continue Pilocarpine HCl 5 MG Oral Tablet (SALAGEN); Take 1 tablet by mouth T hree times daily. Refilled. 7. Discontinued Flexeril as medication is no longer effective. 8. E-prescribed Tizanidine 4 mg TID as needed. Instructed patient to not take an d operate motorized vehicle as medication may cause fatigue. 9. Refilled Cymbalta 120 mg once nightly. 10. Follow up 4 months. Patient verbalized understanding and in agreement with plan. 1. Daily exercise: Low impact aerobic or water exercises as tolerated. Regular exercises may help reduce the pain, improve circulation to the tight mus cles, prevent de-coditioning, maintain range of motion and enhance better sleep. Avoid high impact and lot of weight bearing exercises. 2. Sleep hygiene: -Early to bed at night, preferably at the same time. -Avoid sweets, caffenated beverages in the afternoon. -Do not exercise late at night and take nap during the day. 3. Dietary instructions: -Try to eat healthy: low carbohydrate and low sugar -Avoid high sugar containing food, greasy and high fat food, large meals and lat e night snacks. Results for orders placed or performed during the hospital encounter of 12/03/20 CBC and Differential Result Value Ref Range White Blood Cell 12.1 (H) 4 - 10 10*3/uL Red Blood Cell 4.16 4.1 - 5.3 10*6/uL Hemoglobin 12.9 11.5 - 15.5 g/dL Hematocrit 37.7 36 - 45 % Mean Cell Volume 90.7 80 - 96 fL Mean Cell Hemoglobin 31.0 27 - 33 pg Mean Cell Hgb Conc 34.2 32.0 - 36.0 g/dL Red Cell Dist Width 14.4 11.5 - 14.5 % Platelet Count 321 150 - 400 10*3/uL Differential Type Automated Diff Neutrophil 66 % Lymphocyte 24 % Monocyte 7 % Eosinophil 2 % Basophil 1 % Abs Neutrophil 8.09 (H) 1.8 - 7.0 10*3/uL Abs Lymphocyte 2.93 1.2 - 4.0 10*3/uL Abs Monocyte 0.81 (H) 0 - 0.8 10*3/uL Abs Eosinophil 0.21 0 - 0.5 10*3/uL Abs Basophil 0.10 0 - 0.2 10*3/uL Nucleated Red Blood Cells 0 0 - 0 /100 Basic Metabolic Panel Result Value Ref Range Bicarbonate 22 22 - 29 mmol/L Chloride 100 98 - 107 mmol/L Creatinine 0.89 0.50 - 0.90 mg/dL Glucose 59 (L) 70 - 140 mg/dL Potassium 3.9 3.4 - 5.1 mmol/L Sodium 129 (L) 136 - 145 mmol/L Blood Urea Nitrogen 5 (L) 6 - 20 mg/dL Anion Gap 7 (L) 8 - 15 mmol/L Osmolality, Link 263 (L) 275 - 300 mosm/kg BUN/Cre Ratio 6 Calcium 8.2 (L) 8.6 - 10.0 mg/dL GFR Non 2008 CDK-EPI 79 >60 mL/min/1.73m2 GFR 2009 CKD-EPI >90 >60 mL/min/1.73m2 Protime-INR Result Value Ref Range PT Patient 12.3 (L) 12.5 - 14.9 s Int'l Normalized Ratio 0.91 Urinalysis with microscopic Result Value Ref Range Color Colorless Clarity Clear Specific [place] 1.031 (H) 1.003 - 1.030 PH Urine 6.0 5.0 - 8.0 Total Protein UA Negative Negative mg/dL Glucose UA Negative Negative mg/dL Ketone Urine Negative Negative mg/dL Bilirubin Negative Negative Hemoglobin, Urine Negative Negative Leukocyte Esterase Negative Negative Gisella/uL Nitrite Negative Negative WBC 0 0 - 5 /HPF RBC 0 0 - 3 /HPF Sedimentation rate, automated Result Value Ref Range Sed Rate - ESR 5 <20 mm/hr POCT i-STAT VBG Lactic Acid Result Value Ref Range i-STAT Venous pH 7.30 (L) 7.36 - 7.41 i-STAT Venous PCO2 46 (H) 40 - 45 mmHg i-STAT Venous PO2 22 mmHg i-STAT Venous Base Excess NEG 4 mmol/L i-STAT Venous SO2 31 (L) 60 - 85 % i-STAT Venous Lactic Acid 0.8 0.5 - 2.2 mmol/L i-STAT Venous Total CO2 24 mmol/L POCT i-STAT Chem 8 Result Value Ref Range i-STAT Sodium 132 (L) 136 - 145 mmol/L i-STAT Potassium 3.7 3.4 - 5.1 mmol/L i-STAT Chloride 99 98 - 107 mmol/L i-STAT TCO2 23 22 - 29 mmol/L i-STAT Ionized Calcium 1.18 1.13 - 1.32 mmol/L i-STAT Glucose 65 (L) 70 - 140 mg/dL i-STAT BUN 4 (L) 6 - 20 mg/dL i-STAT Creatinine 1.0 (H) 0.50 - 0.90 mg/dL i-STAT Hematocrit 39 36 - 45 % i-STAT Hemoglobin 13.3 11.5 - 15.5 g/dL POCT i-STAT BHCG Result Value Ref Range i-STAT BHCG <5 <5 [IU]/L documented in this encounter Plan of Treatment Order Schedule Name Type Priority Associated Diag noses 1 Occurrences starting 01/01/2021 until 06/30/2021 ALT Lab Routine Other systemic lupus erythematosus with other organ involvement High risk medication use Sjogren's syndrome with keratoconjunctivitis sicca 1 Occurrences starting 01/01/2021 until 06/30/2021 AST Lab Routine Other systemic lupus erythematosus with other organ involvement High risk medication use Sjogren's syndrome with keratoconjunctivitis sicca 1 Occurrences starting 01/01/2021 until 06/30/2021 C3 complement Lab Routine Other systemic lupus erythematosus with other organ involvement High risk medication use Sjogren's syndrome with keratoconjunctivitis sicca 1 Occurrences starting 01/01/2021 until 06/30/2021 C4 complement Lab Routine Other systemic lupus erythematosus with other organ involvement High risk medication use Sjogren's syndrome with keratoconjunctivitis sicca Expected: 01/01/2021, Expires: CBC and Differential Lab Routine Other sys temic lupus erythematosus with other organ involvement High risk medication use Sjogren's syndrome with keratoconjunctivitis sicca 1 Occurrences starting 01/01/2021 until 06/30/2021 Creatinine with GFR Lab Routine Other syst emic lupus erythematosus with other organ involvement High risk medication use Sjogren's syndrome with keratoconjunctivitis sicca Expected: 01/01/2021, Expires: 1 Sedimentation rate, Lab Routine Other syst emic lupus automated erythematosus with other organ involvement High risk medication use Sjogren's syndrome with keratoconjunctivitis sicca Expected: 01/01/2021, Expires: 1 Urinalysis with Lab Routine Other systemic lupus microscopic erythematosus with other organ involvement High risk medication use Sjogren's syndrome with keratoconjunctivitis sicca 1 Occurrences starting 01/01/2021 until 06/30/2021 Urine Random Total Lab Routine Other syste maria t lupus Protein Creatinine Ratio erythematosus with other organ involvement High risk medication use Sjogren's syndrome with keratoconjunctivitis sicca Expected: 01/01/2021, Expires: Vitamin D 25 Hydroxy, Lab Routine Vitamin D deficiency Total Health Maintenance Due Date Last Done Comments MMR Vaccines ( - 1979 Standard series) Varicella Vaccines (1979 2 - 2-dose childhood series) Pneumococcal Vaccine: 1984 Pediatrics (0 to 5 Years) and At-Risk Patients (6 to 64 Years) (1 of 1 - PPSV23) DTaP,Tdap,and Td Vaccines 1985 (1 - Tdap) HIV Screening 1991 Cervical Cancer Screening 1999 5 years Influenza Vaccine 08/16/2020 Pneumococcal Vaccine: 65+ 2043 Years (1 of 1 - PPSV23) HIB Vaccines Aged Out No longer eligible based on patient's age to complete this topic Hepatitis A Vaccines Aged Out No longer eligibl e based on patient's age to complete this topic Hepatitis B Vaccines Aged Out No longer eligibl e based on patient's age to complete this topic IPV Vaccines Aged Out No longer eligible based on patient's age to complete this topic documented as of this encounter Results Not on filedocumented in this encounter Visit Diagnoses Diagnosis Other systemic lupus erythematosus with other organ involvement - Primary High risk medication use Encounter for long-term (current) use o f other medications Sjogren's syndrome with keratoconjuncti vitis sicca Fibromyalgia Mylagia and myositis, unspecified Vitamin D deficiency Unspecified vitamin D deficiency Long-term use of Plaquenil Muscle spasm Spasm of muscle Insomnia, unspecified type documented in this encounter
--- OUTSIDE RECORDS SUMMARY | 2021-01-02 14:29 | CCD ---
Author Organization Unknown Address [address] [place] [address] Phone [phone] Care Team Providers Care Workers' Compensation Claims Examiner Name Role Phone Elaine Sosa Unavailable Unavailable Allergies Code Code System Name Reaction Severity Status Onset Bupropion Active 04/13/2018 2231 RxNorm Cephalexin Active 04/13/2018 Erythromycin Active 04/13/2018 3474728 RxNorm Latex Active 04/13/2018 60220 RxNorm Levofloxacin Active 04/13/20 18 27499 RxNorm Lisinopril Active 04/13/2018 7646 RxNorm Omeprazole Active 04/13/2018 405051 RxNorm Lexapro Active Notes: TRIMETHOPRIN | SULFA Medications Name Status Start Date Stop Date albuterol sulfate HFA 90 mcg/actuation aerosol inhaler Active Not available baclofen 10 mg tablet Active Not availa ble baclofen 5 mg tablet Completed 11/30/2020 budesonide-formoterol HFA 160 mcg-4.5 mcg/actuation aerosol inha ler Active Not available buspirone 10 mg tablet Completed buspirone 15 mg tablet Active Not avail able buspirone 5 mg tablet Completed 11/30/2020 diskaertcf-hiczlzzwfcsjc-wgihohai 50 mg-300 mg-40 mg capsule Act ibrahima Not available calcitriol 0.25 mcg capsule Active Not available doxepin 25 mg capsule Active Not availa ble duloxetine 30 mg capsule,delayed release Active Not available duloxetine 60 mg capsule,delayed release Completed 11/30/2020 escitalopram 5 mg tablet Completed 021 gabapentin 100 mg capsule Active Not av ailable gabapentin 300 mg capsule Completed 2020 gabapentin [...] tartrate 50 mg tablet Active Not available olanzapine 5 mg tablet Active Not avail able pantoprazole 40 mg tablet,delayed release Completed 11/30/2020 pentoxifylline ER 400 mg tablet,extended release Active Not available pilocarpine 5 mg tablet Active Not avai lable prednisone 5 mg tablet Active Not avail able sumatriptan 25 mg tablet Active Not corinne ilable sumatriptan 50 mg tablet Completed 021 trazodone 100 mg tablet Active Not avai [...] 08/26/2019 History Eating Disorder Active 08/26/2019 History Procedures Notes: hysterectomy 2009, gall bladder r emoved 2013- , gastric bypass 2012-Dr. Cuello's office, Ulcer Sx , , Results Lab Results None recorded. Past Encounters 11/30/2020 Nicotine Dependence with Current Use; Mixed Anxiety and Depressive Disorder Elaine Sosa, [facility]: [address] [place] [address], Ph. Social History Tobacco Smoking Status Heavy Tobacco Smoker (1/2 PPD) Vaccine List Vaccine Type COVID-19 vaccine, vector-nr, [id number], PF, 0.5 mL 11/23/2020 Plan of Care Patient Instructions Please return to clinic with all medicat [...] Surgeries None recorded. Imaging None recorded. Vitals 11/30/2020 05:00PM ESTABLISHED [id number] Height Weight BMI Blood Pressure 67 in [...] Blood Pressure 65 in 198 lbs 93/68 mm[Hg]"
--- OUTSIDE RECORDS SUMMARY | 2021-01-02 14:29 | CCD | Summary of Care ---
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 Name Role Phone Osiris Melton LUMBER CARRIER OPERATOR PCP Reason for Visit * Reason Comments Eye Problem Cerebrovascular Accident Encounter Details Care Team Description Date Type Department Immanuel Ni MD [address] [place] [address] [phone] Larry Mahajan MD [address] [place] [address] [phone] Migraine without status migrainosus, not intractable, unspecified migraine type (Primary Dx) 12/03/2020 Emergency [facility] T [address] [place] [address] Allergies Comments Active Allergy Reactions Severity Noted [...] as of this encounter (statuses as of 12/03/2020) Medications End Date Status Medication Sig Dispensed Refills Start Date Active montelukast (SINGULAIR) Take 10 mg by 0 10 MG tablet mouth nightly. Active Budesonide-Formoterol Inhale 2 0 Fumarate (SYMBICORT IN) puffs into the lungs 2 (two) times daily. Active topiramate (TOPAMAX) 50 Take 50 mg by 0 MG tablet mouth Two Times Daily. Active duloxetine (CYMBALTA) 60 Take 120 mg 0 MG capsule by mouth nightly. Active pantoprazole (PROTONIX) Take 40 mg by 0 40 MG tablet mouth Two 3 Times Daily. Active methocarbamol (ROBAXIN) Take 750 mg 0 750 MG tablet by mouth Four times daily Active acetaminophen (TYLENOL) Take 650 mg 0 325 MG tablet by mouth every 6 (six) hours as needed for Pain. Active ARIPiprazole ER (ABILIFY Inject 400 mg [...] 9 ointmentIndications: Three times Dermatitis daily Active methotrexate 2.5 MG Take 3 12 tablet 0 tabletIndications: tablets by 9 Sjogren's syndrome with mouth every 7 keratoconjunctivitis (seven) days sicca, Other systemic lupus erythematosus with other organ involvement Active Gabapentin 400 MG Oral Take 1 90 capsule Capsule (NEURONTIN) capsule by 0 mouth Three times daily Active Pilocarpine HCl 5 MG Oral Take 1 tablet 90 tablet Tablet by mouth 0 (SALAGEN)Indications: Three times High risk medication use daily Active Folic Acid 1 MG Oral TAKE TWO 60 tablet 07/26 Tablet TABLETS BY 0 (FOLVITE)Indications: MOUTH @8AM High risk medication use Active Naproxen 500 MG Oral Take 1 tablet 30 tablet 1 Tablet by mouth Two 0 (NAPROSYN)Indications: times daily Polyarthralgia with meals Active Hydroxychloroquine Take 1 tablet 60 tablet 5 12/02 Sulfate 200 MG Oral by mouth Two 1 Tablet Times Daily (PLAQUENIL)Indications: Sjogren's syndrome with keratoconjunctivitis sicca, Other systemic lupus erythematosus with other organ involvement, Long-term use of Plaquenil 12/09/2020 Active Zolpidem Tartrate ER 6.25 Take 1 tablet 7 tablet 0 MG Oral Tablet Extended by mouth 1 Release (Ambien nightly as CR)Indications: Primary needed for insomnia Sleep for up to 7 days, Max Daily Dose: 6.25 mg 12/13/2020 Active Acetaminophen 325 MG Oral Take 2 30 tablet 0 Tablet tablets by 1 mouth every 6 (six) hours as needed for Pain (acute) for up to 10 days documented as of this encounter (statuses as of 12/03/2020) Active Problems Problem Noted Date Sjogren's syndrome with keratoconjunctivitis sicca 0 06/07/2012 High risk medication use 06/07/2012 Lupus (systemic lupus erythematosus) 06/07/2012 Fibromyalgia 03/31/2012 Depression 03/31/2012 Asthma 03/31/2012 documented as of this encounter (statuses as of 12/03/2020) Resolved Problems Problem Noted Date Resolved Date Sjogren's syndrome 03/31/2012 06/07/2012 Overview: ICD10 Replacement code documented as of this encounter (statuses as of 12/03/2020) Social History Date Tobacco Use Types Packs/Day Years Used Current Every Day Smoker Cigarettes 0.5 9 Smokeless Tobacco: Never Used Drinks/Week oz/Week Comments Alcohol Use 0 Standard drinks or equivalent 0.0 No Sex Assigned at Date Recorded Not on file Date Recorded COVID-19 Exposure Response 12/03/2020 2:14 PM EST In the last month, have you been in contact with No / Unsure someone who was confirmed or suspected to have Coronavirus / COVID-19? documented as of this encounter Last Filed Vital Signs Reading Time Taken Comments Vital Sign 131/79 12/03/2020 6:15 PM EST Blood Pressure 59 12/03/2020 6:15 PM EST Pulse 36.7 C (98.1 F) 12/03/2020 6:15 PM EST Temperature 12 12/03/2020 6:15 PM EST Respiratory Rate 98% 12/03/2020 6:15 PM EST Oxygen Saturation - - Inhaled Oxygen Concentration 93.9 kg (207 lb 0.2 oz) 12/03/2020 2:36 PM EST Weight - - Height 33.67 06/14/2018 1:47 PM EDT Body Mass Index documented in this encounter Discharge Instructions * Attachments The following attachments cannot be sent through Care Everywhere.* Headache, Migraine: Stages and Treatment (Danish) documented in this encounter Procedure Notes * Immanuel Ni MD - 12/03/2020 3:51 PM EST Associated Order(s): 1ED EKG Interpretation 1ED EKG Interpretation Date/Time: 12/03/2020 3:51 PM Performed by: Immanuel Ni MD Authorized by: Immanuel Ni MD ECG reviewed by ED Physician in the absence of a supervisor unloading: yes Previous ECG: Previous ECG: Unavailable Interpretation: Interpretation: normal Rate: ECG rate assessment: normal Rhythm: Rhythm: sinus rhythm Ectopy: Ectopy: none QRS: QRS axis: Normal Conduction: Conduction: normal ST segments: ST segments: Normal T waves: T waves: normal documented in this encounter ED Notes * Brendan Chacko RN - 12/03/2020 2:35 PM EST Patient presents to the ER with complaint of sudden onset of headache and vision loss to left eye starting at 1345 documented in this encounter Plan of Treatment Care Team Description Date Type Specialty Yen Soto NP [address] [facility] 2nd Floor [address] [place] [id number] 12/26/2020 Office Visit Rheumatology Date/Time Name Type Priority Associated Diag noses 12/03/2020 2:41 PM EST EKG 12 Lead (Unsolicited ECG Routine Computer Order) 12/03/2020 2:55 PM EST EKG order subsequent to ECG STAT procedure (Acknowledge Only) Order Schedule Name Type Priority Associated Diag noses Daily for 30 Days starting 12/03/2020 un til 01/01/2021 EKG order subsequent to ECG STAT procedure (Acknowledge Only) Health Maintenance Due Date Last Done Comments MMR Vaccines (1 of 1 - 1979 Standard series) Varicella Vaccines (1 of 1979 2 - 2-dose childhood series) Pneumococcal Vaccine: [...] this topic documented as of this encounter Procedures Comments Procedure Name Priority Date/Time Associated Diag nosis URINALYSIS WITH STAT 12/03/2020 MICROSCOPIC 6:19 PM EST EKG ED PHYSICIAN Routine 12/03/2020 INTERPRETATION 3:[address] ANGIOGRAPHY NECK 12235 STAT 12/03/2020 3:[address] ANGIOGRAPHY HEAD [id number] STAT 12/03/2020 3:44 PM EST POCT ISTAT BHCG Routine 12/03/2020 3:05 PM EST POCT ISTAT CHEM8 Routine 12/03/2020 3:01 PM EST POCT ISTAT VBG/LAC Routine 12/03/2020 2:55 PM EST SEDIMENTATION RATE, Routine 12/03/2020 AUTOMATED 2:53 PM EST PROTIME INR STAT 12/03/2020 2:53 PM EST CBC AND DIFFERENTIAL Routine 12/03/2020 2:53 PM EST BASIC METABOLIC PANEL STAT 12/03/2020 2:53 PM EST EKG 12 LEAD (UNSOLICITED Routine 12/03/2020 COMPUTER ORDER) 2:41 PM EST Procedure Note - Interface, Received Via Department [employer] - 12/03/2020 2:38 PM EST Ventricula r Rate: 62 BPM Atrial Rate: 62 BPM P-R Interval: 154 ms QRS Duration: 90 ms Q-T Interval: 410 ms QTC Calculatio n(Bazett): 416 ms P Broadbent: 60 degrees R Broadbent: 66 degrees T Broadbent: 79 degrees : SINUS RHYTHM : NORMAL ECG : NO PREVIOUS ECGS AVAILABLE : THIS IS A PRELIMINAR Y RESULT. EKG 12-LEAD - CMAXX 12/03/2020 REPORT 2:[address] HEAD WITHOUT CONTRAST CODE 12/03/2020 [id number] 2:30 PM EST documented in this encounter Results * Urinalysis with microscopic (12/03/2020 6:19 PM EST) Color Colorless [facility] Clin Pathology Clarity Clear [facility] Clin Pathology Specific 1.031 (H) 1.003 - 1.030 [facility] Clin Pathology PH Urine 6.0 5.0 - 8.0 [facility] Clin Pathology Total Protein Negative Negative mg/dL [facility] Clin Pathology Glucose UA Negative Negative mg/dL [facility] Clin Pathology Ketone Urine Negative Negative mg/dL [facility] Clin Pathology Bilirubin Negative Negative [facility] Clin Pathology Hemoglobin, Negative Negative [facility] Urine Med [facility] Clin Pathology Leukocyte Negative Negative Gisella/uL [facility] Esterase [facility] Clin Pathology Nitrite Negative Negative [facility] Clin Pathology WBC 0 0 - 5 /HPF [facility] Clin Pathology RBC 0 0 - 3 /HPF [facility] Clin Pathology Specimen Urine Performing Organization Address City/State/[facility] Ph one Number [facility] [address] [place], [place] [address] PATHOLOGY [facility] [address] [place], [place] [address] Clin Pathology * 1ED EKG Interpretation (12/03/2020 3:51 PM EST) Narrative Performed At Immanuel Ni MD EXTERNAL NON-INTERFACED LAB 12/03/2020 3:51 PM 1ED EKG Interpretation Date/Time: 12/03/2020 3:51 PM Performed by: Immanuel Ni MD Authorized by: Immaneul Ni MD ECG reviewed by ED Physician in the abs ence of a supervisor unloading: yes Previous ECG: Previous ECG: Unavailable Interpretation: Interpretation: normal Rate: ECG rate assessment: normal Rhythm: Rhythm: sinus rhythm Ectopy: Ectopy: none QRS: QRS axis: Normal Conduction: Conduction: normal ST segments: ST segments: Normal T waves: T waves: normal Performing Organization Address City/State/Zipcode Ph one Number EXTERNAL NON-INTERFACED LAB * CT Angiography Neck ; Emergent exam: waive labs (12/03/2020 3:44 PM EST) Specimen Impressions Performed At IMPRESSION: [facility] 1. Normal CTA head. 2. Normal CTA neck. 3. No acute intracranial hemorrhage or ev idence of acute infarction. Assessment of stenosis of the internal carotid arteries is based on NASCET criteria. Addendum by Dr Maya: There is limite d evaluation of the intracranial major arterial tree due to motion in particul ar the right M1 and the bilateral geometry tutor.. The major arterial tree within the neck is patent. Narrative Performed At INDICATION: 40-year-old female, monocular vision loss and migraines. [facility] TECHNIQUE: Contiguous axial CT images o f the head were acquired from the base of the skull to the vertex without intrave nous contrast administration. CT angiography of the head and neck was performed following intravenous administration of 75 mL of Omnipaque 35 0. Multiple MIP images in axial, coronal, and sagittal planes were then acquired using the source data. 3-D volume rendered images were not av ailable at the time of this dictation. Automated dose lowering techniques and/ or adjustment according to patient size were utilized for this examination. COMPARISON: CT [facility] FINDINGS: Non-enhanced CT head: There is no evidence of acute intracran ial hemorrhage or large territorial infarct. There are no extraaxial fluid collecti ons, mass effect or midline shift. The ventricles and basal cisterns appea r normal. The imaged paranasal sinuses and mastoi d air cells are clear. There are no depressed calvarial fractures. CTA Neck: GREAT VESSELS: The imaged three vessel aortic arch is patent. RIGHT INTERNAL CAROTID ARTERY: No hemodynamically significant diamete r stenosis or dissection. LEFT INTERNAL CAROTID ARTERY: No hemodynamically significant diamete r stenosis or dissection. VERTEBRAL ARTERIES: Patent extracranial segments without s ignificant stenosis. No dissection. The vertebral arteries are codominant. OTHER: Respiratory motion limits evaluation o f the lungs. No neck mass or suspicious lymph nodes. The visualized osseous structures are unremarkable. CTA Head: No large vessel occlusion or hemodynam ically significant stenosis, aneurysm, dissection, or arteriovenous malformati on. There is persistent origin of the left posterior cerebral artery. Procedure Note Interface, Received Via [employer] - 12/03/2020 4:59 PM EST INDICATION: 40-year-old female, monocular vision loss and migraines. TECHNIQUE: Contiguous axial CT images of the head were acquired from the base of the skull to the vertex without intravenous contrast administration. CT angiography of the head and neck was performed following intravenous administration of 75 mL of Omnipaque 350. Multiple MIP images in axial, coronal, and sagittal planes were then acquired using the source data. 3-D volume rendered images were not available at the time of this dictation. Automated dose lowering techniques and/or adjustment according to patient size were utilized for this examination. COMPARISON: CT head noncontrast from same date. FINDINGS: Non-enhanced CT head: There is no evidence of acute intracranial hemorrhage or large territorial infarct. There are no extraaxial fluid collections, mass effect or midline shift. The ventricles and basal cisterns appear normal. The imaged paranasal sinuses and mastoid air cells are clear. There are no depressed calvarial fractures. CTA Neck: GREAT VESSELS: The imaged three vessel aortic arch is patent. RIGHT INTERNAL CAROTID ARTERY: No hemodynamically significant diameter stenosis or dissection. LEFT INTERNAL CAROTID ARTERY: No hemodynamically significant diameter stenosis or dissection. VERTEBRAL ARTERIES: Patent extracranial segments without significant stenosis. No dissection. The vertebral arteries are codominant. OTHER: Respiratory motion limits evaluation of the lungs. No neck mass or suspicious lymph nodes. The visualized osseous structures are unremarkable. CTA Head: No large vessel occlusion or hemodynamically significant stenosis, aneurysm, dissection, or arteriovenous malformation. There is persistent origin of the left posterior cerebral artery. IMPRESSION: 1. Normal CTA head. 2. Normal CTA neck. 3. No acute intracranial hemorrhage or evidence of acute infarction. Assessment of stenosis of the internal carotid arteries is based on NASCET criteria. Addendum by Dr Maya: There is limited evaluation of the intracranial major arterial tree due to motion in particular the right M1 and the bilateral geometry tutor.. The major arterial tree within the neck is patent. Performing Organization Address City/State/Zipcode Ph one Number [facility] [address] [place] [address] * CT Angiography Head ; Emergent exam: waive labs (12/03/2020 3:44 PM EST) Specimen Impressions Performed At IMPRESSION: [facility] 1. Normal CTA head. 2. Normal CTA neck. 3. No acute intracranial hemorrhage or ev idence of acute infarction. Assessment of stenosis of the internal carotid arteries is based on NASCET criteria. Addendum by Dr Maya: There is limite d evaluation of the intracranial major arterial tree due to motion in particul ar the right M1 and the bilateral geometry tutor.. The major arterial tree within the neck is patent. Narrative Performed At INDICATION: 40-year-old female, monocular vision loss and migraines. [facility] TECHNIQUE: Contiguous axial CT images o f the head were acquired from the base of the skull to the vertex without intrave nous contrast administration. CT angiography of the head and neck was performed following intravenous administration of 75 mL of Omnipaque 35 0. Multiple MIP images in axial, coronal, and sagittal planes were then acquired using the source data. 3-D volume rendered images were not av ailable at the time of this dictation. Automated dose lowering techniques and/ or adjustment according to patient size were utilized for this examination. COMPARISON: CT head noncontrast from me date. FINDINGS: Non-enhanced CT head: There is no evidence of acute intracran ial hemorrhage or large territorial infarct. There are no extraaxial fluid collecti ons, mass effect or midline shift. The ventricles and basal cisterns appea r normal. The imaged paranasal sinuses and mastoi d air cells are clear. There are no depressed calvarial fractures. CTA Neck: GREAT VESSELS: The imaged three vessel aortic arch is patent. RIGHT INTERNAL CAROTID ARTERY: No hemodynamically significant diamete r stenosis or dissection. LEFT INTERNAL CAROTID ARTERY: No hemodynamically significant diamete r stenosis or dissection. VERTEBRAL ARTERIES: Patent extracranial segments without s ignificant stenosis. No dissection. The vertebral arteries are codominant. OTHER: Respiratory motion limits evaluation o f the lungs. No neck mass or suspicious lymph nodes. The visualized osseous structures are unremarkable. CTA Head: No large vessel occlusion or hemodynam ically significant stenosis, aneurysm, dissection, or arteriovenous malformati on. There is persistent origin of the left posterior cerebral artery. Procedure Note Interface, Received Via [employer] - 12/03/2020 4:59 PM EST INDICATION: 40-year-old female, monocular vision loss and migraines. TECHNIQUE: Contiguous axial CT images of the head were acquired from the base of the skull to the vertex without intravenous contrast administration. CT angiography of the head and neck was performed following intravenous administration of 75 mL of Omnipaque 350. Multiple MIP images in axial, coronal, and sagittal planes were then acquired using the source data. 3-D volume rendered images were not available at the time of this dictation. Automated dose lowering techniques and/or adjustment according to patient size were utilized for this examination. COMPARISON: CT head noncontrast from same date. FINDINGS: Non-enhanced CT head: There is no evidence of acute intracranial hemorrhage or large territorial infarct. There are no extraaxial fluid collections, mass effect or midline shift. The ventricles and basal cisterns appear normal. The imaged paranasal sinuses and mastoid air cells are clear. There are no depressed calvarial fractures. CTA Neck: GREAT VESSELS: The imaged three vessel aortic arch is patent. RIGHT INTERNAL CAROTID ARTERY: No hemodynamically significant diameter stenosis or dissection. LEFT INTERNAL CAROTID ARTERY: No hemodynamically significant diameter stenosis or dissection. VERTEBRAL ARTERIES: Patent extracranial segments without significant stenosis. No dissection. The vertebral arteries are codominant. OTHER: Respiratory motion limits evaluation of the lungs. No neck mass or suspicious lymph nodes. The visualized osseous structures are unremarkable. CTA Head: No large vessel occlusion or hemodynamically significant stenosis, aneurysm, dissection, or arteriovenous malformation. There is persistent origin of the left posterior cerebral artery. IMPRESSION: 1. Normal CTA head. 2. Normal CTA neck. 3. No acute intracranial hemorrhage or evidence of acute infarction. Assessment of stenosis of the internal carotid arteries is based on NASCET criteria. Addendum by Dr Maya: There is limited evaluation of the intracranial major arterial tree due to motion in particular the right M1 and the bilateral geometry tutor.. The major arterial tree within the neck is patent. Performing Organization Address [facility] one Number [facility] [address] [place] [address] * POCT i-STAT BHCG (12/03/2020 3:05 PM EST) i-STAT BHCG <5 <5 [IU]/L [facility] Comment: Hospital POC (NOTE) Levels between 5 and 25 [IU]/L may indicate early and should be repeated after 48 hours. Specimen Whole Blood Performing Organization Address [facility] one Number POINT OF CARE TEST [address] [place] [address] [facility] POC [address] [place] [address] * POCT i-STAT Chem 8 (12/03/2020 3:01 PM EST) i-STAT Sodium 132 (L) 136 - 145 mmol/L [facility] POC i-STAT 3.7 3.4 - 5.1 mmol/L [facility] Potassium [facility] POC i-STAT Chloride 99 98 - 107 mmol/L [facility] POC i-STAT TCO2 23 22 - 29 mmol/L [facility] POC i-STAT Ionized 1.18 1.13 - 1.32 mmol/L [facility] v Calcium [facility] POC i-STAT Glucose 65 (L) 70 - 140 mg/dL [facility] POC i-STAT BUN 4 (L) 6 - 20 mg/dL [facility] POC i-STAT 1.0 (H) 0.50 - 0.90 mg/dL [facility] Creatinine [facility] POC i-STAT 39 36 - 45 % [facility] Hematocrit [facility] POC i-STAT 13.3 11.5 - 15.5 g/dL [facility] Hemoglobin Hospital POC Specimen Whole Blood Performing Organization Address [facility] one Number POINT OF CARE TEST [address] [place] [address] [facility]OC [address] [place] [address] * POCT i-STAT VBG Lactic Acid (12/03/2020 2:55 PM EST) i-STAT Venous 7.30 (L) 7.36 - 7.41 [facility] pH [facility] POC i-STAT Venous 46 (H) 40 - 45 mmHg [facility] PCO2 [facility] POC i-STAT Venous 22 mmHg [facility] PO2 Hospital POC i-STAT Venous NEG 4 mmol/L [facility] Base Excess Hospital POC i-STAT Venous 31 (L) 60 - 85 % [facility] SO2 Hospital POC i-STAT Venous 0.8 0.5 - 2.2 mmol/L [facility] Lactic Acid Hospital POC i-STAT Venous 24 mmol/L [facility] Total CO2 Hospital POC Specimen Whole Blood Performing Organization Address [facility] one Number POINT OF CARE TEST [address] [place] [address] [facility] POC [address] [place] [address] * Sedimentation rate, automated (12/03/2020 2:53 PM EST) Sed Rate - ESR 5 <20 mm/hr [facility] Clin Pathology Specimen EDTA Whole Blood Performing Organization Address [facility] one Number [facility] [address] [place], [place] [address] [address] Clin Pathology * Protime-INR (12/03/2020 2:53 PM EST) Pathologist [facility] PT Patient 12.3 (L) 12.5 - 14.9 s [facility] Clin Pathology Int'l 0.91Comment: Routine intensity [facility] Normalized oral anticoagulation INR is Med Univ Clin Ratio typically 2.0-3.0. Target INR Patholo gy must be clinically individualized. Specimen Plasma Performing Organization Address [facility] one Number [facility] [address] [place], [place] [address] [address] Clin Pathology * Basic Metabolic Panel (12/03/2020 2:53 PM EST) Bicarbonate 22 22 - 29 mmol/L [facility] Pathology Chloride 100 98 - 107 mmol/L [facility] Pathology Creatinine 0.89 0.50 - 0.90 mg/dL [facility] Pathology Glucose 59 (L) 70 - 140 mg/dL [facility] Pathology Potassium 3.9Comment: Hemolyzed 3.4 - 5.1 mmol/L [facility] Clin Pathology Sodium 129 (L) 136 - 145 mmol/L [facility] Clin Pathology Blood Urea 5 (L) 6 - 20 mg/dL [facility] Nitrogen [facility] Clin Pathology Anion Gap 7 (L) 8 - 15 mmol/L [facility] Pathology Osmolality, Link 263 (L) 275 - 300 mosm/kg [facility] Clin Pathology BUN/Cre Ratio 6 [facility] Clin Pathology Calcium 8.2 (L) 8.6 - 10.0 mg/dL [facility] Clin Pathology GFR Non 79 >60 mL/min/1.73m2 [facility] 2008 Med [facility] Clin CDK-EPI Pathology GFR >90 >60 mL/min/1.73m2 [facility] [address] [facility] CKD-EPI Pathology Specimen Plasma Performing Organization Address City/State/[facility] Ph one Number [facility] [address] [place], [place] [address] PATHOLOGY [facility] [address] [place], [place] [address] Clin Pathology * CBC and Differential (12/03/2020 2:53 PM EST) White Blood 12.1 (H) 4 - 10 10*3/uL [facility] Cell [facility] Clin Pathology Red Blood Cell 4.16 4.1 - 5.3 10*6/uL [facility] Clin Pathology Hemoglobin 12.9 11.5 - 15.5 g/dL [facility] Clin Pathology Hematocrit 37.7 36 - 45 % [facility] Clin Pathology Mean Cell 90.7 80 - [address] [facility] Volume [facility] Clin Pathology Mean Cell 31.0 27 - 33 pg [facility] Clin Pathology Mean Cell Hgb 34.2 32.0 - 36.0 g/dL [facility] Clin Pathology Red Cell Dist 14.4 11.5 - 14.5 % [facility] Width [facility] Clin Pathology Platelet Count 321 150 - 400 10*3/uL [facility] Clin Pathology Differential Automated Diff [facility] Type [facility] Clin Pathology Neutrophil 66 % [facility] Clin Pathology Lymphocyte 24 % [facility] Clin Pathology Monocyte 7 % [facility] Clin Pathology Eosinophil 2 % [facility] Clin Pathology Basophil 1 % [facility] Clin Pathology Abs Neutrophil 8.09 (H) 1.8 - 7.0 10*3/uL [facility] Clin Pathology Abs Lymphocyte 2.93 1.2 - 4.0 10*3/uL [facility] Clin Pathology Abs Monocyte 0.81 (H) 0 - 0.8 10*3/uL [facility] Clin Pathology Abs Eosinophil 0.21 0 - 0.5 10*3/uL [facility] Clin Pathology Abs Basophil 0.10 0 - 0.2 10*3/uL [facility] Clin Pathology Nucleated Red 0 0 - 0 /100{WBCs} [facility] Blood Cells [facility] Clin Pathology Specimen EDTA Whole Blood Performing Organization Address City/State/Zipcode Ph one Number [facility] [address] [place], [place] [address] PATHOLOGY [facility] [address] [place], [place] [address] Clin Pathology * EKG 12-LEAD - CMAXX REPORT (12/03/2020 2:41 PM EST) Narrative Performed At This result has an attachment that is n ot available. * CT Head without Contrast (12/03/2020 2:30 PM EST) Specimen Impressions Performed At IMPRESSION: [facility] No evidence of acute intracranial patho logy Preliminary findings were discussed wit h Dr. Dumont at 2:34 PM on 12/03/2020 Narrative Performed At CLINICAL INDICATION: 40-year-old female, assess for s troke, left extremity [facility] weakness and headache. TECHNIQUE: Contiguous axial CT images o f the head were acquired in 5 and reconstructed in 1.25mm slices from the base of the skull to the vertex without intravenous contrast administration. Im ages were viewed in brain, subdural and bone windows. Automated dose lowering t echniques and/or adjustment according to patient size were utilized for this exa m. COMPARISON: CT head dated 09/23/2019. FINDINGS: There is no evidence of acute intracran ial hemorrhage or large territorial infarct. There are no extraaxial fluid collecti ons, mass effect or midline shift. The ventricles and basal cisterns appea r normal.. The imaged paranasal sinuses and mastoi d air cells are clear. There are no depressed calvarial fractures. Procedure Note Interface, Received Via Radiant System - 12/03/2020 4:39 PM EST CLINICAL INDICATION: 40-year-old female, assess for stroke, left extremity weakness and headache. TECHNIQUE: Contiguous axial CT images of the head were acquired in 5 and reconstructed in 1.25mm slices from the base of the skull to the vertex without intravenous contrast administration. Images were viewed in brain, subdural and bone windows. Automated dose lowering techniques and/or adjustment according to patient size were utilized for this exam. COMPARISON: CT head dated 09/23/2019. FINDINGS: There is no evidence of acute intracranial hemorrhage or large territorial infarct. There are no extraaxial fluid collections, mass effect or midline shift. The ventricles and basal cisterns appear normal.. The imaged paranasal sinuses and mastoid air cells are clear. There are no depressed calvarial fractures. IMPRESSION: No evidence of acute intracranial pathology Preliminary findings were discussed with Dr. Dumont at 2:34 PM on 12/03/2020 Performing Organization Address City/State/Zipcode Ph one Number [facility] [address] [place] [address] documented in this encounter Visit Diagnoses Diagnosis Migraine without status migrainosus, no t intractable, unspecified migraine type - Primary documented in this encounter Administered Medications Action Date Dose Rate Site Medication Order [facility] Action prochlorperazine (COMPAZINE) injection 10 mg 10 mg, Intravenous, Every 6 hours PRN , Nausea, Vomiting, Starting 12/03/20 at 1430, For 30 days, For IV use: Prepare in 50 mL NS and infuse over 15 minutes., Action Date Dose Rate Site Medication Order [facility] Action 12/03/2020 2:56 PM EST 50 mg diphenhydrAMINE (BENADRYL) injection 50 New Bag mg 50 mg, Intravenous, Once, Thu12/03/20 a t 1445, For 1 dose 12/03/2020 3:48 PM EST 75 mLs iohexol (OMNIPAQUE) 350 MG/ML contrast Given injection 75 mL 75 mL, Given by IV, 1 TIME IMAGING, 12/03/20 at 1545, For 1 dose 12/03/2020 2:55 PM EST 15 mg ketorolac (TORADOL) 30 MG/ML injection New Bag 15 mg 15 mg, Intravenous, Once, 12/03/20 a t 1445, For 1 dose 12/03/2020 2:56 PM EST 1,000 mLs 999 mL/hr lactated ringers bolus 1,000 mL New Bag 1,000 mL, Intravenous, Once, Mon 1 at 1445, For 1 dose 12/03/2020 2:56 PM EST 1 g 400 mL/hr magnesium sulfate in dextrose 5 % New Bag infusion (premix) 1 g 1 g, Intravenous, Administer over 15 Minutes, Once, Thu12/03/20 at 1445, For 1 dose documented in this encounter
--- OUTSIDE RECORDS SUMMARY | 2021-01-02 14:29 | CCD ---
Author Author Madhavi Eddy Organization Unknown Address [address] [place] [address] Phone Care Team Providers Care [place] Folder Name Role Phone Zoe Eddy PCP Chief Complaint and Reason for Visit Chief Complaint Allergies, Adverse Reactions, Alerts Concept Allergy Name Reaction Severity Onset Date Status Documentation Date Phone Number Npid Taxonomy Code Taxonomy Desc Author Last Name Author Fi rst Name Concept Type 782218 Abilify (aripiprazole) Anxiety 09/22/2019 Active 2018 [id number] Nurse Practitioner Juanito Fuentes RXNORM 396342 oxcarbazepine hyponatremia 01/06/2019 Active 01/06/2019 [id number] Psychiatry [facility] RXNORM 225225 omeprazole rash 10/30/2017 Active 10/30/2017 [id number] 1 [id number] Psychiatry [facility] RXNORM 994106 levofloxacin rash 10/30/2017 Active 10/30/2017 [id number] Psychiatry [facility] RXNORM 079434 Imitrex (sumatriptan succinate) rash 10/30/2017 Activ e 10/30/2017 [id number] Psychiatry [facility] RXNORM 399463 amoxicillin rash 10/30/2017 Active 10/30/2017 [id number] Psychiatry [facility] RXNORM 438130 lisinopril difficulty breathing hives Active 04/16/20 18 [id number] Psychiatry Raquel Cardona RXNORM 491 Sulfa (Sulfonamide Antibiotics) Group difficulty breathing h donis Active 04/16/2018 [id number] Psychiatry [facility] Brendan FDDC [id number] Lunesta (eszopiclone) difficulty breathing hives Activ e 04/16/2018 [id number] Psychiatry Raquel Cardona RXNORM 972250 cephalexin difficulty breathing hives Active 04/16/20 18 [id number] [facility] 600270 bupropion hcl difficulty breathing hives Active 04/16 [id number] [facility] Problem List Concept Problem Description Status Start Date Created Date Resolv ed Date Snomed Code F32.9 Unspecified depressive Disorder Active 12/21/19 21 F17.200 Tobacco Use Disorder, Moderate Active Medications Rx Norm Medication Route Route Concept Start Date Stop Date Dosage Jose Alberto quency Duration Formula Strength Dosage Form Dosage Form Code Dosage Description Medication Id Account Npid Author First Name Author Last Name Taxonomy Code Taxonomy Desc Phone Number [phone] lorazepam by mouth [id number] 05/18/2018 at bedtime 1 [place] [id number] Gina Solomon [id number] Nurse Practitioner [phone] [id number] Benadryl Allergy by mouth [id number] 05/18/2018 at bedtime 25 mg tablet as needed [id number] Gina Juanito [id number] Nurse P tatianatitioner [phone] Social History Social History Element Description Concept Effective Date Smoking Status Unknown if ever smoked [id number] Immunizations No Data in Section Vital Signs No Data in Section Procedures Date Concept Id Description Targeted Site Concept Targeted Site Concept Type 12/21/2020 42418 Extended Individual Psychotherapy - 45 min CPT Patient has no history of implantable de vices Encounters Encounter Start Date End Date Encounter Type Description Diagnosis Di agnosis Desc Location Author First Name Author Last Name Npid Taxonomy Cod e Taxonomy Desc Phone Number Location Addr1 Location Addr2 Location [facility] Location Sta te Location Zip [address] 12/21/2020 12/21/2020 84268 Extended Individual Psych otherapy - 45 min F32.9 Major depressive disorder, single episode, unspecified [facility] [phone] Slasher Tender Helper [id number] [address] Plan of Treatment No Data in Section Lab Results No Data in Section Instructions No Data in Section Insurance Providers Insurance Id Policy Effective Date Policy Thru Date Company [employer] [id number] 2013 MEDICARE [id number] 2017 MEDICAID
--- OUTSIDE RECORDS SUMMARY | 2021-01-02 14:30 | CCD ---
Author Author Reji ALVAREZ (6.0)DESIRAE [facility] Address Unknown Phone Unavailable Care Team Providers Care Health And Safety Specialist Name Role Phone NGOZI, VIDAL Unavailable Unavailable UNKNOWN, UNKNOWN Unavailable Unavailable Key Morrison Unavailable Allergies and Adverse Reactions Allergen Qualifier Severity Reaction(s) Comments Bupropion Keflex Latex Levaquin Lisinopril Lunesta Omeprazole Sulfa Antibiotics Trimethoprim Problems Problem Onset Date Resolved Date Status Comments Anxiety Reaction Active Arthritis Active Bulimia Active Chronic Headache Active Depression Active Fibromyalgia Active Hypertension Active Hyperthyroidism Active Intellectual functioning disability Activ e Migraine Headache Active Hospital Admission Diagnosis Admission Diagnosis Onset Date Resolved Date Status Comment s No information available Medications Home Medications Details No information available Medications Administered Medication Orders Details diphenhydrAMINE HCl Injection 50 mg (NOW x1) Ketorolac Tromethamine Intravenous 30 mg (NOW x1) Reglan Injection 10 mg (NOW x1) Saline Solution : Bolus 1000 mL, then TKO - Fioricet Oral 1 tab (NOW x1) Administered Medications Route Dose Bolus/Duration Rate/Du ration Additive/Diluents/Constituents Location Comments Date/Time diphenhydrAMINE HCl Injection IVP 50 mg #1 left forearm Given: 11/16/2020 20:50 Ketorolac Tromethamine Intravenous IVP 30 mg #1 left forearm Given: 11/16/2020 22:13 Reglan Injection IVP 10 mg #1 left forearm Given: 11/16/2020 23:45 Saline Solution IV Fluids 1000 mL/hr #1 left for earm Start: 11/16/2020 23:40 Stop: 11/17/2020 01:12 Fioricet Oral PO 1 tab Gi chirag: 11/16/2020 23:45 Hospital Discharge Medications Hospital Discharge Prescribed Medication None Procedures Procedure Date Performed Comments IV Hydration Nov 16, 2020 IV Hydration Nov 16, 2020 IV Push Diphenhydramine [IVP] Nov 16, 2020 IV Push Ketorolac [IVP] Nov 16, 2020 IV Push Reglan [IVP] Nov 16, 2020 Functional Status Functional and Cognitive Assessment Documentation Date Cond ition Status No information available Immunizations Medication Dose/Units Lot# Exp. Date Turning Lathe Tender Name Given No information available Results ACCULA SARS-COV-2 (BALAJI: 11/16/2020 19:53) (MsgRcvd 11/16/2020 21:20) Final Results Test Result Flag Reference Range ACCULA SARS-COV-2 NEGATIVE Testing performed by nucleic acid amplification. This test has not been FDA cleared or approved. This test has been authorized by FDA under an Emergency Use Authorization (EUA). This test is only authorized for the duration of the declaration that circumstances exist justifying the authorization of emergency use of in vitro diagnostic tests for detection and/or diagnosis of COVID-19 under Section 564(b)(1) of the Act, 21 U.S.C. 360bbb-3(b)(1), unless the authorization is terminated or revoked sooner. Positive results are indicative of the presence of SARS-CoV-2 nucleic acid; clinical correlation with patient history and other diagnostic information is necessary to determine patient infection status. Positive results do not rule out bacterial infection or co-infection with other viruses. NEGATIVE CT HEAD W/O IV CONTRAST (MsgRcvd 11/16/2020 21:45) Final Results Test Result Flag Reference Range CT brain Clinical History: Headache Technique: Axial CT images of the brain were obtained. Multiplanar including sagittal and coronal reformatted images are presented. CT imaging was performed utilizing dose reduction techniques including automated exposure control and iterative reconstruction technique. Comparison: No relevant previous exams are available for comparison. Contrast: No intravenous contrast was administered for the exam. Findings: Brain and Ventricles: There is no acute intracranial hemorrhage. Cortical sulcal pattern is symmetric and in the range of normal. There is normal zendejas-white matter differentiation. There is no infarct noted. There is no mass. There is no mass effect. There is no midline shift. The ventricles are normal in shape and size for patient age. No cerebellopontine angle lesion is seen. The IACs are symmetric. There is no significant intracranial vascular calcification. Extra-Axial Spaces: No subdural or epidural collections are noted. Sella/Craniocervical Junction: There is no sellar or suprasellar lesion. Craniocervical junction is in the range of normal. Visualized Paranasal Sinuses and Orbits: The included paranasal sinuses and mastoid air cells are well-aerated. No gross bulbar or retrobulbar pathology is noted. Calvarium: No gross osseous pathology is seen. There is no scalp hematoma or foreign body. Impression: There is no acute intracranial pathology. There is no hemorrhage. There is no mass or mass effect. There is no territorial infarct seen. Other findings as above. As appropriate, post contrast CT of the brain or MRI would provide a more sensitive neural imaging assessment in the appropriate clinical setting. Electronically Signed By: DHARMESH ACOSTA MD Date: 11/16/2020 21:43 CBC (BALAJI: 11/16/2020 20:50) (MsgRcvd 11/16/2020 20:53) Final Results Test Result Flag Reference Range WBC 8.4 4.3-10.9 x10E3/u L RBC 4.12 3.80-5.30 x10E6/ uL HEMOGLOBIN 12.6 11.8-15.8 g/dl HEMATOCRIT 38.3 35.0-47.0 % MCV 93.0 82.0-98.0 fl MCH 30.6 27.5-33.5 pg MCHC 32.9 32.0-36.0 g/dl RDW 13.9 11.5-14.5 % PLATELET COUNT 276 130-400 x10E3/uL MPV 10.0 8.6-12.6 fl SEGMENTED NEUTROPHILS 55.7 44.0-74.0 % LYMPHOCYTES 35.0 15.0-45.0 % MONOCYTES 6.8 2.0-13.0 % EOSINOPHILS 1.8 0.0-6.0 % BASOPHILS 0.7 0.0-2.0 % NEUTROPHIL ABSOLUTE 4.7 1.4-7.0 x10 E3/uL LYMPHOCYTES ABSOLUTE 2.9 1.0-3.4 x10 E3/uL MONOCYTE ABSOLUTE 0.6 0.2-1.0 x10 E3/uL EOSINOPHIL ABSOLUTE 0.2 0.0-0.5 x10 E3/uL BASOPHIL ABSOLUTE 0.1 0.0-0.2 x10 E3/uL COMPREHENSIVE W/RATIOS (BALAJI: 11/16/2020 20:50) (MsgRcvd 11/16/2020 21:10) Final Results Test Result Flag Reference Range GLUCOSE 97 70-100 mg/dl BUN 18 4-18 mg/dl CREATININE, SERUM 0.89 0.50-1.10 mg/d l SODIUM 137 136-146 mmol/l POTASSIUM 4.6 3.5-5.3 mmol/l CHLORIDE 104 96-109 mmol/l CARBON DIOXIDE 23 20-32 mmol/l ALBUMIN 3.5 3.5-5.0 g/dl PROTEIN, TOTAL 5.4 L 6.4-8.2 g/dl CALCIUM 8.5 8.4-10.4 mg/dl ALKALINE PHOSPHATASE 56 10-118 U/l SGOT (AST) 14 3-40 U/l SGPT (ALT) 15 7-50 U/l BILIRUBIN, TOTAL 0.20 L 0.30-1.20 mg/dl BUN/CREATININE RATIO 20.2 H 6.0-20.0 GLOBULIN 1.9 L 2.3-3.5 g/dl ANION GAP 10.0 7.0-16.0 mmol/l OSMOLALITY (CALCULATED) 276 L 280-300 mos/kg A/G RATIO 1.8 1.0-2.0 , SERUM (BALAJI: 11/16/2020 20:50) (MsgRcvd 11/16/2020 21:10) Final Results Test Result Flag Reference Range , SERUM NEGATIVE NEGATIVE EGFR (CALCULATED) (BALAJI: 11/16/2020 20:50) (MsgRcvd 11/16/2020 21:10) Final Results Test Result Flag Reference Range EGFR 80 >59 mL/min/1.73m2 EGFR, -MALAWIAN 93 >59 mL/min/1.73m2 Note: Persistent reduction for 3 months or more in an eGFR <60 mL/min/1.73m2 defines CKD. Patients with eGFR values >=60 mL/min/1.73m2 may also have CKD if evidence of persistent proteinuria is present. Additional information may be found at [email or web address]/[email or web address]. Social History Social History Element Description Effective Dates Sex Female 1980 Smoking former smoker Unknown Vital Signs * Weight: 86.6 kg (191 lb) stated at 11/16/2020 7:36:59 PM * Height: 170.1 cm (67 inches) Per Patient at 11/16/2020 7:36:59 PM * BMI (Body Mass Index): 29.9 kg/m2 at 11/16/2020 7:36:59 PM Date/Time Blood Pressure Heart Rate Respiratory Rate Temperature O2 Saturation 11/17/2020 12:59:33 AM 130/77 mmHg 60 /minute 18 /minute 36.78 C 100 % 11/16/2020 10:18:20 PM 138/85 mmHg 11/16/2020 8:01:13 PM 140/82 mmHg 60 /minute 18 /minute 37.17 C 98% Hospital Discharge Instructions Instruction Thank you for visiting the [facility]-Emergency Department. You have been evaluated today by VIDAL MELVIN MD for the following condition(s): Acute nontraumatic pain in the head. Migraine headache. Depression. The following test(s) and/or procedure(s) were performed during your visit today. Laboratory Tests CBC w DiffComprehensive PanelCoronavirus ( SARS-COV-2) [place] IN HOUSELevetiracetam SerumPregnancy Serum Diagnostic Studies CT Head wo IV Cont INSTRUCTIONS (Drink plenty of fluids. Recommend that bilingual social worker at [facility] evaluate patient for depression - regarding follow up care and treatment.). Warnings: Further evaluation is necessary. GENERAL WARNINGS: Return or contact your physician immediately if your condition worsens or changes unexpectedly, if not improving as expected, or if other problems arise. Follow-up: Follow up with your doctor Neuro in [place] in seven days even if well. Call for the next available appointment. Reason for referral: evaluation and treatment. Understanding of the discharge instructions verbalized by patient. Follow-up with: Key Morrison MD, , , [facility], [address] [place] [address], [phone] Follow up in two days even if well. Call for the next available appointment. Reason for referral: evaluation and treatment. Hospital Discharge Diagnoses Diagnosis Onset Date Resolved Date Status Comments Acute Pain Active Depression Active Migraine Headache Active Reason For Visit headache Reason For Referral None Health Concerns Section Concern Status No information available Medical Equipments Implanted Device Manufacturing Date Expiration Date No information available Assessments Assessment You have been evaluated by VIDAL MELVIN MD for the following conditions: Migraine headache. Acute nontraumatic pain in the head. Depression. The following test(s) and/or procedure(s) were performed during your visit today. Laboratory Tests: CBC w Diff, Comprehensive Panel, Coronavirus ( SARS-COV-2) [place] IN HOUSE, Levetiracetam Serum, and Serum Diagnostic Studies: CT Head wo IV Cont Goals Observation Goal Status No information available Treatment Plan Planned Care Start Date No information available Encounters Encounter Diagnosis Location Date Acute Pain [facility] 11/16/2020 Depression [facility] 11/16/2020 Migraine Headache [facility] 11/16/2020
--- OUTSIDE RECORDS SUMMARY | 2021-01-02 14:33 | CCD ---
Author Author [facility] Organization [facility] Address Unknown Phone Unavailable Support Name Relationship Address Phone CONTACT, UNKNOWN Next Of Kin Unknown [place] [address] Sadie Niño (Cousin/Healt Next Of Kin Unknown [facility] Carmen Tirado Next Of Kin [address] [place] [address] [place] Next Of Kin Unknown Unavailable KATIE NIÑO Next Of Kin Unknown D Next Of Kin Unknown Unavailable Shaniqua George Next Of Kin [address] [place] [phone] FIDELIA ROMAN Next Of Kin [address] [place] [address] [place] [address] SADIE NIÑO Next Of Kin Unknown Elaine Arnold Next Of Kin [address] [place] [address] SADIE MATTSON Next Of Kin Unknown [place] [address] Osiris Ceja Next Of Kin [address] [place] [phone] Benita [place] [address] ( CELL UE Next Of Kin Unknown Unavailable ALEXANDRO DE ANDA Next Of Kin [place], [place] ALEXANDRO EWING Next Of Kin [place], [place] SRINIVAS MONTALVO Next Of Kin Unknown DISABLED Next Of Kin Unknown Unavailable LES MONTALVO Next Of Kin [phone] [place] [address] PORFIRIO MEHTA Next Of Kin [address] [place], [place] [id number] FIDELIA ROMAN ECON [address] [facility] [place] [address] Unavailable Constantin Niño ECON Unknown NIÑOSADIE LANDIN ECON [address] [place] [address] [phone] Care Team Providers Care Legislative Advocate Name Role Phone NONE , MD ON NONE Unavailable Unavailable Colon, Jose Unavailable Unavailable Colon, Jose Unavailable Unavailable Colon, Jose Unavailable Unavailable Colon, Jose Unavailable Unavailable Akin GUTIERREZ MD Unavailable Unavailable Akin GUTIERREZ MD Unavailable Unavailable Akin GUTIERREZ MD Unavailable Unavailable Akin GUTIERREZ MD Unavailable Unavailable Akin GUTIERREZ MD Unavailable Unavailable Akin GUTIERREZ MD Unavailable Unavailable Akin GUTIERREZ MD Unavailable Unavailable Akin GUTIERREZ MD Unavailable Unavailable Akin GUTIERREZ MD Unavailable Unavailable Akin GUTIERREZ MD Unavailable Unavailable Akin GUTIERREZ MD Unavailable Unavailable Akin GUTIERREZ MD Unavailable Unavailable Akin GUTIERREZ MD Unavailable Unavailable EMILY PATRICK MD Unavailable Unavailable LJ RODRIGUEZ DO Unavailable Unavailable VICKIE MELLO MD Unavailable VICKIE MELLO MD Unavailable VICKIE MELLO MD Unavailable VICKIE MELLO MD Unavailable Dator SR, Sonia Anderson MD Unavailable [...] COVID 19, Morningstr null Unavailable Unava ilable Mitchel, Benita Ignacio MD Unavailable Unavailable Mitchel, [...] MD Unavailable Unavailable PANTSHARI MD Unavailable Unavailable PANTSHARI MD Unavailable Unavailable PANTSHARI MD Unavailable Unavailable DonBunny MD Unavailable Unavailable Don, Renko PEARSON Unavailable Unavailable Don, Renko PEARSON Unavailable Unavailable Don, Bunny PEARSON Unavailable Unavailable Don, Renko PEARSON Unavailable Unavailable Don, Renko PEARSON Unavailable Unavailable Don, Bunny PEARSON Unavailable Unavailable Don, Bunny PEARSON Unavailable Unavailable DonBunny MD Unavailable Unavailable Don, Renko PEARSON Unavailable Unavailable Don Renko PEARSON Unavailable Unavailable Don, Renko PEARSON Unavailable Unavailable Don, Renko MD Unavailable Unavailable Don, Renko MD Unavailable Unavailable Don, Renante MD Unavailable Unavailable Don, Renko MD Unavailable Unavailable Don, Renante MD Unavailable Unavailable Don, Renante MD Unavailable Unavailable Don, Renante MD Unavailable Unavailable Don, Renante MD Unavailable Unavailable Don, Renante MD Unavailable Unavailable Don, Renante MD Unavailable Unavailable Don, Renante MD Unavailable Unavailable Don, Renante MD Unavailable Unavailable Don, Renante MD Unavailable Unavailable Don, Renante Unavailable Unavailable Don, Renante MD Unavailable Unavailable Don, Renante MD Unavailable Unavailable Don, Renante MD Unavailable Unavailable BollaEmiliano MD Unavailable Unavailable Bolla, Emiliano Tracy MD Unavailable Unavailable Bolla, Emiliano Tracy MD Unavailable Unavailable Bolla, Emiliano Tracy MD Unavailable Unavailable Bolla, Emiliano Tracy MD Unavailable Unavailable Bolla, Emiliano Tracy MD Unavailable Unavailable Bolradha, Emiliano Tracy MD Unavailable Unavailable Bolla, Emiliano Tracy MD Unavailable Unavailable Bolla, Emiliano Tracy MD Unavailable Unavailable Bolla, Emiliano Tracy MD Unavailable Unavailable Bolla, Emiliano Tracy MD Unavailable Unavailable Bolla, Emiliano Tracy MD Unavailable Unavailable Bolla, Emiliano Tracy MD Unavailable Unavailable Bolla, Emiliano Tracy MD Unavailable Unavailable Bolla, Emiliano Tracy MD Unavailable Unavailable Bolla, Emiliano Tracy MD Unavailable Unavailable Bolla, Emiliano Tracy MD Unavailable Unavailable Bolla, Emiliano Tracy MD Unavailable Unavailable Bolla, Emiliano Tracy MD Unavailable Unavailable Bolla, Emiliano Tracy MD Unavailable Unavailable Bolla, Emiliano Tracy MD Unavailable Unavailable Bolla, Emiliano Tracy MD Unavailable Unavailable Bolla, Emiliano Tracy MD Unavailable Unavailable Bolla, Emiliano Tracy MD Unavailable Unavailable [place], Emiliano Tracy MD Unavailable Unavailable Bolla, Emiliano Tracy MD Unavailable Unavailable Bolla, Emiliano Tracy MD Unavailable Unavailable Bolla, Emiliano Tracy MD Unavailable Unavailable [place], Emiliano Tracy MD Unavailable Unavailable Bolla, Emiliano Tracy MD Unavailable Unavailable Bolla, Emiliano Tracy MD Unavailable Unavailable [place], Emiliano Tracy MD Unavailable Unavailable [place], Emiliano Tracy MD Unavailable Unavailable [place], Emiliano Tracy MD Unavailable Unavailable Bolla, Emiliano Tracy MD Unavailable Unavailable [place], Emiliano Tracy MD Unavailable Unavailable BollaEmiliano MD Unavailable Unavailable BolEmiliano garcia MD Unavailable Unavailable Bolla, Emiliano Tracy MD Unavailable Unavailable [place], Emiliano Tracy MD Unavailable Unavailable [place], Emiliano Tracy MD Unavailable Unavailable [place], Emiliano Tracy MD Unavailable Unavailable [place], Emiliano Tracy MD Unavailable Unavailable Bolla, Emiliano Tracy MD Unavailable Unavailable [place], Emiliano Tracy MD Unavailable Unavailable Bolla, Emiliano Tracy MD Unavailable Unavailable [place], Emiliano Tracy MD Unavailable Unavailable Bolla, Emiliano Tracy MD Unavailable Unavailable Ian, A Elaine [employer] Unavailable Unavailable Ian, A Elaine [employer] Unavailable Unavailable [place], A Elaine [employer] Unavailable Unavailable [place], A Elaine [employer] Unavailable Unavailable [place], A Elaine [employer] Unavailable Unavailable [place], A Elaine [employer] Unavailable Unavailable [place], A Elaine [employer] Unavailable Unavailable [place], A Elaine [employer] Unavailable Unavailable [place], A Elaine [employer] Unavailable Unavailable [place], A Elaine [employer] Unavailable Unavailable [place], A Elaine [employer] Unavailable Unavailable [place], A Elaine [employer] Unavailable Unavailable [place], A Elaine [employer] Unavailable Unavailable [place], A Elaine [employer] Unavailable Unavailable [place], A Elaine VP [employer] Unavailable Unavailable [place], A Elaine VP [employer] Unavailable Unavailable [place], A Elaine [employer] Unavailable Unavailable [place], A Elaine [employer] Unavailable Unavailable [place], A Elaine VP [employer] Unavailable Unavailable [place], A Elaine VP [employer] Unavailable Unavailable [place], A Elaine [employer] Unavailable Unavailable [place], A Elaine [employer] Unavailable Unavailable [place], A Elaine [employer] Unavailable Unavailable [place], A Elaine [employer] Unavailable Unavailable [place], A Elaine [employer] Unavailable Unavailable [place], A Elaine [employer] Unavailable Unavailable [place], A Elaine [employer] Unavailable Unavailable [place], A Elaine [employer] Unavailable Unavailable Dmitriy PATRICK MD Unavailable Unavailable [...] Scott MD Unavailable Unavailable Zack, M Samina ROUTE DELIVERY CLERK Unavailable Unavailable Zack, M Samina ROUTE DELIVERY CLERK Unavailable Unavailable Zack, M Samina ROUTE DELIVERY CLERK Unavailable Unavailable Zack, M Samina ROUTE DELIVERY CLERK Unavailable Unavailable Zack, M Samina ROUTE DELIVERY CLERK Unavailable Unavailable Zack, M Samina ROUTE DELIVERY CLERK Unavailable Unavailable Zack, M Samina ROUTE DELIVERY CLERK Unavailable Unavailable Zack, M Samina ROUTE DELIVERY CLERK Unavailable Unavailable Zack, M Samina ROUTE DELIVERY CLERK Unavailable Unavailable Zack, M Samina ROUTE DELIVERY CLERK Unavailable Unavailable Zack, M Samina ROUTE DELIVERY CLERK Unavailable Unavailable Zack, M Samina ROUTE DELIVERY CLERK Unavailable Unavailable Zack, M Samina ROUTE DELIVERY CLERK Unavailable Unavailable Zoe Eddy Unavailable Soto, M Yen ROUTE DELIVERY CLERK Unavailable Unavailable Soto, M Yen ROUTE DELIVERY CLERK Unavailable Unavailable Soto, M Yen ROUTE DELIVERY CLERK Unavailable Unavailable Soto, M Yen ROUTE DELIVERY CLERK Unavailable Unavailable Soto, M Yen ROUTE DELIVERY CLERK Unavailable Unavailable Soto, M Yen ROUTE DELIVERY CLERK Unavailable Unavailable Soto, M Yen ROUTE DELIVERY CLERK Unavailable Unavailable Soto, M Yen ROUTE DELIVERY CLERK Unavailable Unavailable Soto, M Yen ROUTE DELIVERY CLERK Unavailable Unavailable Soto, M Yen ROUTE DELIVERY CLERK Unavailable Unavailable Soto, M Yen ROUTE DELIVERY CLERK Unavailable Unavailable Soto, M Yen ROUTE DELIVERY CLERK Unavailable Unavailable Soto, M Yen ROUTE DELIVERY CLERK Unavailable Unavailable Soto, M Yen ROUTE DELIVERY CLERK Unavailable Unavailable Soto, M Yen ROUTE DELIVERY CLERK Unavailable Unavailable Soto, M Yen ROUTE DELIVERY CLERK Unavailable Unavailable Soto, M Yen ROUTE DELIVERY CLERK Unavailable Unavailable Soto, M Yen ROUTE DELIVERY CLERK Unavailable Unavailable Soto, M Yen ROUTE DELIVERY CLERK Unavailable Unavailable Soto, M Yen ROUTE DELIVERY CLERK Unavailable Unavailable Soto, M Yen ROUTE DELIVERY CLERK Unavailable Unavailable Soto, M Yen ROUTE DELIVERY CLERK Unavailable Unavailable Soto, M Yen ROUTE DELIVERY CLERK Unavailable Unavailable Soto, M Yen ROUTE DELIVERY CLERK Unavailable Unavailable Soto, M Yen ROUTE DELIVERY CLERK Unavailable Unavailable Soto, M Yen ROUTE DELIVERY CLERK Unavailable Unavailable Soto, M Yen ROUTE DELIVERY CLERK Unavailable Unavailable Soto, M Yen ROUTE DELIVERY CLERK Unavailable Unavailable Soto, M Yen ROUTE DELIVERY CLERK Unavailable Unavailable Soto, M Yen ROUTE DELIVERY CLERK Unavailable Unavailable Soto, M Yen ROUTE DELIVERY CLERK Unavailable Unavailable Soto, M Yen ROUTE DELIVERY CLERK Unavailable Unavailable Soto, M Yen ROUTE DELIVERY CLERK Unavailable Unavailable Soto, M Yen ROUTE DELIVERY CLERK Unavailable Unavailable Soto, M Yen ROUTE DELIVERY CLERK Unavailable Unavailable Soto, M Yen ROUTE DELIVERY CLERK Unavailable Unavailable Soto, M Yen ROUTE DELIVERY CLERK Unavailable Unavailable Soto, M Yen ROUTE DELIVERY CLERK Unavailable Unavailable CLAYTON PARSONS MD Unavailable Unavailable [...] Unavailable Unavailable CLAYTON PARSONS MD Unavailable Unavailable VIDAL MELENDEZ MD Unavailable Unavailable VIDAL MELENDEZ MD Unavailable Unavailable [place], Vickie Unavailable Unavailable [place], Vickie Unavailable Unavailable [place], Vickie Unavailable Unavailable [place], Vickie Unavailable Unavailable [place], Vickie Unavailable Unavailable SUNG, CALHOUN DO Unavailable +[phone] [...] Unavailable +[phone] SUNG, CALHOUN DO Unavailable +[phone] Justina MOCK ROUTE DELIVERY CLERK Unavailable Unavailable EMILI L VON ROUTE DELIVERY CLERK Unavailable Unavailable EMILI L VON ROUTE DELIVERY CLERK Unavailable Unavailable EMILI L VON ROUTE DELIVERY CLERK Unavailable Unavailable EMILI L VON ROUTE DELIVERY CLERK Unavailable Unavailable EMILI L VON ROUTE DELIVERY CLERK Unavailable Unavailable AMIDON, Radha DAVISTRIPP DO Unavailable Unavailable AMIDON, Radha DAVISTRIPP DO Unavailable Unavailable AMIDON, Radha DAVISTRIPP DO Unavailable Unavailable AMIDON, Radha DAVISTRIPP DO Unavailable Unavailable AMIDON, Radha DAVISTRIPP DO Unavailable Unavailable AMIDON, Radha DAVISTRIPP DO Unavailable Unavailable AMIDON, Radha DAVISTRIPP DO Unavailable Unavailable AMIDON, Radha DAVISTRIPP DO Unavailable Unavailable AMIDON, Radha DAVISTRIPP DO Unavailable Unavailable AMIDON, Radha DAVISTRIPP DO Unavailable Unavailable AMIDON, D TRIPP DO Unavailable Unavailable AMIDON, Radha DAVISTRIPP DO Unavailable Unavailable AMIDON, D TRIPP DO [...] Unavailable AMIDON, D TRIPP DO Unavailable Unavailable Ian, A Elaine VP [employer] Unavailable Unavailable [place], A Elaine [employer] Unavailable Unavailable [place], A Elaine [employer] Unavailable Unavailable [place], A Elaine VP [employer] Unavailable Unavailable [place], A Elaine [employer] Unavailable Unavailable [place], A Elaine [employer] Unavailable Unavailable [place], A Elaine [employer] Unavailable Unavailable [place], A Elaine VP [employer] Unavailable Unavailable [place], A Elaine VP [employer] Unavailable Unavailable [place], A Elaine [employer] Unavailable Unavailable [place], A Elaine VP [employer] Unavailable Unavailable [place], A Elaine VP [employer] Unavailable Unavailable [place], A Elaine VP [employer] Unavailable Unavailable [place], A Elaine VP [employer] Unavailable Unavailable Ian, A Elaine VP [employer] Unavailable Unavailable Ian, A Elaine VP [employer] Unavailable Unavailable Ian, A Elaine VP [employer] Unavailable Unavailable Ian, A Elaine VP [employer] Unavailable Unavailable Ian, A Elaine VP [employer] Unavailable Unavailable Ian, A Elaine VP [employer] Unavailable Unavailable Ian, A Elaine VP [employer] Unavailable Unavailable Ian, A Elaine VP [employer] Unavailable Unavailable Ian, A Elaine VP [employer] Unavailable Unavailable Ian, A Elaine VP [employer] Unavailable Unavailable Ian, A Elaine [employer] Unavailable Unavailable Ian, A Elaine [employer] Unavailable Unavailable Ian, A Elaine [employer] Unavailable Unavailable Ian, A Elaine [employer] Unavailable Unavailable Eron Zhong MD Unavailable Unavailable Eron Zhong MD Unavailable Unavailable Eron Zhong MD Unavailable Unavailable Eron Zhong MD Unavailable Unavailable Eron Zhong MD Unavailable Unavailable Eron Zhong MD Unavailable Unavailable Eron Zhong MD Unavailable Unavailable Eron Zhong MD Unavailable Unavailable Eron Zhong MD Unavailable Unavailable Mirtha Henry MD Unavailable Unavailable Mirtha Henry MD Unavailable Unavailable Mirtha Henry MD Unavailable Unavailable Mirtha Henry MD Unavailable Unavailable Mirtha Henry MD Unavailable Unavailable Mirtha Henry MD Unavailable Unavailable Mirtha Henry MD Unavailable Unavailable Mirtha Henry MD Unavailable Unavailable Mirtha Henry MD Unavailable Unavailable Mirtha Henry MD Unavailable Unavailable Mirtha Henry MD Unavailable Unavailable Mirtha Henry MD Unavailable Unavailable Mirtha Henry MD Unavailable Unavailable Mirtha Henry MD Unavailable Unavailable Mirtha Henry MD Unavailable Unavailable Mirtha Henry MD Unavailable Unavailable Mirtha Henry MD Unavailable Unavailable Mirtha Henry MD Unavailable Unavailable Mirtha Henry MD Unavailable Unavailable Gil Kiser MD Unavailable [...] Unavailable Unavailable Tan Pulido MD Unavailable Unavailable Rogall, Tan MD Unavailable Unavailable RogallPernellw MD Unavailable Unavailable RogallTan MD Unavailable Unavailable RogallTan MD Unavailable Unavailable Rogall, Tan MD Unavailable Unavailable Rogall, Tan MD Unavailable Unavailable Rogall, Tan MD Unavailable Unavailable Rogall, Tan MD Unavailable Unavailable Rogall, Tan MD Unavailable Unavailable Rogall, Tan MD Unavailable Unavailable Rogall, Tan MD Unavailable Unavailable Rogall, Tan MD Unavailable Unavailable Rogall, Tan MD Unavailable Unavailable Rogall, Tan MD Unavailable Unavailable Kalani Agrawal Unavailable [phone] Kalani Agrawal Unavailable [phone] Elaine Sosa [employer] Unavailable Unavailable Re-disclosure Warning The records that [...] is protected by Article 27-F of the [facility] Public Health law. If you continue you may have access to information: Regarding HIV / AIDS; Provided by facilities licensed or operated by the [facility] Office of Mental Health; or Provided by the [facility] Office for People With Developmental Disabilities. If such information is present, then the following [facility] mandated warning applies: This information has [...] law may result in a fine or mcfp sentence or both. A general authorization for the release of medical or other information is NOT sufficient authorization for further disc losure. Allergies and Adverse Reactions Type Description Substance Reaction Status Data Source(s ) Propensity to adverse reactions to substance bupropion hcl Bupropion Hydrochloride 75 MG Oral Tablet difficulty breathing hives Active [facility] ([facility]) Propensity to adverse reactions to substance cephalexin Cephalexin 250 MG Oral Capsule difficulty breathing hives Active [facility] ([facility]) Propensity to adverse reactions to substance Lunesta (eszopi clone) Eszopiclone 1 MG Oral Tablet [Lunesta] difficulty breathing hives Active [facility] ([facility]) Propensity to adverse reactions to substance Sulfa (Lind lfonamide Antibiotics) Group Sulfa (Sulfonamide Antibiotics) Group difficulty breathing hives Active [facility] ([facility]) Propensity to adverse reactions to substance lisinopril Lisinopril 2.5 MG Oral Tablet difficulty breathing hives Active [facility] ([facility]) Propensity to adverse reactions to substance amoxicillin Amoxicillin 250 MG Oral Capsule rash Active [facility] ([facility]) Propensity to adverse reactions to substance Imitrex (sumatr iptan succinate) 0.5 ML Sumatriptan 12 MG/ML Injection [Imitrex] rash Active [facility] ([facility]) Propensity to adverse reactions to substance levofloxacin Levofloxacin 5 MG/ML Ophthalmic Solution rash Active [facility] ([facility]) Propensity to adverse reactions to substance omeprazole Omeprazole 10 MG Delayed Release Oral Capsule rash Active [facility] ([facility]) Propensity to adverse reactions to substance oxcarbazepine oxcarbazepine 300 MG Oral Tablet Active [facility] ([facility]) Propensity to adverse reactions to substance Abilify (aripip razole) aripiprazole 10 MG Oral Tablet [Abilify] Active [facility] ( [facility]) SYSTEMIC NO ALLERGIES ON FILE NO ALLERGIES ON FILE [facility] Drug allergy ESCITALOPRAM OXALATE ESCITALOPRAM OXALATE [facility] oranges oranges [facility] Drug allergy eszopiclone eszopiclone [facility] Drug allergy levofloxacin Levofloxacin [facility] Drug allergy metoclopramide metoclopramide [facility] Drug allergy bupropion bupropion [facility] Drug allergy azithromycin Azithromycin [facility] Drug allergy omeprazole omeprazole [facility] Drug allergy erythromycin base erythromycin base [facility] Drug allergy cephalexin cephalexin [facility] Drug allergy lisinopril Lisinopril [facility] Drug allergy Latex, Natural Rubber Latex, Natural Rubber [facility] Drug [facility] Fish Containing Products Fish Containing Products [facility] Drug allergy Sulfa (Sulfonamide Antibiotics) Sulfa (Sulfonamide Ant ibiotics) [facility] Drug allergy NSAIDS (Non-Steroidal Anti-Inflamma NSAI DS (Non-Steroidal Anti-Inflamma [facility] Miscellaneous allergy Latex Latex [facility] ([facility]) Drug allergy Sulfa Antibiotics Sulfa Antibiotics [facility] ([facility]) Drug allergy Lunesta Lunesta [facility] ([facility]) Drug allergy Omeprazole Omeprazole [facility] ([facility] Drug allergy Metoclopramide Metoclopramide [facility] ([facility]) Drug allergy Lisinopril Lisinopril [facility] ([facility]) Drug allergy Levofloxacin Levofloxacin [facility] ([facility]) Drug allergy Erythromycin Erythromycin [facility] ([facility]) Drug allergy Cephalexin Cephalexin [facility] ([facility]) Drug allergy Bupropion Bupropion [facility] ([facility]) Drug allergy Azithromycin Azithromycin [facility] ([facility]) Family History Family Member Name Family Member Gender Family Member Status Date o f Status Description Data Source(s) Unknown Condition [facility] Unknown Condition [facility] Unknown Condition [facility] Unknown Condition [facility] Unknown Condition [facility] Encounters Encounter Providers Location Date Indications Data Source(s ) Psychiatric Diagnostic Evaluation (Non-Medical) Attender: Manny Eddy [facility] 01/02/2021 11:00:00 AM EST - 01/02/2021 11:00:00 AM EST [facility] ([facility]) Attender: Zoe Eddy 01/02/2021 12:00:00 AM EST [facility] ([facility]) Outpatient Attender: Yen Soto NP [id number] 01/01/2021 12:0 0:00 AM EST Other organ or system involvement in systemic lupus erythematosus [facility] Other organ or system involvement in sys temic lupus erythematosus Outpatient Attender: Yen Soto NP 12/31/2020 12:00:00 A M EST [facility] Outpatient Attender: Yen Soto ROUTE DELIVERY CLERK 12/26/2020 12:0 0:00 AM EST Other organ or system involvement in systemic lupus erythematosus [facility] Other organ or system involvement in sys temic lupus erythematosus Extended Individual Psychotherapy - 45 min Attender: Lu Eddy [facility] 12/21/2020 10:45:00 AM EST - 12/21/2020 10:45:00 AM EST [facility] ([facility]) Attender: Zoe Eddy 12/21/2020 12:00:00 AM EST [facility] ([facility]) Demarcus Monsivais MD: [id number] [place] [address], Ph. Attender: Demarcus Monsivais MD [place] - [facility] - Main Office 12/18/2020 12:00:00 AM EST [facility] ([facility]) Kalani Agrawal MD: [address] [place] [address], Ph. Attender: Kalani Agrawal [facility] Medical 12/17/2020 12:00:00 AM EST [facility] ([facility]) Outpatient 12/06/2020 12:00:00 AM [facility] Elaine Sosa [facility]: [address] [place] [address], Ph. Attender: Elaine Sosa [facility] Medical 12/04/2020 12:00:00 AM EST [facility] ([facility]) JOHN Allred: [address], [place] [address], Ph. Attender: Elaine Sosa [facility] Medical 12/04/2020 12:00:00 AM EST [facility] ([facility]) Emergency Attender: VICKIE MELLO MDAt tender: JOVITA GUTIERREZ MDReferrer: JOVITA GUTIERREZ MD [id number] 12/03/2020 02:23:00 PM EST - 12/03/2020 07:58:00 PM EST Migraine, unspecified, not intractable, without status migrainosus [facility] Migraine, unspecified, not intractable, without status migrainosus Patient discharged. Emergency Attender: JOVITA GUTIERREZ MDReferrer: MARISA GUTIERREZ MD 12/03/2020 02:22:40 PM EST [facility]: [address], [place] [address], Ph. Attender: Elaine Sosa [facility] 11/30/2020 12:00:00 AM EST [facility] ([facility]) [facility] [address], [place] [address], Ph. Attender: Elaine Sosa [facility] Medical 11/30/2020 12:00:00 AM EST [facility] ([facility]) [facility]: [address], [place] [address], Ph. Attender: Elaine Sosa [facility] Medical 11/30/2020 12:00:00 AM EST [facility] ([facility]) SPECIMEN Attender: TRIPP Burnett: TRIPP MILES DO [id number]-[id number] 11/21/2020 05:06:00 PM EST - 11/21/2020 11:59:00 PM EST [facility] Patient discharged. Emergency Attender: VIDAL Boswell rojelio: NONE NONE MDAdmitter: VIDAL MELENDEZ MD OP-EMERGENCY DEPARTMENT 11/16/2020 07:37:00 PM EST - 11/17/2020 01:16:00 AM EST [facility] Patient discharged. SPECIMEN Attender: TRIPP Mauroerrer: TRIPP MILES DO [id number]-[id number] 11/14/2020 06:11:00 PM EST - 11/14/2020 11:59:00 PM EST [facility] Patient discharged. SPECIMEN Attender: TRIPP NGUYENeferrer: TRIPP MLIES DO [id number]-[id number] 11/07/2020 05:16:00 AM EST - 11/07/2020 11:59:00 PM EST [facility] Patient discharged. SPECIMEN Attender: VON MOOREeferrer: VON ROCA NER ROUTE DELIVERY CLERK 2E-EEH 10/26/2020 10:53:00 AM EST - 10/26/2020 11:59:00 PM [facility] Patient discharged. SPECIMEN Attender: TRIPP Mauroerrer: TRIPP MILES 2E-HL 10/24/2020 05:17:00 PM EST - 10/24/2020 11:59:00 PM EST [facility] Patient discharged. Outpatient Attender: Bunny Fernandez MD 11/2019 08:25:00 AM EST - 11/15/2020 11:59:00 PM EST [facility] covid Patient discharged. Outpatient Attender: Bunny Fernandez MD 10/09/2020 11:42:0 0 AM EST covid [facility] covid Outpatient Attender: Bunny Fernandez MD 10/05/2020 12:00:0 0 AM EST covid [facility] covid Outpatient Attender: Bunny Fernandez MD 09/28/2020 12:00:0 0 AM EST COVID [facility] COVID Outpatient Attender: Bunny Fernandez MD 09/21/2020 02:36:0 0 PM EST covid [facility] covid Outpatient Attender: Bunny Fernandez MD 09/14/2020 12:00:0 0 AM EDT covil [facility] covid Outpatient Attender: Bunny Fernandez MD 09/10/2020 11:25:0 0 AM EDT covid [facility] covid Outpatient Attender: Bunny Fernandez MD 07:00:00 AM EDT - 08/15/2020 11:59:00 PM EDT [facility]. Recurring Patient Referrer: Yen Soto NP 08/02/2020 08: 52:44 AM EDT [facility] Recurring Patient Referrer: Yen Soto NP 08/02/2020 08: 52:18 AM EDT [facility] Outpatient Attender: Yenwale Soto NP [id number] 07/26/2020 12:0 0:00 AM EDT Other organ or system involvement in systemic lupus erythematosus [facility] Other organ or system involvement in sys temic lupus erythematosus Outpatient Attender: Eron Zhong MDReferrer: Morningstr Res. CC COVID 19 null 07/17/2020 03:21:00 PM EDT resident covid screen /mihir [facility] resident covid screen /mihir Emergency Attender: Vickie Arnold 0 07:50:00 PM EDT - 06/21/2020 12:34:00 AM EDT All Over Body Pain [facility] All [facility] Patient discharged. Outpatient Attender: Bunny Fernandez MD 01/2020 12:00:00 AM EDT - 2020 11:59:00 PM EDT [facility] Patient discharged. Outpatient Attender: Bunny Fernandez MD 07:35:00 AM EDT - 06/15/2020 11:59:00 PM EDT [facility] Patient discharged. Inpatient Attender: Bunny Fernandez MD 04:00:00 PM EDT - 10/17/2020 12:00:00 PM EST [facility] ([facility]) Patient discharged. Outpatient Attender: Justin Bone SR 06/07/2020 11:10:00 P M EDT [facility] Attender: Brendan Meneses mitter: Brendan Kiser MDConsultant: Brendan Kiser MD 06/07/2020 09:10:00 PM EDT Depression, Suicidal Ideation [facility] Depression, Suicidal Ideation Outpatient Attender: Brendan Meneses mitter: Brendan Kiser MDConsultant: Brendan Kiser MD 06/07/2020 09:10:00 PM EDT Depression, Suicidal Ideation [facility] Depression, Suicidal Ideation Outpatient Attender: Brendan Meneses mitter: Brendan Kiser MDConsultant: Brendan Kiser MD 06/07/2020 09:10:00 PM EDT Depression, Suicidal Ideation [facility] Depression, Suicidal Ideation Inpatient Attender: Brendan Flores tender: Vickie ArnoldAdmitter: Brendan Kiser MD 06/07/2020 09:10:00 PM EDT - 06/12/2020 03:20:00 PM EDT Depression, Suicidal Ideation [facility] Depression, Suicidal Ideation Patient discharged. Outpatient Attender: Brendan Meneses mitter: Brendan Kiser MDConsultant: Brendan Kiser MD 06/07/2020 09:10:00 PM EDT Depression, Suicidal Ideation [facility] Depression, Suicidal Ideation Outpatient Attender: Jose ShuklaAdmitter : Brendan Kiser MDConsultant: Brendan Kiser MD 06/07/2020 09:10:00 PM EDT Depression, Suicidal Ideation [facility] Depression, Suicidal Ideation Outpatient Attender: Jose ShuklaAdmitter : Brendan Kiser MDConsultant: Brendan Kiser MD 06/07/2020 09:10:00 PM EDT Depression, Suicidal Ideation [facility] Depression, Suicidal Ideation Outpatient Attender: RADHA JIN 05/23/2020 04:33:00 P M EDT [facility] Emergency Attender: Vickie Arnold 0 02:21:00 AM EDT - 05/09/2020 08:45:00 AM EDT Pain Managment [facility] Pain Managment Patient discharged. Outpatient Attender: Key Scott MD 04/16/2020 11:00:00 PM EDT National Service Officer [facility] National Service Officer Outpatient Attender: Key Zepeda/ Derrell ornelas 04/16/2020 01:45:00 PM EDT [facility] ([facility]) Outpatient Attender: Elaine JIN 04/11/2020 11:0 4:03 AM EDT [facility] Outpatient Attender: Bunny Fernandez MD 07:40:00 AM EDT - 04/15/2020 11:59:00 PM EDT [facility] Patient discharged. Outpatient Attender: Elaine JIN 04/03/2020 09:0 1:01 AM EDT [facility] Inpatient Attender: Bunny Fernandez MD 03:10:00 PM EDT - 06/07/2020 08:00:00 PM EDT [facility] ([facility]) Patient discharged. Outpatient Attender: Tan Meneses mitter: Tan Pulido MDConsultant: Tan Pulido MD 03/28/2020 03:07:00 PM EDT Intractable Headache , R/O COVID [facility] Intractable Headache, R/O COVID Inpatient Attender: Samina Avilez tender: Sandee Mitchel MDAttender: Tan Pulido MDAttender: Mirtha Henry MDAdmitter: Tan Pulido MD 03/28/2020 02:08:00 PM EDT - 04/02/2020 02:55:00 PM EDT Intractable Headache, R/O COVID [facility] Intractable Headache, R/O COVID Patient discharged. Outpatient Attender: Sandee Meneses mitter: Tan Pulido MDConsultant: Samina Dixon NP 03/28/2020 02:08:00 PM EDT Intractable Headache , R/O COVID [facility] Intractable Headache, R/O COVID Outpatient Attender: Samina Chaney mitter: Tan Pulido MDConsultant: Samina Dixon NP 03/28/2020 02:08:00 PM EDT Intractable Headache , R/O COVID [facility] Intractable Headache, R/O COVID Outpatient Attender: Samina Chaney mitter: Tan Pulido MDConsultant: Samina Dixon NP 03/28/2020 02:08:00 PM EDT Intractable Headache , R/O COVID [facility] Intractable Headache, R/O COVID Outpatient Attender: Samina Chaney mitter: Tan Pulido MDConsultant: Samina Dixon NP 03/28/2020 02:08:00 PM EDT Intractable Headache , R/O COVID [facility] Intractable Headache, R/O COVID Outpatient Attender: Bunny Fernandez MD 09/2020 12:00:00 AM EDT - 04/15/2020 11:59:00 PM EDT [facility] Patient discharged. [facility] [address] [address] 03/22/2020 12:00:00 AM EDT eCW1 ([facility]) Outpatient Attender: Bunny Fernandez MD 12:00:00 AM EST - 01/14/2020 11:59:00 PM EST lab [facility] lab Patient discharged. Outpatient Attender: RADHA GARCIA 12/13/2019 03:40:[address] [facility] Outpatient Attender: Bunny Fernandez MD 12:00:00 AM EST - 12/16/2019 11:59:00 PM [facility] Patient discharged. Outpatient Attender: RADHA GARCIA 11/14/2019 09:01:[address] [facility] Outpatient Attender: Bunny Fernandez MD 08:40:00 AM EST - 11/15/2019 11:59:00 PM EST lab [facility] lab Patient discharged. Outpatient Attender: RADHA GARCIA 11/04/2019 08:03:[address] [facility] Inpatient Attender: Bunny Fernandez MD 03:10:00 PM EST - 03/28/2020 01:51:00 PM EDT [facility] ([facility]) Patient discharged. Inpatient Attender: LJ RODRIGUEZ DOAttender : LJ RODRIGUEZ DOAttender: SHARI RAMOS MDAttender: EMILY PATRICK MDAttender: EMILY PATRICK MDAdmitter: EMILY PATRICK MD ER-ICU 09/08/2019 11:21:00 PM EDT - 09/23/2019 12:30:00 PM [facility] Patient discharged. Outpatient Attender: CLAYTON PARSONS MD [facility] 12/03/2016 12:52:0 0 PM [facility]. Functional Status Immunizations Vaccine Date Status Description Data Source(s) COVID-19 vaccine, vector-nr, rS-ChAdOx1, PF, 0.5 mL 11/23/19 12:00:00 AM EST completed 11/23/2020 [facility]) COVID-19 vaccine, vector-nr, rS-ChAdOx1, PF, 0.5 mL 11/23/19 21 12:00:00 AM EST completed 11/23/2020 [place] ([facility]) COVID-19 vaccine, vector-nr, rS-ChAdOx1, PF, 0.5 mL 11/23/19 21 12:00:00 AM EST completed 11/23/2020 [place] ([facility]) Medications Medication Brand Name Start Date Product Form Dose Route Admi nistrative Instructions Pharmacy Instructions Status Indications Reaction Description Data Source(s) Hydroxychloroquine Sulfate 200 MG Oral T ablet Hydroxychloroquine Sulfate 200 MG Oral Tablet (PLAQUENIL) Hydroxychloroquine Sulfate 200 MG Oral T ablet (PLAQUENIL) 01/01/2021 12:00:00 AM EST 200 mg Oral a ctive Long-term use of PlaquenilOther systemic lupus erythematosus with other organ involvementSjogren's syndrome with keratoconjunctivitis sicca Take 1 tablet by mouth Two Times Daily [facility] Long-term use of Plaquenil Other systemic lupus erythematosus with other organ involvement Sjogren's syndrome with keratoconjunctiv itis sicca tizanidine 4 MG Oral Capsule tiZANidine HCl 4 MG Oral Capsule (ZANAFLEX) tiZANidine HCl 4 MG Oral Capsule (ZANAFLEX) 01/01/2021 12:00:00 AM EST 4 mg Oral active Muscle spasm Take 1 capsu le by mouth Three times daily as needed for Muscle spasms [facility] Muscle spasm Zolpidem tartrate 10 MG Oral Tablet Zolp idem Tartrate 10 MG Oral Tablet (AMBIEN) Zolpidem Tartrate 10 MG Oral Tablet (AMBIEN) 01/01/2021 12:00:00 AM EST 10 mg Oral active Insomnia, unspecified type Take 1 tablet by mouth nightly as needed for Sleep for up to 7 days, Max Daily Dose: 10 mg [facility] Insomnia, unspecified type duloxetine 60 MG Delayed Release Oral Ca psule DULoxetine HCl 60 MG Oral Capsule Delayed Release Particles (CYMBALTA) DULoxetine HCl 60 MG Oral Capsule Delaye d Release Particles (CYMBALTA) 01/01/2021 12:00:00 AM EST 120 mg Oral active Fibromyalgia Take 2 capsules by mouth nightly [facility] Fibromyalgia Cyclobenzaprine hydrochloride 5 MG Oral Tablet Cyclobenzaprine HCl 5 MG Oral Tablet (FLEXERIL) Cyclobenzaprine HCl 5 MG Oral Tablet (FLEXERIL) 2020 12:00:00 AM EST 5 mg Oral aborted Fibromyalgia Take 1 tablet by mouth Three times daily as needed for Muscle spasms for up to 10 days [facility] Fibromyalgia Folic Acid 1 MG Oral Tablet Folic Acid 1 MG Oral Table t (FOLVITE) Folic Acid 1 MG Oral Tablet (FOLVITE) 01/01/2021 12:00:00 AM EST 1 mg Oral active High risk medication use Take 1 tablet by mouth daily [facility] High risk medication use Pilocarpine Hydrochloride 5 MG Oral Tabl et Pilocarpine HCl 5 MG Oral Tablet (SALAGEN) Pilocarpine HCl 5 MG Oral Tablet (SALAGEN) 01/01/2021 12:00: 00 AM EST 5 mg Oral active High risk medication use Take 1 tablet by mouth Three times daily [facility] High risk medication use gabapentin 400 MG Oral Capsule Gabapentin 400 MG Oral Capsule (NEURONTIN) Gabapentin 400 MG Oral Capsule (NEURONTIN) 01/01/2021 12:00:00 AM EST 400 mg Oral active Fibromyalgia Take 1 capsule by mouth Three times daily [facility] Fibromyalgia Methotrexate 2.5 MG Oral Tablet Methotrexate 2.5 MG Oral Tab let 01/01/2021 12:00:00 AM EST 7.5 mg Oral active Othe r systemic lupus erythematosus with other organ involvementSjogren's syndrome with keratoconjunctivitis sicca Take 3 tablets by mouth every 7 (seven) days [facility] Other systemic lupus erythematosus with other organ involvement Sjogren's syndrome with keratoconjunctiv itis sicca Hydroxychloroquine Sulfate 200 MG Oral T ablet hydroxychloroquine 200 mg tablet TAKE ONE TABLET BY MOUTH TWICE DAILY hydroxychloroquine 200 mg tablet TAKE ON E TABLET BY MOUTH TWICE DAILY 12/18/2020 12:00:00 AM EST completed hydroxychloroquine sulfate 200 MG Oral Tablet [facility] ([facility]) iohexol (OMNIPAQUE) 350 MG/ML contrast injection 75 mL [id number] 12/03/2020 03:45:00 PM EST 75 mL Given by IV completed 75 mL, Given by IV, 1 TIME IMAGING, 12/03/20 at 1545, For 1 dose [facility] Medication administered onsite magnesium sulfate in dextrose 5 % infusion (premix) 1 g 0409 -6727-23 12/03/2020 02:45:00 PM EST 1 g Intravenous completed 1 g, Intravenous, Administer over 15 Minutes, Once, Thu12/03/20 at 1445, For 1 dose [facility] Medication administered onsite 1 ML Ketorolac Tromethamine 30 MG/ML [place] ketorolac (TORADOL) 30 MG/ML injection 15 mg ketorolac (TORADOL) 30 MG/ML injection 15 mg 02:45:00 PM EST 15 mg Intravenous completed 15 mg, Intravenous, Once, Thu12/03/20 at 1445, For 1 dose [facility] Medication administered onsite lactated ringers bolus 1,000 mL [id number] 12/03/2020 02:45:00 PM EST 1000 mL Intravenous completed 1,000 mL , Intravenous, Once, Thu12/03/20 at 1445, For 1 dose [facility] Medication administered onsite diphenhydrAMINE (BENADRYL) injection 50 mg [id number] 12/03/2020 02:45:00 PM EST 50 mg Intravenous completed 50 mg, Intravenous, Once, Thu12/03/20 at 1445, For 1 dose [facility] Medication administered onsite Prochlorperazine 5 MG/ML Injectable Solu tion prochlorperazine (COMPAZINE) injection 10 mg prochlorperazine (COMPAZINE) injection 10 mg 02:30:43 PM EST 10 mg Intravenous active 10 m g, Intravenous, Every 6 hours PRN, Nausea, Vomiting, Starting Thu12/03/20 at 1430, For 30 days
For IV use: Prepare in 50 mL NS and infuse over 15 minutes.
[facility] Medication administered onsite Acetaminophen 325 MG Oral Tablet Acetaminophen 325 MG Oral T ablet 12/03/2020 12:00:00 AM EST 650 mg Oral active Take 2 tablets by mouth every 6 (six) hours as needed for Pain (acute) for up to 10 days [facility] Hydroxychloroquine Sulfate 200 MG Oral T ablet Hydroxychloroquine Sulfate 200 MG Oral Tablet (PLAQUENIL) Hydroxychloroquine Sulfate 200 MG Oral T ablet (PLAQUENIL) 12/02/2020 12:00:00 AM EST 200 mg Oral a borted Long-term use of PlaquenilOther systemic lupus erythematosus with other organ involvementSjogren's syndrome with keratoconjunctivitis sicca Take 1 tablet by mouth Two Times Daily [facility] Long-term use of Plaquenil Other systemic lupus erythematosus with other organ involvement Sjogren's syndrome with keratoconjunctiv itis sicca Zolpidem tartrate 6.25 MG Extended Relea se Oral Tablet Zolpidem Tartrate ER 6.25 MG Oral Tablet Extended Release (Ambien CR) Zolpidem Tartrate ER 6.25 MG Oral Tablet Extended Release (Ambien CR) 12/02/2020 12:00:00 AM EST 6.25 m g Oral active Primary insomnia Take 1 tablet b y mouth nightly as needed for Sleep for up to 7 days, Max Daily Dose: 6.25 mg [facility] Primary insomnia Hydroxychloroquine Sulfate 200 MG Oral T ablet Hydroxychloroquine Sulfate 200 MG Oral Tablet (PLAQUENIL) Hydroxychloroquine Sulfate 200 MG Oral T ablet (PLAQUENIL) 07/26/2020 12:00:00 AM EDT 200 mg Oral a ctive Long-term use of PlaquenilOther systemic lupus erythematosus with other organ involvementSjogren's syndrome with keratoconjunctivitis sicca Take 1 tablet by mouth Two Times Daily [facility] Long-term use of Plaquenil Other systemic lupus erythematosus with other organ involvement Sjogren's syndrome with keratoconjunctiv itis sicca Naproxen 500 MG Oral Tablet Naproxen 500 MG Oral Table t (NAPROSYN) Naproxen 500 MG Oral Tablet (NAPROSYN) 07/26/2020 12:00:00 AM EDT 500 mg Oral active Polyarthralgia Take 1 tablet by mouth Two times daily w ith meals [facility] Polyarthralgia Pilocarpine Hydrochloride 5 MG Oral Tabl et Pilocarpine HCl 5 MG Oral Tablet (SALAGEN) Pilocarpine HCl 5 MG Oral Tablet (SALAGEN) 07/26/2020 12:00: 00 AM EDT 5 mg Oral aborted High risk medication use Take 1 tablet by mouth Three times daily [facility] High risk medication use Folic Acid 1 MG Oral Tablet Folic Acid 1 MG Oral Table t (FOLVITE) Folic Acid 1 MG Oral Tablet (FOLVITE) 07/26/2020 12:00:00 AM EDT aborted High risk medication use TAKE TWO TABLETS BY MOUTH @8AM [facility] High risk medication use Methotrexate 2.5 MG Oral Tablet Methotrexate 2.5 MG Oral Tab let 07/26/2020 12:00:00 AM EDT 7.5 mg Oral active Take 3 tablets by mouth every 7 (seven) days [facility] gabapentin 400 MG Oral Capsule Gabapentin 400 MG Oral Capsule (NEURONTIN) Gabapentin 400 MG Oral Capsule (NEURONTIN) 07/26/2020 12:00:00 AM EDT 400 mg Oral aborted Take 1 capsule by [facility] Three times daily [facility] Doxycycline Monohydrate 100 MG Oral Tablet Doxycycline Monoh ydrate 04/29/2020 12:00:00 AM EDT ORAL active M [facility] ([facility]) Saccharomyces boulardii 250 MG Oral Capsule Saccharomy bjorn Boulardii Saccharomyces Boulardii 04/02/2020 12:17:03 PM EDT CAPSULE 250 MG ORAL active [facility] Saccharomyces boulardii 250 MG Oral Capsule Saccharomy bjorn Boulardii Saccharomyces Boulardii 04/02/2020 12:17:03 PM EDT CAPSULE 250 MG ORAL active [facility] Amoxicillin 875 MG / Clavulanate 125 MG Oral Tablet Am oxicillin-Pot Clavulanate Amoxicillin-Pot Clavulanate 04/02/2020 12:17:03 PM EDT TABLET 1 TAB ORAL active [facility] Acetaminophen 325 MG / Hydrocodone Enrike trate 5 MG Oral Tablet Hydrocodone-Acetaminophen Hydrocodone-Acetaminophen 04/02/2020 12:17:03 PM EDT TABLET 1 TAB ORAL active [facility] Amoxicillin 875 MG / Clavulanate 125 MG Oral Tablet Am oxicillin-Pot Clavulanate Amoxicillin-Pot Clavulanate 04/02/2020 12:17:03 PM EDT TABLET 1 TAB ORAL active [facility] Amoxicillin 875 MG / Clavulanate 125 MG Oral Tablet Am oxicillin-Pot Clavulanate Amoxicillin-Pot Clavulanate 04/02/2020 12:17:03 PM EDT TABLET 1 TAB ORAL active [facility] Acetaminophen 325 MG / Hydrocodone Enrike trate 5 MG Oral Tablet Hydrocodone-Acetaminophen Hydrocodone-Acetaminophen 04/02/2020 12:17:03 PM EDT TABLET 1 TAB ORAL active [facility] Saccharomyces boulardii 250 MG Oral Capsule Saccharomy bjorn Boulardii Saccharomyces Boulardii 04/02/2020 12:17:03 PM EDT CAPSULE 250 MG ORAL active [facility] Acetaminophen 325 MG / Hydrocodone Enrike trate 5 MG Oral Tablet Hydrocodone-Acetaminophen Hydrocodone-Acetaminophen 04/02/2020 12:17:03 PM EDT TABLET 1 TAB ORAL active [facility] Saccharomyces boulardii 250 MG Oral Capsule Saccharomy bjorn Boulardii Saccharomyces Boulardii 04/02/2020 12:17:03 PM EDT CAPSULE 250 MG ORAL active [facility] Acetaminophen 325 MG / Hydrocodone Enrike trate 5 MG Oral Tablet Hydrocodone-Acetaminophen Hydrocodone-Acetaminophen 04/02/2020 12:17:03 PM EDT TABLET 1 TAB ORAL active [facility] Amoxicillin 875 MG / Clavulanate 125 MG Oral Tablet Am oxicillin-Pot Clavulanate Amoxicillin-Pot Clavulanate 04/02/2020 12:17:03 PM EDT TABLET 1 TAB ORAL active [facility] pantoprazole 40 MG Delayed Release Oral Tablet [Proton ix] Pantoprazole Pantoprazole 03/28/2020 10:02:59 AM EDT UNASSIGNED 40 MG ORAL activ e [facility] ACTUAT Budesonide 0.16 MG/ACTUAT / f ormoterol fumarate 0.0045 MG/ACTUAT Metered Dose Inhaler Budesonide-Formoterol Budesonide-Formoterol 03/28/2020 10:02:59 AM EDT UNASSIGNED 2 PUFF INHALATION active [facility] Bisacodyl 10 MG Rectal Suppository Bisacodyl 03/28/2020 10 :02:59 AM EDT UNASSIGNED 10 MG RECTAL [facility] Sumatriptan 50 MG Oral Tablet [Imitrex] Sumatriptan Lind ccinate Sumatriptan Succinate 03/28/2020 10:02:59 AM EDT TABLET 0 Route active [facility] duloxetine 60 MG Delayed Release Oral Capsule Duloxetine Dul oxetine 03/28/2020 10:02:59 AM EDT UNASSIGNED 60 MG ORAL [facility] ACTUAT Budesonide 0.16 MG/ACTUAT / f ormoterol fumarate 0.0045 MG/ACTUAT Metered Dose Inhaler Budesonide-Formoterol Budesonide-Formoterol 03/28/2020 10:02:59 AM EDT UNASSIGNED 2 PUFF INHALATION active [facility] buspirone hydrochloride 10 MG Oral Tablet Buspirone Buspiron e 03/28/2020 10:02:59 AM EDT TABLET 10 MG ORAL active [facility] Calcium Carbonate 1250 MG / Cholecalcife rol 0.01 MG Oral Tablet Calcium Carbonate-Vitamin D3 Calcium Carbonate-Vitamin D3 03/28/2020 10:02:59 AM EDT TABLET 1 TAB ORAL active [facility] Sumatriptan 50 MG Oral Tablet [Imitrex] Sumatriptan Lind ccinate Sumatriptan Succinate 03/28/2020 10:02:59 AM EDT TABLET 0 Route active [facility] Levetiracetam 500 MG Oral Tablet [Keppra] Levetiracetam 03/28/2020 10:02:59 AM EDT TABLET 500 MG ORAL [facility] Esc[facility] 5 MG Oral Tablet Escitalopram Oxalate Escitalop [place] Oxalate 03/28/2020 10:02:59 AM EDT TABLET 5 MG ORAL active [facility] Docusate Sodium 100 MG Oral Capsule Docusate Sodium 03/28/2020 1 0:02:59 AM EDT CAPSULE 100 MG ORAL [facility] Docusate Sodium 100 MG Oral Capsule Docusate Sodium 03/28/2020 1 0:02:59 AM EDT CAPSULE 100 MG ORAL active [facility] Sumatriptan 50 MG Oral Tablet [Imitrex] Sumatriptan Lind ccinate Sumatriptan Succinate 03/28/2020 10:02:59 AM EDT TABLET 0 Route active [facility] Bisacodyl 10 MG Rectal Suppository Bisacodyl 03/28/2020 10 :02:59 AM EDT UNASSIGNED 10 MG RE[facility]AL [facility] Trazodone Hydrochloride 50 MG Oral Tablet Trazodone 2019 10:02:59 AM EDT TABLET 50 MG ORAL active [facility] duloxetine 60 MG Delayed Release Oral Capsule Duloxetine Dul oxetine 03/28/2020 10:02:59 AM EDT UNASSIGNED 60 MG ORAL active [facility] Trazodone Hydrochloride 50 MG Oral Tablet Trazodone 2019 10:02:59 AM EDT TABLET 50 MG ORAL active [facility] tiotropium 0.018 MG/ACTUAT Inhalant Powder Tiotropium [place] Tiotropium [place] 03/28/2020 10:02:59 AM EDT UNASSIGNED 1 CAP INHALATION active [facility] buspirone hydrochloride 10 MG Oral Tablet Buspirone Buspiron e 03/28/2020 10:02:59 AM EDT TABLET 10 MG ORAL active [employer] [facility] Hydroxychloroquine Sulfate 200 MG Oral Tablet Hydroxychloroq uine 03/28/2020 10:02:59 AM EDT TABLET 200 MG ORAL active [facility] Sumatriptan 50 MG Oral Tablet [Imitrex] Sumatriptan Lind ccinate Sumatriptan Succinate 03/28/2020 10:02:59 AM EDT TABLET 0 Route [facility] D[facility] S[facility] 100 MG Oral Capsule Docusate Sodium 03/28/2020 1 0:02:59 AM EDT CAPSULE 100 MG ORAL active [facility] Metoprolol Tartrate 50 MG Oral Tablet Metoprolol Tartrate 10:02:59 AM EDT TABLET 50 MG ORAL active [facility] 120 ACTUAT Budesonide 0.16 MG/ACTUAT / f ormoterol fumarate 0.0045 MG/ACTUAT Metered Dose Inhaler Budesonide-Formoterol Budesonide-Formoterol 03/28/2020 10:02:59 AM EDT UNASSIGNED 2 PUFF INHALATION active [facility] pantoprazole 40 MG Delayed Release Oral Tablet [Proton ix] Pantoprazole Pantoprazole 03/28/2020 10:02:59 AM EDT UNASSIGNED 40 MG ORAL activ e [facility] Escitalopram 5 MG Oral Tablet Escitalopram Oxalate Escitalop [place] Oxalate 03/28/2020 10:02:59 AM EDT TABLET 5 MG ORAL active [facility] gabapentin 100 MG Oral Capsule [Neurontin] Gabapentin Gabape ntin 03/28/2020 10:02:59 AM EDT CAPSULE 200 MG ORAL [facility] dul[facility] 60 MG Delayed Release Oral Capsule Duloxetine Dul oxetine 03/28/2020 10:02:59 AM EDT UNASSIGNED 60 MG ORAL [facility] ACT[facility] Budesonide 0.16 MG/ACTUAT / f ormoterol fumarate 0.0045 MG/ACTUAT Metered Dose Inhaler Budesonide-Formoterol Budesonide-Formoterol 03/28/2020 10:02:59 AM EDT UNASSIGNED 2 PUFF INHALATION active [facility] pantoprazole 40 MG Delayed Release Oral Tablet [Proton ix] Pantoprazole Pantoprazole 03/28/2020 10:02:59 AM EDT UNASSIGNED 40 MG ORAL activ e [facility] tiotropium 0.018 MG/ACTUAT Inhalant Powder Tiotropium [place] Tiotropium [place] 03/28/2020 10:02:59 AM EDT UNASSIGNED 1 CAP INHALATION active [facility] Folic Acid 1 MG Oral Tablet Folic Acid 03/28/2020 10:02:59 AM EDT TAB LET 1 MG ORAL active [facility] [email or web address] Thiamine 100 MG Oral Tablet Thiamine Hcl (Vitamin B1) Thiami ne Hcl (Vitamin B1) 03/28/2020 10:02:59 AM EDT TABLET 100 MG ORAL active [facility] Methotrexate 7.5 MG Oral Tablet Methotrexate Sodium Methotre xate Sodium 03/28/2020 10:02:59 AM EDT TABLET 7.5 MG ORAL active [facility] Sorbitol 700 MG/ML Rectal Solution Sorbitol 03/28/2020 10:02:59 AM EDT SOLUTION 30 ML ORAL active [facility] buspirone hydrochloride 10 MG Oral Tablet Buspirone Buspiron e 03/28/2020 10:02:59 AM EDT TABLET 10 MG ORAL active [facility] Folic Acid 1 MG Oral Tablet Folic Acid 03/28/2020 10:02:59 AM EDT TAB LET 1 MG ORAL active [facility] pantoprazole 40 MG Delayed Release Oral Tablet [Proton ix] Pantoprazole Pantoprazole 03/28/2020 10:02:59 AM EDT UNASSIGNED 40 MG ORAL activ e [facility] gabapentin 100 MG Oral Capsule [Neurontin] Gabapentin Gabape ntin 03/28/2020 10:02:59 AM EDT CAPSULE 200 MG ORAL active [facility] Sorbitol 700 MG/ML Rectal Solution Sorbitol 03/28/2020 10:02:59 AM EDT SOLUTION 30 ML ORAL active [facility] Saadnuuvifga-Tjk-Izgr-Fa-Vit K 03/28/2020 10:02:59 AM EDT TABLET 1 TAB ORAL active [facility] gabapentin 100 MG Oral Capsule [Neurontin] Gabapentin Gabape ntin 03/28/2020 10:02:59 AM EDT CAPSULE 200 MG ORAL active [facility] Metoprolol Tartrate 50 MG Oral Tablet Metoprolol Tartrate 10:02:59 AM EDT TABLET 50 MG ORAL active [facility] Sorbitol 700 MG/ML Rectal Solution Sorbitol 03/28/2020 10:02:59 AM EDT SOLUTION 30 ML ORAL active [facility] sennosides, FPC 8.6 MG Oral Tablet Sennosides Sennosides 03/28/2020 10:02:59 AM EDT TABLET 17.2 MG ORAL active [facility] Methotrexate 7.5 MG Oral Tablet Methotrexate Sodium Methotre xate Sodium 03/28/2020 10:02:59 AM EDT TABLET 7.5 MG ORAL active [facility] pantoprazole 40 MG Delayed Release Oral Tablet [Proton ix] Pantoprazole Pantoprazole 03/28/2020 10:02:59 AM EDT UNASSIGNED 40 MG ORAL activ e [facility] Calcium Carbonate 1250 MG / Cholecalcife rol 0.01 MG Oral Tablet Calcium Carbonate-Vitamin D3 Calcium Carbonate-Vitamin D3 03/28/2020 10:02:59 AM EDT TABLET 1 TAB ORAL [facility] Bisacodyl 10 MG Rectal Suppository Bisacodyl 03/28/2020 10 :02:59 AM EDT UNASSIGNED 10 MG RECTAL [facility] Mtfobynmuggn-Dsp-Rwan-Fa-Vit K 03/28/2020 10:02:59 AM EDT TABLET 1 TAB ORAL active [facility] Methotrexate 7.5 MG Oral Tablet Methotrexate Sodium Methotre xate Sodium 03/28/2020 10:02:59 AM EDT TABLET 7.5 MG ORAL active [facility] gabapentin 100 MG Oral Capsule [Neurontin] Gabapentin Gabape ntin 03/28/2020 10:02:59 AM EDT CAPSULE 200 MG ORAL active [facility] Yessaymexioy-Mwl-Ejep-Fa-Vit K 03/28/2020 10:02:59 AM EDT TABLET 1 TAB ORAL active [facility] sennosides, FPC 8.6 MG Oral Tablet Sennosides Sennosides 03/28/2020 10:02:59 AM EDT TABLET 17.2 MG ORAL active [facility] Levetiracetam 500 MG Oral Tablet [Keppra] Levetiracetam 03/28/2020 10:02:59 AM EDT TABLET 500 MG ORAL active [facility] Hydroxychloroquine Sulfate 200 MG Oral Tablet Hydroxychloroq uine 03/28/2020 10:02:59 AM EDT TABLET 200 MG ORAL active [facility] Hydroxychloroquine Sulfate 200 MG Oral Tablet Hydroxychloroq uine 03/28/2020 10:02:59 AM EDT TABLET 200 MG ORAL active [facility] Docusate Sodium 100 MG Oral Capsule Docusate Sodium 03/28/2020 1 0:02:59 AM EDT CAPSULE 100 MG ORAL active [facility] Calcium Carbonate 1250 MG / Cholecalcife rol 0.01 MG Oral Tablet Calcium Carbonate-Vitamin D3 Calcium Carbonate-Vitamin D3 03/28/2020 10:02:59 AM EDT TABLET 1 TAB ORAL active [facility] Trazodone Hydrochloride 50 MG Oral Tablet Trazodone 2019 10:02:59 AM EDT TABLET 50 MG ORAL active [facility] duloxetine 60 MG Delayed Release Oral Capsule Duloxetine Dul oxetine 03/28/2020 10:02:59 AM EDT UNASSIGNED 60 MG ORAL active [facility] sennosides, FPC 8.6 MG Oral Tablet Sennosides Sennosides 03/28/2020 10:02:59 AM EDT TABLET 17.2 MG ORAL active [facility] Hydroxychloroquine Sulfate 200 MG Oral Tablet Hydroxychloroq uine 03/28/2020 10:02:59 AM EDT TABLET 200 MG ORAL active [facility] tiotropium 0.018 MG/ACTUAT Inhalant Powder Tiotropium [place] Tiotropium [place] 03/28/2020 10:02:59 AM EDT UNASSIGNED 1 CAP INHALATION [facility] buspirone hydrochloride 10 MG Oral Tablet Buspirone Buspiron e 03/28/2020 10:02:59 AM EDT TABLET 10 MG ORAL [facility] Escitalopram 5 MG Oral Tablet Escitalopram Oxalate Escitalop [place] Oxalate 03/28/2020 10:02:59 AM EDT TABLET 5 MG ORAL active [facility] Metoprolol Tartrate 50 MG Oral Tablet Metoprolol Tartrate 10:02:59 AM EDT TABLET 50 MG ORAL active [facility] Folic Acid 1 MG Oral Tablet Folic Acid 03/28/2020 10:02:59 AM EDT TAB LET 1 MG ORAL active [facility] Bisacodyl 10 MG Rectal Suppository Bisacodyl 03/28/2020 10 :02:59 AM EDT UNASSIGNED 10 MG RECTAL active [facility] Docusate Sodium 100 MG Oral Capsule Docusate Sodium 03/28/2020 1 0:02:59 AM EDT CAPSULE 100 MG ORAL active [facility] Folic Acid 1 MG Oral Tablet Folic Acid 03/28/2020 10:02:59 AM EDT TAB LET 1 MG ORAL active [facility] Levetiracetam 500 MG Oral Tablet [Keppra] Levetiracetam 03/28/2020 10:02:59 AM EDT TABLET 500 MG ORAL [facility] Bisacodyl 10 MG Rectal Suppository Bisacodyl 03/28/2020 10 :02:59 AM EDT UNASSIGNED 10 MG RECTAL active [facility] Sorbitol 700 MG/ML Rectal Solution Sorbitol 03/28/2020 10:02:59 AM EDT SOLUTION 30 ML ORAL active [facility] Sumatriptan 50 MG Oral Tablet [Imitrex] Sumatriptan Lind ccinate Sumatriptan Succinate 03/28/2020 10:02:59 AM EDT TABLET 0 Route active [facility] Calcium Carbonate 1250 MG / Cholecalcife rol 0.01 MG Oral Tablet Calcium Carbonate-Vitamin D3 Calcium Carbonate-Vitamin D3 03/28/2020 10:02:59 AM EDT TABLET 1 TAB ORAL active [facility] Lpgfupyhkbmp-Fow-Xrxg-Fa-Vit K 03/28/2020 10:02:59 AM EDT TABLET 1 TAB ORAL active [facility] sennosides, FPC 8.6 MG Oral Tablet Sennosides Sennosides 03/28/2020 10:02:59 AM EDT TABLET 17.2 MG ORAL [facility] dul[facility] 60 MG Delayed Release Oral Capsule Duloxetine Dul oxetine 03/28/2020 10:02:59 AM EDT UNASSIGNED 60 MG ORAL [facility] sennosides, FPC 8.6 MG Oral Tablet Sennosides Sennosides 03/28/2020 10:02:59 AM EDT TABLET 17.2 MG ORAL [facility] gabap[facility] 100 MG Oral Capsule [Neurontin] Gabapentin Gabape ntin 03/28/2020 10:02:59 AM EDT CAPSULE 200 MG ORAL [facility] Levetiracetam 500 MG Oral Tablet [Keppra] Levetiracetam 03/28/2020 10:02:59 AM EDT TABLET 500 MG [facility]AL [facility] T[facility] Hydrochloride 50 MG Oral Tablet Trazodone 2019 10:02:59 AM EDT TABLET 50 MG ORAL active [facility] tiotropium 0.018 MG/ACTUAT Inhalant Powder Tiotropium [place] Tiotropium [place] 03/28/2020 10:02:59 AM EDT UNASSIGNED 1 CAP INHALATION [facility] Calcium Carbonate 1250 MG / Cholecalcife rol 0.01 MG Oral Tablet Calcium Carbonate-Vitamin D3 Calcium Carbonate-Vitamin D3 03/28/2020 10:02:59 AM EDT TABLET 1 TAB ORAL active [facility] Trazodone Hydrochloride 50 MG Oral Tablet Trazodone 2019 10:02:59 AM EDT TABLET 50 MG ORAL active [facility] Thiamine 100 MG Oral Tablet Thiamine Hcl (Vitamin B1) Thiami ne Hcl (Vitamin B1) 03/28/2020 10:02:59 AM EDT TABLET 100 MG ORAL [facility] Sorbitol 700 MG/ML Rectal Solution Sorbitol 03/28/2020 10:02:59 AM EDT SOLUTION 30 ML ORAL [facility] Methotrexate 7.5 MG Oral Tablet Methotrexate Sodium Methotre xate Sodium 03/28/2020 10:02:59 AM EDT TABLET 7.5 MG ORAL active [facility] Metoprolol Tartrate 50 MG Oral Tablet Metoprolol Tartrate 10:02:59 AM EDT TABLET 50 MG ORAL [facility] t[facility] 0.018 MG/ACTUAT Inhalant Powder Tiotropium [place] Tiotropium [place] 03/28/2020 10:02:59 AM EDT UNASSIGNED 1 CAP INHALATION [facility] buspirone hydrochloride 10 MG Oral Tablet Buspirone Buspiron e 03/28/2020 10:02:59 AM EDT TABLET 10 MG ORAL active [facility] [employer] Thiamine 100 MG Oral Tablet Thiamine Hcl (Vitamin B1) Thiami ne Hcl (Vitamin B1) 03/28/2020 10:02:59 AM EDT TABLET 100 MG ORAL [facility] Thiamine 100 MG Oral Tablet Thiamine Hcl (Vitamin B1) Thiami ne Hcl (Vitamin B1) 03/28/2020 10:02:59 AM EDT TABLET 100 MG ORAL [facility] Escitalopram 5 MG Oral Tablet Escitalopram Oxalate Escitalop [place] Oxalate 03/28/2020 10:02:59 AM EDT TABLET 5 MG ORAL [facility] Folic Acid 1 MG Oral Tablet Folic Acid 03/28/2020 10:02:59 AM EDT TAB LET 1 MG ORAL active [facility] 120 ACTUAT Budesonide 0.16 MG/ACTUAT / f ormoterol fumarate 0.0045 MG/ACTUAT Metered Dose Inhaler Budesonide-Formoterol Budesonide-Formoterol 03/28/2020 10:02:59 AM EDT UNASSIGNED 2 PUFF INHALATION active [facility] Swgdcgyoqpxg-Uzn-Msop-Fa-Vit K 03/28/2020 10:02:59 AM EDT TABLET 1 TAB ORAL active [facility] Methotrexate 7.5 MG Oral Tablet Methotrexate Sodium Methotre xate Sodium 03/28/2020 10:02:59 AM EDT TABLET 7.5 MG ORAL active [facility] Escitalopram 5 MG Oral Tablet Escitalopram Oxalate Escitalop [place] Oxalate 03/28/2020 10:02:59 AM EDT TABLET 5 MG ORAL [facility] Levetiracetam 500 MG Oral Tablet [Keppra] Levetiracetam 03/28/2020 10:02:59 AM EDT TABLET 500 MG ORAL [facility] Hydroxychloroquine Sulfate 200 MG Oral Tablet Hydroxychloroq uine 03/28/2020 10:02:59 AM EDT TABLET 200 MG ORAL active [facility] [employer] Metoprolol Tartrate 50 MG Oral Tablet Metoprolol Tartrate 10:02:59 AM EDT TABLET 50 MG ORAL active [facility] Thiamine 100 MG Oral Tablet Thiamine Hcl (Vitamin B1) Thiami ne Hcl (Vitamin B1) 03/28/2020 10:02:59 AM EDT TABLET 100 MG ORAL active [facility] Baclofen 5 MG Oral Tablet Baclofen 03/28/2020 10:01:16 AM EDT TABLET 5 MG ORAL active [facility] Baclofen 5 MG Oral Tablet Baclofen 03/28/2020 10:01:16 AM EDT TABLET 5 MG ORAL [facility] Baclofen 5 MG Oral Tablet Baclofen 03/28/2020 10:01:16 AM EDT TABLET 5 MG ORAL active [facility] Baclofen 5 MG Oral Tablet Baclofen 03/28/2020 10:01:16 AM EDT TABLET 5 MG ORAL active [facility] Baclofen 5 MG Oral Tablet Baclofen 03/28/2020 10:01:16 AM EDT TABLET 5 MG ORAL active [facility] Albuterol Sulfate 03/28/2020 09:56:32 AM EDT UNASSIGNED 2 PUFF INHALATION active [facility] Albuterol Sulfate 03/28/2020 09:56:32 AM EDT UNASSIGNED 2 PUFF INHALATION [facility] Albuterol Sulfate 03/28/2020 09:56:32 AM EDT UNASSIGNED 2 PUFF INHALATION active [facility] Albuterol Sulfate 03/28/2020 09:56:32 AM EDT UNASSIGNED 2 PUFF INHALATION active [facility] Albuterol Sulfate 03/28/2020 09:56:32 AM EDT UNASSIGNED 2 PUFF INHALATION active [facility] Acetaminophen 325 MG Oral Tablet Acetaminophen 03/28/2020 09:5 0:19 AM EDT TABLET 325 MG ORAL completed [facility] Acetamin[facility] 325 MG Oral Tablet Acetaminophen 03/28/2020 09:5 0:19 AM EDT TABLET 325 MG ORAL [facility] Acetamin[facility] 325 MG Oral Tablet Acetaminophen 03/28/2020 09:5 0:19 AM EDT TABLET 325 MG ORAL [facility] Acetaminophen 325 MG Oral Tablet Acetaminophen 03/28/2020 09:5 0:19 AM EDT TABLET 325 MG ORAL [facility] Acetaminophen 325 MG Oral Tablet Acetaminophen 03/28/2020 09:5 0:19 AM EDT TABLET 325 MG ORAL completed [facility] Acetaminophen 325 MG Oral Tablet [Tylenol] Acetaminophen 03/28/2020 09:42:28 AM EDT TABLET 650 MG ORAL active [facility] Acetaminophen 325 MG Oral Tablet [Tylenol] Acetaminophen 03/28/2020 09:42:28 AM EDT TABLET 650 MG ORAL active [facility] Acetaminophen 325 MG Oral Tablet [Tylenol] Acetaminophen 03/28/2020 09:42:28 AM EDT TABLET 650 MG ORAL active [facility] Acetaminophen 325 MG Oral Tablet [Tylenol] Acetaminophen 03/28/2020 09:42:28 AM EDT TABLET 650 MG ORAL active [facility] Acetaminophen 325 MG Oral Tablet [Tylenol] Acetaminophen 03/28/2020 09:42:28 AM EDT TABLET 650 MG ORAL [facility] Meth[facility]rex[facility] 2.5 MG Oral Tablet methotrexate 2.5 MG ta blet methotrexate 2.5 MG tablet 08/30/2019 12:00:00 AM EDT aborted TAKE THREE TABLETS BY MOUTH Every Thursday @8AM [facility] Pilocarpine Hydrochloride 5 MG Oral Tablet pilocarpine (SALAGEN) 5 MG tablet pilocarpine (SALAGEN) 5 MG tablet 08/30/2019 12:00:00 AM EDT aborted High risk medication use TAKE ONE TABLET BY MOUTH @8A M and TAKE ONE TABLET @12PM and TAKE ONE TABLET @8PM [facility] High risk medication use Methotrexate 2.5 MG Oral Tablet methotrexate 2.5 MG ta blet methotrexate 2.5 MG tablet 06/24/2019 12:00:00 AM EDT 7.5 mg Oral abort ed Other systemic lupus erythematosus with other organ involvementSjogren's syndrome with keratoconjunctivitis sicca Take 3 tablets by mouth every 7 ( seven) days [facility] Other systemic lupus erythematosus with other organ involvement Sjogren's syndrome with keratoconjunctiv itis sicca Folic Acid 1 MG Oral Tablet folic acid (FOLVITE) 1 MG tablet folic acid (FOLVITE) 1 MG tablet 06/24/2019 12:00:00 AM EDT aborted High risk medication use TAKE TWO TABLETS BY MOUTH @8AM [facility] High risk medication use gabapentin 400 MG Oral Capsule gabapentin (NEURONTIN) 400 MG capsule gabapentin (NEURONTIN) 400 MG capsule 06/24/2019 12:00:00 AM EDT 400 mg Oral aborted Take 1 capsule [facility] Hydrox[facility] Sulfate 200 MG Oral T ablet hydroxychloroquine (PLAQUENIL) 200 MG tablet hydroxychloroquine (PLAQUENIL) 200 MG tablet 12:00:00 AM EDT 200 mg Oral aborted Long-term use of PlaquenilOther systemic lupus erythematosus with other organ involvementSjogren's syndrome with keratoconjunctivitis sicca Take 1 tablet by mouth Two Times Daily [facility] Long-term use of Plaquenil Other systemic lupus erythematosus with other organ involvement Sjogren's syndrome with keratoconjunctiv itis sicca buspirone hydrochloride 5 MG Oral Tablet buspirone 5 m g tablet buspirone 5 mg tablet completed buspirone hydro chloride 5 MG Oral Tablet RUBY ([facility]) Escitalopram 5 MG Oral Tablet escitalopram 5 mg tablet escit alopram 5 mg tablet completed escitalopram 5 MG Oral Tablet RUBY ([facility]) buspirone hydrochloride 5 MG Oral Tablet buspirone 5 m g tablet buspirone 5 mg tablet completed buspirone hydro chloride 5 MG Oral Tablet RUBY ([facility]) Escitalopram 5 MG Oral Tablet escitalopram 5 mg tablet escit alopram 5 mg tablet completed escitalopram 5 MG Oral Tablet RU[place] ([facility]) Trazodone Hydrochloride 50 MG Oral Tablet trazodone 50 mg tablet trazodone 50 mg tablet completed trazodone hydr ochloride 50 MG Oral Tablet RU[place] ([facility]) Baclofen 5 MG Oral Tablet baclofen 5 mg tablet baclofen 5 mg tablet completed baclofen 5 MG Oral Tablet RUBY ([facility]) Budesonide 0.16 MG/ACTUAT / formoterol f umarate 0.0045 MG/ACTUAT Metered Dose Inhaler budesonide-formoterol HFA 160 mcg-4.5 mcg/actuation aerosol inhaler budesonide-formoterol HFA 160 mcg-4.5 mcg/actuation aerosol inhaler completed budesonide 0.16 MG/A CTUAT / formoterol fumarate 0.0045 MG/ACTUAT Metered Dose Inhaler RUBY ([facility]) umeclidinium 0.0625 MG/ACTUAT Dry Powder Inhaler Incruse Ellipta 62.5 mcg/actuation powder for inhalation Incruse Ellipta 62.5 mcg/actuation powde r for inhalation completed umeclidinium 0.0625 MG/ACTUAT Dry Powder Inhaler RUBY ([facility]) Naproxen 500 MG Oral Tablet naproxen (NAPROSYN) 500 MG tablet naproxen (NAPROSYN) 500 MG tablet 500 mg Oral aborted Take 500 mg by mouth Two times daily as needed [facility] pantoprazole 40 MG Delayed Release Oral Tablet pantoprazole 40 mg tablet,delayed release pantoprazole 40 mg tablet,delayed release completed pantoprazole 40 MG Delayed Release Oral Tablet [place] ([facility]) Baclofen 5 MG Oral Tablet baclofen 5 mg tablet baclofen 5 mg tablet completed baclofen 5 MG Oral Tablet [place] ([facility]) buspirone hydrochloride 10 MG Oral Tablet buspirone 10 mg tablet buspirone 10 mg tablet completed buspirone hydr ochloride 10 MG Oral Tablet [place] ([facility]) gabapentin 400 MG Oral Capsule gabapentin 400 mg capsu le gabapentin 400 mg capsule completed gabapentin 400 MG Oral Capsule RUBY ([facility]) gabapentin 300 MG Oral Capsule gabapentin 300 mg capsu le gabapentin 300 mg capsule completed gabapentin 300 MG Oral Capsule [place] ([facility]) buspirone hydrochloride 15 MG Oral Tablet buspirone 15 mg tablet buspirone 15 mg tablet completed buspirone hydr ochloride 15 MG Oral Tablet [place] ([facility]) gabapentin 400 MG Oral Capsule gabapentin 400 mg capsu le gabapentin 400 mg capsule completed gabapentin 400 MG Oral Capsule [place] ([facility]) Baclofen 5 MG Oral Tablet baclofen 5 mg tablet baclofen 5 mg tablet completed baclofen 5 MG Oral Tablet [place] ([facility]) Prednisone 5 MG Oral Tablet prednisone 5 mg tablet prednisone 5 mg ta blet completed prednisone 5 MG Oral Tablet [place] ([facility]) umeclidinium 0.0625 MG/ACTUAT Dry Powder Inhaler Incruse Ellipta 62.5 mcg/actuation powder for inhalation Incruse Ellipta 62.5 mcg/actuation powde r for inhalation completed umeclidinium 0.0625 MG/ACTUAT Dry Powder Inhaler [place] ([facility]) duloxetine 60 MG Delayed Release Oral Ca psule duloxetine 60 mg capsule,delayed release duloxetine 60 mg capsule,delayed release completed duloxetine 60 MG Delayed Release Oral Capsule [place] ([facility]) buspirone hydrochloride 10 MG Oral Tablet buspirone 10 mg tablet buspirone 10 mg tablet completed buspirone hydr ochloride 10 MG Oral Tablet [place] ([facility]) tramadol hydrochloride 50 MG Oral Tablet tramadol 50 mg tablet Take 1 tablet by mouth every eight hours as needed for pain MDD 150 mg tramadol 50 mg tablet Take 1 tablet by mouth every eight hours as needed for pain MDD 150 mg completed tramadol hydrochloride 50 MG Ora l Tablet [place] ([facility]) pantoprazole 40 MG Delayed Release Oral Tablet pantoprazole 40 mg tablet,delayed release pantoprazole 40 mg tablet,delayed release completed pantoprazole 40 MG Delayed Release Oral Tablet [place] ([facility]) gabapentin 400 MG Oral Capsule gabapentin 400 mg capsu le gabapentin 400 mg capsule completed gabapentin 400 MG Oral Capsule [place] ([facility]) Trazodone Hydrochloride 50 MG Oral Tablet trazodone 50 mg tablet trazodone 50 mg tablet completed trazodone hydr ochloride 50 MG Oral Tablet [place] ([facility]) buspirone hydrochloride 10 MG Oral Tablet buspirone 10 mg tablet buspirone 10 mg tablet completed buspirone hydr ochloride 10 MG Oral Tablet [place] ([facility]) Escitalopram 5 MG Oral Tablet escitalopram 5 mg tablet escit alopram 5 mg tablet completed escitalopram 5 MG Oral Tablet [place] ([facility]) Acetaminophen 325 MG / Hydrocodone [place] trate 5 MG Oral Tablet hydrocodone 5 mg- acetaminophen 325 mg tablet hydrocodone 5 mg-acetaminophen 325 mg tablet completed acetaminophen 325 MG / hydrocodone bitartrate 5 MG Oral Tablet [place] ([facility]) Baclofen 5 MG Oral Tablet baclofen 5 mg tablet baclofen 5 mg tablet completed baclofen 5 MG Oral Tablet [place] ([facility]) Alprazolam 0.25 MG Oral Tablet alprazolam 0.25 mg tabl et alprazolam 0.25 mg tablet completed alprazolam 0.25 MG Oral Tablet [place] ([facility]) duloxetine 60 MG Delayed Release Oral Ca psule duloxetine 60 mg capsule,delayed release duloxetine 60 mg capsule,delayed release completed duloxetine 60 MG Delayed Release Oral Capsule [place] ([facility] [facility] Prednisone 5 MG Oral Tablet prednisone 5 mg tablet prednisone 5 mg ta blet completed prednisone 5 MG Oral Tablet RUBY ([facility]) Ondansetron 4 MG Disintegrating Oral Tab let ondansetron 4 mg disintegrating tablet ondansetron 4 mg disintegrating tablet completed ondansetron 4 MG Disintegrating Oral Tablet RUBY ([facility]) gabapentin 100 MG Oral Capsule gabapentin 100 mg capsu le gabapentin 100 mg capsule completed gabapentin 100 MG Oral Capsule RUBY ([facility]) buspirone hydrochloride 5 MG Oral Tablet buspirone 5 m g tablet buspirone 5 mg tablet completed buspirone hydro chloride 5 MG Oral Tablet RUBY ([facility]) duloxetine 60 MG Delayed Release Oral Ca psule duloxetine (CYMBALTA) 60 MG capsule duloxetine (CYMBALTA) 60 MG capsule 120 mg Oral aborted Take 120 mg by mouth nightly. [facility] Sumatriptan 25 MG Oral Tablet sumatriptan 25 mg tablet sumat riptan 25 mg tablet completed sumatriptan 25 MG Oral Tablet RUBY ([facility]) duloxetine 60 MG Delayed Release Oral Ca psule duloxetine 60 mg capsule,delayed release duloxetine 60 mg capsule,delayed release completed duloxetine 60 MG Delayed Release Oral Capsule RUBY ([facility]) gabapentin 100 MG Oral Capsule gabapentin 100 mg capsu le gabapentin 100 mg capsule completed gabapentin 100 MG Oral Capsule RUBY ([facility]) Trazodone Hydrochloride 50 MG Oral Tablet trazodone 50 mg tablet trazodone 50 mg tablet completed trazodone hydr ochloride 50 MG Oral Tablet RUBY ([facility]) gabapentin 300 MG Oral Capsule gabapentin 300 mg capsu le gabapentin 300 mg capsule completed gabapentin 300 MG Oral Capsule RUBY ([facility]) Trazodone Hydrochloride 50 MG Oral Tablet trazodone 50 mg tablet trazodone 50 mg tablet completed trazodone hydr ochloride 50 MG Oral Tablet RUBY ([facility]) Escitalopram 5 MG Oral Tablet escitalopram 5 mg tablet escit alopram 5 mg tablet completed escitalopram 5 MG Oral Tablet RUBY ([facility]) buspirone hydrochloride 15 MG Oral Tablet buspirone 15 mg tablet buspirone 15 mg tablet completed buspirone hydr ochloride 15 MG Oral Tablet RUBY ([facility]) buspirone hydrochloride 10 MG Oral Tablet buspirone 10 mg tablet buspirone 10 mg tablet completed buspirone hydr ochloride 10 MG Oral Tablet [place] ([facility]) gabapentin 100 MG Oral Capsule gabapentin 100 mg capsu le gabapentin 100 mg capsule completed gabapentin 100 MG Oral Capsule [place] ([facility]) Sumatriptan 50 MG Oral Tablet sumatriptan 50 mg tablet sumat riptan 50 mg tablet completed sumatriptan 50 MG Oral Tablet [place] ([facility]) tiotropium 0.018 MG/ACTUAT Inhalant Powd er [Spiriva] Spiriva with HandiHaler 18 mcg and inhalation capsules Spiriva with HandiHaler 18 mcg and inhal ation capsules completed tiotr opium 0.018 MG Inhalation Powder [Spiriva] [place] ([facility]) gabapentin 400 MG Oral Capsule gabapentin 400 mg capsu le gabapentin 400 mg capsule completed gabapentin 400 MG Oral Capsule [place] ([facility]) gabapentin 300 MG Oral Capsule gabapentin 300 mg capsu le gabapentin 300 mg capsule completed gabapentin 300 MG Oral Capsule [place] ([facility]) pantoprazole 40 MG Delayed Release Oral Tablet pantoprazole 40 mg tablet,delayed release pantoprazole 40 mg tablet,delayed release completed pantoprazole 40 MG Delayed Release Oral Tablet [place] ([facility]) gabapentin 300 MG Oral Capsule gabapentin 300 mg capsu le gabapentin 300 mg capsule completed gabapentin 300 MG Oral Capsule [place] ([facility]) buspirone hydrochloride 5 MG Oral Tablet buspirone 5 m g tablet buspirone 5 mg tablet completed buspirone hydro chloride 5 MG Oral Tablet [place] ([facility]) duloxetine 60 MG Delayed Release Oral Ca psule duloxetine 60 mg capsule,delayed release duloxetine 60 mg capsule,delayed release completed duloxetine 60 MG Delayed Release Oral Capsule [place] ([facility]) Insurance Providers Payer name Policy type / Coverage type Policy ID Covered alliance party ID Covered alliance party's relationship to baer Policy Baer Plan Information EMEDNY [id number] SP [id number] MEDICARE [id number] SP [id number] MEDICARE A [id number] Self [id number] [id number] MEDICAID M [id number] Self [id number] PERSONAL PAY [id number] SELF [id number] [facility] [id number] SELF [id number] MEDICARE [id number] SELF [id number] D95 SELF PAY MEDICAID [facility] [id number] SP [id number] MEDICARE [id number] SP [id number] D95 MEDICAID [id number] MEDICARE Medicare [id number] [place] [id number] Self [id number] MEDICARE Med [id number] Self [id number] D95 SELF PAY MEDICAID [facility] [id number] SP [id number] MEDICARE [id number] SP [id number] D95 SELF PAY MEDICAID [facility] [id number] SP [id number] MEDICARE [id number] SP [id number] D95 SELF PAY MEDICAID [facility] [id number] SP [id number] MEDICARE [id number] SP [id number] D95 SELF PAY MEDICAID [facility] [id number] SP BG [id number] MEDICARE [id number] SP [id number] D95 SELF PAY MEDICAID [facility] [id number] SP BG [id number] MEDICARE [id number] SP [id number] D95 SELF PAY MEDICAID [facility] [id number] SP [id number] MEDICARE [id number] SP [id number] D95 SELF PAY MEDICAID [facility] [id number] SP BG [id number] MEDICARE [id number] SP [id number] D95 SELF PAY MEDICAID [facility] [id number] SP BG [id number] MEDICARE [id number] SP [id number] D95 SELF PAY MEDICARE [id number] SP [id number] D95 MEDICAID [facility] [id number] SP BG [id number] SELF PAY SELF PAY SELF PAY MEDICAID [facility] [id number] SP [id number] MEDICARE [id number] SP [id number] D95 MEDICAID [facility] [id number] SP [id number] MEDICARE [id number] SP [id number] D95 MEDICAID [facility] [id number] SP BG [id number] MEDICARE [id number] SP [id number] D95 "" PRV None Medicaid CHELLE [id number] None [id number] Medicare MDA [id number] Self [id number] D95 Medicare MDB None Medicaid S [id number] S [id number] Medicare P [id number] S [id number] D95 SELF PAY MEDICAID [facility] [id number] SP [id number] MEDICARE [id number] SP [id number] D95 SELF PAY SELF PAY MEDICAID [facility] [id number] SP BG [id number] MEDICARE [id number] SP [id number] D95 SELF PAY MEDICAID [facility] [id number] SP BG [id number] MEDICARE [id number] SP [id number] D95 MEDICAID [facility] [id number] SP BG [id number] MEDICARE [id number] SP [id number] D95 SELF PAY MEDICAID [facility] [id number] SP BG [id number] MEDICARE [id number] SP [id number] D95 MCRB [id number] S [id number] D95 MEDICARE [id number] S [id number] D95 MEDICAID PROF FEES [id number] B [id number] MEDICAID [id number] S [id number] MEDICAID [facility]. 2 [id number] 1 [id number] MEDICARE [facility] ([facility]) - [id number] 1 [id number] SELF PAY SELF PAY MEDICAID [id number] S [id number] [facility] MEDICARE DIVISION [id number] S [id number] [place]IC[place] [id number] S [id number] SELF PAY MEDICARE [id number] Sandra [id number] D95 MEDICAID [id number] Sandra [id number] SELF PAY MEDICAID [facility] [id number] SP BG [id number] MEDICARE [id number] SP [id number] D95 MEDICAID [id number] MEDICARE [id number] MEDICAID [id number] SP [id number] MEDICARE C [id number] S [id number] D95 MEDICAID M [id number] S [id number] [facility] PART B C [id number] S [id number] MCRB [id number] S [id number] MEDICARE [id number] S [id number] MEDICAID [id number] S [id number] BCBS [facility] [id number] SPO DCI [id number] MEDICAID [id number] S [id number] MEDICAID [id number] S [id number] [place] [id number] S [id number] [place]IC[place] [id number] S [id number] DME Jurisdiction A NHIC C [id number] SELF [id number] Medicare C [id number] SELF [id number] D95 DME Jurisdiction A NHIC C [id number] SELF [id number] Medicare C [id number] SELF [id number] D95 Medicaid [facility] S D [id number] SELF [id number] MEDICARE A [id number] Self [id number] ANSI-Medicaid [id number] ANSI-Medicare Part B [id number] ANSI-Medicaid [id number] ANSI-Medicare Part B [id number] ANSI-Medicare Part B [id number] ANSI-Medicaid [id number] MEDICAID [id number] SP [id number] MEDICARE [id number] SP [id number] D95 ANSI-Medicaid [id number] ANSI-Medicare Part B [id number] ANSI-Medicaid [id number] ANSI-Medicare Part B [id number] ANSI-Medicaid [id number] ANSI-Medicare Part B [id number] ANSI-Medicare Part B [id number] ANSI-Medicaid [id number] ANSI-Medicaid [id number] ANSI-Medicare Part B [id number] ANSI-Medicare Part B [id number] ANSI-Medicaid [id number] ANSI-Medicare Part B [id number] ANSI-Medicaid [id number] ANSI-Medicaid [id number] ANSI-Medicare Part B [id number] ANSI-Medicaid [id number] ANSI-Medicare Part B [id number] MEDICAID [id number] S [id number] MEDICAID PI PI MEDICARE PI PI MEDICARE [id number] Sandra [id number] A Medicaid [place] Medigap Part B [id number] Self [id number] Medicare [place] Medicare Primary [id number] Self [id number] MEDICAID [id number] SP [id number] [facility] MEDICARE DIVISION [id number] S [id number] [place]ICARE [place] [id number] S [id number] [facility] MEDICARE DIVISION [id number] S [id number] [place]ICARE [place] [id number] S [id number] MEDICAID [id number] SP [id number] MEDICARE [id number] SP [id number] A Medicaid S [id number] S [id number] ASSIGNED MEDICARE (81) [id number] 1 [id number] MEDICAID (101) [id number] Medicaid [place] Medigap Part B [id number] Self [id number] [place] Primary [id number] Self [id number] MEDICARE [id number] SP [id number] A MEDICAID [id number] S [id number] MEDICARE C [id number] S [id number] A Medicare S [id number] S [id number] A Medicare P [id number] S [id number] MEDICAID -O/P [id number] MEDICARE PART A -O/P [id number] 18 [id number] [facility] MEDICARE PART B C [id number] S [id number] [facility] MEDICAID [id number] SP [id number] S [facility] [id number] SP [id number] MEDICARE/NATIONAL GOVT [facility]CS [id number] SP [id number] [facility] MEDICAID [id number] SP [id number] MEDICARE B [place] [id number] SP [id number] MEDICARE/NATIONAL GOVT SV[place] [id number] SP [id number] MEDICAID [id number] SP [id number] Medicare Part B [facility] [id number] MEDICAID [facility] [place] [id number] BG [id number] MEDICAID - CLINIC [id number] BG [id number] MEDICARE PART A-CLINIC [id number] SELF PAY UNAVAILABLE UNAVAILA BLE Medicare C [id number] SELF [id number] A MEDICARE [id number] S [id number] MCRB [id number] S [id number] A BLUE CROSS BLUE SHIELD-CLINIC [id number] SELF PAY SP UNAVAILABLE S UNAVAILA BLE BC BLUE CARD 1 [id number] MEDICAID W [id number] MEDICARE OUTPATIENT M [id number] S [id number] SELF PAY 2 UNAVAILABLE 1 [place] 3 [id number] [employer] [place] 010/[id number] [id number] POTOMAC/MEDICAID [id number] Medicare Part B [facility] [id number] [place] [id number] DCI [id number] MEDICAID S UNAVAILABLE P UNA[place] BLE BC BS AL O [id number] [employer] 12 [id number] [place] O [id number] MEDICARE PART A-CLINIC [id number] Problems, Conditions, and Diagnoses Code Display Name Description Problem Type Effective Dates Data Source(s) F17.200 Nicotine dependence, unspecified, uncomp licated Tobacco Use Disorder, Moderate Condition 01/02/2021 12:00:00 AM EST [facility] ([facility]) F32.9 Major depressive disorder, single episod e, unspecified Unspecified depressive Disorder Condition 01/02/2021 12:00:00 AM EST [facility] ([facility]) 248138637 Drug seeking behavior Drug Seeking Behavior Problem 12/17/2020 12:00:00 AM EST [place] ([facility]) 18783057 Drug overdose Drug Overdose Problem 12/17/2020 12:00:00 AM EST [place] ([facility]) 77468823 Oropharyngeal dysphagia Oropharyngeal Dysphagia Proble 12/17/2020 12:00:00 AM EST [place] ([facility]) 39833006 Borderline personality disorder Borderline Perso nality Disorder Problem 12/17/2020 12:00:00 AM EST [place] ([facility]) 64771686 Wernicke's disease Wernicke's Disease Problem 11/2020 12:00:00 AM EST [place] ([facility]) 15010974 Hypothyroidism Hypothyroidism Problem 12/17/2020 12:00: 00 AM EST [place] ([facility]) 510321540 Steatosis of liver Steatosis of Liver Problem 12:00:00 AM EST [place] ([facility]) 11713811 Essential hypertension Essential Hypertension Problem 12/14/2020 12:00:00 AM [place]UN [place] ([facility]) 470680789 Mixed anxiety and depressive disorder Mi xed Anxiety and Depressive Disorder Problem 12/04/2020 12:00:00 AM EST [place] ([facility]) 646756325 Mixed anxiety and depressive disorder Mi xed Anxiety and Depressive Disorder Problem 12/04/2020 12:00:00 AM [place]UN [place] ([facility]) 936553422 Retention of urine Retention of urine Problem 11/2019 12:00:00 AM EDT [facility] ([facility]) 31855641 Acute cystitis Acute cystitis Problem 04/16/2020 12:00: 00 AM EDT [facility] ([facility]) 30360035 Eating disorder Eating Disorder Problem 9 12:00:00 AM EDT - 12/14/2020 12:00:00 AM EST [place] ([facility]) 67780839 Nausea and vomiting Nausea and Vomiting Problem 1 12:00:00 AM EDT - 12/14/2020 12:00:00 AM EST [place] ([facility]) 503177838 Abnormal weight loss Abnormal Weight Loss Problem 08/26/2019 12:00:00 AM EDT - 12/14/2020 12:00:00 AM EST [place] ([facility]) 460137188 Emotional state finding Emotional State Finding Proble 07/06/2019 12:00:00 AM EDT - 12/14/2020 12:00:00 AM [place]UN [place] ([facility]) 118247107 Lower urinary tract finding Lower Urinary Tract Findin g Problem 05/26/2019 12:00:00 AM EDT - 12/14/2020 12:00:00 AM [facility]UN [place] ([facility]) 715191298 Breast neoplasm screening status Breast Neoplasm Screening Status Problem 03/30/2019 12:00:00 AM EDT - 12/14/2020 12:00:00 AM CASA [place] ([facility]) 421471725 Clinical finding Clinical Finding Problem 019 12:00:00 AM EDT - 12/14/2020 12:00:00 AM [facility]UN [place] ([facility]) 77463946 Pain Pain Problem 02/02/2019 12:0 0:00 AM EDT - 12/14/2020 12:00:00 AM [place]UN [place] ([facility]) 11356310 Hypersomnia Hypersomnia Problem 09/17/2018 12:0 0:00 AM EDT - 12/14/2020 12:00:00 AM EST [place] ([facility]) 79440113 Disorder of skin Disorder of Skin Problem 018 12:00:00 AM EDT - 12/14/2020 12:00:00 AM SHAUN [place] ([facility]) 537517537 Tobacco use and exposure - finding Tobacco Use a nd Exposure - Finding Problem 09/13/2018 12:00:00 AM EDT - 12/14/2020 12:00:00 AM [place] [place] ([facility]) 898133840 Finding of defecation Finding of Defecation Problem 08/02/2018 12:00:00 AM EDT - 12/14/2020 12:00:00 AM [place]UN [place] ([facility]) 268118037 Polyalgia Polyalgia Problem 05/18/2018 12:0 0:00 AM EDT - 12/14/2020 12:00:00 AM SHAUN [place] ([facility]) 351286073 Foreign body Foreign Body Problem 05/10/2018 12:0 0:00 AM EDT - 12/14/2020 12:00:00 AM EST [place] ([facility]) 552326924 Finding related to sleep Finding Related to Sleep Prob nicolle 04/27/2018 12:00:00 AM EDT - 12/14/2020 12:00:00 AM SHAUN [place] ([facility]) 53912992 Hypertensive disorder Hypertensive Disorder Problem 04/19/2018 12:00:00 AM EDT - 12/14/2020 12:00:00 AM SHAUN [place] ([facility]) 68200639 Mental disorder Mental Disorder Problem 8 12:00:00 AM EDT - 12/14/2020 12:00:00 AM SHAUN [place] ([facility]) 011692168 Overweight Overweight Problem 04/13/2018 12:0 0:00 AM EDT - 12/14/2020 12:00:00 AM SHAUN [place] ([facility]) E55.9 Vitamin D deficiency, unspecified Vitamin D defi ciency, unspecified Diagnosis 01/01/2021 07:54:19 AM [facility] F17.210 Nicotine dependence, cigarettes, uncompl icated Nicotine dependence, cigarettes, uncomplicated Diagnosis 12/03/2020 02:23:00 PM [facility] H54.62 Unqualified visual loss, left eye, abdoulaye l vision right eye Unqualified visual loss, left eye, normal vision right eye Diagnosis 021 02:23:00 PM [facility] G43.909 Migraine, unspecified, not intractable, without status migrainosus Migraine, unspecified, not intractable, without status migrainosus Diagnosis 12/03/2020 02:23:00 PM [facility] RO stroke RO stroke Diagnosis 12/03/2020 02:23:00 PM [facility] R51.9 HEADACHE UNSPECIFIED HEADACHE, UNSPECIFIED Diagnosis 11/23/2020 01:14:00 PM [facility] G43.909 Migraine, unspecified, not intractable, without status migrainosus MIGRAINE, UNSPECIFIED, NOT INTRACTABLE, WITHOUT STATUS MIGRAINOSUS Diagnosis 11/23/2020 01:14:00 PM [facility] F32.9 Major depressive disorder, single episod e, unspecified MAJOR DEPRESSIVE DISORDER, SINGLE EPISODE, UNSPECIFIED Diagnosis 11/23/2020 01:14:00 PM EST [facility] Z11.59 Encounter for screening for other viral diseases Z11.59 - Encounter for screening for other viral diseases Diagnosis 10/16/2020 08:25:00 AM [facility] U07.1 U07.1 - COVID-19 U07.1 - COVID-19 Diagnosis 10/05/2020 10 :44:00 AM EST [facility] Z20.828 Contact with and (suspected) exposure to other viral communicable diseases Z20.828 - Contact with and (suspected) e xposure to other viral communicable diseases Diagnosis 09/21/2020 02:36:00 PM [facility] Z01.84 Encounter for antibody response examinat ion Z01.84 - Encounter for antibody response examination Diagnosis 09/10/2020 11:25:00 AM EDT [facility] R94.6 Abnormal results of thyroid function kristan dies R94.6 - Abnormal results of thyroid function studies Diagnosis 08/15/2020 07:00:00 AM EDT [facility] ealt M25.50 Pain in unspecified joint Pain in unspecified joint Di agnosis 07/26/2020 09:28:45 AM [facility] G89.29 Other chronic pain Other chronic pain Diagnosis 08/2020 09:28:45 AM [facility] M79.10 M79.10 - Myalgia, unspecified site M79.10 - Myal devon, unspecified site Diagnosis 06/20/2020 07:50:00 PM EDT [facility] D64.9 Anemia, unspecified D64.9 - Anemia, unspecified Diagno sis 06/18/2020 10:52:00 AM EDT [facility] M32.10 Systemic lupus erythematosus, organ or s ystem involvement unspecified M32.10 - Systemic lupus erythematosus, organ or system involvement unspecified Diagnosis 06/07/2020 09:10:00 PM EDT [facility] G93.1 Anoxic brain damage, not elsewhere class ified G93.1 - Anoxic brain damage, not elsewhere classified Diagnosis 06/07/2020 09:10:00 PM EDT [facility] 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 I69.914 - Frontal lobe and executive fun ction deficit following unspecified cerebrovascular disease Diagnosis 06/07/20 20 09:10:00 PM EDT [facility] J41.0 Simple chronic bronchitis J41.0 - Simple chronic bronc hitis Diagnosis 06/07/2020 09:10:00 PM EDT [facility] I10 Essential (primary) hypertension I10 - Essential (primary) hypertension Diagnosis 06/07/2020 09:10:00 PM EDT [facility] 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 F44.5 - Conversion disorder with seizures or convulsions Diagnosis 06/07/2020 09:10:00 PM EDT [facility] M32.9 Systemic lupus erythematosus, unspecifie d M32.9 - Systemic lupus erythematosus, unspecified Diagnosis 06/07/2020 09:10:00 PM EDT [facility] R45.851 Suicidal ideations R45.851 - Suicidal ideations Diagno sis 06/07/2020 09:10:00 PM EDT [facility] F32.9 Major depressive disorder, single episod e, unspecified F32.9 - Major depressive disorder, single episode, unspecified Diagnosis 06/07 09:10:00 PM EDT [facility] H53.149 Visual discomfort, unspecified H53.149 - Visual discomfort, unspecified Diagnosis 05/09/2020 02:21:00 AM EDT [facility] R11.0 Nausea R11.0 - Nausea Diagnosis 05/09/2020 02:21:00 A M EDT [facility] R51 Headache R51 - Headache Diagnosis 05/09/2020 02:21:00 A M EDT [facility] N30.00 Acute cystitis without hematuria N30.00 - Acute cystitis without hematuria Diagnosis 04/16/2020 11:00:00 PM EDT [facility] R41.81 Age-related cognitive decline R41.81 - Age-relat ed cognitive decline Diagnosis 04/05/2020 07:40:00 AM EDT [facility] F41.9 Anxiety disorder, unspecified ANXIETY DISORDER, UNSPEC IFIED Diagnosis 04/02/2020 12:00:00 AM EDT [facility] ([facility] ) N39.0 Urinary tract infection, site not specif ied URINARY TRACT INFECTION, SITE NOT SPECIFIED Diagnosis 04/02/2020 12:00:00 AM EDT [facility] ([facility]) N30.90 Cystitis, unspecified without hematuria CYSTITIS, UNSPECIFIED WITHOUT HEMATURIA Diagnosis 04/02/2020 12:00:00 AM EDT [facility] ([facility] M35.00 Sicca syndrome, unspecified SICCA SYNDROME, UNSPECIFIE D Diagnosis 04/02/2020 12:00:00 AM EDT [facility] ([facility] ) T50.905A Adverse effect of unspecifie d drugs, medicaments and biological substances, initial encounter T50.905A - Adverse effect of unspecified drugs, medicaments and biological substances, initial encounter Diagnosis 03/28/2020 02:08:00 PM EDT [facility] K58.0 Irritable bowel syndrome with diarrhea K 58.0 - Irritable bowel syndrome with diarrhea Diagnosis 03/28/2020 02:08:00 PM EDT [facility] R00.1 Bradycardia, unspecified R00.1 - Bradycardia, unspecif ied Diagnosis 03/28/2020 02:08:00 PM EDT [facility] E51.2 Wernicke's encephalopathy E51.2 - Wernicke's encephalo jonny Diagnosis 03/28/2020 02:08:00 PM EDT [facility] J45.909 Unspecified asthma, uncomplicated J45.90 9 - Unspecified asthma, uncomplicated Diagnosis 03/28/2020 02:08:00 PM EDT [facility] R63.0 Anorexia R63.0 - Anorexia Diagnosis 03/28/2020 02:08:00 PM EDT [facility] R06.02 Shortness of breath R06.02 - Shortness of breath Diagn osis 03/28/2020 02:08:00 PM EDT [facility] K58.9 Irritable bowel syndrome without diarrhe a K58.9 - Irritable bowel syndrome without diarrhea Diagnosis 03/28/2020 02:08:00 PM EDT [facility] N13.9 Obstructive and reflux uropathy, unspeci fied N13.9 - Obstructive and reflux uropathy, unspecified Diagnosis 03/28/2020 02:08:00 PM EDT [facility] R26.89 Other abnormalities of gait and mobility R26.89 - Other abnormalities of gait and mobility Diagnosis 03/28/2020 02:08:00 PM EDT [facility] M62.81 Muscle weakness (generalized) M62.81 - Muscle we akness (generalized) Diagnosis 03/28/2020 02:08:00 PM EDT [facility] M79.7 Fibromyalgia M79.7 - Fibromyalgia Diagnosis 03/28/2020 02 :08:00 PM EDT [facility] Z96.0 Presence of urogenital implants Z96.0 - Presence of urogenital implants Diagnosis 03/28/2020 02:08:00 PM EDT [facility] Z98.84 Bariatric surgery status Z98.84 - Bariatric surgery st atus Diagnosis 03/28/2020 02:08:00 PM EDT [facility] N13.9 Obstructive and reflux uropathy, unspeci fied OBSTRUCTIVE AND REFLUX UROPATHY, UNSPECIFIED Diagnosis 01/12/2020 12:00:00 AM EST [facility] ([facility]) R26.89 Other abnormalities of gait and mobility OTHER ABNORMALITIES OF GAIT AND MOBILITY Diagnosis 12/05/2019 12:00:00 AM EST [facility] ([facility]) Surgeries/Procedures Procedure Description Date Indications Data Source(s) Psychiatric Diagnostic Evaluation (Non-Medical) 01/02/2021 12:00:00 AM EST - 01/02/2021 12:00:00 AM EST [facility] ([facility]) Psychiatric Diagnostic Evaluation (Non-Medical) 2020 12:00:00 AM EST [facility] ([facility]) Extended Individual Psychotherapy - 45 min 12/21/2020 12:00:00 AM EST - 12/21/2020 12:00:00 AM EST [facility] ([facility]) Extended Individual Psychotherapy - 45 min 12:00:00 AM EST [facility] ([facility]) URNLS DIP STICK/TABLET REAGENT AUTO MICROSCOPY URINALYSIS W ITH MICROSCOPIC STAT 12/03/2020 6:19 PM EST 12/03/2020 06:19:00 PM [facility] EKG ED PHYSICIAN INTERPRETATION EKG ED PHYSICIAN INTERPRETATION Routine 12/03/2020 3:51 PM EST 12/03/2020 03:51:14 PM [facility] CT ANGIOGRAPHY NECK W/CONTRAST/NONCONTRAST CT ANGIOGRAPHY NECK [id number] STAT 12/03/2020 3:44 PM EST 12/03/2020 03:44:03 PM [facility] CT ANGIOGRAPHY HEAD W/CONTRAST/NONCONTRAST CT ANGIOGRAPHY HEAD [id number] STAT 12/03/2020 3:44 PM EST 12/03/2020 03:44:03 PM [facility] POCT ISTAT BHCG POCT ISTAT BHCG Routine 12/03/2020 3:05 PM EST 12/03/2020 03:05:00 PM [facility] BASIC METABOLIC PANEL CALCIUM TOTAL POCT ISTAT CHEM8 Routine 12/03/2020 3:01 PM EST 12/03/2020 03:01:00 PM [facility] POCT ISTAT VBG/LAC POCT ISTAT VBG/LAC Routine 12/03/2020 2:[address] 12/03/2020 02:55:00 PM [facility] SEDIMENTATION RATE RBC AUTOMATED SEDIMENTATION RATE, AUTOMATED Routine 12/03/2020 2:53 PM EST 12/03/2020 02:53:00 PM [facility] PROTHROMBIN TIME PROTIME INR STAT 12/03/2020 2:53 PM EST 12/03/2020 02:53:00 PM [facility] BLOOD COUNT COMPLETE AUTO&AUTO DIFRNTL WBC COUNT CBC AND DIFFER ENTIAL Routine 12/03/2020 2:53 PM EST 12/03/2020 02:53:00 PM [facility] BASIC METABOLIC PANEL CALCIUM TOTAL BASIC METABOLIC PANEL STAT 12/03/2020 2:53 PM EST 12/03/2020 02:53:00 PM [facility] EKG 12 LEAD (UNSOLICITED COMPUTER ORDER) EKG 12 LEAD (UNSOLICITED COMPUTER ORDER) Routine 12/03/2020 2:41 PM EST 12/03/2020 02:41 :42 PM [facility] EKG 12-LEAD - CMAXX REPORT EKG 12-LEAD - CMAXX REPORT 12/03/2020 2:41 PM EST 12/03/2020 02:41:42 PM [facility] CT HEAD/BRAIN W/O CONTRAST MATERIAL CT HEAD WITHOUT CONTRAST 70 450 CODE 12/03/2020 2:30 PM EST 12/03/2020 02:30:42 PM [facility] CBC AND DIFFERENTIAL CBC AND DIFFERENTIAL Routine 10/24/2020 9:40 AM EST 10/24/2020 09:40:00 AM [facility] THYROID STIMULATING HORMONE TSH TSH Routine 10/24/2020 9:40 AM EST 10/24/2020 09:40:00 AM [facility] FOLIC ACID SERUM FOLATE Routine 10/24/2020 9:40 AM EST 10/24/2020 09:40:00 AM [facility] CYANOCOBALAMIN VITAMIN B-12 VITAMIN B12 Routine 10/24/2020 9:40 AM EST 10/24/2020 09:40:00 AM [facility] COMPREHENSIVE METABOLIC PANEL COMPREHENSIVE METABOLIC PANEL Rou ruthann 10/24/2020 9:40 AM EST 10/24/2020 09:40:00 AM [facility] Urine culture (procedure) 04/16/2020 12:00:00 AM EDT [facility] Monocyte percent differential count (procedure) 2019 12:00:00 AM EDT [facility] MR SPINE CERVICAL WO CONT 03/31/2020 02:44:00 PM EDT [facility] MR SPINE CERVICAL WO CONT 03/31/2020 02:44:00 PM EDT [facility] MR SPINE CERVICAL WO CONT 03/31/2020 02:44:00 PM EDT [facility] MR BRAIN WO CONTRAST 03/31/2020 08:27:00 AM EDT [facility] MR BRAIN WO CONTRAST 03/31/2020 08:27:00 AM EDT [facility] MR BRAIN WO CONTRAST 03/31/2020 08:27:00 AM EDT [facility] Urine culture (procedure) 03/30/2020 12:00:00 AM EDT [facility] Monocyte percent differential count (procedure) 2019 12:00:00 AM EDT [facility] Urine culture (procedure) 03/30/2020 12:00:00 AM EDT [facility] Monocyte percent differential count (procedure) 2019 12:00:00 AM EDT [facility] Urine culture (procedure) 03/30/2020 12:00:00 AM ED [facility] Monocyte percent differential count (procedure) 2019 12:00:00 AM EDT [facility] Plain chest X-ray (procedure) 03/28/2020 09:49:00 AM E DT [facility] CT BRAIN HEAD WO CONTRAST 03/28/2020 09:49:00 AM EDT [facility] Plain chest X-ray (procedure) 03/28/2020 09:49:00 AM E DT [facility] CT BRAIN HEAD WO CONTRAST 03/28/2020 09:49:00 AM EDT [facility] Plain chest X-ray (procedure) 03/28/2020 09:49:00 AM E DT [facility] CT BRAIN HEAD WO CONTRAST 03/28/2020 09:49:00 AM EDT [facility] Plain chest X-ray (procedure) 03/28/2020 09:49:00 AM E DT [facility] CT BRAIN HEAD WO CONTRAST 03/28/2020 09:49:00 AM EDT [facility] Blood culture for bacteria, including anaerobic screen (proc edure) 03/28/2020 12:00:00 AM EDT [facility] Blood culture for bacteria, including anaerobic screen (proc edure) 03/28/2020 12:00:00 AM EDT [facility] Blood culture for bacteria, including anaerobic screen (proc edure) 03/28/2020 12:00:00 AM EDT [facility] Blood Culture 03/28/2020 12:00:00 AM EDT [facility] Urine Culture 03/28/2020 12:00:00 AM EDT [facility] [place] Count 03/28/2020 12:00:00 AM EDT [facility] Results ID Date Data Source [id number] 01/01/2021 11:43:37 AM [facility] Name Value Range Interpretation Code Description Data Elizabeth rce(s) Supporting Document(s) Progress Note [facility] NHNRKw4pAeNQDwYr61/WFDtzFTAnq0QbYBagGWu4ULntOXHoR7FpRUH4hP8cMWF8YWjFPuSlWoXxEcB3 lbm [file] AgICAgICAgICAgICAgICAgICAgICAgICAgICAgICAgICAgICAgICAgICAgICAgICAgICAgDQogICAgIC AgICAgICAgICAgICAgICAgICAgICAgICAgICAgICAg ICAgICAgICAgICAgICAgICAgICAgICAgICAgICAgICAgICAgICAgICAgICAgICAgICAgICAgICAgICAg ICAgDQogICAgICAgICAgICAgICAgICAgICAgICAgICAgICAgICAgICAgICAgICAgICAgICAgICAgICAg ICAgICAgICAgICAgICAgICAgICAgICAgICAgICAgIC AgICAgICAgICAgICAgDQogICAgICAgICAgICAgICAgICAgICAgICAgICAgICAgICAgICAgICAgICAgIC AgICAgICAgICAgICAgICAgICAgICAgICAgICAgICAgICAgICAgICAgICAgICAgICAgICAgICAgDQogIC AgICAgICAgICAgICAgICAgICAgICAgICAgICAgICAg ICAgICAgICAgICAgICAgICAgICAgICAgICAgICAgICAgICAgICAgICAgICAgICAgICAgICAgICAgICAg ICAgICAgDQogICAgICAgICAgICAgICAgICAgICAgICAgICAgICAgICAgICAgICAgICAgICAgICAgICAg ICAgICAgICAgICAgICAgICAgICAgICAgICAgICAgIC AgICAgICAgICAgICAgICAgDQogICAgICAgICAgICAgICAgICAgICAgICAgICAgICAgICAgICAgICAgIC AgICAgICAgICAgICAgICAgICAgICAgICAgICAgICAgICAgICAgICAgICAgICAgICAgICAgICAgICAgDQ ogICAgICAgICAgICAgICAgICAgICAgICAgICAgICAg ICAgICAgICAgICAgICAgICAgICAgICAgICAgICAgICAgICAgICAgICAgICAgICAgICAgICAgICAgICAg ICAgICAgICAgDQogICAgICAgICAgICAgICAgICAgICAgICAgICAgICAgICAgICAgICAgICAgICAgICAg ICAgICAgICAgICAgICAgICAgICAgICAgICAgICAgIC AgICAgICAgICAgICAgICAgICAgDQogICAgICAgICAgICAgICAgICAgICAgICAgICAgICAgICAgICAgIC AgICAgICAgICAgICAgICAgICAgICAgICAgICAgICAgICAgICAgICAgICAgICAgICAgICAgICAgICAgIC IcQIx6V9pyPEIqMWJfTJ9bEBx5Pj1+DQoNCmVuZHN0 eyGtpQ8EJE9pj9OlZShvNFOan8ZrVHr4RN2GUOLbUKbxRS5RHNstpg6JVJVbYMWgsVRWc4dhHeOlKOO9 VRYuOnvvXJ8PVIPhI7ibkxMhGMMmOGCYDBryTDMJPOnjESFWLSMdUSQbGjAtGfPaLVUoKWRhOAGXNQX6 IDAgUiAxOSAwIFIgMjEgMCBSIDIzIDAgUiAyNSAwIF FdHwlcQWVUHN6WBzLmZ7SrkH75BUWhNEh+Pp4BDD3yd9AtTTr2YTAyQV6hdm4AAGbKCdMiM7EegbE9RY A4WPMqBu7MKZKaJTKpiYA8FZDvPSNBOmUoY5EoeI57PGODTq9+XDniqgRjOfbCBpP9USQky9OkSEr9UR 7HWGOlTFx0kVEzCSPmE4Pcx2WmIc74TWLmQbuvUiGk qvLmZWHJx3QovKVcWR8OSYH0ZXOiHYUsNeIfYUPuVSpdXRYIFPjBQdSqF4Hse8XxTnX2DGWhPaIxFEfi MYHhNsY3JB38fFtsEC9EPYOsVLSfVK11MTV7UCKlEl1FHe2LGjBmJS0xif2HSOTpIFFoRzqEGey7PGac AQ3TtYNwL6WzpAHvq7eTAjPiV2MILOWcPGMwEa2OWU FnJzIoXSRyKGwjKS2gDMGkLOLJxCcbrpF5DF3BOV0zvlSuRD1IAaLrNj3jCq6NOrJqH7CtS2OjRFVoKC GWAIjvWV6JNQfuLN8rIB0Pj7ENwZGddH5evx7PJEBhWSQtJzasxt0MKmuoS2Z7lKafHFNoFNDtOTPMKD jnWX4SLDAgLYF7XHA1OwThDIHGInPsK62rYB6JR9Ac m14rAvA1OWPmCfPaGFfxLU57xSgdmsDpaWJfqGraED6DDd8+DQplbmRvYmoNCnhyZWYNCjAgNDcNCjAw AGIzTXUaJDKnPdV3AmDoYl4KXSYrJSGyAGWmQqIwFZDlHFOmMUppJVYnGNXfRvR4NCIbYLOtHG5TYwDa RCJdNKZoDNIfPYZlYQMwir1DTKIaAHDyMOY6TrRlZM QiHHJwREobIATeUVF8NGGgWDMoSSYlPR6XZnTtLBYqGTO7QkUnHTZxRVEyks4KZCVjBCEwRaX0XrYzKV LoFQJpIWdiTJCpKJC8XELrAHKoTZPuGD9JHbLgVLEcQUOhUuunNIFwIEEmwk7FCTPaTOMoFCP8YsDyPT QaMTZqSPtsZTAhJAA1VYR3HLJoIGLyOK8NCbDdRPIl GGAjGmWmGORuMQIcdi4BEMSoIOLiHjQ0UhKmUJNeNZIvWSvcDWOjGNQ2PvD9NMErANSzUV2VYcWlCMYw DhY4LAZnTAIvSJUdsk0IIZTdVRLbRVy0XWExDSTqNULdNWujJGZsBVEpWVFaARXlICBbPW7HQhBnWHRb EuGsJPLwBDIeJHZjbr7CZQJgPAZdWpS8MOBvPYQbWM GwWZazHYXxGRE4MYo1ZSWxGZQfPI6LMmYuEZFeRyb5LlMzVNFbVERtwq2OQWXiHMYhRCsdLAExYIZuIT OeRQfgYUPyYTOhCJX6JIUlRHJtTM9MNqGvYCYhQfCoKoAtCTCeXDSlhw9QXRAlYFAsUMA9HcQeEDKoVY FtILdcBUUkRJW7MAK0YRGfJJXcBZ9VHhDbWMVfPoUq DcKmDLIjTDKccn4FUHOuPHUzACGrJsNoIUFxMJAbNVtiAIWaNFL6WSy5HORjRQNhPP2YGiBbJEAwWvXs JTSyVMGlPUPhfn2DIFHpZNMpCqV1GjJdSAWhHIMqQHhbFLJrWID5EKT0QDJgQURoYY0DWrKgQDJuZwz6 GtxoXBWxCXKkqr8GWXCmSODjCtftEWBpVRFbSNBjCX taKBQrLHV7LbX7OXGmFCAfME6WZdJkRPKuUEb7FaJqRILxCXRzxa7APDLcUGY9VPq8DMXoIXAkCMWtIM jxVRRbOZLmFAT2BLWaAVMuGZ7LLsTtHGBbJFGjAgEzSFPeZZClry5CJVNiOVV0VXBlFREdNQAyPDXoRH brPZDnFIIzFXP4MUYrQBHyZR9RReCaDFLnVIA1IPLd BXPsUEZbts2YMEXvXLO4RpZhIdRnMVRcSDIoYKcfQYBvCPApXLH8DXZpEAUjIR9JDpJvCHFoQCN2CMuh RTFbFZCfqa9HGBBzQOW7ZioeGoIwLQVoYJYoLEn9odTkrRKiIQg0BZ0DK3SbivFcKVsSYl2Tc433DPD4 IWKqQt6MN2zcVg5iYCZhPKSOAd5XJQv9YQG1ZAhvJm KiMXN9IeL7EPOsFjBmD0ZlWVNuDSNuJmW+YUy8FTX4JTSnLRYiNTR7CRslMNSxDAQ3GeA6VjIlTAV9OH 2gZHPBXq4+EZncaLUekOfvNDSFApNwFQqhAGkvEDELSd5M ID Date Data Source [id number] 12/14/2020 08:08:[address] [facility] Name Value Range Interpretation Code Description Data Elizabeth rce(s) Supporting Document(s) [facility] XSLETf7gFuWQRdAp19/WJOkxBOZuj9MmMBsvIJc1LGmfAEQrN8QrOKU1xB0bVDA0GLgITfRqYqRbVEM7 lbm [file] ICAgICAgICAgICAgICAgICAgICAgICAgICAgICAgICAgICAgICAgICAgICAgICAgICAgICAgICAgICAg ICAgICAgICAgICAgICAgICAgICAgICAgICAgICAgIC AgICAgICAgDQogICAgICAgICAgICAgICAgICAgICAgICAgICAgICAgICAgICAgICAgICAgICAgICAgIC AgICAgICAgICAgICAgICAgICAgICAgICAgICAgICAgICAgICAgICAgICAgICAgICAgDQogICAgICAgIC AgICAgICAgICAgICAgICAgICAgICAgICAgICAgICAg ICAgICAgICAgICAgICAgICAgICAgICAgICAgICAgICAgICAgICAgICAgICAgICAgICAgICAgICAgICAg DQogICAgICAgICAgICAgICAgICAgICAgICAgICAgICAgICAgICAgICAgICAgICAgICAgICAgICAgICAg ICAgICAgICAgICAgICAgICAgICAgICAgICAgICAgIC AgICAgICAgICAgDQogICAgICAgICAgICAgICAgICAgICAgICAgICAgICAgICAgICAgICAgICAgICAgIC AgICAgICAgICAgICAgICAgICAgICAgICAgICAgICAgICAgICAgICAgICAgICAgICAgICAgDQogICAgIC AgICAgICAgICAgICAgICAgICAgICAgICAgICAgICAg ICAgICAgICAgICAgICAgICAgICAgICAgICAgICAgICAgICAgICAgICAgICAgICAgICAgICAgICAgICAg ICAgDQogICAgICAgICAgICAgICAgICAgICAgICAgICAgICAgICAgICAgICAgICAgICAgICAgICAgICAg ICAgICAgICAgICAgICAgICAgICAgICAgICAgICAgIC AgICAgICAgICAgICAgDQogICAgICAgICAgICAgICAgICAgICAgICAgICAgICAgICAgICAgICAgICAgIC AgICAgICAgICAgICAgICAgICAgICAgICAgICAgICAgICAgICAgICAgICAgICAgICAgICAgICAgDQogIC AgICAgICAgICAgICAgICAgICAgICAgICAgICAgICAg ICAgICAgICAgICAgICAgICAgICAgICAgICAgICAgICAgICAgICAgICAgICAgICAgICAgICAgICAgICAg ICAgICAgDQogICAgICAgICAgICAgICAgICAgICAgICAgICAgICAgICAgICAgICAgICAgICAgICAgICAg ICAgICAgICAgICAgICAgICAgICAgICAgICAgICAgIC HoYOTqOPJqNKHiFUPnNDJiDMk6C9qcSEUhAPZuKE1zDLf7Ob6+EEwPVyUnLXM0qlYaxB8HFT5ik0WcER lhHINcg1EjRLo3EH9EFOOtZNdlJE1JSQbgwx0BAPPuCBAcpHCOs0ibIrDlIWW8LJQvLsicEQ0SBFGrP3 lkcyBbIDUgMCBSIDcgMCBSIDkgMCBSIDExIDAgUiAx UrXaKFIlOJ4XIPWjF268oaJmXF5RLx4HCiRoXT2tge1VZuRuVUYrIrmXNgy5LTdoRV7WgSTzuBCiAUSs RUMELbBmF6jcu9IoKhWlKZYVSHncLS1No2BloUPkYAh+In9EQI3eh7PeSYbmXSJnFU5qzq2ZCZwHWeJw G6UraKtvCAJbsiS4zYIjZJP5FEVgugmaLOQatfhyJL BEIwYqmSVmHoB7GlDoJtLlKHT6WAkuJJ6fBBpiME9ZAAS0NJrjDKSnDTQfH5wYVrOsGJMoAgTdfBqjQV 0CQoZkR4CcvqYxiLNkCwZyTNDBUu2+TIglumTfOoqZLiZ0JYWvx1FmWZi2NU6BCYIqSIqiKJ4TCMMmsO 1eOFvjEL6POkCmSWFgIYRXCrIaZ64ihOJdFGu9I4Ph YmVkZGVkRmlsZXMgPDwvTmFtZXMgWyBdDQogID4+ID4+AXeoGP7LAYgbybTxBJUmUd0QFZZjXJUtKV6b CTEyHVIwS7X0mYytNKEPSaDzL0jnyiwoWZ5qFZVwE305pEbeclKjUTWmMCQcQg3CYFGxVDR8LOSbtNMg EvCoBJPOJGjaBA6MyDSzHLP0uH8rQNpzKELgVGKlT2 oZUiGebGbjVH82pZowshLydXStGMw+Fo1OYG3ax4FiUEy2omLeRYngNDK3CUwgMHDtMJNeZDPrBAU2QK K2SDWFPuXlUZLmLQWsHToaXHJpWPAqqn0LJVRrNMBrIdA3OUWgLXUmWIQmWXupIXRfHWGiFSI0UFKtOU IrCP2RXeNoJNAaUOHcPNphFLHmRVVysp7TBLGpHWYu OsA5FrEzTHCwZSNyNBzpUVZfFAEbUINvCHLtHQCdFO3GZeUoHYKoKYQ3BgAcONAtAQEepg2TOXKsZNJb PeZ8UsWbRMVqVDHkJFqbROAbHTK9FJynVDIjVFQkPN0YJsUkWEHyDMzkRJgrRCMjHGDloy7BPFRrUMPo MTkzNiAwMDAwMCBuDQowMDAwMDEyMTQyIDAwMDAwIG 8YEpXgDFXmOODdJfPyLEJtXZLhpn6NDHIjYLKzKVCmFjUzHJVzHARePKtcEOPxGTR2Lwu0DAFrVLGrCO 1NJzNePAWkRRK5POWdTKRgXBXbzv8QAEHdEQEyUYc6YiHgAKBdXGRtLBsbEOYwAJB8MjY0CYZbAPObBB 2SXhYhUJImRTB8ZkjrVFJpKLIqth1JLXFeZLOtLgSk JKZmCVFmKXEyVNyqZZKdNJE0ADr4YNHmDANeMG6QRhHmSRQhVCegQADeHWWuMBKgnb5WCTVyZAKeCAR3 BHNaFSOjQHWtQObrCYQvYKJ1FGJgEAGxDDPlSC4PExRhTDVsHxDgBgcjCSNkCGYbai0SKOXtCBHkPHB8 GiUdDRQpUKTvUAhwKUMqTIKnUvF8AUQrQPZnJI5EKf JrGAIaIrO0UtWgEPRoFKNlor7APYXdOKCdEKslCyYzBBGgCOWjZCgaISXnHIPdKVs9IEMkENZdJM8QEm AtQGRwYsHsSiPvPNIdCGFdjq4RYEXrOHGnMnKyITOcLGIqFDIcGBkmUXFfSZTzAPB5ZWOpEEQsUA8XAw HuHQYnKgWbVJTmZFCcQINtdq3KACLsABJrECT2REFt MGLuGWNoFFw7qhHrjORwVWl0QH7UT1DgieLySiVTMu2Pi401UXM7NWOcNr4TG0zjAy6tRDZlFWLOJt5R SRz8DKt8AwU4AKXhRXZfAYAlJcL6GRV4BHshDnDwDOUjMZV+YSqqZczaNAUfC4FsANTrNYW1GmGkKON7 P4LtU7DiHfY1Wk5iVFPAEi6+SIlvfHNzoRhqTXJADjI7ZZB5VDnvCSILEj2B ID Date Data Source [id number] 12/05/2020 02:17:28 PM EST [facility] Name Value Range Interpretation Code Description Data Elizabeth rce(s) Supporting Document(s) ED Provider Note [facility] NRFYAn0jJoKLRkFg89/PEIyjDWOks9WuYDjlSWi0XZliCLKcH5FqIHW8aQ9cDXE8GCoIAbMxWwCsRQDq lbm [file] nusrZ/mFhgEwCmXGxt++electron gun inspector/xVboTu7RlCQ57MiNBk [file] Vn5fTRPKFf5+OCuonFNagZylAPUKAmD4JRZrKChhXDQTDj9P ID Date Data Source [id number] 12/04/2020 04:20:43 PM EST [facility] Name Value Range Interpretation Code Description Data Elizabeth rce(s) Supporting Document(s) ED Provider Note [facility] TJSMIq1dKrSZQjZq12/BPRqgJKSet1ZyCZvkUSo9XTafGTIcW0YbFDN8cQ4tXJN1SVdMNgBzNvEsQAY0 lbm RzMqoZGvBlAFBdSsnNZzMcVQpmRpyvtRAsLY6PpTN4YTHxZ93lJUUdZNFuR8MsWRR3Fek+Zi2UNSTjmC IlEK9LKviV9Z4wj8vXOR/vTP+Ny3sgW1z2f6xoqNxuCF11mqAxQ8XKPqXXitZebZWl8c6xqONf0Tt5MS yxBGwA8wKz3LO7l9+1f9QCfc/5UOhWmiZ0Vm//4c8w YqE0Noz2K+F5gKnTa35/RCPKR9qKkEF/wN1ygrtt/PQLzi71Ap5GCF9gX+ptChcmWzCCLNk9u/O9mPxH IHoSe4EvENACgyJyVtJ6Tn7pJdTf7WnH1XHFJDTr7mEDkEZvZpensi2jfQjAdF6uTODpL1wLFqTN9Cv/ fEewMgKvNVhQ+B6PxHuI1hAk0ZQent6wJc0dtHAtRB VZ1cxVq/SVQgnExep2/bTaJo/evDmChcEfN0W6xibwD7MZFsBJ72iwp/5pfOdf0XSqP7QlSf7+XH9ezl Iy3q+7kmAtwqjOiH1YE6GqVt1k7ZhCuXLfIz20XFpyqA9mvD1SvPo6kRHToRwLKpOdhLnV3G9Hu5AcdD rIF6yqpTYe+vyk1tOvUIQLLwaLMTAXJZ7YzCBIuvEX josefina+5lRJVWwoM3ux0sTMErXJWByLDSTQnZLEZZQCSfHH2WrDCwqCJxER4o3q7KAnCbmS4w1UK4sXd/ne [file] AJ3bpkA5HY1FjQXoCQSdKZDpeAOtDHv0Q96ljKDpYFdpUU0RZAM+Sania+Ie6XTSVmKRCmJXDaWoJyTETN MnQjI6TyH8VPj6ZiC5QbLN79kFddabLqMYknWN0CFZ 8lIFAfULSMOI1RxSOhoJ6kwpYxWjRuNBZNYqWuZ63dfFAqAVQsOLH3JHMhTs1LFUZxZ1MsnwIjbDabcq DkACRlVCBZOA3QSEkopjJxpKOkeAkbFJ15lUwbJF0CAr3EWxBpDO7tzd6CvURrFu3NYMH2EY8CTARjWB FoTSXmJPR8GPPxVjRgPPedFJNjHAUvKMM3JMUwCAUd NS0YMiGbOSIhJpksFuObJUQwTVDnaq7LBOZxQUVyPQjnSoNwKPJtBRXyZPdkMBOiEMEqOKZ9GPBfMOVw XO0EPlOzSEYgCHJxLEliICKcLKXreo5VQOBhEECvOmJiZHLmMIOdSIHgSHsnDWBvVXD0EgM0TLInVFRk FC2HBjIrXGCbQDQ2SuAyEGNeQXTsik9BVRVrXZInIX V7KtStZUDsKBNnGBrqQZWlQIL3QzPnBVRdDVShJI4YYuEqIMNoALS2XyKuSZEyHULzqk2PZLLfWVQgLH bnOUBeTYVuLZJvCWfgYBVyIFS9WUx0DUByLQKkKP2LAjBbCWFpCQW9JMYdTYPsHYMjzv9YFRUcJBTjEq hkZvXjUGHpXCUoXFwqLDXwWKF9XBP9VJVpUGJtEB5G TcPuRGHoKaUqCUTpPWLiVWAwnf6OICNfCVOnRLYlXzSfPRQvRUQhXRtvHSAwKVLeFyE8YAXpRKEzAJ3M MgIdAFEaWwH9IjNqHPBqPHOmgm5YJUVnIPBwXPp6QsCmRMEcBSJiVBcyAGKpVKWsVuK8VFPpWJPfAO7V JqDhLQInEdC9ECzyZSIhVPHrju5PZKNqYBLzDkQ8Pk KtCGCzDAVfMUpqHDJzTJL6ACR4TORqRDRhDG2XKwXmHUOuOwUgAXIfPITfCKHnvz5VYLCyCOYjOINmTw UxMQBfFBOiTEzpTEKvHII7ENQcCFJlTOLuSF1VWmCeDDIbLjRuNogkYWHhWUXetn0NCPTjGEFoHcT3UK JbWKCnEEAtDQxoXEFkIYU1OEk4ISExSVTdLI4DKmWy JVOgJaX5XtUoLYEbLCDacy6NTVPyHZZaQtV5FtDoWMMiDTZlJDgvCTMzQBM2WFW9UMNkOYKwBR7WNrOv URUoLpntQBKxYXUyERLssy0XIAFuKVBxTJA4IaZqWXXhKPLnXFalDXZjRGQ7NMO3ZRCqRNFlYM1DJjBb SNHbGTZqYtDjKWMoCSLnfq9QGOJwGGO2CJW9WQUwIC EeUNGiNWcrQHWgOUTwWti4VPVpKZEcRO8ZCqJuSXEyWLC0XnDuUKXrIKQomo1JNDXeGBT9HWt3HCXsTO VjLZYsGMaoMPMxJPDoWHH9WZPtJMTfNG4FJaBeCOpjUFNPMvr2GQloF2a7GTK8YC0ST2Mbu2EoCLOqBE PYBWnoQE8yyzOoWCTaDp1JQ6rUYuu3JWyxRjniSdV1 YzXfHEJsOHHeEcFtOWF3VLz9YSZbIR0rUXIwDBMrLATpCZGiCkUxSjPvAdAuZOT9RxBfEXHqNqB3IvGt TB1MNn5EDjM8OZA7aMCmQs3OIIZwUbYIRnRaHR4XSZx= ID Date Data Source [id number] 12/04/2020 11:17:51 AM [facility] Name Value Range Interpretation Code Description Data Elizabeth rce(s) Supporting Document(s) Consultation [facility] GZVSNg1tTbZWHzBs50/MTYtnTPHia4RpKLwiKZn4BWslRKYkK9WsXGU9iQ8lQBK2KHkMRbBjBdIcZTT7 lbm [file] pPYpwrJGl0liu3E3POedSU1l/aGQp8CXDmIWqBq7PTk6ZIlf6b5i211Q47s231EqZhH/Rn Emergency++O0WFG8WH [file] SUPERVISOR CORDUROY CUTTING+Bv6WLMMuQZk6K5J2VCUeOYd5N0CCS8DKXTHaNLxaZYgtLNIlQKi3E8Y1PGQnD2EZM0Zlacatph5+ GX0HI69QMUAwIOi3F7P9jBFoY3Y4tKgZvOP5NW2VMS 2BaIy6jDZzhU0+LK2LE1QBExWyOAq7W0G4pDYbA5K6pOyThNV3HV8KVC0TjKKyRTKmgaAwNo9rU1AAOP lCLwMXOTL3SO2TwMQuHL6YuNCLC9McrMAdIt9vUCprsXZxkT3vAo6hSBrjRC7XGqHUFWiDOIU0BU6HgS UjZP8MhFKQQ7SfpYFeLs2iRZvqaVKqaq6+FM6BIBEy Lw8IBg7+CTiqrrJjFymMEfO8LTJgh5NaXVu3UU8URR0lzCebIMC9Iv5WuKN0rEWcS7nEOU7KkLSxO25t sYKkRFJaDo1WQtR3ckIxjP5AFN92lPUqu7M8EQZfN9bjGDlbs65qUXkiQPsRQK5bRTZFTZxiAGyzDXK1 OnUgyczrZGPpWh2YAkQuDNi4cI9ogUQ5XJZ4HhjziU IpPWemXfHiSeWbInN2cZcaixx9WWmoSQ0kYDsvtwhzISIjUjb+HLzlQZQsWUCoCmiJVTRoxU2vjtG2vy OsURdxrHPvXu9wh0n6ScfuPf6zOw6mVGk6YrIaPtSiFMZfNr7sqK17FYytsfXlCc0GAcEmKAH1O3PlZt pSREY+MSayQZzexVn6gRDeMJCqFa5XXLIrJEWpYLDt ICAgICAgICAgICAgICAgICAgICAgICAgICAgICAgICAgICAgICAgICAgICAgICAgICAgICAgICAgICAg XJOhKEQhUWPgNNUvIKQzQHLsTGCrFKKaLNRhBEZbGX0XRTXdJAAyZMMePXInGHQwVORgNMGvIQElEXJz ICAgICAgICAgICAgICAgICAgICAgICAgICAgICAgIC DjBSZxVUVsWZXpMTDzJHWeHXKpMIYdNFVqEVAoLPUqNUIeZOSkNKCcYD7BVSNwLURhEBTpGAIsXCViSZ AgICAgICAgICAgICAgICAgICAgICAgICAgICAgICAgICAgICAgICAgICAgICAgICAgICAgICAgICAgIC AxXBOiGCRsQGAqCDIpSNMnIEQnJWRmSB4USLLiWIOb ICAgICAgICAgICAgICAgICAgICAgICAgICAgICAgICAgICAgICAgICAgICAgICAgICAgICAgICAgICAg YUFqPLFfZMJpBFGjCUUyHHTgSPQiHNDdSSJwQAGkCOVaEB8OBAQiHMCfRKCqKLAqOAKuBWIeEJGaSGVz ICAgICAgICAgICAgICAgICAgICAgICAgICAgICAgIC MfQKWuJPEaDTFbDDLkCJRdLYYiHUGaQPCrMSFnADSdTSSlOVAjCLLsLKFqGE8CVXDtAAGoPQKaSSYvAJ AgICAgICAgICAgICAgICAgICAgICAgICAgICAgICAgICAgICAgICAgICAgICAgICAgICAgICAgICAgIC QwEEZfISUpCDShTTViLEXuPCBiLIQrUTXvBR4IFECv ICAgICAgICAgICAgICAgICAgICAgICAgICAgICAgICAgICAgICAgICAgICAgICAgICAgICAgICAgICAg LWQiFSAqIXMlJMYwNWBdNFKaYBGtONLcCUYjNJSaOAVhLMVgNL0ZQPUkZIHlYGNaWVIiLACoQZIrBFWo ICAgICAgICAgICAgICAgICAgICAgICAgICAgICAgIC RuEROmROQqYEJzRYXhEUWqFAJpMVOyAMVhTAOmRFEaIPRtXJLiTPYgYJSnDUTmYF3ZLVYbPWQmYAHjRJ AgICAgICAgICAgICAgICAgICAgICAgICAgICAgICAgICAgICAgICAgICAgICAgICAgICAgICAgICAgIC QcOHDfNJMgPPAeKPRzFVMySIKaUHLfLHCrCNPuZO4O ICAgICAgICAgICAgICAgICAgICAgICAgICAgICAgICAgICAgICAgICAgICAgICAgICAgICAgICAgICAg JJAjBPTcZJDwYBMsQIXaWAZsDQUbQRNlRKZrFCLqADGfORDoFOTbVP8YJL87mBXyg3B8CTHnLL9xuoh/ Zb4CGUkoymXogPXuTL1CZaBsWJ7dqv5WXhVwNJ8qnp 1QPHtAKdZyL1A1oHSfMZGdFVDGHbDlY47yLFbjFr70KZliOOOsLmHuIRu8Us8XDkZfT4zgMRBsPyC6AV EjUaF1FMHfNgTzOVRoMABdUMDoGDFUCOA0NIWlXaXmWkZqIVFzEPdcBNOUHHYuJPHnIhTkSZwnFI8Bf3 EnsAG6QVv+As5HFZ1qx9WpMUzaAkGoZL1loe3MKZvR ApCaD3BydrD3ZRE4JUUcRs2LPHVtOMWbnNXfGQKuCBTELxJvT1GyaN82YBUDXq5+DQplbmRvYmoNCjM4 RQFql6CjONq7ZJ7VIQUaDBm3oZMbM31wt1KgxQKbDcatBJffBEIAXY6sP0ulBQoyAB8QCZY7EKMoJFga OhBjNRFyKod7LMYJEWnYXzUpX1Fxl7GjAqT0JJLwSj ScDVfcGVNnKnY6YV09xVccZY0FOSMvRRXtAZ12PXK1FIIpMv3PNv9AAuAkNT2ksy3PNiEgLY0ptr7TAN nXZrZiV1P4jBIjG6Qjjt69CX1LnGN4tAQnGI9MnU2kWI8Cr0WuTLVsPmOdTFPzVGQyRMThUSNqSnFuCV 7AIIPqTwXilSRjPET9RVL1PvMcOWVnNmXcMJOZBaPi Z7CaIFmvDwBwVVQQFJ2ZMtnhFXAkA2OMAOnLLX1VK3mYH0ROIq7UGQ7AIQFWO8sQW9pTF0sOFJquXP0O VVApID4+VR0UDu4EUdHoDQ0xqy3ECsgdOBImDecOQsd0IKtaJB0ShABbJ0TbkETpc0hJKnGoM4VCXLG7 WWAfTn6BIIDbSsGtLZAeYZuyGX9pHRIdWYZVvHvvxk H1MC4ZYX8rvmNvGI0NIgQaHy9bQv9PCkCyR8ZpL5XtYFIuGSEFQJuaWI1YHFtbLK9hJT4Di2IRdPHmhN 5cdr9TKZSnDZHdAfhgdm6THhdvB5C3hPaqMYScUdjqWFKIWJiuMX9VHHQhLDC6UHUbXsJoHCLMXaUaB6 6mPI9EI8Lsv24tWnU4HBYtHnMbQVkuBM86vXcecwFu rHRbeEuhGR4AAx1+QBtdzcQuCquJYqftTUGSQeZfDOEJCnMiPXIqEDYbJYHbBxU2KgOpBc7VWSBkSRPz UEAbBbYoFXRvIXJjCDexDKZsLQS4UHT0WACeTHLhBX3WYuGhTRPmETH9EGTcLRRvKEUbdm1WJZGfUZPj LRJ4TlWqWQOfJVMyEHuuFTJkTYC8UWsqTCXrLJTgSJ 6IMpRcSTTnVTJzEUWhUUGgCTCydf2WGPOtIQCaRJUaJHZvBBIsVGXiLBvfUWLbFQC1FST1DOSiNXZgPQ 8JZfKdBJDcGSx6TCnvIBEfOWIcyi4CPAGoHVCpFSXqNRHtLHYvYAPnQCqaJIDqJWRcZyKuTBStGRZoAE 5PElCmIQBpENZ4QiRpOUUzQXSjqn0SNAGbKYOxAKu5 PIFxLFJzRSDyBIgxMJZhYHT0DzOdYYPpUHZqDF2QSuUiTRPnHWy1DmrwMFGzBARigd7LGTSrVSThLUU1 AyFtYTKdRFQuJWtqPFRaIOZlXiKlPEVxHLHhHN5YFdRhFDNgXpE5WOItDNTvRXIxhh8ZUAWpDYTkUNY6 AZEfSUHfQEEqKMzxIKNuTSB6JYF0NTSxIUReKA9ELd MlHPXtRnhfNJFiMTPgLXRxws9UGCMpPTSeBSYjVWCuEVQwPGKfYRdfTPOeNDW0LMa7RORgKSVyJQ1LFt FsCPWlFalkZLZqYYKqJFLony6LCUAqRATxZXS9LODbUKTjDVRmRNeoTDLuZLF1AINlVYTzMFYgGM8CKv NvJZDcQdx3GuApLRRpCZEdyy9DCTVsRSWiAVI5YFXf IGFxPJLsGKboCYHhHHRgCCa3GEFvVNHcLT7ULbRfBPYrEyHvGdSeZVKwXQMjhk1AVOSrWKB8SNqgWrEr OQZfHZZvIMebWJGuPIN1TMSjEMVsCJFlZR4PGoTlQJBlZPrnRQKaKDDqMXGkev6EGYTzQJT7HUv0GTIf YVQjEHRzUGxwYJSsJSQ1RNs2YNQhPEOdFO8RHwRmSK IxUWUzCYDrVKAxFWMiqc1OIOCwMGK6RGziUHRxUEWyTDJvDEnoURCtGMNtBQtnPEFqXFQjSG8HDeEbBM JoFJHfILwvYGQzKUYmlt4CvGNymRfcup3KMQoDGc6SvOyxQQVuJZwpDe5wcAAeGRWpWXCQLo0MkaDbTR IkBWXTTQgoASDtFRF3DKAnOxz3OWNdNLg5JKHwYCXz OVcjAWG4ZGI9O0BuAqD7OGTzHXSpDBX9OuZ2GZLaTbS4UoWvJPCiNlH4Qbo6MBZ+OX9lLOx+Fb6Dl8Vr fvX2oyUbLJf2KmV9PP1PKAVEV9JCNl== ID Date Data Source [id number] 12/04/2020 09:35:48 AM [facility] Name Value Range Interpretation Code Description Data Elizabeth rce(s) Supporting Document(s) [facility] JXLSXm0jXmCACnPhs6DyNaRtDFEuRH5ybol6S3R6wYZrV9CbuEIzg8amM9DgQ3CkQURdZVRAWU6TgVKc jb2 [file] educational diagnostician/lirX+m4p9G95U8xjBjNX7T3s4TTPFCRhGLbmcd NvYdVe4pWU376W2/sY22XAn0fMO4yA8P9/mSl6/BLIxHbQRBZjbt4wbWzi/A2D+c4/RhcDzmkw59GbRC +wAE2dZkgOVsmQjT335pu0rBj4Ru5DJbAFs9HsKon8CAA9MvFKo+YAhRlJSC70xo9j8T4E7vaqd6uKmy 5l5I960BzJaSm8N54jI54xE44tJ22vZ7oOd4sO5dt6 T3JE4k9KOK9Zlglt135ZMxfJSbg/GyW7+7+Lv8kxteornj5neG9oxtho3cfloRY1llToo56lKQc5qLEv zT65MM+zQb5snI0g3ody26dmllYk3rj6761DQDFeh3E+tWVq8Jhlj4rVfcot/k4xFkJHMzjSmduLOyN9 13w6Y9yJ0Y5/pJ4k0c9RJ+r6s7NoW2s1Qv+wyvhXuk 2A3CbuhmlT76Vm0Hw2dSZU+vpXe/FxT9ZA0W+CkA8kPXIQ9V1QuO4wHLPKpKTumc5y2JyuKt9pyM2jIn Ev3iTt3t88fe0W67rzmA58mIx2j2pnr3h72r6zs8eEvBrHoKlbb4o4LXi7gIgnMWpMbn6HoSkef1hyr9 b4l5wrm7ohh2bgc8mgo3ZjD3j7HlmJiJ7qXZH8N46i AkXr4bEe8q51qn7J13ptlp5aCp08qs16uk43ye47mh89kt1+nts8cZiQ+u2fFr7NsEdNj2sCScd/UvpX vfBnbZAVkE76uQIz7K0XF1xLjhDvSxoepY2M9y/ZxOqFygn65xp5uiexwMULm9sGGC/je/6FH83tpos0 wyk0hpc7crK/6Af8G/4N/w7+v/HAY3fd0ErTaBxkQ/ wD/gV/gV/gn/hB/wZyE0AH2QH+AP+Aa9B47AToFkCT+62Mj6Os2I/7Qd5ck6fIXbrTg++DX4M20E/hPv 0RXnawy+Zm1//DOu1OKvmr/EW9sL/zZi6b7EqM/29oyC7qO7Q47K/5p0p2j8uyrtZZ9wXMF4wdgm5/mb E+9O/6k5qho7H/4Tb+793p4gtfkfZR2wINfk3WlCp1 /Lj+/Qo123b8o3L1o57/b2XQp1e6+Nl0uV7S/8SM2Jb0G/hleVy7k6mh28+D0DOWmVdK3M+j4728G8Ix TbSX9M6ugqo8ck997Aj49X+Af8Cr/Tq7uiL94FtH6nUU+1HL8/4VSkFEK7NVkrgCSf9eaCv6//fh5swy /wC/wD/kSOanUa70LZ89o21tGMe4Fgbvv/8b6/wf3d mwub9rWvBi/u8fddoYjKKh+nE+YD7A6JE/Fku/z2NiYBL/7x919Kjzd/oPcSyTahiINvwmROter1jQq6 g3/zmwl/ZeJ6pRXHZA/mFxMi8/H1OBREwJzacM+8fwTkFxL+4o1sp+szGGY29Wix3n7v833wtR8v2/Snow QtSq04/4P4PPv/wgsM8hxmL0iTkG27mPn/aWvz/x1n cRPvE+p38+30jwDxn/3flEkKs0F7Mgu77/dDLar02H2Cb+j8z3Ld+vIxTn5+VF2gcdivL43Ml6hL8kv7 6MUH3O+HSM9Crfhnr2D58aOp5eQo4/++MuNPUbK52bZt1hH/4F/4Z/f/aP9rPB1e/OxxC+2wK/wD/gH/ Drc4+oJX1Py3Xm5Ne1tn8i6ERycR/gbsOPeAfiHYh3 7QvT28W4/AK/wD/gH/Ar/Ar/hH/Cb/Ab/KwEQu8nCoF1hokR3TpsBmB3Tr5FsKTcAlJ4Yo6HgACrHzL2 Uv5ZvUOxAdBu+juzNZRJ8wo83+5OiASr26tQ5DnEmwFu2SjRUs/glgzxpCkwx5m17lW3/AP+Ab/Cr/DP z227MpS51/3GR9IANG4024dM6lg3t2+efdA90f76gQ RPvFtr+/Y/R1/t+u73yxzYUT2J/xq2aJXrda26yeP78obGPX624gh/jO7ShWzD/k+8nwHh3/xqwd/2zO 6pT595B8+1rvcRL025UK7FM12/8u6hEX3s/lnyN+x5Af0dRtGf3k1Ue12sdtXcnRQ81he6V296t48y35 Iu0vk7N/4Bv+L0axOVb04XfftrZ+xeZ9i9/kC8/ztX W2KwN36HJItsNRHYCCmdXrtQn/z/jNyyVmM11x2RR8kHGsTDrWUm/VXrk/6qNUx/1fqnv+o5xo5l6vKa 1iWY+3jg/cuj6xkC+ShgPkp/1e0n/zK9VtKAc3vKD5wHyw6/Vf2l/FX1o/GO8rrAC8V/DJiPAuaj+J4X Ip75SsF8kYdKWi/a9gnNmcvt6ZXy7dS8aJA0elLfFM ujHnyO6a42hpe/Fb00vT22LkhzZ/Nv+PkDj3PFPX06/7Vq0mVYEFg5/d46wyv33/4bXN7y+4XMEPk bowKXGYJ59kD7xjOfOQJ1/9EwX1bRdj2v9bS9TcrsNX5w/1+efs7DA++5Yey66zx/63wXXu+Z6R5ndzz emhZ4MurhX6R659wARv+K7D0gutzwhOp1sfT7gN/ir C/7qtr+S+ryw71ftgP1U/sF7Rf16a/YxlO4C28octupL7ya7/iZCR4mo3Onm11jq8UI1BqnpfC4h2WBV b038Fv1rmD2KnA4K1uN5OpTuVkjxsetdgP6B4v/A/JJ9LoH9QW4y/z68Yr5z/g2vw/5NeW2N85wz/irc 3/JX/W+V0wImX4hklx7N/mr+Yv7puJ8N2/X8q/Xv3+ d5345nE/Pv7/XyV/EebY4J7xzp3/D697x/7Xv+aKdvnuBbOg9jqN8fewNv4/XW6+gNm8EozL1Iz+p/X3 j9fq9X/mr+/V2Xw/U6XK9/+H5hzH8A2+fbiB7S09F3UzscjX9k6ZnV3ckdK/B6wPeE++toeo1l64I6W/ mr+gkc7SEf+tSY12w4xNi2iE8nbcZbPs29xp5wz9/B 67/rrVxHnur/+8g73cw8+7XeV52YeB7q0Joh2+/19Ffvv+V3Vc0ukV2J9brqY1vz0WVV3fFhW0hs6LB1 4eHqJtpunHsRvO3X044/SgkgAYmlT243aum//y9tB9v1xxboOq/obtNpPu8jyH8lzsIxMe/28p3eUT+t 119Lx0c8EE+1+u8jB07wMzZ/xlI5uQznzN8DOXQFzX qmeko0cu/N43grnV7b3lwl5794ffKQqZUeJq/IkY8TapM/T+J2XBnkP3dT27tnnHhU4ry1t/D86b0mSH 239xnL46RMXkybSAEMCNZqsr32Rfpe+f7LTJmUfUfHbuRiYjEK0H3YeLAQS7JPc4p9U1lmE29iv+F/h+ +/SURN0OjrtqdqBTtra3MJPEACzmaVWXymeRJBgfqJ 2z22kgVUGIf5vQsdwbKrAhfZJSmXWvESfHRMLOSvDtVb6V5Zdf1oy4iq6S7OFWSyDdRaIcDSwZLp4WoU htNrzg9o31siVfBqOAV0BE/WnIb/pRB2N/+fZ/ubw+uZeoep2RAGjalvLW3/bVzWd6h9plC+Zz2KWKqw +jm3M9/qC88GbVr+oGw3i0oq6zsLr5Wqr6HW3jRcON 9HiHNJaMd9fk2BwzbP4yp6b+P7P69CSbUe5/Q2GY+V5+c7bbHy+Uopq2qena/bF77y9WuPqutTTjGCu6 6n5Oz0L8mPpc1jv58FZz+P3bU/AIQnj7VkK7f56awnhhVJgv4dzx8DUyqlZ6gGdV0OMmXOmTKGP9Ut40 XUOXkIkCgSRYJjohsSR+JIDpKDJJAEkovkAjnPgwGS eJWqYA1JlthW18IO75RQcqSanCH5x78Zi7UkfPRCsYME67VGSPtRxmFWwoQCLdQbZNI5QGWzWIYFqD/x +d46/K8OiSXWfHRlaFogFB9QhPejE0j8qZBT5u1rI26kwr97m/2SSA4ctAsHTVQZcGnNWczxG5sXpLrC /3BUc6FAU3R+uTeHux2eWMvJSeA3aE90LWLduJ+AJD DakxE83v8/Fl4+nGgoHRhnav862g4uSZ0fx7KrC9W1DcKMsmcggj74l6fBw7a3n8oq2kz7H3ycjePFRS kTwmjQ51nT9sl5DMfT9wbuWZeFJ5qN1+xfUInm/rHMNEeTWvpsknNjDfirFj/Li61a/fugz1o22x6O2T pOLtuFQgTwC7hkQIKMXJiuORLU8GlYlDDf50yMXhOR 2mPHDd3IQ61T33m/uTFj776Fbni8P13m5Th3xLR8e1VZCRrIqid2+sqK5jjqmX0xb35qVlaVtLn5k3Wo 0zHWhueFtb/dr52Tj951VT42KvhL9MM3QPu4OzT+BvIlteqA+zd6fzb9ek1AT0f281LGicHYJL7MzFmL iUu+9EcdS5+xvisMG7owCipvhGfpnMOSWHArUzlKiM rZ7a5hKCdNFoRGROUCEtMwYAjHCALLQLVI1BAOF+TpcwjwPaiBogaGGhhqYKiBoQaGGhhqYKiBoQaGGh n5tVvjZpEUK+ZZTkDJoIXjEPtbsDE9aFN+caFPXOgTF/qLjH4wSFcPZvEhN7enOch0kHZ+caFPXOgTF/ oWxV3ocU8i3ZPJ+mXLKsOjC7heAew5wLJ+caFPzNPk 77ncp4y/QJAIEkWiSAyJIXEkjqTyB/11Kn/wnSCfJ/5IKePADjXYD0mKDQM8LjtNDBdCiNWgFcjxw7ZZ kAgSRaJIDH+U8o6kYM3dmcsJX5aziSW3rMkZZ5o3+C7JR8gF+YNV2cP+rTternXAfXKgJZIOPINx59HX xAkMiSFx/DTHTztIUIOLGtxAcpHcj+SpcAg+dfJMOA GZzH9ndiZsQGLOTUFkSeLuERaSHpgOsdt95yC1KYA1CY7FZat9jAdDYiMXpIUe1Ji+THKd/YYAiSJR/D TDTzMkjsSRHCSoAeYTN+YTN+YTd+KBD3viZlc0LTwXUiZPSDUQCTGFsTjVE1KWLPllORcFg74gtQFvgk WfAGXOEBYVCN6IIZMFKKRUcx3x1PqI+5UpTqQvR3V2 [file] UGEMc6flh+SRIKANTH/HxxgOcnAj4ZKdt9+k1pVngaN5K+Qb i4+gWpHueV8NtbRx3w4zTmSanyaP409Pz9B1a/Px6AgtbTs7lPhaCr0+ko+iLubCm6LRvaV4LkzdG4HR 43jt8Ax48VbuO53tYev+yEknT24qqeiaj4Z/oS+ILl1QIv7aE8+fNj/1GBR5AEHIOAc7+4K1AvR9QZM9 1B9QOc4+zdYo6soaIn1f0eMU3a0qyhq0AFHwU6C2uC u8SJJYq+8RiHS+zqhBDQTVhBGdm7Qrllc2eXg2DPKD6OsB6sS3FXRWXORF3OvmA/bbx8TsqI5lb96Bqp oFbVoj7VklT/4Ggf6d1rwnChacx4IzdV0ii90Ypnt9he+5EkQS2eS+29qmEFEiCutUvXMhDfMt+VjK8M mSyrHs2wJ6rN2m7R7kE1xDYsFIk5z0iKjsPUmsaGUd n9VPWABTKLg2XxFP+yzmlzBfDoIYGSKKcLSHMBzFVqsL2wgOdOaO51N9BJ8VpYX3dFAL6GwPHL2o6PEB Ya02ujWEL8tSxJTA0FyVNZ8m3ZAPGv73bpYUI9gJzDYAbU+cJl8uAwR4g/TbiFRKJPVCWOOLyWPS3yNx A/WVCDIw7Az2Tbqhe79bW41LHhJPVYOMwJDeyBes3C xp6PARL37aSjXY8w5GebKUWD1sZO1+ah8DYIEnGHjNG4J7lAmYBlC/FGuh+Qh8pQadBdTCx7pMf+Uq5P HdxCGhaOJQHULDoCMmInxFrYqHXqA7NzPtPCOV9IooG71HdU5WiVjFVWP0DQzZpCHrYYj0ZHpImZTaVG x6PYyJbHFNU24oZTkVzVAnFXq0NYvWfFEfCZn8fIvF aFIuGHd4pOqCcKPgCBq7lCfIbNOpFNh9zXzMjBE5cHhOpJQytd0lEyroohE3IY0ZUT+Sxw0NJv4JKvBh yMYAKH4YJrJKHAW5hxpowkR8LCwUHWGb56pBVhtfkwYT8wFEd1+WFh/VElYHrjF0IDwVmY8Wy7+lBje4 Xp0klEnRHva6OXo8kJQpcUZHuZ850RdsOt2L1Dfhgc JfsSYOThzNwubmBSin5PyHEJdfr6zmh9lds7ZCi6VBT9PDvVmK1VD9GtznKeMUJCwQOEXElTLclmoXBB AnyhU9mHoNEhNHgBOX5URMlzFDCcG3bQX/0egnFh/RGadNTBaITxY0aG6/0hdvsb2GzT2k0eDcJh6htm Q7a/Ba1LKcok3mqWI8+wb5IeqEYHGnw7AqseXgpDfv +Vg0+WpcQa8wJk9w+Fh2qD/6XBVz7GA1QUUsm7biA5vTU6WHghUszidwl4WA1oiNJWnt+LhgzEWT2tXh lXGhHFP3Iy7DRVjN6F34phUQra2/EzFIFu0fvmY5T/TMrIvo4baRTdjBEpLn0mX0UIxM9dLqAujuNI7X cyEhR7hUcDTnX/3f3nws+aSCiuMct1IAS6dRL0Zi2S DtU0f/RC0+svsvwsmw5hK1HgJKRDyUDN6M3hO/MlgMkjMXtiYLASfDRi5GT++8+Kt8MCWSIMFxymnSBH Tr8yOyIfSgoyeOpsi/2G4ucR4vh0twdxsw1+3hy3PFinK40l4CZe+xjszbeuY1g/Ov1E0XbJ+YETEiyD KAN1iC1bwYPZW+yfaosILkBIxDjIxufjGYd0UQW15l +Tg4fTlvINIuELWsrbkmIMubiswKmP8Kh52tcaDnf7FzzTkFcsIvvFmSEfjp5aY3LpCmBuwdz06Uziwm FaFNPpZKniQfSwVyk4+bgvsDn2SvIb+87ih2oxEuT1bUcB31oul0DXbarnkT5aAUddFJd8S0YZ+QdSz1 mcVLFx2xJB2+qirECrgIwnTUKJL1Rp+SrGOpnS/rWO jLmSKpm4UQnbD+WbvBbiAs9wk4wfm/gzX5PnMQfs2tD1a2AKt1uB2J6ZIyGCIBJMyeG/iJ+69xQ3if3g BkaXbWoYr2f0QYurGD8sOeScaI3mfijyGggKQdRyrShEr5ZuIsPIwk/cQtoLYv+Wm9Xg9dQdkhgVgE5M 44+MfClN6YTakBtbna2jUsY6iTSh9G3UHXHwYg9Edc wv+B5EW1MIQTas4hj3nC/bb6GQFIOL8LmS1oF/xf8IX/xs7iWjarRZ7TMcLJ0LcDnBxWIAQRwFHqSFxW EXEiTqQTwX/nfuG/c/DfhAAWB8297A7uFsS3rPa/vP2Xb+Tt794+/O+7jy6o7N9PZPrjgV014Ouw/+O7 v3/7/LP3H3/p9ou6RWK6tA726kqlNTMLBVJoauMk33 Uyf/axWm6en6oL2Xvc0FzuV1kv7b/59JbrS8/xz29f/+6rDx9/ePf2+btPP/vk49++ff3FZ9+8e//VZx /++Zfv3n/+5aetl030zi/y6w+cxyAa6o12E+8/e/fNx7/92YBuf/b+yJ/8untyZcuD+FuSodq5y1p6v/ nnD7/5/S173g9Bcz/2xZevb/3t27tP/vE/eZG0/aK3 371/618vO47+2pVGr12rxhrsle//+ekogb6z2HR0k+mTP/34r9//+Yfv/vD2P/797Zvv//jHb//85+++ /rGlq9618J/ff/lIw595QnQt/u7tTz++ya9k/ZdAiH6j/pGNt48//5shR+XP/anqP/zwq7/au1sKN0w3 gn/2Cav4efq9eJ8/+Q+D4wenZyf/WR4ryZDgymng/e r3nOk6qSnhOaS4n60KU+Hv+cN8j38cl1hiZTcvV6o/7l+/r8wnPfCZy8+f/Qe8D199+OzjL97++xdff/ jq3Rc/JIK0oRbQkJ23h5LrdsiUg4uF+Jkjv/4e8FfqIM6UPZyBxejUR0/9+Nd/ePvzt3/97ief/npMvW XTmvtFP/J3ydKq3fatW1/g796/ff/jX7/78//5mx+f H79N+tOPz9/+3Mnr55++sX96/9XbH/7t9du//9OPP//4nEv7f2/Pj3iwf/rwq3/08Hhx8LIb4PsF/SuT /jNHum5PDXkoQ1m0ej//GO1sfVMxgZ5+sAf73S/f//LD27f/97u//S3vgu3uy09+/PU//mAtqnJmb9Wz //7nf/z7d26456i/+t0P3/7xJ3d4/QT/5Nt/+/23f/ n+2x//6uGuR4z/059++Mje/wzfP/m3f/r9R+5crfe/x+zbf+Mfvvv9//rx+9+/jsDql6sOru+gkFK3Ec K1f/vyz1023nOpR/zm3c++Zo294rN//Saqc094+Ezd0j87N+X//5L7D4S+jdrbfvft//zuTd7+9K9vQv ME+9Sz5t/e3r1W/soyyuuoj9hut/e2l/MANSI+PL95++ e//R/BsI5oZe//j4k0++/VrR91yroJ8SWzAbmyx/hUgVBUixwrYgqCZhTN5KMK9tp8KuUnH8VANea7En OKtyBEa9lCXjNNivjwIzh1RlammhQ9Jpa6VwWmPzQESdGgIiZgx1PDOrHtW9aWWkZfEwLNGaH1AzDRZp NpA5OsGmLKGRUK4ELZHmqmFpPxPuPCM+GgFhMB9vpw cdTZSgx1EtUKgwHVqtJIAfQ1U2nUacXHVgW2FzrW89IISoP8YvaxG4BZC4CGBoXnTwYRRswACkGFPyVE I+EhOaIV0jxviuVMGho0NbTXquVPZ6xN7vIZoTBNFAGXiYDFkhBpT3g99nwwPPUDPiTYChEY0EpuNcnK imkaSepJHjCRX2DwPjXEVyHYmtJSG6ICZBGIEeLKWx WTVwUPCfV7WaqGpnPCwTGKYSZLlJQWixHtUez7C7WTUmtkJRGDGYW1NnJU7PZeNZEWVlNGizWQq9HUmk T4B6CdsbC7HqEJ0HZ8GjHJDaKVYLQQPleoGhHO4BbeMduH8dIAtRMESRKNiJYJtpCeT1f70qfhZXMQDa MPNhEVnjFVSrVQYzFUTnWGEdYREhODAqSZMbUE9HX4 PhMPGxYLTHNZS1b3RzUVKdldnrauqvCl0jkfVgJxu+LpngVIYob0MoJGgeA5U3aUXbA0GaH3AuTV0QfX PfYFbwOBCnOTArXQZiC182gtBqOY5+JK9bj4OwVnlgNAPFHHNgQATlYFKkFKC2UaAcVTHlQJOoIOEgRs F1KgLxSgATFYRzTBL1BPHwOSAdKJPqRAVdUAuzYJWd EIC5ZIs7PNKmZDHkWA7sZvBrPOTnNnOwPEGmHTTiWQBjvdKZREIrOEBbSYNgLHP4TXPvQGIxCHjfHOIt NHMeRPI0KDAoEHEwYL4bBgWsOLKjWONkFussOGQbASSolcAGOKZaZNClXLU2WxGjDAVnMJJaBUgdQTPl PLLdYpi6ABObCWAzDV3xNgCfIQDzJGP4FXktWHFvIB GskyAZGOQjEAAoXHYiUlGzZNBrUFJgZThaWSOrGDGdAqSjMKNpNUGsLH6yWfGgYDRpWUQ8CVToTAGtYD RgwwAXJXXvETBxJFu6FTOtLKZtBQVqFFbmQXBrJTXfQBG0EUGtJGHmJT6zDtWwOSMoATRaAQSrIATpIB YmubYASRZnEFIiYZG5JIKnOAZpHHQoDInsAQAoNWMp Upm6GJMlXANwME1vXvQdVJImDCX6BOIzAHRsGKHcybNTXSQeCVN6Zzl3HLNrRPJpLVIpMBdpCJCjPEMr YrP4XMKtISLaBS1gOhXgLGQrCUX5CqMmCFJyTUYrlvTMFNRcPMUaCMX0RbPsSSHbBDXfIKqaQJOuNQOt PUDwFSS1JYT1TBFeDbPyIDjtWRGVAIcMS8RtswWbYl CUW1xnPr6pQyCnVFTUD2Zpb9LeHYRvGLLGYm8+HiO0OOS6qMUwJiz4JTH5DfiiOWTXVv== ID Date Data Source [id number] 12/03/2020 06:34:33 PM [facility] Name Value Range Interpretation Code Description Data Elizabeth rce(s) Supporting Document(s) Color of Urine [facility] Clarity of Urine [facility] Specific gravity of Urine by Refractometry automated 1.031 1.003 -1.030 H [facility] pH of Urine by Automated test strip 6.0 5.0-8.0 [facility] Protein [Mass/volume] in Urine by Automated test strip Neg [facility] Glucose [Mass/volume] in Urine by Automated test strip Neg [facility] Ketones [Mass/volume] in Urine by Automated test strip Neg [facility] Bilirubin.total [Presence] in Urine by Automated test strip Negative [facility] Hemoglobin [Presence] in Urine by Automated test strip Neg [facility] Leukocyte esterase [Presence] in Urine by Automated test strip Negative [facility] Nitrite [Presence] in Urine by Automated test strip Negati ve [facility] Leukocytes [#/area] in Urine sediment by Automated count 0 /HPF 0 -5 [facility] Erythrocytes [#/area] in Urine sediment by Automated count 0 /HPF 0-3 [facility] ID Date Data Source [id number] 12/03/2020 04:59:[address] [facility] [address] ANGIOGRAPHY NECK [id number] RESULTInt erpreted by:Sri Son MDINDICATION: 40-year-old female, monocular vision loss and migraines.TECHNIQUE: Contiguous axial CT images of the head [...] to patient size were utilized for this examination.COMPARISON: CT head noncontrast from same date.FINDINGS: Non-enhanced CT head: There is no evidence of acute intracranial hemorrhage or large territorial infarct. There are no extraaxial fluid collections, mass effect or midline shift. The ventricles and basal cisterns appear normal.The imaged paranasal sinuses and mastoid air cells are clear. There are no depressed calvarial fractures.CTA Neck:GREAT VESSELS: The imaged three vessel aortic arch is patent. RIGHT INTERNAL CAROTID ARTERY: No hemodynamically significant diameter stenosis or dissection. LEFT INTERNAL CAROTID ARTERY: No hemodynamically significant diameter stenosis or dissection.VERTEBRAL ARTERIES: Patent extracranial segments without significant stenosis. No dissection. The vertebral arteries are codominant.OTHER: Respiratory motion limits evaluation of the lungs. No neck mass or suspicious lymph nodes. The visualized osseous structures are unremarkable.CTA Head: No large vessel occlusion or hemodynamically significant stenosis, aneurysm, dissection, or arteriovenous malformation. There is persistent origin of the left posterior cerebral artery. IMPRESSION: 1. Normal CTA head.2. Normal CTA neck.3. 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 The major arterial tree within the neck is patent.This document has been electronically signed by Deanna Maya MD on 12/03/2020 4:57 PM Name Value Range Interpretation Code Description Data Elizabeth rce(s) Supporting Document(s) ID Date Data Source [id number] 12/03/2020 04:59:[address] [facility] [address] ANGIOGRAPHY HEAD [id number] RESULTInt erpreted by:Sri Son MDINDICATION: 40-year-old female, monocular vision loss and migraines.TECHNIQUE: Contiguous axial CT images of the head [...] to patient size were utilized for this examination.COMPARISON: CT head noncontrast from same date.FINDINGS: Non-enhanced CT head: There is no evidence of acute intracranial hemorrhage or large territorial infarct. There are no extraaxial fluid collections, mass effect or midline shift. The ventricles and basal cisterns appear normal.The imaged paranasal sinuses and mastoid air cells are clear. There are no depressed calvarial fractures.CTA Neck:GREAT VESSELS: The imaged three vessel aortic arch is patent. RIGHT INTERNAL CAROTID ARTERY: No hemodynamically significant diameter stenosis or dissection. LEFT INTERNAL CAROTID ARTERY: No hemodynamically significant diameter stenosis or dissection.VERTEBRAL ARTERIES: Patent extracranial segments without significant stenosis. No dissection. The vertebral arteries are codominant.OTHER: Respiratory motion limits evaluation of the lungs. No neck mass or suspicious lymph nodes. The visualized osseous structures are unremarkable.CTA Head: No large vessel occlusion or hemodynamically significant stenosis, aneurysm, dissection, or arteriovenous malformation. There is persistent origin of the left posterior cerebral artery. IMPRESSION: 1. Normal CTA head.2. Normal CTA neck.3. 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 The major arterial tree within the neck is patent.This document has been electronically signed by Deanna Maya MD on 12/03/2020 4:57 PM Name Value Range Interpretation Code Description Data Elizabeth rce(s) Supporting Document(s) ID Date Data Source [id number] 12/03/2020 04:39:[address] [facility] [address] HEAD WITHOUT CONTRAST [id number] LTInterpreted by:MICHAEL Sonir Quraeshi, MDCLINICAL INDICATION: 40-year-old female, assess for stroke, left extremity weakness and headache.TECHNIQUE: Contiguous axial CT images of the head were acquired in 5 and reconstructed in 1.25mm slices from the base of the skull to the vertex without intravenous contrast administration. Images were viewed in brain, subdural and bone windows. Automated dose lowering techniques and/or adjustment according to patient size were utilized for this exam.COMPARISON: CT head dated 09/23/2019. FINDINGS: There is no evidence of acute intracranial hemorrhage or large territorial infarct. There are no extraaxial fluid collections, mass effect or midline shift. The ventricles and basal cisterns appear normal..The imaged paranasal sinuses and mastoid air cells are clear. There are no depressed calvarial fractures.IMPRESSION: No evidence of acute intracranial pathology Preliminary findings were discussed with Dr. Dumont at 2:34 PM on 12/03/2020This document has been electronically signed by Deanna Maya MD on 12/03/2020 4:36 PM Name Value Range Interpretation Code Description Data Elizabeth rce(s) Supporting Document(s) ID Date Data Source [id number] 12/03/2020 03:20:56 PM [facility] Name Value Range Interpretation Code Description Data Elizabeth rce(s) Supporting Document(s) Choriogonadotropin.beta subunit free [Units/volume] in Serum or Plasm a <5 [facility] (NOTE)Levels between 5 and 25 [IU]/L may indicate earlypregnancy and should be repeated after 48 hours. ID Date Data Source [id number] 12/03/2020 03:20:56 PM [facility] Name Value Range Interpretation Code Description Data Elizabeth rce(s) Supporting Document(s) Sodium [Moles/volume] in Blood 132 mmol/L 136-145 L [facility] Potassium [Moles/volume] in Blood 3.7 mmol/L 3.4-5.1 [facility] Chloride [Moles/volume] in Blood 99 mmol/L 98-107 [facility] Carbon dioxide, total [Moles/volume] in Blood 23 mmol/L 22-29 [facility] Calcium.ionized [Moles/volume] in Blood 1.18 mmol/L 1.13-1.32 [facility] Glucose [Mass/volume] in Blood 65 mg/dL 70-140 L [facility] Urea nitrogen [Mass/volume] in Blood 4 mg/dL 6-20 L [facility] Creatinine [Mass/volume] in Blood 1.0 mg/dL 0.50-0.90 [facility] Hematocrit [Volume Fraction] of Blood 39 % 36-45 [facility] Hemoglobin [Mass/volume] in Blood by calculation 13.3 g/dL 11.5-15.5 [facility] ID Date Data Source [id number] 12/03/2020 03:20:55 PM [facility] Name Value Range Interpretation Code Description Data Elizabeth rce(s) Supporting Document(s) pH of Venous blood 7.30 7.36-7.[address] [facility] Carbon dioxide [Partial pressure] in Venous blood 46 mmHg 40-45 H [facility] Oxygen [Partial pressure] in Venous blood 22 mmHg [facility] Base excess standard in Venous blood by calculation [facility] Oxygen saturation Calculated from oxygen partial pressure in Venous blood 31 % 60-85 L [facility] Lactate [Moles/volume] in Venous blood 0.8 mmol/L 0.5-2.2 [facility] Bicarbonate [Moles/volume] in Venous blood 24 mmol/L [facility] ID Date Data Source [id number] 12/03/2020 04:08:38 PM [facility] Name Value Range Interpretation Code Description Data Elizabeth rce(s) Supporting Document(s) Leukocytes [#/volume] in Blood by Automated count 12.1 10*3/uL 4-10 H [facility] Erythrocytes [#/volume] in Blood by Automated count 4.16 10*6/uL 4.1- 5.3 [facility] Hemoglobin [Mass/volume] in Blood 12.9 g/dL 11.5-15.5 [facility] Hematocrit [Volume Fraction] of Blood by Automated count 37.7 % 3 6-45 [facility] Erythrocyte mean corpuscular volume [Entitic volume] by Auto mated count 90.7 fL 80-96 [facility] Erythrocyte mean corpuscular hemoglobin [Entitic mass] by Automated count 31.0 pg 27-33 [facility] Erythrocyte mean corpuscular hemoglobin concentration [Mass/volume] by Automated count 34.2 g/dL 32.0[facility] width [Ratio] by Automated count 14.4 % 11.5-14.5 [facility] Platelets [#/volume] in Blood by Automated count 321 10*3/uL 150-400 [facility] Differential cell count method - Blood [facility] Neutrophils/100 leukocytes in Blood by Automated count 66 % [facility] Lymphocytes/100 leukocytes in Blood by Automated count 24 % [facility] Monocytes/100 leukocytes in Blood by Automated count 7 % [facility] Eosinophils/100 leukocytes in Blood by Automated count 2 % [facility] Basophils/100 leukocytes in Blood by Automated count 1 % [facility] Neutrophils [#/volume] in Blood by Automated count 8.09 10*3/uL 1.8-7 .0 H [facility] Lymphocytes [#/volume] in Blood by Automated count 2.93 10*3/uL 1.2-4 .0 [facility] Monocytes [#/volume] in Blood by Automated count 0.81 10*3/uL 0-0.8 H [facility] Eosinophils [#/volume] in Blood by Automated count 0.21 10*3/uL 0-0.5 [facility] Basophils [#/volume] in Blood by Automated count 0.10 10*3/uL 0-0.2 [facility] Nucleated erythrocytes/100 leukocytes [Ratio] in Blood by Automated count 0 /100{WBCs} 0-0 [facility] ID Date Data Source [id number] 12/03/2020 04:26:11 PM [facility] Name Value Range Interpretation Code Description Data Elizabeth rce(s) Supporting Document(s) Prothrombin time (PT) 12.3 s 12.5-14.9 L [facility] INR in Platelet poor plasma by Coagulation assay 0.91 [facility] Routine intensity oral anticoagulation I NR is typically 2.0-3.0. Target INR must be clinically individualized. ID Date Data Source [id number] 12/03/2020 04:31:06 PM [facility] Value Range Interpretation Code Description Data Elizabeth rce(s) Supporting Document(s) Bicarbonate [Moles/volume] in Serum 22 mmol/L 22-29 [facility] Chloride [Moles/volume] in Serum or Plasma 100 mmol/L 98-107 [facility] Creatinine [Mass/volume] in Serum or Plasma 0.89 mg/dL 0.50-0.90 [facility] Glucose [Mass/volume] in Serum or Plasma 59 mg/dL 70-140 L [facility] Potassium [Moles/volume] in Serum or Plasma 3.9 mmol/L 3.4-5.1 [facility] Hemolyzed Sodium [Moles/volume] in Serum or Plasma 129 mmol/L 136-145 L [facility] Urea nitrogen [Mass/volume] in Serum or Plasma 5 mg/dL 6-20 L [facility] Anion gap 3 in Serum or Plasma 7 mmol/L 8-15 L [facility] Osmolality of Serum or Plasma by calculation 263 mosm/kg 275-300 L [facility] Creatinine/Urea nitrogen [Mass Ratio] in Serum or Plasma 6 [facility] Calcium [Mass/volume] in Serum or Plasma 8.2 mg/dL 8.6-10.0 [facility] Glomerular filtration rate/1.73 sq M pre dicted among non-blacks [Volume Rate/Area] in Serum or Plasma by Creatinine-based formula (MDRD) 79 mL/min/1.73m2 >60 [facility] Glomerular filtration rate/1.73 sq M pre dicted among blacks [Volume Rate/Area] in Serum or Plasma by Creatinine-based formula (MDRD) >60 [facility] ID Date Data Source [id number] 12/03/2020 04:45:31 PM [facility] Name Value Range Interpretation Code Description Data Elizabeth rce(s) Supporting Document(s) Erythrocyte sedimentation rate 5 mm/hr <20 [facility] ID Date Data Source [id number] 11/25/2020 03:26:00 AM [facility] Name Value Range Interpretation Code Description Data Elizabeth rce(s) Supporting Document(s) SARS-CoV-2 & Flu A/B Specimen Source: Nasopharynx [facility] Patient Ethnicity: Unknown [facility] ADDITIONAL INFORMATIO N This PCR test is performed using the tremaine SARS-CoV-2 andInfluenza A/B assay ([employer] on [employer] / [employer], and it has received EmergencyUse Authorization (EUA) by the U.S. Food and DrugAdministration.Fact sheets for this Emergency Use Authorization (EUA)assay can be found at the following links:https://www.fda.gov/media/183272/download for HealthcareProvidershttps://www.fda.gov/media/872895/download for PatientsTest Performed by:[facility] [facility] [place] [address], [place], [place] [address]Tgo Director: Salvador Owens M.D. Ph.D.; CLIA# [id number] Patient Race: Unknown [facility] SARS CoV-2 RNA PCR Undetected Undetected Normal (appli es to non-numeric results) [facility] SARS-CoV-2 RNA absent. This result does not rule outCOVID-19 in the patient, as the sensitivity of the testdepends on the timing of the specimen collection and thequality of the specimen. Result should be correlated withpatient's history and clinical presentation. Influenza A RNA PCR Undetected Undetected Normal (appl ies to non-numeric results) [facility] Influenza A RNA absent. Influenza B RNA PCR Undetected Undetected Normal (appl ies to non-numeric results) [facility] Influenza B RNA absent.The above 6 shahbaz luigi were performed by [facility] Patient Engagement Systems ([id number]) ID Date Data Source [id number] 11/16/2020 07:37:00 PM [facility] PAGE: [address] [place], [place] [address] [place] [address] [facility] REC NUM: [id number] : 1980 Med Reconciliation Patient: MADHAVI MONTALVO Medication Reconciliation Report [facility] [id number] [place] [address] [phone], FRegistration Date/Time: 11/16/2020 19:37 Weight: 86.6 kgHeight/Length: 67 in.BMI: 29.9 ALLERGIES:Bupropion, Keflex, Latex, Levaquin, Lisinopril, Lunesta, Omeprazole, Sulfa Antibiotics, Trimethoprim The patient's Home Medications are listed below: Not obtained.The source(s) of the o riginal Home Medication information: Not obtained.The following Medications were given to the patient in the Emergency Department:Diphenhydramine [IVP] IVP 50 mg, administered: 20:50 11/16/2020Ketorolac [IVP] IVP 30 mg, administered: 22:13 11/16/2020eglan [IVP] IVP 10 mg, administered: 23:45 11/16/2020IV NS w/ bolus IV Fluids bolus 0, then 1000 mL/hr, administered: 23:40 11/16/2020Fioricet [PO] PO 1 tab, administered: 23:45 11/16/2020The following Medications were prescribed to the patient: None. Name Value Range Interpretation Code Description Data Elizabeth rce(s) Supporting Document(s) ID Date Data Source [id number] 11/16/2020 07:37:00 PM [facility] PAGE: [address] [place] [address] [id number] [place] [address] [facility] REC NUM: [id number] : 1980 Physician Discharge Report Clinical Report - Physicians/[facility] Department [address] [place] [id number] Patient: MADHAVI MONTALVO : F : 1980 Age: 40yArrival: 11/16/2020 19:37 Departure: 11/17/2020 01:16 Disposition: Discharge Weight:86.6 kg (S). Height/Length:67 inches (S). BMI:29.9 Time Seen: 21:30 11/16/2020. Arrived- By ambulance. Historian- patient. Supervisory Note: Documentation assistance provided by scribe. Information recorded by the scribe was done at my direction and has been reviewed and validated by me. Disposition decision: 00:27 11/17/2020. HISTORY OF PRESENT ILLNESSChief Complaint: HEADACHE. Is still present. This started 3 days ago. It has been constant. It is described as "pain". Described as a global headache. At its maximum, severity described as moderate. The patient has had photophobia. No associated nausea, numbness, weakness or vomiting. (40 year old pt presents to the ED for the complaint of a headache. Pt is coming from the [facility] with hx of chronic migraines, a brain injury, and has seen a neurologist in the past. Pt states for the last 3 days she has been experiencing a more severe headache than her usual. Pt also reports having mild neck stiffness and double vision. Denies any recent injuries. Pt also reports hx of seizures and is on Keppra, which she states will make her have suicidal thoughts but denies any intentions of acting on those thoughts. No fever, cough, N/V, abd pain, sore throat, weakness, or any other complaints at this time.). REVIEW OF SYSTEMSNo fever, sore throat, cough or abdominal pain. All other systems reviewed and are negative. PAGE: [address] [id number] [place] [address] [facility] REC NUM: [id number] : 1980 PAST HISTORYSee nurses notes. History of chronic headaches. No recent surgery. Problems:Hypertension.Fibromyalgia.Hyperthyroidism.Migraine Headache.Intelle ctual functioning disability.Arthritis.Bulimia.Depression.Anxiety Reaction. Allergies:Bupropion.Keflex.Latex.Levaquin.Lisinopril.Lunesta.Omeprazole.Sulfa Antibiotics.Trimethoprim. SOCIAL HISTORYFormer smoker. No alcohol use. ADDITIONAL NOTESThe nursing notes have been reviewed. PHYSICAL EXAMVital Signs: 11/17/2020 00:59 BP: 130/77. MAP: 94. HR: 60. RR: 18. O2 saturation: 100%. Temp: 98.2 F. Pain level now: 0/10.11/16/2020 20:01 BP: 140/82. MAP: 101. HR: 60. RR: 18. O2 saturation: 98%. Temp: 98.9 F. Pain level now: 10/10. Appearance: Alert. Patient in mild distress. Eyes: Pupils equal, round and reactive to light. Eyes normal inspection. ENT: Pharynx normal. Neck: Normal inspection. Neck supple. CVS: Normal heart rate and rhythm. Heart sounds normal. Respiratory: No respiratory distress. Painless inspiration. Breath sounds normal. Abdomen: Soft and nontender. Back: Normal inspection. Skin: Skin warm and dry. Normal skin color. No rash. Normal skin turgor. Extremities: Extremities exhibit normal ROM. No lower extremity edema. Neuro: Oriented X 3. Alert. Speech normal. Cranial nerves normal (as PAGE: [address] [place], [place] [address] [place] [address] [facility] REC NUM: [id number] : 1980 tested). No cerebellar findings. No motor deficit. No sensory deficit. LABS, X-RAYS, AND EKGLaboratory Tests: EGFR (CALCULATED): (BALAJI: 11/16/2020 20:47)( MsgRcvd 11/16/2020 21:12) Final results Test Result Flag Units (Reference)ESTIMATED GFR (CALCULATED) EGFR 80 >59 mL/min/1.73m2 EGFR, -SWISS 93 >59 mL/min/1.53t1Fqak: Persistent reduction for 3 months or more in an eGFR <60 mL/min/1.73m2 defines CKD. Patients with eGFR values >=60 mL/min/1.73m2 may also have CKD if evidence of persistent proteinuria is present. Additional information may be found at [email or web address]. CBC w Diff: (BALAJI: 11/16/2020 20:47)( MsgRcvd 11/16/2020 20:54) Final results Test Result Flag Units (Reference)WBC 8.4 x10E3/uL (4.3-10.9) RBC 4.12 x10E6/uL (3.80-5.30) HEMOGLOBIN 12.6 g/dl (11 .8-15.8) HEMATOCRIT 38.3 % (35.0-47.0) MCV 93.0 fl (82.0-98.0) MCH 30.6 pg (27.5-33.5) MCHC 32.9 g/dl (32.0-36.0) RDW 13.9 % (11.5-14.5) PLATELET COUNT 276 x10E3/uL (130-400) MPV 10.0 fl PAGE: [address] [place] [address] NUM: [id number] : 1980 (8.6-12.6) SEGMENTED NEUTROPHILS 55.7 % (44.0-74.0) LYMPHOCYTES 35.0 % (15.0-45.0) MONOCYTES 6.8 % (2.0-13.0) EOSINOPHILS 1.8 % (0.0-6.0) BASOPHILS 0.7 % (0.0-2.0) NEUTROPHIL ABSOLUTE 4.7 x10E3/uL (1.4-7.0) LYMPHOCYTES ABSOLUTE 2.9 x10E3/uL (1.0-3.4) MONOCYTE ABSOLUTE 0.6 x10E3/uL (0.2-1.0) EOSINOPHIL ABSOLUTE 0.2 x10E3/uL (0.0-0.5) BASOPHIL ABSOLUTE 0.1 x10E3/uL (0.0-0.2) Comprehensive Panel: (BALAJI: 11/16/2020 20:47)( MsgRcvd 11/16/2020 21:10) Final results Test Result Flag Units (Reference)GLUCOSE 97 mg/dl (70-100) BUN 18 mg/dl (4-18) CREATININE, SERUM 0.89 mg/dl (0.50-1.10) SODIUM 137 mmol/l (136-146) POTASSIUM 4.6 mmol/l (3.5-5.3) CHLORIDE 104 mmol/l (96-109) CARBON DIOXIDE 23 mmol/l (20-32) ALBUMIN 3.5 g/dl (3.5-5.0) PROTEIN, TOTAL 5.4 L g/dl (6.4-8.2) CALCIUM 8.5 mg/dl (8.4-10.4) ALKALINE PHOSPHATASE 56 U/l PAGE: [address] [place] [address] NUM: [id number] : 1980 (10-118) SGOT (AST) 14 U/l (3-40) SGPT (ALT) 15 U/l (7-50) BILIRUBIN, TOTAL 0.20 L mg/dl (0.30-1.20) BUN/CREATININE RATIO 20.2 H (6.0-20.0) GLOBULIN 1.9 L g/dl (2.3-3.5) ANION GAP 10.0 mmol/l (7.0-16.0) OSMOLALITY (CALCULATED) 276 L mos/kg (280-300) A/G RATIO 1.8 (1.0-2.0) CT Head wo IV Cont: (BALAJI: 11/16/2020 20:34)( MsgRcvd 11/16/2020 21:45) Final results Exam [id number] -- CT brain""Clinical History: Headache""Technique: Axial CT images of the brain were obtained. Multiplanar includingsagittal and coronal reformatted images are presented. CT imaging was performedutilizing dose reduction techniques including automated exposure control anditerative reconstruction technique.""Comparison: No relevant previous exams are available for comparison.""Contrast: No intravenous contrast was administered for the exam.""Findings:""""""Brain and Ventricles: There is no acute intracranial hemorrhage. Cortical sulcalpattern is symmetric and in the range of normal. There is normal zendejas-wh itematter differentiation. There is no infarct noted. There is no mass. There is nomass effect. There is no midline shift. The ventricles are normal in shape PAGE: [address] [place] [address] REC NUM: [id number] : 1980 andsize for patient age. No cerebellopontine angle lesion is seen. The IACs aresymmetric. There is no significant intracranial vascular calcification.""Extra-Axial Spaces: No subdural or epidural collections are noted.""Sella/Craniocervical Junction: There is no sellar or suprasellar lesion.Craniocervical junction is in the range of normal.""Visualized Paranasal Sinuses and Orbits: The included paranasal sinuses andmastoid air cells are well-aerated. No gross bulbar or retrobulbar pathology isnoted.""Calvarium: No gross osseous pathology is seen. There is no scalp hematoma orforeign body.""Impression: There is no acute intracranial pathology. There is no hemorrhage.There is no mass or mass effect. There is no territorial infarct seen.""Other findings as above.""As appropriate, post contrast CT of the brain or MRI would provide a moresensitive neural imaging assessment in the appropriate clinical setting.""""""""""""Electronically Signed By: KARLA PEARSON MARTINDate: 11/16/2020 21:43 HCG, Qual Serum: (BALAJI: 11/16/2020 20:47)( MsgRcvd 11/16/2020 21:10) Final results Test Result Flag Units (Reference), SERUM NEGATIVE (NEGATIVE) ACCULA SARS-COV-2: (BALAJI: 11/16/2020 19:48)( MsgRcvd 11/16/2020 21:21) Final results Test Result Flag Units (Reference)ACCULA SARS-COV-2 NEGATIVE PAGE: 7[facility] OJWKDC[address] [place] [address] [facility] NUM: [id number] : 1980 (NEGATIVE) Testing performed by nucleic acid amplification.This test has not been FDA cleared or approved. This test has beenauthorized by FDA under an Emergency Use Authorization (EUA). This test isonly authorized for the duration of the declaration that circumstancesexist justifying the authorization of emergency use of in vitro diagnostictests for detection and/or diagnosis of COVID-19 under Section 564(b)(1) ofthe Act, 21 U.S.C. 360bbb-3(b)(1), unless the authorization is terminatedor revoked sooner. Positive results are indicative of the presence jcLNGK-NsK-8 nucleic acid; clinical correlation with patient history andother diagnostic information is necessary to determine patient infectionstatus. Positive results do not rule out bacterial infection orco- infection with other viruses. . PROGRESS AND PROCEDURESCourse of Care: 00:20 Nov 17 2020. Symptoms better. Disposition: Discharged. CLINICAL IMPRESSIONAcute nontraumatic pain in the head. Migraine headache. Depression. INSTRUCTIONS(Drink plenty of fluids. Recommend that professor of social work at [employer] evaluate patient for depression - regarding follow up care and treatment.). Warnings: Further evaluation is necessary. GENERAL WARNINGS: Return or contact your physician immediately if your condition worsens or changes unexpectedly, if not improving as expected, or if other problems arise. Follow-up:Follow up with your doctor Neuro in [place] in seven days even if well. Call for the next available appointment. Reason for referral: evaluation and treatment. Understanding of the discharge instructions verbalized by patient. PAGE: 8[facility] [place] MADHAVI MONTALVO[address] [place] [address] [facility] REC NUM: [id number] : 1980 Follow-up with: Key Morrison MD, , , [facility], [address] [place] [address], [address]Tqksst up in two days even if well. Call for the next available appointment. Reason for referral: evaluation and treatment. (Electronically signed by VIDAL MELENDEZ MD 11/18/2020 02:34) Addenda for MADHAVI MONTALVO VisitID: [id number] Date: 11/16/2020 11/16/2020 21:29I, leigha Underwood, documenting for and in the presense of Dr. Melendez. The patient was evaluated during the global COVID-19 pandemic, and that diagnosis was suspected/considered upon their initial presentation. Their evaluation, treatment and testing was consistent with current guidelines for patients who present with complaints or symptoms that may be related to COVID- 19.(Electronically signed by SEBASTIAN MATA - 11/16/2020 21:29) 11/20/2020 13:57Levetiracetam 9.4 faxed to the [facility] fax # [phone](Electronically signed by KACEY SKELTON RN - 11/20/2020 13:57) 11/20/2020 14:05levetiracetam 9.4 faxed to [facility] fax #[phone](Electronically signed by KACEY SKELTON RN - 11/20/2020 14:05) Name Value Range Interpretation Code Description Data Elizabeth rce(s) Supporting Document(s) ID Date Data Source [id number] 11/16/2020 08:53:00 PM EST [facility] Name Value Range Interpretation Code Description Data Elizabeth rce(s) Supporting Document(s) WBC 8.4 x10E3/uL 4.3-10.9 [facility] RBC 4.12 x10E6/uL 3.80-5.30 [facility] HEMOGLOBIN 12.6 g/dl 11.8-15.8 [facility] HEMATOCRIT 38.3 % 35.0-47.0 [facility] MCV 93.0 fl 82.0-98.0 [facility] MCH 30.6 pg 27.5-33.5 [facility] MCHC 32.9 g/dl 32.0-36.0 [facility] RDW 13.9 % 11.5-14.5 [facility] PLATELET COUNT 276 x10E3/uL 130-400 [facility] MPV 10.0 fl 8.6-12.6 [facility] SEGMENTED NEUTROPHILS 55.7 % 44.0-74.0 [facility] LYMPHOCYTES 35.0 % 15.0-45.0 [facility] MONOCYTES 6.8 % 2.0-13.0 [facility] EOSINOPHILS 1.8 % 0.0-6.0 [facility] BASOPHILS 0.7 % 0.0-2.0 [facility] NEUTROPHIL ABSOLUTE 4.7 x10E3/uL 1.4-7.0 Health system LYMPHOCYTES ABSOLUTE 2.9 x10E3/uL 1.0-3.4 Health system MONOCYTE ABSOLUTE 0.6 x10E3/uL 0.2-1.0 Health system EOSINOPHIL ABSOLUTE 0.2 x10E3/uL 0.0-0.5 Health system BASOPHIL ABSOLUTE 0.1 x10E3/uL 0.0-0.2 [facility], [place] [address] * ID Date Data Source [id number] 11/16/2020 09:10:00 PM EST [facility] Name Value Range Interpretation Code Description Data Elizabeth rce(s) Supporting Document(s) GLUCOSE 97 mg/dl 70-100 [facility] BUN 18 mg/dl 4-18 [facility] CREATININE, SERUM 0.89 mg/dl 0.50-1.10 [facility] SODIUM 137 mmol/l 136-146 [facility] POTASSIUM 4.6 mmol/l 3.5-5.3 [facility] CHLORIDE 104 mmol/l 96-109 [facility] CARBON DIOXIDE 23 mmol/l 20-32 [facility] ospital ALBUMIN 3.5 g/dl 3.5-5.0 [facility] PROTEIN, TOTAL 5.4 g/dl 6.4-8.2 L [facility] ospital CALCIUM 8.5 mg/dl 8.4-10.4 [facility] ALKALINE PHOSPHATASE 56 U/l 10-118 [facility] SGOT (AST) 14 U/l 3-40 [facility] SGPT (ALT) 15 U/l 7-50 [facility] BILIRUBIN, TOTAL 0.20 mg/dl 0.30-1.20 L [facility] BUN/CREATININE RATIO 20.2 6.0-20.0 H [facility] GLOBULIN 1.9 g/dl 2.3-3.5 L [facility] ANION GAP 10.0 mmol/l 7.0-16.0 [facility] OSMOLALITY (CALCULATED) 276 mos/kg 280-300 L [facility] A/G RATIO 1.8 1.0-2.0 [facility] R [facility], Dept of [facility] h [address] [place] [address] * ID Date Data Source [id number] 11/16/2020 09:10:00 PM [facility] Name Value Range Interpretation Code Description Data Elizabeth rce(s) Supporting Document(s) , SERUM NEGATIVE NEGATIVE [facility], [place] [address] * ID Date Data Source [id number] 11/16/2020 09:10:00 PM [facility] Name Value Range Interpretation Code Description Data Elizabeth rce(s) Supporting Document(s) ESTIMATED GFR (CALCULATED) [facility] EGFR 80 [facility] >59 mL/min/1.73m2 EGFR, -SWISS 93 [facility] >59 mL/min/1.09z0Kyyu: Persistent reduction for 3 months or more in an eGFR <60 mL/min/1.73m2 defines CKD. Patients with eGFR values >=60 mL/min/1.73m2 may also have CKD if evidence of persistent proteinuria is present. Additional information may be found at [email or web address]. R [facility], Dept of Path [address] [place] [address] * ID Date Data Source [id number] 11/19/2020 10:06:00 AM [facility] Name Value Range Interpretation Code Description Data Elizabeth rce(s) Supporting Document(s) LEVETIRACETAM, SERUM SEE BELOW [facility] Levetiracetam, S 9.4 L ug/mL 10.0-40.0 BNThis test was developed and its performance characteristicsdetermined by [employer]. It has not been cleared or approvedby the Food and Drug Administration.-[facility] [id number] ID Date Data Source [id number] 11/16/2020 09:45:07 PM [facility] CT brainClinical History: HeadacheTechni que: Axial CT images of the brain were obtained. Multiplanar includingsagittal and coronal reformatted images are presented. CT imaging was performedutilizing dose reduction techniques including automated exposure control anditerative reconstruction technique.Comparison: No relevant previous exams are available for comparison.Contrast: No intravenous contrast was administered for the exam.Findings:Brain and Ventricles: There is no acute intracranial hemorrhage. Cortical sulcalpattern is symmetric and in the range of normal. There is normal zendejas-whitematter differentiation. There is no infarct noted. There is no mass. There is nomass effect. There is no midline shift. The ventricles are normal in shape andsize for patient age. No cerebellopontine angle lesion is seen. The IACs aresymmetric. There is no significant intracranial vascular calcification.Extra-Axial Spaces: No subdural or epidural collections are noted.Sella/Craniocervical Junction: There is no sellar or suprasellar lesion.Craniocervical junction is in the range of normal.Visualized Paranasal Sinuses and Orbits: The included paranasal sinuses andmastoid air cells are well-aerated. No gross bulbar or retrobulbar pathology isnoted.Calvarium: No gross osseous pathology is seen. There is no scalp hematoma orforeign body.Impression: There is no acute intracranial pathology. There is no hemorrhage.There is no mass or mass effect. There is no territorial infarct seen.Other findings as above.As appropriate, post contrast CT of the brain or MRI would provide a moresensitive neural imaging assessment in the appropriate clinical setting.Electronically Signed By: Jeanette ACOSTA MDte: 11/16/2020 21:43 Name Value Range Interpretation Code Description Data Elizabeth rce(s) Supporting Document(s) ID Date Data Source [id number] 11/16/2020 07:53:00 PM EST [facility] Name Value Range Interpretation Code Description Data [facility] rce(s) Supporting Document(s) SARS coronavirus 2 RNA [facility] This lab was ordered by [facility] R [facility]OM (ER) and reported by [facility]. ID Date Data Source [id number] 11/16/2020 09:20:00 PM EST [facility] Name Value Range Interpretation Code Description Data [facility] rce(s) Supporting Document(s) ACCULA SARS-COV-2 NEGATIVE NEGATIVE [facility] Testing perfo rmed by nucleic acid amplification.This test has not been FDA cleared or approved. This test has beenauthorized by FDA under an Emergency Use Authorization (EUA). This test isonly authorized for the duration of the declaration that circumstancesexist justifying the authorization of emergency use of in vitro diagnostictests for detection and/or diagnosis of COVID-19 under Section 564(b)(1) ofthe Act, 21 U.S.C. 360bbb-3(b)(1), unless the authorization is terminatedor revoked sooner. Positive results are indicative of the presence ocXIXO-OqN-7 nucleic acid; clinical correlation with patient history andother diagnostic information is necessary to determine patient infectionstatus. Positive results do not rule out bacterial infection orco- infection with other viruses. R [facility], Dept of Path [address] [place] [address] * ID Date Data Source [id number] 11/14/2020 09:40:00 AM EST [facility] Name Value Range Interpretation Code Description Data [facility] rce(s) Supporting Document(s) :PrThr:Pt:Respiratory:Ord:Probe.amp.tar [facility] This lab was ordered by [facility] in Lab Site and reported by [facility]. ID Date Data Source [id number] 11/15/2020 03:11:00 PM EST [facility] Name Value Range Interpretation Code Description Data Elizabeth rce(s) Supporting Document(s) CRSP SARS-CoV-2 (RT)-PCR Assay Negative Negative N ormal (applies to non-numeric results) [facility] The [place] (U.S[place] FDA has made th is test available under anemergency access mechanism called Emergency Use Authorization (EUA). TheEUA is supported by the sales and marketing representative of Health and Human Services (HHSs)declaration that circumstances exist to justify the emergency use of invitro diagnostics (IVDs) for the detection and/or diagnosis of the virusthat causes COVID-19.Test performed at [facility] [place] [address]. First Test No [facility] System Employed in healthcare No [facility] Symptomatic as defined by CDC No [facility] Hospitalized No [facility] Resident in a congregate care setting Yes [facility] No [facility] Intensive Care No [facility] ealth System The above 8 [place] [address] ID Date Data Source [id number] 11/07/2020 12:00:00 PM EST [facility] Name Value Range Interpretation Code Description Data Elizabeth rce(s) Supporting Document(s) :PrThr:Pt:Respiratory:Ord:Probe.amp.tar [facility] This lab was ordered by [facility] in Lab Site and reported by [facility]. ID Date Data Source [id number] 11/12/2020 12:31:00 PM EST [facility] Name Value Range Interpretation Code Description Data Elizabeth rce(s) Supporting Document(s) CRSP SARS-CoV-2 (RT)-PCR Assay Negative Negative N ormal (applies to non-numeric results) [facility] The [place] (U.S[place] FDA has made th is test available under anemergency access mechanism called Emergency Use Authorization (EUA). TheEUA is supported by the sales and marketing representative of Health and Human Services (HHSs)declaration that circumstances exist to justify the emergency use of invitro diagnostics (IVDs) for the detection and/or diagnosis of the virusthat causes COVID-19.Test performed at [facility] [place] [address]. First Test No [facility] System Employed in healthcare No [facility] Symptomatic as defined by CDC No [facility] Hospitalized No [facility] Resident in a congregate care setting Yes [facility] No [facility] Intensive Care No [facility] ealth System The above 8 [place] [address] ID Date Data Source [id number] 10/26/2020 07:00:00 AM EST [facility] Name Value Range Interpretation Code Description Data Elizabeth rce(s) Supporting Document(s) :PrThr:Pt:Respiratory:Ord:Probe.amp.tar [facility] This lab was ordered by [facility] in Lab Site and reported by [facility]. ID Date Data Source [id number] 10/29/2020 05:51:00 PM EST [facility] Name Value Range Interpretation Code Description Data Elizabeth rce(s) Supporting Document(s) CRSP SARS-CoV-2 (RT)-PCR Assay Negative Negative N ormal (applies to non-numeric results) [facility] The [place] FDA has made th is test available under anemergency access mechanism called Emergency Use Authorization (EUA). TheEUA is supported by the sales and marketing representative of Health and Human Services (HHSs)declaration that circumstances exist to justify the emergency use of invitro diagnostics (IVDs) for the detection and/or diagnosis of the virusthat causes COVID-19.Test performed at [facility] located at [address] [address]. First Test No [facility] System Employed in healthcare No [facility] Symptomatic as defined by CDC Yes [facility] Hospitalized [facility] Resident in a congregate care setting Yes [facility] No [facility] Intensive Care No [facility] ealt System The above 8 analyt[place] [address] ID Date Data Source [id number] 10/27/2020 10:50:00 AM EST [facility] Name Value Range Interpretation Code Description Data Elizabeth rce(s) Supporting Document(s) Levetiracetam, S 9.7 mcg/mL 12.0 - 46.0 Below low normal [facility] ADDITIONAL INFORMATIO N This test was developed and its performance characteristicsdetermined by [facility] in a manner consistent with CLIArequirements. This test has not been cleared or approved bythe U.S. Food and Drug Administration.Test Performed by:[address] [id number] Director: Salvador Owens M.D. Ph.D.; CLIA# [id number] above 1 analytes were performed by [employer] ([id number]) ID Date Data Source [id number] 10/24/2020 06:45:00 PM EST [facility] Name Value Range Interpretation Code Description Data Elizabeth rce(s) Supporting Document(s) Folate 21.61 ng/ml 5.39-9999.00 Normal (applies to non-numeric re sults) [facility] -----Interpretive Information-----Folate Deficiency: 0.35-3.37 ng/mL.Intermediate: 3.35-5.38 ng/mLNormal: >5.38 ng/mLPatients routinely receiving high-dose biotin therapy may show falselyelevated results. Additional information may be required for diagonsis.The above 1 analytes were performed by [facility] [address] [place] [address], ,[place] [address] ID Date Data Source [id number] 10/24/2020 06:45:00 PM EST [facility] Name Value Range Interpretation Code Description Data [facility] rce(s) Supporting Document(s) Vitamin B12 >2000 pg/ml 211-911 Above high normal [facility] The above 1 analytes were performed by [facility] [address] [facility] [id number],[place] [address] ID Date Data Source [id number] 10/24/2020 06:41:00 PM EST [facility] Name Value Range Interpretation Code Description Data [facility] rce(s) Supporting Document(s) AST 13 IU/L 15-37 Below low normal [facility] Sulfasalazine and sulfapyridine have the potential to falsely depressAspartate Aminotransferase results. Baseline values before medication administration are recommended. ALT 21 IU/L 13-56 Normal (applies to non-numeric resul ts) [facility] Sulfasalazine and sulfapyridine have the potential to falsely depressAlanine Aminotransferase results. Baseline values before medication administration are recommended. Alkaline Phosphatase 54 mIU/ml 50-136 Normal (applies to non-num capri results) [facility] Total Bilirubin 0.30 mg/dl 0.20-1.00 Normal (applies to non-numeric results) [facility] Blood Urea Nitrogen 9 mg/dl 7-18 Normal (applies to non-nume deepti results) [facility] Creatinine 0.78 mg/dl 0.51-0.95 Normal (applies to non-numeric resul ts) [facility] N-Acetylcysteine (NAC) and Metamizole velez ve the potential to falselydepress Creatinine results. Baseline values before medication adminstration are recommended. Patients undergoing treatment with phenindione will have falselydepressed results. Patients on phenindione therapy should be tested with an alternativeCREA method.Toxic levels of acetaminophen may lead to falsely depressed results forpatient samples. Glomerular Filtration Rate 81.00 mL/min/1.73m2 [facility] GFR Reference Ranges:Normal Function or [...] 139/2 137-149, 2003), as recommended by the Nationaldney Disease Education Program in conjunction with the National Institutes of Health and the National KidneyFoundation. The [place] method used in calculating this result is traceable to IDGA standards. Glucose 74 mg/dl 70-110 Normal (applies to non-numeric resul ts) [facility] Sulfasalazine has the potential to false ly depress Glucose results. Sulfapyridine has the potential to falsely elevate Glucose results. Baseline values before medication administration are recommended. Calcium 8.5 mg/dl 8.5-10.1 Normal (applies to non-numeric resul ts) [facility] Total Protein 5.3 g/dl 6.4-8.2 Below low normal [facility] Albumin 3.0 g/dl 3.4-5.0 Below low normal [facility] Sodium 141 mEq/L 136-145 Normal (applies to non-numeric resul ts) [facility] Potassium 4.6 mEq/L 3.5-5.1 Normal (applies to non-numeric resul ts) [facility] Chloride 110.0 mEq/L 98.0-107.0 Above high normal [facility] Carbon Dioxide 25.4 mMol/L 21.0-32.0 Normal (applies to non-numeric results) [facility] Anion Gap 10.2 7.0-15.0 Normal (applies to non-numeric resul ts) [facility] The above 16 analytes were performed by [facility] [address] [place] [address], ,[place] [id number] ID Date Data Source [id number] 10/24/2020 06:41:00 PM EST [facility] Name Value Range Interpretation Code Description Data Elizabeth rce(s) Supporting Document(s) TSH 0.10 uIU/ml 0.36-3.74 Below low normal [facility] Concentrations of Biotin above 100 ng/mL can potentially result ininterference.The above 1 analytes were performed by [facility] [address] [place] [address],[facility] [id number],[place] [address] ID Date Data Source [id number] 10/24/2020 05:42:00 PM EST [facility] Name Value Range Interpretation Code Description Data Elizabeth rce(s) Supporting Document(s) WBC 4.69 x1000/ul 4.80-10.00 Below low normal [facility] RBC 3.74 x1Mil/ul 4.20-5.40 Below low normal [facility] Hemoglobin 11.5 g/dl 12.0-16.0 Below low normal [facility] Hematocrit 35.3 % 37.0-47.0 Below low normal [facility] MCV 94.4 fL 81.0-99.0 Normal (applies to non-numeric resul ts) [facility] MCH 30.7 pg 27.0-31.0 Normal (applies to non-numeric resul ts) [facility] MCHC 32.6 g/dl 32.2-37.0 Normal (applies to non-numeric resul ts) [facility] RDW 13.4 % 11.5-14.5 Normal (applies to non-numeric resul ts) [facility] Platelet Count 259 x1000/ul 130-400 Normal (applies to non-numeric results) [facility] MPV 11.1 fL 9.4-12.4 Normal (applies to non-numeric resul ts) [facility] Neutrophils 40.7 % 40.0-74.0 Normal (applies to non-numeric resu lts) [facility] Lymphocytes 48.0 % 19.0-48.0 Normal (applies to non-numeric resu lts) [facility] Monocytes 6.8 % 3.4-9.0 Normal (applies to non-numeric resul ts) [facility] Eosinophils 3.0 % 0.0-7.0 Normal (applies to non-numeric resu lts) [facility] Basophils 1.3 % 0.0-2.0 Normal (applies to non-numeric resul ts) [facility] Immature Granulocytes 0.2 % 0.0-0.5 Normal (applies to non-nu meric results) [facility] Nucleated RBCs 0.00 % 0.00-0.20 Normal (applies to non-numeric r esults) [facility] Abs. Neutrophils 1.91 x1000/ul 1.92-8.31 Below low normal [facility] Abs. Lymphocyte 2.25 x1000/ul 1.20-3.70 Normal (applies to non-n umeric results) [facility] Abs. Monocytes 0.32 x1000/ul 0.14-0.97 Normal (applies to non-nu meric results) [facility] Abs. Eosinophils 0.14 x1000/ul 0.00-0.76 Normal (applie s to non-numeric results) [facility] Abs. Basophils 0.06 x1000/ul 0.00-0.22 Normal (applies to non-n umeric results) [facility] Abs. Immature Gran. 0.01 x1000/ul 0.00-0.02 Normal (appl ies to non-numeric results) [facility] Abs. Nucleated RBCs 0.00 x1000/ul 0.00-0.02 Normal (appl ies to non-numeric results) [facility] The above 24 analytes were performed by [facility] [address] [place] [address],[facility] [id number],[place] [address] ID Date Data Source [id number] 10/18/2020 09:50:00 PM EST [facility] Name Value Range Interpretation Code Description Data Elizabeth rce(s) Supporting Document(s) SARS coronavirus 2 RNA [Presence] in Res piratory specimen by MARIAN with probe detection [facility] This lab was ordered by [facility] a nd reported by [facility]. ID Date Data Source [id number] 10/16/2020 06:05:00 PM EST [facility] Name Value Range Interpretation Code Description Data Elizabeth rce(s) Supporting Document(s) SARS coronavirus 2 RNA [facility] This lab was ordered by [facility] and reported by [facility]. ID Date Data Source [id number] 10/19/2020 08:41:00 AM EST [facility] Name Value Range Interpretation Code Description Data Elizabeth rce(s) Supporting Document(s) COVID 19 Not Detected Not Detected [facility] This nucleic acid amplification test wa s developed and its performance characteristics determined by [facility]. Nucleic acid amplification tests include PCR [...] detected) result in this assay. Performed at: [facility] [address] [facility], [place], [place] [id number] Civil Engineering Project Designer: Gabriela Mckinley PhD, Phone: [phone] ID Date Data Source [id number] 10/09/2020 12:19:00 PM EST [facility] Name Value Range Interpretation Code Description Data Elizabeth rce(s) Supporting Document(s) SARS coronavirus 2 RNA [facility] This lab was ordered by [facility] and reported by [facility]. ID Date Data Source [id number] 10/12/2020 06:57:00 AM EST [facility] Name Value Range Interpretation Code Description Data Elizabeth rce(s) Supporting Document(s) COVID 19 Not Detected Not Detected [facility] This nucleic acid amplification test wa s developed and its performance characteristics determined by [employer]. Nucleic acid amplification tests include PCR and [...] detected) result in this assay. Performed at: [facility], [place], [place] [id number] Civil Engineering Project Designer: Gabriela Mckinley PhD, Phone: [phone] ID Date Data Source [id number] 10/05/2020 02:00:00 PM EST [facility] Name Value Range Interpretation Code Description Data Elizabeth rce(s) Supporting Document(s) SARS coronavirus 2 RNA [facility] This lab was ordered by [facility] and reported by [facility]. ID Date Data Source [id number] 10/06/2020 10:39:00 PM EST [facility] Name Value Range Interpretation Code Description Data Elizabeth rce(s) Supporting Document(s) COVID 19 Not Detected Not Detected [facility] This nucleic acid amplification test wa s developed and its performance characteristics determined by [employer]. Nucleic acid amplification tests include PCR and [...] detected) result in this assay. Performed [facility]: [facility] [place] [id number] Civil [employer] Project Designer: Gabriela Mckinley PhD, Phone: [phone] ID Date Data Source [id number] 09/28/2020 12:00:00 AM EST [facility] Name Value Range Interpretation Code Description Data Elizabeth rce(s) Supporting Document(s) SARS coronavirus 2 RNA [facility] This lab was ordered by [facility] and reported by [facility]. ID Date Data Source [id number] 10/01/2020 08:00:00 AM EST [facility] Name Value Range Interpretation Code Description Data Elizabeth rce(s) Supporting Document(s) COVID 19 Not Detected Not Detected [facility] This nucleic acid amplification test wa s developed and its performance characteristics determined by [employer]. Nucleic acid amplification tests include PCR and [...] detected) result in this assay. [facility]formed [facility] [place] [id number] Civil Engineering Project Designer: Gabriela Mckinley PhD, Phone: [phone] ID Date Data Source [id number] 09/21/2020 12:35:00 PM EST [facility] Name Value Range Interpretation Code Description Data Elizabeth rce(s) Supporting Document(s) SARS coronavirus 2 RNA [facility] This lab was ordered by [facility] and reported by [facility]. ID Date Data Source [id number] 09/22/2020 10:11:00 PM EST [facility] Name Value Range Interpretation Code Description Data Elizabeth rce(s) Supporting Document(s) COVID 19 Not Detected Not Detected [facility] This nucleic acid amplification test wa s developed and its performance characteristics determined by [facility]. Nucleic acid amplification tests include PCR [...] detected) result in this assay. Performed at: - [facility] [id number] Civil Engineering Project Designer: Criss Gil MD, Phone: [phone] ID Date Data Source [id number] 09/14/2020 12:17:00 PM EDT [facility] Name Value Range Interpretation Code Description Data Elizabeth rce(s) Supporting Document(s) SARS coronavirus 2 RNA [facility] This lab was ordered by [facility] and reported by [facility]. ID Date Data Source [id number] 09/16/2020 08:19:00 PM EST [facility] Name Value Range Interpretation Code Description Data Elizabeth rce(s) Supporting Document(s) COVID 19 Not Detected Not Detected [facility] Testing was performed using the tremaine(R ) SARS-CoV-2 test. This nucleic acid amplification test was developed and its performance characteristics determined by [employer]. Nucleic acid amplification tests include PCR and [...] detected) result in this assay. Performed at: [address] [id number] Civil [employer] Project Designer: Criss Gil MD, Phone: [phone] ID Date Data Source [id number] 09/10/2020 07:50:00 AM EDT [facility] Name Value Range Interpretation Code Description Data Elizabeth rce(s) Supporting Document(s) SARS coronavirus 2 RNA [facility] This lab was ordered by [facility] and reported by [facility]. ID Date Data Source [id number] 09/13/2020 10:19:00 AM EDT [facility] Name Value Range Interpretation Code Description Data Elizabeth rce(s) Supporting Document(s) COVID 19 Not Detected Not Detected [facility] Testing was performed using the tremaine(R ) SARS-CoV-2 test. This nucleic acid amplification test was developed and its performance characteristics determined by [employer]. Nucleic acid amplification tests include PCR and [...] detected) result in this assay. Performed at: [facility] [id number] Civil Engineering Project Designer: Criss Gil MD, Phone: [phone] ID Date Data Source [id number] 08/15/2020 08:46:00 AM T [facility] Value Range Interpretation Code Description Data Elizabeth rce(s) Supporting Document(s) FREE T4 (FREE THYROXINE) 1.21 NG/DL 0.76-1.78 N [facility] ID Date Data Source [id number] [facility]2020 [facility] Interpret[facility] Code Description Data Elizabeth rce(s) Supporting Document(s) TSH 2.848 uIU/ML 0.470-4.200 N [facility] Patients should not be tested for 70 ho urs post fluorescein dye angiography. A false depression of result may occur. ID Date Data Source [id number] 07/31/2020 07:49:00 AM T [facility] Value Range Interpretation Code Description Data Elizabeth rce(s) Supporting Document(s) FREE T4 (FREE THYROXINE) 0.84 NG/DL 0.76-1.78 N [facility] ID Date Data Source [id number] 07/31/2020 07:49:00 AM [facility] Value Range Interpretation Code Description Data Elizabeth rce(s) Supporting Document(s) T3FREE 2.6 PG/ML 2.3-4.2 N [facility] ID Date Data Source [id number] 07/31/2020 07:49:00 AM EDT [facility] Name Value Range Interpretation Code Description Data Elizabeth rce(s) Supporting Document(s) TSH 0.905 uIU/ML 0.470-4.200 N [facility] Patients should not be tested for 72 ho urs post fluorescein dye angiography. A false depression of result may occur. ID Date Data Source [id number] 07/26/2020 10:25:38 AM EDT [facility] Name Value Range Interpretation Code Description Data Elizabeth rce(s) Supporting Document(s) Progress Note [facility] EGUTZd3lOnRGCrBq71/BBSbpXANvm1HxALupLZc2UHtyTLOzD5WgJVY5vH1lAWK1UUcFCmAhSxUaJHCy lbm [file] AgICAgICAgICAgICAgICAgICAgICAgICAgICAgICAg BTKbJRZbWXQyJGYmTTFbGDMsVKKnKJZeRJQhDNAfOVBhPUIyFSBbEXFiINMzBPDdYNPeKFWkIH0WDOQn ICAgICAgICAgICAgICAgICAgICAgICAgICAgICAgICAgICAgICAgICAgICAgICAgICAgICAgICAgICAg ICAgICAgICAgICAgICAgICAgICAgICAgICAgICAgIC RrTUMqXW6KFBHeHIWxLSIsTTVxZKOaEZXdWRKpZRWvTZDtBICrTGKgIPMiTIXlEENvJTHjATClKBXkOG CxLDMcGCKkCXSvYDTvSKMgRVZhYVTmHAQeUJUrZTGuXDKqMGMnEZEeJXPeFQSsCM8SLCSfNYJkHHFpYA AgICAgICAgICAgICAgICAgICAgICAgICAgICAgICAg PZOyDFNkLPVfDMOmNNDbUNSqREDyVZSwPKKnJZXyKWMnMXPzJTWkZZZnAGBvLSKmHUFgWZZsXNAzRG9G ICAgICAgICAgICAgICAgICAgICAgICAgICAgICAgICAgICAgICAgICAgICAgICAgICAgICAgICAgICAg ICAgICAgICAgICAgICAgICAgICAgICAgICAgICAgIC ShMBGeVKQgXF4FTTZfWNNgAABdYBKvCWBpNBJrRGGyOVYvLQRyHFTkODHxQLLySYZmNODeQCCpQOOeZH JoKFHiSSBiXYSbCANgSTAoLMMrTCFpTQMrQOLlKDCcLCZgXJTrOXBpBZMiNNUqWCOlBN8QXFUfSRBiLM AgICAgICAgICAgICAgICAgICAgICAgICAgICAgICAg ICAgICAgICAgICAgICAgICAgICAgICAgICAgICAgICAgICAgICAgICAgICAgICAgICAgICAgICAgICAg RG7VSSStPCQjSZLzGUTxATLyPDQbJWIwNNIwYIUzVIJkBFIuRMTySAAqWPPwNQUyHNFkQVEvFUQtKTSf ICAgICAgICAgICAgICAgICAgICAgICAgICAgICAgIC UqIQVvFLNaMUAdWW6VXKRfFEKxNQCkPJZjJKIjUHUyKYOmHDZqLZLnYJQsYFOoPYMwSKXdWQClIYKbJC DxFHUtGXGmAKVmBUCiZYQuEKSvIYPlBTHaKACzMAHhNSSfPHBiCLJyHKLcZJNsEEXpQSMfZV2NSW69pK Llf8R8BRZtGW6zqhj/Vg4NNTzgrbRgfBMnPT4MHoXk OZ7zxb4VGcXdNH6fyj5OMUaTOfOsE0K3bDZjHWCjUAWFDiMxB25jKRpqAa80MWdmYOPmYxTdGQa4Py3K XyHrJ4osLWBdYbQ1VZEiVyY2JOEgPyZ8PTGvAkCbRRDjPJUpAOXnQKLOSQB3JKBfCkDmUrOtPZEfFIfs DKSFUKIdGSKiBpJkHfOjMNDiHbAoXFMTVL2HLcPgM2 CerP61FELeAWc+Ws5HKQ9ny9VkEQy1BxEhUV7zai8HVFsVWyCqK0IwswK5ZKBwZESoOq4ZOTIoZAQxsL R3WpRwIQOFKqHyW6JdjS80PCUUTd8+UNeetoGfTglPXeFsVZBxh0WrBUd6LP5FNPAsXXg0oDDsSPCkR6 Dlu5OtLp84ZGNwKayzToJtnhIqXTSUn6DviINsWI0D LVU3QZebTTJbYlMkNUAoPDjiUKFAMUjGCkPbB3Jpn4YrQvW1QNTmVwOiJQboKXNpEmZ4GT67xOvvVI3F MZXaRDUkPI09AFHmQTSmMt3PNv8BEaRgAS5cyr3XFDMdLSEhEoqAKck1OKfcDW1JvCRfX7OpdQAer6aA KiIyQ1NDTIIiUYLvQl3FIUAiTbKmFPRtPQitHZ9aIZ IoEFFCpGxqiiE2GT4HFH4lneHwZY5OJnSxMt7yCl8NPaWaN5RsC0HxWQOrOIFEEBhoBH0OBOgdUB6tTJ 2Jo4ZWgQDraV6paq4VWDPzJOYwNtptnn0IFkrwZ0T5dBfmHDOnGOUzHIVJAPbxBI1WWOKbYIW2UQZ5EI LeYDIAPfKbS94gQO6BI2Uyu38gJaZ1AABpGzTbWCpt YA56sFsrsuUzsBVopMvoRQ5CQj7+PIxfrxUvTfoKMrcqCLMKRrJkITMTPrJoCQYdCGGxSIVkAzV2IrXi If3NECIqWVIrXMGeMkJyZOBkNBUtAXjjOKQhFNF1TwM9AGQoIOIlXS1XHiVyWGMpEFgwPVGqVGBeLWKe ik7WZMToDNOxAZK4JmMkOVTaGMDbSMkcTMVbUDG5FC Z1QYKkIXLbXV8DDbLsITItLWK8TDliDEIbQOJupy8YEKCsXUMqFcP9OOGvKTEeJGBoFVcvCQZzUMW8Kg k6GATkKFOvPT2NOmZkDIVoUNZ5UKOqVKXgBIGtpz1LDHVmAQMtWJH7MIJuOBQmICZvZHjeXEKlGMZ9Bh P4EADnIFAeVE5IIvZhRCBoYFK6HLUjQKLcVLZnol4N BMQiJKRwOhL6ZHTiKASqDNNlEBjvOXHgITW8AFG7AVNnVAShPX0PGuRxZDKxIFk8CUnyEFZqOGEzzu7R UFYjCAFkYSIqVhGuOJJeHTSeUXhgWJMcDSJvLgH7NBPgZDFmUU0OYvJkYZMgUpR8RjYwRUUcGEEsme5K SXMyRWGiQgmaBTYtGZNkOSLkFIdaTLRhAVX8KYA2EP HiLVSyAY2RPrDlANRjIeszMaWuIGDhVUPbsl9KYXDkQQQjAcBlBOKbBYAvTEAcACmkEPBhZCR8Oxf1KG MrBPXmCU8CFxCiWNHoMea3MKZhURFcOCBmzn2MJTSlLNGwYAs2OYGwGXQmXLGhKIfkEXJvWIEvQNi4DU RkZODcWO9INaJmMMEoErN0TlIgPILfWMTygi9BKPOj AHOxVdFbUvXnQZCgYQJbUEbtBOEuARCqQlH2ZUSuOBYtMF6TNkRyUVNdPqIlOtIkQMQgNNTlge3NSJZh JVVfIkW9KvSjBXDhCRFlECqfIKSgWFWtYqJ4RTNjGHYfVE4NZzVrPHVcJBUlJKFuKKYsRQJlqi9OKBCw MKU8LSQkNWJaIIFwJLHsBFinTCFeRUJ8RsM0JWBaKS UfAF2LArYjIWCeQRK1PdckUAHsIHPwws3XYMXpXWI7ZkGuLHEfGDXiSEYoQGqeXWGdCCH0WJJ1UJXeJF XuOU7XQwIaTWKqFNxoTTcjUZBvTFSuim0CGVGhKXX3ByGgZAWqDNPgOFZwOEsbAIUeZMJ3YlIbHJFfBM KgPG1WKwJxHIZzHLozUZabNGGtOCWigk5JFFEuPAK3 RVVeGEQvBPMyXVWcAQpnXLQzDSG9FPc9SMDxYORgEH2GZhWmEPrnEUOIJbb2ADwtF8g4MMP8GB1NJ2Xa h8LlXKPmXVDNGPweYI6dznQtMSHwPc8UV4lKXtxiSMHeOabkWWQ8TGT6BDO8HOIfAuIjFuHqDrI5XNUl Cl6zDPQ7QCOdFQF8JUTkIejuTML9SAVlHJXaAeLdVc rvBYUbOlYuXE7BPc8LWpZ1ZCD5zTWkQs2VBLc5NkJHIyEaLY5UUFl= ID Date Data Source [id number] 07/17/2020 06:24:00 PM EDT [facility] Name Value Range Interpretation Code Description Data Elizabeth rce(s) Supporting Document(s) SARS coronavirus 2 RNA [facility] This lab was ordered by [facility] and reported by [facility]. ID Date Data Source [id number] 07/19/2020 06:11:00 PM EDT [facility] Name Value Range Interpretation Code Description Data Elizabeth rce(s) Supporting Document(s) COVID 19 Not Detected Not Detected [facility] This nucleic acid amplification test wa s [...] detected) result in this assay. Performed at: [facility] [id number] Civil Engineering Project Designer: Criss Gil MD, Phone: [phone] ID Date Data Source [id number] 06/20/2020 11:38:00 [place] [address] HEALTH INFORMATION MANAGEMENT ED/ Physician Report : [id number] Signed Patient: Madhavi Montalvo Acct:[id number] Unit: [id number] : 1980 Arrival Date: 06/20/20 Age/Sex: 39 / F Arrival Time: 1949 Copies to: PCP,No General Adult HPI/ROS General Chief Complaint: Physical Examination Stated Complaint: All Over Body Pain Stated Complaint: All Over Body Pain Source: Patient, EMS, Old records reviewed, RN/MD, RN notes reviewed and I have reviewed [...] and Methamphetamine Occupation: disabled Lives with: Reports Fpc PMH/PSH PMH/PSH Medical History Acute respiratory failure [...] File>> Initializing User: Radha Malin NP 06/20/20 [id number] Signed by: Radha Malin NP 06/26/20 [id number] Vickie Arnold MD 06/26/20 0459 Name Value Range Interpretation Code Description Data Elizabeth rce(s) Supporting Document(s) ID Date Data Source [id number] 06/18/2020 07:55:00 AM EDT [facility] Name Value Range Interpretation Code Description Data Elizabeth rce(s) Supporting Document(s) WHITE BLOOD COUNT 5.31 10^3/uL 4.00-10.50 [facility] RED BLOOD COUNT 3.87 10^6/uL 3.90-5.20 L [facility] th HEMOGLOBIN 11.2 G/DL 11.5-15.6 L [facility] HEMATOCRIT 33.0 % 35.0-46.0 L [facility] MCV 85.3 FL 80.0-100.0 N [facility] MCH 28.9 PG 27.0-34.0 N [facility] MCHC 33.9 G/DL 32-36 N [facility] RDW 14.4 % 11.5-14.5 [facility] PLATELET COUNT 212 10^3/uL 130-400 N [facility] MPV 11.8 FL 8.7-13.2 N [facility] GRAN % (AUTO) 48.2 % 42.0-75.0 N [facility] LYMPH % (AUTO) 40.5 % 20.0-51.0 N [facility] MONO % (AUTO) 6.8 % 2.0-15.0 N [facility] EOS % (AUTO) 3.0 % 0.0-11.0 N [facility] BASO % (AUTO) 1.3 % 0.0-2.0 N [facility] IG % (AUTO) 0.2 % 1.00-5.00 [facility] IG # (AUTO) 0.0 10^3/uL <0.5 [facility] GRAN # (AUTO) 2.56 10^3/uL 1.50-6.50 N [facility] LYMPH # (AUTO) 2.2 k/uL 1.0-5.0 N [facility] MONO # (AUTO) 0.36 k/uL 0.20-1.50 N [facility] EOS # (AUTO) 0.16 10^3/uL 0.00-1.10 N [facility] BASO # (AUTO) 0.07 10^3/uL 0.00-0.20 N [facility] ID Date Data Source [id number] 06/18/2020 08:23:00 AM EDT [facility] Name Value Range Interpretation Code Description Data Elizabeth rce(s) Supporting Document(s) SODIUM 136 MEQ/L 135-145 N [facility] POTASSIUM 4.4 MEQ/L 3.5-5.3 [facility] CHLORIDE 101 MEQ/L 94-110 N [facility] CARBON DIOXIDE 25 MEQ/L 22-33 N [facility] ANION GAP 14 5-16 N [facility] BLOOD UREA NITRO 9 MG/DL 7-25 N [facility] CREATININE 0.6 MG/DL 0.6-1.4 [facility] GFR > 90.0 ML/MIN [facility] Stage G1 - Normal or high kidney functi on The GFR is an estimate of the Glomerular Filtration Rate. It is an aid to assess a patient's renal function. It is not a conclusive diagnosis of kidney disease. GFR normal is >=90 The MDRD GFR calculation is considered valid between the ages of 18 and 75 years only. BUN/CREAT RATIO 15 8-36 N [facility] GLUCOSE 79 MG/DL 70-100 N [facility] CA 8.9 MG/DL 8.7-10.5 N [facility] BILIRUBIN,TOTAL 0.3 MG/DL 0.1-1.3 N [facility] AST 24 U/L 5-40 N [facility] ALT 37 U/L 5-48 N [facility] ALKALINE PHOSPHATASE 86 U/L 40-140 N [facility] alth TOTAL PROTEIN 5.2 G/DL 5.9-8.3 L [facility] ALBUMIN 3.6 G/DL 3.0-5.1 N [facility] GLOBULIN 1.6 G/DL 1.5-3.5 N [facility] ALB/GLOB RATIO 2.3 G/DL 1.0-3.0 N [facility] ID Date Data Source [id number] 06/18/2020 08:23:00 AM [facility] Name Value Range Interpretation Code Description Data Elizabeth rce(s) Supporting Document(s) MAGNESIUM 1.7 mg/dl 1.8-2.4 L [facility] ID Date Data Source [id number] 06/18/2020 08:23:00 AM [facility] Name Value Range Interpretation Code Description Data Elizabeth rce(s) Supporting Document(s) FREE T4 (FREE THYROXINE) 1.02 NG/DL 0.76-1.78 N [facility] ID Date Data Source [id number] 06/18/2020 08:23:00 AM [facility] Name Value Range Interpretation Code Description Data Elizabeth rce(s) Supporting Document(s) T3FREE 3.4 PG/ML 2.3-4.2 N [facility] ID Date Data Source [id number] 06/18/2020 08:23:00 AM [facility] Name Value Range Interpretation Code Description Data Elizabeth rce(s) Supporting Document(s) TSH 0.843 uIU/ML 0.470-4.200 N [facility] Patients should not be tested for 72 ho urs post fluorescein dye angiography. A false depression of result may occur. ID Date Data Source [id number] 06/13/2020 07:26:00 AM [facility] Name Value Range Interpretation Code Description Data Elizabeth rce(s) Supporting Document(s) WHITE BLOOD COUNT 6.26 10^3/uL 4.00-10.50 N [facility] ealth RED BLOOD COUNT 3.53 10^6/uL 3.90-5.20 L [facility] th HEMOGLOBIN 10.2 G/DL 11.5-15.6 L [facility] HEMATOCRIT 30.1 % 35.0-46.0 L [facility] MCV 85.3 FL 80.0-100.0 N [facility] MCH 28.9 PG 27.0-34.0 N [facility] MCHC 33.9 G/DL 32-36 N [facility] RDW 14.4 % 11.5-14.5 N [facility] PLATELET COUNT 259 10^3/uL 130-400 N [facility] MPV 11.6 FL 8.7-13.2 N [facility] GRAN % (AUTO) 42.7 % 42.0-75.0 N [facility] LYMPH % (AUTO) 43.6 % 20.0-51.0 N [facility] MONO % (AUTO) 8.6 % 2.0-15.0 N [facility] EOS % (AUTO) 3.7 % 0.0-11.0 N [facility] BASO % (AUTO) 1.1 % 0.0-2.0 N [facility] IG % (AUTO) 0.3 % 1.00-5.00 [facility] IG # (AUTO) 0.0 10^3/uL <0.5 [facility] GRAN # (AUTO) 2.67 10^3/uL 1.50-6.50 N [facility] LYMPH # (AUTO) 2.7 k/uL 1.0-5.0 N [facility] MONO # (AUTO) 0.54 k/uL 0.20-1.50 N [facility] EOS # (AUTO) 0.23 10^3/uL 0.00-1.10 N [facility] BASO # (AUTO) 0.07 10^3/uL 0.00-0.20 N [facility] ID Date Data Source [id number] 06/13/2020 07:36:00 AM EDT [facility] Name Value Range Interpretation Code Description Data Elizabeth rce(s) Supporting Document(s) SODIUM 135 MEQ/L 135-145 N [facility] POTASSIUM 4.2 MEQ/L 3.5-5.3 N [facility] CHLORIDE 102 MEQ/L 94-110 N [facility] CARBON DIOXIDE 27 MEQ/L 22-33 N [facility] ANION GAP 10 5-16 N [facility] BLOOD UREA NITRO 14 MG/DL 7-25 N [facility] CREATININE 0.7 MG/DL 0.6-1.4 N [facility] GFR > 90.0 ML/MIN [facility] Stage G1 - Normal or high kidney functi on The GFR is an estimate of the Glomerular Filtration Rate. It is an aid to assess a patient's renal function. It is not a conclusive diagnosis of kidney disease. GFR normal is >=90 The MDRD GFR calculation is considered valid between the ages of 18 and 75 years only. BUN/CREAT RATIO 20 8-36 N [facility] GLUCOSE 74 MG/DL 70-100 N [facility] CA 8.7 MG/DL 8.7-10.5 N [facility] BILIRUBIN,TOTAL 0.2 MG/DL 0.1-1.3 N [facility] AST 17 U/L 5-40 N [facility] ALT 27 U/L 5-48 [facility] ALKALINE PHOSPHATASE 89 U/L 40-140 [facility] alth TOTAL PROTEIN 4.9 G/DL 5.9-8.3 L [facility] ALBUMIN 3.6 G/DL 3.0-5.1 N [facility] GLOBULIN 1.3 G/DL 1.5-3.5 L [facility] ALB/GLOB RATIO 2.8 G/DL 1.0-3.0 [facility] ID Date Data Source [id number] 06/07/2020 11:19:00 PM EDT [facility] Name Value Range Interpretation Code Description Data Elizabeth rce(s) Supporting Document(s) SARS-CoV-2 (COVID-19) N gene [Presence] in Nasopharynx by MARIAN with probe detection [facility] This lab was ordered by [facility] and reported by [facility]. ID Date Data Source [id number] 06/08/2020 02:24:00 PM EDT [facility] COVID Reason [place] Admission Priority #4 Name Value Range Interpretation Code Description Data Elizabeth rce(s) Supporting Document(s) COVID 19 (RHEONIX) NOT-DETECTED NOTDETECTED [facility] The COVID testing using the Rheonix manuel [...] public health authorities. 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 Lesions and [...] MPV Gran % (Auto) Lymph % (Auto) [place] % (Auto) Eos % (Auto) Baso % (Auto) Nucleat RBC Rel Count Gran # Lymph # (Auto) Waldo # (Auto) Eos # (Auto) Baso # (Auto) Immature Gran # (Auto) Absolute Nucleated RBC Immature Gran % Sodium Potassium Chloride Carbon Dioxide Anion Gap BUN Creatinine Estimated GFR (MDRD) BUN/Creatinine Ratio Glucose Calcium Total Bilirubin AST ALT Alkaline Phosphatase Total Protein Albumin Globulin Albumin/Globulin Ratio Beta HCG Screen NEGATIVE Urine Color YELLOW Urine Appearance CLEAR Urine pH 6.0 Specific [place] (Man) 1.004 Urine Protein NEGATIVE Urine Glucose [...] % (Auto) 46.6 Lymph % (Auto) 43.3 Waldo % (Auto) 5.8 Eos % (Auto) 2.9 Baso % (Auto) 1.2 Nucleat RBC Rel Count N ot Reportable Gran # 3.05 Lymph # (Auto) 2.8 [place]do # (Auto) 0.38 Eos # (Auto) 0.19 [...] Urine Color Urine Appearance Urine pH Specific [place] (Man) Urine Protein Urine Glucose (UA) Urine [...] charges for this visit?: Yes Inpt Consult [id number] Cons Level 4: Yes Signed By:Justin Bone Jr, MD <<Signature on File>> Signed Date/Time: 06/07/202317 Co-Signer: Co-Signed Date/Time: Initializing User: Justin Bone Jr, MD 0 06/07/202309 09 09 Name Value Range Interpretation Code Description Data Elizabeth rce(s) Supporting Document(s) ID Date Data Source [id number] 06/07/2020 09:24:00 PM EDT [facility] Name Value Range Interpretation Code Description Data Elizabeth rce(s) Supporting Document(s) COLOR,UR YELLOW YELLOW [facility] APPEARANCE,UR CLEAR CLEAR [facility] PH,UR 6.0 5.0-8.0 [facility] SPECIFIC GRAVITY,UR 1.004 1.002-1.035 N [facility] PROTEIN,UR NEGATIVE MG/DL NEGATIVE [facility] GLUCOSE, UR NEGATIVE MG/DL NEGATIVE [facility] KETONES,UR NEGATIVE MG/DL NEGATIVE [facility] OCCULT BLOOD,UR NEGATIVE NEGATIVE [facility] NITRATE,UR NEGATIVE NEGATIVE [facility] LEUKOCYTE ESTERASE ,UR NEGATIVE NEGATIVE [facility] BILIRUBIN,UR NEGATIVE NEGATIVE [facility] UROBILINOGEN,UR 0.2-1.0 EU MG/DL NEG-0-1.0 [facility] ID Date Data Source [id number] 06/07/2020 09:30:00 PM EDT [facility] Name Value Range Interpretation Code Description Data Elizabeth rce(s) Supporting Document(s) OPIATE SCREEN POS NEGATIVE [facility] Minimum Detectable Limit is 300 ng/mL. BARBITURATE SCREEN NEG NEGATIVE [facility] Minimum Detectable Limit is 300 ng/mL. PHENCYCLIDINE SCREEN NEG NEGATIVE [facility] Minimum Detectable Limit is 25 ng/mL. AMPHETAMINE SCREEN NEG NEGATIVE [facility] Minimum Detectable Limit is 1000 mg/mL. BENZODIAZEPINE SCREEN NEG NEGATIVE [facility] Mininum Detectable Limit is 300 ng/mL. COCAINE SCREEN NEG NEGATIVE [facility] Minimum Detectable Limit is 300 ng/mL. CANNABINOID SCREEN NEG NEGATIVE [facility] Minimum Detectable limit is 50 ng/dL. HEROIN SCREEN NEG NEGATIVE [facility] Minimum Detectable limit is 10 ng/dL. A ll POSITIVE or BORDER results are unconfirmed. Please contact the laboratory if a reference testing confirmation is needed. ID Date Data Source [id number] 06/07/2020 09:32:00 PM T [facility] Has Patient F[facility] For The Past [...] rce(s) Supporting Document(s) HCG QUALITATIVE SPECIMEN SERUM [facility] ID Date Data Source [id number] 06/07/2020 09:32:00 PM T [facility] Has Patient Fasted For The Past 12 [...] Elizabeth rce(s) Supporting Document(s) HCG RESULT,S NEGATIVE [facility] Reference range is Negative "Extreme" early may have low levels of HCG present. If is suspected, repeat testing with a new specimen in 48-72 hours ID Date Data Source [id number] 06/07/2020 09:19:00 PM T [facility] Has Patient Fasted For The Past 12 [...] Name Value Range Interpretation Code Description Data [facility](s) Supporting Document(s) WHITE BLOOD COUNT 6.54 10^3/uL 4.00-10.50 N [facility] RED BLOOD COUNT 3.52 10^6/uL 3.90-5.20 [facility] HEMOGLOBIN 10.2 G/DL 11.5-15.6 L [facility] HEMATOCRIT 30.1 % 35.0-46.0 L [facility] MCV 85.5 FL 80.0-100.0 N [facility] MCH 29.0 PG 27.0-34.0 N [facility] MCHC 33.9 G/DL 32-36 N [facility] RDW 14.4 % 11.5-14.5 N [facility] PLATELET COUNT 287 10^3/uL 130-400 N [facility] MPV 10.8 FL 8.7-13.2 N [facility] GRAN % (AUTO) 46.6 % 42.0-75.0 N [facility] LYMPH % (AUTO) 43.3 % 20.0-51.0 N [facility] MONO % (AUTO) 5.8 % 2.0-15.0 N [facility] EOS % (AUTO) 2.9 % 0.0-11.0 N [facility] BASO % (AUTO) 1.2 % 0.0-2.0 N [facility] IG % (AUTO) 0.2 % 1.00-5.00 [facility] IG # (AUTO) 0.0 10^3/uL <0.5 [facility] GRAN # (AUTO) 3.05 10^3/uL 1.50-6.50 N [facility] LYMPH # (AUTO) 2.8 k/uL 1.0-5.0 N [facility] MONO # (AUTO) 0.38 k/uL 0.20-1.50 N [facility] EOS # (AUTO) 0.19 10^3/uL 0.00-1.10 N [facility] BASO # (AUTO) 0.08 10^3/uL 0.00-0.20 N [facility] ID Date Data Source [id number] 06/08/2020 09:14:00 AM EDT [facility] Has Patient Fasted For The Past 12 [...] Supporting Document(s) SODIUM 135 MEQ/L 135-145 N [facility] POTASSIUM 4.5 MEQ/L 3.5-5.3 [facility] CHLORIDE 104 MEQ/L 94-110 [facility] CARBON DIOXIDE 25 MEQ/L 22-33 [facility] ANION GAP 11 5-16 N [facility] BLOOD UREA NITRO 12 MG/DL 7-25 N [facility] CREATININE 0.7 MG/DL 0.6-1.4 [facility] GFR > 90.0 ML/MIN [facility] Stage G1 - Normal or high kidney functi on The GFR is an estimate of the Glomerular Filtration Rate. It is an aid to assess a patient's renal function. It is not a conclusive diagnosis of kidney disease. GFR normal is >=90 The MDRD GFR calculation is considered valid between the ages of 18 and 75 years only. BUN/CREAT RATIO 17 8-36 N [facility] GLUCOSE 89 MG/DL 70-100 N [facility] CA 8.4 MG/DL 8.7-10.5 L [facility] BILIRUBIN,TOTAL < 0.2 MG/DL 0.1-1.3 [facility] U/L 5-40 N [facility] ALT 28 U/L 5-48 [facility] ALKALINE PHOSPHATASE 95 U/L 40-[address] [facility] TOTAL PROTEIN 5.0 G/DL 5.9-8.3 L [facility] ALBUMIN 3.4 G/DL 3.0-5.1 N [facility] GLOBULIN 1.6 G/DL 1.5-3.5 N [facility] ALB/GLOB RATIO 2.1 G/DL 1.0-3.0 [facility] ID Date Data Source [id number] 06/08/2020 09:14:00 AM [facility] Has Patient Fasted For The Past 12 [...] Supporting Document(s) IRON 72 UG/DL 35-150 N [facility] TIBC 262 UG/DL 260-400 N [facility] % IRON SATURATION 27.0 % 20-50 N [facility] ID Date Data Source [id number] 06/08/2020 09:14:00 AM [facility] Has Patient Fasted For The Past 12 [...] Document(s) Vitamin D,25-HYDROXY 27.9 ng/ml 30-100 L [facility] ealt Vitamin D Status Range De ficiency <20 ng/ml Insufficiency 20-29.9 ng/ml Sufficiency 30-100 ng/ml Toxicity >100 ng/ml Patients should not be tested for 72 hours post fluorescein dye angiography. A false elevation of result may occur. ID Date Data Source [id number] 06/08/2020 09:14:00 AM [facility] Has Patient Fasted For The Past 12 [...] T4 (FREE THYROXINE) 0.75 NG/DL 0.76-1.78 L [facility] ID Date Data Source [id number] 06/08/2020 09:14:00 AM [facility] Has Patient Fasted For The Past 12 [...] Supporting Document(s) T3FREE 2.1 PG/ML 2.3-4.2 L [facility] ID Date Data Source [id number] 06/08/2020 09:14:00 AM [facility] Has Patient Fasted For The Past 12 [...] Supporting Document(s) TSH 2.950 uIU/ML 0.470-4.200 N [facility] Patients should not be tested for 72 ho urs post fluorescein dye angiography. A false depression of result may occur. ID Date Data Source [id number] 06/08/2020 09:14:00 AM T [facility] Has Patient Fasted For The Past 12 [...] Document(s) SALICYLATE < 3.0 MG/DL 2.8-20.0 N [facility] ID Date Data Source [id number] 06/08/2020 09:14:00 AM [facility] Has Patient Fasted For The Past 12 [...] Supporting Document(s) ACETAMINOPHEN 5.2 UG/ML 10-30 L [facility] High levels of N-acetylcysteine (used t o treat Acetaminophen overdose) may cause interference and cause a negative bias in the Acetaminophen result. ID Date Data Source [id number] 06/08/2020 09:14:00 AM [facility] Has Patient Fasted For The Past 12 [...] Supporting Document(s) BLOOD ALCOHOL 0.00 % <0.03 [facility] ID Date Data Source [id number] 05/09/2020 03:34:00 AM EDT [address] [address] HEALTH INFORMATION MANAGEMENT ED/UC Physician Report : [id number] Signed Patient: Madhavi Montalvo Acct:[id number] Unit: [id number] : 1980 Arrival Date: 05/09/20 Age/Sex: 39 [...] CT that was normal. She took a [place] [facility] but the headache continued so she [...] PO BID PRN 03/28/20 bisacodyl 10 mg LA DAILY PRN 03/28/20 budesonide-formoterol [Symbicort] 2 puff [...] of use Occupation: disabled Lives with: Reports Fpc PMH/PSH PMH/PSH Medical History Acute respiratory failure [...] Normal Affect Skin Skin exam: Dry, Intact, Tulsita and Warm Course Course Course Narrative: For this headache which sounds like a tension migraine, we will give her [id number] mg added to 1 bag of saline [...] 0 bisacodyl 10 mg Suppository 10 mg LA DAILY PRN (Reason: Constipation) RF: 0 pantoprazole [...] 98 Date/Time <<Signature on File>> Initializing User: Vickie Arnold MD 05/09/20 0334 Signed by: Vickie Arnold MD 05/09/20 2055 Name Value Range Interpretation Code Description Data Elizabeth rce(s) Supporting Document(s) ID Date Data Source [id number] 04/18/2020 10:31:00 AM [facility] Run: 04/18/20 1031 INTERFACED REPORT Name: SelvinMadhavi Nany Age/Sex: 39/F Location: [facility] Acct: [id number] Unit: [id number] Status: REG REF Room/Bed: Re04/16/20 Disch: Att Dr: Key Scott MD Specimen #: [id number] Ordered : 04/16/2012/05/2053 Collected : 04/16/2012/05/2053 By: [...] Value Range Interpretation Code Description Data [facility](s) Supporting Document(s) ID Date Data Source [id number] 04/16/2020 03:33:00 PM EDT [facility] Name Value Range Interpretation Code Description Data [facility]) Supporting Document(s) Bacteria identified in Urine by Culture Laboratory test result [facility]) <content> --------</content>
<content>Run: 04/18/20 1031 INTERFACED REPORT</content>
<content> </content>
<content>Name: Madhavi Montalvo Age/Sex: 39/F Location: [facility]</content>
<content>Acct: [id number] Unit: [id number] Status: REG REF Room/Bed:</content>
<content>Re04/16/20 Disch: Att Dr: Key Scott MD</content>
<content> </content>
<content></content>
<content>Specimen #: [id number] Ordered : 04/16/2012/05/2053</content>
<content>Collected : 04/16/2012/05/2053 By: OFFICE Received: 04/16/2012/05/2053 By: ALBERTO</content>
<content>Source: URINE CATH [...] REPORT </content>
<content></content> ID Date Data Source [id number] 04/16/2020 02:13:00 PM EDT [facility] Name Value Range Interpretation Code Description Data Elizabeth rce(s) Supporting Document(s) Glucose [Presence] in Urine Laboratory test result [facility] ([facility]) Protein [Presence] in Urine by Test strip Laboratory test result [facility] ([facility]) Ua Nitrite Laboratory test result [facility] ([facility]) Ua Leuko Laboratory test result [facility] ([facility]) Ketones [Presence] in Urine by Test strip Laboratory test result [facility] ([facility]) Color of Urine Laboratory test result [facility] ([facility]) Blood [Presence] in Urine by Visual Laboratory test result [facility] ([facility]) Clarity of Urine Laboratory test result [facility] ([facility]) pH of Urine by Test strip 6.0 5.0-7.5 [facility] ([facility]) Ua Specific [place] 1.010 1.003-1.030 [facility] ([facility]) Urobilinogen [Mass/volume] in Urine by Test strip 0.2 E.U./dL 0.0-1.0 [facility] ([facility]) Bilirubin.total [Presence] in Urine by Test strip Laboratory test res ult [facility] ([facility]) ID Date Data Source [id number] 04/08/2020 09:00:00 AM EDT [facility] Name Value Range Interpretation Code Description Data Elizabeth rce(s) Supporting Document(s) SARS-CoV-2 RNA Resp Ql MARIAN+probe [facility] This lab was ordered by [facility] and reported by [facility]. ID Date Data Source [id number] 04/05/2020 08:15:00 AM EDT [facility] Name Value Range Interpretation Code Description Data [facility](s) Supporting Document(s) WHITE BLOOD COUNT 6.63 10^3/uL 4.00-10.50 N [facility] RED BLOOD COUNT 3.91 10^6/uL 3.90-5.20 N [facility] HEMOGLOBIN 11.4 G/DL 11.5-15.6 L [facility] HEMATOCRIT 33.7 % 35.0-46.0 L [facility] MCV 86.2 FL 80.0-100.0 N [facility] MCH 29.2 PG 27.0-34.0 N [facility] [facility] MCHC 33.8 G/DL 32-36 N [facility] RDW 13.0 % 11.5-14.5 N [facility] PLATELET COUNT 213 10^3/uL 130-400 [facility] MPV 11.0 FL 8.7-13.2 N [facility] GRAN % (AUTO) 35.9 % 42.0-75.0 L [facility] LYMPH % (AUTO) 53.1 % 20.0-51.0 H [facility] MONO % (AUTO) 6.9 % 2.0-15.0 N [facility] EOS % (AUTO) 2.6 % 0.0-11.0 N [facility] BASO % (AUTO) 1.2 % 0.0-2.0 N [facility] IG % (AUTO) 0.3 % 1.00-5.00 [facility] IG # (AUTO) 0.0 10^3/uL <0.5 [facility] GRAN # (AUTO) 2.38 10^3/uL 1.50-6.50 N [facility] LYMPH # (AUTO) 3.5 k/uL 1.0-5.0 N [facility] MONO # (AUTO) 0.46 k/uL 0.20-1.50 N [facility] EOS # (AUTO) 0.17 10^3/uL 0.00-1.10 N [facility] BASO # (AUTO) 0.08 10^3/uL 0.00-0.20 [facility] ID Date Data Source [id number] 04/05/2020 08:23:00 AM EDT [facility] Name Value Range Interpretation Code Description Data Elizabeth rce(s) Supporting Document(s) SODIUM 145 MEQ/L 135-145 N [facility] POTASSIUM 4.0 MEQ/L 3.5-5.3 N [facility] CHLORIDE 111 MEQ/L 94-110 H [facility] CARBON DIOXIDE 27 MEQ/L 22-33 [facility] ANION GAP 11 5-16 N [facility] BLOOD UREA NITRO < 5 MG/DL 7-25 L [facility] CREATININE 0.7 MG/DL 0.6-1.4 [facility] GFR > 90.0 ML/MIN [facility] Stage G1 - Normal or high kidney functi on The GFR is an estimate of the Glomerular Filtration Rate. It is an aid to assess a patient's renal function. It is not a conclusive diagnosis of kidney disease. GFR normal is >=90 The MDRD GFR calculation is considered valid between the ages of 18 and 75 years only. BUN/CREAT RATIO 7 8-36 L [facility] GLUCOSE 81 MG/DL 70-100 N [facility] CA 8.9 MG/DL 8.7-10.5 [facility] BILIRUBIN,TOTAL 0.2 MG/DL 0.1-1.3 N [facility] AST 14 U/L 5-40 N [facility] ALT 19 U/L 5-48 [facility] ALKALINE PHOSPHATASE 60 U/L 40-[address] [facility] TOTAL PROTEIN 5.0 G/DL 5.9-8.3 L [facility] ALBUMIN 3.5 G/DL 3.0-5.1 [facility] GLOBULIN 1.5 G/DL 1.5-3.5 [facility] ALB/GLOB RATIO 2.3 G/DL 1.0-3.0 [facility] ID Date Data Source [id number] 04/03/2020 07:53:00 AM EDT [facility] Name Value Range Interpretation Code Description Data Elizabeth rce(s) Supporting Document(s) WHITE BLOOD COUNT 6.58 10^3/uL 4.00-10.50 N [facility] ealth RED BLOOD COUNT 3.61 10^6/uL 3.90-5.20 L [facility] th HEMOGLOBIN 10.7 G/DL 11.5-15.6 L [facility] HEMATOCRIT 31.6 % 35.0-46.0 L [facility] MCV 87.5 FL 80.0-100.0 N [facility] MCH 29.6 PG 27.0-34.0 N [facility] MCHC 33.9 G/DL 32-36 [facility] RDW 13.0 % 11.5-14.5 N [facility] PLATELET COUNT 181 10^3/uL 130-400 [facility] MPV 11.2 FL 8.7-13.2 N [facility] GRAN % (AUTO) 44.0 % 42.0-75.0 N [facility] LYMPH % (AUTO) 44.1 % 20.0-51.0 N [facility] MONO % (AUTO) 8.2 % 2.0-15.0 N [facility] EOS % (AUTO) 2.6 % 0.0-11.0 N [facility] BASO % (AUTO) 0.9 % 0.0-2.0 N [facility] IG % (AUTO) 0.2 % 1.00-5.00 [facility] IG # (AUTO) 0.0 10^3/uL <0.5 [facility] GRAN # (AUTO) 2.90 10^3/uL 1.50-6.50 N [facility] LYMPH # (AUTO) 2.9 k/uL 1.0-5.0 N [facility] MONO # (AUTO) 0.54 k/uL 0.20-1.50 N [facility] EOS # (AUTO) 0.17 10^3/uL 0.00-1.10 N [facility] BASO # (AUTO) 0.06 10^3/uL 0.00-0.20 N [facility] ID Date Data Source [id number] 04/03/2020 08:20:00 AM EDT [facility] Name Value Range Interpretation Code Description Data Elizabeth rce(s) Supporting Document(s) SODIUM 144 MEQ/L 135-145 [facility] POTASSIUM 4.0 MEQ/L 3.5-5.3 N [facility] CHLORIDE 111 MEQ/L 94-110 [facility] CARBON DIOXIDE 26 MEQ/L 22-33 [facility] ANION GAP 11 5-16 N [facility] BLOOD UREA NITRO < 5 MG/DL 7-25 L [facility] CREATININE 0.7 MG/DL 0.6-1.4 N [facility] GFR > 90.0 ML/MIN [facility] Stage G1 - Normal or high kidney functi on The GFR is an estimate of the Glomerular Filtration Rate. It is an aid to assess a patient's renal function. It is not a conclusive diagnosis of kidney disease. GFR normal is >=90 The MDRD GFR calculation is considered valid between the ages of 18 and 75 years only. BUN/CREAT RATIO 7 8-36 L [facility] GLUCOSE 86 MG/DL 70-100 N [facility] CA 8.3 MG/DL 8.7-10.5 L [facility] BILIRUBIN,TOTAL 0.2 MG/DL 0.1-1.3 [facility] AST 17 U/L 5-40 [facility] ALT 23 U/L 5-48 [facility] ALKALINE PHOSPHATASE 56 U/L 40-[address] [facility] TOTAL PROTEIN 4.6 G/DL 5.9-8.3 L [facility] ALBUMIN 3.1 G/DL 3.0-5.1 [facility] GLOBULIN 1.5 G/DL 1.5-3.5 [facility] ALB/GLOB RATIO 2.1 G/DL 1.0-3.0 [facility] ID Date Data Source [id number] 04/02/2020 12:24:00 PM EDT [address] [address] HEALTH INFORMATION MANAGEMENT Discharge Summary : [id number] Signed Patient: Madhavi Montalvo Acct:[id number] it: [id number] : 1980 Loc: [facility] Room/Bed: 311-A Age/Sex: 39 / F ADM [...] existing Martínez catheter. 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 03/30/2020 [...] Tenderness Extremities: negative Clubbing and Edema Skin: Tulsita and Warm Neurological: Awake/Oriented, Cranial nerves 3-12 [...] 0 bisacodyl 10 mg Suppository 10 mg LA DAILY PRN (Reason: Constipation) RF: 0 pantoprazole [...] Acute Headache (DC) Additional Instruction/Plan of Treatment: [facility]pc Transfer Facility Name Transferring to: [facility] Date of Admission: 03/28/20 Date of Discharge: [...] Tenderness Extremities: negative Clubbing and Edema Skin: Tulsita and Warm Neurological: Awake/Oriented, Cranial nerves 3-12 NL and Sensation intact; negative Strength at 5/5 X4 ext Psych/Mental Status: Alert, Oriented x 3 and Blunt Affect Employment Related: [ ]Yes [x ]No Orders: Diet: Regular diet Consistency: Regular with [...] (Routine); Ordered 04/02/20 Ordered By: Samina Dixon MIPS MIPS REVIEWED Did you review MIPS [...] GROWTH AFTER 5 DAYS 03/30/20 09:00 Urine,Catheterized [place] Count - Final 03/30/20 09:00 Urine,Catheterized Urine Culture - Final Escherichia Coli Klebsiella Pneumoniae 03/28/20 09:47 Urine,Clean Catch [place] Count - Final 03/28/20 09:47 Urine,Clean Catch Urine Culture - Final Lab Results Entire visit 04/02/20 04/02/20 04/01/20 06:41 06:41 07:15 WBC 6.04 RBC 3.49 L Hgb 10.5 L Hct 31.2 L MCV 89.4 MCH 30.1 MCHC 33.7 RDW 13.2 Plt Count 185 MPV 10.9 Gran % (Auto) 41.7 L Lymph % (Auto) 47.0 Waldo % (Auto) 7.1 Eos % (Auto) 3.0 Baso % (Auto) 1.0 Nucleat RBC Rel Count Not Reportable Gran # 2.52 Lymph # (Auto) 2.8 Waldo # (Auto) 0.43 Eos # (Auto) 0.18 [...] Urine Color Urine Appearance Urine pH Specific [place] (Man) Urine Protein Urine Glucose (UA) Urine [...] L Lymph % (Auto) 47.1 52.1 H [place] % (Auto) 7.3 7.4 Eos % (Auto) 3.1 2.3 Baso % (Auto) 0.5 0.9 Nucleat RBC Rel Count Not Reportable Not Reportable Gran # 2.29 2.10 Lymph # (Auto) 2.6 3.0 Waldo # (Auto) 0.40 0.42 Eos # (Auto) [...] Urine Color Urine Appearance Urine pH Specific [place] (Man) Urine Protein Urine Glucose (UA) Urine [...] 36.7 L Lymph % (Auto) 51.7 H [place] % (Auto) 7.5 Eos % (Auto) 2.4 Baso % (Auto) 1.5 Nucleat RBC Rel Count Not Reportable Gran # 1.96 Lymph # (Auto) 2.8 Waldo # (Auto) 0.40 Eos # (Auto) 0.13 [...] Urine Appearance CLEAR Urine pH 6.5 Specific [place] (Man) 1.005 Urine Protein NEGATIVE Urine Glucose [...] MPV Gran % (Auto) Lymph % (Auto) Waldo % (Auto) Eos % (Auto) Baso % (Auto) Nucleat RBC Rel Count Gran # Lymph # (Auto) Waldo # (Auto) Eos # (Auto) Baso # [...] Appearance CLOUDY H Urine pH 6.0 Specific [place] (Man) 1.006 Urine Protein NEGATIVE Urine Glucose (UA) NEGATIVE Urine Ketones NEGATIVE Urine Occult Blood NEGATIVE Urine Nitrate NEGATIVE Urine Bilirubin NEGATIVE Urine Urobilinogen 0.2-1.0 Ur Leukocyte Esterase SMALL H Urine WBC (Auto) 25- 49 H Urine RBC (Auto) 1-2 Urine Bacteria (Auto) MODERATE H Ur Epithelial Cells MODERATE Urine Mucus RARE COVID-19 03/28/20 03/28/20 03/28/20 09:47 09:47 09:47 WBC 6.76 RBC 4.54 Hgb 13.4 Hct 40.0 MCV 88.1 MCH 29.5 MCHC 33.5 RDW 13.2 Plt Count 231 MPV 10.9 Gran % (Auto) 50.4 Lymph % (Auto) 38.6 Waldo % (Auto) 7.8 Eos % (Auto) 1.9 Baso % (Auto) 1.0 Nucleat RBC Rel Count Not Reportable Gran # 3.40 Lymph # (Auto) 2.6 Waldo # (Auto) 0.53 Eos # (Auto) 0.13 [...] Urine Color Urine Appearance Urine pH Specific [place] (Man) Urine Protein Urine Glucose (UA) Urine Ketones Urine Occult Blood Urine Nitrate Urine Bilirubin Urine Urobilinogen Ur Leukocyte Esterase Urine WBC (Auto) Urine RBC (Auto) Urine Bacteria (Auto) Ur Epithelial Cells Urine Mucus COVID-19 PCR Hospitalist Charges Worksheet Subject to change for billing criteria Did you complete your Hospitalist charges for this visit?: Yes Inpatient [address] Hosp Discharge Day-greater than 30 minutes: Yes Signed By:Samina GARCIA <<Signature on File>> Signed Date/Time: 04/02/20 1254 Co-Signer: Marlon Nichols MD Co-Signed Date/Time: 04/02/20 1542 Initializing User: Samina GARCIA 04/02/20 1224 1224 1224 Name Value Range Interpretation Code Description Data Elizabeth rce(s) Supporting Document(s) ID Date Data Source [id number] 04/02/2020 12:24:00 [place] [address] HEALTH INFORMATION MANAGEMENT Discharge Plan : [id number] Signed Patient: Madhavi Montalvo Acct:[id number] Un it: [id number] : 1980 Loc: [facility] Room/Bed: 311-A Age/Sex: 39 / F ADM [...] 0 bisacodyl 10 mg Suppository 10 mg LA DAILY PRN (Reason: Constipation) RF: 0 pantoprazole [...] Acute Headache (DC) Additional Instruction/Plan of Treatment: Fpc Transfer Facility Name Transferring to: [facility] Date of Admission: 03/28/20 Date of Discharge: [...] Tenderness Extremities: negative Clubbing and Edema Skin: Tulsita and Warm Neurological: Awake/Oriented, Cranial nerves 3-12 [...] 1249 Co-Signer: Co-Signed Date/Time: Initializing User: Samina Dixon [employer] 04/02/20 1224 1224 1224 Name Value Range Interpretation Code Description Data Elizabeth rce(s) Supporting Document(s) ID Date Data Source [id number] 04/02/2020 07:33:00 AM EDT [facility] Name Value Range Interpretation Code Description Data Elizabeth rce(s) Supporting Document(s) WHITE BLOOD COUNT 6.04 10^3/uL 4.00-10.50 N [facility] ealth RED BLOOD COUNT 3.49 10^6/uL 3.90-5.20 L [facility] HEMOGLOBIN 10.5 G/DL 11.5-15.6 L [facility] HEMATOCRIT 31.2 % 35.0-46.0 L [facility] MCV 89.4 FL 80.0-100.0 N [facility] MCH 30.1 PG 27.0-34.0 N [facility] MCHC 33.7 G/DL 32-36 N [facility] RDW 13.2 % 11.5-14.5 N [facility] PLATELET COUNT 185 10^3/uL 130-400 N [facility] MPV 10.9 FL 8.7-13.2 N [facility] GRAN % (AUTO) 41.7 % 42.0-75.0 L [facility] LYMPH % (AUTO) 47.0 % 20.0-51.0 N [facility] MONO % (AUTO) 7.1 % 2.0-15.0 N [facility] EOS % (AUTO) 3.0 % 0.0-11.0 N [facility] BASO % (AUTO) 1.0 % 0.0-2.0 N [facility] IG % (AUTO) 0.2 % 1.00-5.00 [facility] IG # (AUTO) 0.0 10^3/uL <0.5 [facility] GRAN # (AUTO) 2.52 10^3/uL 1.50-6.50 N [facility] LYMPH # (AUTO) 2.8 k/uL 1.0-5.0 N [facility] MONO # (AUTO) 0.43 k/uL 0.20-1.50 N [facility] EOS # (AUTO) 0.18 10^3/uL 0.00-1.10 N [facility] BASO # (AUTO) 0.06 10^3/uL 0.00-0.20 N [facility] ID Date Data Source [id number] 04/02/2020 07:58:00 AM EDT [facility] Name Value Range Interpretation Code Description Data Elizabeth rce(s) Supporting Document(s) SODIUM 143 MEQ/L 135-145 N [facility] POTASSIUM 3.9 MEQ/L 3.5-5.3 N [facility] CHLORIDE 110 MEQ/L 94-110 N [facility] CARBON DIOXIDE 27 MEQ/L 22-33 N [facility] ANION GAP 10 5-16 N [facility] BLOOD UREA NITRO 6 MG/DL 7-25 L [facility] CREATININE 0.7 MG/DL 0.6-1.4 N [facility] GFR > 90.0 ML/MIN [facility] Stage G1 - Normal or high kidney functi on The GFR is an estimate of the Glomerular Filtration Rate. It is an aid to assess a patient's renal function. It is not a conclusive diagnosis of kidney disease. GFR normal is >=90 The MDRD GFR calculation is considered valid between the ages of 18 and 75 years only. BUN/CREAT RATIO 8 8-36 N [facility] GLUCOSE 88 MG/DL 70-100 N [facility] CA 8.4 MG/DL 8.7-10.5 L [facility] ID Date Data Source [id number] 04/01/2020 10:12:00 AM EDT [address] [place] [address] HEALTH INFORMATION MANAGEMENT PCM-Progress Note : [id number] Signed Patient: Madhavi Montalvo Acct:[id number] it: [id number] : 1980 Loc: [facility] Room/Bed: 311-A Age/Sex: 39 / F ADM [...] existing Martínez catheter. Prior to discharge from [facility] she had complained of cough and [...] 100 ml @ 200 mls/hr IV Q6H REPLACED BY [facility] Rx#: [id number] Oral [birth year] 1580 / 1580 480 / 480 Output: Output, Indwelling Catheter 2200 / 2200 2650 / 2650 1250 / 1250 Amount Other: Total, Intake Amount 100 500 480 Date of Last Bowel Movement 03/30/20 03/30/20 Bowel Movement Amount Medium Total, Output Amount 7731 199 4505 Voiding Method Indwelling Catheter Indwelling Catheter # [...] Tenderness Extremities: negative Clubbing and Edema Skin: Tulsita and Warm Neurological: Awake/Oriented, Cranial nerves 3-12 [...] by: Hydrocodone Bitart/Acetaminophen (Lortab 5/325 Tablet (Vicodin, [place])) 1 tab PO Q6HPRN PRN PRN Reason: UNBEARABLE PAIN LEVEL 10 Last Admin: 04/01/20 09:20 Dose: 1 tab Documented by: Al Hydroxide/Mg [place] xide (Maalox Plus Susp (Liquid Antacid)) 15 ml PO Q4HPRN PRN PRN Reason: Indigestion Albuterol Sulfate (Ventolin Aerosol) 2.5 mg INHALATION QIDPRN PRN PRN Reason: Wheezing Amoxicillin/Clavulanate Potassium (Augmentin 875 Mg Tablet) 1 tab PO BID REPLACED BY [facility]; Protocol Last Admin: 04/01/20 09:29 Dose: 1 tab Documented by: Bisacodyl (Dulcolax Suppository) 10 mg RECTAL BIDPRN PRN PRN Reason: constipation Last Admin: 04/01/20 09:23 Dose: 10 mg Documented by: Buspirone HCl (Buspar Tablet) 10 mg PO BID REPLACED BY [facility] Last Admin: 04/01/20 09:20 Dose: 10 mg Documented by: Duloxetine HCl (Cymbalta Capsule) 60 mg PO DAILY REPLACED BY [facility] Last Admin: 04/01/20 09:20 Dose: 60 mg Documented by: Enoxaparin Sodium (Lovenox Inj) 40 mg SUBCUTAN Q24H REPLACED BY [facility] Last Admin: 03/31/20 18:51 Dose: 40 mg Documented by: Escitalopram Oxalate (Lexapro Tablet) 5 mg PO DAILY REPLACED BY [facility] Last Admin: 04/01/20 09:22 Dose: 5 mg Documented by: Folic Acid (Folic Acid Tablet) 1 mg PO DAILY REPLACED BY [facility] Last Admin: 04/01/20 09:22 Dose: 1 mg Documented by: Gabapentin (Neurontin Capsule) 200 mg PO TID REPLACED BY [facility] Last Admin: 04/01/20 09:19 Dose: 200 mg Documented by: Guaifenesin (Robitussin Plain Syrup Ud Cup) 200 mg PO Q4HPRN PRN PRN Reason: COUGH Hydroxychloroquine Sulfate (Plaquenil Tablet) 200 mg PO DAILY REPLACED BY [facility] Last Admin: 04/01/20 09:20 Dose: 200 mg Documented by: Ketorolac Tromethamine (Toradol Injection) 30 mg IV Q6H PRN PRN Reason: MODERATE PAIN LEVEL 4-6 Stop: 04/05/20 14:48 Levetiracetam (Keppra Tablet) 500 mg PO BID REPLACED BY [facility] Last Admin: 04/01/20 09:21 Dose: 500 mg Documented by: Loperamide HCl (Imodium Capsule) 2 mg PO Q6HPRN PRN PRN Reason: DIARRHEA Magnesium Hydroxide (Milk Of Magnesia Susp Ud-Cup) 30 ml PO DAILYPRN PRN PRN Reason: CONSTIPATION Metoprolol Tartrate (Lopressor Tablet) 50 mg PO BID REPLACED BY [facility] Last Admin: 04/01/20 09:24 Dose: 50 mg Documented by: Ondansetron HCl (Zofran Injection) 4 mg IV PUSH Q4HPRN PRN PRN Reason: NAUSEA / VOMITING Pantoprazole Sodium (Protonix Tablet) 40 mg PO DAILY@0600-EMPTYSTOM REPLACED BY [facility] Last Admin: 04/01/20 05:46 Dose: 40 mg Documented by: Promethazine HCl (Phenergan Injection) 25 mg IM Q6HPRN PRN PRN Reason: HEADACHE Last Admin: 03/31/20 02:43 Dose: 25 mg Documented by: Saccharomyces Boulardii (Florastor Cap) 250 mg PO BID REPLACED BY [facility] Last Admin: 04/01/20 09:21 Dose: 250 mg Documented by: Senna (Senokot (Senna) 8.6 Mg Tablet) 2 tab PO BID REPLACED BY [facility] Last Admin: 04/01/20 09:23 Dose: 2 tab Documented by: Sodium Chloride (Saline Lock Flush Protocol) 1 each IV FLUSH QSHIFT REPLACED BY [facility] Last Admin: 04/01/20 09:29 Dose: 1 each Documented by: Sumatriptan Succinate (Imitrex Tablet) 50 mg PO Q2HPRN PRN PRN Reason: Migraine Headache Last Admin: 03/31/20 01:49 Dose: 50 mg Documented by: Thiamine HCl (Vitamin B-1 Tablet) 100 mg PO DAILY REPLACED BY [facility] Last Admin: 04/01/20 09:20 Dose: 100 mg Documented by: Throat Lozenges (Chloraseptic Throat [place]) 1 applic MUC MEMB Q2HPRN PRN PRN Reason: SORE THROAT Tiotropium [place] (Spiriva Inhaler) 1 inhalation INHALATION RT-DAILY REPLACED BY [facility] Last Admin: 04/01/20 07:36 Dose: Not Given Documented by: Trazodone HCl (Desyrel Tablet) 50 mg PO HS REPLACED BY [facility] Last Admin: 03/31/20 21:24 Dose: 50 mg Documented by: Result Diagrams: 04/01/20 07:15 04/01/20 07:15 Lab Results: Microbiology (Last 12 Hour Results- Final) 03/30/20 09:00 Urine,Catheterized [place] Count - Final Laboratory (Last 12 hours Results) 04/01/20 04/01/20 07:15 07:15 WBC 5.50 RBC 3.58 L Hgb 10.6 L Hct 31.5 L MCV 88.0 MCH 29.6 MCHC 33.7 RDW 13.2 Plt Count 180 MPV 10.9 Gran % (Auto) 41.6 L Lymph % (Auto) 47.1 [place] % (Auto) 7.3 Eos % (Auto) 3.1 Baso % (Auto) 0.5 Nucleat RBC Rel Count Not Reportable Gran # 2.29 Lymph # (Auto) 2.6 [place] # (Au to) 0.40 Eos # (Auto) [...] Patient considered low suspicion Screening completed per [facility] care request prior to return Negative 03/30/2020 [...] Hospitalist charges for this visit?: Yes Inpatient 72[address] Subsequent INpt-Mod (less than/equal 25 minutes): Yes Signed By:Samina GARCIA <<Signature on File>> Signed Date/Time: 04/01/20 1021 Co-Signer: Co-Signed Date/Time: Initializing User: Samina GARCIA 04/01/20 1012 1012 1012 Name Value Range Interpretation Code Description Data Elizabeth rce(s) Supporting Document(s) ID Date Data Source [id number] 04/01/2020 07:58:00 AM EDT [facility] Name Value Range Interpretation Code Description Data Elizabeth rce(s) Supporting Document(s) WHITE BLOOD COUNT 5.50 10^3/uL 4.00-10.50 N [facility] RED BLOOD COUNT 3.58 10^6/uL 3.90-5.20 L [facility] HEMOGLOBIN 10.6 G/DL 11.5-15.6 L [facility] HEMATOCRIT 31.5 % 35.0-46.0 L [facility] MCV 88.0 FL 80.0-100.0 N [facility] MCH 29.6 PG 27.0-34.0 N [facility] MCHC 33.7 G/DL 32-36 N [facility] RDW 13.2 % 11.5-14.5 N [facility] PLATELET COUNT 180 10^3/uL 130-400 N [facility] MPV 10.9 FL 8.7-13.2 N [facility] GRAN % (AUTO) 41.6 % 42.0-75.0 L [facility] LYMPH % (AUTO) 47.1 % 20.0-51.0 N [facility] MONO % (AUTO) 7.3 % 2.0-15.0 N [facility] EOS % (AUTO) 3.1 % 0.0-11.0 N [facility] BASO % (AUTO) 0.5 % 0.0-2.0 N [facility] IG % (AUTO) 0.4 % 1.00-5.00 [facility] IG # (AUTO) 0.0 10^3/uL <0.5 [facility] GRAN # (AUTO) 2.29 10^3/uL 1.50-6.50 N [facility] LYMPH # (AUTO) 2.6 k/uL 1.0-5.0 N [facility] MONO # (AUTO) 0.40 k/uL 0.20-1.50 N [facility] EOS # (AUTO) 0.17 10^3/uL 0.00-1.10 N [facility] BASO # (AUTO) 0.03 10^3/uL 0.00-0.20 N [facility] ID Date Data Source [id number] 04/01/2020 08:20:00 AM EDT [facility] Name Value Range Interpretation Code Description Data Elizabeth rce(s) Supporting Document(s) SODIUM 143 MEQ/L 135-145 N [facility] POTASSIUM 4.0 MEQ/L 3.5-5.3 N [facility] CHLORIDE 112 MEQ/L 94-110 H [facility] CARBON DIOXIDE 26 MEQ/L 22-33 N [facility] ANION GAP 9 5-16 N [facility] BLOOD UREA NITRO 7 MG/DL 7-25 N [facility] CREATININE 0.6 MG/DL 0.6-1.4 N [facility] GFR > 90.0 ML/MIN [facility] Stage G1 - Normal or high kidney functi on The GFR is an estimate of the Glomerular Filtration Rate. It is an aid to assess a patient's renal function. It is not a conclusive diagnosis of kidney disease. GFR normal is >=90 The MDRD GFR calculation is considered valid between the ages of 18 and 75 years only. BUN/CREAT RATIO 11 8-36 N [facility] GLUCOSE 94 MG/DL 70-100 N [facility] CA 8.5 MG/DL 8.7-10.5 L [facility] ID Date Data Source [id number] 03/31/2020 02:35:00 PM EDT [address] [address] HEALTH INFORMATION MANAGEMENT PCM-Progress Note : [id number] Signed Patient: Madhavi Montalvo Acct:[id number] it: [id number] : 1980 Loc: [facility] Room/Bed: 311-A Age/Sex: 39 / F ADM [...] existing Martínez catheter. Prior to discharge from [facility] she had complained of cough and [...] 100 ml @ 200 mls/hr IV Q[facility]H [facility] [facility] Rx#: [id number] Oral 600 / 600 1959 / 1959 480 / 480 Output: Urine 750 / [...] Tenderness Extremities: negative Clubbing and Edema Skin: [place] and Warm Neurological: Awake/Oriented, Cranial nerves 3-12 [...] by: Hydrocodone Bitart/Acetaminophen (Lortab 5/325 Tablet (Vicodin, [place])) 1 tab PO Q6HPRN PRN PRN Reason: UNBEARABLE PAIN LEVEL 10 Last Admin: 03/31/20 09:52 Dose: 1 tab Documented by: Al Hydroxide/Mg Hydroxide (Maalox Plus Susp (Liquid Antacid)) 15 ml PO Q4HPRN PRN PRN Reason: Indigestion Albuterol Sulfate (Ventolin Aerosol) 2.5 mg INHALATION QIDPRN PRN PRN Reason: Wheezing Amoxicillin/Clavulanate Potassium (Augmentin 875 Mg Tablet) 1 tab PO BID REPLACED BY [facility]; Protocol Last Admin: 03/31/20 09:47 Dose: 1 tab Documented by: Buspirone HCl (Buspar Tablet) 10 mg PO BID REPLACED BY [facility] Last Admin: 03/31/20 09:28 Dose: 10 mg Documented by: Duloxetine HCl (Cymbalta Capsu le) 60 mg PO DAILY REPLACED BY [facility] Last Admin: 03/31/20 09:48 Dose: 60 mg Documented by: Enoxaparin Sodium (Lovenox Inj) 40 mg SUBCUTAN Q24H REPLACED BY [facility] Last Admin: 03/30/20 18:05 Dose: 40 mg Documented by: Escitalopram Oxalate (Lexapro Tablet) 5 mg PO DAILY REPLACED BY [facility] Last Admin: 03/31/20 09:30 Dose: 5 mg Documented by: Folic Acid (Folic Acid Tablet) 1 mg PO DAILY REPLACED BY [facility] Last Admin: 03/31/20 09:29 Dose: 1 mg Documented by: Gabapentin (Neurontin Capsule) 200 mg PO TID REPLACED BY [facility] Last Admin: 03/31/20 09:30 Dose: 200 mg Documented by: Guaifenesin (Robitussin Plain Syrup Ud Cup) 200 mg PO Q4HPRN PRN PRN Reason: COUGH Hydroxychloroquine Sulfate (Plaquenil Tablet) 200 mg PO DAILY REPLACED BY [facility] Last Admin: 03/31/20 09:47 Dose: 200 mg Documented by: Levetiracetam (Keppra Tablet) 500 mg PO BID REPLACED BY [facility] Last Admin: 03/31/20 09:28 Dose: 500 mg Documented by: Loperamide HCl (Imodium Capsule) 2 mg PO Q6HPRN PRN PRN Reason: DIARRHEA Magnesium Hydroxide (Milk Of Magnesia Susp Ud-Cup) 30 ml PO DAILYPRN PRN PRN Reason: CONSTIPATION Metoprolol Tartrate (Lopressor Tablet) 50 mg PO BID REPLACED BY [facility] Last Admin: 03/31/20 09:29 Dose: 50 mg Documented by: Ondansetron HCl (Zofran Injection) 4 mg IV PUSH Q4HPRN PRN PRN Reason: NAUSEA / VOMITING Pantoprazole Sodium (Protonix Tablet) 40 mg PO DAILY@0600-EMPTYSTOM REPLACED BY [facility] Last Admin: 03/31/20 05:38 Dose: 40 mg Documented by: Promethazine HCl (Phenergan Injection) 25 mg IM Q6HPRN PRN PRN Reason: HEADACHE Last Admin: 03/31/20 02:43 Dose: 25 mg Documented by: Saccharomyces Boulardii (Florastor Cap) 250 mg PO BID REPLACED BY [facility] Last Admin: 03/31/20 09:31 Dose: 250 mg Documented by: Senna (Senokot (Senna) 8.6 Mg Tablet) 2 tab PO BID REPLACED BY [facility] Last Admin: 03/31/20 09:27 Dose: 2 tab Documented by: Sodium Chloride (Saline Lock Flush Protocol) 1 each IV FLUSH QSHIFT REPLACED BY [facility] Last Admin: 03/31/20 09:48 Dose: 1 each Documented by: Sumatriptan Succinate (Imitrex Tablet) 50 mg PO Q2HPRN PRN PRN Reason: Migraine Headache Last Admin: 03/31/20 01:49 Dose: 50 mg Documented by: Thiamine HCl (Vitamin B-1 Tablet) 100 mg PO DAILY REPLACED BY [facility] Last Admin: 03/31/20 09:27 Dose: 100 mg Documented by: Throat Lozenges (Chloraseptic Throat [place]) 1 applic MUC MEMB Q2HPRN PRN PRN Reason: SORE THROAT Tiotropium [place] (Spiriva Inhaler) 1 inhalation INHALATION RT-DAILY REPLACED BY [facility] Last Admin: 03/31/20 09:33 Dose: Not Given Documented by: Trazodone HCl (Desyrel Tablet) 50 mg PO HS REPLACED BY [facility] Last Admin: 03/30/20 20:35 Dose: 50 mg Documented by: Result Diagrams: 03/31/20 06:27 03/31/20 06:27 Lab Results: Microbiology (Last 12 Hour Results- Final) 03/30/20 09:00 Urine,Catheterized [place] Count - Final Laboratory (Last 12 hours Results) 03/31/20 03/31/20 06:27 06:27 WBC 5.66 RBC 3.69 L Hgb 10.8 L Hct 31.6 L MCV 85.6 MCH 29.3 MCHC 34.2 RDW 13.2 Plt Count 165 MPV 11.3 Gran % (Auto) 37.1 L Lymph % (Auto) 52.1 H [place] % (Auto) 7.4 Eos % (Auto) 2.3 Baso % (Auto) 0.9 Nucleat RBC Rel Count Not Reportable Gran # 2.10 Lymph # (Auto) 3.0 [place] # (Auto) 0.42 Eos # (Auto) 0.13 [...] Patient considered low suspicion 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 Negative 03/30/2020 [...] Hospitalist charges for this visit?: Yes Inpatient 22680 Subsequent INpt-Mod (less than/equal 25 minutes): Yes Signed By:Samina GARCIA <<Signature on File>> Signed Date/Time: 03/31/20 1454 Co-Signer: Co-Signed Date/Time: Initializing User: Samina GARCIA 1434 34 34 Name Value Range Interpretation Code Description Data Elizabeth rce(s) Supporting Document(s) ID Date Data Source [id number] 03/31/2020 11:59:00 [place] [address] Patient Name: Madhavi Montalvo Exam Date: 03/31/20 : 1980 Ordering Doctor: Samina GARCIA Attending Doctor: Samina GARCIA CC: [facility] MRI CERVICAL SPINE WITHOUT CONTRAST CLINICAL [...] cervical spine MRI. Professional interpretation performed at [facility] . End of diagnostic report: [id number] Signed: Callum Jackson MD 04/02/20 1203 Interpreted by: Yusuf Jacksonscribed by: Callum Jackson Name Value Range Interpretation Code Description Data Elizabeth rce(s) Supporting Document(s) ID Date Data Source [id number] 03/31/2020 11:59:00 AM EDT [address] [address] Patient Name: Madhavi Montalvo Exam Date: 03/31/20 : 1980 Ordering Doctor: Samina GARCIA Attending Doctor: Samina GARCIA CC: [facility] MRI BRAIN WITHOUT CONTRAST CLINICAL STATEMENT: [...] Normal brain MRI. Professional interpretation performed at [facility] . End of diagnostic report: [id number] Signed: Callum Jackson MD 04/02/20 1202 Interpreted by: Yusuf Jacksonscribed by: Callum Jackson Name Value Range Interpretation Code Description Data Elizabeth rce(s) Supporting Document(s) ID Date Data Source [id number] 03/31/2020 07:35:00 AM EDT [facility] Name Value Range Interpretation Code Description Data Elizabeth rce(s) Supporting Document(s) WHITE BLOOD COUNT 5.66 10^3/uL 4.00-10.50 N [facility] ealth RED BLOOD COUNT 3.69 10^6/uL 3.90-5.20 L [facility] th HEMOGLOBIN 10.8 G/DL 11.5-15.6 L [facility] HEMATOCRIT 31.6 % 35.0-46.0 L [facility] MCV 85.6 FL 80.0-100.0 N [facility] MCH 29.3 PG 27.0-34.0 N [facility] MCHC 34.2 G/DL 32-36 N [facility] RDW 13.2 % 11.5-14.5 N [facility] PLATELET COUNT 165 10^3/uL 130-400 N [facility] MPV 11.3 FL 8.7-13.2 N [facility] GRAN % (AUTO) 37.1 % 42.0-75.0 L [facility] LYMPH % (AUTO) 52.1 % 20.0-51.0 H [facility] MONO % (AUTO) 7.4 % 2.0-15.0 N [facility] EOS % (AUTO) 2.3 % 0.0-11.0 N [facility] BASO % (AUTO) 0.9 % 0.0-2.0 N [facility] IG % (AUTO) 0.2 % 1.00-5.00 [facility] IG # (AUTO) 0.0 10^3/uL <0.5 [facility] GRAN # (AUTO) 2.10 10^3/uL 1.50-6.50 N [facility] LYMPH # (AUTO) 3.0 k/uL 1.0-5.0 N [facility] MONO # (AUTO) 0.42 k/uL 0.20-1.50 N [facility] EOS # (AUTO) 0.13 10^3/uL 0.00-1.10 N [facility] BASO # (AUTO) 0.05 10^3/uL 0.00-0.20 N [facility] ID Date Data Source [id number] 03/31/2020 07:59:00 AM EDT [facility] Name Value Range Interpretation Code Description Data Elizabeth rce(s) Supporting Document(s) SODIUM 143 MEQ/L 135-145 N [facility] POTASSIUM 4.3 MEQ/L 3.5-5.3 N [facility] CHLORIDE 111 MEQ/L 94-110 H [facility] CARBON DIOXIDE 25 MEQ/L 22-33 N [facility] ANION GAP 11 5-16 N [facility] BLOOD UREA NITRO 7 MG/DL 7-25 N [facility] CREATININE 0.7 MG/DL 0.6-1.4 N [facility] GFR > 90.0 ML/MIN [place] [facility] G1 - Normal or high kidney functi on The GFR is an estimate of the Glomerular Filtration Rate. It is an aid to assess a patient's renal function. It is not a conclusive diagnosis of kidney disease. GFR normal is >=90 The MDRD GFR calculation is considered valid between the ages of 18 and 75 years only. BUN/CREAT RATIO 10 8-36 N [facility] GLUCOSE 79 MG/DL 70-100 N [facility] CA 8.6 MG/DL 8.7-10.5 L [facility] ID Date Data Source [id number] 03/30/2020 12:54:00 PM EDT [facility] [address] [address] HEALTH INFORMATION MANAGEMENT PCM-Progress Note : [id number] Signed Patient: Madhavi Montalvo Acct:[id number] it: [id number] : 1980 Loc: ICU [facility] Age/Sex: 39 / F ADM Date: [...] existing Martínez catheter. Prior to discharge from [facility] she had complained of cough and [...] ml @ 400 mls/hr IV ONCE ONE Rx#:[id number] Sodium Chloride 0.9% Infusion 1 1000 / 1000 ,000 ml @ 999 mls/hr IV ONCE ONE Rx#:[id number] Oral 120 / 120 600 / 600 880 / 880 Output: Urine 750 / 750 Output, Indwelling Catheter 850 / 850 150 / 150 1050 / 1050 Amount Other: Total, Intake Amount 120 480 400 Date of Last Bowel Movement 03/27/20 03/27/20 Total, Output Amount [phone] Voiding Method Indwelling Catheter Indwelling Catheter Weight [...] Tenderness Extremities: negative Clubbing and Edema Skin: [place]uls[place] and Warm Neurological: Awake/Oriented, Cranial nerves 3-12 [...] HCl (Buspar Tablet) 10 mg PO BID REPLACED BY [facility] Last Admin: 03/30/20 08:49 Dose: 10 mg Documented by: Duloxetine HCl (Cymbalta Capsule) 60 mg PO DAILY REPLACED BY [facility] Last Admin: 03/30/20 08:49 Dose: 60 mg Documented by: Enoxaparin Sodium (Lovenox Inj) 40 mg SUBCUTAN Q24H REPLACED BY [facility] Last Admin: 03/29/20 17:32 Dose: 40 mg Documented by: Escitalopram Oxalate (Lexapro Tablet) 5 mg PO DAILY REPLACED BY [facility] Last Admin: 03/30/20 08:50 Dose: 5 mg Documented by: Folic Acid (Folic Acid Tablet) 1 mg PO DAILY REPLACED BY [facility] Last Admin: 03/30/20 08:51 Dose: 1 mg Documented by: Gabapentin (Neurontin Capsule) 200 mg PO TID REPLACED BY [facility] Last Admin: 03/30/20 08:48 Dose: 200 mg Documented by: Guaifenesin (Robitussin Plain Syrup Ud Cup) 200 mg PO Q4HPRN PRN PRN Reason: COUGH Hydroxychloroquine Sulfate (Plaquenil Tablet) 200 mg PO DAILY REPLACED BY [facility] Last Admin: 03/30/20 08:48 Dose: 200 mg Documented by: Imipenem/Cilastatin Sodium 500 (mg/ Sodium Chloride) 100 mls @ 200 mls/hr IV Q6H REPLACED BY [facility] Last Admin: 03/30/20 12:15 Dose: 200 mls/hr Documented by: Ketorolac Tromethamine (Toradol Injection) 30 mg IV Q6H PRN PRN Reason: SEVERE PAIN LEVEL 7-9 Stop: 04/03/20 13:37 Last Admin: 03/30/20 06:37 Dose: 30 mg Documented by: Levetiracetam (Keppra Tablet) 500 mg PO BID REPLACED BY [facility] Last Admin: 03/30/20 08:49 Dose: 500 mg Documented by: Loperamide HCl (Imodium Capsule) 2 mg PO Q6HPRN PRN PRN Reason: DIARRHEA Magnesium Hydroxide (Milk Of Magnesia Susp Ud-Cup) 30 ml PO DAILYPRN PRN PRN Reason: CONSTIPATION M etoprolol Tartrate (Lopressor Tablet) 50 mg PO BID REPLACED BY [facility] Miscellaneous Medication (Methotrexate Sodium [Trexall]) 7.5 mg PO Q7DAYS REPLACED BY [facility] Ondansetron HCl (Zofran Injection) 4 mg IV PUSH Q4HPRN PRN PRN Reason: NAUSEA / VOMITING Pantoprazole Sodium (Protonix Tablet) 40 mg PO DAILY@0600-EMPTYSTOM REPLACED BY [facility] Last Admin: 03/30/20 06:37 Dose: 40 mg Documented by: Senna (Senokot (Senna) 8.6 Mg Tablet) 2 tab PO BID REPLACED BY [facility] Last Admin: 03/30/20 08:50 Dose: 2 tab Documented by: Sodium Chloride (Saline Lock Flush Protocol) 1 each IV FLUSH QSHIFT REPLACED BY [facility] Last Admin: 03/30/20 08:51 Dose: 1 each Documented by: Sumatriptan Succinate (Imitrex Tablet) 50 mg PO Q2HPRN PRN PRN Reason: Migraine Headache Last Admin: 03/30/20 12:14 Dose: 50 mg Documented by: Thiamine HCl (Vitamin B-1 Tablet) 100 mg PO DAILY REPLACED BY [facility] Last Admin: 03/30/20 08:50 Dose: 100 mg Documented by: Throat Lozenges (Chloraseptic Throat [place]) 1 applic MUC MEMB Q2HPRN PRN PRN Reason: SORE THROAT Tiotropium [place] (Spiriva Inhaler) 1 inhalation INHALATION RT-DAILY REPLACED BY [facility] Last Admin: 03/30/20 07:05 Dose: Not Given Documented by: Trazodone HCl (Desyrel Tablet) 50 mg PO HS REPLACED BY [facility] Result Diagrams: 03/29/20 06:56 03/29/20 06:56 Lab Results: Laboratory (Last 12 hours Results) 03/30/20 09:00 Urine Color STRAW Urine Appearance CLEAR Urine pH 6.5 Specific [place] (Man) 1.005 Urine Protein NEGATIVE Urine Glucose [...] Patient considered low suspicion Screening completed per fci care request prior to return Negative 03/30/2020 [...] Hospitalist charges for this visit?: Yes Inpatient [id number] Subsequent INpt-Mod (less than/equal 25 minutes): Yes Signed By:Samina GARCIA <<Signature on File>> Signed Date/Time: 03/30/20 1326 Co-Signer: Co-Signed Date/Time: Initializing User: Samina GARCIA 03/30/20 1254 1254 1254 Name Value Range Interpretation Code Description Data Elizabeth rce(s) Supporting Document(s) ID Date Data Source [id number] 03/30/2020 12:14:00 PM EDT [address] [address] HEALTH INFORMATION MANAGEMENT Nutritional Care Progress Note : [id number] Signed Patient: Madhavi Montalvo Acct:[id number] Un it: [id number] : 1980 Loc: ICU [facility] Age/Sex: 39 / F ADM Date: 03/28/20 cc: Nutrition Considerations - Considerations Assessment/PMH: Chief Complaint:[Headache with shortness of breath ] PMH:[Asthma, Chronic headache, Lupus, IBS, Fibromyalgia, and anoxic brain injury] Skin Status: Intact: Yes Eating Difficulties: No Problem Other Nu tritionally Related Considerations: Nausea Blood Pressure WNL: WNL 90/50- 139/89mmHg Herbal Supplement: No Nondenominational or Cultural Food Restrictions: No - Initial [...] 17:32 Lovenox Inj SUBCUTAN 40 mg Q24H REPLACED BY [facility] Administration Escitalopram Oxalate 5 mg 03/29/20 09:00 03/30/20 08:50 Lexapro Tablet PO 5 mg DAILY REPLACED BY [facility] Administration Folic Acid 1 mg 03/29/20 09:00 03/30/20 08:51 Folic Acid Tablet PO 1 mg DAILY [facility] Administration Gabapentin 200 mg 03/28/20 21:00 03/30/20 08:48 Neurontin Capsule PO 200 mg TID REPLACED BY [facility] Administration Guaifenesin 200 mg 03/28/20 15:23 Robitussin Plain Syrup Ud Cup PO Q4HPRN PRN COUGH Hydroxychloroquine Sulfate 200 mg 03/29/20 09:00 03/30/20 08:48 Plaquenil Tablet PO 200 mg DAILY REPLACED BY [facility] Administration Imipenem/Cilastatin Sodium 500 100 mls @ 200 mls/hr 03/30/20 12:00 mg/ Sodium Chloride IV Q6H REPLACED BY [facility] Ketorolac Tromethamine 30 mg 03/29/20 13:40 03/30/20 06:37 Toradol Injection IV 04/03/20 13:37 30 mg Q6H PRN Administration SEVERE PAIN LEVEL 7-9 Levetiracetam 500 mg 03/28/20 21:00 03/30/20 08:49 Keppra Tablet PO 500 mg BID REPLACED BY [facility] Administration Loperamide HCl 2 mg 03/28/20 15:23 Imodium Capsule PO Q6HPRN PRN DIARRHEA Magnesium Hydroxide 30 ml 03/28/20 15:23 Milk Of Magnesia Susp Ud-Cup PO DAILYPRN PRN CONSTIPATION Metoprolol Tartrate 50 mg 03/28/20 21:00 Lopressor Tablet PO BID REPLACED BY [facility] Miscellaneous Medication 7.5 mg 04/04/20 09:00 Methotrexate Sodium [Trexall] PO Q7DAYS REPLACED BY [facility] Ondansetron HCl 4 mg 03/28/20 15:23 Zofran Injection IV PUSH Q4HPRN PRN NAUSEA / VOMITING Pantoprazole Sodium 40 mg 03/29/20 06:00 03/30/20 06:37 Protonix Tablet PO 40 mg DAILY@0600-EMPTYSTOM REPLACED BY [facility] Administration Senna 2 tab 03/28/20 21:00 03/30/20 08:50 Senokot (Senna) 8.6 Mg Tablet PO 2 tab BID REPLACED BY [facility] Administration Sodium Chloride 1 each 03/28/20 16:00 [...] 1 applic 03/28/20 15:23 Chloras eptic Throat [place] MUC MEMB Q2HPRN PRN SORE THROAT Tiotropium [place] 1 inhalation 03/29/20 07:00 03/30/20 07:05 Spiriva [...] Fluid Needs:: 1800 cc - IBW Calculated [place] Body Weight (IBW): 124.80 Adjusted Body Weight (ABW): 132.84 % [place] Body Weight (%IBW): 126 Body Mass Index [...] Co-Signer: Co-Signed Date/Time: Initializing User: Brendan Prieto 03/164 13 13 Name Value Range Interpretation Code Description Data Elizabeth rce(s) Supporting Document(s) ID Date Data Source [id number] 03/30/2020 10:45:00 AM [facility] [facility]: 04/02/20810 INTERFACED REPORT Name: Madhavi Montalvo Age/Sex: 39/F Location: [facility] Acct: [id number] Unit: [id number] Status: ADM IN Room/Bed: 311-A Re03/28/20 Disch: Glenn Dr: Samina Dixon [employer] Specimen #: [id number] Ordered : 03/30/20 Collected : 03/30/20 By: [...] 0811 INTERFACED REPORT ------- ----- Specimen #: [id number] (Continued) Ordered : 03/30/20 Collected : 03/30/20 [...] Run: 04/02/20 0811 INTERFACED REPORT Specimen #: [id number] (Continued) Ordered : 03/30/20 Collected : 03/30/20 By: CHANDNI Received: 03/30/20 By: KIAOPPER Procedure Result URINE CULTURE Preliminary (Corrected) (continued) [...] Elizabeth rce(s) Supporting Document(s) COLOR,UR STRAW YELLOW [facility] APPEARANCE,UR CLEAR CLEAR [facility] PH,UR 6.5 5.0-8.0 [facility] SPECIFIC GRAVITY,UR 1.005 1.002-1.035 N [facility] PROTEIN,UR NEGATIVE MG/DL NEGATIVE [facility] GLUCOSE, UR NEGATIVE MG/DL NEGATIVE [facility] KETONES,UR NEGATIVE MG/DL NEGATIVE [facility] OCCULT BLOOD,UR TRACE NEGATIVE A [facility] NITRATE,UR POSITIVE NEGATIVE A [facility] LEUKOCYTE ESTERASE ,UR MODERATE NEGATIVE A [facility] BILIRUBIN,UR NEGATIVE NEGATIVE [facility] UROBILINOGEN,UR 0.2-1.0 EU MG/DL NEG-0-1.0 [facility] RBC,UR 1-2 PER HPF 0-2 [facility] WBC,UR 5-9 PER HPF <5 A [facility] URINE EPITH RARE PER/LPF FEW-MOD [facility] BACTERIA,UR FEW PER HPF NONE [facility] ID Date Data Source [id number] 04/02/2020 08:10:00 AM EDT [facility] Run: 04/02/20 0811 INTERFACED REPORT Name: Madhavi Montalvo Age/Sex: 39/F Location: [facility] Acct: [id number] Unit: [id number] Status: ADM IN Room/Bed: 311-A Re03/28/20 Disch: Glenn Dr: Samina Dixon [employer] Specimen #: [id number] Ordered : 03/30/20 Collected : 03/30/20 By: [...] 0811 INTERFACED REPORT ------- ----- Specimen #: [id number] (Continued) Ordered : 03/30/20 Collected : 03/30/20 [...] Run: 04/02/20 0811 INTERFACED REPORT Specimen #: [id number] (Continued) Ordered : 03/30/20 Collected : 03/30/20 [...] rce(s) Supporting Document(s) ID Date Data Source [id number] 03/29/2020 01:13:00 PM EDT [facility] [address] [address] HEALTH INFORMATION MANAGEMENT PCM-Progress Note : [id number] Signed Patient: Madhavi Montalvo Acct:[id number] it: [id number] : 1980 Loc: [facility] Room/Bed: 412-A Age/Sex: 39 / F ADM Date: 03/28/20 cc: Subjective Date of Service: 03/29/20 Subjective: This patient is a 39 yo F with a past medical history of Asthma, Chronic headache, Lupus, IBS, Fibromyalgia, and anoxic brain injury that was sent to the ER this morning from her [place] ([place]) for complaints of a headache. She [...] ml @ 400 mls/hr IV ONCE ONE Rx#:[id number] Sodium Chloride 0.9% Infusion 1 1000 / 1000 ,000 ml @ 999 mls/hr IV ONCE ONE Rx#:[id number] Oral 120 / 120 120 / 120 [...] HCl (Buspar Tablet) 10 mg PO BID REPLACED BY [facility] Last Admin: 03/29/20 08:22 Dose: 10 mg Documented by: Duloxetine HCl (Cymbalta Capsule) 60 mg PO DAILY REPLACED BY [facility] Last Admin: 03/29/20 08:22 Dose: 60 mg Documented by: Enoxaparin Sodium (Lovenox Inj) 40 mg SUBCUTAN Q24H REPLACED BY [facility] Last Admin: 03/28/20 18:05 Dose: 40 mg Documented by: Escitalopram Oxalate (Lexapro Tablet) 5 mg PO DAILY REPLACED BY [facility] Last Admin: 03/29/20 08:23 Dose: 5 mg Documented by: Folic Acid (Folic Acid Tablet) 1 mg PO DAILY REPLACED BY [facility] Last Admin: 03/29/20 08:24 Dose: 1 mg Documented by: Gabapentin (Neurontin Capsule) 200 mg PO TID REPLACED BY [facility] Last Admin: 03/29/20 08:22 Dose: 200 mg Documented by: Guaifenesin (Robitussin Plain Syrup Ud Cup) 200 mg PO Q4HPRN PRN PRN Reason: COUGH Hydroxychloroquine Sulfate (Plaquenil Tablet) 200 mg PO DAILY REPLACED BY [facility] Last Admin: 03/29/20 09:19 Dose: 200 mg Documented by: Levetiracetam (Keppra Tablet) 500 mg PO BID REPLACED BY [facility] Last Admin: 03/29/20 08:24 Dose: 500 mg Documented by: Loperamide HCl (Imodium Capsule) 2 mg PO Q6HPRN PRN PRN Reason: DIARRHEA Magnesium Hydroxide (Milk Of Magnesia Susp Ud-Cup) 30 ml PO DAILYPRN PRN PRN Reason: CONSTIPATION Metoprolol Tartrate (Lopressor Tablet) 50 mg PO BID REPLACED BY [facility] Miscellaneous Medication (Methotrexate Sodium [Trexall]) 7.5 mg PO Q7DAYS REPLACED BY [facility] Ondansetron HCl (Zofran Injection) 4 mg IV PUSH Q4HPRN PRN PRN Reason: NAUSEA / VOMITING Pantoprazole Sodium (Protonix Tablet) 40 mg PO DAILY@0600- EMPTYSTOM REPLACED BY [facility] Last Admin: 03/29/20 05:09 Dose: 40 mg Documented by: Senna (Senokot (Senna) 8.6 Mg Tablet) 2 tab PO BID REPLACED BY [facility] Last Admin: 03/29/20 08:25 Dose: Not Given Documented by: Sodium Chloride (Saline Lock Flush Protocol) 1 each IV FLUSH QSHIFT REPLACED BY [facility] Last Admin: 03/29/20 08:29 Dose: 1 each Documented by: Sumatriptan Succinate (Imitrex Tablet) 50 mg PO Q2HPRN PRN PRN Reason: Migraine Headache Last Admin: 03/29/20 08:23 Dose: 50 mg Documented by: Thiamine HCl (Vitamin B-1 Tablet) 100 mg PO DAILY REPLACED BY [facility] Last Admin: 03/29/20 08:25 Dose: 100 mg Documented by: Throat Lozenges (Chloraseptic Throat [place]) 1 applic MUC MEMB Q2HPRN PRN PRN Reason: SORE THROAT Tiotropium [place] (Spiriva Inhaler) 1 inhalation INHALATION RT-DAILY REPLACED BY [facility] Last Admin: 03/29/20 08:20 Dose: 1 inhalation Documented by: Trazodone HCl (Desyrel Tablet) 50 mg PO DAILY REPLACED BY [facility] Last Admin: 03/29/20 08:29 Dose: Not Given Documented by: Result Diagrams: 03/29/20 06:56 03/29/20 06:56 Lab Results: Microbiology (Last 12 Hour Results- Final) 03/28/20 09:47 Urine,Clean Catch [place] Count - Final 03/28/20 09:47 Urine,Clean Catch Urine Culture - Final Laboratory (Last 12 hours Results) 03/29/20 03/29/20 06:56 06:56 WBC 5.34 RBC 3.97 Hgb 11.7 D Hct 34.4 L MCV 86.6 MCH 29.5 MCHC 34.0 RDW 13.2 Plt Count 193 D MPV 10.6 Gran % (Auto) 36.7 L Lymph % (Auto) 51.7 H [place] % (Auto) 7.5 Eos % (Auto) 2.4 Baso % (Auto) 1.5 Nucleat RBC Rel Count Not Reportable Gran # 1.96 Lymph # (Auto) 2.8 Waldo # (Auto) 0.40 Eos # (Auto) 0.13 [...] need to be negative before returning to [facility] -not back yet 3. Lupus [...] Hospitalist charges for this visit?: Yes Inpatient 94482 Subsequent INpt-Complex (less than/equal 35 minutes): Yes Signed By:Sandee Grullon MD <<Signature on File>> Signed Date/Time: 03/29/20 1357 Co-Signer: Isidro Sun MD Co-Signed Date/Time: 03/29/20 1424 Initializing User: Sandee Grullon MD 0 03/29/20 1313 1313 1313 Name Value Range Interpretation Code Description Data Elizabeth rce(s) Supporting Document(s) ID Date Data Source [id number] 03/29/2020 07:28:00 AM EDT [facility] Name Value Range Interpretation Code Description Data Elizabeth rce(s) Supporting Document(s) SODIUM 143 MEQ/L 135-145 N [facility] POTASSIUM 4.1 MEQ/L 3.5-5.3 N [facility] CHLORIDE 111 MEQ/L 94-110 H [facility] CARBON DIOXIDE 26 MEQ/L 22-33 N [facility] ANION GAP 10 5-16 N [facility] BLOOD UREA NITRO 9 MG/DL 7-25 N [facility] CREATININE 0.7 MG/DL 0.6-1.4 N [facility] GFR > 90.0 ML/MIN [facility] Stage G1 - Normal or high kidney functi on The GFR is an estimate of the Glomerular Filtration Rate. It is an aid to assess a patient's renal function. It is not a conclusive diagnosis of kidney disease. GFR normal is >=90 The MDRD GFR calculation is considered valid between the ages of 18 and 75 years only. BUN/CREAT RATIO 12 8-36 N [facility] GLUCOSE 86 MG/DL 70-100 N [facility] CA 8.5 MG/DL 8.7-10.5 L [facility] ID Date Data Source [id number] 03/29/2020 07:23:00 AM EDT [facility] Name Value Range Interpretation Code Description Data Elizabeth rce(s) Supporting Document(s) WHITE BLOOD COUNT 5.34 10^3/uL 4.00-10.50 N [facility] RED BLOOD COUNT 3.97 10^6/uL 3.90-5.20 N [facility] HEMOGLOBIN 11.7 G/DL 11.5-15.6 [facility] HEMATOCRIT 34.4 % 35.0-46.0 L [facility] MCV 86.6 FL 80.0-100.0 N [facility] MCH 29.5 PG 27.0-34.0 N [facility] MCHC 34.0 G/DL 32-36 N [facility] RDW 13.2 % 11.5-14.5 N [facility] PLATELET COUNT 193 10^3/uL 130-400 [facility] MPV 10.6 FL 8.7-13.2 N [facility] GRAN % (AUTO) 36.7 % 42.0-75.0 L [facility] LYMPH % (AUTO) 51.7 % 20.0-51.0 H [facility] MONO % (AUTO) 7.5 % 2.0-15.0 N [facility] EOS % (AUTO) 2.4 % 0.0-11.0 N [facility] BASO % (AUTO) 1.5 % 0.0-2.0 N [facility] IG % (AUTO) 0.2 % 1.00-5.00 [facility] IG # (AUTO) 0.0 10^3/uL <0.5 [facility] GRAN # (AUTO) 1.96 10^3/uL 1.50-6.50 N [facility] LYMPH # (AUTO) 2.8 k/uL 1.0-5.0 N [facility] MONO # (AUTO) 0.40 k/uL 0.20-1.50 N [facility] EOS # (AUTO) 0.13 10^3/uL 0.00-1.10 N [facility] BASO # (AUTO) 0.08 10^3/uL 0.00-0.20 N [facility] ID Date Data Source [id number] 03/28/2020 02:36:00 PM EDT [facility] [address] [address] HEALTH INFORMATION MANAGEMENT History and Physical Report : [id number] Signed Patient: Madhavi Montalvo Acct:[id number] it: [id number] : 1980 Loc: [employer] Room/Bed: 412-A Age/Sex: 39 / F ADM Date: 03/28/20 cc: History Physical Date of Service (Initial Exam): 03/28/20 Chief Complaint: Headache with shortness of breath History of Present Illness: This patient is a 39 yo F with a past medical history of Asthma, Chronicheadache, Lupus, IBS, Fibromyalgia, and anoxic brain injury that was sent to the ER this morning from her [place] ([place]) for complaints of a headache. She [...] PO BID PRN 03/28/20 bisacodyl 10 mg LA DAILY PRN 03/28/20 budesonide-formoterol [Symbicort] 2 puff [...] tartrate [Lopressor] 50 mg PO Q12H 03/28/20 xenxfpzvafvd-czw-syrm-FA-vit K 1 tab PO DAILY 03/28/20 [Multi- [...] of use Occupation: disabled Lives with: Reports [facility]pc PMH/PSH PMH/PSH Surgical History Gastric bypass status [...] MPV Gran % (Auto) Lymph % (Auto) Waldo % (Auto) Eos % (Auto) Baso % (Auto) Nucleat RBC Rel Count Gran # Lymph # (Auto) Waldo # (Auto) Eos # (Auto) Baso # [...] Appearance CLOUDY H Urine pH 6.0 Specific [place] (Man) 1.006 Urine Protein NEGATIVE Urine Glucose [...] % (Auto) 50.4 Lymph % (Auto) 38.6 Waldo % (Auto) 7.8 Eos % (Auto) 1.9 Baso % (Auto) 1.0 Nucleat RBC Rel Count Not Reportable Gran # 3.40 Lymph # (Auto) 2.6 Waldo # (Auto) 0.53 Eos # (Auto) 0.13 [...] Urine Color Urine Appearance Urine pH Specific [place] (Man) Urine Protein Urine Glucose (UA) Urine [...] need to be negative before returning to [facility] 3. Lupus Continue home meds [...] Health Care proxy Phone Number:: Sadie Tirado [phone] DVT Prophylaxis Pharmacologic: Lovenox Problems (1) Head [...] was more than 50% counseling:: Yes Inpatient 23465 Initial INpt-Mod (less than/equal 50 minutes): Yes Signed By:Tan Pulido MD <<Signature on File>> Signed Date/Time: 03/28/201852 Co-Signer: Isidro Sun MD Co-Signed Date/Time: 03/28/201852 Initializing User: Tan Pulido MD 143 1436 143 Name Value Range Interpretation Code Description Data Elizabeth rce(s) Supporting Document(s) ID Date Data Source [id number] 03/28/2020 10:32:00 AM EDT [address] [address] Patient Name: Madhavi Montalvo Exam Date: 03/28/20 [...] acute intracranial disease. Professional interpretation performed at [facility] . End of diagnostic report: [id number] Signed: Savanah Smith MD 03/28/20 1039 Interpreted by: Savanah SmitheTranscribed by: Savanah Smith Name Value Range Interpretation Code Description Data Elizabeth rce(s) Supporting Document(s) ID Date Data Source [id number] 03/28/2020 10:08:00 [place] [address] Patient Name: Madhavi Montalvo Exam Date: 03/28/20 : 1980 Ordering Doctor: Julito Cameron ROUTE DELIVERY CLERK Attending Doctor: Mirtha Henry MD CC: AP CHEST INDICATION: Cough and shortness of breath. COMPARISON: None TECHNIQUE: A single AP film of the chest was obtained. FINDINGS: No significant soft tissue or bony abnormalities are noted. The cardiac and mediastinal contours appear normal. The lungs are clear without evidence of pneumonia or failure. IMPRESSION: Negative chest. Professional interpretation performed at [facility] Id[facility] . End of diagnostic report: [id number] Signed: Red Hamilton MD 03/28/20 1014 Interpreted by: Red HamiltonTranscribed by: Red Hamilton Name Value Range Interpretation Code Description Data Elizabeth rce(s) Supporting Document(s) ID Date Data Source [id number] 04/02/2020 11:12:00 AM [facility] Run: 04/02/20 1112 INTERFACED REPORT Name: MontalvoMadhavi farris Age/Sex: 39/F Location: [facility] Acct: [id number] Unit: [id number] Status: ADM IN Room/Bed: 311-A Re03/28/20 Disch: Glenn Dr: Samina GONZALEZP Specimen #: [id number] Ordered : 03/28/20 Collected : 03/28/20 By: [...] rce(s) Supporting Document(s) ID Date Data Source [id number] 03/28/2020 10:04:00 AM EDT [facility] Run: 04/02/20 1112 INTERFACED REPORT Name: Madhavi Montalvo Age/Sex: 39/F Location: [facility] Acct: [id number] Unit: [id number] Status: ADM IN Room/Bed: 311-A Re03/28/20 Disch: Att Dr: Samina Dixon [employer] Specimen #: [id number] Ordered : 03/28/20 Collected : 03/28/20 By: [...] WHITE BLOOD COUNT 6.76 10^3/uL 4.00-10.50 N [facility] RED BLOOD COUNT 4.54 10^6/uL 3.90-5.20 N [facility] HEMOGLOBIN 13.4 G/DL 11.5-15.6 N [facility] HEMATOCRIT 40.0 % 35.0-46.0 N [facility] MCV 88.1 FL 80.0-100.0 N [facility] MCH 29.5 PG 27.0-34.0 N [facility] MCHC 33.5 G/DL 32-36 N [facility] RDW 13.2 % 11.5-14.5 N [facility] PLATELET COUNT 231 10^3/uL 130-400 N [facility] MPV 10.9 FL 8.7-13.2 N [facility] GRAN % (AUTO) 50.4 % 42.0-75.0 N [facility] LYMPH % (AUTO) 38.6 % 20.0-51.0 N [facility] MONO % (AUTO) 7.8 % 2.0-15.0 N [facility] EOS % (AUTO) 1.9 % 0.0-11.0 N [facility] BASO % (AUTO) 1.0 % 0.0-2.0 N [facility] IG % (AUTO) 0.3 % 1.00-5.00 [facility] IG # (AUTO) 0.0 10^3/uL <0.5 [facility] GRAN # (AUTO) 3.40 10^3/uL 1.50-6.50 N [facility] LYMPH # (AUTO) 2.6 k/uL 1.0-5.0 N [facility] MONO # (AUTO) 0.53 k/uL 0.20-1.50 N [facility] EOS # (AUTO) 0.13 10^3/uL 0.00-1.10 N [facility] BASO # (AUTO) 0.07 10^3/uL 0.00-0.20 N [facility] ID Date Data Source [id number] 03/28/2020 10:13:00 AM EDT [facility] Run: 04/02/20 1112 INTERFACED REPORT Name: aMdhavi Montalvo Age/Sex: 39/F Location: [facility] Acct: [id number] Unit: [id number] Status: ADM IN Room/Bed: 311-A Re03/28/20 Disch: Att Dr: Samina Dixon [employer] Specimen #: [id number] Ordered : 03/28/20 Collected : 03/28/20 By: [...] Document(s) PROTHROMBIN TIME 10.7 SEC 8.9-13.3 N [facility] INR 1.0 0.0-3.6 N [facility] Therapeutic Values of INR are generally between 2.0-3.0 except for Prosthetic Valves (High Risk 2.5-3.5) The use of INR is restricted to patient on stable oral anticoagulant therapy. ID Date Data Source [id number] 03/28/2020 10:23:00 AM [facility] Run: 04/02/20 1112 INTERFACED REPORT Name: Madhavi Montalvo Age/Sex: 39/F Location: [facility] Acct: [id number] Unit: [id number] Status: ADM IN Room/Bed: 311-A Re03/28/20 Disch: Glenn Dr: Samina Dixon [employer] Specimen #: [id number] Ordered : 03/28/20 Collected : 03/28/20 By: [...] Supporting Document(s) SODIUM 141 MEQ/L 135-145 N [facility] POTASSIUM 4.7 MEQ/L 3.5-5.3 N [facility] CHLORIDE 108 MEQ/L 94-110 N [facility] CARBON DIOXIDE 27 MEQ/L 22-33 N [facility] ANION GAP 11 5-16 N [facility] BLOOD UREA NITRO 6 MG/DL 7-25 L [facility] CREATININE 0.8 MG/DL 0.6-1.4 N [facility] GFR 79.0 ML/MIN [facility] Stage G2 - Mildly decreased kidney func tion The GFR is an estimate of the Glomerular Filtration Rate. It is an aid to assess a patient's renal function. It is not a conclusive diagnosis of kidney disease. GFR normal is >=90 The MDRD GFR calculation is considered valid between the ages of 18 and 75 years only. BUN/CREAT RATIO 7 8-36 L [facility] GLUCOSE 85 MG/DL 70-100 N [facility] CA 9.2 MG/DL 8.7-10.5 N [facility] BILIRUBIN,TOTAL 0.4 MG/DL 0.1-1.3 N [facility] AST 35 U/L 5-40 N [facility] ALT 30 U/L 5-48 N [facility] ALKALINE PHOSPHATASE 67 U/L 40-140 N [facility] TOTAL PROTEIN 5.9 G/DL 5.9-8.3 N [facility] ALBUMIN 4.1 G/DL 3.0-5.1 N [facility] GLOBULIN 1.8 G/DL 1.5-3.5 [facility] ALB/GLOB RATIO 2.3 G/DL 1.0-3.0 N [facility] ID Date Data Source [id number] 03/28/2020 10:13:00 AM EDT [facility] Run: 04/02/20 1112 INTERFACED REPORT Name: Madhavi Montalvo Age/Sex: 39/F Location: [facility] Acct: [id number] Unit: [id number] Status: ADM IN Room/Bed: 311-A Re03/28/20 Disch: Glenn Dr: Samina GONZALEZP Specimen #: [id number] Ordered : 03/28/20 Collected : 03/28/20 By: [...] Supporting Document(s) PTT 32.3 SEC 22.2-34.9 N [facility] ID Date Data Source [id number] 03/28/2020 10:23:00 AM EDT [facility] Run: 04/02/20 1112 INTERFACED REPORT Name: Madhavi Montalvo Age/Sex: 39/F Location: [facility] Acct: [id number] Unit: [id number] Status: ADM IN Room/Bed: 311-A Re03/28/20 Disch: Glenn Dr: Samina Dixon [employer] Specimen #: [id number] Ordered : 03/28/20 Collected : 03/28/20 By: [...] TROPONIN I < 0.006 NG/ML 0.000-0.040 N [facility] 0.000 - 0.040 Normal. 0.041 - 0.779 S uspect myocardial injury. Repeat testing recommended. >= 0.780 Meets WHO criteria cutoff for AMI. ID Date Data Source [id number] 03/28/2020 09:52:00 AM EDT [address] [address] HEALTH INFORMATION MANAGEMENT ED/ Physician Report : [id number] Signed Patient: Madhavi Montalvo Acct:[id number] Unit: [id number] : 1980 Arrival Date: 03/28/20 Age/Sex: 39 [...] PO BID PRN 03/28/20 bisacodyl 10 mg LA DAILY PRN 03/28/20 budesonide-formoterol [Symbicort] 2 puff [...] tartrate [Lopressor] 50 mg PO Q12H 03/28/20 ltajpnjlkzgj-kmn-nluj-FA-vit K 1 tab PO DAILY 03/28/20 [Multi-Day [...] of use Occupation: disabled Lives with: Reports Fpc PMH/PSH PMH/PSH Surgical History Gastric bypass status [...] Skin exam: Dry, Intact and Warm; negative Tulsita ( pale) Course Reevaluation(s) Reevaluation #1: patient [...] breath and chills. Patient is currently a [facility] resident. COVID precautions were initiated a [...] 0952 Signed by: Julito Cameron NP 03/28/20 1538 Mirtha Henry MD 03/28/20 1728 Name Value Range Interpretation Code Description Data Elizabeth rce(s) Supporting Document(s) ID Date Data Source [id number] 03/28/2020 09:47:00 AM EDT [facility] Name Value Range Interpretation Code Description Data Elizabeth rce(s) Supporting Document(s) 2019-nCoV N XXX Ql MARIAN N2 [facility] [place] This lab was ordered by [facility] and reported by MARICEL. ID Date Data Source [id number] 03/30/2020 01:20:00 PM EDT [facility] Name Value Range Interpretation Code Description Data Elizabeth rce(s) Supporting Document(s) COVID 19 See Notes [facility] Virology Laboratory Phone: Testing performed at [facility]# [id number] Specimen Id: [id number] Specimen Type: Nasopharyngeal Swab 2019 nCoV Real-Time RT-PCR: Not Detected 03/30/2020 NOTE: The [facility] is approved by the Centers for Disease Control and Prevention (CDC) to test for 2019 novel coronavirus (2019_nCoV). The real-time RT-PCR assay for 2019_nCoV was developed by the CDC for the purpose of diagnostic testing to allow for rapid response during a declared public health emergency and has Emergency Use Authorization (EUA) from the FDA. Negative 2019_nCoV RT-PCR results do not preclude 2019_nCoV infection and should not be used as the sole basis for patient management decisions. Additional information is available on the following FDA websites for health care providers and patients. https://www.fda.gov/media/103364/download https://www.fda.gov/media/416949/download This reportable disease test result has been posted on [employer], the [facility] Electronic Clinical Laboratory Reporting System, in accordance with [facility] Public Health Law, and is available to local and/or state health officials [place] [address] CLIA# [id number] [facility] [address] [place] [address] CLIA# [id number] [id number] [place] [address] CLIA# [id number] ID Date Data Source [id number] 03/28/2020 11:12:00 AM EDT [facility] Run: 03/29/20 0822 INTERFACED REPORT Name: Madhavi Montalvo Age/Sex: 39/F Location: [employer] Acct: [id number] Unit: [id number] Status: ADM IN Room/Bed: 412-A Re03/28/20 Disch: Att Dr: Sandee Grullon MD Specimen #: [id number] Ordered : 03/28/20 Collected : 03/28/20 By: LAURO Received: 03/28/20 By: BERONICA Source: URINE CC Specimen Description: Procedure Result - COLONY COUNT Final COLONY COUNT GREATER THAN 100,000 CFU/ML URINE CULTURE Final PRESENCE OF 3 OR MORE ORGANISMS-SPECIMEN MAY BE CONTAMINATED SUGGEST REPEAT END OF REPORT Name Value Range Interpretation Code Description Data Elizabeth rce(s) Supporting Document(s) COLOR,UR AARON YELLOW A [facility] APPEARANCE,UR CLOUDY CLEAR A [facility] PH,UR 6.0 5.0-8.0 [facility] SPECIFIC GRAVITY,UR 1.006 1.002-1.035 N [facility] PROTEIN,UR NEGATIVE MG/DL NEGATIVE [facility] GLUCOSE, UR NEGATIVE MG/DL NEGATIVE [facility] KETONES,UR NEGATIVE MG/DL NEGATIVE [facility] OCCULT BLOOD,UR NEGATIVE NEGATIVE [facility] NITRATE,UR NEGATIVE NEGATIVE [facility] LEUKOCYTE ESTERASE ,UR SMALL NEGATIVE A [facility] BILIRUBIN,UR NEGATIVE NEGATIVE [facility] UROBILINOGEN,UR 0.2-1.0 EU MG/DL NEG-0-1.0 [facility] RBC,UR 1-2 PER HPF 0-2 [facility] WBC,UR 25-49 PER HPF <5 A [facility] URINE EPITH MODERATE PER/LPF FEW-MOD [facility] BACTERIA,UR MODERATE PER HPF NONE A [facility] MUCUS,UR RARE PER HPF NONE SEEN [facility] ID Date Data Source [id number] 03/29/2020 08:22:00 AM EDT [facility] Run: 03/29/20 0822 INTERFACED REPORT Name: Madhavi Montalvo Age/Sex: 39/F Location: [employer] [facility] Acct: [id number] Unit: [id number] Status: ADM IN Room/Bed: 412-A Re03/28/20 Disch: Att Dr: Sandee Grullon MD Specimen #: [id number] Ordered : 05/ Collected : 03/28/20 By: LAURO Received: 03/28/20 By: BERONICA Source: URINE CC Specimen Description: Procedure Result - COLONY COUNT Final COLONY COUNT GREATER THAN 100,000 CFU/ML URINE CULTURE Final PRESENCE OF 3 OR MORE ORGANISMS-SPECIMEN MAY BE CONTAMINATED SUGGEST REPEAT END OF REPORT Name Value Range Interpretation Code Description Data Elizabeth rce(s) Supporting Document(s) ID Date Data Source [id number] 03/28/2020 10:08:00 AM EDT [facility] Name Value Range Interpretation Code Description Data Elizabeth rce(s) Supporting Document(s) Lactic Acid,P 0.8 mmol/L 0.5-2.0 N [facility] ID Date Data Source [id number] 03/28/2020 09:37:27 AM EDT [facility] Name Value Range Interpretation Code Description Data Elizabeth rce(s) Supporting Document(s) EKG/ECG IN ED [facility] [file] [id number]WNHVQHZQUVSVXMPYXQCNZSaX/D/KPsI6HdrHh9QeIlnCkJc ytIsiI5+8yRtHHsBPHlrndiuurxDQv+Eh/4SDTPM/4 WL/fc5bB9e8u4i6Yha75+04/m7tV5rvc75ryyGSh56AFLDOHFGTGr/8Axd//AKkb/uQr90hvbt9lMxTc LnTfchjKNkgTH87PjenrMaCGK4yQtBTN9FxTRwL2763CiKrlE82B+Lb+9eOJ8StVpJL9krk3rPabnZHp iCxZUSESJU1vdEXX2g/8IjY/2p9u+6ypDu4pjohXo+ Y3k+in55dh4x4ufEnr1OxMFODUJGRAPXHWZmcaQiBmhT4k9k1xeusyFqKxWcYluVWdP9Y6Z7+Hep+Jose Alberto [file] t2YOsL67b58wy32uSGBbYI+V+2sTU00ty705UYO8e0 Labeling Associate/Irjw3Vwy0QJ8WWTAnx4GmJHTbZ/JDJgjeU0gPmgk92xvH1ZJ+h74tplNNp51+3DM2aF5HFCx4ruMU [file] ooqDEKKKKACiiigAooooAKKKKACiiigAooooAKKKKACiiigAooooAKKKKACiiigAooooAKKKKACiiigA ooooAKKKKACiiigDm/E/37b/AIF/PiExywTsjwox5aHdenkHsbea29/6nRfrN/8VAKKj1Hi/8NnjtLRR DY2kNmFRIz8O2Oq2e0Vr+vYf+bGia1KP8orxfg/gQU UUVRuFeTfG/wD1Oi/Wb/2WkfbciT2/8fLReUWRdSQAjyxiY8I0Ri2QQz1V/r2H/rLi7ikvaY8Au8a1JJ NVABhmLw0rc/1Oi/Wb/wBkooqZbGNf+Tku6wabwR4bLFumkY7P4Za1b0Ua+vYf+nRfo8NS9bnexf/gQU UUVRuFeTfG/wD1Oi/Wb/5MtctmrQ2/4bPHaWiiszyw pKKKAPUPgp/yHdR/69h/6ZU6vhopATh8zF+XDDMBCM4M1T8x/mCD1V6Zt/ZKKKmWxjX/AIbPHaWiiszz ApKKKBHqHwU/5Duo/hJQtG3L5EV6YPWCzoq52L9CVtzultlqK0d+N/8AqdF+s3/slFFTLYxr/wANnjtF AJTcynWCQIW9f8DO+Q7qP/XsP/MyVmzUOqP7SSe/wI GBINl3Hodz7/yEn/65H+YooqXsY1/4cjrKKKKzPKCiiigAooooAKKKKACiiigAooooAKKKKACiiigAoo ooAKKKKACiiigAooooAKKKKACiiigAooooAKKKKACiiigD/7yMPyKkQBM2vuUcnD4WTR7ck0HoRGrwAl SwAZ7btt2LGBljUZseMG2GNtfBiV4tZaM5J6CmkjD8 PXM7B8DdyZWnsb5QqFG6OEApD58jLW6ICS6gdFjjBAzkZf6PQlE9spEruC3FxMuupTHYsmVBqTmV/3Bj B9LPBeqS2DCMSzyvpRUGjfBHjTFoc8+DHiQ7V0V66948BsyvISxuOiLGVcbGxqcNsBrlKLIwrlmdbTfR soWyzRTRVpoEkYhyudSPXWx2wjnzrF0HLOz/gGOyzP e+H6RPxJTCcxMLyUyFjYzgSVWEHV9/ebZGFlgieDDiiICx9LYMqlcsVD4Tst4iWK6HoOtca+IR2XmnvE uxcNgdQA6ewIE6P2i3J/Ln4VVU248RDN0BKZilmzAlbGHbGC1BSySmHC9bwy6MVEmkQLJdKppAAdc0P3 Iky0C8Z6MwON6/JF3PcCKwAKNGnvTwRR7HHvY5PH9D QLHBRGHPBaOjFCUXUPBqLDeKbfMoKOSTMDTiAOHASIY0DZ1UlpRlaD2tVK1/ML5OlSYnEJBRaeAbMU6I EuI5WI5KKYCFYCRBBfXlSGTDURDhQFkTdzNwTNWDJFVjYLDUXHY4XP7XllYsuLvtvyNmdWYtIUdrRVXn NSFmYvYtHvi8LkjaC19yTLLgnEOnNEpnCMOxHGVdBe OjXlu7BrdeDs5UQxGkNP2akj3TALlzTCUbFneSBbreJvCeYFQGNnHeMH5inu6GRxImHKTwCubOLvjpBu IcIIYLDyWrDA3kyy4MTnUsSGAyVwzZWkh6S7M9oIIyBDOtZp2FwRevQVBiE4xzLQWqMRPmHEWhLr9slV ApPEKkBh8VzfTeJKA1RAXhUg3IFHa4VXZ6XRM7YHA0 YhU1Pbi8OIjUK2GDVIQ3LEqkLBT6CWF+CLKVDUAfXFSzGbOdPWK4LKK8F7LNXzGGNCR0SJO0AbIdWy7p Q5NtcOQgcu7OfSX4PLYoW81yNK0NBT7cxFsfGVy+Zs9Qq3LhTCBoWKc2jSXfJUQ//beKfDWJU1lfbVOg qOHoXNWWzM5TNR3ZEziZRQkYZ2vdzTCpmNgCSLhbRK lHNlXQBHVIjrNWdSYLTGHVAjCbOR7AlfACEZBprlTPRVo2QZMDHsQiAQY1fdOfuX6PSG3pd5PlAHg2ue SdEOvkZQBxGTruJJHwRDWeJLJjCFS6DWV7ZCNZCaGyLKXhLIZhHXacZMAmMXLxzu0IHQGvOTJmZRTuQH HlXAFtRCVtGYmaSGYmQQOkGXqlEPHaLMTwGM6BMtQn WVCxOLJ5ECYcTPNoNYLxux9BEOFcRNJwDBhtLRWjRSQkVQOrGRxySWGgNGKdYLNcVMPeQHQiCJ8WRaQz VTJzIEVwRVYrTHVkLRHbtm8JUQItNKCrLIFlZqSeNWRiZTHuBZrzWVJvIKKvKMO7SZWrZLQwWJ7TFySk ZUWyUAGlZXSnReP4AoFfGh3YXIYiSPQbKHIlUiZ9EL WeESFwSUkdEHUyTPTpRNQrTSJ3HKS1VRYGHtDcTGFmMLBnBOMbSbL3VxVxRv4VQNCkPOIkNGFfWEN1ZS UkPMKpVDlwDHSpKEZnETD0QUE4UYW8NLXJXgZtUYBpQBTmWMnrZpY1HbIkXk1FOIGvQQRvAQAlBNO3SQ PaMLRfJNynIKMnSoOvEJW0LSMfTYRpDK4RWuBlBNFj MKKnShLyYUCtVFQzhp4KTPVoKRDsMgU5YPNmRVExUGNtEOlhYQErDqIgLcS8CCSvFODsIR6ORhWzGKkr YMZNTct5L2NewkVbDfWqMa8ktPJhWXHsHi2VoiWcLDK2DUBmRn4FJLl7VUT4ORI0GZB5LmV3Rat7HHnL K5MCZEM6EYliWAR4TTZ+OXFLKLKuAFCtVnBwNWV5HB B4Y9QLPwNOEMD3VHV8KhNrPu0mOk6HExY0ICZ6uDCrBx9HHqDeImXxDIprFJYJIu7AxYIdYb0DKZCcXK u7upZniTGjAEy4TZ6WmQzbVFVjX4Uak5NsKCKnHZRfWF2hafOhHXOqWQBnCHAgPRSNYXUbFDGlZvTlTC P2ZRS6O8VKTkOJLWC2UDU3OpOvOkm0UTL2QOSDHUr5 AxInMsYuJWLAMjK7GBtCLQUVDXO7MX6fKH5VhgN5FKPvNgZkIl6NIhInB2ZnGEVwQvYuYl5+DQpzdGFy [id number]= ID Date Data Source [id number] 03/26/2020 07:52:00 AM EDT [facility] Name Value Range Interpretation Code Description Data Elizabeth rce(s) Supporting Document(s) SODIUM 143 MEQ/L 135-145 N [facility] POTASSIUM 4.4 MEQ/L 3.5-5.3 N [facility] CHLORIDE 108 MEQ/L 94-110 [facility] DIOXIDE 28 MEQ/L 22-33 N [facility] ANION GAP 11 5-16 N [facility] BLOOD UREA NITRO 6 MG/DL 7-25 L [facility] CREATININE 0.6 MG/DL 0.6-1.4 N [facility] GFR > 90.0 ML/MIN [facility] Stage G1 - Normal or high kidney functi on The GFR is an estimate of the Glomerular Filtration Rate. It is an aid to assess a patient's renal function. It is not a conclusive diagnosis of kidney disease. GFR normal is >=90 The MDRD GFR calculation is considered valid between the ages of 18 and 75 years only. BUN/CREAT RATIO 10 8-36 N [facility] GLUCOSE 72 MG/DL 70-100 N [facility] CA 9.1 MG/DL 8.7-10.5 N [facility] ID Date Data Source [id number] 02/29/2020 11:07:26 AM EDT [employer] [facility] [employer] [facility] HISTORY: 2 view chest for shortness of b reathComparison studies: NoneFINDINGS: There is normal size and configuration of thecardiomediastinal silhouette and pulmonary vascular shadows. The lungsare clear.IMPRESSION: No intrathoracic abnormality.THIS IS AN ELECTRONICALLY SIGNED REPORT IN [id number] BY:Mathieu Patel M.D. 02/29/2020 11:04The results were provided by [facility], to the facility. Name Value Range Interpretation Code Description Data Elizabeth rce(s) Supporting Document(s) ID Date Data Source [id number] 02/25/2020 06:03:11 PM EDT [facility] Exam: Abdominal radiographsHISTORY: pain , nauseaCOMPARISON: 01/16/2020TECHNIQUE: Supine and upright images of the abdomen and pelvis.FINDINGS:The bowel gas pattern is non-obstructive.There is no evidence of intraabdominal free air.There is a small amount of fecal material.The lung bases are unremarkable.The osseous structures and soft tissues are unremarkable.IMPRESSION: Non-obstructive bowel gas pattern. Small amount of fecalmaterial.THIS IS AN ELECTRONICALLY SIGNED REPORT IN [facility] BY:Karan Dinh M.D. 02/25/2020 18:00The results were provided by [facility], to the facility. Name Value Range Interpretation Code Description Data Elizabeth rce(s) Supporting Document(s) ID Date Data Source [id number] 01/16/2020 05:00:14 PM EST [facility] HISTORY: Abdominal painTechnique: 2 imag es of the abdomen are submitted.COMPARISON: NoneFINDINGS: Moderate gas throughout the large and small bowel in anonobstructive pattern. Gas and stool in the descending colon. Minimalstool in the rectum.No free intraperitoneal air.There are no diagnostic calcifications, organomegaly, nor masses seen.The bony structure is intact.IMPRESSION: Radiographic features suggest generalized ileus.THIS IS AN ELECTRONICALLY SIGNED REPORT IN [facility] BY:Augie Ny M.D. 01/16/2020 16:57The results were provided by [facility], to the facility. Name Value Range Interpretation Code Description Data Elizabeth rce(s) Supporting Document(s) ID Date Data Source [id number] 01/12/2020 07:41:00 AM EST [facility] Name Value Range Interpretation Code Description Data Elizabeth rce(s) Supporting Document(s) VITAMIN B12 [id number] PG/ML 211-2000 N [facility] ID Date Data Source [id number] 01/12/2020 07:41:00 AM EST [facility] Name Value Range Interpretation Code Description Data Elizabeth rce(s) Supporting Document(s) FOLATE > 24.00 NG/ML 3.40-24.00 H [facility] ID Date Data Source [id number] 12/07/2019 07:33:00 AM EST [facility] Name Value Range Interpretation Code Description Data Elizabeth rce(s) Supporting Document(s) WHITE BLOOD COUNT 5.31 10^3/uL 4.00-10.50 N [facility] RED BLOOD COUNT 4.05 10^6/uL 3.90-5.20 [facility] th HEMOGLOBIN 11.9 G/DL 11.5-15.6 [facility] HEMATOCRIT 35.6 % 35.0-46.0 [facility] MCV 87.9 FL 80.0-100.0 [facility] MCH 29.4 PG 27.0-34.0 [facility] MCHC 33.4 G/DL 32-36 [facility] RDW 14.2 % 11.5-14.5 [facility] PLATELET COUNT 207 10^3/uL 130-400 N [facility] MPV 11.5 FL 8.7-13.2 [facility] ID Date Data Source [id number] 12/07/2019 07:48:00 AM [facility] Name Value Range Interpretation Code Description Data Elizabeth rce(s) Supporting Document(s) SODIUM 143 MEQ/L 135-145 [facility] POTASSIUM 4.6 MEQ/L 3.5-5.3 [facility] CHLORIDE 109 MEQ/L 94-110 [facility] CARBON DIOXIDE 29 MEQ/L 22-33 [facility] ANION GAP 10 5-16 [facility] BLOOD UREA NITRO 15 MG/DL 7-25 [facility] CREATININE 0.6 MG/DL 0.6-1.4 [facility] GFR > 90.0 ML/MIN [facility] Stage G1 - Normal or high kidney functi on GFR normal is >=90 The MDRD GFR calculation is considered valid between the ages of 18 and 75 years only. The GFR is an estimate of the Glomerular Filtration Rate. It is considered accurate in evaluating patients with Chronic Kidney Disease,but may underestimate kidney function in Healthy Patients. BUN/CREAT RATIO 25 8-36 [facility] GLUCOSE 87 MG/DL 70-100 [facility] CA 9.5 MG/DL 8.7-10.5 [facility] ID Date Data Source [id number] 12/07/2019 07:48:00 AM [facility] Name Value Range Interpretation Code Description Data Elizabeth rce(s) Supporting Document(s) TSH 1.627 uIU/ML 0.470-4.200 [facility] Patients should not be tested for 70 ho urs post fluorescein dye angiography. A false depression of result may occur. ID Date Data Source [id number] 11/07/2019 09:00:00 AM EST [facility] Name Value Range Interpretation Code Description Data Elizabeth rce(s) Supporting Document(s) SODIUM 145 MEQ/L 135-145 N [facility] POTASSIUM 4.5 MEQ/L 3.5-5.3 [facility] CHLORIDE 108 MEQ/L 94-110 [facility] CARBON DIOXIDE 29 MEQ/L 22-33 [facility] ANION GAP 13 5-16 [facility] BLOOD UREA NITRO 17 MG/DL 7-25 N [facility] CREATININE 0.7 MG/DL 0.6-1.4 [facility] GFR > 90.0 ML/MIN [facility] Stage G1 - Normal or high kidney functi on GFR normal is >=90 The MDRD GFR calculation is considered valid between the ages of 18 and 75 years only. The GFR is an estimate of the Glomerular Filtration Rate. It is considered accurate in evaluating patients with Chronic Kidney Disease,but may underestimate kidney function in Healthy Patients. BUN/CREAT RATIO 24 8-36 [facility] GLUCOSE 81 MG/DL 70-100 [facility] CA 9.9 MG/DL 8.7-10.5 [facility] Procedure Social History Code Duration Value Status Description Data Source(s ) Smoking 01/02/2021 12:00:00 AM EST Unknown if ever smoked comp leted Unknown if ever smoked [facility] ([facility] Smoking 12/21/2020 12:00:00 AM EST Unknown if ever smoked comp leted Unknown if ever smoked [facility] ([facility]) Alcohol intake 12/03/2020 12:00:00 AM EST Current non-d katty of alcohol (finding) completed Current non-drinker of alcohol (finding) [facility] Tobacco use and exposure 12/03/2020 12:00:00 AM EST Never used co mpleted Never used [facility] Cigarette pack-years 12/03/2020 12:00:00 AM EST UNK completed [facility] Cigarettes smoked current (pack per day) - Reported 12/03/19 12:00:00 AM EST UNK completed [facility] Smoking 12/03/2020 12:00:00 AM EST Current every day smoker co mpleted Current every day smoker [facility] 05/09/2020 03:54:00 AM EDT Former Smoker completed Former Smoker [facility] 05/09/2020 03:54:00 AM EDT Ex-smoker (finding) complet ed Ex-smoker (finding) [facility] 04/16/2020 12:00:00 AM EDT Current Cigarette Smoker 1 Pack Daily completed Current Cigarette Smoker 1 Pack Daily [facility] ([facility]) 03/28/2020 05:53:00 PM EDT Former Smoker completed Former Smoker [facility] 03/28/2020 05:53:00 PM EDT Ex-smoker (finding) complet ed Ex-smoker (finding) [facility] 03/28/2020 05:53:00 PM EDT Former Smoker completed Former Smoker [facility] Smoking 03/28/2020 05:53:00 PM EDT Ex-smoker (finding) complet ed Ex-smoker (finding) [facility] 03/28/2020 05:53:00 PM EDT Former Smoker completed Former Smoker [facility] Smoking 03/28/2020 05:53:00 PM EDT Ex-smoker (finding) complet ed Ex-smoker (finding) [facility] 03/28/2020 02:41:29 PM EDT Former Smoker completed Former Smoker [facility] Smoking 03/28/2020 02:41:00 PM EDT Ex-smoker (finding) complet ed Ex-smoker (finding) [facility] Vital Signs ID Date Data Source UNK Name Value Range Interpretation Code Description Data Source(s) Body weight 198 [lb_av] 198 [lb_av] RUBY ([facility]) Systolic blood pressure 107 mm[Hg] 107 mm[Hg] A THENA ([facility]) Body mass index (BMI) [Ratio] 31 kg/m2 31 kg/ m2 RUBY ([facility]) Body height 67 [in_i] 67 [in_i] RUBY ([facility]) Diastolic blood pressure 74 mm[Hg] 74 mm[Hg] RUBY ([facility]) Body weight 3179.2 [oz_av] 3179.2 [oz_av] ATHEN A ([facility]) Systolic blood pressure 125 mm[Hg] 125 mm[Hg] A THENA ([facility]) Body mass index (BMI) [Ratio] 31.1 kg/m2 31.1 k g/m2 RUBY ([facility]) Body height 67 [in_i] 67 [in_i] RUBY ([facility]) Diastolic blood pressure 91 mm[Hg] 91 mm[Hg] RUBY ([facility]) Body weight 3334 [oz_av] 3334 [oz_av] RUBY ([facility]) Systolic blood pressure 141 mm[Hg] 141 mm[Hg] A THENA ([facility]) Body mass index (BMI) [Ratio] 32.6 kg/m2 32.6 k g/m2 RUBY ([facility]) Body height 67 [in_i] 67 [in_i] RUBY ([facility]) Diastolic blood pressure 83 mm[Hg] 83 mm[Hg] RUBY ([facility]) Body weight 3334 [oz_av] 3334 [oz_av] RUBY ([facility]) Systolic blood pressure 141 mm[Hg] 141 mm[Hg] A THENA ([facility]) Body mass index (BMI) [Ratio] 32.6 kg/m2 32.6 k g/m2 RUBY ([facility]) Body height 67 [in_i] 67 [in_i] RUBY ([facility]) Diastolic blood pressure 83 mm[Hg] 83 mm[Hg] RUBY ([facility]) Body weight 3235.2 [oz_av] 3235.2 [oz_av] ATHEN A ([facility]) Systolic blood pressure 114 mm[Hg] 114 mm[Hg] A THENA ([facility]) Body mass index (BMI) [Ratio] 31.7 kg/m2 31.7 k g/m2 RUBY ([facility]) Body height 67 [in_i] 67 [in_i] RUBY ([facility]) Diastolic blood pressure 77 mm[Hg] 77 mm[Hg] RUBY ([facility]) Body weight 3235.2 [oz_av] 3235.2 [oz_av] ATHEN A ([facility]) Systolic blood pressure 114 mm[Hg] 114 mm[Hg] A JIL ([facility]) Body mass index (BMI) [Ratio] 31.7 kg/m2 31.7 k g/m2 RUBY ([facility]) Body height 67 [in_i] 67 [in_i] RUBY ([facility]) Diastolic blood pressure 77 mm[Hg] 77 mm[Hg] RUBY ([facility]) Body weight 3235.2 [oz_av] 3235.2 [oz_av] ATHEN A ([facility]) Systolic blood pressure 114 mm[Hg] 114 mm[Hg] A THENA ([facility]) Body mass index (BMI) [Ratio] 31.7 kg/m2 31.7 k g/m2 RUBY ([facility]) Body height 67 [in_i] 67 [in_i] RUBY ([facility]) Diastolic blood pressure 77 mm[Hg] 77 mm[Hg] RUBY ([facility]) Diastolic blood pressure 77 mm[Hg] 77 mm[Hg] [facility] Systolic blood pressure 112 mm[Hg] 112 mm[Hg] O [facility] Oxygen saturation in Arterial blood by Pulse oximetry 98 % 98 % [facility] Respiratory rate 16 /min 16 /min [facility] Heart rate 68 /min 68 /min [facility] Body temperature 98.3 [degF] 98.3 [degF] [facility] Body weight 70.00 kg 70.00 kg [facility] Body mass index (BMI) [Ratio] 25.1 kg/m2 25.1 k g/m2 [facility] ([facility]) Body weight 70.478 kg 70.478 kg MED[facility] ([facility] Body weight 155.38 [lb_av] 155.38 [lb_av] DONNIE T ([facility]) Body height 66 [in_i] 66 [in_i] FRANCESCA ([facility]) 5'6" Diastolic blood pressure 74 mm[Hg] 74 mm[Hg] [facility] Systolic blood pressure 125 mm[Hg] 125 mm[Hg] [facility] Heart rate 60 /min 60 /min [facility] Di[facility] 74 mm[Hg] 74 mm[Hg] [facility] Systolic blood pressure 125 mm[Hg] 125 mm[Hg] O [facility] Heart rate 60 /min 60 /min [facility] Diastolic blood pressure 74 mm[Hg] 74 mm[Hg] [facility] Systolic blood pressure 125 mm[Hg] 125 mm[Hg] O [facility] Heart rate 60 /min 60 /min [facility] Oxygen saturation in Arterial blood by Pulse oximetry 100 % 100 % [facility] Respiratory rate 16 /min 16 /min [facility] temperature 98.4 [degF] 98.4 [degF] [facility] Oxygen saturation in Arterial blood by Pulse oximetry 100 % 100 % [facility] Respiratory rate 16 /min 16 /min [facility] Body temperature 98.4 [degF] 98.4 [degF] [facility] Oxygen saturation in Arterial blood by Pulse oximetry 100 % 100 % [facility] Respiratory rate 16 /min 16 /min [facility] Body temperature 98.4 [degF] 98.4 [degF] [facility] Body mass index (BMI) [Ratio] 26.1 kg/m2 26.1 k g/m2 [facility] Body height 165.00 cm 165.00 cm [facility] Body mass index (BMI) [Ratio] 26.1 kg/m2 26.1 k g/m2 [facility] Body height 165.00 cm 165.00 cm [facility] Body mass index (BMI) [Ratio] 26.1 kg/m2 26.1 k g/m2 [facility] Body height 165.00 cm 165.00 cm [facility] Body weight 71.20 kg 71.20 kg [facility] Body weight 71.20 kg 71.20 kg [facility] Body weight 71.20 kg 71.20 kg [facility] Diastolic blood pressure 75 mm[Hg] 75 mm[Hg] [facility] Systolic blood pressure 130 mm[Hg] 130 mm[Hg] [facility] Oxygen saturation in Arterial blood by Pulse oximetry 100 % 100 % [facility] Respiratory rate 18 /min 18 /min [facility] Heart rate 53 /min 53 /min [facility] Body temperature 98.2 [degF] 98.2 [degF] [facility] Body weight 70.00 kg 70.00 kg [facility] Body height 165.1 cm 165.1 cm [facility] ID Date Data Source [id number] 12/14/2020 08:08:27 AM EST [facility] Name Value Range Interpretation Code Description Data Source(s) WEIGHT RECORDED 207.01 lb 207.01 lb [facility] ID Date Data Source [id number] 03/06/2020 02:08:00 PM EDT [facility] Name Value Range Interpretation Code Description Data Source(s) WEIGHT 81.5 kilos 81.5 kilos [facility] HEIGHT 167.64 centimeters 167.64 centimeter s [facility] WEIGHT 85 kilos 85 kilos [facility] HEIGHT 167.64 centimeters 167.64 centimeter s [facility] WEIGHT 83 kilos 83 kilos [facility] HEIGHT 167.64 centimeters 167.64 centimeter s [facility] WEIGHT 86 kilos 86 kilos [facility] HEIGHT 167.64 centimeters 167.64 centimeter s [facility] WEIGHT 84.9 kilos 84.9 kilos [facility] HEIGHT 167.64 centimeters 167.64 centimeter s [facility] WEIGHT 88 kilos 88 kilos [facility] HEIGHT 167.64 centimeters 167.64 centimeter s [facility] WEIGHT 84 kilos 84 kilos [facility] HEIGHT 167.64 centimeters 167.64 centimeter s [facility] WEIGHT 79.4 kilos 79.4 kilos [facility] HEIGHT 167.64 centimeters 167.64 centimeter s [facility] WEIGHT 75.6 kilos 75.6 kilos [facility] HEIGHT 167.64 centimeters 167.64 centimeter s [facility] WEIGHT 75.3 kilos 75.3 kilos [facility] HEIGHT 167.64 centimeters 167.64 centimeter s [facility] WEIGHT 67.7 kilos 67.7 kilos [facility] HEIGHT 167.64 centimeters 167.64 centimeter s [facility] Patient Treatment Plan of Care Planned Activity Planned Date Details Description Data Source (s) Hydroxychloroquine Sulfate 200 MG Oral Tablet 01/01/2021 12:00:00 A M [facility] Cyclobenzaprine hydrochloride 5 MG Oral Tablet 01/01/2021 12:00:00 AM [facility] duloxetine 60 MG Delayed Release Oral Capsule 01/01/2021 12:00:00 A M [facility] [place] Hydrochloride 5 MG Oral Tablet 01/01/2021 12:00:00 AM [facility] Folic Acid 1 MG Oral Tablet 01/01/2021 12:00:00 AM [facility] Methotrexate 2.5 MG Oral Tablet 01/01/2021 12:00:00 AM [facility] gabapentin 400 MG Oral Capsule 01/01/2021 12:00:00 AM [facility] Zolpidem tartrate 10 MG Oral Tablet 01/01/2021 12:00:00 AM [facility] tizanidine 4 MG Oral Capsule 01/01/2021 12:00:00 AM [facility] Hydroxychloroquine Sulfate 200 MG Oral Tablet 12/18/2020 12:00:00 A M [facility] RUBY ([facility]) Prochlorperazine 5 MG/ML Injectable Solution 12/03/2020 02:30:43 PM [facility] Acetaminophen 325 MG Oral Tablet 12/03/2020 12:00:00 AM [facility] Hydroxychloroquine Sulfate 200 MG Oral Tablet 12/02/2020 12:00:00 A M [facility] Zolpidem tartrate 6.25 MG Extended Release Oral Tablet 12/02/2020 12:00:00 AM [facility] Naproxen 500 MG Oral Tablet 07/26/2020 12:00:00 AM [facility] Folic Acid 1 MG Oral Tablet 07/26/2020 12:00:00 AM [facility] [place] Hydrochloride 5 MG Oral Tablet 07/26/2020 12:00:00 AM E [facility] gabapentin 400 MG Oral Capsule 07/26/2020 12:00:00 AM [facility] Hydroxychloroquine Sulfate 200 MG Oral Tablet 07/26/2020 12:00:00 A M [facility] Methotrexate 2.5 MG Oral Tablet 07/26/2020 12:00:00 AM [facility] [place] Hydrochloride 5 MG Oral Tablet 08/30/2019 12:00:00 AM E DT [facility] Methotrexate 2.5 MG Oral Tablet 08/30/2019 12:00:00 AM [facility] Methotrexate 2.5 MG Oral Tablet 06/24/2019 12:00:00 AM [facility] Hydroxychloroquine Sulfate 200 MG Oral Tablet 06/24/2019 12:00:00 A M [facility] Folic Acid 1 MG Oral Tablet 06/24/2019 12:00:00 AM [facility] gabapentin 400 MG Oral Capsule 06/24/2019 12:00:00 AM [facility] duloxetine 60 MG Delayed Release Oral Capsule [facility] Trazodone Hydrochloride 50 MG Oral Tablet RUBY ([facility]) tramadol hydrochloride 50 MG Oral Tablet RUBY ([facility]) Sumatriptan 25 MG Oral Tablet RUBY ([facility]) tiotropium 0.018 MG/ACTUAT Inhalant Powder [Spiriva] RUBY ([facility]) Prednisone 5 MG Oral Tablet RUBY ([facility]) Ondansetron 4 MG Disintegrating Oral Tablet RUBY ([facility]) umeclidinium 0.0625 MG/ACTUAT Dry Powder Inhaler RUBY ([facility]) Acetaminophen 325 MG / Hydrocodone Bitartrate 5 MG Oral Tablet RUBY ([facility]) gabapentin 400 MG Oral Capsule RUBY ([facility]) gabapentin 300 MG Oral Capsule RUBY ([facility]) gabapentin 100 MG Oral Capsule RUBY ([facility]) Escitalopram 5 MG Oral Tablet RUBY ([facility]) duloxetine 60 MG Delayed Release Oral Capsule RUBY ([facility]) buspirone hydrochloride 5 MG Oral Tablet RUBY ([facility]) buspirone hydrochloride 15 MG Oral Tablet RUBY ([facility]) buspirone hydrochloride 10 MG Oral Tablet RUBY ([facility]) Baclofen 5 MG Oral Tablet AT CELE ([facility]) Alprazolam 0.25 MG Oral Tablet RUBY ([facility]) Trazodone Hydrochloride 50 MG Oral Tablet RUBY ([facility]) Prednisone 5 MG Oral Tablet RUBY ([facility]) pantoprazole 40 MG Delayed Release Oral Tablet RUBY ([facility]) umeclidinium 0.0625 MG/ACTUAT Dry Powder Inhaler RUBY ([facility]) gabapentin 400 MG Oral Capsule RUBY ([facility]) gabapentin 300 MG Oral Capsule RUBY ([facility]) gabapentin 100 MG Oral Capsule RBUY ([facility]) Escitalopram 5 MG Oral Tablet RUBY ([facility]) duloxetine 60 MG Delayed Release Oral Capsule RUBY ([facility]) buspirone hydrochloride 5 MG Oral Tablet RUBY ([facility]) buspirone hydrochloride 15 MG Oral Tablet RUBY ([facility]) buspirone hydrochloride 10 MG Oral Tablet RUBY ([facility]) Baclofen 5 MG Oral Tablet AT CELE ([facility]) Trazodone Hydrochloride 50 MG Oral Tablet RUBY ([facility]) pantoprazole 40 MG Delayed Release Oral Tablet RUBY ([facility]) Trazodone Hydrochloride 50 MG Oral Tablet RUBY ([facility]) Sumatriptan 50 MG Oral Tablet RUBY ([facility]) pantoprazole 40 MG Delayed Release Oral Tablet RUBY ([facility]) gabapentin 400 MG Oral Capsule RUBY ([facility]) gabapentin 300 MG Oral Capsule RUBY ([facility]) Escitalopram 5 MG Oral Tablet RUBY ([facility]) duloxetine 60 MG Delayed Release Oral Capsule RUBY ([facility]) buspirone hydrochloride 5 MG Oral Tablet RUBY ([facility]) buspirone hydrochloride 10 MG Oral Tablet RUBY ([facility]) Baclofen 5 MG Oral Tablet AT CELE ([facility]) gabapentin 400 MG Oral Capsule RUBY ([facility]) gabapentin 300 MG Oral Capsule RUBY ([facility]) gabapentin 100 MG Oral Capsule RUBY ([facility]) Escitalopram 5 MG Oral Tablet RUBY ([facility]) duloxetine 60 MG Delayed Release Oral Capsule RUBY ([facility]) buspirone hydrochloride 5 MG Oral Tablet RUBY ([facility]) buspirone hydrochloride 10 MG Oral Tablet RUBY ([facility]) Budesonide 0.16 MG/ACTUAT / formoterol f umarate 0.0045 MG/ACTUAT Metered Dose Inhaler RUBY ([facility]) Baclofen 5 MG Oral Tablet AT [facility] ([facility]) Naproxen 500 MG Oral Tablet [facility]
[2021-01-02 14:45] LABS: HCG, SERUM QUALITATIVE NEGATIVE (NEGATIVE)
[2021-01-02 15:05] LABS: ACETAMINOPHEN LEVEL < 2.0 UG/ML (10.0-30.0); ALBUMIN 3.3 GM/DL (3.2-5.2); ALT/SGPT 14 U/L (12-78); BILIRUBIN,DIRECT 0.1 MG/DL (0.0-0.2); BILIRUBIN,TOTAL 0.3 MG/DL (0.2-1.0); BLOOD UREA NITROGEN 5 MG/DL (7-18); CALCIUM LEVEL 8.7 MG/DL (8.5-10.1); CARBON DIOXIDE LEVEL 24 MEQ/L (21-32); CHLORIDE LEVEL 114 MEQ/L (98-107); CK-MB VALUE MASS 1.4 NG/ML (<3.6); CPK CREATINE PHOSPHOKINASE 66 U/L (26-192); CREATININE FOR GFR 0.91 MG/DL (0.55-1.30); ETHYL ALCOHOL (ETHANOL) 0.008 % (0.000-0.010); GLOMERULAR FILTRATION RATE > 60.0 (>58); GLUCOSE, FASTING 104 MG/DL (70-100); MB/CK RELATIVE INDEX 2.12 (< OR =4); PHOSPHORUS LEVEL 2.8 MG/DL (2.5-4.9); POTASSIUM SERUM 3.8 MEQ/L (3.5-5.1); SALICYLATE LEVEL 4.8 MG/DL (5.0-30.0); SODIUM LEVEL 142 MEQ/L (136-145); TOTAL PROTEIN 6.1 GM/DL (6.4-8.2); TROPONIN I < 0.02 NG/ML (< 0.10)
[2021-01-02 15:48] VITALS: BP 142/85
--- NOTE | 2021-01-04 08:07 | ECGEPIP ---
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
== END 2021-01-02 15:57 | disposition home or self-care (01) ==
LOC: M ED 13:33
DX: F41.9 Anxiety disorder, unspecified (principal); F31.9 Bipolar disorder, unspecified; K21.9 Gastro-esophageal reflux disease without esophagitis; K76.0 Fatty (change of) liver, not elsewhere classified; M79.7 Fibromyalgia; M06.9 Rheumatoid arthritis, unspecified; F79 Unspecified intellectual disabilities; Z98.84 Bariatric surgery status; Z88.1 Allergy status to other antibiotic agents; Z88.2 Allergy status to sulfonamides; Z88.6 Allergy status to analgesic agent; Z88.8 Allergy status to other drugs, medicaments and biological substances; Z91.040 Latex allergy status; Z79.899 Other long term (current) drug therapy

== ENCOUNTER → 2021-01-07 | Outpatient (REF) | payer MEDICARE, MEDICAID ==
[2021-01-07 18:57] LABS: CREATININE FOR GFR 1.07 MG/DL (0.55-1.30); GLOMERULAR FILTRATION RATE 59.9 (>58); POTASSIUM SERUM 3.4 MEQ/L (3.5-5.1)
[2021-01-07 18:58] LABS: ALBUMIN 3.3 GM/DL (3.2-5.2); BILIRUBIN,TOTAL 0.2 MG/DL (0.2-1.0); TOTAL PROTEIN 6.2 GM/DL (6.4-8.2)
[2021-01-07 19:04] LABS: PTH INTACT 79.9 PG/ML (18.5-88.0)
== END ==
LOC: M LAB REF 16:41
PROVIDERS: ATTEND Pediatrics
DX: Z13.228 Encounter for screening for other metabolic disorders (principal)

== ENCOUNTER 2021-01-10 18:02 | Emergency (ER) | payer MEDICARE, MEDICAID ==
[~2021-01-10] VITALS: Ht 170.2 cm; Wt 87.9 kg
[2021-01-10 18:02] VITALS: BP 142/98
--- OUTSIDE RECORDS SUMMARY | 2021-01-10 18:08 | CCD ---
Author Organization Unknown Address [address] [place] [address] Phone [phone] Care Team Providers Care Partner Name Role Phone PATI SOSA [facility] PARAPROFESSIONAL 3 [phone] [facility] 113 [phone] MARÍA CUELLO 2 [phone] CRISTINA JOSUE 2 [phone] Allergies Code Code System Name Reaction Severity Status Onset Bupropion Active 04/13/2018 2231 RxNorm Cephalexin Active 04/13/2018 Erythromycin Active 04/13/2018 8077903 RxNorm Latex Active 04/13/2018 11335 RxNorm Levofloxacin Active 04/13/20 18 65694 RxNorm Lisinopril Active 04/13/2018 7646 RxNorm Omeprazole Active 04/13/2018 1827 RxNorm Buspirone Active 480066 RxNorm Lexapro Active Sulfa (Sulfonamide Antibiotics) Active 76763 RxNorm Trimethoprim Active Medications Name Status Start Date Stop Date acetaminophen 500 mg tablet TAKE TWO TABLETS BY MOUTH EVERY 6 HOURS NEEDED FOR PAIN FOR UP TO 10 DAYS, DO NOT EXCEED SIX TABLETS IN a 24 HOUR PERIOD Active Not available albuterol sulfate HFA 90 mcg/actuation aerosol inhaler Active Not available alprazolam 0.5 mg tablet TAKE ONE TABLET BY MOUTH TWICE DAILY MAX DAILY DOSE TWO TABLETS Active Not available baclofen 10 mg tablet Active Not availa ble baclofen 5 mg tablet Completed 11/30/2020 buspirone 10 mg tablet Completed buspirone 15 mg tablet Completed buspirone 5 mg tablet Completed 11/30/2020 [id number]-[id number]-kxrrazlp 50 mg-300 mg-40 mg capsule Act ibrahima Not available calcitriol 0.25 mcg capsule Active Not available cyclobenzaprine 10 mg tablet TAKE ONE TABLET BY MOUTH THREE TIMES DAILY NEEDED FOR MUSCLE SPASMS FOR UP TO 10 DAYS Completed 01/07/2021 cyclobenzaprine 5 mg tablet TAKE ONE TABLET BY MOUTH THREE TIMES DAILY FOR UP TO 10 DAYS Active Not available Daily Multivitamin-Minerals tablet Take 1 tablet by oral route. Active Not availa ble doxepin 25 mg capsule Active Not availa ble duloxetine 30 mg capsule,delayed release Completed 01/07/2021 duloxetine 60 mg capsule,delayed release TAKE TWO CAPSULES BY MOUTH EVERY EVENING Active Not available escitalopram 5 mg tablet Completed folic acid 1 mg tablet TAKE ONE TABLET BY MOUTH ONCE DAILY Active Not available gabapentin 100 mg capsule Completed 2020 gabapentin 300 mg capsule Completed 2020 gabapentin 400 mg capsule TAKE ONE CAPSULE BY MOUTH THREE TIMES DAILY Active Not available gabapentin 600 mg tablet Completed hydroxychloroquine 200 mg tablet TAKE ONE TABLET BY MOUTH TWICE DAILY Active No t available hydroxyzine HCl 25 mg tablet TAKE ONE TABLET BY MOUTH THREE TIMES DAILY Active Not available Incruse Ellipta 62.5 mcg/actuation powder for inhalation Complet ed 12/17/2020 levetiracetam 500 mg tablet Active Not available levothyroxine 25 mcg tablet Take 1 tablet every day by oral route. Active Not available methotrexate sodium 2.5 mg tablet TAKE THREE TABLETS BY MOUTH EVERY SEVEN DAYS Active Not available metoprolol tartrate 50 mg tablet Take 1 tablet every day by oral route. Active Not available montelukast 10 mg tablet TAKE ONE TABLET BY MOUTH @8PM Active Not avail able naproxen 500 mg tablet TAKE ONE TABLET BY MOUTH TWICE DAILY with meals Active Not available olanzapine 5 mg tablet TAKE ONE TABLET BY MOUTH EVERY MORNING ONCE DAILY Active Not available pantoprazole 40 mg tablet,delayed release Completed 11/30/2020 pentoxifylline ER 400 mg tablet,extended release Active Not available pilocarpine 5 mg tablet TAKE ONE TABLET BY MOUTH THREE TIMES DAILY Active Not available prednisone 5 mg tablet Completed sumatriptan 25 mg tablet Active Not corinne ilable sumatriptan 50 mg tablet Active Not corinne ilable Symbicort 160 mcg-4.5 mcg/actuation HFA aerosol inhaler Inhale 2 puffs twice a day by inhalation route. Unknown Not available topiramate 25 mg tablet TAKE ONE TABLET BY MOUTH TWICE DAILY Completed topiramate 50 mg tablet TAKE ONE TABLET BY MOUTH TWICE DAILY Active No t available tramadol 50 mg tablet Take 1 tablet by mouth every eight hours as needed for pain MDD 150 mg Active Not available trazodone 100 mg tablet TAKE ONE TABLET BY MOUTH AT BEDTIME ONCE DAILY Active Not available trazodone 50 mg tablet Completed 1 Trelemariana Ellipta 100 mcg-62.5 mcg-25 mcg powder for inhalation Ac tive Not available Xiidra 5 % eye drops in a dropperette INSTILL 1 DROP INTO BOTH EYES BY OPHTHALMIC ROUTE 2 TIMES PER DAY APPROXIMATELY 12 HOURS APART Active Not available zolpidem 10 mg tablet TAKE ONE TABLET BY MOUTH EVERY EVENING NEEDED FOR SLEEP MAX DAILY DOSE ONE TABLET Active Not available zolpidem ER 6.25 mg tablet,extended rele ase,multiphase TAKE ONE TABLET BY MOUTH EVERY EVENING NEEDED FOR SLEEP FOR UP TO SEVEN DAYS, MAX DAILY DOSE ONE TABLET Active Not nedra medina Notes: Pt states she is allergic to busp iron and need it taken off her list. Pt states levetriacetam makes her angry and gives her insomnia. Pt does not know current dosage of sumatriptan. Problems Name Status Onset Date Source Overweight Unknown 04/13/2018 History Body Mass Index 25-29 - Overweight Active 04/13/2018 Mental Disorder Unknown 04/13/2018 History Opioid Dependence in Remission Active 04/13/2018 Chronic Pain Syndrome Active 04/13/2018 Migraine Active 04/13/2018 Rheumatoid Arthritis Active 04/13/2018 Clinical Finding Active 04/13/2018 Hypertensive Disorder Unknown 04/19/2018 History Systemic Lupus Erythematosus Active 04/19/2018 Finding Related to Sleep Unknown 04/27/2018 History Chronic Gastric Ulcer without Hemorrhage and without Perfora tion Active 05/10/2018 Foreign Body Unknown 05/10/2018 History Chronic Obstructive Lung Disease Active 05/18/2018 Polyalgia Unknown 05/18/2018 History Tobacco Dependence Caused by Cigarettes Active 05/20/20 Finding of Defecation Unknown 08/02/2018 History Tobacco Use and Exposure - Finding Unknown 09/13/2018 History Disorder of Skin Unknown 09/13/2018 History Hypersomnia Unknown 09/17/2018 History Pain Unknown 02/02/2019 History Bulimia Nervosa Active 02/15/2019 Gastric Fistula Active 03/07/2019 Clinical Finding Unknown 03/07/2019 History Breast Neoplasm [...] Ulcer Sx , , Results Lab Results Date Name Specimen Result Interpretation Description Value Range Status Address 12/17/2020 CMP, Serum or Plasma Low Glucose, Fastin g 61 mg/dL 70-100 mg/dL [facility]: 83 0 [facility] Normal Blood Urea Nitrogen 13 mg/dL 7-18 mg /dL [facility]: [address] [facility] Normal Creatinine for GFR 1.04 mg/dL 0.55-1 .30 mg/dL [facility]: [address] [facility] Normal Glomerular Filtration Rate > 60.0 >5 8 [facility]: [address] [facility] Normal Sodium Level 137 mEq/L 136-145 mEq/L [facility]: [address] [facility] Normal Potassium Serum 4.0 mEq/L 3.5-5.1 mE q/L [facility]: [address] [facility] Normal Chloride Level 106 mEq/L 98-107 mEq/ L [facility]: [address] [facility] Normal Carbon Dioxide Level 23 mEq/L 21-32 mEq/L [facility]: [address] [facility] Normal Anion Gap 8 mEq/L 8-16 mEq/L [facility]: [address] [place] [address] Normal Calcium Level 9.3 mg/dL 8.5-10.1 mg/ dL [facility]: [address] [place] [address] Low AST/SGOT 5 U/L 7-37 U/L [facility]: [address] [place] [address] Normal ALT/SGPT 13 U/L 12-78 U/L [facility]: [address] [place] [address] High Alkaline Phosphatase 207 U/L 45-117 U/L [facility]: [address] [place] [address] Normal Bilirubin,total 0.2 mg/dL 0.2-1.0 mg /dL [facility]: [address] [place] [address] Normal Total Protein 7.0 gm/dL 6.4-8.2 gm/d L [facility]: [address] [place] [address] Normal Albumin 3.6 gm/dL 3.2-5.2 gm/dL [facility]: [address] [place] [address] Low Albumin/globulin Ratio 1.1 1.2-2. 2 [facility]: [address] [place] [address] 12/17/2020 TSH, Serum or Plasma Normal Thyroid Stimulating Hormone 1.380 uIU/mL 0.358-3.740 uIU/mL [facility] nter: [address] [place] [address] Past Encounters 01/07/2021 Chronic Obstructive Lung Disease; Essential Hypertension; Hypothyroidism; Tobacco Dependence Caused by Cigarettes; Toxic Metabolic Encephalopathy; Endocrine/metabolic Screening Kalani Agrawal MD: [address] [place] [phone], Ph. 12/17/2020 Wernicke's Disease; SjGren's Syndrome; Mixed Anxiety and Depressive Disorder; Rheumatoid Arthritis; Chronic Obstructive Lung Disease; Tobacco Dependence Caused by Cigarettes; Essential Hypertension; Moderate Persistent Asthma; Steatosis of Liver; Hypothyroidism Kalani Agrawal MD: [address] [place] [phone], Ph. 12/04/2020 Migraine; Mixed Anxiety and Depressive Disorder; Chronic Pain Pati Sosa, [facility]: [address] [place] [address], Ph. 11/30/2020 Nicotine Dependence with Current Use; Mixed Anxiety and Depressive Disorder Pati Sosa [facility]: [address] [place] [address], Ph. Social History Tobacco Smoking Status Heavy Tobacco Smoker (1 PPD) Vaccine List Vaccine Type COVID-19 vaccine, vector-nr, rS-ChAdOx1, PF, 0.5 mL 11/23/2020 Plan of Care Patient Goals Improved mental status. Patient Instructions Check blood pressures twice daily with 3 readings at each sitting (3 in the AM and 3 in the PM for a total of 6 readings). Record ALL readings and bring in WITH CUFF for review at next appointment. I would like to have readings in the 110-120 range on the top and 60-70 on the bottom Referral made to psychiatry [facility] behavior [facility] for you. Your psych meds will be [...] Surgeries None recorded. Imaging None recorded. Vitals 01/07/2021 01:40PM ESTABLISHED [id number] Height Weight BMI Blood Pressure 67 in 192 lbs 6.4 oz 30.1 kg/m2 144/100 mm[H g] 12/17/2020 01:00PM ESTABLISHED [id number] Height Weight BMI Blood Pressure 67 in 198 lbs 11.2 oz 31.1 kg/m2 125/91 mm[H g] 12/04/2020 01:20PM ESTABLISHED [id number] Height Weight BMI Blood Pressure 67 in 208 lbs 6 oz 32.6 kg/m2 141/83 mm[Hg] 11/30/2020 05:00PM ESTABLISHED [id number] Height Weight BMI Blood Pressure 67 in 202 lbs 3.2 oz 31.7 kg/m2 114/77 mm[Hg ] 08/26/2019 Height Weight BMI Blood Pressure 65 in 151 lbs 6.4 oz 25.29 kg/m2 119/82 mm[Hg ] 07/06/2019 Height Weight BMI Blood Pressure 65 in 160 lbs 2.08 oz 26.74 kg/m2 135/100 mm[ Hg] 05/26/2019 Height Weight BMI Blood Pressure 65 in 178 lbs 4 oz 29.77 kg/m2 106/73 mm[Hg] 05/12/2019 Height Weight BMI Blood Pressure 65 in 179 lbs 29.89 kg/m2 109/81 mm[Hg] 03/30/2019 Height Weight BMI Blood Pressure 65 in 186 lbs 4 oz 31.11 kg/m2 115/83 mm[Hg] 03/07/2019 Height Weight BMI Blood Pressure 65 in 196 lbs 6.08 oz 32.80 kg/m2 124/88 mm[H g] 02/15/2019 Weight Blood Pressure 200 lbs 120/78 mm[Hg] 02/02/2019 Height Weight BMI Blood Pressure 65 in 182 lbs 30.40 kg/m2 106/79 mm[Hg] 12/14/2018 Height Weight BMI Blood Pressure 65 in 198 lbs 33.07 kg/m2 93/68 mm[Hg]
--- OUTSIDE RECORDS SUMMARY | 2021-01-10 18:08 | CCD ---
Author Author Madhavi Eddy Organization Unknown Address [address] [place] [address] Phone Care Team Providers Care Master Lay Out Specialist Name Role Phone Zoe Eddy PCP Allergies, Adverse Reactions, Alerts Concept Allergy Name Reaction Severity Onset Date Status Documentation Date Phone Number Npid Taxonomy Code Taxonomy Desc Author Last Name Author Fi rst Name Concept Type 871434 Abilify (aripiprazole) Anxiety 09/22/2019 Active 2018 [id number] Nurse Practitioner Juanito Fuentes RXNORM 458015 oxcarbazepine hyponatremia 01/06/2019 Active 01/06/2019 [id number] [facility] 470471 omeprazole rash 10/30/2017 Active 10/30/2017 [id number] 1 [id number] [facility] RX[facility] 140518 levofloxacin rash 10/30/2017 Active 10/30/2017 8359657798 [id number] [facility] RX[facility] 215321 Imitrex (sumatriptan succinate) rash 10/30/2017 Activ e 10/30/2017 6599611434 [id number] [facility] RX[facility] 647698 amoxicillin rash 10/30/2017 Active 10/30/2017 0594476003 [id number] [facility] RX[facility] 577418 lisinopril difficulty breathing hives Active 04/16/20 18 [id number] Psychiatry Raquel Cardona RXNORM 491 Sulfa (Sulfonamide Antibiotics) Group difficulty breathing h donis Active 04/16/2018 [id number] Psychiatry Raquel Cardona FDDC 768092 Lunesta (eszopiclone) difficulty breathing hives Activ e 04/16/2018 3425107721 [id number] Psychiatry Raquel Cardona RXNORM 289592 cephalexin difficulty breathing hives Active 04/16/20 18 7858278531 [id number] Psychiatry Raquel Cardona RXNORM 984957 bupropion hcl difficulty breathing hives Active 04/16 5224165881 [id number] Psychiatry Raquel Cardona RXNORM Problem List Concept Problem Description Status Start Date Created Date Resolv ed Date Snomed Code F32.9 Unspecified depressive Disorder Active 01/02/20 21 F17.200 Tobacco Use Disorder, Moderate Active Medications Rx Norm Medication Route Route Concept Start Date Stop Date Dosage Jose Alberto quency Duration Formula Strength Dosage Form Dosage Form Code Dosage Description Medication Id Account Npid Author First Name Author Last Name Taxonomy Code Taxonomy Desc Phone Number [id number] lorazepam by mouth [id number] 05/18/2018 at bedtime 1 [place] [id number] [id number] Gina Solomon [id number] Nurse Practitioner [id number] Benadryl Allergy by mouth [id number] 05/18/2018 at bedtime 25 mg tablet as needed [id number] Gina Solomon [id number] Nurse P ractitioner [id number] Social History Social History Element Description Concept Effective Date Smoking Status Unknown if ever smoked [id number] Immunizations No Data in Section Vital Signs No Data in Section Procedures Date Concept Id Description Targeted Site Concept Targeted Site Concept Type 01/02/2021 32592 Psychiatric Diagnostic Evaluation (Non-Medical) CPT Patient has no history of implantable de vices Encounters Encounter Start Date End Date Encounter Type Description Diagnosis Di agnosis Desc Location Author First Name Author Last Name Npid Taxonomy Cod e Taxonomy Desc Phone Number Location Addr1 Location Addr2 Location City Location [place] Location Zip [id number] 01/02/2021 01/02/2021 10343 Psychiatric Farideh gnostic Evaluation (Non-Medical) F32.9 Major depressive disorder, single episod e, unspecified [facility] [id number] Paraeducator [phone] [address] 1 [address] Plan of Treatment No Data in Section Lab Results No Data in Section Instructions No Data in Section Insurance Providers Insurance Id Policy Effective Date Policy Thru Date Company [employer] [id number] 2013 MEDICARE [id number] MEDICAID
--- OUTSIDE RECORDS SUMMARY | 2021-01-10 18:12 | CCD ---
Author Author [facility] Organization [facility] Address Unknown Phone Unavailable Support Name Relationship Address Phone CONTACT, UNKNOWN Next Of Kin Unknown Sadie [place] [address] Sadie Niño (Cousin/Healt Next Of Kin Unknown U navailable Carmen Tirado Next Of Kin [address] [place] [address] [place] Next Of Kin Unknown Unavailable KATIE NIÑO Next Of Kin Unknown D Next Of Kin Unknown Unavailable Shaniqua George Next Of Kin [address] [place] [address] FIDELIA ROMAN Next Of Kin [address] [place] [address] [place] [address] SADIE NIÑO Next Of Kin Unknown Elaine Arnold Next Of Kin [address] [place] [address] SADIE MATTSON Next Of Kin Unknown [place] [address] Osiris Ceja Next Of Kin [address] [place] [phone] Benita [place] [address] ( CELL UE Next Of Kin Unknown Unavailable ALEXANDRO DE ANDA Next [place] Kin [place], [place] ALEXANDRO EWING Next [place] Kin [place], [place] SRINIVAS MONTALVO Next Of Kin Unknown DISABLED Next Of Kin Unknown Unavailable LES MONTALVO Next Of Kin [phone] [place] [address] JOSHUAPORFIRIO AUGUSTINE Next Of Kin [id number] [place], [place] [phone] FIDELIA ROMAN ECON [address] [facility] [place] [address] Unavailable Constantin Niño ECON Unknown SADIE NIÑO ECON [address] [place] [address] [phone] Care Team Providers Care Adjunct English Instructor Name Role Phone Tanja Oneida Unavailable Tanja Oneida Unavailable Tanja, Oneida Unavailable Tanja Oneida Unavailable Tanja Oneida Unavailable Tanja Oneida Unavailable Colon, Jose Unavailable Unavailable Colon, Jose Unavailable Unavailable Colon, Jose Unavailable Unavailable Colon, Jose Unavailable Unavailable Akin GUTIERREZ MD Unavailable Unavailable Akin GUTIERREZ MD Unavailable Unavailable Akin GUTIERREZ MD Unavailable Unavailable Akin GUTIERREZ MD Unavailable Unavailable Akin GUTIERREZ MD Unavailable Unavailable Akin GUTIERREZ MD Unavailable Unavailable Akin GUTIERREZ MD Unavailable Unavailable Aikn GUTIERREZ MD Unavailable Unavailable Akin GUTIERREZ MD [...] Anderson MD Unavailable Unavailable Dator SR, Sonia Andesron MD Unavailable Unavailable Dator SR, Sonia Anderson [...] Unavailable Unavailable SHARI RAMOS MD Unavailable Unavailable OdnBunny campos MD Unavailable Unavailable DonBunny MD Unavailable Unavailable DonBunny MD Unavailable Unavailable DonBunny MD Unavailable Unavailable DonBunny MD Unavailable Unavailable Don Renko PEARSON Unavailable Unavailable Don Renko PEARSON Unavailable Unavailable Don Renko PEARSON Unavailable Unavailable Don Renko PEARSON Unavailable Unavailable Don Renko PEARSON Unavailable Unavailable Don Renko PEARSON Unavailable Unavailable Don Renko PEARSON Unavailable Unavailable Don Renko PEARSON Unavailable Unavailable Don Renko PEARSON Unavailable Unavailable Don Renko PEARSON Unavailable Unavailable Don, Renko PEARSON Unavailable Unavailable DonBunny MD Unavailable Unavailable Don, Renante MD Unavailable Unavailable DonBunny MD Unavailable Unavailable Don, Bunny PEARSON Unavailable Unavailable Don, Bunny PEARSON Unavailable Unavailable Don, Bunny PEARSON Unavailable Unavailable Don, Bunny PEARSON Unavailable Unavailable Don, Bunny PEARSON Unavailable Unavailable Don, Bunny PEARSON Unavailable Unavailable Don, Bunny PEARSON Unavailable Unavailable Don, Bunny PEARSON Unavailable Unavailable Don, Bunny PEARSON Unavailable Unavailable Don, Bunny PEARSON Unavailable Unavailable Bolla, S Demarcus PEARSON Unavailable Unavailable Bolla, S Demarcus PEARSON Unavailable Unavailable Bolla, S Demarcus PEARSON Unavailable Unavailable Bolla, S Demarcus PEARSON Unavailable Unavailable Bolla, S Demarcus PEARSON Unavailable Unavailable Bolla, S Demarcus PEARSON Unavailable Unavailable Bolla, S Demarcus PEARSON Unavailable Unavailable Bolla, S Demarcus PEARSON Unavailable Unavailable Bolla, S Demarcus PEARSON Unavailable Unavailable Bolla, S Demarcus PEARSON Unavailable Unavailable Bolla, S Demarcus PEARSON Unavailable Unavailable Bolla, S Demarcus PEARSON Unavailable Unavailable Bolla, Emiliano Tracy MD Unavailable Unavailable Bolla, Emiliano Tracy MD Unavailable Unavailable Bolla, Emiliano Tracy MD Unavailable Unavailable Bolla, S Demarcus PEARSON Unavailable Unavailable Bolla, S Demarcus PEARSON Unavailable Unavailable Bolla, S Demarcus PEARSON Unavailable Unavailable Bolla, S Demarcus PEARSON Unavailable Unavailable Bolla, Emiliano Tracy MD Unavailable Unavailable Bolla, S Demarcus PEARSON Unavailable Unavailable Bolla, S Demarcus PEARSON Unavailable Unavailable Bolla, S Demarcus PEARSON Unavailable Unavailable Bolla, Emiliano Tracy MD Unavailable Unavailable Bolla, S Demarcus PEARSON Unavailable Unavailable Bolla, Emiliano Tracy MD Unavailable Unavailable Bolla, S Demarcus PEARSON Unavailable Unavailable Bolla, S Demarcus PEARSON Unavailable Unavailable Bolla, S Demarcus PEARSON Unavailable Unavailable Bolla, S Demarcus PEARSON Unavailable Unavailable Bolla, S Demarcus PEARSON Unavailable Unavailable Bolla, S Demarcus PEARSON Unavailable Unavailable Bolla, S Demarcus PEARSON Unavailable Unavailable Bolla, S Demarcus PEARSON Unavailable Unavailable Bolla, Emiliano Tracy MD Unavailable Unavailable Bolla, S Demarcus PEARSON Unavailable Unavailable Bolla, S Demarcus PEARSON Unavailable Unavailable Bolla, S Demarcus PEARSON Unavailable Unavailable Bolla, S Demarcus PEARSON Unavailable Unavailable Bolla, S Demarcus PEARSON Unavailable Unavailable Bolla, S Demarcus PEARSON Unavailable Unavailable Bolla, S Demarcus PEARSON Unavailable Unavailable Bolla, S Demarcus PEARSON Unavailable Unavailable Bolla, S Demarcus PEARSON Unavailable Unavailable Bolla, S Demarcus PEARSON Unavailable Unavailable Bolla, Emiliano Tracy MD Unavailable Unavailable Bolradha, S Demarcus PEARSON Unavailable Unavailable Bolla, S Demarcus PEARSON Unavailable Unavailable Ian, A Elaine CHIEF POWER DISPATCHER Unavailable Unavailable Ian, A Elaine CHIEF POWER DISPATCHER Unavailable Unavailable Ian, A Elaine CHIEF POWER DISPATCHER Unavailable Unavailable Ian, A Elaine CHIEF POWER DISPATCHER Unavailable Unavailable Ian, A Elaine CHIEF POWER DISPATCHER Unavailable Unavailable Ian, A Elaine CHIEF POWER DISPATCHER Unavailable Unavailable Ian, A Elaine CHIEF POWER DISPATCHER Unavailable Unavailable Ian, A Elaine CHIEF POWER DISPATCHER Unavailable Unavailable Ian, A Elaine CHIEF POWER DISPATCHER Unavailable Unavailable Ian, A Elaine CHIEF POWER DISPATCHER Unavailable Unavailable Ian, A Elaine CHIEF POWER DISPATCHER Unavailable Unavailable Ian, A Elaine CHIEF POWER DISPATCHER Unavailable Unavailable Stuttgart, A Elaine CHIEF POWER DISPATCHER Unavailable Unavailable Stuttgart, A Elaine CHIEF POWER DISPATCHER Unavailable Unavailable Stuttgart, A Elaine CHIEF POWER DISPATCHER Unavailable Unavailable Stuttgart, A Elaine CHIEF POWER DISPATCHER Unavailable Unavailable Stuttgart, A Elaine CHIEF POWER DISPATCHER Unavailable Unavailable Stuttgart, A Elaine CHIEF POWER DISPATCHER Unavailable Unavailable Stuttgart, A Elaine CHIEF POWER DISPATCHER Unavailable Unavailable Stuttgart, A Elaine CHIEF POWER DISPATCHER Unavailable Unavailable Ian, A Elaine CHIEF POWER DISPATCHER Unavailable Unavailable Ian, A Elaine CHIEF POWER DISPATCHER Unavailable Unavailable Ian, A Elaine CHIEF POWER DISPATCHER Unavailable Unavailable Ian, A Elaine CHIEF POWER DISPATCHER Unavailable Unavailable Ian, A Elaine CHIEF POWER DISPATCHER Unavailable Unavailable Stuttgart, A Elaine CHIEF POWER DISPATCHER Unavailable Unavailable Ian, A Elaine CHIEF POWER DISPATCHER Unavailable Unavailable Ian, A Elaine CHIEF POWER DISPATCHER Unavailable Unavailable Dmitriy PATRICK MD Unavailable Unavailable [...] Scott MD Unavailable Unavailable Zack, M Samina ROCK PICKER Unavailable Unavailable Zack, M Samina ROCK PICKER Unavailable Unavailable Zack, M Samina ROCK PICKER Unavailable Unavailable Zack, M Samina ROCK PICKER Unavailable Unavailable Zack, M Samina ROCK PICKER Unavailable Unavailable Zack, M Samina ROCK PICKER Unavailable Unavailable Zack, M Samina ROCK PICKER Unavailable Unavailable Zack, M Samina ROCK PICKER Unavailable Unavailable Zack, M Samina ROCK PICKER Unavailable Unavailable Zack, M Samina ROCK PICKER Unavailable Unavailable Zack, M Samina ROCK PICKER Unavailable Unavailable Zack, M Samina ROCK PICKER Unavailable Unavailable Zack, M Samina ROCK PICKER Unavailable Unavailable SurjitZoe Unavailable NONE ROCK PICKER, MD ON NONE Unavailable Unavailable Soto, M Yen ROCK PICKER Unavailable Unavailable Soto, M Yen ROCK PICKER Unavailable Unavailable Soto, M Yen ROCK PICKER Unavailable Unavailable Soto, M Yen ROCK PICKER Unavailable Unavailable Soto, M Yen ROCK PICKER Unavailable Unavailable Soto, M Yen ROCK PICKER Unavailable Unavailable Soto, M Yen ROCK PICKER Unavailable Unavailable Soto, M Yen ROCK PICKER Unavailable Unavailable Soto, M Yen ROCK PICKER Unavailable Unavailable Soto, M Yen ROCK PICKER Unavailable Unavailable Soto, M Yen ROCK PICKER Unavailable Unavailable Soto, M Eyn ROCK PICKER Unavailable Unavailable Soto, M Yen ROCK PICKER Unavailable Unavailable Soto, M Yen ROCK PICKER Unavailable Unavailable Soto, M Yen ROCK PICKER Unavailable Unavailable Soto, M Yen ROCK PICKER Unavailable Unavailable Soto, M Yen ROCK PICKER Unavailable Unavailable Soto, M Yen ROCK PICKER Unavailable Unavailable Soto, M Yen ROCK PICKER Unavailable Unavailable Soto, M Yen ROCK PICKER Unavailable Unavailable Soto, M Yen ROCK PICKER Unavailable Unavailable Soto, M Yen ROCK PICKER Unavailable Unavailable Soto, M Yen ROCK PICKER Unavailable Unavailable Soto, M Yen ROCK PICKER Unavailable Unavailable Soto, M Yen ROCK PICKER Unavailable Unavailable Soto, M Yen ROCK PICKER Unavailable Unavailable Soto, M Yen ROCK PICKER Unavailable Unavailable Soto, M Yen ROCK PICKER Unavailable Unavailable Soto, M Yen ROCK PICKER Unavailable Unavailable Soto, M Yen ROCK PICKER Unavailable Unavailable Soto, M Yen ROCK PICKER Unavailable Unavailable Soto, M Yen ROCK PICKER Unavailable Unavailable Soto, M Yen ROCK PICKER Unavailable Unavailable Soto, M Yen ROCK PICKER Unavailable Unavailable Soto, M Yen ROCK PICKER Unavailable Unavailable Soto, M Yen ROCK PICKER Unavailable Unavailable Soto, M Yen ROCK PICKER Unavailable Unavailable Soto, M Yen ROCK PICKER Unavailable Unavailable CLAYTON PARSONS MD Unavailable Unavailable [...] SUNG, CALHOUN DO Unavailable [phone] Justina MOCK ROCK PICKER Unavailable Unavailable EMILI, L VON ROCK PICKER Unavailable Unavailable EMILI, L VON ROCK PICKER Unavailable Unavailable MOCK, L VON ROCK PICKER Unavailable Unavailable MOCK, L VON ROCK PICKER Unavailable Unavailable EMILI, L VON ROCK PICKER Unavailable Unavailable AMIDON, Radha DAVISTRIPP DO Unavailable [...] TRIPP DO Unavailable Unavailable Ian, A Elaine CHIEF POWER DISPATCHER Unavailable Unavailable Ian, A Elaine CHIEF POWER DISPATCHER Unavailable Unavailable Ian, A Elaine CHIEF POWER DISPATCHER Unavailable Unavailable Ian, A Elaine CHIEF POWER DISPATCHER Unavailable Unavailable Ian, A Elaine CHIEF POWER DISPATCHER Unavailable Unavailable Ian, A Elaine CHIEF POWER DISPATCHER Unavailable Unavailable Ian, A Elaine CHIEF POWER DISPATCHER Unavailable Unavailable Ian, A Elaine CHIEF POWER DISPATCHER Unavailable Unavailable Ian, A Elaine CHIEF POWER DISPATCHER Unavailable Unavailable Ian, A Elaine CHIEF POWER DISPATCHER Unavailable Unavailable Ian, A Elaine CHIEF POWER DISPATCHER Unavailable Unavailable Ian, A Elaine CHIEF POWER DISPATCHER Unavailable Unavailable Ian, A Elaine CHIEF POWER DISPATCHER Unavailable Unavailable Ian, A Elaine CHIEF POWER DISPATCHER Unavailable Unavailable Ian, A Elaine CHIEF POWER DISPATCHER Unavailable Unavailable Ian, A Elaine CHIEF POWER DISPATCHER Unavailable Unavailable Ian, A Elaine CHIEF POWER DISPATCHER Unavailable Unavailable Ian, A Elaine CHIEF POWER DISPATCHER Unavailable Unavailable Ian, A Elaine CHIEF POWER DISPATCHER Unavailable Unavailable Ian, A Elaine CHIEF POWER DISPATCHER Unavailable Unavailable Ian, A Elaine CHIEF POWER DISPATCHER Unavailable Unavailable Ian, A Elaine CHIEF POWER DISPATCHER Unavailable Unavailable Ian, A Elaine CHIEF POWER DISPATCHER Unavailable Unavailable Ian, A Elaine CHIEF POWER DISPATCHER Unavailable Unavailable Ian, A Elaine CHIEF POWER DISPATCHER Unavailable Unavailable Ian, A Elaine CHIEF POWER DISPATCHER Unavailable Unavailable Ian, A Elaine CHIEF POWER DISPATCHER Unavailable Unavailable Ian, A Elaine CHIEF POWER DISPATCHER Unavailable Unavailable Eron Zhong MD Unavailable Unavailable [...] Unavailable Unavailable Gil Kiser MD Unavailable Unavailable Rogall, Tan MD Unavailable [...] Unavailable Unavailable Rogall, Tan MD Unavailable Unavailable Elaine Sosa CHIEF POWER DISPATCHER CHIEF POWER DISPATCHER Unavailable Unavailable Re-disclosure Warning The records that [...] is protected by Article 27-F of the [facility] [place] Public Health law. If you continue you may have access to information: Regarding HIV / AIDS; Provided by facilities licensed or operated by the [facility] Office of Mental Health; or Provided by the [facility] Office for People With Developmental Disabilities. If such information is present, then the following [facility] mandated warning applies: This information has been [...] Oral Tablet difficulty breathing hives Active [facility] ([facility]) Propensity to adverse reactions to substance cephalexin Cephalexin 250 MG Oral Capsule difficulty breathing hives Active [facility] ([facility]) Propensity to adverse reactions to substance Lunesta (eszopi clone) Eszopiclone 1 MG Oral Tablet [Lunesta] difficulty breathing hives Active [facility] ([facility]) Propensity to adverse reactions to substance Sulfa ([facility] lfonamide Antibiotics) Group Sulfa (Sulfonamide Antibiotics) Group difficulty breathing hives Active [facility] ([facility]) Propensity to adverse reactions to substance lisinopril Lisinopril 2.5 MG Oral Tablet difficulty breathing hives Active [facility] ([facility]) Propensity to adverse reactions to substance amoxicillin Amoxicillin 250 MG Oral Capsule rash Active [facility] ([facility]) Propensity to adverse reactions to substance Imitrex (sumatr iptan succinate) 0.5 ML Sumatriptan 12 MG/ML Injection [Imitrex] rash Active [facility] ([facility]) Propensity to adverse reactions to substance levofloxacin Levofloxacin 5 MG/ML Ophthalmic Solution rash Active [facility] ([facility]) Propensity to adverse reactions to substance omeprazole Omeprazole 10 MG Delayed Release Oral Capsule rash Active [facility] ([facility]) Propensity to adverse reactions to substance oxcarbazepine oxcarbazepine 300 MG Oral Tablet Active [facility] ([facility]) Propensity to adverse reactions to substance Abilify (aripip razole) aripiprazole 10 MG Oral Tablet [Abilify] Active [facility] ( [facility]) SYSTEMIC NO ALLERGIES ON FILE NO ALLERGIES ON FILE [facility] Drug allergy ESCITALOPRAM OXALATE [facility] oranges oranges [facility] allergy eszopiclone eszopiclone [facility] allergy levofloxacin Levofloxacin [facility] Drug allergy [facility]ocl[facility]ramide [facility]ide [facility] bupropion bupropion [facility] allergy azithromycin Azithromycin [facility] allergy omeprazole omeprazole [facility] Drug allergy erythromycin base erythromycin base [facility] Drug allergy cephalexin cephalexin [facility] Drug allergy lisinopril Lisinopril [facility] Drug allergy Latex, Natural Rubber Latex, Natural Rubber [facility] Drug allergy Fish Containing Products Fish Containing Products [facility] Drug allergy Sulfa (Sulfonamide Antibiotics) Sulfa (Sulfonamide Ant ibiotics) [facility] Drug allergy NSAIDS (Non-Steroidal Anti-Inflamma NSAI DS (Non-Steroidal Anti-Inflamma [facility] Miscellaneous allergy Latex Latex PCC ([facility]) Drug allergy Sulfa Antibiotics Sulfa Antibiotics [facility] ([facility]) Drug allergy Lunesta Lunesta [facility] ([facility] Drug allergy Omeprazole Omeprazole [facility] ([facility] Drug allergy Metoclopramide Metoclopramide [facility] ([facility]) Drug allergy Lisinopril Lisinopril [facility] ([facility]) Drug allergy Levofloxacin Levofloxacin PCC ([facility]) Drug allergy Erythromycin Erythromycin [facility] ([facility]) Drug allergy Cephalexin Cephalexin [facility] ([facility]) Drug allergy Bupropion Bupropion [facility] ([facility]) Drug allergy Azithromycin Azithromycin [facility] ([facility]) Family History Family Member Name Family Member Gender Family Member Status Date o f Status Description Data Source(s) Unknown Condition [facility] Unknown Condition [facility] Unknown Condition [facility] Unknown Condition [facility] Unknown Condition [facility] Encounters Encounter Providers Location Date Indications Data Source(s ) Outpatient Attender: Yen Soto NP 04/25/2021 12:00:00 A M [facility] Kalani Agrawal MD: [place] [address], Ph. Attender: Kalani Agrawal [place] - [facility] Medical 01/07/2021 12:00:00 AM EST [facility] ([facility]) Psychiatric Diagnostic Evaluation (Non-Medical) Attender: Manny Eddy [facility] 01/02/2021 11:00:00 AM EST - 01/02/2021 11:00:00 AM EST [facility] ([facility]) Attender: Zoe Eddy 01/02/2021 12:00:00 AM EST [facility] ([facility]) Outpatient Attender: Yen Soto NP [id number] 01/01/2021 12:0 0:00 AM EST Other organ or system involvement in systemic lupus erythematosus [facility] Other organ or system involvement in sys temic lupus erythematosus Outpatient Attender: Yen Soto NP 12/31/2020 12:00:00 A M EST [facility] Outpatient Attender: Yen Soto NP 12/26/2020 12:0 0:00 AM EST Other organ or system involvement in systemic lupus erythematosus [facility] Other organ or system involvement in sys temic lupus erythematosus Extended Individual Psychotherapy - 45 min Attender: uL Eddy [facility] 12/21/2020 10:45:00 AM EST - 12/21/2020 10:45:00 AM EST [facility] ([facility]) Attender: Zoe Eddy 12/21/2020 12:00:00 AM EST [facility] ([facility]) Demarcus Monsivais MD: [id number] [place] [address], Ph. Attender: Demarcus SPENCER - [facility] - Main Office 12/18/2020 12:00:00 AM EST [facility] ([facility]) Kalani Agrawal MD: [address] [place] [address], Ph. Attender: Kalani Agrawal [facility] Medical 12/17/2020 12:00:00 AM EST [facility] ([facility]) Kalani Agrawal MD: [address] [place] [address], Ph. Attender: Kalani Agrawal [facility] Medical 12/17/2020 12:00:00 AM EST [facility] ([facility]) Outpatient 12/06/2020 12:00:00 AM [facility] Elainera Sosa [facility]: [address] [place] [address], Ph. Attender: Elaine Sosa [facility] Medical 12/04/2020 12:00:00 AM EST [facility] ([facility]) Elaine Sosa [facility]: [address] [place] [address], Ph. Attender: Elaine Sosa [facility] Medical 12/04/2020 12:00:00 AM EST [facility] ([facility]) Elaine Sosa [facility]: [address] [place] [address], Ph. Attender: Elaine Sosa [facility] Medical 12/04/2020 12:00:00 AM EST [facility] ([facility]) Emergency Att[facility]: JOVITA GUTIERREZ MDReferrer: JOVITA GUTIERREZ MD [id number] 12/03/2020 02:23:[address] [facility] - 12/03/2020 07:58:00 PM EST Migraine, unspecified, not intractable, without status migrainosus [facility] Migraine, unspecified, not intractable, without status migrainosus Patient discharged. Emergency Attender: JOVITA GUTIERREZ MDReferrer: MARISA GUTIERREZ MD 12/03/2020 02:22:40 PM [facility] Elaine Ian [facility]: [address], [place] [address], Ph. Attender: Elaine Sosa [facility] Medical 11/30/2020 12:00:00 AM EST [facility] ([facility]) Elaine Sosa [facility]: [address], [place] [address], Ph. Attender: Elaine Sosa [facility] Medical 11/30/2020 12:00:[address] [facility] ([facility]) Elaine Sosa [facility]: [address], [place] [address], Ph. Attender: Elaine Sosa [facility] Medical 11/30/2020 12:00:00 AM EST [facility] ([facility]) Elaine Sosa [facility]: [address], [place] [address], Ph. Attender: Elaine Sosa [facility] Medical 11/30/2020 12:00:00 AM [facility] ([facility]) SPECIMEN Attender: TRIPP Burnett: TRIPP MILES DO [id number]-[id number] 11/21/2020 05:06:00 PM EST - 11/21/2020 11:59:00 PM [facility] Patient discharged. Emergency Attender: VIDAL Boswell rojelio: NONE NONE NPAdmitter: VIDAL MELENDEZ MD OP-EMERGENCY DEPARTMENT 11/16/2020 07:37:00 PM EST - 11/17/2020 01:16:00 AM [facility] Patient discharged. SPECIMEN Attender: TRIPP Holliser: TRIPP MILES DO [id number]-[id number] 11/14/2020 06:11:00 PM EST - 11/14/2020 11:59:00 PM EST [facility] Patient discharged. SPECIMEN Attender: TRIPP DIAZ DOReferrer: TRIPP MILES DO [id number]-[id number] 11/07/2020 05:16:00 AM EST - 11/07/2020 11:59:00 PM EST [facility] Patient discharged. SPECIMEN Attender: VON MOOREeferrer: VON ROCA NER ROCK PICKER 2E-EEH 10/26/2020 10:53:00 AM EST - 10/26/2020 11:59:00 PM EST [facility] Patient discharged. SPECIMEN Attender: TRIPP PRETTYANTWON DOReferrer: TRIPP MILES DO 2E-HL 10/24/2020 05:17:00 PM EST - 10/24/2020 11:59:00 PM EST [facility] Patient discharged. Outpatient Attender: Bunny Fernandez MD 11/2019 08:25:00 AM EST - 11/15/2020 11:59:00 PM EST [facility] covid Patient discharged. Outpatient Attender: Bunny Fernandez MD 10/09/2020 11:42:0 0 AM EST [facility] covid Outpatient Attender: Bunny Fernandez MD 10/05/2020 12:00:0 0 AM EST [facility] covid Outpatient Attender: Bunny Fernandez MD 09/28/2020 12:00:0 0 AM EST [facility] COVID Outpatient Attender: Bunny Fernandez MD 09/21/2020 02:36:0 0 PM EST [facility] covid Outpatient Attender: Bunny Fernandez MD 09/14/2020 12:00:0 0 AM EDT [facility] covid Outpatient Attender: Bunny Fernandez MD 09/10/2020 11:25:0 0 AM EDT [facility] covid Outpatient Attender: Bunny Fernandez MD 07:00:00 AM EDT - 08/15/2020 11:59:[address] [facility] Patient discharged. Recurring Patient Referrer: Yen Soto NP 08/02/2020 08: 52:44 AM EDT [facility] Recurring Patient Referrer: Yen Soto NP 08/02/2020 08: 52:18 AM EDT [facility] Outpatient Attender: Yen Charles THAKKAR [id number] 07/26/2020 12:0 0:00 AM EDT Other organ or system involvement in systemic lupus erythematosus [facility] Other organ or system involvement in sys temic lupus erythematosus Outpatient Attender: Eron Zhong MDReferrer: [facility] COVID 19 null 07/17/2020 03:21:00 PM EDT resident covid screen /m[facility]ir [facility] resident covid screen /mihir Emergency Attender: Vickie Arnold 0 07:50:00 PM EDT - 06/21/2020 12:34:00 AM EDT All Over Body Pain [facility] All Over Body Pain Patient discharged. Outpatient Attender: Bunny Fernandez MD 01/2020 12:00:00 AM EDT - 2020 11:59:00 PM EDT [facility] Patient discharged. Outpatient Attender: Bunny Fernandez MD 07:35:00 AM EDT - 06/15/2020 11:59:[address] [facility] Patient discharged. Inpatient Attender: Bunny Fernandez MD 04:00:00 PM EDT - 10/17/2020 12:00:00 PM EST [facility] ([facility]) Patient discharged. Outpatient Attender: Justin Bone SR 06/07/2020 11:10:00 P M EDT Eval [facility] Eval Outpatient Attender: Brendan Meneses mitter: Brendan Kiser MDConsultant: Brendan Kiser MD 06/07/2020 09:10:00 PM EDT Depression, Suicidal Ideation [facility] Depression, Suicidal Ideation Outpatient Attender: Brendan Meneses mitter: Brendan Kiser MDConsultant: Brendan Kiser MD 06/07/2020 09:10:00 PM EDT Depression, Suicidal Ideation [facility] Depression, Suicidal Ideation Outpatient Attender: Brendan Meneses mitter: Brendan Kiser MDConsultant: Brendan Kiser MD 06/07/2020 09:10:00 PM EDT Depression, Suicidal Ideation [facility] Depression, Suicidal Ideation Inpatient Attender: Brendan Flores tender: Vickie ArnoldAdmitter: Brendan Kiser MD 06/07/2020 09:10:00 PM EDT - 06/12/2020 03:20:00 PM EDT Depression, Suicidal Ideation [facility] Depression, Suicidal Ideation Patient discharged. Outpatient Attender: Brendan Meneses mitter: Brendan Kiser MDConsultant: Brendan Kiser MD 06/07/2020 09:10:00 PM EDT Depression, Suicidal Ideation [facility] Depression, Suicidal Ideation Outpatient Attender: Jose ShuklaAdmitter : Brendan Kiser MDConsultant: Brendan Kiser MD 06/07/2020 09:10:00 PM EDT Depression, Suicidal Ideation [facility] Depression, Suicidal Ideation Outpatient Attender: Jose ShuklaAdmitter : Brendan Kiser MDConsultant: Brendan Kiser MD 06/07/2020 09:10:00 PM EDT Depression, Suicidal Ideation [facility] Depression, Suicidal Ideation Outpatient Attender: RADHA GARCIA 05/23/2020 04:33:00 P M EDT [facility] Emergency Attender: Vickie Arnold 0 02:21:00 AM EDT - 05/09/2020 08:45:00 AM EDT Pain Managment [facility] Pain Managment Patient discharged. Outpatient Attender: Key Scott MD 04/16/2020 11:00:00 PM EDT [employer] [facility] [employer] Outpatient Attender: Key Zepeda/ APakoMZeb ornelas 04/16/2020 01:45:00 PM EDT [facility] ([facility] [place]) Outpatient Attender: Elaine GARCIA 04/11/2020 11:0 4:03 AM EDT [facility] Outpatient Attender: Bunny Fernandez MD 07:40:00 AM EDT - 04/15/2020 11:59:[address] [facility] Patient discharged. Outpatient Attender: Elaine GARCIA 04/03/2020 09:0 1:01 AM EDT [facility] Inpatient Attender: Bunny Fernandez MD 03:10:00 PM EDT - 06/07/2020 08:00:00 PM EDT [facility] ([facility]) Patient discharged. Outpatient Attender: Tan Meneses mitter: Tan Pulido MDConsultant: Tan Pulido MD 03/28/2020 03:07:00 PM EDT Intractable Headache , R/O COVID [facility] Intractable Headache, R/O COVID Inpatient Attender: Samina Dixon NPAt tender: Sandee Grullon MDAttender: Tan Pulido MDAttender: Mirtha Henry MDAdmitter: Tan Pulido MD 03/28/2020 02:08:00 PM EDT - 04/02/2020 02:55:00 PM EDT Intractable Headache, R/O COVID [facility] Intractable Headache, R/O COVID Patient discharged. Outpatient Attender: Sandeeleyla Grullon Zaira mitter: Tan Pulido MDConsultant: Samina Dixon NP 03/28/2020 02:08:00 PM EDT Intractable Headache , R/O COVID [facility] Intractable Headache, R/O COVID Outpatient Attender: Samina Chaney mitter: Tan Pulido MDConsultant: Samina Dixon NP 03/28/2020 02:08:00 PM EDT Intractable Headache , R/O COVID [facility] Intractable Headache, R/O COVID Outpatient Attender: Samina Chaney mitter: Tan Pulido MDConsultant: Samina Dixon NP 03/28/2020 02:08:00 PM EDT Intractable Headache , R/O COVID [facility] Intractable Headache, R/O COVID Outpatient Attender: Samina Chaney mitter: Tan Pulido MDConsultant: Samina Dixon NP 03/28/2020 02:08:00 PM EDT Intractable Headache , R/O COVID [facility] Intractable Headache, R/O COVID Outpatient Attender: Bunny Fernandez MD 09/2020 12:00:00 AM EDT - 04/15/2020 11:59:00 PM EDT [facility] Patient discharged. [facility] [address] [address] 03/22/2020 12:00:00 AM EDT [facility] ([facility]) Outpatient Attender: Bunny Fernandez MD 12:00:00 AM EST - 01/14/2020 11:59:00 PM EST lab [facility] lab Patient discharged. Outpatient Attender: RADHA GARCIA FP 12/13/2019 03:40:00 P M [facility] Outpatient Attender: Bunny Fernandez MD 12:00:00 AM EST - 12/16/2019 11:59:00 PM [facility] Patient discharged. Outpatient Attender: RADHA GARCIA FP 11/14/2019 09:01:14 P M [facility] Outpatient Attender: Bunny Fernandez MD 08:40:00 AM EST - 11/15/2019 11:59:00 PM EST lab [facility] lab Patient discharged. Inpatient Attender: Bunny Fernandez MD 03:10:00 PM EST - 03/28/2020 01:51:00 PM EDT [facility] ([facility]) Patient discharged. Inpatient Attender: LJ RODRIGUEZ DOAttender : LJ RODRIGUEZ DOAttender: SHARI RAMOS MDAttender: EMILY PATRICK MDAttender: EMILY PATRICK MDAdmitter: EMILY PATRICK MD ER-ICU 09/08/2019 11:21:00 PM EDT - 09/23/2019 12:30:00 PM [facility] Patient discharged. Outpatient Attender: CLAYTON PARSONS MD [email or web address] 12/03/2016 12:52:[facility] Status Immunizations Vaccine Date Status Description Data Source(s) COVID-19 vaccine, vector-nr, rS-ChAdOx1, PF, 0.5 mL 11/23/19 21 12:00:00 AM EST completed 11/23/2020 [facility] ([facility]) COVID-19 vaccine, vector-nr, rS-ChAdOx1, PF, 0.5 mL 11/23/19 21 12:00:00 AM EST completed 11/23/2020 [facility] ([facility]) COVID-19 vaccine, vector-nr, rS-ChAdOx1, PF, 0.5 mL 11/23/19 21 12:00:00 AM EST completed 11/23/2020 [facility] ([facility]) COVID-19 vaccine, vector-nr, rS-ChAdOx1, PF, 0.5 mL 11/23/19 12:00:00 AM EST completed 11/23/2020 [facility] ([facility]) Medications Medication Brand Name Start Date Product [...] 1 tablet by mouth [facility] Long-term use of Plaquenil Other systemic lupus erythematosus with other organ involvement Sjogren's syndrome with keratoconjunctiv itis sicca tizanidine 4 MG Oral Capsule tiZANidine HCl 4 MG Oral Capsule (ZANAFLEX) tiZANidine HCl 4 MG Oral Capsule (ZANAFLEX) 01/01/2021 12:00:00 AM EST 4 mg Oral active Muscle spasm Take 1 capsu le by mouth Three times daily as needed for Muscle spasms [facility] Muscle spasm Zolpidem tartrate 10 MG Oral Tablet Zolp idem Tartrate 10 MG Oral Tablet (AMBIEN) Zolpidem Tartrate 10 MG Oral Tablet (AMBIEN) 01/01/2021 12:00:00 AM EST 10 mg Oral active Insomnia, unspecified type Take 1 tablet by mouth nightly as needed for Sleep for up to 7 days, Max Daily Dose: 10 mg [facility] Insomnia, unspecified type duloxetine 60 MG Delayed Release Oral Ca psule DULoxetine HCl 60 MG Oral Capsule Delayed Release Particles (CYMBALTA) DULoxetine HCl 60 MG Oral Capsule Delaye d Release Particles (CYMBALTA) 01/01/2021 12:00:00 AM EST 120 mg Oral active Fibromyalgia Take 2 capsules by mouth nightly [facility] Fibromyalgia Cyclobenzaprine hydrochloride 5 MG Oral Tablet Cyclobenzaprine HCl 5 MG Oral Tablet (FLEXERIL) Cyclobenzaprine HCl 5 MG Oral Tablet (FLEXERIL) 2020 12:00:00 AM EST 5 mg Oral aborted Fibromyalgia Take 1 tablet by mouth Three times daily as needed for Muscle spasms for up to 10 days [facility] Fibromyalgia Folic Acid 1 MG Oral Tablet Folic Acid 1 MG Oral Table t (FOLVITE) Folic Acid 1 MG Oral Tablet (FOLVITE) 01/01/2021 12:00:00 AM EST 1 mg Oral active High risk medication use Take 1 tablet by mouth daily [facility] High risk medication use Pilocarpine Hydrochloride 5 MG Oral Tabl et Pilocarpine HCl 5 MG Oral Tablet (SALAGEN) Pilocarpine HCl 5 MG Oral Tablet (SALAGEN) 01/01/2021 12:00: 00 AM EST 5 mg Oral active High risk medication use Take 1 tablet by mouth Three times daily [facility] High risk medication use gabapentin 400 MG Oral Capsule Gabapentin 400 MG Oral Capsule (NEURONTIN) Gabapentin 400 MG Oral Capsule (NEURONTIN) 01/01/2021 12:00:00 AM EST 400 mg Oral active Fibromyalgia Take 1 capsule by mouth Three times daily [facility] Fibromyalgia Methotrexate 2.5 MG Oral Tablet Methotrexate 2.5 MG Oral Tab let 01/01/2021 12:00:00 AM EST 7.5 mg Oral active Othe r systemic lupus erythematosus with other organ involvementSjogren's syndrome with keratoconjunctivitis sicca Take 3 tablets by mouth every 7 (seven) days [facility] Other systemic lupus erythematosus with other organ involvement Sjogren's syndrome with keratoconjunctiv itis sicca Hydroxychloroquine Sulfate 200 MG Oral T ablet hydroxychloroquine 200 mg tablet TAKE ONE TABLET BY MOUTH TWICE DAILY hydroxychloroquine 200 mg tablet TAKE ON E TABLET BY MOUTH TWICE DAILY 12/18/2020 12:00:00 AM EST completed hydroxychloroquine sulfate 200 MG Oral Tablet [facility] ([facility]) iohexol (OMNIPAQUE) 350 MG/ML contrast injection 75 mL [id number] 12/03/2020 03:45:00 PM EST 75 mL Given by IV completed 75 mL, Given by IV, 1 TIME IMAGING, 12/03/20 at 1545, For 1 dose [facility] Medication administered onsite magnesium sulfate in dextrose 5 % infusion (premix) 1 g 0409 -6727-23 12/03/2020 02:45:00 PM EST 1 g Intravenous completed 1 g, Intravenous, Administer over 15 Minutes, Once, Thu12/03/20 at 1445, For 1 dose [facility] Medication administered onsite 1 ML Ketorolac Tromethamine 30 MG/ML [place] [facility] ketorolac (TORADOL) 30 MG/ML injection 15 mg ketorolac (TORADOL) 30 MG/ML injection 15 mg 02:45:00 PM EST 15 mg Intravenous completed 15 mg, Intravenous, Once, Thu12/03/20 at 1445, For 1 dose [facility] Medication administered onsite lactated ringers bolus 1,000 mL [id number] 12/03/2020 02:45:00 PM EST 1000 mL Intravenous completed 1,000 mL , Intravenous, Once, Thu12/03/20 at 1445, For 1 dose [facility] Medication administered onsite diphenhydrAMINE (BENADRYL) injection 50 mg [id number] 12/03/2020 02:45:00 PM EST 50 mg Intravenous completed 50 mg, Intravenous, Once, Thu12/03/20 at 1445, For 1 dose [facility] Medication administered onsite Prochlorperazine 5 MG/ML Injectable Solu tion prochlorperazine (COMPAZINE) injection 10 mg prochlorperazine (COMPAZINE) injection 10 mg 02:30:43 PM EST 10 mg Intravenous active 10 m g, Intravenous, Every 6 hours PRN, Nausea, Vomiting, Starting Thu12/03/20 at 1430, For 30 days
For IV use: Prepare in 50 mL NS and infuse over 15 minutes.
[facility] Medication administered onsite Acetaminophen 325 MG Oral Tablet Acetaminophen 325 MG Oral T ablet 12/03/2020 12:00:00 AM EST 650 mg Oral active Take 2 tablets by mouth every 6 (six) hours as needed for Pain (acute) for up to 10 days [facility] Hydroxychloroquine Sulfate 200 MG Oral T ablet Hydroxychloroquine Sulfate 200 MG Oral Tablet (PLAQUENIL) Hydroxychloroquine Sulfate 200 MG Oral T ablet (PLAQUENIL) 12/02/2020 12:00:00 AM EST 200 mg Oral a borted Long-term use of PlaquenilOther systemic lupus erythematosus with other organ involvementSjogren's syndrome with keratoconjunctivitis sicca Take 1 tablet by mouth [facility] Long-term use of Plaquenil Other systemic [...] 7 days, Max Daily Dose: 6.25 mg [facility] Primary insomnia Hydroxychloroquine Sulfate 200 MG Oral T ablet Hydroxychloroquine Sulfate 200 MG Oral Tablet (PLAQUENIL) Hydroxychloroquine Sulfate 200 MG Oral T ablet (PLAQUENIL) 07/26/2020 12:00:00 AM EDT 200 mg Oral a ctive Long-term use of PlaquenilOther systemic lupus erythematosus with other organ involvementSjogren's syndrome with keratoconjunctivitis sicca Take 1 tablet by mouth [facility] Long-term use of Plaquenil Other systemic lupus erythematosus with other organ involvement Sjogren's syndrome with keratoconjunctiv itis sicca Naproxen 500 MG Oral Tablet Naproxen 500 MG Oral Table t (NAPROSYN) Naproxen 500 MG Oral Tablet (NAPROSYN) 07/26/2020 12:00:00 AM EDT 500 mg Oral active Polyarthralgia Take 1 tablet by mouth Two times daily w ith meals [facility] Polyarthralgia Pilocarpine Hydrochloride 5 MG Oral Tabl et Pilocarpine HCl 5 MG Oral Tablet (SALAGEN) Pilocarpine HCl 5 MG Oral Tablet (SALAGEN) 07/26/2020 12:00: 00 AM EDT 5 mg Oral aborted High risk medication use Take 1 tablet by mouth Three times daily [facility] High risk medication use Folic Acid 1 MG Oral Tablet Folic Acid 1 MG Oral Table t (FOLVITE) Folic Acid 1 MG Oral Tablet (FOLVITE) 07/26/2020 12:00:00 AM EDT aborted High risk medication use TAKE TWO TABLETS BY MOUTH @8AM [facility] High risk medication use Methotrexate 2.5 MG Oral Tablet Methotrexate 2.5 MG Oral Tab let 07/26/2020 12:00:00 AM EDT 7.5 mg Oral active Take 3 tablets by mouth every 7 (seven) days [facility] gabapentin 400 MG Oral Capsule Gabapentin 400 MG Oral Capsule (NEURONTIN) Gabapentin 400 MG Oral Capsule (NEURONTIN) 07/26/2020 12:00:00 AM EDT 400 mg Oral aborted Take 1 capsule by mo ut Three times daily [facility] Doxycycline Monohydrate 100 MG Oral Tablet Doxycycline Monoh ydrate 04/29/2020 12:00:00 AM EDT ORAL active [facility] ([facility]) Saccharomyces boulardii 250 MG Oral Capsule Saccharomy bjorn Boulardii Saccharomyces Boulardii 04/02/2020 12:17:03 PM EDT CAPSULE 250 MG ORAL active [facility] Saccharomyces boulardii 250 MG Oral Capsule Saccharomy bjorn Boulardii Saccharomyces Boulardii 04/02/2020 12:17:03 PM EDT CAPSULE 250 MG ORAL active [facility] Amoxicillin 875 MG / Clavulanate 125 MG Oral Tablet Am oxicillin-Pot Clavulanate Amoxicillin-Pot Clavulanate 04/02/2020 12:17:03 PM EDT TABLET 1 TAB ORAL active [facility] Acetaminophen 325 MG / Hydrocodone Enrike trate 5 MG Oral Tablet Hydrocodone-Acetaminophen Hydrocodone-Acetaminophen 04/02/2020 12:17:03 PM EDT TABLET 1 TAB ORAL active [facility] Amoxicillin 875 MG / Clavulanate 125 MG Oral Tablet Am oxicillin-Pot Clavulanate Amoxicillin-Pot Clavulanate 04/02/2020 12:17:03 PM EDT TABLET 1 TAB ORAL active [facility] Amoxicillin 875 MG / Clavulanate 125 MG Oral Tablet Am oxicillin-Pot Clavulanate Amoxicillin-Pot Clavulanate 04/02/2020 12:17:03 PM EDT TABLET 1 TAB ORAL active [facility] Acetaminophen 325 MG / Hydrocodone Enrike trate 5 MG Oral Tablet Hydrocodone-Acetaminophen Hydrocodone-Acetaminophen 04/02/2020 12:17:03 PM EDT TABLET 1 TAB ORAL active [facility] Saccharomyces boulardii 250 MG Oral Capsule Saccharomy bjorn Boulardii Saccharomyces Boulardii 04/02/2020 12:17:03 PM EDT CAPSULE 250 MG ORAL active [facility] Acetaminophen 325 MG / Hydrocodone Enrike trate 5 MG Oral Tablet Hydrocodone-Acetaminophen Hydrocodone-Acetaminophen 04/02/2020 12:17:03 PM EDT TABLET 1 TAB ORAL active [facility] Saccharomyces boulardii 250 MG Oral Capsule Saccharomy bjorn Boulardii Saccharomyces Boulardii 04/02/2020 12:17:03 PM EDT CAPSULE 250 MG ORAL active [facility] Acetaminophen 325 MG / Hydrocodone Enrike trate 5 MG Oral Tablet Hydrocodone-Acetaminophen Hydrocodone-Acetaminophen 04/02/2020 12:17:03 PM EDT TABLET 1 TAB ORAL active [facility] Amoxicillin 875 MG / Clavulanate 125 MG Oral Tablet Am oxicillin-Pot Clavulanate Amoxicillin-Pot Clavulanate 04/02/2020 12:17:03 PM EDT TABLET 1 TAB ORAL active [facility] pantoprazole 40 MG Delayed Release Oral Tablet [Proton ix] Pantoprazole Pantoprazole 03/28/2020 10:02:59 AM EDT UNASSIGNED 40 MG ORAL activ e [facility] 120 ACTUAT Budesonide 0.16 MG/ACTUAT / f ormoterol fumarate 0.0045 MG/ACTUAT Metered Dose Inhaler Budesonide-Formoterol Budesonide-Formoterol 03/28/2020 10:02:59 AM EDT UNASSIGNED 2 PUFF INHALATION active [facility] Bisacodyl 10 MG Rectal Suppository Bisacodyl 03/28/2020 10 :02:59 AM EDT UNASSIGNED 10 MG RECTAL active [facility] Sumatriptan 50 MG Oral Tablet [Imitrex] Sumatriptan Lind ccinate Sumatriptan Succinate 03/28/2020 10:02:59 AM EDT TABLET 0 Route active [facility] duloxetine 60 MG Delayed Release Oral Capsule Duloxetine Dul oxetine 03/28/2020 10:02:59 AM EDT UNASSIGNED 60 MG ORAL active [facility] 120 ACTUAT Budesonide 0.16 MG/ACTUAT / f ormoterol fumarate 0.0045 MG/ACTUAT Metered Dose Inhaler Budesonide-Formoterol Budesonide-Formoterol 03/28/2020 10:02:59 AM EDT UNASSIGNED 2 PUFF INHALATION active [facility] buspirone hydrochloride 10 MG Oral Tablet Buspirone Buspiron e 03/28/2020 10:02:59 AM EDT TABLET 10 MG ORAL active O [facility] Calcium Carbonate 1250 MG / Cholecalcife rol 0.01 MG Oral Tablet Calcium Carbonate-Vitamin D3 Calcium Carbonate-Vitamin D3 03/28/2020 10:02:59 AM EDT TABLET 1 TAB ORAL active [facility] Sumatriptan 50 MG Oral Tablet [Imitrex] Sumatriptan Lind ccinate Sumatriptan Succinate 03/28/2020 10:02:59 AM EDT TABLET 0 Route active [facility] Levetiracetam 500 MG Oral Tablet [Keppra] Levetiracetam 03/28/2020 10:02:59 AM EDT TABLET 500 MG [facility] Escital[facility] 5 MG Oral Tablet Escitalopram Oxalate Escitalop [place] Oxalate 03/28/2020 10:02:59 AM EDT TABLET 5 MG ORAL active [facility] Docusate Sodium 100 MG Oral Capsule Docusate Sodium 03/28/2020 1 0:02:59 AM EDT CAPSULE 100 MG ORAL active [facility] Docusate Sodium 100 MG Oral Capsule Docusate Sodium 03/28/2020 1 0:02:59 AM EDT CAPSULE 100 MG ORAL active [facility] Sumatriptan 50 MG Oral Tablet [Imitrex] Sumatriptan Lind ccinate Sumatriptan Succinate 03/28/2020 10:02:59 AM EDT TABLET 0 Route active [facility] Bisacodyl 10 MG Rectal Suppository Bisacodyl 03/28/2020 10 :02:59 AM EDT UNASSIGNED 10 MG [facility]AL [facility] T[facility] Hydro[facility]ide 50 MG Oral Tablet Trazodone 2019 10:02:59 AM EDT TABLET 50 MG ORAL active [facility] duloxetine 60 MG Delayed Release Oral Capsule Duloxetine Dul oxetine 03/28/2020 10:02:59 AM EDT UNASSIGNED 60 MG ORAL active [facility] Trazodone Hydrochloride 50 MG Oral Tablet Trazodone 2019 10:02:59 AM EDT TABLET 50 MG ORAL active [facility] tiotropium 0.018 MG/ACTUAT Inhalant Powder Tiotropium [employer] Tiotropium [employer] 03/28/2020 10:02:59 AM EDT UNASSIGNED 1 CAP INHALATION active [facility] buspirone hydrochloride 10 MG Oral Tablet Buspirone Buspiron e 03/28/2020 10:02:59 AM EDT TABLET 10 MG ORAL active O [facility] Hydroxychloroquine Sulfate 200 MG Oral Tablet Hydroxychloroq uine 03/28/2020 10:02:59 AM EDT TABLET 200 MG ORAL active O [facility] Sumatriptan 50 MG Oral Tablet [Imitrex] Sumatriptan Lind ccinate Sumatriptan Succinate 03/28/2020 10:02:59 AM EDT TABLET 0 Route active [facility] Docusate Sodium 100 MG Oral Capsule Docusate Sodium 03/28/2020 1 0:02:59 AM EDT CAPSULE 100 MG ORAL active [facility] Metoprolol Tartrate 50 MG Oral Tablet Metoprolol Tartrate 10:02:59 AM EDT TABLET 50 MG ORAL active [facility] 120 ACTUAT Budesonide 0.16 MG/ACTUAT / f ormoterol fumarate 0.0045 MG/ACTUAT Metered Dose Inhaler Budesonide-Formoterol Budesonide-Formoterol 03/28/2020 10:02:59 AM EDT UNASSIGNED 2 PUFF INHALATION active [facility] pantoprazole 40 MG Delayed Release Oral Tablet [Proton ix] Pantoprazole Pantoprazole 03/28/2020 10:02:59 AM EDT UNASSIGNED 40 MG ORAL activ e [facility] Escitalopram 5 MG Oral Tablet Escitalopram Oxalate Escitalop [place] Oxalate 03/28/2020 10:02:59 AM EDT TABLET 5 MG ORAL active [facility] gabapentin 100 MG Oral Capsule [Neurontin] Gabapentin Gabape ntin 03/28/2020 10:02:59 AM EDT CAPSULE 200 MG ORAL active [facility] duloxetine 60 MG Delayed Release Oral Capsule Duloxetine Dul oxetine 03/28/2020 10:02:59 AM EDT UNASSIGNED 60 MG ORAL active [facility] 120 ACTUAT Budesonide 0.16 MG/ACTUAT / f ormoterol fumarate 0.0045 MG/ACTUAT Metered Dose Inhaler Budesonide-Formoterol Budesonide-Formoterol 03/28/2020 10:02:59 AM EDT UNASSIGNED 2 PUFF INHALATION active [facility] pantoprazole 40 MG Delayed Release Oral Tablet [Proton ix] Pantoprazole Pantoprazole 03/28/2020 10:02:59 AM EDT UNASSIGNED 40 MG ORAL activ e [facility] tiotropium 0.018 MG/ACTUAT Inhalant Powder Tiotropium [employer] Tiotropium [employer] 03/28/2020 10:02:59 AM EDT UNASSIGNED 1 CAP INHALATION active [facility] Folic Acid 1 MG Oral Tablet Folic Acid 03/28/2020 10:02:59 AM EDT TAB LET 1 MG ORAL active [facility] Thiamine 100 MG Oral Tablet Thiamine Hcl (Vitamin B1) Thiami ne Hcl (Vitamin B1) 03/28/2020 10:02:59 AM EDT TABLET 100 MG ORAL active [facility] Methotrexate 7.5 MG Oral Tablet Methotrexate Sodium Methotre xate Sodium 03/28/2020 10:02:59 AM EDT TABLET 7.5 MG ORAL active [facility] Sorbitol 700 MG/ML Rectal Solution Sorbitol 03/28/2020 10:02:59 AM EDT SOLUTION 30 ML ORAL active [facility] buspirone hydrochloride 10 MG Oral Tablet Buspirone Buspiron e 03/28/2020 10:02:59 AM EDT TABLET 10 MG ORAL active O [facility] Folic Acid 1 MG Oral Tablet Folic Acid 03/28/2020 10:02:59 AM EDT TAB LET 1 MG ORAL active [facility] pantoprazole 40 MG Delayed Release Oral Tablet [Proton ix] Pantoprazole Pantoprazole 03/28/2020 10:02:59 AM EDT UNASSIGNED 40 MG ORAL activ e [facility] gabapentin 100 MG Oral Capsule [Neurontin] Gabapentin Gabape ntin 03/28/2020 10:02:59 AM EDT CAPSULE 200 MG ORAL active [facility] Sorbitol 700 MG/ML Rectal Solution Sorbitol 03/28/2020 10:02:59 AM EDT SOLUTION 30 ML ORAL active [facility] Nayfudoujuwd-Whi-Djkd-Fa-Vit K 03/28/2020 10:02:59 AM EDT TABLET 1 TAB ORAL active [facility] gabapentin 100 MG Oral Capsule [Neurontin] Gabapentin Gabape ntin 03/28/2020 10:02:59 AM EDT CAPSULE 200 MG ORAL active [facility] Metoprolol Tartrate 50 MG Oral Tablet Metoprolol Tartrate 10:02:59 AM EDT TABLET 50 MG ORAL active [facility] Sorbitol 700 MG/ML Rectal Solution Sorbitol 03/28/2020 10:02:59 AM EDT SOLUTION 30 ML ORAL active [facility] sennosides, LONG-TERM 8.6 MG Oral Tablet Sennosides Sennosides 03/28/2020 10:02:59 AM EDT TABLET 17.2 MG ORAL active [facility] Methotrexate 7.5 MG Oral Tablet Methotrexate Sodium Methotre xate Sodium 03/28/2020 10:02:59 AM EDT TABLET 7.5 MG ORAL active [facility] pantoprazole 40 MG Delayed Release Oral Tablet [Proton ix] Pantoprazole Pantoprazole 03/28/2020 10:02:59 AM EDT UNASSIGNED 40 MG ORAL activ e [facility] Calcium Carbonate 1250 MG / Cholecalcife rol 0.01 MG Oral Tablet Calcium Carbonate-Vitamin D3 Calcium Carbonate-Vitamin D3 03/28/2020 10:02:59 AM EDT TABLET 1 TAB [facility] Bis[facility] 10 MG Rectal Suppository Bisacodyl 03/28/2020 10 :02:59 AM EDT UNASSIGNED 10 MG RECTAL active [facility] Pxwfdykvwjrm-Ewr-Cqhm-Fa-Vit K 03/28/2020 10:02:59 AM EDT TABLET 1 TAB ORAL active [facility] Methotrexate 7.5 MG Oral Tablet Methotrexate Sodium Methotre xate Sodium 03/28/2020 10:02:59 AM EDT TABLET 7.5 MG ORAL active [facility] gabapentin 100 MG Oral Capsule [Neurontin] Gabapentin Gabape ntin 03/28/2020 10:02:59 AM EDT CAPSULE 200 MG ORAL active [facility] Yvdznncwgdrp-Vwt-Bhis-Fa-Vit K 03/28/2020 10:02:59 AM EDT TABLET 1 TAB ORAL active [facility] sennosides, LONG-TERM 8.6 MG Oral Tablet Sennosides Sennosides 03/28/2020 10:02:59 AM EDT TABLET 17.2 MG ORAL active [facility] Levetiracetam 500 MG Oral Tablet [Keppra] Levetiracetam 03/28/2020 10:02:59 AM EDT TABLET 500 MG ORAL active [facility] Hydroxychloroquine Sulfate 200 MG Oral Tablet Hydroxychloroq uine 03/28/2020 10:02:59 AM EDT TABLET 200 MG [facility] Hydroxychloroquine Sulfate 200 MG Oral Tablet Hydroxychloroq uine 03/28/2020 10:02:59 AM EDT TABLET 200 MG [facility]AL [facility] Docusate Sodium 100 MG Oral Capsule Docusate Sodium 03/28/2020 1 0:02:59 AM EDT CAPSULE 100 MG ORAL active [facility] Calcium Carbonate 1250 MG / Cholecalcife rol 0.01 MG Oral Tablet Calcium Carbonate-Vitamin D3 Calcium Carbonate-Vitamin D3 03/28/2020 10:02:59 AM EDT TABLET 1 TAB ORAL active [facility] Trazodone Hydrochloride 50 MG Oral Tablet Trazodone 2019 10:02:59 AM EDT TABLET 50 MG ORAL active [facility] duloxetine 60 MG Delayed Release Oral Capsule Duloxetine Dul oxetine 03/28/2020 10:02:59 AM EDT UNASSIGNED 60 MG ORAL active [facility] sennosides, LONG-TERM 8.6 MG Oral Tablet Sennosides Sennosides 03/28/2020 10:02:59 AM EDT TABLET 17.2 MG ORAL [facility] Hydroxychloroqu[facility] Sulfate 200 MG Oral Tablet Hydroxychloroq uine 03/28/2020 10:02:59 AM EDT TABLET 200 MG ORAL [facility] tiotropium 0.018 MG/ACTUAT Inhalant Powder Tiotropium [employer] Tiotropium [employer] 03/28/2020 10:02:59 AM EDT UNASSIGNED 1 CAP INHALATION active [facility] buspirone hydrochloride 10 MG Oral Tablet Buspirone Buspiron e 03/28/2020 10:02:59 AM EDT TABLET 10 MG ORAL [facility] Escitalopram 5 MG Oral Tablet Escitalopram Oxalate [facility] [place] Oxalate 03/28/2020 10:02:59 AM EDT TABLET 5 MG ORAL active [facility] Metoprolol Tartrate 50 MG Oral Tablet Metoprolol Tartrate 10:02:59 AM EDT TABLET 50 MG ORAL active [facility] Folic Acid 1 MG Oral Tablet Folic Acid 03/28/2020 10:02:59 AM EDT TAB LET 1 MG ORAL active [facility] Bisacodyl 10 MG Rectal Suppository Bisacodyl 03/28/2020 10 :02:59 AM EDT UNASSIGNED 10 MG [facility] D[facility] Sodium 100 MG Oral Capsule Docusate Sodium 03/28/2020 1 0:02:59 AM EDT CAPSULE 100 MG ORAL active [facility] Folic Acid 1 MG Oral Tablet Folic Acid 03/28/2020 10:02:59 AM EDT TAB LET 1 MG ORAL active [facility] Levetiracetam 500 MG Oral Tablet [Keppra] Levetiracetam 03/28/2020 10:02:59 AM EDT TABLET 500 MG [facility] Bisacodyl 10 MG Rectal Suppository Bisacodyl 03/28/2020 10 :02:59 AM EDT UNASSIGNED 10 MG RECTAL active [facility] Sorbitol 700 MG/ML Rectal Solution Sorbitol 03/28/2020 10:02:59 AM EDT SOLUTION 30 ML ORAL active [facility] Sumatriptan 50 MG Oral Tablet [Imitrex] Sumatriptan Lind ccinate Sumatriptan Succinate 03/28/2020 10:02:59 AM EDT TABLET 0 Route active [facility] Calcium Carbonate 1250 MG / Cholecalcife rol 0.01 MG Oral Tablet Calcium Carbonate-Vitamin D3 Calcium Carbonate-Vitamin D3 03/28/2020 10:02:59 AM EDT TABLET 1 TAB [facility] [id number] K 03/28/2020 10:02:59 AM EDT TABLET 1 TAB ORAL active [facility] sennosides, LONG-TERM 8.6 MG Oral Tablet Sennosides Sennosides 03/28/2020 10:02:59 AM EDT TABLET 17.2 MG ORAL active [facility] duloxetine 60 MG Delayed Release Oral Capsule Duloxetine Dul oxetine 03/28/2020 10:02:59 AM EDT UNASSIGNED 60 MG ORAL [facility] sennosides, LONG-TERM 8.6 MG Oral Tablet Sennosides Sennosides 03/28/2020 10:02:59 AM EDT TABLET 17.2 MG ORAL active [facility] gabapentin 100 MG Oral Capsule [Neurontin] Gabapentin Gabape ntin 03/28/2020 10:02:59 AM EDT CAPSULE 200 MG ORAL active [facility] Levetiracetam 500 MG Oral Tablet [Keppra] Levetiracetam 03/28/2020 10:02:59 AM EDT TABLET 500 MG ORAL active [facility] Trazodone Hydrochloride 50 MG Oral Tablet Trazodone 2019 10:02:59 AM EDT TABLET 50 MG ORAL active [facility] tiotropium 0.018 MG/ACTUAT Inhalant Powder Tiotropium [employer] Tiotropium [employer] 03/28/2020 10:02:59 AM EDT UNASSIGNED 1 CAP INHALATION [facility] Calcium Carbonate 1250 MG / Cholecalcife rol 0.01 MG Oral Tablet Calcium Carbonate-Vitamin D3 Calcium Carbonate-Vitamin D3 03/28/2020 10:02:59 AM EDT TABLET 1 TAB ORAL active [facility] Trazodone Hydrochloride 50 MG Oral Tablet Trazodone 2019 10:02:59 AM EDT TABLET 50 MG ORAL active [facility] Thiamine 100 MG Oral Tablet Thiamine Hcl (Vitamin B1) Thiami ne Hcl (Vitamin B1) 03/28/2020 10:02:59 AM EDT TABLET 100 MG [facility] Sorbitol 700 MG/ML Rectal Solution Sorbitol 03/28/2020 10:02:59 AM EDT SOLUTION 30 ML [facility] Methotrexate 7.5 MG Oral Tablet Methotrexate Sodium Methotre xate Sodium 03/28/2020 10:02:59 AM EDT TABLET 7.5 MG ORAL [facility] Metoprolol Tartrate 50 MG Oral Tablet Metoprolol Tartrate 10:02:59 AM EDT TABLET 50 MG ORAL active [facility] tiotropium 0.018 MG/ACTUAT Inhalant Powder Tiotropium [employer] Tiotropium [employer] 03/28/2020 10:02:59 AM EDT UNASSIGNED 1 CAP INHALATION [facility] buspirone hydrochloride 10 MG Oral Tablet Buspirone Buspiron e 03/28/2020 10:02:59 AM EDT TABLET 10 MG ORAL active [facility] Thiamine 100 MG Oral Tablet Thiamine Hcl (Vitamin B1) Thiami ne Hcl (Vitamin B1) 03/28/2020 10:02:59 AM EDT TABLET 100 MG ORAL active [facility] Thiamine 100 MG Oral Tablet Thiamine Hcl (Vitamin B1) Thiami ne Hcl (Vitamin B1) 03/28/2020 10:02:59 AM EDT TABLET 100 MG ORAL active [facility] Escitalopram 5 MG Oral Tablet Escitalopram Oxalate Escitalop [place] Oxalate 03/28/2020 10:02:59 AM EDT TABLET 5 MG ORAL active [facility] Folic Acid 1 MG Oral Tablet Folic Acid 03/28/2020 10:02:59 AM EDT TAB LET 1 MG ORAL active [facility] 120 ACTUAT Budesonide 0.16 MG/ACTUAT / f ormoterol fumarate 0.0045 MG/ACTUAT Metered Dose Inhaler Budesonide-Formoterol Budesonide-Formoterol 03/28/2020 10:02:59 AM EDT UNASSIGNED 2 PUFF INHALATION active [facility] Bikanxxogifm-[id number]-[id number]-Fa-Vit K 03/28/2020 10:02:59 AM EDT TABLET 1 TAB ORAL active [facility] Methotrexate 7.5 MG Oral Tablet Methotrexate Sodium Methotre xate Sodium 03/28/2020 10:02:59 AM EDT TABLET 7.5 MG ORAL active [facility] Escitalopram 5 MG Oral Tablet Escitalopram Oxalate [facility] [place] Oxalate 03/28/2020 10:02:59 AM EDT TABLET 5 MG ORAL active [facility] Levetiracetam 500 MG Oral Tablet [Keppra] Levetiracetam 03/28/2020 10:02:59 AM EDT TABLET 500 MG ORAL [facility] Hydroxychloroquine Sulfate 200 MG Oral Tablet Hydroxychloroq uine 03/28/2020 10:02:59 AM EDT TABLET 200 MG ORAL active [facility] Metoprolol Tartrate 50 MG Oral Tablet Metoprolol Tartrate 10:02:59 AM EDT TABLET 50 MG ORAL [facility] Thiamine 100 MG Oral Tablet Thiamine Hcl (Vitamin B1) Thiami ne Hcl (Vitamin B1) 03/28/2020 10:02:59 AM EDT TABLET 100 MG ORAL active [facility] Baclofen 5 MG Oral Tablet Baclofen 03/28/2020 10:01:16 AM EDT TABLET 5 MG ORAL active [facility] Baclofen 5 MG Oral Tablet Baclofen 03/28/2020 10:01:16 AM EDT TABLET 5 MG ORAL active [employer] Baclofen 5 MG Oral Tablet Baclofen 03/28/2020 10:01:16 AM EDT TABLET 5 MG ORAL active [facility] Baclofen 5 MG Oral Tablet Baclofen 03/28/2020 10:01:16 AM EDT TABLET 5 MG ORAL active [facility] Baclofen 5 MG Oral Tablet Baclofen 03/28/2020 10:01:16 AM EDT TABLET 5 MG ORAL active [employer] [employer] Albuterol Sulfate 03/28/2020 09:56:32 AM EDT UNASSIGNED 2 PUFF INHALATION active [employer] Albuterol Sulfate 03/28/2020 09:56:32 AM EDT UNASSIGNED 2 PUFF INHALATION active [employer] Albuterol Sulfate 03/28/2020 09:56:32 AM EDT UNASSIGNED 2 PUFF INHALATION active [employer] Albuterol Sulfate 03/28/2020 09:56:32 AM EDT UNASSIGNED 2 PUFF INHALATION active [employer] Albuterol Sulfate 03/28/2020 09:56:32 AM EDT UNASSIGNED 2 PUFF INHALATION active [employer] Acetaminophen 325 MG Oral Tablet Acetaminophen 03/28/2020 09:5 0:19 AM EDT TABLET 325 MG ORAL completed [facility] Acetaminophen 325 MG Oral Tablet Acetaminophen 03/28/2020 09:5 0:19 AM EDT TABLET 325 MG ORAL completed [employer] Acetaminophen 325 MG Oral Tablet Acetaminophen 03/28/2020 09:5 0:19 AM EDT TABLET 325 MG ORAL completed [employer] Acetaminophen 325 MG Oral Tablet Acetaminophen 03/28/2020 09:5 0:19 AM EDT TABLET 325 MG ORAL completed [employer] Acetaminophen 325 MG Oral Tablet Acetaminophen 03/28/2020 09:5 0:19 AM EDT TABLET 325 MG ORAL completed [employer] Acetaminophen 325 MG Oral Tablet [Tylenol] Acetaminophen 03/28/2020 09:42:28 AM EDT TABLET 650 MG ORAL active [facility] Acetaminophen 325 MG Oral Tablet [Tylenol] Acetaminophen 03/28/2020 09:42:28 AM EDT TABLET 650 MG ORAL active [facility] Acetaminophen 325 MG Oral Tablet [Tylenol] Acetaminophen 03/28/2020 09:42:28 AM EDT TABLET 650 MG ORAL active [facility] Acetaminophen 325 MG Oral Tablet [Tylenol] Acetaminophen 03/28/2020 09:42:28 AM EDT TABLET 650 MG ORAL active [facility] Acetaminophen 325 MG Oral Tablet [Tylenol] Acetaminophen 03/28/2020 09:42:28 AM EDT TABLET 650 MG ORAL active [facility] Methotrexate 2.5 MG Oral Tablet methotrexate 2.5 MG ta blet methotrexate 2.5 MG tablet 08/30/2019 12:00:00 AM EDT aborted TAKE THREE TABLETS BY MOUTH Every Thursday @8AM [facility] Pilocarpine Hydrochloride 5 MG Oral Tablet pilocarpine (SALAGEN) 5 MG tablet pilocarpine (SALAGEN) 5 MG tablet 08/30/2019 12:00:00 AM EDT aborted High risk medication use TAKE ONE TABLET BY MOUTH @8A M and TAKE ONE TABLET @12PM and TAKE ONE TABLET @8PM [facility] High risk medication use Methotrexate 2.5 MG Oral Tablet methotrexate 2.5 MG ta blet methotrexate 2.5 MG tablet 06/24/2019 12:00:00 AM EDT 7.5 mg Oral abort ed Other systemic lupus erythematosus with other organ involvementSjogren's syndrome with keratoconjunctivitis sicca Take 3 tablets by mouth every 7 ( seven) days [facility] Other systemic lupus erythematosus with other organ involvement Sjogren's syndrome with keratoconjunctiv itis sicca Folic Acid 1 MG Oral Tablet folic acid (FOLVITE) 1 MG tablet folic acid (FOLVITE) 1 MG tablet 06/24/2019 12:00:00 AM EDT aborted High risk medication use TAKE TWO TABLETS BY MOUTH @8AM [facility] High risk medication use gabapentin 400 MG Oral Capsule gabapentin (NEURONTIN) 400 MG capsule gabapentin (NEURONTIN) 400 MG capsule 06/24/2019 12:00:00 AM EDT 400 mg Oral aborted Take 1 capsule by mouth Three times [facility] Hydroxychloroquine Sulfate 200 MG Oral T ablet hydroxychloroquine (PLAQUENIL) 200 MG tablet hydroxychloroquine (PLAQUENIL) 200 MG tablet 12:00:00 AM EDT 200 mg Oral aborted Long-term use of PlaquenilOther systemic lupus erythematosus with other organ involvementSjogren's syndrome with keratoconjunctivitis sicca Take 1 tablet by mouth [facility] Long-term use of Plaquenil Other systemic lupus erythematosus with other organ involvement Sjogren's syndrome with keratoconjunctiv itis sicca buspirone hydrochloride 5 MG Oral Tablet buspirone 5 m g tablet buspirone 5 mg tablet completed buspirone hydro chloride 5 MG Oral Tablet RUBY ([facility]) Escitalopram 5 MG Oral Tablet escitalopram 5 mg tablet escit alopram 5 mg tablet completed escitalopram 5 MG Oral Tablet URBY ([facility]) buspirone hydrochloride 5 MG Oral Tablet buspirone 5 m g tablet buspirone 5 mg tablet completed buspirone hydro chloride 5 MG Oral Tablet RUBY ([facility]) Escitalopram 5 MG Oral Tablet escitalopram 5 mg tablet escit alopram 5 mg tablet completed escitalopram 5 MG Oral Tablet RUBY ([facility]) Trazodone Hydrochloride 50 MG Oral Tablet trazodone 50 mg tablet trazodone 50 mg tablet completed trazodone hydr ochloride 50 MG Oral Tablet RUBY ([facility]) Baclofen 5 MG Oral Tablet baclofen 5 mg tablet baclofen 5 mg tablet completed baclofen 5 MG Oral Tablet RUBY ([facility]) Budesonide 0.16 MG/ACTUAT / formoterol f umarate 0.0045 MG/ACTUAT Metered Dose Inhaler budesonide-formoterol HFA 160 mcg-4.5 mcg/actuation aerosol inhaler budesonide-formoterol HFA 160 mcg-4.5 mcg/actuation aerosol inhaler completed budesonide 0.16 MG/A CTUAT / formoterol fumarate 0.0045 MG/ACTUAT Metered Dose Inhaler RUBY ([facility]) umeclidinium 0.0625 MG/ACTUAT Dry Powder Inhaler [employer] Ellipta 62.5 mcg/actuation powder for inhalation Incruse Ellipta 62.5 mcg/actuation powde r for inhalation completed umeclidinium 0.0625 MG/ACTUAT Dry Powder Inhaler RUBY ([facility]) Naproxen 500 MG Oral Tablet naproxen (NAPROSYN) 500 MG tablet naproxen (NAPROSYN) 500 MG tablet 500 mg Oral aborted Take 500 mg by mouth Two times daily as needed [facility] pantoprazole 40 MG Delayed Release Oral Tablet pantoprazole 40 mg tablet,delayed release pantoprazole 40 mg tablet,delayed release completed pantoprazole 40 MG Delayed Release Oral Tablet GIRARD ([facility]) Baclofen 5 MG Oral Tablet baclofen 5 mg tablet baclofen 5 mg tablet completed baclofen 5 MG Oral Tablet GIRARD ([facility]) buspirone hydrochloride 10 MG Oral Tablet buspirone 10 mg tablet buspirone 10 mg tablet completed buspirone hydr ochloride 10 MG Oral Tablet GIRARD ([facility]) buspirone hydrochloride 15 MG Oral Tablet buspirone 15 mg tablet buspirone 15 mg tablet completed buspirone hydr ochloride 15 MG Oral Tablet GIRARD ([facility]) gabapentin 400 MG Oral Capsule gabapentin 400 mg capsu le gabapentin 400 mg capsule completed gabapentin 400 MG Oral Capsule [facility] ([facility]) Baclofen 5 MG Oral Tablet baclofen 5 mg tablet baclofen 5 mg tablet completed baclofen 5 MG Oral Tablet GIR[facility] ([facility]) gabapentin 300 MG Oral Capsule gabapentin 300 mg capsu le gabapentin 300 mg capsule completed gabapentin 300 MG Oral Capsule [facility]IR[facility] ([facility]) topiramate 25 MG Oral Tablet topiramate 25 mg tablet TAKE ONE TABLET BY MOUTH TWICE DAILY topiramate 25 mg tablet TAKE ONE TABLET BY MOUTH TWICE DAILY completed topiramate 25 MG Ora l Tablet GIRARD ([facility]) buspirone hydrochloride 15 MG Oral Tablet buspirone 15 mg tablet buspirone 15 mg tablet completed buspirone hydr ochloride 15 MG Oral Tablet GIRARD ([facility]) gabapentin 300 MG Oral Capsule gabapentin 300 mg capsu le gabapentin 300 mg capsule completed gabapentin 300 MG Oral Capsule GIR[facility] ([facility]) buspirone hydrochloride 10 MG Oral Tablet buspirone 10 mg tablet buspirone 10 mg tablet completed buspirone hydr ochloride 10 MG Oral Tablet [facility] ([facility]) gabapentin 400 MG Oral Capsule gabapentin 400 mg capsu le gabapentin 400 mg capsule completed gabapentin 400 MG Oral Capsule [facility] ([facility]) Baclofen 5 MG Oral Tablet baclofen 5 mg tablet baclofen 5 mg tablet completed baclofen 5 MG Oral Tablet [facility] ([facility]) Cyclobenzaprine hydrochloride 10 MG Oral Tablet cyclobenzaprine 10 mg tablet TAKE ONE TABLET BY MOUTH THREE TIMES DAILY NEEDED FOR MUSCLE SPASMS FOR UP TO 10 DAYS cyclobenzaprine 10 mg tablet TAKE ONE TA BLET BY MOUTH THREE TIMES DAILY NEEDED FOR MUSCLE SPASMS FOR UP TO 10 DAYS completed cyclobenzaprine hydrochloride 10 MG Oral Tablet [facility] ([facility]) Prednisone 5 MG Oral Tablet prednisone 5 mg tablet prednisone 5 mg ta blet completed prednisone 5 MG Oral Tablet [facility] ([facility]) umeclidinium 0.0625 MG/ACTUAT Dry Powder Inhaler Incruse Ellipta 62.5 mcg/actuation powder for inhalation Incruse Ellipta 62.5 mcg/actuation powde r for inhalation completed umeclidinium 0.0625 MG/ACTUAT Dry Powder Inhaler GIRARD ([facility]) duloxetine 60 MG Delayed Release Oral Ca psule duloxetine 60 mg capsule,delayed release duloxetine 60 mg capsule,delayed release completed duloxetine 60 MG Delayed Release Oral Capsule GIRARD ([facility]) buspirone hydrochloride 10 MG Oral Tablet buspirone 10 mg tablet buspirone 10 mg tablet completed buspirone hydr ochloride 10 MG Oral Tablet [facility] ([facility]) pantoprazole 40 MG Delayed Release Oral Tablet pantoprazole 40 mg tablet,delayed release pantoprazole 40 mg tablet,delayed release completed pantoprazole 40 MG Delayed Release Oral Tablet G[facility] ([facility]) tramadol hydrochloride 50 MG Oral Tablet tramadol 50 mg tablet Take 1 tablet by mouth every eight hours as needed for pain MDD 150 mg tramadol 50 mg tablet Take 1 tablet by mouth every eight hours as needed for pain MDD 150 mg completed tramadol hydrochloride 50 MG Ora l Tablet RUBY ([facility]) gabapentin 400 MG Oral Capsule gabapentin 400 mg capsu le gabapentin 400 mg capsule completed gabapentin 400 MG Oral Capsule GIRARD ([facility]) Trazodone Hydrochloride 50 MG Oral Tablet trazodone 50 mg tablet trazodone 50 mg tablet completed trazodone hydr ochloride 50 MG Oral Tablet GIRARD ([facility]) buspirone hydrochloride 10 MG Oral Tablet buspirone 10 mg tablet buspirone 10 mg tablet completed buspirone hydr ochloride 10 MG Oral Tablet RUBY ([facility]) Escitalopram 5 MG Oral Tablet escitalopram 5 mg tablet escit alopram 5 mg tablet completed escitalopram 5 MG Oral Tablet GIRARD ([facility]) Acetaminophen 325 MG / Hydrocodone Enrike trate 5 MG Oral Tablet hydrocodone 5 mg- acetaminophen 325 mg tablet hydrocodone 5 mg-acetaminophen 325 mg tablet completed acetaminophen 325 MG / hydrocodone bitartrate 5 MG Oral Tablet GIRARD ([facility]) Escitalopram 5 MG Oral Tablet escitalopram 5 mg tablet escit alopram 5 mg tablet completed escitalopram 5 MG Oral Tablet [facility] ([facility]) umeclidinium 0.0625 MG/ACTUAT Dry Powder Inhaler Incruse Ellipta 62.5 mcg/actuation powder for inhalation Incruse Ellipta 62.5 mcg/actuation powde r for inhalation completed umeclidinium 0.0625 MG/ACTUAT Dry Powder Inhaler [facility]) Baclofen 5 MG Oral Tablet baclofen 5 mg tablet baclofen 5 mg tablet completed baclofen 5 MG Oral Tablet GIRARD ([facility]) gabapentin 100 MG Oral Capsule gabapentin 100 mg capsu le gabapentin 100 mg capsule completed gabapentin 100 MG Oral Capsule [facility]) Alprazolam 0.25 MG Oral Tablet alprazolam 0.25 mg tabl et alprazolam 0.25 mg tablet completed alprazolam 0.25 MG Oral Tablet GIRARD ([facility]) duloxetine 60 MG Delayed Release Oral Ca psule duloxetine 60 mg capsule,delayed release duloxetine 60 mg capsule,delayed release completed duloxetine 60 MG Delayed Release Oral Capsule GIRARD ([facility]) Prednisone 5 MG Oral Tablet prednisone 5 mg tablet prednisone 5 mg ta blet completed prednisone 5 MG Oral Tablet [facility] ([facility]) Trazodone Hydrochloride 50 MG Oral Tablet trazodone 50 mg tablet trazodone 50 mg tablet completed trazodone hydr ochloride 50 MG Oral Tablet RUBY ([facility]) Ondansetron 4 MG Disintegrating Oral Tab let ondansetron 4 mg disintegrating tablet ondansetron 4 mg disintegrating tablet completed ondansetron 4 MG Disintegrating Oral Tablet RUBY ([facility]) pantoprazole 40 MG Delayed Release Oral Tablet pantoprazole 40 mg tablet,delayed release pantoprazole 40 mg tablet,delayed release completed pantoprazole 40 MG Delayed Release Oral Tablet RUBY ([facility]) gabapentin 100 MG Oral Capsule gabapentin 100 mg capsu le gabapentin 100 mg capsule completed gabapentin 100 MG Oral Capsule RUBY ([facility]) buspirone hydrochloride 5 MG Oral Tablet buspirone 5 m g tablet buspirone 5 mg tablet completed buspirone hydro chloride 5 MG Oral Tablet RUBY ([facility]) duloxetine 60 MG Delayed Release Oral Ca psule duloxetine (CYMBALTA) 60 MG capsule duloxetine (CYMBALTA) 60 MG capsule 120 mg Oral aborted Take 120 mg by mouth nightly. [facility] Sumatriptan 25 MG Oral Tablet sumatriptan 25 mg tablet sumat riptan 25 mg tablet completed sumatriptan 25 MG Oral Tablet RUBY ([facility]) duloxetine 60 MG Delayed Release Oral Ca psule duloxetine 60 mg capsule,delayed release duloxetine 60 mg capsule,delayed release completed duloxetine 60 MG Delayed Release Oral Capsule RUBY ([facility]) duloxetine 30 MG Delayed Release Oral Ca psule duloxetine 30 mg capsule,delayed release duloxetine 30 mg capsule,delayed release completed duloxetine 30 MG Delayed Release Oral Capsule RUBY ([facility]) gabapentin 100 MG Oral Capsule gabapentin 100 mg capsu le gabapentin 100 mg capsule completed gabapentin 100 MG Oral Capsule RUBY ([facility]) Trazodone Hydrochloride 50 MG Oral Tablet trazodone 50 mg tablet trazodone 50 mg tablet completed trazodone hydr ochloride 50 MG Oral Tablet RUBY ([facility]) gabapentin 300 MG Oral Capsule gabapentin 300 mg capsu le gabapentin 300 mg capsule completed gabapentin 300 MG Oral Capsule RUBY ([facility]) Trazodone Hydrochloride 50 MG Oral Tablet trazodone 50 mg tablet trazodone 50 mg tablet completed trazodone hydr ochloride 50 MG Oral Tablet GIRARD ([facility]) Prednisone 5 MG Oral Tablet prednisone 5 mg tablet prednisone 5 mg ta blet completed prednisone 5 MG Oral Tablet GIRARD ([facility]) Escitalopram 5 MG Oral Tablet escitalopram 5 mg tablet escit alopram 5 mg tablet completed escitalopram 5 MG Oral Tablet GIRARD ([facility]) buspirone hydrochloride 15 MG Oral Tablet buspirone 15 mg tablet buspirone 15 mg tablet completed buspirone hydr ochloride 15 MG Oral Tablet GIRARD ([facility]) buspirone hydrochloride 10 MG Oral Tablet buspirone 10 mg tablet buspirone 10 mg tablet completed buspirone hydr ochloride 10 MG Oral Tablet GIRARD ([facility]) buspirone hydrochloride 5 MG Oral Tablet buspirone 5 m g tablet buspirone 5 mg tablet completed buspirone hydro chloride 5 MG Oral Tablet GIRARD ([facility]) gabapentin 100 MG Oral Capsule gabapentin 100 mg capsu le gabapentin 100 mg capsule completed gabapentin 100 MG Oral Capsule GIRARD ([facility]) Sumatriptan 50 MG Oral Tablet sumatriptan 50 mg tablet sumat riptan 50 mg tablet completed sumatriptan 50 MG Oral Tablet GIRARD ([facility]) gabapentin 600 MG Oral Tablet gabapentin 600 mg tablet gabap entin 600 mg tablet completed gabapentin 600 MG Oral Tablet [facility]) tiotropium 0.018 MG/ACTUAT Inhalant Powd er [Spiriva] Spiriva with HandiHaler 18 mcg and inhalation capsules Spiriva with HandiHaler 18 mcg and inhal ation capsules completed tiotr opium 0.018 MG Inhalation Powder [Spiriva] GIRARD ([facility]) gabapentin 400 MG Oral Capsule gabapentin 400 mg capsu le gabapentin 400 mg capsule completed gabapentin 400 MG Oral Capsule GIRARD ([facility]) gabapentin 300 MG Oral Capsule gabapentin 300 mg capsu le gabapentin 300 mg capsule completed gabapentin 300 MG Oral Capsule GIRARD ([facility]) pantoprazole 40 MG Delayed Release Oral Tablet pantoprazole 40 mg tablet,delayed release pantoprazole 40 mg tablet,delayed release completed pantoprazole 40 MG Delayed Release Oral Tablet [facility]) gabapentin 300 MG Oral Capsule gabapentin 300 mg capsu le gabapentin 300 mg capsule completed gabapentin 300 MG Oral Capsule RUBY ([facility]) buspirone hydrochloride 5 MG Oral Tablet buspirone 5 m g tablet buspirone 5 mg tablet completed buspirone hydro chloride 5 MG Oral Tablet RUBY ([facility]) duloxetine 60 MG Delayed Release Oral Ca psule duloxetine 60 mg capsule,delayed release duloxetine 60 mg capsule,delayed release completed duloxetine 60 MG Delayed Release Oral Capsule RUBY ([facility]) Insurance Providers Payer name Policy type / Coverage type Policy ID Covered libertarian ID Covered libertarian's relationship to baer Policy Baer Plan Information EMEDNY [id number] SP [id number] MEDICARE [id number] SP [id number] D95 MEDICARE A [id number] Self [id number] [id number] MEDICAID [id number] Self [id number] PERSONAL PAY [id number] SELF [id number] [employer] [facility] [id number] SELF [id number] MEDICARE [id number] SELF [id number] D95 SELF PAY MEDICAID [facility] [id number] SP [id number] MEDICARE [id number] SP [id number] D95 MEDICAID [place] [id number] MEDICARE Medicare [id number] [place] [id number] Self [id number] MEDICARE Med [id number] Self [id number] D95 SELF PAY MEDICAID [facility] [id number] SP [id number] MEDICARE [id number] SP [id number] D95 SELF PAY MEDICAID [facility] [id number] SP [id number] MEDICARE [id number] SP [id number] D95 SELF PAY MEDICAID [facility] [id number] SP [id number] MEDICARE [id number] SP [id number] D95 SELF PAY MEDICAID [facility] [id number] SP BG [id number] MEDICARE [id number] SP [id number] D95 SELF PAY MEDICAID [facility] [id number] SP BG [id number] MEDICARE [id number] SP [id number] D95 SELF PAY MEDICAID [facility] [id number] SP BG [id number] MEDICARE [id number] SP [id number] D95 SELF PAY MEDICAID [facility] [id number] SP BG [id number] MEDICARE [id number] SP [id number] D95 SELF PAY MEDICAID [facility] [id number] SP [id number] MEDICARE [id number] SP [id number] D95 SELF PAY MEDICARE [id number] SP [id number] D95 MEDICAID [facility] [id number] SP BG [id number] SELF PAY SELF PAY SELF PAY MEDICAID [facility] [id number] SP BG [id number] MEDICARE [id number] SP [id number] D95 MEDICAID [facility] [id number] SP [id number] MEDICARE [id number] SP [id number] D95 MEDICAID [facility] [id number] SP BG [id number] MEDICARE [id number] SP [id number] D95 "" PRV None Medicaid CHELLE [id number] None [id number] Medicare MDA [id number] Self [id number] D95 Medicare MDB None Medicaid S [id number] S [id number] Medicare P [id number] S [id number] D95 SELF PAY MEDICAID [facility] [id number] SP BG [id number] MEDICARE [id number] SP [id number] D95 SELF PAY SELF PAY MEDICAID [facility] [id number] SP BG [id number] MEDICARE [id number] SP [id number] D95 SELF PAY MEDICAID [facility] [id number] SP BG [id number] MEDICARE [id number] SP [id number] D95 MEDICAID [facility] [id number] SP BG [id number] MEDICARE [id number] SP [id number] D95 SELF PAY MEDICAID [facility] [id number] SP BG [id number] MEDICARE [id number] SP [id number] D95 MCRB [id number] S [id number] D95 MEDICARE [id number] S [id number] D95 MEDICAID PROF FEES [id number] MEDICAID [id number] S [id number] MEDICAID [facility] /[employer] RADHA. 2 [id number] MEDICARE [facility] ([facility]) - [id number] 1 [id number] 1 [id number] SELF PAY SELF PAY MEDICAID [id number] S [id number] [facility] [id number] S [id number] [place]IC[place] [id number] S [id number] SELF PAY MEDICARE [id number] Sandra [id number] D95 MEDICAID [id number] Sandra [id number] SELF PAY MEDICAID [facility] [id number] SP BG [id number] MEDICARE [id number] SP [id number] D95 MEDICAID [id number] MEDICARE [id number] MEDICAID [id number] SP [id number] MEDICARE C [id number] S [id number] D95 MEDICAID M [id number] S [id number] [facility] PART B C [id number] S [id number] MCRB [id number] S [id number] 095 MEDICARE [id number] S [id number] MEDICAID [id number] S [id number] BCBS EXCELLUS [id number] SPO DCI [id number] MEDICAID [id number] S [id number] MEDICAID [id number] S [id number] [facility] [facility] [id number] S [id number] [place]IC[place] [id number] S [id number] DME Jurisdiction A NHIC C [id number] SELF [id number] Medicare C [id number] SELF [id number] D95 DME Jurisdiction A NHIC C [id number] SELF [id number] Medicare C [id number] SELF [id number] D95 Medicaid [facility] Healthcare S D [id number] SELF [id number] MEDICARE A [id number] Self [id number] ANSI-Medicaid [id number] ANSI-Medicare Part B [id number] ANSI-Medicaid [id number] ANSI-Medicare Part B [id number] ANSI-Medicare Part B [id number] ANSI-Medicaid [id number] MEDICAID [id number] SP [id number] MEDICARE [id number] SP [id number] D95 ANSI-Medicaid [id number] ANSI-Medicare Part B [id number] ANSI-Medicaid [id number] ANSI-Medicare Part B [id number] ANSI-Medicaid [id number] ANSI-Medicare Part B [id number] ANSI-Medicare Part B [id number] ANSI-Medicaid [id number] ANSI-Medicaid [id number] ANSI-Medicare Part B [id number] ANSI-Medicare Part B [id number] ANSI-Medicaid [id number] ANSI-Medicare Part B [id number] ANSI-Medicaid [id number] ANSI-Medicaid [id number] ANSI-Medicare Part B [id number] ANSI-Medicaid [id number] ANSI-Medicare Part B [id number] MEDICAID [id number] S [id number] MEDICAID PI PI MEDICARE PI PI MEDICARE [id number] Sandra [id number] Medicaid [place] Medig[place] Part B [id number] Self [id number] [place] Medicare Primary [id number] Self [id number] MEDICAID [id number] SP [id number] [facility] [id number] S [id number] [place] [id number] S [id number] [place] [facility] [id number] S [id number] [place]IC[place] [id number] S [id number] MEDICAID [id number] SP [id number] MEDICARE [id number] SP [id number] Medicaid S [id number] S [id number] ASSIGNED MEDICARE (81) [id number] 1 [id number] MEDICAID (101) [id number] Medicaid [facility] Part B [id number] Self [id number] [place] Medicare Primary [id number] Self [id number] MEDICARE [id number] SP [id number] MEDICAID [id number] S [id number] MEDICARE C [id number] S [id number] A Medicare S [id number] S [id number] A Medicare P [id number] S [id number] MEDICAID -O/P [id number] MEDICARE PART A -O/P [id number] 18 [id number] [place] MEDICARE PART B C [id number] S [id number] [facility] MEDICAID [id number] SP [id number] S MEDICARE B [place] [id number] SP [id number] MEDICARE/NATIONAL GOVT [facility]CS [id number] SP [id number] [facility] MEDICAID [id number] SP [id number] MEDICARE B [place] [id number] SP [id number] MEDICARE/NATIONAL GOVT [place] [id number] SP [id number] MEDICAID [id number] SP [id number] Medicare Part B [facility] [id number] MEDICAID UTAH [id number] BG [id number] MEDICAID - CLINIC [id number] BG [id number] MEDICARE PART A-CLINIC [id number] 18 [id number] SELF PAY UNAVAILABLE UNAVAILA BLE Medicare C [id number] SELF [id number] MEDICARE [id number] S [id number] A MCRB [id number] S [id number] A BLUE CROSS BLUE SHIELD-CLINIC [id number] SELF PAY SP UNAVAILABLE S UNAVAILA BLE BC BLUE CARD 1 [id number] MEDICAID W [id number] S [id number] MEDICARE OUTPATIENT M [id number] S [id number] SELF PAY 2 UNAVAILABLE 1 [place] B[place] 3 [id number] S [employer] 010/[id number] [facility]MEDICAID [id number] Medicare Part B [facility] [id number] 0 [id number] [place] BC [id number] DCI [id number] MEDICAID S UNAVAILABLE P UNAVAILA BLE BC BS AL O [id number] 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 12 [id number] [place] O [id number] U [id number] MEDICARE PART A-CLINIC [id number] Problems, Conditions, and Diagnoses Code Display Name Description Problem Type Effective Dates Data Source(s) F17.200 Nicotine dependence, unspecified, uncomp licated Tobacco Use Disorder, Moderate Condition 01/02/2021 12:00:00 AM EST [facility] ([facility]) F32.9 Major depressive disorder, single episod e, unspecified Unspecified depressive Disorder Condition 01/02/2021 12:00:00 AM EST [facility] ([facility]) 605629476 Drug seeking behavior Drug Seeking Behavior Problem 12/17/2020 12:00:00 AM EST RUBY ([facility]) 80282822 Drug overdose Drug Overdose Problem 12/17/2020 12:00:00 AM EST RUBY ([facility]) 53137064 Oropharyngeal dysphagia Oropharyngeal Dysphagia Proble m 12/17/2020 12:00:00 AM EST RUBY ([facility]) 39920223 Borderline personality disorder Borderline Perso nality Disorder Problem 12/17/2020 12:00:00 AM EST RUBY ([facility]) 03910828 Wernicke's disease Wernicke's Disease Problem 11/2020 12:00:00 AM EST RUBY ([facility]) 33100281 Hypothyroidism Hypothyroidism Problem 12/17/2020 12:00: 00 AM EST RUBY ([facility]) 017810658 Drug seeking behavior Drug Seeking Behavior Problem 12/17/2020 12:00:00 AM EST RUBY ([facility]) 08779008 Drug overdose Drug Overdose Problem 12/17/2020 12:00:00 AM EST RUBY ([facility]) 67584257 Oropharyngeal dysphagia Oropharyngeal Dysphagia Proble 12/17/2020 12:00:00 AM EST RUBY ([facility]) 50738547 Borderline personality disorder Borderline Perso nality Disorder Problem 12/17/2020 12:00:00 AM EST RUBY ([facility]) 57920164 Wernicke's disease Wernicke's Disease Problem 11/2020 12:00:00 AM EST RUBY ([facility]) 86066347 Hypothyroidism Hypothyroidism Problem 12/17/2020 12:00: 00 AM EST RUBY ([facility]) 745907047 Steatosis of liver Steatosis of Liver Problem 12:00:00 AM EST RUBY ([facility]) 80386688 Essential hypertension Essential Hypertension Problem 12/14/2020 12:00:00 AM EST RUBY ([facility]) 618510196 Steatosis of liver Steatosis of Liver Problem 12:00:00 AM EST RUBY ([facility]) 04930654 Essential hypertension Essential Hypertension Problem 12/14/2020 12:00:00 AM EST RUBY ([facility]) 936833686 Mixed anxiety and depressive disorder Mi xed Anxiety and Depressive Disorder Problem 12/04/2020 12:00:00 AM EST RUBY ([facility]) 397679785 Mixed anxiety and depressive disorder Mi xed Anxiety and Depressive Disorder Problem 12/04/2020 12:00:00 AM EST RUBY ([facility]) 741330129 Mixed anxiety and depressive disorder Mi xed Anxiety and Depressive Disorder Problem 12/04/2020 12:00:00 AM EST RUBY ([facility]) 044460408 Retention of urine Retention of urine Problem 11/2019 12:00:00 AM EDT [facility] ([facility]) 04590488 Acute cystitis Acute cystitis Problem 04/16/2020 12:00: 00 AM EDT [facility] ([facility]) 10323867 Eating disorder Eating Disorder Problem 9 12:00:00 AM EDT - 12/14/2020 12:00:00 AM EST RUBY ([facility]) 61557002 Nausea and vomiting Nausea and Vomiting Problem 1 12:00:00 AM EDT - 12/14/2020 12:00:00 AM EST RUBY ([facility]) 898976103 Abnormal weight loss Abnormal Weight Loss Problem 08/26/2019 12:00:00 AM EDT - 12/14/2020 12:00:00 AM EST RUBY ([facility]) 07399191 Eating disorder Eating Disorder Problem 9 12:00:00 AM EDT - 12/14/2020 12:00:00 AM EST RUBY ([facility]) 52952269 Nausea and vomiting Nausea and Vomiting Problem 1 12:00:00 AM EDT - 12/14/2020 12:00:00 AM EST RUBY ([facility]) 635148024 Abnormal weight loss Abnormal Weight Loss Problem 08/26/2019 12:00:00 AM EDT - 12/14/2020 12:00:00 AM SHAUN BELTRAN ([facility]) 508005192 Emotional state finding Emotional State Finding Proble m 07/06/2019 12:00:00 AM EDT - 12/14/2020 12:00:00 AM SHAUN BELTRAN ([facility]) 362922077 Emotional state finding Emotional State Finding Proble m 07/06/2019 12:00:00 AM EDT - 12/14/2020 12:00:00 AM EST RUBY ([facility]) 034664730 Lower urinary tract finding Lower Urinary Tract Findin g Problem 05/26/2019 12:00:00 AM EDT - 12/14/2020 12:00:00 AM SHAUN BELTRAN ([facility]) 672046451 Lower urinary tract finding Lower Urinary Tract Findin g Problem 05/26/2019 12:00:00 AM EDT - 12/14/2020 12:00:00 AM SHAUN BELTRAN ([facility]) 185623001 Breast neoplasm screening status Breast Neoplasm Screening Status Problem 03/30/2019 12:00:00 AM EDT - 12/14/2020 12:00:00 AM CASA BELTRAN ([facility]) 389945958 Breast neoplasm screening status Breast Neoplasm Screening Status Problem 03/30/2019 12:00:00 AM EDT - 12/14/2020 12:00:00 AM CASA BELTRAN ([facility]) 337281825 Clinical finding Clinical Finding Problem 019 12:00:00 AM EDT - 12/14/2020 12:00:00 AM SHAUN BELTRAN ([facility]) 870658858 Clinical finding Clinical Finding Problem 019 12:00:00 AM EDT - 12/14/2020 12:00:00 AM EST RUBY ([facility]) 46289582 Pain Pain Problem 02/02/2019 12:0 0:00 AM EDT - 12/14/2020 12:00:00 AM EST RUBY ([facility]) 25316515 Pain Pain Problem 02/02/2019 12:0 0:00 AM EDT - 12/14/2020 12:00:00 AM SHAUN BELTRAN ([facility]) 47790757 Hypersomnia Hypersomnia Problem 09/17/2018 12:0 0:00 AM EDT - 12/14/2020 12:00:00 AM SHAUN BELTRAN ([facility]) 49214851 Hypersomnia Hypersomnia Problem 09/17/2018 12:0 0:00 AM EDT - 12/14/2020 12:00:00 AM SHAUN BELTRAN ([facility]) 50571713 Disorder of skin Disorder of Skin Problem 018 12:00:00 AM EDT - 12/14/2020 12:00:00 AM SHAUN BELTRAN ([facility]) 887195115 Tobacco use and exposure - finding Tobacco Use a nd Exposure - Finding Problem 09/13/2018 12:00:00 AM EDT - 12/14/2020 12:00:00 AM CASA BELTRAN ([facility]) 09149708 Disorder of skin Disorder of Skin Problem 018 12:00:00 AM EDT - 12/14/2020 12:00:00 AM SHANU BELTRAN ([facility]) 128241390 Tobacco use and exposure - finding Tobacco Use a nd Exposure - Finding Problem 09/13/2018 12:00:00 AM EDT - 12/14/2020 12:00:00 AM CASA BELTRAN ([facility]) 287870397 Finding of defecation Finding of Defecation Problem 08/02/2018 12:00:00 AM EDT - 12/14/2020 12:00:00 AM SHAUN BELTRAN ([facility]) 716262552 Finding of defecation Finding of Defecation Problem 08/02/2018 12:00:00 AM EDT - 12/14/2020 12:00:00 AM SHAUN RUBY ([facility]) 824800048 Polyalgia Polyalgia Problem 05/18/2018 12:0 0:00 AM EDT - 12/14/2020 12:00:00 AM SHAUN BELTRAN ([facility]) 025463559 Polyalgia Polyalgia Problem 05/18/2018 12:0 0:00 AM EDT - 12/14/2020 12:00:00 AM EST RUBY ([facility]) 766006514 Foreign body Foreign Body Problem 05/10/2018 12:0 0:00 AM EDT - 12/14/2020 12:00:00 AM EST RUBY ([facility]) 753389780 Foreign body Foreign Body Problem 05/10/2018 12:0 0:00 AM EDT - 12/14/2020 12:00:00 AM SHAUN BELTRAN ([facility]) 092376126 Finding related to sleep Finding Related to Sleep Prob nicolle 04/27/2018 12:00:00 AM EDT - 12/14/2020 12:00:00 AM EST RUBY ([facility]) 829502650 Finding related to sleep Finding Related to Sleep Prob nicolle 04/27/2018 12:00:00 AM EDT - 12/14/2020 12:00:00 AM SHAUN BELTRAN ([facility]) 29963711 Hypertensive disorder Hypertensive Disorder Problem 04/19/2018 12:00:00 AM EDT - 12/14/2020 12:00:00 AM EST RUBY ([facility]) 48451991 Hypertensive disorder Hypertensive Disorder Problem 04/19/2018 12:00:00 AM EDT - 12/14/2020 12:00:00 AM SHAUN BELTRAN ([facility]) 04287103 Mental disorder Mental Disorder Problem 8 12:00:00 AM EDT - 12/14/2020 12:00:00 AM SHAUN BELTRAN ([facility]) 475671715 Overweight Overweight Problem 04/13/2018 12:0 0:00 AM EDT - 12/14/2020 12:00:00 AM EST RUBY ([facility]) 59194093 Mental disorder Mental Disorder Problem 8 12:00:00 AM EDT - 12/14/2020 12:00:00 AM EST RUBY ([facility]) 534504576 Overweight Overweight Problem 04/13/2018 12:0 0:00 AM EDT - 12/14/2020 12:00:00 AM SHAUN BELTRAN ([facility]) E55.9 Vitamin D deficiency, unspecified Vitamin D defi ciency, unspecified Diagnosis 01/01/2021 07:54:19 AM [facility] F17.210 Nicotine dependence, cigarettes, uncompl icated Nicotine dependence, cigarettes, uncomplicated Diagnosis 12/03/2020 02:23:00 PM [facility] H54.62 Unqualified visual loss, left eye, abdoulaye l vision right eye Unqualified visual loss, left eye, normal vision right eye Diagnosis 021 02:23:00 PM [facility] G43.909 Migraine, unspecified, not intractable, without status migrainosus Migraine, unspecified, not intractable, without status migrainosus Diagnosis 12/03/2020 02:23:00 PM [facility] RO stroke RO stroke Diagnosis 12/03/2020 02:23:00 PM [facility] R51.9 HEADACHE UNSPECIFIED HEADACHE, UNSPECIFIED Diagnosis 11/23/2020 01:14:00 PM [facility] G43.909 Migraine, unspecified, not intractable, without status migrainosus MIGRAINE, UNSPECIFIED, NOT INTRACTABLE, WITHOUT STATUS MIGRAINOSUS Diagnosis 11/23/2020 01:14:00 PM [facility] F32.9 Major depressive disorder, single episod e, unspecified MAJOR DEPRESSIVE DISORDER, SINGLE EPISODE, UNSPECIFIED Diagnosis 11/23/2020 01:14:00 PM [facility] Z11.59 Encounter for screening for other viral diseases Z11.59 - Encounter for screening for other viral diseases Diagnosis 10/16/2020 08:25:[address] [facility] [employer] U07.1 U07.1 - COVID-19 U07.1 - COVID-19 Diagnosis 10/05/2020 10 :44[facility] Z20.828 Contact with and (suspected) exposure to other viral communicable diseases Z20.828 - Contact with and (suspected) e xposure to other viral communicable diseases Diagnosis 09/21/2020 02:36[facility] Z[facility].84 Encounter for antibody response examinat ion Z01.84 - Encounter for antibody response examination Diagnosis 09/10/2020 11:25:00 AM EDT [facility] [employer] R94.6 Abnormal results of thyroid function kristan dies R94.6 - Abnormal results of thyroid function studies Diagnosis 08/15/2020 07:00:00 [facility] M25.50 Pain in unspecified joint Pain in unspecified joint Di agnosis 07/26/2020 09:28:45 AM EDT [facility] G89.29 Other chronic pain Other chronic pain Diagnosis 08/2020 09:28:45 AM [facility] M79.10 M79.10 - Myalgia, unspecified site M79.10 - Myal devon, unspecified site Diagnosis 06/20/2020 07:50:00 PM EDT [employer] D64.9 Anemia, unspecified D64.9 - Anemia, unspecified Diagno sis 06/18/2020 10:52:[address] [facility] M32.10 Systemic lupus erythematosus, organ or s ystem involvement unspecified M32.10 - Systemic lupus erythematosus, organ or system involvement unspecified Diagnosis 06/07/2020 09:10:[address] [facility] G93.1 Anoxic brain damage, not elsewhere class ified G93.1 - Anoxic brain damage, not elsewhere classified Diagnosis 06/07/2020 09:10:[address] 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 H53.149 Visual discomfort, unspecified H53.149 - Visual discomfort, unspecified Diagnosis 05/09/2020 02:21:[address] [facility] R11.0 Nausea R11.0 - Nausea Diagnosis 05/09/2020 02:21:00 A M EDT [facility] R51 Headache R51 - Headache Diagnosis 05/09/2020 02:21:00 A M EDT [facility] N30.00 Acute cystitis without hematuria N30.00 - Acute cystitis without hematuria Diagnosis 04/16/2020 11:00:[address] [facility] R41.81 Age-related cognitive decline R41.81 - Age-relat ed cognitive decline Diagnosis 04/05/2020 07:40:[address] [facility] F41.9 Anxiety disorder, unspecified ANXIETY DISORDER, UNSPEC IFIED Diagnosis 04/02/2020 12:00:00 AM EDT [facility] ([facility] ) N39.0 Urinary tract infection, site not specif ied URINARY TRACT INFECTION, SITE NOT SPECIFIED Diagnosis 04/02/2020 12:00:00 AM EDT [facility] ([facility]) N30.90 Cystitis, unspecified without hematuria CYSTITIS, UNSPECIFIED WITHOUT HEMATURIA Diagnosis 04/02/2020 12:00:00 AM EDT [facility] ([facility]) M35.00 Sicca syndrome, unspecified SICCA SYNDROME, UNSPECIFIE D Diagnosis 04/02/2020 12:00:00 AM EDT [facility] ([facility] ) T50.905A Adverse effect of unspecifie d drugs, medicaments and biological substances, initial encounter T50.905A - Adverse effect of unspecified drugs, medicaments and biological substances, initial encounter Diagnosis 03/28/2020 02:08:[address] [facility] K58.0 Irritable bowel syndrome with diarrhea K 58.0 - Irritable bowel syndrome with diarrhea Diagnosis 03/28/2020 02:08:[address] [facility] R00.1 Bradycardia, unspecified R00.1 - Bradycardia, unspecif ied Diagnosis 03/28/2020 02:08:00 PM EDT [facility] E51.2 Wernicke's encephalopathy E51.2 - Wernicke's encephalo jonny Diagnosis 03/28/2020 02:08:00 PM EDT [facility] J45.909 Unspecified asthma, uncomplicated J45.90 9 - Unspecified asthma, uncomplicated Diagnosis 03/28/2020 02:08:00 PM EDT [facility] R63.0 Anorexia R63.0 - Anorexia Diagnosis 03/28/2020 02:08:00 PM EDT [facility] R06.02 Shortness of breath R06.02 - Shortness of breath Diagn osis 03/28/2020 02:08:00 PM EDT [facility] K58.9 Irritable bowel syndrome without diarrhe a K58.9 - Irritable bowel syndrome without diarrhea Diagnosis 03/28/2020 02:08:00 PM EDT [facility] N13.9 Obstructive and reflux uropathy, unspeci fied N13.9 - Obstructive and reflux uropathy, unspecified Diagnosis 03/28/2020 02:08:00 PM EDT [facility] R26.89 Other abnormalities of gait and mobility R26.89 - Other abnormalities of gait and mobility Diagnosis 03/28/2020 02:08:00 PM EDT [facility] M62.81 Muscle weakness (generalized) M62.81 - Muscle we akness (generalized) Diagnosis 03/28/2020 02:08:00 PM EDT [facility] M79.7 Fibromyalgia M79.7 - Fibromyalgia Diagnosis 03/28/2020 02 :08:00 PM EDT [facility] Z96.0 Presence of urogenital implants Z96.0 - Presence of urogenital implants Diagnosis 03/28/2020 02:08:00 PM EDT [facility] Z98.84 Bariatric surgery status Z98.84 - Bariatric surgery st atus Diagnosis 03/28/2020 02:08:00 PM EDT [facility] N13.9 Obstructive and reflux uropathy, unspeci fied OBSTRUCTIVE AND REFLUX UROPATHY, UNSPECIFIED Diagnosis 01/12/2020 12:00:00 AM EST [facility] ([facility]) R26.89 Other abnormalities of gait and mobility OTHER ABNORMALITIES OF GAIT AND MOBILITY Diagnosis 12/05/2019 12:00:00 AM EST [facility] ([facility]) Surgeries/Procedures Procedure Description Date Indications Data Source(s) Psychiatric Diagnostic Evaluation (Non-Medical) 01/02/2021 12:00:00 AM EST - 01/02/2021 12:00:00 AM EST [facility] ([facility]) Psychiatric Diagnostic Evaluation (Non-Medical) 2020 12:00:00 AM EST [facility] ([facility]) Extended Individual Psychotherapy - 45 min 12/21/2020 12:00:00 AM EST - 12/21/2020 12:00:00 AM EST [facility] ([facility]) Extended Individual Psychotherapy - 45 min 12:00:00 AM EST [facility] ([facility]) URNLS DIP STICK/TABLET REAGENT AUTO MICROSCOPY URINALYSIS W ITH MICROSCOPIC STAT 12/03/2020 6:19 PM EST 12/03/2020 06:19:00 PM [facility] EKG ED PHYSICIAN INTERPRETATION EKG ED PHYSICIAN INTERPRETATION Routine 12/03/2020 3:51 PM EST 12/03/2020 03:51:[address] [facility] [address] ANGIOGRAPHY NECK W/CONTRAST/NONCONTRAST CT ANGIOGRAPHY NECK [id number] STAT 12/03/2020 3:44 PM EST 12/03/2020 03:44:[address] [facility] [address] ANGIOGRAPHY HEAD W/CONTRAST/NONCONTRAST CT ANGIOGRAPHY HEAD [id number] STAT 12/03/2020 3:44 PM EST 12/03/2020 03:44:03 PM [facility] POCT ISTAT BHCG POCT ISTAT BHCG Routine 12/03/2020 3:05 PM EST 12/03/2020 03:05:00 PM [facility] BASIC METABOLIC PANEL CALCIUM TOTAL POCT ISTAT CHEM8 Routine 12/03/2020 3:01 PM EST 12/03/2020 03:01:00 PM [facility] POCT ISTAT VBG/LAC POCT ISTAT VBG/LAC Routine 12/03/2020 2:[address] 12/03/2020 02:55:00 PM [facility] SEDIMENTATION RATE RBC AUTOMATED SEDIMENTATION RATE, AUTOMATED Routine 12/03/2020 2:53 PM EST 12/03/2020 02:53:00 PM [facility] PROTHROMBIN TIME PROTIME INR STAT 12/03/2020 2:53 PM EST 12/03/2020 02:53:00 PM [facility] BLOOD COUNT COMPLETE AUTO&AUTO DIFRNTL WBC COUNT CBC AND DIFFER ENTIAL Routine 12/03/2020 2:53 PM EST 12/03/2020 02:53:00 PM [facility] BASIC METABOLIC PANEL CALCIUM TOTAL BASIC METABOLIC PANEL STAT 12/03/2020 2:53 PM EST 12/03/2020 02:53:00 PM [facility] EKG 12 LEAD (UNSOLICITED COMPUTER ORDER) EKG 12 LEAD (UNSOLICITED COMPUTER ORDER) Routine 12/03/2020 2:41 PM EST 12/03/2020 02:41 :42 PM [facility] EKG 12-LEAD - CMAXX REPORT EKG 12-LEAD - CMAXX REPORT 12/03/2020 2:41 PM EST 12/03/2020 02:41:42 PM [facility] CT HEAD/BRAIN W/O CONTRAST MATERIAL CT HEAD WITHOUT CONTRAST 70 450 CODE 12/03/2020 2:30 PM EST 12/03/2020 02:30:42 PM [facility] CBC AND DIFFERENTIAL CBC AND DIFFERENTIAL Routine 10/24/2020 9:40 AM EST 10/24/2020 09:40:00 AM [facility] THYROID STIMULATING HORMONE TSH TSH Routine 10/24/2020 9:40 AM EST 10/24/2020 09:40:00 AM [facility] FOLIC ACID SERUM FOLATE Routine 10/24/2020 9:40 AM EST 10/24/2020 09:40:00 AM [facility] CYANOCOBALAMIN VITAMIN B-12 VITAMIN B12 Routine 10/24/2020 9:40 AM EST 10/24/2020 09:40:00 AM [facility] COMPREHENSIVE METABOLIC PANEL COMPREHENSIVE METABOLIC PANEL Rou ruthann 10/24/2020 9:40 AM EST 10/24/2020 09:40:00 AM [facility] Urine culture (procedure) 04/16/2020 12:00:[address] [facility] Monocyte percent differential count (procedure[facility] 03/31/2020 02:44:00 PM EDT [facility] MR SPINE CERVICAL WO CONT 03/31/2020 02:44:00 PM EDT [facility] MR SPINE CERVICAL WO CONT 03/31/2020 02:44:00 PM EDT [facility] MR BRAIN WO CONTRAST 03/31/2020 08:27:00 AM EDT [facility] MR BRAIN WO CONTRAST 03/31/2020 08:27:00 AM EDT [facility] MR BRAIN WO CONTRAST 03/31/2020 08:27:00 AM EDT [facility] Urine culture (procedure) 03/30/2020 12:00:00 AM EDT [facility] Monocyte percent differential count (procedure) 2019 12:00:00 AM EDT [facility] Urine culture (procedure) 03/30/2020 12:00:00 AM EDT [facility] Monocyte percent differential count (procedure) 2019 12:00:00 AM EDT [facility] Urine culture (procedure) 03/30/2020 12:00:00 AM EDT [facility] Monocyte percent differential count (procedure) 2019 12:00:00 AM EDT [facility] Plain chest X-ray (procedure) 03/28/2020 09:49:00 AM E DT [facility] CT BRAIN HEAD WO CONTRAST 03/28/2020 09:49:00 AM EDT [facility] Plain chest X-ray (procedure) 03/28/2020 09:49:00 AM E DT [facility] CT BRAIN HEAD WO CONTRAST 03/28/2020 09:49:00 AM EDT [facility] Plain chest X-ray (procedure) 03/28/2020 09:49:00 AM E DT [facility] CT BRAIN HEAD WO CONTRAST 03/28/2020 09:49:00 AM EDT [facility] Plain chest X-ray (procedure) 03/28/2020 09:49:00 AM E DT [facility] CT BRAIN HEAD WO CONTRAST 03/28/2020 09:49:00 AM EDT [facility] Blood culture for bacteria, including anaerobic screen (proc edure) 03/28/2020 12:00:00 AM EDT [facility] Blood culture for bacteria, including anaerobic screen (proc edure) 03/28/2020 12:00:00 AM EDT [facility] Blood culture for bacteria, including anaerobic screen (proc edure) 03/28/2020 12:00:00 AM EDT [facility] Blood Culture 03/28/2020 12:00:00 AM EDT [facility] Urine Culture 03/28/2020 12:00:00 AM EDT [facility] [place] Count 03/28/2020 12:00:00 AM EDT [facility] Results ID Date Data Source [id number] 01/01/2021 11:43:37 AM [facility] Name Value Range Interpretation Code Description Data Elizabeth rce(s) Supporting Document(s) Progress Note [facility] TOMVPi1dIsJRAdIw40/BHFdkSREhm3WyUTzrURk1BRpsPMLuF3HjPIY3tM2xMPN5HAsCKjLvSzNkVpO6 lbm [file] AgICAgICAgICAgICAgICAgICAgICAgICAgICAgICAgICAgICAgICAgICAgICAgICAgICAgDQogICAgIC AgICAgICAgICAgICAgICAgICAgICAgICAgICAgICAg ICAgICAgICAgICAgICAgICAgICAgICAgICAgICAgICAgICAgICAgICAgICAgICAgICAgICAgICAgICAg ICAgDQogICAgICAgICAgICAgICAgICAgICAgICAgICAgICAgICAgICAgICAgICAgICAgICAgICAgICAg ICAgICAgICAgICAgICAgICAgICAgICAgICAgICAgIC AgICAgICAgICAgICAgDQogICAgICAgICAgICAgICAgICAgICAgICAgICAgICAgICAgICAgICAgICAgIC AgICAgICAgICAgICAgICAgICAgICAgICAgICAgICAgICAgICAgICAgICAgICAgICAgICAgICAgDQogIC AgICAgICAgICAgICAgICAgICAgICAgICAgICAgICAg ICAgICAgICAgICAgICAgICAgICAgICAgICAgICAgICAgICAgICAgICAgICAgICAgICAgICAgICAgICAg ICAgICAgDQogICAgICAgICAgICAgICAgICAgICAgICAgICAgICAgICAgICAgICAgICAgICAgICAgICAg ICAgICAgICAgICAgICAgICAgICAgICAgICAgICAgIC AgICAgICAgICAgICAgICAgDQogICAgICAgICAgICAgICAgICAgICAgICAgICAgICAgICAgICAgICAgIC AgICAgICAgICAgICAgICAgICAgICAgICAgICAgICAgICAgICAgICAgICAgICAgICAgICAgICAgICAgDQ ogICAgICAgICAgICAgICAgICAgICAgICAgICAgICAg ICAgICAgICAgICAgICAgICAgICAgICAgICAgICAgICAgICAgICAgICAgICAgICAgICAgICAgICAgICAg ICAgICAgICAgDQogICAgICAgICAgICAgICAgICAgICAgICAgICAgICAgICAgICAgICAgICAgICAgICAg ICAgICAgICAgICAgICAgICAgICAgICAgICAgICAgIC AgICAgICAgICAgICAgICAgICAgDQogICAgICAgICAgICAgICAgICAgICAgICAgICAgICAgICAgICAgIC AgICAgICAgICAgICAgICAgICAgICAgICAgICAgICAgICAgICAgICAgICAgICAgICAgICAgICAgICAgIC AdCRu2Q2hmCGKeHUIsTJ0zMGw0Vx8+DQoNCmVuZHN0 ztNmwC1FBW8qp9PnAVkgVNSoz1JvFJe1HS5QTZJcCBfpJN0EVFoptw9LDDGfWPBjiPNYz8ajJjIwDTY7 DGMlHwjvYE5QGMRmO8tivrDrYZQfBEEDSPibPQHLCJzvACMZSHMlXXWsDlVqOqNxZGOkTSRuMCPINEL7 IDAgUiAxOSAwIFIgMjEgMCBSIDIzIDAgUiAyNSAwIF FnUchtQPLDTN9HQqTpY1VobD20RGZjWMq+Lj5QLI4rb5LsQPu1BMBpVL1xhx1QZWtRBcJyV9AzclL3PQ J0ISFlAp7ZLQRrFFZlbNL2NGTeDSJMYoVvS2FybL84HDPUVl9+FXvhztLqVdtBJkM0AEHth8LtAAd5MR 8GQFYdLLj4uDEeLWMgP6Dwm8LgTe86FXXtIpaqZyOl qtOnXXOVp3PpwCKcCF4GZQQ3AKWxKZCuZbPxJECuPQwvAIIQXOaKKpAiN7Kcu4DqOgW1JKMuZyIqLVvu RZKzJpA8XD04xIruVD2JQNZwOOBdNC65LMG5DIGsKu7CVi2YYxOfYG5pzx1QCUXbZORoFvfVXnj3IFlz JP2JsQTbF4McyNLcf9tYXpTaZ9XNVQAtPTCfVi4IPY UeXmNwTDQvQMyvAS6zKPDaWYIBeNxhprT0GW8TVG3lidBsRE9YGzDbGw6jYy8FExEiG3YtF9CvAOVlHZ GQSYqeOF2XMAkpAO0fGO7Hq1DXfRFqoS0urt9KYFLjLFTiDshknl4RIhvqE7X6fRspTNRyTVPbSXDPST rvGC8DEFMuLEF7HLO4XxLlEYTPTmWyK95lCN9XN9Ff u69yQzN6KBJsZcQaBHomID35gTlrdjTdqGHydXxvVD1GSn7+DQplbmRvYmoNCnhyZWYNCjAgNDcNCjAw XYYjUSFwIGFiVeQ6SjDmUp4USENaSAJfJNKvMzExIWLdBTQmKSisXPZcJTNeFdA1BVYuNRWrTN1YFfCi SIBjKAEvFGDsPCRzPGBssh1CSGAtGXPeNCE8XuIvMT LrLUBhBAriMBNzIYK0TFAvWAXxYCLwOK1MFoIfBLCpMNA9IgBeRDCoEQHejn9BPJHvWMEoJmV8ErVlZA LjLYEsUAjqNMQiBLL6ZNQtVZYgWOWdGR9BFsJmCULkOVKsYssjRCTqXDUqcz6UIEHtJYPsIBC8IiYoQD JqTNBtUNnqHSIaVRO6WIR2GDYcHTMyIO2ALgSvQHJm MDOuEwLyZFMaYMRlsi0JTSLrAYBwGjG4QmTtPNYgJFFiABruIKXdUUT3McX3FBWsGVBpAK7CJfOlLWWe EvI2TUHwRBFnNJIxnn4NTGYuAYMjKOl7ZZKfJFQpKXVbRCnmAAZoTCFyZBOiURXzZOYiMN8YOnAlXUKc QtRtPQIwOTTvVZEwpw0MSZLyTHHnMkQ1YQZnXJKkAY GnNSgiXAVgIYX0TFk9TXJbABCwGU7CLsInYXMgXnd5KwBfHBXwHVGrby5YJKWlFYDsLWusLJTlAPXzTO GvXTlxVLTaMPLuITQ1RCFjOQEzBT7OVeCtKHRpWzBpKrUlIATiWTVtgf7QRNXxYBSzXCB1WtUlEBAcMG IgPLeoHMDhRIF9XHY6VOHaKIHkSM3IMoHoOTWeLjGs TaTzYPVrLYJwuw1WJDItMUIpQAYoAsMbJWObVCTlQOatTBQfWNE1JDq9KRPpYUWhBN0PCcHwQLSdNnNj JFTcQILgQOEuuh4FVDVlUAWmXwP6HxMjSMAoNLYcRByuYEVdZMM8RWM0KKXhXWRjBW0ZIcZrPVUvAgn7 JtirWZCbTQBulb7BICTmGLTsQlgqJXWhADQqWYPdCO ijRVBxLUQ3DzW5GZIjJMWlQB3WZiYeZVTyDMw6MiAaUEJrZOHvqn1XBLAjNZO7MRp5NCKgGZBfWDYfUT keQWAcJBLnVQN2FOEfEULaKE8JIsKkOXJlRDWnTlJmVOHqURBatt3PLXObAME7YIFlCXKqDIFbIDYlDT ysZSAbKPAzRIM3HJNrEMTuMY9WGlIhMHQdXDU5JJUp KHCxWDAigb5QXYCmUDZ5UbVeFyClRGJvLLQcKChxQNAhGIOzNNF1JRQuXHRrOC4BExChQZUgMMN5QRgb GWJfMTXubd7JKMOfIQT8GrygAaCfEISoSHCjQTg7toCydNZhWJk7BR3GC3CfhoOfGJtXYy9Pu264ICN3 UWSbEr7NZ6arFa7iGELaRFUOYj9YPAi0FNA6IOcfXq ZpXKN6WsE9HAApSyLxO5BpMUWvYDDbSbC+PDy3ILA7MHSlQBKgVLO7ISutPDTrMNL6MdN7ClDdZFU1HV 1dFNKMIj7+NJkhlWKytKidHRETFxXeHSlgXZyuXBYMVq7M ID Date Data Source [id number] 12/17/2020 03:00:00 PM EST [facility] ([facility]) Name Value Range Interpretation Code Description Data Elizabeth rce(s) Supporting Document(s) thyroid stimulating hormone 1.380 uIU/mL 0.358-3.740 normal Thyroid Stimulating Hormone [facility]) ID Date Data Source [id number] 12/17/2020 03:00:00 PM EST [facility] ([facility]) Name Value Range Interpretation Code Description Data Elizabeth rce(s) Supporting Document(s) blood urea nitrogen 13 mg/dL 7-18 normal Blood Urea Nitro gen [facility] ([facility]) glucose, fasting 61 mg/dL 70-100 Below low normal Glucose, Fast ing [facility] ([facility]) creatinine for GFR 1.04 mg/dL 0.55-1.30 normal Creatinine for GF R [facility] ([facility]) chloride level 106 mEq/L 98-107 normal Chloride Level RUBY ([facility]) sodium level 137 mEq/L 136-145 normal Sodium Level RUBY ([facility]) glomerular filtration rate > 60.0 >58 normal Glomerula r Filtration Rate RUBY ([facility]) potassium serum 4.0 mEq/L 3.5-5.1 normal Potassium Serum ATHE NA ([facility]) AST/SGOT 5 U/L 7-37 Below low normal AST/SGOT RUBY ( [facility]) anion gap 8 mEq/L 8-16 normal Anion Gap RUBY ([facility]) carbon dioxide level 23 mEq/L 21-32 normal Carbon Dioxide Level RUBY ([facility]) ALT/SGPT 13 U/L 12-78 normal ALT/SGPT RUBY ([facility]) calcium level 9.3 mg/dL 8.5-10.1 normal Calcium Level RUBY ( [facility]) alkaline phosphatase 207 U/L 45-117 Above high normal Alkaline Phosphatase RUBY ([facility]) total protein 7.0 gm/dL 6.4-8.2 normal Total Protein RUBY ( [facility]) albumin 3.6 gm/dL 3.2-5.2 normal Albumin RUBY ([facility]) albumin/globulin ratio 1.2-2.2 Below low normal Albumin /globulin Ratio RUBY ([facility]) bilirubin,total 0.2 mg/dL 0.2-1.0 normal Bilirubin,total ATHE ([facility]) ID Date Data Source [id number] 12/14/2020 08:08:27 AM [facility] Name Value Range Interpretation Code Description Data Elizabeth rce(s) Supporting Document(s) Consultation [facility] ZNCZMj5nYxYEUnFi51/BQQhdLBTlr3JrGRszCCg8UNbbBRGwY4CeZGY9pB8kYHO0TBeUEgYlBfJxGVF3 [facility] [file] ICAgICAgICAgICAgICAgICAgICAgICAgICAgICAgICAgICAgICAgICAgICAgICAgICAgICAgICAgICAg ICAgICAgICAgICAgICAgICAgICAgICAgICAgICAgIC AgICAgICAgDQogICAgICAgICAgICAgICAgICAgICAgICAgICAgICAgICAgICAgICAgICAgICAgICAgIC AgICAgICAgICAgICAgICAgICAgICAgICAgICAgICAgICAgICAgICAgICAgICAgICAgDQogICAgICAgIC AgICAgICAgICAgICAgICAgICAgICAgICAgICAgICAg ICAgICAgICAgICAgICAgICAgICAgICAgICAgICAgICAgICAgICAgICAgICAgICAgICAgICAgICAgICAg DQogICAgICAgICAgICAgICAgICAgICAgICAgICAgICAgICAgICAgICAgICAgICAgICAgICAgICAgICAg ICAgICAgICAgICAgICAgICAgICAgICAgICAgICAgIC AgICAgICAgICAgDQogICAgICAgICAgICAgICAgICAgICAgICAgICAgICAgICAgICAgICAgICAgICAgIC AgICAgICAgICAgICAgICAgICAgICAgICAgICAgICAgICAgICAgICAgICAgICAgICAgICAgDQogICAgIC AgICAgICAgICAgICAgICAgICAgICAgICAgICAgICAg ICAgICAgICAgICAgICAgICAgICAgICAgICAgICAgICAgICAgICAgICAgICAgICAgICAgICAgICAgICAg ICAgDQogICAgICAgICAgICAgICAgICAgICAgICAgICAgICAgICAgICAgICAgICAgICAgICAgICAgICAg ICAgICAgICAgICAgICAgICAgICAgICAgICAgICAgIC AgICAgICAgICAgICAgDQogICAgICAgICAgICAgICAgICAgICAgICAgICAgICAgICAgICAgICAgICAgIC AgICAgICAgICAgICAgICAgICAgICAgICAgICAgICAgICAgICAgICAgICAgICAgICAgICAgICAgDQogIC AgICAgICAgICAgICAgICAgICAgICAgICAgICAgICAg ICAgICAgICAgICAgICAgICAgICAgICAgICAgICAgICAgICAgICAgICAgICAgICAgICAgICAgICAgICAg ICAgICAgDQogICAgICAgICAgICAgICAgICAgICAgICAgICAgICAgICAgICAgICAgICAgICAgICAgICAg ICAgICAgICAgICAgICAgICAgICAgICAgICAgICAgIC DwKUUmTNUfRVCzLYWfMCAsDZc2A2lfHFBpCSIlIX7uMPr4Sm1+HVoXGpIiDUF4yjJeoU9CPT5it4KuEG flRCTpt8EsBZa0AE4PSCPnSLubGB2BVAqbip1ABKMmNQIceGHSh6hdRlVuVQV4GDLoBbthLS1AESGmV6 lkcyBbIDUgMCBSIDcgMCBSIDkgMCBSIDExIDAgUiAx AiYlUSMeTZ5ESSXtY679kdJqBM0RUf5OVrGcLX7msh1HYnYnKMZgTbkBWyh6ZQrbIJ7XiXUreFLyFXTy YWYAIoHtV2gar4GpKdQjNZIIBEllQK9Ci2UveUNdIHn+Pe6UAG5xg2AzISkqGTGlIE3soa2EJIhTBtSu M1BpuDrxELWekvK3cHUrSQB0NUAsjmzuVAMykmcnIW IZJwUflFLlZtY4LnVhSqPfTOD5KLcqQX3mLQdgXU2FWUX8MVgkNKRwIBSoN5rROxBvKMOiOuKhfRwsRS 2RTsBhN3EddpXemVYxEuVwROSIPs6+NHsnwoLzSzdKXyW0DDNkf4BmZEw0UL0YFSZfHEckCB4LDLOhmA 7uRThzWD3EUwRvWTXnXQYSZnTlG20egNQqZIu8M9Po YmVkZGVkRmlsZXMgPDwvTmFtZXMgWyBdDQogID4+ID4+DLpeVT9BHFgadjRtRKGlHg4DFGLpPQZlMO8y JUJcFFWtM6Q5tSziIKJNWjRfP9fqyfujBY9oALXoA693sBlozzOuFBKcAQVeJk2VBPUgOOO1WTStwMSq VoSxSNZDGLkrYP3SjNDoBEE5lO4aRBfvTGTeUIYiU0 dXQiIyqWxrJL91tSopuqOfdBJvORn+Ke9SEB0pb5YsFIc6rcAaXYhpTTP5LPcyXDSjBTWtKGGaAWU4AB W4WAYRKpKqOYLdXAQvHCusCABqWXYvzk0GOYFnMWIaGkV3LKNpQSQePULxEShxDQNpFZVgNIQ5NVBxQJ XiKT2RLxOuJCKxFSUcUGjbLMRaSRCosm1VGYOpLUIe McX0PbTnNHItVVQpYHvyNJUfXLWuYNPdRFQeEPEfBK5IQdFsMYUkHKE2XhBuMZYsYTOkah4DQMZuGXNg VaR9EaOeALLmAHHaIZtuKPOpGWG3MRfpTPBfWVOfWG4WSoMdKJQhFOxrNHcbIZMiBAZfns8SDBKdRUDq MTkzNiAwMDAwMCBuDQowMDAwMDEyMTQyIDAwMDAwIG 6POnJwVFQpTZKvStPxSAQrYIDjqb3WWCVjFAOkEEYbItMbIQCrQXTxPHkfSDXkZAU8Ftd3OBFaDTPzCA 7KDmFeFQJqNLX7HVFdMXOlTMNxah2VCJEiDEJfWCr5YuOeMFGpPIIgWVjlHCCdQJB4XxN5SXVpQMLfXU 7SIdAyVYRpLXU7XwosKIHeAYEgfm3YSENxLJOpWgUb CTStLQSbHROjKUoySVCfUBD5SIu5VMRoQWSiMB0LQcJcJJScNOupORAcZMHtFIZfaj8BZDXqACHeLZT8 ABNmEHThWXBqWFdbAXMdIPE4WBHuIRLjUKQfOG6DMdGxYMFlYoAjNekoTPKcBJWenz5COZJyPAZrIAD4 LiInNGOeWXPgBCljZNLrLBFrTgW6UZBpNLVmMY5PDk OfZMJgMnO7XeCxFHQeEUWuif5TMPKuTIPuOUciToWpGIPlEHYxHGenOKUxHRAhYGw2LSMlRUUqZU9CQl TbDEHaUzWkNpAzXQNhTQIxwu1BWEQsZUItJyYtOLSjYOUoKWYeUPpgCMWoCIVvSWN2FBKfMZRjTM7MCd IoAHNaZwYxZPYyLBPzLZJruq7TPSLoBPDkOVH3MIHq TGJcIRFhIUp6dyGvaYQmQFr4XQ7CJ2OfopOsSkFBHc1Tx896YVX0DCMlNk5YU6wyDp0tKNDiHEEOBz4R PTq8VTj0DyG5DBZwKPJzYLKsRbW1DRF1WUdsOaQuXXZgIJM+ORmnCgnwCDEcQ7WaDYTrYGT0XaKjEKA0 Z6YeC8MwNiZ7Zx5dPOIEGs9+GCbbuEAkdHzjVSFHLcT1SPS6ZDmvZFBYGk9Y ID Date Data Source [id number] 12/05/2020 02:17:28 PM EST [facility] Name Value Range Interpretation Code Description Data Elizabeth rce(s) Supporting Document(s) ED Provider Note [facility] IOVQGq0oRxEYAeJm08/UXBsuPRDrj4AoKVxwABu4AZoeRROlK9KrWXD6mI3yLGW1SViTQpHqSbHhWBQf lbm [file] Rs7aTPXESv6+BFqsrOPojKbhXQQXNxS5HNJsACeoTSLBEj8U ID Date Data Source [id number] 12/04/2020 04:20:43 PM EST [facility] Name Value Range Interpretation Code Description Data Elizabeth rce(s) Supporting Document(s) ED Provider Note [facility] SCFWIi9pSgVHGfJt95/NHJgeGSVpe1EaMQdePXc6DSakHSZgQ6BiBCK7hY3eIIK9FMqRKxPfQaJrEGK1 lbm BkOfdKVnCtAJQtPmjWArJeOExhDabeaDFgIQ1TsXG8QJOmP44sKFSyFPJqB0HsJOK5Mhz+Mz2OYAMtgW VlGZ8QWysS1B1pd9kAEX/vTP+Ak2ykC5e8x5laiZmtUW91ekJgO4IMUrNAbgGzsRXb9s3csQTr5Rw8QI dbQLbB6jJd4SD6l4+5m2SWtc/6JGuEauI9Fr//4c8w ReO8Xwp2H+P7nUxWd40/GUMUU3vDnQR/vN9wouqm/PUZmg60Td9BTZ1wB+haNaokLaMNTRh6f/O9mPxH OUiKn3InHQBPstKdEaI6Jg0pAgJu7HmM2GEERHEk5fZYyMMeAtnlsj7pmQwEwB5oXOVgI3kIVoQC7Ru/ fEewMgKvNVhQ+O9AlFcS3wTj7HJziv8bBr5qiBMeNE KD3qwJi/SVQgnExep2/bTaJo/lkTaZgmTnA8N3onbsU0UGBqVC59vut/0asVmh6FRwI7YqTq5+XH9ezl Iy3q+1sfHfdezKuZ4KP8PvXf9i2UiXaPNsYy38OOuogY5cyT3IaVw4zNMZgErBPwQrdHgT9U3Bd8WnaQ gMT5gnmLJe+cdq8bGpCHRRKljAGTUHWH3FwBNQdfSL josefina+6iTPBFwvN4fb2xCUFdEFXNmOLKPPmZHYBAUHYxEE7TxVOomAFwUE6i8x6OQzTseD7d4BY4oUs/ne [file] YJ6feoT1JB4ZiLNfWXEhPELsxANqSLp8I87deAMwSPajEZ7GSWD+Sania+Wu1LLTRsHZPuRIKlDiIbRRLV TbRfP7LnB6MDc2TwE2TjSU20rJfksiGyHHuiDR2RBE 5qWKCpNCQSNT2BxYKavP8ekrAtHrDyCOBLWjBwW53jeJErFUDqAMT0RBXvLq4WWXXpZ4VjizXzsAkttu TrHILwMZCYFG0PIQqtfyRudFEitAywTD87iStoQF1IRa3ONsHxKR0lgh1JeGZcZs3NRMA2XG8ZGMEyXZ JpAZBuKXK5MUFpCqIoBTwfCGUbGXReEBF6XAJpUIAt SR9NTeFoGUCuBaoiUrGrPRXgFKOmtz5QVMGnTQVePGcpWpUlCEFtZMBsAZcoJUBdGYCeZNV3SOFyYDRk QR0HAgMjXXGrYNUqOJkcOKPbVTRmso5LBKAjJIHaKlQaCVQoYKJkBFWrQThoCUVbXQC2RuY5GVOrKCDa NS9FZlBcJYNxQGF4SoPdILYnNMTgte6KRHRaPZLoSY D5UiFuAFNfYAWbNQyuTIEuFDR1EbXaRNWwQVDgMF4IJbPgYICmCEF0YkWsHGKgKYUadg5BAJUdJAXsGN ygWKGaMFOiLTYmGRliYZTlGTF3QPv8UAPlJJEdLE2FVmZwSORcRDT4BAFjXWPlEOSdtd3XHGWwRLZiFz hxEjIrTTZzMVFaZEsbIOEvZLZ3PQD3XFDeZZQmDM9B MfOnKBZxOdTvMDAzFASwLCYitb4UEIZeYQDaIFSmQzRxYASuXVZkFJanPYOqOKNaYzW9CZAcAFMtSU4C BxNqIKXiInW5CpNrSMZlMCCddz3RZSBvIXCrZMf3AuNjVYXzSTTzWUxrWAWnSFWtIxC6DNZvLQNoNR0G YpWaQTTlYnD9PMtqEUTvAAQdet5QPODjXKHrKcB9Dg YdMOYsGLQsYRpkNDJdVDK9GHA4CNIiEGZxGG3YSyVlEJDmYfGrHNCrHLIoLPMwzc4LKZGuDXCvOHFeOo JtGXUbDECvGHmhGHBvVXA6SCSsFQHeXUYiGH3UEgTeIIIqUeUwNsjeDMIfPPRmmr8RXHSbXBOwHuY7GK BhJJNjHYUeYPizKEBwFQS0WOc8CKNaQVElVZ0ETcBv BBAzYxB3ShHuMRUeOOZfbs1CNTZnBPMqDrO3MgWcHOGlWRYyZZniGJMcLHP9VVM8IBJtRGBsYV5OCoSn FYAaHsceUAPcONCtHKLhwl3QEMAnPHZmGBI4MjCyQWUmOOMzVSssOUIhIWS5ECH3FMZcDLThPU4NWqRa YDOvEUIeSwJfYMPsRQGeod3MGTPpLVJ5MTK2SSWnBF NiCKMeZUfeMASmOFTwXax2PQCoYGWqZF5RNbTmKWJwQEC8EyEhMRPyEVXnbq1QWBOiCPQ3JLz7SFYyMM OgSSQgUTmgKRPfBZCvVEJ6BDMsOLQbNY8QVqXwBOkzIIOXJnm3TTpdM5d0ZAG7IU5SH4Kwr9DiIBGvHS FGLEhoAB6dfjRjIHDfOw5AM3kQLec2MBbaYmfeZqA3 WhOjYYTjBREkOeUzCCH0HTh7VECpCS0vMKTxEEWyJBCcQSDvYpYtWlGsUrZoXDK4UdXmCYYjXhQ9FsSh LJ6BRg5ENcF5NXN4iILnOv0XLMQzKvPSQeFnAE4BBRc= ID Date Data Source [id number] 12/04/2020 11:17:51 AM EST [facility] Name Value Range Interpretation Code Description Data Elizabeth rce(s) Supporting Document(s) [facility] NQDFYq1xJrXEJoPi12/NPXllAERkh0OoOPhmXWr7DSvhVIPbB8EcCFC4aU9dEBB0BJtGXiQtBuBaOYE4 lbm [file] wTGtrmAJu0qjy5K9CHuvBL4c/hKMc8VACzXUfYt8KBr2XMpw1h5f658Q45e781ImWvK/[employer]++F2NEX7DT [file] ACID OPERATOR+Fl5EHAKrQEm2B4O6LDKfKBt8H7QAU9WFGOPsZRkiZZvcPVUtGYl5M5U2NTMnC5PXR5Qfvlpiae8+ SW6BD49GMUPaTYr8R3A5hMFoZ8L4dMfEnKG6XK0TXG 3WfBu7dMPomR0+UP9EE3ULGjQxAXc6W4N2jVUeZ2F5jXoYgTT5UT5PCC4ZkSEeERQxvqVsEu6cV1HRGZ uUMjVDRHT7RW1DdJHtXI7EmAOXR9RtaXUoLr0kLUahkWCdaY6kQn8rAMyhVP1UWaFOFBoHBXY6KA5IoA UpQN0TzHEDF9JqvNFeGt9aTUkumPQbck3+BY9FSXLf Us6PSr1+EMlbmiQuZyrHPkE0COSvp2GtGNm8NK0UQO9mgZzwCUJ3Rp9HxXY8fDAiL7fJTI1VqCZuB21q hRSoFKBvHv3EGmY8wqYpwK2MJT12uMQtr0Z5TSWsT7syAOsfb25tSUdbJNqGIQ2fYTMYWNqmVCuuKBP2 SdQhsaqpNZHzCn1PHwYzKSy5iQ1hxDZ7VPE0CxgmpF KoQRfhOgFfLsVzOuR3tDqejjv1NXitKN6qMLrrvdntTJVrUeg+SPhiHHAyCYTkGbzCKYHkiU3zsgS8cb YvVBielHSiXv4ty9m9WtlzZl1uAr9bUXf9SyNwUjCmOLFqBg2uzZ36PZrsuxEjAf6FGwBjPYE2H5NsFz pSREY+IFubXCfnpKa5rPKfVHReLb6UTUZyOPPcXHAk ICAgICAgICAgICAgICAgICAgICAgICAgICAgICAgICAgICAgICAgICAgICAgICAgICAgICAgICAgICAg VKNaJNWbRNRjQZThSPGcGWIyAOMdBAJhLEPsMKUuUU5YBGKfDQLzONPmSWGdPTOsTTTaJDBmHECvVXQe ICAgICAgICAgICAgICAgICAgICAgICAgICAgICAgIC NlKXIqIOOzWXLqTOHtWGJpMAMjUDMnNYFbYUKkVUNyLCZrYRYbTHCfFY0KKYStIEQxLUDfXZRzUAXmUD AgICAgICAgICAgICAgICAgICAgICAgICAgICAgICAgICAgICAgICAgICAgICAgICAgICAgICAgICAgIC NbSDNgRUJbRAXoMLFzNHPsWTUcLJCvEE5LHQOfVGZb ICAgICAgICAgICAgICAgICAgICAgICAgICAgICAgICAgICAgICAgICAgICAgICAgICAgICAgICAgICAg DEFgUQOpRBQrMQWjAKUiZPQzVGVlQYWzWJNeUGAkFHPcVG0DQFDdZNQlUWQwKIOpYFAdBQEaYQLeDGGv ICAgICAgICAgICAgICAgICAgICAgICAgICAgICAgIC WeZMGoLIMjPHEiFZWnMGJwFHEeNCXzLDDwZOPdEBSpQHYeKCPaXAQsIXRpZM4MWRIkLGFsLEBbEAGaSV AgICAgICAgICAgICAgICAgICAgICAgICAgICAgICAgICAgICAgICAgICAgICAgICAgICAgICAgICAgIC QdVKGlBGXnHVQcZMVlBPJeTFIrWQNfAPPiQV8YHIZt ICAgICAgICAgICAgICAgICAgICAgICAgICAgICAgICAgICAgICAgICAgICAgICAgICAgICAgICAgICAg KCFsWQAtLOHmFVPrJHJxTSNzJATwUPRgUFGoIPBzVBPqDOCrPZ9GAOQvAJYqKMDcZXAoKKUyZCZwJELj ICAgICAgICAgICAgICAgICAgICAgICAgICAgICAgIC McOEBqCOKxZCZuGNJyFPGfIVAqYMYqFYClDYCuVFSeRNXdVHSkQHYoAMZrSJMrTG2XGCAaXMBkCNUwGH AgICAgICAgICAgICAgICAgICAgICAgICAgICAgICAgICAgICAgICAgICAgICAgICAgICAgICAgICAgIC UqIPCbGCSzJUQuVDNeQMOfCZCbTKInMMLcLGHkNS0S ICAgICAgICAgICAgICAgICAgICAgICAgICAgICAgICAgICAgICAgICAgICAgICAgICAgICAgICAgICAg JRCoOZFyBJHaKGLlVXSjSMOlDDMzQXStCFGbOCIxZCNdTPGyVRLzET4SJB15bGMuf1E3PYYkEG9vjjf/ Kx5RNCggzqKcmCKjZQ9THvIkMX6egq1NDeYvVC1sxp 4WNEjRQcKnG3A5tARaVRJlHMPXCvNmI68xNUqcQr39YNmtJBCtYoAsHMx2Nx0TXqHrQ8kzDMQeNxL7UO VwQhW9JVZlYkTkDBHaKRTqPSFaLWFPRHK2UWCpQdYiKfVdSDIfBKemCVXJTKRjOFOuUcHzJWzrKE8Ky4 TfbQX6KXd+Jt6VCR6pl2GiIXssHrYvVQ5qjx0CZSjA KiXdV0NyyeD8DUP8ZYZlOc9DGJZpNVZueQEwTAOpRYQUSkGoR5OjfS58RWJIZh3+DQplbmRvYmoNCjM4 BHHas1BuQZk4QD0MUDJjPFi5rAVtT37da2AlqYUsNeygZPwfZCLKPE1aU0vqLUbnWB6GHTH4DKMdSRyp ScBkUGJuLuz4RMXYVFyNEcPvS7Jht7LbAiW4DDCbCr UbUQzlSGRgKwR6YX00dWhaXS6GLFOmBCKeDQ38OSC0YMTaIp0PUt2IQuDiGT4big4LZeLlZK1nqi3XXE gYFeLvN7O1nZVzG0Nlfa86OS4KhGR4zNTyGD1WhR8vKZ9Pb3UwHPHgWuNqDLPlQVQrDRAtOLWoNnBzRV 3ULJOvBfYjsSXhYCC9YGP3EyYkIIPpBhTrZIUWXhKj Z3BmIPwsYtIlYNHYJG0LRlcgUNLyG7PDITpTRU8JK8bRG1WKDa0BMZ0AMQYOO4sEQ2lRJ7nQAPdzFZ0D VVApID4+KZ0NHb5LDqVqGI8wot4DVqhqTYEvThmOKlb6CUxzQV5GtJNkD6EpnGKgd1oZTcJlS5KGMCW0 JSLnEa3GXTVbWsGkOBIfOAqhGQ6lKHNfVRWXiCsyub K5FQ0FXR1qxlQvWA3TSzTuKe6dZk1HNtKiF7ZbU2QfMWBuHIJLASapQM3BADfeLD0yBL9Qe5QJqKSfiJ 4dqe9IGTItZNFxNtuctf9AEvegR5G8lCamAJEyZvryHJQTMIfiPZ0LYVVmOQB8HICqQvVhIGEGAxCvZ7 4xIG4ID2Hoa81qVcZ4TIFyHbIqGWnjMC65qZtzanFg mZBnfEtmJQ2OTv1+LGlhpdLlOfyRPplyGOEORkYfKLYULlSlVROzPHMjKTBkXaY8ZoZlIo4TEIXgKAGs ZARiKbCtPNMyRUQhFUzaTSGqDRR4HKL9NIPqRHKeEO8LOrWpHTElFLG1OEOyQYWiFLTvsd4IBNPdQPBm SCB0RwXkPBLsLZLwTIzkMMFsPLJ7WBiyGNGvFNVcAC 9CJgSjJAUwRXVkPOXzXUBmTPHyvl0IZEKeTTZjMUAvNPTxKPMxNCPpHJqqBWXoHSA6OAA6ZBQqLNNuJC 0GUzRmLCNaXEs8SFwiADFqVIIznm2SPVOxWYIsXREjRAWsEMVsNFDfBVzeLLNjMLEfApJcQLGvHBNcVZ 2SUdHqFPAqOZB2PcTtGCYtGXVuaq7QIYUbKHFwPIc9 PLJaHUKuIJJeQLiwKRCaUKC1KsGySNWaFPCwXR3EZhLeJUHbMCx4MhmxJLWeAHZloc6JGBNdMXCqRHD2 KfLjYREzWFVxJQivVLZoSLVaSdGnQZGjTBJzKK5FVjRtDAScMnH7LLDvYTKvJOBfpf4JZJOpMNDeBEN5 DFIsPTEoRSTkCBfeEKLzXYY6VCJ5LOOgXDGgPH2UQk QhGICeYpxyBJYfWFMqNIPjoa6WQDTcYPAxLZYgPAHcZCMnHOPkHWqiNALkRMR7DDo8MPJfVDKsRR0EMq HgRUBvGqijQRIqIJGuEFDsza9YJCLrHGVhMCS9RLHaUHVoVFGdMBxlRRGoTUD9NMZoBUOyZQKrJE5WVt YbALKcQyp6WiBcPTRlOLJtbm1ANLUwMSNjBGW1KENe OLYdWTSuKGidOPWaAQZiPLo5IXJyQDRhIK2GYsXhMMFgRsPtWyKhQGEkARThtv1HOGZoPZO4KUghZsUd STOhIPHyAZzrMJIsCIE9PPAqCHFnTFAmNA2RTzTjJQOxSXddQTXlHIClDJHohu2NGWOzEZZ1WWn8JHQp FGOtNEHfREnmRYIsBZV9LIy6WOGfEVLxOY1JDeDhIP LnLQCwIUOgOEOoZNDney4LJBEsNDR1ZUnlEUXkNCKqKJMlGQpnKWJdNUQuEUeoDMKjUCLzJT0PNxSmTE DwQUYxOMstNZScQGEttj7CcVRavUjifg6GPGmTFx5AsGvvPMOeDEuqQw1opFAtEXQlKKEKSz6DjdEuHJ GuEWFQAZdxIRYtLJB8LABdDmi2FWPdKSs2LHCxNEEl HNpwOUZ4FAP9A7IjPrY9FVFrUINtKPB1IkD9DOBtIdS2YgTtREOnQmT7Mwt1TCN+SF5xERg+Bn4Aq4Te ezX6lzYfJJu6XeX5DL9BYHQXM7XNFf== ID Date Data Source [id number] 12/04/2020 09:35:48 AM [facility] Name Value Range Interpretation Code Description Data Elizabeth rce(s) Supporting Document(s) [facility] RAPTJv6uRgVMVuWvm8MmSiAhBHOzBY4ecxc5P0K0gGTwD3XdxPFoa8iwO0HbR8PvFFOoJGUCIF2LcTMl jb2 [file] shelter director/lirX+i4x4W32I6jxRtXH4E0a2ROWUFQzXDzlbm IbEgTy4mPC489U4/jA16XIn4lWY4lE5H8/mSl6/NTVbYhFTRSvxb0yzGpo/A2D+c4/AtmAdiix38SpKQ +zDC3pOphXGruQnN666ut5lUb1Nh6IZzRVr3WjDgg5KYR3BeUZi+WRlCaDMP38mv7s2L2J5ppdt3yYct 1u1U466XcPtTr3G15bG79hO57vM84wC4nOr1sM9zn0 T1FA1r6CSS3Mzmin940PBkoAVjv/GyW7+7+Mc8zzxalfkh0abD3rcwpv2bieoLS1caGyr06iJHg8mXTl zT65MM+lQk6ewN9c9qhd25wzbxJl0eo2204BBMXhv7Q+sMQa0Vbhj6xRrfzk/c5vKqOOFpnLlbmZQfA4 29g8A2vF0R6/tP7e5q9PS+f7q3QcR4p3Gy+wyvhXuk 5N8UytkakI78Zs7Sy8kVCY+vpXe/PjT3EC2K+LvQ5nFLWN9R8NwZ1eQKXZfJZukj6x2JynMj6dtY5aXa Qo5cRy3f50tp4J19njtK61jYs0f2uef7y10x9dv1oEsHhDiVfkc8v2WAf7hJxjTUgNuv9GyEfro9qqa0 t8r4ebb8afd5nvf0bxn6PkZ6z2MciFlF9yPHV9B60z KeSz9dGl2k66yv7M78qqsi2iUt15py74rf18rs73nu27cw5+ehw4yDeC+f6nGt7NsHvOl9kCMei/UvpX cePcyYVLkT42eWTu7Y6EP7kVzkCfXgmdtK4A5t/BmTiYefl12ce5gtslqZHAs8yJGX/je/7PP20hqdv6 yul6jwu0vxH/6Af8G/4N/w7+v/LHL1ep6GhBmVtoV/ wD/gV/gV/gn/hB/sUmE9NH6BY+AP+Yk5P37OEzFlNU+32Dv6Bw7K/7Px1nu3yQKlcQa++XL3I65D/hPv 0RXnawy+Zm1//TBd3XEtxl/EW9sL/nSf7r0GaA/54wiY9lM7H84L/4u4h0c1bbknHB3fVOK0ikhv4/mb E+9O/0s1puj4S/4Tb+956b2ewmtmXQ4tQIst9MnRw4 /Lj+/Ar695k9n0X1x00/s8FLd4u1+Jb2tU8D/2AF9Bu3K/duwZt7c3im86+O7JGCeOqZ8R+b8137L1Rc XtKS6L2bbgm8wv268Hg66D+Af8Cr/Jj2trJ86LiQ5qRC+1HL8/0XScQII4RPtjdGWw9rjEr3//fh5swy /wC/wD/kQHmkGt28XI44p98uTIf0Zczuw/8b6/wf3d resn6kNwWz/t7qojkXeZHc+nE+GS0G1UZ/Fku/s1RsAVG/2b238Prlo/sCmYuDjlzKRyppIXvjk7cUi0 g3/zmwl/SaX6rSGIMM/mFxMi8/L4GZNCoQagjI+8fwTkFxL+4o1sp+zpRFO05Trc2z3s750ptQ4v4/Snow QtSq04/4P4PPv/fpyK2uvqP7yXjY85jPy/aWvz/x1n cRPvE+p38+30jwDxn/2zbGlJl2B2Ncl68/xVAsf26H9Nj+j8z3Ld+vIxTn5+JT9wizekM98By1eF4kx0 6MUH3O+VVF2Dngsav4D89eQz8fWe0/++CcMDDfJ08bDt0zL/4F/4Z/f/gE5gPE8c/OxxC+2wK/wD/gH/ Drc4+aQL7Va9Hh2Ww3po7i7CDbeN/gbsOPeAfiHYh3 1AmW14Y4/AK/wD/gH/Ar/Ar/hH/Cb/Ab/FcLMu2pXxD0lbzC2FawSwP4Aw2EbOFsNcY6Cb7CvEWdEtY4 Ww4MsSLzVeLy+rreUPLX4cy63+8RvFPn69aF4MlBejEt3CkEFu/khbswqDlyk9l74mY3/AP+Ab/Cr/DP o054JaB92/3TZ8NPMT6195jV3vs0u9+jrmJ43z30xG RPvFtr+/Y/R1/t+r17awpGSF1R/vw6sVVoab29phP19toPHG494dd/zO3YxBeN/k+8nwHh3/xqwd/2zO 8yT899X4+5ytmWF346QO5TQ94/5n2hVZ1c/lnyN+h2Bx2pGyJm9e9Sk97kfwObkYR91bv9T248z97o25 Gp4te0F/4Bv+Z6fwFIk56BpcfjW+xeZ9i9/kC8/ztX J0FqG31KQYqkRPMMDPawEezLq/z/wHbxQlO07g8DQ9dMOyNFeUIq/VXrk/6qNUx/1fqnv+w7zx2x7fDq 1iWY+3jg/bll6atX+ShgPkp/1e0n/yO9KkFBr6aHU7cTvc8/Vf2l/FX1o/DF1coIR1P/DJiPAuaj+J4X Ua93FmG1qDvPVm/y2nbIznvw6KLp1nD7fWL5cyLsLT lyCvkG8o91bix/Lt52yP26UofeF/Nv+PkDg9RSKY59/3Nq8sXWGFc0/y15bpa17/4bXN7y+4XMEPk tdnWZYJX20wW2adNmAOW1/4KfE8zVge2u1qI3ZksdOB6p/1+efs7DA++5Dkd05lp/63wXXu+U5C0zvua sqrK3VidrD5V088rZEd+F9T0pvaygtJj5mdN0kG/ir C/7qtr+S+kpa02kqdZ0I/sE4Tx36d/TxuF3G42bbnrnN8qo4/zRGH4tr6Gbl41yq1ZT6KakxqD9a9FVD f852Hh7xeV3GzH3V2kK6NfUyJippmdvgtE8Z6o/A/VO4CeX3IX0w/o22Yf3o/g2vw/3XlX3N16vz/irc 3/JX/W+O8fFyW3evei5D/mr+Ma3kwX7V9/X8q/Xv3+ v1769kM/Pv7/XyV/QvwY4F6phf3/D697x/7Xv+zLxhpbNtYd8avA5jomVd6/XW6+bCx5HgsP8Kk+p/X3 j9fq9X/mr+/V2Xw/U6XK9/+Y9seX5J9+cloV6M55V3IbnngO9u0IkC4dbdA/B6wPeE++xiiu5s17Q3U/ mr+nwq8FRv+vHT22d7iEa9kW2kphVtYv79ll7wy8/B 67/rrVxHnur/+7c79zp6+7BrF05MxI7x5Ynj8+/19Ffvv+S5Oq5nvP7B9cxwX7av0LWB0rZhM6xi4UG6 1dEiHspvrRmTjB9G874/IgdkKUwvK510ifz//l8wK4n2rwcdSv/iffDrJj1mtT1eacGdLt/05z6cYL+t 916Kd4m4LN+1+o5hU33sWfD/elQ5oMlogG0ZENSKeL iqrkv9ad/D38vxuC3u2ucm6919itHXaIIyLt/PaN6CmsS/T+F2PAbiE3zP73oxmXnP6ti5q/J91h5rAX 925bpG98ZDAiyjZXNLRDMpxn89Mugb+v0ROGsLbWjTbqQhUnGM9E2LrGFCM5KRl2y5X9vbG35fd+F/h+ +/ILJL4JujimyyJHnai2VKPKLFlbpOEKirhAHRiihJ 4f75rfEKDVw0wXphhiJoVtrZNGzSNyLFoOSVMNKvTzJd1A0Azs7tp6vv3Z0ZKKWyOaDgCcBLpOKv0VoN yxYyxl7n38zcAeHbBGJ8IK/WnIb/pRB2N/+fZ/ubw+eCtmxd8GODbjltLH7/aYwYa7b2pvF+Qp5SSEzp +jm3M9/xN75PiWr+eMv9k6dp0zpTu1Lmg0JZ4rCwGG 3YiSHZpDu6bl3UflwI9mf3u+Q9M38EByTh3/Q2GY+V5+c7bbHy+Uyhh1drpf/sK10r6QnAfhsDRtNWn7 7c4Vh8Y9mAvn0py63RTk+P3bU/RXMcs3WqN9c45mxleaXUgr5rfj0CFyykW7yEnI4OWpVSiTUJK3Ik29 XUOXkIkCgSRYJjohsSR+JIDpKDJJAEkovkAjnPgwGS wVQrMO3DexfG41NT75QXtxPqcUF5z98Ph6XwpOMMfDTV19VEINlZcyDYvrVEAdLaXTA4EKNxPWSXmI/x +d46/C0UeTOZvRJwbHtfGK5AoPfhB4c1hMAP0s6uG42qzo08o/6HMC9iuMsSPKVAgGzDGzwtN3xZwJuX /9TPo5YTQ4U+nNsRgm8eYWkWFsR1gP13EOPnkP+AJD CjwfK12i4/Fl4+kWmyHCcbfo070c2gTW0sp3MiT9R1QdNNgbrhxs75v2jId3a2f7mc0wo9G6ssipSCNO gIqroQ83qK4ym3LJuO9wjsNLfGB9wK4+xfUInm/rHMNEeTWvpsknNjDfirFj/Li61a/xpbv7y98j3Z7W uTNgwIDxBzA6uuIGPRBKpuJYRZ7BmJxYJb64pXOaUT 9hLMCr3OS93S59r/fMEt113Jawk5I79q9Is4bQP4x0USRDySoem0+fnE3qemnK8sd47tLlgBjEv5i5Qx 0zHWhueFtb/os04Ya095DR31KxyW7JY2XEv4WeK+BvIlteqA+bf0thr0sj9WX7k673YTkuOXYY7ZcKdZ iUu+9EcdS5+mdvkZI7pfUtzoqSgltVADFDRxYjeGnI mS4j8wPEjJUdQFVLLPDfCfUIlGMRVXEVZR1PRAS+TpcwjwPaiBogaGGhhqYKiBoQaGGhhqYKiBoQaGGh l8oHeuQsVFV+ZJKdVSvIEbUBvfoEE8cCC+caFPXOgTF/uMrX3sYYgBUhQoT6loMxo2kUD+caFPXOgTF/ wHqK1bfH9m9GME+kLONoGtX7beGiz4sSB+caFPzNPk 74jli4h/QJAIEkWiSAyJIXEkjqTyB/11Kn/wnSCfJ/8LWjXXZdFJT9fBPFE8ZaxUCHuBjAEoWzcsa8CN kAgSRaJIDH+Q2a5jTO4aynuCJ1icrKY3xTtWB7j8+N0BK1yR+YNV2cP+fCglnyGCmIWpXXKUTDUj95YY xAkMiSFx/DTHTztIUIOLGtxAcpHcj+SpcAg+dfJMOA DMcG8vgmRqORSYDNPbQjMoXAbRKylXxdc37rB5NEM4EK6MNcl2oQvZUyEFiTYo3Pz+THKd/YYAiSJR/D TDTzMkjsSRHCSoAeYTN+YTN+YTd+CLS9flErv6RPaAEqNWVZDPFFQDjZpCE2UZLSbkSTmGx15vwROdrd MqJXSUSHMFRB1KWVLBRCONkf6h5OfR+6QzDpCkM9N9 [file] YEUIh9cqf+SRIKANTH/WxaoWisDz0NCft6+x3kPmjgA8K+Qb i4+tZlLpuA0UbhCz2w7tEyEusnaI482Cx6Y9z/Tz4YbxnYk7rVmcQe9+ko+xEskYk1MOvgG6OcxaS6PM 70ie2Er13XykB42bIyg+xAsmU52rtsozq4A/oS+EGz2IAh8nM0+fNj/6NRO6VSGGUCk4+4S8SsR2GBX7 9E6UTq2+ebJf9iogJg5b7bMP8p9iyqd7HFWyR4A8qJ f1UHQDs+8RiHS+tpqHUXMZdVQfd0Dldwm4xDb0NJUO9BbF3jB2OJVDFFWW9NofC/iqf5HgcX9wf52Byd kVhXog7JbnP/8Kzh2l4wjtNqhbx7SblH7pl01Mykf1aw+3CwVR8uA+29qmEFEiCutUvXMhDfMt+VjK8M mMduGl6iE3rD1f1A9oH3nHBpTOq2y4qZwwEQkrsCHy d9BNEPYXMJe8RrHM+vefjsGyQgOWLEUZlSQZPPzHPpwO3dkGdSmX71Y9VH7LtFT4uBHY3NnZQP3p1BNC Oz04ijFWD5fPkYGU0KyVUL3h0NIBPl26kiABA4kCzKWEpM+rXe5jVuI6m/AipFMMUZTFRNDNtLMN7cFz A/CFYRJo9Um3Vhaga90eD34DJbPONIWMeNJogVgm5R yr6IEWL07iRwTQ8z1EcqRPAK9uLP3+zm0VPRYiQZnSA8X4uNkYUbT/FGuh+Eu1pOgzHhTXh3iNs+Uq5P ZelHZrnBVJNTWEqDRjUtpWjMbRKzD4KgNkLCPZ2ZcpI05YwF1QwJaXKJZ2OGqRqDLuKWg3QVyKoXYfPH r9JQiAbILXR85uUQgToIFnHKx4VXoSuVCjFLc2oBhX rFFuNTi5eWxFsYGbISm7uWcNbTZkVKk9bIuYxPX0cJeCyZXnmc1uJhxndrZ2CA5ZXN+Ivj2AYt2CKwVa qKSWOC5WArRARXK2avupuiW3HYfPSYCb87gEYgryjlJK6mVJq7+WFh/ZLpIJedY0NFdBxV2Pg7+lBje4 Dg1ngJqZNqw4FHc6dRIxgFSRrM091IcjGk5C2Skixs WjtNSQMaiNgwsgLDmk3KuXEHgdp6mda0npq0ZKt0WUS8WMpDzX7JQ2WyyhHxAHQMgPBKEMmQFxrqqJLG XpvpJ2hZuNYsRFdEWT5UYXmsYDVaA0nEN/0egnFh/FYejXCYnHKfP0nI6/0oovjh5XaA5s3dVyNb8nkp Q7a/Mu6NQmcl1kxOL9+en6JsbRXTEoo1QugtNtlTau +Vg0+OjgQk2lAv8o+Fh2qD/5ZBBe0VI2GWAfv3nfW3oMY1LLqmVctztfa3ZS2tgVQQca+TcsgYBR9wLo vQXzVJX0Xs2BMLsQ1C89ldTRmh5/WnPNOf2shuY9V/WIaKah0cfHFbxSOzWg9yH9SWqZ0fVySsduIX3P mwNbZ0fBtJLtP/3f3nws+aVIwyZwd6UXS9sXB9Cl2I DtU0f/RC0+nlnwsmjd8jR3BoMXYOhJOT0I1bD/BvmNohNMyyZCNXgKQh2NB++8+Ds5PTQHAPBwvrcQRS Ks6aWnRtDtqbgJily/9K3ryA1jn2krtixy5+7ty6ZJhtR71p0XJp+hjvkxalD4t/Px8P2IwN+YETEiyD ZPL4eG8mhACIN+snrfwFHhTCkTbCgboaVOe3BEG22s +Nd7wYjuGKWzBZOlhfbzOMukdbdVzX2Xv11plfDid1MooHmRtnKucWbPWnbe7pY6ErYsIjrwo05Oxlcy FaFNPpZKniQfSwVyk4+ysgiLf5KwCv+83dv8xtIaY8qVnF44ulu2GOjtpomI3rMSmbYGr7H4NX+QdSz1 phPAJy5jLA7+gbcXTneQxkJMNET2Sk+SrGOpnS/rWO lSbIXta3NFkjI+VreVrqUs9ku7ovc/qvP3RhCGgx4hN7i8UZo7zS7A5OLpECZRMCfyD/iJ+73wJ5gt7x HwqBpBmUm4x1HDgnCE8hIrOhxQ0muvmjNqwQOyHwoQjBn6OfBpVGib/cQtoLYv+Hy8Pi4zFvyrvVvJ3E 44+TyKaW4PFkzCzwxe1eVkT8lEOu9U4SCJUvPo6Zgq wv+H9ZY7PZMZih1rq3hG/vw5DKKQGE6SqK5cR/xf8IX/qk9qAledWX6TVfCG1CwKmGoJZHXDkXVxNKcP EXEiTqQTwX/nfuG/c/JqdTRTU2798E6mPkZ9wWn/vP2Xb+Tt794+/O+1aa3g1S2XHAklzA449Wpx/+O7 v3/7/LP3H3/e3th7VSR7fN990ojwDGVWODMffbFi19 Uyf/mfSg0dp8bX4Jft0GrrU1hk2w/20KnfW2/xz29f/+6rDx9/ePf2+btPP/vk49++ff3FZ9+8e//VZx /++Zfv3n/+1cwnj765be/y6w+bflAx2c86H+8/e/fNx7/92YBuf/b+yJ/8untyZcuD+PoBukv6x9w9f/ nnD7/5/P783m3Dmm/2xZevb/3t27tP/vE/eZG0/aK3 371/535cC61+2sMGo69jihhpig//+beuyy1s2GF5d+mTP/34r9//+Yfv/vD2P/797Zvv//jHb//85+++ /vRmc6989V/ff/nLk317QkYn/u7tTz++ya9k/JcJxF9m/pGNt48//5shR+XP/anqP/zwq7/dt6nCV3s6 gn/0Ecj4pmn2aG8/+Q+M6vplMog/DC9dhTBaikkn/e s1oTe3lHxnPmN4b79CV+Hv+hF8g76mq8ilUTzaW8u/7l+/b8wkRxXCu4+f/Ef3K924+OzjL97++xdff/ jq3Rc/MEL4dFtBdW71z6WbkobUw2wC+Jkjv/3i8ShdEQ0TRCoUamlUZ0/9+Nd/ePvzt3/97ief/npMvW XTmvtFP/J9ugDb3bwfY1/g796/ff/jX7/78//5mx+f H79N+tOPz9/+3Mnr55++sX96/9XbH/7t9du//9OPP//4cMm3y1/Pj3iwf/rwq3/25Yav2YSs9WgX/SuT /fVTco1TEFjfN2k1dw//FL7nrPAesP9+sAf73S/f//LD27f/97u//S4oxu4vn53+/PU//uPeegVmz5Lc //7nf/p2z73204f/+t0P3/7xJ3d4/QT/5Nt/+/23f/ n+2x//8oYyQ5j/059++Mje/wzfP/m3f/r9R+5crfe/x+zbf+Mfvvv9//rx+9+/ctMjz2lGeu+baEM7Bu K1f/vsw5847bHtI/zm3c++Yd946pV//Iznd199+Jef0p84J+X//5L7D4S+jdrbfvft//zuTd7+9K9vQv ME+9Sz5t/e3r1W/eciekork2wvv/e2l/MANSI+PL95++ e//R/UcW1eBq//j4k0++/FlG67vvuJ4TEaHxgxf/lXhWDGrhfeEckFSbAP8EEN1uf8EtFnD0WZPwj4Am HLrgNTq7sXLhIXwmhkHct4NbexoqM2Dka9PmHeIzVNClSaDbBxg8DZOxYsJ8iQQnDlWsPYKsX0YqJACk LgY2KpNsGCVPOJ4HYZOlfpNrOfNzYSZ+ImBaPD9ljo buVVJta6AhXCijMKowEANaL8F1lNtsTCAaY1BinQ40OGBqE1KvhiJ9QQR8XZHyErCmYGNhePVaACLfXB I+LbTxRW7cuvezQPBcm0OiKNwpIYX7nW7kXYtFPATOSXyHXWxgCsC0l13ncxXVDTInKJEvWE8FbtNqaE rmjpSjnVMqBFM2GcViVAFvETycESL8SUZAALPvLBNm CKMgBREbG5NswOvjBZbMXOWYOQxOTAdrIdRyn8S3FSAgfhVZUQIRU5ZeEE2UEiMOUQRdVRkwMQu2NNbs K6A5IschH5IxCY8XD5CyJBEfORRMUPHzcnTrPO9VymYjvN3wCXxSLSIRQMvGQKocImN7l31ficVEMHPk FECwGMkiQJXeFREeIFBeWWLjKDIgXZSwTLXeOX6CG2 ZrPCQqXNKNSUY6i3BvPIVyjklvexmyBr4rnsEmGpg+MturJCLxe4BpWTtcE9X2pIDwH7UaK2WjRC4EeY FqTGphSVWaRNAjKPSnU251trQgQR4+DN4ai1NeOeuxHIIGEPJwQVUvOFDtOHR5EzQjVKHxCSCaMLLoNb T3RuLkYrFTETNhKSQ5GJVjAGEdUNKcHQLuBAooGOEv OJO9WUq0RDOkZZTiKI6xQnUyOADqGpOcOUYcEYPpFETqmqANGJTmHAXrEKUhWPK1KVSsUMTlVQjjBTKl XMIbTTA4GZVnIJIjKM0yRrStYAVeMYJwRbrlYCLuAZSwgcGTJXSuMSJxKSI1QaYpCUXtVTWnAAhvSNXm CWYeHib6FNZlFFAzWP0jKpMvEFBcMEU7MCjxKPFlPU OunuWEMFUbGOTpINQoLqSdXINjGMDdQOofCECgSTGaYnJxJGUgKIHaRP3mGnDnAPUiWAK5BYAfGZEvXQ NgsaPRFHZgAZRyRNs9ITGgIDEdYFOjFOjyBEFuPLZdVOM6ZQHoDKIoZI6bMmKvPIYtDEZzYKXbQMCuTX PukmCASZTwULMeXFQ5DPPwGCCzSKNeCLnrWECbOKXz Ojz7PBIyEJPcPI6oTcZlQYYvZMM9YCHeDZZnLWNozvKKENCpTFO1Kqk5MPYbNYOgQQOyKJhyKPVpFJLv NxP0OLPxLDJoVZ3vYsNtQHSbYPE7JyNfRVIhZEWaakGNGLVpBRElKOF1XuNpLTBoUGLkZCpxAFIuZWEk YALlQNC1QXY1QSNcHyLdRVuqPMEKIFlCM5VsxdBrYp YEA8rdXu7zEnNrSITQV3Avc8CxEWBkKDJAYz8+JzH6QAR7zSGhSfb4QKU5JpmzGACLGd== ID Date Data Source [id number] 12/03/2020 06:34:33 PM [facility] Name Value Range Interpretation Code Description Data Elizabeth rce(s) Supporting Document(s) Color of Urine [facility] Clarity of Urine [facility] Specific gravity of Urine by Refractometry automated 1.031 1.003 -1.030 [facility] pH of Urine by Automated test strip 6.0 5.0-8.0 [facility] Protein [Mass/volume] in Urine by Automated test strip Neg [facility] Glucose [Mass/volume] in Urine by Automated test strip Neg [facility] Ketones [Mass/volume] in Urine by Automated test strip Neg [facility] Bilirubin.total [Presence] in Urine by Automated test strip Negative [facility] Hemoglobin [Presence] in Urine by Automated test strip Neg [facility] Leukocyte esterase [Presence] in Urine by Automated test strip Negative [facility] Nitrite [Presence] in Urine by Automated test strip Negati ve [facility] Leukocytes [#/area] in Urine sediment by Automated count 0 /HPF 0 -5 [facility] Erythrocytes [#/area] in Urine sediment by Automated count 0 /HPF 0-3 [facility] ID Date Data Source [id number] 12/03/2020 04:59:37 PM [facility] CT ANGIOGRAPHY NECK [id number] RESULTInt erpreted by:Sri Son MDINDICATION: 40-year-old female, [...] particular the right M1 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 The major arterial tree within the neck is patent.This document has been electronically signed by Deanna Maya MD on 12/03/2020 4:57 PM Name Value Range Interpretation Code Description Data Elizabeth rce(s) Supporting Document(s) ID Date Data Source [id number] 12/03/2020 04:39:06 PM [facility] CT HEAD WITHOUT CONTRAST [id number] RESU LTInterpreted by:Sri Son [facility] INDICATION: 40-year-old female, assess for stroke, left [...] rce(s) Supporting Document(s) ID Date Data Source [id number] 12/03/2020 03:20:56 PM [facility] Name Value Range Interpretation Code Description Data Elizabeth rce(s) Supporting Document(s) Choriogonadotropin.beta subunit free [Units/volume] in Serum or Plasm a <5 [facility] (NOTE)Levels between 5 and 25 [IU]/L may indicate earlypregnancy and should be repeated after 48 hours. ID Date Data Source [id number] 12/03/2020 03:20:56 PM [facility] Name Value Range Interpretation Code Description Data Elizabeth rce(s) Supporting Document(s) Sodium [Moles/volume] in Blood 132 mmol/L 136-145 [facility] Potassium [Moles/volume] in Blood 3.7 mmol/L 3.4-5.1 [facility] Chloride [Moles/volume] in Blood 99 mmol/L 98-107 [facility] Carbon dioxide, total [Moles/volume] in Blood 23 mmol/L 22-29 [facility] Calcium.ionized [Moles/volume] in Blood 1.18 mmol/L 1.13-1.32 [facility] Glucose [Mass/volume] in Blood 65 mg/dL 70-140 [facility] Urea nitrogen [Mass/volume] in Blood 4 mg/dL 6-20 [facility] Creatinine [Mass/volume] in Blood 1.0 mg/dL 0.50-0.90 [facility] Hematocrit [Volume Fraction] of Blood 39 % 36-45 [facility] Hemoglobin [Mass/volume] in Blood by calculation 13.3 g/dL 11.5-15.5 [facility] ID Date Data Source [id number] 12/03/2020 03:20:55 PM [facility] Name Value Range Interpretation Code Description Data Elizabeth rce(s) Supporting Document(s) pH of Venous blood 7.30 7.36-7.41 L [facility] Carbon dioxide [Partial pressure] in Venous blood 46 mmHg 40-45 [facility] Oxygen [Partial pressure] in Venous blood 22 mmHg [facility] Base excess standard in Venous blood by calculation [facility] Oxygen saturation Calculated from oxygen partial pressure in Venous blood 31 % 60-85 L [facility] Lactate [Moles/volume] in Venous blood 0.8 mmol/L 0.5-2.2 [facility] Bicarbonate [Moles/volume] in Venous blood 24 mmol/L [facility] ID Date Data Source [id number] 12/03/2020 04:08:38 PM [facility] Name Value Range Interpretation Code Description Data Elizabeth rce(s) Supporting Document(s) Leukocytes [#/volume] in Blood by Automated count 12.1 10*3/uL 4-10 [facility] Erythrocytes [#/volume] in Blood by Automated count 4.16 10*6/uL 4.1- 5.3 [facility] Hemoglobin [Mass/volume] in Blood 12.9 g/dL 11.5-15.5 [facility] Hematocrit [Volume Fraction] of Blood by Automated count 37.7 % 3 6-45 [facility] Erythrocyte mean corpuscular volume [Entitic volume] by Auto mated count 90.7 fL 80-96 [facility] Erythrocyte mean corpuscular hemoglobin [Entitic mass] by Automated count 31.0 pg 27-33 [facility] Erythrocyte mean corpuscular hemoglobin concentration [Mass/volume] by Automated count 34.2 g/dL 32.0-36.0 [facility]throcyte distribution width [Ratio] by Automated count 14.4 % 11.5-14.5 [facility] Platelets [#/volume] in Blood by Automated count 321 10*3/uL 150-400 [facility] Differential cell count method - Blood [facility] Neutrophils/100 leukocytes in Blood by Automated count 66 % [facility] Lymphocytes/100 leukocytes in Blood by Automated count 24 % [facility] Monocytes/100 leukocytes in Blood by Automated count 7 % [facility] Eosinophils/100 leukocytes in Blood by Automated count 2 % [facility] Basophils/100 leukocytes in Blood by Automated count 1 % [facility] Neutrophils [#/volume] in Blood by Automated count 8.09 10*3/uL 1.8-7 .0 [facility] Lymphocytes [#/volume] in Blood by Automated count 2.93 10*3/uL 1.2-4 .0 [facility] Monocytes [#/volume] in Blood by Automated count 0.81 10*3/uL 0-0.8 [facility] Eosinophils [#/volume] in Blood by Automated count 0.21 10*3/uL 0-0.5 [facility] Basophils [#/volume] in Blood by Automated count 0.10 10*3/uL 0-0.2 [facility] Nucleated erythrocytes/100 leukocytes [Ratio] in Blood by Automated count 0 /100{WBCs} 0-0 [facility] ID Date Data Source [id number] 12/03/2020 04:26:11 PM [facility] Name Value Range Interpretation Code Description Data Elizabeth rce(s) Supporting Document(s) Prothrombin time (PT) 12.3 s 12.5-14.9 [facility] INR in Platelet poor plasma by Coagulation assay 0.91 [facility] Routine intensity oral anticoagulation I NR is typically 2.0-3.0. Target INR must be clinically individualized. ID Date Data Source [id number] 12/03/2020 04:31:06 PM [facility] Value Range Interpretation Code Description Data Elizabeth rce(s) Supporting Document(s) Bicarbonate [Moles/volume] in Serum 22 mmol/L 22-29 [facility] Chloride [Moles/volume] in Serum or Plasma 100 mmol/L 98-107 [facility] Creatinine [Mass/volume] in Serum or Plasma 0.89 mg/dL 0.50-0.90 [facility] Glucose [Mass/volume] in Serum or Plasma 59 mg/dL 70-140 [facility] Potassium [Moles/volume] in Serum or Plasma 3.9 mmol/L 3.4-5.1 [facility] Hemolyzed Sodium [Moles/volume] in Serum or Plasma 129 mmol/L 136-145 [facility] Urea nitrogen [Mass/volume] in Serum or Plasma 5 mg/dL 6-20 [facility] Anion gap 3 in Serum or Plasma 7 mmol/L 8-15 [facility] Osmolality of Serum or Plasma by calculation 263 mosm/kg 275-300 [facility] Creatinine/Urea nitrogen [Mass Ratio] in Serum or Plasma 6 [facility] Calcium [Mass/volume] in Serum or Plasma 8.2 mg/dL 8.6-10.0 [facility] Glomerular filtration rate/1.73 sq M pre dicted among non-blacks [Volume Rate/Area] in Serum or Plasma by Creatinine-based formula (MDRD) 79 mL/min/1.73m2 >60 [facility] Glomerular filtration rate/1.73 sq M pre dicted among blacks [Volume Rate/Area] in Serum or Plasma by Creatinine-based formula (MDRD) >60 [facility] ID Date Data Source [id number] 12/03/2020 04:45:31 PM [facility] Name Value Range Interpretation Code Description Data Elizabeth rce(s) Supporting Document(s) Erythrocyte sedimentation rate 5 mm/hr <20 [facility] ID Date Data Source [id number] 11/25/2020 03:26:00 AM [facility] Name Value Range Interpretation Code Description Data Elizabeth rce(s) Supporting Document(s) SARS-CoV-2 & Flu A/B Specimen Source: Nasopharynx [facility] Patient Ethnicity: Unknown [facility] ADDITIONAL INFORMATIO N This PCR test is performed using the tremaine SARS-CoV-2 andInfluenza A/B assay ([employer] on Gigathlete 6800 / 8800 Systems, and it has received EmergencyUse Authorization (EUA) by the U.S. Food and DrugAdministration.Fact sheets for this Emergency Use Authorization (EUA)assay can be found at the following links:https://www.fda.gov/media/142946/download for HealthcareProvidershttps://www.fda.gov/media/231556/download for PatientsTest Performed by:[address] [address]Vgo Director: Salvador Owens M.D. Ph.D.; CLIA# [id number] Patient Race: Unknown [facility] SARS CoV-2 RNA PCR Undetected Undetected Normal (appli es to non-numeric results) [facility] SARS-CoV-2 RNA absent. This result does not rule outCOVID-19 in the patient, as the sensitivity of the testdepends on the timing of the specimen collection and thequality of the specimen. Result should be correlated withpatient's history and clinical presentation. Influenza A RNA PCR Undetected Undetected Normal (appl ies to non-numeric results) [facility] Influenza A RNA absent. Influenza B RNA PCR Undetected Undetected Normal (appl ies to non-numeric results) [facility] Influenza B RNA absent.The above 6 shahbaz luigi were performed by [employer] ([id number]) ID Date Data Source [id number] 11/16/2020 07:37:00 PM EST [facility] PAGE: [address] [place], [place] [id number] [place] [address] [facility] REC NUM: [id number] : 1980 Med Reconciliation Patient: MADHAVI MONTALVO Medication Reconciliation Report HospitalVisitID: [id number] [place] [address] [phone], FRegistration Date/Time: 11/16/2020 19:37 Weight: 86.6 kgHeight/Length: [...] rce(s) Supporting Document(s) ID Date Data Source [id number] 11/16/2020 07:37:00 PM [facility] PAGE: [address] [place] [address] , [place] [address] [facility] REC NUM: [id number] : 1980 Physician Discharge Report Clinical Report - [facility] [address] [place] [id number] Patient: [facility]VO [facility] [id number]: F : 1980 Age: 40yArrival: 11/16/2020 19:37 [...] of a headache. Pt is coming from [facility] with hx of chronic migraines, a brain [...] other systems reviewed and are negative. PAGE: [address] [place] [address] MADHAVI MONTALVO[address] [facility] [address] REC NUM: [id number] : 1980 PAST HISTORYSee nurses notes. History [...] 98%. Temp: 98.9 F. Pain level now: 10. Appearance: Alert. Patient in mild distress. Eyes: [...] Speech normal. Cranial nerves normal (as PAGE: [address] [place] [address] NUM: [id number] : 1980 tested). No cerebellar findings. No motor deficit. No sensory deficit. LABS, X-RAYS, AND EKGLaboratory Tests: EGFR (CALCULATED): (BALAJI: 11/16/2020 20:47)( MsgRcvd 11/16/2020 21:12) Final results Test Result Flag Units (Reference)ESTIMATED GFR (CALCULATED) EGFR 80 >59 mL/min/1.73m2 EGFR, -BURKINAN 93 >59 mL/min/1.87d1Pwhi: Persistent reduction for 3 months or more [...] 276 x10E3/uL (130-400) MPV 10.0 fl PAGE: [address] [place] [address] NUM: [id number] : 1980 (8.6-12.6) SEGMENTED NEUTROPHILS 55.7 % [...] mg/dl (8.4-10.4) ALKALINE PHOSPHATASE 56 U/l PAGE: [address] [place], [place] [address] NUM: [id number] : 1980 (10-118) SGOT (AST) 14 U/l (3-40) SGPT (ALT) 15 U/l (7-50) BILIRUBIN, TOTAL 0.20 L mg/dl (0.30-1.20) BUN/CREATININE RATIO 20.2 H (6.0-20.0) GLOBULIN 1.9 L g/dl (2.3-3.5) ANION GAP 10.0 mmol/l (7.0-16.0) OSMOLALITY (CALCULATED) 276 L mos/kg (280-300) A/G RATIO 1.8 (1.0-2.0) CT Head wo IV Cont: (BALAJI: 11/16/2020 20:34)( MsgRcvd 11/16/2020 21:45) Final results Exam [id number] -- CT brain""Clinical History: Headache""Technique: Axial CT [...] The ventricles are normal in shape PAGE: [address] [place], [place] [address] [facility] [address] [facility] REC NUM: [id number] : 1980 andsize for patient age. No [...] appropriate clinical setting.""""""""""""Electronically Signed By: KARLA PEARSON HELENVILLEDate: 11/16/2020 21:43 HCG, Qual Serum: (BALAJI: 11/16/2020 20:47)( MsgRcvd 11/16/2020 21:10) Final results Test Result Flag Units (Reference), SERUM NEGATIVE (NEGATIVE) ACCULA SARS-COV-2: (BALAJI: 11/16/2020 19:48)( MsgRcvd 11/16/2020 21:21) Final results Test Result Flag Units (Reference)ACCULA SARS-COV-2 NEGATIVE PAGE: [address] [address] [place] [address] [facility] REC NUM: [id number] : 1980 (NEGATIVE) Testing performed by nucleic [...] Positive results are indicative of the presence ajTAWO-MjE-8 nucleic acid; clinical correlation with patient history andother diagnostic information is necessary to determine patient infectionstatus. Positive results do not rule out bacterial infection orco- infection with other viruses. . PROGRESS AND PROCEDURESCourse of Care: 00:20 Nov 17 2020. Symptoms better. Disposition: Discharged. CLINICAL IMPRESSIONAcute nontraumatic pain in the head. Migraine headache. Depression. INSTRUCTIONS(Drink plenty of fluids. Recommend that social services manager at [facility] evaluate patient for depression - regarding follow up care and treatment.). Warnings: Further evaluation is necessary. GENERAL WARNINGS: Return or contact your physician immediately if your condition worsens or changes unexpectedly, if not improving as expected, or if other problems arise. Follow-up:Follow up with your doctor Neuro in [place] in seven days even if well. Call for the next available appointment. Reason for referral: evaluation and treatment. Understanding of the discharge instructions verbalized by patient. PAGE: [address] [place] [address] [facility] REC NUM: [id number] : 1980 Follow-up with: Key Morrison MD, , , [facility], [address] [place] [address], [id number] up in two days even if well. Call for the next available appointment. Reason for referral: evaluation and treatment. (Electronically signed by VIDAL MELENDEZ MD 11/18/2020 02:34) Addenda MADHAVI Fang VisitID: [id number] Date: 11/16/2020 11/16/2020 21:29I, leigha Underwood, documenting [...] 21:29) 11/20/2020 13:57Levetiracetam 9.4 faxed to the [facility] fax # [phone](Electronically signed by KACEY SKELTON RN - 11/20/2020 13:57) 11/20/2020 14:05levetiracetam 9.4 faxed to [facility] fax #[phone](Electronically signed by KACEY SKELTON RN - 11/20/2020 14:05) Name Value Range Interpretation Code Description Data Elizabeth rce(s) Supporting Document(s) ID Date Data Source [id number] 11/16/2020 08:53:00 PM EST [facility] Name Value Range Interpretation Code Description Data [facility] rce(s) Supporting Document(s) WBC 8.4 x10E3/uL 4.3-10.9 [facility] pital RBC 4.12 x10E6/uL 3.80-5.30 [facility] Ho spital HEMOGLOBIN 12.6 g/dl 11.8-15.8 [facility] HEMATOCRIT 38.3 % 35.0-47.0 [facility] MCV 93.0 fl 82.0-98.0 [facility] al MCH 30.6 pg 27.5-33.5 [facility] MCHC 32.9 g/dl 32.0-36.0 [facility] RDW 13.9 % 11.5-14.5 [facility] PLATELET COUNT 276 x10E3/uL 130-400 [facility] MPV 10.0 fl 8.6-12.6 [facility] SEGMENTED NEUTROPHILS 55.7 % 44.0-74.0 [facility] LYMPHOCYTES 35.0 % 15.0-45.0 [facility] MONOCYTES 6.8 % 2.0-13.0 [facility] EOSINOPHILS 1.8 % 0.0-6.0 [facility] BASOPHILS 0.7 % 0.0-2.0 [facility] NEUTROPHIL ABSOLUTE 4.7 x10E3/uL 1.4-7.0 [facility] LYMPHOCYTES ABSOLUTE 2.9 x10E3/uL 1.0-3.4 [facility] MONOCYTE ABSOLUTE 0.6 x10E3/uL 0.2-1.0 [facility] EOSINOPHIL ABSOLUTE 0.2 x10E3/uL 0.0-0.5 [facility] BASOPHIL ABSOLUTE 0.1 x10E3/uL 0.0-0.2 [facility], [place] [address] * ID Date Data Source [id number] 11/16/2020 09:10:00 PM EST [facility] Name Value Range Interpretation Code Description Data Elizabeth rce(s) Supporting Document(s) GLUCOSE 97 mg/dl 70-100 [facility] BUN 18 mg/dl 4-18 [facility] CREATININE, SERUM 0.89 mg/dl 0.50-1.10 [facility] SODIUM 137 mmol/l 136-146 [facility] POTASSIUM 4.6 mmol/l 3.5-5.3 [facility] CHLORIDE 104 mmol/l 96-109 [facility] CARBON DIOXIDE 23 mmol/l 20-32 [facility] ospital ALBUMIN 3.5 g/dl 3.5-5.0 [facility] PROTEIN, TOTAL 5.4 g/dl 6.4-8.2 L [facility] ospital CALCIUM 8.5 mg/dl 8.4-10.4 [facility] ALKALINE PHOSPHATASE 56 U/l 10-118 [facility] SGOT (AST) 14 U/l 3-40 [facility] SGPT (ALT) 15 U/l 7-50 [facility] BILIRUBIN, TOTAL 0.20 mg/dl 0.30-1.20 L [facility] BUN/CREATININE RATIO 20.2 6.0-20.0 H [facility] GLOBULIN 1.9 g/dl 2.3-3.5 L [facility] ANION GAP 10.0 mmol/l 7.0-16.0 [facility] ital OSMOLALITY (CALCULATED) 276 mos/kg 280-300 L [facility] A/G RATIO 1.8 1.0-2.0 [facility] al R [facility], Dept of [facility] [address] [place] [address] * ID Date Data Source [id number] 11/16/2020 09:10:00 PM [facility] Name Value Range Interpretation Code Description Data Elizabeth rce(s) Supporting Document(s) , SERUM NEGATIVE NEGATIVE [facility], Dept of [facility] [address] [place] [address] * ID Date Data Source [id number] 11/16/2020 09:10:00 PM [facility] Name Value Range Interpretation Code Description Data Elizabeth rce(s) Supporting Document(s) ESTIMATED GFR (CALCULATED) [facility] EGFR 80 [facility] >59 mL/min/1.73m2 EGFR, -BURKINAN 93 [facility] >59 mL/min/1.98c2Hmay: Persistent reduction for 3 months or more in an eGFR <60 mL/min/1.73m2 defines CKD. Patients with eGFR values >=60 mL/min/1.73m2 may also have CKD if evidence of persistent proteinuria is present. Additional information may be found at [email or web address]. R [facility], Dept of [address] [place] [address] * ID Date Data Source [id number] 11/19/2020 10:06:00 AM [facility] Name Value Range Interpretation Code Description Data Elizabeth rce(s) Supporting Document(s) LEVETIRACETAM, SERUM SEE BELOW [facility] Levetiracetam, S 9.4 L ug/mL 10.0-40.0 BNThis test was developed and its performance characteristicsdetermined by [employer]. It has not been cleared or approvedby the Food and Drug Administration.-[address] [id number] ID Date Data Source [id number] 11/16/2020 09:45:07 PM EST [facility] CT brainClinical History: HeadacheTechni que: Axial CT [...] in the appropriate clinical setting.Electronically Signed By: KARLA PEARSON [facility] 11/16/2020 21:43 Name Value Range Interpretation Code Description Data Elizabeth rce(s) Supporting Document(s) ID Date Data Source [id number] 11/16/2020 07:53:00 PM EST [facility] Name Value Range Interpretation Code Description Data Elizabeth rce(s) Supporting Document(s) SARS coronavirus 2 RNA [facility] This lab was ordered by [facility] R [facility] (ER) and reported by [facility]. ID Date Data Source [id number] 11/16/2020 09:20:00 PM EST [facility] Name Value Range Interpretation Code Description Data Elizabeth rce(s) Supporting Document(s) ACCULA SARS-COV-2 NEGATIVE NEGATIVE [facility] Testing perfo rmed by nucleic acid amplification.This [...] Positive results are indicative of the presence fjNBMC-FiU-2 nucleic acid; clinical correlation with patient history andother diagnostic information is necessary to determine patient infectionstatus. Positive results do not rule out bacterial infection orco- infection with other viruses. R [facility], [place] [address] * ID Date Data Source [id number] 11/14/2020 09:40:00 AM EST [facility] Name Value Range Interpretation Code Description Data [facility]) Supporting Document(s) :PrThr:Pt:Respiratory:Ord:Probe.amp.tar [facility] This lab was ordered by [facility] in Lab Site and reported by [facility] [place]. ID Date Data Source [id number] 11/15/2020 03:11:00 PM EST [facility] Name Value Range Interpretation Code Description Data Elizabeth rce(s) Supporting Document(s) CRSP SARS-CoV-2 (RT)-PCR Assay Negative Negative N ormal (applies to non-numeric results) [facility] The [place] (U.S.) FDA has made th is test available under anemergency access mechanism called Emergency Use Authorization (EUA). TheEUA is supported by the bilingual secretary of Health and Human Services (HHSs)declaration that circumstances exist to justify the emergency use of invitro diagnostics (IVDs) for the detection and/or diagnosis of the virusthat causes COVID-19.Test performed at [facility] [place] [address]. First Test No [facility] Employed in healthcare No [facility] Symptomatic as defined by CDC No [facility] Hospitalized No [facility] lt System Resident in a congrega care setting Yes [facility] No [facility] Intensive Care No [facility] ealt System The above 8 [place] [address] ID Date Data Source [id number] 11/07/2020 12:00:00 PM EST [facility] Name Value Range Interpretation Code Description Data Elizabeth rce(s) Supporting Document(s) :PrThr:Pt:Respiratory:Ord:Probe.amp.tar [facility] This lab was ordered by [facility] in Lab [facility] and reported by [facility]. ID Date Data Source [id number] 11/12/2020 12:31:00 PM EST [facility] Name Value Range Interpretation Code Description Data Elizabeth rce(s) Supporting Document(s) CRSP SARS-CoV-2 (RT)-PCR Assay Negative Negative N ormal (applies to non-numeric results) [facility] The [place] (U.S[place] FDA has made th is test available under anemergency access mechanism called Emergency Use Authorization (EUA). TheEUA is supported by the bilingual secretary of Health and Human Services (HHSs)declaration that circumstances exist to justify the emergency use of invitro diagnostics (IVDs) for the detection and/or diagnosis of the virusthat causes COVID-19.Test performed at [facility] [place] [address]. First Test No [facility] Employed in healthcare No [facility] Symptomatic as defined by CDC No [facility] Hospitalized No [facility] Resident in a congregate care setting Yes [facility] No [facility] Intensive Care No [facility] The above 8 [place] [address] ID Date Data Source [id number] 10/26/2020 07:00:00 AM EST [facility] Name Value Range Interpretation Code Description Data Elizabeth rce(s) Supporting Document(s) :PrThr:Pt:Respiratory:Ord:Probe.amp.tar [facility] This lab was ordered by [facility] in Lab Site and reported by [facility]. ID Date Data Source [id number] 10/29/2020 05:51:00 PM EST [facility] Name Value Range Interpretation Code Description Data Elizabeth rce(s) Supporting Document(s) CRSP SARS-CoV-2 (RT)-PCR Assay Negative Negative N ormal (applies to non-numeric results) [facility] The [place] ([place].S[place] FDA has made th is test available under anemergency access mechanism called Emergency Use Authorization (EUA). TheEUA is supported by the bilingual secretary of Health and Human Services (HHSs)declaration that circumstances exist to justify the emergency use of invitro diagnostics (IVDs) for the detection and/or diagnosis of the virusthat causes COVID-19.Test performed at [facility] located at [facility] [place] [address]. First Test No [facility] Employed in healthcare No [facility] Symptomatic as defined by CDC Yes [facility] Hospitalized No [facility] lt System Resident in a congregate care setting Yes [facility] No [facility] Intensive Care No [facility] The above 8 [place] [address] ID Date Data Source [id number] 10/27/2020 10:50:00 AM EST [facility] Name Value Range Interpretation Code Description Data Elizabeth rce(s) Supporting Document(s) Levetiracetam, S 9.7 mcg/mL 12.0 - 46.0 Below low normal [facility] ADDITIONAL INFORMATIO N This test was developed and its performance characteristicsdetermined by [facility] in a manner consistent with CLIArequirements. This test has not been cleared or approved bythe U.S. Food and Drug Administration.Test Performed by:[facility] [place] [address]Daw Director: Salvador Owens M.D. Ph.D.; CLIA# [id number] above 1 analytes were performed by [facility] [employer] ([id number]) ID Date Data Source [id number] 10/24/2020 06:45:00 PM [facility] Name Value Range Interpretation Code Description Data Elizabeth rce(s) Supporting Document(s) Folate 21.61 ng/ml 5.39-9999.00 Normal (applies to non-numeric re sults) [facility] -----Interpretive Information-----Folate Deficiency: 0.35-3.37 ng/mL.Intermediate: 3.35-5.38 ng/mLNormal: >5.38 ng/mLPatients routinely receiving high-dose biotin therapy may show falselyelevated results. Additional information may be required for diagonsis.The above 1 analytes were performed by [facility] [id number] [facility], ,[place] [address] ID Date Data Source [id number] 10/24/2020 06:45:00 PM [facility] Name Value Range Interpretation Code Description Data Elizabeth rce(s) Supporting Document(s) Vitamin B12 >2000 pg/ml 211-911 Above high normal [facility] The above 1 analytes were performed by [facility] [id number] [facility], ,[place] [address] ID Date Data Source [id number] 10/24/2020 06:41:00 PM [facility] Name Value Range Interpretation Code Description Data Elizabeth rce(s) Supporting Document(s) AST 13 IU/L 15-37 Below low normal [facility] Sulfasalazine and sulfapyridine have the potential to falsely depressAspartate Aminotransferase results. Baseline values before medication administration are recommended. ALT 21 IU/L 13-56 Normal (applies to non-numeric resul ts) [facility] Sulfasalazine and sulfapyridine have the potential to falsely depressAlanine Aminotransferase results. Baseline values before medication administration are recommended. Alkaline Phosphatase 54 mIU/ml 50-136 Normal (applies to non-num capri results) [facility] Total Bilirubin 0.30 mg/dl 0.20-1.00 Normal (applies to non-numeric results) [facility] Blood Urea Nitrogen 9 mg/dl 7-18 Normal (applies to non-nume deepti results) [facility] Creatinine 0.78 mg/dl 0.51-0.95 Normal (applies to non-numeric resul ts) [facility] N-Acetylcysteine (NAC) and Metamizole velez ve the potential to falselydepress Creatinine results. Baseline values before medication adminstration are recommended. Patients undergoing treatment with phenindione will have falselydepressed results. Patients on phenindione therapy should be tested with an alternativeCREA method.Toxic levels of acetaminophen may lead to falsely depressed results forpatient samples. Glomerular Filtration Rate 81.00 mL/min/1.73m2 [facility] GFR Reference Ranges:Normal Function or Mild Renal [...] of Health and the National KidneyFoundation. The Witt method used in calculating this result is traceable to IDNY standards. Glucose 74 mg/dl 70-110 Normal (applies to non-numeric resul ts) [facility] Sulfasalazine has the potential to false ly depress Glucose results. Sulfapyridine has the potential to falsely elevate Glucose results. Baseline values before medication administration are recommended. Calcium 8.5 mg/dl 8.5-10.1 Normal (applies to non-numeric resul ts) [facility] Total Protein 5.3 g/dl 6.4-8.2 Below low normal [facility] Albumin 3.0 g/dl 3.4-5.0 Below low normal [facility] Sodium 141 mEq/L 136-145 Normal (applies to non-numeric resul ts) [facility] Potassium 4.6 mEq/L 3.5-5.1 Normal (applies to non-numeric resul ts) [facility] Chloride 110.0 mEq/L 98.0-107.0 Above high normal [facility] Carbon Dioxide 25.4 mMol/L 21.0-32.0 Normal (applies to non-numeric results) [facility] Anion Gap 10.2 7.0-15.0 Normal (applies to non-numeric resul ts) [facility] The above 16 analytes were performed by [facility] [address], ,[place] [id number] ID Date Data Source [id number] 10/24/2020 06:41:00 PM EST [facility] Name Value Range Interpretation Code Description Data Elizabeth rce(s) Supporting Document(s) TSH 0.10 uIU/ml 0.36-3.74 Below low normal [facility] Concentrations of Biotin above 100 ng/mL can potentially result ininterference.The above 1 analytes were performed by [facility] [id number] [place] [address], ,[place] [address] ID Date Data Source [id number] 10/24/2020 05:42:00 PM EST [facility] Name Value Range Interpretation Code Description Data Elizabeth rce(s) Supporting Document(s) WBC 4.69 x1000/ul 4.80-10.00 Below low normal [facility] RBC 3.74 x1Mil/ul 4.20-5.40 Below low normal [facility] Hemoglobin 11.5 g/dl 12.0-16.0 Below low normal [facility] Hematocrit 35.3 % 37.0-47.0 Below low normal [facility] MCV 94.4 fL 81.0-99.0 Normal (applies to non-numeric resul ts) [facility] MCH 30.7 pg 27.0-31.0 Normal (applies to non-numeric resul ts) [facility] MCHC 32.6 g/dl 32.2-37.0 Normal (applies to non-numeric resul ts) [facility] RDW 13.4 % 11.5-14.5 Normal (applies to non-numeric resul ts) [facility] Platelet Count 259 x1000/ul 130-400 Normal (applies to non-numeric results) [facility] MPV 11.1 fL 9.4-12.4 Normal (applies to non-numeric resul ts) [facility] Neutrophils 40.7 % 40.0-74.0 Normal (applies to non-numeric resu lts) [facility] Lymphocytes 48.0 % 19.0-48.0 Normal (applies to non-numeric resu lts) [facility] Monocytes 6.8 % 3.4-9.0 Normal (applies to non-numeric resul ts) [facility] Eosinophils 3.0 % 0.0-7.0 Normal (applies to non-numeric resu lts) [facility] Basophils 1.3 % 0.0-2.0 Normal (applies to non-numeric resul ts) [facility] Immature Granulocytes 0.2 % 0.0-0.5 Normal (applies to non-nu meric results) [facility] Nucleated RBCs 0.00 % 0.00-0.20 Normal (applies to non-numeric r esults) [facility] Abs. Neutrophils 1.91 x1000/ul 1.92-8.31 Below low normal [facility] Abs. Lymphocyte 2.25 x1000/ul 1.20-3.70 Normal (applies to non-n umeric results) [facility] Abs. Monocytes 0.32 x1000/ul 0.14-0.97 Normal (applies to non-nu meric results) [facility] Abs. Eosinophils 0.14 x1000/ul 0.00-0.76 Normal (applie s to non-numeric results) [facility] Abs. Basophils 0.06 x1000/ul 0.00-0.22 Normal (applies to non-n umeric results) [facility] Abs. Immature Gran. 0.01 x1000/ul 0.00-0.02 Normal (appl ies to non-numeric results) [facility] Abs. Nucleated RBCs 0.00 x1000/ul 0.00-0.02 Normal (appl ies to non-numeric results) [facility] The above 24 analytes were performed by [facility] [address] [place] [address], ,[place] [address] ID Date Data Source [id number] 10/18/2020 09:50:00 PM EST [facility] Name Value Range Interpretation Code Description Data Elizabeth rce(s) Supporting Document(s) SARS coronavirus 2 RNA [Presence] in Res piratory specimen by MARIAN with probe detection [facility] This lab was ordered by [facility] a nd reported by [facility]. ID Date Data Source [id number] 10/16/2020 06:05:00 PM EST [facility] Name Value Range Interpretation Code Description Data Elizabeth rce(s) Supporting Document(s) SARS coronavirus 2 RNA [facility] This lab was ordered by [facility] and reported by [facility]. ID Date Data Source [id number] 10/19/2020 08:41:[address] [facility] Name Value Range Interpretation Code Description Data Elizabeth rce(s) Supporting Document(s) COVID 19 Not Detected Not Detected [facility] This nucleic acid amplification test wa s developed and its performance characteristics determined by [facility]. Nucleic acid amplification tests include PCR [...] detected) result in this assay. Performed at: [facility] [address], [place], [place] [id number] Wharf Builder: Gabriela cMkinley PhD, Phone: [phone] ID Date Data Source [id number] 10/09/2020 12:19:00 PM EST [id number] Name Value Range Interpretation Code Description Data Elizabeth rce(s) Supporting Document(s) SARS coronavirus 2 RNA [facility] This lab was ordered by [facility] and reported by [facility]. ID Date Data Source [id number] 10/12/2020 06:57:[address] [facility] Name Value Range Interpretation Code Description Data Elizabeth rce(s) Supporting Document(s) COVID 19 Not Detected Not Detected [facility] This nucleic acid amplification test wa s developed and its performance characteristics determined by [employer]. Nucleic acid amplification tests include PCR and [...] detected) result in this assay. Performed at: [facility] [place], [place] [id number] Wharf Builder: Gabriela Mckinley PhD, Phone: [phone] ID Date Data Source [id number] 10/05/2020 02:00:00 PM EST [facility] Name Value Range Interpretation Code Description Data Elizabeth rce(s) Supporting Document(s) SARS coronavirus 2 RNA [facility] This lab was ordered by [facility] and reported by [facility]. ID Date Data Source [id number] 10/06/2020 10:39:[address] [facility] Name Value Range Interpretation Code Description Data Elizabeth rce(s) Supporting Document(s) COVID 19 Not Detected Not Detected [facility] This nucleic acid amplification test wa s developed and its performance characteristics determined by [employer]. Nucleic acid amplification tests include PCR and [...] detected) result in this assay. Performed at: [place] [facility] [place] [id number] Wharf Builder: Gabriela Mckinley PhD, Phone: [phone] ID Date Data Source [id number] 09/28/2020 12:00:00 AM EST [facility] Name Value Range Interpretation Code Description Data Elizabeth rce(s) Supporting Document(s) SARS coronavirus 2 RNA [facility] This lab was ordered by [facility] and reported by [facility]. ID Date Data Source [id number] 10/01/2020 08:00:[address] [facility] Name Value Range Interpretation Code Description Data Elizabeth rce(s) Supporting Document(s) COVID 19 Not Detected Not Detected [facility] This nucleic acid amplification test wa s developed and its performance characteristics determined by [employer]. Nucleic acid amplification tests include PCR and [...] detected) result in this assay. Performed at: [facility], [place] [id number] Wharf Builder: Gabriela Mckinley PhD, Phone: [phone] ID Date Data Source [id number] 09/21/2020 12:35:00 PM EST [facility] Name Value Range Interpretation Code Description Data Elizabeth rce(s) Supporting Document(s) SARS coronavirus 2 RNA [facility] This lab was ordered by [facility] and reported by [facility]. ID Date Data Source [id number] 09/22/2020 10:11:[address] [facility] Name Value Range Interpretation Code Description Data Elizabeth rce(s) Supporting Document(s) COVID 19 Not Detected Not Detected [facility] This nucleic acid amplification test wa s developed and its performance characteristics determined by [employer]. Nucleic acid amplification tests include PCR and [...] detected) result in this assay. Performed at: [address] [id number] Wharf Builder: Criss Gil MD, Phone: [phone] ID Date Data Source [id number] 09/14/2020 12:17:00 PM EDT [facility] Name Value Range Interpretation Code Description Data Elizabeth rce(s) Supporting Document(s) SARS coronavirus 2 [facility] This lab was ordered by [facility] and reported by [facility]. ID Date Data Source [id number] 09/16/2020 08:19:[address] [facility] Name Value Range Interpretation Code Description Data Elizabeth rce(s) Supporting Document(s) COVID 19 Not Detected Not Detected [facility] Testing was performed using the tremaine(R ) SARS-CoV-2 test. This nucleic acid amplification test was developed and its performance characteristics determined by [employer]. Nucleic acid amplification tests include PCR and [...] detected) result in this assay. Performed at: [facility] [address] [id number] Wharf Builder: Criss Gil MD, Phone: [phone] ID Date Data Source [id number] 09/10/2020 07:50:00 AM EDT [facility] Name Value Range Interpretation Code Description Data Elizabeth rce(s) Supporting Document(s) SARS coronavirus 2 RNA [facility] This lab was ordered by [facility] and reported by [facility]. ID Date Data Source [id number] 09/13/2020 10:19:[address] [facility] Name Value Range Interpretation Code Description Data Elizabeth rce(s) Supporting Document(s) COVID 19 Not Detected Not Detected [facility] Testing was performed using the tremaine(R ) SARS-CoV-2 test. This nucleic acid amplification test was developed and its performance characteristics determined by [facility]. Nucleic acid amplification tests include PCR [...] detected) result in this assay. Performed at: [facility] [address] [id number] Wharf Builder: Criss Gil MD, Phone: [phone] ID Date Data Source [id number] 08/15/2020 08:46:[address] [facility] Name Value Range Interpretation Code Description Data Elizabeth rce(s) Supporting Document(s) FREE T4 (FREE THYROXINE) 1.21 NG/DL 0.76-1.78 [facility] ID Date Data Source [id number] 08/15/2020 08:46:00 AM EDT [facility] Value Range Interpretation Code Description Data Elizabeth rce(s) Supporting Document(s) TSH 2.848 uIU/ML 0.470-4.200 [facility] Patients should not be tested for 72 ho urs post fluorescein dye angiography. A false depression of result may occur. ID Date Data Source [id number] 07/31/2020 07:49:00 AM EDT [facility] Value Range Interpretation Code Description Data Elizabeth rce(s) Supporting Document(s) FREE T4 (FREE THYROXINE) 0.84 NG/DL 0.76-1.78 [facility] ID Date Data Source [id number] 07/31/2020 07:49:00 AM EDT [facility] Value Range Interpretation Code Description Data Elizabeth rce(s) Supporting Document(s) T3FREE 2.6 PG/ML 2.3-4.2 [facility] ID Date Data Source [id number] 07/31/2020 07:49:00 AM EDT [facility] Value Range Interpretation Code Description Data Elizabeth rce(s) Supporting Document(s) TSH 0.905 uIU/ML 0.470-4.200 [facility] Patients should not be tested for 72 ho urs post fluorescein dye angiography. A false depression of result may occur. ID Date Data Source [id number] 07/26/2020 10:25:38 AM EDT [facility] Name Value Range Interpretation Code Description Data Elizabeth rce(s) Supporting Document(s) Progress Note [facility] VTILPa4tTeGLIgOy19/MCXmaCQCof6RkGOmlKAd7JTmvJUOoS5MsGCY5dS4xONU2TNbEOcMvDtUxJPDi lbm [file] nursing home+dAsbKTGwUNHYg44ZgpoPMUV2bANQanJcBN1MT5 [file] AgICAgICAgICAgICAgICAgICAgICAgICAgICAgICAg PUApBGOiUDAaFFKlHMDiTTVrCFBsTHPhCTOjMJXtREVaHYQsXSUkZMCxKIQxEXEoUQFvBBBgYV6HCDZq ICAgICAgICAgICAgICAgICAgICAgICAgICAgICAgICAgICAgICAgICAgICAgICAgICAgICAgICAgICAg ICAgICAgICAgICAgICAgICAgICAgICAgICAgICAgIC BtFILvQO0XFWEcKXRuLSMeLIRwJJOlPLCaOIMdKSFhUMEiMDYtQCBaRPBeLZTaYGQbLTWqPXDeASRnQN GfAQHtMBXeMFBlMQAyZRQxYRFqUZQsWXIpQANiFGVtQLZaFYPnSLRbEEHdLDAoNZ6ZRHJiWHAeZCFlRU AgICAgICAgICAgICAgICAgICAgICAgICAgICAgICAg INDxFIPrFZBaSXLnMPXlIUMwDKGaBKLfHLYqRUKqCSNhENUdWMOmPBKcPWQzPKFfXCLvZWWiULVaSF6V ICAgICAgICAgICAgICAgICAgICAgICAgICAgICAgICAgICAgICAgICAgICAgICAgICAgICAgICAgICAg ICAgICAgICAgICAgICAgICAgICAgICAgICAgICAgIC GcGLImCYDpZH7IPDYpRJUgNAFgRRSkXKEtIUEeCVWmOGByPUUjVUMmWXFbOJIzQOAsQLBfGNRuDAYlGL NrEXUsWJYbJEArQGNqQYYgVCOvLSPhUVTgTTVtLJNvBGQvPWHvDKBpNQDmJRLyYYQjBT4ZCLAkQCWjVC AgICAgICAgICAgICAgICAgICAgICAgICAgICAgICAg ICAgICAgICAgICAgICAgICAgICAgICAgICAgICAgICAgICAgICAgICAgICAgICAgICAgICAgICAgICAg AR4JJZTbKEIzCRQrWLPgAHUzYPXbVZUjDHDlUULtCDOgLCBpDIUzIRRdZBZrSCJqFYIhQVCxNDGbNZWp ICAgICAgICAgICAgICAgICAgICAgICAgICAgICAgIC GnVBNjJLPcCTSrQQ1HLBXlCRAzFUKdCRIvEXHyQDVsADHxVAMoARAbJTJjEATjDCElZNEmKPNcHGAxAU IoGJEiVLLwBQEdTPJpAOEsQIUzXBAxRDUkHWWjQGMbOGTcFKMtDVUbWDYnCZJxZISxLBMjSX9MLX69yS Agw2R7MXXpPA6pggl/Lw2KKJdlefQgvGHpAL1HAmGb LF9prq4XPvMrFI1msf2WPHsFSsKoQ8Z6cWTkQPXdXYBRCgWsC66qXDwxSw95GKyxYLXwSaIuJFg4Nf5H OdSgG6uhRFXfLeK8ICSxHzS2HFBgPwR5NMWhKiCvKSYnLQYqAVCbZCSJYOT5WVWuHpKzWfJrOCEwWIgs UFEQPTXkQEJmMvLkPjKpJFNnYjSuHVIVYK9VRbPfU1 XbwF78FJZxKDp+Bv2GEU1ne7IyOXr4IjYyOH2hww2GXPbCTpNoP7SsueL8JLWsEIDtZx6NTBZeHERhyC H3DgEfPWCLUmWaP8JbdC44FKVHXi8+OMkdmwDsZpsNPqBgAQPfv7TsKDl5JW7XKADmGFv9wZUvZSEkH7 Fzl5EjMf09QKWiJskwUvUkkgUsOVTAl1DgxSVtEN4H QAT8LEfdFMEsRaOuGGYmJGjeFLRDOAwWNwOzM7Sat9YpSmE8CCUcBaUlHZtkBTPlWyQ8WD17fPslHP7S PTLsMPTnTJ15KMIgYXPqOb1PPb0KLaEwZU4qnt2QNNUhYQIaJadUAiu8XJtgOT7XnYThF4TjfIOmx1vY IiFlF3ZQKKZyOKGvDo5YZDGaHnQuJHHpFKujAT5bPR OoTJTWmUzbdxQ2LR2LCG9jrmIeEA4ZZhVqXv5zWc4PUzEoR6OoZ8PrGGFtVQOZSFdqCY9HPUurTA3rXZ 5Kf5PYsFMpkV5ktd1ZNZFmEKNoGeyrsv4YHifoY3A9eLrjIBDeIXPnNVVTEFpqOX3BQFHsMEU4NLI0YU XcJZENGwDwC01vQF6LQ2Nfo53kLlB4UUNuJeHmRQpd EB59lQljjjZqxDTtwHvyEX4CWh6+AZzatlKrQavXRnmeTNAZBeSaVCOQBdCnZYNlIUIyAPTaYcZ2HeZj Jm8PZOMcXUOwPIAdZaJvUXCsSMMxPOaxNFUkWLL2HhH9GLFtKUNjTA9CUcJxQOQtFKpeZAXbZAUiOACc aj8WLZIoJVPiKKM5YrQvQRHfKQIbQYbaTARhLLW5RJ C8TZGgVXWsHQ3PDhNuQXWfLIK2MWumWQOgQFNcho4MDVNcRMSbAjJ8PSGcKOSvJDKlMFijGKPuDOU8Bj s0CPVqPZGnSJ8KAvYqDHOxMWB5PHFcDVYiKCWtxt2RNSKuDPVcLKO2DHDvEIMrHRZwMPdpRHXlEYG3Xh Q6XVNxFIKcQG5SInGwNNAlSYG5HMFlLCYfTENedf0W LGEnOUBbXaE2UYJbNIMrPZRtFAiwAOUkVIN6YQS5EWJaEQOnFI4SPtOxZWOyRWu6IRugVTWrKDHplc1M KQBwNWHoKAJjLhFtJYSdJUFzCLwcZIRrAIYcEwN2RTRjYQIaPH7XIfOoMJIyTfD5GpUqYPHhGORzse1P LFHaVWZtLqytNMPdPPOnAHMxUMirJMFwIQR5NDU2XV OxZTGvJN6QQiLmUDFsWfcaNrOeYJXnQMJpei7FDTNlNJMuRpZvLMMgFOVoOFLkDKzfVGVjNCX3Bqe3TK AfGZCjBV4FEjPzJHOnOsq4DCZqQNNcAYUrid0HEMAzJCCxMYa7HADzAGAgEPUcXHjzTNTgDVMoORd6MX QwDSZmNR7QNiIoEJOiQmD7UcOtGMRhWHQrxb4DWPGm JWEaHmGkFkJpITTcDKLaXSgjNAIyVLVxNzH4MGUpBLFtQB5LVxHnHIGsVwZlJlCfOWEvOFOvas3XUIZx DLKwKtK7DcFmGJToYBUxKVdnKAIfMOFnEmK7VTXfKHVjOO6HXaGlDZVqIDGkSUXpTHJqERGzzn3QTTCw MGK7LODgEOOfXECoEPQaBQggFWLfEGC0EzM0QRWeML MlDA5XFwRcHUUxAYO9MbryNQAuABVuff5ZEYKcRDU8HcXzOWZeOQYvOZBtXMrzKCWvFCV3UYZ0IUVjVB WrEP7YJhCnAMJoTVnrVUknVKBoUIMajb4MBXDcXBO2AzKsHHCzUJGlGRHmWRpnYXYmGWB1QmOlIHJaZG AyTZ0EIgMnPVStIZjkJMtfBFEiOICxpg4YVOIhMOZ9 DGLdLCQlBPVzSBSwHElxNNWxFHN8VNo7CMFdAEXoQM8MSsXaQWtfCNZLHyo6ZCjhZ9z4LSG4CS9JH9Ub c6MnZFGxVOYBPViiXM8tmhFlQWNrVo5ME2aODrlnYWHsKvwhOEU9PRG5NFD3GGOaDsKkTcOaEzZ8XDNm Dz5wLJZ2BMXsMYA8OWEvZwatQUU5LBOrEKVeJgOpZk upLTBiKpMsKY0EOn8GFkA3VQM4sXCdDf8JNNg0ZhTLNiPdHT7YPJb= ID Date Data Source [id number] 07/17/2020 06:24:00 PM EDT [facility] Name Value Range Interpretation Code Description Data Elizabeth rce(s) Supporting Document(s) SARS coronavirus 2 RNA [facility] This lab was ordered by [facility] and reported by [facility]. ID Date Data Source [id number] 07/19/2020 06:11:[address] [facility] Name Value Range Interpretation Code Description Data Elizabeth rce(s) Supporting Document(s) COVID 19 Not Detected Not Detected [facility] This nucleic acid amplification test wa s developed and its performance characteristics determined by [employer]. Nucleic acid amplification tests include PCR and [...] detected) result in this assay. 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, Marijuana and Methamphetamine Occupation: disabled Lives with: Reports Prison PMH/PSH PMH/PSH Medical History Acute respiratory failure [...] File>> Initializing User: Radha Malin NP 06/20/20 [id number] Signed by: Radha Malin NP 06/26/20 3946 Vickie Arnold MD 06/26/20 1822 Name Value Range Interpretation Code Description Data Elizabeth rce(s) Supporting Document(s) ID Date Data Source [id number] 06/18/2020 07:55:00 AM EDT [facility] Name Value Range Interpretation Code Description Data Elizabeth rce(s) Supporting Document(s) WHITE BLOOD COUNT 5.31 10^3/uL 4.00-10.50 [facility] RED BLOOD COUNT 3.87 10^6/uL 3.90-5.20 [facility] HEMOGLOBIN 11.2 G/DL 11.5-15.6 L [facility] HEMATOCRIT 33.0 % 35.0-46.0 L [facility] MCV 85.3 FL 80.0-100.0 N [facility] MCH 28.9 PG 27.0-34.0 [facility] MCHC 33.9 G/DL 32-36 N [facility] RDW 14.4 % 11.5-14.5 N [facility] PLATELET COUNT 212 10^3/uL 130-400 N [facility] MPV 11.8 FL 8.7-13.2 N [facility] GRAN % (AUTO) 48.2 % 42.0-75.0 N [facility] LYMPH % (AUTO) 40.5 % 20.0-51.0 N [facility] MONO % (AUTO) 6.8 % 2.0-15.0 N [facility] EOS % (AUTO) 3.0 % 0.0-11.0 [facility] BASO % (AUTO) 1.3 % 0.0-2.0 [facility] IG % (AUTO) 0.2 % 1.00-5.00 [facility] IG # (AUTO) 0.0 10^3/uL <0.5 [facility] GRAN # (AUTO) 2.56 10^3/uL 1.50-6.50 N [facility] LYMPH # (AUTO) 2.2 k/uL 1.0-5.0 [facility] MONO # (AUTO) 0.36 k/uL 0.20-1.50 [facility] EOS # (AUTO) 0.16 10^3/uL 0.00-1.[address] [facility] BASO # (AUTO) 0.07 10^3/uL 0.00-0.[address] [facility] ID Date Data Source [id number] 06/18/2020 08:23:[address] [facility] Name Value Range Interpretation Code Description Data Elizabeth rce(s) Supporting Document(s) SODIUM 136 MEQ/L 135-[address] [facility] POTASSIUM 4.4 MEQ/L 3.5-5.[address] [facility] CHLORIDE 101 MEQ/L 94-[address] [facility] CARBON DIOXIDE 25 MEQ/L 22-[address] [facility] ANION GAP 14 5-[address] [facility] BLOOD UREA NITRO 9 MG/DL 7-[address] [facility] CREATININE 0.6 MG/DL 0.6-1.[address] [facility] GFR > 90.0 ML/MIN [facility] Stage G1 - Normal or high kidney functi on The GFR is an estimate of the Glomerular Filtration Rate. It is an aid to assess a patient's renal function. It is not a conclusive diagnosis of kidney disease. GFR normal is >=90 The MDRD GFR calculation is considered valid between the ages of 18 and 75 years only. BUN/CREAT RATIO 15 8-36 [facility] GLUCOSE 79 MG/DL 70-[address] [facility] CA 8.9 MG/DL 8.7-10.5 [facility] BILIRUBIN,TOTAL 0.3 MG/DL 0.1-1.[address] [facility] AST 24 U/L 5-[address] [facility] ALT 37 U/L 5-48 [facility] ALKALINE PHOSPHATASE 86 U/L 40-[address] [facility] alth TOTAL PROTEIN 5.2 G/DL 5.9-8.[address] [facility] ALBUMIN 3.6 G/DL 3.0-5.[address] [facility] GLOBULIN 1.6 G/DL 1.5-3.[address] [facility] ALB/GLOB RATIO 2.3 G/DL 1.0-3.[address] [facility] ID Date Data Source [id number] 06/18/2020 08:23:[address] [facility] Name Value Range Interpretation Code Description Data Elizabeth rce(s) Supporting Document(s) MAGNESIUM 1.7 mg/dl 1.8-2.[address] [facility] ID Date Data Source [id number] 06/18/2020 08:23:[address] [facility] Name Value Range Interpretation Code Description Data Elizabeth rce(s) Supporting Document(s) FREE T4 (FREE THYROXINE) 1.02 NG/DL 0.76-1.78 [facility] ID Date Data Source [id number] 06/18/2020 08:23:[address] [facility] Name Value Range Interpretation Code Description Data Elizabeth rce(s) Supporting Document(s) T3FREE 3.4 PG/ML 2.3-4.[address] [facility] ID Date Data Source [id number] 06/18/2020 08:23:[address] [facility] Name Value Range Interpretation Code Description Data Elizabeth rce(s) Supporting Document(s) TSH 0.843 uIU/ML 0.470-4.[address] [facility] Patients should not be tested for 72 ho urs post fluorescein dye angiography. A false depression of result may occur. ID Date Data Source [id number] 06/13/2020 07:26:[address] [facility] Name Value Range Interpretation Code Description Data Elizabeth rce(s) Supporting Document(s) WHITE BLOOD COUNT 6.26 10^3/uL 4.00-10.50 N [facility]alth RED BLOOD COUNT 3.53 10^6/uL 3.90-5.20 L [facility] th HEMOGLOBIN 10.2 G/DL 11.5-15.[address] [facility] HEMATOCRIT 30.1 % 35.0-46.[address] [facility] MCV 85.3 FL 80.0-100.[address] [facility] MCH 28.9 PG 27.0-34.[address] [facility] MCHC 33.9 G/DL 32-[address] [facility] RDW 14.4 % 11.5-14.5 [facility] PLATELET COUNT 259 10^3/uL 130-[address] [facility] MPV 11.6 FL 8.7-13.[address] [facility] GRAN % (AUTO) 42.7 % 42.0-75.[address] [facility] LYMPH % (AUTO) 43.6 % 20.0-51.0 N [facility] MONO % (AUTO) 8.6 % 2.0-15.0 N [facility] EOS % (AUTO) 3.7 % 0.0-11.0 N [facility] BASO % (AUTO) 1.1 % 0.0-2.0 N [facility] IG % (AUTO) 0.3 % 1.00-5.00 [facility] IG # (AUTO) 0.0 10^3/uL <0.5 [facility] GRAN # (AUTO) 2.67 10^3/uL 1.50-6.50 [facility] LYMPH # (AUTO) 2.7 k/uL 1.0-5.0 [facility] MONO # (AUTO) 0.54 k/uL 0.20-1.50 N [facility] EOS # (AUTO) 0.23 10^3/uL 0.00-1.10 [facility] BASO # (AUTO) 0.07 10^3/uL 0.00-0.20 N [facility] ID Date Data Source [id number] 06/13/2020 07:36:00 AM EDT [facility] Name Value Range Interpretation Code Description Data Elizabeth rce(s) Supporting Document(s) SODIUM 135 MEQ/L 135-145 N [facility] POTASSIUM 4.2 MEQ/L 3.5-5.3 N [facility] CHLORIDE 102 MEQ/L 94-110 [facility] CARBON DIOXIDE 27 MEQ/L 22-33 N [facility] ANION GAP 10 5-16 N [facility] BLOOD UREA NITRO 14 MG/DL 7-25 N [facility] CREATININE 0.7 MG/DL 0.6-1.4 N [facility] GFR > 90.0 ML/MIN [facility] Stage G1 - Normal or high kidney functi on The GFR is an estimate of the Glomerular Filtration Rate. It is an aid to assess a patient's renal function. It is not a conclusive diagnosis of kidney disease. GFR normal is >=90 The MDRD GFR calculation is considered valid between the ages of 18 and 75 years only. BUN/CREAT RATIO 20 8-36 N [facility] GLUCOSE 74 MG/DL 70-100 N [facility] CA 8.7 MG/DL 8.7-10.[address] [facility] BILIRUBIN,TOTAL 0.2 MG/DL 0.1-1.[address] [facility] AST 17 U/L 5-[address] [facility] ALT 27 U/L 5-48 [facility] ALKALINE PHOSPHATASE 89 U/L 40-[address] [facility] alth TOTAL PROTEIN 4.9 G/DL 5.9-8.[address] [facility] ALBUMIN 3.6 G/DL 3.0-5.1 [facility] GLOBULIN 1.3 G/DL 1.5-3.[address] [facility] ALB/GLOB RATIO 2.8 G/DL 1.0-3.0 [facility] ID Date Data Source [id number] 06/07/2020 11:19:00 PM EDT [facility] Name Value Range Interpretation Code Description Data Elizabeth rce(s) Supporting Document(s) SARS-CoV-2 (COVID-19) N gene [Presence] in Nasopharynx by MARIAN with probe detection [facility] This lab was ordered by [facility] and reported by [facility]. ID Date Data Source [id number] 06/08/2020 02:24:[address] [facility] COVID Reason [place] Admission Priority #4 Name Value Range Interpretation Code Description Data Elizabeth rce(s) Supporting Document(s) COVID 19 (RHEONIX) NOT-DETECTED NOTDETECTED [facility] The COVID testing using the Rheonix manuel [...] public health authorities. 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 Occupation: disabled Lives with: Reports Prison PMH/PSH PMH/PSH Medical History Acute respiratory failure [...] Tenderness Extremities: negative Edema and Tenderness Skin: assessment director reviewed and agreed with; negative Lesions and [...] MPV Gran % (Auto) Lymph % (Auto) [place] % (Auto) Eos % (Auto) Baso % (Auto) Nucleat RBC Rel Count Gran # Lymph # (Auto) [place] # (Auto) Eos # (Auto) Baso # (Auto) Immature Gran # (Auto) Absolute Nucleated RBC Immature Gran % Sodium Potassium Chloride Carbon Dioxide Anion Gap BUN Creatinine Estimated GFR (MDRD) BUN/Creatinine Ratio Glucose Calcium Total Bilirubin AST ALT Alkaline Phosphatase Total Protein Albumin Globulin Albumin/Globulin Ratio Beta HCG Screen NEGATIVE Urine Color YELLOW Urine Appearance CLEAR Urine pH 6.0 Specific Index (Man) 1.004 Urine Protein NEGATIVE Urine Glucose [...] % (Auto) 46.6 Lymph % (Auto) 43.3 [place] % (Auto) 5.8 Eos % (Auto) 2.9 Baso % (Auto) 1.2 Nucleat RBC Rel Count N ot Reportable Gran # 3.05 Lymph # (Auto) 2.8 [place] # (Auto) 0.38 Eos # (Auto) 0.19 [...] Urine Color Urine Appearance Urine pH Specific Index (Man) Urine Protein Urine Glucose (UA) Urine [...] charges for this visit?: Yes Inpt Consult [id number] Cons Level 4: Yes Signed By:Justin Bone Jr, MD <<Signature on File>> Signed Date/Time: 06/07/202317 Co-Signer: Co-Signed Date/Time: Initializing User: Justin Bone Jr, MD 0 06/07/202309 09 09 Name Value Range Interpretation Code Description Data Elizabeth rce(s) Supporting Document(s) ID Date Data Source [id number] 06/07/2020 09:24:00 PM EDT [facility] Name Value Range Interpretation Code Description Data Elizabeth rce(s) Supporting Document(s) COLOR,UR YELLOW YELLOW [facility] APPEARANCE,UR CLEAR CLEAR [facility] PH,UR 6.0 5.0-8.0 [facility] SPECIFIC GRAVITY,UR 1.004 1.002-1.035 N [facility] PROTEIN,UR NEGATIVE MG/DL NEGATIVE [facility] GLUCOSE, UR NEGATIVE MG/DL NEGATIVE [facility] KETONES,UR NEGATIVE MG/DL NEGATIVE [facility] OCCULT BLOOD,UR NEGATIVE NEGATIVE [facility] NITRATE,UR NEGATIVE NEGATIVE [facility] LEUKOCYTE ESTERASE ,UR NEGATIVE NEGATIVE [facility] BILIRUBIN,UR NEGATIVE NEGATIVE [facility] UROBILINOGEN,UR 0.2-1.0 EU MG/DL NEG-0-1.0 [facility] ID Date Data Source [id number] 06/07/2020 09:30:00 PM EDT [facility] Name Value Range Interpretation Code Description Data [facility] rce(s) Supporting Document(s) OPIATE SCREEN POS NEGATIVE [facility] Minimum Detectable Limit is 300 ng/mL. BARBITURATE SCREEN NEG NEGATIVE [facility] Minimum Detectable Limit is 300 ng/mL. PHENCYCLIDINE SCREEN NEG NEGATIVE [facility] Minimum Detectable Limit is 25 ng/mL. AMPHETAMINE SCREEN NEG NEGATIVE [facility] Minimum Detectable Limit is 1000 mg/mL. BENZODIAZEPINE SCREEN NEG NEGATIVE [facility] Mininum Detectable Limit is 300 ng/mL. COCAINE SCREEN NEG NEGATIVE [facility] Minimum Detectable Limit is 300 ng/mL. CANNABINOID SCREEN NEG NEGATIVE [facility] Minimum Detectable limit is 50 ng/dL. HEROIN SCREEN NEG NEGATIVE [facility] Minimum Detectable limit is 10 ng/dL. A ll POSITIVE or BORDER results are unconfirmed. Please contact the laboratory if a reference testing confirmation is needed. ID Date Data Source [id number] 06/07/2020 09:32:00 PM [facility] Has Patient Fasted For The Past 12 [...] rce(s) Supporting Document(s) HCG QUALITATIVE SPECIMEN SERUM [facility] ID Date Data Source [id number] 06/07/2020 09:32:00 PM [facility] Has Patient Fasted For The Past 12 [...] Elizabeth rce(s) Supporting Document(s) HCG RESULT,S NEGATIVE [facility] Reference range is Negative "Extreme" early may have low levels of HCG present. If is suspected, repeat testing with a new specimen in 48-72 hours ID Date Data Source [id number] 06/07/2020 09:19:00 PM [facility] Has Patient Fasted For The Past 12 [...] WHITE BLOOD COUNT 6.54 10^3/uL 4.00-10.50 N [facility] ealth RED BLOOD COUNT 3.52 10^6/uL 3.90-5.20 L [facility] th HEMOGLOBIN 10.2 G/DL 11.5-15.6 L [facility] HEMATOCRIT 30.1 % 35.0-46.0 L [facility] MCV 85.5 FL 80.0-100.0 N [facility] MCH 29.0 PG 27.0-34.0 N [facility] MCHC 33.9 G/DL 32-36 N [facility] RDW 14.4 % 11.5-14.5 N [facility] PLATELET COUNT 287 10^3/uL 130-400 N [facility] MPV 10.8 FL 8.7-13.2 N [facility] GRAN % (AUTO) 46.6 % 42.0-75.0 N [facility] LYMPH % (AUTO) 43.3 % 20.0-51.0 N [facility] MONO % (AUTO) 5.8 % 2.0-15.0 N [facility] EOS % (AUTO) 2.9 % 0.0-11.0 N [facility] BASO % (AUTO) 1.2 % 0.0-2.0 N [facility] IG % (AUTO) 0.2 % 1.00-5.00 [facility] IG # (AUTO) 0.0 10^3/uL <0.5 [facility] GRAN # (AUTO) 3.05 10^3/uL 1.50-6.50 N [facility] LYMPH # (AUTO) 2.8 k/uL 1.0-5.0 N [facility] MONO # (AUTO) 0.38 k/uL 0.20-1.50 N [facility] EOS # (AUTO) 0.19 10^3/uL 0.00-1.10 N [facility] BASO # (AUTO) 0.08 10^3/uL 0.00-0.20 N [facility] ID Date Data Source [id number] 06/08/2020 09:14:00 AM EDT [employer] [employer] Has Patient Fasted For The Past 12 [...] Supporting Document(s) SODIUM 135 MEQ/L 135-[address] [facility] POTASSIUM 4.5 MEQ/L 3.5-5.[address] [facility] CHLORIDE 104 MEQ/L 94-[address] [facility] CARBON DIOXIDE 25 MEQ/L 22-[address] [facility] ANION GAP 11 5-[address] [facility] BLOOD UREA NITRO 12 MG/DL 7-[address] [facility] CREATININE 0.7 MG/DL 0.6-1.[address] [facility] GFR > 90.0 ML/MIN [facility] Stage G1 - Normal or high kidney functi on The GFR is an estimate of the Glomerular Filtration Rate. It is an aid to assess a patient's renal function. It is not a conclusive diagnosis of kidney disease. GFR normal is >=90 The MDRD GFR calculation is considered valid between the ages of 18 and 75 years only. BUN/CREAT RATIO 17 8-36 [facility] GLUCOSE 89 MG/DL 70-[address] [facility] CA 8.4 MG/DL 8.7-10.[address] [facility] BILIRUBIN,TOTAL < 0.2 MG/DL 0.1-1.3 N [facility] h AST 20 U/L 5-[address] [facility] ALT 28 U/L 5-48 [facility] ALKALINE PHOSPHATASE 95 U/L 40-[address] [facility] alth TOTAL PROTEIN 5.0 G/DL 5.9-8.[address] [facility] ALBUMIN 3.4 G/DL 3.0-5.[address] [facility] GLOBULIN 1.6 G/DL 1.5-3.5 [facility] ALB/GLOB RATIO 2.1 G/DL 1.0-3.0 [facility] ID Date Data Source [id number] 06/08/2020 09:14:[address] [facility] Has Patient Fasted For The Past [...] Supporting Document(s) IRON 72 UG/DL 35-[address] [facility] TIBC 262 UG/DL 260-[address] [facility] % IRON SATURATION 27.0 % 20-50 N [facility] h ID Date Data Source [id number] 06/08/2020 09:14:00 AM [facility] Has Patient Fasted For The Past 12 [...] Document(s) Vitamin D,25-HYDROXY 27.9 ng/ml 30-100 L [facility] ealt Vitamin D Status Range De ficiency <20 ng/ml Insufficiency 20-29.9 ng/ml Sufficiency 30-100 ng/ml Toxicity >100 ng/ml Patients should not be tested for 72 hours post fluorescein dye angiography. A false elevation of result may occur. ID Date Data Source [id number] 06/08/2020 09:14:00 AM [facility] Has Patient Fasted For The Past 12 [...] T4 (FREE THYROXINE) 0.75 NG/DL 0.76-1.78 L [employer] [facility] ID Date Data Source [id number] 06/08/2020 09:14:00 AM [facility] Has Patient Fasted For The Past 12 [...] Supporting Document(s) T3FREE 2.1 PG/ML 2.3-4.[address] [facility] ID Date Data Source [id number] 06/08/2020 09:14:00 AM [facility] Has Patient Fasted For The Past 12 [...] Supporting Document(s) TSH 2.950 uIU/ML 0.470-4.200 N [facility] Patients should not be tested for 72 ho urs post fluorescein dye angiography. A false depression of result may occur. ID Date Data Source [id number] 06/08/2020 09:14:00 AM [facility] Fasted For The [...] Document(s) SALICYLATE < 3.0 MG/DL 2.8-20.[address] [facility] ID Date Data Source [id number] 06/08/2020 09:14:[address] [facility] Has Patient Fasted For The Past [...] Supporting Document(s) ACETAMINOPHEN 5.2 UG/ML 10-[address] [facility] High levels of N-acetylcysteine (used t o treat Acetaminophen overdose) may cause interference and cause a negative bias in the Acetaminophen result. ID Date Data Source [id number] 06/08/2020 09:14:[address] [facility] Has Patient Fasted For The Past [...] Supporting Document(s) BLOOD ALCOHOL 0.00 % <0.[address] [facility] ID Date Data Source [id number] 05/09/2020 03:34:00 [place] [address] HEALTH INFORMATION MANAGEMENT ED/ Physician Report : [id number] Signed Patient: Madhavi Montalvo Acct:[id number] Unit: [id number] : 1980 Arrival Date: 05/09/20 Age/Sex: 39 [...] CT that was normal. 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 Waiting for placement current History of Smoking/Tobacco Use: Former Smoker Alcohol use: Reports History of use Drug use: Reports History of use Occupation: disabled Lives with: Reports Prison PMH/PSH PMH/PSH Medical History Acute respiratory failure [...] Normal Affect Skin Skin exam: Dry, Intact, [place] and Warm Course Course Course Narrative: For this headache which sounds like a tension migraine, we will give her [id number] mg added to 1 bag of saline [...] 0 bisacodyl 10 mg Suppository 10 mg SD DAILY PRN (Reason: Constipation) RF: 0 pantoprazole [...] [id number] Signed by: Vickie Arnold MD 05/09/20 1147 Name Value Range Interpretation Code Description Data Elizabeth rce(s) Supporting Document(s) ID Date Data Source [id number] 04/18/2020 10:31:00 AM [facility] Run: 04/18/20 1031 INTERFACED REPORT Name: Madhavi Montalvo Age/Sex: 39/F Location: [facility] Acct: [id number] Unit: [id number] Status: REG REF Room/Bed: Re04/16/20 Disch: Att Dr: Key Scott MD Specimen #: [id number] Ordered : 04/16/2012/05/2053 Collected : 04/16/2012/05/2053 By: [...] Value Range Interpretation Code Description Data Elizabeth [facility](s) Supporting Document(s) ID Date Data Source [id number] 04/16/2020 03:33:00 PM EDT [facility] ([facility] Name Value Range Interpretation Code Description Data Elizabeth e(s) Supporting Document(s) Bacteria identified in Urine by Culture Laboratory test result [facility]ERIN ([facility]) <content> --------</content>
<content>Run: 04/18/20 1031 INTERFACED REPORT</content>
<content> </content>
<content>Name: Madhavi Montalvo Age/Sex: 39/F Location: [facility]</content>
<content>Acct: [id number] Unit: [id number] Status: REG REF Room/Bed:</content>
<content>Re04/16/20 Disch: Glenn Dr: Key Scott MD</content>
<content> </content>
<content></content>
<content>Specimen #: [id number] Ordered : 04/16/2012/05/2053</content>
<content>Collected : 04/16/2012/05/2053 By: [...] REPORT </content>
<content></content> ID Date Data Source [id number] 04/16/2020 02:13:00 PM EDT [facility] ([facility]) Name Value Range Interpretation Code Description Data Elizabeth rce(s) Supporting Document(s) Glucose [Presence] in Urine Laboratory test result [facility] ([facility]) Protein [Presence] in Urine by Test strip Laboratory test result [facility] ([facility]) Ua Nitrite Laboratory test result ME DENT ([facility]) Ua Leuko Laboratory test result [facility] DENT ([facility]) Ketones [Presence] in Urine by Test strip Laboratory test result [facility] ([facility]) Color of Urine Laboratory test result [facility] ([facility]) Blood [Presence] in Urine by Visual Laboratory test result [facility] ([facility]) Clarity of Urine Laboratory test result [facility] ([facility]) pH of Urine by Test strip 6.0 5.0-7.5 [facility] ([facility]) Ua Specific Index 1.010 1.003-1.030 MEDE NT ([facility]) Urobilinogen [Mass/volume] in Urine by Test strip 0.2 E.U./dL 0.0-1.0 [facility] ([facility]) Bilirubin.total [Presence] in Urine by Test strip Laboratory test res ult [facility] ([facility]) ID Date Data Source [id number] 04/08/2020 09:00:00 AM EDT [facility] Name Value Range Interpretation Code Description Data Elizabeth rce(s) Supporting Document(s) SARS-CoV-2 RNA Resp Ql MARIAN+probe [facility] This lab was ordered by [facility] and reported by MARICEL. ID Date Data Source [id number] 04/05/2020 08:15:00 AM EDT [facility] Name Value Range Interpretation Code Description Data Elizabeth rce(s) Supporting Document(s) WHITE BLOOD COUNT 6.63 10^3/uL 4.00-10.50 N [facility] RED BLOOD COUNT 3.91 10^6/uL 3.90-5.20 N [facility] HEMOGLOBIN 11.4 G/DL 11.5-15.6 L [facility] HEMATOCRIT 33.7 % 35.0-46.0 L [facility] MCV 86.2 FL 80.0-100.0 [facility] MCH 29.2 PG 27.0-34.0 N [facility] MCHC 33.8 G/DL 32-36 N [facility] RDW 13.0 % 11.5-14.5 N [facility] PLATELET COUNT 213 10^3/uL 130-400 [facility] MPV 11.0 FL 8.7-13.2 N [facility] GRAN % (AUTO) 35.9 % 42.0-75.0 L [facility] LYMPH % (AUTO) 53.1 % 20.0-51.0 H [facility] MONO % (AUTO) 6.9 % 2.0-15.0 N [facility] EOS % (AUTO) 2.6 % 0.0-11.0 N [facility] BASO % (AUTO) 1.2 % 0.0-2.0 N [facility] IG % (AUTO) 0.3 % 1.00-5.00 [facility] IG # (AUTO) 0.0 10^3/uL <0.5 [facility] GRAN # (AUTO) 2.38 10^3/uL 1.50-6.50 N [facility] LYMPH # (AUTO) 3.5 k/uL 1.0-5.0 N [facility] MONO # (AUTO) 0.46 k/uL 0.20-1.50 N [facility] EOS # (AUTO) 0.17 10^3/uL 0.00-1.10 N [facility] BASO # (AUTO) 0.08 10^3/uL 0.00-0.20 N [facility] ID Date Data Source [id number] 04/05/2020 08:23:00 AM EDT [facility] Name Value Range Interpretation Code Description Data Elizabeth rce(s) Supporting Document(s) SODIUM 145 MEQ/L 135-145 N [facility] POTASSIUM 4.0 MEQ/L 3.5-5.3 N [facility] CHLORIDE 111 MEQ/L 94-110 [facility] CARBON DIOXIDE 27 MEQ/L 22-33 N [facility] ANION GAP 11 5-16 N [facility] BLOOD UREA NITRO < 5 MG/DL 7-25 L [facility] CREATININE 0.7 MG/DL 0.6-1.4 N [facility] GFR > 90.0 ML/MIN [facility] Stage G1 - Normal or high kidney functi on The GFR is an estimate of the Glomerular Filtration Rate. It is an aid to assess a patient's renal function. It is not a conclusive diagnosis of kidney disease. GFR normal is >=90 The MDRD GFR calculation is considered valid between the ages of 18 and 75 years only. BUN/CREAT RATIO 7 8-[address] [facility] GLUCOSE 81 MG/DL 70-[address] [facility] CA 8.9 MG/DL 8.7-10.[address] [facility] BILIRUBIN,TOTAL 0.2 MG/DL 0.1-1.[address] [facility] AST 14 U/L 5-[address] [facility] ALT 19 U/L 5-48 [facility] ALKALINE PHOSPHATASE 60 U/L 40-[address] [facility] alth TOTAL PROTEIN 5.0 G/DL 5.9-8.[address] [facility] ALBUMIN 3.5 G/DL 3.0-5.[address] [facility] GLOBULIN 1.5 G/DL 1.5-3.5 [facility] ALB/GLOB RATIO 2.3 G/DL 1.0-3.0 [facility] ID Date Data Source [id number] 04/03/2020 07:53:[address] [facility] Name Value Range Interpretation Code Description Data Elizabeth rce(s) Supporting Document(s) WHITE BLOOD COUNT 6.58 10^3/uL 4.00-10.50 N [facility] ealth RED BLOOD COUNT 3.61 10^6/uL 3.90-5.20 L [facility] th HEMOGLOBIN 10.7 G/DL 11.5-15.[address] [facility] HEMATOCRIT 31.6 % 35.0-46.[address] [facility] MCV 87.5 FL 80.0-100.0 [facility] MCH 29.6 PG 27.0-34.0 [facility] MCHC 33.9 G/DL 32-[address] [facility] RDW 13.0 % 11.5-14.5 [facility] PLATELET COUNT 181 10^3/uL 130-[address] [facility] MPV 11.2 FL 8.7-13.2 [facility] GRAN % (AUTO) 44.0 % 42.0-75.0 N [facility] LYMPH % (AUTO) 44.1 % 20.0-51.0 N [facility] MONO % (AUTO) 8.2 % 2.0-15.0 N [facility] EOS % (AUTO) 2.6 % 0.0-11.0 N [facility] BASO % (AUTO) 0.9 % 0.0-2.0 N [facility] IG % (AUTO) 0.2 % 1.00-5.00 [facility] IG # (AUTO) 0.0 10^3/uL <0.5 [facility] GRAN # (AUTO) 2.90 10^3/uL 1.50-6.50 N [facility] LYMPH # (AUTO) 2.9 k/uL 1.0-5.0 N [facility] MONO # (AUTO) 0.54 k/uL 0.20-1.50 N [facility] EOS # (AUTO) 0.17 10^3/uL 0.00-1.10 N [facility] BASO # (AUTO) 0.06 10^3/uL 0.00-0.20 N [facility] ID Date Data Source [id number] 04/03/2020 08:20:00 AM EDT [facility] Name Value Range Interpretation Code Description Data Elizabeth rce(s) Supporting Document(s) SODIUM 144 MEQ/L 135-145 N [facility] POTASSIUM 4.0 MEQ/L 3.5-5.3 N [facility] CHLORIDE 111 MEQ/L 94-110 H [facility] CARBON DIOXIDE 26 MEQ/L 22-33 N [facility] ANION GAP 11 5-16 N [facility] BLOOD UREA NITRO < 5 MG/DL 7-25 L [facility] CREATININE 0.7 MG/DL 0.6-1.4 N [facility] GFR > 90.0 ML/MIN [facility] Stage G1 - Normal or high kidney functi on The GFR is an estimate of the Glomerular Filtration Rate. It is an aid to assess a patient's renal function. It is not a conclusive diagnosis of kidney disease. GFR normal is >=90 The MDRD GFR calculation is considered valid between the ages of 18 and 75 years only. BUN/CREAT RATIO 7 8-36 L [facility] GLUCOSE 86 MG/DL 70-[address] [facility] CA 8.3 MG/DL 8.7-10.[address] [facility] BILIRUBIN,TOTAL 0.2 MG/DL 0.1-1.3 [facility] AST 17 U/L 5-[address] [facility] ALT 23 U/L 5-48 [facility] ALKALINE PHOSPHATASE 56 U/L 40-[address] [facility] alth TOTAL PROTEIN 4.6 G/DL 5.9-8.[address] [facility] ALBUMIN 3.1 G/DL 3.0-5.1 [facility] GLOBULIN 1.5 G/DL 1.5-3.5 [facility] ALB/GLOB RATIO 2.1 G/DL 1.0-3.0 [facility] ID Date Data Source [id number] 04/02/2020 12:24:00 [place] [address] HEALTH INFORMATION MANAGEMENT Discharge Summary : [id number] Signed Patient: Madhavi Montalvo Acct:[id number] it: [id number] : 1980 Loc: [facility] Room/Bed: 311-A Age/Sex: 39 / [...] existing Martínez catheter. Prior to discharge from [facility] she had complained of cough and [...] Patient considered low suspicion Screening completed per intermediate accountant care request prior to return Negative 03/30/2020 [...] Tenderness Extremities: negative Clubbing and Edema Skin: [place] and Warm Neurological: Awake/Oriented, Cranial nerves 3-12 [...] 0 bisacodyl 10 mg Suppository 10 mg SD DAILY PRN (Reason: Constipation) RF: 0 pantoprazole [...] Acute Headache (DC) Additional Instruction/Plan of Treatment: Prison Transfer Facility Name Transferring to: [facility] Date of Admission: 03/28/20 Date of Discharge: [...] Tenderness Extremities: negative Clubbing and Edema Skin: [place] and Warm Neurological: Awake/Oriented, Cranial nerves 3-12 [...] GROWTH AFTER 5 DAYS 03/30/20 09:00 Urine,Catheterized [place] Count - Final 03/30/20 09:00 Urine,Catheterized Urine Culture - Final Escherichia Coli Klebsiella Pneumoniae 03/28/20 09:47 Urine,Clean Catch [place] Count - Final 03/28/20 09:47 Urine,Clean Catch Urine Culture - Final Lab Results Entire visit 04/02/20 04/02/20 04/01/20 06:41 06:41 07:15 WBC 6.04 RBC 3.49 L Hgb 10.5 L Hct 31.2 L MCV 89.4 MCH 30.1 MCHC 33.7 RDW 13.2 Plt Count 185 MPV 10.9 Gran % (Auto) 41.7 L Lymph % (Auto) 47.0 [place] % (Auto) 7.1 Eos % (Auto) 3.0 Baso % (Auto) 1.0 Nucleat RBC Rel Count Not Reportable Gran # 2.52 Lymph # (Auto) 2.8 [place] # (Auto) 0.43 Eos # (Auto) 0.18 [...] Urine Color Urine Appearance Urine pH Specific Index (Man) Urine Protein Urine Glucose (UA) Urine [...] L Lymph % (Auto) 47.[address] % (Auto) 7.3 7.4 Eos % (Auto) 3.1 2.3 Baso % (Auto) 0.5 0.9 Nucleat RBC Rel Count Not Reportable Not Reportable Gran # 2.29 2.10 Lymph # (Auto) 2.[address] [place] # (Auto) 0.40 0.42 Eos # (Auto) [...] Urine Color Urine Appearance Urine pH Specific Index (Man) Urine Protein Urine Glucose (UA) Urine [...] 36.7 L Lymph % (Auto) 51.[address] [place] % (Auto) 7.5 Eos % (Auto) 2.4 Baso % (Auto) 1.5 Nucleat RBC Rel Count Not Reportable Gran # 1.96 Lymph # (Auto) 2.8 [place] # (Auto) 0.40 Eos # (Auto) 0.13 [...] Urine Appearance CLEAR Urine pH 6.5 Specific Index (Man) 1.005 Urine Protein NEGATIVE Urine Glucose [...] MPV Gran % (Auto) Lymph % (Auto) [place] % (Auto) Eos % (Auto) Baso % (Auto) Nucleat RBC Rel Count Gran # Lymph # (Auto) [place] # (Auto) Eos # (Auto) Baso # [...] Appearance CLOUDY H Urine pH 6.0 Specific Index (Man) 1.006 Urine Protein NEGATIVE Urine Glucose [...] % (Auto) 50.4 Lymph % (Auto) 38.6 [place] % (Auto) 7.8 Eos % (Auto) 1.9 Baso % (Auto) 1.0 Nucleat RBC Rel Count Not Reportable Gran # 3.40 Lymph # (Auto) 2.6 [place] # (Auto) 0.53 Eos # (Auto) 0.13 [...] Urine Color Urine Appearance Urine pH Specific Index (Man) Urine Protein Urine Glucose (UA) Urine Ketones Urine Occult Blood Urine Nitrate Urine Bilirubin Urine Urobilinogen Ur Leukocyte Esterase Urine WBC (Auto) Urine RBC (Auto) Urine Bacteria (Auto) Ur Epithelial Cells Urine Mucus COVID-19 PCR Hospitalist Charges Worksheet Subject to change for billing criteria Did you complete your Hospitalist charges for this visit?: Yes Inpatient [address] Hosp Discharge Day-greater than 30 minutes: Yes Signed By:Samina GARCIA <<Signature on File>> Signed Date/Time: 04/02/20 1254 Co-Signer: Marlon Nichols MD Co-Signed Date/Time: 04/02/20 2022 Initializing User: Samina Dixon CHIEF POWER DISPATCHER 04/02/20 1224 1224 1224 Name Value Range Interpretation Code Description Data Elizabeth rce(s) Supporting Document(s) ID Date Data Source [id number] 04/02/2020 12:24:00 PM EDT [address] [address] HEALTH INFORMATION MANAGEMENT Discharge Plan : [id number] Signed Patient: Madhavi Montalvo Acct:[id number] Un it: [id number] : 1980 Loc: [facility] Room/Bed: 311-A Age/Sex: 39 / [...] 0 bisacodyl 10 mg Suppository 10 mg SD DAILY PRN (Reason: Constipation) RF: 0 pantoprazole [...] Acute Headache (DC) Additional Instruction/Plan of Treatment: Prison Transfer Facility Name Transferring to: [facility] Date of Admission: 03/28/20 Date of Discharge: [...] Tenderness Extremities: negative Clubbing and Edema Skin: [place] and Warm Neurological: Awake/Oriented, Cranial nerves 3-12 [...] 04/02/20 Ordered By: Samina Dixon Signed By:Samina Dixon CHIEF POWER DISPATCHER <<Signature on File>> Signed Date/Time: 04/02/20 1249 Co-Signer: Co-Signed Date/Time: Initializing User: Samina Dixon CHIEF POWER DISPATCHER 04/02/20 1224 1224 Name Value Range Interpretation Code Description Data Elizabeth rce(s) Supporting Document(s) ID Date Data Source [id number] 04/02/2020 07:33:00 AM EDT [facility] Name Value Range Interpretation Code Description Data Elizabeth rce(s) Supporting Document(s) WHITE BLOOD COUNT 6.04 10^3/uL 4.00-10.50 N [facility] RED BLOOD COUNT 3.49 10^6/uL 3.90-5.20 [facility] HEMOGLOBIN 10.5 G/DL 11.5-15.6 L [facility] HEMATOCRIT 31.2 % 35.0-46.0 L [facility] MCV 89.4 FL 80.0-100.0 [facility] MCH 30.1 PG 27.0-34.0 [facility] MCHC 33.7 G/DL 32-36 [facility] RDW 13.2 % 11.5-14.5 [facility] PLATELET COUNT 185 10^3/uL 130-400 N [facility] MPV 10.9 FL 8.7-13.2 N [facility] GRAN % (AUTO) 41.7 % 42.0-75.0 L [facility] LYMPH % (AUTO) 47.0 % 20.0-51.0 N [facility] MONO % (AUTO) 7.1 % 2.0-15.0 N [facility] EOS % (AUTO) 3.0 % 0.0-11.0 N [facility] BASO % (AUTO) 1.0 % 0.0-2.0 N [facility] IG % (AUTO) 0.2 % 1.00-5.00 [facility] IG # (AUTO) 0.0 10^3/uL <0.5 [facility] GRAN # (AUTO) 2.52 10^3/uL 1.50-6.50 N [facility] LYMPH # (AUTO) 2.8 k/uL 1.0-5.0 N [facility] MONO # (AUTO) 0.43 k/uL 0.20-1.[address] [facility] EOS # (AUTO) 0.18 10^3/uL 0.00-1.[address] [facility] BASO # (AUTO) 0.06 10^3/uL 0.00-0.[address] [facility] ID Date Data Source [id number] 04/02/2020 07:58:[address] [facility] Name Value Range Interpretation Code Description Data Elizabeth rce(s) Supporting Document(s) SODIUM 143 MEQ/L 135-[address] [facility] POTASSIUM 3.9 MEQ/L 3.5-5.[address] [facility] CHLORIDE 110 MEQ/L 94-[address] [facility] CARBON DIOXIDE 27 MEQ/L 22-[address] [facility] ANION GAP 10 5-[address] [facility] BLOOD UREA NITRO 6 MG/DL 7-[address] [facility] CREATININE 0.7 MG/DL 0.6-1.[address] [facility] GFR > 90.0 ML/MIN [facility] Stage G1 - Normal or high [...] years only. BUN/CREAT RATIO 8 8-[address] [facility] GLUCOSE 88 MG/DL 70-[address] [facility] CA 8.4 MG/DL 8.7-10.[address] [facility] ID Date Data Source [id number] 04/01/2020 10:12:00 AM EDT [address] [address] HEALTH INFORMATION MANAGEMENT PCM-Progress Note : [id number] Signed Patient: Madhavi Montalvo Acct:[id number] it: [id number] : 1980 Loc: ED Room/Bed: 311-A Age/Sex: 39 / F ADM [...] existing Martínez catheter. Prior to discharge from [facility] she had complained of cough and [...] 100 ml @ 200 mls/hr IV Q6H [facility] Rx#: [id number] Oral [birth year] 1580 / 1580 480 / 480 Output: Output, Indwelling Catheter 2200 / 2200 2650 / 2650 1250 / 1250 Amount Other: Total, Intake Amount 100 500 480 Date of Last Bowel Movement 03/30/20 03/30/20 Bowel Movement Amount Medium Total, Output Amount [phone] Voiding Method Indwelling Catheter Indwelling Catheter # [...] Tenderness Extremities: negative Clubbing and Edema Skin: [place] and Warm Neurological: Awake/Oriented, Cranial nerves 3-12 [...] by: Hydrocodone Bitart/Acetaminophen (Lortab 5/325 Tablet (Vicodin, Lafe)) 1 tab PO Q6HPRN PRN PRN Reason: UNBEARABLE PAIN LEVEL 10 Last Admin: 04/01/20 09:20 Dose: 1 tab Documented by: Al Hydroxide/Mg Welling xide (Maalox Plus Susp (Liquid Antacid)) 15 ml PO Q4HPRN PRN PRN Reason: Indigestion Albuterol Sulfate (Ventolin Aerosol) 2.5 mg INHALATION QIDPRN PRN PRN Reason: Wheezing Amoxicillin/Clavulanate Potassium (Augmentin 875 Mg Tablet) 1 tab PO BID [facility]; Protocol Last Admin: 04/01/20 09:29 Dose: 1 tab Documented by: Bisacodyl (Dulcolax Suppository) 10 mg RECTAL BIDPRN PRN PRN Reason: constipation Last Admin: 04/01/20 09:23 Dose: 10 mg Documented by: Buspirone HCl (Buspar Tablet) 10 mg PO BID [facility] Last Admin: 04/01/20 09:20 Dose: 10 mg Documented by: Duloxetine HCl (Cymbalta Capsule) 60 mg PO DAILY [facility] Last Admin: 04/01/20 09:20 Dose: 60 mg Documented by: Enoxaparin Sodium (Lovenox Inj) 40 mg SUBCUTAN Q24H [facility] Last Admin: 03/31/20 18:51 Dose: 40 mg Documented by: Escitalopram Oxalate (Lexapro Tablet) 5 mg PO DAILY [facility] Last Admin: 04/01/20 09:22 Dose: 5 mg Documented by: Folic Acid (Folic Acid Tablet) 1 mg PO DAILY [facility] Last Admin: 04/01/20 09:22 Dose: 1 mg Documented by: Gabapentin (Neurontin Capsule) 200 mg PO TID [facility] Last Admin: 04/01/20 09:19 Dose: 200 mg Documented by: Guaifenesin (Robitussin Plain Syrup Ud Cup) 200 mg PO Q4HPRN PRN PRN Reason: COUGH Hydroxychloroquine Sulfate (Plaquenil Tablet) 200 mg PO DAILY [facility] Last Admin: 04/01/20 09:20 Dose: 200 mg Documented by: Ketorolac Tromethamine (Toradol Injection) 30 mg IV Q6H PRN PRN Reason: MODERATE PAIN LEVEL 4-6 Stop: 04/05/20 14:48 Levetiracetam (Keppra Tablet) 500 mg PO BID [facility] Last Admin: 04/01/20 09:21 Dose: 500 mg Documented by: Loperamide HCl (Imodium Capsule) 2 mg PO Q6HPRN PRN PRN Reason: DIARRHEA Magnesium Hydroxide (Milk Of Magnesia Susp Ud-Cup) 30 ml PO DAILYPRN PRN PRN Reason: CONSTIPATION Metoprolol Tartrate (Lopressor Tablet) 50 mg PO BID [facility] Last Admin: 04/01/20 09:24 Dose: 50 mg Documented by: Ondansetron HCl (Zofran Injection) 4 mg IV PUSH Q4HPRN PRN PRN Reason: NAUSEA / VOMITING Pantoprazole Sodium (Protonix Tablet) 40 mg PO DAILY@0600-EMPTYSTOM [facility] Last Admin: 04/01/20 05:46 Dose: 40 mg Documented by: Promethazine HCl (Phenergan Injection) 25 mg IM Q6HPRN PRN PRN Reason: HEADACHE Last Admin: 03/31/20 02:43 Dose: 25 mg Documented by: Saccharomyces Boulardii (Florastor Cap) 250 mg PO BID [facility] Last Admin: 04/01/20 09:21 Dose: 250 mg Documented by: Senna (Senokot (Senna) 8.6 Mg Tablet) 2 tab PO BID [facility] Last Admin: 04/01/20 09:23 Dose: 2 tab Documented by: Sodium Chloride (Saline Lock Flush Protocol) 1 each IV FLUSH QSHIFT [facility] Last Admin: 04/01/20 09:29 Dose: 1 each Documented by: Sumatriptan Succinate (Imitrex Tablet) 50 mg PO Q2HPRN PRN PRN Reason: Migraine Headache Last Admin: 03/31/20 01:49 Dose: 50 mg Documented by: Thiamine HCl (Vitamin B-1 Tablet) 100 mg PO DAILY [facility] Last Admin: 04/01/20 09:20 Dose: 100 mg Documented by: Throat Lozenges (Chloraseptic Throat [place]) 1 applic MUC MEMB Q2HPRN PRN PRN Reason: SORE THROAT Tiotropium [employer] (Spiriva Inhaler) 1 inhalation INHALATION RT-DAILY [facility] Last Admin: 04/01/20 07:36 Dose: Not Given Documented by: Trazodone HCl (Desyrel Tablet) 50 mg PO HS [facility] Last Admin: 03/31/20 21:24 Dose: 50 mg Documented by: Result Diagrams: 04/01/20 07:15 04/01/20 07:15 Lab Results: Microbiology (Last 12 Hour Results- Final) 03/30/20 09:00 Urine,Catheterized [place] Count - Final Laboratory (Last 12 hours Results) 04/01/20 04/01/20 07:15 07:15 WBC 5.50 RBC 3.58 L Hgb 10.6 L Hct 31.5 L MCV 88.0 MCH 29.6 MCHC 33.7 RDW 13.2 Plt Count 180 MPV 10.9 Gran % (Auto) 41.6 L Lymph % (Auto) 47.1 [place] % (Auto) 7.3 Eos % (Auto) 3.1 Baso % (Auto) 0.5 Nucleat RBC Rel Count Not Reportable Gran # 2.29 Lymph # (Auto) 2.6 [place] # (Au to) 0.40 Eos # (Auto) [...] Patient considered low suspicion Screening completed per skilled nursing care request prior to return Negative 03/30/2020 [...] Hospitalist charges for this visit?: Yes Inpatient 49288 Subsequent INpt-Mod (less than/equal 25 minutes): Yes Signed By:Samina GARCIA <<Signature on File>> Signed Date/Time: 04/01/20 1021 Co-Signer: Co-Signed Date/Time: Initializing User: Samina GARCIA 04/01/20 1012 1012 1012 Name Value Range Interpretation Code Description Data Elizabeth rce(s) Supporting Document(s) ID Date Data Source [id number] 04/01/2020 07:58:00 AM EDT [facility] Name Value Range Interpretation Code Description Data Elizabeth rce(s) Supporting Document(s) WHITE BLOOD COUNT 5.50 10^3/uL 4.00-10.50 [facility] RED BLOOD COUNT 3.58 10^6/uL 3.90-5.20 [facility] HEMOGLOBIN 10.6 G/DL 11.5-15.6 L [facility] HEMATOCRIT 31.5 % 35.0-46.0 L [facility] MCV 88.0 FL 80.0-100.0 N [facility] MCH 29.6 PG 27.0-34.0 N [facility] MCHC 33.7 G/DL 32-36 N [facility] RDW 13.2 % 11.5-14.5 N [facility] PLATELET COUNT 180 10^3/uL 130-400 N [facility] MPV 10.9 FL 8.7-13.2 N [facility] GRAN % (AUTO) 41.6 % 42.0-75.0 L [facility] LYMPH % (AUTO) 47.1 % 20.0-51.0 N [facility] MONO % (AUTO) 7.3 % 2.0-15.0 N [facility] EOS % (AUTO) 3.1 % 0.0-11.0 N [facility] BASO % (AUTO) 0.5 % 0.0-2.0 N [facility] IG % (AUTO) 0.4 % 1.00-5.00 [facility] IG # (AUTO) 0.0 10^3/uL <0.5 [facility] GRAN # (AUTO) 2.29 10^3/uL 1.50-6.50 [facility] LYMPH # (AUTO) 2.6 k/uL 1.0-5.0 N [facility] MONO # (AUTO) 0.40 k/uL 0.20-1.50 N [facility] EOS # (AUTO) 0.17 10^3/uL 0.00-1.10 N [facility] BASO # (AUTO) 0.03 10^3/uL 0.00-0.20 N [facility] ID Date Data Source [id number] 04/01/2020 08:20:00 AM EDT [facility] Name Value Range Interpretation Code Description Data Elizabeth rce(s) Supporting Document(s) SODIUM 143 MEQ/L 135-145 N [facility] POTASSIUM 4.0 MEQ/L 3.5-5.3 N [facility] CHLORIDE 112 MEQ/L 94-110 H [facility] CARBON DIOXIDE 26 MEQ/L 22-[address] [facility] ANION GAP 9 5-[address] [facility] BLOOD UREA NITRO 7 MG/DL 7-[address] [facility] CREATININE 0.6 MG/DL 0.6-1.[address] [facility] GFR > 90.0 ML/MIN [facility] Stage G1 - Normal or high [...] years only. BUN/CREAT RATIO 11 8-[address] [facility] GLUCOSE 94 MG/DL 70-[address] [facility] CA 8.5 MG/DL 8.7-10.[address] [facility] ID Date Data Source [id number] 03/31/2020 02:35:00 PM EDT [address] [address] HEALTH INFORMATION MANAGEMENT PCM-Progress Note : [id number] Signed Patient: Madhavi Montalvo Acct:[id number] it: [id number] : 1980 Loc: [facility] Room/Bed: 311-A Age/Sex: 39 / [...] existing Martínez catheter. Prior to discharge from [facility] she had complained of cough and [...] 100 ml @ 200 mls/hr IV Q6H [facility] Rx#: [id number] Oral 600 / 600 1962 / 1961 480 / 480 Output: Urine [...] Tenderness Extremities: negative Clubbing and Edema Skin: [place] and Warm Neurological: Awake/Oriented, Cranial nerves 3-12 [...] by: Hydrocodone Bitart/Acetaminophen (Lortab 5/325 Tablet (Vicodin, Lafe)) 1 tab PO Q6HPRN PRN PRN Reason: UNBEARABLE PAIN LEVEL 10 Last Admin: 03/31/20 09:52 Dose: 1 tab Documented by: Al Hydroxide/Mg Hydroxide (Maalox Plus Susp (Liquid Antacid)) 15 ml PO Q4HPRN PRN PRN Reason: Indigestion Albuterol Sulfate (Ventolin Aerosol) 2.5 mg INHALATION QIDPRN PRN PRN Reason: Wheezing Amoxicillin/Clavulanate Potassium (Augmentin 875 Mg Tablet) 1 tab PO BID [facility]; Protocol Last Admin: 03/31/20 09:47 Dose: 1 tab Documented by: Buspirone HCl (Buspar Tablet) 10 mg PO BID [facility] Last Admin: 03/31/20 09:28 Dose: 10 mg Documented by: Duloxetine HCl (Cymbalta Capsu le) 60 mg PO DAILY [facility] Last Admin: 03/31/20 09:48 Dose: 60 mg Documented by: Enoxaparin Sodium (Lovenox Inj) 40 mg SUBCUTAN Q24H [facility] Last Admin: 03/30/20 18:05 Dose: 40 mg Documented by: Escitalopram Oxalate (Lexapro Tablet) 5 mg PO DAILY [facility] Last Admin: 03/31/20 09:30 Dose: 5 mg Documented by: Folic Acid (Folic Acid Tablet) 1 mg PO DAILY [facility] Last Admin: 03/31/20 09:29 Dose: 1 mg Documented by: Gabapentin (Neurontin Capsule) 200 mg PO TID [facility] Last Admin: 03/31/20 09:30 Dose: 200 mg Documented by: Guaifenesin (Robitussin Plain Syrup Ud Cup) 200 mg PO Q4HPRN PRN PRN Reason: COUGH Hydroxychloroquine Sulfate (Plaquenil Tablet) 200 mg PO DAILY [facility] Last Admin: 03/31/20 09:47 Dose: 200 mg Documented by: Levetiracetam (Keppra Tablet) 500 mg PO BID [facility] Last Admin: 03/31/20 09:28 Dose: 500 mg Documented by: Loperamide HCl (Imodium Capsule) 2 mg PO Q6HPRN PRN PRN Reason: DIARRHEA Magnesium Hydroxide (Milk Of Magnesia Susp Ud-Cup) 30 ml PO DAILYPRN PRN PRN Reason: CONSTIPATION Metoprolol Tartrate (Lopressor Tablet) 50 mg PO BID [facility] Last Admin: 03/31/20 09:29 Dose: 50 mg Documented by: Ondansetron HCl (Zofran Injection) 4 mg IV PUSH Q4HPRN PRN PRN Reason: NAUSEA / VOMITING Pantoprazole Sodium (Protonix Tablet) 40 mg PO DAILY@0600-EMPTYSTOM [facility] Last Admin: 03/31/20 05:38 Dose: 40 mg Documented by: Promethazine HCl (Phenergan Injection) 25 mg IM Q6HPRN PRN PRN Reason: HEADACHE Last Admin: 03/31/20 02:43 Dose: 25 mg Documented by: Saccharomyces Boulardii (Florastor Cap) 250 mg PO BID [facility] Last Admin: 03/31/20 09:31 Dose: 250 mg Documented by: Senna (Senokot (Senna) 8.6 Mg Tablet) 2 tab PO BID [facility] Last Admin: 03/31/20 09:27 Dose: 2 tab Documented by: Sodium Chloride (Saline Lock Flush Protocol) 1 each IV FLUSH QSHIFT [facility] Last Admin: 03/31/20 09:48 Dose: 1 each Documented by: Sumatriptan Succinate (Imitrex Tablet) 50 mg PO Q2HPRN PRN PRN Reason: Migraine Headache Last Admin: 03/31/20 01:49 Dose: 50 mg Documented by: Thiamine HCl (Vitamin B-1 Tablet) 100 mg PO DAILY [facility] Last Admin: 03/31/20 09:27 Dose: 100 mg Documented by: Throat Lozenges (Chloraseptic Throat [place]) 1 applic MUC MEMB Q2HPRN PRN PRN Reason: SORE THROAT Tiotropium [employer] (Spiriva Inhaler) 1 inhalation INHALATION RT-DAILY [facility] Last Admin: 03/31/20 09:33 Dose: Not Given Documented by: Trazodone HCl (Desyrel Tablet) 50 mg PO [facility] Last Admin: 03/30/20 20:35 Dose: 50 mg Documented by: Result Diagrams: 03/31/20 06:27 03/31/20 06:27 Lab Results: Microbiology (Last 12 Hour Results- Final) 03/30/20 09:00 Urine,Catheterized [place] Count - Final Laboratory (Last 12 hours Results) 03/31/20 03/31/20 06:27 06:27 WBC 5.66 RBC 3.69 L Hgb 10.8 L Hct 31.6 L MCV 85.6 MCH 29.3 MCHC 34.2 RDW 13.2 Plt Count 165 MPV 11.3 Gran % (Auto) 37.1 L Lymph % (Auto) 52.[address] [place] % (Auto) 7.4 Eos % (Auto) 2.3 Baso % (Auto) 0.9 Nucleat RBC Rel Count Not Reportable Gran # 2.10 Lymph # (Auto) 3.0 [place] # (Auto) 0.42 Eos # (Auto) 0.13 [...] Patient considered low suspicion Screening completed per intermediate accountant care request prior to return Negative 03/30/2020 [...] Hospitalist charges for this visit?: Yes Inpatient 25600 Subsequent INpt-Mod (less than/equal 25 minutes): Yes Signed By:Samina GARCIA <<Signature on File>> Signed Date/Time: 03/31/20 1454 Co-Signer: Co-Signed Date/Time: Initializing User: Samina GARCIA 1434 [id number] 34 Name Value Range Interpretation Code Description Data Elizabeth rce(s) Supporting Document(s) ID Date Data Source [id number] 03/31/2020 11:59:00 [place] [address] Patient Name: Madhavi Montalvo Exam Date: 03/31/20 : 1980 Ordering Doctor: Samina GARCIA Attending Doctor: Samina GARCIA CC: [facility] MRI CERVICAL SPINE WITHOUT CONTRAST CLINICAL [...] cervical spine MRI. Professional interpretation performed at [facility] . End of diagnostic report: [id number] Signed: Callum Jackson MD 04/02/20 1203 Interpreted by: Delores Jacksonribed by: Callum Jackson Name Value Range Interpretation Code Description Data Elizabeth rce(s) Supporting Document(s) ID Date Data Source [id number] 03/31/2020 11:59:00 [place] [address] Patient Name: Madhavi Montalvo Exam Date: 03/31/20 : 1980 Ordering Doctor: Samina GARCIA Attending Doctor: Samina GARCIA CC: [facility] MRI BRAIN WITHOUT CONTRAST CLINICAL STATEMENT: [...] Normal brain MRI. Professional interpretation performed at [facility] . End of diagnostic report: [id number] Signed: Callum Jackson MD 04/02/20 1202 Interpreted by: Yusuf Jacksonscribed by: Callum Jackson Name Value Range Interpretation Code Description Data Elizabeth rce(s) Supporting Document(s) ID Date Data Source [id number] 03/31/2020 07:35:[address] [facility] Name Value Range Interpretation Code Description Data [facility] rce(s) Supporting Document(s) WHITE BLOOD COUNT 5.66 10^3/uL 4.00-10.50 [facility] RED BLOOD COUNT 3.69 10^6/uL 3.90-5.20 [facility] HEMOGLOBIN 10.8 G/DL 11.5-15.6 L [facility] HEMATOCRIT 31.6 % 35.0-46.0 L [facility] MCV 85.6 FL 80.0-100.[address] [facility] MCH 29.3 PG 27.0-34.0 N [facility] MCHC 34.2 G/DL 32-36 N [facility] RDW 13.2 % 11.5-14.5 N [facility] PLATELET COUNT 165 10^3/uL 130-[address] [facility] MPV 11.3 FL 8.7-13.2 N [facility] GRAN % (AUTO) 37.1 % 42.0-75.0 L [facility] LYMPH % (AUTO) 52.1 % 20.0-51.0 H [facility] MONO % (AUTO) 7.4 % 2.0-15.0 N [facility] EOS % (AUTO) 2.3 % 0.0-11.0 N [facility] BASO % (AUTO) 0.9 % 0.0-2.0 N [facility] IG % (AUTO) 0.2 % 1.00-5.00 [facility] IG # (AUTO) 0.0 10^3/uL <0.5 [facility] GRAN # (AUTO) 2.10 10^3/uL 1.50-6.50 N [facility] LYMPH # (AUTO) 3.0 k/uL 1.0-5.0 N [facility] MONO # (AUTO) 0.42 k/uL 0.20-1.50 N [facility] EOS # (AUTO) 0.13 10^3/uL 0.00-1.10 N [facility] BASO # (AUTO) 0.05 10^3/uL 0.00-0.20 N [facility] ID Date Data Source [id number] 03/31/2020 07:59:00 AM EDT [facility] Name Value Range Interpretation Code Description Data Elizabeth rce(s) Supporting Document(s) SODIUM 143 MEQ/L 135-145 N [facility] POTASSIUM 4.3 MEQ/L 3.5-5.3 N [facility] CHLORIDE 111 MEQ/L 94-110 [facility] CARBON DIOXIDE 25 MEQ/L 22-33 N [facility] ANION GAP 11 5-16 [facility] BLOOD UREA NITRO 7 MG/DL 7-25 [facility] CREATININE 0.7 MG/DL 0.6-1.4 N [facility] GFR > 90.0 ML/MIN [facility] Stage G1 - Normal or high kidney functi on The GFR is an estimate of the Glomerular Filtration Rate. It is an aid to assess a patient's renal function. It is not a conclusive diagnosis of kidney disease. GFR normal is >=90 The MDRD GFR calculation is considered valid between the ages of 18 and 75 years only. BUN/CREAT RATIO 10 8-36 N [facility] GLUCOSE 79 MG/DL 70-100 N [facility] CA 8.6 MG/DL 8.7-10.5 L [facility] ID Date Data Source [id number] 03/30/2020 12:54:00 [place] [address] HEALTH INFORMATION MANAGEMENT PCM-Progress Note : [id number] Signed Patient: Madhavi Montalvo Acct:[id number] it: [id number] : 1980 Loc: ICU Room/Bed: ICU7-A Age/Sex: [...] existing Martínez catheter. Prior to discharge from [facility] she had complained of cough and [...] ml @ 400 mls/hr IV ONCE ONE Rx#:[id number] Sodium Chloride 0.9% Infusion 1 1000 / 1000 ,000 ml @ 999 mls/hr IV ONCE ONE Rx#:[id number] Oral 120 / 120 600 / 600 880 / 880 Output: Urine 750 / 750 Output, Indwelling Catheter 850 / 850 150 / 150 1050 / 1050 Amount Other: Total, Intake Amount 120 480 400 Date of Last Bowel Movement 03/27/20 03/27/20 Total, Output Amount [phone] Voiding Method Indwelling Catheter Indwelling Catheter Weight [...] Tenderness Extremities: negative Clubbing and Edema Skin: [place] and Warm Neurological: Awake/Oriented, Cranial nerves 3-12 [...] HCl (Buspar Tablet) 10 mg PO BID [facility] Last Admin: 03/30/20 08:49 Dose: 10 mg Documented by: Duloxetine HCl (Cymbalta Capsule) 60 mg PO DAILY [facility] Last Admin: 03/30/20 08:49 Dose: 60 mg Documented by: Enoxaparin Sodium (Lovenox Inj) 40 mg SUBCUTAN Q24H [facility] Last Admin: 03/29/20 17:32 Dose: 40 mg Documented by: Escitalopram Oxalate (Lexapro Tablet) 5 mg PO DAILY [facility] Last Admin: 03/30/20 08:50 Dose: 5 mg Documented by: Folic Acid (Folic Acid Tablet) 1 mg PO DAILY [facility] Last Admin: 03/30/20 08:51 Dose: 1 mg Documented by: Gabapentin (Neurontin Capsule) 200 mg PO TID [facility] Last Admin: 03/30/20 08:48 Dose: 200 mg Documented by: Guaifenesin (Robitussin Plain Syrup Ud Cup) 200 mg PO Q4HPRN PRN PRN Reason: COUGH Hydroxychloroquine Sulfate (Plaquenil Tablet) 200 mg PO DAILY [facility] Last Admin: 03/30/20 08:48 Dose: 200 mg Documented by: Imipenem/Cilastatin Sodium 500 (mg/ Sodium Chloride) 100 mls @ 200 mls/hr IV Q6H [facility] Last Admin: 03/30/20 12:15 Dose: 200 mls/hr Documented by: Ketorolac Tromethamine (Toradol Injection) 30 mg IV Q6H PRN PRN Reason: SEVERE PAIN LEVEL 7-9 Stop: 04/03/20 13:37 Last Admin: 03/30/20 06:37 Dose: 30 mg Documented by: Levetiracetam (Keppra Tablet) 500 mg PO BID [facility] Last Admin: 03/30/20 08:49 Dose: 500 mg Documented by: Loperamide HCl (Imodium Capsule) 2 mg PO Q6HPRN PRN PRN Reason: DIARRHEA Magnesium Hydroxide (Milk Of Magnesia Susp Ud-Cup) 30 ml PO DAILYPRN PRN PRN Reason: CONSTIPATION M etoprolol Tartrate (Lopressor Tablet) 50 mg PO BID [facility] Miscellaneous Medication (Methotrexate Sodium [Trexall]) 7.5 mg PO Q7DAYS [facility] Ondansetron HCl (Zofran Injection) 4 mg IV PUSH Q4HPRN PRN PRN Reason: NAUSEA / VOMITING Pantoprazole Sodium (Protonix Tablet) 40 mg PO DAILY@0600-EMPTYSTOM [facility] Last Admin: 03/30/20 06:37 Dose: 40 mg Documented by: Senna (Senokot (Senna) 8.6 Mg Tablet) 2 tab PO BID [facility] Last Admin: 03/30/20 08:50 Dose: 2 tab Documented by: Sodium Chloride (Saline Lock Flush Protocol) 1 each IV FLUSH QSHIFT [facility] Last Admin: 03/30/20 08:51 Dose: 1 each Documented by: Sumatriptan Succinate (Imitrex Tablet) 50 mg PO Q2HPRN PRN PRN Reason: Migraine Headache Last Admin: 03/30/20 12:14 Dose: 50 mg Documented by: Thiamine HCl (Vitamin B-1 Tablet) 100 mg PO DAILY [facility] Last Admin: 03/30/20 08:50 Dose: 100 mg Documented by: Throat Lozenges (Chloraseptic Throat [place]) 1 applic MUC MEMB Q2HPRN PRN PRN Reason: SORE THROAT Tiotropium [employer] (Spiriva Inhaler) 1 inhalation INHALATION RT-DAILY [facility] Last Admin: 03/30/20 07:05 Dose: Not Given Documented by: Trazodone HCl (Desyrel Tablet) 50 mg PO HS [facility] Result Diagrams: 03/29/20 06:56 03/29/20 06:56 Lab Results: Laboratory (Last 12 hours Results) 03/30/20 09:00 Urine Color STRAW Urine Appearance CLEAR Urine pH 6.5 Specific Index (Man) 1.005 Urine Protein NEGATIVE Urine Glucose [...] Patient considered low suspicion Screening completed per intermediate accountant care request prior to return Negative 03/30/2020 [...] Hospitalist charges for this visit?: Yes Inpatient 67704 Subsequent INpt-Mod (less than/equal 25 minutes): Yes Signed By:Samina GARCIA <<Signature on File>> Signed Date/Time: 03/30/20 1326 Co-Signer: Co-Signed Date/Time: Initializing User: Samina GARCIA 03/30/20 1254 1254 1254 Name Value Range Interpretation Code Description Data Elizabeth rce(s) Supporting Document(s) ID Date Data Source [id number] 03/30/2020 12:14:00 PM EDT [address] [address] HEALTH INFORMATION MANAGEMENT Nutritional Care Progress Note : [id number] [id number] Signed Patient: Madhavi Montalvo Acct:[id number] Un it: [id number] : 1980 Loc: ICU Room/Bed: ICU7-A Age/Sex: 39 / F ADM Date: 03/28/20 cc: Nutrition Considerations - Considerations Assessment/PMH: Chief Complaint:[Headache with shortness of breath ] PMH:[Asthma, Chronic headache, Lupus, IBS, Fibromyalgia, and anoxic brain injury] Skin Status: Intact: Yes Eating Difficulties: No Problem Other Nu tritionally Related Considerations: Nausea Blood Pressure WNL: WNL 90/50- 139/89mmHg Herbal Supplement: No Gnosticist or Cultural Food Restrictions: No - Initial [...] 08:48 Plaquenil Tablet PO 200 mg DAILY [facility] Administration Imipenem/Cilastatin Sodium 500 100 mls @ 200 mls/hr 03/30/20 12:00 mg/ Sodium Chloride IV Q6H [facility] Ketorolac Tromethamine 30 mg 03/29/20 13:40 03/30/20 06:37 Toradol Injection IV 04/03/20 13:37 30 mg Q6H PRN Administration SEVERE PAIN LEVEL 7-9 Levetiracetam 500 mg 03/28/20 21:00 03/30/20 08:49 Keppra Tablet PO 500 mg BID [facility] Administration Loperamide HCl 2 mg 03/28/20 15:23 Imodium Capsule PO Q6HPRN PRN DIARRHEA Magnesium Hydroxide 30 ml 03/28/20 15:23 Milk Of Magnesia Susp Ud-Cup PO DAILYPRN PRN CONSTIPATION Metoprolol Tartrate 50 mg 03/28/20 21:00 Lopressor Tablet PO BID [facility] Miscellaneous Medication 7.5 mg 04/04/20 09:00 Methotrexate Sodium [Trexall] PO Q7DAYS [facility] Ondansetron HCl 4 mg 03/28/20 15:23 Zofran Injection IV PUSH Q4HPRN PRN NAUSEA / VOMITING Pantoprazole Sodium 40 mg 03/29/20 06:00 03/30/20 06:37 Protonix Tablet PO 40 mg DAILY@0600-EMPTYSTOM [facility] Administration Senna 2 tab 03/28/20 21:00 03/30/20 08:50 Senokot (Senna) 8.6 Mg Tablet PO 2 tab BID [facility] Administration Sodium Chloride 1 each 03/28/20 16:00 03/30/20 08:51 Saline Lock Flush Protocol IV FLUSH 1 each QSHIFT [facility] Administration Sumatriptan Succinate 50 mg 03/28/20 15:23 03/30/20 00:37 Imitrex Tablet PO 50 mg Q2HPRN PRN Administration Migraine Headache Thiamine HCl 100 mg 03/29/20 09:00 03/30/20 08:50 Vitamin B-1 Tablet PO 100 mg DAILY [facility] Administration Throat Lozenges 1 applic 03/28/20 15:23 Chloras eptic Throat [place] MUC MEMB Q2HPRN PRN SORE THROAT Tiotropium [employer] 1 inhalation 03/29/20 07:00 03/30/20 07:05 Spiriva [...] Fluid Needs:: 1800 cc - IBW Calculated [place] Body Weight (IBW): 124.80 Adjusted Body Weight (ABW): 132.84 % [place] Body Weight (%IBW): 126 Body Mass Index [...] Co-Signed Date/Time: Initializing User: Brendan Prieto 03/16 04/04 1214 13 13 Name Value Range Interpretation Code Description Data Elizabeth rce(s) Supporting Document(s) ID Date Data Source [id number] 03/30/2020 10:45:00 AM [facility] Run: 04/02/20 0811 INTERFACED REPORT Name: Madhavi Montalvo Age/Sex: 39/F Location: [facility] Acct: [id number] Unit: [id number] Status: ADM IN Room/Bed: 311-A Re03/28/20 Disch: Glenn Dr: Samina Dixon 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0-8.0 [facility] SPECIFIC GRAVITY,UR 1.005 1.002-1.035 [facility] PROTEIN,UR NEGATIVE MG/DL NEGATIVE [facility] GLUCOSE, UR NEGATIVE MG/DL NEGATIVE [facility] KETONES,UR NEGATIVE MG/DL NEGATIVE [facility] OCCULT BLOOD,UR TRACE NEGATIVE A [facility] NITRATE,UR POSITIVE NEGATIVE A [facility] LEUKOCYTE ESTERASE ,UR MODERATE NEGATIVE A [facility] BILIRUBIN,UR NEGATIVE NEGATIVE [facility] UROBILINOGEN,UR 0.2-1.0 EU MG/DL NEG-0-1.0 [facility] RBC,UR 1-2 PER HPF 0-2 [facility] WBC,UR 5-9 PER HPF <5 A [facility] URINE EPITH RARE PER/LPF FEW-MOD [facility] BACTERIA,UR FEW PER HPF NONE [facility] ID Date Data Source [id number] 04/02/2020 08:10:00 AM EDT [facility] Run: 04/02/20 0811 INTERFACED REPORT Name: Madhavi Montalvo Age/Sex: 39/F Location: [facility] Acct: [id number] Unit: [id number] Status: ADM IN Room/Bed: 311-A Re03/28/20 Disch: Att Dr: Samina GARCIA Specimen #: [id number] Ordered : 03/30/20 Collected : 03/30/20 By: [...] CIPROFLOXACIN <=1 S GENTAMICIN <=4 S Run: 04/02/2011 INTERFACED REPORT ------- ----- Specimen #: [id number] (Continued) Ordered : 03/30/20 Collected : 03/30/20 [...] Run: 04/02/20 0811 INTERFACED REPORT Specimen #: [id number] (Continued) Ordered : 03/30/20 Collected : 03/30/20 [...] rce(s) Supporting Document(s) ID Date Data Source [id number] 03/29/2020 01:13:00 PM EDT [address] [address] HEALTH INFORMATION MANAGEMENT PCM-Progress Note : [id number] Signed Patient: Madhavi Montalvo Acct:[id number]: [id number] : 1980 Loc: [facility] Room/Bed: 412-A Age/Sex: 39 / F ADM Date: 03/28/20 cc: Subjective Date of Service: 03/29/20 Subjective: This patient is a 39 yo F with a past medical history of Asthma, Chronic headache, Lupus, IBS, Fibromyalgia, and anoxic brain injury that was sent to the ER this morning from her ID ([facility]) for complaints of a headache. She states [...] shortness of breath and cough at the ID. Because of this they tested for COVID [...] ml @ 400 mls/hr IV ONCE ONE Rx#:[id number] Sodium Chloride 0.9% Infusion 1 1000 / 1000 ,000 ml @ 999 mls/hr IV ONCE ONE Rx#:[id number] Oral 120 / 120 120 / 120 [...] HCl (Buspar Tablet) 10 mg PO BID [facility] Last Admin: 03/29/20 08:22 Dose: 10 mg Documented by: Duloxetine HCl (Cymbalta Capsule) 60 mg PO DAILY [facility] Last Admin: 03/29/20 08:22 Dose: 60 mg Documented by: Enoxaparin Sodium (Lovenox Inj) 40 mg SUBCUTAN Q24H [facility] Last Admin: 03/28/20 18:05 Dose: 40 mg Documented by: Escitalopram Oxalate (Lexapro Tablet) 5 mg PO DAILY [facility] Last Admin: 03/29/20 08:23 Dose: 5 mg Documented by: Folic Acid (Folic Acid Tablet) 1 mg PO DAILY [facility] Last Admin: 03/29/20 08:24 Dose: 1 mg Documented by: Gabapentin (Neurontin Capsule) 200 mg PO TID [facility] Last Admin: 03/29/20 08:22 Dose: 200 mg Documented by: Guaifenesin (Robitussin Plain Syrup Ud Cup) 200 mg PO Q4HPRN PRN PRN Reason: COUGH Hydroxychloroquine Sulfate (Plaquenil Tablet) 200 mg PO DAILY [facility] Last Admin: 03/29/20 09:19 Dose: 200 mg Documented by: Levetiracetam (Keppra Tablet) 500 mg PO BID [facility] Last Admin: 03/29/20 08:24 Dose: 500 mg Documented by: Loperamide HCl (Imodium Capsule) 2 mg PO Q6HPRN PRN PRN Reason: DIARRHEA Magnesium Hydroxide (Milk Of Magnesia Susp Ud-Cup) 30 ml PO DAILYPRN PRN PRN Reason: CONSTIPATION Metoprolol Tartrate (Lopressor Tablet) 50 mg PO BID [facility] Miscellaneous Medication (Methotrexate Sodium [Trexall]) 7.5 mg PO Q7DAYS [facility] Ondansetron HCl (Zofran Injection) 4 mg IV PUSH Q4HPRN PRN PRN Reason: NAUSEA / VOMITING Pantoprazole Sodium (Protonix Tablet) 40 mg PO DAILY@0600- EMPTYSTOM [facility] Last Admin: 03/29/20 05:09 Dose: 40 mg Documented by: Senna (Senokot (Senna) 8.6 Mg Tablet) 2 tab PO BID [facility] Last Admin: 03/29/20 08:25 Dose: Not Given Documented by: Sodium Chloride (Saline Lock Flush Protocol) 1 each IV FLUSH QSHIFT [facility] Last Admin: 03/29/20 08:29 Dose: 1 each Documented by: Sumatriptan Succinate (Imitrex Tablet) 50 mg PO Q2HPRN PRN PRN Reason: Migraine Headache Last Admin: 03/29/20 08:23 Dose: 50 mg Documented by: Thiamine HCl (Vitamin B-1 Tablet) 100 mg PO DAILY [facility] Last Admin: 03/29/20 08:25 Dose: 100 mg Documented by: Throat Lozenges (Chloraseptic Throat [place]) 1 applic MUC MEMB Q2HPRN PRN PRN Reason: SORE THROAT Tiotropium [employer] (Spiriva Inhaler) 1 inhalation INHALATION RT-DAILY [facility] Last Admin: 03/29/20 08:20 Dose: 1 inhalation Documented by: Trazodone HCl (Desyrel Tablet) 50 mg PO DAILY [facility] Last Admin: 03/29/20 08:29 Dose: Not Given Documented by: Result Diagrams: 03/29/20 06:56 03/29/20 06:56 Lab Results: Microbiology (Last 12 Hour Results- Final) 03/28/20 09:47 Urine,Clean Catch [place] Count - Final 03/28/20 09:47 Urine,Clean Catch Urine Culture - Final Laboratory (Last 12 hours Results) 03/29/20 03/29/20 06:56 06:56 WBC 5.34 RBC 3.97 Hgb 11.7 D Hct 34.4 L MCV 86.6 MCH 29.5 MCHC 34.0 RDW 13.2 Plt Count 193 D MPV 10.6 Gran % (Auto) 36.7 L Lymph % (Auto) 51.[address] [place] % (Auto) 7.5 Eos % (Auto) 2.4 Baso % (Auto) 1.5 Nucleat RBC Rel Count Not Reportable Gran # 1.96 Lymph # (Auto) 2.8 [place] # (Auto) 0.40 Eos # (Auto) 0.13 [...] need to be negative before returning to [facility] -not back yet 3. Lupus Continue home [...] Hospitalist charges for this visit?: Yes Inpatient 01418 Subsequent INpt-Complex (less than/equal 35 minutes): Yes Signed By:Sandee Grullon MD <<Signature on File>> Signed Date/Time: 03/29/20 1357 Co-Signer: Isidro Sun MD Co-Signed Date/Time: 03/29/20 1424 Initializing User: Sandee Grullon MD 0 03/29/20 1313 1313 1313 Name Value Range Interpretation Code Description Data Elizabeth rce(s) Supporting Document(s) ID Date Data Source [id number] 03/29/2020 07:28:[address] [facility] Name Value Range Interpretation Code Description Data Elizabeth rce(s) Supporting Document(s) SODIUM 143 MEQ/L 135-145 [facility] POTASSIUM 4.1 MEQ/L 3.5-5.3 [facility] [employer] [employer] CHLORIDE 111 MEQ/L 94-110 [facility] [employer] CARBON DIOXIDE 26 MEQ/L 22-33 [facility] [employer] ANION GAP 10 5-16 [facility] [employer] BLOOD UREA NITRO 9 MG/DL 7-25 [facility] [employer] CREATININE 0.7 MG/DL 0.6-1.[address] [facility] GFR > 90.0 ML/MIN [facility] Stage G1 - Normal or high [...] years only. BUN/CREAT RATIO 12 8-[address] [facility] GLUCOSE 86 MG/DL 70-100 [facility] [employer] CA 8.5 MG/DL 8.7-10.[address] [facility] ID Date Data Source [id number] 03/29/2020 07:23:[address] [facility] Name Value Range Interpretation Code Description Data Elizabeth rce(s) Supporting Document(s) WHITE BLOOD COUNT 5.34 10^3/uL 4.00-10.50 [facility] RED BLOOD COUNT 3.97 10^6/uL 3.90-5.20 [facility] HEMOGLOBIN 11.7 G/DL 11.5-15.6 [employer] HEMATOCRIT 34.4 % 35.0-46.[address] [facility] MCV 86.6 FL 80.0-100.[address] [facility] MCH 29.5 PG 27.0-34.[address] [facility] MCHC 34.0 G/DL 32-[address] [facility] RDW 13.2 % 11.5-14.[address] [facility] PLATELET COUNT 193 10^3/uL 130-[address] [facility] MPV 10.6 FL 8.7-13.[address] [facility] GRAN % (AUTO) 36.7 % 42.0-75.[address] [facility] LYMPH % (AUTO) 51.7 % 20.0-51.[address] [facility] MONO % (AUTO) 7.5 % 2.0-15.[address] [facility] EOS % (AUTO) 2.4 % 0.0-11.[address] [facility] BASO % (AUTO) 1.5 % 0.0-2.[address] [facility] IG % (AUTO) 0.2 % 1.00-5.[address] [facility] IG # (AUTO) 0.0 10^3/uL <0.[address] [facility] GRAN # (AUTO) 1.96 10^3/uL 1.50-6.[address] [facility] LYMPH # (AUTO) 2.8 k/uL 1.0-5.[address] [facility] MONO # (AUTO) 0.40 k/uL 0.20-1.50 [facility] [employer] EOS # (AUTO) 0.13 10^3/uL 0.00-1.10 [facility] [employer] BASO # (AUTO) 0.08 10^3/uL 0.00-0.[address] [facility] ID Date Data Source [id number] 03/28/2020 02:36:00 PM EDT [address] [address] HEALTH INFORMATION MANAGEMENT History and Physical Report : [id number] Signed Patient: Madhavi Montalvo Acct:[id number] Un it: [id number] : 1980 Loc: 4[facility] Room/Bed: 412-A Age/Sex: 39 / F ADM Date: 03/28/20 cc: History Physical Date of Service (Initial Exam): 03/28/20 Chief Complaint: Headache with shortness of breath History of Present Illness: This patient is a 39 yo F with a past medical history of Asthma, Chronicheadache, Lupus, IBS, Fibromyalgia, and anoxic brain injury that was sent to the ER this morning from her ID (Mihri) for complaints of a headache. She states [...] shortness of breath and cough at the ID. Because of this they tested for COVID [...] PO BID PRN 03/28/20 bisacodyl 10 mg SD DAILY PRN 03/28/20 budesonide-formoterol [Symbicort] 2 puff [...] tartrate [Lopressor] 50 mg PO Q12H 03/28/20 twjtlpulhkjx-zup-plre-FA-vit K 1 tab PO DAILY 03/28/20 [Multi- [...] of use Occupation: disabled Lives with: Reports Prison PMH/PSH PMH/PSH Surgical History Gastric bypass status [...] MPV Gran % (Auto) Lymph % (Auto) [place] % (Auto) Eos % (Auto) Baso % (Auto) Nucleat RBC Rel Count Gran # Lymph # (Auto) [place] # (Auto) Eos # (Auto) Baso # [...] Appearance CLOUDY H Urine pH 6.0 Specific Index (Man) 1.006 Urine Protein NEGATIVE Urine Glucose [...] % (Auto) 50.4 Lymph % (Auto) 38.6 [place] % (Auto) 7.8 Eos % (Auto) 1.9 Baso % (Auto) 1.0 Nucleat RBC Rel Count Not Reportable Gran # 3.40 Lymph # (Auto) 2.6 [place] # (Auto) 0.53 Eos # (Auto) 0.13 [...] Urine Color Urine Appearance Urine pH Specific Index (Man) Urine Protein Urine Glucose (UA) Urine [...] need to be negative before returning to [facility] 3. Lupus Continue home meds 4. Fibromyalgia [...] Health Care proxy Phone Number:: Sadie Tirado [phone] DVT Prophylaxis Pharmacologic: Lovenox Problems (1) Head [...] was more than 50% counseling:: Yes Inpatient 85748 Initial INpt-Mod (less than/equal 50 minutes): Yes Signed By:Tan Pulido MD <<Signature on File>> Signed Date/Time: 03/28/201852 Co-Signer: Isidro Sun MD Co-Signed Date/Time: 03/28/201852 Initializing User: Tan Pulido MD 1436 1436 35 Name Value Range Interpretation Code Description Data Elizabeth rce(s) Supporting Document(s) ID Date Data Source [id number] 03/28/2020 10:32:00 [place] [address] Patient Name: Madhavi Montalvo Exam Date: 03/28/20 [...] acute intracranial disease. Professional interpretation performed at [facility] . End of diagnostic report: [id number] Signed: Savanah Smith MD 03/28/20 1039 Interpreted by: Savanah Smithnscribed by: Savanah Smith Name Value Range Interpretation Code Description Data Elizabeth rce(s) Supporting Document(s) ID Date Data Source [id number] 03/28/2020 10:08:00 [place] [address] Patient Name: Madhavi Montalvo Exam Date: 03/28/20 [...] chest. Professional interpretation performed at Dr. Idris Lebrno [facility] . End of diagnostic report: [id number] Signed: Red Hamilton MD 03/28/20 1014 Interpreted by: Red HamiltonTranscribed by: Red Hamilton Name Value Range Interpretation Code Description Data Elizabeth rce(s) Supporting Document(s) ID Date Data Source [id number] 04/02/2020 11:12:[address] [facility] Run: 04/02/20 1112 INTERFACED REPORT Name: Madhavi Montalvo Age/Sex: 39/F Location: [facility] Acct: [id number] Unit: [id number] Status: ADM IN Room/Bed: 311-A Re03/28/20 Disch: Glenn Dr: Samina Dixon [employer]IEF POWER DISPATCHER Specimen #: [id number] Ordered : 03/28/20 Collected : 03/28/20 By: [...] rce(s) Supporting Document(s) ID Date Data Source [id number] 03/28/2020 10:04:00 AM EDT [facility] Run: 04/02/20 1112 INTERFACED REPORT Name: Madhavi Montalvo Age/Sex: 39/F Location: [facility] Acct: [id number] Unit: [id number] Status: ADM IN Room/Bed: 311-A Re03/28/20 Disch: Att Dr: Samina GARCIA Specimen #: [id number] Ordered : 03/28/20 Collected : 03/28/20 By: [...] WHITE BLOOD COUNT 6.76 10^3/uL 4.00-10.50 [facility] RED BLOOD COUNT 4.54 10^6/uL 3.90-5.20 [facility] HEMO[facility] 13.4 G/DL 11.5-15.6 [facility]IT 40.0 % 35.0-46.0 [facility] MCV 88.1 FL 80.0-100.0 [facility] MCH 29.5 PG 27.0-34.0 [facility] MCHC 33.5 G/DL 32-36 [facility] RDW 13.2 % 11.5-14.5 [facility] PLATELET COUNT 231 10^3/uL 130-400 [facility] MPV 10.9 FL 8.7-13.2 [facility] GRAN % (AUTO) 50.4 % 42.0-75.0 [facility] LYMPH % (AUTO) 38.6 % 20.0-51.0 [facility] MONO % (AUTO) 7.8 % 2.0-15.0 [facility] EOS % (AUTO) 1.9 % 0.0-11.0 [facility] BASO % (AUTO) 1.0 % 0.0-2.0 [facility] IG % (AUTO) 0.3 % 1.00-5.00 [facility] IG # (AUTO) 0.0 10^3/uL <0.5 [facility] GRAN # (AUTO) 3.40 10^3/uL 1.50-6.50 [facility] LYMPH # (AUTO) 2.6 k/uL 1.0-5.0 [facility] MONO # (AUTO) 0.53 k/uL 0.20-1.50 [facility] EOS # (AUTO) 0.13 10^3/uL 0.00-1.10 [facility] BASO # (AUTO) 0.07 10^3/uL 0.00-0.20 [facility] ID Date Data Source [id number] 03/28/2020 10:13:00 AM EDT [facility] Run: 04/02/20 1112 INTERFACED REPORT Name: Madhavi Montalvo Age/Sex: 39/F Location: [facility] Acct: [id number] Unit: [id number] Status: ADM IN Room/Bed: 311-A Re03/28/20 Disch: Glenn Dr: Samina Dixon CHIEF POWER DISPATCHER Specimen #: [id number] Ordered : 03/28/20 Collected : 03/28/20 By: [...] Document(s) PROTHROMBIN TIME 10.7 SEC 8.9-13.3 N [facility] INR 1.0 0.0-3.6 N [facility] Therapeutic Values of INR are generally between 2.0-3.0 except for Prosthetic Valves (High Risk 2.5-3.5) The use of INR is restricted to patient on stable oral anticoagulant therapy. ID Date Data Source [id number] 03/28/2020 10:23:00 AM EDT [facility] Run: 04/02/20 1112 INTERFACED REPORT Name: Madhavi Montalvo Age/Sex: 39/F Location: [facility] Acct: [id number] Unit: [id number] Status: ADM IN Room/Bed: 311-A Re03/28/20 Disch: Att Dr: Samina GARCIA Specimen #: [id number] Ordered : 03/28/20 Collected : 03/28/20 By: [...] Supporting Document(s) SODIUM 141 MEQ/L 135-[address] [facility] POTASSIUM 4.7 MEQ/L 3.5-5.3 [facility] CHLORIDE 108 MEQ/L 94-110 [facility] CARBON DIOXIDE 27 MEQ/L 22-33 [facility] ANION GAP 11 5-16 [facility] BLOOD UREA NITRO 6 MG/DL 7-[address] [facility] CREATININE 0.8 MG/DL 0.6-1.4 [facility] GFR 79.0 ML/MIN [facility] Stage G2 - Mildly decreased kidney func tion The GFR is an estimate of the Glomerular Filtration Rate. It is an aid to assess a patient's renal function. It is not a conclusive diagnosis of kidney disease. GFR normal is >=90 The MDRD GFR calculation is considered valid between the ages of 18 and 75 years only. BUN/CREAT RATIO 7 8-[address] [facility] GLUCOSE 85 MG/DL 70-100 [facility] CA 9.2 MG/DL 8.7-10.5 [facility] BILIRUBIN,TOTAL 0.4 MG/DL 0.1-1.3 [facility] AST 35 U/L 5-40 [facility] ALT 30 U/L 5-48 [facility] ALKALINE PHOSPHATASE 67 U/L 40-140 [facility] TOTAL PROTEIN 5.9 G/DL 5.9-8.[address] [facility] ALBUMIN 4.1 G/DL 3.0-5.1 [facility] GLOBULIN 1.8 G/DL 1.5-3.5 [facility] ALB/GLOB RATIO 2.3 G/DL 1.0-3.0 [facility] ID Date Data Source [id number] 03/28/2020 10:13:[address] [facility] Run: 04/02/20 1112 INTERFACED REPORT Name: Madhavi Montalvo Age/Sex: 39/F Location: [facility] Acct: [id number] Unit: [id number] Status: ADM IN Room/Bed: 311-A Re03/28/20 Disch: Glenn Dr: Samina Dixon CHIEF POWER DISPATCHER Specimen #: [id number] Ordered : 03/28/20 Collected : 03/28/20 By: [...] Supporting Document(s) PTT 32.3 SEC 22.2-34.9 N [facility] ID Date Data Source [id number] 03/28/2020 10:23:00 AM EDT [facility] Run: 04/02/20 1112 INTERFACED REPORT Name: Madhavi Montalvo Age/Sex: 39/F Location: [facility] Acct: [id number] Unit: [id number] Status: ADM IN Room/Bed: 311-A Re03/28/20 Disch: Glenn Dr: Samina GARCIA Specimen #: [id number] Ordered : 03/28/20 Collected : 03/28/20 By: [...] TROPONIN I < 0.006 NG/ML 0.000-0.040 [facility] 0.000 - 0.040 Normal. 0.041 - 0.779 S uspect myocardial injury. Repeat testing recommended. >= 0.780 Meets WHO criteria cutoff for AMI. ID Date Data Source [id number] 03/28/2020 09:52:00 AM EDT [address] [address] HEALTH INFORMATION MANAGEMENT ED/UC Physician Report : [id number] Signed Patient: Madhavi Montalvo Acct:[id number] Unit: [id number] : 1980 Arrival Date: 03/28/20 Age/Sex: 39 / F Arrival Time: 918 Copies to: PCP,No General Adult HPI/ROS General Chief Complaint: Complex/Multi-System Present Stated Complaint: Headache Stated Complaint: Headache Source: Patient, RN notes reviewed and I have reviewed available Ancillary/nursing staff documentation ( care home) Mode of arrival: EMS Limitations: Reports No [...] any known exposures however she is a care home resident. Patient denies any other associated symptoms at this time. Related Data Home Medications Medication Instructions Recorded acetaminophen [Tylenol] 650 mg PO Q6H PRN MDD 3 Grams 03/28/20 albuterol sulfate 2 puff INHALATION QID PRN 03/28/20 baclofen 5 mg PO BID PRN 03/28/20 bisacodyl 10 mg SD DAILY PRN 03/28/20 budesonide-formoterol [Symbicort] 2 puff [...] tartrate [Lopressor] 50 mg PO Q12H 03/28/20 bfwhcycwxuds-mvv-prql-FA-vit K 1 tab PO DAILY 03/28/20 [Multi-Day [...] Social History Other: currently living at a care home following 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 Waiting for placement current History of Smoking/Tobacco Use: Former Smoker Alcohol use: Reports History of use Drug use: Reports History of use Occupation: disabled Lives with: Reports Prison PMH/PSH PMH/PSH Surgical History Gastric bypass status [...] Skin exam: Dry, Intact and Warm; negative [place] ( pale) Course Reevaluation(s) Reevaluation #1: patient does reports some improvement after medications. patient remains without any focal neurological deficits. Patient is alert and oriented x3. Patient is in agreement with discharge back to the care home. Did discuss extensively with patient the need to find differentplacement as this does not appear appropriate for her. Patient is in agreement with this. Patient is in no acute distress in agreement with discharge. Time: 11:29 Reevaluation #2: Adilene bedside RN Attempted to give report to the care home. Patient unable toreturn until her COVID testing [...] reports that her upper Imitrex at the care home which was not working. Patient is also complaining of cough shortness of breath and chills. Patient is currently a [facility] resident. COVID precautions were initiated a [...] 0952 Signed by: Julito Cameron NP 03/28/20 0339 Mirtha Henry MD 03/28/20 1729 Name Value Range Interpretation Code Description Data Elizabeth rce(s) Supporting Document(s) ID Date Data Source [id number] 03/28/2020 09:47:00 AM EDT [facility] Name Value Range Interpretation Code Description Data Elizabeth rce(s) Supporting Document(s) 2019-nCoV N XXX Ql MARIAN N2 [facility] [place] This lab was ordered by [facility] and reported by MARICEL. ID Date Data Source [id number] 03/30/2020 01:20:[address] [facility] Name Value Range Interpretation Code Description Data Elizabeth rce(s) Supporting Document(s) COVID [address] [facility] Virology Laboratory Phone: Testing performed at [place]# [id number] Specimen Id: [id number] Specimen Type: Nasopharyngeal Swab 2019 nCoV Real-Time RT-PCR: Not Detected 03/30/2020 NOTE: The [facility] is approved by the Centers for Disease [...] websites for health care providers and patients. https://www.fda.gov/media/490538/download https://www.fda.gov/media/238885/download This reportable disease test result has been posted on [employer], the [facility] Electronic Clinical Laboratory Reporting System, in accordance with [facility] Public Health Law, and is available to local and/or state health officials [place]. [place] [address] CLIA# [id number] [address] [address] CLIA# [id number] [address] [address] CLIA# [id number] ID Date Data Source [id number] 03/28/2020 11:12:00 AM EDT [facility] Run: 03/29/20 08 INTERFACED REPORT Name: Madhavi Montalvo Age/Sex: 39/F Location: [facility] Acct: [id number] Unit: [id number] Status: ADM IN Room/Bed: 412-A Re03/28/20 Disch: Glenn Dr: Sandee Grullon MD Specimen #: [id number] Ordered : 03/28/20 Collected : 03/28/20 By: LAURO Received: 03/28/20 By: BERONICA Source: URINE CC Specimen Description: Procedure Result - COLONY COUNT Final COLONY COUNT GREATER THAN 100,000 CFU/ML URINE CULTURE Final PRESENCE OF 3 OR MORE ORGANISMS-SPECIMEN MAY BE CONTAMINATED SUGGEST REPEAT END OF REPORT Name Value Range Interpretation Code Description Data Elizabeth rce(s) Supporting Document(s) COLOR,UR AARON YELLOW [facility] APPEARANCE,UR CLOUDY CLEAR [facility] PH,UR 6.0 5.0-8.0 [facility] SPECIFIC GRAVITY,UR 1.006 1.002-1.035 [facility] PROTEIN,UR NEGATIVE MG/DL NEGATIVE [facility] GLUCOSE, UR NEGATIVE MG/DL NEGATIVE [facility] KETONES,UR NEGATIVE MG/DL NEGATIVE [facility] OCCULT BLOOD,UR NEGATIVE NEGATIVE [facility] NITRATE,UR NEGATIVE NEGATIVE [facility] LEUKOCYTE ESTERASE ,UR SMALL NEGATIVE [facility] BILIRUBIN,UR NEGATIVE NEGATIVE [facility] UROBILINOGEN,UR 0.2-1.0 EU MG/DL NEG-0-1.0 [facility] RBC,UR 1-2 PER HPF 0-2 [facility] WBC,UR 25-49 PER HPF <5 [facility] URINE EPITH MODERATE PER/LPF FEW-MOD [facility] BACTERIA,UR MODERATE PER HPF NONE [facility] MUCUS,UR RARE PER HPF NONE SEEN [facility] ID Date Data Source [id number] 03/29/2020 08:22:00 AM EDT [facility] Run: 03/29/20821 INTERFACED REPORT Name: SelvinMadhavi Age/Sex: 39/F Location: [facility] Acct: [id number] Unit: [id number] Status: ADM IN Room/Bed: 412-A Re03/28/20 Disch: Glenn Dr: Sandee Grullon MD Specimen #: [id number] Ordered : 03/28/20 Collected : 03/28/20 By: LAURO Received: 03/28/20 By: BERONICA Source: URINE CC Specimen Description: Procedure Result - COLONY COUNT Final COLONY COUNT GREATER THAN 100,000 CFU/ML URINE CULTURE Final PRESENCE OF 3 OR MORE ORGANISMS-SPECIMEN MAY BE CONTAMINATED SUGGEST REPEAT END OF REPORT Name Value Range Interpretation Code Description Data Elizabeth rce(s) Supporting Document(s) ID Date Data Source [id number] 03/28/2020 10:08:[address] [facility] Name Value Range Interpretation Code Description Data Elizabeth rce(s) Supporting Document(s) Lactic Acid,P 0.8 mmol/L 0.5-2.[address] [facility] ID Date Data Source [id number] 03/28/2020 09:37:[address] [facility] Name Value Range Interpretation Code Description Data Elizabeth rce(s) Supporting Document(s) EKG/ECG IN ED [facility] [file] UvYa33RR5tfJVcQWPCNEMWHBRQKWVKGCVKDLFWVTBLPKMJPSDHLRRHCwU/D/UGuP4WpwLz6OjUiqLmEh ytIsiI5+8yRtHHsBPHlrndiuurxDQv+Eh/4SDTPM/4 WL/eq5gQ4r1n3x3Gcf85+04/k9cL7hbt09bafYJe54ZJYWQTVGHIe/8Axd//AKkb/uUb93wxyd3cEqAf ZsDdikoELeeUL77RcrtoBwWJL3oUtITE3HzPYtD5441GfWrkR15Q+Lb+5dRS4MtIcJO9zua1cVxtpNTg bEmYEBJGZQ3kbSLU9v/8IjY/2p9u+8byJu4zoojZo+ Y3k+zu42oe5r8dvTll4YuJLZRVKPEGWCMVXsyxHdBxfW4x9m2uqukqBkQtAvFmuNFaN6O1E5+Hep+Jose Alberto [file] u2AXiJ90u46wz49rFYMzPN+V+5tKH70rt664RAM2d7 [employer]/Auxq8Uef9QD3AAOPjk7SaOODkL/SQUztzG0uVpjg26keD5PO+p89hhfWIs71+1SK3vH0YDSd9dlQX [file] ooqDEKKKKACiiigAooooAKKKKACiiigAooooAKKKKACiiigAooooAKKKKACiiigAooooAKKKKACiiigA ooooAKKKKACiiigDm/E/37b/AIF/HaZcnjFapayh3lObepfAzfwi15/6nRfrN/4KPQFi2Cm/8NnjtLRR BR8iAbPMFm7R5Ma0g6Vr+vYf+rYtg9LK4ttdwe/gQU UUVRuFeTfG/wD1Oi/Wb/7GgwcjdD3/0tVCxKGXxCXTavvzU2E7Jj5DZr3I/r2H/wPi2hsamZ1Ed3v5FL GASTljKc1mm/1Oi/Wb/wBkooqZbGNf+Omk6vijiD0aFZgjaC5V5Vl2u6Pk+vYf+eGrx1ZI6xvuai/gQU UUVRuFeTfG/wD1Oi/Wb/6AbhjcpZ8/4bPHaWiiszyw pKKKAPUPgp/yHdR/69h/9CG8lketWZg9hX+DSVREWN6Q7H8w/oZD2R7Ha/ZKKKmWxjX/AIbPHaWiiszz ApKKKBHqHwU/5Duo/jQLbX7J5MH8PNZHuxo13L3JGasaiuuvY8o+N/8AqdF+s3/slFFTLYxr/wANnjtF AECypcEMQKY9t8ED+Q7qP/XsP/HgXluGFfL2UQu/wI TPLOx9Ncwu3/yEn/65H+YooqXsY1/4cjrKKKKzPKCiiigAooooAKKKKACiiigAooooAKKKKACiiigAoo ooAKKKKACiiigAooooAKKKKACiiigAooooAKKKKACiiigD/9cJZzMvAAV7fbJzxQ6WEH8as3EbAShnUm BpTZ7vtg5OHAdzCYgmCY9RTolYxK9aIzX9S5NeifV4 UJI2B2YjfITqbf9RiRV2ULAsM82pII1CAK4tvOzyQEdqDa7HMcG3ffUizK4KsGgkvBOQzlPDxRbZ/3Bj X0XPXsbE0URUNwlyuLNTjoZRrRTkc3+SNnD8Y9N87922GqltHEpuRkTYNllAxsdKuOmoPCKzubcftBmF jfUtaBEZYpyOdEgqqzRGEMi2erioeU0IAKc/gGOyzP e+I5QCwQQGbuKRfDwZsJwqKMNPDR9/tcWGIpjluSZoqSWr6OLFzffsWV5Mkc7dEK0JiMzqw+AZ1AfduM xcoPvvSJ1fwJA4U5n3H/Sj2MIU225BEH5NIMbeavWmdCKvVO6VKvMqEV3jip4MLAuwYDDiXloPYfg5R7 Rvx6O8Z1LeBM1/CV0SjSRoEGIEjmBrQS2UIlF8SO2B GENAIXJXKyCuRXJFNRZoZYkOfoDaSCDTXNHnWNOILNL2WI6LlxRhbP7zLB6/CL8JfSOuBOLZdoHhAU5Q HaA6ZO7XAXMYJMFEWtScJDQNJYDnDVfFdcHuKMYYQBTwGTHUCSE9QA2CgjFwiChphkAriMWwXVyqEFIn HIFwIpJjDip4XkchI12wOSRplAGsDDnfPXUyZQKyZk ZkSem6NtfgLb4SSwJiBP4dtb6PFNheNGVgAznKAfcgBpVeSSKXHmYhMD4qqh6HVrByPIEnWexFUzofEh HxOZSUIgIdMO2tud8KZvUyGJQzRkbDEjh9G1Q8nFXwLKLvJk0UjIkyXKRoM5unKJNuBOQlFMZpOl8bnI JbEFOaLq0TnhAgREC4NHZjOi3AFYq6HJF9ATF7AJO1 XeG1Erk7OTnWB0BAMXT5KXaxLUK3DRP+ONOXFBBdLDUdUtOtCOD8TFI1H3MLMgZPNNK4NND0NgSbTx7f K4SwpNEqja6DzTV2WIFnS96wRG8GYV5elDzcUGl+El2Wr8EmJFEmGBm2dOCxZKQ//cnCbUOXL0tonTTp jKEkDWAOyX6GRK8HLmdNFOeUI8tafTNlbJgQOLrxNI xCCcVAYXHDtfDMnRWVRHZICeXgMM6CtcNJCATovsTVAUm4NUMAOjMvPMH2ssZcjY6HOI0kg8VvIMk1co JySPgxMRNwCPpiKQMnDFRqJJTaCIF8UZY1KPOBAeWqWWLlEVOlXJfnBSGeNWKzyq9GFYBzBDThOVTmNW YqSXOwJGLeEMelEZOwNPLvWEacDGWuLFUxBV1HFuIa GWToFVY7AIKvDKXkWQIona5VNUJoTTWlHNfmWYWzIVXcZXSrBHpmXTOtXSFsDPIyUNOuDXFmFL4WCgJx WKQoYVUoFPSiRAOeJCUffm0WYYIuCDIhOVOaSjVkIXLpLDTkYZcjMQTaDYMsKKD0JWLqTTUjJO9EKoSr KWHxQGOhSSKuSeG3VmFtSr1MKNGjZTAmREHcSrO7BI RnVREpCUfeSBFqXLTqHYDbJWE5VXX5OBRHXqQiDNExOJYuCTFmXgW2CtRxNt7BGKTeOGAeHEEkSBV4KV YtBJQeJImvTZXiJZEuEKA6IRV5BPT9GIGITuJlZZTkGTGrHQpuXbR2FtXyXj6CJSRvUVEiHZJjRRJ5IS UzVODzMKcfNHToJtFxUCF9ZKNeJTKwDT9QWyLkUTJz UPImQnQjEXIiLIHmcx9SQPMgDIPqUuD0ZWEdGEPnRKQtKVxzYPIvVdBwOrG5HLAlQXCvTH7QSzQbGMde KWOYVtf2H1QdrxDhJwZlXr5sbVXxRSNrUw6ZpyCcAHF6MVCeBm6VGXl6HQH8NYZ3ZJT3IyY6Gcd5OSnM H4KTTQE8MNhvIIM4ESB+ASICKZCjXXAnEjPlIYA9AF E6A6MKCtQMTPV6KEO8SfLpMq4ySt7UHaI8WIE9xNQaFo9LGfVgVzObXDtaJBVSQa7FhLWaEc1AWDZoGW q9siNydPGeHSg3WU6EhItjNUIrE2Xlp5AwYXHbGDXoRG4dixGcDHAbZZCfRLCmFGWELMTmHFNiItOpJJ V6YUF0P9EUYdCVLKO0EUP0WbWgNnn9OQS0DMHBKFg6 WwCuFaNvINQWDoZ3WIpGUFENYPE5YJ2dDB0RthO3JFUyCsWaDt4IBzAwM8HsTLXbPuKtFz4+DQpzdGFy aCioMYNYViIbLpReDR3TQYWQC2U= ID Date Data Source [id number] 03/26/2020 07:52:00 AM EDT [facility] Name Value Range Interpretation Code Description Data Elizabeth rce(s) Supporting Document(s) SODIUM 143 MEQ/L 135-145 N [facility] POTASSIUM 4.4 MEQ/L 3.5-5.3 N [facility] CHLORIDE 108 MEQ/L 94-110 N [facility] CARBON DIOXIDE 28 MEQ/L 22-33 N [facility] ANION GAP 11 5-16 N [facility] BLOOD UREA NITRO 6 MG/DL 7-25 L [facility] CREATININE 0.6 MG/DL 0.6-1.[address] [facility] GFR > 90.0 ML/MIN [facility] Stage G1 - Normal or high [...] years only. BUN/CREAT RATIO 10 8-36 N [facility] GLUCOSE 72 MG/DL 70-100 N [facility] [place] 9.1 MG/DL 8.7-10.5 N [facility] ID Date Data Source [id number] 02/29/2020 11:07:26 AM EDT [facility] [place] HISTORY: 2 view chest for shortness of b reathComparison studies: NoneFINDINGS: There is normal size and configuration of thecardiomediastinal silhouette and pulmonary vascular shadows. The lungsare clear.IMPRESSION: No intrathoracic abnormality.THIS IS AN ELECTRONICALLY SIGNED REPORT IN [facility] BY:Mathieu Patel M.D. 02/29/2020 11:04The results were provided by [facility], to the facility. Name Value Range Interpretation Code Description Data Elizabeth rce(s) Supporting Document(s) ID Date Data Source [id number] 02/25/2020 06:03:11 PM EDT [facility] Exam: Abdominal radiographsHISTORY: pain , nauseaCOMPARISON: 01/16/2020TECHNIQUE: Supine and upright images of the abdomen and pelvis.FINDINGS:The bowel gas pattern is non-obstructive.There is no evidence of intraabdominal free air.There is a small amount of fecal material.The lung bases are unremarkable.The osseous structures and soft tissues are unremarkable.IMPRESSION: Non-obstructive bowel gas pattern. Small amount of fecalmaterial.THIS IS AN ELECTRONICALLY SIGNED REPORT IN [facility] BY:Karan Dinh M.D. 02/25/2020 18:00The results were provided by [facility], to the facility. Name Value Range Interpretation Code Description Data Elizabeth rce(s) Supporting Document(s) ID Date Data Source [id number] 01/16/2020 05:00:14 PM EST [facility], [place] HISTORY: Abdominal painTechnique: 2 imag es of the abdomen are submitted.COMPARISON: NoneFINDINGS: Moderate gas throughout the large and small bowel in anonobstructive pattern. Gas and stool in the descending colon. Minimalstool in the rectum.No free intraperitoneal air.There are no diagnostic calcifications, organomegaly, nor masses seen.The bony structure is intact.IMPRESSION: Radiographic features suggest generalized ileus.THIS IS AN ELECTRONICALLY SIGNED REPORT IN [id number] BY:Augie Ny M.D. 01/16/2020 16:57The results were provided by [facility], to the facility. Name Value Range Interpretation Code Description Data Elizabeth rce(s) Supporting Document(s) ID Date Data Source [id number] 01/12/2020 07:41:00 AM [facility] Name Value Range Interpretation Code Description Data Elizabeth rce(s) Supporting Document(s) VITAMIN B12 304 PG/ML 211-[address] [facility] ID Date Data Source [id number] 01/12/2020 07:41:00 AM [facility] Name Value Range Interpretation Code Description Data [facility] rce(s) Supporting Document(s) FOLATE > 24.00 NG/ML 3.40-24.00 H [facility] ID Date Data Source [id number] 12/07/2019 07:33:00 AM [facility] Name Value Range Interpretation Code Description Data [facility] rce(s) Supporting Document(s) WHITE BLOOD COUNT 5.31 10^3/uL 4.00-10.50 N [facility] RED BLOOD COUNT 4.05 10^6/uL 3.90-5.20 N [facility] th HEMOGLOBIN 11.9 G/DL 11.5-15.[address] [facility] HEMATOCRIT 35.6 % 35.0-46.[address] [facility] MCV 87.9 FL 80.0-100.[address] [facility] MCH 29.4 PG 27.0-34.[address] [facility] MCHC 33.4 G/DL 32-[address] [facility] RDW 14.2 % 11.5-14.[address] [facility] PLATELET COUNT 207 10^3/uL 130-[address] [facility] MPV 11.5 FL 8.7-13.[address] [facility] ID Date Data Source [id number] 12/07/2019 07:48:[address] [facility] Name Value Range Interpretation Code Description Data Elizabeth rce(s) Supporting Document(s) SODIUM 143 MEQ/L 135-[address] [facility] POTASSIUM 4.6 MEQ/L 3.5-5.[address] [facility] CHLORIDE 109 MEQ/L 94-[address] [facility] CARBON DIOXIDE 29 MEQ/L 22-[address] [facility] ANION GAP 10 5-[address] [facility] BLOOD UREA NITRO 15 MG/DL 7-[address] [facility] CREATININE 0.6 MG/DL 0.6-1.[address] [facility] GFR > 90.0 ML/MIN [facility] Stage G1 - Normal or high kidney functi on GFR normal is >=90 The MDRD GFR calculation is considered valid between the ages of 18 and 75 years only. The GFR is an estimate of the Glomerular Filtration Rate. It is considered accurate in evaluating patients with Chronic Kidney Disease,but may underestimate kidney function in Healthy Patients. BUN/CREAT RATIO 25 8-[address] [facility] GLUCOSE 87 MG/DL 70-[address] [facility] CA 9.5 MG/DL 8.7-10.[address] [facility] ID Date Data Source [id number] 12/07/2019 07:48:[address] [facility] Name Value Range Interpretation Code Description Data Elizabeth rce(s) Supporting Document(s) TSH 1.627 uIU/ML 0.470-4.[address] [facility] Patients should not be tested for 70 ho urs post fluorescein dye angiography. A false depression of result may occur. Procedure Social History Code Duration Value Status Description Data Source(s ) Smoking 01/02/2021 12:00:00 AM EST Unknown if ever smoked comp leted Unknown if ever smoked [facility] ([facility]) Smoking 12/21/2020 12:00:00 AM EST Unknown if ever smoked comp leted Unknown if ever smoked [facility] ([facility]) Alcohol intake 12/03/2020 12:00:00 AM EST Current non-d katty of alcohol (finding) completed Current non-drinker of alcohol (finding) [facility] Tobacco use and exposure 12/03/2020 12:00:00 AM EST Never used co mpleted Never used [facility] Cigarette pack-years 12/03/2020 12:00:00 AM EST UNK completed [facility] Cigarettes smoked current (pack per day) - Reported 12/03/19 12:00:00 AM EST UNK completed [facility] Smoking 12/03/2020 12:00:00 AM EST Current every day smoker co mpleted Current every day smoker [facility] 05/09/2020 03:54:00 AM EDT Former Smoker completed Former Smoker [facility] Smoking 05/09/2020 03:54:00 AM EDT Ex-smoker (finding) complet ed Ex-smoker (finding) [facility] 04/16/2020 12:00:00 AM EDT Current Cigarette Smoker 1 Pack Daily completed Current Cigarette Smoker 1 Pack Daily [facility] ([facility]) 03/28/2020 05:53:00 PM EDT Former Smoker completed Former Smoker [facility] Smoking 03/28/2020 05:53:00 PM EDT Ex-smoker (finding) complet ed Ex-smoker (finding) [facility] 03/28/2020 05:53:00 PM EDT Former Smoker completed Former Smoker [facility] Smoking 03/28/2020 05:53:00 PM EDT Ex-smoker (finding) complet ed Ex-smoker (finding) [facility] 03/28/2020 05:53:00 PM EDT Former Smoker completed Former Smoker [facility] Smoking 03/28/2020 05:53:00 PM EDT Ex-smoker (finding) complet ed Ex-smoker (finding) [facility] 03/28/2020 02:41:29 PM EDT Former Smoker completed Former Smoker [facility] Smoking 03/28/2020 02:41:00 PM EDT Ex-smoker (finding) complet ed Ex-smoker (finding) [facility] Vital Signs ID Date Data Source UNK Name Value Range Interpretation Code Description Data Source(s) Body height 67 [in_i] 67 [in_i] RUBY ([facility]) Diastolic blood pressure 100 mm[Hg] 100 mm[Hg] RUBY ([facility]) Body weight 3078.4 [oz_av] 3078.4 [oz_av] ATHEN A ([facility]) Systolic blood pressure 144 mm[Hg] 144 mm[Hg] A THENA ([facility]) Body mass index (BMI) [Ratio] 30.1 kg/m2 30.1 k g/m2 RUBY ([facility]) Body weight 198 [lb_av] 198 [lb_av] RUBY ([facility]) Systolic blood pressure 107 mm[Hg] 107 mm[Hg] A THENA ([facility]) Body mass index (BMI) [Ratio] 31 kg/m2 31 kg/ m2 RU[facility] ([facility]) Body height 67 [in_i] 67 [in_i] RUBY ([facility]) Diastolic blood pressure 74 mm[Hg] 74 mm[Hg] RUBY ([facility]) Diastolic blood pressure 91 mm[Hg] 91 mm[Hg] RUBY ([facility]) Body weight 3179.2 [oz_av] 3179.2 [oz_av] ATHEN A ([facility]) Systolic blood pressure 125 mm[Hg] 125 mm[Hg] A THENA ([facility]) Body mass index (BMI) [Ratio] 31.1 kg/m2 31.1 k g/m2 RUBY ([facility]) Body height 67 [in_i] 67 [in_i] RUBY ([facility]) Diastolic blood pressure 91 mm[Hg] 91 mm[Hg] RUBY ([facility]) Body weight 3179.2 [oz_av] 3179.2 [oz_av] ATHEN A ([facility]) Systolic blood pressure 125 mm[Hg] 125 mm[Hg] A THENA ([facility]) Body mass index (BMI) [Ratio] 31.1 kg/m2 31.1 k g/m2 RUBY ([facility]) Body height 67 [in_i] 67 [in_i] RUBY ([facility]) Body weight 3334 [oz_av] 3334 [oz_av] RUBY ([facility]) Systolic blood pressure 141 mm[Hg] 141 mm[Hg] A THEN ([facility]) Body mass index (BMI) [Ratio] 32.6 kg/m2 32.6 k g/m2 RUBY ([facility]) Body height 67 [in_i] 67 [in_i] RUBY ([facility]) Diastolic blood pressure 83 mm[Hg] 83 mm[Hg] RUBY ([facility]) Body weight 3334 [oz_av] 3334 [oz_av] RUBY ([facility]) Systolic blood pressure 141 mm[Hg] 141 mm[Hg] A THENA ([facility]) Body mass index (BMI) [Ratio] 32.6 kg/m2 32.6 k g/m2 RUBY ([facility]) Body height 67 [in_i] 67 [in_i] RUBY ([facility]) Diastolic blood pressure 83 mm[Hg] 83 mm[Hg] RUBY ([facility]) Body weight 3334 [oz_av] 3334 [oz_av] RUBY ([facility]) Systolic blood pressure 141 mm[Hg] 141 mm[Hg] A THENA ([facility]) Body mass index (BMI) [Ratio] 32.6 kg/m2 32.6 k g/m2 RUBY ([facility]) Body height 67 [in_i] 67 [in_i] RUBY ([facility]) Diastolic blood pressure 83 mm[Hg] 83 mm[Hg] RUBY ([facility]) Body weight 3235.2 [oz_av] 3235.2 [oz_av] ATHEN A ([facility]) Systolic blood pressure 114 mm[Hg] 114 mm[Hg] A THENA ([facility]) Body mass index (BMI) [Ratio] 31.7 kg/m2 31.7 k g/m2 RUBY ([facility]) Body height 67 [in_i] 67 [in_i] RUBY ([facility]) Diastolic blood pressure 77 mm[Hg] 77 mm[Hg] RUBY ([facility]) Body weight 3235.2 [oz_av] 3235.2 [oz_av] ATHEN A ([facility]) Systolic blood pressure 114 mm[Hg] 114 mm[Hg] A TAMRAA ([facility]) Body mass index (BMI) [Ratio] 31.7 kg/m2 31.7 k g/m2 RUBY ([facility]) Body height 67 [in_i] 67 [in_i] RUBY ([facility]) Diastolic blood pressure 77 mm[Hg] 77 mm[Hg] RUBY ([facility]) Body weight 3235.2 [oz_av] 3235.2 [oz_av] ATHSHONDA A ([facility]) Systolic blood pressure 114 mm[Hg] 114 mm[Hg] A TAMRAA ([facility]) Body mass index (BMI) [Ratio] 31.7 kg/m2 31.7 k g/m2 RUBY ([facility]) Body height 67 [in_i] 67 [in_i] RUBY ([facility]) Diastolic blood pressure 77 mm[Hg] 77 mm[Hg] RUBY ([facility]) Body weight 3235.2 [oz_av] 3235.2 [oz_av] ATHEN A ([facility]) Systolic blood pressure 114 mm[Hg] 114 mm[Hg] A TAMRAA ([facility]) Body mass index (BMI) [Ratio] 31.7 kg/m2 31.7 k g/m2 RUBY ([facility]) Body height 67 [in_i] 67 [in_i] RUBY ([facility]) Diastolic blood pressure 77 mm[Hg] 77 mm[Hg] RUBY ([facility]) Diastolic blood pressure 77 mm[Hg] 77 mm[Hg] [employer] Systolic blood pressure 112 mm[Hg] 112 mm[Hg] O [facility] Oxygen saturation in Arterial blood by Pulse oximetry 98 % 98 % [facility] Respiratory rate 16 /min 16 /min [facility] Heart rate 68 /min 68 /min [facility] Body temperature 98.3 [degF] 98.3 [degF] [facility] Body weight 70.00 kg 70.00 kg [facility] Body mass index (BMI) [Ratio] 25.1 kg/m2 25.1 k g/m2 [facility] ([facility]) Body weight 70.478 kg 70.478 kg [facility] ([facility] Body weight 155.38 [lb_av] 155.38 [lb_av] MEDEN T ([facility]) Body height 66 [in_i] 66 [in_i] [facility] ([facility]) 5'6" Diastolic blood pressure 74 mm[Hg] 74 mm[Hg] [facility] Systolic blood pressure 125 mm[Hg] 125 mm[Hg] O [facility] Heart rate 60 /min 60 /min [facility] Diastolic blood pressure 74 mm[Hg] 74 mm[Hg] [facility] Systolic blood pressure 125 mm[Hg] 125 mm[Hg] O [facility] Heart rate 60 /min 60 /min [facility] Diastolic blood pressure 74 mm[Hg] 74 mm[Hg] [facility] Systolic blood pressure 125 mm[Hg] 125 mm[Hg] O [facility] Heart rate 60 /min 60 /min [facility] Oxygen saturation in Arterial blood by Pulse oximetry 100 % 100 % [facility] Respiratory rate 16 /min 16 /[facility] temperature 98.4 [degF] 98.4 [degF] [facility] Oxygen saturation in Arterial blood by Pulse oximetry 100 % 100 % [facility] Respiratory rate 16 /min 16 /min [facility] 98.4 [degF] 98.4 [degF] [facility] Oxygen saturation in Arterial blood by Pulse oximetry 100 % 100 % [facility] Respiratory rate 16 /min 16 /min [facility] temperature 98.4 [degF] 98.4 [degF] [facility] Body mass index (BMI) [Ratio] 26.1 kg/m2 26.1 k g/m2 [facility] Body height 165.00 cm 165.00 cm [facility] Body mass index (BMI) [Ratio] 26.1 kg/m2 26.1 k g/m2 [facility] Body height 165.00 cm 165.00 cm [facility] Body mass index (BMI) [Ratio] 26.1 kg/m2 26.1 k g/m2 [facility] Body height 165.[address] cm [address] [facility] Body weight 71.20 kg 71.20 kg [facility] Body weight 71.20 kg 71.20 kg [facility] Body weight 71.20 kg 71.[address] [facility] Diastolic blood pressure 75 mm[Hg] 75 mm[Hg] [employer] Systolic blood pressure 130 mm[Hg] 130 mm[Hg] [facility] Oxygen saturation in Arterial blood by Pulse oximetry 100 % 100 % [facility] Respiratory rate 18 /min 18 /min [facility] Heart rate 53 /min 53 /min [facility] Body temperature 98.2 [degF] 98.2 [degF] [employer] [employer] Body weight 70.00 kg 70.00 kg [facility] Body height 165.1 cm 165.[address] [facility] ID Date Data Source [id number] 12/14/2020 08:08:27 AM [facility] Name Value Range Interpretation Code Description Data Source(s) WEIGHT RECORDED 207.01 lb 207.01 lb [facility] ID Date Data Source [id number] 03/06/2020 02:08:00 PM EDT [facility] Name Value Range Interpretation Code Description Data Source(s) WEIGHT 81.5 kilos 81.5 kilos [facility] HEIGHT 167.64 centimeters 167.64 centimeter s [facility] WEIGHT 85 kilos 85 kilos [facility] HEIGHT 167.64 centimeters 167.64 centimeter s [facility] WEIGHT 83 kilos 83 kilos [facility] HEIGHT 167.64 centimeters 167.64 centimeter s [facility] WEIGHT 86 kilos [facility]ilos [facility] HEIGHT 167.64 centimeters 167.64 centimeter s [facility] WEIGHT 84.9 kilos 84.9 kilos [facility] HEIGHT 167.64 centimeters 167.64 centimeter s [facility] WEIGHT 88 kilos 88 kilos [facility] HEIGHT 167.64 centimeters 167.64 centimeter s [facility] WEIGHT 84 kilos 84 kilos [facility] HEIGHT 167.64 centimeters 167.64 centimeter s [facility] WEIGHT 79.4 kilos 79.4 kilos [facility] HEIGHT 167.64 centimeters 167.64 centimeter s [facility] WEIGHT 75.6 kilos 75.6 kilos [facility] HEIGHT 167.64 centimeters 167.64 centimeter [facility] WEIGHT 75.3 kilos 75.3 kilos [facility] HEIGHT 167.64 centimeters 167.64 centimeter [facility] WEIGHT 67.7 kilos 67.7 kilos [facility] HEIGHT 167.64 centimeters 167.64 centimeter [facility] Patient Treatment Plan of Care Planned Activity Planned Date Details Description Data Source (s) Hydroxychloroquine Sulfate 200 MG Oral Tablet 01/01/2021 12:00:00 A M [facility] Cyclobenzaprine hydrochloride 5 MG Oral Tablet 01/01/2021 12:00:00 AM [facility] duloxetine 60 MG Delayed Release Oral Capsule 01/01/2021 12:00:00 A M [facility] [place] Hydrochloride 5 MG Oral Tablet 01/01/2021 12:00:00 AM E [facility] Folic Acid 1 MG Oral Tablet 01/01/2021 12:00:00 AM [facility] Methotrexate 2.5 MG Oral Tablet 01/01/2021 12:00:00 AM [facility] gabapentin 400 MG Oral Capsule 01/01/2021 12:00:00 AM [facility] Zolpidem tartrate 10 MG Oral Tablet 01/01/2021 12:00:00 AM [facility] tizanidine 4 MG Oral Capsule 01/01/2021 12:00:00 AM [facility] Hydroxychloroquine Sulfate 200 MG Oral Tablet 12/18/2020 12:00:[address] [facility] RUBY ([facility]) Prochlorperazine 5 MG/ML Injectable Solution 12/03/2020 02:30:43 PM [facility] Acetaminophen 325 MG Oral Tablet 12/03/2020 12:00:00 AM [facility] Hydroxychloroquine Sulfate 200 MG Oral Tablet 12/02/2020 12:00:00 A M [facility] Zolpidem tartrate 6.25 MG Extended Release Oral Tablet 12/02/2020 12:00:00 AM [facility] Naproxen 500 MG Oral Tablet 07/26/2020 12:00:00 AM [facility] Folic Acid 1 MG Oral Tablet 07/26/2020 12:00:00 AM [facility] [place] Hydrochloride 5 MG Oral Tablet 07/26/2020 12:00:00 AM [facility] gabapentin 400 MG Oral Capsule 07/26/2020 12:00:00 AM [facility] Hydroxychloroquine Sulfate 200 MG Oral Tablet 07/26/2020 12:00:00 A M [facility] Methotrexate 2.5 MG Oral Tablet 07/26/2020 12:00:00 AM [facility] [place] Hydrochloride 5 MG Oral Tablet 08/30/2019 12:00:00 AM E [facility] Methotrexate 2.5 MG Oral Tablet 08/30/2019 12:00:00 AM [facility] Methotrexate 2.5 MG Oral Tablet 06/24/2019 12:00:00 AM [facility] Hydroxychloroquine Sulfate 200 MG Oral Tablet 06/24/2019 12:00:00 A M [facility] Folic Acid 1 MG Oral Tablet 06/24/2019 12:00:00 AM [facility] gabapentin 400 MG Oral Capsule 06/24/2019 12:00:00 AM [facility] Trazodone Hydrochloride 50 MG Oral Tablet RUBY ([facility]) topiramate 25 MG Oral Tablet RUBY ([facility]) Prednisone 5 MG Oral Tablet RUBY ([facility]) pantoprazole 40 MG Delayed Release Oral Tablet RUBY ([facility]) umeclidinium 0.0625 MG/ACTUAT Dry Powder Inhaler RUBY ([facility]) gabapentin 600 MG Oral Tablet RUBY ([facility]) gabapentin 300 MG Oral Capsule RUBY ([facility]) gabapentin 100 MG Oral Capsule RUBY ([facility]) Escitalopram 5 MG Oral Tablet RUBY ([facility]) duloxetine 30 MG Delayed Release Oral Capsule RUBY ([facility]) Cyclobenzaprine hydrochloride 10 MG Oral Tablet RUBY ([facility]) buspirone hydrochloride 5 MG Oral Tablet RUBY ([facility]) buspirone hydrochloride 15 MG Oral Tablet RUBY ([facility]) buspirone hydrochloride 10 MG Oral Tablet RUBY ([facility]) Baclofen 5 MG Oral Tablet AT CELE ([facility]) duloxetine 60 MG Delayed Release Oral Capsule [facility] Trazodone Hydrochloride 50 MG Oral Tablet RUBY ([facility]) tramadol hydrochloride 50 MG Oral Tablet RUBY ([facility]) Sumatriptan 25 MG Oral Tablet RUBY ([facility]) tiotropium 0.018 MG/ACTUAT Inhalant Powder [Spiriva] RUBY ([facility]) Prednisone 5 MG Oral Tablet RUBY ([facility]) Ondansetron 4 MG Disintegrating Oral Tablet RUBY ([facility]) umeclidinium 0.0625 MG/ACTUAT Dry Powder Inhaler RUBY ([facility]) Acetaminophen 325 MG / Hydrocodone Bitartrate 5 MG Oral Tablet RUBY ([facility]) gabapentin 400 MG Oral Capsule RUBY ([facility]) gabapentin 300 MG Oral Capsule RUBY ([facility]) gabapentin 100 MG Oral Capsule RUBY ([facility]) Escitalopram 5 MG Oral Tablet RUBY ([facility]) duloxetine 60 MG Delayed Release Oral Capsule RUBY ([facility]) buspirone hydrochloride 5 MG Oral Tablet RUBY ([facility]) buspirone hydrochloride 15 MG Oral Tablet RUBY ([facility]) buspirone hydrochloride 10 MG Oral Tablet RUBY ([facility]) Baclofen 5 MG Oral Tablet AT CELE ([facility]) Alprazolam 0.25 MG Oral Tablet RUBY ([facility]) Trazodone Hydrochloride 50 MG Oral Tablet RUBY ([facility]) Prednisone 5 MG Oral Tablet RUBY ([facility]) pantoprazole 40 MG Delayed Release Oral Tablet RUBY ([facility]) umeclidinium 0.0625 MG/ACTUAT Dry Powder Inhaler RUBY ([facility]) gabapentin 400 MG Oral Capsule RUBY ([facility]) gabapentin 300 MG Oral Capsule RUBY ([facility]) gabapentin 100 MG Oral Capsule RUBY ([facility]) Escitalopram 5 MG Oral Tablet RUBY ([facility]) duloxetine 60 MG Delayed Release Oral Capsule RUBY ([facility]) buspirone hydrochloride 5 MG Oral Tablet RUBY ([facility]) buspirone hydrochloride 15 MG Oral Tablet RUBY ([facility]) buspirone hydrochloride 10 MG Oral Tablet RUBY ([facility]) Baclofen 5 MG Oral Tablet AT [facility] ([facility]) Trazodone Hydrochloride 50 MG Oral Tablet RUBY ([facility]) pantoprazole 40 MG Delayed Release Oral Tablet RUBY ([facility]) Trazodone Hydrochloride 50 MG Oral Tablet RUBY ([facility]) Sumatriptan 50 MG Oral Tablet RUBY ([facility]) pantoprazole 40 MG Delayed Release Oral Tablet RU[facility] ([facility]) gabapentin 400 MG Oral Capsule RUBY ([facility]) gabapentin 300 MG Oral Capsule RUBY ([facility] Escitalopram 5 MG Oral Tablet RUBY ([facility]) duloxetine 60 MG Delayed Release Oral Capsule RUBY ([facility]) buspirone hydrochloride 5 MG Oral Tablet RUBY ([facility]) buspirone hydrochloride 10 MG Oral Tablet RUBY ([facility]) Baclofen 5 MG Oral Tablet AT [facility] [place] ([facility]) gabapentin 400 MG Oral Capsule RUBY ([facility]) gabapentin 300 MG Oral Capsule RUBY ([facility]) gabapentin 100 MG Oral Capsule RUBY ([facility]) Escitalopram 5 MG Oral Tablet RUBY ([facility]) duloxetine 60 MG Delayed Release Oral Capsule RUBY ([facility]) buspirone hydrochloride 5 MG Oral Tablet RUBY ([facility]) buspirone hydrochloride 10 MG Oral Tablet RUBY ([facility]) Budesonide 0.16 MG/ACTUAT / formoterol f umarate 0.0045 MG/ACTUAT Metered Dose Inhaler RUBY ([facility]) Baclofen 5 MG Oral Tablet AT [facility]) Naproxen 500 MG Oral Tablet [facility]
== END 2021-01-10 19:31 | disposition home or self-care (01) ==
LOC: M ED 18:02
DX: F33.9 Major depressive disorder, recurrent, unspecified (principal); I10 Essential (primary) hypertension; F17.200 Nicotine dependence, unspecified, uncomplicated; Z88.1 Allergy status to other antibiotic agents; Z88.2 Allergy status to sulfonamides; Z88.8 Allergy status to other drugs, medicaments and biological substances; Z79.899 Other long term (current) drug therapy

== ENCOUNTER → 2021-01-14 | Outpatient (REF) | payer MEDICARE, MEDICAID ==
[~2021-01-14] MED LIST changes: +NAPR-849 PO; -NAPR250T4 PO; -PEG1POW PO; +POLY17PO18 PO
== END ==
LOC: M LAB REF 20:15
PROVIDERS: ATTEND Pediatrics
DX: R74.8 Abnormal levels of other serum enzymes (principal)

== ENCOUNTER 2021-01-16 17:50 | Emergency (ER) | payer MEDICARE, MEDICAID ==
[~2021-01-16] VITALS: Ht 170.2 cm; Wt 86.0 kg
[2021-01-16 17:51] VITALS: BP 141/96
[2021-01-16 18:37] LABS: HEMATOCRIT 41.7 % (36.0-47.0); HEMOGLOBIN 13.4 g/dl (12.0-15.5); MEAN CORPUSCULAR HGB CONC 32.1 g/dl (32.0-36.5); MEAN CORPUSCULAR VOLUME 93.5 fl (80.0-96.0); PLATELET COUNT, AUTOMATED 297 10^3/uL (150-450); RED BLOOD COUNT 4.46 10^6/uL (4.00-5.40); WHITE BLOOD COUNT 6.7 10^3/uL (4.0-10.0)
[2021-01-16 19:05] LABS: HCG, SERUM QUALITATIVE NEGATIVE (NEGATIVE)
[2021-01-16 19:13] LABS: ACETAMINOPHEN LEVEL 2.8 UG/ML (10.0-30.0); ALBUMIN 3.1 GM/DL (3.2-5.2); ALT/SGPT 18 U/L (12-78); BILIRUBIN,DIRECT < 0.1 MG/DL (0.0-0.2); BILIRUBIN,TOTAL 0.2 MG/DL (0.2-1.0); BLOOD UREA NITROGEN 6 MG/DL (7-18); CALCIUM LEVEL 8.2 MG/DL (8.5-10.1); CARBON DIOXIDE LEVEL 23 MEQ/L (21-32); CHLORIDE LEVEL 115 MEQ/L (98-107); CREATININE FOR GFR 0.85 MG/DL (0.55-1.30); GLOMERULAR FILTRATION RATE > 60.0 (>58); GLUCOSE, FASTING 103 MG/DL (70-100); POTASSIUM SERUM 3.3 MEQ/L (3.5-5.1); SODIUM LEVEL 144 MEQ/L (136-145); THYROID STIMULATING HORMONE 0.226 uIU/ML (0.358-3.740); TOTAL PROTEIN 5.6 GM/DL (6.4-8.2)
[2021-01-16 19:14] LABS: ETHYL ALCOHOL (ETHANOL) < 0.003 % (0.000-0.010)
== END 2021-01-16 19:28 | disposition home or self-care (01) ==
LOC: M ED 17:50
DX: F31.9 Bipolar disorder, unspecified (principal); F20.9 Schizophrenia, unspecified; F79 Unspecified intellectual disabilities; M06.9 Rheumatoid arthritis, unspecified; M79.7 Fibromyalgia; M35.00 Sjogren syndrome, unspecified; F17.200 Nicotine dependence, unspecified, uncomplicated; Z88.1 Allergy status to other antibiotic agents; Z88.2 Allergy status to sulfonamides; Z88.8 Allergy status to other drugs, medicaments and biological substances; Z79.899 Other long term (current) drug therapy

== ENCOUNTER 2021-01-21 17:38 | Emergency (ER) | payer MEDICARE, MEDICAID ==
[~2021-01-21] VITALS: Ht 170.2 cm; Wt 89.5 kg
[2021-01-21 19:13] LABS: HEMATOCRIT 38.3 % (36.0-47.0); HEMOGLOBIN 12.3 g/dl (12.0-15.5); MEAN CORPUSCULAR HGB CONC 32.1 g/dl (32.0-36.5); MEAN CORPUSCULAR VOLUME 93.4 fl (80.0-96.0); PLATELET COUNT, AUTOMATED 247 10^3/uL (150-450); WHITE BLOOD COUNT 7.3 10^3/uL (4.0-10.0)
[2021-01-21] MEDS ORDERED: XANA0.5T PO (19:22)
[2021-01-21] MEDS ORDERED: GABA-845 PO (19:22)
[2021-01-21] MEDS ORDERED: TOPA50TA8 PO (19:22)
[2021-01-21] MEDS ORDERED: SING5CHW23 PO (19:22)
[2021-01-21] MEDS ORDERED: AMBI5TAB PO (19:22)
[2021-01-21] MEDS ORDERED: HYDR200T3 PO (19:22)
[2021-01-21] MEDS ORDERED: CYMB60CA3 PO (19:22)
[2021-01-21] MEDS ORDERED: CYCL5TAB PO (19:22)
[2021-01-21 19:45] LABS: ACETAMINOPHEN LEVEL 6.1 UG/ML (10.0-30.0); ALBUMIN 2.9 GM/DL (3.2-5.2); ALT/SGPT 15 U/L (12-78); BILIRUBIN,DIRECT < 0.1 MG/DL (0.0-0.2); BILIRUBIN,TOTAL 0.2 MG/DL (0.2-1.0); BLOOD UREA NITROGEN 9 MG/DL (7-18); CALCIUM LEVEL 7.9 MG/DL (8.5-10.1); CARBON DIOXIDE LEVEL 22 MEQ/L (21-32); CHLORIDE LEVEL 117 MEQ/L (98-107); CREATININE FOR GFR 0.91 MG/DL (0.55-1.30); ETHYL ALCOHOL (ETHANOL) < 0.003 % (0.000-0.010); GLOMERULAR FILTRATION RATE > 60.0 (>58); GLUCOSE, FASTING 82 MG/DL (70-100); POTASSIUM SERUM 3.7 MEQ/L (3.5-5.1); SALICYLATE LEVEL 4.6 MG/DL (5.0-30.0); SODIUM LEVEL 143 MEQ/L (136-145); THYROID STIMULATING HORMONE 0.309 uIU/ML (0.358-3.740); TOTAL PROTEIN 5.3 GM/DL (6.4-8.2)
[2021-01-21 22:01] VITALS: BP 154/85
== END 2021-01-21 22:22 | disposition home or self-care (01) ==
LOC: M ED 17:38
DX: F33.9 Major depressive disorder, recurrent, unspecified (principal); R45.851 Suicidal ideations; F20.9 Schizophrenia, unspecified; F50.00 Anorexia nervosa, unspecified; I10 Essential (primary) hypertension; M79.7 Fibromyalgia; G43.909 Migraine, unspecified, not intractable, without status migrainosus; M06.9 Rheumatoid arthritis, unspecified; F17.200 Nicotine dependence, unspecified, uncomplicated; Z88.1 Allergy status to other antibiotic agents; Z88.2 Allergy status to sulfonamides; Z88.8 Allergy status to other drugs, medicaments and biological substances

== ENCOUNTER 2021-01-23 18:20 | Emergency (ER) | payer MEDICARE, MEDICAID ==
[~2021-01-23] VITALS: Ht 170.2 cm; Wt 77.3 kg
[~2021-01-23 18:20] MED LIST changes: +SING5CHW23 PO; +TOPA50TA8 PO; +XANA0.5T PO
[2021-01-23 19:41] LABS: URINE PREG TEST NEGATIVE (NEGATIVE)
[2021-01-23 20:01] LABS: BASO # 0.1 10^3/uL (0.0-0.2); BASO % 1.2 % (0.0-1.0); EOS # 0.2 10^3/uL (0.0-0.5); EOS % 2.7 % (0.0-3.0); HEMATOCRIT 39.9 % (36.0-47.0); HEMOGLOBIN 13.1 g/dl (12.0-15.5); LYMPH % 29.4 % (24.0-44.0); MEAN CORPUSCULAR HEMOGLOBIN 30.8 pg (27.0-33.0); MEAN CORPUSCULAR HGB CONC 32.8 g/dl (32.0-36.5); MEAN CORPUSCULAR VOLUME 93.9 fl (80.0-96.0); MONO # 0.5 10^3/uL (0.0-0.8); NEUTROPHILS # 3.9 10^3/uL (1.5-8.5); NEUTROPHILS % 58.2 % (36.0-66.0); PLATELET COUNT, AUTOMATED 242 10^3/uL (150-450); RED BLOOD COUNT 4.25 10^6/uL (4.00-5.40); WHITE BLOOD COUNT 6.6 10^3/uL (4.0-10.0)
[2021-01-23 20:04] LABS: AMPHETAMINES LEVEL URINE NEGATIVE (NEGATIVE); BARBITURATES URINE NEGATIVE (NEGATIVE); BENZODIAZEPINES URINE POSITIVE (NEGATIVE); CANNABINOIDS URINE NEGATIVE (NEGATIVE); COCAINE METABOLITE URINE NEGATIVE (NEGATIVE); METHADONE URINE NEGATIVE (NEGATIVE); OPIATES URINE NEGATIVE (NEGATIVE); PHENCYCLIDINE URINE NEGATIVE (NEGATIVE)
[2021-01-23 20:10] LABS: INR 0.94; PROTHROMBIN TIME 12.8 SECONDS (12.5-14.3)
[2021-01-23 20:11] LABS: PARTIAL THROMBOPLASTIN TIME 26.6 SECONDS (24.2-38.5)
[2021-01-23 20:43] LABS: BLOOD UREA NITROGEN 9 MG/DL (7-18); CALCIUM LEVEL 8.4 MG/DL (8.5-10.1); CARBON DIOXIDE LEVEL 25 MEQ/L (21-32); CHLORIDE LEVEL 113 MEQ/L (98-107); CK-MB VALUE MASS < 1.0 NG/ML (<3.6); CPK CREATINE PHOSPHOKINASE 67 U/L (26-192); CREATININE FOR GFR 0.93 MG/DL (0.55-1.30); ETHYL ALCOHOL (ETHANOL) < 0.003 % (0.000-0.010); FREE T4 0.81 NG/DL (0.76-1.46); GLOMERULAR FILTRATION RATE > 60.0 (>58); GLUCOSE, FASTING 93 MG/DL (70-100); MB/CK RELATIVE INDEX 1.49 (< OR =4); POTASSIUM SERUM 3.1 MEQ/L (3.5-5.1); SODIUM LEVEL 144 MEQ/L (136-145); THYROID STIMULATING HORMONE 0.452 uIU/ML (0.358-3.740); TROPONIN I < 0.02 NG/ML (< 0.10)
[2021-01-23] MEDS ORDERED: NS 1,000 ML IV ONE (20:50)
[2021-01-23] MEDS ORDERED: POTASSIUM CHLORIDE 10 MEQ SR TABLET PO ONE (20:50)
--- NOTE | 2021-01-23 20:57 | REPVR ---
PROCEDURE INFORMATION: Exam: XR Chest Exam date and time: 01/23/2021 8:08 PM Age: 40 years old Clinical indication: Other: Syncope TECHNIQUE: Imaging protocol: XR of the chest Views: 2 views. COMPARISON: CR Chest, 2 view PA, Lat 08/26/2019 8:15 PM FINDINGS: Lungs: Unremarkable. No consolidation. Pleural spaces: There is no evidence of pneumothorax. There is no evidence of pleural effusion. Heart/Mediastinum: The heart is normal in size. Bones/joints: There is mild kyphosis of the thoracic spine with anterior osteophyte formation. IMPRESSION: Clear appearing lungs. Electronically signed by: Carl Acuna On 01/23/2021 20:57:46 PM
[2021-01-24 00:07] VITALS: BP 142/91
--- NOTE | 2021-01-24 03:35 | ECGEPIP ---
[facility] - ED Test Date: 2021-01-23 Pat Name: DESIRAE NAVARRO Department: Room: - Gender: Female Pulmonary Fellow: lorenzo : 1980 Requested By: EDGAR Simms Order Number: [id number] Reading MD: Balwinder Mckeon Measurements Intervals [place] Rate: 63 P: 49 [place]: 176 QRS: 50 QRSD: 84 T: 43 QT: 422 QTc: 431 Interpretive Statements Normal sinus rhythm Nonspecific T wave abnormality Baseline artifact Similar to tracing done 01-02-21 Electronically Signed on 01-24-2021 3:35:09 EST by Balwinder Mckeon
== END 2021-01-24 00:09 | disposition home or self-care (01) ==
LOC: M ED 18:20 → EDBD 18:20 → M ED 01-24 00:09
DX: R55 Syncope and collapse (principal); I10 Essential (primary) hypertension; J44.9 Chronic obstructive pulmonary disease, unspecified; G43.909 Migraine, unspecified, not intractable, without status migrainosus; M79.7 Fibromyalgia; F31.9 Bipolar disorder, unspecified; F50.2 Bulimia nervosa; F79 Unspecified intellectual disabilities; Z59.0 Homelessness; Z98.84 Bariatric surgery status; Z88.1 Allergy status to other antibiotic agents; Z88.2 Allergy status to sulfonamides; Z88.8 Allergy status to other drugs, medicaments and biological substances; Z79.51 Long term (current) use of inhaled steroids; Z79.899 Other long term (current) drug therapy

== ENCOUNTER → 2021-01-28 | Outpatient (REF) | payer MEDICARE, MEDICAID ==
[2021-01-28 17:19] LABS: ALBUMIN 2.8 GM/DL (3.2-5.2); ALT/SGPT 12 U/L (12-78); BILIRUBIN,TOTAL 0.3 MG/DL (0.2-1.0); BLOOD UREA NITROGEN 6 MG/DL (7-18); CALCIUM LEVEL 8.5 MG/DL (8.5-10.1); CARBON DIOXIDE LEVEL 24 MEQ/L (21-32); CHLORIDE LEVEL 114 MEQ/L (98-107); CREATININE FOR GFR 1.04 MG/DL (0.55-1.30); GLOMERULAR FILTRATION RATE > 60.0 (>58); GLUCOSE, FASTING 117 MG/DL (70-100); POTASSIUM SERUM 3.5 MEQ/L (3.5-5.1); SODIUM LEVEL 143 MEQ/L (136-145); TOTAL PROTEIN 5.3 GM/DL (6.4-8.2)
== END ==
LOC: M LAB REF 16:31
PROVIDERS: ATTEND Pediatrics
DX: E87.6 Hypokalemia (principal)

== ENCOUNTER → 2021-02-01 | Outpatient (REF) | payer MEDICARE, MEDICAID | LOC: M LAB REF 16:05 | PROVIDERS: ATTEND Pediatrics | DX: R19.7 Diarrhea, unspecified (principal) ==

== ENCOUNTER 2021-02-03 22:31 | Emergency (ER) | payer MEDICARE, MEDICAID ==
[2021-02-03] MEDS ORDERED: NS 1,000 ML IV SCH (22:37)
--- NOTE | 2021-02-03 23:14 | REPVR ---
PROCEDURE INFORMATION: Exam: CT Head Without Contrast Exam date and time: 02/03/2021 10:45 PM Age: 40 years old Clinical indication: Altered mental status/memory loss TECHNIQUE: Imaging protocol: Computed tomography of the head without contrast. Radiation optimization: All CT scans at this facility use at least one of these dose optimization techniques: automated exposure control; mA and/or kV adjustment per patient size (includes targeted exams where dose is matched to clinical indication); or iterative reconstruction. COMPARISON: CT Head without contrast 05/12/2019 4:46 PM FINDINGS: Brain: Normal. No hemorrhage. Unremarkable white matter. No mass effect. Cerebral ventricles: No ventriculomegaly. Bones/joints: Unremarkable. No acute fracture. Paranasal sinuses: Visualized sinuses are unremarkable. No fluid levels. Mastoid air cells: Visualized mastoid air cells are well aerated. Soft tissues: Unremarkable. IMPRESSION: No acute intracranial abnormality. Electronically signed by: Manny Adams On 02/03/2021 23:14:19 PM
[2021-02-03 23:34] LABS: BASO # 0.1 10^3/uL (0.0-0.2); BASO % 0.4 % (0.0-1.0); EOS # 0.1 10^3/uL (0.0-0.5); EOS % 0.3 % (0.0-3.0); HEMOGLOBIN 12.6 g/dl (12.0-15.5); LYMPH # 2.4 10^3/uL (1.5-5.0); LYMPH % 10.7 % (24.0-44.0); MEAN CORPUSCULAR HEMOGLOBIN 30.7 pg (27.0-33.0); MEAN CORPUSCULAR HGB CONC 33.2 g/dl (32.0-36.5); MEAN CORPUSCULAR VOLUME 92.7 fl (80.0-96.0); MONO # 1.3 10^3/uL (0.0-0.8); MONO % 5.9 % (2.0-8.0); NEUTROPHILS # 18.2 10^3/uL (1.5-8.5); PLATELET COUNT, AUTOMATED 281 10^3/uL (150-450); WHITE BLOOD COUNT 22.1 10^3/uL (4.0-10.0)
--- NOTE | 2021-02-04 00:14 | REPVR ---
PROCEDURE INFORMATION: Exam: XR Chest Exam date and time: 02/03/2021 10:58 PM Age: 40 years old Clinical indication: Other: AMS; Additional info: Altered mental status TECHNIQUE: Imaging protocol: XR of the chest Views: 1 view. COMPARISON: CR Chest, 2 view PA, Lat 01/23/2021 8:04 PM FINDINGS: Lungs: Unremarkable. No consolidation. Pleural spaces: Unremarkable. No pleural effusion. No pneumothorax. Heart/Mediastinum: Unremarkable. No cardiomegaly. Bones/joints: Unremarkable. IMPRESSION: No acute findings. Electronically signed by: Manny Adams On 02/04/2021 00:14:31 AM
[2021-02-04 00:17] LABS: ACETAMINOPHEN LEVEL 28.8 UG/ML (10.0-30.0); ALBUMIN 2.7 GM/DL (3.2-5.2); ALT/SGPT 14 U/L (12-78); BILIRUBIN,DIRECT 0.1 MG/DL (0.0-0.2); BILIRUBIN,TOTAL 0.3 MG/DL (0.2-1.0); BLOOD UREA NITROGEN 8 MG/DL (7-18); CARBON DIOXIDE LEVEL 24 MEQ/L (21-32); CHLORIDE LEVEL 110 MEQ/L (98-107); CK-MB VALUE MASS 1.1 NG/ML (<3.6); CPK CREATINE PHOSPHOKINASE 64 U/L (26-192); CREATININE FOR GFR 1.04 MG/DL (0.55-1.30); ETHYL ALCOHOL (ETHANOL) < 0.003 % (0.000-0.010); GLOMERULAR FILTRATION RATE > 60.0 (>58); GLUCOSE, FASTING 116 MG/DL (70-100); MB/CK RELATIVE INDEX 1.72 (< OR =4); POTASSIUM SERUM 2.9 MEQ/L (3.5-5.1); SALICYLATE LEVEL 4.6 MG/DL (5.0-30.0); SODIUM LEVEL 141 MEQ/L (136-145); THYROID STIMULATING HORMONE 0.282 uIU/ML (0.358-3.740); TOTAL PROTEIN 5.2 GM/DL (6.4-8.2); TROPONIN I < 0.02 NG/ML (< 0.10)
[2021-02-04] MEDS ORDERED: KCL 10MEQ/100ML SWI (KRUN) 10 MEQ in IV 1 EA IV ONE ×4 (04:15)
[2021-02-04] MEDS ORDERED: POTASSIUM CHLORIDE 10 MEQ SR TABLET PO ONE ×2 (04:15)
[2021-02-04] MEDS ORDERED: KCL 10MEQ/100ML SWI (KRUN) 10 MEQ in IV 1 EA IV SCH (04:24)
[2021-02-04 05:16] LABS: AMPHETAMINES LEVEL URINE NEGATIVE (NEGATIVE); BARBITURATES URINE NEGATIVE (NEGATIVE); BENZODIAZEPINES URINE NEGATIVE (NEGATIVE); CANNABINOIDS URINE NEGATIVE (NEGATIVE); COCAINE METABOLITE URINE NEGATIVE (NEGATIVE); METHADONE URINE NEGATIVE (NEGATIVE); OPIATES URINE NEGATIVE (NEGATIVE); PHENCYCLIDINE URINE NEGATIVE (NEGATIVE)
[2021-02-04 06:00] VITALS: BP 107/63
--- NOTE | 2021-02-04 17:35 | ECGEPIP ---
[facility] - ED Test Date: 2021-02-03 Pat Name: DESIRAE NAVARRO Department: Room: - Gender: Female Clinical Appeals Reviewer: CONNOR : 1980 Requested By: ROULA GARCIA Order Number: [id number] Reading MD: Ayse Herrera Measurements Intervals [place] Rate: 63 P: 29 [place]: 170 QRS: 43 QRSD: 96 T: 155 QT: 414 QTc: 423 Interpretive Statements Normal sinus rhythm Nonspecific T wave abnormality similar 01/23/21 Electronically Signed on 02-04-2021 17:34:56 EDT by Ayse Herrera
== END 2021-02-04 06:34 | disposition home or self-care (01) ==
LOC: M ED 22:31
DX: R41.82 Altered mental status, unspecified (principal); F17.200 Nicotine dependence, unspecified, uncomplicated; Z88.1 Allergy status to other antibiotic agents; Z88.2 Allergy status to sulfonamides; Z91.040 Latex allergy status; Z88.8 Allergy status to other drugs, medicaments and biological substances; Z79.51 Long term (current) use of inhaled steroids; Z79.899 Other long term (current) drug therapy

== ENCOUNTER 2021-02-05 22:40 | Emergency (ER) | payer MEDICARE, MEDICAID ==
[~2021-02-05] VITALS: Ht 170.2 cm; Wt 81.8 kg
[2021-02-06 01:15] VITALS: BP 129/92
== END 2021-02-06 01:44 | disposition left against medical advice (07) ==
LOC: M ED 22:40
DX: F44.5 Conversion disorder with seizures or convulsions (principal); F17.200 Nicotine dependence, unspecified, uncomplicated; Z88.1 Allergy status to other antibiotic agents; Z88.2 Allergy status to sulfonamides; Z88.8 Allergy status to other drugs, medicaments and biological substances; Z79.899 Other long term (current) drug therapy

== ENCOUNTER 2021-02-06 09:28 | Outpatient (RCR) | payer MEDICARE, MEDICAID ==
[2021-02-13] MEDS ORDERED: POTA10CA32 PO (16:35)
[2021-02-13] MEDS ORDERED: METR-265 (16:35)
[2021-02-13] MEDS ORDERED: VANC125C3 PO (17:35)
== END 2021-02-13 ==
LOC: M PT 09:28
PROVIDERS: ATTEND Pediatrics
DX: R26.9 Unspecified abnormalities of gait and mobility (principal)

== ENCOUNTER → 2021-02-06 | Outpatient (CLI) | payer MEDICARE, MEDICAID ==
[2021-02-06 17:14] LABS: ALT/SGPT 18 U/L (12-78); BILIRUBIN,DIRECT 0.1 MG/DL (0.0-0.2); BILIRUBIN,TOTAL 0.2 MG/DL (0.2-1.0); BLOOD UREA NITROGEN 6 MG/DL (7-18); CALCIUM LEVEL 8.6 MG/DL (8.5-10.1); CARBON DIOXIDE LEVEL 23 MEQ/L (21-32); CHLORIDE LEVEL 111 MEQ/L (98-107); CREATININE FOR GFR 0.83 MG/DL (0.55-1.30); GLOMERULAR FILTRATION RATE > 60.0 (>58); GLUCOSE, FASTING 93 MG/DL (70-100); HEPATITIS B SURFACE ANTIGEN NEGATIVE (NEGATIVE); HEPATITIS C VIRUS ABY INDEX < 0.0 INDEX (<0.8); HIV 1&2 SCREEN CENTAUR NEGATIVE (NEGATIVE); MAGNESIUM LEVEL 1.9 MG/DL (1.8-2.4); POTASSIUM SERUM 2.7 MEQ/L (3.5-5.1); PTH INTACT 68.9 PG/ML (18.5-88.0); SODIUM LEVEL 143 MEQ/L (136-145); TOTAL PROTEIN 6.1 GM/DL (6.4-8.2)
== END ==
LOC: M LAB 13:29
PROVIDERS: ATTEND Pediatrics
DX: Z11.3 Encounter for screening for infections with a predominantly sexual mode of transmission (principal); E87.6 Hypokalemia; R19.7 Diarrhea, unspecified; R74.8 Abnormal levels of other serum enzymes

== ENCOUNTER 2021-02-13 15:31 | Emergency (ER) | payer MEDICARE, MEDICAID ==
[~2021-02-13] VITALS: Ht 170.2 cm; Wt 81.8 kg
[2021-02-13] MEDS ORDERED: VANCOMYCIN ORAL SOL 250MG/5ML ORAL SYRINGE PO ONE (16:10)
[2021-02-13] MEDS ORDERED: NS 500 ML IV ONE (16:25)
[2021-02-13 16:28] LABS: BASO # 0.1 10^3/uL (0.0-0.2); BASO % 0.5 % (0.0-1.0); EOS # 0.1 10^3/uL (0.0-0.5); EOS % 0.3 % (0.0-3.0); HEMOGLOBIN 15.2 g/dl (12.0-15.5); LYMPH % 19.4 % (24.0-44.0); MEAN CORPUSCULAR HEMOGLOBIN 30.7 pg (27.0-33.0); MEAN CORPUSCULAR HGB CONC 32.3 g/dl (32.0-36.5); MEAN CORPUSCULAR VOLUME 94.9 fl (80.0-96.0); MONO # 0.8 10^3/uL (0.0-0.8); MONO % 5.1 % (2.0-8.0); NEUTROPHILS # 11.5 10^3/uL (1.5-8.5); NEUTROPHILS % 73.7 % (36.0-66.0); PLATELET COUNT, AUTOMATED 393 10^3/uL (150-450); RED BLOOD COUNT 4.95 10^6/uL (4.00-5.40); WHITE BLOOD COUNT 15.6 10^3/uL (4.0-10.0)
[2021-02-13] MEDS ORDERED: METR-265 (16:35)
[2021-02-13] MEDS ORDERED: POTA10CA32 PO (16:35)
[2021-02-13 16:59] LABS: CALCIUM LEVEL 8.8 MG/DL (8.5-10.1); CREATININE FOR GFR 1.09 MG/DL (0.55-1.30); GLOMERULAR FILTRATION RATE 58.6 (>58); POTASSIUM SERUM 3.7 MEQ/L (3.5-5.1)
[2021-02-13] MEDS ORDERED: METOPROLOL TART 50 MG TAB PO ONE (17:00)
[2021-02-13] MEDS ORDERED: VANC125C3 PO (17:35)
[2021-02-13 20:12] VITALS: BP 138/88
== END 2021-02-13 20:14 | disposition home or self-care (01) ==
LOC: EDBD 15:31 → M ED 15:31
DX: A04.72 Enterocolitis due to Clostridium difficile, not specified as recurrent (principal); R11.0 Nausea; Z98.84 Bariatric surgery status; Z88.1 Allergy status to other antibiotic agents; Z88.2 Allergy status to sulfonamides; Z88.8 Allergy status to other drugs, medicaments and biological substances; Z91.040 Latex allergy status; Z79.899 Other long term (current) drug therapy

== ENCOUNTER 2021-02-15 01:20 | Inpatient (IN) | payer MEDICARE, MEDICAID ==
[~2021-02-15] VITALS: Ht 170.2 cm; Wt 81.8 kg
[~2021-02-15 01:20] MED LIST changes: +METR-265; +POTA10CA32 PO; +VANC125C3 PO
[2021-02-15] MEDS ORDERED: VANCOMYCIN ORAL SOL 250MG/5ML ORAL SYRINGE PO ONE (02:35)
[2021-02-15] MEDS ORDERED: ACETAMINOPHEN TAB 650MG DOSE (2X325MG) PO ONE (02:35)
[2021-02-15 04:02] LABS: MEAN CORPUSCULAR HEMOGLOBIN 30.7 pg (27.0-33.0); MEAN CORPUSCULAR HGB CONC 32.3 g/dl (32.0-36.5); MEAN CORPUSCULAR VOLUME 95.2 fl (80.0-96.0); PLATELET COUNT, AUTOMATED 305 10^3/uL (150-450); WHITE BLOOD COUNT 9.9 10^3/uL (4.0-10.0)
[2021-02-15 04:03] LABS: HEMOGLOBIN 12.9 g/dl (12.0-15.5)
[2021-02-15 04:42] LABS: ALBUMIN 2.5 GM/DL (3.2-5.2); ALT/SGPT 26 U/L (12-78); BILIRUBIN,DIRECT 0.1 MG/DL (0.0-0.2); BILIRUBIN,TOTAL 0.4 MG/DL (0.2-1.0); BLOOD UREA NITROGEN 3 MG/DL (7-18); CALCIUM LEVEL 7.6 MG/DL (8.5-10.1); CARBON DIOXIDE LEVEL 27 MEQ/L (21-32); CHLORIDE LEVEL 110 MEQ/L (98-107); CREATININE FOR GFR 0.87 MG/DL (0.55-1.30); ETHYL ALCOHOL (ETHANOL) < 0.003 % (0.000-0.010); GLOMERULAR FILTRATION RATE > 60.0 (>58); GLUCOSE, FASTING 93 MG/DL (70-100); POTASSIUM SERUM 3.1 MEQ/L (3.5-5.1); SALICYLATE LEVEL 3.9 MG/DL (5.0-30.0); SODIUM LEVEL 143 MEQ/L (136-145); THYROID STIMULATING HORMONE 0.516 uIU/ML (0.358-3.740); TOTAL PROTEIN 4.8 GM/DL (6.4-8.2)
[2021-02-15 05:57] LABS: AMPHETAMINES LEVEL URINE NEGATIVE (NEGATIVE); BARBITURATES URINE NEGATIVE (NEGATIVE); BENZODIAZEPINES URINE POSITIVE (NEGATIVE); CANNABINOIDS URINE NEGATIVE (NEGATIVE); COCAINE METABOLITE URINE NEGATIVE (NEGATIVE); METHADONE URINE NEGATIVE (NEGATIVE); OPIATES URINE NEGATIVE (NEGATIVE); PHENCYCLIDINE URINE NEGATIVE (NEGATIVE)
[2021-02-15] MEDS ORDERED: TREL1AER PO (09:33)
[2021-02-15] MEDS ORDERED: MAGN400T2 PO (09:33)
[2021-02-15] MEDS ORDERED: ZOLP10TA2 PO (09:33)
[2021-02-15 10:46] LABS: RSV AMPLIFICATION NEGATIVE (NEGATIVE)
[2021-02-15] MEDS ORDERED: VANC125C3 PO (10:59)
[2021-02-15] MEDS ORDERED: MONT10TA10 PO (10:59)
[2021-02-15] MEDS ORDERED: IBUPROFEN 800 MG TAB PO ONE (11:00)
[2021-02-15] MEDS ORDERED: ACETAMINOPHEN 325 MG TAB PO ONE (11:00)
[2021-02-15] MEDS ORDERED: ALPRAZolam 0.5 MG TAB PO ONE (12:35)
[2021-02-15] MEDS ORDERED: TOPIRAMATE (TopAMAX) 25 MG TAB PO ONE (12:35)
[2021-02-15] MEDS ORDERED: MAALOX 30 ML SUSP *UDC PO PRN (13:45)
[2021-02-15] MEDS ORDERED: ALBUTEROL 90 MCG/ACT 8GM HFA INHALER INH PRN (13:45)
[2021-02-15] MEDS ORDERED: MOM 30ML SUSPENSION UDC PO PRN (13:45)
[2021-02-15] MEDS ORDERED: ACETAMINOPHEN TAB 650MG DOSE (2X325MG) PO PRN ×2 (13:45)
[2021-02-15] MEDS: MAGNESIUM OXIDE 400MG TAB (MAG-OX) PO SCH (16:36)
[2021-02-15] MEDS: GABAPENTIN 400MG CAP PO SCH ×2 (16:36→22:25)
[2021-02-15] MEDS: FOLIC ACID 1 MG TAB PO SCH (16:37)
[2021-02-15] MEDS: MULTIVITAMINS/MINERALS THERAP 1 TAB PO SCH (16:37)
[2021-02-15 16:38] VITALS: BP 132/88
[2021-02-15] MEDS: OLANZapine 5 MG TAB PO SCH (17:26)
[2021-02-15] MEDS: METOPROLOL TART 50 MG TAB PO SCH (17:26)
[2021-02-15] MEDS: MONTELUKAST 10 MG TAB PO SCH (17:26)
[2021-02-15] MEDS: DULoxetine 30 MG CAP (CYMBALTA) PO SCH (17:26)
[2021-02-15] MEDS: POTASSIUM CHLORIDE 10 MEQ SR TABLET PO SCH (22:25)
[2021-02-15] MEDS: HYDROXYCHLOROQUINE 200 MG TAB PO SCH (22:26)
[2021-02-15] MEDS: TOPIRAMATE (TopAMAX) 25 MG TAB PO SCH (22:26)
[2021-02-15] MEDS: traZODone 100 MG TAB PO SCH (22:26)
[2021-02-16] MEDS: LEVOTHYROXINE 25MCG TABLET (0.025MG) PO SCH (06:19)
[2021-02-16 06:23] VITALS: BP 119/67
[2021-02-16] MEDS: GABAPENTIN 400MG CAP PO SCH ×3 (09:33→21:32)
[2021-02-16] MEDS: FOLIC ACID 1 MG TAB PO SCH (09:33)
[2021-02-16] MEDS: POTASSIUM CHLORIDE 10 MEQ SR TABLET PO SCH ×2 (09:33→21:32)
[2021-02-16] MEDS: MULTIVITAMINS/MINERALS THERAP 1 TAB PO SCH (09:34)
[2021-02-16] MEDS: HYDROXYCHLOROQUINE 200 MG TAB PO SCH ×2 (09:34→21:33)
[2021-02-16] MEDS: MAGNESIUM OXIDE 400MG TAB (MAG-OX) PO SCH (09:34)
[2021-02-16] MEDS: TOPIRAMATE (TopAMAX) 25 MG TAB PO SCH ×2 (09:34→21:33)
[2021-02-16] MEDS: VANCOMYCIN ORAL SOL 250MG/5ML ORAL SYRINGE PO SCH ×2 (11:49→17:08)
[2021-02-16] MEDS: SUMAtriptan SUCCINATE 25 MG TAB PO PRN (15:59)
[2021-02-16] MEDS ORDERED: SALIVA SUBSTITUTE(MOUTHKOTE) BTL MT PRN (16:10)
[2021-02-16 16:29] VITALS: BP 132/80
[2021-02-16] MEDS: MONTELUKAST 10 MG TAB PO SCH (17:08)
[2021-02-16] MEDS: DULoxetine 30 MG CAP (CYMBALTA) PO SCH (17:08)
[2021-02-16] MEDS: OLANZapine 5 MG TAB PO SCH (17:08)
[2021-02-16] MEDS: METOPROLOL TART 50 MG TAB PO SCH (17:10)
--- NOTE | 2021-02-16 17:16 | HPEPDOC ---
General Date of Admission Feb 15, 2021 at 13:45 Date of Service: Feb 16, 2021 Chief Complaint The patient is a 40-year-old female admitted with a reason for visit of Unspecified Depressive Disorder. Source: Patient Exam Limitations: Mild cognitive slowing History of Present Illness Patient is 40 years old female with past medical history of actual disability, anxiety, depression, bipolar disorder presented to the hospital with suicidal ideation. Patient stated that she has been having suicidal ideation in the past. She did not provide me with details of history of suicidal ideation, she told me she has a poor memory. Patient stated that she has been recently diagnosed with C. difficile and she had loose stool in the evening yesterday. The last positive test for C. difficile was 02/13/21. Primary care physician prescribed vancomycin by mouth, but patient does not remember if she takes all prescribed medications. Patient denied fever, chills, chest pain, palpitations, dysuria Home Medications Scheduled Duloxetine Hcl (Cymbalta) 60 Mg Capsule.dr, 120 MG PO QPM, (Reported) Fluticasone/Umeclidin/Vilanter (Trelegy Ellipta 100-62.5-25) 1 Each Blst.w.dev, 1 PUFF PO DAILY, (Reported) Folic Acid (Folic Acid) 1 Mg Tablet, 1 MG PO DAILY, (Reported) Gabapentin (Gabapentin) 400 Mg Capsule, 400 MG PO TID, (Reported) Hydroxychloroquine Sulfate (Hydroxychloroquine Sulfate) 200 Mg Tablet, 200 MG PO BID, (Reported) Levothyroxine Sodium (Levothyroxine Sodium) 25 Mcg Tablet, 25 MCG PO DAILY, (Reported) Magnesium Oxide (Magnesium Oxide) 400 Mg Tablet, 400 MG PO DAILY, (Reported) Methotrexate Sodium (Methotrexate) 2.5 Mg Tablet, 7.5 MG PO QWEEK, (Reported) MONDAYS Metoprolol Tartrate (Metoprolol Tartrate) 50 Mg Tablet, 50 MG PO QPM, (Reported) Montelukast Sodium (Montelukast Sodium) 10 Mg Tablet, 10 MG PO QPM, (Reported) Multivitamins (Thera M Plus Tablet) 1 Each Tablet, 1 TAB PO DAILY, (Reported) Olanzapine (Zyprexa) 5 Mg Tablet, 5 MG PO QPM, (Reported) Potassium Chloride (Potassium Chloride) 10 Meq Capsule.er, 10 MEQ PO BID, (Reported) Topiramate (Topamax) 50 Mg Tablet, 50 MG PO BID, (Reported) Trazodone HCl (Trazodone HCl) 100 Mg Tablet, 100 MG PO QHS, (Reported) Vancomycin Hcl (Vancomycin HCl) 125 Mg Capsule, 125 MG PO QID, (Reported) Scheduled PRN Acetaminophen (Acetaminophen) 325 Mg Tablet, 650 MG PO Q4H PRN for PAIN, (R eported) Albuterol Sulfate (Ventolin Hfa) 18 Gm Hfa.aer.ad, 2 PUFF INH Q4H PRN for SHORTNESS OF BREATH, (Reported) Alprazolam (Xanax) 0.5 Mg Tablet, 0.5 MG PO BID PRN for ANXIETY/AGITATION, (R eported) Pilocarpine HCl (Salagen) 5 Mg Tablet, 5 MG PO TID PRN for XEROSTOMIA, (Reported) Sumatriptan Succinate (Sumatriptan Succinate) 25 Mg Tablet, 25 MG PO Q12H PRN for MIGRAINE, (Reported) Zolpidem Tartrate (Zolpidem Tartrate) 10 Mg Tablet, 10 MG PO QHS PRN for SLEEP, (Reported) Allergies Coded Allergies: Sulfa (Sulfonamide Antibiotics) (Verified Allergy, Intermediate, RASH AND HIVES, 02/15/21) buspirone (Verified Allergy, Intermediate, hives, 02/15/21) cephalexin (Verified Allergy, Intermediate, hives, 02/15/21) erythromycin base (Verified Allergy, Intermediate, hives/rash, 02/15/21) latex (Verified Allergy, Intermediate, hives, 02/15/21) levofloxacin (Verified Allergy, Intermediate, hives/rash, 02/15/21) lisinopril (Verified Allergy, Intermediate, hives/rash, 02/15/21) sulfamethoxazole (Verified Allergy, Intermediate, hives/rash, 02/15/21) eszopiclone (Verified Allergy, Mild, rash, 02/15/21) metoclopramide (Verified Allergy, Unknown, 02/15/21) omeprazole (Verified Allergy, Unknown, 02/15/21) bupropion (Verified Adverse Reaction, Mild, nausea, 02/15/21) trimethoprim (Verified Adverse Reaction, Mild, nausea/vomitting, 4/2/21) Past Medical History Medical History From chart review as well as from patient: Homelessness Intellectual disability Anxiety and depression History of suicidal ideation Bipolar disorder Bulimia disorder Fibromyalgia Migraine headaches Sjogren syndrome SLE Rheumatoid arthritis Hypertension Allergic rhinitis GERD Fatty liver from CT January 2017 Surgical History Tonsillectomy Hysterectomy Gastric bypass surgery Family History Mother lung cancer 2 brothers alive Father alive she doesn't know much of his healthy lives in [place] Social History * Smoker: current smoker Alcohol: Denies Drugs: marijuana A-FIB/CHADSVASC A-FIB History Current/History of A-Fib/PAF?: No Current PO Anticoag Therapy: No Review of Systems Constitutional: Denies: Chills ENT: Denies: Head Aches Skin: Denies: Rash Pulmonary: Denies: Dyspnea, Cough Cardiovascular: Denies: Chest Pain Gastrointestinal: Reports: Diarrhea; Denies: Nausea Genitourinary: Denies: Dysuria Hematologic: Denies: Bruising Endocrine: Denies: Polydipsia Musculoskeletal: Denies: Neck Pain Neurological: Denies: Weakness Psych: Denies: Thoughts of Harming Other Physical Examination General Exam: Positive: Cooperative, No Acute Distress Eye Exam: Positive: PERRLA ENT Exam: Positive: Atraumatic Neck Exam: Positive: Supple; Negative: JVD Chest Exam: Positive: Clear to auscultation Heart Exam: Positive: Rate Normal Telemetry: Positive: No significant arrhythmia Abdomen Exam: Positive: Normal bowel sounds Extremity Exam: Negative: Clubbing Skin Exam: Positive: Nl turgor and temperature Neuro Exam: Positive: Strength at 5/5 X4 ext, Cranial Nerves 3-12 NL Psych Exam: Negative: Memory Intact (mild cognitive slowing) Vital Signs Vital Signs Date Time Temp Pulse Resp B/P (MAP) Pulse Ox O2 Delivery O2 Flow Rate FiO2 02/16/21 06:23 98.2 61 18 119/67 (84) 97 Room Air Assessment/Plan Patient is 40 years old female with past medical history of actual disability, anxiety, depression, bipolar disorder presented to the hospital with suicidal ideation. Patient stated that she has been having suicidal ideation in the past. She did not provide me with details of history of suicidal ideation, she told me she has a poor memory. Patient stated that she has been recently diagnosed with C. difficile and she had loose stool in the evening yesterday. The last positive test for C. difficile was 02/13/21. Primary care physician prescribed vancomycin by mouth, but patient does not remember if she takes all prescribed medications. Patient denied fever, chills, chest pain, palpitations, dysuria Problems (1) Sjogrens syndrome Status: Chronic Problem Text: saliva substitution when necessary (2) Asthma Status: Chronic Problem Text: Continue inhalers Not in acute exacerbation (3) Suicidal ideation Status: Acute Problem Text: Deferred treatment to psych team (4) Clostridioides difficile diarrhea Status: Acute Problem Text: most likely patient was noncompliant to medications She had a loose stool yesterday evening. Vancomycin 125 mg by mouth 4 times a day (5) Hypothyroidism Status: Chronic Problem Text: Continue levothyroxine (6) Lupus Status: Chronic Problem Text: Not in acute exacerbation Continue home meds (7) Rheumatoid arthritis Status: Chronic Problem Text: Continue home meds Plan / VTE VTE Prophylaxis Ordered?: No VTE Exclusion Mechanical Proph: Low Risk for VTE YANNI FLORES DO Feb 16, 2021 17:16
[2021-02-16] MEDS: ADVAIR HFA 230/21MCG INHALER INH SCH (21:32)
[2021-02-16] MEDS: traZODone 100 MG TAB PO SCH (21:32)
[2021-02-17] MEDS: VANCOMYCIN ORAL SOL 250MG/5ML ORAL SYRINGE PO SCH ×4 (00:05→17:38)
[2021-02-17] MEDS: LEVOTHYROXINE 25MCG TABLET (0.025MG) PO SCH (06:24)
[2021-02-17 06:32] VITALS: BP 134/85
[2021-02-17] MEDS: FOLIC ACID 1 MG TAB PO SCH (08:05)
[2021-02-17] MEDS: ADVAIR HFA 230/21MCG INHALER INH SCH ×2 (08:05→22:32)
[2021-02-17] MEDS: MULTIVITAMINS/MINERALS THERAP 1 TAB PO SCH (08:06)
[2021-02-17] MEDS: HYDROXYCHLOROQUINE 200 MG TAB PO SCH ×2 (08:06→22:37)
[2021-02-17] MEDS: POTASSIUM CHLORIDE 10 MEQ SR TABLET PO SCH ×2 (08:06→22:32)
[2021-02-17] MEDS: MAGNESIUM OXIDE 400MG TAB (MAG-OX) PO SCH (08:06)
[2021-02-17] MEDS: GABAPENTIN 400MG CAP PO SCH ×3 (08:06→22:33)
[2021-02-17] MEDS: TOPIRAMATE (TopAMAX) 25 MG TAB PO SCH ×2 (08:06→22:32)
[2021-02-17 16:20] VITALS: BP 116/62
--- NOTE | 2021-02-17 16:23 | MHHPE ---
[facility] HISTORY AND PHYSICAL DATE OF ADMISSION: 02/15/2021 This is a video assessment. This is being done because of the pandemic. I am also not able to see her [id number] as I am not well enough to go to the hospital to see her. CHIEF COMPLAINT: Says feels okay. SUBJECTIVE: She is 40 years old. She apparently lives at a local motel. Says has been okay though later suggests has had difficulties. Has had at least one hospitalization here in the inpatient unit a few years ago, diagnosed with bipolar disorder, possible bulimia nervosa. There is a question of ruling out borderline intellectual functioning of which had been commented upon on other evaluations. She was also seen in October last year, about four months ago, by Dr. Malhotra, psychiatry. Please refer to that consultation note for details. She was thought to be depressed, anxious, was homeless at the time, living in an assisted living facility at the time and the recommendation was that she was discharged. She was not thought to meet criteria for inpatient psychiatry at that time. She is currently on metoprolol 50 mg in the evening, levothyroxine 25 mcg, methotrexate 7.5 mg weekly, though it is not quite clear whether she has been taking these mediations, per the emergency room (ER) record. Others include sumatriptan as needed, olanzapine 5 mg in the evening, duloxetine 120 mg in the evening, gabapentin 400 mg three times a day, Topamax 50 mg twice a day, hydroxychloroquine 200 mg twice a day, Xanax 0.5 mg twice a day as needed, magnesium oxide 400 mg daily. She had come to the emergency room by ambulance. She thought she was having a seizure. She also told staff over at the ER that she was suicidal. She was not happy with her living situation. She has apparently been in the emergency room on several occasions since November of this year, discharged on every occasion. Says thought that she was having a possible pseudoseizure, though it is not clear. She is also at a local motel, was apparently asked to leave there because she was caught snacking in her room. She was placed by Department of [employer] (D[employer]) at another motel, but found it difficult being there apparently and there are concerns that she is not able to get her medicines, various thoughts. Has also expressed suicidal thoughts and felt increasingly hopeless. Was noted to be somewhat aggressive in the ER. Had been admitted to psychiatry in May 2018, was supposed to go to outpatient care at [facility]. MEDICAL HISTORY: 1. Fibromyalgia. 2. Migraine headaches. According to the chart: 3. Arthritis. 4. Sjogren's syndrome. 5. Systemic lupus erythematosus. Though it is not clear if these are clearly documented. SURGICAL HISTORY: 1. Tonsillectomy. 2. Hysterectomy. 3. Gastric bypass surgery. SOCIAL HISTORY: I am not aware of details, but she suggests that she is essentially homeless. MENTAL STATUS EXAMINATION: She is lying in bed, superficially cooperative, answers questions briefly. No agitation. No psychomotor retardation. Affect fair range. Denies any suicidal thoughts or intents. No homicidal ideas or intents. I cannot detect any evidence of psychosis on this brief exam. She is alert, oriented to time, place and person. Intellect appears to be average at best, most likely below average. Judgment and insight are compromised. ASSESSMENT: 1. Bipolar disorder by history. 2. 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 3. Homelessness. PLAN: She is admitted to inpatient psychiatry unit, placed on relevant precautions. We will look at obtaining collateral information. We will resume some of the previous medications, they have already been resumed by the on-call psychiatrist, and we will look at discharge planning. The patient, given the above, will require a firmer residence prior to discharge, as I suspect intellectual limitations may make it more difficult for her to negotiate those considerable challenges that she faces and chances of readmission or an adverse outcome increase. To minimize that, would suggest a setting which has some supervision. Further recommendations to be made depending on the clinical picture.
[2021-02-17] MEDS: OLANZapine 5 MG TAB PO SCH (17:38)
[2021-02-17] MEDS: MONTELUKAST 10 MG TAB PO SCH (17:38)
[2021-02-17] MEDS: DULoxetine 30 MG CAP (CYMBALTA) PO SCH (17:38)
[2021-02-17] MEDS: METOPROLOL TART 50 MG TAB PO SCH (17:38)
[2021-02-17] MEDS: traZODone 100 MG TAB PO SCH (22:33)
[2021-02-18] MEDS: VANCOMYCIN ORAL SOL 250MG/5ML ORAL SYRINGE PO SCH ×4 (01:30→17:20)
[2021-02-18 06:00] VITALS: BP 148/71
[2021-02-18] MEDS: LEVOTHYROXINE 25MCG TABLET (0.025MG) PO SCH (06:21)
[2021-02-18] MEDS ORDERED: METHOTREXATE 2.5 MG TAB (J8610 PER 2.5MG) PO SCH (09:00)
[2021-02-18] MEDS: TOPIRAMATE (TopAMAX) 25 MG TAB PO SCH ×2 (09:50→21:54)
[2021-02-18] MEDS: HYDROXYCHLOROQUINE 200 MG TAB PO SCH ×2 (09:51→21:53)
[2021-02-18] MEDS: POTASSIUM CHLORIDE 10 MEQ SR TABLET PO SCH ×2 (09:52→21:53)
[2021-02-18] MEDS: MULTIVITAMINS/MINERALS THERAP 1 TAB PO SCH (09:52)
[2021-02-18] MEDS: FOLIC ACID 1 MG TAB PO SCH (09:52)
[2021-02-18] MEDS: GABAPENTIN 400MG CAP PO SCH ×3 (09:52→21:53)
[2021-02-18] MEDS: ADVAIR HFA 230/21MCG INHALER INH SCH ×2 (09:53→21:54)
[2021-02-18] MEDS: MAGNESIUM OXIDE 400MG TAB (MAG-OX) PO SCH (09:53)
[2021-02-18] MEDS: DULoxetine 30 MG CAP (CYMBALTA) PO SCH (17:18)
[2021-02-18] MEDS: MONTELUKAST 10 MG TAB PO SCH (17:19)
[2021-02-18] MEDS: OLANZapine 5 MG TAB PO SCH (17:19)
[2021-02-18] MEDS: METOPROLOL TART 50 MG TAB PO SCH (17:21)
--- NOTE | 2021-02-18 17:21 | MHIPNPDOC ---
[facility] Progress Note Progress Note DATE OF SERVICE: 02/18/21 HISTORY: Patient is a 40 year old Single, Intellectually Disabled, Domiciled, Female who had come the emergency room by ambulance. She reported that she was having a seizure. She also told staff over at the ER that she was suicidal, was not happy with her living situation, and felt increasingly hopeless. She has apparently been in the emergency room on several occasions since November of this year, discharged on every occasion. Says thought that she was having a possible pseudoseizure, though it is not clear. She is also at a local motel, was apparently asked to leave there because she was caught snacking in her room. She was placed by Department of [employer] (D[employer]) at another motel, but found it difficult being there apparently due to geographical bar riers and there are concerns that she is not able to get her medicines, toiletries and has C-Diff. VITAL SIGNS: See below. CURRENT MEDICATIONS: See below. MENTAL STATUS EXAMINATION: Patient is a 40 year old Single, Intellectually Disabled, Domiciled, Female who had reported that she was having a seizure. She also told staff over at the ER that she was suicidal, was not happy with her living situation, and felt increasingly hopeless Speech: Is spontaneous, normal rate, tone and volume Language skills are intact Thought processes including: linear and goal oriented Thought content: reports depression and anxiety. Denies suicidal/homicidal ideation, planning or intent. Abstract reasoning, and computation: fair Description of associations: denies, none observed Description of abnormal or psychotic thoughts: denies, none observed. Judgment: fair Insight: fair Orientation: alert and oriented to person, place, time and situation Recent and remote memory: intact Attention span and concentration: fair Language: expansive Fund of knowledge: below average Mood: Irritable/ mildly hostile Mood Affect: reactive DIAGNOSES: 1. Bipolar disorder by history. 2. 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 3. Possible Housing Issue/Homelessness. ASSESSMENT: Patient demands that she be discharged today. Reporting that she does not want to stay. She reports that she had originally needed to be seen in the ED because of seizures that had recently started on this hospitalization, she reports no other history of seizures. When asked about self-harm ideas she states "I don't know!" She refused to engaged in the interview, was observed to be quite irritable and hostile towards provider. States that she wants to be discharge. At this time, it is unclear that patient has a safe discharge or whether she has housing. Patient is intellectually disabled and much of the day to day functioning of living independently must be investigated in order to determine whether patient has a safe discharge plan. MANAGEMENT PLAN: continue all medications, discharge when stable. TIME SPENT: 25 minutes. Vital Signs Vital Signs Date Time Temp Pulse Resp B/P (MAP) Pulse Ox O2 Delivery O2 Flow Rate FiO2 02/18/21 06:00 97.6 76 20 148/71 (96) 97 02/17/21 06:32 Room Air Current Medications Current Medications Medications (Trade) Dose Ordered Sig/Ninfa Route PRN Reason Start Time Stop Time Status Last Admin Dose Admin Acetaminophen (Tylenol Tab) 650 mg Q4H PRN PO PAIN 02/15/21 13:45 02/15/21 22:50 Acetaminophen (Tylenol Tab) 650 mg Q6HP PRN PO HEADACHE or DISCOMFORT 02/15/21 13:45 UNV Al Hydrox/Mg Hydrox/Simethicone (Mylanta) 30 ml Q4HP PRN PO HEARTBURN/INDIGESTION 02/15/21 13:45 Albuterol Sulfate (Proventil, Ventolin Hfa) 2 puff Q4H PRN INH SHORTNESS OF BREATH 02/15/21 13:45 Duloxetine HCl (Cymbalta) 120 mg QPM@1800 PO 02/15/21 18:00 02/17/21 17:38 Folic Acid (Folic Acid) 1 mg DAILY PO 02/15/21 09:00 02/18/21 09:52 Gabapentin (Neurontin) 400 mg TID PO 02/15/21 16:00 02/18/21 16:44 Home Med (Med Rec Complete!) ASDIRECTED XX 02/15/21 11:00 02/15/21 11:02 DC Hydroxychloroquine Sulfate (Plaquenil) 200 mg BID PO 02/15/21 21:00 02/18/21 09:51 Levothyroxine Sodium (Synthroid) 25 mcg DAILY@0600 PO 02/16/21 06:00 02/18/21 06:21 Magnesium Hydroxide (Milk Of Magnesia) 30 ml DAILYPRN PRN PO CONSTIPATION 02/15/21 13:45 Magnesium Oxide (Mag-Ox) 400 mg DAILY PO 02/15/21 09:00 02/18/21 09:53 Methotrexate (Folex) 7.5 mg Mo@0900 PO 02/18/21 09:00 02/18/21 09:51 Metoprolol Tartrate (Lopressor) 50 mg QPM@1800 PO 02/15/21 18:00 02/17/21 17:38 Montelukast Sodium (Singulair) 10 mg QPM@1800 PO 02/15/21 18:00 02/17/21 17:38 Multivitamins (Theragram-M) 1 tab DAILY PO 02/15/21 09:00 02/18/21 09:52 Olanzapine (ZyPREXA) 5 mg QPM@1800 PO 02/15/21 18:00 02/17/21 17:38 Potassium Chloride (Micro-K Extencaps) 10 meq BID PO 02/15/21 21:00 02/18/21 09:52 Saliva Substitute (Mouthkote) 2 sprays ASDIRECTED PRN MT xerostomia 02/16/21 16:10 Salmeterol Xinafoate/ Fluticasone (Advair Hfa ) 2 puff BID INH 02/16/21 21:00 02/18/21 09:53 Sumatriptan Succinate (Imitrex) 25 mg Q12H PRN PO MIGRAINE 02/15/21 13:45 02/16/21 15:59 Topiramate (TopAMAX) 50 mg BID PO 02/15/21 21:00 02/18/21 09:50 Trazodone HCl (Desyrel) 100 mg QHS PO 02/15/21 21:00 02/17/21 22:33 Vancomycin HCl (First-Vancomycin 50(Firvanq)- 250mg/5ml) 125 mg Q6H PO 02/16/21 12:00 02/26/21 12:00 02/18/21 12:18 Allergies Coded Allergies: Sulfa (Sulfonamide Antibiotics) (Verified Allergy, Intermediate, RASH AND HIVES, 02/15/21) buspirone (Verified Allergy, Intermediate, hives, 02/15/21) cephalexin (Verified Allergy, Intermediate, hives, 02/15/21) erythromycin base (Verified Allergy, Intermediate, hives/rash, 02/15/21) latex (Verified Allergy, Intermediate, hives, 02/15/21) levofloxacin (Verified Allergy, Intermediate, hives/rash, 02/15/21) lisinopril (Verified Allergy, Intermediate, hives/rash, 02/15/21) sulfamethoxazole (Verified Allergy, Intermediate, hives/rash, 02/15/21) eszopiclone (Verified Allergy, Mild, rash, 02/15/21) metoclopramide (Verified Allergy, Unknown, 02/15/21) omeprazole (Verified Allergy, Unknown, 02/15/21) bupropion (Verified Adverse Reaction, Mild, nausea, 02/15/21) trimethoprim (Verified Adverse Reaction, Mild, nausea/vomitting, 02/15/21) RAMON MURILLO NP Feb 18, 2021 17:14
[2021-02-18] MEDS: traZODone 100 MG TAB PO SCH (21:54)
[2021-02-19] MEDS: VANCOMYCIN ORAL SOL 250MG/5ML ORAL SYRINGE PO SCH ×5 (01:04→23:35)
[2021-02-19] MEDS: LEVOTHYROXINE 25MCG TABLET (0.025MG) PO SCH (06:25)
[2021-02-19 06:48] VITALS: BP 136/84
--- NOTE | 2021-02-19 09:03 | MHIPN ---
[facility] PROGRESS NOTE DATE: 02/17/2021 Vital signs: Blood pressure 116/62, pulse 72, temperature 98.6. She is seen in the presence of staff. CHIEF COMPLAINT: Says feels okay. SUBJECTIVE: Seen for followup. Indicates feels okay, and that she had a good night, says is eating well, suggests wishes to go home, and that she would go to a motel. She also indicated she was homeless. MENTAL STATUS EXAMINATION: Cooperative though a bit guarded. No agitation, coherent, no psychomotor retardation. Affect restricted but reactive. Denies any thoughts of harming herself or anyone else. Currently no evidence of any psychosis. Cognition is intact in that she is alert and oriented. Judgment and insight are compromised. ASSESSMENT: Bipolar disorder by history. Consider borderline intellectual functioning. PLAN: Continue current care, observations, and look at obtaining collateral information. Again, there are concerns regarding intellectual limitations, and this posing considerable difficulty for her negotiating the challenges in the community, including homelessness. Further recommendations will be made when she sees the clinicians tomorrow. I would have concerns about discharge, given her limitations, as this may increase the risk of readmission.
[2021-02-19] MEDS: MULTIVITAMINS/MINERALS THERAP 1 TAB PO SCH (09:31)
[2021-02-19] MEDS: TOPIRAMATE (TopAMAX) 25 MG TAB PO SCH ×2 (09:31→21:14)
[2021-02-19] MEDS: FOLIC ACID 1 MG TAB PO SCH (09:32)
[2021-02-19] MEDS: POTASSIUM CHLORIDE 10 MEQ SR TABLET PO SCH ×2 (09:32→21:14)
[2021-02-19] MEDS: HYDROXYCHLOROQUINE 200 MG TAB PO SCH ×2 (09:32→21:15)
[2021-02-19] MEDS: GABAPENTIN 400MG CAP PO SCH ×3 (09:32→21:14)
[2021-02-19] MEDS: MAGNESIUM OXIDE 400MG TAB (MAG-OX) PO SCH (09:32)
[2021-02-19] MEDS: ADVAIR HFA 230/21MCG INHALER INH SCH ×2 (09:33→21:14)
--- NOTE | 2021-02-19 16:44 | MHIPNPDOC ---
[facility] Note DATE OF SERVICE: 02/19/21 HISTORY: Patient is a 40 year old Single, Intellectually Disabled, Domiciled, Female who had come the emergency room by ambulance. She reported that she was having a seizure. She also told staff over at the ER that she was suicidal, was not happy with her living situation, and felt increasingly hopeless. She has apparently been in the emergency room on several occasions since November of this year, discharged on every occasion. Says thought that she was having a possible pseudoseizure, though it is not clear. She is also at a local motel, was apparently asked to leave there because she was caught snacking in her room. She was placed by Department of Tire Recapping Machine Operator (DSS) at another motel, but found it difficult being there apparently due to geographical bar riers and there are concerns that she is not able to get her medicines, toiletries and has C-Diff. VITAL SIGNS: See below. CURRENT MEDICATIONS: See below. MENTAL STATUS EXAMINATION: Patient is a 40 year old Single, Intellectually Disabled, Domiciled, Female who had reported that she was having a seizure. She also told staff over at the ER that she was suicidal, was not happy with her living situation, and felt increasingly hopeless Speech: Is spontaneous, normal rate, tone and loud volume Language skills are intact Thought processes including: linear and goal oriented Thought content: denies depression and anxiety. Denies suicidal/homicidal ideation, planning or intent. Abstract reasoning, and computation: fair Description of associations: denies, none observed Description of abnormal or psychotic thoughts: denies, none observed. Judgment: fair Insight: fair Orientation: alert and oriented to person, place, time and situation Recent and remote memory: intact Attention span and concentration: fair Language: expansive, yelling profanities Fund of knowledge: below average Mood: Irritable/agitated/dismissive/hostile Mood Affect: flat/labile DIAGNOSES: 1. Bipolar disorder by history. 2. 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 3. Possible Housing Issue/Homelessness. ASSESSMENT: Patient is labile today, reports that she is not depressed or anxious, not suicidal or homicidal. She denies A/V hallucinations and demands to be discharged to home, in trying to reach patient's case management to determine her housing patient is yelling out profanities. I recommend that patient be discharged when we can verify her housing. I do not believe that continuing her hospitalization will be helpful for the patient as she is isolated to her room due to contact precautions for C-diff. MANAGEMENT PLAN: continue all medications, discharge housing is verified. TIME SPENT: 25 minutes. Vital Signs Vital Signs Date Time Temp Pulse Resp B/P (MAP) Pulse Ox O2 Delivery O2 Flow Rate FiO2 02/19/21 06:48 98.4 80 20 136/84 (101) 97 02/17/21 06:32 Room Air Current Medications Current Medications Medications (Trade) Dose Ordered Sig/Ninfa Route PRN Reason Start Time Stop Time Status Last Admin Dose Admin Acetaminophen (Tylenol Tab) 650 mg Q4H PRN PO PAIN 02/15/21 13:45 02/15/21 22:50 Acetaminophen (Tylenol Tab) 650 mg Q6HP PRN PO HEADACHE or DISCOMFORT 02/15/21 13:45 UNV Al Hydrox/Mg Hydrox/Simethicone (Mylanta) 30 ml Q4HP PRN PO HEARTBURN/INDIGESTION 02/15/21 13:45 Albuterol Sulfate (Proventil, Ventolin Hfa) 2 puff Q4H PRN INH SHORTNESS OF BREATH 02/15/21 13:45 Duloxetine HCl (Cymbalta) 120 mg QPM@1800 PO 02/15/21 18:00 02/18/21 17:18 Folic Acid (Folic Acid) 1 mg DAILY PO 02/15/21 09:00 02/19/21 09:32 Gabapentin (Neurontin) 400 mg TID PO 02/15/21 16:00 02/19/21 09:32 Home Med (Med Rec Complete!) ASDIRECTED XX 02/15/21 11:00 02/15/21 11:02 DC Hydroxychloroquine Sulfate (Plaquenil) 200 mg BID PO 02/15/21 21:00 02/19/21 09:32 Levothyroxine Sodium (Synthroid) 25 mcg DAILY@0600 PO 02/16/21 06:00 02/19/21 06:25 Magnesium Hydroxide (Milk Of Magnesia) 30 ml DAILYPRN PRN PO CONSTIPATION 02/15/21 13:45 Magnesium Oxide (Mag-Ox) 400 mg DAILY PO 02/15/21 09:00 02/19/21 09:32 Methotrexate (Folex) 7.5 mg Mo@0900 PO 02/18/21 09:00 02/18/21 09:51 Metoprolol Tartrate (Lopressor) 50 mg QPM@1800 PO 02/15/21 18:00 02/18/21 17:21 Montelukast Sodium (Singulair) 10 mg QPM@1800 PO 02/15/21 18:00 02/18/21 17:19 Multivitamins (Theragram-M) 1 tab DAILY PO 02/15/21 09:00 02/19/21 09:31 Olanzapine (ZyPREXA) 5 mg QPM@1800 PO 02/15/21 18:00 02/18/21 17:19 Potassium Chloride (Micro-K Extencaps) 10 meq BID PO 02/15/21 21:00 02/19/21 09:32 Saliva Substitute (Mouthkote) 2 sprays ASDIRECTED PRN MT xerostomia 02/16/21 16:10 Salmeterol Xinafoate/ Fluticasone (Advair Hfa ) 2 puff BID INH 02/16/21 21:00 02/19/21 09:33 Sumatriptan Succinate (Imitrex) 25 mg Q12H PRN PO MIGRAINE 02/15/21 13:45 02/16/21 15:59 Topiramate (TopAMAX) 50 mg BID PO 02/15/21 21:00 02/19/21 09:31 Trazodone HCl (Desyrel) 100 mg QHS PO 02/15/21 21:00 02/18/21 21:54 Vancomycin HCl (First-Vancomycin 50(Firvanq)- 250mg/5ml) 125 mg Q6H PO 02/16/21 12:00 02/26/21 12:00 02/19/21 06:26 Allergies Coded Allergies: Sulfa (Sulfonamide Antibiotics) (Verified Allergy, Intermediate, RASH AND HIVES, 02/15/21) buspirone (Verified Allergy, Intermediate, hives, 02/15/21) cephalexin (Verified Allergy, Intermediate, hives, 02/15/21) erythromycin base (Verified Allergy, Intermediate, hives/rash, 02/15/21) latex (Verified Allergy, Intermediate, hives, 02/15/21) levofloxacin (Verified Allergy, Intermediate, hives/rash, 02/15/21) lisinopril (Verified Allergy, Intermediate, hives/rash, 02/15/21) sulfamethoxazole (Verified Allergy, Intermediate, hives/rash, 02/15/21) eszopiclone (Verified Allergy, Mild, rash, 02/15/21) metoclopramide (Verified Allergy, Unknown, 02/15/21) omeprazole (Verified Allergy, Unknown, 02/15/21) bupropion (Verified Adverse Reaction, Mild, nausea, 02/15/21) trimethoprim (Verified Adverse Reaction, Mild, nausea/vomitting, 02/15/21) RAMON MURILLO NP Feb 19, 2021 11:40
[2021-02-19] MEDS: DULoxetine 30 MG CAP (CYMBALTA) PO SCH (18:00)
[2021-02-19] MEDS: OLANZapine 5 MG TAB PO SCH (18:00)
[2021-02-19] MEDS: MONTELUKAST 10 MG TAB PO SCH (18:00)
[2021-02-19] MEDS: METOPROLOL TART 50 MG TAB PO SCH (18:00)
[2021-02-19] MEDS: traZODone 100 MG TAB PO SCH (21:14)
[2021-02-19] MEDS: SUMAtriptan SUCCINATE 25 MG TAB PO PRN (21:15)
[2021-02-20] MEDS: LEVOTHYROXINE 25MCG TABLET (0.025MG) PO SCH (05:50)
[2021-02-20] MEDS: VANCOMYCIN ORAL SOL 250MG/5ML ORAL SYRINGE PO SCH ×2 (05:50→11:52)
[2021-02-20 06:00] VITALS: BP 124/70
[2021-02-20] MEDS: HYDROXYCHLOROQUINE 200 MG TAB PO SCH (09:00)
[2021-02-20] MEDS: TOPIRAMATE (TopAMAX) 25 MG TAB PO SCH (10:14)
[2021-02-20] MEDS: GABAPENTIN 400MG CAP PO SCH (10:14)
[2021-02-20] MEDS: ADVAIR HFA 230/21MCG INHALER INH SCH (10:14)
[2021-02-20] MEDS: MULTIVITAMINS/MINERALS THERAP 1 TAB PO SCH (10:15)
[2021-02-20] MEDS: FOLIC ACID 1 MG TAB PO SCH (10:15)
[2021-02-20] MEDS: MAGNESIUM OXIDE 400MG TAB (MAG-OX) PO SCH (10:15)
[2021-02-20 10:16] VITALS: BP 105/73
[2021-02-20] MEDS: POTASSIUM CHLORIDE 10 MEQ SR TABLET PO SCH (10:16)
[2021-02-20] MEDS: METOPROLOL TART 50 MG TAB PO SCH (10:16)
--- NOTE | 2021-02-20 10:22 | MHDSPDOC ---
[facility] Discharge Summary Discharge Summary DATE OF ADMISSION: Feb 15, 2021 at 13:45 DATE OF DISCHARGE: Feb 20, 2021 at 1008 DISCHARGE DIAGNOSES: 1. Bipolar disorder 2. Unspecified Intellectual Disabilities REASON FOR ADMISSION: Patient is a 40 year old Single, Intellectually Disabled, Domiciled, Female who had come the emergency room by ambulance. She reported that she was having a seizure. She also told staff over at the ER that she was suicidal, was not happy with her living situation, and felt increasingly hopeless. She has apparently been in the emergency room on several occasions since November of this year, discharged on every occasion. Says thought that she was having a possible pseudoseizure, though it is not clear. She is also at a local motel, was apparently asked to leave there bec ause she was caught snacking in her room. She was placed by Department of Early Childhood Director (DSS) at another motel, but found it difficult being there apparently due to geographical barriers and there are concerns that she is not able to get her medicines, toiletries and has C-Diff. CONSULTANTS INVOLVED: See Medical H + P by Hospitalist TREATMENT AND PROGRESS ON THE UNIT: Patient was admitted to the [facility] on a 9.39 legal status he was afforded the following treatment modalities: 1) Individual Therapy 2) Group Therapy 3) Medication Management 4) Milieu Therapy 5) Safe Environment HOSPITAL COURSE: Pt admitted to [facility] on a 939, restarted on her meds, pt was evaluated by the deputy coroner psychiatrist , pt denies issues with having any dep ression, anxiety, suicidal/homicidal thoughts or intent. Hospitalization was extended to determine legitimate housing. Hospital reached out to her hospice case manager with no returned call, pt is adamant that she has housing at the "[facility]". No longer has suicidal thinking, reasons for living are her son and her father who she had seen in the past year. Pt seemed very pleasant today, no profanities used. DISCHARGE ASSESSMENT: In today's interview, patient is alert and oriented, pts dress is appropriate. Hygiene and grooming is well-kempt. Smiles on approach and is pleasant and engaged in the interview. Denies depression and anxiety. Denies suicidal and homicidal ideation, planning or intent. Denies and is not observed with josie, psychotic symptoms of delusions, bizarre thinking, obsessions, paranoia, ruminations illogical thoughts, flight of ideas or having poor insight and judgement. Patient has normal mentation, declines further hospitalization on a voluntary status and meets criteria for discharge today. MENTAL STATUS EXAMINATION ON DISCHARGE: Patient is a 40 year old Single, Intellectually Disabled, Domiciled, F emale who had come the emergency room by ambulance. She also told staff over at the ER that she was suicidal, was not happy with her living situation, and felt increasingly hopeless. Speech: Is fluid, conversant, normal rate, tone and volume Language skills are intact Thought processes including: linear and goal oriented Thought content: denies depression and anxiety. Denies suicidal/homicidal ideation, planning or intent. Abstract reasoning, and computation: fair Description of associations: denies, none observed Description of abnormal or psychotic thoughts: denies, none observed. Judgment: fair Insight: fair Orientation: alert and oriented to person, place, time and situation Recent and remote memory: intact Attention span and concentration: good Language: expansive Fund of knowledge: below average Mood: Euthymic Mood Affect: pt affect was euthymic and congruent with mood MEDICATIONS ON DISCHARGE: See Medication Reconciliation PLAN/FOLLOWUP ARRANGEMENTS: [facility] Family The amount of time spent in the coordination of care for this patient was approximately 25 minutes. ETOH/Disorder Med Rx ETOH/DRUG DISORDER RX: N/A Vital Signs/I&Os Vital Signs Date Time Temp Pulse Resp B/P (MAP) Pulse Ox O2 Delivery O2 Flow Rate FiO2 02/20/21 06:00 99.5 83 18 124/70 (88) 97 02/17/21 06:32 Room Air Medications Scheduled Duloxetine Hcl (Cymbalta) 60 Mg Capsule.dr, 120 MG PO QPM, (Reported) Fluticasone/Umeclidin/Vilanter (Trelegy Ellipta 100-62.5-25) 1 Each Blst.w.dev, 1 PUFF PO DAILY, (Reported) Folic Acid (Folic Acid) 1 Mg Tablet, 1 MG PO DAILY, (Reported) Gabapentin (Gabapentin) 400 Mg Capsule, 400 MG PO TID, (Reported) Hydroxychloroquine Sulfate (Hydroxychloroquine Sulfate) 200 Mg Tablet, 200 MG PO BID, (Reported) Levothyroxine Sodium (Levothyroxine Sodium) 25 Mcg Tablet, 25 MCG PO DAILY, (Reported) Magnesium Oxide (Magnesium Oxide) 400 Mg Tablet, 400 MG PO DAILY, (Reported) Methotrexate Sodium (Methotrexate) 2.5 Mg Tablet, 7.5 MG PO QWEEK, (Reported) MONDAYS Metoprolol Tartrate (Metoprolol Tartrate) 50 Mg Tablet, 50 MG PO QPM, (Reported) Montelukast Sodium (Montelukast Sodium) 10 Mg Tablet, 10 MG PO QPM, (Reported) Multivitamins (Thera M Plus Tablet) 1 Each Tablet, 1 TAB PO DAILY, (Reported) Olanzapine (Zyprexa) 5 Mg Tablet, 5 MG PO QPM, (Reported) Potassium Chloride (Potassium Chloride) 10 Meq Capsule.er, 10 MEQ PO BID, (Reported) Topiramate (Topamax) 50 Mg Tablet, 50 MG PO BID, (Reported) Trazodone HCl (Trazodone HCl) 100 Mg Tablet, 100 MG PO QHS, (Reported) Vancomycin Hcl (Vancomycin HCl) 125 Mg Capsule, 125 MG PO QID, (Reported) Scheduled PRN Acetaminophen (Acetaminophen) 325 Mg Tablet, 650 MG PO Q4H PRN for PAIN, (Reported) Albuterol Sulfate (Ventolin Hfa) 18 Gm Hfa.aer.ad, 2 PUFF INH Q4H PRN for SHORTNESS OF BREATH, (Reported) Alprazolam (Xanax) 0.5 Mg Tablet, 0.5 MG PO BID PRN for ANXIETY/AGITATION, (Reported) Pilocarpine HCl (Salagen) 5 Mg Tablet, 5 MG PO TID PRN for XEROSTOMIA, (Reported) Sumatriptan Succinate (Sumatriptan Succinate) 25 Mg Tablet, 25 MG PO Q12H PRN for MIGRAINE, (Reported) Zolpidem Tartrate (Zolpidem Tartrate) 10 Mg Tablet, 10 MG PO QHS PRN for SLEEP, (Reported) Allergies Coded Allergies: Sulfa (Sulfonamide Antibiotics) (Verified Allergy, Intermediate, RASH AND HIVES, 02/15/21) buspirone (Verified Allergy, Intermediate, hives, 02/15/21) cephalexin (Verified Allergy, Intermediate, hives, 02/15/21) erythromycin base (Verified Allergy, Intermediate, hives/rash, 02/15/21) latex (Verified Allergy, Intermediate, hives, 02/15/21) levofloxacin (Verified Allergy, Intermediate, hives/rash, 02/15/21) lisinopril (Verified Allergy, Intermediate, hives/rash, 02/15/21) sulfamethoxazole (Verified Allergy, Intermediate, hives/rash, 02/15/21) eszopiclone (Verified Allergy, Mild, rash, 02/15/21) metoclopramide (Verified Allergy, Unknown, 02/15/21) omeprazole (Verified Allergy, Unknown, 02/15/21) bupropion (Verified Adverse Reaction, Mild, nausea, 02/15/21) trimethoprim (Verified Adverse Reaction, Mild, nausea/vomitting, 02/15/21) RAMON MURILLO NP Feb 20, 2021 10:19
== END 2021-02-20 12:39 | disposition home or self-care (01) | DRG 885 ==
LOC: M ED 01:20 → M ED INP 13:45 → M PSY 15:30
PROVIDERS: ADMIT Psychiatry & Neurology Psychiatry; ATTEND Psychiatry & Neurology Psychiatry
DX: F31.9 Bipolar disorder, unspecified (principal); R45.851 Suicidal ideations; F50.2 Bulimia nervosa; A04.72 Enterocolitis due to Clostridium difficile, not specified as recurrent; F79 Unspecified intellectual disabilities; Z79.899 Other long term (current) drug therapy; Z88.2 Allergy status to sulfonamides; Z91.040 Latex allergy status; Z88.8 Allergy status to other drugs, medicaments and biological substances; F41.9 Anxiety disorder, unspecified; G43.909 Migraine, unspecified, not intractable, without status migrainosus; M79.7 Fibromyalgia; I10 Essential (primary) hypertension; K21.9 Gastro-esophageal reflux disease without esophagitis; M06.9 Rheumatoid arthritis, unspecified; K76.0 Fatty (change of) liver, not elsewhere classified; M35.00 Sjogren syndrome, unspecified; F17.200 Nicotine dependence, unspecified, uncomplicated; Z91.14 Patient's other noncompliance with medication regimen; E03.9 Hypothyroidism, unspecified

== ENCOUNTER → 2021-02-27 | Outpatient (CLI) | payer MEDICARE, MEDICAID ==
[~2021-02-27] MED LIST changes: -ACET-908 PO; +ACET-910 PO; +MAGN400T2 PO; +TREL1AER PO; +ZOLP10TA2 PO
--- NOTE | 2021-02-27 18:11 | REP ---
INDICATION: EFFUSION RT ANKLE, LAB 1ST THEN XR. COMPARISON: Comparison right ankle radiographs are from June 08, 2018.. TECHNIQUE: Four views of the right ankle are provided. FINDINGS: Four views of the right ankle demonstrate an intact ankle mortise. There is plantar calcaneal spurring. No fracture is seen. The silhouette of the Achilles tendon is not well defined and there appears to be diffuse edema anterior and posterior to the ankle. IMPRESSION: No acute bony abnormality. Anterior and posterior soft tissue swelling. Poor definition of the Achilles tendon. Correlation with physical exam findings suggested. If Achilles tendon injury or inflammation suspected clinically, MRI study could be considered. Plantar heel spurring. <Electronically signed by Rogelio Hinojosa > 02/27/21 [id number]
--- NOTE | 2021-02-27 18:12 | REP ---
INDICATION: EFFUSION RT ANKLE, LAB 1ST THEN XR. COMPARISON: Comparison radiographs of the right foot are dated June 08, 2018.. TECHNIQUE: Four views of the right foot are provided. FINDINGS: Four views of the right foot demonstrate plantar calcaneal spurring. Overall mineralization pattern is normal. No fracture or subluxation is seen. The lateral view of the right foot does show good definition of the anterior margin of the Achilles tendon.. . No opaque foreign body noted. IMPRESSION: Plantar heel spurring. Otherwise negative right foot radiographs.. <Electronically signed by Rogelio Hinojosa > 02/27/21 [id number]
[2021-02-27 19:28] LABS: BLOOD UREA NITROGEN 8 MG/DL (7-18); CALCIUM LEVEL 9.3 MG/DL (8.5-10.1); CARBON DIOXIDE LEVEL 20 MEQ/L (21-32); CHLORIDE LEVEL 111 MEQ/L (98-107); CREATININE FOR GFR 0.98 MG/DL (0.55-1.30); GLOMERULAR FILTRATION RATE > 60.0 (>58); GLUCOSE, FASTING 84 MG/DL (70-100); SODIUM LEVEL 138 MEQ/L (136-145)
== END ==
LOC: M LAB 16:39
PROVIDERS: ATTEND Pediatrics
DX: R74.8 Abnormal levels of other serum enzymes (principal); E87.6 Hypokalemia; M25.471 Effusion, right ankle; M77.31 Calcaneal spur, right foot

== ENCOUNTER 2021-03-05 10:28 | Emergency (ER) | payer MEDICARE, MEDICAID ==
[~2021-03-05] VITALS: Ht 170.2 cm; Wt 81.8 kg
[2021-03-05] MEDS ORDERED: NS 1,000 ML IV ONE (13:30)
[2021-03-05] MEDS ORDERED: KETOROLAC 30 MG/ML 1ML VIAL IV ONE (13:30)
[2021-03-05 15:03] LABS: BASO # 0.1 10^3/uL (0.0-0.2); BASO % 0.8 % (0.0-1.0); EOS # 0.3 10^3/uL (0.0-0.5); EOS % 3.7 % (0.0-3.0); HEMOGLOBIN 13.6 g/dl (12.0-15.5); LYMPH # 2.7 10^3/uL (1.5-5.0); LYMPH % 38.6 % (24.0-44.0); MEAN CORPUSCULAR HEMOGLOBIN 31.6 pg (27.0-33.0); MEAN CORPUSCULAR HGB CONC 30.9 g/dl (32.0-36.5); MEAN CORPUSCULAR VOLUME 102.1 fl (80.0-96.0); MONO # 0.4 10^3/uL (0.0-0.8); MONO % 5.2 % (2.0-8.0); NEUTROPHILS # 3.6 10^3/uL (1.5-8.5); NEUTROPHILS % 51.3 % (36.0-66.0); PLATELET COUNT, AUTOMATED 221 10^3/uL (150-450); RED BLOOD COUNT 4.31 10^6/uL (4.00-5.40); WHITE BLOOD COUNT 7.1 10^3/uL (4.0-10.0)
[2021-03-05 15:19] VITALS: BP 105/68
[2021-03-05 15:33] LABS: BLOOD UREA NITROGEN 9 MG/DL (7-18); CREATININE FOR GFR 1.02 MG/DL (0.55-1.30); GLUCOSE, FASTING 83 MG/DL (70-100)
[2021-03-05 15:34] LABS: CARBON DIOXIDE LEVEL 14 MEQ/L (21-32); CHLORIDE LEVEL 118 MEQ/L (98-107); GLOMERULAR FILTRATION RATE > 60.0 (>58); MAGNESIUM LEVEL 1.9 MG/DL (1.8-2.4); POTASSIUM SERUM 4.7 MEQ/L (3.5-5.1); SODIUM LEVEL 142 MEQ/L (136-145)
== END 2021-03-05 16:39 | disposition home or self-care (01) ==
LOC: M ED 10:28
DX: R51.9 Headache, unspecified (principal); Z79.51 Long term (current) use of inhaled steroids; Z79.899 Other long term (current) drug therapy; Z88.1 Allergy status to other antibiotic agents; Z88.2 Allergy status to sulfonamides; Z88.8 Allergy status to other drugs, medicaments and biological substances; Z91.040 Latex allergy status
CPT/HCPCS: 80048; 83735; 85025; 96361; 96374; 99284; J1885

== ENCOUNTER 2021-03-07 06:09 | Emergency (ER) | payer MEDICARE, MEDICAID ==
[~2021-03-07] VITALS: Ht 170.2 cm; Wt 36.8 kg
[2021-03-07 08:21] LABS: BASO # 0.1 10^3/uL (0.0-0.2); BASO % 0.9 % (0.0-1.0); EOS # 0.3 10^3/uL (0.0-0.5); EOS % 3.8 % (0.0-3.0); HEMATOCRIT 41.2 % (36.0-47.0); HEMOGLOBIN 13.2 g/dl (12.0-15.5); LYMPH # 2.5 10^3/uL (1.5-5.0); LYMPH % 37.7 % (24.0-44.0); MEAN CORPUSCULAR HEMOGLOBIN 31.2 pg (27.0-33.0); MEAN CORPUSCULAR VOLUME 97.4 fl (80.0-96.0); MONO # 0.5 10^3/uL (0.0-0.8); MONO % 6.9 % (2.0-8.0); NEUTROPHILS # 3.3 10^3/uL (1.5-8.5); NEUTROPHILS % 50.2 % (36.0-66.0); PLATELET COUNT, AUTOMATED 331 10^3/uL (150-450); RED BLOOD COUNT 4.23 10^6/uL (4.00-5.40); WHITE BLOOD COUNT 6.6 10^3/uL (4.0-10.0)
--- NOTE | 2021-03-07 08:27 | REP ---
INDICATION: CHEST PAIN COMPARISON: 02/03/2021 TECHNIQUE: Portable AP view of the chest FINDINGS: The mediastinum and cardiac silhouette are stable and within normal limits for portable technique. The lung rios are clear without acute consolidation, effusion, or pneumothorax. Skeletal structures are intact. IMPRESSION: No acute cardiopulmonary process appreciated. <Electronically signed by Jony Ley > 03/07/21 [id number]
[2021-03-07 09:02] LABS: BLOOD UREA NITROGEN 5 MG/DL (7-18); CALCIUM LEVEL 8.1 MG/DL (8.5-10.1); CARBON DIOXIDE LEVEL 17 MEQ/L (21-32); CHLORIDE LEVEL 117 MEQ/L (98-107); CK-MB VALUE MASS < 1.0 NG/ML (<3.6); CPK CREATINE PHOSPHOKINASE 27 U/L (26-192); CREATININE FOR GFR 0.91 MG/DL (0.55-1.30); GLOMERULAR FILTRATION RATE > 60.0 (>58); GLUCOSE, FASTING 89 MG/DL (70-100); POTASSIUM SERUM 3.6 MEQ/L (3.5-5.1); SODIUM LEVEL 141 MEQ/L (136-145); TROPONIN I < 0.02 NG/ML (< 0.10)
[2021-03-07 09:15] VITALS: BP 123/79
--- NOTE | 2021-03-07 18:14 | ECGEPIP ---
[facility] - ED Test Date: 2021-03-07 Pat Name: DESIRAE NAVARRO Department: Room: - Gender: Female Haul Cane Brakeman: ulices : 1980 Requested By: WILLIAM Booth PA-C Order Number: [id number] Reading MD: Ayse Herrera Measurements Intervals [place] Rate: 91 P: 51 MD: 160 QRS: 62 QRSD: 80 T: 50 QT: 376 QTc: 462 Interpretive Statements Normal sinus rhythm Nonspecific T wave abnormality increased rate 02/03/21 Electronically Signed on 03-07-2021 18:14:40 EDT by Ayse Herrera
== END 2021-03-07 09:48 | disposition home or self-care (01) ==
LOC: M ED 06:09
DX: F43.0 Acute stress reaction (principal); R07.9 Chest pain, unspecified; I10 Essential (primary) hypertension; F17.200 Nicotine dependence, unspecified, uncomplicated; F12.10 Cannabis abuse, uncomplicated; K21.9 Gastro-esophageal reflux disease without esophagitis; J44.9 Chronic obstructive pulmonary disease, unspecified; Z88.1 Allergy status to other antibiotic agents; Z88.2 Allergy status to sulfonamides; Z91.040 Latex allergy status; Z88.8 Allergy status to other drugs, medicaments and biological substances

== ENCOUNTER → 2021-03-11 | Outpatient (CLI) | payer MEDICARE, MEDICAID ==
[2021-03-11 15:28] LABS: ALBUMIN 3.1 GM/DL (3.2-5.2); ALT/SGPT 13 U/L (12-78); BILIRUBIN,TOTAL 0.5 MG/DL (0.2-1.0); BLOOD UREA NITROGEN 8 MG/DL (7-18); CALCIUM LEVEL 9.1 MG/DL (8.5-10.1); CARBON DIOXIDE LEVEL 18 MEQ/L (21-32); CHLORIDE LEVEL 112 MEQ/L (98-107); CREATININE FOR GFR 0.91 MG/DL (0.55-1.30); GLOMERULAR FILTRATION RATE > 60.0 (>58); GLUCOSE, FASTING 91 MG/DL (70-100); LIPASE 110 U/L (73-393); POTASSIUM SERUM 4.5 MEQ/L (3.5-5.1); SODIUM LEVEL 139 MEQ/L (136-145); TOTAL PROTEIN 5.9 GM/DL (6.4-8.2)
[2021-03-11 15:58] LABS: TOTAL 25(OH) VITAMIN D 25.9 NG/ML (30.0-100.0)
== END ==
LOC: M LAB 14:29
PROVIDERS: ATTEND Pediatrics
DX: E83.51 Hypocalcemia (principal)

== ENCOUNTER 2021-03-16 11:15 | Emergency (ER) | payer MEDICARE, MEDICAID ==
[~2021-03-16] VITALS: Ht 167.6 cm; Wt 77.3 kg
[2021-03-16] MEDS ORDERED: DIVA1TAB48 (12:14)
[2021-03-16] MEDS ORDERED: ZOLP10TA2 (12:14)
--- NOTE | 2021-03-16 12:49 | REP ---
INDICATION: right lateral rib pain s/p fall COMPARISON: None. TECHNIQUE: Frontal view of the chest with four views of the right hemithorax. FINDINGS: Frontal view of the chest demonstrates no acute cardiopulmonary process, contusion, effusion, or pneumothorax. A very subtle nondisplaced acute versus chronic fracture involving the posterolateral aspect of the 11th rib cannot be excluded.. IMPRESSION: Questionable nondisplaced injury along the posterolateral aspect of the right 11th rib of indeterminate age. Otherwise normal examination. <Electronically signed by Jony Ley > 03/16/21 [id number]
--- NOTE | 2021-03-16 13:24 | ECGEPIP ---
[facility] - ED Test Date: 2021-03-16 Pat Name: DESIRAE NAVARRO Department: Room: - Gender: Female Correction Warden: ISIDORO : 1980 Requested By: Maged Castro Order Number: [id number] Reading MD: Maged Castro Measurements Intervals [place] Rate: 66 P: 92 [place]: 156 QRS: 79 QRSD: 78 T: 81 QT: 400 QTc: 419 Interpretive Statements Normal sinus rhythm Nonspecific ST T wave changes 03/07/[address] T wave changes Electronically Signed on 03-16-2021 13:24:38 EDT by Maged Castro
[2021-03-16 13:30] LABS: BASO % 0.4 % (0.0-1.0); EOS % 0.4 % (0.0-3.0); HEMOGLOBIN 13.2 g/dl (12.0-15.5); LYMPH # 1.3 10^3/uL (1.5-5.0); LYMPH % 14.5 % (24.0-44.0); MEAN CORPUSCULAR HEMOGLOBIN 31.6 pg (27.0-33.0); MEAN CORPUSCULAR HGB CONC 32.2 g/dl (32.0-36.5); MEAN CORPUSCULAR VOLUME 98.1 fl (80.0-96.0); MONO # 0.6 10^3/uL (0.0-0.8); MONO % 6.3 % (2.0-8.0); NEUTROPHILS # 7.1 10^3/uL (1.5-8.5); PLATELET COUNT, AUTOMATED 259 10^3/uL (150-450); RED BLOOD COUNT 4.18 10^6/uL (4.00-5.40); WHITE BLOOD COUNT 9.1 10^3/uL (4.0-10.0)
[2021-03-16 13:44] LABS: BLOOD UREA NITROGEN 4 MG/DL (7-18); CALCIUM LEVEL 8.8 MG/DL (8.5-10.1); CARBON DIOXIDE LEVEL 24 MEQ/L (21-32); CHLORIDE LEVEL 108 MEQ/L (98-107); CREATININE FOR GFR 0.79 MG/DL (0.55-1.30); GLOMERULAR FILTRATION RATE > 60.0 (>58); GLUCOSE, FASTING 100 MG/DL (70-100); POTASSIUM SERUM 4.6 MEQ/L (3.5-5.1); SODIUM LEVEL 140 MEQ/L (136-145)
[2021-03-16 14:00] VITALS: BP 115/77
== END 2021-03-16 14:49 | disposition home or self-care (01) ==
LOC: M ED 11:15 → EDBD 11:15 → M ED 14:49
DX: R55 Syncope and collapse (principal); S22.31XA Fracture of one rib, right side, initial encounter for closed fracture; W01.0XXA Fall on same level from slipping, tripping and stumbling without subsequent striking against object, initial encounter; Y92.012 Bathroom of single-family (private) house as the place of occurrence of the external cause; Y93.9 Activity, unspecified; Y99.9 Unspecified external cause status; I10 Essential (primary) hypertension; J44.9 Chronic obstructive pulmonary disease, unspecified; E78.5 Hyperlipidemia, unspecified; F31.89 Other bipolar disorder; Z86.73 Personal history of transient ischemic attack (TIA), and cerebral infarction without residual deficits; Z88.1 Allergy status to other antibiotic agents; Z88.2 Allergy status to sulfonamides; Z88.8 Allergy status to other drugs, medicaments and biological substances; Z79.899 Other long term (current) drug therapy

== ENCOUNTER 2021-03-18 15:19 | Emergency (ER) | payer MEDICARE, MEDICAID, OTHER ==
[~2021-03-18] VITALS: Ht 154.9 cm; Wt 65.9 kg
[~2021-03-18 15:19] MED LIST changes: +DIVA1TAB48; +ZOLP10TA2
[2021-03-18 17:36] LABS: BASO # 0.1 10^3/uL (0.0-0.2); EOS % 0.1 % (0.0-3.0); HEMATOCRIT 36.3 % (36.0-47.0); LYMPH # 2.5 10^3/uL (1.5-5.0); LYMPH % 34.1 % (24.0-44.0); MEAN CORPUSCULAR HEMOGLOBIN 31.9 pg (27.0-33.0); MEAN CORPUSCULAR HGB CONC 33.1 g/dl (32.0-36.5); MEAN CORPUSCULAR VOLUME 96.5 fl (80.0-96.0); MONO # 0.6 10^3/uL (0.0-0.8); MONO % 8.5 % (2.0-8.0); NEUTROPHILS # 4.1 10^3/uL (1.5-8.5); PLATELET COUNT, AUTOMATED 267 10^3/uL (150-450); RED BLOOD COUNT 3.76 10^6/uL (4.00-5.40); WHITE BLOOD COUNT 7.3 10^3/uL (4.0-10.0)
[2021-03-18 18:06] LABS: ALBUMIN 2.5 GM/DL (3.2-5.2); ALT/SGPT 11 U/L (12-78); BILIRUBIN,DIRECT 0.1 MG/DL (0.0-0.2); BILIRUBIN,TOTAL 0.4 MG/DL (0.2-1.0); BLOOD UREA NITROGEN 4 MG/DL (7-18); CALCIUM LEVEL 8.6 MG/DL (8.5-10.1); CARBON DIOXIDE LEVEL 26 MEQ/L (21-32); CHLORIDE LEVEL 107 MEQ/L (98-107); GLOMERULAR FILTRATION RATE > 60.0 (>58); GLUCOSE, FASTING 72 MG/DL (70-100); HCG, SERUM QUALITATIVE NEGATIVE (NEGATIVE); LIPASE 101 U/L (73-393); POTASSIUM SERUM 4.4 MEQ/L (3.5-5.1); SODIUM LEVEL 137 MEQ/L (136-145); TOTAL PROTEIN 4.9 GM/DL (6.4-8.2)
[2021-03-18] MEDS ORDERED: ISOVUE-370 76% 100ML VIAL As Ordered ONE (18:36)
--- NOTE | 2021-03-18 19:52 | ECGEPIP ---
[facility] - ED Test Date: 2021-03-18 Pat Name: DESIRAE NAVARRO Department: Room: - Gender: Female Film Washer: FERNANDA : 1980 Requested By: EDGAR Simms Order Number: [id number] Reading MD: Maged Castro Measurements Intervals [place] Rate: 80 P: 65 [place]: 134 QRS: 61 QRSD: 74 T: 69 QT: 368 QTc: 424 Interpretive Statements Normal sinus rhythm Nonspecific ST T wave changes cw 03/16/[address] T wave changes Electronically Signed on 03-18-2021 19:52:10 EDT by Maged Castro
--- NOTE | 2021-03-18 23:35 | REPVR ---
PROCEDURE INFORMATION: Exam: CT Abdomen And Pelvis With Contrast Exam date and time: 03/18/2021 6:16 PM Age: 40 years old Clinical indication: Abdominal pain; Generalized; Additional info: Gen abd pain diarrhea TECHNIQUE: Imaging protocol: Computed tomography of the abdomen and pelvis with contrast. Axial, coronal and sagittal reformatted images were created and reviewed. Radiation optimization: All CT scans at this facility use at least one of these dose optimization techniques: automated exposure control; mA and/or kV adjustment per patient size (includes targeted exams where dose is matched to clinical indication); or iterative reconstruction. Contrast material: ISOVUE 370; Contrast volume: 100 ml; Contrast route: INTRAVENOUS (IV); COMPARISON: CT ABD/PEL W/IV CONTRAST ONLY 08/26/2019 7:46 PM FINDINGS: Lungs: Linear stranding and groundglass at the lung bases, likely due to atelectasis and/or scarring. Pleural spaces: Small right pleural effusion. Liver: Unremarkable. Gallbladder and bile ducts: Status post cholecystectomy. No biliary ductal dilatation. Pancreas: Unremarkable. Spleen: Unremarkable. Adrenal glands: Normal. No mass. Kidneys and ureters: No mass. No radiodense calculi. No hydronephrosis. Stomach and bowel: Status post gastric bypass surgery. Multiple mildly distended, fluid-filled loops of small bowel with liquefied stool and air fluid levels in the colon. No obstruction. No bowel wall thickening. No pneumatosis. Appendix: Normal. Intraperitoneal space: No free fluid. No organized fluid collection. No free air. Vasculature: Unremarkable. No aneurysm. Lymph nodes: No pathologically enlarged lymph nodes. Urinary bladder: Unremarkable as visualized. Reproductive: Status post hysterectomy. 3.7 x 2.6 cm right adnexal cystic lesion. Bones/joints: No acute osseous abnormality. Osteopenia. Mild degenerative changes. Soft tissues: Unremarkable. IMPRESSION: 1. Multiple mildly distended, fluid-filled loops of small bowel with liquefied stool and air fluid levels in the colon. Gastroenteritis could produce this appearance. 2. 3.7 x 2.6 cm right adnexal cystic lesion. If clinically indicated, pelvic ultrasound may be obtained for further evaluation. 3. Small right pleural effusion. 4. Additional findings, as above. Electronically signed by: Alex Kay On 03/18/2021 23:35:32 PM
[2021-03-19 00:17] VITALS: BP 132/56
--- NOTE | 2021-03-20 06:38 | ED PDOC ---
Post-Departure Follow-Up dr tinoco faxed formal reportof ct abd/p for fu Maged Del Rio MD March 20, 2021 06:38
== END 2021-03-19 00:17 | disposition home or self-care (01) ==
LOC: M ED 15:19
DX: K52.9 Noninfective gastroenteritis and colitis, unspecified (principal); N83.8 Other noninflammatory disorders of ovary, fallopian tube and broad ligament; J90 Pleural effusion, not elsewhere classified; I10 Essential (primary) hypertension; M79.7 Fibromyalgia; F50.2 Bulimia nervosa; F79 Unspecified intellectual disabilities; F31.9 Bipolar disorder, unspecified; F41.9 Anxiety disorder, unspecified; Z98.84 Bariatric surgery status; F17.200 Nicotine dependence, unspecified, uncomplicated; Z88.1 Allergy status to other antibiotic agents; Z88.2 Allergy status to sulfonamides; Z91.040 Latex allergy status; Z88.8 Allergy status to other drugs, medicaments and biological substances; Z79.899 Other long term (current) drug therapy
CPT/HCPCS: 36415; 74177; 80048; 80076; 83690; 84703; 85025; 93005; 93041; 99284; Q9967

== ENCOUNTER 2021-03-24 02:30 | Emergency (ER) | payer MEDICARE, MEDICAID, OTHER ==
[~2021-03-24 02:30] MED LIST changes: +GABA-283 PO; -GABA-845 PO
== END 2021-03-24 02:54 | disposition left against medical advice (07) ==
LOC: M ED 02:30
DX: Z53.21 Procedure and treatment not carried out due to patient leaving prior to being seen by health care provider (principal)

== ENCOUNTER 2021-03-27 23:56 | Emergency (ER) | payer OTHER, MEDICAID ==
[~2021-03-27] VITALS: Ht 170.2 cm; Wt 72.7 kg
[2021-03-28 00:07] VITALS: BP 104/63
[2021-03-28] MEDS ORDERED: LIDOCAINE 5% (LIDODERM) PATCH TD ONE (01:10)
[2021-03-28] MEDS ORDERED: LIDO5DIS41 TD (01:16)
[2021-03-28] MEDS ORDERED: **NOTE PATIENT COMMENT** MISC XX SCH (21:00)
== END 2021-03-28 01:40 | disposition home or self-care (01) ==
LOC: M ED 23:56
DX: G89.4 Chronic pain syndrome (principal); M54.9 Dorsalgia, unspecified; I10 Essential (primary) hypertension; M79.7 Fibromyalgia; F50.2 Bulimia nervosa; F79 Unspecified intellectual disabilities; F31.9 Bipolar disorder, unspecified; F41.9 Anxiety disorder, unspecified; Z98.84 Bariatric surgery status; Z88.1 Allergy status to other antibiotic agents; Z88.2 Allergy status to sulfonamides; Z88.8 Allergy status to other drugs, medicaments and biological substances; Z79.899 Other long term (current) drug therapy

== ENCOUNTER 2021-03-30 01:18 | Emergency (ER) | payer OTHER, MEDICAID ==
[~2021-03-30 01:18] MED LIST changes: +LIDO5DIS41 TD
== END 2021-03-30 02:10 | disposition left against medical advice (07) ==
LOC: M ED 01:18
DX: Z53.21 Procedure and treatment not carried out due to patient leaving prior to being seen by health care provider (principal)

== ENCOUNTER 2021-04-03 22:32 | Emergency (ER) | payer OTHER, MEDICAID ==
[~2021-04-03] VITALS: Ht 170.2 cm; Wt 78.6 kg
[2021-04-03 22:32] VITALS: BP 135/86
== END 2021-04-04 01:24 | disposition home or self-care (01) ==
LOC: M ED 22:32
DX: R51.9 Headache, unspecified (principal); G89.4 Chronic pain syndrome; M54.9 Dorsalgia, unspecified; I10 Essential (primary) hypertension; M79.7 Fibromyalgia; F79 Unspecified intellectual disabilities; F31.9 Bipolar disorder, unspecified; F41.9 Anxiety disorder, unspecified; Z98.84 Bariatric surgery status; Z88.1 Allergy status to other antibiotic agents; Z88.2 Allergy status to sulfonamides; Z88.8 Allergy status to other drugs, medicaments and biological substances; Z79.899 Other long term (current) drug therapy

== ENCOUNTER → 2021-04-07 | Emergency (ER) | payer OTHER, MEDICAID ==
[~2021-04-07] VITALS: Ht 170.2 cm; Wt 79.5 kg
[~2021-04-07] MED LIST changes: +ACET-683 PO; +DIVA250T67 PO; +METH-1164 PO; +OLAN5TAB PO; +SUMA50TA2 PO; +TRAZ1TAB14 PO; -ZOLP10TA2
[2021-04-07 03:19] VITALS: BP 125/74
== END | disposition left against medical advice (07) ==
LOC: M ED 03:15
DX: Z53.21 Procedure and treatment not carried out due to patient leaving prior to being seen by health care provider (principal)

== ENCOUNTER 2021-04-12 20:31 | Emergency (ER) | payer OTHER, MEDICAID ==
[~2021-04-12] VITALS: Ht 170.2 cm; Wt 82.7 kg
[~2021-04-12 20:31] MED LIST changes: -ACET-683 PO; -DIVA250T67 PO; -METH-1164 PO; -OLAN5TAB PO; -SUMA50TA2 PO; -TRAZ1TAB14 PO
[2021-04-12 21:05] VITALS: BP 129/80
[2021-04-12] MEDS ORDERED: ALPRAZolam 0.25 MG TAB PO ONE (21:10)
[2021-04-12] MEDS ORDERED: METH-1164 PO (23:04)
== END 2021-04-12 23:26 | disposition home or self-care (01) ==
LOC: M ED 20:31
DX: F43.0 Acute stress reaction (principal); M62.830 Muscle spasm of back; F31.9 Bipolar disorder, unspecified; I10 Essential (primary) hypertension; F43.10 Post-traumatic stress disorder, unspecified; J45.909 Unspecified asthma, uncomplicated; M79.7 Fibromyalgia; Z79.899 Other long term (current) drug therapy; Z88.1 Allergy status to other antibiotic agents; Z88.2 Allergy status to sulfonamides; Z88.8 Allergy status to other drugs, medicaments and biological substances

== ENCOUNTER → 2021-04-12 | Outpatient (CLI) | payer OTHER, MEDICAID, MEDICARE ==
--- NOTE | 2021-04-17 00:02 | ECWPNPC ---
PATIENT NAME: DESIRAE NAVARRO : 1980 GENDER: FEMALE VISIT DATE: 04/12/2021 DISCHARGE DATE: 04/12/21929 VISIT LOCKED DATE TIME: PHYSICIAN: SOFI COOMBS RESOURCE: SOFI COOMBS REASON FOR APPOINTMENT 1. CHRONIC PAIN SYNDROME HISTORY OF PRESENT ILLNESS GENERAL: - -. FALL RISK SCREENING: SCREENING THREE FALLS REPORTED IN THE LAST YEAR WITHOUT INJURY. . PAIN SCREENING: PATIENT HAS A COMPLAINT OF ACUTE OR CHRONIC PAIN :YES LOCATION OF PAIN:OTHER: WHOLE BODY INTENSITY OF PAIN (SCALE OF 1 TO 10):10 WHAT DOES YOUR PAIN FEEL LIKE:CONTINOUS, SHARP, STABBING, THROBBING, SHOOTING DURATION:CONTINOUS, AWAKENS FROM SLEEP PAIN IS INCREASED BY:ACTIVITIES, PROLONGED STANDING PAIN IS DECREASED BY:USE OF PAIN MEDICATIONS, SITTING HEAT NURSING NOTE: - -. PAIN CENTER INTAKE QUESTIONS: DO YOU HAVE A HISTORY OF MRSA? :NO DO YOU TAKE A BLOOD THINNERS? :NO DO YOU HAVE ANY BLEEDING DISORDERS? :NO ANY NEW NUMBNESS OR WEAKNESS IN YOUR LEGS OR ARMS? :NO ANY PACEMAKER,DEFIBRILLATOR, OR DORSAL COLUMN STIMULATOR? :NO DO YOU HAVE ANY RASHES OR OPEN SORES? :NO ARE YOU ALLERGIC TO IV DYE? :NO ARE YOU DIABETIC? :NO ANY NEW PROBLEMS WITH YOUR MEDICATIONS? :NO HAVE YOU RECEIVED A VACCINE IN THE PAST 30 DAYS? :NO SECOND COVID VACCINATION ESTIMATED BY PATIENT AROUND JANUARY 2021. DO YOU PLAN TO RECEIVE A VACCINE IN THE NEXT 21 DAYS? :NO DO YOU NEED ANY PRESCRIPTION? :NO DO YOU TAKE ANY IMMUNOSUPPRESSIVE MEDICATIONS? :YES LEVOTHYROXINE IS THERE A CHANCE YOU COULD BE ? :NO ARE YOU BREAST FEEDING? :NO CURRENT MEDICATIONS TAKING ALBUTEROL SULFATE 108 (90 BASE) MCG/ACT AEROSOL POWDER BREATH ACTIVATED 1 PUFF NEEDED INHALATION EVERY 4 HRS TAKING ALPRAZOLAM 0.5 MG TABLET 1 TABLET ORALLY TWICE A DAY TAKING CYCLOBENZAPRINE HCL 5 MG TABLET 1 TABLET AT BEDTIME NEEDED ORALLY ONCE A DAY TAKING MULTIVITAMIN - TABLET 1 TABLET ORALLY ONCE A DAY TAKING DELSYM COUGH CHILDRENS 30 MG/5ML SUSPENSION EXTENDED RELEASE 10 ML NEEDED ORALLY EVERY 12 HRS TAKING DIVALPROEX SODIUM 125 MG TABLET DELAYED RELEASE 1 TABLET ORALLY TWICE A DAY TAKING HYDROXYCHLOROQUINE 200 MG , NOTES: IMMUNOSUPPRESSANT TAKING LEVOTHYROXINE SODIUM 25 MCG TABLET 1 TABLET IN THE MORNING ON AN EMPTY STOMACH ORALLY ONCE A DAY TAKING METHOTREXATE 2.5 MG TABLET 6 TABS ORALLY ONCE A WEEK TAKING METOPROLOL TARTRATE 50 MG TABLET 1 TABLET WITH FOOD ORALLY TWICE A DAY TAKING METRONIDAZOLE 500 MG TABLET 1 TABLET ORALLY THREE TIMES A DAY TAKING MONTELUKAST SODIUM 10 MG TABLET 1 TABLET ORALLY ONCE A DAY TAKING OLANZAPINE 10 MG TABLET 1 TABLET ORALLY ONCE A DAY TAKING TRAZODONE HCL 150 MG TABLET 1 TABLET AND A HALF AT BEDTIME ORALLY ONCE A DAY TAKING TRELEGY ELLIPTA 100-62.5-25 MCG/INH AEROSOL POWDER BREATH ACTIVATED 1 PUFF INHALATION ONCE A DAY TAKING ZOLPIDEM TARTRATE 10 MG TABLET 1 TABLET AT BEDTIME NEEDED ORALLY ONCE A DAY TAKING DEPAKOTE 250 MG TABLET DELAYED RELEASE 1 TABLET ORALLY ONCE DAILY TAKING AMBIEN 10 MG TABLET 1 TABLET AT BEDTIME NEEDED ORALLY ONCE A DAY NOT-TAKING BACLOFEN 10 MG/20ML SOLUTION DIRECTED INTRATHECAL UNKNOWN MACROBID 100 MG CAPSULE 1 CAPSULE WITH FOOD ORALLY EVERY 12 HRS UNKNOWN PILOCARPINE HCL 5 MG TABLET 1 TABLET ORALLY THREE TIMES A DAY UNKNOWN SINGULAIR 10 MG TABLET 1 TABLET IN THE EVENING ORALLY BEFORE BEDTIME UNKNOWN FOLIC ACID 1 MG TABLET 2 TABLET ORALLY ONCE A DAY UNKNOWN METHOTREXATE 2.5 MG TABLET 3 TABLET ORALLY WEEKLY- ON THURSDAY UNKNOWN GABAPENTIN 400 MG CAPSULE 1 CAPSULE ORALLY 3 TIMES A DAY UNKNOWN CYMBALTA 60 MG CAPSULE DELAYED RELEASE PARTICLES 1 CAPSULE ORALLY BEFORE BEDTIME UNKNOWN PANTOPRAZOLE SODIUM 40 MG TABLET DELAYED RELEASE 2 TABLET ORALLY ONCE A DAY UNKNOWN SYMBICORT UNKNOWN TRAZODONE HCL 50 MG TABLET 1 AND 0.5 TABLET AT BEDTIME NEEDED ORALLY ONCE A DAY UNKNOWN ACETAMINOPHEN 500 MG CAPSULE 1 CAPSULE NEEDED ORALLY EVERY 6 HRS UNKNOWN PERCOCET 5-325 MG TABLET 1 TABLET NEEDED ORALLY EVERY 6 HRS UNKNOWN DIPHENHYDRAMINE HCL 50 MG CAPSULE 2 TABLETS NEEDED ORALLY EVENING UNKNOWN NIFEDIPINE ER 30 MG TABLET EXTENDED RELEASE 24 HOUR 1 TABLET ON AN EMPTY STOMACH ORALLY ONCE A DAY UNKNOWN TOPIRAMATE 100 MG TABLET 1.5TABLET ORALLY ONCE A DAY, NOTES: 150MG UNKNOWN SPIRIVA HANDIHALER UNKNOWN PROAIR HFA UNKNOWN POLYETHYLENE GLYCOL UNKNOWN KEFLEX 500 MG CAPSULE 1 CAPSULE ORALLY DIRECTED- 1 HOUR PRIOR TO CYSTOSCOPY UNKNOWN AMBIEN CR 12.5 MG TABLET EXTENDED RELEASE 1 TABLET AT BEDTIME NEEDED ORALLY HS UNKNOWN LEVOCETIRIZINE DIHYDROCHLORIDE 5 MG TABLET 1 TABLET IN THE EVENING ORALLY BEFORE BEDTIME UNKNOWN ZANTAC 300 MG TABLET 1 TABLET AT BEDTIME ORALLY ONCE A DAY UNKNOWN VITAMIN B-2 100 MG TABLET 1 TABLET WITH A MEAL ORALLY ONCE A DAY UNKNOWN VITAMIN B-12 500 MCG TABLET 1 TAB ORALLY ONCE A DAY UNKNOWN MULTI-DAY TABLET 1 TABLET ORALLY TWICE DAILY UNKNOWN IRON 325 (65 FE) MG TABLET 2 TABLET ORALLY ONCE A DAY UNKNOWN NORTRIPTYLINE HCL 20 MG CAPSULE 2 CAPSULE ORALLY BEFORE BEDTIME UNKNOWN COMPAZINE UNKNOWN VITAMIN B-1 UNKNOWN XOPENEX HFA UNKNOWN MAGNESIUM 400 MG CAPSULE 1 TAB ORALLY ONCE DAILY UNKNOWN ONDANSETRON 8 MG TABLET DISPERSIBLE 1 APPLICATION ORALLY FOUR TIMES DAILY NEEDED, NOTES: LAST TOOK LAST NIGHT UNKNOWN CARAFATE 1 GM/10ML SUSPENSION 10 ML ORALLY FOUR TIMES DAILY UNKNOWN FENTANYL 75 MCG/HR PATCH 72 HOUR 1 PATCH TO SKIN TRANSDERMAL Q3DAYS, NOTES: CHANGED LAST NIGHT UNKNOWN ROBAXIN-750 750 MG TABLET 2 TABLET ORALLY ONCE DAILY UNKNOWN DULOXETINE HCL 60 MG CAPSULE DELAYED RELEASE PARTICLES 1 CAPSULE ORALLY ONCE A DAY UNKNOWN MONTELUKAST SODIUM 10 MG TABLET 1 TABLET ORALLY ONCE A DAY UNKNOWN OLANZAPINE 10 MG TABLET 1 TABLET ORALLY ONCE A DAY UNKNOWN ATIVAN 0.5 MG TABLET 1 TABLET NEEDED ORALLY TID UNKNOWN SEROQUEL XR 300 MG TABLET EXTENDED RELEASE 24 HOUR 2 TABLET IN THE EVENING ORALLY BEFORE BEDTIME UNKNOWN DEXAMETHASONE 4 MG TABLET 1 TABLET ORALLY THREE TIMES A DAY UNKNOWN HYSINGLA ER 60 MG TABLET ER 24 HOUR ABUSE-DETERRENT 1 TABLET ORALLY BEFORE BEDTIME UNKNOWN IMITREX 6 MG/0.5ML SOLUTION 0.5 ML NEEDED SUBCUTANEOUS TWICE A DAY UNKNOWN PHENERGAN 12.5 MG TABLET 1 TABLET NEEDED ORALLY EVERY 6 HRS UNKNOWN SERTRALINE HCL 100 MG TABLET 1 TABLET ORALLY BEFORE BEDTIME MEDICATION LIST REVIEWED AND RECONCILED WITH THE PATIENT PAST MEDICAL HISTORY MIGRAINE DEPRESSION ANXIETY FIBROMYALGIA LUPUS ASTHMA OBESITY SJOGRENS SYNDROME DR HUITRON FOR RHEUMATOLOGY DR WALL DID GASTRIC BYPASS DR [facility] #[phone] FAX#[phone] RIGHT HIP INFECTION- MRSA BULIMIA NERVOSA DRUG SEEKING BEHAVIOR OROPHARYNGEAL DYSPHAGIA RHEUMATOID ARTHRITIS GASTRIC FISTULA STEATOSIS OF LIVER COPD HYPERTENSION BIPOLAR DISORDER SCHIZOPHRENIA BORDERLINE PERSONALITY DISORDER CONDUCT DISORDER HYPOTHYROIDISN WERNICKE'S DISEASE DRUG OVERDOSE- 12/17/2020 ALLERGIES LATEX (FOR ALLERGY USE ONLY): HIVES - ALLERGY BACTRIM: HIVES - ALLERGY ERYTHROMYCIN: HIVES - ALLERGY LEVAQUIN: HIVES - ALLERGY CEFTIN: HIVES - ALLERGY OMEPRAZOLE: HIVES - ALLERGY AUGMENTIN: HIVES - ALLERGY LISINOPRIL: HIVES - ALLERGY LEVAPACK: HIVES - ALLERGY LAMOTRIGINE: EYES SWELL SHUT - ALLERGY LUNESTA: EYES SWELL SHUT - ALLERGY WELLBUTRIN XL: NAUSEA - SIDE EFFECTS ABILIFY: LACK OF THERAPEUTIC EFFECT ZYTAZE: LACK OF THERAPEUTIC EFFECT SURGICAL HISTORY GASTRIC BYPASS 2012 TONSILLECTOMY 9YO ADENOIDECTOMY 9YO HYSTERECTOMY 11/19/2009 REVISION GASTRIC BYPASS CYSTOSCOPY /05/23/2019 CHOLECYSTECTOMY 11/16/2013 SJOGRENS DISORDER METABOLIC ENCEPHALOPATHY TRIGEMINAL NEURALGIA FAMILY HISTORY FATHER: ALIVE, GRAVES DISEASE, THYROID REMOVED MOTHER: , LUNG CANCER, DIAGNOSED WITH OTHER MALIGNANT NEOPLASM OF UNSPECIFIED SITE SIBLINGS: ALIVE SON(S): ALIVE, MIGRANES 2 BROTHER(S) - HEALTHY. 1 SON(S) - HEALTHY. FATHER HAS PROSTATE CANCER, JUST HAD PROSTATE OUT. SOCIAL HISTORY GENERAL: TOBACCO USE ARE YOU A:CURRENT SMOKER ARE YOU INTERESTED IN QUITTING?NOT READY TO QUIT HOW MANY CIGARETTES A DAY DO YOU SMOKE?11-20 HOW SOON AFTER YOU WAKE UP DO YOU SMOKE YOUR FIRST CIGARETTE?WITHIN 5 MIN HOW OFTEN DO YOU SMOKE CIGARETTES?EVERY DAY PATIENT COUNSELED ON THE DANGERS OF TOBACCO USE AND URGED TO QUIT:04/30/2016 LATEX QUESTIONNAIRE LATEX ALLERGY : HAVE YOU EVER DEVELOPED ANY TYPE OF REACTION AFTER HANDLING LATEX PRODUCTS SUCH RUBBER GLOVES, CONDOMS, DIAPHRAGMS, BALLOONS, SOCKS, OR UNDERWEAR?YES - PLEASE INDICATE :RUBBER GLOVES LATEX ALLERGY : HAVE YOU EVER DEVELOPED ANY TYPE OF REACTION DURING OR AFTER DENTAL APPOINTMENT, VAGINAL/RECTAL EXAMINATION, SURGICAL PROCEDURE, OR ANY OTHER EXPOSURE?YES LATEX RISK : DO YOU HAVE A PREVIOUS PERSONAL HISTORY OF MORE THAN NINE SURGERIES, SPINA BIFIDA, OR REPEATED CATHERIZATIONS? NO LATEX RISK : ARE YOU FREQUENTLY EXPOSED TO LATEX PRODUCTS IN YOUR OCCUPATION?NO DATE ASKED : 04/12/2021 ALCOHOL USE: NO. ALCOHOL SCREENING POINTS: 0, INTERPRETATION: NEGATIVE. RECREATIONAL DRUG USE DRUG USE?NO CAFFEINE: YES CAFFEINE USE? MOSTLY SODA DURING DAY, HIV / HEP-C SCREENING HIV TEST OFFERED TO PATIENT:YES DATE OFFERED:09/19/2017 TEST ACCEPTED:NO HEP-C TEST OFFERED TO PATIENT:NO REASON:PATIENT DECLINED JEHOVAH'S WITNESS JEHOVAH'S WITNESS NO FAITH BELIEFS THAT WOULD IMPACT HEALTH CARE. LANGUAGE LANGUAGES SPOKEN:BANGLADESHI EDUCATION LEVEL OF EDUCATION:NOT FINISHED HIGH SCHOOL LEARNING BARRIERS / SPECIAL NEEDS BARRIERS TO LEARNING?YES COMMENTS READING COMPREHENSION HEARING IMPAIRED?NO VISION IMPAIRED?YES :CORRECTIVE LENSES COGNITIVELY IMPAIRED?NO READINESS TO LEARN?YES LEARNING PREFERENCES?NO LEARNING CAPABILITIES PRESENT?YES EMOTIONAL BARRIERS?NO PTSD, DEPRESSION AND ANXIETY SPECIAL DEVICES?YES :CANE, WALKER WALKER, CANE BUTCHER'S ASSISTANT NEEDED?NO DOMESTIC VIOLENCE DO YOU FEEL SAFE IN YOUR ENVIRONMENT?YES OCCUPATION: DISABLED. DIET: REGULAR. EXERCISE: WALKS. MARITAL STATUS: SINGLE. HOSPITALIZATION/MAJOR DIAGNOSTIC PROCEDURE RELATED TO SURGERY ADMITTED DUE TO MALNUTRITION/ANOREXIA 01/2016 [facility] 01/2021 VITAL SIGNS WT 177 LBS, HT 66 1/, BMI 28.35 INDEX, BP 100/58 MM HG, HR 93 /MIN, RR 18 /MIN, TEMP 97.2 F, OXYGEN SAT % 100%, SAFE IN ENV? (Y/N) YES, REVIEWED BY: LEONARD WHITEHEAD MA. TREATMENT OTHERS NOTES: THIS TRACK LAMINATING MACHINE TENDER IN TO ASSESS PATIENT FOR NEW PATIENT CONSULT ACCOMPANIED BY MICAH PAYAN. THIS TRACK LAMINATING MACHINE TENDER REVIEWED PREVIOUS MEDS WITH PATIENT TO INCLUDE MUSCLE RELAXERS. PATIENT STATED PREVIOUS MUSLCE RELAXER WAS BENEFICIAL AND THEN STATED SHE NEEDED SOMETHING FOR PAIN. THIS TRACK LAMINATING MACHINE TENDER ATTMEPTED TO EXPLAIN THAT THE MUSLCE RELAXER WOULD POTENTIALLY HELP HER PAIN AND SHE THEN ASKED FOR A NARCOTIC. THIS TRACK LAMINATING MACHINE TENDER EXPLAINED TO PATIENT THAT THEY DID NOT FEEL COMFORTABLE PRESCRIBING HER NARCOTICS GIVEN HER RECENT DRUG OVERDOSE. PATIENT THAN BECAME ANGRY WITH THIS TRACK LAMINATING MACHINE TENDER STATING IF HE DIDNT'T PRESCRIBE NARCOTICS THEN SHE WANTED ANOTHER PROIVIDER. THIS TRACK LAMINATING MACHINE TENDER THEN INFORMED PATIENT THAT SHE WAS FREE TO DO SO AND THE VISIT ENDED. DISPOSITION & COMMUNICATION ELECTRONICALLY SIGNED BY RADHA BOWLES ON 04/16/2021 AT 08:35 AM EDT DISCLAIMER : THIS IS A VISIT SUMMARY EXTRACTED FROM THE [employer] CHART. IT IS NOT A COPY OF THE [email or web address] PROGRESS NOTE. KURT
== END ==
LOC: M PAIN 08:30
PROVIDERS: ATTEND Family Medicine
DX: G89.29 Other chronic pain (principal); G43.909 Migraine, unspecified, not intractable, without status migrainosus; M79.7 Fibromyalgia; J44.9 Chronic obstructive pulmonary disease, unspecified; E03.9 Hypothyroidism, unspecified; F17.210 Nicotine dependence, cigarettes, uncomplicated; Z86.59 Personal history of other mental and behavioral disorders; Z98.84 Bariatric surgery status; Z88.1 Allergy status to other antibiotic agents; Z88.8 Allergy status to other drugs, medicaments and biological substances; Z91.040 Latex allergy status

== ENCOUNTER 2021-04-14 22:14 | Inpatient (IN) | payer OTHER, MEDICAID ==
[~2021-04-14] VITALS: Ht 170.2 cm; Wt 79.1 kg
[~2021-04-14 22:14] MED LIST changes: +METH-1164 PO
[2021-04-14 22:44] LABS: ABG BASE EXCESS -8.8 (-2.0-2.0); ABG O2 SATURATION 97.9 % (95.0-99.0); ABG PARTIAL PRESSURE CO2 31.5 mmHg (35.0-45.0); ABG PARTIAL PRESSURE O2 112.3 mmHg (75.0-100.0); ABG STANDARD HCO3 17.4 MEQ/L (22.0-26.0); ABG pH (ARTERIAL) 7.325 UNITS (7.350-7.450)
[2021-04-14 22:54] LABS: BASO # 0.1 10^3/uL (0.0-0.2); EOS % 0.2 % (0.0-3.0); MEAN CORPUSCULAR HEMOGLOBIN 32.7 pg (27.0-33.0); MEAN CORPUSCULAR HGB CONC 31.7 g/dl (32.0-36.5); MEAN CORPUSCULAR VOLUME 103.3 fl (80.0-96.0); MONO # 0.6 10^3/uL (0.0-0.8); MONO % 8.7 % (2.0-8.0); NEUTROPHILS # 2.6 10^3/uL (1.5-8.5); NEUTROPHILS % 41.8 % (36.0-66.0); PLATELET COUNT, AUTOMATED 268 10^3/uL (150-450); RED BLOOD COUNT 3.97 10^6/uL (4.00-5.40); WHITE BLOOD COUNT 6.3 10^3/uL (4.0-10.0)
[2021-04-14 23:26] LABS: ACETAMINOPHEN LEVEL 85.4 UG/ML (10.0-30.0); ALBUMIN 2.8 GM/DL (3.2-5.2); ALT/SGPT 10 U/L (12-78); BILIRUBIN,DIRECT 0.1 MG/DL (0.0-0.2); BILIRUBIN,TOTAL 0.4 MG/DL (0.2-1.0); BLOOD UREA NITROGEN 9 MG/DL (7-18); CALCIUM LEVEL 8.5 MG/DL (8.5-10.1); CARBON DIOXIDE LEVEL 21 MEQ/L (21-32); CHLORIDE LEVEL 107 MEQ/L (98-107); CPK CREATINE PHOSPHOKINASE 65 U/L (26-192); CREATININE FOR GFR 1.06 MG/DL (0.55-1.30); ETHYL ALCOHOL (ETHANOL) < 0.003 % (0.000-0.010); GLOMERULAR FILTRATION RATE > 60.0 (>58); GLUCOSE, FASTING 95 MG/DL (70-100); POTASSIUM SERUM 4.3 MEQ/L (3.5-5.1); SALICYLATE LEVEL 5.5 MG/DL (5.0-30.0); SODIUM LEVEL 137 MEQ/L (136-145); THYROID STIMULATING HORMONE 0.515 uIU/ML (0.358-3.740); TOTAL PROTEIN 5.6 GM/DL (6.4-8.2)
[2021-04-14] MEDS ORDERED: HALOPERIDOL 5MG/ML VIAL (J1630 PER 1) IM ONE (23:30)
[2021-04-14] MEDS ORDERED: LORazepam 2 MG/ML VIAL IM ONE (23:30)
[2021-04-15 01:19] LABS: ACETAMINOPHEN LEVEL 46.4 UG/ML (10.0-30.0)
[2021-04-15 03:34] LABS: AMPHETAMINES LEVEL URINE NEGATIVE (NEGATIVE); BARBITURATES URINE NEGATIVE (NEGATIVE); BENZODIAZEPINES URINE POSITIVE (NEGATIVE); CANNABINOIDS URINE NEGATIVE (NEGATIVE); COCAINE METABOLITE URINE NEGATIVE (NEGATIVE); METHADONE URINE NEGATIVE (NEGATIVE); OPIATES URINE NEGATIVE (NEGATIVE); PHENCYCLIDINE URINE NEGATIVE (NEGATIVE)
[2021-04-15] MEDS ORDERED: DIVA250T67 PO (06:32)
[2021-04-15] MEDS ORDERED: SUMA50TA2 PO (06:32)
[2021-04-15] MEDS ORDERED: METH-1164 PO (06:32)
[2021-04-15] MEDS ORDERED: TRAZ1TAB14 PO (06:32)
[2021-04-15] MEDS ORDERED: OLAN5TAB PO (06:32)
[2021-04-15] MEDS ORDERED: ACET-683 PO (06:32)
[2021-04-15 06:44] LABS: SALICYLATE LEVEL 4.8 MG/DL (5.0-30.0)
--- NOTE | 2021-04-15 09:34 | ECGEPIP ---
[facility] - ED Test Date: 2021-04-14 Pat Name: DESIRAE NAVARRO Department: Room: - Gender: Female Burnisher And Bumper: : 1980 Requested By: ALVIN Garcia Order Number: [id number] Reading MD: Ayse Herrera Measurements Intervals [place] Rate: 80 P: 57 [place]: 160 QRS: 62 QRSD: 82 T: 117 QT: 308 QTc: 355 Interpretive Statements Normal sinus rhythm Nonspecific T wave abnormality similar 03/18/21 Electronically Signed on 04-15-2021 9:34:34 EDT by Ayse Herrera
[2021-04-15 16:04] LABS: RSV AMPLIFICATION NEGATIVE (NEGATIVE)
[2021-04-15] MEDS ORDERED: DULoxetine 30 MG CAP (CYMBALTA) PO ONE (21:00)
[2021-04-15] MEDS ORDERED: DIVALPROEX 250 MG TAB PO ONE (21:00)
[2021-04-15] MEDS ORDERED: METOPROLOL TART 50 MG TAB PO ONE (21:00)
[2021-04-15] MEDS ORDERED: zolPIDEM TARTRATE 5 MG TAB PO ONE (21:00)
[2021-04-15] MEDS ORDERED: methocarbamoL 500 MG TAB PO ONE (21:00)
[2021-04-15] MEDS ORDERED: GABAPENTIN 400MG CAP PO ONE (21:00)
[2021-04-15] MEDS ORDERED: POTASSIUM CHLORIDE 10 MEQ SR TABLET PO ONE (21:00)
[2021-04-15] MEDS ORDERED: OLANZapine 5 MG TAB PO ONE (21:00)
[2021-04-15] MEDS ORDERED: traZODone 25MG PER 1/2 TABLET PO ONE (21:00)
[2021-04-15] MEDS ORDERED: traZODone 100 MG TAB PO ONE (21:00)
[2021-04-15] MEDS ORDERED: MONTELUKAST 10 MG TAB PO SCH (21:00)
[2021-04-15] MEDS: HYDROXYCHLOROQUINE 200 MG TAB PO SCH (21:15)
[2021-04-16] MEDS: HYDROXYCHLOROQUINE 200 MG TAB PO SCH ×2 (11:05→20:56)
[2021-04-16] MEDS ORDERED: ALBUTEROL 90 MCG/ACT 8GM HFA INHALER INH PRN (16:35)
[2021-04-16] MEDS ORDERED: SUMAtriptan SUCCINATE 25 MG TAB PO PRN (16:35)
[2021-04-16] MEDS ORDERED: ACETAMINOPHEN 500 MG TAB PO PRN (16:35)
[2021-04-16] MEDS ORDERED: MOM 30ML SUSPENSION UDC PO PRN (17:20)
[2021-04-16] MEDS ORDERED: IBUPROFEN 400MG TAB PO PRN (17:20)
[2021-04-16] MEDS ORDERED: MAALOX 30 ML SUSP *UDC PO PRN (17:20)
[2021-04-16 18:10] VITALS: BP 99/74
[2021-04-16 20:56] VITALS: BP 112/78
[2021-04-16] MEDS: OLANZapine 5 MG TAB PO SCH (20:56)
[2021-04-16] MEDS: GABAPENTIN 400MG CAP PO SCH (20:56)
[2021-04-16] MEDS: POTASSIUM CHLORIDE 10 MEQ SR TABLET PO SCH (20:56)
[2021-04-16] MEDS: methocarbamoL 500 MG TAB PO SCH (20:56)
[2021-04-16] MEDS ORDERED: METOPROLOL TART 50 MG TAB PO SCH (21:00)
[2021-04-16] MEDS ORDERED: MONTELUKAST 10 MG TAB PO SCH (21:00)
[2021-04-16] MEDS ORDERED: traZODone 100 MG TAB PO SCH (21:00)
[2021-04-16] MEDS ORDERED: traZODone 25MG PER 1/2 TABLET PO SCH (21:00)
[2021-04-16] MEDS ORDERED: DIVALPROEX 250 MG TAB PO SCH (21:00)
[2021-04-17 06:00] VITALS: BP 105/58
[2021-04-17] MEDS ORDERED: LEVOTHYROXINE 25MCG TABLET (0.025MG) PO SCH (06:00)
[2021-04-17] MEDS ORDERED: MAGNESIUM OXIDE 400MG TAB (MAG-OX) PO SCH (09:00)
[2021-04-17] MEDS ORDERED: LIDOCAINE 5% (LIDODERM) PATCH TD SCH (09:00)
[2021-04-17] MEDS ORDERED: NICOTINE 21MG/24HR 1 EA TRANSDERMAL TD SCH (09:00)
[2021-04-17] MEDS ORDERED: FOLIC ACID 1 MG TAB PO SCH (09:00)
[2021-04-17] MEDS: methocarbamoL 500 MG TAB PO SCH (09:07)
[2021-04-17] MEDS: POTASSIUM CHLORIDE 10 MEQ SR TABLET PO SCH (09:07)
[2021-04-17] MEDS: OLANZapine 5 MG TAB PO SCH (09:07)
[2021-04-17] MEDS: GABAPENTIN 400MG CAP PO SCH (09:07)
[2021-04-17] MEDS: HYDROXYCHLOROQUINE 200 MG TAB PO SCH (09:09)
--- NOTE | 2021-04-17 11:26 | MHHPEPDOC ---
General Date Of Admission: Apr 16, 2021 Legal Status: 9.39 Chief Complaint I ran out of my Xanax and I took about 5 Tylenol and an Ambien to get some sleep ". History of Present Illness HISTORY OF THE PRESENT ILLNESS: Patient is a 40 -year-old , female, who [has a long history of depression and polysubstance abuse, was brought to emergency room on Thursday night after she took an overdose of Tylenol and was kept at the emergency room for 2 days before being admitted on 939 status. She is now claiming that she didn't mean to kill herself and oriented to the extra periods because she ran out of her prescribed Xanax and wanted something to help sleep. She denies any serious depressed mood. Denies any suicidal intent and denies any psychotic symptoms, but also denies that she has any new stressors. She has been attending her outpatient treatment. Has an appointment for her next visit and doesn't feel she needs any inpatient stay. She denies any hallucination or paranoia, has own housing and feels safe to return home.]. Psychiatric Review of Systems Depression (2 or more weeks): depressed mood, insomnia/hypersomnia Anabel (4 or more days of): denies Psychosis: denies PTSD: denies Anxiety: situational anxiety Past Psychiatric History Previous Psychiatric Diagnosis: [Major depression and polysubstance abuse]. Previous Psychiatric Admissions: [Multiple admissions in the past. Last discharge in February]. Suicide Attempts: [Denies any serious attempts]. Psychiatric Follow-up: [Hasn't been attending outpatient clinic]. Psychiatric medications: [Hasn't been complying with the medication. According to her]. Past Medical History Medical Problems Multiple chronic medical condition including rheumatoid arthritis Head Injury: No Seizures: No Hospitalizations: Yes Surgeries: Yes Family Medical/Psychiatric HX Medical Problems Noncontributory Psychiatric Disorders: No Addiction: No Suicide Attemps/Completions: No Addiction History denies, other (patient has a history of polysubstance abuse) Social History Childhood: Unremarkable . Abuse/Trauma: Denies any history of abuse. Current Living Situation: [Lives alone in an apartment]. Education: [Spatial classes]. Employment: [On SSI]. Social Support: [Minimal]. Legal: [Denies any history of violence. No legal history]. Marital: Was , but 2013]. Mental Status Examination General Appearance: appears stated age Build: overweight Demeanor: average Eye Contact: average Activity: average Behavior: cooperative Speech: slow, low in volume Mood: anxious Affect: constricted, appropriate, congruent Thought Process: logical/linear Thought Content (Delusions): none reported Thought Content (Other): none reported Thought Content (Aggressive): none reported Perception (Hallucinations): none reported Perception (Other): none reported Cognition (Impairment of): none reported Cognition(Intelligence Est.): borderline Oriented: Awake, Alert, Oriented times three Insight: fair Judgment: Fair Psychosis: Denies Diagnoses Major depression, recurrent. History of polysubstance abuse A-FIB/CHADSVASC A-FIB History Current/History of A-Fib/PAF?: No Current PO Anticoag Therapy: No Age/Risk Factor Scoring CHADSVASC: CHADSVASC Response (Comments) Value Gender Risk Factor Female 1 Hx of CHF No 0 Hx of HTN No 0 Hx of Stroke/TIA/or VTE No 0 Hx of Diabetes No 0 Hx of Vascular Disease No 0 Total 1 Treatment Treatment ordered: NONE Assessment The patient strongly denies any suicidal thoughts or intent. Her overdose was minor and appears not a serious suicidal attempt. It is likely that she overused the Xanax and she is asking for another prescription but was told that she cannot have a controlled substance prescription before the due date. Patient d oesn't appear seriously depressed or suicidal and appears at her baseline mental status and will be discharged with the recommendation to follow up with her outpatient Initial Treatment Plan 1. Patient was admitted on a 9.39 status. 2. Complete history was obtained. 3. With patients permission, family will be contacted and database will be expanded. 4. Patients medication regimen will be reviewed and changed accordingly. 5. Patient will be provided with protected environment. 6. Patient will be treated with individual, group, and milieu therapies. 7. Patient will receive supportive psych-education. 8. Discharge planning will commence immediately. 9. Outpatient follow-up treatment will be strongly recommended. 10. The initial treatment plan will focus initially on: * Depression. * Risk for suicide. ESTIMATED LENGTH OF STAY: - DAYS. Patient is discharged today TIME SPENT COUNSELING AND COORDINATING INITIAL CARE: 40 minutes. Tobacco Cessation Screen If Patient is a Smoker Patient doesn't want smoke cessation treatment and claims that she doesn't smoke very much Complete/Results docum. Vital Signs Vital Signs Date Time Temp Pulse Resp B/P (MAP) Pulse Ox O2 Delivery O2 Flow Rate FiO2 04/17/21 06:00 98.6 61 18 105/58 (74) 95 Room Air Medications Scheduled Divalproex Sodium (Divalproex Sodium) 250 Mg Tablet.dr, 250 MG PO QHS, (Reported) Duloxetine Hcl (Cymbalta) 60 Mg Capsule.dr, 120 MG PO QPM, (Reported) Fluticasone/Umeclidin/Vilanter (Trelegy Ellipta 100-62.5-25) 1 Each Blst.w.dev, 1 PUFF PO DAILY, (Reported) Folic Acid (Folic Acid) 1 Mg Tablet, 1 MG PO DAILY, (Reported) Gabapentin (Gabapentin) 400 Mg Capsule, 400 MG PO TID, (Reported) Hydroxychloroquine Sulfate (Hydroxychloroquine Sulfate) 200 Mg Tablet, 200 MG PO BID, (Reported) Levothyroxine Sodium (Levothyroxine Sodium) 25 Mcg Tablet, 25 MCG PO DAILY, (Reported) Lidocaine (Lidoderm) 5% Adh..patch, 1 PATCH TD DAILY Apply to area of pain, Remove patch after 12 hours Magnesium Oxide (Magnesium Oxide) 400 Mg Tablet, 400 MG PO DAILY, (Reported) Methocarbamol (Methocarbamol) 500 Mg Tablet, 500 MG PO BID, (Reported) Methotrexate Sodium (Methotrexate) 2.5 Mg Tablet, 7.5 MG PO QWEEK, (Reported) MONDAYS Metoprolol Tartrate (Metoprolol Tartrate) 50 Mg Tablet, 50 MG PO QPM, (Reported) Montelukast Sodium (Montelukast Sodium) 10 Mg Tablet, 10 MG PO QPM, (Reported) Olanzapine (Olanzapine) 5 Mg Tablet, 5 MG PO BID, (Reported) Potassium Chloride (Potassium Chloride) 10 Meq Capsule.er, 10 MEQ PO BID, (Reported) Trazodone HCl (Trazodone HCl) 150 Mg Tablet, 225 MG PO QHS, (Reported) Zolpidem Tartrate (Zolpidem Tartrate) 10 Mg Tablet, 10 MG PO QHS, (Reported) Scheduled PRN Acetaminophen (Acetaminophen) 500 Mg Tablet, 500 MG PO Q6H PRN for PAIN, (Reported) Albuterol Sulfate (Ventolin Hfa) 18 Gm Hfa.aer.ad, 2 PUFF INH Q4H PRN for SHORTNESS OF BREATH, (Reported) Pilocarpine HCl (Salagen) 5 Mg Tablet, 5 MG PO TID PRN for XEROSTOMIA, (Reported) Sumatriptan Succinate (Sumatriptan Succinate) 50 Mg Tablet, 50 MG PO Q12H PRN for migrain, (Reported) Allergies Coded Allergies: Sulfa (Sulfonamide Antibiotics) (Verified Allergy, Intermediate, RASH AND HIVES, 02/15/21) buspirone (Verified Allergy, Intermediate, hives, 02/15/21) cephalexin (Verified Allergy, Intermediate, hives, 02/15/21) erythromycin base (Verified Allergy, Intermediate, hives/rash, 02/15/21) latex (Verified Allergy, Intermediate, hives, 02/15/21) levofloxacin (Verified Allergy, Intermediate, hives/rash, 02/15/21) lisinopril (Verified Allergy, Intermediate, hives/rash, 02/15/21) sulfamethoxazole (Verified Allergy, Intermediate, hives/rash, 02/15/21) eszopiclone (Verified Allergy, Mild, rash, 02/15/21) metoclopramide (Verified Allergy, Unknown, 02/15/21) omeprazole (Verified Allergy, Unknown, 02/15/21) bupropion (Verified Adverse Reaction, Mild, nausea, 02/15/21) trimethoprim (Verified Adverse Reaction, Mild, nausea/vomitting, 02/15/21) TIEN NJ M.D. Apr 17, 2021 11:26
--- NOTE | 2021-04-17 11:32 | MHDSPDOC ---
[facility] Discharge Summary Discharge Summary DATE OF ADMISSION: Apr 16, 2021 at 17:17 DATE OF DISCHARGE: 04/17/2021 DISCHARGE DIAGNOSES: 1. . Major depression, recurrent 2. ., Polysubstance abuse per history REASON FOR ADMISSION: Patient reportedly took 5 extra Tylenol and an Ambien tablets to get sleep. Patient claims that the she ran out of her prescribed Xanax and wanted to get some sleep and denies any serious suicidal intent CONSULTANTS INVOLVED: TREATMENT AND PROGRESS ON THE UNIT : The patient remained in good contact and control, but appears moderately anxious and preoccupied. She is been attending the outpatient clinic and has been complying with her medication. Denies any serious depressive symptoms and denies any hallucinations or paranoia, and minimizing her Xanax use.. She is denying any suicidal intent and is anxious to be discharged today. . HOSPITAL COURSE: . She was maintained on all home medications and she has no new physical complaints. In no acute physical distress and that her behavior is in good control. She has not shown any bizarre, agitated or suicidal behavior. DISCHARGE ASSESSMENT: . She appears to be at her baseline mental status and does not appear to be suicidal. MENTAL STATUS EXAMINATION ON DISCHARGE: Patient is a 40-year old female, who is , cooperative. Speech is fair . Language skills are fair. Thought processes including: , Relevant, coherent. Thought content: Denies any suicidal thoughts. Abstract reasoning, and computation: Fair Description of associations: , Organized. Description of abnormal or psychotic thoughts: Patient denies any hallucination or paranoia. Judgment: , Poor. Insight: Fair. Orientation to , oriented. Recent and remote memory: Fair. Attention span and concentration: Fair. Language: . Fund of knowledge: Below average. Mood: Mildly anxious but denies any serious depression . Affect: Blunted but appropriate. MEDICATIONS ON DISCHARGE: - for . No prescription is given. She is to continue her home medications - for . - for . PLAN/FOLLOWUP ARRANGEMENTS: As arranged. The amount of time spent in the coordination of care for this patient was approximately 30 minutes. ETOH/Disorder Med Rx ETOH/DRUG DISORDER RX: N/A Vital Signs/I&Os Vital Signs Date Time Temp Pulse Resp B/P (MAP) Pulse Ox O2 Delivery O2 Flow Rate FiO2 04/17/21 06:00 98.6 61 18 105/58 (74) 95 Room Air Medications Scheduled Divalproex Sodium (Divalproex Sodium) 250 Mg Tablet.dr, 250 MG PO QHS, (Reported) Duloxetine Hcl (Cymbalta) 60 Mg Capsule.dr, 120 MG PO QPM, (Reported) Fluticasone/Umeclidin/Vilanter (Trelegy Ellipta 100-62.5-25) 1 Each Blst.w.dev, 1 PUFF PO DAILY, (Reported) Folic Acid (Folic Acid) 1 Mg Tablet, 1 MG PO DAILY, (Reported) Gabapentin (Gabapentin) 400 Mg Capsule, 400 MG PO TID, (Reported) Hydroxychloroquine Sulfate (Hydroxychloroquine Sulfate) 200 Mg Tablet, 200 MG PO BID, (Reported) Levothyroxine Sodium (Levothyroxine Sodium) 25 Mcg Tablet, 25 MCG PO DAILY, (Reported) Lidocaine (Lidoderm) 5% Adh..patch, 1 PATCH TD DAILY for 5 Days, #5 Apply to area of pain, Remove patch after 12 hours Magnesium Oxide (Magnesium Oxide) 400 Mg Tablet, 400 MG PO DAILY, (Reported) Methocarbamol (Methocarbamol) 500 Mg Tablet, 500 MG PO BID, (Reported) Methotrexate Sodium (Methotrexate) 2.5 Mg Tablet, 7.5 MG PO QWEEK, (Reported) MONDAYS Metoprolol Tartrate (Metoprolol Tartrate) 50 Mg Tablet, 50 MG PO QPM, (Reported) Montelukast Sodium (Montelukast Sodium) 10 Mg Tablet, 10 MG PO QPM, (Reported) Olanzapine (Olanzapine) 5 Mg Tablet, 5 MG PO BID, (Reported) Potassium Chloride (Potassium Chloride) 10 Meq Capsule.er, 10 MEQ PO BID, (Reported) Trazodone HCl (Trazodone HCl) 150 Mg Tablet, 225 MG PO QHS, (Reported) Zolpidem Tartrate (Zolpidem Tartrate) 10 Mg Tablet, 10 MG PO QHS, (Reported) Scheduled PRN Acetaminophen (Acetaminophen) 500 Mg Tablet, 500 MG PO Q6H PRN for PAIN, (Reported) Albuterol Sulfate (Ventolin Hfa) 18 Gm Hfa.aer.ad, 2 PUFF INH Q4H PRN for SHORTNESS OF BREATH, (Reported) Pilocarpine HCl (Salagen) 5 Mg Tablet, 5 MG PO TID PRN for XEROSTOMIA, (Reported) Sumatriptan Succinate (Sumatriptan Succinate) 50 Mg Tablet, 50 MG PO Q12H PRN for migrain, (Reported) Allergies Coded Allergies: Sulfa (Sulfonamide Antibiotics) (Verified Allergy, Intermediate, RASH AND HIVES, 02/15/21) buspirone (Verified Allergy, Intermediate, hives, 02/15/21) cephalexin (Verified Allergy, Intermediate, hives, 02/15/21) erythromycin base (Verified Allergy, Intermediate, hives/rash, 02/15/21) latex (Verified Allergy, Intermediate, hives, 02/15/21) levofloxacin (Verified Allergy, Intermediate, hives/rash, 02/15/21) lisinopril (Verified Allergy, Intermediate, hives/rash, 02/15/21) sulfamethoxazole (Verified Allergy, Intermediate, hives/rash, 02/15/21) eszopiclone (Verified Allergy, Mild, rash, 02/15/21) metoclopramide (Verified Allergy, Unknown, 02/15/21) omeprazole (Verified Allergy, Unknown, 02/15/21) bupropion (Verified Adverse Reaction, Mild, nausea, 02/15/21) trimethoprim (Verified Adverse Reaction, Mild, nausea/vomitting, 02/15/21) TIEN NJ M.D. Apr 17, 2021 11:32
[2021-04-17] MEDS ORDERED: **NOTE PATIENT COMMENT** MISC XX SCH (21:00)
[2021-04-22] MEDS ORDERED: METHOTREXATE 2.5 MG TAB (J8610 PER 2.5MG) PO SCH (09:00)
== END 2021-04-17 12:48 | disposition home or self-care (01) | DRG 885 ==
LOC: M ED 22:14 → M ED INP 04-16 17:17 → M PSY 04-16 17:47
PROVIDERS: ADMIT Psychiatry & Neurology Psychiatry; ATTEND Psychiatry & Neurology Psychiatry
DX: F33.0 Major depressive disorder, recurrent, mild (principal); F19.11 Other psychoactive substance abuse, in remission; Z79.899 Other long term (current) drug therapy; Z88.1 Allergy status to other antibiotic agents; Z88.2 Allergy status to sulfonamides; Z88.8 Allergy status to other drugs, medicaments and biological substances; Z91.040 Latex allergy status; M06.9 Rheumatoid arthritis, unspecified; Z91.14 Patient's other noncompliance with medication regimen; Z20.822 Contact with and (suspected) exposure to COVID-19

== ENCOUNTER → 2021-04-26 | Outpatient (CLI) | payer OTHER, MEDICAID ==
[~2021-04-26] MED LIST changes: +ACET-683 PO; +DIVA250T67 PO; +OLAN5TAB PO; +SUMA50TA2 PO; +TRAZ1TAB14 PO
[2021-04-26 13:39] LABS: ALBUMIN 2.4 GM/DL (3.2-5.2); ALT/SGPT 12 U/L (12-78); BILIRUBIN,TOTAL 0.2 MG/DL (0.2-1.0); BLOOD UREA NITROGEN 9 MG/DL (7-18); CALCIUM LEVEL 8.1 MG/DL (8.5-10.1); CARBON DIOXIDE LEVEL 25 MEQ/L (21-32); CHLORIDE LEVEL 105 MEQ/L (98-107); GLOMERULAR FILTRATION RATE > 60.0 (>58); GLUCOSE, FASTING 86 MG/DL (70-100); POTASSIUM SERUM 4.9 MEQ/L (3.5-5.1); SODIUM LEVEL 136 MEQ/L (136-145); THYROID STIMULATING HORMONE 0.288 uIU/ML (0.358-3.740); TOTAL PROTEIN 4.7 GM/DL (6.4-8.2)
== END ==
LOC: M LAB 11:27
PROVIDERS: ATTEND Pediatrics
DX: T50.904D Poisoning by unspecified drugs, medicaments and biological substances, undetermined, subsequent encounter (principal); E03.9 Hypothyroidism, unspecified

== ENCOUNTER → 2021-04-26 | Outpatient (CLI) | payer OTHER, MEDICAID ==
[2021-04-26 12:27] LABS: BASO # 0.1 10^3/uL (0.0-0.2); BASO % 1.1 % (0.0-1.0); HEMATOCRIT 36.9 % (36.0-47.0); HEMOGLOBIN 11.9 g/dl (12.0-15.5); LYMPH # 2.4 10^3/uL (1.5-5.0); LYMPH % 28.5 % (24.0-44.0); MEAN CORPUSCULAR HEMOGLOBIN 33.3 pg (27.0-33.0); MEAN CORPUSCULAR HGB CONC 32.2 g/dl (32.0-36.5); MEAN CORPUSCULAR VOLUME 103.4 fl (80.0-96.0); MONO # 0.4 10^3/uL (0.0-0.8); MONO % 5.1 % (2.0-8.0); NEUTROPHILS # 5.5 10^3/uL (1.5-8.5); NEUTROPHILS % 65.1 % (36.0-66.0); PLATELET COUNT, AUTOMATED 229 10^3/uL (150-450); RED BLOOD COUNT 3.57 10^6/uL (4.00-5.40); WHITE BLOOD COUNT 8.5 10^3/uL (4.0-10.0)
[2021-04-26 12:50] LABS: AMORPHOUS SEDIMENT SMALL (NEGATIVE); APPEARANCE, URINE HAZY (CLEAR); BACTERIA, URINE AUTO NEGATIVE (NEGATIVE); BILIRUBIN, URINE AUTO 1+ (NEGATIVE); BLOOD, URINE BLOOD NEGATIVE (NEGATIVE); COLOR, URINE YELLOW (YELLOW); GLUCOSE, URINE (UA) AUTO NEGATIVE (NEGATIVE); KETONE, URINE AUTO NEGATIVE (NEGATIVE); LEUKOCYTE ESTERASE, URINE AUTO NEGATIVE (NEGATIVE); MUCUS, URINE SMALL (NEGATIVE); NITRITE, URINE AUTO NEGATIVE (NEGATIVE); PROTEIN, URINE AUTO 1+ mg/dL (NEGATIVE); RBC, URINE AUTO 1 /HPF (0-3); SPECIFIC GRAVITY URINE AUTO 1.036 (1.002-1.035); SQUAMOUS EPITHELIAL CELL UR AU 4 /HPF (0-6); UROBILINOGEN, URINE AUTO 0.2 mg/dL (0.0-2.0); WBC, URINE AUTO 1 /HPF (0-3)
[2021-04-26 13:01] LABS: ERYTHROCYTE SEDIMENTATION RATE 2 mm/hr (0-20)
[2021-04-26 13:51] LABS: ALT/SGPT 13 IU/L (0-32); COMPLEMENT C3 59.3 MG/DL (90-180); COMPLEMENT C4 19.5 MG/DL (10-40); CREATININE FOR GFR 0.82 MG/DL (0.55-1.30); GLOMERULAR FILTRATION RATE > 60.0 (>58)
[2021-04-26 14:16] LABS: TOTAL 25(OH) VITAMIN D 36.9 NG/ML (30.0-100.0)
[2021-04-26 15:08] LABS: MALB URINE SIEMENS < 5.0 MG/L; MAU/CREAT RATIO 3.1 MCG/MG (0.0-30.0)
== END ==
LOC: M LAB 11:14
PROVIDERS: ATTEND Nurse Practitioner Family
DX: T50.904D Poisoning by unspecified drugs, medicaments and biological substances, undetermined, subsequent encounter (principal); E03.9 Hypothyroidism, unspecified; M32.19 Other organ or system involvement in systemic lupus erythematosus; Z79.899 Other long term (current) drug therapy; M35.01 Sjogren syndrome with keratoconjunctivitis; E55.9 Vitamin D deficiency, unspecified

== ENCOUNTER 2021-04-30 00:37 | Emergency (ER) | payer OTHER, MEDICAID ==
[~2021-04-30] VITALS: Ht 170.2 cm; Wt 77.3 kg
[2021-04-30 00:46] VITALS: BP 114/80
--- NOTE | 2021-04-30 01:43 | REPVR ---
PROCEDURE INFORMATION: Exam: CT Head Without Contrast Exam date and time: 04/30/2021 1:04 AM Age: 40 years old Clinical indication: Injury or trauma; Fall; Concussion/head injury TECHNIQUE: Imaging protocol: Computed tomography of the head without contrast. Radiation optimization: All CT scans at this facility use at least one of these dose optimization techniques: automated exposure control; mA and/or kV adjustment per patient size (includes targeted exams where dose is matched to clinical indication); or iterative reconstruction. COMPARISON: 1. CT Head without contrast 2021-02-03 22:[address] Head without contrast 2019-05-12 16:46 FINDINGS: Brain: Normal. No hemorrhage. Unremarkable white matter. No mass effect. Cerebral ventricles: No ventriculomegaly. Paranasal sinuses: Visualized sinuses are unremarkable. No fluid levels. Mastoid air cells: Visualized mastoid air cells are well aerated. Bones/joints: Unremarkable. No acute fracture. Soft tissues: Unremarkable. IMPRESSION: No acute intracranial abnormality. Electronically signed by: Blawinder Zimmerman On 04/30/2021 01:42:50 AM
--- NOTE | 2021-04-30 01:51 | REPVR ---
PROCEDURE INFORMATION: Exam: CT Cervical Spine Without Contrast Exam date and time: 04/30/2021 1:04 AM Age: 40 years old Clinical indication: Neck pain; Additional info: Trauma TECHNIQUE: Imaging protocol: Computed tomography images of the cervical spine without contrast. Radiation optimization: All CT scans at this facility use at least one of these dose optimization techniques: automated exposure control; mA and/or kV adjustment per patient size (includes targeted exams where dose is matched to clinical indication); or iterative reconstruction. COMPARISON: CT Spine,cervical w/o contrast 2018-05-21 10:37 FINDINGS: Bones/joints: Normal spinal curvature, vertebral body heights, and alignment. No spinal fracture or acute subluxation. Discs/Spinal canal/Neural foramina: No significant disc protrusion. No severe spinal canal stenosis. No significant neural foraminal narrowing. Lungs: Lung apices are normal. Soft tissues: Unremarkable. IMPRESSION: No acute vertebral fracture/subluxation. Electronically signed by: Balwinder Zimmerman On 04/30/2021 01:51:19 AM
== END 2021-04-30 02:34 | disposition home or self-care (01) ==
LOC: M ED 00:37
DX: S00.03XA Contusion of scalp, initial encounter (principal); W01.0XXA Fall on same level from slipping, tripping and stumbling without subsequent striking against object, initial encounter; Y92.019 Unspecified place in single-family (private) house as the place of occurrence of the external cause; Y93.9 Activity, unspecified; Y99.9 Unspecified external cause status; F31.9 Bipolar disorder, unspecified; I10 Essential (primary) hypertension; F43.10 Post-traumatic stress disorder, unspecified; J45.909 Unspecified asthma, uncomplicated; M79.7 Fibromyalgia; F19.11 Other psychoactive substance abuse, in remission; Z88.1 Allergy status to other antibiotic agents; Z88.2 Allergy status to sulfonamides; Z88.8 Allergy status to other drugs, medicaments and biological substances; Z79.899 Other long term (current) drug therapy

== ENCOUNTER 2021-05-05 18:30 | Emergency (ER) | payer OTHER, MEDICAID ==
[~2021-05-05] VITALS: Ht 167.6 cm; Wt 75.0 kg
[~2021-05-05 18:30] MED LIST changes: -DOXY100C37 PO; +DOXY1CAP62 PO
[2021-05-05 18:41] VITALS: BP 142/75
[2021-05-05] MEDS ORDERED: LR 1,000 ML IV ONE (19:30)
[2021-05-05 20:10] LABS: BASO # 0.1 10^3/uL (0.0-0.2); BASO % 1.1 % (0.0-1.0); HEMATOCRIT 40.6 % (36.0-47.0); HEMOGLOBIN 13.8 g/dl (12.0-15.5); LYMPH # 3.4 10^3/uL (1.5-5.0); LYMPH % 46.9 % (24.0-44.0); MONO # 0.6 10^3/uL (0.0-0.8); MONO % 8.1 % (2.0-8.0); NEUTROPHILS # 3.1 10^3/uL (1.5-8.5); NEUTROPHILS % 43.3 % (36.0-66.0); PLATELET COUNT, AUTOMATED 314 10^3/uL (150-450); RED BLOOD COUNT 4.06 10^6/uL (4.00-5.40); WHITE BLOOD COUNT 7.1 10^3/uL (4.0-10.0)
[2021-05-05 20:39] LABS: ALBUMIN 2.5 GM/DL (3.2-5.2); ALT/SGPT 11 U/L (12-78); BILIRUBIN,DIRECT < 0.1 MG/DL (0.0-0.2); BILIRUBIN,TOTAL 0.4 MG/DL (0.2-1.0); BLOOD UREA NITROGEN 5 MG/DL (7-18); CALCIUM LEVEL 8.1 MG/DL (8.5-10.1); CARBON DIOXIDE LEVEL 27 MEQ/L (21-32); CHLORIDE LEVEL 109 MEQ/L (98-107); CREATININE FOR GFR 0.79 MG/DL (0.55-1.30); GLOMERULAR FILTRATION RATE > 60.0 (>58); GLUCOSE, FASTING 67 MG/DL (70-100); MAGNESIUM LEVEL 1.9 MG/DL (1.8-2.4); PHOSPHORUS LEVEL 3.6 MG/DL (2.5-4.9); SODIUM LEVEL 138 MEQ/L (136-145); TOTAL PROTEIN 5.1 GM/DL (6.4-8.2); VALPROIC ACID (DEPAKOTE) 4.4 UG/ML (50.0-100.0)
--- NOTE | 2021-05-05 21:12 | REPVR ---
PROCEDURE INFORMATION: Exam: CT Head Without Contrast Exam date and time: 05/05/2021 7:41 PM Age: 40 years old Clinical indication: Other: Seizure; Additional info: Sezure TECHNIQUE: Imaging protocol: Computed tomography of the head without contrast. Radiation optimization: All CT scans at this facility use at least one of these dose optimization techniques: automated exposure control; mA and/or kV adjustment per patient size (includes targeted exams where dose is matched to clinical indication); or iterative reconstruction. COMPARISON: CT Head without contrast 04/30/2021 1:08 AM FINDINGS: Brain: There is no evidence of intracranial bleed. Cerebral ventricles: Normal appearing ventricles. Paranasal sinuses: Clear paranasal sinuses. Mastoid air cells: Clear mastoid air cells. Orbital cavity: The orbits appear symmetric. Bones/joints: Unremarkable. No acute fracture. Soft tissues: Unremarkable. IMPRESSION: Normal appearing CT scan of the brain. If there are continued symptoms a MRI would be a more sensitive examination. Electronically signed by: Carl Acuna On 05/05/2021 21:12:04 PM
--- NOTE | 2021-05-05 21:42 | REPVR ---
PROCEDURE INFORMATION: Exam: XR Chest Exam date and time: 05/05/2021 7:37 PM Age: 40 years old Clinical indication: Other: Seizure TECHNIQUE: Imaging protocol: XR of the chest. Views: 1 view. COMPARISON: CR Ribs uni W-PA CHEST ONLY RIGHT 03/16/2021 12:15 PM FINDINGS: Lungs: There is no evidence of localized infiltrate or pleural effusion. Pleural spaces: There is no evidence of pneumothorax. Heart/Mediastinum: The heart is normal in size. Bones/joints: No bony abnormality is seen. IMPRESSION: Clear appearing lungs. Electronically signed by: Carl Acuna On 05/05/2021 21:41:42 PM
== END 2021-05-05 23:41 | disposition home or self-care (01) ==
LOC: M ED 18:30
DX: R56.9 Unspecified convulsions (principal); Z79.51 Long term (current) use of inhaled steroids; Z79.899 Other long term (current) drug therapy; Z88.1 Allergy status to other antibiotic agents; Z88.2 Allergy status to sulfonamides; Z88.8 Allergy status to other drugs, medicaments and biological substances; Z91.040 Latex allergy status

== ENCOUNTER 2021-05-16 21:29 | Emergency (ER) | payer OTHER, MEDICAID ==
[~2021-05-16] VITALS: Ht 170.2 cm; Wt 81.8 kg
[~2021-05-16 21:29] MED LIST changes: -OLAN10TA2 PO; +OLAN1TAB16 PO; +OLAN1TAB20 PO; -OLAN5TAB PO; -OLAN7.5T PO; +OLAN7.5T8 PO
[2021-05-17] MEDS ORDERED: ACETAMINOPHEN 500 MG TAB PO ONE (00:15)
[2021-05-17] MEDS ORDERED: METOCLOPRAMIDE INJ 10MG/2ML VIAL (J2765 PER 1) IV ONE (00:15)
[2021-05-17] MEDS ORDERED: KETOROLAC 30 MG/ML 1ML VIAL IV ONE (00:15)
[2021-05-17] MEDS ORDERED: NS 1,000 ML IV ONE (00:15)
[2021-05-17] MEDS ORDERED: diphenhydrAMINE 50MG/ML VIAL (J1200) IV ONE (00:15)
[2021-05-17] MEDS ORDERED: MAG SULF 1GM/100ML (MAG RUN) 1 GM in IV 1 EA IV ONE (00:15)
[2021-05-17] MEDS ORDERED: ONDANSETRON 4MG/2ML VIAL IV ONE (00:35)
[2021-05-17 02:46] VITALS: BP 119/85
[2021-05-17] MEDS ORDERED: KETO10TAB PO (02:53)
== END 2021-05-17 03:24 | disposition home or self-care (01) ==
LOC: M ED 21:29
DX: G43.909 Migraine, unspecified, not intractable, without status migrainosus (principal); I10 Essential (primary) hypertension; J45.909 Unspecified asthma, uncomplicated; M79.7 Fibromyalgia; F32.9 Major depressive disorder, single episode, unspecified; Z98.84 Bariatric surgery status; Z79.899 Other long term (current) drug therapy; Z88.2 Allergy status to sulfonamides; Z88.1 Allergy status to other antibiotic agents; Z91.040 Latex allergy status; Z88.8 Allergy status to other drugs, medicaments and biological substances
CPT/HCPCS: 96365; 96366; 96375; 99284; J1200; J1885; J2405; J3475

== ENCOUNTER 2021-05-18 14:05 | Emergency (ER) | payer OTHER, MEDICAID ==
[~2021-05-18] VITALS: Ht 167.6 cm; Wt 31.8 kg
--- NOTE | 2021-05-18 15:05 | REP ---
INDICATION: vomiting COMPARISON: 05/05/2021 TECHNIQUE: Portable AP view of the chest FINDINGS: The mediastinum and cardiac silhouette are stable and within normal limits for portable technique. The lung rios are clear without acute consolidation, effusion, or pneumothorax. Skeletal structures are intact. IMPRESSION: No acute cardiopulmonary process appreciated. <Electronically signed by Jony Ley > 05/18/21 [id number]
[2021-05-18 15:22] LABS: BASO # 0.1 10^3/uL (0.0-0.2); BASO % 0.6 % (0.0-1.0); HEMOGLOBIN 11.8 g/dl (12.0-15.5); LYMPH # 2.4 10^3/uL (1.5-5.0); LYMPH % 28.2 % (24.0-44.0); MEAN CORPUSCULAR HEMOGLOBIN 33.6 pg (27.0-33.0); MEAN CORPUSCULAR HGB CONC 33.7 g/dl (32.0-36.5); MEAN CORPUSCULAR VOLUME 99.7 fl (80.0-96.0); MONO # 0.5 10^3/uL (0.0-0.8); MONO % 5.8 % (2.0-8.0); NEUTROPHILS # 5.6 10^3/uL (1.5-8.5); NEUTROPHILS % 65.1 % (36.0-66.0); PLATELET COUNT, AUTOMATED 253 10^3/uL (150-450); RED BLOOD COUNT 3.51 10^6/uL (4.00-5.40); WHITE BLOOD COUNT 8.7 10^3/uL (4.0-10.0)
[2021-05-18] MEDS ORDERED: NS 1,000 ML IV ONE (15:35)
[2021-05-18 15:45] LABS: ALBUMIN 2.3 GM/DL (3.2-5.2); ALT/SGPT 11 U/L (12-78); BILIRUBIN,DIRECT < 0.1 MG/DL (0.0-0.2); BILIRUBIN,TOTAL 0.4 MG/DL (0.2-1.0); BLOOD UREA NITROGEN 6 MG/DL (7-18); CALCIUM LEVEL 7.7 MG/DL (8.5-10.1); CARBON DIOXIDE LEVEL 28 MEQ/L (21-32); CHLORIDE LEVEL 99 MEQ/L (98-107); GLOMERULAR FILTRATION RATE > 60.0 (>58); GLUCOSE, FASTING 76 MG/DL (70-100); LIPASE 28 U/L (73-393); POTASSIUM SERUM 5.7 MEQ/L (3.5-5.1); SODIUM LEVEL 130 MEQ/L (136-145); TOTAL PROTEIN 4.4 GM/DL (6.4-8.2)
[2021-05-18] MEDS ORDERED: LIDOCAINE 2% 5ML JELLY UROJET TOP ONE (16:25)
--- NOTE | 2021-05-18 16:53 | REP ---
INDICATION: ABDL PAIN, VOMITING, DIARRHEA COMPARISON: 03/18/2021 TECHNIQUE: Axial noncontrast images from the lung bases to the pubic symphysis with coronal and sagittal reformations. This CT examination was performed using the following dose reduction techniques: Automated exposure control, adjustment of mA and/or kv according to the patient's size, and use of iterative reconstruction technique. FINDINGS: Lung bases are clear. Visualized heart and pericardium normal. Evidence for prior gastric bypass surgery and cholecystectomy. Liver, spleen, pancreas, bilateral adrenal glands and kidneys are normal. The enteric system again demonstrates few distended loops of small bowel which are air-filled and fluid-filled, similar to prior examination, and may represent a mild enteritis. The large bowel is grossly unremarkable. There is no evidence for obstruction or perforation. Pelvis demonstrates normal bladder and prior hysterectomy. No ascites. No free air. No adenopathy. No focal inflammatory stranding. Abdominal aorta without aneurysm. Musculoskeletal structures are intact and without acute osseous abnormality. IMPRESSION: Cannot exclude mild enteritis. No further acute abdominopelvic pathology appreciated. <Electronically signed by Jnoy Ley > 05/18/21 [id number]
[2021-05-18 18:00] VITALS: BP 109/72
[2021-05-18 18:03] LABS: BLOOD UREA NITROGEN 6 MG/DL (7-18); CALCIUM LEVEL 7.7 MG/DL (8.5-10.1); CARBON DIOXIDE LEVEL 25 MEQ/L (21-32); CHLORIDE LEVEL 102 MEQ/L (98-107); CREATININE FOR GFR 0.81 MG/DL (0.55-1.30); GLOMERULAR FILTRATION RATE > 60.0 (>58); GLUCOSE, FASTING 70 MG/DL (70-100); SODIUM LEVEL 131 MEQ/L (136-145)
--- NOTE | 2021-05-18 19:12 | ECGEPIP ---
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
== END 2021-05-18 19:08 | disposition home or self-care (01) ==
LOC: M ED 15:38
DX: R11.2 Nausea with vomiting, unspecified (principal); R19.7 Diarrhea, unspecified; I10 Essential (primary) hypertension; K21.9 Gastro-esophageal reflux disease without esophagitis; E07.9 Disorder of thyroid, unspecified; E78.9 Disorder of lipoprotein metabolism, unspecified; F31.9 Bipolar disorder, unspecified; F41.9 Anxiety disorder, unspecified; M06.9 Rheumatoid arthritis, unspecified; Z79.899 Other long term (current) drug therapy; Z79.890 Hormone replacement therapy; Z88.1 Allergy status to other antibiotic agents; Z88.2 Allergy status to sulfonamides; Z88.8 Allergy status to other drugs, medicaments and biological substances; Z91.040 Latex allergy status; F17.210 Nicotine dependence, cigarettes, uncomplicated

== ENCOUNTER 2021-06-02 09:19 | Emergency (ER) | payer MEDICARE, MEDICAID ==
[~2021-06-02] VITALS: Ht 170.2 cm; Wt 74.1 kg
[2021-06-02] MEDS ORDERED: GENT0.3S29 (09:36)
[2021-06-02] MEDS ORDERED: PANT40TA29 (09:37)
[2021-06-02 11:14] LABS: BLOOD UREA NITROGEN 7 MG/DL (7-18); CALCIUM LEVEL 7.8 MG/DL (8.5-10.1); CARBON DIOXIDE LEVEL 25 MEQ/L (21-32); CHLORIDE LEVEL 107 MEQ/L (98-107); CK-MB VALUE MASS 1.3 NG/ML (<3.6); CPK CREATINE PHOSPHOKINASE 55 U/L (26-192); CREATININE FOR GFR 0.78 MG/DL (0.55-1.30); GLOMERULAR FILTRATION RATE > 60.0 (>58); GLUCOSE, FASTING 69 MG/DL (70-100); MB/CK RELATIVE INDEX 2.36 (< OR =4); POTASSIUM SERUM 5.4 MEQ/L (3.5-5.1); SODIUM LEVEL 137 MEQ/L (136-145); THYROID STIMULATING HORMONE 0.645 uIU/ML (0.358-3.740); TROPONIN I < 0.02 NG/ML (< 0.10)
--- NOTE | 2021-06-02 11:39 | REP ---
INDICATION: trauma. COMPARISON: None. TECHNIQUE: The four views FINDINGS: Lateral view shows a small plantar calcaneal spur. Distal tibia and fibular grossly intact. Subtalar joints intact talus and calcaneus show no fracture on these images. Tarsal bones their articulations are unremarkable. Metatarsals and their articulations are unremarkable. The medial aspect of the PIP joint of the 4th toe shows a linear calcific density projecting over the medial joint margin on 3 of the 4 views. This could be a small cortical avulsion from the middle phalanx at this site. No other significant finding. IMPRESSION: 1. Curvilinear calcific density at the medial margin of PIP joint of the 4th toe on 3 images the suggest avulsion, likely from medial corner of the middle phalanx at that joint. Please correlate for point tenderness at this site. No other significant finding. <Electronically signed by Mushtaq Koch > 06/02/21 [id number]
--- NOTE | 2021-06-02 11:57 | REP ---
INDICATION: trauma. COMPARISON: AP chest 05/18/2021, right ribs 03/16/2021 TECHNIQUE: AP supine chest with four views right ribs FINDINGS: AP chest: Lungs adequately inflated. There somewhat overpenetrated, limiting the exam, but no gross evidence for infiltrate, atelectasis or mass. No lateral pleural thickening or apical scarring. The heart, mediastinal hilar contours are normal and unchanged. The clavicles and scapula and visualized spine are unchanged. No acute finding. Right ribs: There is a posterolateral 10th rib displaced fracture which is not present on the previous study. Subtle finding of the 11th rib posterolaterally on previous study is unchanged likely healed or healing nondisplaced rib fracture. There is also anterior right 7th rib lesion with sclerotic margins suggesting healing fracture. IMPRESSION: 1. There is a new mildly displaced posterolateral right 10th rib fracture and a sclerotic appearance to anterior right 7th rib lesion, likely a healing rib fracture. The nondisplaced 11th rib injury noted on previous study is unchanged. 2. No other significant finding. <Electronically signed by Mushtaq Koch > 06/02/21 [id number]
[2021-06-02 11:59] LABS: BASO # 0.1 10^3/uL (0.0-0.2); HEMATOCRIT 31.7 % (36.0-47.0); HEMOGLOBIN 10.6 g/dl (12.0-15.5); LYMPH # 1.8 10^3/uL (1.5-5.0); LYMPH % 34.9 % (24.0-44.0); MEAN CORPUSCULAR HEMOGLOBIN 33.9 pg (27.0-33.0); MEAN CORPUSCULAR HGB CONC 33.4 g/dl (32.0-36.5); MEAN CORPUSCULAR VOLUME 101.3 fl (80.0-96.0); MONO # 0.3 10^3/uL (0.0-0.8); MONO % 6.5 % (2.0-8.0); NEUTROPHILS # 2.9 10^3/uL (1.5-8.5); NEUTROPHILS % 57.2 % (36.0-66.0); PLATELET COUNT, AUTOMATED 250 10^3/uL (150-450); RED BLOOD COUNT 3.13 10^6/uL (4.00-5.40); WHITE BLOOD COUNT 5.1 10^3/uL (4.0-10.0)
[2021-06-02] MEDS ORDERED: TRAM50TA2 PO ×2 (13:43→13:44)
[2021-06-02 14:04] VITALS: BP 121/78
--- NOTE | 2021-06-02 22:10 | ECGEPIP ---
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
== END 2021-06-02 14:18 | disposition home or self-care (01) ==
LOC: EDBD 09:19 → M ED 09:19
DX: S22.31XA Fracture of one rib, right side, initial encounter for closed fracture (principal); S92.912A Unspecified fracture of left toe(s), initial encounter for closed fracture; R55 Syncope and collapse; Y92.9 Unspecified place or not applicable; Y93.9 Activity, unspecified; Y99.9 Unspecified external cause status; I10 Essential (primary) hypertension; Z88.1 Allergy status to other antibiotic agents; Z88.2 Allergy status to sulfonamides; Z88.7 Allergy status to serum and vaccine; Z91.040 Latex allergy status; Z88.8 Allergy status to other drugs, medicaments and biological substances

== ENCOUNTER 2021-06-10 12:30 | Emergency (ER) | payer MEDICARE, MEDICAID ==
[~2021-06-10] VITALS: Ht 167.6 cm; Wt 71.2 kg
[~2021-06-10 12:30] MED LIST changes: +GENT0.3S29
[2021-06-10] MEDS ORDERED: diphenhydrAMINE 50MG/ML VIAL (J1200) IV ONE (14:55)
[2021-06-10] MEDS ORDERED: METOCLOPRAMIDE INJ 10MG/2ML VIAL (J2765 PER 1) IV ONE (14:55)
[2021-06-10] MEDS ORDERED: KETOROLAC 30 MG/ML 1ML VIAL IV ONE (14:55)
--- NOTE | 2021-06-10 15:32 | REP ---
INDICATION: Change in headache. COMPARISON: Comparison brain CT study is dated May 05, 2021.. TECHNIQUE: Helical scanning is acquired. 5 mm axial images were reformatted. Coronal MPR images were generated. FINDINGS: Digital preliminary environmental test technician radiograph demonstrates that the patient is edentulous. Bone window settings demonstrate intact bony calvarium. Visualized paranasal sinuses are clear. No intraorbital abnormality is seen. On soft tissue window settings, the lateral, 3rd, and 4th ventricles are normal in size and position. Gong-white differentiation pattern is normal above and below the tentorium. There is no evidence of intracranial hemorrhage. No mass, infarct, extra-axial fluid collection, or midline shift is seen. Sulci are somewhat prominent bilaterally and diffusely question early atrophy. IMPRESSION: No acute intracranial abnormality.. <Electronically signed by Rogelio Hinojosa > 06/10/21 [id number]
[2021-06-10 15:46] LABS: BASO # 0.1 10^3/uL (0.0-0.2); BASO % 0.8 % (0.0-1.0); HEMATOCRIT 32.9 % (36.0-47.0); HEMOGLOBIN 11.1 g/dl (12.0-15.5); LYMPH # 2.2 10^3/uL (1.5-5.0); LYMPH % 20.9 % (24.0-44.0); MEAN CORPUSCULAR HEMOGLOBIN 34.8 pg (27.0-33.0); MEAN CORPUSCULAR HGB CONC 33.7 g/dl (32.0-36.5); MEAN CORPUSCULAR VOLUME 103.1 fl (80.0-96.0); MONO # 0.5 10^3/uL (0.0-0.8); MONO % 4.2 % (2.0-8.0); NEUTROPHILS # 7.8 10^3/uL (1.5-8.5); NEUTROPHILS % 73.8 % (36.0-66.0); PLATELET COUNT, AUTOMATED 266 10^3/uL (150-450); RED BLOOD COUNT 3.19 10^6/uL (4.00-5.40); WHITE BLOOD COUNT 10.6 10^3/uL (4.0-10.0)
[2021-06-10 16:15] LABS: ALBUMIN 2.2 GM/DL (3.2-5.2); ALT/SGPT 76 U/L (12-78); BILIRUBIN,TOTAL 0.8 MG/DL (0.2-1.0); BLOOD UREA NITROGEN 11 MG/DL (7-18); CALCIUM LEVEL 8.3 MG/DL (8.5-10.1); CARBON DIOXIDE LEVEL 23 MEQ/L (21-32); CHLORIDE LEVEL 109 MEQ/L (98-107); CREATININE FOR GFR 0.94 MG/DL (0.55-1.30); GLOMERULAR FILTRATION RATE > 60.0 (>58); GLUCOSE, FASTING 51 MG/DL (70-100); POTASSIUM SERUM 5.4 MEQ/L (3.5-5.1); SODIUM LEVEL 139 MEQ/L (136-145); TOTAL PROTEIN 4.7 GM/DL (6.4-8.2)
[2021-06-10] MEDS ORDERED: REGL10TA6 PO (16:57)
[2021-06-10] MEDS ORDERED: ZOFR4TAB16 PO (16:57)
[2021-06-10 17:43] VITALS: BP 124/75
== END 2021-06-10 17:48 | disposition home or self-care (01) ==
LOC: M ED 12:30
DX: R51.9 Headache, unspecified (principal); R11.0 Nausea; R94.5 Abnormal results of liver function studies; I10 Essential (primary) hypertension; K21.9 Gastro-esophageal reflux disease without esophagitis; E07.9 Disorder of thyroid, unspecified; M06.9 Rheumatoid arthritis, unspecified; F31.9 Bipolar disorder, unspecified; F41.9 Anxiety disorder, unspecified; F17.200 Nicotine dependence, unspecified, uncomplicated; Z88.1 Allergy status to other antibiotic agents; Z88.6 Allergy status to analgesic agent; Z91.040 Latex allergy status; Z88.2 Allergy status to sulfonamides; Z88.8 Allergy status to other drugs, medicaments and biological substances; Z79.899 Other long term (current) drug therapy
CPT/HCPCS: 70450; 80053; 85025; 87798; 96374; 96375; 99284; J1200; J1885; J2765

== ENCOUNTER 2021-06-12 06:53 | Emergency (ER) | payer MEDICARE, MEDICAID ==
[~2021-06-12] VITALS: Ht 170.2 cm; Wt 73.2 kg
[2021-06-12 08:57] LABS: HEMOGLOBIN 11.6 g/dl (12.0-15.5); MEAN CORPUSCULAR HEMOGLOBIN 34.9 pg (27.0-33.0); MEAN CORPUSCULAR HGB CONC 33.1 g/dl (32.0-36.5); MEAN CORPUSCULAR VOLUME 105.4 fl (80.0-96.0); PLATELET COUNT, AUTOMATED 259 10^3/uL (150-450); RED BLOOD COUNT 3.32 10^6/uL (4.00-5.40); WHITE BLOOD COUNT 5.1 10^3/uL (4.0-10.0)
[2021-06-12 09:37] LABS: ACETAMINOPHEN LEVEL 14.5 UG/ML (10.0-30.0); ALBUMIN 2.2 GM/DL (3.2-5.2); ALT/SGPT 46 U/L (12-78); BILIRUBIN,DIRECT 0.3 MG/DL (0.0-0.2); BILIRUBIN,TOTAL 0.6 MG/DL (0.2-1.0); BLOOD UREA NITROGEN 18 MG/DL (7-18); CARBON DIOXIDE LEVEL 25 MEQ/L (21-32); CHLORIDE LEVEL 110 MEQ/L (98-107); CREATININE FOR GFR 1.18 MG/DL (0.55-1.30); ETHYL ALCOHOL (ETHANOL) < 0.003 % (0.000-0.010); GLOMERULAR FILTRATION RATE 53.5 (>58); GLUCOSE, FASTING 66 MG/DL (70-100); SALICYLATE LEVEL 7.5 MG/DL (5.0-30.0); SODIUM LEVEL 142 MEQ/L (136-145); TOTAL PROTEIN 4.8 GM/DL (6.4-8.2)
[2021-06-12 13:40] VITALS: BP 130/77
== END 2021-06-12 13:47 | disposition home or self-care (01) ==
LOC: M ED 06:53
DX: F33.9 Major depressive disorder, recurrent, unspecified (principal); F19.11 Other psychoactive substance abuse, in remission; I10 Essential (primary) hypertension; J44.9 Chronic obstructive pulmonary disease, unspecified; K21.9 Gastro-esophageal reflux disease without esophagitis; E07.9 Disorder of thyroid, unspecified; Z98.84 Bariatric surgery status; Z88.1 Allergy status to other antibiotic agents; Z88.2 Allergy status to sulfonamides; Z88.8 Allergy status to other drugs, medicaments and biological substances; Z79.899 Other long term (current) drug therapy

== ENCOUNTER 2021-06-15 18:37 | Emergency (ER) | payer MEDICARE, MEDICAID ==
[~2021-06-15 18:37] MED LIST changes: +CYMB60CA4 PO; +DOXY-443 PO; -DOXY1CAP62 PO; -MAGN400T3 PO; +MAGN400T33 PO; -MONT10TA10 PO; +MONT10TA97 PO; +ONDA-84 PO; -ONDA8TAB10 PO; -PROC10TA4 PO; +PROC10TA5 PO; -SUMA6INJ16 SC; +SUMA6INJ25 SC
[2021-06-15] MEDS ORDERED: SUMAtriptan SUCCINATE 6 MG/0.5 ML VIAL SC ONE (20:50)
[2021-06-15 21:21] LABS: HEMATOCRIT 36.5 % (36.0-47.0); HEMOGLOBIN 11.7 g/dl (12.0-15.5); MEAN CORPUSCULAR HGB CONC 32.1 g/dl (32.0-36.5); MEAN CORPUSCULAR VOLUME 109.3 fl (80.0-96.0); PLATELET COUNT, AUTOMATED 276 10^3/uL (150-450); RED BLOOD COUNT 3.34 10^6/uL (4.00-5.40); WHITE BLOOD COUNT 5.2 10^3/uL (4.0-10.0)
[2021-06-15 21:37] LABS: AMPHETAMINES LEVEL URINE NEGATIVE (NEGATIVE); BARBITURATES URINE NEGATIVE (NEGATIVE); BENZODIAZEPINES URINE POSITIVE (NEGATIVE); CANNABINOIDS URINE NEGATIVE (NEGATIVE); COCAINE METABOLITE URINE NEGATIVE (NEGATIVE); METHADONE URINE NEGATIVE (NEGATIVE); OPIATES URINE NEGATIVE (NEGATIVE); PHENCYCLIDINE URINE NEGATIVE (NEGATIVE)
[2021-06-15 21:39] LABS: HCG, SERUM QUALITATIVE NEGATIVE (NEGATIVE)
[2021-06-15 21:45] LABS: ACETAMINOPHEN LEVEL 8.7 UG/ML (10.0-30.0); ALBUMIN 2.3 GM/DL (3.2-5.2); ALT/SGPT 28 U/L (12-78); BILIRUBIN,DIRECT 0.2 MG/DL (0.0-0.2); BILIRUBIN,TOTAL 0.5 MG/DL (0.2-1.0); BLOOD UREA NITROGEN 13 MG/DL (7-18); CALCIUM LEVEL 7.9 MG/DL (8.5-10.1); CARBON DIOXIDE LEVEL 22 MEQ/L (21-32); CHLORIDE LEVEL 107 MEQ/L (98-107); CREATININE FOR GFR 0.94 MG/DL (0.55-1.30); ETHYL ALCOHOL (ETHANOL) < 0.003 % (0.000-0.010); GLOMERULAR FILTRATION RATE > 60.0 (>58); GLUCOSE, FASTING 79 MG/DL (70-100); POTASSIUM SERUM 4.9 MEQ/L (3.5-5.1); SALICYLATE LEVEL 7.5 MG/DL (5.0-30.0); SODIUM LEVEL 140 MEQ/L (136-145); TOTAL PROTEIN 5.2 GM/DL (6.4-8.2)
[2021-06-16 00:50] VITALS: BP 121/74
[2021-07-15] MEDS ORDERED: MONT10TA97 PO (22:21)
== END 2021-06-16 00:54 | disposition home or self-care (01) ==
LOC: M ED 18:37
DX: F43.0 Acute stress reaction (principal); F31.9 Bipolar disorder, unspecified; F17.200 Nicotine dependence, unspecified, uncomplicated; Z91.040 Latex allergy status; Z88.1 Allergy status to other antibiotic agents; Z88.2 Allergy status to sulfonamides

== ENCOUNTER 2021-06-18 18:09 | Emergency (ER) | payer MEDICARE, MEDICAID ==
[~2021-06-18] VITALS: Ht 170.2 cm; Wt 73.2 kg
[2021-06-18 22:07] VITALS: BP 125/72
[2021-07-15] MEDS ORDERED: MONT10TA97 PO (22:21)
== END 2021-06-18 23:49 | disposition left against medical advice (07) ==
LOC: M ED 18:09
DX: Z53.21 Procedure and treatment not carried out due to patient leaving prior to being seen by health care provider (principal)

== ENCOUNTER 2021-06-24 16:19 | Emergency (ER) | payer MEDICARE, MEDICAID ==
[~2021-06-24] VITALS: Ht 170.2 cm; Wt 73.2 kg
[2021-06-24 16:19] VITALS: BP 141/83
[~2021-06-24 16:19] MED LIST changes: -CYMB60CA4 PO; -DOXY-443 PO; +DOXY1CAP62 PO; +MAGN400T3 PO; -MAGN400T33 PO; +MONT10TA10 PO; -MONT10TA97 PO; -ONDA-84 PO; +ONDA8TAB10 PO; +PROC10TA4 PO; -PROC10TA5 PO; +SUMA6INJ16 SC; -SUMA6INJ25 SC
== END 2021-06-24 18:40 | disposition left against medical advice (07) ==
LOC: M ED 16:19
DX: Z53.21 Procedure and treatment not carried out due to patient leaving prior to being seen by health care provider (principal)

== ENCOUNTER 2021-06-25 17:38 | Emergency (ER) | payer MEDICARE, MEDICAID ==
[~2021-06-25] VITALS: Ht 170.2 cm; Wt 69.7 kg
[2021-06-25 18:24] LABS: BASO % 0.6 % (0.0-1.0); HEMATOCRIT 31.9 % (36.0-47.0); HEMOGLOBIN 10.7 g/dl (12.0-15.5); LYMPH # 1.4 10^3/uL (1.5-5.0); LYMPH % 20.3 % (24.0-44.0); MEAN CORPUSCULAR HEMOGLOBIN 34.9 pg (27.0-33.0); MEAN CORPUSCULAR HGB CONC 33.5 g/dl (32.0-36.5); MEAN CORPUSCULAR VOLUME 103.9 fl (80.0-96.0); MONO # 0.6 10^3/uL (0.0-0.8); MONO % 8.5 % (2.0-8.0); NEUTROPHILS # 4.8 10^3/uL (1.5-8.5); NEUTROPHILS % 70.2 % (36.0-66.0); PLATELET COUNT, AUTOMATED 321 10^3/uL (150-450); RED BLOOD COUNT 3.07 10^6/uL (4.00-5.40); WHITE BLOOD COUNT 6.8 10^3/uL (4.0-10.0)
[2021-06-25 19:00] LABS: ALBUMIN 2.5 GM/DL (3.2-5.2); ALT/SGPT 20 U/L (12-78); BILIRUBIN,DIRECT < 0.1 MG/DL (0.0-0.2); BILIRUBIN,TOTAL 0.5 MG/DL (0.2-1.0); BLOOD UREA NITROGEN 10 MG/DL (7-18); CALCIUM LEVEL 8.4 MG/DL (8.5-10.1); CARBON DIOXIDE LEVEL 24 MEQ/L (21-32); CHLORIDE LEVEL 103 MEQ/L (98-107); CPK CREATINE PHOSPHOKINASE 112 U/L (26-192); CREATININE FOR GFR 1.54 MG/DL (0.55-1.30); ETHYL ALCOHOL (ETHANOL) < 0.003 % (0.000-0.010); GLOMERULAR FILTRATION RATE 39.3 (>58); GLUCOSE, FASTING 94 MG/DL (70-100); POTASSIUM SERUM 5.4 MEQ/L (3.5-5.1); SALICYLATE LEVEL 6.8 MG/DL (5.0-30.0); SODIUM LEVEL 134 MEQ/L (136-145); THYROID STIMULATING HORMONE 0.663 uIU/ML (0.358-3.740); TOTAL PROTEIN 5.3 GM/DL (6.4-8.2)
[2021-06-25 21:19] LABS: ACETAMINOPHEN LEVEL 55.3 UG/ML (10.0-30.0); ALBUMIN 2.5 GM/DL (3.2-5.2); BILIRUBIN,DIRECT 0.2 MG/DL (0.0-0.2); BILIRUBIN,TOTAL 0.5 MG/DL (0.2-1.0); TOTAL PROTEIN 5.1 GM/DL (6.4-8.2)
[2021-06-25 23:09] VITALS: BP 156/94
--- NOTE | 2021-06-26 07:19 | ECGEPIP ---
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
== END 2021-06-25 23:25 | disposition home or self-care (01) ==
LOC: M ED 17:38
DX: R41.82 Altered mental status, unspecified (principal); R45.1 Restlessness and agitation; T39.1X1A Poisoning by 4-Aminophenol derivatives, accidental (unintentional), initial encounter; F31.9 Bipolar disorder, unspecified; I10 Essential (primary) hypertension; M79.7 Fibromyalgia; J44.9 Chronic obstructive pulmonary disease, unspecified; Z88.1 Allergy status to other antibiotic agents; Z88.2 Allergy status to sulfonamides; Z88.8 Allergy status to other drugs, medicaments and biological substances; Z91.040 Latex allergy status; Z98.84 Bariatric surgery status

== ENCOUNTER 2021-06-29 15:36 | Emergency (ER) | payer MEDICARE, MEDICAID ==
[2021-06-29 16:07] VITALS: BP 101/61
== END 2021-06-29 18:13 | disposition home or self-care (01) ==
LOC: M ED 15:36
DX: F43.0 Acute stress reaction (principal); J44.9 Chronic obstructive pulmonary disease, unspecified; E03.9 Hypothyroidism, unspecified; Z88.1 Allergy status to other antibiotic agents; Z88.2 Allergy status to sulfonamides; Z91.040 Latex allergy status; Z88.8 Allergy status to other drugs, medicaments and biological substances

== ENCOUNTER 2021-06-30 20:43 | Emergency (ER) | payer MEDICARE, MEDICAID ==
[~2021-06-30] VITALS: Ht 170.2 cm; Wt 69.0 kg
[2021-07-01 02:55] VITALS: BP 129/79
== END 2021-07-01 02:57 | disposition home or self-care (01) ==
LOC: M ED 20:43
DX: Z76.5 Malingerer [conscious simulation] (principal); R33.9 Retention of urine, unspecified; F20.9 Schizophrenia, unspecified; F31.9 Bipolar disorder, unspecified; Z98.84 Bariatric surgery status; Z88.1 Allergy status to other antibiotic agents; Z88.2 Allergy status to sulfonamides; Z88.8 Allergy status to other drugs, medicaments and biological substances; Z79.899 Other long term (current) drug therapy

== ENCOUNTER 2021-07-05 19:15 | Emergency (ER) | payer MEDICARE, MEDICAID ==
[2021-07-06 00:09] VITALS: BP 121/58
== END 2021-07-06 00:41 | disposition home or self-care (01) ==
LOC: M ED 19:15
DX: F43.0 Acute stress reaction (principal); F31.9 Bipolar disorder, unspecified; F20.9 Schizophrenia, unspecified; J44.9 Chronic obstructive pulmonary disease, unspecified; Z79.899 Other long term (current) drug therapy; Z88.1 Allergy status to other antibiotic agents; Z88.2 Allergy status to sulfonamides; Z88.8 Allergy status to other drugs, medicaments and biological substances

== ENCOUNTER 2021-07-09 10:43 | Emergency (ER) | payer MEDICARE, MEDICAID ==
[~2021-07-09] VITALS: Ht 167.6 cm; Wt 114.1 kg
[2021-07-09] MEDS ORDERED: LORazepam 2 MG/ML VIAL IV STA (11:36)
[2021-07-09] MEDS ORDERED: NS 1,000 ML IV SCH (11:40)
[2021-07-09] MEDS ORDERED: METOCLOPRAMIDE INJ 10MG/2ML VIAL (J2765 PER 1) IV ONE (11:40)
[2021-07-09 12:54] LABS: BASO # 0.1 10^3/uL (0.0-0.2); BASO % 1.3 % (0.0-1.0); HEMATOCRIT 30.4 % (36.0-47.0); HEMOGLOBIN 10.4 g/dl (12.0-15.5); LYMPH # 2.4 10^3/uL (1.5-5.0); LYMPH % 49.1 % (24.0-44.0); MEAN CORPUSCULAR HEMOGLOBIN 34.4 pg (27.0-33.0); MEAN CORPUSCULAR HGB CONC 34.2 g/dl (32.0-36.5); MEAN CORPUSCULAR VOLUME 100.7 fl (80.0-96.0); MONO # 0.5 10^3/uL (0.0-0.8); MONO % 9.6 % (2.0-8.0); NEUTROPHILS # 1.9 10^3/uL (1.5-8.5); NEUTROPHILS % 39.8 % (36.0-66.0); PLATELET COUNT, AUTOMATED 251 10^3/uL (150-450); RED BLOOD COUNT 3.02 10^6/uL (4.00-5.40); WHITE BLOOD COUNT 4.8 10^3/uL (4.0-10.0)
[2021-07-09 13:19] LABS: ALBUMIN 1.9 GM/DL (3.2-5.2); ALT/SGPT 25 U/L (12-78); BILIRUBIN,TOTAL 0.6 MG/DL (0.2-1.0); BLOOD UREA NITROGEN 4 MG/DL (7-18); CARBON DIOXIDE LEVEL 26 MEQ/L (21-32); CHLORIDE LEVEL 106 MEQ/L (98-107); CREATININE FOR GFR 0.82 MG/DL (0.55-1.30); GLOMERULAR FILTRATION RATE > 60.0 (>58); GLUCOSE, FASTING 75 MG/DL (70-100); POTASSIUM SERUM 3.8 MEQ/L (3.5-5.1); SODIUM LEVEL 138 MEQ/L (136-145); TOTAL PROTEIN 4.6 GM/DL (6.4-8.2)
[2021-07-09 17:06] VITALS: BP 126/80
--- NOTE | 2021-07-09 20:48 | ECGEPIP ---
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
== END 2021-07-09 17:44 | disposition home or self-care (01) ==
LOC: EDBD 10:43 → M ED 10:43
DX: R11.0 Nausea (principal); F31.9 Bipolar disorder, unspecified; F20.9 Schizophrenia, unspecified; J44.9 Chronic obstructive pulmonary disease, unspecified; Z90.49 Acquired absence of other specified parts of digestive tract; Z88.1 Allergy status to other antibiotic agents; Z88.2 Allergy status to sulfonamides; Z88.8 Allergy status to other drugs, medicaments and biological substances; Z91.040 Latex allergy status; Z79.899 Other long term (current) drug therapy
CPT/HCPCS: 36415; 80053; 85025; 93005; 96374; 96375; 99284; J2060; J2765

== ENCOUNTER 2021-07-13 08:57 | Emergency (ER) | payer MEDICARE, MEDICAID ==
[~2021-07-13] VITALS: Ht 170.2 cm; Wt 64.1 kg
[2021-07-13] MEDS ORDERED: PROMETHAZINE INJ 25 MG/ML VIAL (J2550) IM ONE (11:50)
[2021-07-13 13:50] LABS: BASO # 0.1 10^3/uL (0.0-0.2); BASO % 1.2 % (0.0-1.0); HEMATOCRIT 32.1 % (36.0-47.0); HEMOGLOBIN 10.5 g/dl (12.0-15.5); LYMPH # 2.3 10^3/uL (1.5-5.0); LYMPH % 46.7 % (24.0-44.0); MEAN CORPUSCULAR HEMOGLOBIN 33.4 pg (27.0-33.0); MEAN CORPUSCULAR HGB CONC 32.7 g/dl (32.0-36.5); MEAN CORPUSCULAR VOLUME 102.2 fl (80.0-96.0); MONO # 0.3 10^3/uL (0.0-0.8); MONO % 6.2 % (2.0-8.0); NEUTROPHILS # 2.3 10^3/uL (1.5-8.5); NEUTROPHILS % 45.7 % (36.0-66.0); PLATELET COUNT, AUTOMATED 216 10^3/uL (150-450); RED BLOOD COUNT 3.14 10^6/uL (4.00-5.40)
[2021-07-13 14:22] LABS: ALBUMIN 2.1 GM/DL (3.2-5.2); ALT/SGPT 26 U/L (12-78); BILIRUBIN,TOTAL 0.5 MG/DL (0.2-1.0); BLOOD UREA NITROGEN 4 MG/DL (7-18); CALCIUM LEVEL 8.4 MG/DL (8.5-10.1); CARBON DIOXIDE LEVEL 27 MEQ/L (21-32); CHLORIDE LEVEL 110 MEQ/L (98-107); CREATININE FOR GFR 0.73 MG/DL (0.55-1.30); GLOMERULAR FILTRATION RATE > 60.0 (>58); GLUCOSE, FASTING 78 MG/DL (70-100); LIPASE 47 U/L (73-393); SODIUM LEVEL 142 MEQ/L (136-145)
[2021-07-13] MEDS ORDERED: ALPRAZolam 0.5 MG TAB PO ONE (15:20)
[2021-07-13] MEDS ORDERED: METOCLOPRAMIDE 10 MG TAB PO ONE (15:25)
[2021-07-13] MEDS ORDERED: ONDA4TAB6 PO (15:26)
[2021-07-13 15:53] VITALS: BP 130/76
== END 2021-07-13 16:06 | disposition home or self-care (01) ==
LOC: M ED 08:57
DX: R11.2 Nausea with vomiting, unspecified (principal); K29.70 Gastritis, unspecified, without bleeding; F50.9 Eating disorder, unspecified; Z98.84 Bariatric surgery status; F17.200 Nicotine dependence, unspecified, uncomplicated; Z88.1 Allergy status to other antibiotic agents; Z88.2 Allergy status to sulfonamides; Z88.8 Allergy status to other drugs, medicaments and biological substances; Z79.899 Other long term (current) drug therapy

== ENCOUNTER 2021-07-15 14:01 | Inpatient (IN) | payer MEDICARE, MEDICAID ==
[~2021-07-15] VITALS: Ht 165.1 cm; Wt 64.1 kg
[2021-07-15] MEDS ORDERED: NS 1,000 ML IV ONE ×2 (14:45→19:15)
[2021-07-15 17:32] LABS: BASO # 0.1 10^3/uL (0.0-0.2); BASO % 1.9 % (0.0-1.0); HEMATOCRIT 34.6 % (36.0-47.0); HEMOGLOBIN 11.5 g/dl (12.0-15.5); LYMPH # 2.2 10^3/uL (1.5-5.0); LYMPH % 50.9 % (24.0-44.0); MEAN CORPUSCULAR HEMOGLOBIN 33.7 pg (27.0-33.0); MEAN CORPUSCULAR HGB CONC 33.2 g/dl (32.0-36.5); MEAN CORPUSCULAR VOLUME 101.5 fl (80.0-96.0); MONO # 0.3 10^3/uL (0.0-0.8); MONO % 6.8 % (2.0-8.0); NEUTROPHILS # 1.7 10^3/uL (1.5-8.5); NEUTROPHILS % 39.9 % (36.0-66.0); PLATELET COUNT, AUTOMATED 207 10^3/uL (150-450); RED BLOOD COUNT 3.41 10^6/uL (4.00-5.40); WHITE BLOOD COUNT 4.3 10^3/uL (4.0-10.0)
[2021-07-15 17:54] LABS: ALT/SGPT 29 U/L (12-78); AMYLASE 21 U/L (25-115); BILIRUBIN,DIRECT 0.3 MG/DL (0.0-0.2); BILIRUBIN,TOTAL 0.7 MG/DL (0.2-1.0); BLOOD UREA NITROGEN 4 MG/DL (7-18); CALCIUM LEVEL 8.4 MG/DL (8.5-10.1); CARBON DIOXIDE LEVEL 25 MEQ/L (21-32); CHLORIDE LEVEL 107 MEQ/L (98-107); CREATININE FOR GFR 0.76 MG/DL (0.55-1.30); GLOMERULAR FILTRATION RATE > 60.0 (>58); GLUCOSE, FASTING 60 MG/DL (70-100); LIPASE 47 U/L (73-393); POTASSIUM SERUM 4.1 MEQ/L (3.5-5.1); SODIUM LEVEL 139 MEQ/L (136-145)
[2021-07-15] MEDS ORDERED: ISOVUE-370 76% 100ML VIAL As Ordered ONE (18:08)
[2021-07-15] MEDS ORDERED: DEXTROSE 50% 50 ML SYRINGE IV STA (18:22)
--- NOTE | 2021-07-15 18:55 | REPVR ---
PROCEDURE INFORMATION: Exam: CT Head Without Contrast Exam date and time: 07/15/2021 6:32 PM Age: 40 years old Clinical indication: Pain; Headache; Additional info: PARRA TECHNIQUE: Imaging protocol: Computed tomography of the head without contrast. Radiation optimization: All CT scans at this facility use at least one of these dose optimization techniques: automated exposure control; mA and/or kV adjustment per patient size (includes targeted exams where dose is matched to clinical indication); or iterative reconstruction. COMPARISON: CT Head without contrast 06/10/2021 3:06 PM FINDINGS: Brain: Normal. No hemorrhage. Unremarkable white matter. No mass effect. Cerebral ventricles: No ventriculomegaly. Paranasal sinuses: Visualized sinuses are unremarkable. No fluid levels. Mastoid air cells: Visualized mastoid air cells are well aerated. Bones/joints: Unremarkable. No acute fracture. Soft tissues: Unremarkable. Submandibular/Parotid glands: There is downward displacement of the pituitary gland secondary to a defect in the diaphragmatic sella consistent with the empty sella syndrome. IMPRESSION: 1. There is downward displacement of the pituitary gland secondary to a defect in the diaphragmatic sella consistent with the empty sella syndrome. 2. No acute intracranial findings. Electronically signed by: Leif Klein On 07/15/2021 18:54:51 PM
--- NOTE | 2021-07-15 19:07 | REPVR ---
PROCEDURE INFORMATION: Exam: CT Abdomen And Pelvis With Contrast Exam date and time: 07/15/2021 6:32 PM Age: 40 years old Clinical indication: Vomiting; Additional info: PARRA TECHNIQUE: Imaging protocol: Computed tomography of the abdomen and pelvis with contrast. Radiation optimization: All CT scans at this facility use at least one of these dose optimization techniques: automated exposure control; mA and/or kV adjustment per patient size (includes targeted exams where dose is matched to clinical indication); or iterative reconstruction. Contrast material: ISOVUE 370; Contrast volume: 100 ml; Contrast route: INTRAVENOUS (IV); COMPARISON: CT ABD PELVIS W/O CONTRAST 05/18/2021 4:36 PM FINDINGS: Liver: There is a diffuse decrease in hepatic parenchymal density, consistent with steatosis. Gallbladder and bile ducts: Gallbladder not visualized consistent with prior cholecystectomy. Pancreas: Normal. No ductal dilation. Spleen: Normal. No splenomegaly. Adrenal glands: Normal. No mass. Kidneys and ureters: Normal. No hydronephrosis. Stomach and bowel: This patient is status post gastric bypass surgery. Dilated loops of small bowel in the left upper quadrant. Appendix: No evidence of appendicitis. Intraperitoneal space: Multiple locules of free intraperitoneal air demonstrated in the upper anterior peritoneal cavity adjacent to the stomach and regional bowel. Vasculature: Unremarkable. No abdominal aortic aneurysm. Lymph nodes: Unremarkable. No enlarged lymph nodes. Urinary bladder: Unremarkable as visualized. Reproductive: There has been a hysterectomy. Bones/joints: Rib fractures right 10th and 11th ribs. Moderate central spinal stenosis L4-L5. Soft tissues: Unremarkable. IMPRESSION: 1. Rib fractures right 10th and 11th ribs. 2. There is a diffuse decrease in hepatic parenchymal density, consistent with steatosis. 3. This patient is status post gastric bypass surgery. 4. Multiple locules of free intraperitoneal air demonstrated in the upper anterior peritoneal cavity adjacent to the stomach and regional bowel. 5. There has been a hysterectomy. 6. Dilated loops of small bowel in the left upper quadrant. 7. Gallbladder not visualized consistent with prior cholecystectomy. Electronically signed by: Leif Klein On 07/15/2021 19:07:26 PM
[2021-07-15] MEDS ORDERED: PIPERACILLIN/TAZOBACTAM SOD 4.5 GM in D5W MINI-BAG PLUS 50 ML IV ONE (19:20)
[2021-07-15 21:00] LABS: RSV AMPLIFICATION NEGATIVE (NEGATIVE)
[2021-07-15] MEDS ORDERED: ONDANSETRON 4MG/2ML VIAL IV ONE (21:15)
[2021-07-15] MEDS ORDERED: GABA600T4 PO (22:21)
[2021-07-15] MEDS ORDERED: SALA1TAB PO (22:21)
[2021-07-15] MEDS ORDERED: HYDR200T3 PO (22:21)
[2021-07-15] MEDS ORDERED: TREL1AER INH (22:21)
[2021-07-15] MEDS ORDERED: PROAAER10 INH (22:21)
[2021-07-15] MEDS ORDERED: MONT10TA10 PO (22:21)
[2021-07-15] MEDS ORDERED: SYNT25TA PO (22:21)
[2021-07-15] MEDS ORDERED: METO10TA2 PO (22:21)
[2021-07-15] MEDS ORDERED: PANT40TA29 PO (22:21)
[2021-07-15] MEDS ORDERED: HOME MED LIST COMPLETE! XX SCH (22:25)
[2021-07-15] MEDS ORDERED: ALPR0.5T3 PO (22:43)
[2021-07-15] MEDS ORDERED: SIMETHICONE 80MG CHEW TAB PO PRN (23:10)
--- NOTE | 2021-07-15 23:11 | HPEPDOC ---
[facility] Medical History & Physical Date of Admission Jul 15, 2021 Date of Service: Jul 15, 2021 History and Physical CHIEF COMPLAINT: headache HISTORY OF PRESENT ILLNESS: 40-year-old female presents to the hospital for headache. Headache started 3 days ago it has been constant feels like a pressure behind her eyes she rates it as 10/10 at its worst but now better. She says she has a history of migraine headaches and this feels similar. She also complained to the emergency department that she was having a two-month history of abdominal bloating what feels like gas but no associated abdominal pain that started approximately 2 months ago around the same time she had intermittent nausea and vomiting which still persists. CT abdomen and pelvis obtained in the emergency department showed concerning findings of multiple locules of free intraperitoneal air adjacent to the stomach and regional bowel Dr. Gupta surgery was consulted from the ED who saw the patient and believes the CT is not consistent with his exam findings. She has no abdominal pain and no tenderness to palpation. He recommended nonoperative management and to continue to monitor the patient. Patient will be admitted for further management of intractable headache as well as ongoing nausea and vomiting possibly dehydration and abdominal bloating. PAST MEDICAL HISTORY: From chart review as well as from patient: Homelessness Intellectual disability Anxiety and depression History of suicidal ideation Bipolar disorder Bulimia disorder Fibromyalgia Migraine headaches Sjogren syndrome SLE Rheumatoid arthritis Hypertension Allergic rhinitis GERD Fatty liver from CT January 2017 PAST SURGICAL HISTORY: Tonsillectomy Hysterectomy Gastric bypass surgery SOCIAL HISTORY: Denies alcohol use Smokes on and off. Denies illicit drug use FAMILY HISTORY: Mother lung cancer 2 brothers alive Father alive she doesn't know much of his healthy lives in [place] ALLERGIES: Please see below. REVIEW OF SYSTEMS: 10 point review of systems complete all negative otherwise stated in HPI HOME MEDICATIONS: Please see below. PHYSICAL EXAMINATION: Constitutional: Awake and alert, in no apparent distress ENT: Sclera are clear. Mucosa is moist. Respiratory: Lungs CTA bilaterally. No respiratory distress. Cardiovascular: RRR S1 and S2 are normal, no murmur Gastrointestinal: Abdomen is soft, non distended, non tender to gentle and deep palpation, no rebound tenderness, BS present. Obese Musculoskeletal: No edema. Neurologic: No focal neurological deficit. Mental Status: A&O x3, normal affect answering all questions appropriately Skin: Warm, dry, LABORATORY DATA: See below. IMAGING: None MICROBIOLOGY: Please see below. Assessment/Plan # Headache CT shows to acute intracranial findings. PARRA could be from dehydration 2/2 N/V. Tylenol PRN for headache. Triptan if headache doesn't resolve with Tylenol alone. # N/V ongoing for past 2 months. No n/v currently. Anti-emetrics IV PRN. IVFs. Fu H Pylori testing IV Protonix. # Abdominal bloating CT initially showing concerning findings "Multiple locules of free intraperitoneal air demonstrated in the upper anterior peritoneal cavity adjacent to the stomach and regional bowel." Evaluated in the ED by surgery Dr Gupta. Physical exam completely benign. Continue to monitor. Lactate 1.1 Bloating is not acute and has been ongoing also for pat several months unchanged. Consult surgery if symptoms worsen or if positive physical exam findings develop. Simethicone, Protonix, Continue medications for chronic medical problems A Youse[facility] Hospitalist Vital Signs Vital Signs Date Time Temp Pulse Resp B/P (MAP) Pulse Ox O2 Delivery O2 Flow Rate FiO2 07/15/21 22:16 98 16 112/67 (82) 98 07/15/21 15:26 98.2 Room Air Laboratory Data Labs 24H Laboratory Tests 2 07/15/21 14:43: Immature Granulocyte % (Auto) 0.5, Neutrophils (%) (Auto) 39.9, Lymphocytes (%) (Auto) 50.9H, Monocytes (%) (Auto) 6.8, Eosinophils (%) (Auto) 0.0, Basophils (%) (Auto) 1.9H, Neutrophils # (Auto) 1.7, Lymphocytes # (Auto) 2.2, Monocytes # (Auto) 0.3, Eosinophils # (Auto) 0.0, Basophils # (Auto) 0.1, Nucleated Red Blood Cells % (auto) 0.0, Anion Gap 7L, Glomerular Filtration Rate > 60.0, Lactic Acid Level 1.1, Calcium Level 8.4L, Total Bilirubin 0.7, Direct Bilirubin 0.3H, Aspartate Amino Transf (AST/SGOT) 42H, Alanine Aminotransferase (ALT/SGPT) 29, Alkaline Phosphatase 111, Total Protein 5.0L, Albumin 2.0L, Albumin/Globulin Ratio 0.7L, Amylase Level 21L, Lipase 47L 07/15/21 20:09: Coronavirus (COVID-19)(PCR) NEGATIVE, Influenza Type A (RT-PCR) NEGATIVE, Influenza Type B (RT-PCR) NEGATIVE, Respiratory Syncytial Virus (PCR) NEGATIVE CBC/BMP Laboratory Tests 07/15/21 14:43 Microbiology Microbiology 07/15/21 Blood Culture, Received Pending Home Medications Scheduled Divalproex Sodium (Divalproex Sodium) 250 Mg Tablet.dr, 250 MG PO BID Duloxetine Hcl (Cymbalta) 60 Mg Capsule.dr, 120 MG PO QHS Fluticasone/Umeclidin/Vilanter (Trelegy Ellipta 100-62.5-25) 1 Each Blst.w.dev, 1 PUFF INH DAILY Gabapentin (Gabapentin) 600 Mg Tablet, 600 MG PO TID Hydroxychloroquine Sulfate (Hydroxychloroquine Sulfate) 200 Mg Tablet, 200 MG PO BID Levothyroxine Sodium (Synthroid) 25 Mcg Tablet, 25 MCG PO DAILY Methotrexate Sodium (Methotrexate) 2.5 Mg Tablet, 7.5 MG PO QWEEK MONDAYS Montelukast Sodium (Montelukast Sodium) 10 Mg Tablet, 10 MG PO QHS Pantoprazole Sodium (Pantoprazole Sodium) 40 Mg Tablet.dr, 40 MG PO DAILY Pilocarpine HCl (Salagen) 5 Mg Tablet, 5 MG PO TID Potassium Chloride (Potassium Chloride) 10 Meq Capsule.er, 10 MEQ PO DAILY Zolpidem Tartrate (Zolpidem Tartrate) 10 Mg Tablet, 10 MG PO QHS Scheduled PRN Albuterol Sulfate (Proair Hfa) 8.5 Gm Hfa.aer.ad, 2 PUFF INH Q4H PRN for SHORTNESS OF BREATH Alprazolam (Alprazolam) 0.5 Mg Tablet, 0.5 MG PO BID PRN for ANXIETY Metoclopramide HCl (Metoclopramide HCl) 10 Mg Tablet, 10 MG PO QID PRN for NAUSEA OR VOMITING Sumatriptan Succinate (Sumatriptan Succinate) 50 Mg Tablet, 50 MG PO BID PRN for MIGRAINE Allergies Coded Allergies: Sulfa (Sulfonamide Antibiotics) (Verified Allergy, Intermediate, RASH AND HIVES, 05/18/21) buspirone (Verified Allergy, Intermediate, hives, 05/18/21) cephalexin (Verified Allergy, Intermediate, hives, 05/18/21) erythromycin base (Verified Allergy, Intermediate, hives/rash, 05/18/21) latex (Verified Allergy, Intermediate, hives, 05/18/21) levofloxacin (Verified Allergy, Intermediate, hives/rash, 05/18/21) lisinopril (Verified Allergy, Intermediate, hives/rash, 05/18/21) sulfamethoxazole (Verified Allergy, Intermediate, hives/rash, 05/18/21) eszopiclone (Verified Allergy, Mild, rash, 05/18/21) omeprazole (Verified Allergy, Unknown, 05/18/21) bupropion (Verified Adverse Reaction, Mild, nausea, 05/18/21) trimethoprim (Verified Adverse Reaction, Mild, nausea/vomitting, 05/18/21) CHAPO ALCALA MD Jul 15, 2021 23:11
[2021-07-15] MEDS ORDERED: ALBUTEROL 90 MCG/ACT 8GM HFA INHALER INH PRN (23:15)
[2021-07-16] VITALS: BP 126/88
[2021-07-16] MEDS: DULoxetine 30 MG CAP (CYMBALTA) PO SCH ×2 (00:41→21:12)
[2021-07-16] MEDS: HYDROXYCHLOROQUINE 200 MG TAB PO SCH ×3 (00:42→21:13)
[2021-07-16] MEDS: NS 1,000 ML IV SCH ×3 (00:42→22:52)
[2021-07-16] MEDS: METOCLOPRAMIDE 10 MG TAB PO PRN ×2 (00:42→07:59)
[2021-07-16] MEDS: MONTELUKAST 10 MG TAB PO SCH ×2 (00:42→21:12)
[2021-07-16] MEDS: GABAPENTIN 300 MG CAP PO SCH ×4 (00:42→21:12)
[2021-07-16] MEDS: DIVALPROEX 250 MG TAB PO SCH ×3 (00:42→21:12)
[2021-07-16 06:00] VITALS: BP 128/90
[2021-07-16] MEDS: LEVOTHYROXINE 25MCG TABLET (0.025MG) PO SCH (06:01)
[2021-07-16 06:12] LABS: HEMATOCRIT 29.4 % (36.0-47.0); HEMOGLOBIN 9.6 g/dl (12.0-15.5); MEAN CORPUSCULAR HEMOGLOBIN 33.2 pg (27.0-33.0); MEAN CORPUSCULAR HGB CONC 32.7 g/dl (32.0-36.5); MEAN CORPUSCULAR VOLUME 101.7 fl (80.0-96.0); PLATELET COUNT, AUTOMATED 168 10^3/uL (150-450); RED BLOOD COUNT 2.89 10^6/uL (4.00-5.40); WHITE BLOOD COUNT 4.3 10^3/uL (4.0-10.0)
[2021-07-16 06:42] LABS: ALBUMIN 1.7 GM/DL (3.2-5.2); ALT/SGPT 22 U/L (12-78); BILIRUBIN,TOTAL 0.6 MG/DL (0.2-1.0); BLOOD UREA NITROGEN 4 MG/DL (7-18); CALCIUM LEVEL 7.6 MG/DL (8.5-10.1); CARBON DIOXIDE LEVEL 24 MEQ/L (21-32); CHLORIDE LEVEL 110 MEQ/L (98-107); CREATININE FOR GFR 0.73 MG/DL (0.55-1.30); GLOMERULAR FILTRATION RATE > 60.0 (>58); GLUCOSE, FASTING 64 MG/DL (70-100); MAGNESIUM LEVEL 1.9 MG/DL (1.8-2.4); POTASSIUM SERUM 3.8 MEQ/L (3.5-5.1); SODIUM LEVEL 140 MEQ/L (136-145)
--- NOTE | 2021-07-16 07:00 | CR ---
CONSULTATION DATE: 07/15/2021 TIME: Approximately 8 p.m. REASON FOR CONSULTATION: Abnormal CT finding of the abdomen. HISTORY OF PRESENT ILLNESS: The patient is a 40-year-old woman with a long history of multiple medical problems. She has a history apparently of bipolar disorder. and has had diagnoses of both anorexia and bulimia. She underwent a gastric bypass some years ago with a subsequent revision. She has a history of fibromyalgia, migraine headaches, hypertension and hypercholesterolemia, COPD, asthma, rheumatoid arthritis, anemia. Her past surgical history includes a cholecystectomy. She has had a hysterectomy. She has had a Martinez-en-Y gastric bypass some eight years ago and two years ago, underwent a revision of her pouch for what she reports was an ulcer. These gastric procedures were in [place]. She presented to the emergency department on the 15 of July complaining of headache. She underwent evaluation by Dr. Gong to include some laboratory studies. The patient had reported a history of some nausea and vomiting and diarrhea and a CT scan of the abdomen and pelvis was obtained which showed an abnormality suggestive of some small bubbles of free air in the upper abdomen. I was consulted to evaluate the patient. ALLERGIES: Numerous and as listed in her medical record. MEDICATIONS: Included Zofran 4 mg every 6-8 hours as needed for nausea or vomiting, Methotrexate 7.5 mg p.o. weekly on Mondays, Duloxetine 120 mg by mouth every evening, potassium chloride 10 mEq by mouth twice daily, Zolpidem 10 mg by mouth daily at bedtime, Tylenol 500 mg p.o. every six hours as needed for pain, Sumatriptan 50 mg p.o. by mouth every 12 hours as needed for migraine and Divalproex 250 mg p.o. daily at bedtime. PAST SURGICAL HISTORY: As previously noted in the history of the present illness. PAST MEDICAL HISTORY: Also noted in the history of the present illness. FAMILY HISTORY: Noncontributory. REVIEW OF SYSTEMS: Shows the patient has been reporting nausea and vomiting daily for the last several months. She reports she has also been having some diarrhea daily for the last several months. She reports she has been having difficulty eating and has lost some weight. PHYSICAL EXAMINATION: General: Reveals a somewhat pale woman lying quietly on the ER stretcher. She looks significantly older than her stated age of 40 years. Vital signs: Her most recent vital signs showed her to be afebrile with a temperature of 98.2. Neuro: She is alert and appropriate and cooperative for the exam. Skin: Warm and dry. HEENT: Sclerae are anicteric. Mucous membranes appear moist. Neck: Supple. Heart: Shows a regular rhythm in the 70s. Lungs: Clear breath sounds bilaterally. Abdomen: Flat. She has no evident hernia. There are some small scars consistent with prior surgery. She had some faint bowel sounds throughout. There is no tympany to percussion. There is no tenderness to percussion throughout the abdomen. Palpation reveals the abdomen to be soft throughout without appreciable mass. There is no significant tenderness identified. There is no tenderness to abdominal shake. Extremities: Palpable radial and pedal pulses with no peripheral edema. LABORATORY STUDIES: Show a white count of 4, hemoglobin 12, hematocrit 35 and a platelet count 207,000. Her differential count shows 40% neutrophils, 51% lymphocytes and 7% monocytes. Chemistry profile shows normal electrolytes with a BUN of 4, creatinine 0.7 and a glucose of 60. Her liver function tests showed a total bilirubin of 0.7, direct of 0.3, AST 42, ALT 29 and alk phos of 111. Total protein is only 5.0 with an albumin of 2.0. Amylase and lipase are normal. A lactic acid was 1.1. The patient had a CT scan of the head that was interpreted by the radiologist as showing no acute intracranial findings. He describes downward displacement of the pituitary gland consistent with the empty sella syndrome. A CT scan of the abdomen and pelvis was also obtained though I am not sure of its relation to her admitting diagnosis. The radiologist interpreted the abdominal scan as showing some postoperative changes consistent with cholecystectomy, hysterectomy and gastric bypass. There was some steatosis of the liver noted. Rib fractures were noted of the right tenth and eleventh ribs though I note these on a comparison study from May. The radiologist noted what he described as multiple locules of free intraperitoneal air in the upper anterior abdomen adjacent to the stomach. I reviewed the images thoroughly. There are a couple of small air bubbles, one high in the abdomen medially and several smaller areas adjacent to the region of the gastrojejunal anastomosis. There is no free fluid in the abdomen and there are no other areas of free air identified. It may be that much of the air in the upper abdomen laterally near the left lobe of the liver and adjacent to small bowel loops is actually contained within loops of small bowel in this area. There is at least one area which is the most medial site which may well represent a small walled off bubble of air. IMPRESSION: Possible small bubbles of free air in the upper abdomen currently asymptomatic and with a benign abdominal exam. The patient reports that she has had an ulcer in her gastric pouch which required a revision two years ago. It is certainly possible that she has had a recurrence of her ulcer possibly with a contained perforation. She currently has no evident abdominal tenderness and her labs show a normal white blood cell count and differential. RECOMMENDATIONS: Certainly the patient does not require urgent surgical intervention at this time. She should remain on a proton pump inhibitor for protection of her gastric bypass. It would not be unreasonable for her to undergo further evaluation of her gastric pouch or gastrojejunal anastomosis electively to rule out the possibility of some sort of chronic contained perforation. She has a primary provider that she could follow up with regarding any appropriate testing.
[2021-07-16] MEDS: ENOXAPARIN 40MG/0.4ML SYRINGE (J1650 PER 10MG) SC SCH (07:58)
[2021-07-16] MEDS: POTASSIUM CHLORIDE 10 MEQ SR TABLET PO SCH (07:58)
[2021-07-16] MEDS ORDERED: PANTOPRAZOLE 40MG VIAL (C9113 PER 1) IV SCH (09:00)
[2021-07-16] MEDS ORDERED: MORPHINE 2 MG/ML 1ML VIAL (J2270) IV ONE (10:05)
--- NOTE | 2021-07-16 12:05 | IPN ---
PROGRESS NOTE DATE: 07/16/2021 SUBJECTIVE: Patient complains of intractable nausea, epigastric abdominal pain, band-like sensation without radiation described as achy and cramping, rated a 7 out of 10 this morning requesting IV pain medications and IV antiemetics. Patient has had no vomiting, no fevers or chills, shortness of breath, chest pain, pressure or tightness overnight, no diarrhea. She is passing flatus. OBJECTIVE: VITAL SIGNS: Temperature is 98.4, pulse is 87, respiratory rate is 20, blood pressure is 128/90, 100% on room air. GENERAL: Patient is awake, alert and oriented to person, place and time, answering questions appropriately. No pallor, icterus or jaundice. NECK: No JVD, thyromegaly or cervical lymphadenopathy. HEENT: Moist mucous membranes. LUNGS: Clear to auscultation. No wheezing, rales or rhonchi. HEART: S1 and S2, sinus rhythm. ABDOMEN: Soft, nondistended, obese abdomen, slightly tender in the epigastric area, no rebound or guarding. EXTREMITIES: No cyanosis, clubbing or pitting edema. LABORATORY DATA: Microbiology and imaging studies have been reviewed. ASSESSMENT AND PLAN: This is a 40-year-old female with a history of anorexia, bulimia, gastric bypass surgery, fibromyalgia, migraines, hypertension, hypercholesterolemia, COPD, asthma, rheumatoid arthritis, and anemia with prior cholecystectomy and Martinez-en-Y bypass surgery eight years ago with revision two years ago secondary to possible ulcer done at [place], presented July 15 with complaints of headache, nausea, vomiting and diarrhea. CT of the abdomen and pelvis suggested some small bubbles of free air in the upper abdomen, evaluated by general surgeon, Dr. Brendan Gupta. Differential diagnosis includes recurrence of her ulcer with possible contained perforation but no significant abdominal signs and no white count. IMPRESSION: 1. Abdominal pain with abnormal CT of abdomen and pelvis with questionable free air. The patient was evaluated by general surgeon, Dr. Gupta. He currently did not believe that there is any surgical intervention required at this time. Will obtain upper GI series this morning, supportive care with NPO status, IV fluids, IV Morphine and antiemetics, Protonix 40 IV b.i.d. 2. History of intellectual disability and homelessness. 3. Anxiety and depression. Continue on home medications. 4. Bipolar disorder. Continue home medications. 5. History of SLE, rheumatoid arthritis and Sjgren's, continue home medications. 6. Hypertension, controlled. 7. GERD. 8. History of gastric bypass surgery. 9. Possible ulcer, on PPI.
[2021-07-16] MEDS: METOCLOPRAMIDE INJ 10MG/2ML VIAL (J2765 PER 1) IV SCH ×2 (13:40→21:13)
[2021-07-16 14:00] VITALS: BP 131/89
[2021-07-16] MEDS ORDERED: SCOPOLAMINE 1MG TRANSDERMAL PATCH TOP SCH (18:00)
[2021-07-16] MEDS: ALPRAZolam 0.5 MG TAB PO PRN (18:06)
[2021-07-16] MEDS: zolPIDEM TARTRATE 5 MG TAB PO PRN (21:12)
[2021-07-16] MEDS: PANTOPRAZOLE 40MG VIAL (C9113 PER 1) IV SCH (21:13)
[2021-07-16 22:00] VITALS: BP 132/90
[2021-07-17] MEDS: METOCLOPRAMIDE INJ 10MG/2ML VIAL (J2765 PER 1) IV SCH ×4 (01:33→20:26)
[2021-07-17 06:00] VITALS: BP 131/91
[2021-07-17] MEDS: SUCRALFATE SUSP 1GM/10ML UD PO SCH ×3 (06:00→17:32)
[2021-07-17] MEDS: LEVOTHYROXINE 25MCG TABLET (0.025MG) PO SCH (06:02)
[2021-07-17 06:44] LABS: BASO # 0.1 10^3/uL (0.0-0.2); HEMATOCRIT 28.7 % (36.0-47.0); HEMOGLOBIN 9.3 g/dl (12.0-15.5); LYMPH # 2.2 10^3/uL (1.5-5.0); LYMPH % 59.6 % (24.0-44.0); MEAN CORPUSCULAR HEMOGLOBIN 33.5 pg (27.0-33.0); MEAN CORPUSCULAR HGB CONC 32.4 g/dl (32.0-36.5); MEAN CORPUSCULAR VOLUME 103.2 fl (80.0-96.0); MONO # 0.3 10^3/uL (0.0-0.8); MONO % 8.2 % (2.0-8.0); NEUTROPHILS # 1.1 10^3/uL (1.5-8.5); NEUTROPHILS % 28.9 % (36.0-66.0); PLATELET COUNT, AUTOMATED 164 10^3/uL (150-450); RED BLOOD COUNT 2.78 10^6/uL (4.00-5.40); WHITE BLOOD COUNT 3.6 10^3/uL (4.0-10.0)
[2021-07-17] MEDS: MEROPENEM INJ 1 GM in IV 1 EA IV SCH ×3 (06:57→21:44)
[2021-07-17] MEDS: GABAPENTIN 300 MG CAP PO SCH ×3 (08:16→20:26)
[2021-07-17] MEDS: ALPRAZolam 0.5 MG TAB PO PRN ×2 (08:16→22:23)
[2021-07-17] MEDS: ACETAMINOPHEN TAB 650MG DOSE (2X325MG) PO PRN ×2 (08:16→20:40)
[2021-07-17] MEDS: HYDROXYCHLOROQUINE 200 MG TAB PO SCH ×2 (08:16→20:26)
[2021-07-17 08:17] LABS: ERYTHROCYTE SEDIMENTATION RATE 2 mm/hr (0-20)
[2021-07-17] MEDS: DIVALPROEX 250 MG TAB PO SCH ×2 (08:17→20:26)
[2021-07-17] MEDS: PANTOPRAZOLE 40MG VIAL (C9113 PER 1) IV SCH ×2 (08:17→20:26)
[2021-07-17] MEDS: POTASSIUM CHLORIDE 10 MEQ SR TABLET PO SCH (08:17)
[2021-07-17] MEDS: ENOXAPARIN 40MG/0.4ML SYRINGE (J1650 PER 10MG) SC SCH (08:17)
[2021-07-17 08:31] LABS: ALBUMIN 1.5 GM/DL (3.2-5.2); ALT/SGPT 21 U/L (12-78); BILIRUBIN,TOTAL 0.5 MG/DL (0.2-1.0); BLOOD UREA NITROGEN 3 MG/DL (7-18); CALCIUM LEVEL 7.5 MG/DL (8.5-10.1); CARBON DIOXIDE LEVEL 24 MEQ/L (21-32); CHLORIDE LEVEL 113 MEQ/L (98-107); CREATININE FOR GFR 0.54 MG/DL (0.55-1.30); GLOMERULAR FILTRATION RATE > 60.0 (>58); GLUCOSE, FASTING 56 MG/DL (70-100); MAGNESIUM LEVEL 1.7 MG/DL (1.8-2.4); POTASSIUM SERUM 3.6 MEQ/L (3.5-5.1); SODIUM LEVEL 143 MEQ/L (136-145); TOTAL PROTEIN 3.8 GM/DL (6.4-8.2)
--- NOTE | 2021-07-17 10:15 | IPN ---
"| PROGRESS NOTE DATE: 07/17/2021 SUBJECTIVE: Patient complaints of epigastric abdominal pain without any radiation, rating it at 7 out of 10 on a pain scale. No fever, chills, nausea, vomiting overnight. She is NPO for upper GI series this morning. Urine output has been adequate. No complaints of chest pain, pressure, tightness or shortness of breath. OBJECTIVE: Temperature 97.9, pulse 83, respiratory 19, blood pressure 131/91, 100% on room air. Generally awake, alert, oriented to person, place and time. Poor dentition. No jugular venous distension (JVD), thyromegaly or cervical lymphadenopathy. Dry mucous membranes. Lungs are clear to auscultation. No wheezing, rales or rhonchi. Heart: S1, S2, sinus rhythm. Abdomen is soft, nondistended. Epigastric tenderness. No rebound or guarding. Positive bowel sounds in four quadrants. Extremities: No cyanosis, clubbing or any pitting edema. LABORATORY DATA: Reviewed. ASSESSMENT AND PLAN: This is a [id number] prior history of anorexia, gastric bypass bulimia, fibromyalgia, migraines, hypertension, hypercholesterolemia, chronic obstructive pulmonary disease (COPD), asthma, rheumatoid arthritis, anemia and admitted July 15 due to complaints of nausea, vomiting, diarrhea. CT abdomen and pelvis showed small air bubbles in the upper abdomen. IMPRESSION: Abdominal pain; rule out perforation with small free air bubbles in the upper abdomen; evaluate by Dr. Gupta; with no recommendation for emergent surgical intervention. Patient is on supportive care, currently NPO on IV fluids, IV meropenem and Protonix IV twice a day and Carafate. Helicobacter pylori antibodies still pending. Will repeat an upper GI series today to further evaluate the free air. History of intellectual disability, homelessness, anxiety, depression, bipolar disorder. Continue home medications. History of systemic lupus erythematosus (SLE), rheumatoid arthritis, Sjogren's; on home meds. Hypertension, controlled. Gastroesophageal reflux disease (GERD) on PPI twice a day. History of gastric bypass surgery with possible contained perforation and possible ulcer, on PPI, IV antibiotics, check lactic acid. ESR, CRP. Patient's procalcitonin was 71 yesterday. MTDD"
[2021-07-17] MEDS ORDERED: GASTROGRAFIN SOLUTION 30ML (Q9963) As Ordered ONE (10:36)
--- NOTE | 2021-07-17 11:23 | REP ---
INDICATION: upright kub. abd pain microbubbles on ct abd r/o free air COMPARISON: None. TECHNIQUE: Supine and upright views of the abdomen and pelvis. FINDINGS: The suspicious possible free air identified on recent CT cannot be confirmed by upright radiograph images. The bowel gas pattern self is nonspecific. Close clinical observation and possible repeat CT of the abdomen may be warranted if necessary. IMPRESSION: No definite free air. As above. <Electronically signed by Jony Ley > 07/17/21 111
[2021-07-17 14:00] VITALS: BP 122/82
[2021-07-17] MEDS: NS 1,000 ML IV SCH (14:43)
--- NOTE | 2021-07-17 17:51 | REP ---
INDICATION: free air, evaluate for perforation. COMPARISON: None TECHNIQUE: This procedure was performed by Daniella Freeman [facility], under the direct supervision of Dr. Gong. Images were reviewed with Dr. Gong prior to dictation. Because the patient is status post Martinez-en-Y surgery a 50/50 mix of Gastrografin and water was given in the erect position as well as in the prone oblique position in order to perform a single contrast upper GI examination. The patient was only able to ingest approximately 150 mL of Gastrografin and water FINDINGS: The oral and pharyngeal stages of deglutition were unremarkable. Esophageal transport is prompt and efficient and there is no evidence of esophagitis, stricture, or mucosal ring. There is no evidence of a hiatal hernia. No gastroesophageal reflux was visualized. The remaining stomach shearer are normally outlined. There is free flow of contrast through the anastomosis into the small intestine. No stricture or ulcer is visualized. The visualized portion of the proximal small bowel appears normal in course and caliber. The patient was unable to ingest any more of the 50/ 50 contrast mix. The contrast was followed through the small bowel to the level of the terminal ileum. Small bowel transit time is approximately 40 minutes. During fluoroscopy gentle palpation shows all loops are freely movable and pliable. There are no fixture angulated loops. The small bowel mucosal pattern is normal in course and caliber. There is no transition to suggest a partial small bowel obstruction. Spot filming of the terminal ileum shows it to be unremarkable. IMPRESSION: No perforation or leak was visualized during this exam. 0.4 minutes of fluoroscopy time was utilized for this procedure. Some fluoroscopic images are performed with last image hold technology. These images require no additional radiation. <Electronically signed by Daniella Freeman > 07/17/21 1602 <Electronically signed by Dawson Gong > 07/17/21 [id number]
[2021-07-17] MEDS: MONTELUKAST 10 MG TAB PO SCH (20:26)
[2021-07-17] MEDS: DULoxetine 30 MG CAP (CYMBALTA) PO SCH (20:26)
[2021-07-17] MEDS: zolPIDEM TARTRATE 5 MG TAB PO PRN (20:40)
[2021-07-17 22:00] VITALS: BP 128/74
[2021-07-18] MEDS: SUCRALFATE SUSP 1GM/10ML UD PO SCH ×4 (00:08→17:09)
[2021-07-18] MEDS: METOCLOPRAMIDE INJ 10MG/2ML VIAL (J2765 PER 1) IV SCH ×3 (01:10→13:49)
[2021-07-18] MEDS: NS 1,000 ML IV SCH (01:13)
[2021-07-18 06:00] VITALS: BP 124/83
[2021-07-18] MEDS: LEVOTHYROXINE 25MCG TABLET (0.025MG) PO SCH (06:14)
[2021-07-18] MEDS: MEROPENEM INJ 1 GM in IV 1 EA IV SCH ×3 (06:14→22:09)
[2021-07-18] MEDS ORDERED: DEXTROSE 50% 50 ML SYRINGE IV PRN (06:25)
[2021-07-18] MEDS ORDERED: GLUCOSE 4GM CHEW TABLET PO PRN (06:25)
[2021-07-18] MEDS ORDERED: GLUCAGON INJ 1MG VIAL SC PRN (06:25)
[2021-07-18] MEDS ORDERED: D5W/0.45% SODIUM CHLORIDE 1,000 ML IV SCH (06:30)
[2021-07-18] MEDS ORDERED: ISOVUE-370 76% 100ML VIAL As Ordered ONE (06:35)
[2021-07-18 06:49] LABS: HEMATOCRIT 27.9 % (36.0-47.0); MEAN CORPUSCULAR HEMOGLOBIN 32.7 pg (27.0-33.0); MEAN CORPUSCULAR HGB CONC 32.3 g/dl (32.0-36.5); MEAN CORPUSCULAR VOLUME 101.5 fl (80.0-96.0); PLATELET COUNT, AUTOMATED 157 10^3/uL (150-450); RED BLOOD COUNT 2.75 10^6/uL (4.00-5.40); WHITE BLOOD COUNT 3.4 10^3/uL (4.0-10.0)
[2021-07-18 07:21] LABS: ALBUMIN 1.6 GM/DL (3.2-5.2); ALT/SGPT 20 U/L (12-78); BILIRUBIN,TOTAL 0.5 MG/DL (0.2-1.0); BLOOD UREA NITROGEN 4 MG/DL (7-18); CALCIUM LEVEL 7.4 MG/DL (8.5-10.1); CARBON DIOXIDE LEVEL 24 MEQ/L (21-32); CHLORIDE LEVEL 114 MEQ/L (98-107); CREATININE FOR GFR 0.63 MG/DL (0.55-1.30); GLOMERULAR FILTRATION RATE > 60.0 (>58); GLUCOSE, FASTING 86 MG/DL (70-100); MAGNESIUM LEVEL 1.7 MG/DL (1.8-2.4); POTASSIUM SERUM 3.2 MEQ/L (3.5-5.1); SODIUM LEVEL 143 MEQ/L (136-145); TOTAL PROTEIN 3.8 GM/DL (6.4-8.2)
[2021-07-18] MEDS: ACETAMINOPHEN TAB 650MG DOSE (2X325MG) PO PRN ×2 (07:32→23:03)
[2021-07-18] MEDS ORDERED: AUGM875T28 PO (07:49)
[2021-07-18] MEDS ORDERED: CARA1TAB6 PO (07:49)
[2021-07-18] MEDS ORDERED: ZOFR4TAB16 PO (07:50)
--- NOTE | 2021-07-18 07:53 | REPVR ---
PROCEDURE INFORMATION: Exam: CT Abdomen And Pelvis With Contrast Exam date and time: 07/18/2021 6:24 AM Age: 41 years old Clinical indication: Vomiting; Additional info: Abd pain TECHNIQUE: Imaging protocol: Computed tomography of the abdomen and pelvis with contrast. Radiation optimization: All CT scans at this facility use at least one of these dose optimization techniques: automated exposure control; mA and/or kV adjustment per patient size (includes targeted exams where dose is matched to clinical indication); or iterative reconstruction. Contrast material: ISO; Contrast volume: 100 ml; Contrast route: INTRAVENOUS (IV); COMPARISON: CT ABD/PEL W/IV CONTRAST ONLY 07/15/2021 6:21 PM FINDINGS: Lungs: Minimal pleuroparenchymal scarring lower lungs. Pleural spaces: Minimal right effusion. Heart: Minimal pericardial effusion. Liver: Fatty infiltration of the liver. Gallbladder and bile ducts: Cholecystectomy. Pancreas: Normal. No ductal dilation. Spleen: Normal. No splenomegaly. Adrenal glands: Normal. No mass. Kidneys and ureters: Normal. No hydronephrosis. Stomach and bowel: Postoperative changes of the stomach. Interposition of bowel likely: Overlies the stomach in the upper mid abdomen which may reflected previously described collection of air findings. The stomach is currently nondistended. Oral contrast media extends to the colon. Partial fluid-filled small bowel diffusely. There is slight accentuation of the mucosa of small bowel segments left upper quadrant. Appendix: The appendix is not definitely visualized. Intraperitoneal space: Small left inguinal hernia containing fatty omentum. Vasculature: Unremarkable. No abdominal aortic aneurysm. Lymph nodes: Unremarkable. No enlarged lymph nodes. Urinary bladder: Unremarkable as visualized. Reproductive: Postoperative hysterectomy. Bones/joints: Unremarkable. No acute fracture. Soft tissues: Surgical changes of right inguinal soft tissues superficially. Few collections soft tissue gas within the abdominal wall anteriorly. Correlate for medication injection site. IMPRESSION: 1. Small bowel ileus or enteritis. 2. Postsurgical changes at the stomach and right inguinal soft tissues. 3. Fatty infiltration of the liver. 4. Minimal pericardial effusion. Electronically signed by: Teresa Godwin On 07/18/2021 07:53:18 AM
[2021-07-18] MEDS ORDERED: PERC5TAB12 PO (07:56)
[2021-07-18] MEDS ORDERED: POTASSIUM CHLORIDE 10 MEQ SR TABLET PO ONE (08:00)
[2021-07-18] MEDS ORDERED: MAG SULF 1GM/100ML (MAG RUN) 1 GM in IV 1 EA IV ONE (08:00)
[2021-07-18] MEDS: HYDROXYCHLOROQUINE 200 MG TAB PO SCH ×2 (08:05→20:49)
[2021-07-18] MEDS: PANTOPRAZOLE 40MG VIAL (C9113 PER 1) IV SCH ×2 (08:05→20:49)
[2021-07-18] MEDS: GABAPENTIN 300 MG CAP PO SCH ×3 (08:05→20:48)
[2021-07-18] MEDS: ENOXAPARIN 40MG/0.4ML SYRINGE (J1650 PER 10MG) SC SCH (08:06)
[2021-07-18] MEDS: DIVALPROEX 250 MG TAB PO SCH ×2 (08:06→20:49)
[2021-07-18 13:26] LABS: MAGNESIUM LEVEL 2.1 MG/DL (1.8-2.4); POTASSIUM SERUM 3.6 MEQ/L (3.5-5.1)
[2021-07-18] MEDS ORDERED: NALOXONE INJ 0.4MG/1ML VIAL (J2310 PER 1MG) IV PRN (13:50)
[2021-07-18] MEDS ORDERED: PERCOCET 5MG/325MG TAB PO ONE (13:50)
[2021-07-18] MEDS ORDERED: PERCOCET 5MG/325MG TAB PO PRN (13:50)
[2021-07-18 14:00] VITALS: BP 139/99
--- NOTE | 2021-07-18 15:20 | IPN ---
PROGRESS NOTE DATE: 07/18/2021 SUBJECTIVE: Patient has less abdominal pain, was tolerating her crackers and peanut butter snack yesterday without any vomiting. No fever or chills. Epigastric pain has improved. Upper GI series shows no leakage or perforation. Patient's diet has been advanced to a soft mechanical diet this morning. She complains of no nausea or vomiting. OBJECTIVE: Vital signs: Temperature 98.1, pulse 81, respiratory rate 16, blood pressure 124/83, 100% on room air. Lungs: Clear to auscultation, no wheezes, rhonchi or rales. Heart: S1 and S2 sinus rhythm. Abdomen: Soft, slightly tender epigastric region, no guarding or rebound, positive bowel sounds times 4 quadrants, no distention. Extremities: No cyanosis, clubbing or pitting edema. LABORATORY DATA: Laboratory data has been reviewed. Notable for leukopenia, slight anemia not requiring RBC transfusion, hypokalemia with potassium of 3.2 and magnesium of 1.7. Microbiology negative. IMAGING STUDIES: Reviewed. ASSESSMENT: This 41-year-old female admitted on 06/18/2021 with prior history of anorexia, gastric bypass, bulimia, fibromyalgia, migraines, hypertension, hypercholesterolemia, COPD, asthma, rheumatoid arthritis and anemia with nausea, vomiting, diarrhea and prior history Martinez-en-Y gastric bypass surgery was found to have multiple air bubbles in the upper abdomen concerning for free air. This was evaluated by general surgeon Dr. Gupta who felt that the patient did not require any surgical intervention. IMPRESSIONS/PLAN: 1. History of gastric bypass surgery with possible contained perforation with multiple air bubbles noted in the upper abdomen and possible ulcer at the gastrojejunostomy site: Patient is on PPI, Carafate, advanced on diet. Upper GI series was negative for perforation or leak. We will repeat CT abdomen and pelvis today. Her procalcitonin was 71. Patient was started on meropenem due to multiple allergies. She is currently doing well. We will repeat CT abdomen and pelvis. If negative can transition to oral antibiotics and possible discharge home if no nausea or vomiting is noted. She will be continued on PPI and Carafate. 2. Hypertension: Controlled. 3. GERD: On PPI twice a day. 4. History of SLE, rheumatoid and Sjgren's: Resumed on home meds. 5. History of intellectual disability, homelessness, anxiety, depression, bipolar disorder: Continued on home meds. 6. Disposition: May discharge home today if patient has no acute issues on repeat CT abdomen and pelvis and tolerating her diet without nausea, vomiting or worsening abdominal pain. MTDD
[2021-07-18] MEDS: PROMETHAZINE INJ 25 MG/ML VIAL (J2550) IV PRN ×2 (16:22→22:09)
[2021-07-18 20:04] VITALS: BP 143/101
[2021-07-18 20:08] VITALS: BP 148/90
[2021-07-18] MEDS: DULoxetine 30 MG CAP (CYMBALTA) PO SCH (20:48)
[2021-07-18] MEDS: MONTELUKAST 10 MG TAB PO SCH (20:49)
[2021-07-18] MEDS: zolPIDEM TARTRATE 5 MG TAB PO PRN (20:54)
[2021-07-19] MEDS: SUCRALFATE SUSP 1GM/10ML UD PO SCH ×2 (05:30)
[2021-07-19] MEDS: LEVOTHYROXINE 25MCG TABLET (0.025MG) PO SCH (05:30)
[2021-07-19] MEDS: MEROPENEM INJ 1 GM in IV 1 EA IV SCH (05:31)
[2021-07-19] MEDS: PROMETHAZINE INJ 25 MG/ML VIAL (J2550) IV PRN (05:31)
[2021-07-19 06:13] LABS: HEMOGLOBIN 8.7 g/dl (12.0-15.5); MEAN CORPUSCULAR HEMOGLOBIN 32.2 pg (27.0-33.0); MEAN CORPUSCULAR HGB CONC 32.2 g/dl (32.0-36.5); PLATELET COUNT, AUTOMATED 145 10^3/uL (150-450); WHITE BLOOD COUNT 3.8 10^3/uL (4.0-10.0)
[2021-07-19 06:18] VITALS: BP 128/84
[2021-07-19 06:39] LABS: ALBUMIN 1.6 GM/DL (3.2-5.2); ALT/SGPT 22 U/L (12-78); BILIRUBIN,TOTAL 0.5 MG/DL (0.2-1.0); BLOOD UREA NITROGEN 2 MG/DL (7-18); CALCIUM LEVEL 7.6 MG/DL (8.5-10.1); CARBON DIOXIDE LEVEL 24 MEQ/L (21-32); CHLORIDE LEVEL 108 MEQ/L (98-107); CREATININE FOR GFR 0.48 MG/DL (0.55-1.30); GLOMERULAR FILTRATION RATE > 60.0 (>58); GLUCOSE, FASTING 68 MG/DL (70-100); MAGNESIUM LEVEL 1.6 MG/DL (1.8-2.4); POTASSIUM SERUM 3.5 MEQ/L (3.5-5.1); SODIUM LEVEL 140 MEQ/L (136-145); TOTAL PROTEIN 3.9 GM/DL (6.4-8.2)
[2021-07-19 07:01] LABS: C REACTIVE PROTEIN QUANTITATIV < 0.30 MG/DL (0.00-0.30)
[2021-07-19 07:17] LABS: ERYTHROCYTE SEDIMENTATION RATE 2 mm/hr (0-20)
[2021-07-19] MEDS ORDERED: REGL10TA6 PO (07:51)
[2021-07-19] MEDS ORDERED: ZOFR4TAB16 PO (07:51)
[2021-07-19] MEDS: ENOXAPARIN 40MG/0.4ML SYRINGE (J1650 PER 10MG) SC SCH (09:00)
[2021-07-19] MEDS: DIVALPROEX 250 MG TAB PO SCH (09:25)
[2021-07-19] MEDS: HYDROXYCHLOROQUINE 200 MG TAB PO SCH (09:25)
[2021-07-19] MEDS: GABAPENTIN 300 MG CAP PO SCH (09:25)
[2021-07-19] MEDS: ACETAMINOPHEN TAB 650MG DOSE (2X325MG) PO PRN (09:26)
[2021-07-19] MEDS: PANTOPRAZOLE 40MG VIAL (C9113 PER 1) IV SCH (09:26)
--- NOTE | 2021-07-19 10:17 | DS.PDOC ---
Discharge Summary General Date of Admission Jul 15, 2021 at 14:02 Date of Discharge 07/19/21 Discharge Summary DISCHARGE DIAGNOSES: Contained perforation w history of gastric bypass surgery anorexia bulimia, fibromyalgia, migraines, hypertension, hypercholesterolemia, COPD, asthma, rheumatoid arthritis and anemia DISCHARGE MEDICATIONS: SEE BELOW DISCHARGE INSTRUCTIONS: PCP AND DR HUIZAR 1 [facility]SE: This 41-year-old female admitted on 06/18/2021 with prior history of anorexia, gastric bypass, bulimia, fibromyalgia, migraines, hypertension, hypercholesterolemia, COPD, asthma, rheumatoid arthritis and anemia with nausea, vomiting, diarrhea and prior history Martinez-en-[id number] gastric bypass surgery was found to have multiple air bubbles in the upper abdomen concerning for free air. This was evaluated by general surgeon Dr. Huizar who felt that the patient did not require any surgical intervention. 1. History of gastric bypass surgery with possible contained perforation with multiple air bubbles noted in the upper abdomen and possible ulcer at the gastrojejunostomy site: Patient is on PPI, Carafate, advanced on diet. Upper GI series was negative for perforation or leak. Her procalcitonin was 71. Patient was started on meropenem due to multiple allergies. She is currently doing well. negative repeat CT abdomen and pelvis for perforation or abscess. no free air. augmentin and outpt fu w dr. huizar She will be continued on PPI and Carafate. 2. Hypertension: Controlled. 3. GERD: On PPI twice a day. 4. History of SLE, rheumatoid and Sjgren's: Resumed on home meds. 5. History of intellectual disability, homelessness, anxiety, depression, bipolar disorder: Continued on home meds. DISCHARGE PE: Vital signs: see below GEN: no distress HEENT: edentulous moist mucus membranes no jvd no thyromegaly or cervical LAD Lungs: Clear to auscultation, no wheezes, rhonchi or rales. Heart: S1 and S2 sinus rhythm. Abdomen: Soft, nontender, no guarding or rebound, positive bowel sounds times 4 quadrants, no distention. Extremities: No cyanosis, clubbing or pitting edema. LABORATORY DATA:SEE CHART MICROBIOLOGY: SEE CHART IMAGING STUDIES: Reviewed. TIME SPENT ON DISCHARGE: 30 MIN Vital Signs/I&Os Vital Signs Date Time Temp Pulse Resp B/P (MAP) Pulse Ox O2 Delivery O2 Flow Rate FiO2 07/19/21 06:18 97.9 97 20 128/84 (99) 96 Room Air I&O- Last 24 Hours up to 6 AM 07/19/21 06:00 Intake Total 1030 ml Output Total 30 ml Balance 1000 ml Laboratory Data Labs 24H Laboratory Tests 2 07/18/21 12:48: Magnesium Level 2.1 07/19/21 05:51: Magnesium Level 1.6L, Nucleated Red Blood Cells % (auto) 0.5H, Erythrocyte Sedimentation Rate 2, Anion Gap 8, Glomerular Filtration Rate > 60.0, Calcium Level 7.6L, Total Bilirubin 0.5, Aspartate Amino Transf (AST/SGOT) 29, Alanine Aminotransferase (ALT/SGPT) 22, Alkaline Phosphatase 78, C-Reactive Protein, Quantitative < 0.30, Total Protein 3.9L, Albumin 1.6L, Albumin/Globulin Ratio 0.7L, Procalcitonin 2.12 CBC/BMP Laboratory Tests 07/18/21 12:48 07/19/21 05:51 Microbiology Microbiology 07/18/21 Blood Culture - Preliminary, Resulted No growth after 24 hours . All specim... 07/18/21 Blood Culture - Preliminary, Resulted No growth after 24 hours . All specim... 07/17/21 Urine Culture - Final, Complete 07/15/21 Blood Culture - Preliminary, Resulted No Growth after 72 hours. All specime... Discharge Medications Scheduled Amoxicillin/Potassium Clav (Augmentin 875-125 Tablet) 1 Each Tablet, 1 TAB PO BID Divalproex Sodium (Divalproex Sodium) 250 Mg Tablet.dr, 250 MG PO BID, (Reported) Duloxetine Hcl (Cymbalta) 60 Mg Capsule.dr, 120 MG PO QHS, (Reported) Fluticasone/Umeclidin/Vilanter (Trelegy Ellipta 100-62.5-25) 1 Each Blst.w.dev, 1 PUFF INH DAILY, (Reported) Gabapentin (Gabapentin) 600 Mg Tablet, 600 MG PO TID, (Reported) Hydroxychloroquine Sulfate (Hydroxychloroquine Sulfate) 200 Mg Tablet, 200 MG PO BID, (Reported) Levothyroxine Sodium (Synthroid) 25 Mcg Tablet, 25 MCG PO DAILY, (Reported) Methotrexate Sodium (Methotrexate) 2.5 Mg Tablet, 7.5 MG PO QWEEK, (Reported) MONDAYS Metoclopramide HCl (Reglan) 10 Mg Tablet, 10 MG PO ACHS before food and bedtime Montelukast Sodium (Montelukast Sodium) 10 Mg Tablet, 10 MG PO QHS, (Reported) Pantoprazole Sodium (Pantoprazole Sodium) 40 Mg Tablet.dr, 40 MG PO DAILY, (Reported) Pilocarpine HCl (Salagen) 5 Mg Tablet, 5 MG PO TID, (Reported) Potassium Chloride (Potassium Chloride) 10 Meq Capsule.er, 10 MEQ PO DAILY, (Reported) Sucralfate (Carafate) 1 Gm Tablet, 1 GM PO ACHS 4 times per day take on an empty stomach Zolpidem Tartrate (Zolpidem Tartrate) 10 Mg Tablet, 10 MG PO QHS, (Reported) Scheduled PRN Albuterol Sulfate (Proair Hfa) 8.5 Gm Hfa.aer.ad, 2 PUFF INH Q4H PRN for SHORTNESS OF BREATH, (Reported) Alprazolam (Alprazolam) 0.5 Mg Tablet, 0.5 MG PO BID PRN for ANXIETY, (Reported) Metoclopramide HCl (Metoclopramide HCl) 10 Mg Tablet, 10 MG PO QID PRN for NAUSEA OR VOMITING, (Reported) Ondansetron HCl (Zofran) 4 Mg Tablet, 4 MG PO Q6HP PRN for NAUSEA Ondansetron HCl (Zofran) 4 Mg Tablet, 4 MG PO Q6-8HP PRN for nausea/vomiting Oxycodone HCl/Acetaminophen (Percocet 5-325 mg Tablet) 1 Each Tablet, 1-2 TAB PO Q4-6HP PRN for pain Sumatriptan Succinate (Sumatriptan Succinate) 50 Mg Tablet, 50 MG PO BID PRN for MIGRAINE, (Reported) Allergies Coded Allergies: Sulfa (Sulfonamide Antibiotics) (Verified Allergy, Intermediate, RASH AND HIVES, 05/18/21) buspirone (Verified Allergy, Intermediate, hives, 05/18/21) cephalexin (Verified Allergy, Intermediate, hives, 05/18/21) erythromycin base (Verified Allergy, Intermediate, hives/rash, 05/18/21) latex (Verified Allergy, Intermediate, hives, 05/18/21) levofloxacin (Verified Allergy, Intermediate, hives/rash, 05/18/21) lisinopril (Verified Allergy, Intermediate, hives/rash, 05/18/21) sulfamethoxazole (Verified Allergy, Intermediate, hives/rash, 05/18/21) eszopiclone (Verified Allergy, Mild, rash, 05/18/21) omeprazole (Verified Allergy, Unknown, 05/18/21) bupropion (Verified Adverse Reaction, Mild, nausea, 05/18/21) trimethoprim (Verified Adverse Reaction, Mild, nausea/vomitting, 05/18/21) ADOLFO PEÑA MD Jul 19, 2021 10:17
[2021-07-19] MEDS ORDERED: XANA0.5T PO (11:53)
[2021-07-19] MEDS: ALPRAZolam 0.5 MG TAB PO PRN (11:59)
[2021-07-22] MEDS ORDERED: METHOTREXATE 2.5 MG TAB (J8610 PER 2.5MG) PO SCH (09:00)
== END 2021-07-19 13:05 | disposition home or self-care (01) | DRG 382 ==
LOC: EDBD 14:01 → M ED 14:01 → M ED INP 14:02 → M MS5PR 07-16 00:05
PROVIDERS: ADMIT Family Medicine; ATTEND General Practice
DX: K27.5 Chronic or unspecified peptic ulcer, site unspecified, with perforation (principal); F50.9 Eating disorder, unspecified; Z98.84 Bariatric surgery status; Z88.1 Allergy status to other antibiotic agents; Z88.2 Allergy status to sulfonamides; Z88.8 Allergy status to other drugs, medicaments and biological substances; Z79.899 Other long term (current) drug therapy; G43.909 Migraine, unspecified, not intractable, without status migrainosus; J44.9 Chronic obstructive pulmonary disease, unspecified; M06.9 Rheumatoid arthritis, unspecified; E78.00 Pure hypercholesterolemia, unspecified; I10 Essential (primary) hypertension; M79.7 Fibromyalgia; K21.9 Gastro-esophageal reflux disease without esophagitis; Z91.040 Latex allergy status; K76.0 Fatty (change of) liver, not elsewhere classified; F41.9 Anxiety disorder, unspecified; F32.9 Major depressive disorder, single episode, unspecified; F79 Unspecified intellectual disabilities

== ENCOUNTER 2021-07-25 14:32 | Emergency (ER) | payer MEDICARE, MEDICAID ==
[~2021-07-25] VITALS: Ht 167.6 cm; Wt 72.7 kg
[~2021-07-25 14:32] MED LIST changes: +ALPR0.5T3 PO; +AUGM875T28 PO; +CARA1TAB6 PO; +GABA600T4 PO; +METO10TA2 PO; +SYNT25TA PO; +TREL1AER INH
[2021-07-25] MEDS ORDERED: ALPRAZolam 0.25 MG TAB PO ONE (15:10)
[2021-07-25 17:35] VITALS: BP 145/80
== END 2021-07-25 17:40 | disposition home or self-care (01) ==
LOC: M ED 14:32
DX: R42 Dizziness and giddiness (principal); F32.9 Major depressive disorder, single episode, unspecified; F41.9 Anxiety disorder, unspecified; F17.200 Nicotine dependence, unspecified, uncomplicated; I10 Essential (primary) hypertension; Z91.040 Latex allergy status; Z98.84 Bariatric surgery status; Z88.1 Allergy status to other antibiotic agents; Z88.2 Allergy status to sulfonamides; Z88.8 Allergy status to other drugs, medicaments and biological substances

== ENCOUNTER 2021-07-26 09:39 | Emergency (ER) | payer MEDICARE, MEDICAID ==
[~2021-07-26] VITALS: Ht 167.6 cm; Wt 64.0 kg
--- NOTE | 2021-07-26 10:54 | REP ---
INDICATION: fall. COMPARISON: 01/16/2019. TECHNIQUE: Five views lumbosacral spine. FINDINGS: There is no compression fracture or malalignment. There is normal lumbar lordosis. There is mild disc space narrowing, subchondral sclerosis and spurring at L4-5.. Posterior elements are intact. IMPRESSION: No acute fracture or dislocation. <Electronically signed by Dawson Gong > 07/26/21 1991
[2021-07-26 13:57] VITALS: BP 126/85
== END 2021-07-26 14:01 | disposition home or self-care (01) ==
LOC: M ED 09:39
DX: E16.2 Hypoglycemia, unspecified (principal); T14.8XXA Other injury of unspecified body region, initial encounter; W19.XXXA Unspecified fall, initial encounter; I10 Essential (primary) hypertension; Z98.84 Bariatric surgery status; Z88.1 Allergy status to other antibiotic agents; Z88.2 Allergy status to sulfonamides; Z88.7 Allergy status to serum and vaccine; Z88.8 Allergy status to other drugs, medicaments and biological substances; Z91.040 Latex allergy status; Y92.9 Unspecified place or not applicable; Y93.9 Activity, unspecified; Y99.9 Unspecified external cause status

== ENCOUNTER 2021-07-30 13:47 | Inpatient (IN) | payer MEDICARE, MEDICAID ==
[~2021-07-30] VITALS: Ht 165.1 cm; Wt 76.5 kg
[~2021-07-30 13:47] MED LIST changes: +CYMB60CA4 PO; +DOXY-443 PO; -DOXY1CAP62 PO; -MAGN400T3 PO; +MAGN400T33 PO
[2021-07-30] MEDS ORDERED: LORazepam 2 MG/ML VIAL IM STA (15:23)
--- NOTE | 2021-07-30 16:40 | REPVR ---
PROCEDURE INFORMATION: Exam: CT Head Without Contrast Exam date and time: 07/30/2021 4:16 PM Age: 41 years old Clinical indication: Altered mental status/memory loss; Additional info: AMS TECHNIQUE: Imaging protocol: Computed tomography of the head without contrast. Radiation optimization: All CT scans at this facility use at least one of these dose optimization techniques: automated exposure control; mA and/or kV adjustment per patient size (includes targeted exams where dose is matched to clinical indication); or iterative reconstruction. COMPARISON: CT Head without contrast 07/15/2021 6:04 PM FINDINGS: Brain: There is mild symmetric brain atrophy. Cerebral ventricles: No ventriculomegaly. Paranasal sinuses: Visualized sinuses are unremarkable. No fluid levels. Mastoid air cells: Visualized mastoid air cells are well aerated. Orbital cavity: There is divergent gaze. Bones/joints: Unremarkable. No acute fracture. Soft tissues: Unremarkable. IMPRESSION: 1. There is divergent gaze. 2. No acute intracranial process is identified. Electronically signed by: Justin Orozco On 07/30/2021 16:40:17 PM
--- NOTE | 2021-07-30 16:43 | REPVR ---
PROCEDURE INFORMATION: Exam: CT Cervical Spine Without Contrast Exam date and time: 07/30/2021 4:16 PM Age: 41 years old Clinical indication: Other: AMS TECHNIQUE: Imaging protocol: Computed tomography images of the cervical spine without contrast. Radiation optimization: All CT scans at this facility use at least one of these dose optimization techniques: automated exposure control; mA and/or kV adjustment per patient size (includes targeted exams where dose is matched to clinical indication); or iterative reconstruction. COMPARISON: CT Spine,cervical w/o contrast 04/30/2021 1:08 AM FINDINGS: Bones/joints: No acute fracture. Normal alignment. Discs/Spinal canal/Neural foramina: No significant disc protrusion. No severe spinal canal stenosis. No significant neural foraminal narrowing. Thyroid: The thyroid gland is normal. Lungs: Patchy peripheral ground-glass infiltrate is seen in the upper lung rios of concern for possible COVID-19 pneumonia. Soft tissues: Unremarkable. IMPRESSION: 1. Patchy peripheral ground-glass infiltrate is seen in the upper lung rios of concern for possible COVID-19 pneumonia. 2. No evidence of an acute cervical spine abnormality. Electronically signed by: Justin Orozco On 07/30/2021 16:43:05 PM
--- NOTE | 2021-07-30 17:05 | REP ---
INDICATION: fall, altered mental status. COMPARISON: 05/18/2021. TECHNIQUE: Single portable AP view of the chest was performed. FINDINGS: There is no acute infiltrate or pulmonary edema. Lungs are clear. The heart is not significantly enlarged. The mediastinal silhouette is unremarkable. The visualized osseous structures are intact. IMPRESSION: No acute pulmonary disease. <Electronically signed by Dawson Gong > 07/30/21 [id number]
[2021-07-30 19:51] LABS: HEMATOCRIT 31.5 % (36.0-47.0); HEMOGLOBIN 10.1 g/dl (12.0-15.5); MEAN CORPUSCULAR HEMOGLOBIN 32.5 pg (27.0-33.0); MEAN CORPUSCULAR HGB CONC 32.1 g/dl (32.0-36.5); MEAN CORPUSCULAR VOLUME 101.3 fl (80.0-96.0); PLATELET COUNT, AUTOMATED 163 10^3/uL (150-450); RED BLOOD COUNT 3.11 10^6/uL (4.00-5.40); WHITE BLOOD COUNT 14.2 10^3/uL (4.0-10.0)
[2021-07-30] MEDS ORDERED: NS 1,000 ML IV ONE ×2 (19:55→22:20)
[2021-07-30 20:44] LABS: BASO % 0.1 % (0.0-1.0); LYMPH # 1.5 10^3/uL (1.5-5.0); LYMPH % 10.9 % (24.0-44.0); MONO # 0.7 10^3/uL (0.0-0.8); MONO % 5.3 % (2.0-8.0); NEUTROPHILS # 11.6 10^3/uL (1.5-8.5); NEUTROPHILS % 83.3 % (36.0-66.0)
[2021-07-30 21:29] LABS: ALT/SGPT 249 U/L (12-78); BILIRUBIN,TOTAL 2.4 MG/DL (0.2-1.0); BLOOD UREA NITROGEN 19 MG/DL (7-18); CALCIUM LEVEL 7.5 MG/DL (8.5-10.1); CARBON DIOXIDE LEVEL 21 MEQ/L (21-32); CHLORIDE LEVEL 115 MEQ/L (98-107); CPK CREATINE PHOSPHOKINASE 15983 U/L (26-192); CREATININE FOR GFR 2.33 MG/DL (0.55-1.30); GLOMERULAR FILTRATION RATE 24.3 (>58); GLUCOSE, FASTING 77 MG/DL (70-100); POTASSIUM SERUM 4.2 MEQ/L (3.5-5.1); SODIUM LEVEL 148 MEQ/L (136-145); TOTAL PROTEIN 5.2 GM/DL (6.4-8.2)
[2021-07-30 23:19] LABS: AMPHETAMINES LEVEL URINE NEGATIVE (NEGATIVE); BARBITURATES URINE NEGATIVE (NEGATIVE); BENZODIAZEPINES URINE POSITIVE (NEGATIVE); CANNABINOIDS URINE NEGATIVE (NEGATIVE); COCAINE METABOLITE URINE NEGATIVE (NEGATIVE); METHADONE URINE NEGATIVE (NEGATIVE); OPIATES URINE NEGATIVE (NEGATIVE); PHENCYCLIDINE URINE NEGATIVE (NEGATIVE)
[2021-07-30] MEDS ORDERED: D5W 1,000 ML IV ONE (23:45)
[2021-07-30] MEDS ORDERED: HEPARIN SOD (PORCINE) 5000UNITS/ML 1ML VIAL/SYRINGE SC SCH (23:50)
--- NOTE | 2021-07-30 23:56 | HPEPDOC ---
[facility] Medical History & Physical Date of Admission Jul 30, 2021 Date of Service: Jul 30, 2021 Attending Physician: ORLANDO BASURTO MD History and Physical CHIEF COMPLAINT: [41 y/o female brought to us via EMS after friends found her on the ground] HISTORY OF PRESENT ILLNESS: [As of my examination of patient, she is totally obtunded and cannot provide history. History is taken from the chart and ED st aff. Apparently, patient was brought in via EMS after friends called after finding her on the floor after a supposed fall. Upon presentation to the ED, patient was obtunded but easily arousable and would ramble nonsense and at times shout out. Patient had to be given mild sedation to be CT scanned. ] PAST MEDICAL HISTORY: Homelessness Intellectual disability Anxiety and depression History of suicidal ideation Bipolar disorder Bulimia disorder Fibromyalgia Migraine headaches Sjogren syndrome SLE Rheumatoid arthritis Hypertension Allergic rhinitis Asthma GERD Fatty liver from CT January 2017 PAST SURGICAL HISTORY: 1. [Tonsillectomy and adenoidectomy]. 2. [Gastric bypass]. 3. [Unspec. hernia repair 4. Cholecystectomy 5. Hysterectomy]. SOCIAL HISTORY: Unable to obtain d/t mentation FAMILY HISTORY: Unable to obtain d/t mentation ALLERGIES: Please see below. REVIEW OF SYSTEMS: Unable to obtain d/t mentation HOME MEDICATIONS: Please see below. PHYSICAL EXAMINATION: VITAL SIGNS: Please see below. GENERAL APPEARANCE: [This is a 41 y/o female with impressive pallor. Patient is arousable to loud verbal stimuli and physical stimuli however does not make any intelligible responses when aroused. She is slightly tachypneic but does not appear to be in distress]. HEENT: [Impressive pallor. No mass or lesion. Divergent gaze. Nares patent. Oral mucosa unable to be assessed as patient will not open her mouth]. CARDIOVASCULAR: [Tachy rate, regular rhythm. No murmurs, rubs, gallops]. LUNGS: [Good air flow b/l. No wheezing, rales, rhonchi]. ABDOMEN: [Mildly distended. Soft. Patient moans with any palpation of the abdomen. There is scattered ecchymosis on the abdomen. Ang catheter is in place and there is dark red to brown urine in the ang bag]. MUSCULOSKELETAL: [No joint deformity noted]. EXTREMITIES: [There is extensive ecchymosis of varying stages of healing over all four extremities. There are also many small scratches in varying stages of healing. Extremities are cold to palpation. Patient appears to have asterixis of b/l hands when the wrists are extended manually. The patient has mild jerking motions of the feet at times. There is no pedal edema. Pulses intact]. NEUROLOGICAL: [Patient is not alert or oriented to cooperate with neuro exam]. PSYCHIATRIC: [Patient is obtunded]. LABORATORY DATA: See below. IMAGING: [Cervical spine CT: FINDINGS: Bones/joints: No acute fracture. Normal alignment. Discs/Spinal canal/Neural foramina: No significant disc protrusion. No severe spinal canal stenosis. No significant neural foraminal narrowing. Thyroid: The thyroid gland is normal. Lungs: Patchy peripheral ground-glass infiltrate is seen in the upper lung rios of concern for possible COVID-19 pneumonia. Soft tissues: Unremarkable. IMPRESSION: 1. Patchy peripheral ground-glass infiltrate is seen in the upper lung rios of concern for possible COVID-19 pneumonia. 2. No evidence of an acute cervical spine abnormality. CXR: FINDINGS: There is no acute infiltrate or pulmonary edema. Lungs are clear. The heart is not significantly enlarged. The mediastinal silhouette is unremarkable. The visualized osseous structures are intact. IMPRESSION: No acute pulmonary disease. Head CT: FINDINGS: Brain: There is mild symmetric brain atrophy. Cerebral ventricles: No ventriculomegaly. Paranasal sinuses: Visualized sinuses are unremarkable. No fluid levels. Mastoid air cells: Visualized mastoid air cells are well aerated. Orbital cavity: There is divergent gaze. Bones/joints: Unremarkable. No acute fracture. Soft tissues: Unremarkable. IMPRESSION: 1. There is divergent gaze. 2. No acute intracranial process is identified. CT Abd/pelvis: FINDINGS: Lungs: There are ground-glass opacities in both lung bases with areas of intralobular septal thickening ("crazy-paving"?), which have developed since the CT abdomen and pelvis on 07/18/2021. The lungs were not fully imaged. Heart: No cardiomegaly. No pericardial effusion. Liver: There is fatty infiltration of the liver. No liver lesion is identified. The contour of the liver is smooth. The liver is enlarged and in craniocaudal dimension and at the level of the right midclavicular line, the liver measures 16.7 cm. Gallbladder and bile ducts: There has been a cholecystectomy. There is no fluid collection in the gallbladder fossa. No dilation of the bile ducts is noted. No calcified stones are seen in the common bile duct. Pancreas: Unremarkable. No dilation of the main pancreatic duct is noted. Spleen: Unremarkable. No splenomegaly is noted. Adrenal glands: Normal. No adrenal mass is noted. Kidneys and ureters: The kidneys are unremarkable. No renal lesion is noted. No stones are noted in the kidneys or ureters. There is no hydronephrosis or hydroureter. Stomach and bowel: Postoperative changes are noted from a Martinez-en-Y gastric bypass surgery. There is no evidence for a bowel obstruction, diverticulosis, diverticulitis, colitis, perforated viscus, pneumatosis intestinalis, intussusception, or volvulus. The sigmoid colon is redundant. Appendix: Normal. There is no evidence for appendicitis. Intraperitoneal space: No free air. No ascites. No abscess. Retroperitoneal space: Unremarkable. Vasculature: There is a region of low attenuation in the right main pulmonary artery and right lower lobar pulmonary artery (image 1 of the axial series 201), which is suspicious for a pulmonary embolism. The abdominal aorta is normal in caliber. Lymph nodes: No enlarged lymph nodes. Urinary bladder: There is a Ang catheter in appropriate position in the urinary bladder and gas in the bladder. No calculi are noted in the bladder. Reproductive: There has been a hysterectomy. The adnexa are unremarkable. Bones/joints: There are healing fractures of the right anterior 6th and 7th ribs and right posterior 10th and 11th ribs, which can also be seen in the CT abdomen and pelvis on 07/18/2021. The ribs were not fully imaged. The lumbar spine, bony pelvis, and hips are intact. There are degenerative changes involving the lumbar spine. Soft tissues: There is edema in the subcutaneous tissues. No hernia or soft tissue fluid collection is noted. Postoperative changes are noted from a right inguinal hernia repair. IMPRESSION: 1. Region of low attenuation in the right main pulmonary artery and right lower lobar pulmonary artery (image 1 of the axial series 201), which is suspicious for a pulmonary embolism. A CTA chest with intravenous contrast is suggested for further evaluation. 2. Commonly reported imaging features of COVID-19 pneumonia are present. Other processes such as influenza pneumonia and organizing pneumonia, as can be seen with drug toxicity and connective tissue disease, can cause a similar imaging pattern. (Reference: Lexa) 3. Enlarged, fatty liver. 4. Healing fractures of the right anterior 6th and 7th ribs and right posterior 10th and 11th ribs, which can also be seen in the CT abdomen and pelvis on 07/18/2021. ] MICROBIOLOGY: Please see below. ASSESSMENT: [41 y/o female with extensive psych history as well as liver disease and asthma brought to ED by EMS after supposedly being found on the floor by friends. Upon evaluation in the ED, patient found to be acutely altered and had to be sed ated with 2mg IM ativan in order to have workup completed. Patient found to have many acute lab findings including hypernatremia of 148, rhabdomyolysis with cpk >27888 and +myoglobinuria, transaminitis, bilirubinemia, and sirs criteria with leukocytosis of 14.2 and pulse of 97. Patient obtunded and not easily arousable by the time of my examination.]. . PLAN: 1. [Rhabdomyolysis - Unclear etiology. Patient was found on the floor, and with a pmh of suicidal ideation and substance abuse, it is reasonable to think that she may have taken synthetic substance not detectable by our urine tox screen or a poisoning attempt with one of her many at home medications - CPK >27846, will trend - +Myoglobinuria - Ang in place, will monitor urine color - Patient s/p 2L NS bolus in the ED, will switch to D5W d/t hypernatremia - Admit to pcu for w/u and tx 2. Altered mental status - Unclear etiology, as stated prior, possibly secondary to substance use vs. advancing liver dz vs. cva - this didnt' resolve despite Narcan - NPO diet - neurochecks q4 - pulse oximetry, telemetry - will check ammonia, tsh, t4, further liver studies, valproic acid level & add on prolactin - urine drug tox + for benzo's, however this sample was taken after given IM ativan in the emergency department 3. Possible PE - CT abd/pelvis showing what may be a PE - will empirically start heparin drip - unfortunately, cta cannot be completed at this time d/t acutely elevated creatinine - doppler us ordered of lower extremities 4. PARAS - most likely secondary to poor hydration as patient concurrently in rhabdo - giving IVF - ct abd/pelvis negative for obstruction - trend kidney function 5. Transaminitis and bilirubinemia - Patient does have hx of fatty liver, so potentially advancement of mendoza - Potentially also secondary to substance use - Patient is s/p cholecystectomy - Hep panel ordered - CT abd/pelvis negative for acute hepatic pathology - monitor 6. Hypernatremia - Most likely d/t free water deficit as patient concurrently in rhabdo and PARAS - will give IVF with d5w and avoid normal saline at this time 7. SIRS - Patient presented with leukocytosis of 14 and tachycardia of 97 - Unclear if there is present bacterial infection, will order procalcitonin - monitor vitals, wbc after initiation of ivf 8. Depression/anxiety - continue home meds once alert 9. Fibromyalgia/rheumatoid arthritis - continue home meds once alert DVT prophylaxis - pt on heparin drip]. Late entry #Elevated Troponin -possibly due to to reduced renal clearance of troponin in the setting of PARAS -telemetry / trend troponin #Low Calcium -f/u ionized Ca++ Vital Signs Vital Signs Date Time Temp Pulse Resp B/P (MAP) Pulse Ox O2 Delivery O2 Flow Rate FiO2 07/30/21 21:58 66 152/87 (108) 93 07/30/21 16:44 18 Room Air 07/30/21 14:42 97.1 Laboratory Data Labs 24H Laboratory Tests 2 07/30/21 17:42: Anion Gap 12, Glomerular Filtration Rate 24.3L, Calcium Level 7.5L, Total Bilirubin 2.4H, Aspartate Amino Transf (AST/SGOT) 887H, Alanine Aminotransferase (ALT/SGPT) 249H, Alkaline Phosphatase 124H, Total Creatine Kinase 39381F, Total Protein 5.2L, Albumin 2.0L, Albumin/Globulin Ratio 0.6L 07/30/21 19:31: Immature Granulocyte % (Auto) 0.4, Neutrophils (%) (Auto) 83.3H, Lymphocytes (%) (Auto) 10.9L, Monocytes (%) (Auto) 5.3, Eosinophils (%) (Auto) 0.0, Basophils (%) (Auto) 0.1, Neutrophils # (Auto) 11.6H, Lymphocytes # (Auto) 1.5, Monocytes # (Auto) 0.7, Eosinophils # (Auto) 0.0, Basophils # (Auto) 0.0, Nucleated Red Blood Cells % (auto) 0.0 07/30/21 19:34: Lactic Acid Level 2.0 07/30/21 22:47: Urine Color AARON, Urine Appearance HAZY, Urine pH 5.0, Urine Specific [place] 1.027, Urine Protein 2+H, Urine Glucose (UA) NEGATIVE, Urine Ketones NEGATIVE, Urine Blood 2+H, Urine Nitrite NEGATIVE, Urine Bilirubin 2+H, Urine Urobilinogen 4.0H, Urine Leukocyte Esterase NEGATIVE, Urine WBC (Auto) 5H, Urine RBC (Auto) 3, Urine Hyaline Casts (Auto) 17, Urine Bacteria (Auto) 1+H, Urine Squamous Epithelial Cells 1, Urine Granular Casts (Auto) 5, Urine Mucus (Auto) SMALL, Urine Sperm (Auto) , Urine Myoglobin POSITIVEH, Urine Opiates Screen NEGATIVE, Urine Methadone Screen NEGATIVE, Urine Barbiturates Screen NEGATIVE, Urine Phencyclidine Screen NEGATIVE, Urine Amphetamines Screen NEGATIVE, Urine Benzodiazepines Screen POSITIVEH, Urine Cocaine Metabolite Screen NEGATIVE, Urine Cannabinoids Screen NEGATIVE CBC/BMP Laboratory Tests 07/30/21 17:42 07/30/21 19:31 Microbiology Microbiology 07/30/21 Respiratory Virus Panel (PCR) ([facility]) - Final, Complete Home Medications Scheduled Divalproex Sodium (Divalproex Sodium) 250 Mg Tablet.dr, 250 MG PO BID Duloxetine Hcl (Cymbalta) 60 Mg Capsule.dr, 120 MG PO QHS Fluticasone/Umeclidin/Vilanter (Trelegy Ellipta 100-62.5-25) 1 Each Blst.w.dev, 1 PUFF INH DAILY Gabapentin (Gabapentin) 600 Mg Tablet, 600 MG PO TID Hydroxychloroquine Sulfate (Hydroxychloroquine Sulfate) 200 Mg Tablet, 200 MG PO BID Levothyroxine Sodium (Synthroid) 25 Mcg Tablet, 25 MCG PO DAILY Magnesium Oxide (Magnesium Oxide) 400 Mg Tablet, 400 MG PO DAILY Methotrexate Sodium (Methotrexate) 2.5 Mg Tablet, 7.5 MG PO QWEEK MONDAYS Montelukast Sodium (Montelukast Sodium) 10 Mg Tablet, 10 MG PO QHS Pantoprazole Sodium (Pantoprazole Sodium) 40 Mg Tablet.dr, 40 MG PO DAILY Pilocarpine HCl (Salagen) 5 Mg Tablet, 5 MG PO TID 1200, 1600, 2000 Potassium Chloride (Potassium Chloride) 10 Meq Capsule.er, 10 MEQ PO BID Sucralfate (Carafate) 1 Gm Tablet, 1 GM PO ACHS 4 times per day take on an empty stomach Zolpidem Tartrate (Zolpidem Tartrate) 10 Mg Tablet, 10 MG PO QHS Scheduled PRN Albuterol Sulfate (Proair Hfa) 8.5 Gm Hfa.aer.ad, 2 PUFF INH Q4H PRN for SHORTNESS OF BREATH Alprazolam (Alprazolam) 0.5 Mg Tablet, 0.5 MG PO BID PRN for ANXIETY Methocarbamol (Methocarbamol) 500 Mg Tablet, 500 MG PO BID PRN for MUSCLE SPASMS Metoclopramide HCl (Metoclopramide HCl) 10 Mg Tablet, 10 MG PO Q6H PRN for NAUSEA OR VOMITING Ondansetron HCl (Zofran) 4 Mg Tablet, 4 MG PO Q6H PRN for NAUSEA Oxycodone HCl/Acetaminophen (Oxycodone-Acetaminophen 5-325) 1 Each Tablet, 1 TAB PO Q4H PRN for MODERATE PAIN (PS 5-7) Oxycodone HCl/Acetaminophen (Oxycodone-Acetaminophen 5-325) 1 Each Tablet, 2 TAB PO Q4H PRN for SEVERE PAIN (PS 8-10) Sumatriptan Succinate (Sumatriptan Succinate) 50 Mg Tablet, 50 MG PO BID PRN for MIGRAINE Miscellaneous Medications [Patient Comment] MED REC COMPLETED VIA EXTERNAL MED HISTORY AND PREVIOUS DISCHARGE PAPERWORK (07/19/21) Allergies Coded Allergies: Sulfa (Sulfonamide Antibiotics) (Verified Allergy, Intermediate, RASH AND HIVES, 05/18/21) buspirone (Verified Allergy, Intermediate, hives, 05/18/21) cephalexin (Verified Allergy, Intermediate, hives, 05/18/21) erythromycin base (Verified Allergy, Intermediate, hives/rash, 05/18/21) latex (Verified Allergy, Intermediate, hives, 05/18/21) levofloxacin (Verified Allergy, Intermediate, hives/rash, 05/18/21) lisinopril (Verified Allergy, Intermediate, hives/rash, 05/18/21) sulfamethoxazole (Verified Allergy, Intermediate, hives/rash, 05/18/21) eszopiclone (Verified Allergy, Mild, rash, 05/18/21) omeprazole (Verified Allergy, Unknown, 05/18/21) bupropion (Verified Adverse Reaction, Mild, nausea, 05/18/21) trimethoprim (Verified Adverse Reaction, Mild, nausea/vomitting, 05/18/21) A-FIB/CHADSVASC A-FIB History Current/History of A-Fib/PAF?: No Attending Note Attending Note TIME OF SERVICE 1:15AM on 07/31/21 Ms.Savage mcmillan 41 yr old F was found lying on the floor by friends who called EMS. Shortly after arrival in the ER she was noted to be acting in a bizarre manner and flapping her extremities therefore she was given Ativan prior to CT scan of the head At the time of my assessment she appeared pale, was obtunded and appeared to have asterixis. She will be admitted for #encephalopathy / suspect polysubstance abuse #rhabdomyolysis #PARAS transaminitis # hypernatremia Rest per [facility]'s H&P NASIM ANAND Jul 30, 2021 23:56 ORLANDO BASURTO MD Jul 31, 2021 05:21
[2021-07-31] MEDS ORDERED: MAGN400T33 PO (00:31)
[2021-07-31] MEDS ORDERED: CARA1TAB6 PO (00:31)
[2021-07-31] MEDS ORDERED: ZOFR4TAB16 PO (00:31)
[2021-07-31] MEDS ORDERED: METH-1164 PO (00:31)
[2021-07-31] MEDS ORDERED: OXYC1TAB23 PO (00:31)
[2021-07-31] MEDS ORDERED: PATIENT COMMENT (00:32)
[2021-07-31] MEDS ORDERED: HOME MED LIST COMPLETE! XX SCH (00:35)
[2021-07-31] MEDS ORDERED: D5W 1,000 ML IV ONE (00:45)
--- NOTE | 2021-07-31 00:51 | REPVR ---
PROCEDURE INFORMATION: Exam: CT Abdomen And Pelvis Without Contrast Exam date and time: 07/30/2021 11:44 PM Age: 41 years old Clinical indication: Abdominal pain; Generalized; Additional info: transaminitis TECHNIQUE: Imaging protocol: Computed tomography of the abdomen and pelvis without contrast. Radiation optimization: All CT scans at this facility use at least one of these dose optimization techniques: automated exposure control; mA and/or kV adjustment per patient size (includes targeted exams where dose is matched to clinical indication); or iterative reconstruction. COMPARISON: CT ABD PELVIS WITH CONTRAST 07/18/2021 7:00 AM FINDINGS: Lungs: There are ground-glass opacities in both lung bases with areas of intralobular septal thickening ("crazy-paving"?), which have developed since the CT abdomen and pelvis on 07/18/2021. The lungs were not fully imaged. Heart: No cardiomegaly. No pericardial effusion. Liver: There is fatty infiltration of the liver. No liver lesion is identified. The contour of the liver is smooth. The liver is enlarged and in craniocaudal dimension and at the level of the right midclavicular line, the liver measures 16.7 cm. Gallbladder and bile ducts: There has been a cholecystectomy. There is no fluid collection in the gallbladder fossa. No dilation of the bile ducts is noted. No calcified stones are seen in the common bile duct. Pancreas: Unremarkable. No dilation of the main pancreatic duct is noted. Spleen: Unremarkable. No splenomegaly is noted. Adrenal glands: Normal. No adrenal mass is noted. Kidneys and ureters: The kidneys are unremarkable. No renal lesion is noted. No stones are noted in the kidneys or ureters. There is no hydronephrosis or hydroureter. Stomach and bowel: Postoperative changes are noted from a Martinez-en-Y gastric bypass surgery. There is no evidence for a bowel obstruction, diverticulosis, diverticulitis, colitis, perforated viscus, pneumatosis intestinalis, intussusception, or volvulus. The sigmoid colon is redundant. Appendix: Normal. There is no evidence for appendicitis. Intraperitoneal space: No free air. No ascites. No abscess. Retroperitoneal space: Unremarkable. Vasculature: There is a region of low attenuation in the right main pulmonary artery and right lower lobar pulmonary artery (image 1 of the axial series 201), which is suspicious for a pulmonary embolism. The abdominal aorta is normal in caliber. Lymph nodes: No enlarged lymph nodes. Urinary bladder: There is a Martínez catheter in appropriate position in the urinary bladder and gas in the bladder. No calculi are noted in the bladder. Reproductive: There has been a hysterectomy. The adnexa are unremarkable. Bones/joints: There are healing fractures of the right anterior 6th and 7th ribs and right posterior 10th and 11th ribs, which can also be seen in the CT abdomen and pelvis on 07/18/2021. The ribs were not fully imaged. The lumbar spine, bony pelvis, and hips are intact. There are degenerative changes involving the lumbar spine. Soft tissues: There is edema in the subcutaneous tissues. No hernia or soft tissue fluid collection is noted. Postoperative changes are noted from a right inguinal hernia repair. IMPRESSION: 1. Region of low attenuation in the right main pulmonary artery and right lower lobar pulmonary artery (image 1 of the axial series 201), which is suspicious for a pulmonary embolism. A CTA chest with intravenous contrast is suggested for further evaluation. 2. Commonly reported imaging features of COVID-19 pneumonia are present. Other processes such as influenza pneumonia and organizing pneumonia, as can be seen with drug toxicity and connective tissue disease, can cause a similar imaging pattern. (Reference: Lexa) 3. Enlarged, fatty liver. 4. Healing fractures of the right anterior 6th and 7th ribs and right posterior 10th and 11th ribs, which can also be seen in the CT abdomen and pelvis on 07/18/2021. REFERENCES: Lexa Cummings, et al., Rad[employer] Society of [place] Expert Consensus Statement on Reporting Chest CT Findings Related to COVID-19. Endorsed by the Society of [employer]acic Radiology, the [place] [employer], and RSNA. Published February 08, 2020. Electronically signed by: González Mckoy On 07/31/2021 00:51:17 AM
[2021-07-31 00:55] LABS: VENOUS BASE EXCESS -4.4 (-2.0-2.0); VENOUS HCO3 19.3 MEQ/L (23.0-27.0); VENOUS PARTIAL PRESSURE CO2 32.1 mmHg (38.0-50.0); VENOUS PARTIAL PRESSURE O2 161.5 mmHg (30.0-50.0); VENOUS PH 7.398 UNITS (7.330-7.430); VENOUS STANDARD HCO3 20.9 MEQ/L; VENOUS TOTAL CO2 20.3 MEQ/L (24.0-28.0)
[2021-07-31 00:57] LABS: VENOUS O2 SATURATION 99.1 % (60.0-80.0)
[2021-07-31 01:14] LABS: INR 1.34; PARTIAL THROMBOPLASTIN TIME 25.3 SECONDS (25.9-37.0)
[2021-07-31 01:27] LABS: ETHYL ALCOHOL (ETHANOL) < 0.003 % (0.000-0.010); HEPATITIS B CORE ANTIBODY IGM NEGATIVE (NEGATIVE); HEPATITIS B SURFACE ANTIGEN NEGATIVE (NEGATIVE); SALICYLATE LEVEL 3.6 MG/DL (5.0-30.0)
[2021-07-31] MEDS ORDERED: NALOXONE INJ 0.4MG/1ML VIAL (J2310 PER 1MG) IV STA (02:30)
[2021-07-31 02:33] LABS: ALBUMIN 1.7 GM/DL (3.2-5.2); BILIRUBIN,TOTAL 1.9 MG/DL (0.2-1.0); CALCIUM LEVEL 6.6 MG/DL (8.5-10.1); CREATININE FOR GFR 2.09 MG/DL (0.55-1.30); FREE T4 0.56 NG/DL (0.76-1.46); GLOMERULAR FILTRATION RATE 27.5 (>58); PERCENT SATURATION 143.1 % (13.2-45.0); POTASSIUM SERUM 3.9 MEQ/L (3.5-5.1); THYROID STIMULATING HORMONE 1.24 uIU/ML (0.358-3.740); TOTAL PROTEIN 4.4 GM/DL (6.4-8.2); TROPONIN I 0.22 NG/ML (< 0.10)
--- NOTE | 2021-07-31 02:35 | REPVR ---
PROCEDURE INFORMATION: Exam: US Duplex Lower Extremity Veins, Bilateral Exam date and time: 07/31/2021 2:22 AM Age: 41 years old Clinical indication: Swelling (edema) of limb; Lower extremity, bilateral; Additional info: Leg swelling/ possible PE on CT TECHNIQUE: Imaging protocol: Real-time duplex ultrasound of the extremities with 2-D zendejas scale, color Doppler flow and spectral waveform analysis with image documentation. Complete exam focused on the bilateral lower extremity veins. COMPARISON: US Duplex, Ext,LOWER veins,unilat 05/30/2018 7:24 PM FINDINGS: Right deep veins: Unremarkable. The common femoral, femoral, and popliteal veins are patent without thrombus. Normal compressibility, augmentation response and Doppler waveforms. The right calf veins were not visualized. Right superficial veins: Saphenofemoral junction is patent without thrombus. Left deep veins: Unremarkable. The common femoral, femoral, and popliteal veins are patent without thrombus. Normal compressibility, augmentation response and Doppler waveforms. The left calf veins were not visualized. Left superficial veins: Saphenofemoral junction is patent without thrombus. IMPRESSION: No deep vein thrombosis in the veins imaged in both lower extremities. Electronically signed by: González Mckoy On 07/31/2021 02:34:52 AM
[2021-07-31] MEDS ORDERED: HEPARIN SOD (PORCINE) 5000UNITS/ML 1ML VIAL/SYRINGE IV PRN (03:00)
[2021-07-31] MEDS ORDERED: D5W 1,000 ML IV SCH (05:15)
[2021-07-31] MEDS ORDERED: ALBUTEROL 90 MCG/ACT 8GM HFA INHALER INH PRN (05:15)
[2021-07-31] MEDS: HEPARIN DRIP 25,000 UNITS in IV 1 EA IV SCH ×3 (05:36→22:15)
[2021-07-31] MEDS: LEVOTHYROXINE 25MCG TABLET (0.025MG) PO SCH (06:00)
[2021-07-31 06:16] LABS: HEMATOCRIT 30.9 % (36.0-47.0); HEMOGLOBIN 9.7 g/dl (12.0-15.5); MEAN CORPUSCULAR HEMOGLOBIN 32.2 pg (27.0-33.0); MEAN CORPUSCULAR HGB CONC 31.4 g/dl (32.0-36.5); MEAN CORPUSCULAR VOLUME 102.7 fl (80.0-96.0); PLATELET COUNT, AUTOMATED 146 10^3/uL (150-450); RED BLOOD COUNT 3.01 10^6/uL (4.00-5.40); WHITE BLOOD COUNT 11.9 10^3/uL (4.0-10.0)
[2021-07-31 07:31] LABS: ALBUMIN 1.6 GM/DL (3.2-5.2); ALT/SGPT 248 U/L (12-78); BILIRUBIN,TOTAL 1.6 MG/DL (0.2-1.0); BLOOD UREA NITROGEN 21 MG/DL (7-18); CALCIUM LEVEL 6.4 MG/DL (8.5-10.1); CARBON DIOXIDE LEVEL 16 MEQ/L (21-32); CHLORIDE LEVEL 110 MEQ/L (98-107); CREATININE FOR GFR 2.04 MG/DL (0.55-1.30); GLOMERULAR FILTRATION RATE 28.3 (>58); GLUCOSE, FASTING 317 MG/DL (70-100); MAGNESIUM LEVEL 2.3 MG/DL (1.8-2.4); POTASSIUM SERUM 3.3 MEQ/L (3.5-5.1); SODIUM LEVEL 142 MEQ/L (136-145); TOTAL PROTEIN 4.5 GM/DL (6.4-8.2); VALPROIC ACID (DEPAKOTE) < 3.0 UG/ML (50.0-100.0)
[2021-07-31] MEDS ORDERED: THIAMINE 100 MG TAB PO STA (07:38)
[2021-07-31] MEDS ORDERED: KCL 20MEQ in NS 1000ML 1,000 ML IV SCH (07:45)
[2021-07-31] MEDS ORDERED: ALPRAZolam 0.5 MG TAB PO PRN (07:50)
[2021-07-31 08:00] VITALS: BP 146/91
[2021-07-31] MEDS ORDERED: POTASSIUM CHLORIDE 10MEQ SR TABLET PO ONE (08:00)
[2021-07-31] MEDS ORDERED: flumazeniL 0.5 MG/5 ML VIAL IV STA (08:47)
[2021-07-31] MEDS: DIVALPROEX 250 MG TAB PO SCH ×2 (09:00→20:38)
[2021-07-31] MEDS: MAGNESIUM OXIDE 400MG TAB (MAG-OX) PO SCH (09:00)
[2021-07-31] MEDS ORDERED: CALCIUM GLUCONATE 1,000 MG in D5W MINI-BAG PLUS 100 ML IV ONE ×2 (09:00→19:00)
[2021-07-31] MEDS: POTASSIUM CHLORIDE 10MEQ SR TABLET PO SCH ×2 (09:00→20:38)
[2021-07-31] MEDS: HYDROXYCHLOROQUINE 200 MG TAB PO SCH ×2 (09:00→20:38)
[2021-07-31 09:19] LABS: PROLACTIN 36.8 NG/ML; TROPONIN I 0.2 NG/ML (< 0.10)
[2021-07-31 09:38] LABS: ABG BASE EXCESS -5.2 (-2.0-2.0); ABG HCO3 17.5 MEQ/L (22.0-26.0); ABG PARTIAL PRESSURE CO2 25.5 mmHg (35.0-45.0); ABG PARTIAL PRESSURE O2 106.5 mmHg (75.0-100.0); ABG STANDARD HCO3 20.1 MEQ/L (22.0-26.0); ABG TOTAL CO2 18.3 MEQ/L (22.0-29.0); ABG pH (ARTERIAL) 7.454 UNITS (7.350-7.450)
[2021-07-31 09:59] LABS: FOLATE 4.7 NG/ML; VITAMIN B12 LEVEL > 2000 PG/ML
[2021-07-31 11:48] LABS: INR 1.18; PROTHROMBIN TIME 15.4 SECONDS (12.7-14.5)
[2021-07-31 11:50] LABS: PARTIAL THROMBOPLASTIN TIME 87.2 SECONDS (25.9-37.0)
[2021-07-31 12:00] VITALS: BP 153/109
[2021-07-31] MEDS ORDERED: VANCOMYCIN HCL 1,000 MG, VIAL MATE ADAPTER 1 EACH in NS 250 ML IV SCH (12:00)
[2021-07-31 12:03] LABS: CREATININE FOR GFR 1.5 MG/DL (0.55-1.30); GLOMERULAR FILTRATION RATE 40.3 (>58); POTASSIUM SERUM 3.5 MEQ/L (3.5-5.1)
--- NOTE | 2021-07-31 12:46 | IPNPDOC ---
Date Seen The patient was seen on 07/31/21. Progress Note SUBJECTIVE: Patient is a 41-year-old female who is obtunded and is unable to provide history. She was found by her friends on the floor of her home. Friends called EMS to bring her in. She is currently only responsive to painful stimuli and sternal rubs. Later on in the afternoon around 4pm she was seen again. At this time she was awake and able to answer certain questions. She was AAOx1 but was able to tell me that she has a "10/10 headache and can I please have some sumatriptan. I take it for migraines". She was unable to recall what had happened and she does not remember anything. REVIEW of systems: Unable to obtain OBJECTIVE PHYSICAL EXAMINATION: VITAL SIGNS: Please see below. GENERAL: Pallor noted in the Right arm; arousable only to painful stimuli and sternal rubs; HEENT: PERRLA; divergent gaze; mucous membranes dry CARDIOVASCULAR: Tachycardic; regular rate and rhythm; no murmurs noted RESPIRATORY: Clear to auscultation bilaterally; no wheezes, rhonchi or rales noted ABDOMINAL: Normal active bowel sounds; soft nondistended; no reaction/grimace to palpation; small patch of ecchymosis on abdomen EXTREMITIES: Extensive ecchymosis in various stages of healing on bilateral upper and lower extremities; she has spontaneous jerking motions of all 4 e xtremities; no pitting edema lower extremities; radial pulses intact; pedal pulses intact NEUROLOGICAL: GCS 5 (no eye opening, no verbal response, flexion with pain) LABORATORY DATA, IMAGING STUDIES, MICROBIOLOGY: Please see below. IMAGIN/14 CT spine w/o contrast: "1. Patchy peripheral ground-glass infiltrate is seen in the upper lung rios of concern for possible COVID-19 pneumonia. 2. No evidence of an acute cervical spine abnormality." 07/30 CXR: "No acute pulmonary disease." 07/[address] w/o contrast: "1. There is divergent gaze. 2. No acute intracranial process is identified." 07/30 CT ABD/PEL w/o contrast: "1. Region of low attenuation in the right main pulmonary artery and right lower lobar pulmonary artery (image 1 of the axial series 201), which is suspicious for a pulmonary embolism. A CTA chest with intravenous contrast is suggested for further evaluation. 2. Commonly reported imaging features of COVID-19 pneumonia are present. Other processes such as influenza pneumonia and organizing pneumonia, as can be seen with drug toxicity and connective tissue disease, can cause a similar imaging pattern. (Reference: Lexa) 3. Enlarged, fatty liver. 4. Healing fractures of the right anterior 6th and 7th ribs and right posterior 10th and 11th ribs, which can also be seen in the CT abdomen and pelvis on 07/18/2021." 07/31 LE Vein US: "No deep vein thrombosis in the veins imaged in both lower extremities." ASSESSMENT AND PLAN: This is a 41-year-old female with extensive psych history as well as migraines, Sjogren's, SLE, RA, HTN, asthma, fatty liver prese nts after being found on floor by friends in her home. PROBLEMS: # Neurologic: 1. Altered Mental Status possibly due to polypharmacy -Hold all home meds except Depakote -No improvement with Narcan -Ordered flumazenil (not given; patient because more awake) -Pending vitamin B12, prolactin -Aspiration precautions 2. Metabolic acidosis 2/2 possible uremia or acid-base disorder -ammonia <10.0 -will correct with NS @ 125cc # Pulmonary: 1. Possible PE -CT abd/pelvis showing possible PE -IV heparin drip -CTA cannot be completed at this time due to elevated BUN 21 and creatinine 2.04; will get perfusion scan when renal functions returned to baseline and CTA for further evaluation 2. SIRS with leukocytosis of 14 and tachycardia; possible interstitial pneumonia -Procalcitonin 2.05 -Pending sputum culture; urine legionella ag, mycoplasma pneumonia IgG and IgM, Strep pneumoniae -IV doxycycline -Vaccination status for Covid unknown; no Covid positive test noted on this hospitalization or previous hospitalizations # Genitourinary: 1. Acute kidney injury -Normal saline at rate of 125 cc/hr; will get a PICC line as patient has poor peripheral access -Baseline BUN ~5; baseline creatinine 0.8 -Patient is not oliguric; making dark flores urine seen in catheter -Will continue to monitor I's and O's 2. Rhabdomyolysis -Normal saline at rate of 125 cc/hr -CK levels: 43843 -> 65082; will continue to trend CK levels -UA: myoglobinuria -Martínez catheter in place draining dark/flores urine; will continue to monitor I's and O's -Will discontinue all nephrotoxic drugs #Gastrointestinal: 1. Transaminitis and bilirubinemia -Patient does have a history of fatty liver; potential advancement of liver disease -Possible drug-induced toxicity: Hold all home meds except Depakote -Liver function tests every 8 hours 2. Elevated GGT, AST, ALT points towards cholestatic issue however patient has had a cholecystectomy and images have shown no dilated ducts -Possible drug-induced toxicity #Cardiovascular: 1. Possible type II PR -Will obtain 2D echocardiogram -EKG: no acute ST changes -Troponins downtrend 0.22 -> 0.14 #Endocrinology: 1. Anemia of chronic disease -Continue to monitor 2. Previous history of hypoglycemia -Fingerstick glucose checks every 6 hours #Psych -Past medical history of anxiety, depression, history of suicide ideation, bipolar, bulimia, fibromyalgia -continue Depakote; hold all other medications DISPOSITION: Pending clinical improvement VS, [facility] Vital Signs Date Time Temp Pulse Resp B/P (MAP) Pulse Ox O2 Delivery O2 Flow Rate FiO2 07/31/21 01:57 97 18 154/84 (107) 94 07/30/21 16:44 Room Air 07/30/21 14:42 97.1 I&O- Last 24 Hours up to 6 AM 07/31/21 05:59 Intake Total 1100 ml Output Total 850 ml Balance 250 ml Laboratory Data 24H LABS Laboratory Tests 2 07/30/21 17:42: Anion Gap 12, Glomerular Filtration Rate 24.3L, Calcium Level 7.5L, Total B ilirubin 2.4H, Gamma Glutamyl Transferase 304H, Aspartate Amino Transf (AST/SGOT) 887H, Alanine Aminotransferase (ALT/SGPT) 249H, Alkaline Phosphatase 124H, Total Creatine Kinase 32017M, Total Protein 5.2L, Albumin 2.0L, Albumin/Globulin Ratio 0.6L, Salicylates Level 3.6L, Acetaminophen Level 6.0L, Ethyl Alcohol Level < 0.003, Hepatitis A IgM Antibody NEGATIVE, Hepatitis B Surface Antigen NEGATIVE, Hepatitis B Core IgM Antibody NEGATIVE, Hepatitis C Antibody Index 0.0 07/30/21 19:31: Immature Granulocyte % (Auto) 0.4, Neutrophils (%) (Auto) 83.3H, Lymphocytes (%) (Auto) 10.9L, Monocytes (%) (Auto) 5.3, Eosinophils (%) (Auto) 0.0, Basophils (%) (Auto) 0.1, Neutrophils # (Auto) 11.6H, Lymphocytes # (Auto) 1.5, Monocytes # (Auto) 0.7, Eosinophils # (Auto) 0.0, Basophils # (Auto) 0.0, Nucleated Red Blood Cells % (auto) 0.0 07/30/21 19:34: Lactic Acid Level 2.0 07/30/21 22:47: Urine Color FLORES, Urine Appearance HAZY, Urine pH 5.0, Urine Specific [place] 1.027, Urine Protein 2+H, Urine Glucose (UA) NEGATIVE, Urine Ketones NEGATIVE, Urine Blood 2+H, Urine Nitrite NEGATIVE, Urine Bilirubin 2+H, Urine Urobilinogen 4.0H, Urine Leukocyte Esterase NEGATIVE, Urine WBC (Auto) 5H, Urine RBC (Auto) 3, Urine Hyaline Casts (Auto) 17, Urine Bacteria (Auto) 1+H, Urine Squamous Epithelial Cells 1, Urine Granular Casts (Auto) 5, Urine Mucus (Auto) SMALL, Urine Sperm (Auto) , Urine Myoglobin POSITIVEH, Urine Opiates Screen NEGATIVE, Urine Methadone Screen NEGATIVE, Urine Barbiturates Screen NEGATIVE, Urine Phencyclidine Screen NEGATIVE, Urine Amphetamines Screen NEGATIVE, Urine Benzodiazepines Screen POSITIVEH, Urine Cocaine Metabolite Screen NEGATIVE, Urine Cannabinoids Screen NEGATIVE 07/31/21 00:42: Prothrombin Time 17.0H, Prothromb Time International Ratio 1.34, Activated Partial Thromboplast Time 25.3, Blood Gas Bicarbonate Standard 20.9, Venous Blood pH 7.398, Venous Blood Partial Pressure CO2 32.1L, Venous Blood Partial Pressure O2 161.5H, Venous Blood Total Carbon Dioxide 20.3L, Venous Blood HCO3 19.3L, Venous Blood Oxygen Saturation 99.1H, Venous Blood Base Excess -4.4L, Anion Gap 15, Glomerular Filtration Rate 27.5L, Calcium Level 6.6L, Iron Level 73, Total Iron Binding Capacity 51L, Transferrin % Saturation 143.1H, Ferritin 848H, Total Bilirubin 1.9H, Aspartate Amino Transf (AST/SGOT) 836H, Alanine Aminotransferase (ALT/SGPT) 240H, Alkaline Phosphatase 112, Ammonia < 10, Myoglobin 28243X, Troponin I 0.22H, AI-Nqf-W-Type Natriuretic Peptide 3037H, Total Protein 4.4L, Albumin 1.7L, Albumin/Globulin Ratio 0.6L, Thyroid Stimulating Hormone (TSH) 1.240, Free Thyroxine 0.56L 07/31/21 05:34: Anion Gap 16, Glomerular Filtration Rate 28.3L, Calcium Level 6.4L, Total B ilirubin 1.6H, Aspartate Amino Transf (AST/SGOT) 804H, Alanine Aminotransferase (ALT/SGPT) 248H, Alkaline Phosphatase 120H, Total Protein 4.5L, Albumin 1.6L, Albumin/Globulin Ratio 0.6L, Nucleated Red Blood Cells % (auto) 0.0, Magnesium Level 2.3, Valproic Acid (Depakene) Level < 3.0L 07/31/21 06:29: Whole Blood Ionized Calcium 3.8L CBC/BMP Laboratory Tests 07/30/21 17:42 07/30/21 19:31 07/31/21 00:42 07/31/21 05:34 Microbiology Microbiology 07/30/21 Respiratory Virus Panel (PCR) ([facility]) - Final, Complete GME ATTESTATION GME ATTESTATION My faculty preceptor for this patient encounter was physically present during the encounter and was fully available. All aspects of the patient interview, ex amination, medical decision making process, and medical care plan development were reviewed and approved by the faculty preceptor. The faculty preceptor is aware and concurs with the plan as stated in the body of this note and will attest to such by his/her cosignature. ATTENDING NOTE I, Bill Godfrey MD, have independently examined this patient and performed my own physical exam, as well as reviewed the documentation and edited where necessary. I have discussed in detail with the resident / student the findings and plan of treatment as documented by the resident / student and edited their note. I agree with their findings and treatment plan and have edited their docum entation. AstonShelli DO Jul 31, 2021 09:43 BILL GODFREY MD Aug 02, 2021 14:45
[2021-07-31 12:47] LABS: ALBUMIN 1.6 GM/DL (3.2-5.2); BILIRUBIN,DIRECT 1.1 MG/DL (0.0-0.2); BILIRUBIN,TOTAL 1.7 MG/DL (0.2-1.0); TOTAL PROTEIN 4.9 GM/DL (6.4-8.2)
[2021-07-31] MEDS ORDERED: LIDOCAINE 1% MDV 20ML VIAL As Ordered ONE (13:30)
[2021-07-31] MEDS: NS 1,000 ML IV SCH ×2 (15:31→20:35)
[2021-07-31] MEDS: DOXYCYCLINE HYCLATE 100 MG in D5W MINI-BAG PLUS 100 ML IV SCH ×2 (15:32→23:58)
--- NOTE | 2021-07-31 15:38 | REP ---
INDICATION: poor access and unconscious and needs IV fluids for PARAS. COMPARISON: None. TECHNIQUE: The procedure was performed under the direct supervision of Dr. Gong. The risks and benefits of the procedure were explained to the patient and informed consent was obtained. The right brachial vein was localized using ultrasound guidance. The skin was prepped and draped in a sterile fashion. 1 mL of 1% lidocaine was used as a local anesthetic. Using ultrasound guidance the brachial vein was cannulated and a 0.018 guidewire was inserted and advanced to the SVC using fluoroscopic guidance, and last image hold technology. The needle was removed and a 5 Guinean dilator and peel-away sheath was inserted over the guide wire. A 5 [place] dual lumen catheter was cut to length of 37 cm. The dilator was removed and the catheter was inserted over the guide wire with the tip ending in the SVC. The peel-away sheath was removed and the catheter was flushed with heparinized saline as per Hospital protocol. The catheter was affixed to the skin and a sterile dressing was applied. Estimated blood loss: Less than 1 mL The patient tolerated the procedure well and there were no immediate complications. 0.2 minutes of fluoro time was utilized for this procedure. FINDINGS: None IMPRESSION: PICC line insertion right brachial vein with the tip ending in the SVC. <Electronically signed by Julio Cesar Prieto > 07/31/21 1535 <Electronically signed by Dawson Gong > 07/31/21 1533
[2021-07-31] MEDS ORDERED: SUMAtriptan SUCCINATE 6 MG/0.5 ML VIAL SC ONE (15:45)
[2021-07-31 16:00] VITALS: BP 149/116
[2021-07-31] MEDS: SODIUM CHLORIDE 0.9% INJ 10 ML SYR IV SCH (18:00)
[2021-07-31 18:42] LABS: ALBUMIN 1.3 GM/DL (3.2-5.2); ALT/SGPT 215 U/L (12-78); BILIRUBIN,TOTAL 1.3 MG/DL (0.2-1.0); BLOOD UREA NITROGEN 21 MG/DL (7-18); CALCIUM LEVEL 6.8 MG/DL (8.5-10.1); CARBON DIOXIDE LEVEL 20 MEQ/L (21-32); CHLORIDE LEVEL 115 MEQ/L (98-107); CREATININE FOR GFR 1.04 MG/DL (0.55-1.30); GLOMERULAR FILTRATION RATE > 60.0 (>58); GLUCOSE, FASTING 87 MG/DL (70-100); POTASSIUM SERUM 2.9 MEQ/L (3.5-5.1); SODIUM LEVEL 145 MEQ/L (136-145)
[2021-07-31] MEDS ORDERED: KCL 10MEQ/100ML SWI (KRUN) 10 MEQ in IV 1 EA IV SCH ×9 (18:45→18:50)
[2021-07-31 20:00] VITALS: BP 156/99
[2021-07-31] MEDS: KCL 10MEQ/100ML SWI (KRUN) 10 MEQ in IV 1 EA IV SCH ×3 (20:35→23:58)
[2021-08-01] VITALS: BP 146/92
[2021-08-01 00:50] LABS: ALBUMIN 1.5 GM/DL (3.2-5.2); ALT/SGPT 223 U/L (12-78); BILIRUBIN,DIRECT 0.8 MG/DL (0.0-0.2); BILIRUBIN,TOTAL 1.3 MG/DL (0.2-1.0); BLOOD UREA NITROGEN 21 MG/DL (7-18); CALCIUM LEVEL 7.3 MG/DL (8.5-10.1); CARBON DIOXIDE LEVEL 21 MEQ/L (21-32); CHLORIDE LEVEL 108 MEQ/L (98-107); CREATININE FOR GFR 0.93 MG/DL (0.55-1.30); GLOMERULAR FILTRATION RATE > 60.0 (>58); GLUCOSE, FASTING 74 MG/DL (70-100); POTASSIUM SERUM 3.7 MEQ/L (3.5-5.1); SODIUM LEVEL 143 MEQ/L (136-145); TOTAL PROTEIN 4.2 GM/DL (6.4-8.2)
[2021-08-01 04:00] VITALS: BP 156/100
[2021-08-01] MEDS: NS 1,000 ML IV SCH ×3 (04:17→23:13)
[2021-08-01 04:28] LABS: HEMOGLOBIN 8.8 g/dl (12.0-15.5); MEAN CORPUSCULAR HEMOGLOBIN 31.5 pg (27.0-33.0); MEAN CORPUSCULAR HGB CONC 31.4 g/dl (32.0-36.5); MEAN CORPUSCULAR VOLUME 100.4 fl (80.0-96.0); RED BLOOD COUNT 2.79 10^6/uL (4.00-5.40); WHITE BLOOD COUNT 6.8 10^3/uL (4.0-10.0)
[2021-08-01 04:44] LABS: PLATELET COUNT, AUTOMATED 96 10^3/uL (150-450)
[2021-08-01] MEDS: LEVOTHYROXINE 25MCG TABLET (0.025MG) PO SCH (05:01)
[2021-08-01] MEDS: SODIUM CHLORIDE 0.9% INJ 10 ML SYR IV SCH ×2 (05:15→17:55)
[2021-08-01 05:22] LABS: BLOOD UREA NITROGEN 22 MG/DL (7-18); CARBON DIOXIDE LEVEL 21 MEQ/L (21-32); CHLORIDE LEVEL 111 MEQ/L (98-107); CREATININE FOR GFR 0.73 MG/DL (0.55-1.30); GLOMERULAR FILTRATION RATE > 60.0 (>58); GLUCOSE, FASTING 70 MG/DL (70-100); POTASSIUM SERUM 3.9 MEQ/L (3.5-5.1); SODIUM LEVEL 144 MEQ/L (136-145)
[2021-08-01 05:23] LABS: ALBUMIN 1.4 GM/DL (3.2-5.2); ALT/SGPT 215 U/L (12-78); BILIRUBIN,DIRECT 0.9 MG/DL (0.0-0.2); BILIRUBIN,TOTAL 1.4 MG/DL (0.2-1.0); CALCIUM LEVEL 7.1 MG/DL (8.5-10.1); CPK CREATINE PHOSPHOKINASE 2685 U/L (26-192); MAGNESIUM LEVEL 1.8 MG/DL (1.8-2.4); TOTAL PROTEIN 4.1 GM/DL (6.4-8.2)
[2021-08-01] MEDS: HEPARIN DRIP 25,000 UNITS in IV 1 EA IV SCH (08:35)
--- NOTE | 2021-08-01 08:38 | ECGEPIP ---
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
[2021-08-01] MEDS ORDERED: ENOXAPARIN 80MG/0.8ML SYRINGE (J1650 PER 10MG) SC SCH (11:00)
[2021-08-01] MEDS: GABAPENTIN 100 MG CAP PO SCH ×4 (11:37→19:57)
[2021-08-01] MEDS: DOXYCYCLINE HYCLATE 100 MG in D5W MINI-BAG PLUS 100 ML IV SCH ×2 (11:37→23:13)
[2021-08-01] MEDS: POTASSIUM CHLORIDE 10MEQ SR TABLET PO SCH ×2 (11:37→19:57)
[2021-08-01] MEDS: DIVALPROEX 250 MG TAB PO SCH ×2 (11:37→19:57)
[2021-08-01] MEDS: MAGNESIUM OXIDE 400MG TAB (MAG-OX) PO SCH (11:37)
[2021-08-01] MEDS: HYDROXYCHLOROQUINE 200 MG TAB PO SCH ×2 (11:46→19:58)
--- NOTE | 2021-08-01 11:47 | IPNPDOC ---
Date Seen The patient was seen on 08/01/21. Progress Note SUBJECTIVE: Patient is a 41-year-old female who is obtunded and is unable to provide history. She was found by her friends on the floor of her home. Friends called EMS to bring her in. This morning she was responsive to calling of her name and was able to answer some questions as well as perform simple tasks. She was AAOx1 at this time. Was able to state that she lives at home with her parents. She is still having some headaches that is a 10/10 and asked for Tylenol. REVIEW OF SYSTEMS: Constitutional: feels cold HEENT: has a headache Unable to obtain more ROS OBJECTIVE PHYSICAL EXAMINATION: VITAL SIGNS: Please see below. GENERAL: No acute distress; lethargic HEENT: PERRLA; mucous membranes dry CARDIOVASCULAR: Tachycardic; regular rate and rhythm; no murmurs noted RESPIRATORY: Clear to auscultation bilaterally; no wheezes, rhonchi or rales noted ABDOMINAL: Normal active bowel sounds; soft nondistended; no tenderness to palpation; small patch of ecchymosis on abdomen EXTREMITIES: Extensive ecchymosis in various stages of healing on bilateral upper and lower extremities; no pitting edema lower extremities; radial pulses intact; pedal pulses intact; able to learning officer fingers weakly, wiggle fingers and toes; unable to access more because patient closed her eyes NEUROLOGICAL: GCS 14 (eye response 4, verbal response 4, motor response 6) LABORATORY DATA, IMAGING STUDIES, MICROBIOLOGY: Please see below. IMAGIN/14 CT spine w/o contrast: "1. Patchy peripheral ground-glass infiltrate is seen in the upper lung rios of concern for possible COVID-19 pneumonia. 2. No evidence of an acute cervical spine abnormality." 07/30 CXR: "No acute pulmonary disease." 07/[address] w/o contrast: "1. There is divergent gaze. 2. No acute intracranial process is identified." 07/30 CT ABD/PEL w/o contrast: "1. Region of low attenuation in the right main pulmonary artery and right lower lobar pulmonary artery (image 1 of the axial series 201), which is suspicious for a pulmonary embolism. A CTA chest with intravenous contrast is suggested for further evaluation. 2. Commonly reported imaging features of COVID-19 pneumonia are present. Other processes such as influenza pneumonia and organizing pneumonia, as can be seen with drug toxicity and connective tissue disease, can cause a similar imaging pattern. (Reference: Lexa) 3. Enlarged, fatty liver. 4. Healing fractures of the right anterior 6th and 7th ribs and right posterior 10th and 11th ribs, which can also be seen in the CT abdomen and pelvis on 07/18/2021." 07/31 LE Vein US: "No deep vein thrombosis in the veins imaged in both lower extremities." ASSESSMENT AND PLAN: This is a 41-year-old female with extensive psych history as well as migraines, Sjogren's, SLE, RA, HTN, asthma, fatty liver presents after being found on floor by friends in her home. PROBLEMS: # Altered Mental Status possibly due to polypharmacy -Hold all home meds except Depakote; reduced dose of gabapentin -c/w IVF NS @ 75cc/hr -Initially no improvement with Narcan -Vitamin B12 >2000, folate 4.7 -ammonia <10.0 -Aspiration precautions; pending swallow eval # Possible PE -CT abd/pelvis showing possible PE -d/c heparin drip -start Lovenox 70 daily -BUN 22 and Cr 0.83 (downtrended significantly from yesterday); will consider CTA tomorrow # Acute kidney injury -c/w IVF NS @ 75cc/hr -PICC line on Right arm -BUN 22 and Cr 0.83 (downtrended significantly from yesterday) -Patient is not oliguric; making reddish urine seen in catheter -Will continue to monitor I's and O's # SIRS with leukocytosis of 14 and tachycardia; possible interstitial pneumonia -Procalcitonin 2.05 -Pending sputum culture; urine legionella ag, mycoplasma pneumonia IgG and IgM, Strep pneumoniae -IV doxycycline -Vaccination status for Covid unknown; no Covid positive test noted on this hospitalization or previous hospitalizations # Rhabdomyolysis -c/w IVF NS @ 75cc/hr -CK levels: downtrended to 2685; will continue to trend CK levels -UA: myoglobinuria -Martínez catheter in place making reddish urine seen in catheter; will continue to monitor I's and O's -Will discontinue all nephrotoxic drugs # Hypokalemia -potassium of 2.9 - repleted with 6 K-runs - now 3.9 # Transaminitis and bilirubinemia -Patient does have a history of fatty liver; potential advancement of liver disease -Possible drug-induced toxicity: Hold all home meds except Depakote and reduced dose of gabapentin -Liver function tests every 8 hours -Elevated GGT, AST, ALT points towards cholestatic issue however patient has had a cholecystectomy and images have shown no dilated ducts -Possible drug-induced toxicity # Type II MD -Will obtain 2D echocardiogram -EKG: no acute ST changes -Troponins downtrend 0.22 -> 0.14 # Anemia -likely anemia of chronic disease -Continue to monitor # Previous history of hypoglycemia -Fingerstick glucose checks every 6 hours # Migraines - give sumatriptan 3mg subcutaneous as needed for headaches # Psych -Past medical history of anxiety, depression, history of suicide ideation, bipolar, bulimia, fibromyalgia -continue Depakote and reduced dose of gabapentin DISPOSITION: Pending clinical improvement VS, I&O, 24H, Fishbone Vital Signs/I&O Vital Signs Date Time Temp Pulse Resp B/P (MAP) Pulse Ox O2 Delivery O2 Flow Rate FiO2 08/01/21 08:00 98.6 104 20 97 Room Air 08/01/21 04:00 156/100 (118) I&O- Last 24 Hours up to 6 AM 08/01/21 06:00 Intake Total 1856 ml Output Total 250 ml Balance 1606 ml Laboratory Data 24H LABS Laboratory Tests 2 07/31/21 11:25: Prothrombin Time 15.4H, Prothromb Time International Ratio 1.18, Activated Partial Thromboplast Time 87.2H, Anion Gap 14, Glomerular Filtration Rate 40.3L, Calcium Level 7.0L, Total Bilirubin 1.7H, Direct Bilirubin 1.1H, Aspartate Amino Transf (AST/SGOT) 707H, Alanine Aminotransferase (ALT/SGPT) 252H, Alkaline Phosphatase 117, Total Creatine Kinase 8229H, Troponin I 0.14#H, Total Protein 4.9L, Albumin 1.6L, Albumin/Globulin Ratio 0.5L 07/31/21 15:11: Bedside Glucose (Misc Panel) 88 07/31/21 17:21: Activated Partial Thromboplast Time 160.1*H, Anion Gap 10, Glomerular Filtration Rate > 60.0, Calcium Level 6.8L, Total Bilirubin 1.3H, Aspartate Amino Transf (AST/SGOT) 550H, Alanine Aminotransferase (ALT/SGPT) 215H, Alkaline Phosphatase 102, Total Protein 4.0L, Albumin 1.3L, Albumin/Globulin Ratio 0.5L 07/31/21 17:22: 08/01/21 00:03: Anion Gap 14, Glomerular Filtration Rate > 60.0, Calcium Level 7.3L, Total Bilirubin 1.3H, Direct Bilirubin 0.8H, Aspartate Amino Transf (AST/SGOT) 521H, Alanine Aminotransferase (ALT/SGPT) 223H, Alkaline Phosphatase 111, Total Protein 4.2L, Albumin 1.5L, Albumin/Globulin Ratio 0.6L 08/01/21 04:15: Anion Gap 12, Glomerular Filtration Rate > 60.0, Calcium Level 7.1L, Total Bilirubin 1.4H, Direct Bilirubin 0.9H, Aspartate Amino Transf (AST/SGOT) 452H, Alanine Aminotransferase (ALT/SGPT) 215H, Alkaline Phosphatase 106, Total Protein 4.1L, Albumin 1.4L, Albumin/Globulin Ratio 0.5L, Nucleated Red Blood Cells % (auto) 0.0, Immature Platelet Fraction 5.8, Activated Partial Thromboplast Time 80.8H, Magnesium Level 1.8, Total Creatine Kinase 2685H CBC/BMP Laboratory Tests 07/31/21 11:25 07/31/21 17:21 08/01/21 00:03 08/01/21 04:15 Microbiology Microbiology 07/30/21 Respiratory Virus Panel (PCR) ([facility]) - Final, Complete GME ATTESTATION GME ATTESTATION My faculty preceptor for this patient encounter was physically present during the encounter and was fully available. All aspects of the patient interview, examination, medical decision making process, and medical care plan development were reviewed and approved by the faculty preceptor. The faculty preceptor is aware and concurs with the plan as stated in the body of this note and will attest to such by his/her cosignature. ATTENDING NOTE I, Bill Godfrey MD, have independently examined this patient and performed my own physical exam, as well as reviewed the documentation and edited where necessary. I have discussed in detail with the resident / student the findings and plan of treatment as documented by the resident / student and edited their note. I agree with their findings and treatment plan and have edited their documentation. Total time spent on this discharge including coordination of care, review of chart and actual documentation is around 35 minutes Shelli Clancy DO Aug 01, 2021 11:47 BILL GODFREY MD Aug 02, 2021 14:51
[2021-08-01 12:00] VITALS: BP 167/94
[2021-08-01 16:00] VITALS: BP 145/97
[2021-08-01 17:17] LABS: ALBUMIN 1.4 GM/DL (3.2-5.2); BILIRUBIN,DIRECT 0.8 MG/DL (0.0-0.2); BILIRUBIN,TOTAL 1.4 MG/DL (0.2-1.0); TOTAL PROTEIN 4.2 GM/DL (6.4-8.2)
[2021-08-01 20:00] VITALS: BP 142/101
[2021-08-02] VITALS: BP 169/97
[2021-08-02 04:00] VITALS: BP 155/96
[2021-08-02] MEDS: LEVOTHYROXINE 25MCG TABLET (0.025MG) PO SCH (04:44)
[2021-08-02] MEDS: SODIUM CHLORIDE 0.9% INJ 10 ML SYR IV SCH ×2 (05:45→18:17)
[2021-08-02 06:09] LABS: HEMATOCRIT 26.2 % (36.0-47.0); HEMOGLOBIN 8.5 g/dl (12.0-15.5); MEAN CORPUSCULAR HEMOGLOBIN 32.2 pg (27.0-33.0); MEAN CORPUSCULAR HGB CONC 32.4 g/dl (32.0-36.5); MEAN CORPUSCULAR VOLUME 99.2 fl (80.0-96.0); PLATELET COUNT, AUTOMATED 78 10^3/uL (150-450); RED BLOOD COUNT 2.64 10^6/uL (4.00-5.40); WHITE BLOOD COUNT 6.7 10^3/uL (4.0-10.0)
[2021-08-02 06:41] LABS: ALBUMIN 1.4 GM/DL (3.2-5.2); ALT/SGPT 182 U/L (12-78); BILIRUBIN,DIRECT 0.8 MG/DL (0.0-0.2); BILIRUBIN,TOTAL 1.3 MG/DL (0.2-1.0); BLOOD UREA NITROGEN 21 MG/DL (7-18); CALCIUM LEVEL 7.2 MG/DL (8.5-10.1); CARBON DIOXIDE LEVEL 20 MEQ/L (21-32); CHLORIDE LEVEL 113 MEQ/L (98-107); CPK CREATINE PHOSPHOKINASE 1034 U/L (26-192); CREATININE FOR GFR 0.47 MG/DL (0.55-1.30); GLOMERULAR FILTRATION RATE > 60.0 (>58); GLUCOSE, FASTING 62 MG/DL (70-100); MAGNESIUM LEVEL 1.8 MG/DL (1.8-2.4); POTASSIUM SERUM 3.8 MEQ/L (3.5-5.1); SODIUM LEVEL 145 MEQ/L (136-145); TOTAL PROTEIN 3.9 GM/DL (6.4-8.2)
[2021-08-02] MEDS ORDERED: DEXTROSE 50% 50 ML SYRINGE As Ordered ONE (06:54)
[2021-08-02] MEDS ORDERED: GLUCOSE 4GM CHEW TABLET PO PRN (07:00)
[2021-08-02] MEDS ORDERED: GLUCAGON INJ 1MG VIAL SC PRN (07:00)
[2021-08-02] MEDS: DEXTROSE 50% 50 ML SYRINGE IV PRN (07:05)
[2021-08-02] MEDS ORDERED: THIAMINE 200MG 2ML VIAL IM ONE ×2 (08:00→12:00)
[2021-08-02] MEDS ORDERED: ENOXAPARIN 80MG/0.8ML SYRINGE (J1650 PER 10MG) SC SCH (08:00)
[2021-08-02 08:05] VITALS: BP 168/96
[2021-08-02] MEDS: POTASSIUM CHLORIDE 10MEQ SR TABLET PO SCH ×3 (09:00→21:49)
[2021-08-02] MEDS: MAGNESIUM OXIDE 400MG TAB (MAG-OX) PO SCH ×2 (09:00→09:19)
[2021-08-02] MEDS: DIVALPROEX 250 MG TAB PO SCH ×3 (09:00→21:49)
[2021-08-02] MEDS: HYDROXYCHLOROQUINE 200 MG TAB PO SCH ×3 (09:00→21:49)
[2021-08-02] MEDS: GABAPENTIN 100 MG CAP PO SCH ×3 (09:19→21:49)
[2021-08-02] MEDS ORDERED: ISOVUE-370 76% 100ML VIAL As Ordered ONE (09:24)
--- NOTE | 2021-08-02 10:19 | REP ---
INDICATION: R/o PE. CT abd/pelvis possible PE with improving creatinine COMPARISON: None. TECHNIQUE: Axial contrast enhanced images from the thoracic inlet to the upper abdomen using pulmonary embolus technique with multiplanar re-formations. 75 ml Isovue 370 intravenous contrast material administered without complication. This CT examination was performed using the following dose reduction techniques: Automated exposure control, adjustment of mA and/or kv according to the patient's size, and use of iterative reconstruction technique. FINDINGS: Satisfactory enhancement of the pulmonary vasculature is achieved and no filling defects are identified to suggest pulmonary embolus. Thoracic aorta is without aneurysm or dissection. No cardiomegaly or pericardial effusion. Lung rios demonstrate scattered ground-glass opacities/early alveolar infiltrates throughout the bilateral lung rios (left greater than right) as well as minimal bibasilar atelectasis and trace pleural fluid. Findings suggest an acute multifocal infectious/inflammatory process. No pneumothorax. Tracheobronchial tree is patent. No obvious adenopathy. Limited upper abdomen demonstrates marked hepatosteatosis. There is diffuse subcutaneous edema to the surrounding soft tissues. Skeletal structures are intact. IMPRESSION: 1. No evidence for pulmonary embolus. 2. Patchy opacities with minimal basilar atelectasis. Differential diagnosis includes multifocal infectious/inflammatory process including possible COVID-19 pulmonary disease. 3. Marked hepatosteatosis and mild to moderate diffuse subcutaneous edema to the surrounding visualized subcutaneous tissues. <Electronically signed by Jony Ley > 08/02/21 0059
[2021-08-02] MEDS: D5W/0.9% SODIUM CHLORIDE 1,000 ML IV SCH (10:32)
[2021-08-02] MEDS ORDERED: D5W/0.9% SODIUM CHLORIDE 1,000 ML IV SCH (11:30)
[2021-08-02 12:00] VITALS: BP 145/96
[2021-08-02] MEDS: DOXYCYCLINE HYCLATE 100 MG in D5W MINI-BAG PLUS 100 ML IV SCH ×2 (12:45→23:29)
--- NOTE | 2021-08-02 13:45 | IPNPDOC ---
Date Seen The patient was seen on 08/02/21. Progress Note SUBJECTIVE: Patient is a 41-year-old female who is obtunded and is unable to provide history. She was found by her friends on the floor of her home. Friends called EMS to bring her in. This morning she was seen awake in bed and able to answer questions as well as perform simple tasks. She was AAOx2 (unable to state where she was). She states that she really wants food and that she is feeling a little stuffy this morning. REVIEW OF SYSTEMS: Constitutional: feels cold, feels hungry this morning HEENT: has a headache Lungs: denies cough, wheezing, shortness of breath Heart: denies chest pain, palpations GI: has some abdominal pain and some nausea : denies burning with urination Skin: denies increased bruising OBJECTIVE PHYSICAL EXAMINATION: VITAL SIGNS: Please see below. GENERAL: No acute distress; lethargic HEENT: PERRLA; mucous membranes dry CARDIOVASCULAR: Tachycardic; regular rate and rhythm; no murmurs noted RESPIRATORY: Clear to auscultation bilaterally; no wheezes, rhonchi or rales noted ABDOMINAL: Normal active bowel sounds; soft nondistended; diffusely tenderness to palpation; small patch of ecchymosis on abdomen EXTREMITIES: Extensive ecchymosis in various stages of healing on bilateral upper and lower extremities; no pitting edema lower extremities; radial pulses intact; pedal pulses intact; able to porcelain buildup assistant fingers weakly, wiggle fingers and toe s NEUROLOGICAL: Cranial nerves II through XII grossly intact; no focal neurological deficits LABORATORY DATA, IMAGING STUDIES, MICROBIOLOGY: Please see below. IMAGIN/14 CT spine w/o contrast: "1. Patchy peripheral ground-glass infiltrate is seen in the upper lung rios of concern for possible COVID-19 pneumonia. 2. No evidence of an acute cervical spine abnormality." 07/30 CXR: "No acute pulmonary disease." 07/[address] w/o contrast: "1. There is divergent gaze. 2. No acute intracranial process is identified." 07/30 CT ABD/PEL w/o contrast: "1. Region of low attenuation in the right main pulmonary artery and right lower lobar pulmonary artery (image 1 of the axial series 201), which is suspicious for a pulmonary embolism. A CTA chest with intravenous contrast is suggested for further evaluation. 2. Commonly reported imaging features of COVID-19 pneumonia are present. Other processes such as influenza pneumonia and organizing pneumonia, as can be seen with drug toxicity and connective tissue disease, can cause a similar imaging pattern. (Reference: [place]) 3. Enlarged, fatty liver. 4. Healing fractures of the right anterior 6th and 7th ribs and right posterior 10th and 11th ribs, which can also be seen in the CT abdomen and pelvis on 07/18/2021." 07/31 LE Vein US: "No deep vein thrombosis in the veins imaged in both lower extremities." 08/02 CTA: "1. No evidence for pulmonary embolus. 2. Patchy opacities with minimal basilar atelectasis. Differential diagnosis includes multifocal infectious/inflammatory process including possible COVID-19 pulmonary disease. 3. Marked hepatosteatosis and mild to moderate diffuse subcutaneous edema to the surrounding visualized." subcutaneous tissues. ASSESSMENT AND PLAN: This is a 41-year-old female with extensive psych history as well as migraines, Sjogren's, SLE, RA, HTN, asthma, fatty liver presents after being found on floor by friends in her home. PROBLEMS: # Toxic Encephalopathy 2/ polypharmacy -Hold all home meds except Depakote and reduced dose of gabapentin (after hold home meds, pt had significant improvement in AMS) -c/w IVF D5W/NS @ 55cc/hr -Initially no improvement with Narcan -Vitamin B12 >2000, folate 4.7 -ammonia <10.0 -Aspiration precautions as pt gets lethargic; swallow eval: passed liquid swallow test # Possible interstitial pneumonia -SIRS with leukocytosis of 14 and tachycardia -Leukocytosis - resolved -Procalcitonin 2.05 -Pending sputum culture; urine legionella ag, mycoplasma pneumonia IgG and IgM, Strep pneumoniae -c/w IV doxycycline -patient has been vaccinated for COVID # Acute kidney injury -c/w IVF D5W/NS @ 55cc/hr -PICC line on Right arm -BUN 21 and Cr 0.47 (almost at baseline) -Patient is not oliguric; making dark flores urine seen in catheter -Will continue to monitor I's and O's # R/O PE -CTA showed no PE -d/c Lovenox 70 daily # Rhabdomyolysis -c/w IVF D5W/NS @ 55cc/hr -CK levels: downtrended to 1034; will continue to trend CK levels -UA: myoglobinuria -Martínez catheter in place making dark flores urine seen in catheter; will continue to monitor I's and O's -Hold all home meds except Depakote and reduced dose of gabapentin # Transaminitis and bilirubinemia -Patient does have a history of fatty liver; potential advancement of liver disease -Elevated GGT, AST, ALT points towards cholestatic issue however patient has had a cholecystectomy and images have shown no dilated ducts -Possible drug-induced toxicity: Hold all home meds except Depakote and reduced dose of gabapentin -c/w with monitoring LFTs -pt will need to follow up with Gastroenterology outpatient # Type II [place] -Will obtain 2D echocardiogram -EKG: no acute ST changes -Troponins downtrend 0.22 -> 0.14 - upon discharge, consider Aspirin and low dose statin due to potential atherosclerosis # Hypokalemia - resolved -potassium of 2.9 - repleted with 6 K-runs - now 3.9 # Anemia -likely anemia of chronic disease -Continue to monitor # Previous history of hypoglycemia -Fingerstick glucose checks every 6 hours -Hypoglycemic protocol # Migraines -give sumatriptan 3mg subcutaneous as needed for headaches # Psych -Past medical history of anxiety, depression, history of suicide ideation, bipolar, bulimia, fibromyalgia -continue Depakote and reduced dose of gabapentin DISPOSITION: pending placement; upon discharge she will need a very thorough medication reconciliation VS[facility] Vital Signs Date Time Temp Pulse Resp B/P (MAP) Pulse Ox O2 Delivery O2 Flow Rate FiO2 08/02/21 08:05 98.3 107 18 168/96 (120) 97 Room Air I&O- Last 24 Hours up to 6 AM0 08/02/21 06:00 Intake Total 1800 ml Output Total 1100 ml Balance 700 ml Laboratory Data 24H LABS Laboratory Tests 2 08/01/21 11:35: Bedside Glucose (Misc Panel) 70 08/01/21 16:21: Total Bilirubin 1.4H, Direct Bilirubin 0.8H, Aspartate Amino Transf (AST/SGOT) 363H, Alanine Aminotransferase (ALT/SGPT) 209H, Alkaline Phosphatase 112, Total Protein 4.2L, Albumin 1.4L, Albumin/Globulin Ratio 0.5L 08/01/21 17:31: Bedside Glucose (Misc Panel) 78 08/01/21 23:16: Bedside Glucose (Misc Panel) 62L 08/01/21 23:19: Bedside Glucose (Misc Panel) 77 08/02/21 05:44: Nucleated Red Blood Cells % (auto) 0.0, Immature Platelet Fraction 5.9, Anion Gap 12, Glomerular Filtration Rate > 60.0, Calcium Level 7.2L, Magnesium Level 1.8, Total Bilirubin 1.3H, Direct Bilirubin 0.8H, Aspartate Amino Transf (AST/SGOT) 273H, Alanine Aminotransferase (ALT/SGPT) 182H, Alkaline Phosphatase 111, Total Creatine Kinase 1034H, Total Protein 3.9L, Albumin 1.4L, Albumin/Globulin Ratio 0.6L 08/02/21 06:52: Bedside Glucose (Misc Panel) 55L 08/02/21 07:28: Bedside Glucose (Misc Panel) 96 CBC/BMP Laboratory Tests 08/02/21 05:44 Microbiology Microbiology 07/30/21 Respiratory Virus Panel (PCR) ([facility]) - Final, Complete GME ATTESTATION GME ATTESTATION My faculty preceptor for this patient encounter was physically present during the encounter and was fully available. All aspects of the patient interview, examination, medical decision making process, and medical care plan development were reviewed and approved by the faculty preceptor. The faculty preceptor is aware and concurs with the plan as stated in the body of this note and will attest to such by his/her cosignature. ATTENDING NOTE I, Bill Godfrey MD, have independently examined this patient and performed my own physical exam, as well as reviewed the documentation and edited where necessary. I have discussed in detail with the resident / student the findings and plan of treatment as documented by the resident / student and edited their note. I agree with their findings and treatment plan and have edited their documentation. Shelli Clancy DO Aug 02, 2021 08:21 BILL GODFREY MD Aug 21, 2021 11:09
[2021-08-02 16:00] VITALS: BP 135/89
[2021-08-02 17:24] LABS: PROTHROMBIN TIME 13.6 SECONDS (12.7-14.5)
[2021-08-02 17:25] LABS: PARTIAL THROMBOPLASTIN TIME 25.6 SECONDS (25.9-37.0)
[2021-08-02 17:29] LABS: ALBUMIN 1.5 GM/DL (3.2-5.2); BILIRUBIN,DIRECT 0.7 MG/DL (0.0-0.2); BILIRUBIN,TOTAL 1.2 MG/DL (0.2-1.0); TOTAL PROTEIN 4.3 GM/DL (6.4-8.2)
[2021-08-02 20:00] VITALS: BP 128/84
[2021-08-02] MEDS: SUCRALFATE 1 GM TAB PO SCH (23:28)
[2021-08-02] MEDS: MONTELUKAST 10 MG TAB PO SCH (23:29)
[2021-08-02] MEDS: DULoxetine 30MG CAPSULE (CYMBALTA) PO SCH (23:29)
[2021-08-03] VITALS: BP 141/85
[2021-08-03] MEDS: SUMAtriptan SUCCINATE 25 MG TAB PO PRN (00:45)
[2021-08-03 04:00] VITALS: BP 153/93
[2021-08-03] MEDS: SODIUM CHLORIDE 0.9% INJ 10 ML SYR IV SCH ×2 (05:16→17:21)
[2021-08-03] MEDS: D5W/0.9% SODIUM CHLORIDE 1,000 ML IV SCH (05:16)
[2021-08-03] MEDS: LEVOTHYROXINE 25MCG TABLET (0.025MG) PO SCH (05:16)
[2021-08-03 05:44] LABS: HEMATOCRIT 26.1 % (36.0-47.0); HEMOGLOBIN 8.3 g/dl (12.0-15.5); MEAN CORPUSCULAR HEMOGLOBIN 31.7 pg (27.0-33.0); MEAN CORPUSCULAR HGB CONC 31.8 g/dl (32.0-36.5); MEAN CORPUSCULAR VOLUME 99.6 fl (80.0-96.0); RED BLOOD COUNT 2.62 10^6/uL (4.00-5.40); WHITE BLOOD COUNT 6.9 10^3/uL (4.0-10.0)
[2021-08-03 05:49] LABS: PLATELET COUNT, AUTOMATED 75 10^3/uL (150-450)
[2021-08-03 06:10] LABS: ALBUMIN 1.2 GM/DL (3.2-5.2); ALT/SGPT 143 U/L (12-78); BILIRUBIN,TOTAL 1.1 MG/DL (0.2-1.0); BLOOD UREA NITROGEN 19 MG/DL (7-18); CALCIUM LEVEL 7.6 MG/DL (8.5-10.1); CARBON DIOXIDE LEVEL 24 MEQ/L (21-32); CHLORIDE LEVEL 115 MEQ/L (98-107); CPK CREATINE PHOSPHOKINASE 619 U/L (26-192); CREATININE FOR GFR 0.35 MG/DL (0.55-1.30); GLOMERULAR FILTRATION RATE > 60.0 (>58); GLUCOSE, FASTING 82 MG/DL (70-100); MAGNESIUM LEVEL 1.7 MG/DL (1.8-2.4); POTASSIUM SERUM 3.7 MEQ/L (3.5-5.1); SODIUM LEVEL 147 MEQ/L (136-145); TOTAL PROTEIN 4.2 GM/DL (6.4-8.2)
[2021-08-03] MEDS: SUCRALFATE 1 GM TAB PO SCH ×4 (07:30→20:49)
[2021-08-03 08:16] VITALS: BP 180/99
[2021-08-03] MEDS: THIAMINE 100 MG TAB PO SCH (08:42)
[2021-08-03] MEDS: PANTOPRAZOLE 40MG TAB (PROTONIX) PO SCH (08:42)
[2021-08-03] MEDS: MAGNESIUM OXIDE 400MG TAB (MAG-OX) PO SCH (08:42)
[2021-08-03] MEDS: GABAPENTIN 100 MG CAP PO SCH ×3 (08:42→20:48)
[2021-08-03] MEDS: DIVALPROEX 250 MG TAB PO SCH ×2 (08:43→20:49)
[2021-08-03] MEDS: POTASSIUM CHLORIDE 10MEQ SR TABLET PO SCH ×2 (08:44→20:49)
[2021-08-03] MEDS: HYDROXYCHLOROQUINE 200 MG TAB PO SCH ×2 (08:46→20:49)
[2021-08-03 08:50] VITALS: BP 131/90
[2021-08-03 08:56] LABS: BILIRUBIN,DIRECT 0.8 MG/DL (0.0-0.2)
--- NOTE | 2021-08-03 09:24 | IPNPDOC ---
Date Seen The patient was seen on 08/03/21. Progress Note SUBJECTIVE: Patient is a 41-year-old female who is obtunded and is unable to provide history. She was found by her friends on the floor of her home. Friends called EMS to bring her in. This morning she was seen awake in bed and stating that she is stable enough to go home. She was AAOx2 (unable to state where she was). She states that she "lives with her mom, dad and son"; however her mother has been for the past 17 years and her son lives in [place]. Her healthcare proxy is Sadie Montiel ([phone]). Patient does not have decision-making capacity. REVIEW OF SYSTEMS: Constitutional: denies fever, chills, night sweats HEENT: denies headache Lungs: denies cough, wheezing, shortness of breath Heart: denies chest pain, palpations GI: denies n/v/d, constipation, abdominal pain : denies burning with urination OBJECTIVE PHYSICAL EXAMINATION: VITAL SIGNS: Please see below. GENERAL: No acute distress; AAOx2 HEENT: EOMI; PERRLA; mucous membranes dry CARDIOVASCULAR: Tachycardic; regular rate and rhythm; no murmurs noted RESPIRATORY: Clear to auscultation bilaterally; no wheezes, rhonchi or rales noted ABDOMINAL: Normal active bowel sounds; soft nondistended, no tenderness to palpation; small patch of ecchymosis on abdomen EXTREMITIES: Extensive ecchymosis in various stages of healing on bilateral upper and lower extremities; no pitting edema lower extremities; radial pulses intact; pedal pulses intact; able to real estate leasing manager fingers weakly, wiggle fingers and toes NEUROLOGICAL: Cranial nerves II through XII grossly intact; no focal neurological deficits LABORATORY DATA, IMAGING STUDIES, MICROBIOLOGY: Please see below. 07/30 CT spine w/o contrast: "1. Patchy peripheral ground-glass infiltrate is seen in the upper lung rios of concern for possible COVID-19 pneumonia. 2. No evidence of an acute cervical spine abnormality." 07/30 CXR: "No acute pulmonary disease." 07/[address] w/o contrast: "1. There is divergent gaze. 2. No acute intracranial process is identified." 07/30 CT ABD/PEL w/o contrast: "1. Region of low attenuation in the right main pulmonary artery and right lower lobar pulmonary artery (image 1 of the axial series 201), which is suspicious for a pulmonary embolism. A CTA chest with intravenous contrast is suggested for further evaluation. 2. Commonly reported imaging features of COVID-19 pneumonia are present. Other processes such as influenza pneumonia and organizing pneumonia, as can be seen with drug toxicity and connective tissue disease, can cause a similar imaging pattern. (Reference: [place]) 3. Enlarged, fatty liver. 4. Healing fractures of the right anterior 6th and 7th ribs and right posterior 10th and 11th ribs, which can also be seen in the CT abdomen and pelvis on 07/18/2021." 07/31 LE Vein US: "No deep vein thrombosis in the veins imaged in both lower extremities." 08/02 CTA: "1. No evidence for pulmonary embolus. 2. Patchy opacities with minimal basilar atelectasis. Differential diagnosis includes multifocal infectious/inflammatory process including possible COVID-19 pulmonary disease. 3. Marked hepatosteatosis and mild to moderate diffuse subcutaneous edema to the surrounding visualized." subcutaneous tissues. ASSESSMENT AND PLAN: This is a 41-year-old female with extensive psych history as well as migraines, Sjogren's, SLE, RA, HTN, asthma, fatty liver presents after being found on floor by friends in her home. PROBLEMS: # Toxic Encephalopathy 2/2 polypharmacy -after holding home meds, pt had significant improvement in AMS -hold IVF D5W/NS @ 55cc/hr due to hypernatremia -ammonia <10.0 # Possible interstitial pneumonia -SIRS with leukocytosis of 14 and tachycardia -Leukocytosis - resolved -Procalcitonin 2.05 -Pending sputum culture; pending urine legionella ag, mycoplasma pneumonia IgG and IgM, Strep pneumoniae -c/w IV doxycycline -patient has been vaccinated for COVID # Acute kidney injury -hold IVF D5W/NS @ 55cc/hr due to hypernatremia -PICC line on Right arm -BUN 19 and Cr 0.35 (almost at baseline) -Not oliguric; making dark flores urine seen in catheter -Will continue to monitor I's and O's # Rhabdomyolysis -hold IVF D5W/NS @ 55cc/hr due to hypernatremia -CK levels: downtrended to 619; will continue to trend CK levels -UA: myoglobinuria -Martínez catheter in place making dark flores urine seen in catheter; will continue to monitor I's and O's # Transaminitis and bilirubinemia -Patient does have a history of fatty liver; potential advancement of liver disease -Elevated GGT, AST, ALT points towards cholestatic issue however patient has had a cholecystectomy and images have shown no dilated ducts -Possible drug-induced toxicity: hold methotrexate (hepatotoxic) -c/w with monitoring LFTs -pt will need to follow up with Gastroenterology outpatient # Type II [place] -Will obtain 2D echocardiogram -EKG: no acute ST changes -Troponins downtrend 0.22 -> 0.14 -started Aspirin 81 -consider low dose statin # Hypernatremia -hold IVF D5W/NS @ 55cc/hr due to hypernatremia # Hypomagnesemia - c/w PO Magnesium Oxide - Mg level 1.7 - replete w/ mag sulfate # Anemia -likely anemia of chronic disease -c/w monitoring # Previous hx of hypoglycemia due to bulimia/eating disorder -currently eating well; blood sugars steady -Hypoglycemic protocol # Migraines -c/w sumatriptan 50mg prn # Psych hx: anxiety, depression, history of suicide ideation, bipolar, bulimia, fibromyalgia -c/w duloxetine 120, gabapentin 100 TID, pantoprazole, sucralfate # RA - c/w Plaquenil; hold methotrexate #Asthma -c/w albuterol and singulair DISPOSITION: pending placement; upon discharge she will need a very thorough medication reconciliation [facility] Vital Signs Date Time Temp Pulse Resp B/P (MAP) Pulse Ox O2 Delivery O2 Flow Rate FiO2 08/03/21 08:50 131/90 (104) 08/03/21 08:16 97.9 100 18 99 Room Air I&O- Last 24 Hours up to 6 AM 08/03/21 06:00 Intake Total 1135 ml Output Total 150 ml Balance 985 ml Laboratory Data 24H LABS Laboratory Tests 2 08/02/21 12:08: Bedside Glucose (Misc Panel) 85 08/02/21 12:54: Urine Color YELLOW, Urine Appearance HAZY, Urine pH 6.0, Urine Specific [place] 1.060, Urine Protein NEGATIVE, Urine Glucose (UA) NEGATIVE, Urine Ketones NEGATIVE, Urine Blood NEGATIVE, Urine Nitrite NEGATIVE, Urine Bilirubin NEGATIVE, Urine Urobilinogen 4.0H, Urine Leukocyte Esterase NEGATIVE, Urine WBC (Auto) 5H, Urine RBC (Auto) 5H, Urine Hyaline Casts (Auto) 0, Urine Bacteria (Auto) NEGATIVE, Urine Squamous Epithelial Cells 1, Urine Yeast-Like Cells (Auto) SMALLH, Urine Sperm (Auto) 08/02/21 16:19: Prothrombin Time 13.6, Prothromb Time International Ratio 1.00, Activated Partial Thromboplast Time 25.6, Total Bilirubin 1.2H, Direct Bilirubin 0.7H, Aspartate Amino Transf (AST/SGOT) 221H, Alanine Aminotransferase (ALT/SGPT) 180H, Alkaline Phosphatase 120H, Total Protein 4.3L, Albumin 1.5L, Albumin/Globulin Ratio 0.5L 08/02/21 19:25: Bedside Glucose (Misc Panel) 102 08/03/21 05:20: Nucleated Red Blood Cells % (auto) 0.3H, Anion Gap 8, Glomerular Filtration Rate > 60.0, Calcium Level 7.6L, Magnesium Level 1.7L, Total Bilirubin 1.1H, Aspar alvarez Amino Transf (AST/SGOT) 169H, Alanine Aminotransferase (ALT/SGPT) 143H, Alkaline Phosphatase 136H, Total Creatine Kinase 619H, Total Protein 4.2L, Albumin 1.2L, Albumin/Globulin Ratio 0.4L CBC/BMP Laboratory Tests 08/03/21 05:20 Microbiology Microbiology 08/02/21 Blood Culture, Received Pending 08/02/21 Blood Culture, Received Pending 07/30/21 Respiratory Virus Panel (PCR) ([facility]) - Final, Complete GME ATTESTATION GME ATTESTATION My faculty preceptor for this patient encounter was physically present during the encounter and was fully available. All aspects of the patient interview, examination, medical decision making process, and medical care plan development were reviewed and approved by the faculty preceptor. The faculty preceptor is aware and concurs with the plan as stated in the body of this note and will attest to such by his/her cosignature. ATTENDING NOTE I, Julian Sprague MD, have independently examined this patient and performed my own physical exam, as well as reviewed the documentation and edited where necessary. I have discussed in detail with the resident / student the findings and plan of treatment as documented by the resident and edited their note. I agree with their findings and treatment plan and have edited their documentation. I will continue to follow the patient during this hospital stay. Shelli Clancy DO Aug 03, 2021 09:24 JULIAN SPRAGUE MD Aug 03, 2021 16:12
[2021-08-03] MEDS: MAG SULF 1GM/100ML (MAG RUN) 1 GM in IV 1 EA IV SCH ×2 (09:54→11:49)
[2021-08-03] MEDS ORDERED: IBUPROFEN 600MG TAB PO ONE (11:15)
[2021-08-03 11:38] VITALS: BP 135/91
--- NOTE | 2021-08-03 11:57 | ECHO ---
ECHOCARDIOGRAM DATE OF PROCEDURE: 08/01/2021 Age: 41 Gender: Female Height: 65 inches Weight: 154 pounds Body Surface Area: 1.77 m2 PATIENT LOCATION: Inpatient progressive care unit (PCU) Room 3220. REFERRING PROVIDER: Shelli Clancy D.O INDICATION: Transient ischemic attack (TIA), possible myocardial infarction ([place]). MEASUREMENTS: 2D Measurements: Image quality not possible. Doppler Measurements: AV - 1.1 m/sec MV-E 80, A 100, EA ratio 0.8 Early mitral deceleration time 164 msec E prime lateral 8.3 A prime lateral 10.4 COMMENTS: Sinus tachycardia at 104 beats per minute (bpm) without ventricular conduction disturbance. Unfortunately, due to the patient's body habitus and inability to get into a good echocardiographic position, image quality was very poor. We attempted 2-dimensional imaging from the parasternal apical four at long axis projections, along with pulse and continuous wave Doppler and color flow Doppler and finally, tissue Doppler. Grossly, cardiac chamber sizes did not appear to be increased. Left ventricular (LV) wall thickness also appeared to be normal. Visualization of the endocardium was quite poor, but our global sense is there was no obvious localized wall motion abnormality and global systolic function appeared to be intact. Valvular structures were not well visualized, but Doppler studies failed to demonstrate any significant mitral or aortic valve dysfunction. Pulse Doppler of her LV inflow tract showed an impairment of LV diastolic relaxation, but estimated mean left atrial pressure appeared within normal limits at this time. Bubble saline contrast study could not be performed because of poor image quality. KURT
[2021-08-03] MEDS: DOXYCYCLINE HYCLATE 100MG TABLET PO SCH ×2 (12:26→20:49)
[2021-08-03] MEDS ORDERED: methocarbamoL 500 MG TAB PO ONE (18:00)
[2021-08-03 20:00] VITALS: BP 126/79
[2021-08-03] MEDS: DULoxetine 30MG CAPSULE (CYMBALTA) PO SCH (20:48)
[2021-08-03] MEDS: MONTELUKAST 10 MG TAB PO SCH (20:48)
[2021-08-04] VITALS: BP 148/84
[2021-08-04] MEDS: SUMAtriptan SUCCINATE 25 MG TAB PO PRN ×2 (00:47→21:18)
[2021-08-04 04:00] VITALS: BP 144/93
[2021-08-04 05:18] LABS: HEMATOCRIT 25.9 % (36.0-47.0); HEMOGLOBIN 8.2 g/dl (12.0-15.5); MEAN CORPUSCULAR HEMOGLOBIN 31.3 pg (27.0-33.0); MEAN CORPUSCULAR HGB CONC 31.7 g/dl (32.0-36.5); MEAN CORPUSCULAR VOLUME 98.9 fl (80.0-96.0); RED BLOOD COUNT 2.62 10^6/uL (4.00-5.40); WHITE BLOOD COUNT 7.2 10^3/uL (4.0-10.0)
[2021-08-04 05:19] LABS: PLATELET COUNT, AUTOMATED 88 10^3/uL (150-450)
[2021-08-04 05:39] LABS: ALBUMIN 1.3 GM/DL (3.2-5.2); ALT/SGPT 114 U/L (12-78); BILIRUBIN,TOTAL 0.9 MG/DL (0.2-1.0); BLOOD UREA NITROGEN 13 MG/DL (7-18); CALCIUM LEVEL 7.6 MG/DL (8.5-10.1); CARBON DIOXIDE LEVEL 26 MEQ/L (21-32); CHLORIDE LEVEL 111 MEQ/L (98-107); CREATININE FOR GFR 0.41 MG/DL (0.55-1.30); GLOMERULAR FILTRATION RATE > 60.0 (>58); GLUCOSE, FASTING 94 MG/DL (70-100); MAGNESIUM LEVEL 1.9 MG/DL (1.8-2.4); POTASSIUM SERUM 3.8 MEQ/L (3.5-5.1); SODIUM LEVEL 144 MEQ/L (136-145); TOTAL PROTEIN 3.8 GM/DL (6.4-8.2)
[2021-08-04] MEDS: LEVOTHYROXINE 25MCG TABLET (0.025MG) PO SCH (05:51)
[2021-08-04] MEDS: SODIUM CHLORIDE 0.9% INJ 10 ML SYR IV SCH ×2 (05:52→17:35)
[2021-08-04] MEDS: GABAPENTIN 100 MG CAP PO SCH ×3 (08:18→21:10)
[2021-08-04] MEDS: ASPIRIN 81MG ENTERIC TABLET PO SCH (08:18)
[2021-08-04] MEDS: SUCRALFATE 1 GM TAB PO SCH ×4 (08:19→21:09)
[2021-08-04] MEDS: HYDROXYCHLOROQUINE 200 MG TAB PO SCH ×2 (08:19→21:10)
[2021-08-04] MEDS: DIVALPROEX 250 MG TAB PO SCH ×2 (08:19→21:10)
[2021-08-04] MEDS: DOXYCYCLINE HYCLATE 100MG TABLET PO SCH ×2 (08:19→21:09)
[2021-08-04] MEDS: MAGNESIUM OXIDE 400MG TAB (MAG-OX) PO SCH (08:19)
[2021-08-04] MEDS: POTASSIUM CHLORIDE 10MEQ SR TABLET PO SCH ×2 (08:20→21:09)
[2021-08-04] MEDS: THIAMINE 100 MG TAB PO SCH (08:20)
[2021-08-04] MEDS: PANTOPRAZOLE 40MG TAB (PROTONIX) PO SCH (08:20)
[2021-08-04 11:32] VITALS: BP 132/90
[2021-08-04] MEDS ORDERED: NS 500 ML IV ONE (16:30)
[2021-08-04] MEDS: NS 0.45% 1,000 ML IV SCH (16:46)
[2021-08-04 17:30] VITALS: BP 149/91
--- NOTE | 2021-08-04 19:25 | IPNPDOC ---
Date Seen The patient was seen on 08/04/21. Progress Note SUBJECTIVE: Patient seen examined at bedside. Denies any chest pain nausea vomiting diarrhea. No acute events overnight. Although nurses saying that patient has reduced urine output. Patient asking when she can go home. She has had issues with caring for herself and has left multiple places AMA. OBJECTIVE PHYSICAL EXAMINATION: VITAL SIGNS: please see below General: NAD, comfortable HEENT: PERRLA, EOMI, sclerae clear Neck: supple, normal ROM, no JVD Respiratory: lungs CTAB, no wheeze, no rales, no crackles CVS: RRR, normal S1, S2, no murmurs Abdo: soft, no masses, no hepatosplenomegaly, BS+, no rebound tenderness Extremities: no edema, pulses 2+ MSK: no joint deformities, normal ROM Neuro: no focal neuro deficits, moving all 4 extremities, CN2-12 intact. Strength 5/5 in all 4 extremities. No nystagmus. Psych: calm, cooperative, AAO x 3 LABORATORY DATA, IMAGING STUDIES, MICROBIOLOGY: Please see below. DVT prophylaxis ordered?: mechanical ASSESSMENT AND PLAN: This is a 41-year-old female with extensive psych history as well as migraines, Sjogren's, SLE, RA, HTN, asthma, fatty liver brought to ER after found on the floor PROBLEMS: # Toxic Encephalopathy 2/2 polypharmacy vs SIRS: mentation appears at baseline. # Possible interstitial pneumonia: SIRS on admission. elevated procal. Doxy 100 mg PO BID (day 5) # Acute kidney injury: CR trended down. Oliguric today. Fluid challenge. Check PVR. Obtain renal US. # Rhabdomyolysis: CK trended down. UOP dimished. Give IV bolus challenge. PVR to r/o retention. # Transaminitis and bilirubinemia: likely 2/2 rhabdomyolysis.MTX held. Trended down with IVF. Fatty liver. GI referral OP. #Thrombocytopenia: trended down 163 to 75. Now 88. Check fibrinogen. Check LDH. Check peripheral smear. Possibly infectious. # Type II [place]: no ischemic changes on EKG. Trop trended down 0.22 to 0.14. echo poor study, no valvular abormalities. Started ASA 81 mg daily. statin on DC. # Hypomagnesemia: replaced. monitor # Anemia: Hgb slowly trended down. likely dilutional. check FOBT. # Migraines:sumatriptan 50mg prn #Anxiety, depression, hx SI, bipolar, bulimia:duloxetine 120, gabapentin 100 TID, pantoprazole, sucralfate # RA: plaquenil. MTX held, will be DC on discharge until Rheum f/u. #Asthma: albuterol. singulair VS, I&O, 24H, [facility] Vital Signs/I&O Vital Signs Date Time Temp Pulse Resp B/P (MAP) Pulse Ox O2 Delivery O2 Flow Rate FiO2 08/04/21 17:30 97.4 99 16 149/91 (110) 100 Room Air I&O- Last 24 Hours up to 6 AM 08/04/21 06:00 Intake Total 720 ml Output Total 675 ml Balance 45 ml Laboratory Data 24H LABS Laboratory Tests 2 08/03/21 20:25: Bedside Glucose (Misc Panel) 86 08/04/21 05:04: Nucleated Red Blood Cells % (auto) 0.0, Immature Platelet Fraction 9.2, Anion Gap 7L, Glomerular Filtration Rate > 60.0, Calcium Level 7.6L, Magnesium Level 1.9, Total Bilirubin 0.9, Aspartate Amino Transf (AST/SGOT) 112H, Alanine Aminotransferase (ALT/SGPT) 114H, Alkaline Phosphatase 138H, Total Creatine Kinase 425H, Total Protein 3.8L, Albumin 1.3L, Albumin/Globulin Ratio 0.5L CBC/BMP Laboratory Tests 08/04/21 05:04 Microbiology Microbiology 08/02/21 Blood Culture - Preliminary, Resulted No Growth after 48 hours. All Specime... 08/02/21 Blood Culture - Preliminary, Resulted No Growth after 48 hours. All Specime... 07/30/21 Respiratory Virus Panel (PCR) ([facility]) - Final, Complete TIFFANY VILLAGOMEZ MD Aug 04, 2021 19:25
[2021-08-04] MEDS: DULoxetine 30MG CAPSULE (CYMBALTA) PO SCH (21:09)
[2021-08-04] MEDS: MONTELUKAST 10 MG TAB PO SCH (21:09)
--- NOTE | 2021-08-04 21:09 | REPVR ---
PROCEDURE INFORMATION: Exam: US Retroperitoneal Limited, Kidneys Exam date and time: 08/04/2021 8:02 PM Age: 41 years old Clinical indication: Other: Oliguria; Additional info: Oliguria, R/O hydro TECHNIQUE: Imaging protocol: Real-time ultrasound of the retroperitoneum with image documentation. Examination was focused on the kidneys. COMPARISON: Abdomen, limited US 01/08/2018 2:27 PM FINDINGS: Right kidney: Right kidney measures at least 10.3 x 5.1 by 5.7 cm. The lower pole of the right kidney is not clearly seen due to limitations imposed by patient body habitus. No hydronephrosis or mass in the visualized portion of the right kidney. Left kidney: Left kidney measures 10.4 x 5.7 by 4.2 cm. No hydronephrosis or mass seen in the left kidney. IMPRESSION: 1. No hydronephrosis in either kidney. See above Electronically signed by: Elizabeth Avila On 08/04/2021 21:08:39 PM
[2021-08-04 22:00] VITALS: BP 143/92
[2021-08-05 02:21] LABS: APPEARANCE, URINE CLEAR (CLEAR); BILIRUBIN, URINE AUTO NEGATIVE (NEGATIVE); BLOOD, URINE BLOOD NEGATIVE (NEGATIVE); COLOR, URINE YELLOW (YELLOW); GLUCOSE, URINE (UA) AUTO NEGATIVE (NEGATIVE); KETONE, URINE AUTO NEGATIVE (NEGATIVE); LEUKOCYTE ESTERASE, URINE AUTO 1+ (NEGATIVE); NITRITE, URINE AUTO NEGATIVE (NEGATIVE); PROTEIN, URINE AUTO NEGATIVE (NEGATIVE); SPECIFIC GRAVITY URINE AUTO 1.009 (1.002-1.035)
[2021-08-05 02:28] LABS: AMORPHOUS SEDIMENT SMALL (NEGATIVE); BACTERIA, URINE AUTO NEGATIVE (NEGATIVE); MUCUS, URINE SMALL (NEGATIVE); RBC, URINE AUTO 5 /HPF (0-3); SQUAMOUS EPITHELIAL CELL UR AU 0 /HPF (0-6); TRANSITIONAL EPITHELIAL AUTO <1 /HPF; WBC, URINE AUTO 19 /HPF (0-3)
[2021-08-05] MEDS: FIORICET TAB PO PRN ×2 (03:00→13:05)
[2021-08-05] MEDS: NS 0.45% 1,000 ML IV SCH (03:02)
[2021-08-05] MEDS: LEVOTHYROXINE 25MCG TABLET (0.025MG) PO SCH (05:43)
[2021-08-05] MEDS: ONDANSETRON 4 MG TAB PO PRN ×2 (05:43→13:05)
[2021-08-05] MEDS: SODIUM CHLORIDE 0.9% INJ 10 ML SYR IV SCH ×2 (05:59→17:53)
[2021-08-05 06:00] VITALS: BP 143/93
[2021-08-05 06:24] LABS: HEMOGLOBIN 7.9 g/dl (12.0-15.5); MEAN CORPUSCULAR HGB CONC 32.9 g/dl (32.0-36.5); MEAN CORPUSCULAR VOLUME 97.2 fl (80.0-96.0); PLATELET COUNT, AUTOMATED 112 10^3/uL (150-450); RED BLOOD COUNT 2.47 10^6/uL (4.00-5.40); WHITE BLOOD COUNT 5.8 10^3/uL (4.0-10.0)
[2021-08-05 06:46] LABS: ALBUMIN 1.2 GM/DL (3.2-5.2); ALT/SGPT 91 U/L (12-78); BILIRUBIN,TOTAL 0.7 MG/DL (0.2-1.0); BLOOD UREA NITROGEN 9 MG/DL (7-18); CALCIUM LEVEL 7.4 MG/DL (8.5-10.1); CARBON DIOXIDE LEVEL 27 MEQ/L (21-32); CHLORIDE LEVEL 108 MEQ/L (98-107); CPK CREATINE PHOSPHOKINASE 259 U/L (26-192); CREATININE FOR GFR 0.35 MG/DL (0.55-1.30); GLOMERULAR FILTRATION RATE > 60.0 (>58); GLUCOSE, FASTING 86 MG/DL (70-100); MAGNESIUM LEVEL 1.7 MG/DL (1.8-2.4); POTASSIUM SERUM 3.8 MEQ/L (3.5-5.1); SODIUM LEVEL 142 MEQ/L (136-145); TOTAL PROTEIN 3.7 GM/DL (6.4-8.2)
[2021-08-05] MEDS: GABAPENTIN 100 MG CAP PO SCH ×3 (08:49→20:29)
[2021-08-05] MEDS: MAGNESIUM OXIDE 400MG TAB (MAG-OX) PO SCH (08:49)
[2021-08-05] MEDS: HYDROXYCHLOROQUINE 200 MG TAB PO SCH ×2 (08:50→20:29)
[2021-08-05] MEDS: PANTOPRAZOLE 40MG TAB (PROTONIX) PO SCH (08:50)
[2021-08-05] MEDS: POTASSIUM CHLORIDE 10MEQ SR TABLET PO SCH ×2 (08:50→20:29)
[2021-08-05] MEDS: THIAMINE 100 MG TAB PO SCH (08:50)
[2021-08-05] MEDS: DIVALPROEX 250 MG TAB PO SCH ×2 (08:50→20:29)
[2021-08-05] MEDS: ASPIRIN 81MG ENTERIC TABLET PO SCH (08:50)
[2021-08-05] MEDS: DOXYCYCLINE HYCLATE 100MG TABLET PO SCH ×2 (08:50→20:29)
[2021-08-05] MEDS: SUCRALFATE 1 GM TAB PO SCH ×4 (08:50→20:29)
--- NOTE | 2021-08-05 12:07 | IPNPDOC ---
Date Seen The patient was seen on 08/05/21. Progress Note SUBJECTIVE: Patient is a 41-year-old female with with extensive psych history, polypharmacy, other chronic conditions, who was brought to ER after being found on the floor at her home. Per nurses, patient has been her usual self. She was straight cathed overnight for urinary retention after refusing to get out of bed. business services representative has been consulted for potential placement. Her main com plaints today include nausea, dry mouth, pain, sleep issues. Review of systems: Cardiac: Denies chest pain, tachycardia Respiratory: Denies shortness of breath, pain with breathing HEENT: Reports dry mouth Gastrointestinal: Reports upper quadrant abdominal pain with no obvious trigger, constipation; denies diarrhea, heartburn, blood in her stool, melena Urinary: Denies dysuria, hematuria, urinary changes Neurologic: Reports headache for the last couple of days and has received some relief from sumatriptan and Tylenol, reports dizziness upon standing OBJECTIVE PHYSICAL EXAMINATION: VITAL SIGNS: Please see below. GENERAL: 41-year-old female, lying in bed, no acute distress HEENT: Head normocephalic/atraumatic, eyes PERRLA and EOMI intact, mouth moist mucous membranes no teeth present CARDIOVASCULAR: Regular rate and rhythm; no rubs, murmurs, gallops. RESPIRATORY: Clear to auscultation bilaterally. ABDOMINAL: Bowel sounds auscultated in all 4 quadrants, tender to palpation in the upper left upper right and lower left quadrants EXTREMITIES: Appropriate range of motion in all 4 extremities NEUROLOGICAL: CN II through XII intact bilaterally PSYCHOLOGICAL: Alert and oriented x4 (unable to recall events prior to admission) LABORATORY DATA, IMAGING STUDIES, MICROBIOLOGY: Please see below. DVT prophylaxis ordered?: Mechanical ASSESSMENT AND PLAN: This is a 41-year-old female with who was brought to the ER after being found on the floor and not remembering how she got there. PROBLEMS: # Toxic Encephalopathy 2/2 polypharmacy -Patient continues to have improved mentation after holding home meds -held IVF D5W/NS @ 55cc/hr due to hypernatremia -ammonia <10.0 # Possible interstitial pneumonia -SIRS with leukocytosis of 14 and tachycardia -Leukocytosis - resolved -Pending sputum culture; pending urine legionella ag, mycoplasma pneumonia IgG and IgM, Strep pneumoniae -c/w IV doxycycline (day 6) -patient has been vaccinated for COVID # Acute kidney injury -PICC line on Right arm -BUN 9 and Cr 0.35 (almost at baseline) -Not oliguric; making dark flores urine seen in catheter -Will continue to monitor I's and O's -Renal ultrasound showing no hydronephrosis in either kidney -Tamsulosin 0.4 mg p.o. daily ordered to prevent urinary retention # Rhabdomyolysis -held IVF D5W/NS @ 55cc/hr due to hypernatremia -CK levels: downtrended to 259 -Straight cathed due to not wanting to get out of bed to urinate # Transaminitis and bilirubinemia -Patient does have a history of fatty liver; potential advancement of liver disease -Elevated GGT, AST, ALT points towards cholestatic issue however patient has had a cholecystectomy and images have shown no dilated ducts -Possible drug-induced toxicity: hold methotrexate (hepatotoxic) -c/w with monitoring LFTs -pt will need to follow up with Gastroenterology outpatient #P thrombocytopenia -Currently 112 -Peripheral smear showed "Macrocytic anemia. Nucleated red cells present. Mild thrombocytopenia. Leukocytes appear normal in number." -Check LDH and fibrinogen # Type II TN -Will obtain 2D echocardiogram -EKG: no acute ST changes -Troponins downtrend 0.22 -> 0.14 -started Aspirin 81 -statin once transaminitis improves # Hypernatremia -hold IVF D5W/NS @ 55cc/hr due to hypernatremia # Hypomagnesemia - c/w PO Magnesium Oxide - Mg level 1.7 - replete w/ mag sulfate # Anemia -likely anemia of chronic disease -c/w monitoring -FOBT # Previous hx of hypoglycemia due to bulimia/eating disorder -currently eating well; blood sugars steady -Hypoglycemic protocol # Migraines -c/w sumatriptan 50mg prn -Fioricet discontinued # Psych hx: anxiety, depression, history of suicide ideation, bipolar, bulimia, fibromyalgia -c/w duloxetine 120, gabapentin 100 TID, pantoprazole, sucralfate # RA - c/w Plaquenil; hold methotrexate #Asthma -c/w albuterol and singulair #Nausea -Zofran switched to Reglan 5mg PO ONCE #Pain control -Lower back pain: Oxycodone 5 mg p.o. every 8 hours for moderate pain DISPOSITION: Placement pending VS, I&O, 24H, [facility] Vital Signs/I&O Vital Signs Date Time Temp Pulse Resp B/P (MAP) Pulse Ox O2 Delivery O2 Flow Rate FiO2 08/05/21 06:00 98.3 98 19 143/93 (110) 100 Room Air I&O- Last 24 Hours up to 6 AM 08/05/21 06:00 Intake Total 1950 ml Output Total 1075 ml Balance 875 ml Laboratory Data 24H LABS Laboratory Tests 2 08/04/21 21:08: Bedside Glucose (Misc Panel) 82 08/05/21 02:08: Urine Color YELLOW, Urine Appearance CLEAR, Urine pH 6.0, Urine Specific [place] 1.009, Urine Protein NEGATIVE, Urine Glucose (Auto)(UA) NEGATIVE, Urine Ketones (Auto) NEGATIVE, Urine Blood NEGATIVE, Urine Nitrite NEGATIVE, Urine Bilirubin NEGATIVE, Urine Urobilinogen 4.0H, Urine Leukocyte Esterase (Auto) 1+H, Urine WBC (Auto) 19H, Urine RBC (Auto) 5H, Urine Hyaline Casts (Auto) 1, Urine Bact eria (Auto) NEGATIVE, Urine Squamous Epithelial Cells 0, Urine Transitional Epithelial Cells <1, Urine Amorphous Sediment (Auto) SMALLH, Urine Mucus (Auto) SMALL, Urine Yeast-Like Cells (Auto) SMALLH, Urine Sperm (Auto) 08/05/21 06:12: Nucleated Red Blood Cells % (auto) 0.9H, Differential Slide Review Report, Peripheral Blood Smear Path Consult PERIPHERAL SMEAR, Anion Gap 7L, Glomerular Filtration Rate > 60.0, Calcium Level 7.4L, Magnesium Level 1.7L, Total Bilirubin 0.7, Aspartate Amino Transf (AST/SGOT) 87H, Alanine Aminotransferase (ALT/SGPT) 91H, Alkaline Phosphatase 127H, Total Creatine Kinase 259H, Total Protein 3.7L, Albumin 1.2L, Albumin/Globulin Ratio 0.5L CBC/BMP Laboratory Tests 08/05/21 06:12 Microbiology Microbiology 08/02/21 Blood Culture - Preliminary, Resulted No Growth after 48 hours. All Specime... 08/02/21 Blood Culture - Preliminary, Resulted No Growth after 48 hours. All Specime... 07/30/21 Respiratory Virus Panel (PCR) ([facility]) - Final, Complete GME ATTESTATION GME ATTESTATION My faculty preceptor for this patient encounter was physically present during the encounter and was fully available. All aspects of the patient interview, examination, medical decision making process, and medical care plan development were reviewed and approved by the faculty preceptor. The faculty preceptor is aware and concurs with the plan as stated in the body of this note and will attest to such by his/her cosignature. ATTENDING NOTE I, Julian Sprague MD, have independently examined this patient and performed my own physical exam, as well as reviewed the documentation and edited where necessary. I have discussed in detail with the resident the findings and plan of treatment as documented by the resident and edited their note. I agree with their findings and treatment plan and have edited their documentation. I will continue to follow the patient during this hospital stay. Too Longo DO Aug 05, 2021 12:07 JULIAN SPRAGUE MD Aug 20, 2021 07:30
[2021-08-05] MEDS ORDERED: oxyCODONE 5MG TAB PO PRN (13:40)
[2021-08-05] MEDS ORDERED: METOCLOPRAMIDE 5 MG TAB PO PRN (13:40)
[2021-08-05 14:00] VITALS: BP 143/93
[2021-08-05] MEDS ORDERED: METOCLOPRAMIDE 5 MG TAB PO ONE (14:00)
[2021-08-05 20:12] VITALS: BP 139/91
[2021-08-05] MEDS: MONTELUKAST 10 MG TAB PO SCH (20:29)
[2021-08-05] MEDS: DULoxetine 30MG CAPSULE (CYMBALTA) PO SCH (20:29)
[2021-08-05 21:07] LABS: BODY FLUID CULTURE Not indicated. (.); LEGIONELLA ANTIGEN URINE Negative (Negative); MYCOPLASMA PNEUMONIAE IgG 194 U/mL (0-99); MYCOPLASMA PNEUMONIAE IgM <770 U/mL (0-769); ORGANISM ID Not indicated. (.); SPECIMEN SOURCE Urine (.); URINE STREP PNEUMONIAE ANTIGEN Negative (Negative)
[2021-08-05] MEDS: PROMETHAZINE 25 MG TAB PO PRN (21:08)
[2021-08-05] MEDS: SUMAtriptan SUCCINATE 25 MG TAB PO PRN (21:08)
[2021-08-06] VITALS (11 sets, daily range): BP systolic 106–142; BP diastolic 78–96
[2021-08-06] MEDS: LEVOTHYROXINE 25MCG TABLET (0.025MG) PO SCH (05:23)
[2021-08-06] MEDS: SODIUM CHLORIDE 0.9% INJ 10 ML SYR IV SCH ×2 (05:24→20:03)
[2021-08-06 06:12] LABS: HEMATOCRIT 23.5 % (36.0-47.0); HEMOGLOBIN 7.5 g/dl (12.0-15.5); MEAN CORPUSCULAR HEMOGLOBIN 31.1 pg (27.0-33.0); MEAN CORPUSCULAR HGB CONC 31.9 g/dl (32.0-36.5); MEAN CORPUSCULAR VOLUME 97.5 fl (80.0-96.0); PLATELET COUNT, AUTOMATED 152 10^3/uL (150-450); RED BLOOD COUNT 2.41 10^6/uL (4.00-5.40); WHITE BLOOD COUNT 5.7 10^3/uL (4.0-10.0)
[2021-08-06 06:34] LABS: ALBUMIN 1.2 GM/DL (3.2-5.2); ALT/SGPT 72 U/L (12-78); BILIRUBIN,TOTAL 0.5 MG/DL (0.2-1.0); BLOOD UREA NITROGEN 7 MG/DL (7-18); CALCIUM LEVEL 7.5 MG/DL (8.5-10.1); CARBON DIOXIDE LEVEL 28 MEQ/L (21-32); CHLORIDE LEVEL 108 MEQ/L (98-107); CPK CREATINE PHOSPHOKINASE 202 U/L (26-192); CREATININE FOR GFR 0.41 MG/DL (0.55-1.30); GLOMERULAR FILTRATION RATE > 60.0 (>58); GLUCOSE, FASTING 69 MG/DL (70-100); MAGNESIUM LEVEL 1.7 MG/DL (1.8-2.4); POTASSIUM SERUM 3.8 MEQ/L (3.5-5.1); SODIUM LEVEL 143 MEQ/L (136-145); TOTAL PROTEIN 4.1 GM/DL (6.4-8.2)
[2021-08-06] MEDS: POTASSIUM CHLORIDE 10MEQ SR TABLET PO SCH ×2 (08:45→20:04)
[2021-08-06] MEDS: TAMSULOSIN 0.4 MG CAP PO SCH (08:46)
[2021-08-06] MEDS: HYDROXYCHLOROQUINE 200 MG TAB PO SCH ×2 (08:46→20:04)
[2021-08-06] MEDS: SUCRALFATE 1 GM TAB PO SCH ×4 (08:46→20:03)
[2021-08-06] MEDS: THIAMINE 100 MG TAB PO SCH (08:46)
[2021-08-06] MEDS: ASPIRIN 81MG ENTERIC TABLET PO SCH (08:46)
[2021-08-06] MEDS: MAGNESIUM OXIDE 400MG TAB (MAG-OX) PO SCH (08:46)
[2021-08-06] MEDS: DIVALPROEX 250 MG TAB PO SCH ×2 (08:46→20:03)
[2021-08-06] MEDS: DOXYCYCLINE HYCLATE 100MG TABLET PO SCH ×2 (08:46→20:03)
[2021-08-06] MEDS: GABAPENTIN 100 MG CAP PO SCH ×3 (08:46→20:03)
[2021-08-06] MEDS: PANTOPRAZOLE 40MG TAB (PROTONIX) PO SCH (08:46)
[2021-08-06] MEDS: SUMAtriptan SUCCINATE 25 MG TAB PO PRN (10:24)
--- NOTE | 2021-08-06 12:23 | IPNPDOC ---
Text Note Date of Service The patient was seen on 08/06/21. NOTE Subjective: Patient is a 41 year old female with a PMHx of extensive Psych history, Migraines, Sjgren's, SLE, RA, HTN, Asthma, Fatty liver disease who p resented to the emergency room after they were found on the floor. Patient was admitted to the hospital service for further evaluation, treatment of her confusion suspected to be secondary to medications. Patient was seen and examined at the bedside. Currently patient denies any chest pain, shortness of breath, palpitations. Reports some nausea, some abdominal discomfort. Objective: Vitals (See below) General: Lying in bed, appears comfortable, AAOx3 HEENT: NC, AT CVS: +S1S2 Lungs: Fair air entry b/l, no evidence of wheezing, rales or rhonchi Abdomen: Soft, ND, NT Extremities: - Edema, - Calf tenderness Imaging: CT Cervical spine 07/30: 1. Patchy peripheral ground-glass infiltrate is seen in the upper lung rios of concern for possible COVID-19 pneumonia. 2. No evidence of an acute cervical spine abnormality. CXR 07/30: No acute pulmonary disease. CT head 07/30: 1. There is divergent gaze. 2. No acute intracranial process is identified. CT abdomen / pelvis 07/31: 1. Region of low attenuation in the right main pulmonary artery and right lower lobar pulmonary artery (image 1 of the axial series 201), which is suspicious for a pulmonary embolism. A CTA chest with intravenous contrast is suggested for further evaluation. 2. Commonly reported imaging features of COVID-19 pneumonia are present. Other processes such as influenza pneumonia and organizing pneumonia, as can be seen with drug toxicity and connective tissue disease, can cause a similar imaging pattern. (Reference: Lexa) 3. Enlarged, fatty liver. 4. Healing fractures of the right anterior 6th and 7th ribs and right posterior 10th and 11th ribs, which can also be seen in the CT abdomen and pelvis on 07/18/2021. US guided needle placement (PICC line) 07/31: PICC line insertion right brachial vein with the tip ending in the SVC. Vascular US 07/31: No deep vein thrombosis in the veins imaged in both lower extremities. CT angio chest 08/02 1. No evidence for pulmonary embolus. 2. Patchy opacities with minimal basilar atelectasis. Differential diagnosis includes multifocal infectious/inflammatory process including possible COVID-19 pulmonary disease. 3. Marked hepatosteatosis and mild to moderate diffuse subcutaneous edema to the surrounding visualized subcutaneous tissues. Renal US 08/04: 1. No hydronephrosis in either kidney. See above Assessment and plan: s/p Acute toxic encephalopathy - likely 2/2 polypharmacy - Clinically patient is oriented to person, place and time - Mentation appears to be baseline - No focal neurologic deficits - Imaging noted above - s/p Opiates / Zolpidem Possible interstitial pneumonia - Patient does not have any shortness of breath - Saturating well on room air - PCT of 2.05 - Respiratory panel 07/30: Negative - Blood cultures 08/02: No growth at 72 hours - c/w Doxycycline (Day #6) Elevated troponin - likely 2/2 demand ischemia, unlikely 2/2 NSTEMI - Patient has not experience any chest pain, shortness of breath or palpitations - Troponin trend improved - EKG reviewed - c/w ASA 81; Will consider Atorvastatin on discharge (re: hold for now given transaminitis) s/p PARAS - Creatinine has normalized - Imaging noted above s/p Rhabdomyolysis Transaminitis / Hyperbilirubinemia - likely 2/2 medications - Has been trending down, essentially normalized - s/p Methotrexate (re: hepatotoxic) s/p Thrombocytopenia - No evidence of bleeding - Will continue to follow counts Anemia - Hg trended down without evidence of bleeding - Suspect this is likely 2/2 dilutional etiology; has been positive fluid balance by 4 L - Occult blood pending - Will repeat H&H and transfuse as needed Hypomagnesemia - Will supplement Migraines - c/w sumatriptan RA - c/w Hydroxychloroquine; Will hold Methotrexate - Will have outpatient follow-up with rheumatology for resumption of methotrexat e therapy Chronic Asthma - No evidence of exacerbation - c/w Inhaled therapy as ordered Anxiety / Depression / Hx SI / Bipolar / Bulimia - c/w Duloxetine, Gabapentin GI prophylaxis - c/w Pantoprazole, sucralfate DVT prophylaxis - c/w TEDs/Sequentials Disposition: - Will transition to ALC status today; will likely need rehab VS,Fishbone, I+O VS, Fishbone, I+O Laboratory Tests 08/06/21 05:29 Vital Signs Date Time Temp Pulse Resp B/P (MAP) Pulse Ox O2 Delivery O2 Flow Rate FiO2 08/06/21 05:27 98.9 98 16 137/91 (106) 98 Room Air I&O- Last 24 Hours up to 6 AM 08/06/21 06:00 Intake Total 1620 ml Output Total 2050 ml Balance -430 ml HAO OLSON MD Aug 06, 2021 12:23
[2021-08-06 12:47] LABS: HEMATOCRIT 22.9 % (36.0-47.0); HEMOGLOBIN 7.5 g/dl (12.0-15.5)
[2021-08-06] MEDS ORDERED: MAG SULF 1GM/100ML (MAG RUN) 1 GM in IV 1 EA IV ONE (13:00)
[2021-08-06] MEDS: FIORICET TAB PO PRN ×2 (16:57→23:53)
[2021-08-06] MEDS: MONTELUKAST 10 MG TAB PO SCH (20:03)
[2021-08-06] MEDS: RAMELTEON 8 MG TAB (ROZEREM) PO PRN (20:03)
[2021-08-06] MEDS: DULoxetine 30MG CAPSULE (CYMBALTA) PO SCH (20:04)
[2021-08-07] MEDS: SUMAtriptan SUCCINATE 25 MG TAB PO PRN (05:47)
[2021-08-07] MEDS: LEVOTHYROXINE 25MCG TABLET (0.025MG) PO SCH (05:48)
[2021-08-07] MEDS: SODIUM CHLORIDE 0.9% INJ 10 ML SYR IV SCH ×2 (05:48→17:19)
[2021-08-07 06:31] VITALS: BP 138/93
[2021-08-07 08:15] LABS: BLOOD UREA NITROGEN 7 MG/DL (7-18); CALCIUM LEVEL 7.9 MG/DL (8.5-10.1); CARBON DIOXIDE LEVEL 29 MEQ/L (21-32); CHLORIDE LEVEL 108 MEQ/L (98-107); CREATININE FOR GFR 0.48 MG/DL (0.55-1.30); GLOMERULAR FILTRATION RATE > 60.0 (>58); GLUCOSE, FASTING 68 MG/DL (70-100); MAGNESIUM LEVEL 1.8 MG/DL (1.8-2.4); POTASSIUM SERUM 3.8 MEQ/L (3.5-5.1); SODIUM LEVEL 144 MEQ/L (136-145)
[2021-08-07 08:20] LABS: HEMOGLOBIN 10.5 g/dl (12.0-15.5); MEAN CORPUSCULAR HEMOGLOBIN 31.2 pg (27.0-33.0); MEAN CORPUSCULAR HGB CONC 33.9 g/dl (32.0-36.5); PLATELET COUNT, AUTOMATED 154 10^3/uL (150-450); RED BLOOD COUNT 3.37 10^6/uL (4.00-5.40); WHITE BLOOD COUNT 4.7 10^3/uL (4.0-10.0)
[2021-08-07] MEDS: SUCRALFATE 1 GM TAB PO SCH ×4 (08:35→22:07)
[2021-08-07] MEDS: THIAMINE 100 MG TAB PO SCH (08:35)
[2021-08-07] MEDS: HYDROXYCHLOROQUINE 200 MG TAB PO SCH ×2 (08:35→22:07)
[2021-08-07] MEDS: DOXYCYCLINE HYCLATE 100MG TABLET PO SCH ×2 (08:35→22:08)
[2021-08-07] MEDS: PANTOPRAZOLE 40MG TAB (PROTONIX) PO SCH (08:35)
[2021-08-07] MEDS: POTASSIUM CHLORIDE 10MEQ SR TABLET PO SCH ×2 (08:35→22:08)
[2021-08-07] MEDS: TAMSULOSIN 0.4 MG CAP PO SCH (08:35)
[2021-08-07] MEDS: ASPIRIN 81MG ENTERIC TABLET PO SCH (08:36)
[2021-08-07] MEDS: MAGNESIUM OXIDE 400MG TAB (MAG-OX) PO SCH (08:36)
[2021-08-07] MEDS: DIVALPROEX 250 MG TAB PO SCH ×2 (08:36→22:08)
[2021-08-07] MEDS: GABAPENTIN 100 MG CAP PO SCH ×3 (08:36→22:07)
[2021-08-07 08:41] LABS: ATYPICAL LYMPH 2 % (0-5); BASOPHILS 1 % (0-1); EOSINOPHILS 4 % (0-3); LYMPHOCYTES 44 % (16-44); MONOCYTES 6 % (0-5); NEUTROPHILS 41 % (28-66)
[2021-08-07] MEDS: FIORICET TAB PO PRN (08:41)
[2021-08-07 08:42] LABS: ANISOCYTOSIS 1+; MICROCYTOSIS 1+; PLATELET ESTIMATE DECREASED (NORMAL)
[2021-08-07 14:00] VITALS: BP 136/89
[2021-08-07] MEDS: MONTELUKAST 10 MG TAB PO SCH (22:07)
[2021-08-07] MEDS: DULoxetine 30MG CAPSULE (CYMBALTA) PO SCH (22:07)
[2021-08-08] MEDS: FIORICET TAB PO PRN (02:09)
[2021-08-08 05:18] LABS: HEMATOCRIT 30.1 % (36.0-47.0); HEMOGLOBIN 10.1 g/dl (12.0-15.5); MEAN CORPUSCULAR HEMOGLOBIN 31.1 pg (27.0-33.0); MEAN CORPUSCULAR HGB CONC 33.6 g/dl (32.0-36.5); MEAN CORPUSCULAR VOLUME 92.6 fl (80.0-96.0); PLATELET COUNT, AUTOMATED 178 10^3/uL (150-450); RED BLOOD COUNT 3.25 10^6/uL (4.00-5.40)
[2021-08-08 05:39] LABS: BLOOD UREA NITROGEN 6 MG/DL (7-18); CALCIUM LEVEL 7.6 MG/DL (8.5-10.1); CARBON DIOXIDE LEVEL 27 MEQ/L (21-32); CHLORIDE LEVEL 108 MEQ/L (98-107); GLOMERULAR FILTRATION RATE > 60.0 (>58); GLUCOSE, FASTING 68 MG/DL (70-100); MAGNESIUM LEVEL 1.8 MG/DL (1.8-2.4); POTASSIUM SERUM 4.3 MEQ/L (3.5-5.1); SODIUM LEVEL 141 MEQ/L (136-145)
[2021-08-08] MEDS: LEVOTHYROXINE 25MCG TABLET (0.025MG) PO SCH (05:39)
[2021-08-08] MEDS: SODIUM CHLORIDE 0.9% INJ 10 ML SYR IV SCH ×2 (05:40→16:51)
[2021-08-08 05:41] LABS: ATYPICAL LYMPH 1 % (0-5); EOSINOPHILS 3 % (0-3); LYMPHOCYTES 53 % (16-44); MONOCYTES 7 % (0-5); NEUTROPHILS 36 % (28-66); PLATELET ESTIMATE NORMAL (NORMAL)
[2021-08-08 05:42] LABS: ANISOCYTOSIS 2+; PLATELET CLUMPS SMALL AMT
[2021-08-08 06:27] VITALS: BP 100/81
[2021-08-08] MEDS: SUCRALFATE 1 GM TAB PO SCH ×4 (07:30→21:35)
[2021-08-08] MEDS: ASPIRIN 81MG ENTERIC TABLET PO SCH (09:16)
[2021-08-08] MEDS: PANTOPRAZOLE 40MG TAB (PROTONIX) PO SCH (09:17)
[2021-08-08] MEDS: THIAMINE 100 MG TAB PO SCH (09:17)
[2021-08-08] MEDS: GABAPENTIN 100 MG CAP PO SCH ×3 (09:17→21:35)
[2021-08-08] MEDS: POTASSIUM CHLORIDE 10MEQ SR TABLET PO SCH ×2 (09:17→21:36)
[2021-08-08] MEDS: DOXYCYCLINE HYCLATE 100MG TABLET PO SCH ×2 (09:17→21:35)
[2021-08-08] MEDS: MAGNESIUM OXIDE 400MG TAB (MAG-OX) PO SCH (09:18)
[2021-08-08] MEDS: HYDROXYCHLOROQUINE 200 MG TAB PO SCH ×2 (09:18→21:35)
[2021-08-08] MEDS: DIVALPROEX 250 MG TAB PO SCH ×2 (09:18→21:34)
[2021-08-08] MEDS: TAMSULOSIN 0.4 MG CAP PO SCH (09:18)
[2021-08-08] MEDS: oxyCODONE 5MG TAB PO PRN ×2 (11:19→21:37)
[2021-08-08] MEDS: SUMAtriptan SUCCINATE 25 MG TAB PO PRN (12:05)
[2021-08-08 20:27] VITALS: BP 136/92
[2021-08-08] MEDS: DULoxetine 30MG CAPSULE (CYMBALTA) PO SCH (21:35)
[2021-08-08] MEDS: MONTELUKAST 10 MG TAB PO SCH (21:35)
[2021-08-09 05:00] VITALS: BP 125/78
[2021-08-09] MEDS: LEVOTHYROXINE 25MCG TABLET (0.025MG) PO SCH (05:38)
[2021-08-09] MEDS: FIORICET TAB PO PRN (05:39)
[2021-08-09] MEDS: SODIUM CHLORIDE 0.9% INJ 10 ML SYR IV SCH ×2 (05:42→17:01)
[2021-08-09 06:00] LABS: HEMATOCRIT 31.4 % (36.0-47.0); HEMOGLOBIN 10.3 g/dl (12.0-15.5); MEAN CORPUSCULAR HEMOGLOBIN 30.7 pg (27.0-33.0); MEAN CORPUSCULAR HGB CONC 32.8 g/dl (32.0-36.5); MEAN CORPUSCULAR VOLUME 93.7 fl (80.0-96.0); PLATELET COUNT, AUTOMATED 200 10^3/uL (150-450); RED BLOOD COUNT 3.35 10^6/uL (4.00-5.40); WHITE BLOOD COUNT 5.8 10^3/uL (4.0-10.0)
[2021-08-09 06:31] LABS: BLOOD UREA NITROGEN 6 MG/DL (7-18); CALCIUM LEVEL 7.9 MG/DL (8.5-10.1); CARBON DIOXIDE LEVEL 29 MEQ/L (21-32); CHLORIDE LEVEL 108 MEQ/L (98-107); CREATININE FOR GFR 0.54 MG/DL (0.55-1.30); GLOMERULAR FILTRATION RATE > 60.0 (>58); GLUCOSE, FASTING 69 MG/DL (70-100); MAGNESIUM LEVEL 1.5 MG/DL (1.8-2.4); SODIUM LEVEL 142 MEQ/L (136-145)
[2021-08-09 08:02] LABS: ATYPICAL LYMPH 3 % (0-5); BASOPHILS 2 % (0-1); LYMPHOCYTES 58 % (16-44); MONOCYTES 1 % (0-5); NEUTROPHILS 35 % (28-66); PLATELET ESTIMATE NORMAL (NORMAL)
[2021-08-09 08:03] LABS: ANISOCYTOSIS 1+
[2021-08-09] MEDS: PANTOPRAZOLE 40MG TAB (PROTONIX) PO SCH (08:28)
[2021-08-09] MEDS: TAMSULOSIN 0.4 MG CAP PO SCH (08:28)
[2021-08-09] MEDS: MAGNESIUM OXIDE 400MG TAB (MAG-OX) PO SCH (08:28)
[2021-08-09] MEDS: oxyCODONE 5MG TAB PO PRN ×2 (08:28→21:05)
[2021-08-09] MEDS: THIAMINE 100 MG TAB PO SCH (08:28)
[2021-08-09] MEDS: DIVALPROEX 250 MG TAB PO SCH ×2 (08:28→21:03)
[2021-08-09] MEDS: DOXYCYCLINE HYCLATE 100MG TABLET PO SCH ×2 (08:28→21:03)
[2021-08-09] MEDS: ASPIRIN 81MG ENTERIC TABLET PO SCH (08:28)
[2021-08-09] MEDS: GABAPENTIN 100 MG CAP PO SCH ×3 (08:29→21:03)
[2021-08-09] MEDS: HYDROXYCHLOROQUINE 200 MG TAB PO SCH ×2 (08:29→21:04)
[2021-08-09] MEDS: POTASSIUM CHLORIDE 10MEQ SR TABLET PO SCH ×2 (08:29→21:04)
[2021-08-09] MEDS: SUCRALFATE 1 GM TAB PO SCH ×4 (08:29→21:03)
[2021-08-09] MEDS: PROMETHAZINE 25 MG TAB PO PRN (11:32)
[2021-08-09 14:00] VITALS: BP 131/90
[2021-08-09 19:50] VITALS: BP 127/89
[2021-08-09] MEDS: DULoxetine 30MG CAPSULE (CYMBALTA) PO SCH (21:03)
[2021-08-09] MEDS: RAMELTEON 8 MG TAB (ROZEREM) PO PRN (21:04)
[2021-08-09] MEDS: MONTELUKAST 10 MG TAB PO SCH (21:04)
[2021-08-10 04:45] VITALS: BP 143/92
[2021-08-10] MEDS: LEVOTHYROXINE 25MCG TABLET (0.025MG) PO SCH (05:00)
[2021-08-10] MEDS: SODIUM CHLORIDE 0.9% INJ 10 ML SYR IV SCH ×2 (05:01→16:57)
[2021-08-10 05:24] LABS: BASO # 0.1 10^3/uL (0.0-0.2); BASO % 1.3 % (0.0-1.0); HEMATOCRIT 28.9 % (36.0-47.0); HEMOGLOBIN 9.7 g/dl (12.0-15.5); LYMPH % 53.7 % (24.0-44.0); MEAN CORPUSCULAR HEMOGLOBIN 31.4 pg (27.0-33.0); MEAN CORPUSCULAR HGB CONC 33.6 g/dl (32.0-36.5); MEAN CORPUSCULAR VOLUME 93.5 fl (80.0-96.0); MONO # 0.4 10^3/uL (0.0-0.8); NEUTROPHILS % 36.3 % (36.0-66.0); PLATELET COUNT, AUTOMATED 225 10^3/uL (150-450); RED BLOOD COUNT 3.09 10^6/uL (4.00-5.40); WHITE BLOOD COUNT 5.5 10^3/uL (4.0-10.0)
[2021-08-10 05:40] LABS: BLOOD UREA NITROGEN 6 MG/DL (7-18); CALCIUM LEVEL 7.7 MG/DL (8.5-10.1); CARBON DIOXIDE LEVEL 29 MEQ/L (21-32); CHLORIDE LEVEL 108 MEQ/L (98-107); CREATININE FOR GFR 0.58 MG/DL (0.55-1.30); GLOMERULAR FILTRATION RATE > 60.0 (>58); GLUCOSE, FASTING 59 MG/DL (70-100); MAGNESIUM LEVEL 1.8 MG/DL (1.8-2.4); POTASSIUM SERUM 4.1 MEQ/L (3.5-5.1); SODIUM LEVEL 143 MEQ/L (136-145)
[2021-08-10] MEDS: THIAMINE 100 MG TAB PO SCH (09:17)
[2021-08-10] MEDS: POTASSIUM CHLORIDE 10MEQ SR TABLET PO SCH ×2 (09:17→21:29)
[2021-08-10] MEDS: PANTOPRAZOLE 40MG TAB (PROTONIX) PO SCH (09:17)
[2021-08-10] MEDS: HYDROXYCHLOROQUINE 200 MG TAB PO SCH ×2 (09:17→21:28)
[2021-08-10] MEDS: TAMSULOSIN 0.4 MG CAP PO SCH (09:17)
[2021-08-10] MEDS: GABAPENTIN 100 MG CAP PO SCH ×3 (09:17→21:28)
[2021-08-10] MEDS: SUCRALFATE 1 GM TAB PO SCH ×4 (09:17→21:29)
[2021-08-10] MEDS: DOXYCYCLINE HYCLATE 100MG TABLET PO SCH (09:17)
[2021-08-10] MEDS: ASPIRIN 81MG ENTERIC TABLET PO SCH (09:17)
[2021-08-10] MEDS: MAGNESIUM OXIDE 400MG TAB (MAG-OX) PO SCH (09:17)
[2021-08-10] MEDS: DIVALPROEX 250 MG TAB PO SCH ×2 (09:18→21:29)
[2021-08-10] MEDS: oxyCODONE 5MG TAB PO PRN ×2 (12:19→21:36)
[2021-08-10 14:00] VITALS: BP 105/75
[2021-08-10] MEDS: PROMETHAZINE 25 MG TAB PO PRN (21:28)
[2021-08-10] MEDS: DULoxetine 30MG CAPSULE (CYMBALTA) PO SCH (21:28)
[2021-08-10] MEDS: FIORICET TAB PO PRN (21:29)
[2021-08-10] MEDS: MONTELUKAST 10 MG TAB PO SCH (21:29)
[2021-08-10 22:43] VITALS: BP 106/75
[2021-08-11] MEDS: RAMELTEON 8 MG TAB (ROZEREM) PO PRN (01:41)
[2021-08-11] MEDS: FIORICET TAB PO PRN ×2 (04:19→20:13)
[2021-08-11] MEDS: LEVOTHYROXINE 25MCG TABLET (0.025MG) PO SCH (05:38)
[2021-08-11] MEDS: SODIUM CHLORIDE 0.9% INJ 10 ML SYR IV SCH ×2 (05:39→18:29)
[2021-08-11 05:51] LABS: BASO # 0.1 10^3/uL (0.0-0.2); BASO % 2.4 % (0.0-1.0); HEMATOCRIT 28.5 % (36.0-47.0); HEMOGLOBIN 9.4 g/dl (12.0-15.5); LYMPH # 3.2 10^3/uL (1.5-5.0); LYMPH % 54.1 % (24.0-44.0); MEAN CORPUSCULAR VOLUME 94.1 fl (80.0-96.0); MONO # 0.5 10^3/uL (0.0-0.8); MONO % 8.2 % (2.0-8.0); NEUTROPHILS % 34.8 % (36.0-66.0); PLATELET COUNT, AUTOMATED 254 10^3/uL (150-450); RED BLOOD COUNT 3.03 10^6/uL (4.00-5.40); WHITE BLOOD COUNT 5.8 10^3/uL (4.0-10.0)
[2021-08-11 06:18] LABS: BLOOD UREA NITROGEN 5 MG/DL (7-18); CALCIUM LEVEL 7.5 MG/DL (8.5-10.1); CARBON DIOXIDE LEVEL 27 MEQ/L (21-32); CHLORIDE LEVEL 108 MEQ/L (98-107); CREATININE FOR GFR 0.68 MG/DL (0.55-1.30); GLOMERULAR FILTRATION RATE > 60.0 (>58); GLUCOSE, FASTING 63 MG/DL (70-100); MAGNESIUM LEVEL 1.6 MG/DL (1.8-2.4); POTASSIUM SERUM 3.7 MEQ/L (3.5-5.1); SODIUM LEVEL 142 MEQ/L (136-145)
[2021-08-11 06:25] VITALS: BP 100/59
[2021-08-11] MEDS: PANTOPRAZOLE 40MG TAB (PROTONIX) PO SCH (08:54)
[2021-08-11] MEDS: ASPIRIN 81MG ENTERIC TABLET PO SCH (08:54)
[2021-08-11] MEDS: HYDROXYCHLOROQUINE 200 MG TAB PO SCH ×2 (08:55→20:06)
[2021-08-11] MEDS: GABAPENTIN 100 MG CAP PO SCH ×3 (08:55→20:06)
[2021-08-11] MEDS: DIVALPROEX 250 MG TAB PO SCH ×2 (08:56→20:06)
[2021-08-11] MEDS: POTASSIUM CHLORIDE 10MEQ SR TABLET PO SCH ×2 (08:56→20:05)
[2021-08-11] MEDS: SUCRALFATE 1 GM TAB PO SCH ×4 (08:57→20:06)
[2021-08-11] MEDS: THIAMINE 100 MG TAB PO SCH (08:57)
[2021-08-11] MEDS: TAMSULOSIN 0.4 MG CAP PO SCH (08:57)
[2021-08-11] MEDS: MAGNESIUM OXIDE 400MG TAB (MAG-OX) PO SCH ×2 (08:58→20:05)
[2021-08-11] MEDS: SUMAtriptan SUCCINATE 25 MG TAB PO PRN (09:00)
[2021-08-11] MEDS: DULoxetine 30MG CAPSULE (CYMBALTA) PO SCH (20:05)
[2021-08-11] MEDS: MONTELUKAST 10 MG TAB PO SCH (20:06)
[2021-08-11] MEDS: oxyCODONE 5MG TAB PO PRN (20:14)
[2021-08-12 06:00] VITALS: BP 112/74
[2021-08-12] MEDS: LEVOTHYROXINE 25MCG TABLET (0.025MG) PO SCH (06:04)
[2021-08-12] MEDS: SODIUM CHLORIDE 0.9% INJ 10 ML SYR IV SCH ×2 (06:05→17:14)
[2021-08-12 06:20] VITALS: BP 112/74
[2021-08-12 06:34] LABS: BASO # 0.1 10^3/uL (0.0-0.2); BASO % 2.2 % (0.0-1.0); EOS % 0.8 % (0.0-3.0); HEMATOCRIT 27.9 % (36.0-47.0); HEMOGLOBIN 9.2 g/dl (12.0-15.5); LYMPH # 2.7 10^3/uL (1.5-5.0); LYMPH % 54.2 % (24.0-44.0); MEAN CORPUSCULAR HEMOGLOBIN 31.5 pg (27.0-33.0); MEAN CORPUSCULAR VOLUME 95.5 fl (80.0-96.0); MONO # 0.4 10^3/uL (0.0-0.8); MONO % 8.3 % (2.0-8.0); NEUTROPHILS # 1.7 10^3/uL (1.5-8.5); NEUTROPHILS % 34.1 % (36.0-66.0); PLATELET COUNT, AUTOMATED 271 10^3/uL (150-450); RED BLOOD COUNT 2.92 10^6/uL (4.00-5.40)
[2021-08-12 06:55] LABS: BLOOD UREA NITROGEN 4 MG/DL (7-18); CALCIUM LEVEL 7.7 MG/DL (8.5-10.1); CARBON DIOXIDE LEVEL 27 MEQ/L (21-32); CHLORIDE LEVEL 112 MEQ/L (98-107); CREATININE FOR GFR 0.75 MG/DL (0.55-1.30); GLOMERULAR FILTRATION RATE > 60.0 (>58); GLUCOSE, FASTING 69 MG/DL (70-100); MAGNESIUM LEVEL 1.7 MG/DL (1.8-2.4); POTASSIUM SERUM 3.9 MEQ/L (3.5-5.1); SODIUM LEVEL 145 MEQ/L (136-145)
[2021-08-12] MEDS: SUCRALFATE 1 GM TAB PO SCH ×4 (09:33→20:58)
[2021-08-12] MEDS: THIAMINE 100 MG TAB PO SCH (09:33)
[2021-08-12] MEDS: TAMSULOSIN 0.4 MG CAP PO SCH (09:33)
[2021-08-12] MEDS: GABAPENTIN 100 MG CAP PO SCH ×3 (09:33→20:58)
[2021-08-12] MEDS: ASPIRIN 81MG ENTERIC TABLET PO SCH (09:33)
[2021-08-12] MEDS: DIVALPROEX 250 MG TAB PO SCH ×2 (09:34→20:57)
[2021-08-12] MEDS: POTASSIUM CHLORIDE 10MEQ SR TABLET PO SCH ×2 (09:34→20:57)
[2021-08-12] MEDS: PANTOPRAZOLE 40MG TAB (PROTONIX) PO SCH (09:34)
[2021-08-12] MEDS: HYDROXYCHLOROQUINE 200 MG TAB PO SCH ×2 (09:34→20:56)
[2021-08-12] MEDS: MAGNESIUM OXIDE 400MG TAB (MAG-OX) PO SCH ×2 (09:34→20:58)
[2021-08-12] MEDS: FIORICET TAB PO PRN (09:50)
[2021-08-12] MEDS: oxyCODONE 5MG TAB PO PRN (09:51)
[2021-08-12] MEDS: SUMAtriptan SUCCINATE 25 MG TAB PO PRN (15:44)
[2021-08-12] MEDS: PROMETHAZINE 25 MG TAB PO PRN (15:45)
[2021-08-12] MEDS: MONTELUKAST 10 MG TAB PO SCH (20:57)
[2021-08-12] MEDS: DULoxetine 30MG CAPSULE (CYMBALTA) PO SCH (20:57)
[2021-08-12] MEDS: RAMELTEON 8 MG TAB (ROZEREM) PO PRN (21:14)
[2021-08-13] MEDS: LEVOTHYROXINE 25MCG TABLET (0.025MG) PO SCH (05:25)
[2021-08-13] MEDS: SODIUM CHLORIDE 0.9% INJ 10 ML SYR IV SCH ×2 (05:26→17:08)
[2021-08-13] MEDS: PROMETHAZINE 25 MG TAB PO PRN (05:57)
[2021-08-13 06:00] VITALS: BP 121/75
[2021-08-13] MEDS: SUCRALFATE 1 GM TAB PO SCH ×4 (07:30→21:50)
[2021-08-13] MEDS: DIVALPROEX 250 MG TAB PO SCH ×2 (09:42→21:49)
[2021-08-13] MEDS: ASPIRIN 81MG ENTERIC TABLET PO SCH (09:42)
[2021-08-13] MEDS: GABAPENTIN 100 MG CAP PO SCH ×3 (09:42→21:50)
[2021-08-13] MEDS: PANTOPRAZOLE 40MG TAB (PROTONIX) PO SCH (09:42)
[2021-08-13] MEDS: TAMSULOSIN 0.4 MG CAP PO SCH (09:42)
[2021-08-13] MEDS: THIAMINE 100 MG TAB PO SCH (09:42)
[2021-08-13] MEDS: MAGNESIUM OXIDE 400MG TAB (MAG-OX) PO SCH ×2 (09:43→21:50)
[2021-08-13] MEDS: HYDROXYCHLOROQUINE 200 MG TAB PO SCH ×2 (09:43→21:49)
[2021-08-13] MEDS: POTASSIUM CHLORIDE 10MEQ SR TABLET PO SCH ×2 (09:43→21:49)
[2021-08-13] MEDS: FIORICET TAB PO PRN ×2 (10:34→21:51)
[2021-08-13] MEDS: oxyCODONE 5MG TAB PO PRN (10:35)
[2021-08-13] MEDS: MONTELUKAST 10 MG TAB PO SCH (21:49)
[2021-08-13] MEDS: DULoxetine 30MG CAPSULE (CYMBALTA) PO SCH (21:50)
[2021-08-13] MEDS: RAMELTEON 8 MG TAB (ROZEREM) PO PRN (21:58)
[2021-08-14] MEDS: SUMAtriptan SUCCINATE 25 MG TAB PO PRN ×2 (06:03→16:44)
[2021-08-14] MEDS: LEVOTHYROXINE 25MCG TABLET (0.025MG) PO SCH (06:03)
[2021-08-14] MEDS: PROMETHAZINE 25 MG TAB PO PRN ×2 (06:03→12:27)
[2021-08-14] MEDS: SODIUM CHLORIDE 0.9% INJ 10 ML SYR IV SCH ×2 (06:04→18:32)
[2021-08-14 06:35] LABS: HEMATOCRIT 29.3 % (36.0-47.0); HEMOGLOBIN 9.5 g/dl (12.0-15.5); MEAN CORPUSCULAR HEMOGLOBIN 31.4 pg (27.0-33.0); MEAN CORPUSCULAR HGB CONC 32.4 g/dl (32.0-36.5); MEAN CORPUSCULAR VOLUME 96.7 fl (80.0-96.0); PLATELET COUNT, AUTOMATED 280 10^3/uL (150-450); RED BLOOD COUNT 3.03 10^6/uL (4.00-5.40)
[2021-08-14 06:52] LABS: BLOOD UREA NITROGEN 3 MG/DL (7-18); CALCIUM LEVEL 7.5 MG/DL (8.5-10.1); CARBON DIOXIDE LEVEL 28 MEQ/L (21-32); CHLORIDE LEVEL 112 MEQ/L (98-107); CREATININE FOR GFR 0.58 MG/DL (0.55-1.30); GLOMERULAR FILTRATION RATE > 60.0 (>58); GLUCOSE, FASTING 67 MG/DL (70-100); MAGNESIUM LEVEL 1.7 MG/DL (1.8-2.4); SODIUM LEVEL 142 MEQ/L (136-145)
[2021-08-14] MEDS: SUCRALFATE 1 GM TAB PO SCH ×4 (07:30→20:57)
[2021-08-14 08:27] LABS: ATYPICAL LYMPH 3 % (0-5); BASOPHILS 5 % (0-1); EOSINOPHILS 1 % (0-3); LYMPHOCYTES 46 % (16-44); MONOCYTES 9 % (0-5); NEUTROPHILS 36 % (28-66); PLATELET ESTIMATE NORMAL (NORMAL)
[2021-08-14 08:28] LABS: ANISOCYTOSIS 1+
[2021-08-14] MEDS: MAGNESIUM OXIDE 400MG TAB (MAG-OX) PO SCH ×2 (09:30→20:57)
[2021-08-14] MEDS: THIAMINE 100 MG TAB PO SCH (09:30)
[2021-08-14] MEDS: HYDROXYCHLOROQUINE 200 MG TAB PO SCH ×2 (09:30→20:57)
[2021-08-14] MEDS: GABAPENTIN 100 MG CAP PO SCH ×3 (09:30→20:57)
[2021-08-14] MEDS: TAMSULOSIN 0.4 MG CAP PO SCH (09:30)
[2021-08-14] MEDS: POTASSIUM CHLORIDE 10MEQ SR TABLET PO SCH ×2 (09:30→20:57)
[2021-08-14] MEDS: PANTOPRAZOLE 40MG TAB (PROTONIX) PO SCH (09:30)
[2021-08-14] MEDS: ASPIRIN 81MG ENTERIC TABLET PO SCH (09:31)
[2021-08-14] MEDS: oxyCODONE 5MG TAB PO PRN (09:31)
[2021-08-14] MEDS: FIORICET TAB PO PRN (09:31)
[2021-08-14] MEDS: DIVALPROEX 250 MG TAB PO SCH ×2 (09:31→20:56)
[2021-08-14] MEDS: DEXTROSE 50% 50 ML SYRINGE IV PRN (18:32)
[2021-08-14] MEDS: DULoxetine 30MG CAPSULE (CYMBALTA) PO SCH (20:56)
[2021-08-14] MEDS: MONTELUKAST 10 MG TAB PO SCH (20:57)
[2021-08-15] MEDS: LEVOTHYROXINE 25MCG TABLET (0.025MG) PO SCH (05:37)
[2021-08-15] MEDS: SODIUM CHLORIDE 0.9% INJ 10 ML SYR IV SCH ×2 (05:38→17:15)
[2021-08-15 06:31] VITALS: BP 139/92
[2021-08-15] MEDS: ASPIRIN 81MG ENTERIC TABLET PO SCH (08:48)
[2021-08-15] MEDS: DIVALPROEX 250 MG TAB PO SCH ×2 (08:49→20:14)
[2021-08-15] MEDS: MAGNESIUM OXIDE 400MG TAB (MAG-OX) PO SCH ×2 (08:49→20:14)
[2021-08-15] MEDS: PANTOPRAZOLE 40MG TAB (PROTONIX) PO SCH (08:49)
[2021-08-15] MEDS: POTASSIUM CHLORIDE 10MEQ SR TABLET PO SCH ×2 (08:49→20:14)
[2021-08-15] MEDS: GABAPENTIN 100 MG CAP PO SCH ×3 (08:49→20:14)
[2021-08-15] MEDS: THIAMINE 100 MG TAB PO SCH (08:49)
[2021-08-15] MEDS: TAMSULOSIN 0.4 MG CAP PO SCH (08:50)
[2021-08-15] MEDS: SUCRALFATE 1 GM TAB PO SCH ×4 (08:50→20:14)
[2021-08-15] MEDS: HYDROXYCHLOROQUINE 200 MG TAB PO SCH ×2 (08:50→20:14)
[2021-08-15] MEDS: PROMETHAZINE 25 MG TAB PO PRN (08:57)
[2021-08-15] MEDS: MONTELUKAST 10 MG TAB PO SCH (20:14)
[2021-08-15] MEDS: DULoxetine 30MG CAPSULE (CYMBALTA) PO SCH (20:14)
[2021-08-16 04:48] VITALS: BP 123/87
[2021-08-16] MEDS: FIORICET TAB PO PRN ×3 (06:01→21:23)
[2021-08-16] MEDS: oxyCODONE 5MG TAB PO PRN ×2 (06:01→15:03)
[2021-08-16] MEDS: LEVOTHYROXINE 25MCG TABLET (0.025MG) PO SCH (06:01)
[2021-08-16] MEDS: SODIUM CHLORIDE 0.9% INJ 10 ML SYR IV SCH ×2 (06:02→18:52)
[2021-08-16] MEDS: PROMETHAZINE 25 MG TAB PO PRN ×2 (06:21→12:52)
[2021-08-16] MEDS: MAGNESIUM OXIDE 400MG TAB (MAG-OX) PO SCH ×2 (09:05→20:30)
[2021-08-16] MEDS: HYDROXYCHLOROQUINE 200 MG TAB PO SCH ×2 (09:05→20:30)
[2021-08-16] MEDS: GABAPENTIN 100 MG CAP PO SCH ×3 (09:05→20:31)
[2021-08-16] MEDS: POTASSIUM CHLORIDE 10MEQ SR TABLET PO SCH ×2 (09:05→20:31)
[2021-08-16] MEDS: SUCRALFATE 1 GM TAB PO SCH ×4 (09:05→20:31)
[2021-08-16] MEDS: THIAMINE 100 MG TAB PO SCH (09:05)
[2021-08-16] MEDS: ASPIRIN 81MG ENTERIC TABLET PO SCH (09:05)
[2021-08-16] MEDS: TAMSULOSIN 0.4 MG CAP PO SCH (09:05)
[2021-08-16] MEDS: PANTOPRAZOLE 40MG TAB (PROTONIX) PO SCH (09:06)
[2021-08-16] MEDS: DIVALPROEX 250 MG TAB PO SCH ×2 (09:06→20:31)
[2021-08-16] MEDS: SUMAtriptan SUCCINATE 25 MG TAB PO PRN (12:52)
[2021-08-16] MEDS: DULoxetine 30MG CAPSULE (CYMBALTA) PO SCH (20:30)
[2021-08-16] MEDS: MONTELUKAST 10 MG TAB PO SCH (20:31)
[2021-08-16] MEDS: RAMELTEON 8 MG TAB (ROZEREM) PO PRN (20:36)
[2021-08-17 06:00] VITALS: BP 135/79
[2021-08-17] MEDS: PROMETHAZINE 25 MG TAB PO PRN ×3 (06:14→21:35)
[2021-08-17] MEDS: LEVOTHYROXINE 25MCG TABLET (0.025MG) PO SCH (06:14)
[2021-08-17] MEDS: SODIUM CHLORIDE 0.9% INJ 10 ML SYR IV SCH ×2 (06:15→16:48)
[2021-08-17] MEDS: SUCRALFATE 1 GM TAB PO SCH ×4 (07:28→21:35)
[2021-08-17] MEDS: MAGNESIUM OXIDE 400MG TAB (MAG-OX) PO SCH ×2 (08:14→21:36)
[2021-08-17] MEDS: HYDROXYCHLOROQUINE 200 MG TAB PO SCH ×2 (08:14→21:35)
[2021-08-17] MEDS: DIVALPROEX 250 MG TAB PO SCH ×2 (08:15→21:34)
[2021-08-17] MEDS: THIAMINE 100 MG TAB PO SCH (08:15)
[2021-08-17] MEDS: PANTOPRAZOLE 40MG TAB (PROTONIX) PO SCH (08:15)
[2021-08-17] MEDS: TAMSULOSIN 0.4 MG CAP PO SCH (08:15)
[2021-08-17] MEDS: ASPIRIN 81MG ENTERIC TABLET PO SCH (08:16)
[2021-08-17] MEDS: FIORICET TAB PO PRN (08:16)
[2021-08-17] MEDS: POTASSIUM CHLORIDE 10MEQ SR TABLET PO SCH ×2 (08:16→21:36)
[2021-08-17] MEDS: GABAPENTIN 100 MG CAP PO SCH ×3 (08:16→21:35)
[2021-08-17] MEDS: oxyCODONE 5MG TAB PO PRN ×2 (08:17→21:39)
[2021-08-17] MEDS: SUMAtriptan SUCCINATE 25 MG TAB PO PRN (09:44)
[2021-08-17] MEDS: DULoxetine 30MG CAPSULE (CYMBALTA) PO SCH (21:35)
[2021-08-17] MEDS: RAMELTEON 8 MG TAB (ROZEREM) PO PRN (21:35)
[2021-08-17] MEDS: MONTELUKAST 10 MG TAB PO SCH (21:36)
[2021-08-18] MEDS: DEXTROSE 50% 50 ML SYRINGE IV PRN (05:57)
[2021-08-18] MEDS: LEVOTHYROXINE 25MCG TABLET (0.025MG) PO SCH (05:57)
[2021-08-18] MEDS: SODIUM CHLORIDE 0.9% INJ 10 ML SYR IV SCH ×2 (05:57→17:02)
[2021-08-18 06:00] VITALS: BP 115/84
[2021-08-18] MEDS: SUCRALFATE 1 GM TAB PO SCH ×4 (06:56→21:04)
[2021-08-18] MEDS: FIORICET TAB PO PRN (09:09)
[2021-08-18] MEDS: THIAMINE 100 MG TAB PO SCH (09:09)
[2021-08-18] MEDS: PROMETHAZINE 25 MG TAB PO PRN ×2 (09:09→21:02)
[2021-08-18] MEDS: DIVALPROEX 250 MG TAB PO SCH ×2 (09:09→21:02)
[2021-08-18] MEDS: ASPIRIN 81MG ENTERIC TABLET PO SCH (09:10)
[2021-08-18] MEDS: MAGNESIUM OXIDE 400MG TAB (MAG-OX) PO SCH ×2 (09:10→21:04)
[2021-08-18] MEDS: TAMSULOSIN 0.4 MG CAP PO SCH (09:10)
[2021-08-18] MEDS: GABAPENTIN 100 MG CAP PO SCH ×3 (09:10→21:03)
[2021-08-18] MEDS: PANTOPRAZOLE 40MG TAB (PROTONIX) PO SCH (09:11)
[2021-08-18] MEDS: HYDROXYCHLOROQUINE 200 MG TAB PO SCH ×2 (09:11→21:02)
[2021-08-18] MEDS: oxyCODONE 5MG TAB PO PRN ×2 (09:11→21:03)
[2021-08-18] MEDS: POTASSIUM CHLORIDE 10MEQ SR TABLET PO SCH ×2 (09:12→21:04)
[2021-08-18] MEDS: SUMAtriptan SUCCINATE 25 MG TAB PO PRN (17:01)
[2021-08-18] MEDS: RAMELTEON 8 MG TAB (ROZEREM) PO PRN (21:03)
[2021-08-18] MEDS: MONTELUKAST 10 MG TAB PO SCH (21:03)
[2021-08-18] MEDS: DULoxetine 30MG CAPSULE (CYMBALTA) PO SCH (21:04)
[2021-08-19] MEDS: LEVOTHYROXINE 25MCG TABLET (0.025MG) PO SCH (05:31)
[2021-08-19] MEDS: SODIUM CHLORIDE 0.9% INJ 10 ML SYR IV SCH ×2 (05:31→17:27)
[2021-08-19 07:00] VITALS: BP 89/59
[2021-08-19] MEDS ORDERED: NS 1,000 ML IV ONE (07:40)
[2021-08-19] MEDS: MAGNESIUM OXIDE 400MG TAB (MAG-OX) PO SCH ×2 (08:14→20:11)
[2021-08-19] MEDS: SUCRALFATE 1 GM TAB PO SCH ×4 (08:14→20:10)
[2021-08-19] MEDS: HYDROXYCHLOROQUINE 200 MG TAB PO SCH ×2 (08:14→20:10)
[2021-08-19] MEDS: DIVALPROEX 250 MG TAB PO SCH ×2 (08:14→20:11)
[2021-08-19] MEDS: GABAPENTIN 100 MG CAP PO SCH ×3 (08:14→20:09)
[2021-08-19] MEDS: PANTOPRAZOLE 40MG TAB (PROTONIX) PO SCH (08:14)
[2021-08-19] MEDS: TAMSULOSIN 0.4 MG CAP PO SCH (08:14)
[2021-08-19] MEDS: POTASSIUM CHLORIDE 10MEQ SR TABLET PO SCH ×2 (08:15→20:10)
[2021-08-19] MEDS: THIAMINE 100 MG TAB PO SCH (08:15)
[2021-08-19] MEDS: ASPIRIN 81MG ENTERIC TABLET PO SCH (08:15)
[2021-08-19] MEDS: oxyCODONE 5MG TAB PO PRN (09:36)
[2021-08-19] MEDS: FIORICET TAB PO PRN ×2 (09:36→20:10)
[2021-08-19 10:30] VITALS: BP 108/82
--- NOTE | 2021-08-19 16:36 | IPNPDOC ---
Text Note Date of Service The patient was seen on 08/19/21. NOTE Subjective: -had suger of 50 and felt weak this morning but was refusing to eat. Ordered D50 and fluids, then nurse convinced her to take some PO. Now improved. Objective: Vitals (See below) General: Lying in bed, appears comfortable, AAOx3 HEENT: NC, AT CVS: +S1S2 Lungs: Fair air entry b/l, no evidence of wheezing, rales or rhonchi Abdomen: Soft, ND, NT Extremities: - Edema, - Calf tenderness Imaging: CT Cervical spine 07/30: 1. Patchy peripheral ground-glass infiltrate is seen in the upper lung rios of concern for possible COVID-19 pneumonia. 2. No evidence of an acute cervical spine abnormality. CXR 07/30: No acute pulmonary disease. CT head 07/30: 1. There is divergent gaze. 2. No acute intracranial process is identified. CT abdomen / pelvis 07/31: 1. Region of low attenuation in the right main pulmonary artery and right lower lobar pulmonary artery (image 1 of the axial series 201), which is suspicious for a pulmonary embolism. A CTA chest with intravenous contrast is suggested for further evaluation. 2. Commonly reported imaging features of COVID-19 pneumonia are present. Other processes such as influenza pneumonia and organizing pneumonia, as can be seen with drug toxicity and connective tissue disease, can cause a similar imaging pattern. (Reference: Lexa) 3. Enlarged, fatty liver. 4. Healing fractures of the right anterior 6th and 7th ribs and right posterior 10th and 11th ribs, which can also be seen in the CT abdomen and pelvis on 07/18/2021. US guided needle placement (PICC line) 07/31: PICC line insertion right brachial vein with the tip ending in the SVC. Vascular US 07/31: No deep vein thrombosis in the veins imaged in both lower extremities. CT angio chest 08/02 1. No evidence for pulmonary embolus. 2. Patchy opacities with minimal basilar atelectasis. Differential diagnosis includes multifocal infectious/inflammatory process including possible COVID-19 pulmonary disease. 3. Marked hepatosteatosis and mild to moderate diffuse subcutaneous edema to the surrounding visualized subcutaneous tissues. Renal US 08/04: 1. No hydronephrosis in either kidney. See above Assessment and plan: s/p Acute toxic encephalopathy - likely 2/2 polypharmacy - Clinically patient is oriented to person, place and time - Mentation appears to be baseline - No focal neurologic deficits - Imaging noted above - s/p Opiates / Zolpidem Possible interstitial pneumonia - Patient does not have any shortness of breath - Saturating well on room air - PCT of 2.05 - Respiratory panel 07/30: Negative - Blood cultures 08/02: No growth at 72 hours - s/p abx Elevated troponin - likely 2/2 demand ischemia, unlikely 2/2 NSTEMI - Patient has not experience any chest pain, shortness of breath or palpitations - Troponin trend improved - EKG reviewed - c/w ASA 81; Will consider Atorvastatin on discharge (re: hold for now given transaminitis) s/p PARAS - Creatinine has normalized - Imaging noted above s/p Rhabdomyolysis: resolved after fluids Transaminitis / Hyperbilirubinemia - likely 2/2 medications - Normalized - s/p Methotrexate (re: hepatotoxic) s/p Thrombocytopenia - No evidence of bleeding, monitor Anemia - Hg trended down without evidence of bleeding - Suspect this is likely 2/2 dilutional etiology; has been positive fluid balance by 4 L Hypomagnesemia, repleted Migraines - c/w sumatriptan RA - c/w Hydroxychloroquine; Will hold Methotrexate - Will have outpatient follow-up with rheumatology for resumption of methotrexate therapy Chronic Asthma - No evidence of exacerbation - c/w Inhaled therapy as ordered Anxiety / Depression / Hx SI / Bipolar / Bulimia - c/w Duloxetine, Gabapentin GI prophylaxis - c/w Pantoprazole, sucralfate DVT prophylaxis - c/w TEDs/Sequentials Disposition: - ALC, pending placement VS,Fishbone, I+O VS, Fishbone, I+O Vital Signs Date Time Temp Pulse Resp B/P (MAP) Pulse Ox O2 Delivery O2 Flow Rate FiO2 08/19/21 10:30 108/82 (91) 96 08/19/21 10:06 18 08/19/21 07:00 98.3 96 Room Air I&O- Last 24 Hours up to 6 AM 08/19/21 06:00 Intake Total 377 ml Output Total 650 ml Balance -273 ml AYE NEAL MD Aug 19, 2021 16:35
[2021-08-19] MEDS: DULoxetine 30MG CAPSULE (CYMBALTA) PO SCH (20:09)
[2021-08-19] MEDS: PROMETHAZINE 25 MG TAB PO PRN (20:09)
[2021-08-19] MEDS: MONTELUKAST 10 MG TAB PO SCH (20:10)
[2021-08-19] MEDS: RAMELTEON 8 MG TAB (ROZEREM) PO PRN (20:11)
[2021-08-20] MEDS: LEVOTHYROXINE 25MCG TABLET (0.025MG) PO SCH (05:53)
[2021-08-20] MEDS: SODIUM CHLORIDE 0.9% INJ 10 ML SYR IV SCH ×2 (05:53→17:04)
[2021-08-20 06:48] VITALS: BP 130/90
[2021-08-20] MEDS: GABAPENTIN 100 MG CAP PO SCH ×3 (08:00→21:00)
[2021-08-20] MEDS: ASPIRIN 81MG ENTERIC TABLET PO SCH (08:00)
[2021-08-20] MEDS: PANTOPRAZOLE 40MG TAB (PROTONIX) PO SCH (08:00)
[2021-08-20] MEDS: SUCRALFATE 1 GM TAB PO SCH ×4 (08:00→21:14)
[2021-08-20] MEDS: DIVALPROEX 250 MG TAB PO SCH ×2 (08:01→21:15)
[2021-08-20] MEDS: TAMSULOSIN 0.4 MG CAP PO SCH (08:01)
[2021-08-20] MEDS: HYDROXYCHLOROQUINE 200 MG TAB PO SCH ×2 (08:01→21:15)
[2021-08-20] MEDS: THIAMINE 100 MG TAB PO SCH (08:01)
[2021-08-20] MEDS: MAGNESIUM OXIDE 400MG TAB (MAG-OX) PO SCH ×2 (08:01→21:15)
[2021-08-20] MEDS: POTASSIUM CHLORIDE 10MEQ SR TABLET PO SCH ×2 (08:01→21:15)
[2021-08-20 08:24] LABS: HEMATOCRIT 33.9 % (36.0-47.0); HEMOGLOBIN 10.8 g/dl (12.0-15.5); MEAN CORPUSCULAR HEMOGLOBIN 30.5 pg (27.0-33.0); MEAN CORPUSCULAR HGB CONC 31.9 g/dl (32.0-36.5); MEAN CORPUSCULAR VOLUME 95.8 fl (80.0-96.0); PLATELET COUNT, AUTOMATED 218 10^3/uL (150-450); RED BLOOD COUNT 3.54 10^6/uL (4.00-5.40); WHITE BLOOD COUNT 4.1 10^3/uL (4.0-10.0)
[2021-08-20 08:54] LABS: BLOOD UREA NITROGEN 2 MG/DL (7-18); CALCIUM LEVEL 8.2 MG/DL (8.5-10.1); CARBON DIOXIDE LEVEL 27 MEQ/L (21-32); CHLORIDE LEVEL 112 MEQ/L (98-107); CREATININE FOR GFR 0.69 MG/DL (0.55-1.30); GLOMERULAR FILTRATION RATE > 60.0 (>58); GLUCOSE, FASTING 69 MG/DL (70-100); MAGNESIUM LEVEL 1.8 MG/DL (1.8-2.4); POTASSIUM SERUM 4.4 MEQ/L (3.5-5.1); SODIUM LEVEL 143 MEQ/L (136-145)
[2021-08-20 09:36] LABS: BASOPHILS 1 % (0-1); EOSINOPHILS 1 % (0-3); LYMPHOCYTES 55 % (16-44); NEUTROPHILS 42 % (28-66); PLATELET ESTIMATE NORMAL (NORMAL)
--- NOTE | 2021-08-20 12:08 | IPNPDOC ---
Text Note Date of Service The patient was seen on 08/20/21. NOTE Subjective: Patient is a 41 year old female with a PMHx of extensive Psych history, Migraines, Sjgren's, SLE, RA, HTN, Asthma, Fatty liver disease who p resented to the emergency room after they were found on the floor. Patient was admitted to the hospital service for further evaluation, treatment of her confusion suspected to be secondary to medications. Patient was seen and examined at the bedside. Has not experience any chest pain, shortness breath, palpitations. Reports some nausea without any vomiting. Denies any abdominal pain, diarrhea. Reports some constipation. Denies any urinary discomfort, has been working with physical therapy. Throughout last week, patient did experience some hypoglycemic episodes and she has been encouraged to eat more. Objective: Vitals (See below) General: Patient is laying in bed, appears to be comfortable without any acute distress, AAOx3 HEENT: Atraumatic, normocephalic CVS: +S1S2 Lungs: There appears to be fair air entry bilaterally without any auscultated evidence of crackles, wheezing, rhonchi Abdomen: Soft, nondistended and nontender Extremities: No edema Imaging: CT Cervical spine 07/30: 1. Patchy peripheral ground-glass infiltrate is seen in the upper lung rios of concern for possible COVID-19 pneumonia. 2. No evidence of an acute cervical spine abnormality. CXR 07/30: No acute pulmonary disease. CT head 07/30: 1. There is divergent gaze. 2. No acute intracranial process is identified. CT abdomen / pelvis 07/31: 1. Region of low attenuation in the right main pulmonary artery and right lower lobar pulmonary artery (image 1 of the axial series 201), which is suspicious for a pulmonary embolism. A CTA chest with intravenous contrast is suggested for further evaluation. 2. Commonly reported imaging features of COVID-19 pneumonia are present. Other processes such as influenza pneumonia and organizing pneumonia, as can be seen with drug toxicity and connective tissue disease, can cause a similar imaging pattern. (Reference: Lexa) 3. Enlarged, fatty liver. 4. Healing fractures of the right anterior 6th and 7th ribs and right posterior 10th and 11th ribs, which can also be seen in the CT abdomen and pelvis on 07/18/2021. US guided needle placement (PICC line) 07/31: PICC line insertion right brachial vein with the tip ending in the SVC. Vascular US 07/31: No deep vein thrombosis in the veins imaged in both lower extremities. CT angio chest 08/02 1. No evidence for pulmonary embolus. 2. Patchy opacities with minimal basilar atelectasis. Differential diagnosis includes multifocal infectious/inflammatory process including possible COVID-19 pulmonary disease. 3. Marked hepatosteatosis and mild to moderate diffuse subcutaneous edema to the surrounding visualized subcutaneous tissues. Renal US 08/04: 1. No hydronephrosis in either kidney. See above Assessment and plan: s/p Acute toxic encephalopathy - likely 2/2 polypharmacy - AAOx3; Mentation at baseline - No focal neurologic deficits on physical - Imaging noted above - s/p Opiates / Zolpidem s/p Hypoglycemia - Encourage increased oral intake / small frequent meals Possible interstitial pneumonia - Asymptomatic - Continues to be saturating well on room air - PCT of 2.05 - Respiratory panel 07/30: Negative - Blood cultures 08/02: No growth at 5 days - s/p Doxycycline Elevated troponin - likely 2/2 demand ischemia, unlikely 2/2 NSTEMI - Remains asymptomatic without any chest pain, palpitations or shortness of breath - Troponin trend improved - EKG reviewed - c/w ASA 81; Will consider Atorvastatin on discharge s/p PARAS - Creatinine has normalized - Imaging noted above s/p Rhabdomyolysis Transaminitis / Hyperbilirubinemia - likely 2/2 medications - Has been trending down, essentially normalized - s/p Methotrexate (re: hepatotoxic) s/p Thrombocytopenia - No evidence of bleeding - Will continue to follow counts Anemia - Hg remains stable - s/p 2 units PRC - Will continue to follow trend s/p Hypomagnesemia Migraines - c/w sumatriptan RA - c/w Hydroxychloroquine; Will hold Methotrexate - Will have outpatient follow-up with rheumatology for resumption of methotrexate therapy Chronic Asthma - No evidence of exacerbation - c/w Inhaled therapy as ordered Anxiety / Depression / Hx SI / Bipolar / Bulimia - c/w Duloxetine, Gabapentin GI prophylaxis - c/w Pantoprazole, sucralfate DVT prophylaxis - c/w TEDs/Sequentials Disposition: - c/w ALC status - Looking into rehab VS,Fishbone, I+O VS, Fishbone, I+O Laboratory Tests 08/20/21 07:59 Vital Signs Date Time Temp Pulse Resp B/P (MAP) Pulse Ox O2 Delivery O2 Flow Rate FiO2 08/20/21 06:48 97.4 72 18 130/90 (103) 94 Room Air I&O- Last 24 Hours up to 6 AM 08/20/21 06:00 Intake Total 1340 ml Output Total 650 ml Balance 690 ml HAO OLSON MD Aug 20, 2021 12:08
[2021-08-20] MEDS: DULoxetine 30MG CAPSULE (CYMBALTA) PO SCH (21:14)
[2021-08-20] MEDS: MONTELUKAST 10 MG TAB PO SCH (21:15)
[2021-08-20 23:25] VITALS: BP 160/110
[2021-08-20] MEDS: DEXTROSE 50% 50 ML SYRINGE IV PRN (23:26)
[2021-08-21] MEDS ORDERED: **hydrALAZINE** 10 MG TAB PO ONE
[2021-08-21 01:46] LABS: BASO # 0.1 10^3/uL (0.0-0.2); BASO % 2.1 % (0.0-1.0); HEMATOCRIT 32.3 % (36.0-47.0); HEMOGLOBIN 10.3 g/dl (12.0-15.5); LYMPH # 2.5 10^3/uL (1.5-5.0); LYMPH % 51.8 % (24.0-44.0); MEAN CORPUSCULAR HEMOGLOBIN 30.5 pg (27.0-33.0); MEAN CORPUSCULAR HGB CONC 31.9 g/dl (32.0-36.5); MEAN CORPUSCULAR VOLUME 95.6 fl (80.0-96.0); MONO # 0.6 10^3/uL (0.0-0.8); MONO % 12.8 % (2.0-8.0); NEUTROPHILS # 1.6 10^3/uL (1.5-8.5); NEUTROPHILS % 33.1 % (36.0-66.0); PLATELET COUNT, AUTOMATED 203 10^3/uL (150-450); RED BLOOD COUNT 3.38 10^6/uL (4.00-5.40); WHITE BLOOD COUNT 4.8 10^3/uL (4.0-10.0)
[2021-08-21] MEDS ORDERED: NALOXONE INJ 0.4MG/1ML VIAL (J2310 PER 1MG) IV STA (01:53)
--- NOTE | 2021-08-21 01:57 | IPNPDOC ---
Text Note Date of Service The patient was seen on 08/21/21. NOTE Significant event-notified patient with confusion; reportedly patient has had some confusion since last night. BG 70/80s- pt given dextrose and improvement to 99, but still confused. Patient had come in alert oriented x1, found on floor 07/30, underwent treatment with improvement and downgraded to ALC status but then upgraded given her confusion/hypoglycemia.. She has significant history of psych and notably as she has had decreasing level of orientation since yesterday she also had some noted trouble swallowing pills-patient has documented dysphagia in 2017 and does have Sjogren's. Last opiate Roxicodone given a.m. At bedside, patient is oriented to self she is able to say she is in the hospital and the year. She is able to report that she "came in because found on floor". Patient reports that she knows that she has some confusion but now she is not confused. She incorrectly determines it is October 24 but then is able to read the white board and say August 20. Patient redirects and responds appropriately during conversation but then reports concern of "where the dog is" during exam when covering patient up with blanket. She is able to purposefully move all her extremities symmetric smile, equals equal round and reactive to light, patient does have divergent gaze but this was documented previously. She can follow commands. Patient with generalized deconditioning. She has equal strength bilaterally. 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 She reports that she does have some left lower extremity weakness at baseline from a history of stroke-gait not assessed as she is too weak to get out of bed. Patient describes her stroke in . Of note, CT head this admission nonacute. Metabolic lab work pending. UA did return after straight cath from patient with numerous wbcs and nitrate positive. Likely UTI contributing to patient's labile confusion. Consider differential we will treat with aztreonam presently given patient numerous allergies.. Monitor for worsening signs symptoms of infection. Follow-up urine culture follow-up lab work to determine any further interventions. Consider further neuro work-up accordingly. VS,Fishbone, I+O VS, Fishbone, I+O Laboratory Tests 08/20/21 07:59 Vital Signs Date Time Temp Pulse Resp B/P (MAP) Pulse Ox O2 Delivery O2 Flow Rate FiO2 08/20/21 23:25 160/110 08/20/21 06:48 97.4 72 18 94 Room Air I&O- Last 24 Hours up to 6 AM 08/21/21 06:00 Intake Total 240 ml Balance 240 ml ABHIJEET MCDANIEL NP Aug 21, 2021 01:48
[2021-08-21 02:24] LABS: BLOOD UREA NITROGEN 3 MG/DL (7-18); CALCIUM LEVEL 8.1 MG/DL (8.5-10.1); CARBON DIOXIDE LEVEL 26 MEQ/L (21-32); CHLORIDE LEVEL 111 MEQ/L (98-107); GLOMERULAR FILTRATION RATE > 60.0 (>58); GLUCOSE, FASTING 80 MG/DL (70-100); POTASSIUM SERUM 4.3 MEQ/L (3.5-5.1); SODIUM LEVEL 143 MEQ/L (136-145)
[2021-08-21 02:28] LABS: ALBUMIN 1.6 GM/DL (3.2-5.2); ALT/SGPT 20 U/L (12-78); BILIRUBIN,TOTAL 0.4 MG/DL (0.2-1.0); BLOOD UREA NITROGEN 3 MG/DL (7-18); CALCIUM LEVEL 8.2 MG/DL (8.5-10.1); CARBON DIOXIDE LEVEL 26 MEQ/L (21-32); CHLORIDE LEVEL 110 MEQ/L (98-107); CREATININE FOR GFR 0.86 MG/DL (0.55-1.30); GLOMERULAR FILTRATION RATE > 60.0 (>58); GLUCOSE, FASTING 80 MG/DL (70-100); MAGNESIUM LEVEL 1.8 MG/DL (1.8-2.4); POTASSIUM SERUM 4.2 MEQ/L (3.5-5.1); SODIUM LEVEL 142 MEQ/L (136-145); TOTAL PROTEIN 4.5 GM/DL (6.4-8.2)
[2021-08-21] MEDS ORDERED: LACTULOSE 20 GM/30 ML SYRUP UD PO SCH (03:10)
[2021-08-21 03:11] LABS: ABG BASE EXCESS -0.1 (-2.0-2.0); ABG HCO3 23.1 MEQ/L (22.0-26.0); ABG O2 SATURATION 98.8 % (95.0-99.0); ABG PARTIAL PRESSURE CO2 32.8 mmHg (35.0-45.0); ABG PARTIAL PRESSURE O2 193.4 mmHg (75.0-100.0); ABG STANDARD HCO3 24.4 MEQ/L (22.0-26.0); ABG TOTAL CO2 24.1 MEQ/L (22.0-29.0); ABG pH (ARTERIAL) 7.466 UNITS (7.350-7.450)
[2021-08-21] MEDS ORDERED: AZTREONAM 2 GM in D5W MINI-BAG PLUS 100 ML IV SCH (04:00)
[2021-08-21] MEDS: LEVOTHYROXINE 25MCG TABLET (0.025MG) PO SCH (05:22)
[2021-08-21] MEDS: SODIUM CHLORIDE 0.9% INJ 10 ML SYR IV SCH ×2 (05:22→16:38)
[2021-08-21 06:00] VITALS: BP 123/81
[2021-08-21] MEDS: SUCRALFATE 1 GM TAB PO SCH ×4 (07:30→21:19)
[2021-08-21] MEDS ORDERED: LORazepam 2 MG/ML VIAL As Ordered ONE (07:35)
[2021-08-21] MEDS: LORazepam 2 MG/ML VIAL IV PRN ×3 (08:21→21:20)
[2021-08-21] MEDS: SODIUM CHLORIDE 0.9% INJ 10 ML SYR IV PRN (08:22)
[2021-08-21] MEDS: POTASSIUM CHLORIDE 10MEQ SR TABLET PO SCH ×3 (09:00→21:19)
[2021-08-21] MEDS: GABAPENTIN 100 MG CAP PO SCH ×3 (09:00→21:19)
[2021-08-21 10:00] LABS: VITAMIN B12 LEVEL 774 PG/ML (247-911)
[2021-08-21] MEDS: PIPERACILLIN/TAZOBACTAM SOD 3.375 GM in D5W MINI-BAG PLUS 50 ML IV SCH ×3 (10:20→21:18)
[2021-08-21] MEDS: MAGNESIUM OXIDE 400MG TAB (MAG-OX) PO SCH ×2 (10:21→21:19)
[2021-08-21] MEDS: PANTOPRAZOLE 40MG TAB (PROTONIX) PO SCH (10:21)
[2021-08-21] MEDS: LACTOBACILLUS ACIDOPHILUS CAP (BACID) PO SCH (10:21)
[2021-08-21] MEDS: HYDROXYCHLOROQUINE 200 MG TAB PO SCH ×2 (10:23→21:18)
[2021-08-21] MEDS: ASPIRIN 81MG ENTERIC TABLET PO SCH (10:23)
[2021-08-21] MEDS: TAMSULOSIN 0.4 MG CAP PO SCH (10:23)
[2021-08-21] MEDS: DIVALPROEX 250 MG TAB PO SCH ×2 (10:24→21:19)
[2021-08-21] MEDS: THIAMINE 100 MG TAB PO SCH (10:24)
--- NOTE | 2021-08-21 11:36 | IPNPDOC ---
Text Note Date of Service The patient was seen on 08/21/21. NOTE Subjective: Patient is a 41 year old female with a PMHx of extensive Psych history, Migraines, Sjgren's, SLE, RA, HTN, Asthma, Fatty liver disease who p resented to the emergency room after they were found on the floor. Patient was admitted to the hospital service for further evaluation, treatment of her confusion suspected to be secondary to medications. Patient was seen and examined at the bedside. This morning patient was agitated and combative. Overnight she was found to have a urinary tract infection and was started on broad-spectrum antibiotics with aztreonam given her extensive allergy profile. This morning on evaluation. Patient continued to experience agitation and combative behavior. She was given Ativan for anxiety/agitation. Her antibiotics were adjusted to Zosyn. Patient did not experience any nausea, vomiting, chest pain, short of breath was moving all 4 extremities. Later that morning patient was more cooperative and was ambulating was able to take a shower. Objective: Vitals (See below) General: Patient lying in bed, appears to be comfortable, was combative initially, awake / alert HEENT: NC, AT CVS: +S1S2 Lungs: There appears to be fair air entry bilaterally without any evidence of crackles, wheezing or rhonchi Abdomen: Abdomen remains soft without any distention or tenderness Extremities: Lower extremities are without any edema Imaging: CT Cervical spine 07/30: 1. Patchy peripheral ground-glass infiltrate is seen in the upper lung rios of concern for possible COVID-19 pneumonia. 2. No evidence of an acute cervical spine abnormality. CXR 07/30: No acute pulmonary disease. CT head 07/30: 1. There is divergent gaze. 2. No acute intracranial process is identified. CT abdomen / pelvis 07/31: 1. Region of low attenuation in the right main pulmonary artery and right lower lobar pulmonary artery (image 1 of the axial series 201), which is suspicious for a pulmonary embolism. A CTA chest with intravenous contrast is suggested for further evaluation. 2. Commonly reported imaging features of COVID-19 pneumonia are present. Other processes such as influenza pneumonia and organizing pneumonia, as can be seen with drug toxicity and connective tissue disease, can cause a similar imaging pattern. (Reference: Lexa) 3. Enlarged, fatty liver. 4. Healing fractures of the right anterior 6th and 7th ribs and right posterior 10th and 11th ribs, which can also be seen in the CT abdomen and pelvis on 07/18/2021. US guided needle placement (PICC line) 07/31: PICC line insertion right brachial vein with the tip ending in the SVC. Vascular US 07/31: No deep vein thrombosis in the veins imaged in both lower extremities. CT angio chest 08/02 1. No evidence for pulmonary embolus. 2. Patchy opacities with minimal basilar atelectasis. Differential diagnosis includes multifocal infectious/inflammatory process including possible COVID-19 pulmonary disease. 3. Marked hepatosteatosis and mild to moderate diffuse subcutaneous edema to the surrounding visualized subcutaneous tissues. Renal US 08/04: 1. No hydronephrosis in either kidney. See above Assessment and plan: Acute metabolic encephalopathy - likely 2/2 UTI - s/p Acute toxic encephalopathy - likely 2/2 polypharmacy initially, - This point patient was agitated and combative was awake, alert but not oriented to person, place or time - Physicals without any deficit - UA was grossly abnormal - Imaging noted above - s/p Opiates / Zolpidem - c/w Ativan PRN - See antibiotics below UTI - UA was grossly abnormal - Urine culture 08/21: Pending - Blood cultures 08/21: Pending - s/p Aztreonam - c/w Zosyn (Day #1) s/p Hypoglycemia - Encourage increased oral intake / small frequent meals Possible interstitial pneumonia - Asymptomatic - Continues to be saturating well on room air - PCT of 2.05 - Respiratory panel 07/30: Negative - Blood cultures 08/02: No growth at 5 days - s/p Doxycycline Elevated troponin - likely 2/2 demand ischemia, unlikely 2/2 NSTEMI - Remains asymptomatic without any chest pain, palpitations or shortness of breath - Troponin trend improved - EKG reviewed - c/w ASA 81; Will consider Atorvastatin on discharge s/p PARAS - Creatinine has normalized - Imaging noted above s/p Rhabdomyolysis s/p Transaminitis / Hyperbilirubinemia - likely 2/2 medications - s/p Methotrexate (re: hepatotoxic) s/p Thrombocytopenia - No evidence of bleeding - Will continue to follow counts Anemia - Hg remains stable - s/p 2 units PRC - Will continue to follow trend s/p Hypomagnesemia Migraines - c/w sumatriptan RA - c/w Hydroxychloroquine; Will hold Methotrexate - Will have outpatient follow-up with rheumatology for resumption of methotre xate therapy Chronic Asthma - No evidence of exacerbation - c/w Inhaled therapy as ordered Anxiety / Depression / Hx SI / Bipolar / Bulimia - c/w Duloxetine, Gabapentin GI prophylaxis - c/w Pantoprazole, sucralfate DVT prophylaxis - c/w TEDs/Sequentials Disposition: - Awaiting for UA / adjustment of antibiotics - Looking into rehab VS,Lupe, I+O VS, Lupe I+O Laboratory Tests 08/21/21 01:05 08/21/21 01:06 Vital Signs Date Time Temp Pulse Resp B/P (MAP) Pulse Ox O2 Delivery O2 Flow Rate FiO2 08/21/21 06:00 97.6 102 19 123/81 (95) 100 Room Air I&O- Last 24 Hours up to 6 AM 08/21/21 05:59 Intake Total 240 ml Balance 240 ml HAO OLSON MD Aug 21, 2021 11:36
[2021-08-21] MEDS: DULoxetine 30MG CAPSULE (CYMBALTA) PO SCH (21:18)
[2021-08-21] MEDS: MONTELUKAST 10 MG TAB PO SCH (21:19)
[2021-08-22] MEDS: PIPERACILLIN/TAZOBACTAM SOD 3.375 GM in D5W MINI-BAG PLUS 50 ML IV SCH ×4 (02:43→20:53)
[2021-08-22] MEDS: SODIUM CHLORIDE 0.9% INJ 10 ML SYR IV SCH ×2 (02:44→17:12)
[2021-08-22] MEDS: LEVOTHYROXINE 25MCG TABLET (0.025MG) PO SCH (05:53)
[2021-08-22] MEDS: LORazepam 2 MG/ML VIAL IV PRN (05:53)
[2021-08-22] MEDS: SODIUM CHLORIDE 0.9% INJ 10 ML SYR IV PRN (05:54)
[2021-08-22 06:00] VITALS: BP 125/81
[2021-08-22] MEDS: DEXTROSE 50% 50 ML SYRINGE IV PRN ×2 (07:03→13:12)
[2021-08-22] MEDS: SUCRALFATE 1 GM TAB PO SCH ×4 (09:00→21:00)
[2021-08-22] MEDS: MAGNESIUM OXIDE 400MG TAB (MAG-OX) PO SCH ×2 (09:00→21:03)
[2021-08-22] MEDS: THIAMINE 100 MG TAB PO SCH (09:00)
[2021-08-22] MEDS: ASPIRIN 81MG ENTERIC TABLET PO SCH (09:44)
[2021-08-22] MEDS: PANTOPRAZOLE 40MG TAB (PROTONIX) PO SCH (09:44)
[2021-08-22] MEDS: DIVALPROEX 250 MG TAB PO SCH ×2 (09:44→21:01)
[2021-08-22] MEDS: HYDROXYCHLOROQUINE 200 MG TAB PO SCH ×2 (09:45→21:02)
[2021-08-22] MEDS: GABAPENTIN 100 MG CAP PO SCH (09:46)
[2021-08-22] MEDS: POTASSIUM CHLORIDE 10MEQ SR TABLET PO SCH ×2 (09:47→21:02)
[2021-08-22] MEDS: TAMSULOSIN 0.4 MG CAP PO SCH (09:48)
[2021-08-22] MEDS: LACTOBACILLUS ACIDOPHILUS CAP (BACID) PO SCH (09:48)
--- NOTE | 2021-08-22 10:29 | REP ---
INDICATION: Confusion COMPARISON: 07/30/2021 TECHNIQUE: Axial noncontrast images from the skull base to the vertex with coronal reformations. This CT examination was performed using the following dose reduction techniques: Automated exposure control, adjustment of mA and/or kv according to the patient's size, and use of iterative reconstruction technique. FINDINGS: The ventricles, sulci, and cisterns are normal in position and appearance. Gong-white differentiation is maintained. No acute intracranial hemorrhage, mass/mass effect, pathology or trauma/injury. No evidence for acute infarction. No extra-axial fluid collection. Calvarium is intact. Paranasal sinuses and mastoid air cells are clear. IMPRESSION: Normal noncontrast head CT. No evidence for acute intracranial pathology or trauma/injury. <Electronically signed by Jony Ley > 08/22/21 0683
[2021-08-22 11:25] LABS: BASO # 0.1 10^3/uL (0.0-0.2); BASO % 2.3 % (0.0-1.0); HEMATOCRIT 29.1 % (36.0-47.0); HEMOGLOBIN 9.6 g/dl (12.0-15.5); LYMPH # 1.8 10^3/uL (1.5-5.0); LYMPH % 45.5 % (24.0-44.0); MEAN CORPUSCULAR HEMOGLOBIN 30.5 pg (27.0-33.0); MEAN CORPUSCULAR VOLUME 92.4 fl (80.0-96.0); MONO # 0.5 10^3/uL (0.0-0.8); MONO % 13.3 % (2.0-8.0); NEUTROPHILS # 1.5 10^3/uL (1.5-8.5); NEUTROPHILS % 38.4 % (36.0-66.0); PLATELET COUNT, AUTOMATED 181 10^3/uL (150-450); RED BLOOD COUNT 3.15 10^6/uL (4.00-5.40); WHITE BLOOD COUNT 3.9 10^3/uL (4.0-10.0)
[2021-08-22] MEDS ORDERED: NS 500 ML IV ONE (11:45)
[2021-08-22] MEDS ORDERED: NS 1,000 ML IV SCH (11:45)
[2021-08-22 12:02] LABS: ERYTHROCYTE SEDIMENTATION RATE 7 mm/hr (0-20)
--- NOTE | 2021-08-22 12:03 | IPNPDOC ---
Text Note Date of Service The patient was seen on 08/22/21. NOTE Subjective: Patient is a 41 year old female with a PMHx of extensive Psych history, Migraines, Sjgren's, SLE, RA, HTN, Asthma, Fatty liver disease who p resented to the emergency room after they were found on the floor. Patient was admitted to the hospital service for further evaluation, treatment of her confusion suspected to be secondary to medications. Patient was seen and examined at the bedside. Patient is oriented to person alone wasn't able to answer very many questions. Overnight she did have additional episodes of agitation and combative behavior. Patient was only able to answer "no" to any pain Objective: Vitals (See below) General: Patient is lying in bed, does not appear to be in any acute distress. She is awake, alert. She did report her name HEENT: NC, AT CVS: +S1S2 Lungs: Auscultation of her lungs did not reveal any evidence of crackles, wheezing or rhonchi Abdomen: Abdomen remains soft without any appreciated distention or tenderness Extremities: No edema Imaging: CT Cervical spine 07/30: 1. Patchy peripheral ground-glass infiltrate is seen in the upper lung rios of concern for possible COVID-19 pneumonia. 2. No evidence of an acute cervical spine abnormality. CXR 07/30: No acute pulmonary disease. CT head 07/30: 1. There is divergent gaze. 2. No acute intracranial process is identified. CT abdomen / pelvis 07/31: 1. Region of low attenuation in the right main pulmonary artery and right lower lobar pulmonary artery (image 1 of the axial series 201), which is suspicious for a pulmonary embolism. A CTA chest with intravenous contrast is suggested for further evaluation. 2. Commonly reported imaging features of COVID-19 pneumonia are present. Other processes such as influenza pneumonia and organizing pneumonia, as can be seen with drug toxicity and connective tissue disease, can cause a similar imaging pattern. (Reference: Lexa) 3. Enlarged, fatty liver. 4. Healing fractures of the right anterior 6th and 7th ribs and right posterior 10th and 11th ribs, which can also be seen in the CT abdomen and pelvis on 07/18/2021. US guided needle placement (PICC line) 07/31: PICC line insertion right brachial vein with the tip ending in the SVC. Vascular US 07/31: No deep vein thrombosis in the veins imaged in both lower extremities. CT angio chest 08/02 1. No evidence for pulmonary embolus. 2. Patchy opacities with minimal basilar atelectasis. Differential diagnosis includes multifocal infectious/inflammatory process including possible COVID-19 pulmonary disease. 3. Marked hepatosteatosis and mild to moderate diffuse subcutaneous edema to the surrounding visualized subcutaneous tissues. Renal US 08/04: 1. No hydronephrosis in either kidney. See above CT head 08/22: Normal noncontrast head CT. No evidence for acute intracranial pathology or trauma/injury. Assessment and plan: Acute metabolic encephalopathy - likely 2/2 UTI - Patient has been afebrile and hemodynamically stable - Patient is only oriented to person physical does not reveal any focal deficits - Lab work does not reveal any evidence of leukocytosis - Blood cultures 08/21: No growth at 24 hours - Patient did have mild lactic acidosis. This morning - UA was grossly abnormal. However, urine culture was reported as contaminated - Will repeat UA and urine culture with straight cath - CT imaging this morning with any abnormalities - c/w Zosyn (Day #2); s/p Aztreonam x 1 dose Lactic acidosis - Will start IV fluid hydration s/p Acute toxic encephalopathy - likely 2/2 polypharmacy initially, - s/p Opiates / Zolpidem - c/w Ativan PRN s/p Hypoglycemia - Encourage increased oral intake / small frequent meals s/p Possible interstitial pneumonia - Saturating well on room air - PCT of 2.05 - Respiratory panel 07/30: Negative - Blood cultures 08/02: No growth at 5 days - s/p Doxycycline Elevated troponin - likely 2/2 demand ischemia, unlikely 2/2 NSTEMI - No complaints of pain this morning - Troponin trend improved - EKG reviewed - c/w ASA 81; Will consider Atorvastatin on discharge s/p PARAS - Creatinine has normalized - Imaging noted above s/p Rhabdomyolysis s/p Transaminitis / Hyperbilirubinemia - likely 2/2 medications - s/p Methotrexate (re: hepatotoxic) s/p Thrombocytopenia - No evidence of bleeding - Will continue to follow counts Anemia - Hg remains stable - s/p 2 units PRBC - Will continue to follow trend s/p Hypomagnesemia Migraines - c/w sumatriptan RA - c/w Hydroxychloroquine; Will hold Methotrexate - Will have outpatient follow-up with rheumatology for resumption of met hotrexate therapy Chronic Asthma - No evidence of exacerbation - c/w Inhaled therapy as ordered Anxiety / Depression / Hx SI / Bipolar / Bulimia - c/w Duloxetine - Will hold Gabapentin (re: Confusion) GI prophylaxis - c/w Pantoprazole / Sucralfate DVT prophylaxis - c/w TEDs/Sequentials Disposition: - Awaiting clinical improvement VS,Lupe, I+O VS, Lupe, I+O Laboratory Tests 08/22/21 10:49 Vital Signs Date Time Temp Pulse Resp B/P (MAP) Pulse Ox O2 Delivery O2 Flow Rate FiO2 08/22/21 06:00 97.1 106 19 125/81 (96) 100 Room Air I&O- Last 24 Hours up to 6 AM 08/22/21 06:00 Intake Total 380 ml Output Total 1000 ml Balance -620 ml HAO OLSON MD Aug 22, 2021 12:03
[2021-08-22 12:30] LABS: BLOOD UREA NITROGEN 5 MG/DL (7-18); CALCIUM LEVEL 7.8 MG/DL (8.5-10.1); CARBON DIOXIDE LEVEL 25 MEQ/L (21-32); CHLORIDE LEVEL 106 MEQ/L (98-107); CK-MB VALUE MASS 3.5 NG/ML (<3.6); CPK CREATINE PHOSPHOKINASE 47 U/L (26-192); CREATININE FOR GFR 0.69 MG/DL (0.55-1.30); GLOMERULAR FILTRATION RATE > 60.0 (>58); GLUCOSE, FASTING 147 MG/DL (70-100); MAGNESIUM LEVEL 1.7 MG/DL (1.8-2.4); MB/CK RELATIVE INDEX 7.45 (< OR =4); POTASSIUM SERUM 3.5 MEQ/L (3.5-5.1); SODIUM LEVEL 141 MEQ/L (136-145); TROPONIN I < 0.02 NG/ML (< 0.10)
[2021-08-22] MEDS ORDERED: MAG SULF 1GM/100ML (MAG RUN) 1 GM in IV 1 EA IV ONE (13:05)
[2021-08-22 14:00] VITALS: BP 118/76
[2021-08-22 14:21] LABS: ALBUMIN 1.7 GM/DL (3.2-5.2); ALT/SGPT 19 U/L (12-78); BILIRUBIN,DIRECT 0.2 MG/DL (0.0-0.2); BILIRUBIN,TOTAL 0.4 MG/DL (0.2-1.0); TOTAL PROTEIN 4.6 GM/DL (6.4-8.2)
[2021-08-22] MEDS ORDERED: NS 1,000 ML IV ONE (16:10)
--- NOTE | 2021-08-22 16:40 | REP ---
INDICATION: Confusion COMPARISON: 07/30/2021 TECHNIQUE: Portable AP view of the chest FINDINGS: The mediastinum and cardiac silhouette are stable and within normal limits for portable technique. The lung rios are clear without acute consolidation, effusion, or pneumothorax. Skeletal structures are intact. PICC line via the right upper extremity into the superior vena cava. IMPRESSION: No acute cardiopulmonary process appreciated. <Electronically signed by Jony Ley > 08/22/21 0482
[2021-08-22] MEDS: DOXYCYCLINE HYCLATE 100 MG in D5W MINI-BAG PLUS 100 ML IV SCH (18:46)
[2021-08-22] MEDS: D5W/0.9% SODIUM CHLORIDE 1,000 ML IV SCH (20:53)
[2021-08-22] MEDS: MONTELUKAST 10 MG TAB PO SCH (21:00)
[2021-08-22 22:00] VITALS: BP 134/83
--- NOTE | 2021-08-22 22:40 | IPNPDOC ---
Text Note Date of Service The patient was seen on 08/22/21. NOTE Patient seen at bedside due to reported lethargy. This is a change from brendan ent's otherwise interactive/fidgety behavior when Night staff had seen pt last; pt reported lethargic on dayshift and did have CT head done- nonacute. Patient vital signs 123/82, heart rate 93, SPO2 100% on room air, respiratory rate 16, temp 98.2. Patient appears comfortable sleeping she is pale and frail and somewhat jaundiced appearance. Patient arouses to sternal rub to open her eyes she localizes pain and withdraws from it at one point when the nurse was sternally rubbing her the patient with aggravated tone said "stop". Patient is able to purposefully move her extremities however she is lethargic and quickly falls asleep after opening eyes to sternal rub. She is receiving dextrose IV fluids at 100 her blood glucose is 80. She has had poor p.o. intake today. She was able to get up and void today. Last BM less than 2 days ago abdominal exam benign. Her ammonia was elevated yesterday 35 but repeat today 22. Her lactic had been elevated earlier today but decreased to less than 2 this evening. Patient does have seizure precautions and history of pseudoseizures as well as psych history. No reported seizure activity today. She was given Ativan 1 mg at 7:30 AM. Other sedated medications have been put on hold. Patient has not had any visitors per pandemic policy and no access to any belongings in room for concern of self-medication. Patient RRR, diminished bases. She is on antibiotics to cover for UTI and pneumonia, cxr interval today showed clear. BC had been sent and NGTD. She does have notable excoriation vs rash to her vaginal area and probiotics have been ordered. ? Consider viral coverage with acyclovir, however lower suspicion given the appearance of skin. Reassuringly with her lethargy, pt does have strength during this part of exam to open her eyes and to turn herself to prevent chaparoned exam; she allows for inspection as she quickly falls asleep again- but then she did have purposeful movement to cover herself with a blanket afterwards. It is possible since patient has been somewhat manic and hyperactive the past few days perhaps she is very fatigued and getting rest but given her psychiatric history and questionable lability of mental status this admission will defer further imaging such as MRI to attending. pt will be placed on aspiration precautions- staff made aware pending pt alertness level for any PO medications tonight. WCTM; pt is hemodynamically stable presently. VS,Fishbone, I+O VS, Fishbone, I+O Laboratory Tests 08/22/21 10:49 Vital Signs Date Time Temp Pulse Resp B/P (MAP) Pulse Ox O2 Delivery O2 Flow Rate FiO2 08/22/21 14:00 107 18 118/76 (90) 95 08/22/21 06:00 97.1 Room Air I&O- Last 24 Hours up to 6 AM 08/22/21 06:00 Intake Total 380 ml Output Total 1000 ml Balance -620 ml ABHIJEET MCDANIEL NP Aug 22, 2021 22:40
[2021-08-22 22:45] LABS: ABG BASE EXCESS -3.8 (-2.0-2.0); ABG HCO3 20.5 MEQ/L (22.0-26.0); ABG O2 SATURATION 96.1 % (95.0-99.0); ABG PARTIAL PRESSURE CO2 34.6 mmHg (35.0-45.0); ABG PARTIAL PRESSURE O2 87.5 mmHg (75.0-100.0); ABG STANDARD HCO3 21.3 MEQ/L (22.0-26.0); ABG TOTAL CO2 21.6 MEQ/L (22.0-29.0); ABG pH (ARTERIAL) 7.391 UNITS (7.350-7.450)
[2021-08-23] MEDS: PIPERACILLIN/TAZOBACTAM SOD 3.375 GM in D5W MINI-BAG PLUS 50 ML IV SCH ×3 (03:25→14:46)
[2021-08-23] MEDS: DOXYCYCLINE HYCLATE 100 MG in D5W MINI-BAG PLUS 100 ML IV SCH (05:41)
[2021-08-23] MEDS: LEVOTHYROXINE 25MCG TABLET (0.025MG) PO SCH (05:41)
[2021-08-23] MEDS: SODIUM CHLORIDE 0.9% INJ 10 ML SYR IV SCH ×2 (05:42→17:44)
[2021-08-23 06:00] VITALS: BP 125/91
[2021-08-23 06:07] LABS: BASO # 0.1 10^3/uL (0.0-0.2); BASO % 2.6 % (0.0-1.0); HEMATOCRIT 30.1 % (36.0-47.0); HEMOGLOBIN 9.8 g/dl (12.0-15.5); LYMPH # 2.1 10^3/uL (1.5-5.0); LYMPH % 55.6 % (24.0-44.0); MEAN CORPUSCULAR HEMOGLOBIN 30.3 pg (27.0-33.0); MEAN CORPUSCULAR HGB CONC 32.6 g/dl (32.0-36.5); MEAN CORPUSCULAR VOLUME 93.2 fl (80.0-96.0); MONO # 0.4 10^3/uL (0.0-0.8); MONO % 10.8 % (2.0-8.0); NEUTROPHILS # 1.2 10^3/uL (1.5-8.5); NEUTROPHILS % 30.7 % (36.0-66.0); PLATELET COUNT, AUTOMATED 188 10^3/uL (150-450); RED BLOOD COUNT 3.23 10^6/uL (4.00-5.40); WHITE BLOOD COUNT 3.8 10^3/uL (4.0-10.0)
[2021-08-23 06:30] LABS: BLOOD UREA NITROGEN 4 MG/DL (7-18); CALCIUM LEVEL 7.6 MG/DL (8.5-10.1); CARBON DIOXIDE LEVEL 25 MEQ/L (21-32); CHLORIDE LEVEL 111 MEQ/L (98-107); CREATININE FOR GFR 0.65 MG/DL (0.55-1.30); GLOMERULAR FILTRATION RATE > 60.0 (>58); GLUCOSE, FASTING 72 MG/DL (70-100); MAGNESIUM LEVEL 2.1 MG/DL (1.8-2.4); POTASSIUM SERUM 4.1 MEQ/L (3.5-5.1); SODIUM LEVEL 142 MEQ/L (136-145)
[2021-08-23] MEDS: D5W/0.9% SODIUM CHLORIDE 1,000 ML IV SCH (08:51)
[2021-08-23] MEDS: DIVALPROEX 250 MG TAB PO SCH ×2 (08:52→21:18)
[2021-08-23] MEDS: HYDROXYCHLOROQUINE 200 MG TAB PO SCH ×2 (08:52→21:17)
[2021-08-23] MEDS: PANTOPRAZOLE 40MG TAB (PROTONIX) PO SCH (08:52)
[2021-08-23] MEDS: TAMSULOSIN 0.4 MG CAP PO SCH (08:52)
[2021-08-23] MEDS: LACTOBACILLUS ACIDOPHILUS CAP (BACID) PO SCH (08:52)
[2021-08-23] MEDS: ASPIRIN 81MG ENTERIC TABLET PO SCH (08:52)
[2021-08-23] MEDS: THIAMINE 100 MG TAB PO SCH (08:53)
[2021-08-23] MEDS: POTASSIUM CHLORIDE 10MEQ SR TABLET PO SCH ×2 (08:53→21:18)
[2021-08-23] MEDS: SUCRALFATE 1 GM TAB PO SCH ×4 (08:53→21:17)
[2021-08-23] MEDS: MAGNESIUM OXIDE 400MG TAB (MAG-OX) PO SCH ×2 (08:53→21:17)
[2021-08-23 08:56] LABS: ERYTHROCYTE SEDIMENTATION RATE 6 mm/hr (0-20)
--- NOTE | 2021-08-23 11:38 | IPNPDOC ---
Text Note Date of Service The patient was seen on 08/23/21. NOTE Subjective: Patient is a 41 year old female with a PMHx of extensive Psych history, Migraines, Sjgren's, SLE, RA, HTN, Asthma, Fatty liver disease who p resented to the emergency room after they were found on the floor. Patient was admitted to the hospital service for further evaluation, treatment of her confusion suspected to be secondary to medications. Patient was seen and examined at the bedside. This morning patient was able to wake up respond to name and painful stimuli. Patient appears to be moving all 4 extremities. Unable to answer any specific questions. Objective: Vitals (See below) General: Patient is lying in bed, appears drowsy but responds to name and painful stimuli HEENT: Atraumatic and normocephalic CVS: +S1S2 Lungs: Again, auscultation, there does not appear to be any crackles, wheezing or rhonchi Abdomen: No distention or tenderness. Soft Extremities: Lower extremities are without edema Skin: Patient's sacral area appears to have a stage I decubitus ulcer with extension into the perineum Imaging: CT Cervical spine 07/30: 1. Patchy peripheral ground-glass infiltrate is seen in the upper lung rios of concern for possible COVID-19 pneumonia. 2. No evidence of an acute cervical spine abnormality. CXR 07/30: No acute pulmonary disease. CT head 07/30: 1. There is divergent gaze. 2. No acute intracranial process is identified. CT abdomen / pelvis 07/31: 1. Region of low attenuation in the right main pulmonary artery and right lower lobar pulmonary artery (image 1 of the axial series 201), which is suspicious for a pulmonary embolism. A CTA chest with intravenous contrast is suggested for further evaluation. 2. Commonly reported imaging features of COVID-19 pneumonia are present. Other processes such as influenza pneumonia and organizing pneumonia, as can be seen with drug toxicity and connective tissue disease, can cause a similar imaging pattern. (Reference: Lexa) 3. Enlarged, fatty liver. 4. Healing fractures of the right anterior 6th and 7th ribs and right posterior 10th and 11th ribs, which can also be seen in the CT abdomen and pelvis on 07/18. US guided needle placement (PICC line) 07/31: PICC line insertion right brachial vein with the tip ending in the SVC. Vascular US 07/31: No deep vein thrombosis in the veins imaged in both lower extremities. CT angio chest 08/02 1. No evidence for pulmonary embolus. 2. Patchy opacities with minimal basilar atelectasis. Differential diagnosis includes multifocal infectious/inflammatory process including possible COVID-19 pulmonary disease. 3. Marked hepatosteatosis and mild to moderate diffuse subcutaneous edema to the surrounding visualized subcutaneous tissues. Renal US 08/04: 1. No hydronephrosis in either kidney. See above CT head 08/22: Normal noncontrast head CT. No evidence for acute intracranial pathology or trauma/injury. Assessment and plan: Acute metabolic encephalopathy - likely 2/2 UTI - Patient has remained hemodynamically stable and afebrile - Physical does not reveal any focal deficits. However, she is only oriented to person - Again there is no leukocytosis; s/p Lactic acidosis - Blood cultures 08/21: No growth at 48 hours - Repeat UA 08/22 has been unremarkable and repeat urine culture has been negat ibrahima (however, this been collected on antibiotics) - Imaging negative - Will get MRI brain with and without contrast - c/w Zosyn (Day #3) and Doxycycline (Day #2); s/p Aztreonam x 1 dose s/p Lactic acidosis - s/p IV fluid hydration s/p Acute toxic encephalopathy - likely 2/2 polypharmacy initially, - s/p Opiates / Zolpidem - c/w Ativan PRN s/p Hypoglycemia - c/w Dextrose based fluids for now s/p Possible interstitial pneumonia - Saturating well on room air - PCT of 2.05 - Respiratory panel 07/30: Negative - Blood cultures 08/02: No growth at 5 days Elevated troponin - likely 2/2 demand ischemia, unlikely 2/2 NSTEMI - No complaints of pain this morning - Troponin trend improved - EKG reviewed - c/w ASA 81; Will consider Atorvastatin on discharge s/p PARAS - Creatinine has normalized - Imaging noted above s/p Rhabdomyolysis s/p Transaminitis / Hyperbilirubinemia - likely 2/2 medications - s/p Methotrexate (re: hepatotoxic) s/p Thrombocytopenia - No evidence of bleeding - Will continue to follow counts Anemia - Hg remains stable - s/p 2 units PRBC - Will continue to follow trend s/p Hypomagnesemia Migraines - c/w sumatriptan RA - c/w Hydroxychloroquine; Will hold Methotrexate - Will have outpatient follow-up with rheumatology for resumption of methotrexate therapy Chronic Asthma - No evidence of exacerbation - c/w Inhaled therapy as ordered Anxiety / Depression / Hx SI / Bipolar / Bulimia - Will hold Duloxetine and Gabapentin (re: Confusion) GI prophylaxis - c/w Pantoprazole / Sucralfate DVT prophylaxis - c/w TEDs/Sequentials Disposition: - Awaiting clinical improvement VSLupe, I+O VSLupe I+O Laboratory Tests 08/23/21 05:30 Vital Signs Date Time Temp Pulse Resp B/P (MAP) Pulse Ox O2 Delivery O2 Flow Rate FiO2 08/23/21 06:00 98.5 89 19 125/91 (102) 99 Room Air I&O- Last 24 Hours up to 6 AM 08/23/21 06:00 Intake Total 410 ml Output Total 500 ml Balance -90 ml HAO OLSON MD Aug 23, 2021 11:37
[2021-08-23 12:16] LABS: C REACTIVE PROTEIN QUANTITATIV < 0.30 MG/DL (0.00-0.30); COMPLEMENT C3 48 MG/DL (90-180); COMPLEMENT C4 16 MG/DL (10-40); CORTISOL BASELINE 9.8 UG/DL (4.3-22.4)
[2021-08-23] MEDS ORDERED: PROHANCE 279.3MG/ML 15ML VIAL As Ordered ONE (12:27)
[2021-08-23 13:30] LABS: FREE T4 1.15 NG/DL (0.76-1.46)
[2021-08-23 14:00] VITALS: BP 104/74
--- NOTE | 2021-08-23 15:00 | REPVR ---
PROCEDURE INFORMATION: Exam: MR Head Without and With Contrast Exam date and time: 08/23/2021 1:23 PM Age: 41 years old Clinical indication: Altered mental status/memory loss; Additional info: Confusion TECHNIQUE: Imaging protocol: MR of the head without and with intravenous contrast. Contrast material: PROHANCE; Contrast volume: 15 ml; Contrast route: INTRAVENOUS (IV); COMPARISON: CT Head without contrast 08/22/2021 10:25 AM FINDINGS: Brain: No acute infarct identified on the diffusion-weighted imaging. The degree of generalized cerebral and cerebellar volume loss is advanced for age. No evidence of brain parenchymal edema or intracranial mass effect. No significant white matter disease. No parenchymal hemorrhage. No enhancing intracranial pathology. Cerebral ventricles: The ventricles are mildly enlarged in keeping with volume loss. Bones/joints: Unremarkable. Paranasal sinuses: Normal as visualized. No acute sinusitis. Mastoid air cells: Patchy nonspecific right mastoid effusion is again demonstrated. Orbital cavity: Unremarkable. Soft tissues: Unremarkable. IMPRESSION: Images are motion degraded. No acute intracranial abnormality seen. Electronically signed by: Ivone Noland On 08/23/2021 14:59:49 PM
[2021-08-23] MEDS: DOXYCYCLINE HYCLATE 100MG TABLET PO SCH (17:43)
[2021-08-23] MEDS: LORazepam 2 MG/ML VIAL IM PRN (18:33)
[2021-08-23] MEDS: MONTELUKAST 10 MG TAB PO SCH (21:17)
[2021-08-23] MEDS: AUGMENTIN 875 MG TAB PO SCH (21:18)
[2021-08-24] MEDS: LEVOTHYROXINE 25MCG TABLET (0.025MG) PO SCH (05:37)
[2021-08-24] MEDS: DOXYCYCLINE HYCLATE 100MG TABLET PO SCH ×2 (05:37→18:08)
[2021-08-24 05:57] VITALS: BP 125/74
[2021-08-24] MEDS: SUCRALFATE 1 GM TAB PO SCH ×4 (07:30→20:39)
[2021-08-24 09:20] LABS: HEMATOCRIT 35.1 % (36.0-47.0); HEMOGLOBIN 11.2 g/dl (12.0-15.5); MEAN CORPUSCULAR HGB CONC 31.9 g/dl (32.0-36.5); MEAN CORPUSCULAR VOLUME 94.1 fl (80.0-96.0); RED BLOOD COUNT 3.73 10^6/uL (4.00-5.40); WHITE BLOOD COUNT 3.4 10^3/uL (4.0-10.0)
[2021-08-24 09:38] LABS: BLOOD UREA NITROGEN 3 MG/DL (7-18); CALCIUM LEVEL 8.4 MG/DL (8.5-10.1); CARBON DIOXIDE LEVEL 22 MEQ/L (21-32); CHLORIDE LEVEL 114 MEQ/L (98-107); CREATININE FOR GFR 0.61 MG/DL (0.55-1.30); GLOMERULAR FILTRATION RATE > 60.0 (>58); GLUCOSE, FASTING 66 MG/DL (70-100); MAGNESIUM LEVEL 1.9 MG/DL (1.8-2.4); POTASSIUM SERUM 4.3 MEQ/L (3.5-5.1); SODIUM LEVEL 141 MEQ/L (136-145)
[2021-08-24 09:53] LABS: BASOPHILS 3 % (0-1); LYMPHOCYTES 67 % (16-44); MONOCYTES 8 % (0-5); NEUTROPHILS 21 % (28-66)
[2021-08-24 09:56] LABS: PLATELET CLUMPS SMALL AMT; PLATELET ESTIMATE DECREASED (NORMAL)
[2021-08-24 09:57] LABS: ANISOCYTOSIS 1+; SMUDGE CELLS 1+
[2021-08-24] MEDS: POTASSIUM CHLORIDE 10MEQ SR TABLET PO SCH ×2 (10:23→20:40)
[2021-08-24] MEDS: DIVALPROEX 250 MG TAB PO SCH ×2 (10:23→20:39)
[2021-08-24] MEDS: AUGMENTIN 875 MG TAB PO SCH ×2 (10:23→20:39)
[2021-08-24] MEDS: THIAMINE 100 MG TAB PO SCH (10:23)
[2021-08-24] MEDS: ASPIRIN 81MG ENTERIC TABLET PO SCH (10:23)
[2021-08-24] MEDS: LACTOBACILLUS ACIDOPHILUS CAP (BACID) PO SCH (10:23)
[2021-08-24] MEDS: MAGNESIUM OXIDE 400MG TAB (MAG-OX) PO SCH ×2 (10:23→20:39)
[2021-08-24] MEDS: TAMSULOSIN 0.4 MG CAP PO SCH (10:23)
[2021-08-24] MEDS: HYDROXYCHLOROQUINE 200 MG TAB PO SCH ×2 (10:23→20:39)
[2021-08-24] MEDS: PANTOPRAZOLE 40MG TAB (PROTONIX) PO SCH (10:24)
[2021-08-24] MEDS: MONTELUKAST 10 MG TAB PO SCH (20:39)
[2021-08-25 06:00] VITALS: BP 133/89
[2021-08-25] MEDS: DOXYCYCLINE HYCLATE 100MG TABLET PO SCH (06:02)
[2021-08-25] MEDS: LEVOTHYROXINE 25MCG TABLET (0.025MG) PO SCH (06:02)
[2021-08-25] MEDS: SUCRALFATE 1 GM TAB PO SCH ×4 (07:30→20:16)
[2021-08-25] MEDS: HYDROXYCHLOROQUINE 200 MG TAB PO SCH ×2 (08:41→20:15)
[2021-08-25] MEDS: ASPIRIN 81MG ENTERIC TABLET PO SCH (08:41)
[2021-08-25] MEDS: MAGNESIUM OXIDE 400MG TAB (MAG-OX) PO SCH ×2 (08:42→20:15)
[2021-08-25] MEDS: THIAMINE 100 MG TAB PO SCH (08:42)
[2021-08-25] MEDS: AUGMENTIN 875 MG TAB PO SCH (08:42)
[2021-08-25] MEDS: PANTOPRAZOLE 40MG TAB (PROTONIX) PO SCH (08:42)
[2021-08-25] MEDS: TAMSULOSIN 0.4 MG CAP PO SCH ×2 (08:42→09:00)
[2021-08-25] MEDS: POTASSIUM CHLORIDE 10MEQ SR TABLET PO SCH ×2 (08:42→20:15)
[2021-08-25] MEDS: DIVALPROEX 250 MG TAB PO SCH ×2 (08:42→20:15)
[2021-08-25] MEDS: LACTOBACILLUS ACIDOPHILUS CAP (BACID) PO SCH (08:42)
[2021-08-25 09:25] LABS: HEMATOCRIT 29.6 % (36.0-47.0); HEMOGLOBIN 9.7 g/dl (12.0-15.5); MEAN CORPUSCULAR HEMOGLOBIN 30.7 pg (27.0-33.0); MEAN CORPUSCULAR HGB CONC 32.8 g/dl (32.0-36.5); MEAN CORPUSCULAR VOLUME 93.7 fl (80.0-96.0); PLATELET COUNT, AUTOMATED 183 10^3/uL (150-450); RED BLOOD COUNT 3.16 10^6/uL (4.00-5.40); WHITE BLOOD COUNT 2.8 10^3/uL (4.0-10.0)
[2021-08-25 09:46] LABS: BLOOD UREA NITROGEN 2 MG/DL (7-18); CALCIUM LEVEL 7.9 MG/DL (8.5-10.1); CARBON DIOXIDE LEVEL 26 MEQ/L (21-32); CHLORIDE LEVEL 112 MEQ/L (98-107); CREATININE FOR GFR 0.68 MG/DL (0.55-1.30); GLOMERULAR FILTRATION RATE > 60.0 (>58); GLUCOSE, FASTING 71 MG/DL (70-100); MAGNESIUM LEVEL 1.5 MG/DL (1.8-2.4); POTASSIUM SERUM 4.2 MEQ/L (3.5-5.1); SODIUM LEVEL 144 MEQ/L (136-145)
[2021-08-25 09:58] LABS: BASOPHILS 5 % (0-1); LYMPHOCYTES 55 % (16-44); MONOCYTES 7 % (0-5); NEUTROPHILS 32 % (28-66)
[2021-08-25 10:01] LABS: ANISOCYTOSIS 1+; PLATELET ESTIMATE NORMAL (NORMAL)
[2021-08-25 10:03] LABS: SCHISTOCYTES 1+; STOMATOCYTES 1+
[2021-08-25] MEDS: FIORICET TAB PO PRN ×2 (12:32→20:17)
[2021-08-25] MEDS: FIBER-CON 625 MG TAB PO SCH ×2 (12:32→20:16)
[2021-08-25] MEDS: MONTELUKAST 10 MG TAB PO SCH (20:15)
[2021-08-25] MEDS ORDERED: MAGNESIUM OXIDE 400MG TAB (MAG-OX) PO SCH (21:00)
[2021-08-26] MEDS: LEVOTHYROXINE 25MCG TABLET (0.025MG) PO SCH (05:15)
[2021-08-26 06:00] VITALS: BP 131/77
[2021-08-26] MEDS: SUCRALFATE 1 GM TAB PO SCH ×4 (07:30→21:00)
[2021-08-26] MEDS: ASPIRIN 81MG ENTERIC TABLET PO SCH (09:30)
[2021-08-26] MEDS: DIVALPROEX 250 MG TAB PO SCH ×2 (09:30→21:04)
[2021-08-26] MEDS: LACTOBACILLUS ACIDOPHILUS CAP (BACID) PO SCH (09:30)
[2021-08-26] MEDS: PANTOPRAZOLE 40MG TAB (PROTONIX) PO SCH (09:31)
[2021-08-26] MEDS: TAMSULOSIN 0.4 MG CAP PO SCH (09:31)
[2021-08-26] MEDS: THIAMINE 100 MG TAB PO SCH (09:31)
[2021-08-26] MEDS: MAGNESIUM OXIDE 400MG TAB (MAG-OX) PO SCH ×2 (09:31→21:00)
[2021-08-26] MEDS: FIBER-CON 625 MG TAB PO SCH ×2 (09:31→21:07)
[2021-08-26] MEDS: HYDROXYCHLOROQUINE 200 MG TAB PO SCH ×2 (09:31→21:04)
[2021-08-26] MEDS: POTASSIUM CHLORIDE 10MEQ SR TABLET PO SCH ×2 (09:31→21:09)
[2021-08-26 09:45] LABS: BASO # 0.1 10^3/uL (0.0-0.2); BASO % 3.4 % (0.0-1.0); HEMATOCRIT 30.2 % (36.0-47.0); HEMOGLOBIN 9.6 g/dl (12.0-15.5); LYMPH # 1.9 10^3/uL (1.5-5.0); LYMPH % 62.3 % (24.0-44.0); MEAN CORPUSCULAR HEMOGLOBIN 29.7 pg (27.0-33.0); MEAN CORPUSCULAR HGB CONC 31.8 g/dl (32.0-36.5); MEAN CORPUSCULAR VOLUME 93.5 fl (80.0-96.0); MONO # 0.4 10^3/uL (0.0-0.8); MONO % 12.1 % (2.0-8.0); NEUTROPHILS % 21.9 % (36.0-66.0); PLATELET COUNT, AUTOMATED 194 10^3/uL (150-450); RED BLOOD COUNT 3.23 10^6/uL (4.00-5.40)
[2021-08-26 10:13] LABS: NEUTROPHILS # 0.7 10^3/uL (1.5-8.5)
[2021-08-26 10:30] LABS: BLOOD UREA NITROGEN 2 MG/DL (7-18); CALCIUM LEVEL 8.3 MG/DL (8.5-10.1); CARBON DIOXIDE LEVEL 27 MEQ/L (21-32); CHLORIDE LEVEL 112 MEQ/L (98-107); CREATININE FOR GFR 0.77 MG/DL (0.55-1.30); GLOMERULAR FILTRATION RATE > 60.0 (>58); GLUCOSE, FASTING 68 MG/DL (70-100); MAGNESIUM LEVEL 1.6 MG/DL (1.8-2.4); POTASSIUM SERUM 4.2 MEQ/L (3.5-5.1); SODIUM LEVEL 145 MEQ/L (136-145)
[2021-08-26 14:00] VITALS: BP 135/93
[2021-08-26] MEDS: SUMAtriptan SUCCINATE 25 MG TAB PO PRN (17:32)
[2021-08-26] MEDS ORDERED: ACETAMINOPHEN TAB 650MG DOSE (2X325MG) PO ONE (17:40)
[2021-08-26] MEDS: MONTELUKAST 10 MG TAB PO SCH (21:02)
[2021-08-26] MEDS: FIORICET TAB PO PRN (21:07)
--- NOTE | 2021-08-27 01:31 | IPNPDOC ---
Text Note Date of Service significant event 08/27/21. NOTE Pt with challenges to swallow pills. [employer] bedside appreciated. Adjusted meds to liquid as able. VS,Fishbone, I+O VS, Fishbone, I+O Laboratory Tests 08/26/21 09:11 Vital Signs Date Time Temp Pulse Resp B/P (MAP) Pulse Ox O2 Delivery O2 Flow Rate FiO2 08/26/21 21:37 16 08/26/21 14:00 99.4 111 135/93 (107) 99 Room Air I&O- Last 24 Hours up to 6 AM 08/27/21 06:00 Intake Total 220 ml Output Total 400 ml Balance -180 ml ABHIJEET MCDANIEL NP Aug 27, 2021 01:31
[2021-08-27 04:30] VITALS: BP 139/95
[2021-08-27] MEDS: LEVOTHYROXINE 25MCG TABLET (0.025MG) PO SCH (05:16)
[2021-08-27] MEDS ORDERED: POTASSIUM CHLORIDE 10% LIQ 20 MEQ/15 ML UDC PO SCH (09:00)
[2021-08-27 09:07] LABS: BASO # 0.2 10^3/uL (0.0-0.2); BASO % 3.8 % (0.0-1.0); HEMOGLOBIN 10.9 g/dl (12.0-15.5); LYMPH # 3.1 10^3/uL (1.5-5.0); MEAN CORPUSCULAR HEMOGLOBIN 29.6 pg (27.0-33.0); MEAN CORPUSCULAR HGB CONC 32.1 g/dl (32.0-36.5); MEAN CORPUSCULAR VOLUME 92.4 fl (80.0-96.0); MONO # 0.4 10^3/uL (0.0-0.8); MONO % 7.9 % (2.0-8.0); NEUTROPHILS % 16.6 % (36.0-66.0); PLATELET COUNT, AUTOMATED 241 10^3/uL (150-450); RED BLOOD COUNT 3.68 10^6/uL (4.00-5.40); WHITE BLOOD COUNT 4.4 10^3/uL (4.0-10.0)
[2021-08-27] MEDS: SUCRALFATE SUSP 1GM/10ML UD PO SCH ×4 (09:17→21:22)
[2021-08-27] MEDS: LACTOBACILLUS ACIDOPHILUS CAP (BACID) PO SCH (09:18)
[2021-08-27] MEDS: ASPIRIN 81MG ENTERIC TABLET PO SCH (09:18)
[2021-08-27] MEDS: FIBER-CON 625 MG TAB PO SCH (09:18)
[2021-08-27] MEDS: HYDROXYCHLOROQUINE 200 MG TAB PO SCH ×2 (09:19→21:24)
[2021-08-27] MEDS: TAMSULOSIN 0.4 MG CAP PO SCH (09:19)
[2021-08-27] MEDS: PANTOPRAZOLE 40MG TAB (PROTONIX) PO SCH (09:20)
[2021-08-27] MEDS: THIAMINE 100 MG TAB PO SCH (09:20)
[2021-08-27 09:30] LABS: BLOOD UREA NITROGEN 2 MG/DL (7-18); CALCIUM LEVEL 8.9 MG/DL (8.5-10.1); CARBON DIOXIDE LEVEL 25 MEQ/L (21-32); CHLORIDE LEVEL 114 MEQ/L (98-107); CREATININE FOR GFR 0.84 MG/DL (0.55-1.30); GLOMERULAR FILTRATION RATE > 60.0 (>58); GLUCOSE, FASTING 78 MG/DL (70-100); MAGNESIUM LEVEL 1.6 MG/DL (1.8-2.4); POTASSIUM SERUM 4.7 MEQ/L (3.5-5.1); SODIUM LEVEL 144 MEQ/L (136-145); VALPROIC ACID (DEPAKOTE) 29.3 UG/ML (50.0-100.0)
[2021-08-27 09:32] LABS: NEUTROPHILS # 0.7 10^3/uL (1.5-8.5)
[2021-08-27] MEDS: MAGNESIUM OXIDE 400MG TAB (MAG-OX) PO SCH ×2 (09:55→21:24)
[2021-08-27] MEDS: MIRALAX *UNIT DOSE* 17GM PACKET PO SCH (09:55)
[2021-08-27] MEDS: DIVALPROEX 250 MG TAB PO SCH ×2 (09:55→21:23)
[2021-08-27] MEDS: SUMAtriptan SUCCINATE 25 MG TAB PO PRN (18:41)
[2021-08-27] MEDS: MONTELUKAST 10 MG TAB PO SCH (21:24)
[2021-08-27] MEDS: FIORICET TAB PO PRN (21:24)
[2021-08-28] MEDS: LEVOTHYROXINE 25MCG TABLET (0.025MG) PO SCH (05:39)
[2021-08-28 06:00] VITALS: BP 160/85
[2021-08-28] MEDS: MAG SULF 1GM/100ML (MAG RUN) 1 GM in IV 1 EA IV SCH ×2 (08:00→09:00)
[2021-08-28] MEDS: THIAMINE 100 MG TAB PO SCH (09:14)
[2021-08-28] MEDS: MIRALAX *UNIT DOSE* 17GM PACKET PO SCH (09:14)
[2021-08-28] MEDS: LACTOBACILLUS ACIDOPHILUS CAP (BACID) PO SCH (09:14)
[2021-08-28] MEDS: SUCRALFATE SUSP 1GM/10ML UD PO SCH ×4 (09:14→21:13)
[2021-08-28] MEDS: TAMSULOSIN 0.4 MG CAP PO SCH (09:15)
[2021-08-28] MEDS: HYDROXYCHLOROQUINE 200 MG TAB PO SCH ×2 (09:15→21:13)
[2021-08-28] MEDS: PANTOPRAZOLE 40MG TAB (PROTONIX) PO SCH (09:15)
[2021-08-28] MEDS: MAGNESIUM OXIDE 400MG TAB (MAG-OX) PO SCH ×2 (09:15→21:13)
[2021-08-28] MEDS: DIVALPROEX 250 MG TAB PO SCH ×2 (09:15→21:13)
[2021-08-28] MEDS: ASPIRIN 81MG ENTERIC TABLET PO SCH (09:15)
[2021-08-28 09:56] LABS: HEMATOCRIT 31.7 % (36.0-47.0); HEMOGLOBIN 10.2 g/dl (12.0-15.5); MEAN CORPUSCULAR HEMOGLOBIN 29.8 pg (27.0-33.0); MEAN CORPUSCULAR HGB CONC 32.2 g/dl (32.0-36.5); MEAN CORPUSCULAR VOLUME 92.7 fl (80.0-96.0); PLATELET COUNT, AUTOMATED 189 10^3/uL (150-450); RED BLOOD COUNT 3.42 10^6/uL (4.00-5.40); WHITE BLOOD COUNT 3.7 10^3/uL (4.0-10.0)
[2021-08-28 10:14] LABS: BLOOD UREA NITROGEN 2 MG/DL (7-18); CALCIUM LEVEL 8.5 MG/DL (8.5-10.1); CARBON DIOXIDE LEVEL 27 MEQ/L (21-32); CHLORIDE LEVEL 113 MEQ/L (98-107); CREATININE FOR GFR 0.85 MG/DL (0.55-1.30); GLOMERULAR FILTRATION RATE > 60.0 (>58); GLUCOSE, FASTING 74 MG/DL (70-100); MAGNESIUM LEVEL 1.7 MG/DL (1.8-2.4); POTASSIUM SERUM 4.3 MEQ/L (3.5-5.1); SODIUM LEVEL 147 MEQ/L (136-145)
[2021-08-28 10:49] LABS: EOSINOPHILS 2 % (0-3); LYMPHOCYTES 59 % (16-44); MONOCYTES 8 % (0-5); NEUTROPHILS 31 % (28-66); PLATELET ESTIMATE NORMAL (NORMAL); SMUDGE CELLS 1+
[2021-08-28 14:06] LABS: BASO # 0.1 10^3/uL (0.0-0.2); BASO % 3.5 % (0.0-1.0); HEMATOCRIT 30.9 % (36.0-47.0); LYMPH # 2.3 10^3/uL (1.5-5.0); LYMPH % 61.5 % (24.0-44.0); MEAN CORPUSCULAR HEMOGLOBIN 29.9 pg (27.0-33.0); MEAN CORPUSCULAR HGB CONC 32.4 g/dl (32.0-36.5); MEAN CORPUSCULAR VOLUME 92.2 fl (80.0-96.0); MONO # 0.4 10^3/uL (0.0-0.8); MONO % 9.4 % (2.0-8.0); NEUTROPHILS % 25.1 % (36.0-66.0); PLATELET COUNT, AUTOMATED 190 10^3/uL (150-450); RED BLOOD COUNT 3.35 10^6/uL (4.00-5.40); WHITE BLOOD COUNT 3.7 10^3/uL (4.0-10.0)
[2021-08-28 14:26] LABS: BLOOD UREA NITROGEN 2 MG/DL (7-18); CALCIUM LEVEL 8.1 MG/DL (8.5-10.1); CARBON DIOXIDE LEVEL 29 MEQ/L (21-32); CHLORIDE LEVEL 113 MEQ/L (98-107); CREATININE FOR GFR 0.91 MG/DL (0.55-1.30); GLOMERULAR FILTRATION RATE > 60.0 (>58); GLUCOSE, FASTING 73 MG/DL (70-100); MAGNESIUM LEVEL 1.8 MG/DL (1.8-2.4); POTASSIUM SERUM 4.4 MEQ/L (3.5-5.1); SODIUM LEVEL 146 MEQ/L (136-145)
[2021-08-28 14:36] LABS: NEUTROPHILS # 0.9 10^3/uL (1.5-8.5)
--- NOTE | 2021-08-28 15:51 | IPNPDOC ---
Date Seen The patient was seen on 08/28/21. Progress Note SUBJECTIVE: Seen and examined at bedside. Doing well, no acute events overnight. Denies CP, SOB, palpitations, fevers, n/v/d. OBJECTIVE PHYSICAL EXAMINATION: VITAL SIGNS: please see below General: NAD, comfortable HEENT: PERRLA, EOMI, sclerae clear Neck: supple, normal ROM, no JVD Respiratory: lungs CTAB, no wheeze, no rales, no crackles CVS: RRR, normal S1, S2, no murmurs Abdo: soft, no masses, no hepatosplenomegaly, BS+, no rebound tenderness Extremities: no edema, pulses 2+ MSK: no joint deformities, normal ROM Neuro: no focal neuro deficits, moving all 4 extremities, CN2-12 intact. Strength 5/5 in all 4 extremities. No nystagmus. Psych: calm, cooperative, AAO x 3 LABORATORY DATA, IMAGING STUDIES, MICROBIOLOGY: Please see below. CT Cervical spine 07/30: 1. Patchy peripheral ground-glass infiltrate is seen in the upper lung rios of concern for possible COVID-19 pneumonia. 2. No evidence of an acute cervical spine abnormality. CXR 07/30: No acute pulmonary disease. CT head 07/30: 1. There is divergent gaze. 2. No acute intracranial process is identified. CT abdomen / pelvis 07/31: 1. Region of low attenuation in the right main pulmonary artery and right lower lobar pulmonary artery (image 1 of the axial series 201), which is suspicious for a pulmonary embolism. A CTA chest with intravenous contrast is suggested for further evaluation. 2. Commonly reported imaging features of COVID-19 pneumonia are present. Other processes such as influenza pneumonia and organizing pneumonia, as can be seen with drug toxicity and connective tissue disease, can cause a similar imaging pattern. (Reference: Lindquist) 3. Enlarged, fatty liver. 4. Healing fractures of the right anterior 6th and 7th ribs and right posterior 10th and 11th ribs, which can also be seen in the CT abdomen and pelvis on 07/18/2021. US guided needle placement (PICC line) 07/31: PICC line insertion right brachial vein with the tip ending in the SVC. Vascular US 07/31: No deep vein thrombosis in the veins imaged in both lower extremities. CT angio chest 08/02 1. No evidence for pulmonary embolus. 2. Patchy opacities with minimal basilar atelectasis. Differential diagnosis includes multifocal infectious/inflammatory process including possible COVID-19 pulmonary disease. 3. Marked hepatosteatosis and mild to moderate diffuse subcutaneous edema to the surrounding visualized subcutaneous tissues. Renal US 08/04: 1. No hydronephrosis in either kidney. See above CT head 08/22: Normal noncontrast head CT. No evidence for acute intracranial pathology or trauma/injury. MRI brain w and wo contrast (08/23/21): IMPRESSION: Images are motion degraded. No acute intracranial abnormality seen ASSESSMENT AND PLAN: Patient is a 41 year old female with a PMHx of extensive Psych history, Migraines, Sjgren's, SLE, RA, HTN, Asthma, Fatty liver disease who presented to the emergency room after they were found on the floor. Patient was admitted to the hospital service for further evaluation, treatment of her confusion suspected to be secondary to medications. PROBLEMS: Acute metabolic encephalopathy - likely 2/2 UTI - Patient has remained hemodynamically stable and afebrile - Physical does not reveal any focal deficits. However, she is only oriented to person - Again there is no leukocytosis; s/p Lactic acidosis - Blood cultures 08/21: No growth at 48 hours - Repeat UA 08/22 has been unremarkable and repeat urine culture has been negative (however, this been collected on antibiotics) - Imaging negative - MRI brain with and without contrast - negative for acute intracranial abnormality - c/w Zosyn (Day #3) and Doxycycline (Day #2); s/p Aztreonam x 1 dose s/p Lactic acidosis - s/p IV fluid hydration s/p Acute toxic encephalopathy - likely 2/2 polypharmacy initially, - s/p Opiates / Zolpidem - c/w Ativan PRN s/p Hypoglycemia - c/w Dextrose based fluids for now s/p Possible interstitial pneumonia - Saturating well on room air - PCT of 2.05 - Respiratory panel 07/30: Negative - Blood cultures 08/02: No growth at 5 days Elevated troponin - likely 2/2 demand ischemia, unlikely 2/2 NSTEMI - No complaints of pain this morning - Troponin trend improved - EKG reviewed - c/w ASA 81; Will consider Atorvastatin on discharge s/p PARAS - Creatinine has normalized - Imaging noted above s/p Rhabdomyolysis s/p Transaminitis / Hyperbilirubinemia - likely 2/2 medications - s/p Methotrexate (re: hepatotoxic) s/p Thrombocytopenia - No evidence of bleeding - Will continue to follow counts Anemia - Hg remains stable - s/p 2 units PRBC - Will continue to follow trend s/p Hypomagnesemia Migraines - c/w sumatriptan RA - c/w Hydroxychloroquine; Will hold Methotrexate - Will have outpatient follow-up with rheumatology for resumption of methotrexate therapy Chronic Asthma - No evidence of exacerbation - c/w Inhaled therapy as ordered Anxiety / Depression / Hx SI / Bipolar / Bulimia - Will hold Duloxetine and Gabapentin (re: Confusion) GI prophylaxis - c/w Pantoprazole / Sucralfate DVT prophylaxis - c/w TEDs/Sequentials Disposition: - Awaiting clinical improvement VS, I&O, 24H, Fishbone Vital Signs/I&O Vital Signs Date Time Temp Pulse Resp B/P (MAP) Pulse Ox O2 Delivery O2 Flow Rate FiO2 08/28/21 06:00 98.5 92 18 160/85 (110) 94 Room Air I&O- Last 24 Hours up to 6 AM 08/28/21 06:00 Intake Total 200 ml Output Total 1100 ml Balance -900 ml Laboratory Data 24H LABS Laboratory Tests 2 08/27/21 16:30: Bedside Glucose (Misc Panel) 71 08/27/21 23:51: Bedside Glucose (Misc Panel) 67L 08/28/21 09:34: Neutrophils (%) (Auto) , Neutrophils # (Auto) , Nucleated Red Blood Cells % (auto) 0.5H, Neutrophils 31, Lymphocytes (Manual) 59H, Monocytes (Manual) 8H, Eosinophils (Manual) 2, Smudge Cells 1+, Platelet Estimate NORMAL, Anion Gap 7L, Glomerular Filtration Rate > 60.0, Calcium Level 8.5, Magnesium Level 1.7L 08/28/21 12:42: Bedside Glucose (Misc Panel) 76 08/28/21 13:52: Immature Granulocyte % (Auto) 0.5, Neutrophils (%) (Auto) 25.1L, Lymphocytes (%) (Auto) 61.5H, Monocytes (%) (Auto) 9.4H, Eosinophils (%) (Auto) 0.0, Basophils (%) (Auto) 3.5H, Neutrophils # (Auto) 0.9L, Lymphocytes # (Auto) 2.3, Monocytes # (Auto) 0.4, Eosinophils # (Auto) 0.0, Basophils # (Auto) 0.1, Nucleated Red Blood Cells % (auto) 0.8H, Anion Gap 4L, Glomerular Filtration Rate > 60.0, Calcium Level 8.1L, Magnesium Level 1.8 CBC/BMP Laboratory Tests 08/28/21 09:34 08/28/21 13:52 Microbiology Microbiology 08/24/21 Stool Occult Blood (GUNNER) - Final, Complete 08/22/21 Blood Culture - Final, Complete NO GROWTH AFTER 5 DAYS 08/22/21 Blood Culture - Final, Complete NO GROWTH AFTER 5 DAYS 08/22/21 Urine Culture - Final, Complete 08/21/21 Blood Culture - Final, Complete NO GROWTH AFTER 5 DAYS 08/21/21 Blood Culture - Final, Complete NO GROWTH AFTER 5 DAYS 08/21/21 Urine Culture - Final, Complete TIFFANY VILLAGOMEZ MD Aug 28, 2021 15:51
[2021-08-28] MEDS: MONTELUKAST 10 MG TAB PO SCH (21:13)
[2021-08-29 06:00] VITALS: BP 150/84
[2021-08-29 06:20] LABS: BASO # 0.1 10^3/uL (0.0-0.2); BASO % 3.1 % (0.0-1.0); HEMATOCRIT 29.7 % (36.0-47.0); HEMOGLOBIN 9.8 g/dl (12.0-15.5); LYMPH # 2.8 10^3/uL (1.5-5.0); MEAN CORPUSCULAR HEMOGLOBIN 30.4 pg (27.0-33.0); MEAN CORPUSCULAR VOLUME 92.2 fl (80.0-96.0); MONO # 0.4 10^3/uL (0.0-0.8); MONO % 10.2 % (2.0-8.0); NEUTROPHILS % 18.5 % (36.0-66.0); PLATELET COUNT, AUTOMATED 184 10^3/uL (150-450); RED BLOOD COUNT 3.22 10^6/uL (4.00-5.40); WHITE BLOOD COUNT 4.1 10^3/uL (4.0-10.0)
[2021-08-29] MEDS: LEVOTHYROXINE 25MCG TABLET (0.025MG) PO SCH (06:32)
[2021-08-29 06:37] LABS: BLOOD UREA NITROGEN 2 MG/DL (7-18); CALCIUM LEVEL 7.8 MG/DL (8.5-10.1); CARBON DIOXIDE LEVEL 29 MEQ/L (21-32); CHLORIDE LEVEL 113 MEQ/L (98-107); CREATININE FOR GFR 0.91 MG/DL (0.55-1.30); GLOMERULAR FILTRATION RATE > 60.0 (>58); GLUCOSE, FASTING 68 MG/DL (70-100); MAGNESIUM LEVEL 1.8 MG/DL (1.8-2.4); SODIUM LEVEL 146 MEQ/L (136-145)
[2021-08-29 06:50] LABS: NEUTROPHILS # 0.8 10^3/uL (1.5-8.5)
[2021-08-29] MEDS: PANTOPRAZOLE 40MG TAB (PROTONIX) PO SCH (10:46)
[2021-08-29] MEDS: MAGNESIUM OXIDE 400MG TAB (MAG-OX) PO SCH ×2 (10:46→20:41)
[2021-08-29] MEDS: LACTOBACILLUS ACIDOPHILUS CAP (BACID) PO SCH (10:47)
[2021-08-29] MEDS: THIAMINE 100 MG TAB PO SCH (10:47)
[2021-08-29] MEDS: HYDROXYCHLOROQUINE 200 MG TAB PO SCH ×2 (10:47→20:41)
[2021-08-29] MEDS: TAMSULOSIN 0.4 MG CAP PO SCH (10:47)
[2021-08-29] MEDS: ASPIRIN 81MG ENTERIC TABLET PO SCH (10:47)
[2021-08-29] MEDS: DIVALPROEX 250 MG TAB PO SCH ×2 (10:48→20:41)
[2021-08-29] MEDS: MIRALAX *UNIT DOSE* 17GM PACKET PO SCH (10:48)
[2021-08-29] MEDS: SUCRALFATE SUSP 1GM/10ML UD PO SCH ×4 (10:48→20:41)
[2021-08-29] MEDS: SUMAtriptan SUCCINATE 25 MG TAB PO PRN (18:16)
[2021-08-29] MEDS: MONTELUKAST 10 MG TAB PO SCH (20:41)
[2021-08-29] MEDS ORDERED: hydrOXYzine 25 MG TAB PO ONE (23:25)
[2021-08-30 05:47] VITALS: BP 136/80
[2021-08-30] MEDS: SUCRALFATE SUSP 1GM/10ML UD PO SCH ×4 (07:30→21:00)
[2021-08-30] MEDS: DIVALPROEX 250 MG TAB PO SCH ×2 (10:50→21:00)
[2021-08-30] MEDS: TAMSULOSIN 0.4 MG CAP PO SCH (10:51)
[2021-08-30] MEDS: FIBER-CON 625 MG TAB PO SCH ×2 (10:51→21:00)
[2021-08-30] MEDS: ASPIRIN 81MG ENTERIC TABLET PO SCH (10:51)
[2021-08-30] MEDS: LACTOBACILLUS ACIDOPHILUS CAP (BACID) PO SCH (10:51)
[2021-08-30] MEDS: MIRALAX *UNIT DOSE* 17GM PACKET PO SCH ×2 (10:51→10:55)
[2021-08-30] MEDS: MAGNESIUM OXIDE 400MG TAB (MAG-OX) PO SCH ×2 (10:52→21:00)
[2021-08-30] MEDS: HYDROXYCHLOROQUINE 200 MG TAB PO SCH ×2 (10:52→21:00)
[2021-08-30] MEDS: PANTOPRAZOLE 40MG TAB (PROTONIX) PO SCH (10:52)
[2021-08-30] MEDS: THIAMINE 100 MG TAB PO SCH (10:52)
[2021-08-30] MEDS: LEVOTHYROXINE 25MCG TABLET (0.025MG) PO SCH (11:18)
[2021-08-30] MEDS: FIORICET TAB PO PRN (11:19)
[2021-08-30] MEDS: MONTELUKAST 10 MG TAB PO SCH (21:00)
[2021-08-31] MEDS: LEVOTHYROXINE 25MCG TABLET (0.025MG) PO SCH (05:47)
[2021-08-31 06:11] VITALS: BP 128/79
[2021-08-31] MEDS: FIBER-CON 625 MG TAB PO SCH ×2 (09:00→20:40)
[2021-08-31] MEDS: MIRALAX *UNIT DOSE* 17GM PACKET PO SCH (09:00)
[2021-08-31] MEDS: DIVALPROEX 250 MG TAB PO SCH ×2 (09:01→20:39)
[2021-08-31] MEDS: PANTOPRAZOLE 40MG TAB (PROTONIX) PO SCH (09:02)
[2021-08-31] MEDS: MAGNESIUM OXIDE 400MG TAB (MAG-OX) PO SCH ×2 (09:02→20:40)
[2021-08-31] MEDS: THIAMINE 100 MG TAB PO SCH (09:02)
[2021-08-31] MEDS: LACTOBACILLUS ACIDOPHILUS CAP (BACID) PO SCH (09:02)
[2021-08-31] MEDS: ASPIRIN 81MG ENTERIC TABLET PO SCH (09:02)
[2021-08-31] MEDS: HYDROXYCHLOROQUINE 200 MG TAB PO SCH ×2 (09:02→20:40)
[2021-08-31] MEDS: TAMSULOSIN 0.4 MG CAP PO SCH (09:02)
[2021-08-31] MEDS: SUCRALFATE SUSP 1GM/10ML UD PO SCH ×4 (09:03→20:39)
[2021-08-31] MEDS: MONTELUKAST 10 MG TAB PO SCH (20:40)
[2021-08-31] MEDS: FIORICET TAB PO PRN (20:40)
[2021-09-01] MEDS: LEVOTHYROXINE 25MCG TABLET (0.025MG) PO SCH (05:22)
[2021-09-01 06:00] VITALS: BP 123/78
[2021-09-01] MEDS: ASPIRIN 81MG ENTERIC TABLET PO SCH (09:11)
[2021-09-01] MEDS: PANTOPRAZOLE 40MG TAB (PROTONIX) PO SCH (09:11)
[2021-09-01] MEDS: SUCRALFATE SUSP 1GM/10ML UD PO SCH ×4 (09:11→20:49)
[2021-09-01] MEDS: TAMSULOSIN 0.4 MG CAP PO SCH (09:11)
[2021-09-01] MEDS: FIBER-CON 625 MG TAB PO SCH ×2 (09:11→20:49)
[2021-09-01] MEDS: HYDROXYCHLOROQUINE 200 MG TAB PO SCH ×2 (09:11→20:50)
[2021-09-01] MEDS: MAGNESIUM OXIDE 400MG TAB (MAG-OX) PO SCH ×2 (09:11→20:50)
[2021-09-01] MEDS: THIAMINE 100 MG TAB PO SCH (09:11)
[2021-09-01] MEDS: LACTOBACILLUS ACIDOPHILUS CAP (BACID) PO SCH (09:11)
[2021-09-01] MEDS: MIRALAX *UNIT DOSE* 17GM PACKET PO SCH (09:11)
[2021-09-01] MEDS: DIVALPROEX 250 MG TAB PO SCH ×2 (09:12→20:49)
[2021-09-01] MEDS: MONTELUKAST 10 MG TAB PO SCH (20:49)
[2021-09-02] MEDS: LEVOTHYROXINE 25MCG TABLET (0.025MG) PO SCH (05:47)
[2021-09-02] MEDS: MIRALAX *UNIT DOSE* 17GM PACKET PO SCH (09:00)
[2021-09-02] MEDS: THIAMINE 100 MG TAB PO SCH (09:23)
[2021-09-02] MEDS: MAGNESIUM OXIDE 400MG TAB (MAG-OX) PO SCH ×2 (09:23→19:57)
[2021-09-02] MEDS: ASPIRIN 81MG ENTERIC TABLET PO SCH (09:23)
[2021-09-02] MEDS: SUCRALFATE SUSP 1GM/10ML UD PO SCH ×4 (09:23→19:56)
[2021-09-02] MEDS: HYDROXYCHLOROQUINE 200 MG TAB PO SCH ×2 (09:23→19:57)
[2021-09-02] MEDS: PANTOPRAZOLE 40MG TAB (PROTONIX) PO SCH (09:23)
[2021-09-02] MEDS: FIBER-CON 625 MG TAB PO SCH ×2 (09:24→19:56)
[2021-09-02] MEDS: DIVALPROEX 250 MG TAB PO SCH ×2 (09:24→19:56)
[2021-09-02] MEDS: LACTOBACILLUS ACIDOPHILUS CAP (BACID) PO SCH (09:24)
[2021-09-02] MEDS: TAMSULOSIN 0.4 MG CAP PO SCH (09:24)
[2021-09-02 17:07] LABS: COMPLEMENT C2 2.7 mg/dL (1.4-3.3); COMPLEMENT TOTAL (CH50) < 10 U/mL (>41)
[2021-09-02] MEDS: MONTELUKAST 10 MG TAB PO SCH (19:56)
[2021-09-02] MEDS ORDERED: POLYVINYL ALCOHOL OPHTH SOLN 15 ML(LIQUITEARS) OU PRN (22:00)
[2021-09-03 05:51] LABS: BASO # 0.1 10^3/uL (0.0-0.2); BASO % 2.4 % (0.0-1.0); HEMATOCRIT 32.4 % (36.0-47.0); HEMOGLOBIN 10.7 g/dl (12.0-15.5); LYMPH # 3.8 10^3/uL (1.5-5.0); LYMPH % 63.5 % (24.0-44.0); MEAN CORPUSCULAR HEMOGLOBIN 30.2 pg (27.0-33.0); MEAN CORPUSCULAR VOLUME 91.5 fl (80.0-96.0); MONO # 0.6 10^3/uL (0.0-0.8); MONO % 9.6 % (2.0-8.0); NEUTROPHILS # 1.4 10^3/uL (1.5-8.5); NEUTROPHILS % 24.2 % (36.0-66.0); PLATELET COUNT, AUTOMATED 149 10^3/uL (150-450); RED BLOOD COUNT 3.54 10^6/uL (4.00-5.40); WHITE BLOOD COUNT 5.9 10^3/uL (4.0-10.0)
[2021-09-03] MEDS: LEVOTHYROXINE 25MCG TABLET (0.025MG) PO SCH (05:51)
[2021-09-03 06:00] VITALS: BP 111/75
[2021-09-03 06:20] LABS: ALBUMIN 1.9 GM/DL (3.2-5.2); ALT/SGPT 13 U/L (12-78); BILIRUBIN,TOTAL 0.5 MG/DL (0.2-1.0); BLOOD UREA NITROGEN 4 MG/DL (7-18); CALCIUM LEVEL 8.3 MG/DL (8.5-10.1); CARBON DIOXIDE LEVEL 27 MEQ/L (21-32); CHLORIDE LEVEL 109 MEQ/L (98-107); CREATININE FOR GFR 0.82 MG/DL (0.55-1.30); GLOMERULAR FILTRATION RATE > 60.0 (>58); GLUCOSE, FASTING 80 MG/DL (70-100); MAGNESIUM LEVEL 1.7 MG/DL (1.8-2.4); SODIUM LEVEL 143 MEQ/L (136-145)
[2021-09-03] MEDS: SUCRALFATE SUSP 1GM/10ML UD PO SCH ×4 (07:30→21:43)
[2021-09-03] MEDS: MIRALAX *UNIT DOSE* 17GM PACKET PO SCH (09:45)
[2021-09-03] MEDS: HYDROXYCHLOROQUINE 200 MG TAB PO SCH ×2 (09:45→21:44)
[2021-09-03] MEDS: FIBER-CON 625 MG TAB PO SCH ×2 (09:45→21:44)
[2021-09-03] MEDS: TAMSULOSIN 0.4 MG CAP PO SCH (09:45)
[2021-09-03] MEDS: THIAMINE 100 MG TAB PO SCH (09:46)
[2021-09-03] MEDS: MAGNESIUM OXIDE 400MG TAB (MAG-OX) PO SCH ×2 (09:46→21:44)
[2021-09-03] MEDS: PANTOPRAZOLE 40MG TAB (PROTONIX) PO SCH (09:46)
[2021-09-03] MEDS: LACTOBACILLUS ACIDOPHILUS CAP (BACID) PO SCH (09:46)
[2021-09-03] MEDS: ASPIRIN 81MG ENTERIC TABLET PO SCH (09:46)
[2021-09-03] MEDS: DIVALPROEX 250 MG TAB PO SCH ×2 (09:46→21:44)
--- NOTE | 2021-09-03 16:52 | IPNPDOC ---
Text Note Date of Service The patient was seen on 09/03/21. NOTE Subjective: No new acute events overnight. Patient was alert, awake and leroy ented in the morning Objective: GENERAL APPEARANCE: NAD HEENT: no scleral icterus, no JVD, EOMI CARDIOVASCULAR: S1S2 LUNGS: Diminished lung sounds bilaterally ABDOMEN: soft & not tender w palpation MUSCULOSKELETAL: no cyanosis, no swelling INTEGUMENT: no generalized pallor, Patient's sacral area appears to have a stage I decubitus ulcer with extension into the perineum NEUROLOGICAL: cranial nerve function from 2-12 intact, follows commands, speech not dysarthric ASSESSMENT AND PLAN: Patient is a 41 year old female with a PMHx of extensive Psych history, Migraines, Sjgren's, SLE, RA, HTN, Asthma, Fatty liver disease who presented to the emergency room after they were found on the floor. Patient was admitted to the hospital service for further evaluation, treatment of her confusion suspected to be secondary to medications. Metabolic encephalopathy Resolved today Unclear etiology, most likely due to polypharmacy Urine specimen did not show bacterial growth Patient received course of antibiotic therapy Blood culture negative Imaging study negative for acute infection I discontinued gabapentin Lactic acidosis Resolved Possible interstitial pneumonia Patient received a course of antibiotic Patient does not have dyspnea, she is on room air, lungs clear on the auscultation Elevated troponin Troponin trending down Patient denies any chest pain PARAS Resolved s/p Rhabdomyolysis s/p Transaminitis / Hyperbilirubinemia - likely 2/2 medications Methotrexate on hold s/p Thrombocytopenia No evidence of bleeding Anemia - Hg remains stable - s/p 2 units PRBC - Will continue to follow trend We will check stool for occult blood Hypomagnesemia Continue magnesium supplementation Migraines - c/w sumatriptan RA - c/w Hydroxychloroquine; Will hold Methotrexate - Will have outpatient follow-up with rheumatology for resumption of m ethotrexate therapy Chronic Asthma - No evidence of exacerbation - c/w Inhaled therapy as ordered Anxiety / Depression / Hx SI / Bipolar / Bulimia - Will hold Gabapentin, resume duloxetine tomorrow GI prophylaxis - c/w Pantoprazole / Sucralfate DVT prophylaxis - c/w TEDs/Sequentials VS,Fishbone, I+O VS, Fishbone, I+O Laboratory Tests 09/03/21 05:35 Vital Signs Date Time Temp Pulse Resp B/P (MAP) Pulse Ox O2 Delivery O2 Flow Rate FiO2 09/03/21 06:00 98.3 109 19 111/75 (87) 100 Room Air I&O- Last 24 Hours up to 6 AM 09/03/21 06:00 Intake Total 100 ml Balance 100 ml YANNI FLORES DO Sep 03, 2021 16:52
[2021-09-03] MEDS ORDERED: DULoxetine 30MG CAPSULE (CYMBALTA) PO ONE (17:10)
[2021-09-03] MEDS: MONTELUKAST 10 MG TAB PO SCH (21:43)
[2021-09-04 06:40] VITALS: BP 137/99
[2021-09-04] MEDS: LEVOTHYROXINE 25MCG TABLET (0.025MG) PO SCH (06:47)
[2021-09-04] MEDS: SUCRALFATE SUSP 1GM/10ML UD PO SCH ×4 (07:30→20:05)
[2021-09-04] MEDS: MIRALAX *UNIT DOSE* 17GM PACKET PO SCH (08:44)
[2021-09-04] MEDS: DIVALPROEX 250 MG TAB PO SCH ×2 (08:44→20:06)
[2021-09-04] MEDS: PANTOPRAZOLE 40MG TAB (PROTONIX) PO SCH (08:44)
[2021-09-04] MEDS: LACTOBACILLUS ACIDOPHILUS CAP (BACID) PO SCH (08:44)
[2021-09-04] MEDS: THIAMINE 100 MG TAB PO SCH (08:45)
[2021-09-04] MEDS: HYDROXYCHLOROQUINE 200 MG TAB PO SCH ×2 (08:45→20:06)
[2021-09-04] MEDS: TAMSULOSIN 0.4 MG CAP PO SCH (08:45)
[2021-09-04] MEDS: ASPIRIN 81MG ENTERIC TABLET PO SCH (08:45)
[2021-09-04] MEDS: MAGNESIUM OXIDE 400MG TAB (MAG-OX) PO SCH ×2 (08:45→20:07)
[2021-09-04] MEDS: FIBER-CON 625 MG TAB PO SCH ×2 (08:45→20:06)
--- NOTE | 2021-09-04 12:49 | IPNPDOC ---
Text Note Date of Service The patient was seen on 09/04/21. NOTE Subjective: No new acute events overnight. Patient was agitated and aggressive to staff in the morning. Patient was not oriented in time, she does not know what month it is, but she knows the year and that she is in the hospital. Objective: GENERAL APPEARANCE: NAD HEENT: no scleral icterus, no JVD, EOMI CARDIOVASCULAR: S1S2 LUNGS: Diminished lung sounds bilaterally ABDOMEN: soft & not tender w palpation MUSCULOSKELETAL: no cyanosis, no swelling INTEGUMENT: no generalized pallor, Patient's sacral area appears to have a stage I decubitus ulcer with extension into the perineum NEUROLOGICAL: cranial nerve function from 2-12 intact, follows commands, speech not dysarthric ASSESSMENT AND PLAN: Patient is a 41 year old female with a PMHx of extensive Psych history, Migraines, Sjgren's, SLE, RA, HTN, Asthma, Fatty liver disease who presented to the emergency room after they were found on the floor. Patient was admitted to the hospital service for further evaluation, treatment of her confusion suspected to be secondary to medications. Metabolic encephalopathy Improved Unclear etiology, most likely due to polypharmacy Urine specimen did not show bacterial growth Patient received course of antibiotic therapy Blood culture negative Imaging study negative for acute infection I discontinued gabapentin Bipolar disorder Patient seems quite psychotic I will ask psych team evaluate you Lactic acidosis Resolved Possible interstitial pneumonia Patient received a course of antibiotic Patient does not have dyspnea, she is on room air, lungs clear on the auscultation Elevated troponin Troponin trending down Patient denies any chest pain PARAS Resolved s/p Rhabdomyolysis s/p Transaminitis / Hyperbilirubinemia - likely 2/2 medications Methotrexate on hold s/p Thrombocytopenia No evidence of bleeding Anemia - Hg remains stable - s/p 2 units PRBC - Will continue to follow trend We will check stool for occult blood Hypomagnesemia Continue magnesium supplementation Migraines - c/w sumatriptan RA - c/w Hydroxychloroquine; Will hold Methotrexate - Will have outpatient follow-up with rheumatology for resumption of methotrexate therapy Chronic Asthma - No evidence of exacerbation - c/w Inhaled therapy as ordered Anxiety / Depression / Hx SI / Bipolar / Bulimia - Will hold Gabapentin, resume duloxetine tomorrow GI prophylaxis - c/w Pantoprazole / Sucralfate DVT prophylaxis - c/w TEDs/Sequentials VS,Fishbone, I+O VS, Fishbone, I+O Vital Signs Date Time Temp Pulse Resp B/P (MAP) Pulse Ox O2 Delivery O2 Flow Rate FiO2 09/04/21 06:40 99.2 96 18 137/99 (112) 98 Room Air I&O- Last 24 Hours up to 6 AM 09/04/21 06:00 Intake Total 50 ml Output Total 400 ml Balance -350 ml YANNI FLORES Sep 04, 2021 12:49
[2021-09-04] MEDS: ENOXAPARIN 30MG/0.3ML SYRINGE (J1650 PER 10MG) SC SCH (13:00)
[2021-09-04] MEDS: haloperidoL 1 MG TAB PO PRN (16:21)
[2021-09-04] MEDS: DULoxetine 30MG CAPSULE (CYMBALTA) PO SCH (20:06)
[2021-09-04] MEDS: MONTELUKAST 10 MG TAB PO SCH (20:06)
[2021-09-05] MEDS: LEVOTHYROXINE 25MCG TABLET (0.025MG) PO SCH (06:06)
[2021-09-05 06:48] VITALS: BP 111/77
[2021-09-05] MEDS: SUCRALFATE SUSP 1GM/10ML UD PO SCH ×4 (09:28→19:58)
[2021-09-05] MEDS: FIBER-CON 625 MG TAB PO SCH ×2 (09:28→19:57)
[2021-09-05] MEDS: HYDROXYCHLOROQUINE 200 MG TAB PO SCH ×2 (09:28→19:58)
[2021-09-05] MEDS: PANTOPRAZOLE 40MG TAB (PROTONIX) PO SCH (09:28)
[2021-09-05] MEDS: THIAMINE 100 MG TAB PO SCH (09:29)
[2021-09-05] MEDS: DIVALPROEX 250 MG TAB PO SCH ×2 (09:29→19:53)
[2021-09-05] MEDS: MAGNESIUM OXIDE 400MG TAB (MAG-OX) PO SCH ×2 (09:31→19:54)
[2021-09-05] MEDS: ASPIRIN 81MG ENTERIC TABLET PO SCH (09:31)
[2021-09-05] MEDS: TAMSULOSIN 0.4 MG CAP PO SCH (09:31)
[2021-09-05] MEDS: LACTOBACILLUS ACIDOPHILUS CAP (BACID) PO SCH (09:31)
[2021-09-05] MEDS: MIRALAX *UNIT DOSE* 17GM PACKET PO SCH (09:32)
[2021-09-05] MEDS: ENOXAPARIN 30MG/0.3ML SYRINGE (J1650 PER 10MG) SC SCH (09:32)
[2021-09-05] MEDS: LORazepam 2 MG/ML VIAL IM PRN (09:45)
[2021-09-05] MEDS ORDERED: LORazepam 0.5 MG TAB PO ONE (19:20)
[2021-09-05] MEDS: MONTELUKAST 10 MG TAB PO SCH (19:52)
[2021-09-05] MEDS: OLANZapine ORAL DISINTEGRATING TAB 5MG PO SCH (19:56)
[2021-09-05] MEDS: DULoxetine 30MG CAPSULE (CYMBALTA) PO SCH (19:56)
[2021-09-05] MEDS: haloperidoL 1 MG TAB PO PRN (23:46)
[2021-09-06] MEDS ORDERED: LORazepam 0.5 MG TAB PO ONE (01:55)
[2021-09-06] MEDS: SUMAtriptan SUCCINATE 25 MG TAB PO PRN (02:50)
[2021-09-06 05:21] VITALS: BP 118/82
[2021-09-06] MEDS: LEVOTHYROXINE 25MCG TABLET (0.025MG) PO SCH (06:21)
[2021-09-06] MEDS: SUCRALFATE SUSP 1GM/10ML UD PO SCH ×4 (07:30→20:13)
[2021-09-06] MEDS: DIVALPROEX 250 MG TAB PO SCH ×2 (09:35→20:13)
[2021-09-06] MEDS: ASPIRIN 81MG ENTERIC TABLET PO SCH (09:35)
[2021-09-06] MEDS: FIBER-CON 625 MG TAB PO SCH ×2 (09:35→20:12)
[2021-09-06] MEDS: ENOXAPARIN 30MG/0.3ML SYRINGE (J1650 PER 10MG) SC SCH (09:35)
[2021-09-06] MEDS: THIAMINE 100 MG TAB PO SCH (09:36)
[2021-09-06] MEDS: LACTOBACILLUS ACIDOPHILUS CAP (BACID) PO SCH (09:36)
[2021-09-06] MEDS: MIRALAX *UNIT DOSE* 17GM PACKET PO SCH (09:37)
[2021-09-06] MEDS: PANTOPRAZOLE 40MG TAB (PROTONIX) PO SCH (09:37)
[2021-09-06] MEDS: HYDROXYCHLOROQUINE 200 MG TAB PO SCH ×2 (09:37→20:10)
[2021-09-06] MEDS: MAGNESIUM OXIDE 400MG TAB (MAG-OX) PO SCH ×2 (09:37→20:11)
[2021-09-06] MEDS: OLANZapine ORAL DISINTEGRATING TAB 5MG PO SCH ×2 (09:37→20:08)
[2021-09-06] MEDS: TAMSULOSIN 0.4 MG CAP PO SCH (09:37)
--- NOTE | 2021-09-06 12:26 | MHCR ---
[facility] CONSULTATION DATE: 09/05/2021 This patient was seen via Telepsychiatry due to the current coronavirus crisis. HISTORY OF PRESENT ILLNESS: I was asked to see this 41-year-old woman who has an extensive psychiatric history of what appears to be possibly bipolar disorder. She has a history of being very noncompliant with treatment and frequently comes to the emergency room, often is evaluated and is able to go home. She has had numerous psychiatric admissions also. Usually, she presents with complaints of depression and suicidal thoughts. She has a history of intellectual disability also. This time, she was admitted to the medical service after she was brought in by emergency medical services (EMS) after friends called EMS after they found her on the floor. Upon presentation to the emergency department (ED), she was obtunded, but easily arousable, would ramble nonsense and at times would shout and she really could not provide much history. She was admitted for evaluation of altered mental status on 07/30/2021. The patient apparently has become aggressive towards staff, not physically aggressive, but she has verbalized to staff that she is going to become physically aggressive. They say that at times she has pressured speech and so the question was, could this be that possibly she took too much of her medications. The fact is that the patient is very unreliable and appears to be confused. I saw the patient first yesterday, on 09/04/2021, but the patient was very difficult to engage and mostly was oriented to person. I did ask her where she was at, and after quite a long interval, she was able to say "[facility]." I asked her several questions, but could not get much of a response to one of the questions. She said something about temperature, which had nothing to do with the question. So, I went to see the patient again today. She was definitely much more verbal today. She did seem to be confused. She insisted that she was at home, that she had been in the hospital, but she had been discharged three weeks ago. She stated that she had been living with her parents in [place], and that was pretty much my extent with the interaction with her. Apparently, the patient is supposed to be on Cymbalta 120 mg at bedtime, Depakote 250 mg three times a day, alprazolam 0.5 mg twice a day as needed for anxiety, Ambien 10 mg at bedtime, gabapentin 600 mg three times a day, but it is not clear if this is for psychiatric reasons that she takes this. I do believe, however, that the patient is not very reliable. I did review multiple notes from patient's prior hospitalizations. The most recent one was from 02/15/2021 until 02/20/2021. She was diagnosed with bipolar disorder and unspecified intellectual disability. Of note was at that time, she was being prescribed Zyprexa 5 mg daily and, in addition to Cymbalta, she was on trazodone then and Topamax. Actually, there was one admission more recent than that, but it was only an overnight admission, from 04/16/2021 until 04/17/2021 and, at that point, she had some suicidal ideations or she had admitted to taking some extra Tylenol and Ambien, but it was to go to sleep and, at that time, she was diagnosed with just major depression. Also, I have checked multiple prior notes going back to 2018, when she was admitted at the time and, at that time, she was admitted on Seroquel 300 mg at bedtime and Zyprexa 7/5 mg at bedtime, so it is pretty clear that she has been treated with antipsychotics, but for some recent reason, she has not been on any. I suspect that she is not very complaint. PAST PSYCHIATRIC HISTORY: Please note the above. FAMILY HISTORY: Unknown. MEDICAL HISTORY: This patient has a history of: 1. Fibromyalgia. 2. Migraine headaches. 3. Sjogren's syndrome. 4. Systemic lupus erythematosus. 5. Rheumatoid arthritis. 6. Asthma. 7. Gastroesophageal reflux disease (GERD). When she was admitted to the hospital now, she was treated with antibiotics for possible pneumonia. They feel that the metabolic encephalopathy was unclear etiology, maybe due to polypharmacy. SUBSTANCE USE HISTORY: I did not see any referral to any use of drugs or alcohol in any of the prior records. ABUSE HISTORY: Unknown. MENTAL STATUS EXAMINATION: This patient is alert and oriented to person. She was able to tell me today what the year is, but not the month, and she is disoriented to time, as she kept insisting that she was at home. Eye contact was fair. There was no formal thought disorder noted. There was no pressured speech. Affect was flat. She could not describe her mood. I did not elicit any actual psychotic symptoms or any suicidal or homicidal thoughts. Concentration is poor. Unable to test for memory, as she was not cooperative. Insight and judgment is poor. DIAGNOSES: 1. Unspecified psychotic disorder.versus delirium. 2. History of bipolar disorder.3. TREATMENT PLAN: At this point, it is not clear whether the patient is having a decompensation of her psychiatric illness or if this is a delirium, but apparently she is medically cleared and, at this point, there does not seem to be any reason medically that would point to her being in a delirium. I will recommend that we restart the Zyprexa 5 mg twice a day, as she has been on Zyprexa and, before that, even Seroquel. In addition, we will transfer the patient to the psychiatric unit when she is stable and we have a bed available for further stabilization and treatment. I also recommend that we continue the Cymbalta 120 mg at bedtime, Depakote 250 mg twice a day and the Ativan 1 mg every 6 hours as needed for anxiety, but I do recommend that we discontinue the Haldol 1 mg every 6 hours as needed. Of note was that at one point, the patient started to bite the tubing on her IV, and when I asked her why she was doing that, she told me that she was eating a cookie. Again, possibly that could have been a delusion or a symptom of delirium. MTDD
[2021-09-06] MEDS: MONTELUKAST 10 MG TAB PO SCH (20:08)
[2021-09-06] MEDS: DULoxetine 30MG CAPSULE (CYMBALTA) PO SCH (20:10)
[2021-09-06] MEDS ORDERED: LORazepam 2 MG/ML VIAL As Ordered ONE (22:26)
[2021-09-06] MEDS: LORazepam 2 MG/ML VIAL IM PRN (22:31)
--- NOTE | 2021-09-06 22:57 | CR ---
[facility] CONS[facility] DATE: 09/06/2021 REQUESTING PHYSICIAN: Dr. Fer Banegas CONSULTING PHYSICIAN: Dr. Too Wang REASON FOR CONSULTATION: Left heel wound recommendations for treatment and perineal moisture associated skin damage treatment. Wound care telemedicine provides a visual assessment of a wound or wounds without the benefit of physical examination. This can assist with establishing a diagnosis and etiology. This allows for an initial treatment plan. As wounds often change, it may be necessary to modify the original care. Our recommendation is periodic wound reassessment to monitor treatment. Failure to comply may result in non healing of the wound, possible complications and/or a poor outcome. The recommendations given will serve as treatment options. As I will not be following this patient, this care plan will require the attending physician to give and sign the orders. Upon discharge, outpatient follow up can be scheduled at our [facility]. HISTORY OF PRESENT ILLNESS: A 41-year-old non-diabetic female admitted to the hospital for social issues and difficulty in taking care of herself. A detailed history was not obtainable. The patient has a stage 1 pressure injury involving the left heel, and the patient has moisture associated skin damage and or incontinent associated skin damage involving the right and left buttocks areas. TREATMENT SUGGESTIONS: Stage 1 pressure injuries are treated with a protective foam and it is advisable to utilize a heel float boot for offloading purposes. This may or may not be tolerated by the patient as she appears slightly agitated and fidgeting. Additionally, the right heel is at potential risk and a heel float boot can be utilized prophylactically involving the right heel as well, however emphasis is on the left. These can be placed on before bed. in observing the patient, it seems that she uses her heels to push up and re-position herself in bed and moves around excessively. Incontinent associated skin damage in the perineum is differentiated from pressure injuries in that the skin changes are not located over a bony prominence. The treatment is adequate toileting with absorptive pads at all times., Utilizing a wound cleanser such as Vashe or James's Baby Shampoo, then rinsing with saline followed by applying Cavilon advanced skin preparation. This will provide protection for at least 2-3 days and should be repeated as needed. The patient's diet should be supplemented with Ensure and Tree. No indication for antibiotic therapy. MTDD
[2021-09-07] MEDS: haloperidoL 1 MG TAB PO PRN (01:59)
[2021-09-07] MEDS ORDERED: traZODone 25MG PER 1/2 TABLET PO PRN (02:40)
[2021-09-07] MEDS ORDERED: OLANZapine INTRAMUSCULAR 10MG VIAL IM ONE (02:40)
[2021-09-07] MEDS: LEVOTHYROXINE 25MCG TABLET (0.025MG) PO SCH (06:00)
[2021-09-07] MEDS: SUCRALFATE SUSP 1GM/10ML UD PO SCH ×4 (07:30→21:00)
[2021-09-07 07:55] VITALS: BP 129/94
[2021-09-07] MEDS: ASPIRIN 81MG ENTERIC TABLET PO SCH (08:11)
[2021-09-07] MEDS: DIVALPROEX 250 MG TAB PO SCH ×2 (08:11→21:00)
[2021-09-07] MEDS: LACTOBACILLUS ACIDOPHILUS CAP (BACID) PO SCH (08:11)
[2021-09-07] MEDS: PANTOPRAZOLE 40MG TAB (PROTONIX) PO SCH (08:12)
[2021-09-07] MEDS: MAGNESIUM OXIDE 400MG TAB (MAG-OX) PO SCH ×2 (08:12→21:00)
[2021-09-07] MEDS: TAMSULOSIN 0.4 MG CAP PO SCH (08:12)
[2021-09-07] MEDS: OLANZapine ORAL DISINTEGRATING TAB 5MG PO SCH ×2 (08:12→21:00)
[2021-09-07] MEDS: MIRALAX *UNIT DOSE* 17GM PACKET PO SCH (08:12)
[2021-09-07] MEDS: THIAMINE 100 MG TAB PO SCH (08:12)
[2021-09-07] MEDS: ENOXAPARIN 30MG/0.3ML SYRINGE (J1650 PER 10MG) SC SCH (08:12)
[2021-09-07] MEDS: FIBER-CON 625 MG TAB PO SCH ×2 (08:12→21:00)
[2021-09-07] MEDS: HYDROXYCHLOROQUINE 200 MG TAB PO SCH ×2 (08:12→21:00)
--- NOTE | 2021-09-07 09:58 | ECGEPIP ---
[facility] Test Date: 2021-09-07 Pat Name: DESIRAE NAVARRO Department: Room: [place] [address] Gender: Female Science Intern: kyle : 1980 Requested By: ABHIJEET Taylor Order Number: [id number] Reading MD: Tacho Olea Measurements Intervals [place] Rate: 114 P: 79 MN: 140 QRS: 76 QRSD: 78 T: 54 QT: 290 QTc: 399 Interpretive Statements Much artifact Sinus tachycardia Nonspecific T wave abnormality Compared to prior tracing of 07/31/2021, heart rate is faster Electronically Signed on 09-07-2021 9:57:49 EDT by Tacho Olea
[2021-09-07 10:48] LABS: ABG BASE EXCESS 1.9 (-2.0-2.0); ABG O2 SATURATION 99.4 % (95.0-99.0); ABG PARTIAL PRESSURE CO2 33.7 mmHg (35.0-45.0); ABG PARTIAL PRESSURE O2 212.2 mmHg (75.0-100.0); ABG STANDARD HCO3 26.2 MEQ/L (22.0-26.0); ABG pH (ARTERIAL) 7.488 UNITS (7.350-7.450)
[2021-09-07] MEDS: MONTELUKAST 10 MG TAB PO SCH (21:00)
[2021-09-07] MEDS: DULoxetine 30MG CAPSULE (CYMBALTA) PO SCH (21:00)
[2021-09-08 06:00] VITALS: BP 118/73
[2021-09-08] MEDS: LEVOTHYROXINE 25MCG TABLET (0.025MG) PO SCH (06:00)
[2021-09-08 06:55] LABS: HEMOGLOBIN 9.2 g/dl (12.0-15.5); MEAN CORPUSCULAR HEMOGLOBIN 30.6 pg (27.0-33.0); MEAN CORPUSCULAR HGB CONC 32.9 g/dl (32.0-36.5); PLATELET COUNT, AUTOMATED 152 10^3/uL (150-450); RED BLOOD COUNT 3.01 10^6/uL (4.00-5.40); WHITE BLOOD COUNT 7.9 10^3/uL (4.0-10.0)
[2021-09-08 07:03] LABS: ALBUMIN 1.6 GM/DL (3.2-5.2); ALT/SGPT 20 U/L (12-78); BILIRUBIN,TOTAL 0.9 MG/DL (0.2-1.0); BLOOD UREA NITROGEN 6 MG/DL (7-18); CALCIUM LEVEL 7.9 MG/DL (8.5-10.1); CARBON DIOXIDE LEVEL 28 MEQ/L (21-32); CHLORIDE LEVEL 110 MEQ/L (98-107); CREATININE FOR GFR 0.94 MG/DL (0.55-1.30); GLOMERULAR FILTRATION RATE > 60.0 (>58); GLUCOSE, FASTING 60 MG/DL (70-100); POTASSIUM SERUM 3.6 MEQ/L (3.5-5.1); SODIUM LEVEL 148 MEQ/L (136-145); TOTAL PROTEIN 4.3 GM/DL (6.4-8.2)
[2021-09-08 07:58] LABS: BASOPHILS 1 % (0-1); EOSINOPHILS 1 % (0-3); LYMPHOCYTES 17 % (16-44); MONOCYTES 2 % (0-5); NEUTROPHILS 75 % (28-66); PLATELET ESTIMATE NORMAL (NORMAL)
[2021-09-08] MEDS: TAMSULOSIN 0.4 MG CAP PO SCH (08:18)
[2021-09-08] MEDS: ASPIRIN 81MG ENTERIC TABLET PO SCH (08:18)
[2021-09-08] MEDS: DIVALPROEX 250 MG TAB PO SCH ×2 (08:18→20:49)
[2021-09-08] MEDS: FIBER-CON 625 MG TAB PO SCH ×2 (08:18→20:50)
[2021-09-08] MEDS: SUCRALFATE SUSP 1GM/10ML UD PO SCH ×4 (08:18→20:49)
[2021-09-08] MEDS: LACTOBACILLUS ACIDOPHILUS CAP (BACID) PO SCH (08:18)
[2021-09-08] MEDS: ENOXAPARIN 30MG/0.3ML SYRINGE (J1650 PER 10MG) SC SCH (08:18)
[2021-09-08] MEDS: HYDROXYCHLOROQUINE 200 MG TAB PO SCH ×2 (08:19→20:49)
[2021-09-08] MEDS: OLANZapine ORAL DISINTEGRATING TAB 5MG PO SCH ×2 (08:19→20:49)
[2021-09-08] MEDS: THIAMINE 100 MG TAB PO SCH (08:19)
[2021-09-08] MEDS: MAGNESIUM OXIDE 400MG TAB (MAG-OX) PO SCH ×2 (08:19→20:50)
[2021-09-08] MEDS: MIRALAX *UNIT DOSE* 17GM PACKET PO SCH (08:19)
[2021-09-08] MEDS: PANTOPRAZOLE 40MG TAB (PROTONIX) PO SCH (08:19)
[2021-09-08] MEDS: MONTELUKAST 10 MG TAB PO SCH (20:49)
[2021-09-08] MEDS: DULoxetine 30MG CAPSULE (CYMBALTA) PO SCH (20:49)
[2021-09-09] MEDS: LEVOTHYROXINE 25MCG TABLET (0.025MG) PO SCH (05:44)
[2021-09-09] MEDS: LACTOBACILLUS ACIDOPHILUS CAP (BACID) PO SCH (08:35)
[2021-09-09] MEDS: DIVALPROEX 250 MG TAB PO SCH (08:36)
[2021-09-09] MEDS: MIRALAX *UNIT DOSE* 17GM PACKET PO SCH (08:36)
[2021-09-09] MEDS: TAMSULOSIN 0.4 MG CAP PO SCH (08:36)
[2021-09-09] MEDS: THIAMINE 100 MG TAB PO SCH ×2 (08:36→08:47)
[2021-09-09] MEDS: SUCRALFATE SUSP 1GM/10ML UD PO SCH ×2 (08:36→12:00)
[2021-09-09] MEDS: ASPIRIN 81MG ENTERIC TABLET PO SCH (08:36)
[2021-09-09] MEDS: OLANZapine ORAL DISINTEGRATING TAB 5MG PO SCH (08:37)
[2021-09-09] MEDS: MAGNESIUM OXIDE 400MG TAB (MAG-OX) PO SCH (08:37)
[2021-09-09] MEDS: PANTOPRAZOLE 40MG TAB (PROTONIX) PO SCH (08:37)
[2021-09-09] MEDS: HYDROXYCHLOROQUINE 200 MG TAB PO SCH (08:37)
[2021-09-09] MEDS: FIBER-CON 625 MG TAB PO SCH ×2 (08:37→08:47)
[2021-09-09] MEDS: ENOXAPARIN 30MG/0.3ML SYRINGE (J1650 PER 10MG) SC SCH (08:38)
[2021-09-09] MEDS ORDERED: OLAN5ZYD PO (12:25)
--- NOTE | 2021-09-09 19:48 | DS.PDOC ---
Discharge Summary General Date of Admission Jul 30, 2021 at 13:48 Date of Discharge 09/09/21 Discharge Summary PROCEDURES PERFORMED DURING STAY: [None]. ADMITTING DIAGNOSES: Metabolic encephalopathy Bipolar disorder Possible interstitial pneumonia Lactic acidosis Elevated troponin PARAS Rhabdomyolysis Transaminitis / Hyperbilirubinemia Thrombocytopenia Anemia Hypomagnesemia Migraines RA Chronic Asthma Anxiety / Depression / Hx SI / Bipolar / Bulimia DISCHARGE DIAGNOSES: Metabolic encephalopathy Bipolar disorder Possible interstitial pneumonia Lactic acidosis Elevated troponin PARAS Rhabdomyolysis Transaminitis / Hyperbilirubinemia Thrombocytopenia Anemia Hypomagnesemia Migraines RA Chronic Asthma Anxiety / Depression / Hx SI / Bipolar / Bulimia COMPLICATIONS/CHIEF COMPLAINT: Altered Mental Status, Rhabdomyolysis. HISTORY OF PRESENT ILLNESS:Patient is a 41 year old female with a PMHx of extensive Psych history, Migraines, Sjgren's, SLE, RA, HTN, Asthma, Fatty liver disease who presented to the emergency room after they were found on the floor. Patient was admitted to the hospital service for further evaluation, treatment of her confusion suspected to be secondary to medications HOSPITAL COURSE: During the hospital stay the following issues addressed Patient was admitted with metabolic encephalopathy most likely due to polyp harmacy Urine specimen did not show bacterial growth Patient received course of antibiotic therapy empirically Blood culture negative Imaging study negative for acute infection I discontinued gabapentin. Also during hospital stay patient developed multiple times psychosis. Psych team consulted patient and recommended to transfer her to mental health unit for continuation of therapy Bipolar disorder Continue psych medication Lactic acidosis Resolved Possible interstitial pneumonia Patient received a course of antibiotic Patient does not have dyspnea, she is on room air, lungs clear on the auscultation Elevated troponin Troponin trending down Patient denies any chest pain Echo was done and negative for cardiac wall abnormalities DISCHARGE MEDICATIONS: Please see below. ALLERGIES: Please see below. PHYSICAL EXAMINATION ON DISCHARGE: VITAL SIGNS: Please see below. GENERAL APPEARANCE: NAD HEENT: no scleral icterus, no JVD, EOMI CARDIOVASCULAR: S1S2 LUNGS: Diminished lung sounds bilaterally ABDOMEN: soft & not tender w palpation MUSCULOSKELETAL: no cyanosis, no swelling INTEGUMENT: no generalized pallor, Patient's sacral area appears to have a stage I decubitus ulcer with extension into the perineum NEUROLOGICAL: cranial nerve function from 2-12 intact, follows commands, speech not dysarthric LABORATORY DATA: Please see below. PROGNOSIS: Fair ACTIVITY: [As tolerated]. DIET: Regular [facility] ITEMS TO FOLLOWUP ON ON OUTPATIENT: Follow-up with psychiatrist and PCP DISCHARGE CONDITION: [Stable]. TIME SPENT ON DISCHARGE: 40minutes. Vital Signs/I&Os Vital Signs Date Time Temp Pulse Resp B/P (MAP) Pulse Ox O2 Delivery O2 Flow Rate FiO2 09/08/21 06:00 99.0 112 18 118/73 (88) 96 Room Air 09/07/21 09:00 3.0 I&O- Last 24 Hours up to 6 AM 09/09/21 06:00 Intake Total 550 ml Output Total 100 ml Balance 450 ml Laboratory Data Labs 24H Laboratory Tests 2 09/09/21 00:13: Bedside Glucose (Misc Panel) 86 09/09/21 08:35: Bedside Glucose (Misc Panel) 56L 09/09/21 09:31: Bedside Glucose (Misc Panel) 109H 09/09/21 11:40: Bedside Glucose (Misc Panel) 83 FSBS Laboratory Tests Test 09/09/21 00:13 09/09/21 08:35 09/09/21 09:31 09/09/21 11:40 Range/Units Bedside Glucose (Misc Panel) 86 56 109 83 70-105 MG/DL Discharge Medications Scheduled Divalproex Sodium (Divalproex Sodium) 250 Mg Tablet.dr, 250 MG PO BID, (Reported) Duloxetine Hcl (Cymbalta) 60 Mg Capsule.dr, 120 MG PO QHS, (Reported) Fluticasone/Umeclidin/Vilanter (Trelegy Ellipta 100-62.5-25) 1 Each Blst.w.dev, 1 PUFF INH DAILY, (Reported) Hydroxychloroquine Sulfate (Hydroxychloroquine Sulfate) 200 Mg Tablet, 200 MG PO BID, (Reported) Levothyroxine Sodium (Synthroid) 25 Mcg Tablet, 25 MCG PO DAILY, (Reported) Magnesium Oxide (Magnesium Oxide) 400 Mg Tablet, 400 MG PO DAILY, (Reported) Methotrexate Sodium (Methotrexate) 2.5 Mg Tablet, 7.5 MG PO QWEEK, (Reported) MONDAYS Montelukast Sodium (Montelukast Sodium) 10 Mg Tablet, 10 MG PO QHS, (Reported) Olanzapine (Olanzapine Odt) 5 Mg Tab.rapdis, 10 MG PO BID Pantoprazole Sodium (Pantoprazole Sodium) 40 Mg Tablet.dr, 40 MG PO DAILY, (Reported) Pilocarpine HCl (Salagen) 5 Mg Tablet, 5 MG PO TID, (Reported) 1200, 1600, 2000 Potassium Chloride (Potassium Chloride) 10 Meq Capsule.er, 10 MEQ PO BID, ( Reported) Sucralfate (Carafate) 1 Gm Tablet, 1 GM PO ACHS, (Reported) 4 times per day take on an empty stomach Scheduled PRN Albuterol Sulfate (Proair Hfa) 8.5 Gm Hfa.aer.ad, 2 PUFF INH Q4H PRN for SHORTNESS OF BREATH, (Reported) Methocarbamol (Methocarbamol) 500 Mg Tablet, 500 MG PO BID PRN for MUSCLE SPASMS, (Reported) Metoclopramide HCl (Metoclopramide HCl) 10 Mg Tablet, 10 MG PO Q6H PRN for NAUSEA OR VOMITING, (Reported) Ondansetron HCl (Zofran) 4 Mg Tablet, 4 MG PO Q6H PRN for NAUSEA, (Reported) Oxycodone HCl/Acetaminophen (Oxycodone-Acetaminophen 5-325) 1 Each Tablet, 1 TAB PO Q4H PRN for MODERATE PAIN (PS 5-7), (Reported) Sumatriptan Succinate (Sumatriptan Succinate) 50 Mg Tablet, 50 MG PO BID PRN for MIGRAINE, (Reported) Miscellaneous Medications [Patient Comment] , (Reported) MED REC COMPLETED VIA EXTERNAL MED HISTORY AND PREVIOUS DISCHARGE PAPERWORK (07/19/21) Allergies Coded Allergies: Sulfa (Sulfonamide Antibiotics) (Verified Allergy, Intermediate, RASH AND HIVES, 05/18/21) buspirone (Verified Allergy, Intermediate, hives, 05/18/21) cephalexin (Verified Allergy, Intermediate, hives, 05/18/21) erythromycin base (Verified Allergy, Intermediate, hives/rash, 05/18/21) latex (Verified Allergy, Intermediate, hives, 05/18/21) levofloxacin (Verified Allergy, Intermediate, hives/rash, 05/18/21) lisinopril (Verified Allergy, Intermediate, hives/rash, 05/18/21) sulfamethoxazole (Verified Allergy, Intermediate, hives/rash, 05/18/21) eszopiclone (Verified Allergy, Mild, rash, 05/18/21) omeprazole (Verified Allergy, Unknown, 05/18/21) bupropion (Verified Adverse Reaction, Mild, nausea, 05/18/21) trimethoprim (Verified Adverse Reaction, Mild, nausea/vomitting, 05/18/21) YANNI FLORES DO Sep 09, 2021 19:48
== END 2021-09-09 15:40 | DRG 91 ==
LOC: M ED 13:47 → EDBD 13:47 → M ED INP 13:48 → M PCU 07-31 02:35 → M MS5PR 08-04 17:25
PROVIDERS: ADMIT Internal Medicine; ATTEND Internal Medicine
PROC: 02HV33Z Insertion of Infusion Device into Superior Vena Cava, Percutaneous Approach (ICD-10-PCS; principal; 2021-07-31 14:00)
PROC: 30233N1 Transfusion of Nonautologous Red Blood Cells into Peripheral Vein, Percutaneous Approach (ICD-10-PCS; 2021-08-20)
DX: G92.9 Unspecified toxic encephalopathy (principal); J18.9 Pneumonia, unspecified organism; N17.9 Acute kidney failure, unspecified; M62.82 Rhabdomyolysis; E87.0 Hyperosmolality and hypernatremia; E87.2 Acidosis; N39.0 Urinary tract infection, site not specified; I24.8 Other forms of acute ischemic heart disease; Z59.00 Homelessness unspecified; F79 Unspecified intellectual disabilities; F41.9 Anxiety disorder, unspecified; F32.9 Major depressive disorder, single episode, unspecified; Z91.51 Personal history of suicidal behavior; M79.7 Fibromyalgia; G43.909 Migraine, unspecified, not intractable, without status migrainosus; M35.00 Sjogren syndrome, unspecified; M06.9 Rheumatoid arthritis, unspecified; I10 Essential (primary) hypertension; J45.909 Unspecified asthma, uncomplicated; K21.9 Gastro-esophageal reflux disease without esophagitis; K76.0 Fatty (change of) liver, not elsewhere classified; Z90.49 Acquired absence of other specified parts of digestive tract; Z98.84 Bariatric surgery status; Z90.79 Acquired absence of other genital organ(s); R74.01 Elevation of levels of liver transaminase levels; E80.6 Other disorders of bilirubin metabolism; R77.8 Other specified abnormalities of plasma proteins; Z20.822 Contact with and (suspected) exposure to COVID-19; Z79.899 Other long term (current) drug therapy; Z88.1 Allergy status to other antibiotic agents; Z88.2 Allergy status to sulfonamides; Z88.8 Allergy status to other drugs, medicaments and biological substances; Z91.040 Latex allergy status; R41.82 Altered mental status, unspecified; D64.9 Anemia, unspecified; D69.6 Thrombocytopenia, unspecified; E83.42 Hypomagnesemia; E16.2 Hypoglycemia, unspecified; L89.621 Pressure ulcer of left heel, stage 1

== ENCOUNTER 2021-09-09 12:02 | Inpatient (IN) | payer MEDICARE, MEDICAID ==
[~2021-09-09 12:02] MED LIST changes: +PATIENT COMMENT
[2021-09-09] MEDS ORDERED: OLAN5ZYD PO (12:25)
[2021-09-09] MEDS ORDERED: MAALOX 30 ML SUSP *UDC PO PRN (14:35)
[2021-09-09] MEDS ORDERED: ACETAMINOPHEN TAB 650MG DOSE (2X325MG) PO PRN (14:35)
[2021-09-09] MEDS ORDERED: MOM 30ML SUSPENSION UDC PO PRN (14:35)
[2021-09-09] MEDS ORDERED: FIORICET TAB PO PRN (14:45)
[2021-09-09] MEDS ORDERED: SUMAtriptan SUCCINATE 25 MG TAB PO PRN (14:45)
[2021-09-09] MEDS ORDERED: GLUCAGON INJ 1MG VIAL SC PRN ×2 (14:45→16:05)
[2021-09-09] MEDS ORDERED: GLUCOSE 4GM CHEW TABLET PO PRN ×2 (14:45→16:05)
[2021-09-09] MEDS ORDERED: POLYVINYL ALCOHOL OPHTH SOLN 15 ML(LIQUITEARS) OU PRN (14:45)
[2021-09-09] MEDS ORDERED: ALBUTEROL 90 MCG/ACT 8GM HFA INHALER INH PRN (14:45)
[2021-09-09 15:51] VITALS: BP 104/72
[2021-09-09] MEDS ORDERED: HOME MED LIST COMPLETE! XX SCH (15:55)
[2021-09-09] MEDS ORDERED: DEXTROSE 50% 50 ML SYRINGE IV PRN (16:05)
[2021-09-09] MEDS ORDERED: PILL CUTTER 1 EACH XX PRN (16:20)
[2021-09-09] MEDS: SUCRALFATE SUSP 1GM/10ML UD PO SCH ×2 (17:38→21:22)
[2021-09-09] MEDS: DIVALPROEX 250 MG TAB PO SCH (21:22)
[2021-09-09] MEDS: OLANZapine ORAL DISINTEGRATING TAB 5MG PO SCH (21:23)
[2021-09-09] MEDS: DULoxetine 30MG CAPSULE (CYMBALTA) PO SCH (21:23)
[2021-09-09] MEDS: FIBER-CON 625 MG TAB PO SCH (21:23)
[2021-09-09] MEDS: MONTELUKAST 10 MG TAB PO SCH (21:24)
[2021-09-09] MEDS: HYDROXYCHLOROQUINE 200 MG TAB PO SCH (21:24)
[2021-09-09] MEDS: MAGNESIUM OXIDE 400MG TAB (MAG-OX) PO SCH (21:24)
[2021-09-10] MEDS: LEVOTHYROXINE 25MCG TABLET (0.025MG) PO SCH (05:57)
[2021-09-10] MEDS: SUCRALFATE SUSP 1GM/10ML UD PO SCH ×4 (06:45→20:48)
[2021-09-10] MEDS: MIRALAX *UNIT DOSE* 17GM PACKET PO SCH (07:37)
[2021-09-10] MEDS: THIAMINE 100 MG TAB PO SCH (07:38)
[2021-09-10] MEDS: LACTOBACILLUS ACIDOPHILUS CAP (BACID) PO SCH (07:38)
[2021-09-10] MEDS: MAGNESIUM OXIDE 400MG TAB (MAG-OX) PO SCH ×2 (07:38→20:49)
[2021-09-10] MEDS: DIVALPROEX 250 MG TAB PO SCH ×2 (07:38→20:48)
[2021-09-10] MEDS: HYDROXYCHLOROQUINE 200 MG TAB PO SCH ×2 (07:38→20:50)
[2021-09-10] MEDS: OLANZapine ORAL DISINTEGRATING TAB 5MG PO SCH ×2 (07:39→20:49)
[2021-09-10] MEDS: PANTOPRAZOLE 40MG TAB (PROTONIX) PO SCH (07:39)
[2021-09-10] MEDS: TAMSULOSIN 0.4 MG CAP PO SCH (07:39)
[2021-09-10] MEDS: ASPIRIN 81MG ENTERIC TABLET PO SCH (07:39)
[2021-09-10] MEDS: FIBER-CON 625 MG TAB PO SCH ×2 (07:50→20:49)
[2021-09-10 16:12] VITALS: BP 102/69
--- NOTE | 2021-09-10 18:19 | MHHPEPDOC ---
General Date Of Admission: Sep 09, 2021 Legal Status: 9.39 Chief Complaint ". History of Present Illness HISTORY OF THE PRESENT ILLNESS: Patient is a 41 -year-old single, intellectually disabled, domiciled , female, who was admitted from the medical floor after she is found at home on the floor. Patient was upstairs admitted for rhabdomyolysis and metabolic encephalopathy. Patient has a extensive psychiatric history history of polypharmacy and history of overdose. Psychiatric Review of Systems Depression (2 or more weeks): depressed mood Anabel (4 or more days of): denies Psychosis: auditory hallucination, delusions, paranoia PTSD: denies Anxiety: situational anxiety, denies Past Psychiatric History Previous Psychiatric Diagnosis: Bipolar by history, intellectual level disability. Previous Psychiatric Admissions: Multiple admissions to this facility last admission February 2021 Suicide Attempts: History of overdoses Psychiatric Follow-up: [facility] family Psychiatric medications: History of methotrexate, olanzapine cannabis sumatriptan, gabapentin, Xanax, Topamax, duloxetine. Past Medical History Medical Problems Fibromyalgia Migraine headache arthritis Sjogren's syndrome Systemic lupus erythematosus Encephalopathy secondary to polypharmacy Acute kidney injury rhabdomyolysis Surgical Tonsillectomy Hysterectomy Gastric bypass surgery See extensive allergy list: Sulfa, bupropion, buspirone, cephalexin, erythromycin base, eszopiclone, latex, levofloxacin, lisinopril, omeprazole, sulfa, trimethoprim Head Injury: No Seizures: No Hospitalizations: Yes Surgeries: Yes Family Medical/Psychiatric HX Medical Problems Noncontributory Psychiatric Disorders: No Addiction: No Suicide Attemps/Completions: No Addiction History other (Patient has a history of polysubstance abuse) Social History Childhood: Unremarkable. Abuse/Trauma: Per last psychiatric history no history of abuse Current Living Situation: Living in an apartment alone Education: Spatial class Employment: Receives [employer]. Social Support: Minimal support Legal: Denies any history of violence. No known legal history Marital: Was in 2013. Mental Status Examination General Appearance: unkempt, ds/not appear stated age, hospital scubs/clothing (Appears older) Build: thin Demeanor: preoccupied Eye Contact: fair Activity: slowed Behavior: cooperative Speech: normal volume, other (Garbled due to no teeth) Mood: depressed, anxious Affect: flat Thought Process: loose Thought Content (Delusions): paranoia, delusions Thought Content (Other): preoccupied Thought Content (Aggressive): none reported Perception (Hallucinations): auditory Perception (Other): none reported Cognition (Impairment of): attention/concentration Cognition(Intelligence Est.): MR Oriented: Awake, Alert, Oriented times three Insight: poor Judgment: Poor Psychosis: Denies Diagnoses Bipolar by history History of polysubstance abuse A-FIB/CHADSVASC A-FIB History Current/History of A-Fib/PAF?: No Current PO Anticoag Therapy: No Assessment Patient is a 41-year-old single, intellectually disabled, female who was admitted to inpatient psychiatry after she had been on the medical floor for over a month for metabolic encephalopathy and rhabdomyolysis. Patient has a long psychiatric history and continues to be confused, delusional, reporting auditory hallucinations and depression. Patient to be stabilized with current medication regimen. Will attempt to find placement for the patient. Patient had originally been admitted to medical floor after she had been found unresponsive on the floor in her home. Patient at this time is denying suicidal ideations, or that this was a suicide attempt. The patient does have a long polysubstance abuse history. Patient to be afforded individual and group therapy, medication management, milieu therapy, and safe environment. We will discharge when she is stable Initial Treatment Plan 1. Patient was admitted on a [9.39] status. 2. Complete history was obtained. 3. With patients permission, family will be contacted and database will be expanded. 4. Patients medication regimen will be reviewed and changed accordingly. 5. Patient will be provided with protected environment. 6. Patient will be treated with individual, group, and milieu therapies. 7. Patient will receive supportive psych-education. 8. Discharge planning will commence immediately. 9. Outpatient follow-up treatment will be strongly recommended. 10. The initial treatment plan will focus initially on: * Depression. * Risk for suicide. ESTIMATED LENGTH OF STAY: 7-10 DAYS. TIME SPENT COUNSELING AND COORDINATING INITIAL CARE: 60 minutes. Tobacco Cessation Screen If Patient is a Smoker Patient has been in the hospital since early July smoking cessation is not applicable at this time Complete/Results docum. Vital Signs Vital Signs Date Time Temp Pulse Resp B/P (MAP) Pulse Ox O2 Delivery O2 Flow Rate FiO2 09/10/21 16:12 97.9 112 14 102/69 (80) 100 Room Air Laboratory Data 24H Labs Laboratory Tests 2 09/09/21 20:40: Bedside Glucose (Misc Panel) 68L 09/10/21 06:49: Bedside Glucose (Misc Panel) 61L 09/10/21 09:50: Thyroid Stimulating Hormone (TSH) 2.040 09/10/21 12:07: Bedside Glucose (Misc Panel) 79 09/10/21 16:34: Bedside Glucose (Misc Panel) 95 Medications Scheduled Divalproex Sodium (Divalproex Sodium) 250 Mg Tablet.dr, 250 MG PO BID, (Reported) Duloxetine Hcl (Cymbalta) 60 Mg Capsule.dr, 120 MG PO QHS, (Reported) Fluticasone/Umeclidin/Vilanter (Trelegy Ellipta 100-62.5-25) 1 Each Blst.w.dev, 1 PUFF INH DAILY, (Reported) Hydroxychloroquine Sulfate (Hydroxychloroquine Sulfate) 200 Mg Tablet, 200 MG PO BID, (Reported) Levothyroxine Sodium (Synthroid) 25 Mcg Tablet, 25 MCG PO DAILY, (Reported) Magnesium Oxide (Magnesium Oxide) 400 Mg Tablet, 400 MG PO DAILY, (Reported) Methotrexate Sodium (Methotrexate) 2.5 Mg Tablet, 7.5 MG PO QWEEK, (Reported) MONDAYS Montelukast Sodium (Montelukast Sodium) 10 Mg Tablet, 10 MG PO QHS, (Reported) Olanzapine (Olanzapine Odt) 5 Mg Tab.rapdis, 10 MG PO BID Pantoprazole Sodium (Pantoprazole Sodium) 40 Mg Tablet.dr, 40 MG PO DAILY, (Reported) Pilocarpine HCl (Salagen) 5 Mg Tablet, 5 MG PO TID, (Reported) 1200, 1600, 2000 Potassium Chloride (Potassium Chloride) 10 Meq Capsule.er, 10 MEQ PO BID, (Reported) Sucralfate (Carafate) 1 Gm Tablet, 1 GM PO ACHS, (Reported) 4 times per day take on an empty stomach Scheduled PRN Albuterol Sulfate (Proair Hfa) 8.5 Gm Hfa.aer.ad, 2 PUFF INH Q4H PRN for SHORTNESS OF BREATH, (Reported) Methocarbamol (Methocarbamol) 500 Mg Tablet, 500 MG PO BID PRN for MUSCLE SPASMS, (Reported) Metoclopramide HCl (Metoclopramide HCl) 10 Mg Tablet, 10 MG PO Q6H PRN for NAUSEA OR VOMITING, (Reported) Ondansetron HCl (Zofran) 4 Mg Tablet, 4 MG PO Q6H PRN for NAUSEA, (Reported) Oxycodone HCl/Acetaminophen (Oxycodone-Acetaminophen 5-325) 1 Each Tablet, 1 TAB PO Q4H PRN for MODERATE PAIN (PS 5-7), (Reported) Sumatriptan Succinate (Sumatriptan Succinate) 50 Mg Tablet, 50 MG PO BID PRN for MIGRAINE, (Reported) Miscellaneous Medications [Patient Comment] , (Reported) MED REC COMPLETED VIA EXTERNAL MED HISTORY AND PREVIOUS DISCHARGE PAPERWORK (07/19/21) Allergies Coded Allergies: Sulfa (Sulfonamide Antibiotics) (Verified Allergy, Intermediate, RASH AND HIVES, 05/18/21) buspirone (Verified Allergy, Intermediate, hives, 05/18/21) cephalexin (Verified Allergy, Intermediate, hives, 05/18/21) erythromycin base (Verified Allergy, Intermediate, hives/rash, 05/18/21) latex (Verified Allergy, Intermediate, hives, 05/18/21) levofloxacin (Verified Allergy, Intermediate, hives/rash, 05/18/21) lisinopril (Verified Allergy, Intermediate, hives/rash, 05/18/21) sulfamethoxazole (Verified Allergy, Intermediate, hives/rash, 05/18/21) eszopiclone (Verified Allergy, Mild, rash, 05/18/21) omeprazole (Verified Allergy, Unknown, 05/18/21) bupropion (Verified Adverse Reaction, Mild, nausea, 05/18/21) trimethoprim (Verified Adverse Reaction, Mild, nausea/vomitting, 05/18/21) RAMON MURILLO NP Sep 10, 2021 18:19
--- NOTE | 2021-09-10 19:15 | HPEPDOC ---
[facility] Medical History & Physical Date of Admission Sep 10, 2021 Date of Service: Sep 10, 2021 History and Physical CHIEF COMPLAINT: encephalopathy HISTORY OF PRESENT ILLNESS: 41 year old female with a PMHx of extensive Psych history, Migraines, Sjgren's, SLE, RA, HTN, Asthma, Fatty liver disease who presented to the emergency room after they were found on the floor. Patient was admitted to the hospital service for further evaluation, treatment of her confusion suspected to be secondary to medications. PAST MEDICAL HISTORY: Metabolic encephalopathy Bipolar disorder Possible interstitial pneumonia Lactic acidosis Elevated troponin PARAS Rhabdomyolysis Transaminitis / Hyperbilirubinemia Thrombocytopenia Anemia Hypomagnesemia Migraines RA Chronic Asthma Anxiety / Depression / Hx SI / Bipolar / Bulimia PAST SURGICAL HISTORY: 1. [Tonsillectomy and adenoidectomy]. 2. [Gastric bypass]. 3. [Unspec. hernia repair 4. Cholecystectomy 5. Hysterectomy]. SOCIAL HISTORY: reviewed with patient, denies etoh, tobacco, illicits FAMILY HISTORY: reviewed with patient, no pertinent hx provided ALLERGIES: Please see below. REVIEW OF SYSTEMS: 10 point ROS conducted, relevant findings are noted in HPI HOME MEDICATIONS: Please see below. PHYSICAL EXAMINATION: VITAL SIGNS: please see below General: NAD, comfortable HEENT: PERRLA, EOMI, sclerae clear Neck: supple, normal ROM, no JVD Respiratory: lungs CTAB, no wheeze, no rales, no crackles CVS: RRR, normal S1, S2, no murmurs Abdo: soft, no masses, no hepatosplenomegaly, BS+, no rebound tenderness Extremities: no edema, pulses 2+ Skin: moiusture related skin breakdown over buttocks. Stage 1 pressure injury at R heel MSK: no joint deformities, normal ROM Neuro: no focal neuro deficits, moving all 4 extremities, CN2-12 intact. Strength 5/5 in all 4 extremities. No nystagmus. Psych: calm, cooperative, AAO x 3 LABORATORY DATA: See below. MICROBIOLOGY: Please see below. ASSESSMENT: Patient is a 41 year old female with a PMHx of extensive Psych history, Migraines, Sjgren's, SLE, RA, HTN, Asthma, Fatty liver disease who presented to the emergency room after they were found on the floor. Patient was admitted to the hospitalist service for further evaluation, treatment of her confusion suspected to be secondary to medications. Her metabolic encephalopathy improved, but she continues to display occasional episodes of psychosis. She was evaluated by phychiatry service, who deemed an appropriate DC to [facility]. . PLAN: Bipolar/Psychosis: per psychiatry Acute metabolic encephalopathy - has resolved, was likely 2/2 polypharmacy vs UTI s/p Acute toxic encephalopathy - likely 2/2 polypharmacy initially, - s/p Opiates / Zolpidem - Gabapentin was also discontinued R heel stage 1 pressure injury - foam dressing - offloading heel boots Moisture related skin breakdown on buttocks - vashe/baby shampoo, followed by claudia, repeat 2-3 days. Hypothyroid - c/w levothyroxine 25 mcg s/p Possible interstitial pneumonia - Saturating well on room air - completed course of abx Elevated troponin - likely 2/2 demand ischemia, unlikely 2/2 NSTEMI - troponin trended - echo showed no RWMA s/p Rhabdomyolysis s/p Transaminitis / Hyperbilirubinemia - likely 2/2 medications - s/p Methotrexate s/p Thrombocytopenia - No evidence of bleeding - Will continue to follow counts Anemia - hgb stable prior to DC - will check CBC in am. Migraines - c/w sumatriptan RA - c/w Hydroxychloroquine; Will hold Methotrexate - Will have outpatient follow-up with rheumatology for resumption of methotrexate therapy Chronic Asthma - No evidence of exacerbation - c/w Inhaled therapy as ordered GI prophylaxis - c/w Pantoprazole / Sucralfate DVT prophylaxis - ambulation Vital Signs Vital Signs Date Time Temp Pulse Resp B/P (MAP) Pulse Ox O2 Delivery O2 Flow Rate FiO2 09/10/21 16:12 97.9 112 14 102/69 (80) 100 Room Air Laboratory Data Labs 24H Laboratory Tests 2 09/09/21 20:40: Bedside Glucose (Misc Panel) 68L 09/10/21 06:49: Bedside Glucose (Misc Panel) 61L 09/10/21 09:50: Thyroid Stimulating Hormone (TSH) 2.040 09/10/21 12:07: Bedside Glucose (Misc Panel) 79 09/10/21 16:34: Bedside Glucose (Misc Panel) 95 Home Medications Scheduled Divalproex Sodium (Divalproex Sodium) 250 Mg Tablet., 250 MG PO BID Duloxetine Hcl (Cymbalta) 60 Mg Capsule., 120 MG PO QHS Fluticasone/Umeclidin/Vilanter (Trelegy Ellipta 100-62.5-25) 1 Each Blst.w.dev, 1 PUFF INH DAILY Hydroxychloroquine Sulfate (Hydroxychloroquine Sulfate) 200 Mg Tablet, 200 MG PO BID Levothyroxine Sodium (Synthroid) 25 Mcg Tablet, 25 MCG PO DAILY Magnesium Oxide (Magnesium Oxide) 400 Mg Tablet, 400 MG PO DAILY Methotrexate Sodium (Methotrexate) 2.5 Mg Tablet, 7.5 MG PO QWEEK MONDAYS Montelukast Sodium (Montelukast Sodium) 10 Mg Tablet, 10 MG PO QHS Olanzapine (Olanzapine Odt) 5 Mg Tab.rapdis, 10 MG PO BID Pantoprazole Sodium (Pantoprazole Sodium) 40 Mg Tablet.dr, 40 MG PO DAILY Pilocarpine HCl (Salagen) 5 Mg Tablet, 5 MG PO TID 1200, 1600, 2000 Potassium Chloride (Potassium Chloride) 10 Meq Capsule.er, 10 MEQ PO BID Sucralfate (Carafate) 1 Gm Tablet, 1 GM PO ACHS 4 times per day take on an empty stomach Scheduled PRN Albuterol Sulfate (Proair Hfa) 8.5 Gm Hfa.aer.ad, 2 PUFF INH Q4H PRN for SHORTNESS OF BREATH Methocarbamol (Methocarbamol) 500 Mg Tablet, 500 MG PO BID PRN for MUSCLE SPASMS Metoclopramide HCl (Metoclopramide HCl) 10 Mg Tablet, 10 MG PO Q6H PRN for NAUSEA OR VOMITING Ondansetron HCl (Zofran) 4 Mg Tablet, 4 MG PO Q6H PRN for NAUSEA Oxycodone HCl/Acetaminophen (Oxycodone-Acetaminophen 5-325) 1 Each Tablet, 1 TAB PO Q4H PRN for MODERATE PAIN (PS 5-7) Sumatriptan Succinate (Sumatriptan Succinate) 50 Mg Tablet, 50 MG PO BID PRN for MIGRAINE Miscellaneous Medications [Patient Comment] MED REC COMPLETED VIA EXTERNAL MED HISTORY AND PREVIOUS DISCHARGE PAPERWORK (07/19/21) Allergies Coded Allergies: Sulfa (Sulfonamide Antibiotics) (Verified Allergy, Intermediate, RASH AND HIVES, 05/18/21) buspirone (Verified Allergy, Intermediate, hives, 05/18/21) cephalexin (Verified Allergy, Intermediate, hives, 05/18/21) erythromycin base (Verified Allergy, Intermediate, hives/rash, 05/18/21) latex (Verified Allergy, Intermediate, hives, 05/18/21) levofloxacin (Verified Allergy, Intermediate, hives/rash, 05/18/21) lisinopril (Verified Allergy, Intermediate, hives/rash, 05/18/21) sulfamethoxazole (Verified Allergy, Intermediate, hives/rash, 05/18/21) eszopiclone (Verified Allergy, Mild, rash, 05/18/21) omeprazole (Verified Allergy, Unknown, 05/18/21) bupropion (Verified Adverse Reaction, Mild, nausea, 05/18/21) trimethoprim (Verified Adverse Reaction, Mild, nausea/vomitting, 05/18/21) TIFFANY VILLAGOMEZ MD Sep 10, 2021 19:15
[2021-09-10] MEDS: MONTELUKAST 10 MG TAB PO SCH (20:48)
[2021-09-10] MEDS: traZODone 50 MG TAB PO PRN (20:48)
[2021-09-10] MEDS: DULoxetine 30MG CAPSULE (CYMBALTA) PO SCH (20:48)
[2021-09-11] MEDS: SUCRALFATE SUSP 1GM/10ML UD PO SCH ×4 (06:33→21:36)
[2021-09-11] MEDS: LEVOTHYROXINE 25MCG TABLET (0.025MG) PO SCH (06:33)
[2021-09-11 06:40] VITALS: BP 117/82
[2021-09-11] MEDS: MIRALAX *UNIT DOSE* 17GM PACKET PO SCH (07:31)
[2021-09-11] MEDS: OLANZapine ORAL DISINTEGRATING TAB 5MG PO SCH ×2 (07:31→21:37)
[2021-09-11] MEDS: LACTOBACILLUS ACIDOPHILUS CAP (BACID) PO SCH (07:31)
[2021-09-11] MEDS: ASPIRIN 81MG ENTERIC TABLET PO SCH (07:33)
[2021-09-11] MEDS: TAMSULOSIN 0.4 MG CAP PO SCH (07:33)
[2021-09-11] MEDS: FIBER-CON 625 MG TAB PO SCH ×2 (07:33→21:00)
[2021-09-11] MEDS: THIAMINE 100 MG TAB PO SCH (07:33)
[2021-09-11] MEDS: HYDROXYCHLOROQUINE 200 MG TAB PO SCH ×2 (07:33→21:36)
[2021-09-11] MEDS: MAGNESIUM OXIDE 400MG TAB (MAG-OX) PO SCH ×2 (07:33→21:37)
[2021-09-11] MEDS: PANTOPRAZOLE 40MG TAB (PROTONIX) PO SCH (07:34)
[2021-09-11] MEDS: DIVALPROEX 250 MG TAB PO SCH ×2 (07:34→21:37)
[2021-09-11 08:51] LABS: BASO # 0.1 10^3/uL (0.0-0.2); BASO % 1.2 % (0.0-1.0); HEMATOCRIT 29.1 % (36.0-47.0); HEMOGLOBIN 9.5 g/dl (12.0-15.5); LYMPH # 2.4 10^3/uL (1.5-5.0); LYMPH % 49.4 % (24.0-44.0); MEAN CORPUSCULAR HEMOGLOBIN 30.2 pg (27.0-33.0); MEAN CORPUSCULAR HGB CONC 32.6 g/dl (32.0-36.5); MEAN CORPUSCULAR VOLUME 92.4 fl (80.0-96.0); MONO # 0.4 10^3/uL (0.0-0.8); MONO % 8.8 % (2.0-8.0); NEUTROPHILS % 40.6 % (36.0-66.0); PLATELET COUNT, AUTOMATED 139 10^3/uL (150-450); RED BLOOD COUNT 3.15 10^6/uL (4.00-5.40); WHITE BLOOD COUNT 4.9 10^3/uL (4.0-10.0)
[2021-09-11 09:21] LABS: ALBUMIN 1.8 GM/DL (3.2-5.2); BILIRUBIN,TOTAL 0.9 MG/DL (0.2-1.0); CALCIUM LEVEL 8.5 MG/DL (8.5-10.1); CREATININE FOR GFR 1.24 MG/DL (0.55-1.30); GLOMERULAR FILTRATION RATE 50.3 (>58); MAGNESIUM LEVEL 2.2 MG/DL (1.8-2.4); POTASSIUM SERUM 3.1 MEQ/L (3.5-5.1); TOTAL PROTEIN 4.7 GM/DL (6.4-8.2)
--- NOTE | 2021-09-11 15:52 | MHIPNPDOC ---
[facility] Progress Note Progress Note DATE OF SERVICE: 09/11/21 HISTORY: Patient is a 41 -year-old single, intellectually disabled, domiciled , female, who was admitted from the medical floor after she is found at home on the floor. Patient was upstairs admitted for rhabdomyolysis and metabolic encephalopathy. Patient has a extensive psychiatric history of polypharmacy and history of overdose. VITAL SIGNS: See below. NEW TEST RESULTS: None CURRENT MEDICATIONS: See below. MENTAL STATUS EXAMINATION: la nena is a 41 -year-old single, intellectually disabled, domiciled , female, who was admitted from the medical floor after she is found at home on the floor. Patient was upstairs admitted for rhabdomyolysis and metabolic encephalopathy. Patient has a extensive psychiatric history of polypharmacy and history of overdose. Dressed appropriately, fair hygiene and grooming, fair eye contact Speech: Is normal rate tone and volume, slurred due to no dental appliance in place Language skills are intact Thought processes including: Incoherent, loose associations Thought content: Denies suicidal or homicidal ideations, admits to some depression and anxiety. Abstract reasoning, and computation: Poor due to patient's intellectual functioning description of associations patient is confused Description of abnormal or psychotic thoughts: Patient has delusional thinking states that her mother is going to pick her up and is waiting for her in they are flying today, states that she needs to go upstairs, but is aware of the year it is and the month Judgment: Limited Insight: Limited Orientation: Oriented to person and place. Recent and remote memory: Fair Attention span and concentration: Fair. Language: Urdu, mildly expansive Fund of knowledge: Below average. Mood: Neutral affect: Flat. DIAGNOSES: Bipolar by history History of polysubstance abuse Intellectual disability ASSESSMENT: Patient found in her room sitting on her bed, states that she is waiting for her mother because she is flying out today. When asked where she is she states that she is at her home. Denies that she is in the hospital. Patient remains delusional, confused, is a poor historian. She reports de pression and anxiety although cannot report any of her depressive symptoms. Patient has a history of polysubstance abuse history and is intellectually disabled MANAGEMENT PLAN: Continue all medications as ordered, supportive therapy as ordered. Will discharge when stable. Possibly will need to be placed in assisted living or care home TIME SPENT: 25 minutes. Vital Signs Vital Signs Date Time Temp Pulse Resp B/P (MAP) Pulse Ox O2 Delivery O2 Flow Rate FiO2 09/11/21 06:40 98.1 95 18 117/82 (94) 96 Room Air Laboratory Data 24H Labs Laboratory Tests 2 09/10/21 16:34: Bedside Glucose (Misc Panel) 95 09/10/21 21:02: Bedside Glucose (Misc Panel) 145H 09/11/21 06:18: Bedside Glucose (Misc Panel) 57L 09/11/21 07:00: Bedside Glucose (Misc Panel) 75 09/11/21 08:36: Immature Granulocyte % (Auto) 0.0, Neutrophils (%) (Auto) 40.6, Lymphocytes (%) (Auto) 49.4H, Monocytes (%) (Auto) 8.8H, Eosinophils (%) (Auto) 0.0, Basophils (%) (Auto) 1.2H, Neutrophils # (Auto) 2.0, Lymphocytes # (Auto) 2.4, Monocytes # (Auto) 0.4, Eosinophils # (Auto) 0.0, Basophils # (Auto) 0.1, Nucleated Red Blood Cells % (auto) 0.0, Anion Gap 7L, Glomerular Filtration Rate 50.3L, Calcium Level 8.5, Magnesium Level 2.2, Total Bilirubin 0.9, Aspartate Amino Transf (AST/SGOT) 46H, Alanine Aminotransferase (ALT/SGPT) 20, Alkaline Phosphatase 146H, Total Protein 4.7L, Albumin 1.8L, Albumin/Globulin Ratio 0.6L 09/11/21 11:39: Bedside Glucose (Misc Panel) 119H CBC/BMP Laboratory Tests 09/11/21 08:36 Current Medications Current Medications Medications (Trade) Dose Ordered Sig/Ninfa Route PRN Reason Start Time Stop Time Status Last Admin Dose Admin Acetaminophen (Tylenol Tab) 650 mg Q6HP PRN PO MILD DISCOMFORT 09/09/21 14:35 Acetaminophen/ Butalbital/ Caffeine (Fioricet) 1 ea Q6HP PRN PO HEADACHE 09/09/21 14:45 Al Hydrox/Mg Hydrox/Simethicone (Mylanta) 30 ml Q4HP PRN PO HEARTBURN/INDIGESTION 09/09/21 14:35 Albuterol Sulfate (Proventil, Ventolin Hfa) 2 puff Q4HP PRN INH SHORTNESS OF BREATH 09/09/21 14:45 Artificial Tears (Akwa Tears) 2 drop TIDP PRN OU DRY EYES 09/09/21 14:45 Aspirin (Ecotrin) 81 mg DAILY PO 09/10/21 09:00 09/11/21 07:33 Calcium Polycarbophil (Fiber Con) 2 ea BID PO 09/09/21 21:00 09/11/21 07:33 Dextrose (Dextrose 50%) 25 ml ASDIRECTED PRN IV SEE LABEL COMMENTS 09/09/21 16:05 UNV Divalproex Sodium (Depakote) 250 mg BID PO 09/09/21 21:00 09/11/21 07:34 Duloxetine HCl (Cymbalta) 120 mg QHS PO 09/09/21 21:00 09/10/21 20:48 Glucagon (Glucagon) 1 mg ASDIRECTED PRN SC SEE LABEL COMMENTS 09/09/21 14:45 09/09/21 17:04 DC Glucagon (Glucagon) 1 mg ASDIRECTED PRN SC SEE LABEL COMMENTS 09/09/21 16:05 Glucose (Glucose) 16 GM ASDIRECTED PRN PO SEE LABEL COMMENTS 09/09/21 16:05 Glucose (Glucose) 16 gm ASDIRECTED PRN PO SEE LABEL COMMENTS 09/09/21 14:45 09/09/21 17:05 DC Home Med (Home Med List Complete!) ASDIRECTED XX 09/09/21 15:55 09/09/21 15:57 DC Hydroxychloroquine Sulfate (Plaquenil) 200 mg BID PO 09/09/21 21:00 09/11/21 07:33 Lactobacillus Acidophilus (Bacid) 1 ea DAILY PO 09/10/21 09:00 09/11/21 07:31 Levothyroxine Sodium (Synthroid) 25 mcg DAILY@06 PO 09/10/21 06:00 09/11/21 06:33 Magnesium Hydroxide (Milk Of Magnesia) 30 ml DAILYPRN PRN PO CONSTIPATION 09/09/21 14:35 Magnesium Oxide (Mag-Ox) 800 mg BID PO 09/09/21 21:00 09/11/21 07:33 Montelukast Sodium (Singulair) 10 mg QHS PO 09/09/21 21:00 09/10/21 20:48 Olanzapine (ZyPREXA ZYDIS) 10 mg BID PO 09/09/21 21:00 09/11/21 07:31 Pantoprazole Sodium (Protonix) 40 mg DAILY PO 09/10/21 09:00 09/11/21 07:34 Polyethylene Glycol (Miralax) 1 pkt DAILY PO 09/10/21 09:00 09/11/21 07:31 Potassium Chloride (Micro-K Extencaps) 40 meq BID PO 09/11/21 21:00 09/13/21 09:01 Sucralfate (Carafate Suspension) 1 gm ACHS PO 09/09/21 17:30 09/11/21 11:37 Sumatriptan Succinate (Imitrex) 50 mg BIDP PRN PO MIGRAINE 09/09/21 14:45 Tamsulosin HCl (Flomax) 0.8 mg DAILY PO 09/10/21 09:00 09/11/21 07:33 Thiamine HCl (Thiamine HCl) 100 mg DAILY PO 09/10/21 09:00 09/11/21 07:33 Trazodone HCl (Desyrel) 50 mg QHSP PRN PO INSOMNIA 09/09/21 14:35 09/10/21 20:48 Allergies Coded Allergies: Sulfa (Sulfonamide Antibiotics) (Verified Allergy, Intermediate, RASH AND HIVES, 05/18/21) buspirone (Verified Allergy, Intermediate, hives, 05/18/21) cephalexin (Verified Allergy, Intermediate, hives, 05/18/21) erythromycin base (Verified Allergy, Intermediate, hives/rash, 05/18/21) latex (Verified Allergy, Intermediate, hives, 05/18/21) levofloxacin (Verified Allergy, Intermediate, hives/rash, 05/18/21) lisinopril (Verified Allergy, Intermediate, hives/rash, 05/18/21) sulfamethoxazole (Verified Allergy, Intermediate, hives/rash, 05/18/21) eszopiclone (Verified Allergy, Mild, rash, 05/18/21) omeprazole (Verified Allergy, Unknown, 05/18/21) bupropion (Verified Adverse Reaction, Mild, nausea, 05/18/21) trimethoprim (Verified Adverse Reaction, Mild, nausea/vomitting, 05/18/21) RAMON MURILLO NP Sep 11, 2021 15:52
[2021-09-11 16:25] VITALS: BP 122/72
[2021-09-11] MEDS: MONTELUKAST 10 MG TAB PO SCH (21:36)
[2021-09-11] MEDS: POTASSIUM CHLORIDE 10MEQ SR TABLET PO SCH (21:37)
[2021-09-11] MEDS: DULoxetine 30MG CAPSULE (CYMBALTA) PO SCH (21:37)
[2021-09-12] MEDS: LEVOTHYROXINE 25MCG TABLET (0.025MG) PO SCH (06:31)
[2021-09-12] MEDS: SUCRALFATE SUSP 1GM/10ML UD PO SCH ×4 (06:32→21:36)
[2021-09-12 06:55] VITALS: BP 128/61
[2021-09-12] MEDS: FIBER-CON 625 MG TAB PO SCH ×2 (08:50→21:37)
[2021-09-12] MEDS: POTASSIUM CHLORIDE 10MEQ SR TABLET PO SCH ×2 (08:50→21:37)
[2021-09-12] MEDS: MIRALAX *UNIT DOSE* 17GM PACKET PO SCH (08:50)
[2021-09-12] MEDS: TAMSULOSIN 0.4 MG CAP PO SCH (08:50)
[2021-09-12] MEDS: ASPIRIN 81MG ENTERIC TABLET PO SCH (08:51)
[2021-09-12] MEDS: LACTOBACILLUS ACIDOPHILUS CAP (BACID) PO SCH (08:51)
[2021-09-12] MEDS: PANTOPRAZOLE 40MG TAB (PROTONIX) PO SCH (08:51)
[2021-09-12] MEDS: DIVALPROEX 250 MG TAB PO SCH ×2 (08:51→21:38)
[2021-09-12] MEDS: MAGNESIUM OXIDE 400MG TAB (MAG-OX) PO SCH ×2 (08:51→21:36)
[2021-09-12] MEDS: HYDROXYCHLOROQUINE 200 MG TAB PO SCH ×2 (08:51→21:37)
[2021-09-12] MEDS: OLANZapine ORAL DISINTEGRATING TAB 5MG PO SCH ×2 (08:52→21:37)
[2021-09-12] MEDS: THIAMINE 100 MG TAB PO SCH (08:52)
[2021-09-12 11:10] VITALS: BP 128/61
--- NOTE | 2021-09-12 11:58 | MHIPNPDOC ---
[facility] Progress Note Progress Note DATE OF SERVICE: 09/12/21 HISTORY: Patient is a 41 -year-old single, intellectually disabled, domiciled , female, who was admitted from the medical floor after she is found at home on the floor. Patient was upstairs admitted for rhabdomyolysis and metabolic encephalopathy. Patient has a extensive psychiatric history of polypharmacy and history of overdose. VITAL SIGNS: See below. NEW TEST RESULTS: None CURRENT MEDICATIONS: See below. MENTAL STATUS EXAMINATION: la nena is a 41 -year-old single, intellectually disabled, domiciled , female, who was admitted from the medical floor after she is found at home on the floor. Patient was upstairs admitted for rhabdomyolysis and metabolic encephalopathy. Patient has a extensive psychiatric history of polypharmacy and history of overdose. Dressed appropriately, fair hygiene and grooming, fair eye contact Speech: Is normal rate tone and volume, slurred due to no dental appliance in place Language skills are intact Thought processes including: Incoherent, loose associations Thought content: Denies suicidal or homicidal ideations, reports depression and anxiety. Abstract reasoning, and computation: Poor due to patient's intellectual functioning description of associations patient is confused Description of abnormal or psychotic thoughts: argumentative about the day states it is [place]. Judgment: Limited Insight: Limited Orientation: Oriented to person and place. Recent and remote memory: Fair Attention span and concentration: Fair. Language: Romansh, mildly expansive Fund of knowledge: Below average. Mood: Labile affect: Flat. DIAGNOSES: Bipolar by history History of polysubstance abuse Intellectual disability Delirium 2nd to Metabolic Encephalopathy ASSESSMENT: Patient eating her breakfast and is alert and oriented to self and place. Accurately recalled the day and month but not the year. States that it is September 12, 2025. Then became argumentative and stated that she was admitted to the hospital because her tongue was burning. She then became very agitated and began yelling stating that it was [place] last night and today is [place] day. States that she does not want to talk to this provider because she is being lied to. She remains delusional this appears to be delirium as her delusions are waxing and waning throughout the day. She has periods of lucidity and then disorganized thinking and cognitive dysfunction throughout the day. MANAGEMENT PLAN: Continue all medications as ordered, supportive therapy as ordered. Will discharge when stable. Possibly will need to be placed in assisted living or shelter TIME SPENT: 25 minutes. Vital Signs Vital Signs Date Time Temp Pulse Resp B/P (MAP) Pulse Ox O2 Delivery O2 Flow Rate FiO2 09/12/21 11:10 97.8 92 18 128/61 100 Room Air Laboratory Data 24H Labs Laboratory Tests 2 09/11/21 11:39: Bedside Glucose (Misc Panel) 119H 09/11/21 16:43: Bedside Glucose (Misc Panel) 94 09/11/21 21:34: Bedside Glucose (Misc Panel) 96 09/12/21 06:36: Bedside Glucose (Misc Panel) 55L 09/12/21 07:02: Bedside Glucose (Misc Panel) 76 09/12/21 11:25: Bedside Glucose (Misc Panel) 86 Current Medications Current Medications Medications (Trade) Dose Ordered Sig/Ninfa Route PRN Reason Start Time Stop Time Status Last Admin Dose Admin Acetaminophen (Tylenol Tab) 650 mg Q6HP PRN PO MILD DISCOMFORT 09/09/21 14:35 Acetaminophen/ Butalbital/ Caffeine (Fioricet) 1 ea Q6HP PRN PO HEADACHE 09/09/21 14:45 Al Hydrox/Mg Hydrox/Simethicone (Mylanta) 30 ml Q4HP PRN PO HEARTBURN/INDIGESTION 09/09/21 14:35 Albuterol Sulfate (Proventil, Ventolin Hfa) 2 puff Q4HP PRN INH SHORTNESS OF BREATH 09/09/21 14:45 Artificial Tears (Akwa Tears) 2 drop TIDP PRN OU DRY EYES 09/09/21 14:45 Aspirin (Ecotrin) 81 mg DAILY PO 09/10/21 09:00 09/12/21 08:51 Calcium Polycarbophil (Fiber Con) 2 ea BID PO 09/09/21 21:00 09/12/21 08:50 Dextrose (Dextrose 50%) 25 ml ASDIRECTED PRN IV SEE LABEL COMMENTS 09/09/21 16:05 UNV Divalproex Sodium (Depakote) 250 mg BID PO 09/09/21 21:00 09/12/21 08:51 Duloxetine HCl (Cymbalta) 120 mg QHS PO 09/09/21 21:00 09/11/21 21:37 Glucagon (Glucagon) 1 mg ASDIRECTED PRN SC SEE LABEL COMMENTS 09/09/21 14:45 09/09/21 17:04 DC Glucagon (Glucagon) 1 mg ASDIRECTED PRN SC SEE LABEL COMMENTS 09/09/21 16:05 Glucose (Glucose) 16 GM ASDIRECTED PRN PO SEE LABEL COMMENTS 09/09/21 16:05 Glucose (Glucose) 16 gm ASDIRECTED PRN PO SEE LABEL COMMENTS 09/09/21 14:45 09/09/21 17:05 DC Home Med (Home Med List Complete!) ASDIRECTED XX 09/09/21 15:55 09/09/21 15:57 DC Hydroxychloroquine Sulfate (Plaquenil) 200 mg BID PO 09/09/21 21:00 09/12/21 08:51 Lactobacillus Acidophilus (Bacid) 1 ea DAILY PO 09/10/21 09:00 09/12/21 08:51 Levothyroxine Sodium (Synthroid) 25 mcg DAILY@06 PO 09/10/21 06:00 09/12/21 06:31 Magnesium Hydroxide (Milk Of Magnesia) 30 ml DAILYPRN PRN PO CONSTIPATION 09/09/21 14:35 Magnesium Oxide (Mag-Ox) 800 mg BID PO 09/09/21 21:00 09/12/21 08:51 Montelukast Sodium (Singulair) 10 mg QHS PO 09/09/21 21:00 09/11/21 21:36 Olanzapine (ZyPREXA ZYDIS) 10 mg BID PO 09/09/21 21:00 09/12/21 08:52 Pantoprazole Sodium (Protonix) 40 mg DAILY PO 09/10/21 09:00 09/12/21 08:51 Polyethylene Glycol (Miralax) 1 pkt DAILY PO 09/10/21 09:00 09/12/21 08:50 Potassium Chloride (Micro-K Extencaps) 40 meq BID PO 09/11/21 21:00 09/13/21 09:01 09/12/21 08:50 Sucralfate (Carafate Suspension) 1 gm ACHS PO 09/09/21 17:30 09/12/21 11:28 Sumatriptan Succinate (Imitrex) 50 mg BIDP PRN PO MIGRAINE 09/09/21 14:45 Tamsulosin HCl (Flomax) 0.8 mg DAILY PO 09/10/21 09:00 09/12/21 08:50 Thiamine HCl (Thiamine HCl) 100 mg DAILY PO 09/10/21 09:00 09/12/21 08:52 Trazodone HCl (Desyrel) 50 mg QHSP PRN PO INSOMNIA 09/09/21 14:35 09/10/21 20:48 Allergies Coded Allergies: Sulfa (Sulfonamide Antibiotics) (Verified Allergy, Intermediate, RASH AND HIVES, 05/18/21) buspirone (Verified Allergy, Intermediate, hives, 05/18/21) cephalexin (Verified Allergy, Intermediate, hives, 05/18/21) erythromycin base (Verified Allergy, Intermediate, hives/rash, 05/18/21) latex (Verified Allergy, Intermediate, hives, 05/18/21) levofloxacin (Verified Allergy, Intermediate, hives/rash, 05/18/21) lisinopril (Verified Allergy, Intermediate, hives/rash, 05/18/21) sulfamethoxazole (Verified Allergy, Intermediate, hives/rash, 05/18/21) eszopiclone (Verified Allergy, Mild, rash, 05/18/21) omeprazole (Verified Allergy, Unknown, 05/18/21) bupropion (Verified Adverse Reaction, Mild, nausea, 05/18/21) trimethoprim (Verified Adverse Reaction, Mild, nausea/vomitting, 05/18/21) RAMON MURILLO NP Sep 12, 2021 11:58
[2021-09-12 15:27] VITALS: BP 110/60
[2021-09-12] MEDS: MONTELUKAST 10 MG TAB PO SCH (21:37)
[2021-09-12] MEDS: DULoxetine 30MG CAPSULE (CYMBALTA) PO SCH (21:37)
[2021-09-13] MEDS: SUCRALFATE SUSP 1GM/10ML UD PO SCH ×4 (06:32→20:51)
[2021-09-13] MEDS: LEVOTHYROXINE 25MCG TABLET (0.025MG) PO SCH (06:32)
[2021-09-13 06:33] VITALS: BP 105/62
[2021-09-13] MEDS: LACTOBACILLUS ACIDOPHILUS CAP (BACID) PO SCH (07:44)
[2021-09-13] MEDS: DIVALPROEX 250 MG TAB PO SCH ×2 (07:44→20:51)
[2021-09-13] MEDS: FIBER-CON 625 MG TAB PO SCH ×2 (07:45→20:52)
[2021-09-13] MEDS: POTASSIUM CHLORIDE 10MEQ SR TABLET PO SCH (07:45)
[2021-09-13] MEDS: OLANZapine ORAL DISINTEGRATING TAB 5MG PO SCH ×2 (07:46→20:52)
[2021-09-13] MEDS: THIAMINE 100 MG TAB PO SCH (07:46)
[2021-09-13] MEDS: MIRALAX *UNIT DOSE* 17GM PACKET PO SCH (07:46)
[2021-09-13] MEDS: HYDROXYCHLOROQUINE 200 MG TAB PO SCH ×2 (08:17→20:52)
[2021-09-13] MEDS: PANTOPRAZOLE 40MG TAB (PROTONIX) PO SCH (08:17)
[2021-09-13] MEDS: ASPIRIN 81MG ENTERIC TABLET PO SCH (09:00)
[2021-09-13] MEDS: MAGNESIUM OXIDE 400MG TAB (MAG-OX) PO SCH ×2 (09:00→20:54)
[2021-09-13] MEDS: TAMSULOSIN 0.4 MG CAP PO SCH (09:00)
--- NOTE | 2021-09-13 10:37 | MHIPNPDOC ---
[facility] Progress Note Progress Note DATE OF SERVICE: 09/13/21 HISTORY: HISTORY: Patient is a 41 -year-old single, intellectually disabled, domiciled , female, who was admitted from the medical floor after she is found at home on the floor. Patient was upstairs admitted for rhabdomyolysis and metabolic encephalopathy. Patient has a extensive psychiatric history of polypharmacy and history of overdose. VITAL SIGNS: See below. NEW TEST RESULTS: UA order today CURRENT MEDICATIONS: See below. MENTAL STATUS EXAMINATION: la nena is a 41 -year-old single, intellectually disabled, domiciled , female, who was admitted from the medical floor after she is found at home on the floor. Patient was upstairs admitted for rhabdomyolysis and metabolic encephalopathy. Patient has a extensive psychiatric history of polypharmacy and history of overdose. Dressed appropriately, fair hygiene and grooming, fair eye contact Speech: Is more slurred today Language skills are intact Thought processes including: Incoherent, loose associations Thought content: Denies suicidal or homicidal ideations, incoherent Abstract reasoning, and computation: Poor due to patient's intellectual functioning de scription of associations patient is confused Description of abnormal or psychotic thoughts: argumentative about the day states it is [place]. Judgment: Limited Insight: Limited Orientation: Oriented to person and place. Recent and remote memory: Fair Attention span and concentration: Fair. Language: Georgian, mildly expansive Fund of knowledge: Below average. Mood: Drowsy affect: Flat. DIAGNOSES: Bipolar by history History of polysubstance abuse Intellectual disability Delirium 2nd to Metabolic Encephalopathy ASSESSMENT: Patient eating her breakfast and falling asleep. Lying on her side while sitting. Speech is garbled and and not able to be understood. Patient's orientation and alertness is again waxing and waning throughout the day. She makes delusional statements but there are other times that she is very lucid. Patient has not been observed to be having any symptoms that are part bipolar in nature. Many of her symptoms point to delirium secondary to metabolic en cephalopathy. Imaging shows that she has possible dementia. MANAGEMENT PLAN: Continue all medications as ordered, supportive therapy as ordered. Will discharge when stable. Possibly will need to be placed in assisted living or prison TIME SPENT: 25 minutes. Vital Signs Vital Signs Date Time Temp Pulse Resp B/P (MAP) Pulse Ox O2 Delivery O2 Flow Rate FiO2 09/13/21 06:33 98.1 99 18 105/62 (76) 95 Room Air Laboratory Data 24H Labs Laboratory Tests 2 09/12/21 11:25: Bedside Glucose (Misc Panel) 86 09/12/21 16:46: Bedside Glucose (Misc Panel) 82 09/12/21 21:34: Bedside Glucose (Misc Panel) 105 09/13/21 06:39: Bedside Glucose (Misc Panel) 62L 09/13/21 07:06: Bedside Glucose (Misc Panel) 80 Current Medications Current Medications Medications (Trade) Dose Ordered Sig/Ninfa Route PRN Reason Start Time Stop Time Status Last Admin Dose Admin Acetaminophen (Tylenol Tab) 650 mg Q6HP PRN PO MILD DISCOMFORT 09/09/21 14:35 Acetaminophen/ Butalbital/ Caffeine (Fioricet) 1 ea Q6HP PRN PO HEADACHE 09/09/21 14:45 Al Hydrox/Mg Hydrox/Simethicone (Mylanta) 30 ml Q4HP PRN PO HEARTBURN/INDIGESTION 09/09/21 14:35 Albuterol Sulfate (Proventil, Ventolin Hfa) 2 puff Q4HP PRN INH SHORTNESS OF BREATH 09/09/21 14:45 Artificial Tears (Akwa Tears) 2 drop TIDP PRN OU DRY EYES 09/09/21 14:45 Aspirin (Ecotrin) 81 mg DAILY PO 09/10/21 09:00 09/12/21 08:51 Calcium Polycarbophil (Fiber Con) 2 ea BID PO 09/09/21 21:00 09/13/21 07:45 Dextrose (Dextrose 50%) 25 ml ASDIRECTED PRN IV SEE LABEL COMMENTS 09/09/21 16:05 UNV Divalproex Sodium (Depakote) 250 mg BID PO 09/09/21 21:00 09/13/21 07:44 Duloxetine HCl (Cymbalta) 120 mg QHS PO 09/09/21 21:00 09/12/21 21:37 Glucagon (Glucagon) 1 mg ASDIRECTED PRN SC SEE LABEL COMMENTS 09/09/21 14:45 09/09/21 17:04 DC Glucagon (Glucagon) 1 mg ASDIRECTED PRN SC SEE LABEL COMMENTS 09/09/21 16:05 Glucose (Glucose) 16 GM ASDIRECTED PRN PO SEE LABEL COMMENTS 09/09/21 16:05 Glucose (Glucose) 16 gm ASDIRECTED PRN PO SEE LABEL COMMENTS 09/09/21 14:45 09/09/21 17:05 DC Home Med (Home Med List Complete!) ASDIRECTED XX 09/09/21 15:55 09/09/21 15:57 DC Hydroxychloroquine Sulfate (Plaquenil) 200 mg BID PO 09/09/21 21:00 09/13/21 08:17 Lactobacillus Acidophilus (Bacid) 1 ea DAILY PO 09/10/21 09:00 09/13/21 07:44 Levothyroxine Sodium (Synthroid) 25 mcg DAILY@06 PO 09/10/21 06:00 09/13/21 06:32 Magnesium Hydroxide (Milk Of Magnesia) 30 ml DAILYPRN PRN PO CONSTIPATION 09/09/21 14:35 Magnesium Oxide (Mag-Ox) 800 mg BID PO 09/09/21 21:00 09/12/21 21:36 Montelukast Sodium (Singulair) 10 mg QHS PO 09/09/21 21:00 09/12/21 21:37 Olanzapine (ZyPREXA ZYDIS) 10 mg BID PO 09/09/21 21:00 09/13/21 07:46 Pantoprazole Sodium (Protonix) 40 mg DAILY PO 09/10/21 09:00 09/13/21 08:17 Polyethylene Glycol (Miralax) 1 pkt DAILY PO 09/10/21 09:00 09/13/21 07:46 Potassium Chloride (Micro-K Extencaps) 40 meq BID PO 09/11/21 21:00 09/13/21 09:01 DC 09/13/21 07:45 Sucralfate (Carafate Suspension) 1 gm ACHS PO 09/09/21 17:30 09/13/21 06:32 Sumatriptan Succinate (Imitrex) 50 mg BIDP PRN PO MIGRAINE 09/09/21 14:45 Tamsulosin HCl (Flomax) 0.8 mg DAILY PO 09/10/21 09:00 09/12/21 08:50 Thiamine HCl (Thiamine HCl) 100 mg DAILY PO 09/10/21 09:00 09/13/21 07:46 Trazodone HCl (Desyrel) 50 mg QHSP PRN PO INSOMNIA 09/09/21 14:35 09/10/21 20:48 Allergies Coded Allergies: Sulfa (Sulfonamide Antibiotics) (Verified Allergy, Intermediate, RASH AND HIVES, 05/18/21) buspirone (Verified Allergy, Intermediate, hives, 05/18/21) cephalexin (Verified Allergy, Intermediate, hives, 05/18/21) erythromycin base (Verified Allergy, Intermediate, hives/rash, 05/18/21) latex (Verified Allergy, Intermediate, hives, 05/18/21) levofloxacin (Verified Allergy, Intermediate, hives/rash, 05/18/21) lisinopril (Verified Allergy, Intermediate, hives/rash, 05/18/21) sulfamethoxazole (Verified Allergy, Intermediate, hives/rash, 05/18/21) eszopiclone (Verified Allergy, Mild, rash, 05/18/21) omeprazole (Verified Allergy, Unknown, 05/18/21) bupropion (Verified Adverse Reaction, Mild, nausea, 05/18/21) trimethoprim (Verified Adverse Reaction, Mild, nausea/vomitting, 05/18/21) RAMON MURILLO NP Sep 13, 2021 10:37
[2021-09-13 16:09] VITALS: BP 116/74
[2021-09-13 17:02] VITALS: BP 112/62
--- NOTE | 2021-09-13 17:14 | IPNPDOC ---
Text Note Date of Service The patient was seen on 09/13/21. NOTE Subjective: Patient is a 41-year-old female who is currently admitted to the inpatient mental health unit after a hospitalization for overdose and delirium. [facility] staff called due to the patient not eating or drinking and having low blood sugars. Patient was seen and examined. Patient stated that she wanted to drink although I offered her her drink multiple times she swatted away. Staff states that they have having difficulty trying to get her to eat or drink anything. Patient currently had a bowel movement that may have been mixed with urine earlier this morning however, they have not been aware of any urine since this morning. Patient has only had a few small sips of liquid throughout the day. Patient does complain of a mildly dry mouth but does not have any other complaints at this time. When asked that she is thirsty she says yes. According to staff there was talk about possibly placing the patient in a nursing home facility however, she was deemed to be candidate for inpatient admission in the inpatient mental health unit so she was transferred to inpatient mental health unit earlier this week. Patient does not have any c omplaints other than previously stated. Review of systems: General: Patient denies fevers HEENT: Patient denies headaches Cardiovascular: Patient denies chest pain Respiratory: Patient denies shortness of breath, cough GI: Patient denies abdominal pain, nausea, vomiting, diarrhea : Patient denies increased frequency or pain with urination Extremities: Patient denies swelling or pain in extremities Neurological: Patient denies numbness or tingling in legs Physical exam: Vitals: See below General: Alert female who was laying in bed when I walked in. Patient did not appear to be in any acute distress. HEENT: Normocephalic, atraumatic, dry mucous membranes Neck: No lymphadenopathy or thyromegaly Cardiac: Regular rate and rhythm, no murmurs, normal S1, normal S2 Pulm: Clear to auscultation bilaterally. No wheezes, rhonchi, rales Abd: Nondistended, nontender to palpation, normal bowel sounds Ext: No edema bilateral lower extremities Labs: See below Imaging: No imaging is been performed Assessment/plan: 41-year-old female was admitted to the inpatient mental health unit for bipolar/delirium who has not been eating or drinking very much. 1. Dehydration. At this time, the patient's vital signs show that her heart rate is in the 90s with a normal blood pressure. Patient is afebrile. Patient does appear dry however, I do not believe she needs intravenous fluids at this time as we need to continue to attempt to push p.o. fluids. CBC, BMP, magnesium levels were ordered however, they were not done due to difficulty drawing the lab. We will have a another equipment operator/laborer, and attempt to draw. If the patient's creatinine is elevated, patient will need IV fluids and will need to be transferred to the medical floor at that time. The patient's creatinine is still within the normal limits, patient will need to drink p.o. fluids and I have instructed staff to encourage her to continue to drink p.o. fluids. Patient's creatinine is 1.36 which has increased from 1.24. This does not meet criteria for acute kidney injury at this time. Push p.o. fluids overnight and will recheck in the morning. If creatinine continues to rise, patient will need admission to the medical floor for IV fluid hydration. 2. Delirium. Patient may benefit from a neurological consultation however, patient will continue with treatment per inpatient mental health unit staff. 3. Hypothyroidism continue levothyroxine. 4. Status post rhabdomyolysis. Continue to monitor. 5. Anemia. We will recheck CBC today. 6. Chronic asthma. No evidence of exacerbation. 7. Hypoglycemia. Patient's blood sugars have been upper 60s to 80s since she has been hospitalized. Please encourage the patient to continue to eat. Patient has been able to maintain her blood sugar above 50. If the patient's blood sugar does fall below 50 or she has an acute hypoglycemic event, subcutaneous glucagon can be given before obtaining IV access and giving D50. DVT Prophylaxis: Teds Disposition: Based on laboratory results. VS,Fishbone, I+O VS, Fishbone, I+O Vital Signs Date Time Temp Pulse Resp B/P (MAP) Pulse Ox O2 Delivery O2 Flow Rate FiO2 09/13/21 17:02 98.1 103 18 112/62 (79) 99 Room Air NATHALIE WASHINGTON DO Sep 13, 2021 17:14
[2021-09-13 17:59] LABS: HEMATOCRIT 30.8 % (36.0-47.0); HEMOGLOBIN 9.7 g/dl (12.0-15.5); MEAN CORPUSCULAR HEMOGLOBIN 29.8 pg (27.0-33.0); MEAN CORPUSCULAR HGB CONC 31.5 g/dl (32.0-36.5); MEAN CORPUSCULAR VOLUME 94.8 fl (80.0-96.0); PLATELET COUNT, AUTOMATED 145 10^3/uL (150-450); RED BLOOD COUNT 3.25 10^6/uL (4.00-5.40); WHITE BLOOD COUNT 5.7 10^3/uL (4.0-10.0)
[2021-09-13 18:21] LABS: CALCIUM LEVEL 8.6 MG/DL (8.5-10.1); CREATININE FOR GFR 1.36 MG/DL (0.55-1.30); GLOMERULAR FILTRATION RATE 45.2 (>58); MAGNESIUM LEVEL 2.2 MG/DL (1.8-2.4); POTASSIUM SERUM 4.6 MEQ/L (3.5-5.1)
[2021-09-13] MEDS: DULoxetine 30MG CAPSULE (CYMBALTA) PO SCH (20:51)
[2021-09-13] MEDS: MONTELUKAST 10 MG TAB PO SCH (20:52)
[2021-09-14 06:30] VITALS: BP 115/67
[2021-09-14] MEDS: SUCRALFATE SUSP 1GM/10ML UD PO SCH ×4 (06:31→21:10)
[2021-09-14] MEDS: LEVOTHYROXINE 25MCG TABLET (0.025MG) PO SCH (06:31)
[2021-09-14] MEDS: HYDROXYCHLOROQUINE 200 MG TAB PO SCH ×2 (07:36→21:12)
[2021-09-14] MEDS: ASPIRIN 81MG ENTERIC TABLET PO SCH (07:37)
[2021-09-14] MEDS: DIVALPROEX 250 MG TAB PO SCH ×2 (07:37→21:10)
[2021-09-14] MEDS: MIRALAX *UNIT DOSE* 17GM PACKET PO SCH (07:38)
[2021-09-14] MEDS: OLANZapine ORAL DISINTEGRATING TAB 5MG PO SCH ×2 (07:38→21:11)
[2021-09-14] MEDS: LACTOBACILLUS ACIDOPHILUS CAP (BACID) PO SCH (09:00)
[2021-09-14] MEDS: MAGNESIUM OXIDE 400MG TAB (MAG-OX) PO SCH ×3 (09:00→21:11)
[2021-09-14] MEDS: PANTOPRAZOLE 40MG TAB (PROTONIX) PO SCH (09:00)
[2021-09-14] MEDS: FIBER-CON 625 MG TAB PO SCH ×2 (09:00→21:00)
[2021-09-14] MEDS: TAMSULOSIN 0.4 MG CAP PO SCH (09:00)
[2021-09-14] MEDS: THIAMINE 100 MG TAB PO SCH (09:00)
[2021-09-14 10:37] LABS: CALCIUM LEVEL 8.6 MG/DL (8.5-10.1); CREATININE FOR GFR 1.36 MG/DL (0.55-1.30); GLOMERULAR FILTRATION RATE 45.2 (>58); MAGNESIUM LEVEL 2.3 MG/DL (1.8-2.4); POTASSIUM SERUM 4.7 MEQ/L (3.5-5.1)
[2021-09-14 16:21] VITALS: BP 119/72
[2021-09-14] MEDS: MONTELUKAST 10 MG TAB PO SCH (21:11)
[2021-09-14] MEDS: DULoxetine 30MG CAPSULE (CYMBALTA) PO SCH (21:13)
[2021-09-15] MEDS: traZODone 50 MG TAB PO PRN (00:35)
[2021-09-15] MEDS: LEVOTHYROXINE 25MCG TABLET (0.025MG) PO SCH (06:17)
[2021-09-15] MEDS: SUCRALFATE SUSP 1GM/10ML UD PO SCH (06:17)
[2021-09-15 06:49] VITALS: BP 127/92
[2021-09-15 08:15] VITALS: BP 100/61
[2021-09-15] MEDS: OLANZapine ORAL DISINTEGRATING TAB 5MG PO SCH (09:00)
[2021-09-15] MEDS: ASPIRIN 81MG ENTERIC TABLET PO SCH (09:00)
[2021-09-15] MEDS: PANTOPRAZOLE 40MG TAB (PROTONIX) PO SCH (09:00)
[2021-09-15] MEDS: MIRALAX *UNIT DOSE* 17GM PACKET PO SCH (09:00)
[2021-09-15] MEDS: LACTOBACILLUS ACIDOPHILUS CAP (BACID) PO SCH (09:00)
[2021-09-15] MEDS: HYDROXYCHLOROQUINE 200 MG TAB PO SCH (09:00)
[2021-09-15] MEDS: MAGNESIUM OXIDE 400MG TAB (MAG-OX) PO SCH (09:00)
[2021-09-15] MEDS: FIBER-CON 625 MG TAB PO SCH (09:00)
[2021-09-15] MEDS: THIAMINE 100 MG TAB PO SCH (09:00)
[2021-09-15] MEDS: TAMSULOSIN 0.4 MG CAP PO SCH (09:00)
[2021-09-15] MEDS: DIVALPROEX 250 MG TAB PO SCH (09:00)
--- NOTE | 2021-09-15 15:20 | MHDSPDOC ---
[facility] Discharge Summary Discharge Summary DATE OF ADMISSION: Sep 09, 2021 at 15:40 DATE OF DISCHARGE: Sep 15, 2021 at 09:54 DISCHARGE DIAGNOSES: Bipolar by history History of polysubstance abuse Intellectual disability Delirium 2nd to Metabolic Encephalopathy REASON FOR ADMISSION: As per previous notes: "Patient is a 41 -year-old single, intellectually disabled, domiciled , female, who was admitted from the medical floor after she is found at home on the floor. Patient was upstairs admitted for rhabdomyolysis and metabolic encephalopathy. Patient has a extensive psychiatric history of polypharmacy and history of overdose." CONSULTANTS INVOLVED: Dr. Kyle Gaines TREATMENT AND PROGRESS ON THE UNIT : The patient has been exhibiting psychomotor retardation, she has been laying in bed, sleeping, barely moving, she has taken some of her medications, others, she has refused. She has ccepted her Duloxetine, Montelukast, Levothyroxine and Glucose tablets. The patient has not presented with acute psychiatric disorder, she has an intellectual disability and most likely, a neurocognitive disorder. She has presented with symptoms of delirium too. HOSPITAL COURSE: Because she was not eating or drinking and her glucose levels was persistently low, because she was dehydrated, Dr. Richy Gaines has r ecommended to transfer her to the Medical floor for stabilization DISCHARGE ASSESSMENT: According to previous notes, acoordint to staff reports, the patient was not suicidal, not homicidal, not acutely psychotic when she was discharged for the medical floor. She was dehydrated and her blood glucose levels were persistently low. MENTAL STATUS EXAMINATION ON DISCHARGE: I was not able to assess the patient prior to discharge, since her transfer was decided when I was not in hospital but this radio script writer is aware of her not being suicidal, homicidal or acutely psychotic. MEDICATIONS ON DISCHARGE: As per medication reconciliation PLAN/FOLLOWUP ARRANGEMENTS: Will discharge to medical floor, [facility] [facility] for stabilization The amount of time spent in the coordination of care for this patient was approximately 15 minutes. ETOH/Disorder Med Rx ETOH/DRUG DISORDER RX: N/A Vital Signs/I&Os Vital Signs Date Time Temp Pulse Resp B/P (MAP) Pulse Ox O2 Delivery O2 Flow Rate FiO2 09/15/21 08:15 98.9 106 20 100/61 (74) 09/15/21 06:49 98 Room Air I&O- Last 24 Hours up to 6 AM 09/15/21 06:00 Intake Total 10 ml Output Total 75 ml Balance -65 ml Laboratory Data Labs 24H Laboratory Tests 2 09/14/21 16:34: Bedside Glucose (Misc Panel) 60L 09/14/21 21:24: Bedside Glucose (Misc Panel) 60L 09/15/21 06:05: Bedside Glucose (Misc Panel) 49L 09/15/21 06:45: Bedside Glucose (Misc Panel) 54L Medications Scheduled Divalproex Sodium (Divalproex Sodium) 250 Mg Tablet.dr, 250 MG PO BID, (Rep orted) Duloxetine Hcl (Cymbalta) 60 Mg Capsule.dr, 120 MG PO QHS, (Reported) Fluticasone/Umeclidin/Vilanter (Trelegy Ellipta 100-62.5-25) 1 Each Blst.w.dev, 1 PUFF INH DAILY, (Reported) Hydroxychloroquine Sulfate (Hydroxychloroquine Sulfate) 200 Mg Tablet, 200 MG PO BID, (Reported) Levothyroxine Sodium (Synthroid) 25 Mcg Tablet, 25 MCG PO DAILY, (Reported) Magnesium Oxide (Magnesium Oxide) 400 Mg Tablet, 400 MG PO DAILY, (Reported) Methotrexate Sodium (Methotrexate) 2.5 Mg Tablet, 7.5 MG PO QWEEK, (Reported) MONDAYS Montelukast Sodium (Montelukast Sodium) 10 Mg Tablet, 10 MG PO QHS, (Reported) Olanzapine (Olanzapine Odt) 5 Mg Tab.rapdis, 10 MG PO BID for 30 Days, #60 Pantoprazole Sodium (Pantoprazole Sodium) 40 Mg Tablet.dr, 40 MG PO DAILY, (Reported) Potassium Chloride (Potassium Chloride) 10 Meq Capsule.er, 10 MEQ PO BID, (Re ported) Sucralfate (Carafate) 1 Gm Tablet, 1 GM PO ACHS, (Reported) 4 times per day take on an empty stomach Scheduled PRN Albuterol Sulfate (Proair Hfa) 8.5 Gm Hfa.aer.ad, 2 PUFF INH Q4H PRN for SHORTNESS OF BREATH, (Reported) Methocarbamol (Methocarbamol) 500 Mg Tablet, 500 MG PO BID PRN for MUSCLE SPASMS, (Reported) Metoclopramide HCl (Metoclopramide HCl) 10 Mg Tablet, 10 MG PO Q6H PRN for NAUSEA OR VOMITING, (Reported) Ondansetron HCl (Zofran) 4 Mg Tablet, 4 MG PO Q6H PRN for NAUSEA, (Reported) Sumatriptan Succinate (Sumatriptan Succinate) 50 Mg Tablet, 50 MG PO BID PRN for MIGRAINE, (Reported) Miscellaneous Medications [Patient Comment] , (Reported) MED REC COMPLETED VIA EXTERNAL MED HISTORY AND PREVIOUS DISCHARGE PAPERWORK (07/19/21) Allergies Coded Allergies: Sulfa (Sulfonamide Antibiotics) (Verified Allergy, Intermediate, RASH AND HIVES, 05/18/21) buspirone (Verified Allergy, Intermediate, hives, 05/18/21) cephalexin (Verified Allergy, Intermediate, hives, 05/18/21) erythromycin base (Verified Allergy, Intermediate, hives/rash, 05/18/21) latex (Verified Allergy, Intermediate, hives, 05/18/21) levofloxacin (Verified Allergy, Intermediate, hives/rash, 05/18/21) lisinopril (Verified Allergy, Intermediate, hives/rash, 05/18/21) sulfamethoxazole (Verified Allergy, Intermediate, hives/rash, 05/18/21) eszopiclone (Verified Allergy, Mild, rash, 05/18/21) omeprazole (Verified Allergy, Unknown, 05/18/21) bupropion (Verified Adverse Reaction, Mild, nausea, 05/18/21) trimethoprim (Verified Adverse Reaction, Mild, nausea/vomitting, 05/18/21) JUAN ARMSTRONG MD Sep 15, 2021 15:19
== END 2021-09-15 09:54 | disposition other institution (70) | DRG 885 ==
LOC: M ED INP 15:40 → M PSY 15:41
PROVIDERS: ADMIT Psychiatry & Neurology Psychiatry; ATTEND Psychiatry & Neurology Psychiatry
DX: F31.9 Bipolar disorder, unspecified (principal); G92.8 Other toxic encephalopathy; L97.419 Non-pressure chronic ulcer of right heel and midfoot with unspecified severity; F19.10 Other psychoactive substance abuse, uncomplicated; F79 Unspecified intellectual disabilities; Z91.51 Personal history of suicidal behavior; M79.7 Fibromyalgia; G43.909 Migraine, unspecified, not intractable, without status migrainosus; M06.9 Rheumatoid arthritis, unspecified; M35.00 Sjogren syndrome, unspecified; M32.9 Systemic lupus erythematosus, unspecified; Z98.84 Bariatric surgery status; Z79.899 Other long term (current) drug therapy; Z88.1 Allergy status to other antibiotic agents; Z88.2 Allergy status to sulfonamides; Z88.8 Allergy status to other drugs, medicaments and biological substances; Z91.040 Latex allergy status; I10 Essential (primary) hypertension; J45.909 Unspecified asthma, uncomplicated; D64.9 Anemia, unspecified; E03.9 Hypothyroidism, unspecified; L98.429 Non-pressure chronic ulcer of back with unspecified severity; E86.0 Dehydration; E16.2 Hypoglycemia, unspecified

== ENCOUNTER 2021-09-15 07:30 | Inpatient (IN) | payer MEDICARE, MEDICAID ==
[~2021-09-15] VITALS: Ht 170.2 cm; Wt 98.9 kg
[~2021-09-15 07:30] MED LIST changes: -MONT10TA10 PO; +MONT10TA97 PO; +OLAN5ZYD PO; +ONDA-84 PO; -ONDA8TAB10 PO; -PROC10TA4 PO; +PROC10TA5 PO; -SUMA6INJ16 SC; +SUMA6INJ25 SC
[2021-09-15] MEDS ORDERED: traZODone 50 MG TAB PO PRN (07:35)
[2021-09-15] MEDS ORDERED: ACETAMINOPHEN TAB 650MG DOSE (2X325MG) PO PRN (07:35)
[2021-09-15] MEDS ORDERED: POLYVINYL ALCOHOL OPHTH SOLN 15 ML(LIQUITEARS) OU PRN (07:35)
[2021-09-15] MEDS: LACTOBACILLUS ACIDOPHILUS CAP (BACID) PO SCH (09:00)
[2021-09-15] MEDS ORDERED: DIVALPROEX 250 MG TAB PO SCH (09:00)
[2021-09-15 10:00] VITALS: BP 90/52
[2021-09-15] MEDS ORDERED: HOME MED LIST COMPLETE! XX SCH (10:15)
[2021-09-15] MEDS: D5W/0.45% SODIUM CHLORIDE 1,000 ML IV SCH ×2 (12:19→17:10)
[2021-09-15] MEDS ORDERED: NYSTATIN 100,000 UNITS/GM TOPICAL PWD 15 GM TOP SCH (13:00)
[2021-09-15 13:50] LABS: HEMATOCRIT 26.5 % (36.0-47.0); HEMOGLOBIN 8.3 g/dl (12.0-15.5); MEAN CORPUSCULAR HEMOGLOBIN 30.9 pg (27.0-33.0); MEAN CORPUSCULAR HGB CONC 31.3 g/dl (32.0-36.5); MEAN CORPUSCULAR VOLUME 98.5 fl (80.0-96.0); PLATELET COUNT, AUTOMATED 138 10^3/uL (150-450); RED BLOOD COUNT 2.69 10^6/uL (4.00-5.40); WHITE BLOOD COUNT 7.4 10^3/uL (4.0-10.0)
[2021-09-15 14:12] LABS: ALBUMIN 1.6 GM/DL (3.2-5.2); BILIRUBIN,TOTAL 1.4 MG/DL (0.2-1.0); CALCIUM LEVEL 8.2 MG/DL (8.5-10.1); CREATININE FOR GFR 1.51 MG/DL (0.55-1.30); POTASSIUM SERUM 4.2 MEQ/L (3.5-5.1); TOTAL PROTEIN 4.4 GM/DL (6.4-8.2)
[2021-09-15 15:15] VITALS: BP 95/65
[2021-09-15] MEDS: HYDROXYCHLOROQUINE 200 MG TAB PO SCH ×2 (17:58→21:00)
[2021-09-15] MEDS: OLANZapine ORAL DISINTEGRATING TAB 5MG PO SCH ×2 (17:58→21:00)
[2021-09-15] MEDS: THIAMINE 100 MG TAB PO SCH (19:10)
[2021-09-15] MEDS: PANTOPRAZOLE 40MG TAB (PROTONIX) PO SCH (19:10)
[2021-09-15] MEDS: TAMSULOSIN 0.4 MG CAP PO SCH (19:10)
[2021-09-15] MEDS: ASPIRIN 81MG ENTERIC TABLET PO SCH (19:10)
[2021-09-15] MEDS ORDERED: SALIVA SUBSTITUTE(MOUTHKOTE) BTL MT PRN (19:45)
[2021-09-15] MEDS: FIBER-CON 625 MG TAB PO SCH (21:00)
[2021-09-15] MEDS: MONTELUKAST 10 MG TAB PO SCH (21:00)
[2021-09-15] MEDS: DULoxetine 30MG CAPSULE (CYMBALTA) PO SCH (21:00)
[2021-09-15] MEDS: DIVALPROEX SPRINKLE 125 MG CAP PO SCH (21:00)
[2021-09-15 22:00] VITALS: BP 113/84
[2021-09-16] MEDS ORDERED: D5W/0.9% SODIUM CHLORIDE 1,000 ML IV SCH (01:00)
[2021-09-16] MEDS: LEVOTHYROXINE 25MCG TABLET (0.025MG) PO SCH (05:31)
[2021-09-16] MEDS: TAMSULOSIN 0.4 MG CAP PO SCH (09:00)
[2021-09-16] MEDS: ASPIRIN 81MG ENTERIC TABLET PO SCH (09:00)
[2021-09-16] MEDS: HYDROXYCHLOROQUINE 200 MG TAB PO SCH ×2 (09:00→21:00)
[2021-09-16] MEDS: MIRALAX *UNIT DOSE* 17GM PACKET PO SCH (09:00)
[2021-09-16] MEDS: DIVALPROEX SPRINKLE 125 MG CAP PO SCH ×2 (09:00→21:00)
[2021-09-16] MEDS: FIBER-CON 625 MG TAB PO SCH ×2 (09:00→21:00)
[2021-09-16] MEDS: OLANZapine ORAL DISINTEGRATING TAB 5MG PO SCH ×2 (09:00→21:00)
[2021-09-16] MEDS: THIAMINE 100 MG TAB PO SCH (09:00)
[2021-09-16] MEDS: PANTOPRAZOLE 40MG TAB (PROTONIX) PO SCH (09:00)
[2021-09-16] MEDS: LACTOBACILLUS ACIDOPHILUS CAP (BACID) PO SCH (09:00)
[2021-09-16 09:29] LABS: HEMATOCRIT 26.4 % (36.0-47.0); HEMOGLOBIN 8.2 g/dl (12.0-15.5); MEAN CORPUSCULAR HEMOGLOBIN 30.1 pg (27.0-33.0); MEAN CORPUSCULAR HGB CONC 31.1 g/dl (32.0-36.5); MEAN CORPUSCULAR VOLUME 97.1 fl (80.0-96.0); PLATELET COUNT, AUTOMATED 131 10^3/uL (150-450); RED BLOOD COUNT 2.72 10^6/uL (4.00-5.40); WHITE BLOOD COUNT 6.5 10^3/uL (4.0-10.0)
[2021-09-16 09:42] LABS: CALCIUM LEVEL 7.7 MG/DL (8.5-10.1); CREATININE FOR GFR 1.25 MG/DL (0.55-1.30); GLOMERULAR FILTRATION RATE 49.8 (>58); MAGNESIUM LEVEL 1.9 MG/DL (1.8-2.4); POTASSIUM SERUM 3.4 MEQ/L (3.5-5.1)
[2021-09-16] MEDS: ENOXAPARIN 40MG/0.4ML SYRINGE (J1650 PER 10MG) SC SCH (10:30)
[2021-09-16] MEDS: KCL 20MEQ IN D5/0.45NS 1000ML 1,000 ML IV SCH ×2 (13:28→23:27)
[2021-09-16 14:00] VITALS: BP 100/71
[2021-09-16 20:09] VITALS: BP 100/70
[2021-09-16] MEDS: MONTELUKAST 10 MG TAB PO SCH (21:00)
[2021-09-16] MEDS: DULoxetine 30MG CAPSULE (CYMBALTA) PO SCH (21:00)
[2021-09-17] VITALS (7 sets, daily range): BP systolic 76–110; BP diastolic 58–70
[2021-09-17] MEDS: LEVOTHYROXINE 25MCG TABLET (0.025MG) PO SCH (05:47)
[2021-09-17] MEDS: MIRALAX *UNIT DOSE* 17GM PACKET PO SCH (09:00)
[2021-09-17 09:13] LABS: HEMATOCRIT 23.4 % (36.0-47.0); HEMOGLOBIN 7.4 g/dl (12.0-15.5); MEAN CORPUSCULAR HEMOGLOBIN 30.6 pg (27.0-33.0); MEAN CORPUSCULAR HGB CONC 31.6 g/dl (32.0-36.5); MEAN CORPUSCULAR VOLUME 96.7 fl (80.0-96.0); PLATELET COUNT, AUTOMATED 126 10^3/uL (150-450); RED BLOOD COUNT 2.42 10^6/uL (4.00-5.40); WHITE BLOOD COUNT 7.9 10^3/uL (4.0-10.0)
[2021-09-17 09:37] LABS: BLOOD UREA NITROGEN 13 MG/DL (7-18); CALCIUM LEVEL 7.7 MG/DL (8.5-10.1); CARBON DIOXIDE LEVEL 22 MEQ/L (21-32); CHLORIDE LEVEL 116 MEQ/L (98-107); CREATININE FOR GFR 0.92 MG/DL (0.55-1.30); GLOMERULAR FILTRATION RATE > 60.0 (>58); GLUCOSE, FASTING 92 MG/DL (70-100); MAGNESIUM LEVEL 1.7 MG/DL (1.8-2.4); POTASSIUM SERUM 3.9 MEQ/L (3.5-5.1); SODIUM LEVEL 146 MEQ/L (136-145)
[2021-09-17] MEDS: OLANZapine ORAL DISINTEGRATING TAB 5MG PO SCH ×2 (09:43→21:24)
[2021-09-17] MEDS: TAMSULOSIN 0.4 MG CAP PO SCH (09:47)
[2021-09-17] MEDS: ASPIRIN 81MG ENTERIC TABLET PO SCH (09:48)
[2021-09-17] MEDS: PANTOPRAZOLE 40MG TAB (PROTONIX) PO SCH (09:48)
[2021-09-17] MEDS: HYDROXYCHLOROQUINE 200 MG TAB PO SCH (09:48)
[2021-09-17] MEDS: FIBER-CON 625 MG TAB PO SCH ×2 (09:48→21:00)
[2021-09-17] MEDS: LACTOBACILLUS ACIDOPHILUS CAP (BACID) PO SCH (09:48)
[2021-09-17] MEDS: DIVALPROEX SPRINKLE 125 MG CAP PO SCH ×2 (09:49→21:25)
[2021-09-17] MEDS: THIAMINE 100 MG TAB PO SCH (09:49)
[2021-09-17] MEDS: ENOXAPARIN 40MG/0.4ML SYRINGE (J1650 PER 10MG) SC SCH (09:50)
[2021-09-17] MEDS ORDERED: D5W/0.45% SODIUM CHLORIDE 1,000 ML IV ONE (15:50)
[2021-09-17] MEDS ORDERED: MAG SULF 1GM/100ML (MAG RUN) 1 GM in IV 1 EA IV ONE (15:50)
[2021-09-17] MEDS: D5W/0.45% SODIUM CHLORIDE 1,000 ML IV SCH (17:46)
[2021-09-17] MEDS ORDERED: D5W/0.9% SODIUM CHLORIDE 1,000 ML IV ONE (19:00)
[2021-09-17] MEDS: MONTELUKAST 10 MG TAB PO SCH (21:25)
[2021-09-17] MEDS: DULoxetine 30MG CAPSULE (CYMBALTA) PO SCH (21:25)
[2021-09-18] VITALS (8 sets, daily range): BP systolic 89–130; BP diastolic 50–84
[2021-09-18] MEDS: D5W/0.45% SODIUM CHLORIDE 1,000 ML IV SCH ×5 (00:10→09:55)
[2021-09-18] MEDS ORDERED: LORazepam 0.5 MG TAB PO PRN (05:45)
[2021-09-18] MEDS ORDERED: NS 500 ML IV ONE (05:55)
[2021-09-18] MEDS: LEVOTHYROXINE 25MCG TABLET (0.025MG) PO SCH (06:00)
[2021-09-18] MEDS ORDERED: CLINDAMYCIN 600 MG in IV 1 EA IV SCH (06:00)
[2021-09-18] MEDS: OLANZapine ORAL DISINTEGRATING TAB 5MG PO SCH ×2 (06:47→20:27)
[2021-09-18 07:02] LABS: HEMATOCRIT 26.8 % (36.0-47.0); HEMOGLOBIN 8.8 g/dl (12.0-15.5); MEAN CORPUSCULAR HEMOGLOBIN 31.4 pg (27.0-33.0); MEAN CORPUSCULAR HGB CONC 32.8 g/dl (32.0-36.5); MEAN CORPUSCULAR VOLUME 95.7 fl (80.0-96.0); PLATELET COUNT, AUTOMATED 100 10^3/uL (150-450)
[2021-09-18 07:27] LABS: BLOOD UREA NITROGEN 12 MG/DL (7-18); CALCIUM LEVEL 7.3 MG/DL (8.5-10.1); CARBON DIOXIDE LEVEL 21 MEQ/L (21-32); CHLORIDE LEVEL 118 MEQ/L (98-107); CREATININE FOR GFR 0.82 MG/DL (0.55-1.30); GLOMERULAR FILTRATION RATE > 60.0 (>58); GLUCOSE, FASTING 85 MG/DL (70-100); MAGNESIUM LEVEL 1.8 MG/DL (1.8-2.4); POTASSIUM SERUM 3.8 MEQ/L (3.5-5.1); SODIUM LEVEL 144 MEQ/L (136-145)
[2021-09-18 08:20] LABS: HEMATOCRIT 27.5 % (36.0-47.0); HEMOGLOBIN 9.2 g/dl (12.0-15.5); MEAN CORPUSCULAR HEMOGLOBIN 31.6 pg (27.0-33.0); MEAN CORPUSCULAR HGB CONC 33.5 g/dl (32.0-36.5); MEAN CORPUSCULAR VOLUME 94.5 fl (80.0-96.0); PLATELET COUNT, AUTOMATED 101 10^3/uL (150-450); RED BLOOD COUNT 2.91 10^6/uL (4.00-5.40); WHITE BLOOD COUNT 8.1 10^3/uL (4.0-10.0)
[2021-09-18] MEDS: DIVALPROEX SPRINKLE 125 MG CAP PO SCH ×2 (08:34→20:27)
[2021-09-18] MEDS: ENOXAPARIN 40MG/0.4ML SYRINGE (J1650 PER 10MG) SC SCH (08:35)
[2021-09-18 08:54] LABS: ANISOCYTOSIS 1+; EOSINOPHILS 1 % (0-3); LYMPHOCYTES 25 % (16-44); MONOCYTES 4 % (0-5); NEUTROPHILS 64 % (28-66); PLATELET ESTIMATE DECREASED (NORMAL)
[2021-09-18 08:57] LABS: ALBUMIN 1.2 GM/DL (3.2-5.2); BILIRUBIN,DIRECT 2.3 MG/DL (0.0-0.2); BILIRUBIN,TOTAL 3.1 MG/DL (0.2-1.0); TOTAL PROTEIN 3.8 GM/DL (6.4-8.2)
[2021-09-18] MEDS: ASPIRIN 81MG ENTERIC TABLET PO SCH (09:00)
[2021-09-18] MEDS: PANTOPRAZOLE 40MG TAB (PROTONIX) PO SCH (09:00)
[2021-09-18] MEDS: FIBER-CON 625 MG TAB PO SCH ×3 (09:00→21:00)
[2021-09-18] MEDS: MIRALAX *UNIT DOSE* 17GM PACKET PO SCH (09:00)
[2021-09-18] MEDS: THIAMINE 100 MG TAB PO SCH (09:00)
[2021-09-18] MEDS ORDERED: CLINDAMYCIN 150MG CAPSULE PO SCH (09:00)
[2021-09-18] MEDS: LACTOBACILLUS ACIDOPHILUS CAP (BACID) PO SCH (09:00)
[2021-09-18] MEDS ORDERED: VANCOMYCIN HCL 500 MG in D5W MINI-BAG PLUS 100 ML IV ONE (10:00)
[2021-09-18] MEDS: VANCOMYCIN HCL 1,000 MG, VIAL MATE ADAPTER 1 EACH in NS 250 ML IV SCH ×2 (10:01→20:28)
[2021-09-18] MEDS ORDERED: D5W/0.45% SODIUM CHLORIDE 1,000 ML IV ONE (10:35)
[2021-09-18] MEDS ORDERED: MIRALAX *UNIT DOSE* 17GM PACKET PO PRN (10:40)
[2021-09-18] MEDS: PIPERACILLIN/TAZOBACTAM SOD 4.5 GM in D5W MINI-BAG PLUS 50 ML IV SCH ×3 (12:53→22:14)
[2021-09-18] MEDS ORDERED: LR 1,000 ML IV ONE (13:15)
[2021-09-18] MEDS ORDERED: MAGNESIUM OXIDE 400MG TAB (MAG-OX) PO ONE (13:45)
[2021-09-18] MEDS ORDERED: ISOVUE-370 76% 100ML VIAL As Ordered ONE (16:17)
[2021-09-18] MEDS: LR 1,000 ML IV SCH ×2 (18:25→21:46)
[2021-09-18] MEDS ORDERED: D5W/LR 1,000 ML IV ONE (19:15)
[2021-09-18] MEDS: DULoxetine 30MG CAPSULE (CYMBALTA) PO SCH (20:26)
[2021-09-18] MEDS: MONTELUKAST 10 MG TAB PO SCH (20:27)
[2021-09-19] VITALS (12 sets, daily range): BP systolic 83–136; BP diastolic 52–74
[2021-09-19] MEDS: PIPERACILLIN/TAZOBACTAM SOD 4.5 GM in D5W MINI-BAG PLUS 50 ML IV SCH ×4 (03:37→21:12)
[2021-09-19] MEDS: LEVOTHYROXINE 25MCG TABLET (0.025MG) PO SCH (05:14)
[2021-09-19] MEDS: LR 1,000 ML IV SCH ×2 (05:14→09:58)
[2021-09-19] MEDS ORDERED: GLUCOSE 4GM CHEW TABLET PO PRN (05:30)
[2021-09-19] MEDS ORDERED: GLUCAGON INJ 1MG VIAL SC PRN (05:30)
[2021-09-19] MEDS: DEXTROSE 50% 50 ML SYRINGE IV PRN ×2 (05:38→10:21)
[2021-09-19 08:24] LABS: HEMATOCRIT 26.2 % (36.0-47.0); HEMOGLOBIN 8.8 g/dl (12.0-15.5); MEAN CORPUSCULAR HEMOGLOBIN 31.5 pg (27.0-33.0); MEAN CORPUSCULAR HGB CONC 33.6 g/dl (32.0-36.5); MEAN CORPUSCULAR VOLUME 93.9 fl (80.0-96.0); RED BLOOD COUNT 2.79 10^6/uL (4.00-5.40); WHITE BLOOD COUNT 9.5 10^3/uL (4.0-10.0)
[2021-09-19 08:34] LABS: ALBUMIN 1.1 GM/DL (3.2-5.2); ALT/SGPT 18 U/L (12-78); BILIRUBIN,TOTAL 3.4 MG/DL (0.2-1.0); BLOOD UREA NITROGEN 11 MG/DL (7-18); CALCIUM LEVEL 7.3 MG/DL (8.5-10.1); CARBON DIOXIDE LEVEL 20 MEQ/L (21-32); CHLORIDE LEVEL 118 MEQ/L (98-107); CREATININE FOR GFR 0.77 MG/DL (0.55-1.30); GLOMERULAR FILTRATION RATE > 60.0 (>58); GLUCOSE, FASTING 51 MG/DL (70-100); MAGNESIUM LEVEL 1.8 MG/DL (1.8-2.4); POTASSIUM SERUM 3.4 MEQ/L (3.5-5.1); SODIUM LEVEL 147 MEQ/L (136-145); TOTAL PROTEIN 3.6 GM/DL (6.4-8.2)
[2021-09-19 08:59] LABS: PLATELET COUNT, AUTOMATED 49 10^3/uL (150-450)
[2021-09-19] MEDS: FIBER-CON 625 MG TAB PO SCH ×2 (09:00→21:00)
[2021-09-19] MEDS: ENOXAPARIN 40MG/0.4ML SYRINGE (J1650 PER 10MG) SC SCH (09:00)
[2021-09-19] MEDS: OLANZapine ORAL DISINTEGRATING TAB 5MG PO SCH ×2 (10:22→21:00)
[2021-09-19] MEDS: VANCOMYCIN HCL 1,000 MG, VIAL MATE ADAPTER 1 EACH in NS 250 ML IV SCH (10:22)
[2021-09-19] MEDS: LACTOBACILLUS ACIDOPHILUS CAP (BACID) PO SCH (10:22)
[2021-09-19] MEDS: PANTOPRAZOLE 40MG TAB (PROTONIX) PO SCH (10:22)
[2021-09-19] MEDS: THIAMINE 100 MG TAB PO SCH (10:22)
[2021-09-19] MEDS: DIVALPROEX SPRINKLE 125 MG CAP PO SCH ×2 (10:23→21:19)
[2021-09-19] MEDS: ASPIRIN 81MG ENTERIC TABLET PO SCH (10:24)
[2021-09-19 11:15] LABS: VANCOMYCIN LEVEL TROUGH 25.3 UG/ML (10.0-20.0)
[2021-09-19] MEDS ORDERED: D5W/0.45% SODIUM CHLORIDE 1,000 ML IV ONE (11:35)
[2021-09-19 12:20] LABS: CLOSTRIDIUM DIFFICILE PCR NEGATIVE (NEGATIVE)
[2021-09-19] MEDS ORDERED: NS 1,000 ML IV ONE (12:40)
[2021-09-19] MEDS: D5W/0.45% SODIUM CHLORIDE 1,000 ML IV SCH (14:32)
[2021-09-19] MEDS ORDERED: D5W/LR 1,000 ML IV ONE ×2 (15:15→17:50)
[2021-09-19 15:20] LABS: HEPATITIS B SURFACE ANTIGEN NEGATIVE (NEGATIVE)
[2021-09-19 15:47] LABS: HEPATITIS B CORE ANTIBODY IGM NEGATIVE (NEGATIVE); HEPATITIS C VIRUS ABY INDEX < 0.0 INDEX (<0.8)
[2021-09-19 20:08] LABS: HIV 1&2 SCREEN CENTAUR NEGATIVE (NEGATIVE)
[2021-09-19] MEDS: MONTELUKAST 10 MG TAB PO SCH (21:00)
[2021-09-19] MEDS: VANICREAM MOISTURIZING SKIN CREAM 113GM TUBE TOP SCH (21:00)
[2021-09-19] MEDS: DULoxetine 30MG CAPSULE (CYMBALTA) PO SCH (21:00)
[2021-09-19] MEDS ORDERED: VANCOMYCIN HCL 750 MG, VIAL MATE ADAPTER 1 EACH in NS 250 ML IV SCH (22:00)
[2021-09-20] VITALS: BP 108/59
[2021-09-20] MEDS: PIPERACILLIN/TAZOBACTAM SOD 4.5 GM in D5W MINI-BAG PLUS 50 ML IV SCH ×4 (03:11→21:24)
[2021-09-20 04:00] VITALS: BP 116/76
[2021-09-20] MEDS: LEVOTHYROXINE 25MCG TABLET (0.025MG) PO SCH (05:18)
[2021-09-20] MEDS: D5W/0.45% SODIUM CHLORIDE 1,000 ML IV SCH (05:43)
[2021-09-20 08:00] VITALS: BP 106/66
[2021-09-20] MEDS: OLANZapine ORAL DISINTEGRATING TAB 5MG PO SCH ×2 (08:58→21:25)
[2021-09-20] MEDS: LACTOBACILLUS ACIDOPHILUS CAP (BACID) PO SCH (08:58)
[2021-09-20] MEDS: FIBER-CON 625 MG TAB PO SCH ×2 (08:58→21:25)
[2021-09-20] MEDS: ASPIRIN 81MG ENTERIC TABLET PO SCH (08:58)
[2021-09-20] MEDS: PANTOPRAZOLE 40MG TAB (PROTONIX) PO SCH (08:58)
[2021-09-20] MEDS: THIAMINE 100 MG TAB PO SCH (08:59)
[2021-09-20] MEDS: DIVALPROEX SPRINKLE 125 MG CAP PO SCH ×2 (08:59→21:24)
[2021-09-20] MEDS: VANICREAM MOISTURIZING SKIN CREAM 113GM TUBE TOP SCH ×2 (09:00→21:26)
[2021-09-20 09:59] LABS: HEMATOCRIT 25.4 % (36.0-47.0); HEMOGLOBIN 8.6 g/dl (12.0-15.5); MEAN CORPUSCULAR HEMOGLOBIN 31.9 pg (27.0-33.0); MEAN CORPUSCULAR HGB CONC 33.9 g/dl (32.0-36.5); MEAN CORPUSCULAR VOLUME 94.1 fl (80.0-96.0); WHITE BLOOD COUNT 8.6 10^3/uL (4.0-10.0)
[2021-09-20 10:01] LABS: PLATELET COUNT, AUTOMATED 68 10^3/uL (150-450)
[2021-09-20] MEDS ORDERED: LIDOCAINE 1% MDV 20ML VIAL As Ordered ONE (10:31)
[2021-09-20 10:32] LABS: BLOOD UREA NITROGEN 10 MG/DL (7-18); CARBON DIOXIDE LEVEL 20 MEQ/L (21-32); CHLORIDE LEVEL 118 MEQ/L (98-107); CREATININE FOR GFR 0.84 MG/DL (0.55-1.30); GLOMERULAR FILTRATION RATE > 60.0 (>58); GLUCOSE, FASTING 79 MG/DL (70-100); POTASSIUM SERUM 2.8 MEQ/L (3.5-5.1); SODIUM LEVEL 146 MEQ/L (136-145)
[2021-09-20 10:33] LABS: CALCIUM LEVEL 7.5 MG/DL (8.5-10.1); MAGNESIUM LEVEL 1.8 MG/DL (1.8-2.4); VANCOMYCIN LEVEL TROUGH 21.6 UG/ML (10.0-20.0)
[2021-09-20 10:39] LABS: BILIRUBIN,DIRECT 2.7 MG/DL (0.0-0.2); BILIRUBIN,TOTAL 3.1 MG/DL (0.2-1.0); TOTAL PROTEIN 3.3 GM/DL (6.4-8.2)
[2021-09-20] MEDS ORDERED: KCL 10MEQ/100ML SWI (KRUN) 10 MEQ in IV 1 EA IV ONE (11:00)
[2021-09-20] MEDS ORDERED: POTASSIUM CHLORIDE 10MEQ SR TABLET PO ONE ×2 (11:00→15:20)
[2021-09-20 12:00] VITALS: BP 120/64
[2021-09-20] MEDS: VANCOMYCIN HCL 500 MG in D5W MINI-BAG PLUS 100 ML IV SCH (12:55)
[2021-09-20] MEDS ORDERED: D5W/0.45% SODIUM CHLORIDE 1,000 ML IV ONE (13:05)
[2021-09-20 14:19] LABS: BLOOD UREA NITROGEN 10 MG/DL (7-18); CALCIUM LEVEL 7.6 MG/DL (8.5-10.1); CARBON DIOXIDE LEVEL 20 MEQ/L (21-32); CHLORIDE LEVEL 118 MEQ/L (98-107); CREATININE FOR GFR 0.77 MG/DL (0.55-1.30); GLOMERULAR FILTRATION RATE > 60.0 (>58); GLUCOSE, FASTING 80 MG/DL (70-100); POTASSIUM SERUM 3.1 MEQ/L (3.5-5.1); SODIUM LEVEL 147 MEQ/L (136-145)
[2021-09-20 16:00] VITALS: BP 121/74
[2021-09-20] MEDS: ZINC SULFATE 220 MG CAP PO SCH (17:43)
[2021-09-20] MEDS: SODIUM CHLORIDE 0.9% INJ 10 ML SYR IV SCH (17:44)
[2021-09-20] MEDS: KCL 10MEQ IN D5/0.45NS 1000ML 1,000 ML IV SCH (17:44)
[2021-09-20 20:00] VITALS: BP 117/76
[2021-09-20 21:25] LABS: BLOOD UREA NITROGEN 10 MG/DL (7-18); CALCIUM LEVEL 7.3 MG/DL (8.5-10.1); CARBON DIOXIDE LEVEL 20 MEQ/L (21-32); CHLORIDE LEVEL 120 MEQ/L (98-107); CREATININE FOR GFR 0.78 MG/DL (0.55-1.30); GLOMERULAR FILTRATION RATE > 60.0 (>58); GLUCOSE, FASTING 86 MG/DL (70-100); POTASSIUM SERUM 3.8 MEQ/L (3.5-5.1); SODIUM LEVEL 147 MEQ/L (136-145)
[2021-09-20] MEDS: MONTELUKAST 10 MG TAB PO SCH (21:25)
[2021-09-20] MEDS: DULoxetine 30MG CAPSULE (CYMBALTA) PO SCH (21:26)
[2021-09-21] VITALS: BP 112/67
[2021-09-21] MEDS: VANCOMYCIN HCL 500 MG in D5W MINI-BAG PLUS 100 ML IV SCH ×2 (00:35→13:03)
[2021-09-21 03:14] LABS: BLOOD UREA NITROGEN 10 MG/DL (7-18); CALCIUM LEVEL 7.3 MG/DL (8.5-10.1); CARBON DIOXIDE LEVEL 21 MEQ/L (21-32); CHLORIDE LEVEL 120 MEQ/L (98-107); CREATININE FOR GFR 0.76 MG/DL (0.55-1.30); GLOMERULAR FILTRATION RATE > 60.0 (>58); GLUCOSE, FASTING 90 MG/DL (70-100); POTASSIUM SERUM 4.2 MEQ/L (3.5-5.1); SODIUM LEVEL 147 MEQ/L (136-145)
[2021-09-21] MEDS: PIPERACILLIN/TAZOBACTAM SOD 4.5 GM in D5W MINI-BAG PLUS 50 ML IV SCH ×4 (03:43→21:44)
[2021-09-21] MEDS: KCL 10MEQ IN D5/0.45NS 1000ML 1,000 ML IV SCH ×3 (03:43→21:44)
[2021-09-21 04:00] VITALS: BP 116/74
[2021-09-21] MEDS: LEVOTHYROXINE 25MCG TABLET (0.025MG) PO SCH (05:10)
[2021-09-21] MEDS: SODIUM CHLORIDE 0.9% INJ 10 ML SYR IV SCH ×2 (05:11→18:49)
[2021-09-21 05:29] LABS: HEMATOCRIT 26.6 % (36.0-47.0); HEMOGLOBIN 8.7 g/dl (12.0-15.5); MEAN CORPUSCULAR HEMOGLOBIN 31.3 pg (27.0-33.0); MEAN CORPUSCULAR HGB CONC 32.7 g/dl (32.0-36.5); MEAN CORPUSCULAR VOLUME 95.7 fl (80.0-96.0); RED BLOOD COUNT 2.78 10^6/uL (4.00-5.40); WHITE BLOOD COUNT 7.8 10^3/uL (4.0-10.0)
[2021-09-21 05:37] LABS: PLATELET COUNT, AUTOMATED 51 10^3/uL (150-450)
[2021-09-21 05:54] LABS: ALBUMIN 1.1 GM/DL (3.2-5.2); ALT/SGPT 15 U/L (12-78); BILIRUBIN,TOTAL 3.2 MG/DL (0.2-1.0); BLOOD UREA NITROGEN 11 MG/DL (7-18); CALCIUM LEVEL 7.6 MG/DL (8.5-10.1); CARBON DIOXIDE LEVEL 19 MEQ/L (21-32); CHLORIDE LEVEL 118 MEQ/L (98-107); GLOMERULAR FILTRATION RATE > 60.0 (>58); GLUCOSE, FASTING 94 MG/DL (70-100); MAGNESIUM LEVEL 1.8 MG/DL (1.8-2.4); POTASSIUM SERUM 4.1 MEQ/L (3.5-5.1); SODIUM LEVEL 146 MEQ/L (136-145); TOTAL PROTEIN 3.7 GM/DL (6.4-8.2)
[2021-09-21 06:53] LABS: LYMPHOCYTES 15 % (16-44); MONOCYTES 3 % (0-5); NEUTROPHILS 73 % (28-66); PLATELET ESTIMATE DECREASED (NORMAL)
[2021-09-21 08:00] VITALS: BP 106/66
[2021-09-21] MEDS: FIBER-CON 625 MG TAB PO SCH ×4 (09:00→20:55)
[2021-09-21] MEDS: LACTOBACILLUS ACIDOPHILUS CAP (BACID) PO SCH ×3 (09:00→09:46)
[2021-09-21] MEDS: PANTOPRAZOLE 40MG TAB (PROTONIX) PO SCH ×3 (09:00→09:46)
[2021-09-21] MEDS: ASPIRIN 81MG ENTERIC TABLET PO SCH ×3 (09:00→09:46)
[2021-09-21] MEDS: THIAMINE 100 MG TAB PO SCH ×3 (09:00→09:46)
[2021-09-21] MEDS: OLANZapine ORAL DISINTEGRATING TAB 5MG PO SCH ×4 (09:00→20:55)
[2021-09-21] MEDS: ZINC SULFATE 220 MG CAP PO SCH ×3 (09:00→09:46)
[2021-09-21] MEDS: VANICREAM MOISTURIZING SKIN CREAM 113GM TUBE TOP SCH ×2 (09:27→20:56)
[2021-09-21] MEDS: DIVALPROEX SPRINKLE 125 MG CAP PO SCH ×3 (09:28→20:55)
[2021-09-21] MEDS: MULTIVITAMINS/MINERALS THERAP 1 TAB PO SCH ×3 (09:28→10:00)
[2021-09-21 12:00] VITALS: BP 107/73
[2021-09-21 12:06] LABS: BLOOD UREA NITROGEN 10 MG/DL (7-18); CALCIUM LEVEL 7.6 MG/DL (8.5-10.1); CARBON DIOXIDE LEVEL 19 MEQ/L (21-32); CHLORIDE LEVEL 119 MEQ/L (98-107); CREATININE FOR GFR 0.78 MG/DL (0.55-1.30); GLOMERULAR FILTRATION RATE > 60.0 (>58); GLUCOSE, FASTING 95 MG/DL (70-100); POTASSIUM SERUM 3.7 MEQ/L (3.5-5.1); SODIUM LEVEL 146 MEQ/L (136-145); VANCOMYCIN LEVEL TROUGH 14.5 UG/ML (10.0-20.0)
[2021-09-21 13:37] LABS: INR 1.42; PROTHROMBIN TIME 17.8 SECONDS (12.7-14.5)
[2021-09-21 13:38] LABS: PARTIAL THROMBOPLASTIN TIME 42.5 SECONDS (25.9-37.0); PLATELET COUNT, AUTOMATED 47 10^3/uL (150-450)
[2021-09-21 13:40] LABS: D-DIMER QUANT 890.1 ng/ml (<500)
[2021-09-21 13:44] LABS: BLOOD UREA NITROGEN 10 MG/DL (7-18); GLOMERULAR FILTRATION RATE > 60.0 (>58); GLUCOSE, FASTING 101 MG/DL (70-100)
[2021-09-21 13:45] LABS: CALCIUM LEVEL 7.6 MG/DL (8.5-10.1); CARBON DIOXIDE LEVEL 19 MEQ/L (21-32); CHLORIDE LEVEL 118 MEQ/L (98-107); POTASSIUM SERUM 3.7 MEQ/L (3.5-5.1); SODIUM LEVEL 145 MEQ/L (136-145)
[2021-09-21] MEDS: MUPIROCIN 2% OINT 22 GM TUBE TOP SCH ×2 (14:27→21:00)
[2021-09-21] MEDS: TRIAMCINOLONE ACET 0.1% CREAM 80 GM EXT SCH ×2 (15:29→20:55)
[2021-09-21] MEDS ORDERED: traMADol 50 MG TAB PO PRN (15:45)
[2021-09-21 16:00] VITALS: BP 121/72
[2021-09-21 20:00] VITALS: BP 117/73
[2021-09-21] MEDS: DULoxetine 30MG CAPSULE (CYMBALTA) PO SCH (20:55)
[2021-09-21] MEDS: MONTELUKAST 10 MG TAB PO SCH (20:55)
[2021-09-22] VITALS (10 sets, daily range): BP systolic 104–146; BP diastolic 63–87
[2021-09-22] MEDS: VANCOMYCIN HCL 500 MG in D5W MINI-BAG PLUS 100 ML IV SCH ×3 (01:07→23:15)
[2021-09-22] MEDS: PIPERACILLIN/TAZOBACTAM SOD 4.5 GM in D5W MINI-BAG PLUS 50 ML IV SCH ×4 (04:06→21:55)
[2021-09-22] MEDS: LEVOTHYROXINE 25MCG TABLET (0.025MG) PO SCH (05:41)
[2021-09-22] MEDS: KCL 10MEQ IN D5/0.45NS 1000ML 1,000 ML IV SCH (05:41)
[2021-09-22] MEDS: SODIUM CHLORIDE 0.9% INJ 10 ML SYR IV SCH ×2 (05:42→17:49)
[2021-09-22 06:18] LABS: HEMATOCRIT 21.8 % (36.0-47.0); HEMOGLOBIN 7.2 g/dl (12.0-15.5); MEAN CORPUSCULAR HEMOGLOBIN 31.4 pg (27.0-33.0); MEAN CORPUSCULAR VOLUME 95.2 fl (80.0-96.0); RED BLOOD COUNT 2.29 10^6/uL (4.00-5.40); WHITE BLOOD COUNT 6.8 10^3/uL (4.0-10.0)
[2021-09-22 07:08] LABS: ALBUMIN 0.9 GM/DL (3.2-5.2); ALT/SGPT 14 U/L (12-78); BILIRUBIN,TOTAL 3.1 MG/DL (0.2-1.0); BLOOD UREA NITROGEN 9 MG/DL (7-18); CALCIUM LEVEL 6.8 MG/DL (8.5-10.1); CARBON DIOXIDE LEVEL 18 MEQ/L (21-32); CHLORIDE LEVEL 116 MEQ/L (98-107); CREATININE FOR GFR 0.73 MG/DL (0.55-1.30); GLOMERULAR FILTRATION RATE > 60.0 (>58); GLUCOSE, FASTING 331 MG/DL (70-100); MAGNESIUM LEVEL 1.5 MG/DL (1.8-2.4); POTASSIUM SERUM 4.3 MEQ/L (3.5-5.1); SODIUM LEVEL 141 MEQ/L (136-145); TOTAL PROTEIN 3.3 GM/DL (6.4-8.2)
[2021-09-22 07:48] LABS: PLATELET COUNT, AUTOMATED 37 10^3/uL (150-450)
[2021-09-22 07:50] LABS: ANISOCYTOSIS 1+; ATYPICAL LYMPH 1 % (0-5); LYMPHOCYTES 7 % (16-44); MONOCYTES 10 % (0-5); NEUTROPHILS 80 % (28-66); PLATELET ESTIMATE MARKED DECREASE (NORMAL)
[2021-09-22] MEDS ORDERED: MAG SULF 1GM/100ML (MAG RUN) 1 GM in IV 1 EA IV ONE (08:00)
[2021-09-22] MEDS: TRIAMCINOLONE ACET 0.1% CREAM 80 GM EXT SCH ×3 (08:46→20:06)
[2021-09-22] MEDS: VANICREAM MOISTURIZING SKIN CREAM 113GM TUBE TOP SCH ×2 (08:46→20:10)
[2021-09-22] MEDS: MUPIROCIN 2% OINT 22 GM TUBE TOP SCH ×2 (08:47→20:04)
[2021-09-22] MEDS: DIVALPROEX SPRINKLE 125 MG CAP PO SCH ×2 (08:49→20:00)
[2021-09-22] MEDS: LACTOBACILLUS ACIDOPHILUS CAP (BACID) PO SCH (09:00)
[2021-09-22] MEDS: PANTOPRAZOLE 40MG TAB (PROTONIX) PO SCH (09:00)
[2021-09-22] MEDS: OLANZapine ORAL DISINTEGRATING TAB 5MG PO SCH ×2 (09:00→21:00)
[2021-09-22] MEDS: MULTIVITAMINS/MINERALS THERAP 1 TAB PO SCH (09:00)
[2021-09-22] MEDS: ZINC SULFATE 220 MG CAP PO SCH (09:00)
[2021-09-22] MEDS: FIBER-CON 625 MG TAB PO SCH ×2 (09:00→21:00)
[2021-09-22] MEDS: ASPIRIN 81MG ENTERIC TABLET PO SCH (09:00)
[2021-09-22] MEDS: THIAMINE 100 MG TAB PO SCH (09:00)
[2021-09-22 13:12] LABS: PLATELET COUNT, AUTOMATED 46 10^3/uL (150-450)
[2021-09-22 13:25] LABS: INR 1.38; PROTHROMBIN TIME 17.4 SECONDS (12.7-14.5)
[2021-09-22 13:26] LABS: PARTIAL THROMBOPLASTIN TIME 43.3 SECONDS (25.9-37.0)
[2021-09-22 13:28] LABS: D-DIMER QUANT 1075.91 ng/ml (<500)
[2021-09-22] MEDS: NYSTATIN 100,000 UNITS/GM TOPICAL PWD 15 GM TOP SCH ×2 (13:29→20:09)
[2021-09-22] MEDS ORDERED: CHLORHEXIDINE GLUCONATE 0.12 % 15ML UDC (PERIDEX ORAL RINSE) MT SCH (16:00)
[2021-09-22] MEDS: DULoxetine 30MG CAPSULE (CYMBALTA) PO SCH (21:00)
[2021-09-22] MEDS: MONTELUKAST 10 MG TAB PO SCH (21:00)
[2021-09-23] VITALS: BP 123/75
[2021-09-23] MEDS: PIPERACILLIN/TAZOBACTAM SOD 4.5 GM in D5W MINI-BAG PLUS 50 ML IV SCH ×2 (03:17→09:20)
[2021-09-23 04:00] VITALS: BP 123/75
[2021-09-23 04:37] LABS: BASO # 0.1 10^3/uL (0.0-0.2); BASO % 0.6 % (0.0-1.0); HEMATOCRIT 26.5 % (36.0-47.0); HEMOGLOBIN 8.9 g/dl (12.0-15.5); LYMPH # 0.9 10^3/uL (1.5-5.0); LYMPH % 10.6 % (24.0-44.0); MEAN CORPUSCULAR HEMOGLOBIN 30.9 pg (27.0-33.0); MEAN CORPUSCULAR HGB CONC 33.6 g/dl (32.0-36.5); MONO # 0.5 10^3/uL (0.0-0.8); MONO % 6.3 % (2.0-8.0); NEUTROPHILS # 6.6 10^3/uL (1.5-8.5); RED BLOOD COUNT 2.88 10^6/uL (4.00-5.40)
[2021-09-23 04:40] LABS: PLATELET COUNT, AUTOMATED 40 10^3/uL (150-450)
[2021-09-23] MEDS: SODIUM CHLORIDE 0.9% INJ 10 ML SYR IV SCH ×2 (04:56→17:52)
[2021-09-23] MEDS: LEVOTHYROXINE 25MCG TABLET (0.025MG) PO SCH (05:41)
[2021-09-23 05:51] LABS: BLOOD UREA NITROGEN 9 MG/DL (7-18); CREATININE FOR GFR 0.66 MG/DL (0.55-1.30); GLUCOSE, FASTING 243 MG/DL (70-100)
[2021-09-23 05:52] LABS: ALBUMIN 0.8 GM/DL (3.2-5.2); ALT/SGPT 14 U/L (12-78); BILIRUBIN,TOTAL 3.1 MG/DL (0.2-1.0); CALCIUM LEVEL 6.7 MG/DL (8.5-10.1); CARBON DIOXIDE LEVEL 19 MEQ/L (21-32); CHLORIDE LEVEL 113 MEQ/L (98-107); GLOMERULAR FILTRATION RATE > 60.0 (>58); MAGNESIUM LEVEL 1.6 MG/DL (1.8-2.4); POTASSIUM SERUM 3.6 MEQ/L (3.5-5.1); SODIUM LEVEL 146 MEQ/L (136-145); TOTAL PROTEIN 3.9 GM/DL (6.4-8.2)
[2021-09-23 08:00] VITALS: BP 93/59
[2021-09-23] MEDS: PANTOPRAZOLE 40MG TAB (PROTONIX) PO SCH (09:17)
[2021-09-23] MEDS: LACTOBACILLUS ACIDOPHILUS CAP (BACID) PO SCH (09:17)
[2021-09-23] MEDS: ASPIRIN 81MG ENTERIC TABLET PO SCH (09:17)
[2021-09-23] MEDS: ZINC SULFATE 220 MG CAP PO SCH (09:17)
[2021-09-23] MEDS: MULTIVITAMINS/MINERALS THERAP 1 TAB PO SCH (09:17)
[2021-09-23] MEDS: DIVALPROEX SPRINKLE 125 MG CAP PO SCH (09:17)
[2021-09-23] MEDS: THIAMINE 100 MG TAB PO SCH (09:18)
[2021-09-23] MEDS: OLANZapine ORAL DISINTEGRATING TAB 5MG PO SCH (09:18)
[2021-09-23] MEDS: VANICREAM MOISTURIZING SKIN CREAM 113GM TUBE TOP SCH ×2 (09:18→20:38)
[2021-09-23] MEDS: FIBER-CON 625 MG TAB PO SCH ×2 (09:19→20:37)
[2021-09-23] MEDS: MUPIROCIN 2% OINT 22 GM TUBE TOP SCH ×2 (09:19→20:40)
[2021-09-23] MEDS: NYSTATIN 100,000 UNITS/GM TOPICAL PWD 15 GM TOP SCH ×2 (09:20→20:39)
[2021-09-23] MEDS: TRIAMCINOLONE ACET 0.1% CREAM 80 GM EXT SCH ×3 (09:23→20:48)
[2021-09-23 12:00] VITALS: BP 123/76
[2021-09-23] MEDS: KCL 20MEQ IN 0.45NS 1000ML 1,000 ML IV SCH (12:13)
[2021-09-23] MEDS: AMPICILLIN SOD/SULBACTAM SOD 3 GM in D5W MINI-BAG PLUS 100 ML IV SCH ×2 (15:39→20:47)
[2021-09-23 16:00] VITALS: BP 121/74
[2021-09-23 20:00] VITALS: BP 119/77
[2021-09-23] MEDS: MONTELUKAST 10 MG TAB PO SCH (20:37)
[2021-09-23] MEDS: LORazepam 2 MG/ML VIAL IV SCH (20:37)
[2021-09-23] MEDS ORDERED: OLANZapine INTRAMUSCULAR 10MG VIAL IM SCH (21:00)
[2021-09-24] VITALS (12 sets, daily range): BP systolic 104–122; BP diastolic 53–83
[2021-09-24] MEDS: KCL 20MEQ IN 0.45NS 1000ML 1,000 ML IV SCH (01:47)
[2021-09-24] MEDS: AMPICILLIN SOD/SULBACTAM SOD 3 GM in D5W MINI-BAG PLUS 100 ML IV SCH ×4 (02:25→21:14)
[2021-09-24] MEDS: LEVOTHYROXINE 25MCG TABLET (0.025MG) PO SCH (05:54)
[2021-09-24] MEDS: SODIUM CHLORIDE 0.9% INJ 10 ML SYR IV SCH ×2 (05:56→17:54)
[2021-09-24 06:30] LABS: HEMATOCRIT 25.9 % (36.0-47.0); HEMOGLOBIN 8.8 g/dl (12.0-15.5); MEAN CORPUSCULAR HEMOGLOBIN 31.1 pg (27.0-33.0); MEAN CORPUSCULAR VOLUME 91.5 fl (80.0-96.0); RED BLOOD COUNT 2.83 10^6/uL (4.00-5.40); WHITE BLOOD COUNT 8.2 10^3/uL (4.0-10.0)
[2021-09-24 06:34] LABS: PLATELET COUNT, AUTOMATED 48 10^3/uL (150-450)
[2021-09-24 06:45] LABS: ALBUMIN 0.9 GM/DL (3.2-5.2); ALT/SGPT 12 U/L (12-78); BILIRUBIN,DIRECT 2.5 MG/DL (0.0-0.2); BILIRUBIN,TOTAL 2.9 MG/DL (0.2-1.0); BLOOD UREA NITROGEN 10 MG/DL (7-18); CALCIUM LEVEL 7.5 MG/DL (8.5-10.1); CARBON DIOXIDE LEVEL 20 MEQ/L (21-32); CHLORIDE LEVEL 119 MEQ/L (98-107); CREATININE FOR GFR 0.54 MG/DL (0.55-1.30); FERRITIN 411 NG/ML (8-252); GLOMERULAR FILTRATION RATE > 60.0 (>58); GLUCOSE, FASTING 64 MG/DL (70-100); IRON (FE) 35 UG/DL (50-170); LDH LACTATE DEHYDROGENASE 350 U/L (84-246); PERCENT SATURATION 81.4 % (13.2-45.0); POTASSIUM SERUM 3.7 MEQ/L (3.5-5.1); SODIUM LEVEL 146 MEQ/L (136-145); TOTAL IRON BINDING CAPACITY 43 UG/DL (250-450); TOTAL PROTEIN 3.8 GM/DL (6.4-8.2)
[2021-09-24 07:29] LABS: BASOPHILS 1 % (0-1); LYMPHOCYTES 10 % (16-44); MONOCYTES 8 % (0-5); NEUTROPHILS 81 % (28-66); PLATELET ESTIMATE MARKED DECREASE (NORMAL)
[2021-09-24 07:30] LABS: ANISOCYTOSIS 1+
[2021-09-24] MEDS: ZINC SULFATE 220 MG CAP PO SCH (09:00)
[2021-09-24] MEDS: ASPIRIN 81MG ENTERIC TABLET PO SCH (09:00)
[2021-09-24] MEDS: MULTIVITAMINS/MINERALS THERAP 1 TAB PO SCH (09:00)
[2021-09-24] MEDS: FIBER-CON 625 MG TAB PO SCH ×2 (09:00→21:14)
[2021-09-24] MEDS: PANTOPRAZOLE 40MG TAB (PROTONIX) PO SCH (09:00)
[2021-09-24] MEDS: THIAMINE 100 MG TAB PO SCH (09:00)
[2021-09-24] MEDS: LACTOBACILLUS ACIDOPHILUS CAP (BACID) PO SCH (09:00)
[2021-09-24] MEDS: LORazepam 2 MG/ML VIAL IV SCH (09:01)
[2021-09-24] MEDS: VANICREAM MOISTURIZING SKIN CREAM 113GM TUBE TOP SCH (09:01)
[2021-09-24] MEDS: NYSTATIN 100,000 UNITS/GM TOPICAL PWD 15 GM TOP SCH (09:02)
[2021-09-24] MEDS: MUPIROCIN 2% OINT 22 GM TUBE TOP SCH (09:02)
[2021-09-24] MEDS: TRIAMCINOLONE ACET 0.1% CREAM 80 GM EXT SCH ×3 (09:03→21:14)
[2021-09-24 11:59] LABS: ABG BASE EXCESS -9.4 (-2.0-2.0); ABG HCO3 15.1 MEQ/L (22.0-26.0); ABG O2 SATURATION 92.9 % (95.0-99.0); ABG PARTIAL PRESSURE CO2 28.5 mmHg (35.0-45.0); ABG PARTIAL PRESSURE O2 71.5 mmHg (75.0-100.0); ABG STANDARD HCO3 16.8 MEQ/L (22.0-26.0); ABG pH (ARTERIAL) 7.343 UNITS (7.350-7.450)
[2021-09-24] MEDS ORDERED: PROPOFOL 1,000 MG/100 ML VIAL As Ordered ONE (13:50)
[2021-09-24] MEDS: propofoL 1,000 MG in IV 1 EA IV SCH (13:55)
[2021-09-24] MEDS ORDERED: dexmedeTOMidine 200 MCG in IV 1 EA IV SCH (14:00)
[2021-09-24] MEDS ORDERED: FUROSEMIDE 40MG/4ML VIAL (J1940) IV ONE (14:15)
[2021-09-24] MEDS ORDERED: ETOMIDATE INJ 20MG/10ML VIAL IV ONE (14:15)
[2021-09-24] MEDS ORDERED: ROCURONIUM BROMIDE 50 MG/5 ML VIAL IV ONE (14:20)
[2021-09-24 17:07] LABS: ALDOLASE 8.5 U/L (3.3-10.3); ANTI-MITOCHONDRIAL ANTIBODY <20.0 Units (0.0-20.0); ANTI-SMOOTH MUSCLE ANTIBODY 8 Units (0-19)
[2021-09-24] MEDS ORDERED: ETOMIDATE INJ 20MG/10ML VIAL ONE (18:37)
[2021-09-24] MEDS ORDERED: ROCURONIUM BROMIDE 50 MG/5 ML VIAL ONE (18:37)
[2021-09-24] MEDS: MIDAZOLAM INJ 2MG/2ML VIAL (J2250 PER 1MG) IV ONE (19:50)
[2021-09-25] VITALS (20 sets, daily range): BP systolic 84–125; BP diastolic 62–87
[2021-09-25] MEDS: AMPICILLIN SOD/SULBACTAM SOD 3 GM in D5W MINI-BAG PLUS 100 ML IV SCH ×3 (03:45→18:39)
[2021-09-25] MEDS: NYSTATIN 100,000 UNITS/GM TOPICAL PWD 15 GM TOP SCH ×3 (03:46→21:51)
[2021-09-25] MEDS: MUPIROCIN 2% OINT 22 GM TUBE TOP SCH ×3 (03:46→21:51)
[2021-09-25] MEDS: VANICREAM MOISTURIZING SKIN CREAM 113GM TUBE TOP SCH ×3 (03:47→21:51)
[2021-09-25 04:57] LABS: HEMATOCRIT 25.6 % (36.0-47.0); HEMOGLOBIN 9.2 g/dl (12.0-15.5); MEAN CORPUSCULAR HEMOGLOBIN 32.7 pg (27.0-33.0); MEAN CORPUSCULAR HGB CONC 35.9 g/dl (32.0-36.5); MEAN CORPUSCULAR VOLUME 91.1 fl (80.0-96.0); RED BLOOD COUNT 2.81 10^6/uL (4.00-5.40); WHITE BLOOD COUNT 7.2 10^3/uL (4.0-10.0)
[2021-09-25 04:59] LABS: PLATELET COUNT, AUTOMATED 50 10^3/uL (150-450)
[2021-09-25 05:28] LABS: BASO # 0.1 10^3/uL (0.0-0.2); BASO % 0.8 % (0.0-1.0); EOS % 0.1 % (0.0-3.0); LYMPH # 1.3 10^3/uL (1.5-5.0); LYMPH % 17.8 % (24.0-44.0); MONO # 0.3 10^3/uL (0.0-0.8); MONO % 3.9 % (2.0-8.0); NEUTROPHILS # 5.5 10^3/uL (1.5-8.5); NEUTROPHILS % 76.8 % (36.0-66.0)
[2021-09-25 05:31] LABS: BLOOD UREA NITROGEN 10 MG/DL (7-18); CALCIUM LEVEL 7.1 MG/DL (8.5-10.1); CARBON DIOXIDE LEVEL 20 MEQ/L (21-32); CHLORIDE LEVEL 116 MEQ/L (98-107); CREATININE FOR GFR 0.74 MG/DL (0.55-1.30); GLOMERULAR FILTRATION RATE > 60.0 (>58); GLUCOSE, FASTING 97 MG/DL (70-100); POTASSIUM SERUM 3.2 MEQ/L (3.5-5.1); SODIUM LEVEL 143 MEQ/L (136-145)
[2021-09-25 05:32] LABS: ALBUMIN 0.8 GM/DL (3.2-5.2); ALT/SGPT 15 U/L (12-78); BILIRUBIN,TOTAL 2.6 MG/DL (0.2-1.0); COMPLEMENT C3 74 MG/DL (90-180); COMPLEMENT C4 29 MG/DL (10-40); MAGNESIUM LEVEL 1.7 MG/DL (1.8-2.4); TOTAL PROTEIN 3.9 GM/DL (6.4-8.2)
[2021-09-25 05:36] LABS: ANISOCYTOSIS 1+; LYMPHOCYTES 18 % (16-44); MONOCYTES 3 % (0-5); NEUTROPHILS 79 % (28-66); PLATELET ESTIMATE DECREASED (NORMAL); POIKILOCYTOSIS 1+
[2021-09-25] MEDS: dexmedeTOMidine 200 MCG in IV 1 EA IV SCH ×3 (05:58→16:24)
[2021-09-25] MEDS: LEVOTHYROXINE 25MCG TABLET (0.025MG) PO SCH (06:04)
[2021-09-25] MEDS: SODIUM CHLORIDE 0.9% INJ 10 ML SYR IV SCH ×2 (06:04→17:25)
[2021-09-25] MEDS: ENOXAPARIN 40MG/0.4ML SYRINGE (J1650 PER 10MG) SC SCH (09:00)
[2021-09-25] MEDS: PANTOPRAZOLE 40MG TAB (PROTONIX) PO SCH (09:00)
[2021-09-25] MEDS ORDERED: MAG SULF 1GM/100ML (MAG RUN) 1 GM in IV 1 EA IV ONE (09:45)
[2021-09-25] MEDS: propofoL 1,000 MG in IV 1 EA IV SCH ×2 (09:45→14:38)
[2021-09-25] MEDS ORDERED: FUROSEMIDE 20MG/2ML VIAL (J1940) IV ONE (09:50)
[2021-09-25] MEDS ORDERED: SENNA 8.6 MG TAB (SENOKOT) PO PRN (09:55)
[2021-09-25] MEDS: THIAMINE 100 MG TAB PO SCH (09:58)
[2021-09-25] MEDS: FIBER-CON 625 MG TAB PO SCH ×2 (09:59→21:50)
[2021-09-25] MEDS: TRIAMCINOLONE ACET 0.1% CREAM 80 GM EXT SCH ×3 (10:02→21:50)
[2021-09-25] MEDS: MAG SULF 1GM/100ML (MAG RUN) 1 GM in IV 1 EA IV SCH ×2 (10:10→11:19)
[2021-09-25] MEDS: ZINC SULFATE 220 MG CAP PO SCH (10:10)
[2021-09-25] MEDS: PANTOPRAZOLE 40MG VIAL (C9113 PER 1) IV SCH (10:21)
[2021-09-25] MEDS: CHLORHEXIDINE GLUCONATE 0.12 % 15ML UDC (PERIDEX ORAL RINSE) MT SCH ×2 (10:22→21:50)
[2021-09-25] MEDS ORDERED: POTASSIUM PHOSPHATE INJ 30 MMOL in D5W 500 ML IV ONE (12:00)
[2021-09-25] MEDS: HYDROXYCHLOROQUINE 200 MG TAB NG SCH ×2 (12:38→21:50)
[2021-09-25] MEDS: MIDAZOLAM INJ 2MG/2ML VIAL (J2250 PER 1MG) IV ONE ×2 (13:12→13:21)
[2021-09-25] MEDS ORDERED: PROHANCE 279.3MG/ML 15ML VIAL As Ordered ONE (20:33)
[2021-09-25] MEDS: fentaNYL 100 MCG/2 ML INJECTION IV PRN (20:55)
[2021-09-26] VITALS (23 sets, daily range): BP systolic 83–140; BP diastolic 59–93
[2021-09-26] MEDS: AMPICILLIN SOD/SULBACTAM SOD 3 GM in D5W MINI-BAG PLUS 100 ML IV SCH ×4 (01:00→19:46)
[2021-09-26] MEDS: dexmedeTOMidine 200 MCG in IV 1 EA IV SCH ×7 (01:10→23:39)
[2021-09-26] MEDS: fentaNYL 100 MCG/2 ML INJECTION IV PRN ×3 (04:37→18:13)
[2021-09-26] MEDS: LEVOTHYROXINE 25MCG TABLET (0.025MG) PO SCH (05:29)
[2021-09-26] MEDS: SODIUM CHLORIDE 0.9% INJ 10 ML SYR IV SCH ×2 (05:29→18:13)
[2021-09-26] MEDS: propofoL 1,000 MG in IV 1 EA IV SCH ×3 (05:50→23:39)
[2021-09-26 05:53] LABS: HEMATOCRIT 25.8 % (36.0-47.0); HEMOGLOBIN 9.1 g/dl (12.0-15.5); MEAN CORPUSCULAR HEMOGLOBIN 32.3 pg (27.0-33.0); MEAN CORPUSCULAR HGB CONC 35.3 g/dl (32.0-36.5); MEAN CORPUSCULAR VOLUME 91.5 fl (80.0-96.0); RED BLOOD COUNT 2.82 10^6/uL (4.00-5.40); WHITE BLOOD COUNT 7.2 10^3/uL (4.0-10.0)
[2021-09-26 06:21] LABS: ALT/SGPT 15 U/L (12-78); BLOOD UREA NITROGEN 11 MG/DL (7-18); CALCIUM LEVEL 7.1 MG/DL (8.5-10.1); CARBON DIOXIDE LEVEL 22 MEQ/L (21-32); CHLORIDE LEVEL 115 MEQ/L (98-107); CREATININE FOR GFR 0.72 MG/DL (0.55-1.30); GLOMERULAR FILTRATION RATE > 60.0 (>58); GLUCOSE, FASTING 131 MG/DL (70-100); POTASSIUM SERUM 3.4 MEQ/L (3.5-5.1); SODIUM LEVEL 144 MEQ/L (136-145)
[2021-09-26 06:22] LABS: ALBUMIN 0.7 GM/DL (3.2-5.2); BILIRUBIN,TOTAL 1.8 MG/DL (0.2-1.0); PHOSPHORUS LEVEL 2.8 MG/DL (2.5-4.9); TOTAL PROTEIN 3.6 GM/DL (6.4-8.2)
[2021-09-26 07:14] LABS: PLATELET COUNT, AUTOMATED 28 10^3/uL (150-450)
[2021-09-26 07:28] LABS: ANISOCYTOSIS 1+; BASOPHILS 3 % (0-1); LYMPHOCYTES 16 % (16-44); MONOCYTES 2 % (0-5); NEUTROPHILS 78 % (28-66); PLATELET ESTIMATE MARKED DECREASE (NORMAL); SMUDGE CELLS 1+
[2021-09-26 07:29] LABS: TEAR DROP CELLS 1+
[2021-09-26] MEDS ORDERED: FUROSEMIDE 20MG/2ML VIAL (J1940) IV ONE (09:40)
[2021-09-26] MEDS: FIBER-CON 625 MG TAB PO SCH ×2 (09:45→20:01)
[2021-09-26] MEDS: CHLORHEXIDINE GLUCONATE 0.12 % 15ML UDC (PERIDEX ORAL RINSE) MT SCH ×2 (09:45→20:01)
[2021-09-26] MEDS: THIAMINE 100 MG TAB PO SCH (09:46)
[2021-09-26] MEDS: VANICREAM MOISTURIZING SKIN CREAM 113GM TUBE TOP SCH ×2 (09:46→20:03)
[2021-09-26] MEDS: PANTOPRAZOLE 40MG VIAL (C9113 PER 1) IV SCH (09:46)
[2021-09-26] MEDS: NYSTATIN 100,000 UNITS/GM TOPICAL PWD 15 GM TOP SCH ×2 (09:46→20:02)
[2021-09-26] MEDS: ZINC SULFATE 220 MG CAP PO SCH (09:46)
[2021-09-26] MEDS: HYDROXYCHLOROQUINE 200 MG TAB NG SCH ×2 (09:46→20:01)
[2021-09-26] MEDS: MUPIROCIN 2% OINT 22 GM TUBE TOP SCH ×2 (09:47→20:01)
[2021-09-26] MEDS: TRIAMCINOLONE ACET 0.1% CREAM 80 GM EXT SCH ×3 (09:48→20:03)
[2021-09-26 09:56] LABS: INR 1.29; PROTHROMBIN TIME 16.5 SECONDS (12.7-14.5)
[2021-09-26 09:57] LABS: PARTIAL THROMBOPLASTIN TIME 42.7 SECONDS (25.9-37.0)
[2021-09-26 15:31] LABS: HEMATOCRIT 26.7 % (36.0-47.0); HEMOGLOBIN 9.2 g/dl (12.0-15.5); MEAN CORPUSCULAR HEMOGLOBIN 31.1 pg (27.0-33.0); MEAN CORPUSCULAR HGB CONC 34.5 g/dl (32.0-36.5); MEAN CORPUSCULAR VOLUME 90.2 fl (80.0-96.0); RED BLOOD COUNT 2.96 10^6/uL (4.00-5.40); WHITE BLOOD COUNT 6.1 10^3/uL (4.0-10.0)
[2021-09-26 15:32] LABS: PLATELET COUNT, AUTOMATED 29 10^3/uL (150-450)
[2021-09-26] MEDS ORDERED: POTASSIUM CHLORIDE 10% LIQ 20 MEQ/15 ML UDC PO ONE (16:00)
[2021-09-26] MEDS ORDERED: SODIUM CHLORIDE 0.9% 1000ML IV ONE (17:55)
[2021-09-26 19:54] LABS: PROTHROMBIN TIME 16.2 SECONDS (12.7-14.5)
[2021-09-26 19:56] LABS: PARTIAL THROMBOPLASTIN TIME 38.3 SECONDS (25.9-37.0)
[2021-09-26 19:57] LABS: PT 1:2 SUBSTITUTION 14.1 SECONDS
[2021-09-26 19:59] LABS: APTT 1:2 SUBSTITUTION 33.8 SECONDS
[2021-09-27] VITALS (29 sets, daily range): BP systolic 86–121; BP diastolic 47–81
[2021-09-27] MEDS: AMPICILLIN SOD/SULBACTAM SOD 3 GM in D5W MINI-BAG PLUS 100 ML IV SCH ×4 (00:36→18:23)
[2021-09-27] MEDS: fentaNYL 100 MCG/2 ML INJECTION IV PRN (01:46)
[2021-09-27] MEDS: dexmedeTOMidine 200 MCG in IV 1 EA IV SCH ×6 (03:15→23:50)
[2021-09-27 04:36] LABS: BASO # 0.1 10^3/uL (0.0-0.2); BASO % 1.5 % (0.0-1.0); HEMATOCRIT 25.7 % (36.0-47.0); HEMOGLOBIN 8.9 g/dl (12.0-15.5); LYMPH # 1.3 10^3/uL (1.5-5.0); LYMPH % 20.2 % (24.0-44.0); MEAN CORPUSCULAR HEMOGLOBIN 31.6 pg (27.0-33.0); MEAN CORPUSCULAR HGB CONC 34.6 g/dl (32.0-36.5); MEAN CORPUSCULAR VOLUME 91.1 fl (80.0-96.0); MONO # 0.4 10^3/uL (0.0-0.8); MONO % 6.3 % (2.0-8.0); NEUTROPHILS # 4.4 10^3/uL (1.5-8.5); NEUTROPHILS % 70.9 % (36.0-66.0); PLATELET COUNT, AUTOMATED 30 10^3/uL (150-450); RED BLOOD COUNT 2.82 10^6/uL (4.00-5.40); WHITE BLOOD COUNT 6.2 10^3/uL (4.0-10.0)
[2021-09-27 04:57] LABS: ALBUMIN 0.7 GM/DL (3.2-5.2); ALT/SGPT 18 U/L (12-78); BILIRUBIN,TOTAL 1.5 MG/DL (0.2-1.0); BLOOD UREA NITROGEN 10 MG/DL (7-18); CALCIUM LEVEL 7.1 MG/DL (8.5-10.1); CARBON DIOXIDE LEVEL 23 MEQ/L (21-32); CHLORIDE LEVEL 114 MEQ/L (98-107); CREATININE FOR GFR 0.64 MG/DL (0.55-1.30); GLOMERULAR FILTRATION RATE > 60.0 (>58); GLUCOSE, FASTING 105 MG/DL (70-100); POTASSIUM SERUM 3.6 MEQ/L (3.5-5.1); SODIUM LEVEL 147 MEQ/L (136-145); TOTAL PROTEIN 3.7 GM/DL (6.4-8.2)
[2021-09-27] MEDS: SODIUM CHLORIDE 0.9% INJ 10 ML SYR IV SCH ×2 (05:09→17:58)
[2021-09-27] MEDS: LEVOTHYROXINE 25MCG TABLET (0.025MG) PO SCH (05:09)
[2021-09-27] MEDS ORDERED: MOM 30ML SUSPENSION UDC PO ONE (07:40)
[2021-09-27] MEDS: TRIAMCINOLONE ACET 0.1% CREAM 80 GM EXT SCH ×4 (09:00→20:02)
[2021-09-27] MEDS: CHLORHEXIDINE GLUCONATE 0.12 % 15ML UDC (PERIDEX ORAL RINSE) MT SCH ×2 (09:04→20:00)
[2021-09-27] MEDS: PANTOPRAZOLE 40MG VIAL (C9113 PER 1) IV SCH (09:04)
[2021-09-27] MEDS: THIAMINE 100 MG TAB PO SCH (09:05)
[2021-09-27] MEDS: FIBER-CON 625 MG TAB PO SCH ×2 (09:05→20:00)
[2021-09-27] MEDS: HYDROXYCHLOROQUINE 200 MG TAB NG SCH ×2 (09:05→20:00)
[2021-09-27] MEDS: ZINC SULFATE 220 MG CAP PO SCH (09:05)
[2021-09-27] MEDS: VANICREAM MOISTURIZING SKIN CREAM 113GM TUBE TOP SCH ×2 (09:06→20:02)
[2021-09-27] MEDS: NYSTATIN 100,000 UNITS/GM TOPICAL PWD 15 GM TOP SCH ×2 (09:06→20:01)
[2021-09-27] MEDS: MUPIROCIN 2% OINT 22 GM TUBE TOP SCH ×2 (09:06→20:01)
[2021-09-27 12:10] LABS: ANA (HEP2) Negative (.); ANTI DS-DNA AB Negative (Negative); COMPLEMENT TOTAL (CH50) 44 U/mL (>41)
[2021-09-27 12:18] LABS: ABG BASE EXCESS -4.8 (-2.0-2.0); ABG HCO3 20.5 MEQ/L (22.0-26.0); ABG O2 SATURATION 79.3 % (95.0-99.0); ABG PARTIAL PRESSURE CO2 38.7 mmHg (35.0-45.0); ABG STANDARD HCO3 20.2 MEQ/L (22.0-26.0); ABG TOTAL CO2 21.7 MEQ/L (22.0-29.0); ABG pH (ARTERIAL) 7.342 UNITS (7.350-7.450)
[2021-09-27 12:22] LABS: ABG PARTIAL PRESSURE O2 45.8 mmHg (75.0-100.0)
[2021-09-27] MEDS: propofoL 1,000 MG in IV 1 EA IV SCH ×2 (12:38→23:50)
[2021-09-27 13:03] LABS: ABG BASE EXCESS -3.5 (-2.0-2.0); ABG HCO3 20.6 MEQ/L (22.0-26.0); ABG PARTIAL PRESSURE CO2 33.1 mmHg (35.0-45.0); ABG PARTIAL PRESSURE O2 95.1 mmHg (75.0-100.0); ABG STANDARD HCO3 21.6 MEQ/L (22.0-26.0); ABG TOTAL CO2 21.6 MEQ/L (22.0-29.0); ABG pH (ARTERIAL) 7.411 UNITS (7.350-7.450)
[2021-09-27 15:09] LABS: BODY FLUID CULTURE Not indicated. (.); LEGIONELLA ANTIGEN URINE Negative (Negative); ORGANISM ID Not indicated. (.); SPECIMEN SOURCE Urine (.); URINE STREP PNEUMONIAE ANTIGEN Negative (Negative)
[2021-09-28] VITALS (24 sets, daily range): BP systolic 86–117; BP diastolic 55–75; O2SAT 90
[2021-09-28] MEDS: AMPICILLIN SOD/SULBACTAM SOD 3 GM in D5W MINI-BAG PLUS 100 ML IV SCH ×4 (00:11→18:12)
[2021-09-28] MEDS: fentaNYL 100 MCG/2 ML INJECTION IV PRN ×2 (02:16→23:29)
[2021-09-28 03:09] LABS: BETA-2 GLYCOPROTEIN I ABY IGA <9 (0-25); BETA-2 GLYCOPROTEIN I ABY IGG <9 (0-20); BETA-2 GLYCOPROTEIN I ABY IGM 9 (0-32); CARDIOLIPIN IGA ANTIBODY <9 APL U/mL (0-11); CARDIOLIPIN IGG ANTIBODY <9 GPL U/mL (0-14); CARDIOLIPIN IGM ANTIBODY 15 MPL U/mL (0-12)
[2021-09-28] MEDS: dexmedeTOMidine 200 MCG in IV 1 EA IV SCH ×5 (03:51→21:14)
[2021-09-28 04:17] LABS: BASO # 0.1 10^3/uL (0.0-0.2); BASO % 0.9 % (0.0-1.0); HEMATOCRIT 24.5 % (36.0-47.0); HEMOGLOBIN 8.4 g/dl (12.0-15.5); LYMPH % 22.7 % (24.0-44.0); MEAN CORPUSCULAR HEMOGLOBIN 31.1 pg (27.0-33.0); MEAN CORPUSCULAR HGB CONC 34.3 g/dl (32.0-36.5); MEAN CORPUSCULAR VOLUME 90.7 fl (80.0-96.0); MONO # 0.6 10^3/uL (0.0-0.8); MONO % 6.4 % (2.0-8.0); NEUTROPHILS # 5.9 10^3/uL (1.5-8.5); NEUTROPHILS % 66.8 % (36.0-66.0); WHITE BLOOD COUNT 8.9 10^3/uL (4.0-10.0)
[2021-09-28 04:18] LABS: PLATELET COUNT, AUTOMATED 51 10^3/uL (150-450)
[2021-09-28 04:43] LABS: ALBUMIN 0.6 GM/DL (3.2-5.2); ALT/SGPT 22 U/L (12-78); BILIRUBIN,TOTAL 1.4 MG/DL (0.2-1.0); BLOOD UREA NITROGEN 10 MG/DL (7-18); CALCIUM LEVEL 7.1 MG/DL (8.5-10.1); CARBON DIOXIDE LEVEL 24 MEQ/L (21-32); CHLORIDE LEVEL 111 MEQ/L (98-107); CREATININE FOR GFR 0.62 MG/DL (0.55-1.30); GLOMERULAR FILTRATION RATE > 60.0 (>58); GLUCOSE, FASTING 107 MG/DL (70-100); POTASSIUM SERUM 3.9 MEQ/L (3.5-5.1); SODIUM LEVEL 142 MEQ/L (136-145); TOTAL PROTEIN 3.7 GM/DL (6.4-8.2)
[2021-09-28] MEDS: LEVOTHYROXINE 25MCG TABLET (0.025MG) PO SCH (05:16)
[2021-09-28] MEDS: SODIUM CHLORIDE 0.9% INJ 10 ML SYR IV SCH ×2 (05:45→18:14)
[2021-09-28] MEDS: propofoL 1,000 MG in IV 1 EA IV SCH ×3 (06:10→21:17)
[2021-09-28] MEDS: HYDROXYCHLOROQUINE 200 MG TAB NG SCH ×2 (08:21→20:01)
[2021-09-28] MEDS: CHLORHEXIDINE GLUCONATE 0.12 % 15ML UDC (PERIDEX ORAL RINSE) MT SCH ×2 (08:21→20:01)
[2021-09-28] MEDS: PANTOPRAZOLE 40MG VIAL (C9113 PER 1) IV SCH (08:22)
[2021-09-28] MEDS: FIBER-CON 625 MG TAB PO SCH ×2 (08:22→20:01)
[2021-09-28] MEDS: ZINC SULFATE 220 MG CAP PO SCH (08:22)
[2021-09-28] MEDS: THIAMINE 100 MG TAB PO SCH (08:22)
[2021-09-28] MEDS: NYSTATIN 100,000 UNITS/GM TOPICAL PWD 15 GM TOP SCH ×2 (08:23→20:09)
[2021-09-28] MEDS: VANICREAM MOISTURIZING SKIN CREAM 113GM TUBE TOP SCH ×2 (08:24→20:08)
[2021-09-28] MEDS: TRIAMCINOLONE ACET 0.1% CREAM 80 GM EXT SCH ×3 (09:00→20:09)
[2021-09-28] MEDS: MUPIROCIN 2% OINT 22 GM TUBE TOP SCH ×2 (12:53→20:08)
[2021-09-29] VITALS (23 sets, daily range): BP systolic 83–119; BP diastolic 51–74
[2021-09-29] MEDS: AMPICILLIN SOD/SULBACTAM SOD 3 GM in D5W MINI-BAG PLUS 100 ML IV SCH ×4 (00:01→18:01)
[2021-09-29] MEDS: dexmedeTOMidine 200 MCG in IV 1 EA IV SCH ×6 (00:13→16:42)
[2021-09-29] MEDS: propofoL 1,000 MG in IV 1 EA IV SCH ×2 (02:35→12:23)
[2021-09-29 04:13] LABS: BASO # 0.1 10^3/uL (0.0-0.2); BASO % 0.9 % (0.0-1.0); HEMOGLOBIN 8.2 g/dl (12.0-15.5); LYMPH # 2.1 10^3/uL (1.5-5.0); LYMPH % 18.2 % (24.0-44.0); MEAN CORPUSCULAR HEMOGLOBIN 31.3 pg (27.0-33.0); MEAN CORPUSCULAR HGB CONC 34.2 g/dl (32.0-36.5); MEAN CORPUSCULAR VOLUME 91.6 fl (80.0-96.0); MONO % 8.2 % (2.0-8.0); NEUTROPHILS # 7.9 10^3/uL (1.5-8.5); NEUTROPHILS % 67.7 % (36.0-66.0); RED BLOOD COUNT 2.62 10^6/uL (4.00-5.40); WHITE BLOOD COUNT 11.7 10^3/uL (4.0-10.0)
[2021-09-29 04:18] LABS: PLATELET COUNT, AUTOMATED 77 10^3/uL (150-450)
[2021-09-29 04:41] LABS: ALBUMIN 0.6 GM/DL (3.2-5.2); ALT/SGPT 28 U/L (12-78); BILIRUBIN,TOTAL 1.4 MG/DL (0.2-1.0); BLOOD UREA NITROGEN 10 MG/DL (7-18); CALCIUM LEVEL 6.9 MG/DL (8.5-10.1); CARBON DIOXIDE LEVEL 25 MEQ/L (21-32); CHLORIDE LEVEL 109 MEQ/L (98-107); CREATININE FOR GFR 0.61 MG/DL (0.55-1.30); GLOMERULAR FILTRATION RATE > 60.0 (>58); GLUCOSE, FASTING 108 MG/DL (70-100); POTASSIUM SERUM 3.4 MEQ/L (3.5-5.1); SODIUM LEVEL 140 MEQ/L (136-145); TOTAL PROTEIN 3.7 GM/DL (6.4-8.2)
[2021-09-29] MEDS: LEVOTHYROXINE 25MCG TABLET (0.025MG) PO SCH (05:01)
[2021-09-29] MEDS: SODIUM CHLORIDE 0.9% INJ 10 ML SYR IV SCH ×2 (06:03→17:59)
[2021-09-29] MEDS: PANTOPRAZOLE 40MG VIAL (C9113 PER 1) IV SCH (08:11)
[2021-09-29] MEDS: THIAMINE 100 MG TAB PO SCH (08:11)
[2021-09-29] MEDS: CHLORHEXIDINE GLUCONATE 0.12 % 15ML UDC (PERIDEX ORAL RINSE) MT SCH ×2 (08:11→20:07)
[2021-09-29] MEDS: ZINC SULFATE 220 MG CAP PO SCH (08:11)
[2021-09-29] MEDS: HYDROXYCHLOROQUINE 200 MG TAB NG SCH ×2 (08:11→20:07)
[2021-09-29] MEDS: ENOXAPARIN 30MG/0.3ML SYRINGE (J1650 PER 10MG) SC SCH (08:11)
[2021-09-29] MEDS: NYSTATIN 100,000 UNITS/GM TOPICAL PWD 15 GM TOP SCH ×2 (08:12→20:08)
[2021-09-29] MEDS: MUPIROCIN 2% OINT 22 GM TUBE TOP SCH ×2 (08:12→20:08)
[2021-09-29] MEDS: VANICREAM MOISTURIZING SKIN CREAM 113GM TUBE TOP SCH ×2 (08:13→20:09)
[2021-09-29] MEDS: FIBER-CON 625 MG TAB PO SCH ×2 (08:44→20:09)
[2021-09-29] MEDS: TRIAMCINOLONE ACET 0.1% CREAM 80 GM EXT SCH (08:45)
[2021-09-29] MEDS ORDERED: POTASSIUM CHLORIDE 10% LIQ 20 MEQ/15 ML UDC PO ONE (09:40)
[2021-09-29] MEDS: fentaNYL 100 MCG/2 ML INJECTION IV PRN (20:14)
[2021-09-30] VITALS (15 sets, daily range): BP systolic 89–126; BP diastolic 35–84
[2021-09-30] MEDS: AMPICILLIN SOD/SULBACTAM SOD 3 GM in D5W MINI-BAG PLUS 100 ML IV SCH ×4 (00:41→18:07)
[2021-09-30] MEDS: dexmedeTOMidine 200 MCG in IV 1 EA IV SCH ×3 (00:42→06:24)
[2021-09-30] MEDS: propofoL 1,000 MG in IV 1 EA IV SCH (03:48)
[2021-09-30 04:47] LABS: ALBUMIN 0.5 GM/DL (3.2-5.2); ALT/SGPT 34 U/L (12-78); BILIRUBIN,TOTAL 1.3 MG/DL (0.2-1.0); BLOOD UREA NITROGEN 12 MG/DL (7-18); CARBON DIOXIDE LEVEL 22 MEQ/L (21-32); CHLORIDE LEVEL 109 MEQ/L (98-107); CREATININE FOR GFR 0.71 MG/DL (0.55-1.30); GLOMERULAR FILTRATION RATE > 60.0 (>58); GLUCOSE, FASTING 121 MG/DL (70-100); POTASSIUM SERUM 3.5 MEQ/L (3.5-5.1); SODIUM LEVEL 138 MEQ/L (136-145); TOTAL PROTEIN 4.1 GM/DL (6.4-8.2)
[2021-09-30 04:56] LABS: BASO # 0.1 10^3/uL (0.0-0.2); BASO % 0.5 % (0.0-1.0); HEMATOCRIT 23.8 % (36.0-47.0); HEMOGLOBIN 7.9 g/dl (12.0-15.5); LYMPH # 2.2 10^3/uL (1.5-5.0); MEAN CORPUSCULAR HEMOGLOBIN 30.9 pg (27.0-33.0); MEAN CORPUSCULAR HGB CONC 33.2 g/dl (32.0-36.5); MONO # 1.2 10^3/uL (0.0-0.8); MONO % 7.5 % (2.0-8.0); NEUTROPHILS # 11.4 10^3/uL (1.5-8.5); PLATELET COUNT, AUTOMATED 113 10^3/uL (150-450); RED BLOOD COUNT 2.56 10^6/uL (4.00-5.40); WHITE BLOOD COUNT 15.4 10^3/uL (4.0-10.0)
[2021-09-30] MEDS: LEVOTHYROXINE 25MCG TABLET (0.025MG) PO SCH (06:23)
[2021-09-30] MEDS: SODIUM CHLORIDE 0.9% INJ 10 ML SYR IV SCH ×2 (06:24→18:07)
[2021-09-30] MEDS: ENOXAPARIN 30MG/0.3ML SYRINGE (J1650 PER 10MG) SC SCH (08:08)
[2021-09-30] MEDS: FIBER-CON 625 MG TAB PO SCH ×2 (08:08→20:50)
[2021-09-30] MEDS: HYDROXYCHLOROQUINE 200 MG TAB NG SCH ×2 (08:08→20:50)
[2021-09-30] MEDS: PANTOPRAZOLE 40MG VIAL (C9113 PER 1) IV SCH (08:08)
[2021-09-30] MEDS: CHLORHEXIDINE GLUCONATE 0.12 % 15ML UDC (PERIDEX ORAL RINSE) MT SCH (08:08)
[2021-09-30] MEDS: THIAMINE 100 MG TAB PO SCH (08:08)
[2021-09-30] MEDS: VANICREAM MOISTURIZING SKIN CREAM 113GM TUBE TOP SCH ×2 (08:09→20:51)
[2021-09-30] MEDS: MUPIROCIN 2% OINT 22 GM TUBE TOP SCH ×2 (08:09→20:51)
[2021-09-30] MEDS: NYSTATIN 100,000 UNITS/GM TOPICAL PWD 15 GM TOP SCH (08:09)
[2021-09-30] MEDS ORDERED: ONDANSETRON 4MG/2ML VIAL IV SCH (14:00)
[2021-09-30] MEDS ORDERED: ACETAMINOPHEN *IV* 1,000 MG in IV 1 EA IV ONE (16:00)
[2021-09-30] MEDS ORDERED: ONDANSETRON 4MG/2ML VIAL IV PRN (18:30)
[2021-09-30 19:30] LABS: CLOSTRIDIUM DIFFICILE PCR NEGATIVE (NEGATIVE)
[2021-09-30] MEDS ORDERED: ACETAMINOPHEN *IV* 650 MG in IV 1 EA IV ONE (19:35)
[2021-09-30] MEDS: OLANZapine ORAL DISINTEGRATING TAB 5MG PO SCH (20:51)
[2021-10-01] VITALS: BP 94/52
[2021-10-01] MEDS: AMPICILLIN SOD/SULBACTAM SOD 3 GM in D5W MINI-BAG PLUS 100 ML IV SCH ×4 (00:23→18:20)
[2021-10-01] MEDS ORDERED: METOCLOPRAMIDE INJ 10MG/2ML VIAL (J2765 PER 1) IV ONE (03:25)
[2021-10-01] MEDS ORDERED: diphenhydrAMINE 50MG/ML VIAL (J1200) IV ONE (03:25)
[2021-10-01] MEDS ORDERED: KETOROLAC 30 MG/ML 1ML VIAL IV ONE (03:25)
[2021-10-01 04:00] VITALS: BP 96/58
[2021-10-01] MEDS: DEXTROSE 50% 50 ML SYRINGE IV PRN (04:34)
[2021-10-01] MEDS: LEVOTHYROXINE 25MCG TABLET (0.025MG) PO SCH (05:08)
[2021-10-01] MEDS: SODIUM CHLORIDE 0.9% INJ 10 ML SYR IV PRN (05:35)
[2021-10-01] MEDS: SODIUM CHLORIDE 0.9% INJ 10 ML SYR IV SCH ×2 (05:35→18:19)
[2021-10-01 06:12] LABS: BASO # 0.1 10^3/uL (0.0-0.2); BASO % 0.5 % (0.0-1.0); HEMATOCRIT 21.5 % (36.0-47.0); HEMOGLOBIN 7.1 g/dl (12.0-15.5); LYMPH # 2.9 10^3/uL (1.5-5.0); MEAN CORPUSCULAR HEMOGLOBIN 30.9 pg (27.0-33.0); MEAN CORPUSCULAR VOLUME 93.5 fl (80.0-96.0); MONO # 1.5 10^3/uL (0.0-0.8); MONO % 7.6 % (2.0-8.0); NEUTROPHILS # 14.4 10^3/uL (1.5-8.5); NEUTROPHILS % 73.7 % (36.0-66.0); PLATELET COUNT, AUTOMATED 170 10^3/uL (150-450); WHITE BLOOD COUNT 19.6 10^3/uL (4.0-10.0)
[2021-10-01 06:46] LABS: ALBUMIN 0.5 GM/DL (3.2-5.2); ALT/SGPT 26 U/L (12-78); BILIRUBIN,TOTAL 1.2 MG/DL (0.2-1.0); BLOOD UREA NITROGEN 14 MG/DL (7-18); CALCIUM LEVEL 6.9 MG/DL (8.5-10.1); CARBON DIOXIDE LEVEL 26 MEQ/L (21-32); CHLORIDE LEVEL 111 MEQ/L (98-107); CREATININE FOR GFR 0.73 MG/DL (0.55-1.30); GLOMERULAR FILTRATION RATE > 60.0 (>58); GLUCOSE, FASTING 78 MG/DL (70-100); POTASSIUM SERUM 2.7 MEQ/L (3.5-5.1); SODIUM LEVEL 142 MEQ/L (136-145); TOTAL PROTEIN 3.5 GM/DL (6.4-8.2)
[2021-10-01 07:46] VITALS: BP 96/59
[2021-10-01] MEDS: KCL 10MEQ/100ML SWI (KRUN) 10 MEQ in IV 1 EA IV SCH ×6 (08:04→14:45)
[2021-10-01] MEDS: ENOXAPARIN 30MG/0.3ML SYRINGE (J1650 PER 10MG) SC SCH (08:04)
[2021-10-01] MEDS: MUPIROCIN 2% OINT 22 GM TUBE TOP SCH ×2 (08:05→22:48)
[2021-10-01] MEDS: VANICREAM MOISTURIZING SKIN CREAM 113GM TUBE TOP SCH ×2 (08:05→22:48)
[2021-10-01] MEDS: THIAMINE 100 MG TAB PO SCH (09:00)
[2021-10-01] MEDS: FIBER-CON 625 MG TAB PO SCH ×2 (09:00→22:46)
[2021-10-01] MEDS: HYDROXYCHLOROQUINE 200 MG TAB NG SCH ×2 (09:00→22:47)
[2021-10-01 12:00] VITALS: BP 100/62
[2021-10-01] MEDS ORDERED: DEXTROSE 50% 50 ML SYRINGE IV STA ×2 (12:13→14:16)
[2021-10-01] MEDS ORDERED: VARIBAR NECTAR 40% w/v 240ML SUSP BTL As Ordered ONE (12:35)
[2021-10-01] MEDS ORDERED: E-Z-PAQUE 96% w/w SUSP 176GM BTL As Ordered ONE (12:35)
[2021-10-01] MEDS ORDERED: BARIUM SULFATE 700 MG TABLET (E-Z-DISK) As Ordered ONE (12:35)
[2021-10-01] MEDS ORDERED: VARIBAR PUDDING 40% w/v 230ML TUBE As Ordered ONE (12:35)
[2021-10-01] MEDS ORDERED: D5W/0.45% SODIUM CHLORIDE 1,000 ML IV SCH (14:25)
[2021-10-01 16:00] VITALS: BP 97/66
[2021-10-01] MEDS ORDERED: KCL 10MEQ/100ML SWI (KRUN) 10 MEQ in IV 1 EA IV ONE (16:20)
[2021-10-01 19:23] LABS: BLOOD UREA NITROGEN 15 MG/DL (7-18); CALCIUM LEVEL 7.1 MG/DL (8.5-10.1); CARBON DIOXIDE LEVEL 24 MEQ/L (21-32); CHLORIDE LEVEL 110 MEQ/L (98-107); CREATININE FOR GFR 0.82 MG/DL (0.55-1.30); GLOMERULAR FILTRATION RATE > 60.0 (>58); GLUCOSE, FASTING 70 MG/DL (70-100); POTASSIUM SERUM 3.3 MEQ/L (3.5-5.1); SODIUM LEVEL 141 MEQ/L (136-145)
[2021-10-01 20:00] VITALS: BP 124/68
[2021-10-01] MEDS: OLANZapine ORAL DISINTEGRATING TAB 5MG PO SCH (22:28)
[2021-10-01] MEDS: D10W/0.45% SODIUM CHLORIDE 1,000 ML IV SCH (23:09)
[2021-10-02] VITALS: BP 108/69
[2021-10-02] MEDS: AMPICILLIN SOD/SULBACTAM SOD 3 GM in D5W MINI-BAG PLUS 100 ML IV SCH ×2 (02:16→06:15)
[2021-10-02 04:00] VITALS: BP 103/66
[2021-10-02] MEDS: SODIUM CHLORIDE 0.9% INJ 10 ML SYR IV SCH ×2 (06:15→20:11)
[2021-10-02] MEDS: LEVOTHYROXINE 25MCG TABLET (0.025MG) PO SCH (06:31)
[2021-10-02 06:36] LABS: BASO # 0.1 10^3/uL (0.0-0.2); BASO % 0.5 % (0.0-1.0); HEMATOCRIT 22.3 % (36.0-47.0); HEMOGLOBIN 7.3 g/dl (12.0-15.5); LYMPH # 3.1 10^3/uL (1.5-5.0); LYMPH % 15.9 % (24.0-44.0); MEAN CORPUSCULAR HEMOGLOBIN 31.5 pg (27.0-33.0); MEAN CORPUSCULAR HGB CONC 32.7 g/dl (32.0-36.5); MEAN CORPUSCULAR VOLUME 96.1 fl (80.0-96.0); MONO # 1.3 10^3/uL (0.0-0.8); MONO % 6.6 % (2.0-8.0); NEUTROPHILS # 14.5 10^3/uL (1.5-8.5); PLATELET COUNT, AUTOMATED 236 10^3/uL (150-450); RED BLOOD COUNT 2.32 10^6/uL (4.00-5.40); WHITE BLOOD COUNT 19.3 10^3/uL (4.0-10.0)
[2021-10-02 07:02] LABS: PHOSPHORUS LEVEL 3.2 MG/DL (2.5-4.9)
[2021-10-02 07:08] LABS: ALBUMIN 0.6 GM/DL (3.2-5.2); ALT/SGPT 29 U/L (12-78); BILIRUBIN,TOTAL 1.2 MG/DL (0.2-1.0); BLOOD UREA NITROGEN 17 MG/DL (7-18); CALCIUM LEVEL 7.4 MG/DL (8.5-10.1); CARBON DIOXIDE LEVEL 25 MEQ/L (21-32); CHLORIDE LEVEL 108 MEQ/L (98-107); CREATININE FOR GFR 0.79 MG/DL (0.55-1.30); GLOMERULAR FILTRATION RATE > 60.0 (>58); GLUCOSE, FASTING 80 MG/DL (70-100); POTASSIUM SERUM 2.9 MEQ/L (3.5-5.1); SODIUM LEVEL 141 MEQ/L (136-145); TOTAL PROTEIN 4.4 GM/DL (6.4-8.2)
[2021-10-02 08:27] VITALS: BP 108/74
[2021-10-02] MEDS: KCL 10MEQ/100ML SWI (KRUN) 10 MEQ in IV 1 EA IV SCH ×6 (08:34→14:26)
[2021-10-02] MEDS: LACTOBACILLUS ACIDOPHILUS CAP (BACID) PO SCH (09:24)
[2021-10-02] MEDS: ENOXAPARIN 30MG/0.3ML SYRINGE (J1650 PER 10MG) SC SCH (09:24)
[2021-10-02] MEDS: HYDROXYCHLOROQUINE 200 MG TAB NG SCH ×2 (09:24→21:41)
[2021-10-02] MEDS: FIBER-CON 625 MG TAB PO SCH ×2 (09:24→21:42)
[2021-10-02] MEDS: THIAMINE 100 MG TAB PO SCH (09:25)
[2021-10-02] MEDS: VANICREAM MOISTURIZING SKIN CREAM 113GM TUBE TOP SCH ×2 (09:26→21:45)
[2021-10-02] MEDS: DIVALPROEX 250 MG TAB PO SCH ×2 (09:26→21:41)
[2021-10-02] MEDS: MUPIROCIN 2% OINT 22 GM TUBE TOP SCH ×2 (09:27→21:45)
[2021-10-02 12:16] VITALS: BP 113/73
[2021-10-02] MEDS ORDERED: KETOROLAC 30 MG/ML 1ML VIAL IV PRN (14:35)
[2021-10-02] MEDS ORDERED: POTASSIUM CHLORIDE 10MEQ SR TABLET PO ONE (15:00)
[2021-10-02 15:35] VITALS: BP 98/60
[2021-10-02 20:00] VITALS: BP 106/60
[2021-10-02] MEDS: NICOTINE 21MG/24HR 1 EA TRANSDERMAL TD SCH (20:10)
[2021-10-02] MEDS: D10W/0.45% SODIUM CHLORIDE 1,000 ML IV SCH (20:50)
[2021-10-02] MEDS ORDERED: OLANZapine ORAL DISINTEGRATING TAB 5MG PO SCH (21:00)
[2021-10-02] MEDS: MIRTAZAPINE 7.5MG PER 1/2 TABLET PO SCH (21:41)
[2021-10-02] MEDS: DULoxetine 30MG CAPSULE (CYMBALTA) PO SCH (21:42)
[2021-10-02] MEDS: OLANZapine ORAL DISINTEGRATING TAB 5MG PO SCH (22:29)
[2021-10-03] VITALS: BP 102/61
[2021-10-03 01:27] LABS: BLOOD UREA NITROGEN 16 MG/DL (7-18); CALCIUM LEVEL 7.3 MG/DL (8.5-10.1); CARBON DIOXIDE LEVEL 23 MEQ/L (21-32); CHLORIDE LEVEL 110 MEQ/L (98-107); CREATININE FOR GFR 0.74 MG/DL (0.55-1.30); GLOMERULAR FILTRATION RATE > 60.0 (>58); GLUCOSE, FASTING 95 MG/DL (70-100); POTASSIUM SERUM 3.4 MEQ/L (3.5-5.1); SODIUM LEVEL 143 MEQ/L (136-145)
[2021-10-03] MEDS ORDERED: POTASSIUM CHLORIDE 10% LIQ 20 MEQ/15 ML UDC PO ONE (01:45)
[2021-10-03] MEDS: KCL 10MEQ/100ML SWI (KRUN) 10 MEQ in IV 1 EA IV SCH ×3 (02:47→06:12)
[2021-10-03 04:00] VITALS: BP 106/70
[2021-10-03] MEDS: SODIUM CHLORIDE 0.9% INJ 10 ML SYR IV SCH ×2 (06:00→18:08)
[2021-10-03] MEDS: LEVOTHYROXINE 25MCG TABLET (0.025MG) PO SCH (06:12)
[2021-10-03] MEDS ORDERED: KCL 20MEQ IN 100ML SWI (KRUN) 20 MEQ in IV 1 EA IV ONE ×2 (07:00)
[2021-10-03 07:41] LABS: BASO # 0.1 10^3/uL (0.0-0.2); BASO % 0.5 % (0.0-1.0); EOS # 0.1 10^3/uL (0.0-0.5); EOS % 0.5 % (0.0-3.0); HEMOGLOBIN 7.3 g/dl (12.0-15.5); LYMPH # 2.4 10^3/uL (1.5-5.0); LYMPH % 12.2 % (24.0-44.0); MEAN CORPUSCULAR HEMOGLOBIN 31.6 pg (27.0-33.0); MEAN CORPUSCULAR HGB CONC 31.7 g/dl (32.0-36.5); MEAN CORPUSCULAR VOLUME 99.6 fl (80.0-96.0); MONO # 1.1 10^3/uL (0.0-0.8); MONO % 5.6 % (2.0-8.0); NEUTROPHILS # 15.7 10^3/uL (1.5-8.5); NEUTROPHILS % 79.6 % (36.0-66.0); PLATELET COUNT, AUTOMATED 236 10^3/uL (150-450); RED BLOOD COUNT 2.31 10^6/uL (4.00-5.40); WHITE BLOOD COUNT 19.8 10^3/uL (4.0-10.0)
[2021-10-03 08:00] VITALS: BP 122/76
[2021-10-03 08:19] LABS: MAGNESIUM LEVEL 2.1 MG/DL (1.8-2.4); PHOSPHORUS LEVEL 3.3 MG/DL (2.5-4.9)
[2021-10-03] MEDS: NICOTINE 21MG/24HR 1 EA TRANSDERMAL TD SCH (09:00)
[2021-10-03] MEDS ORDERED: KCL 10MEQ/100ML SWI (KRUN) 10 MEQ in IV 1 EA IV SCH (09:19)
[2021-10-03] MEDS ORDERED: KCL 10MEQ/100ML SWI (KRUN) 10 MEQ in IV 1 EA IV ONE (09:30)
[2021-10-03] MEDS: FIBER-CON 625 MG TAB PO SCH ×2 (09:31→22:16)
[2021-10-03] MEDS: LACTOBACILLUS ACIDOPHILUS CAP (BACID) PO SCH (09:33)
[2021-10-03] MEDS: HYDROXYCHLOROQUINE 200 MG TAB NG SCH ×2 (09:34→22:16)
[2021-10-03] MEDS: THIAMINE 100 MG TAB PO SCH (09:34)
[2021-10-03] MEDS: ENOXAPARIN 30MG/0.3ML SYRINGE (J1650 PER 10MG) SC SCH (09:36)
[2021-10-03] MEDS: DIVALPROEX 250 MG TAB PO SCH (09:37)
[2021-10-03] MEDS: VANICREAM MOISTURIZING SKIN CREAM 113GM TUBE TOP SCH (09:38)
[2021-10-03] MEDS: MUPIROCIN 2% OINT 22 GM TUBE TOP SCH ×2 (09:38→22:17)
[2021-10-03] MEDS: SODIUM CHLORIDE 0.9% INJ 10 ML SYR IV PRN (11:44)
[2021-10-03 12:00] VITALS: BP 107/63
[2021-10-03 12:45] LABS: ALBUMIN 0.6 GM/DL (3.2-5.2); ALT/SGPT 32 U/L (12-78); BILIRUBIN,TOTAL 1.1 MG/DL (0.2-1.0); BLOOD UREA NITROGEN 14 MG/DL (7-18); CALCIUM LEVEL 7.3 MG/DL (8.5-10.1); CARBON DIOXIDE LEVEL 24 MEQ/L (21-32); CHLORIDE LEVEL 113 MEQ/L (98-107); CREATININE FOR GFR 0.73 MG/DL (0.55-1.30); GLOMERULAR FILTRATION RATE > 60.0 (>58); GLUCOSE, FASTING 93 MG/DL (70-100); SODIUM LEVEL 142 MEQ/L (136-145); TOTAL PROTEIN 4.1 GM/DL (6.4-8.2)
[2021-10-03] MEDS: FERROUS SULFATE 325MG TAB PO SCH (14:49)
[2021-10-03 16:00] VITALS: BP 118/71
[2021-10-03 20:00] VITALS: BP 117/67
[2021-10-03] MEDS: D10W/0.45% SODIUM CHLORIDE 1,000 ML IV SCH (22:15)
[2021-10-03] MEDS: MIRTAZAPINE 7.5MG PER 1/2 TABLET PO SCH (22:16)
[2021-10-03] MEDS: DULoxetine 30MG CAPSULE (CYMBALTA) PO SCH (22:16)
[2021-10-03] MEDS: OLANZapine ORAL DISINTEGRATING TAB 5MG PO SCH (22:17)
[2021-10-04] VITALS (60 sets, daily range): BP systolic 72–139; BP diastolic 47–93
[2021-10-04] MEDS ORDERED: LEVALBUTEROL 1.25 MG/0.5 ML CONCENTRATE NEB INH PRN (01:15)
[2021-10-04] MEDS ORDERED: FUROSEMIDE 20MG/2ML VIAL (J1940) IV ONE (01:20)
[2021-10-04] MEDS ORDERED: diphenhydrAMINE 50MG/ML VIAL (J1200) IV PRN (01:30)
[2021-10-04] MEDS: VANICREAM MOISTURIZING SKIN CREAM 113GM TUBE TOP SCH ×3 (01:31→20:29)
[2021-10-04 02:02] LABS: ABG HCO3 20.5 MEQ/L (22.0-26.0); ABG O2 SATURATION 94.9 % (95.0-99.0); ABG PARTIAL PRESSURE CO2 30.2 mmHg (35.0-45.0); ABG PARTIAL PRESSURE O2 74.5 mmHg (75.0-100.0); ABG STANDARD HCO3 21.9 MEQ/L (22.0-26.0); ABG TOTAL CO2 21.4 MEQ/L (22.0-29.0)
[2021-10-04] MEDS ORDERED: SIMETHICONE 80MG CHEW TAB PO PRN (03:20)
[2021-10-04] MEDS ORDERED: ISOVUE-370 76% 100ML VIAL As Ordered ONE ×3 (03:35→14:49)
[2021-10-04 03:46] LABS: BASO # 0.1 10^3/uL (0.0-0.2); BASO % 0.3 % (0.0-1.0); EOS # 0.1 10^3/uL (0.0-0.5); EOS % 0.4 % (0.0-3.0); HEMATOCRIT 21.5 % (36.0-47.0); LYMPH # 2.7 10^3/uL (1.5-5.0); LYMPH % 10.7 % (24.0-44.0); MEAN CORPUSCULAR HEMOGLOBIN 31.5 pg (27.0-33.0); MEAN CORPUSCULAR HGB CONC 31.6 g/dl (32.0-36.5); MEAN CORPUSCULAR VOLUME 99.5 fl (80.0-96.0); MONO % 4.1 % (2.0-8.0); NEUTROPHILS # 20.8 10^3/uL (1.5-8.5); NEUTROPHILS % 83.2 % (36.0-66.0); PLATELET COUNT, AUTOMATED 244 10^3/uL (150-450); RED BLOOD COUNT 2.16 10^6/uL (4.00-5.40); WHITE BLOOD COUNT 24.9 10^3/uL (4.0-10.0)
[2021-10-04 03:56] LABS: D-DIMER QUANT 2382.08 ng/ml (<500)
[2021-10-04 04:10] LABS: ALBUMIN 0.6 GM/DL (3.2-5.2); ALT/SGPT 31 U/L (12-78); BILIRUBIN,TOTAL 1.2 MG/DL (0.2-1.0); BLOOD UREA NITROGEN 14 MG/DL (7-18); CALCIUM LEVEL 7.2 MG/DL (8.5-10.1); CARBON DIOXIDE LEVEL 23 MEQ/L (21-32); CHLORIDE LEVEL 115 MEQ/L (98-107); CREATININE FOR GFR 0.75 MG/DL (0.55-1.30); GLOMERULAR FILTRATION RATE > 60.0 (>58); GLUCOSE, FASTING 90 MG/DL (70-100); POTASSIUM SERUM 3.8 MEQ/L (3.5-5.1); SODIUM LEVEL 144 MEQ/L (136-145); TOTAL PROTEIN 4.1 GM/DL (6.4-8.2)
[2021-10-04 04:18] LABS: HEMOGLOBIN 6.8 g/dl (12.0-15.5)
[2021-10-04] MEDS: LEVOTHYROXINE 25MCG TABLET (0.025MG) PO SCH (06:10)
[2021-10-04] MEDS: SODIUM CHLORIDE 0.9% INJ 10 ML SYR IV SCH ×2 (06:11→22:00)
[2021-10-04] MEDS ORDERED: FUROSEMIDE 40MG/4ML VIAL (J1940) IV SCH (07:00)
[2021-10-04] MEDS ORDERED: FUROSEMIDE 40MG/4ML VIAL (J1940) IV ONE (08:20)
[2021-10-04 08:28] LABS: ABG BASE EXCESS -2.6 (-2.0-2.0); ABG HCO3 21.5 MEQ/L (22.0-26.0); ABG O2 SATURATION 98.8 % (95.0-99.0); ABG PARTIAL PRESSURE CO2 33.8 mmHg (35.0-45.0); ABG PARTIAL PRESSURE O2 139.4 mmHg (75.0-100.0); ABG STANDARD HCO3 22.3 MEQ/L (22.0-26.0); ABG TOTAL CO2 22.6 MEQ/L (22.0-29.0); ABG pH (ARTERIAL) 7.422 UNITS (7.350-7.450)
[2021-10-04 08:51] LABS: FERRITIN 577 NG/ML (8-252); IRON (FE) 37 UG/DL (50-170); PERCENT SATURATION 102.8 % (13.2-45.0); TOTAL IRON BINDING CAPACITY 36 UG/DL (250-450)
[2021-10-04 09:21] LABS: INR 1.11; PROTHROMBIN TIME 14.7 SECONDS (12.7-14.5)
[2021-10-04 09:22] LABS: PARTIAL THROMBOPLASTIN TIME 40.3 SECONDS (25.9-37.0)
[2021-10-04] MEDS ORDERED: NS 500 ML IV ONE (09:55)
[2021-10-04 09:56] LABS: BASO # 0.1 10^3/uL (0.0-0.2); BASO % 0.4 % (0.0-1.0); EOS # 0.1 10^3/uL (0.0-0.5); EOS % 0.6 % (0.0-3.0); HEMATOCRIT 21.5 % (36.0-47.0); HEMOGLOBIN 6.7 g/dl (12.0-15.5); LYMPH # 2.7 10^3/uL (1.5-5.0); LYMPH % 11.7 % (24.0-44.0); MEAN CORPUSCULAR HEMOGLOBIN 31.6 pg (27.0-33.0); MEAN CORPUSCULAR HGB CONC 31.2 g/dl (32.0-36.5); MEAN CORPUSCULAR VOLUME 101.4 fl (80.0-96.0); MONO # 0.8 10^3/uL (0.0-0.8); MONO % 3.6 % (2.0-8.0); NEUTROPHILS # 18.7 10^3/uL (1.5-8.5); NEUTROPHILS % 82.4 % (36.0-66.0); PLATELET COUNT, AUTOMATED 253 10^3/uL (150-450); RED BLOOD COUNT 2.12 10^6/uL (4.00-5.40); WHITE BLOOD COUNT 22.7 10^3/uL (4.0-10.0)
[2021-10-04] MEDS ORDERED: NS 250 ML IV ONE (10:00)
[2021-10-04 10:11] LABS: ALBUMIN 0.9 GM/DL (3.2-5.2); ALT/SGPT 32 U/L (12-78); BILIRUBIN,TOTAL 1.3 MG/DL (0.2-1.0); BLOOD UREA NITROGEN 16 MG/DL (7-18); CALCIUM LEVEL 7.7 MG/DL (8.5-10.1); CARBON DIOXIDE LEVEL 23 MEQ/L (21-32); CHLORIDE LEVEL 114 MEQ/L (98-107); CREATININE FOR GFR 0.79 MG/DL (0.55-1.30); GLOMERULAR FILTRATION RATE > 60.0 (>58); GLUCOSE, FASTING 81 MG/DL (70-100); SODIUM LEVEL 145 MEQ/L (136-145); TOTAL PROTEIN 4.4 GM/DL (6.4-8.2)
[2021-10-04] MEDS: LACTOBACILLUS ACIDOPHILUS CAP (BACID) PO SCH (11:06)
[2021-10-04] MEDS: THIAMINE 100 MG TAB PO SCH (11:06)
[2021-10-04] MEDS: NICOTINE 21MG/24HR 1 EA TRANSDERMAL TD SCH (11:06)
[2021-10-04] MEDS: FIBER-CON 625 MG TAB PO SCH ×2 (11:09→20:26)
[2021-10-04 11:12] LABS: FOLATE 3.6 NG/ML; VITAMIN B12 LEVEL > 2000 PG/ML
[2021-10-04] MEDS: FERROUS SULFATE 325MG TAB PO SCH (14:45)
[2021-10-04] MEDS: HYDROXYCHLOROQUINE 200 MG TAB NG SCH ×2 (14:45→20:27)
[2021-10-04] MEDS: FUROSEMIDE 20MG/2ML VIAL (J1940) IV SCH (14:45)
[2021-10-04] MEDS: ENOXAPARIN 40MG/0.4ML SYRINGE (J1650 PER 10MG) SC SCH (14:45)
[2021-10-04] MEDS: MUPIROCIN 2% OINT 22 GM TUBE TOP SCH ×2 (14:45→20:29)
[2021-10-04] MEDS ORDERED: PHENYLEPHRINE 10MG/ML 1ML VIAL (J2370 PER 1) IV STA (15:45)
[2021-10-04] MEDS ORDERED: MIDAZOLAM INJ 2MG/2ML VIAL (J2250 PER 1MG) IV PRN (16:00)
[2021-10-04 17:17] LABS: ABG BASE EXCESS -3.5 (-2.0-2.0); ABG HCO3 20.6 MEQ/L (22.0-26.0); ABG O2 SATURATION 98.9 % (95.0-99.0); ABG PARTIAL PRESSURE CO2 32.3 mmHg (35.0-45.0); ABG PARTIAL PRESSURE O2 150.3 mmHg (75.0-100.0); ABG STANDARD HCO3 21.6 MEQ/L (22.0-26.0); ABG TOTAL CO2 21.6 MEQ/L (22.0-29.0); ABG pH (ARTERIAL) 7.422 UNITS (7.350-7.450)
[2021-10-04] MEDS: propofoL 1,000 MG in IV 1 EA IV SCH (17:30)
[2021-10-04] MEDS: PIPERACILLIN/TAZOBACTAM SOD 3.375 GM in D5W MINI-BAG PLUS 50 ML IV SCH ×2 (17:31→23:55)
[2021-10-04 17:58] LABS: HEMATOCRIT 19.2 % (36.0-47.0); HEMOGLOBIN 6.4 g/dl (12.0-15.5)
[2021-10-04] MEDS ORDERED: SUCCINYLCHOLINE 100 MG/5 ML SYRINGE (J0330) ONE (17:58)
[2021-10-04] MEDS ORDERED: ETOMIDATE INJ 20MG/10ML VIAL ONE (17:58)
[2021-10-04] MEDS ORDERED: SODIUM CHLORIDE 0.9% INJ 10 ML SYR IV PRN (18:20)
[2021-10-04] MEDS: OLANZapine ORAL DISINTEGRATING TAB 5MG PO SCH (20:27)
[2021-10-04] MEDS: DULoxetine 30MG CAPSULE (CYMBALTA) PO SCH (20:27)
[2021-10-04] MEDS: CHLORHEXIDINE GLUCONATE 0.12 % 15ML UDC (PERIDEX ORAL RINSE) MT SCH (20:28)
[2021-10-04] MEDS: MIDAZOLAM INJ 2MG/2ML VIAL (J2250 PER 1MG) IV PRN (20:29)
[2021-10-05] VITALS (61 sets, daily range): BP systolic 80–122; BP diastolic 52–80
[2021-10-05 00:57] LABS: HEMATOCRIT 21.3 % (36.0-47.0); HEMOGLOBIN 7.2 g/dl (12.0-15.5)
[2021-10-05] MEDS: propofoL 1,000 MG in IV 1 EA IV SCH ×4 (01:13→19:37)
[2021-10-05] MEDS: MIDAZOLAM INJ 2MG/2ML VIAL (J2250 PER 1MG) IV PRN ×2 (01:13→05:37)
[2021-10-05] MEDS: PIPERACILLIN/TAZOBACTAM SOD 3.375 GM in D5W MINI-BAG PLUS 50 ML IV SCH ×4 (05:29→23:36)
[2021-10-05] MEDS: LEVOTHYROXINE 25MCG TABLET (0.025MG) PO SCH (05:29)
[2021-10-05] MEDS: SODIUM CHLORIDE 0.9% INJ 10 ML SYR IV SCH ×2 (05:29→14:00)
[2021-10-05 05:45] LABS: ABG BASE EXCESS -2.6 (-2.0-2.0); ABG O2 SATURATION 96.9 % (95.0-99.0); ABG STANDARD HCO3 22.3 MEQ/L (22.0-26.0); ABG TOTAL CO2 20.9 MEQ/L (22.0-29.0); ABG pH (ARTERIAL) 7.472 UNITS (7.350-7.450)
[2021-10-05 05:45] LABS: BASO # 0.1 10^3/uL (0.0-0.2); BASO % 0.6 % (0.0-1.0); EOS # 0.3 10^3/uL (0.0-0.5); EOS % 1.5 % (0.0-3.0); HEMATOCRIT 31.4 % (36.0-47.0); LYMPH # 2.3 10^3/uL (1.5-5.0); LYMPH % 12.8 % (24.0-44.0); MEAN CORPUSCULAR HEMOGLOBIN 32.2 pg (27.0-33.0); MEAN CORPUSCULAR HGB CONC 34.1 g/dl (32.0-36.5); MEAN CORPUSCULAR VOLUME 94.6 fl (80.0-96.0); MONO # 0.8 10^3/uL (0.0-0.8); MONO % 4.4 % (2.0-8.0); NEUTROPHILS # 13.9 10^3/uL (1.5-8.5); NEUTROPHILS % 79.4 % (36.0-66.0); PLATELET COUNT, AUTOMATED 201 10^3/uL (150-450); RED BLOOD COUNT 3.32 10^6/uL (4.00-5.40); WHITE BLOOD COUNT 17.5 10^3/uL (4.0-10.0)
[2021-10-05 05:49] LABS: HEMOGLOBIN 10.7 g/dl (12.0-15.5)
[2021-10-05 06:23] LABS: ALBUMIN 0.7 GM/DL (3.2-5.2); BILIRUBIN,TOTAL 1.2 MG/DL (0.2-1.0); C REACTIVE PROTEIN QUANTITATIV 15.4 MG/DL (0.00-0.30); CALCIUM LEVEL 7.1 MG/DL (8.5-10.1); CREATININE FOR GFR 1.18 MG/DL (0.55-1.30); GLOMERULAR FILTRATION RATE 53.2 (>58); POTASSIUM SERUM 3.8 MEQ/L (3.5-5.1); TOTAL PROTEIN 3.7 GM/DL (6.4-8.2)
[2021-10-05] MEDS ORDERED: NS 500 ML IV ONE ×3 (07:15→20:05)
[2021-10-05] MEDS: NICOTINE 21MG/24HR 1 EA TRANSDERMAL TD SCH (09:00)
[2021-10-05] MEDS: FERROUS SULFATE 325MG TAB PO SCH (09:00)
[2021-10-05] MEDS ORDERED: PANTOPRAZOLE 40MG VIAL (C9113 PER 1) IV SCH (09:00)
[2021-10-05] MEDS: FUROSEMIDE 20MG/2ML VIAL (J1940) IV SCH ×2 (09:00→12:40)
[2021-10-05] MEDS: CHLORHEXIDINE GLUCONATE 0.12 % 15ML UDC (PERIDEX ORAL RINSE) MT SCH ×2 (09:57→21:51)
[2021-10-05] MEDS: MUPIROCIN 2% OINT 22 GM TUBE TOP SCH ×2 (10:10→21:52)
[2021-10-05] MEDS: VANICREAM MOISTURIZING SKIN CREAM 113GM TUBE TOP SCH ×2 (10:10→21:52)
[2021-10-05] MEDS: ENOXAPARIN 40MG/0.4ML SYRINGE (J1650 PER 10MG) SC SCH (12:38)
[2021-10-05] MEDS: THIAMINE 100 MG TAB PO SCH (12:39)
[2021-10-05] MEDS: LACTOBACILLUS ACIDOPHILUS CAP (BACID) PO SCH (12:39)
[2021-10-05] MEDS: FIBER-CON 625 MG TAB PO SCH ×2 (12:39→21:51)
[2021-10-05] MEDS: HYDROXYCHLOROQUINE 200 MG TAB NG SCH ×2 (12:39→21:51)
[2021-10-05] MEDS: OLANZapine ORAL DISINTEGRATING TAB 5MG PO SCH ×2 (12:59→21:51)
[2021-10-05 16:16] LABS: HEMATOCRIT 28.7 % (36.0-47.0); HEMOGLOBIN 9.7 g/dl (12.0-15.5)
[2021-10-05] MEDS ORDERED: NOREPINEPHRINE 4 MG/4 ML AMP As Ordered ONE (19:53)
[2021-10-05] MEDS: NOREPINEPHRINE BITARTRATE 8 MG in D5W 492 ML IV SCH (20:23)
[2021-10-05 20:28] LABS: ABG BASE EXCESS -6.3 (-2.0-2.0); ABG HCO3 17.4 MEQ/L (22.0-26.0); ABG O2 SATURATION 98.5 % (95.0-99.0); ABG PARTIAL PRESSURE CO2 27.1 mmHg (35.0-45.0); ABG PARTIAL PRESSURE O2 147.7 mmHg (75.0-100.0); ABG STANDARD HCO3 19.2 MEQ/L (22.0-26.0); ABG TOTAL CO2 18.3 MEQ/L (22.0-29.0); ABG pH (ARTERIAL) 7.426 UNITS (7.350-7.450)
[2021-10-05 20:39] LABS: BASO # 0.1 10^3/uL (0.0-0.2); BASO % 0.9 % (0.0-1.0); EOS # 0.7 10^3/uL (0.0-0.5); EOS % 4.9 % (0.0-3.0); HEMATOCRIT 25.9 % (36.0-47.0); HEMOGLOBIN 8.7 g/dl (12.0-15.5); LYMPH # 2.2 10^3/uL (1.5-5.0); LYMPH % 16.8 % (24.0-44.0); MEAN CORPUSCULAR HEMOGLOBIN 32.2 pg (27.0-33.0); MEAN CORPUSCULAR HGB CONC 33.6 g/dl (32.0-36.5); MEAN CORPUSCULAR VOLUME 95.9 fl (80.0-96.0); MONO # 0.5 10^3/uL (0.0-0.8); MONO % 3.6 % (2.0-8.0); NEUTROPHILS # 9.5 10^3/uL (1.5-8.5); NEUTROPHILS % 72.1 % (36.0-66.0); PLATELET COUNT, AUTOMATED 205 10^3/uL (150-450); WHITE BLOOD COUNT 13.2 10^3/uL (4.0-10.0)
[2021-10-05 20:51] LABS: INR 1.26; PROTHROMBIN TIME 16.3 SECONDS (12.7-14.5)
[2021-10-05] MEDS: DULoxetine 30MG CAPSULE (CYMBALTA) PO SCH (21:51)
[2021-10-05] MEDS: PANTOPRAZOLE 40MG VIAL (C9113 PER 1) IV SCH (23:35)
[2021-10-05] MEDS: SUCRALFATE SUSP 1GM/10ML UD NG SCH (23:36)
[2021-10-06] VITALS (31 sets, daily range): BP systolic 83–127; BP diastolic 57–89
[2021-10-06 01:19] LABS: HEMATOCRIT 37.2 % (36.0-47.0); MEAN CORPUSCULAR HEMOGLOBIN 31.2 pg (27.0-33.0); MEAN CORPUSCULAR HGB CONC 34.1 g/dl (32.0-36.5); MEAN CORPUSCULAR VOLUME 91.4 fl (80.0-96.0); PLATELET COUNT, AUTOMATED 175 10^3/uL (150-450); RED BLOOD COUNT 4.07 10^6/uL (4.00-5.40); WHITE BLOOD COUNT 13.9 10^3/uL (4.0-10.0)
[2021-10-06 01:21] LABS: HEMOGLOBIN 12.7 g/dl (12.0-15.5)
[2021-10-06] MEDS: propofoL 1,000 MG in IV 1 EA IV SCH ×6 (04:51→22:17)
[2021-10-06 06:02] LABS: HEMATOCRIT 36.7 % (36.0-47.0); HEMOGLOBIN 12.4 g/dl (12.0-15.5); MEAN CORPUSCULAR HEMOGLOBIN 31.2 pg (27.0-33.0); MEAN CORPUSCULAR HGB CONC 33.8 g/dl (32.0-36.5); MEAN CORPUSCULAR VOLUME 92.2 fl (80.0-96.0); PLATELET COUNT, AUTOMATED 172 10^3/uL (150-450); RED BLOOD COUNT 3.98 10^6/uL (4.00-5.40); WHITE BLOOD COUNT 13.8 10^3/uL (4.0-10.0)
[2021-10-06] MEDS: PIPERACILLIN/TAZOBACTAM SOD 3.375 GM in D5W MINI-BAG PLUS 50 ML IV SCH ×4 (06:06→23:56)
[2021-10-06] MEDS: LEVOTHYROXINE 25MCG TABLET (0.025MG) PO SCH (06:06)
[2021-10-06] MEDS: SUCRALFATE SUSP 1GM/10ML UD NG SCH ×4 (06:06→23:54)
[2021-10-06 06:48] LABS: ANISOCYTOSIS 1+; ATYPICAL LYMPH 2 % (0-5); BASOPHILS 2 % (0-1); EOSINOPHILS 4 % (0-3); LYMPHOCYTES 7 % (16-44); MONOCYTES 6 % (0-5); NEUTROPHILS 57 % (28-66); PLATELET CLUMPS SMALL AMT; PLATELET ESTIMATE NORMAL (NORMAL)
[2021-10-06 06:51] LABS: ALBUMIN 0.5 GM/DL (3.2-5.2); ALT/SGPT 26 U/L (12-78); BLOOD UREA NITROGEN 20 MG/DL (7-18); CALCIUM LEVEL 6.8 MG/DL (8.5-10.1); CARBON DIOXIDE LEVEL 21 MEQ/L (21-32); CHLORIDE LEVEL 117 MEQ/L (98-107); CREATININE FOR GFR 0.93 MG/DL (0.55-1.30); GLOMERULAR FILTRATION RATE > 60.0 (>58); GLUCOSE, FASTING 85 MG/DL (70-100); POTASSIUM SERUM 2.7 MEQ/L (3.5-5.1); SODIUM LEVEL 147 MEQ/L (136-145); TOTAL PROTEIN 3.3 GM/DL (6.4-8.2)
[2021-10-06] MEDS ORDERED: POTASSIUM CHLORIDE 10% LIQ 20 MEQ/15 ML UDC PO ONE (07:00)
[2021-10-06] MEDS: KCL 10MEQ/100ML SWI (KRUN) 10 MEQ in IV 1 EA IV SCH ×2 (07:54→09:02)
[2021-10-06] MEDS: FUROSEMIDE 20MG/2ML VIAL (J1940) IV SCH (07:57)
[2021-10-06 08:14] LABS: ABG BASE EXCESS -8.2 (-2.0-2.0); ABG HCO3 15.8 MEQ/L (22.0-26.0); ABG O2 SATURATION 97.9 % (95.0-99.0); ABG PARTIAL PRESSURE CO2 28.3 mmHg (35.0-45.0); ABG PARTIAL PRESSURE O2 116.8 mmHg (75.0-100.0); ABG STANDARD HCO3 17.9 MEQ/L (22.0-26.0); ABG TOTAL CO2 16.6 MEQ/L (22.0-29.0); ABG pH (ARTERIAL) 7.364 UNITS (7.350-7.450)
[2021-10-06] MEDS: CHLORHEXIDINE GLUCONATE 0.12 % 15ML UDC (PERIDEX ORAL RINSE) MT SCH ×2 (08:38→21:39)
[2021-10-06] MEDS: OLANZapine ORAL DISINTEGRATING TAB 5MG PO SCH ×2 (08:39→21:39)
[2021-10-06] MEDS: LACTOBACILLUS ACIDOPHILUS CAP (BACID) PO SCH (08:39)
[2021-10-06] MEDS: HYDROXYCHLOROQUINE 200 MG TAB NG SCH ×2 (08:39→21:40)
[2021-10-06] MEDS: PANTOPRAZOLE 40MG VIAL (C9113 PER 1) IV SCH ×2 (08:39→21:39)
[2021-10-06] MEDS: THIAMINE 100 MG TAB PO SCH (08:39)
[2021-10-06] MEDS: FIBER-CON 625 MG TAB PO SCH ×2 (08:39→21:40)
[2021-10-06] MEDS: VANICREAM MOISTURIZING SKIN CREAM 113GM TUBE TOP SCH ×2 (08:40→21:40)
[2021-10-06] MEDS: MUPIROCIN 2% OINT 22 GM TUBE TOP SCH ×2 (08:40→21:40)
[2021-10-06] MEDS: NICOTINE 21MG/24HR 1 EA TRANSDERMAL TD SCH (08:41)
[2021-10-06] MEDS: NOREPINEPHRINE BITARTRATE 8 MG in D5W 492 ML IV SCH (09:30)
[2021-10-06] MEDS: MICAFUNGIN SODIUM 100 MG in D5W MINI-BAG PLUS 100 ML IV SCH (11:27)
[2021-10-06 11:33] LABS: BLOOD UREA NITROGEN 19 MG/DL (7-18); CALCIUM LEVEL 6.8 MG/DL (8.5-10.1); CARBON DIOXIDE LEVEL 21 MEQ/L (21-32); CHLORIDE LEVEL 117 MEQ/L (98-107); CREATININE FOR GFR 0.94 MG/DL (0.55-1.30); GLOMERULAR FILTRATION RATE > 60.0 (>58); GLUCOSE, FASTING 85 MG/DL (70-100); POTASSIUM SERUM 3.1 MEQ/L (3.5-5.1); SODIUM LEVEL 146 MEQ/L (136-145)
[2021-10-06] MEDS ORDERED: POTASSIUM CHLORIDE 10MEQ SR TABLET PO ONE (12:00)
[2021-10-06] MEDS ORDERED: KCL 40MEQ IN D5/0.45NS 1000ML 1,000 ML IV SCH (12:00)
[2021-10-06] MEDS ORDERED: POTASSIUM CHLORIDE 10% LIQ 20 MEQ/15 ML UDC NG ONE ×2 (13:00→15:00)
[2021-10-06 14:13] LABS: BASO # 0.2 10^3/uL (0.0-0.2); BASO % 1.6 % (0.0-1.0); EOS % 6.3 % (0.0-3.0); HEMATOCRIT 36.9 % (36.0-47.0); HEMOGLOBIN 12.4 g/dl (12.0-15.5); LYMPH # 1.6 10^3/uL (1.5-5.0); LYMPH % 10.6 % (24.0-44.0); MEAN CORPUSCULAR HEMOGLOBIN 30.9 pg (27.0-33.0); MEAN CORPUSCULAR HGB CONC 33.6 g/dl (32.0-36.5); MONO # 0.5 10^3/uL (0.0-0.8); NEUTROPHILS # 11.8 10^3/uL (1.5-8.5); NEUTROPHILS % 76.4 % (36.0-66.0); PLATELET COUNT, AUTOMATED 157 10^3/uL (150-450); RED BLOOD COUNT 4.01 10^6/uL (4.00-5.40); WHITE BLOOD COUNT 15.5 10^3/uL (4.0-10.0)
[2021-10-06 14:39] LABS: BLOOD UREA NITROGEN 17 MG/DL (7-18); CALCIUM LEVEL 6.8 MG/DL (8.5-10.1); CARBON DIOXIDE LEVEL 19 MEQ/L (21-32); CHLORIDE LEVEL 119 MEQ/L (98-107); GLOMERULAR FILTRATION RATE > 60.0 (>58); GLUCOSE, FASTING 133 MG/DL (70-100); POTASSIUM SERUM 3.2 MEQ/L (3.5-5.1); SODIUM LEVEL 147 MEQ/L (136-145)
[2021-10-06] MEDS: HumaLOG INSULIN (NovoLOG) PER UNIT SC SCH ×2 (17:46→23:55)
[2021-10-06] MEDS ORDERED: [UNRECOGNIZED DRUG - OTHER] IV SCH ×8 (18:00)
[2021-10-06] MEDS ORDERED: SODIUM CHLORIDE IV SCH ×8 (18:00)
[2021-10-06] MEDS ORDERED: FAT EMULSION IV 20% 500 ML IV SCH (18:00)
[2021-10-06] MEDS ORDERED: SODIUM ACETATE IV SCH ×8 (18:00)
[2021-10-06] MEDS: MIDAZOLAM INJ 2MG/2ML VIAL (J2250 PER 1MG) IV PRN (20:28)
[2021-10-06 20:43] LABS: BLOOD UREA NITROGEN 16 MG/DL (7-18); CALCIUM LEVEL 6.8 MG/DL (8.5-10.1); CARBON DIOXIDE LEVEL 18 MEQ/L (21-32); CHLORIDE LEVEL 119 MEQ/L (98-107); CREATININE FOR GFR 0.84 MG/DL (0.55-1.30); GLOMERULAR FILTRATION RATE > 60.0 (>58); GLUCOSE, FASTING 134 MG/DL (70-100); POTASSIUM SERUM 3.5 MEQ/L (3.5-5.1); SODIUM LEVEL 147 MEQ/L (136-145)
[2021-10-06] MEDS: MORPHINE 2 MG/ML 1ML VIAL (J2270) IV PRN (23:56)
[2021-10-07] VITALS (21 sets, daily range): BP systolic 85–151; BP diastolic 56–84
[2021-10-07] MEDS: propofoL 1,000 MG in IV 1 EA IV SCH ×8 (00:59→23:55)
[2021-10-07] MEDS: MIDAZOLAM INJ 2MG/2ML VIAL (J2250 PER 1MG) IV PRN ×2 (00:59→02:22)
[2021-10-07 05:20] LABS: HEMATOCRIT 35.7 % (36.0-47.0); HEMOGLOBIN 11.8 g/dl (12.0-15.5); MEAN CORPUSCULAR HEMOGLOBIN 31.2 pg (27.0-33.0); MEAN CORPUSCULAR HGB CONC 33.1 g/dl (32.0-36.5); MEAN CORPUSCULAR VOLUME 94.4 fl (80.0-96.0); PLATELET COUNT, AUTOMATED 146 10^3/uL (150-450); RED BLOOD COUNT 3.78 10^6/uL (4.00-5.40); WHITE BLOOD COUNT 18.3 10^3/uL (4.0-10.0)
[2021-10-07 05:50] LABS: ALBUMIN 0.5 GM/DL (3.2-5.2); ALT/SGPT 29 U/L (12-78); BILIRUBIN,TOTAL 0.9 MG/DL (0.2-1.0); BLOOD UREA NITROGEN 16 MG/DL (7-18); CALCIUM LEVEL 6.8 MG/DL (8.5-10.1); CARBON DIOXIDE LEVEL 18 MEQ/L (21-32); CHLORIDE LEVEL 120 MEQ/L (98-107); CREATININE FOR GFR 0.75 MG/DL (0.55-1.30); GLOMERULAR FILTRATION RATE > 60.0 (>58); GLUCOSE, FASTING 112 MG/DL (70-100); POTASSIUM SERUM 2.9 MEQ/L (3.5-5.1); SODIUM LEVEL 147 MEQ/L (136-145); TOTAL PROTEIN 3.4 GM/DL (6.4-8.2)
[2021-10-07] MEDS ORDERED: POTASSIUM CHLORIDE 10% LIQ 20 MEQ/15 ML UDC PO ONE ×2 (06:00→21:50)
[2021-10-07 06:11] LABS: ANISOCYTOSIS 2+; BASOPHILS 3 % (0-1); EOSINOPHILS 4 % (0-3); LYMPHOCYTES 9 % (16-44); MONOCYTES 2 % (0-5); NEUTROPHILS 73 % (28-66); PLATELET ESTIMATE NORMAL (NORMAL)
[2021-10-07 06:12] LABS: POLYCHROMASIA 1+
[2021-10-07 06:13] LABS: ABG BASE EXCESS -10.3 (-2.0-2.0); ABG HCO3 15.9 MEQ/L (22.0-26.0); ABG O2 SATURATION 92.9 % (95.0-99.0); ABG PARTIAL PRESSURE CO2 36.5 mmHg (35.0-45.0); ABG PARTIAL PRESSURE O2 68.2 mmHg (75.0-100.0); ABG STANDARD HCO3 16.2 MEQ/L (22.0-26.0); ABG TOTAL CO2 17.1 MEQ/L (22.0-29.0); ABG pH (ARTERIAL) 7.258 UNITS (7.350-7.450)
[2021-10-07] MEDS: LEVOTHYROXINE 25MCG TABLET (0.025MG) PO SCH (06:34)
[2021-10-07] MEDS: SUCRALFATE SUSP 1GM/10ML UD NG SCH ×4 (06:34→23:35)
[2021-10-07] MEDS: PIPERACILLIN/TAZOBACTAM SOD 3.375 GM in D5W MINI-BAG PLUS 50 ML IV SCH (06:35)
[2021-10-07] MEDS: HumaLOG INSULIN (NovoLOG) PER UNIT SC SCH ×4 (06:38→23:50)
[2021-10-07] MEDS ORDERED: D5W 1,000 ML IV SCH (08:20)
[2021-10-07] MEDS: FIBER-CON 625 MG TAB PO SCH ×2 (08:33→20:02)
[2021-10-07] MEDS: OLANZapine ORAL DISINTEGRATING TAB 5MG PO SCH ×2 (08:33→20:04)
[2021-10-07] MEDS: PANTOPRAZOLE 40MG VIAL (C9113 PER 1) IV SCH ×2 (08:33→20:03)
[2021-10-07] MEDS: THIAMINE 100 MG TAB PO SCH (08:34)
[2021-10-07] MEDS: HYDROXYCHLOROQUINE 200 MG TAB NG SCH ×2 (08:34→20:02)
[2021-10-07] MEDS: LACTOBACILLUS ACIDOPHILUS CAP (BACID) PO SCH (08:34)
[2021-10-07] MEDS: CHLORHEXIDINE GLUCONATE 0.12 % 15ML UDC (PERIDEX ORAL RINSE) MT SCH ×2 (08:34→20:02)
[2021-10-07] MEDS: VANICREAM MOISTURIZING SKIN CREAM 113GM TUBE TOP SCH ×2 (08:35→20:03)
[2021-10-07] MEDS: MUPIROCIN 2% OINT 22 GM TUBE TOP SCH ×2 (08:35→20:03)
[2021-10-07] MEDS: FUROSEMIDE 20MG/2ML VIAL (J1940) IV SCH (08:36)
[2021-10-07] MEDS: NICOTINE 21MG/24HR 1 EA TRANSDERMAL TD SCH ×2 (08:36→10:00)
[2021-10-07] MEDS: POTASSIUM CHLORIDE 10% LIQ 20 MEQ/15 ML UDC PO SCH ×2 (09:06→20:02)
[2021-10-07 09:38] LABS: ABG HCO3 15.5 MEQ/L (22.0-26.0); ABG O2 SATURATION 94.8 % (95.0-99.0); ABG PARTIAL PRESSURE O2 85.3 mmHg (75.0-100.0); ABG TOTAL CO2 16.7 MEQ/L (22.0-29.0); ABG pH (ARTERIAL) 7.195 UNITS (7.350-7.450)
[2021-10-07] MEDS: KCL 20MEQ IN D5W 1000ML 1,000 ML IV SCH ×3 (10:12→22:38)
[2021-10-07 10:58] LABS: BLOOD UREA NITROGEN 16 MG/DL (7-18); CALCIUM LEVEL 7.1 MG/DL (8.5-10.1); CARBON DIOXIDE LEVEL 20 MEQ/L (21-32); CHLORIDE LEVEL 121 MEQ/L (98-107); CREATININE FOR GFR 0.81 MG/DL (0.55-1.30); GLOMERULAR FILTRATION RATE > 60.0 (>58); GLUCOSE, FASTING 106 MG/DL (70-100); SODIUM LEVEL 147 MEQ/L (136-145)
[2021-10-07 11:29] LABS: PHOSPHORUS LEVEL 4.5 MG/DL (2.5-4.9)
[2021-10-07] MEDS: MICAFUNGIN SODIUM 100 MG in D5W MINI-BAG PLUS 100 ML IV SCH (12:04)
[2021-10-07 13:12] LABS: ABG BASE EXCESS -13.2 (-2.0-2.0); ABG HCO3 13.2 MEQ/L (22.0-26.0); ABG O2 SATURATION 98.4 % (95.0-99.0); ABG PARTIAL PRESSURE CO2 32.4 mmHg (35.0-45.0); ABG STANDARD HCO3 14.3 MEQ/L (22.0-26.0); ABG TOTAL CO2 14.2 MEQ/L (22.0-29.0)
[2021-10-07 13:20] LABS: ABG pH (ARTERIAL) 7.229 UNITS (7.350-7.450)
[2021-10-07] MEDS ORDERED: HOME MED LIST COMPLETE! XX SCH (13:30)
[2021-10-07] MEDS: cefTRIAXone SOD 2 GM in D5W MINI-BAG PLUS 50 ML IV SCH (14:07)
[2021-10-07] MEDS: D5W 1,000 ML IV SCH ×3 (14:07→23:28)
[2021-10-07] MEDS ORDERED: diphenhydrAMINE 50MG/ML VIAL (J1200) IM PRN (17:30)
[2021-10-07] MEDS ORDERED: SODIUM CHLORIDE IV SCH ×9 (18:00)
[2021-10-07] MEDS ORDERED: SODIUM ACETATE IV SCH ×9 (18:00)
[2021-10-07] MEDS ORDERED: [UNRECOGNIZED DRUG - OTHER] IV SCH ×9 (18:00)
[2021-10-07] MEDS ORDERED: FAT EMULSION IV 20% 500 ML IV SCH (18:00)
[2021-10-07 18:08] LABS: ABG BASE EXCESS -10.8 (-2.0-2.0); ABG HCO3 14.3 MEQ/L (22.0-26.0); ABG O2 SATURATION 98.1 % (95.0-99.0); ABG PARTIAL PRESSURE CO2 29.5 mmHg (35.0-45.0); ABG PARTIAL PRESSURE O2 128.9 mmHg (75.0-100.0); ABG STANDARD HCO3 15.9 MEQ/L (22.0-26.0); ABG TOTAL CO2 15.2 MEQ/L (22.0-29.0); ABG pH (ARTERIAL) 7.302 UNITS (7.350-7.450)
[2021-10-07 21:13] LABS: BLOOD UREA NITROGEN 13 MG/DL (7-18); CARBON DIOXIDE LEVEL 18 MEQ/L (21-32); CHLORIDE LEVEL 117 MEQ/L (98-107); CREATININE FOR GFR 0.75 MG/DL (0.55-1.30); GLOMERULAR FILTRATION RATE > 60.0 (>58); GLUCOSE, FASTING 134 MG/DL (70-100); POTASSIUM SERUM 3.5 MEQ/L (3.5-5.1); SODIUM LEVEL 143 MEQ/L (136-145)
[2021-10-08] VITALS (22 sets, daily range): BP systolic 82–127; BP diastolic 56–85
[2021-10-08 01:15] LABS: CLOSTRIDIUM DIFFICILE PCR NEGATIVE (NEGATIVE)
[2021-10-08] MEDS: D5W 1,000 ML IV SCH ×4 (01:15→17:38)
[2021-10-08] MEDS: propofoL 1,000 MG in IV 1 EA IV SCH ×6 (03:19→19:24)
[2021-10-08 04:52] LABS: HEMATOCRIT 34.9 % (36.0-47.0); HEMOGLOBIN 11.5 g/dl (12.0-15.5); MEAN CORPUSCULAR HEMOGLOBIN 31.3 pg (27.0-33.0); MEAN CORPUSCULAR VOLUME 95.1 fl (80.0-96.0); PLATELET COUNT, AUTOMATED 109 10^3/uL (150-450); RED BLOOD COUNT 3.67 10^6/uL (4.00-5.40); WHITE BLOOD COUNT 21.8 10^3/uL (4.0-10.0)
[2021-10-08] MEDS: KCL 20MEQ IN D5W 1000ML 1,000 ML IV SCH (05:18)
[2021-10-08] MEDS: LEVOTHYROXINE 25MCG TABLET (0.025MG) PO SCH (05:21)
[2021-10-08] MEDS: SUCRALFATE SUSP 1GM/10ML UD NG SCH ×4 (05:21→23:25)
[2021-10-08 05:24] LABS: ATYPICAL LYMPH 3 % (0-5); BASOPHILS 2 % (0-1); EOSINOPHILS 5 % (0-3); LYMPHOCYTES 6 % (16-44); MONOCYTES 2 % (0-5); NEUTROPHILS 79 % (28-66); PLATELET ESTIMATE DECREASED (NORMAL)
[2021-10-08 05:25] LABS: ANISOCYTOSIS 2+; TOXIC VACUOLATION 1+
[2021-10-08] MEDS: HumaLOG INSULIN (NovoLOG) PER UNIT SC SCH ×4 (05:28→23:25)
[2021-10-08 05:38] LABS: ALBUMIN 0.4 GM/DL (3.2-5.2); ALT/SGPT 28 U/L (12-78); BILIRUBIN,TOTAL 0.8 MG/DL (0.2-1.0); BLOOD UREA NITROGEN 12 MG/DL (7-18); CALCIUM LEVEL 6.9 MG/DL (8.5-10.1); CARBON DIOXIDE LEVEL 17 MEQ/L (21-32); CHLORIDE LEVEL 115 MEQ/L (98-107); CHOLESTEROL LEVEL 148 MG/DL (< 200); CPK CREATINE PHOSPHOKINASE 38 U/L (26-192); GLOMERULAR FILTRATION RATE > 60.0 (>58); GLUCOSE, FASTING 126 MG/DL (70-100); LDH LACTATE DEHYDROGENASE 409 U/L (84-246); PHOSPHORUS LEVEL 3.2 MG/DL (2.5-4.9); POTASSIUM SERUM 3.4 MEQ/L (3.5-5.1); SODIUM LEVEL 141 MEQ/L (136-145); TOTAL PROTEIN 3.5 GM/DL (6.4-8.2); TRIGLYCERIDES LEVEL 560 MG/DL (<150)
[2021-10-08 05:51] LABS: ABG HCO3 12.2 MEQ/L (22.0-26.0); ABG O2 SATURATION 98.1 % (95.0-99.0); ABG PARTIAL PRESSURE CO2 29.8 mmHg (35.0-45.0); ABG PARTIAL PRESSURE O2 120.2 mmHg (75.0-100.0); ABG STANDARD HCO3 13.7 MEQ/L (22.0-26.0); ABG TOTAL CO2 13.1 MEQ/L (22.0-29.0)
[2021-10-08] MEDS: POTASSIUM CHLORIDE 10% LIQ 20 MEQ/15 ML UDC PO SCH ×4 (07:47→20:08)
[2021-10-08] MEDS: CHLORHEXIDINE GLUCONATE 0.12 % 15ML UDC (PERIDEX ORAL RINSE) MT SCH ×2 (07:47→20:08)
[2021-10-08] MEDS: HYDROXYCHLOROQUINE 200 MG TAB NG SCH ×2 (07:48→20:06)
[2021-10-08] MEDS: THIAMINE 100 MG TAB PO SCH (07:48)
[2021-10-08] MEDS: LACTOBACILLUS ACIDOPHILUS CAP (BACID) PO SCH (07:48)
[2021-10-08] MEDS: PANTOPRAZOLE 40MG VIAL (C9113 PER 1) IV SCH ×2 (07:48→20:06)
[2021-10-08] MEDS: OLANZapine ORAL DISINTEGRATING TAB 5MG PO SCH ×2 (07:48→20:06)
[2021-10-08] MEDS: FIBER-CON 625 MG TAB PO SCH ×2 (07:49→20:07)
[2021-10-08] MEDS: MUPIROCIN 2% OINT 22 GM TUBE TOP SCH ×2 (07:49→20:06)
[2021-10-08] MEDS: VANICREAM MOISTURIZING SKIN CREAM 113GM TUBE TOP SCH ×2 (07:49→20:07)
[2021-10-08] MEDS ORDERED: SODIUM BICARBONATE 8.4% INJ 50 ML SYRINGE IV STA (09:12)
[2021-10-08] MEDS: MICAFUNGIN SODIUM 100 MG in D5W MINI-BAG PLUS 100 ML IV SCH (10:50)
[2021-10-08 11:15] LABS: ABG BASE EXCESS -12.3 (-2.0-2.0); ABG HCO3 12.7 MEQ/L (22.0-26.0); ABG O2 SATURATION 98.7 % (95.0-99.0); ABG PARTIAL PRESSURE CO2 26.6 mmHg (35.0-45.0); ABG PARTIAL PRESSURE O2 141.8 mmHg (75.0-100.0); ABG STANDARD HCO3 14.9 MEQ/L (22.0-26.0); ABG TOTAL CO2 13.5 MEQ/L (22.0-29.0); ABG pH (ARTERIAL) 7.296 UNITS (7.350-7.450)
[2021-10-08] MEDS: cefTRIAXone SOD 2 GM in D5W MINI-BAG PLUS 50 ML IV SCH (12:40)
[2021-10-08] MEDS: SODIUM BICARBONATE 100 MEQ in D5W 1,000 ML IV SCH (12:42)
[2021-10-08 14:25] LABS: BLOOD UREA NITROGEN 11 MG/DL (7-18); CALCIUM LEVEL 7.2 MG/DL (8.5-10.1); CARBON DIOXIDE LEVEL 17 MEQ/L (21-32); CHLORIDE LEVEL 113 MEQ/L (98-107); CREATININE FOR GFR 0.56 MG/DL (0.55-1.30); GLOMERULAR FILTRATION RATE > 60.0 (>58); GLUCOSE, FASTING 133 MG/DL (70-100); POTASSIUM SERUM 3.4 MEQ/L (3.5-5.1); SODIUM LEVEL 140 MEQ/L (136-145)
[2021-10-08] MEDS ORDERED: POTASSIUM CHLORIDE 10% LIQ 20 MEQ/15 ML UDC PO ONE (15:00)
[2021-10-08] MEDS: diphenhydrAMINE 50MG/ML VIAL (J1200) IM SCH ×2 (17:29→23:25)
[2021-10-08] MEDS ORDERED: FAT EMULSION IV 20% 500 ML IV SCH (18:00)
[2021-10-08] MEDS ORDERED: SODIUM ACETATE IV SCH ×8 (18:00)
[2021-10-08] MEDS ORDERED: SODIUM CHLORIDE IV SCH ×8 (18:00)
[2021-10-08] MEDS ORDERED: [UNRECOGNIZED DRUG - OTHER] IV SCH ×8 (18:00)
[2021-10-08 18:21] LABS: ABG BASE EXCESS -10.7 (-2.0-2.0); ABG O2 SATURATION 98.5 % (95.0-99.0); ABG PARTIAL PRESSURE CO2 32.8 mmHg (35.0-45.0); ABG PARTIAL PRESSURE O2 121.9 mmHg (75.0-100.0); ABG pH (ARTERIAL) 7.277 UNITS (7.350-7.450)
[2021-10-09] VITALS (24 sets, daily range): BP systolic 83–143; BP diastolic 60–80
[2021-10-09] MEDS: D5W 1,000 ML IV SCH ×4 (00:28→20:38)
[2021-10-09] MEDS: SODIUM BICARBONATE 100 MEQ in D5W 1,000 ML IV SCH ×3 (02:00→20:37)
[2021-10-09] MEDS: propofoL 1,000 MG in IV 1 EA IV SCH ×6 (02:01→23:11)
[2021-10-09 03:52] LABS: HEMATOCRIT 32.6 % (36.0-47.0); HEMOGLOBIN 11.4 g/dl (12.0-15.5); MEAN CORPUSCULAR HEMOGLOBIN 33.2 pg (27.0-33.0); PLATELET COUNT, AUTOMATED 104 10^3/uL (150-450); RED BLOOD COUNT 3.43 10^6/uL (4.00-5.40); WHITE BLOOD COUNT 23.7 10^3/uL (4.0-10.0)
[2021-10-09 04:24] LABS: ATYPICAL LYMPH 1 % (0-5); EOSINOPHILS 1 % (0-3); LYMPHOCYTES 12 % (16-44); METAMYELOCYTES 5 % (0-0); MONOCYTES 1 % (0-5); MYELOCYTES 1 % (0-0); NEUTROPHILS 73 % (28-66)
[2021-10-09 04:25] LABS: ANISOCYTOSIS 1+; PLATELET ESTIMATE DECREASED (NORMAL); TOXIC VACUOLATION 1+
[2021-10-09 05:31] LABS: ALBUMIN 0.4 GM/DL (3.2-5.2); ALT/SGPT 23 U/L (12-78); BILIRUBIN,TOTAL 0.8 MG/DL (0.2-1.0); BLOOD UREA NITROGEN 9 MG/DL (7-18); CALCIUM LEVEL 6.9 MG/DL (8.5-10.1); CARBON DIOXIDE LEVEL 16 MEQ/L (21-32); CHLORIDE LEVEL 109 MEQ/L (98-107); CHOLESTEROL LEVEL 167 MG/DL (< 200); CPK CREATINE PHOSPHOKINASE 55 U/L (26-192); GLOMERULAR FILTRATION RATE > 60.0 (>58); GLUCOSE, FASTING 132 MG/DL (70-100); LDH LACTATE DEHYDROGENASE 432 U/L (84-246); POTASSIUM SERUM 3.8 MEQ/L (3.5-5.1); SODIUM LEVEL 137 MEQ/L (136-145); TOTAL PROTEIN 3.5 GM/DL (6.4-8.2); TRIGLYCERIDES LEVEL 772 MG/DL (<150)
[2021-10-09] MEDS: SUCRALFATE SUSP 1GM/10ML UD NG SCH ×4 (05:41→23:11)
[2021-10-09] MEDS: LEVOTHYROXINE 25MCG TABLET (0.025MG) PO SCH (05:41)
[2021-10-09] MEDS: diphenhydrAMINE 50MG/ML VIAL (J1200) IM SCH ×2 (05:42→12:09)
[2021-10-09] MEDS: HumaLOG INSULIN (NovoLOG) PER UNIT SC SCH ×4 (05:48→23:18)
[2021-10-09 06:10] LABS: ABG BASE EXCESS -12.5 (-2.0-2.0); ABG HCO3 13.9 MEQ/L (22.0-26.0); ABG O2 SATURATION 98.7 % (95.0-99.0); ABG PARTIAL PRESSURE CO2 33.4 mmHg (35.0-45.0); ABG PARTIAL PRESSURE O2 128.6 mmHg (75.0-100.0); ABG STANDARD HCO3 14.7 MEQ/L (22.0-26.0); ABG TOTAL CO2 14.9 MEQ/L (22.0-29.0)
[2021-10-09 06:27] LABS: ABG pH (ARTERIAL) 7.236 UNITS (7.350-7.450)
[2021-10-09] MEDS ORDERED: SODIUM BICARBONATE 8.4% INJ 50 ML SYRINGE IV STA (08:17)
[2021-10-09] MEDS: CHLORHEXIDINE GLUCONATE 0.12 % 15ML UDC (PERIDEX ORAL RINSE) MT SCH ×2 (08:57→20:01)
[2021-10-09] MEDS: POTASSIUM CHLORIDE 10% LIQ 20 MEQ/15 ML UDC PO SCH ×3 (08:58→20:01)
[2021-10-09] MEDS: FIBER-CON 625 MG TAB PO SCH ×2 (08:59→20:01)
[2021-10-09] MEDS: HYDROXYCHLOROQUINE 200 MG TAB NG SCH ×2 (08:59→20:39)
[2021-10-09] MEDS: OLANZapine ORAL DISINTEGRATING TAB 5MG PO SCH ×2 (08:59→20:01)
[2021-10-09] MEDS: LACTOBACILLUS ACIDOPHILUS CAP (BACID) PO SCH (08:59)
[2021-10-09] MEDS: PANTOPRAZOLE 40MG VIAL (C9113 PER 1) IV SCH ×2 (09:00→20:01)
[2021-10-09] MEDS: THIAMINE 100 MG TAB PO SCH (09:00)
[2021-10-09] MEDS: MUPIROCIN 2% OINT 22 GM TUBE TOP SCH ×2 (09:01→20:01)
[2021-10-09] MEDS: VANICREAM MOISTURIZING SKIN CREAM 113GM TUBE TOP SCH ×2 (09:01→20:02)
[2021-10-09] MEDS: MICAFUNGIN SODIUM 100 MG in D5W MINI-BAG PLUS 100 ML IV SCH (11:09)
[2021-10-09] MEDS: cefTRIAXone SOD 2 GM in D5W MINI-BAG PLUS 50 ML IV SCH (12:09)
[2021-10-09] MEDS: diphenhydrAMINE 50MG/ML VIAL (J1200) IV SCH ×2 (17:30→23:18)
[2021-10-09] MEDS ORDERED: FAT EMULSION IV 20% 500 ML IV SCH (18:00)
[2021-10-09] MEDS ORDERED: [UNRECOGNIZED DRUG - OTHER] IV SCH ×10 (18:00)
[2021-10-09] MEDS ORDERED: SODIUM ACETATE IV SCH ×10 (18:00)
[2021-10-09] MEDS ORDERED: SODIUM CHLORIDE IV SCH ×10 (18:00)
[2021-10-10] VITALS (23 sets, daily range): BP systolic 94–145; BP diastolic 52–89
[2021-10-10] MEDS: propofoL 1,000 MG in IV 1 EA IV SCH ×5 (02:21→20:24)
[2021-10-10] MEDS: SODIUM BICARBONATE 100 MEQ in D5W 1,000 ML IV SCH ×4 (03:59→22:54)
[2021-10-10 04:29] LABS: HEMATOCRIT 30.2 % (36.0-47.0); HEMOGLOBIN 10.9 g/dl (12.0-15.5); MEAN CORPUSCULAR HEMOGLOBIN 34.4 pg (27.0-33.0); MEAN CORPUSCULAR HGB CONC 36.1 g/dl (32.0-36.5); MEAN CORPUSCULAR VOLUME 95.3 fl (80.0-96.0); PLATELET COUNT, AUTOMATED 106 10^3/uL (150-450); RED BLOOD COUNT 3.17 10^6/uL (4.00-5.40); WHITE BLOOD COUNT 20.6 10^3/uL (4.0-10.0)
[2021-10-10 04:56] LABS: EOSINOPHILS 1 % (0-3); LYMPHOCYTES 9 % (16-44); METAMYELOCYTES 6 % (0-0); MONOCYTES 2 % (0-5); NEUTROPHILS 70 % (28-66)
[2021-10-10 04:57] LABS: ANISOCYTOSIS 1+
[2021-10-10 04:58] LABS: PLATELET ESTIMATE DECREASED (NORMAL); TOXIC VACUOLATION 1+
[2021-10-10] MEDS: HumaLOG INSULIN (NovoLOG) PER UNIT SC SCH ×4 (05:02→23:08)
[2021-10-10] MEDS: LEVOTHYROXINE 25MCG TABLET (0.025MG) PO SCH (05:02)
[2021-10-10] MEDS: SUCRALFATE SUSP 1GM/10ML UD NG SCH ×4 (05:02→23:03)
[2021-10-10] MEDS: diphenhydrAMINE 50MG/ML VIAL (J1200) IV SCH ×4 (05:02→23:03)
[2021-10-10] MEDS: D5W 1,000 ML IV SCH (05:15)
[2021-10-10 05:51] LABS: ALBUMIN 0.3 GM/DL (3.2-5.2); ALT/SGPT 28 U/L (12-78); BLOOD UREA NITROGEN 8 MG/DL (7-18); CALCIUM LEVEL 6.8 MG/DL (8.5-10.1); CARBON DIOXIDE LEVEL 19 MEQ/L (21-32); CHLORIDE LEVEL 99 MEQ/L (98-107); CHOLESTEROL LEVEL 189 MG/DL (< 200); CPK CREATINE PHOSPHOKINASE 86 U/L (26-192); CREATININE FOR GFR 0.57 MG/DL (0.55-1.30); GLOMERULAR FILTRATION RATE > 60.0 (>58); GLUCOSE, FASTING 157 MG/DL (70-100); LDH LACTATE DEHYDROGENASE 614 U/L (84-246); PHOSPHORUS LEVEL 2.8 MG/DL (2.5-4.9); POTASSIUM SERUM 4.2 MEQ/L (3.5-5.1); SODIUM LEVEL 130 MEQ/L (136-145); TOTAL PROTEIN 3.3 GM/DL (6.4-8.2); TRIGLYCERIDES LEVEL 883 MG/DL (<150)
[2021-10-10 05:52] LABS: ABG BASE EXCESS -8.3 (-2.0-2.0); ABG O2 SATURATION 98.5 % (95.0-99.0); ABG PARTIAL PRESSURE CO2 33.9 mmHg (35.0-45.0); ABG PARTIAL PRESSURE O2 118.4 mmHg (75.0-100.0); ABG STANDARD HCO3 17.8 MEQ/L (22.0-26.0); ABG pH (ARTERIAL) 7.317 UNITS (7.350-7.450)
[2021-10-10] MEDS: CHLORHEXIDINE GLUCONATE 0.12 % 15ML UDC (PERIDEX ORAL RINSE) MT SCH ×2 (09:14→20:15)
[2021-10-10] MEDS: PANTOPRAZOLE 40MG VIAL (C9113 PER 1) IV SCH ×2 (09:15→20:15)
[2021-10-10] MEDS: POTASSIUM CHLORIDE 10% LIQ 20 MEQ/15 ML UDC PO SCH ×2 (09:15→20:15)
[2021-10-10] MEDS: LACTOBACILLUS ACIDOPHILUS CAP (BACID) PO SCH (09:15)
[2021-10-10] MEDS: FIBER-CON 625 MG TAB PO SCH ×2 (09:15→20:16)
[2021-10-10] MEDS: MUPIROCIN 2% OINT 22 GM TUBE TOP SCH ×2 (09:16→20:17)
[2021-10-10] MEDS: THIAMINE 100 MG TAB PO SCH (09:16)
[2021-10-10] MEDS: OLANZapine ORAL DISINTEGRATING TAB 5MG PO SCH ×2 (09:16→20:15)
[2021-10-10] MEDS: VANICREAM MOISTURIZING SKIN CREAM 113GM TUBE TOP SCH ×2 (09:17→20:17)
[2021-10-10] MEDS: HYDROXYCHLOROQUINE 200 MG TAB NG SCH ×2 (09:35→20:15)
[2021-10-10] MEDS: MICAFUNGIN SODIUM 100 MG in D5W MINI-BAG PLUS 100 ML IV SCH (11:04)
[2021-10-10] MEDS: cefTRIAXone SOD 2 GM in D5W MINI-BAG PLUS 50 ML IV SCH (12:19)
[2021-10-10 16:33] LABS: HEMATOCRIT 28.1 % (36.0-47.0); HEMOGLOBIN 10.1 g/dl (12.0-15.5); MEAN CORPUSCULAR HEMOGLOBIN 33.9 pg (27.0-33.0); MEAN CORPUSCULAR HGB CONC 35.9 g/dl (32.0-36.5); MEAN CORPUSCULAR VOLUME 94.3 fl (80.0-96.0); RED BLOOD COUNT 2.98 10^6/uL (4.00-5.40); WHITE BLOOD COUNT 19.4 10^3/uL (4.0-10.0)
[2021-10-10 17:15] LABS: ANISOCYTOSIS 1+; ATYPICAL LYMPH 4 % (0-5); BASOPHILS 1 % (0-1); BLAST CELLS 1 % (0-0); EOSINOPHILS 7 % (0-3); LYMPHOCYTES 9 % (16-44); MONOCYTES 1 % (0-5); NEUTROPHILS 60 % (28-66); PLATELET CLUMPS LARGE AMT; PLATELET ESTIMATE INVALID (NORMAL)
[2021-10-10 17:46] LABS: ALBUMIN 0.4 GM/DL (3.2-5.2); ALT/SGPT 31 U/L (12-78); BILIRUBIN,TOTAL 0.7 MG/DL (0.2-1.0); BLOOD UREA NITROGEN 8 MG/DL (7-18); CALCIUM LEVEL 6.9 MG/DL (8.5-10.1); CARBON DIOXIDE LEVEL 21 MEQ/L (21-32); CHLORIDE LEVEL 99 MEQ/L (98-107); CHOLESTEROL LEVEL 185 MG/DL (< 200); CPK CREATINE PHOSPHOKINASE 59 U/L (26-192); CREATININE FOR GFR 0.57 MG/DL (0.55-1.30); GLOMERULAR FILTRATION RATE > 60.0 (>58); GLUCOSE, FASTING 115 MG/DL (70-100); LDH LACTATE DEHYDROGENASE 422 U/L (84-246); PHOSPHORUS LEVEL 2.8 MG/DL (2.5-4.9); POTASSIUM SERUM 4.2 MEQ/L (3.5-5.1); SODIUM LEVEL 128 MEQ/L (136-145); TOTAL PROTEIN 3.9 GM/DL (6.4-8.2); TRIGLYCERIDES LEVEL 791 MG/DL (<150)
[2021-10-10] MEDS ORDERED: SODIUM CHLORIDE IV SCH ×8 (18:00)
[2021-10-10] MEDS ORDERED: SODIUM ACETATE IV SCH ×8 (18:00)
[2021-10-10] MEDS ORDERED: [UNRECOGNIZED DRUG - OTHER] IV SCH ×8 (18:00)
[2021-10-10] MEDS ORDERED: FAT EMULSION IV 20% 500 ML IV SCH (18:00)
[2021-10-11] VITALS (24 sets, daily range): BP systolic 95–149; BP diastolic 59–90
[2021-10-11] MEDS: propofoL 1,000 MG in IV 1 EA IV SCH ×7 (00:39→21:28)
[2021-10-11 03:49] LABS: HEMATOCRIT 25.7 % (36.0-47.0); HEMOGLOBIN 9.2 g/dl (12.0-15.5); MEAN CORPUSCULAR HEMOGLOBIN 33.5 pg (27.0-33.0); MEAN CORPUSCULAR HGB CONC 35.8 g/dl (32.0-36.5); MEAN CORPUSCULAR VOLUME 93.5 fl (80.0-96.0); RED BLOOD COUNT 2.75 10^6/uL (4.00-5.40); WHITE BLOOD COUNT 17.7 10^3/uL (4.0-10.0)
[2021-10-11 04:10] LABS: PLATELET COUNT, AUTOMATED 88 10^3/uL (150-450)
[2021-10-11 04:19] LABS: ANISOCYTOSIS 2+; ATYPICAL LYMPH 7 % (0-5); EOSINOPHILS 3 % (0-3); LYMPHOCYTES 14 % (16-44); MONOCYTES 4 % (0-5); NEUTROPHILS 68 % (28-66); PLATELET ESTIMATE DECREASED (NORMAL); TOXIC VACUOLATION 1+
[2021-10-11 04:20] LABS: POIKILOCYTOSIS 1+; POLYCHROMASIA 1+
[2021-10-11] MEDS: diphenhydrAMINE 50MG/ML VIAL (J1200) IV SCH ×4 (05:13→22:48)
[2021-10-11] MEDS: SUCRALFATE SUSP 1GM/10ML UD NG SCH ×4 (05:13→22:46)
[2021-10-11] MEDS: LEVOTHYROXINE 25MCG TABLET (0.025MG) PO SCH (05:13)
[2021-10-11 05:37] LABS: ALBUMIN 0.4 GM/DL (3.2-5.2); ALT/SGPT 32 U/L (12-78); BILIRUBIN,TOTAL 0.8 MG/DL (0.2-1.0); BLOOD UREA NITROGEN 7 MG/DL (7-18); CALCIUM LEVEL 6.3 MG/DL (8.5-10.1); CARBON DIOXIDE LEVEL 23 MEQ/L (21-32); CHLORIDE LEVEL 97 MEQ/L (98-107); CHOLESTEROL LEVEL 179 MG/DL (< 200); CPK CREATINE PHOSPHOKINASE 39 U/L (26-192); CREATININE FOR GFR 0.51 MG/DL (0.55-1.30); GLOMERULAR FILTRATION RATE > 60.0 (>58); GLUCOSE, FASTING 102 MG/DL (70-100); LDH LACTATE DEHYDROGENASE 305 U/L (84-246); PHOSPHORUS LEVEL 2.9 MG/DL (2.5-4.9); SODIUM LEVEL 128 MEQ/L (136-145); TOTAL PROTEIN 3.1 GM/DL (6.4-8.2); TRIGLYCERIDES LEVEL 869 MG/DL (<150)
[2021-10-11] MEDS: HumaLOG INSULIN (NovoLOG) PER UNIT SC SCH ×4 (05:42→23:54)
[2021-10-11 05:49] LABS: ABG HCO3 20.7 MEQ/L (22.0-26.0); ABG O2 SATURATION 97.7 % (95.0-99.0); ABG PARTIAL PRESSURE O2 102.1 mmHg (75.0-100.0); ABG STANDARD HCO3 21.2 MEQ/L (22.0-26.0); ABG TOTAL CO2 21.8 MEQ/L (22.0-29.0); ABG pH (ARTERIAL) 7.378 UNITS (7.350-7.450)
[2021-10-11] MEDS: SODIUM BICARBONATE 100 MEQ in D5W 1,000 ML IV SCH (06:17)
[2021-10-11] MEDS: FIBER-CON 625 MG TAB PO SCH (08:36)
[2021-10-11] MEDS: PANTOPRAZOLE 40MG VIAL (C9113 PER 1) IV SCH ×2 (09:33→22:46)
[2021-10-11] MEDS: LACTOBACILLUS ACIDOPHILUS CAP (BACID) PO SCH (09:33)
[2021-10-11] MEDS: THIAMINE 100 MG TAB PO SCH (09:34)
[2021-10-11] MEDS: VANICREAM MOISTURIZING SKIN CREAM 113GM TUBE TOP SCH ×2 (09:34→22:47)
[2021-10-11] MEDS: OLANZapine ORAL DISINTEGRATING TAB 5MG PO SCH ×2 (09:34→22:46)
[2021-10-11] MEDS: HYDROXYCHLOROQUINE 200 MG TAB NG SCH ×2 (09:34→22:47)
[2021-10-11] MEDS: POTASSIUM CHLORIDE 10% LIQ 20 MEQ/15 ML UDC PO SCH ×2 (09:34→22:46)
[2021-10-11] MEDS: CHLORHEXIDINE GLUCONATE 0.12 % 15ML UDC (PERIDEX ORAL RINSE) MT SCH ×2 (09:35→22:45)
[2021-10-11] MEDS: MUPIROCIN 2% OINT 22 GM TUBE TOP SCH ×2 (09:35→22:47)
[2021-10-11 11:15] LABS: MAGNESIUM LEVEL 1.6 MG/DL (1.8-2.4)
[2021-10-11] MEDS: MICAFUNGIN SODIUM 100 MG in D5W MINI-BAG PLUS 100 ML IV SCH (11:20)
[2021-10-11] MEDS: cefTRIAXone SOD 2 GM in D5W MINI-BAG PLUS 50 ML IV SCH (13:13)
[2021-10-11 16:48] LABS: BLOOD UREA NITROGEN 9 MG/DL (7-18); CALCIUM LEVEL 6.5 MG/DL (8.5-10.1); CARBON DIOXIDE LEVEL 23 MEQ/L (21-32); CHLORIDE LEVEL 97 MEQ/L (98-107); GLOMERULAR FILTRATION RATE > 60.0 (>58); GLUCOSE, FASTING 68 MG/DL (70-100); MAGNESIUM LEVEL 2.2 MG/DL (1.8-2.4); POTASSIUM SERUM 4.5 MEQ/L (3.5-5.1); SODIUM LEVEL 128 MEQ/L (136-145)
[2021-10-11] MEDS ORDERED: [UNRECOGNIZED DRUG - OTHER] IV SCH ×9 (18:00)
[2021-10-11] MEDS ORDERED: FAT EMULSION IV 20% 500 ML IV SCH (18:00)
[2021-10-11] MEDS ORDERED: SODIUM CHLORIDE IV SCH ×9 (18:00)
[2021-10-11] MEDS ORDERED: SODIUM ACETATE IV SCH ×9 (18:00)
[2021-10-11] MEDS: DEXTROSE 50% 50 ML SYRINGE IV PRN (18:06)
[2021-10-12] VITALS (34 sets, daily range): BP systolic 42–113; BP diastolic 21–82
[2021-10-12] MEDS: DEXTROSE 50% 50 ML SYRINGE IV PRN ×2 (00:12→12:47)
[2021-10-12] MEDS: D5W/0.9% SODIUM CHLORIDE 1,000 ML IV SCH ×2 (00:17→18:41)
[2021-10-12] MEDS: propofoL 1,000 MG in IV 1 EA IV SCH ×3 (01:18→18:29)
[2021-10-12] MEDS: MIDAZOLAM INJ 2MG/2ML VIAL (J2250 PER 1MG) IV PRN (04:18)
[2021-10-12] MEDS: HumaLOG INSULIN (NovoLOG) PER UNIT SC SCH ×2 (06:00→12:00)
[2021-10-12] MEDS: LEVOTHYROXINE 25MCG TABLET (0.025MG) PO SCH (06:00)
[2021-10-12] MEDS: diphenhydrAMINE 50MG/ML VIAL (J1200) IV SCH ×4 (06:01→23:26)
[2021-10-12] MEDS: SUCRALFATE SUSP 1GM/10ML UD NG SCH ×4 (06:02→23:26)
[2021-10-12 06:35] LABS: HEMATOCRIT 25.7 % (36.0-47.0); HEMOGLOBIN 8.7 g/dl (12.0-15.5); MEAN CORPUSCULAR HEMOGLOBIN 32.2 pg (27.0-33.0); MEAN CORPUSCULAR HGB CONC 33.9 g/dl (32.0-36.5); MEAN CORPUSCULAR VOLUME 95.2 fl (80.0-96.0); WHITE BLOOD COUNT 17.7 10^3/uL (4.0-10.0)
[2021-10-12 06:37] LABS: PLATELET COUNT, AUTOMATED 92 10^3/uL (150-450)
[2021-10-12 07:04] LABS: ALBUMIN 0.4 GM/DL (3.2-5.2); ALT/SGPT 37 U/L (12-78); BILIRUBIN,TOTAL 0.6 MG/DL (0.2-1.0); BLOOD UREA NITROGEN 10 MG/DL (7-18); CARBON DIOXIDE LEVEL 23 MEQ/L (21-32); CHLORIDE LEVEL 99 MEQ/L (98-107); CHOLESTEROL LEVEL 211 MG/DL (< 200); CPK CREATINE PHOSPHOKINASE 44 U/L (26-192); CREATININE FOR GFR 0.49 MG/DL (0.55-1.30); GLOMERULAR FILTRATION RATE > 60.0 (>58); GLUCOSE, FASTING 72 MG/DL (70-100); LDH LACTATE DEHYDROGENASE 271 U/L (84-246); PHOSPHORUS LEVEL 3.9 MG/DL (2.5-4.9); POTASSIUM SERUM 4.6 MEQ/L (3.5-5.1); SODIUM LEVEL 129 MEQ/L (136-145); TOTAL PROTEIN 3.9 GM/DL (6.4-8.2); TRIGLYCERIDES LEVEL 506 MG/DL (<150)
[2021-10-12 07:29] LABS: ATYPICAL LYMPH 1 % (0-5); BASOPHILS 3 % (0-1); EOSINOPHILS 1 % (0-3); LYMPHOCYTES 12 % (16-44); METAMYELOCYTES 3 % (0-0); MONOCYTES 3 % (0-5); MYELOCYTES 4 % (0-0); NEUTROPHILS 62 % (28-66)
[2021-10-12 07:36] LABS: ANISOCYTOSIS 1+; PLATELET ESTIMATE DECREASED (NORMAL)
[2021-10-12] MEDS: POTASSIUM CHLORIDE 10% LIQ 20 MEQ/15 ML UDC PO SCH (09:00)
[2021-10-12] MEDS: THIAMINE 100 MG TAB PO SCH (10:00)
[2021-10-12] MEDS: CHLORHEXIDINE GLUCONATE 0.12 % 15ML UDC (PERIDEX ORAL RINSE) MT SCH ×2 (10:00→21:00)
[2021-10-12] MEDS: MICAFUNGIN SODIUM 100 MG in D5W MINI-BAG PLUS 100 ML IV SCH (10:00)
[2021-10-12] MEDS: LACTOBACILLUS ACIDOPHILUS CAP (BACID) PO SCH (10:00)
[2021-10-12] MEDS: PANTOPRAZOLE 40MG VIAL (C9113 PER 1) IV SCH ×2 (10:00→21:00)
[2021-10-12] MEDS: OLANZapine ORAL DISINTEGRATING TAB 5MG PO SCH ×2 (10:00→21:00)
[2021-10-12] MEDS: MUPIROCIN 2% OINT 22 GM TUBE TOP SCH ×2 (10:01→21:00)
[2021-10-12] MEDS: VANICREAM MOISTURIZING SKIN CREAM 113GM TUBE TOP SCH ×2 (10:01→21:00)
[2021-10-12] MEDS: HYDROXYCHLOROQUINE 200 MG TAB NG SCH ×2 (10:02→21:00)
[2021-10-12] MEDS: cefTRIAXone SOD 2 GM in D5W MINI-BAG PLUS 50 ML IV SCH (12:42)
[2021-10-12] MEDS ORDERED: [UNRECOGNIZED DRUG - OTHER] IV SCH ×7 (18:00)
[2021-10-12] MEDS ORDERED: FAT EMULSION IV 20% 500 ML IV SCH (18:00)
[2021-10-12] MEDS ORDERED: HumaLOG INSULIN (NovoLOG) PER UNIT SC SCH (18:00)
[2021-10-12] MEDS ORDERED: SODIUM CHLORIDE IV SCH ×7 (18:00)
[2021-10-12] MEDS ORDERED: SODIUM ACETATE IV SCH ×7 (18:00)
[2021-10-12] MEDS ORDERED: NS 1,000 ML IV SCH (18:30)
[2021-10-12] MEDS: MORPHINE 2 MG/ML 1ML VIAL (J2270) IV PRN ×3 (19:44→22:57)
[2021-10-13] MEDS: MORPHINE 2 MG/ML 1ML VIAL (J2270) IV PRN ×6 (02:48→21:48)
[2021-10-13] MEDS: LEVOTHYROXINE 25MCG TABLET (0.025MG) PO SCH (04:00)
[2021-10-13] MEDS: SUCRALFATE SUSP 1GM/10ML UD NG SCH (04:00)
[2021-10-13] MEDS: diphenhydrAMINE 50MG/ML VIAL (J1200) IV SCH (06:00)
[2021-10-13] MEDS ORDERED: diphenhydrAMINE 50MG/ML VIAL (J1200) IV PRN (09:00)
[2021-10-13] MEDS ORDERED: LORazepam 2 MG/ML VIAL IV PRN (09:00)
[2021-10-13] MEDS: MUPIROCIN 2% OINT 22 GM TUBE TOP SCH ×2 (09:00→21:48)
[2021-10-13] MEDS: CHLORHEXIDINE GLUCONATE 0.12 % 15ML UDC (PERIDEX ORAL RINSE) MT SCH ×2 (09:00→21:00)
[2021-10-13] MEDS: VANICREAM MOISTURIZING SKIN CREAM 113GM TUBE TOP SCH ×2 (11:55→21:48)
[2021-10-14] MEDS: MORPHINE 2 MG/ML 1ML VIAL (J2270) IV PRN ×2 (04:35→15:14)
[2021-10-14] MEDS ORDERED: MORPHINE 10MG/0.5ML ORAL CONCENTRATE SOLUTION U/D SL PRN (04:40)
[2021-10-14] MEDS: CHLORHEXIDINE GLUCONATE 0.12 % 15ML UDC (PERIDEX ORAL RINSE) MT SCH ×2 (09:00→09:05)
[2021-10-14] MEDS: VANICREAM MOISTURIZING SKIN CREAM 113GM TUBE TOP SCH ×2 (09:00→09:05)
[2021-10-14] MEDS: MUPIROCIN 2% OINT 22 GM TUBE TOP SCH ×2 (09:00→09:06)
== END 2021-10-14 18:30 | disposition expired | DRG 640 ==
LOC: M MS5PR 09:55 → M PCU 09-18 15:50 → M MSPAV 10-13 22:00
PROVIDERS: ADMIT Family Medicine; ATTEND Internal Medicine
PROC: 02HV33Z Insertion of Infusion Device into Superior Vena Cava, Percutaneous Approach (ICD-10-PCS; 2021-09-20)
PROC: 5A1955Z Respiratory Ventilation, Greater than 96 Consecutive Hours (ICD-10-PCS; principal; 2021-09-24)
PROC: 0BC48ZZ Extirpation of Matter from Right Upper Lobe Bronchus, Via Natural or Artificial Opening Endoscopic (ICD-10-PCS; 2021-10-04)
DX: E86.0 Dehydration (principal); R65.20 Severe sepsis without septic shock; J69.0 Pneumonitis due to inhalation of food and vomit; E43 Unspecified severe protein-calorie malnutrition; A41.01 Sepsis due to Methicillin susceptible Staphylococcus aureus; G93.41 Metabolic encephalopathy; N39.0 Urinary tract infection, site not specified; F20.2 Catatonic schizophrenia; J81.1 Chronic pulmonary edema; D68.9 Coagulation defect, unspecified; K92.2 Gastrointestinal hemorrhage, unspecified; B49 Unspecified mycosis; K90.9 Intestinal malabsorption, unspecified; E16.2 Hypoglycemia, unspecified; I10 Essential (primary) hypertension; F79 Unspecified intellectual disabilities; J45.909 Unspecified asthma, uncomplicated; M06.9 Rheumatoid arthritis, unspecified; M35.00 Sjogren syndrome, unspecified; F31.9 Bipolar disorder, unspecified; E87.2 Acidosis; E87.6 Hypokalemia; D64.9 Anemia, unspecified; D69.6 Thrombocytopenia, unspecified; L89.622 Pressure ulcer of left heel, stage 2; E88.09 Other disorders of plasma-protein metabolism, not elsewhere classified; M79.7 Fibromyalgia; Z79.899 Other long term (current) drug therapy; Z88.2 Allergy status to sulfonamides; Z88.8 Allergy status to other drugs, medicaments and biological substances; Z91.040 Latex allergy status